=== PATIENT | male | born 1970 | race Caucasian/White ===

== ENCOUNTER → 2016-08-16 | Outpatient (REF) | payer MEDICARE, MEDICAID ==
[~2016-08-16] MED LIST: /ESOM40CA OR; /GLIM4TA OR; /LOR25TA OR; ANDROGEL 1% TOP; ANDROGEL TOP; ASPI81TA83 OR; CARV12.5 OR; CRES20TA OR; FLEXERIL PO; HUMUINJ SC; HUMULIN 70/30 SC; JANUVIA PO; KLOR10TA OR; LASI20TA OR; LISI2.5T OR; LOVAZA PO; METF500T4 OR; NATEGLINIDE PO; NEUR300C OR; NIAS500T2 OR; NITRO STAT SL; OMEP20TA7 OR; PLAV75TA2 OR; PRO AIR INHALER INH; PROZ20CA OR; SENN15TA2 PO; TIZA4TAB OR; TRIC145T19 OR
[2016-08-16 13:50] LABS: ANION GAP 11 MEQ/L (8-16); BLOOD UREA NITROGEN 18 MG/DL (7-18); CALCIUM LEVEL 9.8 MG/DL (8.5-10.1); CARBON DIOXIDE LEVEL 24 MEQ/L (21-32); CHLORIDE LEVEL 103 MEQ/L (98-107); CREATININE FOR GFR 0.99 MG/DL (0.70-1.30); FREE T4 0.85 NG/DL (0.76-1.46); GLOMERULAR FILTRATION RATE > 60.0 (>60); GLUCOSE, FASTING 221 MG/DL (70-105); POTASSIUM SERUM 4.8 MEQ/L (3.5-5.1); SODIUM LEVEL 138 MEQ/L (136-145)
[2016-08-16 13:56] LABS: PROLACTIN 2.9 NG/ML (2.1-17.7)
[2016-08-16 13:57] LABS: FOLLICLE STIMULATING HORMONE 19.5 mIU/mL (1.4-18.1); LUTEINIZING HORMONE 3.4 mIU/mL (1.5-9.3)
== END ==
LOC: M SFHCPLAZ 10:57
PROVIDERS: ATTEND Physician Assistant Medical
DX: R23.2 Flushing (principal); E11.69 Type 2 diabetes mellitus with other specified complication
CPT/HCPCS: 36415; 80048; 83001; 83002; 83036; 84146; 84439; 84443; G0463

== ENCOUNTER 2016-08-29 14:07 | Outpatient (RCR) | payer MEDICARE, MEDICAID | END 2016-09-06 | LOC: M CR 14:07 | PROVIDERS: ATTEND Internal Medicine Cardiovascular Disease | DX: Z98.61 Coronary angioplasty status (principal) ==

== ENCOUNTER 2016-09-07 09:17 | Outpatient (RCR) | payer MEDICARE, MEDICAID ==
[2016-10-05] MEDS ORDERED: MAGN400C2 PO (10:40)
[2016-10-05] MEDS ORDERED: CRES40TA PO (10:40)
[2016-10-05] MEDS ORDERED: VASC1CAP2 PO (10:40)
[2016-10-05] MEDS ORDERED: OXYB10TA PO (10:40)
[2016-10-05] MEDS ORDERED: flomax (10:40)
[2016-10-05] MEDS ORDERED: LANTINJ4 SC (10:42)
== END 2016-10-04 ==
LOC: M CR 09:17
PROVIDERS: ATTEND Internal Medicine Cardiovascular Disease
DX: Z98.61 Coronary angioplasty status (principal)

== ENCOUNTER → 2016-09-26 | Outpatient (REF) | payer MEDICARE, MEDICAID | LOC: M SFHCPLAZ 08:46 | PROVIDERS: ATTEND Physician Assistant Medical | DX: E11.69 Type 2 diabetes mellitus with other specified complication (principal) ==

== ENCOUNTER 2016-10-05 10:06 | Emergency (ER) | payer MEDICARE, MEDICAID ==
[~2016-10-05] VITALS: Ht 175.3 cm; Wt 84.4 kg
[2016-10-05] MEDS ORDERED: VASC1CAP2 PO (10:40)
[2016-10-05] MEDS ORDERED: MAGN400C2 PO (10:40)
[2016-10-05] MEDS ORDERED: OXYB10TA PO (10:40)
[2016-10-05] MEDS ORDERED: flomax (10:40)
[2016-10-05] MEDS ORDERED: CRES40TA PO (10:40)
[2016-10-05] MEDS ORDERED: LANTINJ4 SC (10:42)
[2016-10-05 11:34] VITALS: BP 136/88
== END 2016-10-05 11:51 | disposition home or self-care (01) ==
LOC: M ED 11:44
DX: R51 Headache (principal); E11.9 Type 2 diabetes mellitus without complications; I10 Essential (primary) hypertension; J44.9 Chronic obstructive pulmonary disease, unspecified; I25.2 Old myocardial infarction; Z95.1 Presence of aortocoronary bypass graft; Z79.899 Other long term (current) drug therapy; Z79.82 Long term (current) use of aspirin; Z79.01 Long term (current) use of anticoagulants; Z79.4 Long term (current) use of insulin; Z79.84 Long term (current) use of oral hypoglycemic drugs; Z91.012 Allergy to eggs; F17.210 Nicotine dependence, cigarettes, uncomplicated

== ENCOUNTER → 2016-10-13 | Outpatient (REF) | payer MEDICARE, MEDICAID ==
[~2016-10-13] MED LIST changes: +CRES40TA PO; +LANTINJ4 SC; +MAGN400C2 PO; +OXYB10TA PO; +VASC1CAP2 PO; +flomax
[2016-10-13 15:21] LABS: BASO # 0.1 K/mm3 (0.0-0.2); BASO % 0.8 % (0.0-1.0); EOS # 0.5 K/mm3 (0.0-0.50); EOS % 4.3 % (0.0-3.0); LARGE UNSTAINED CELL # 0.2 K/mm3 (0.0-0.4); LARGE UNSTAINED CELL % 1.6 % (0.0-4.0); LYMPH # 2.5 K/mm3 (1.5-4.5); LYMPH % 22.5 % (24.0-44.0); MEAN CORPUSCULAR HGB CONC 35.1 g/dl (32.0-36.5); MEAN CORPUSCULAR VOLUME 85.4 fl (80.0-96.0); MONO # 0.6 K/mm3 (0.0-0.8); NEUTROPHILS # 7.3 K/mm3 (1.8-7.7); NEUTROPHILS % 65.7 % (36.0-66.0); PLATELET COUNT, AUTOMATED 270 k/mm3 (150-450); RED CELL DISTRIBUTION WIDTH 12.6 % (11.5-14.5); WHITE BLOOD COUNT 11.1 K/mm3 (4.0-10.0)
[2016-10-13 15:48] LABS: ANION GAP 10 MEQ/L (8-16); BLOOD UREA NITROGEN 13 MG/DL (7-18); CALCIUM LEVEL 9.1 MG/DL (8.5-10.1); CARBON DIOXIDE LEVEL 26 MEQ/L (21-32); CHLORIDE LEVEL 103 MEQ/L (98-107); CREATININE FOR GFR 0.94 MG/DL (0.70-1.30); GLOMERULAR FILTRATION RATE > 60.0 (>60); GLUCOSE, FASTING 269 MG/DL (70-105); POTASSIUM SERUM 4.4 MEQ/L (3.5-5.1); SODIUM LEVEL 139 MEQ/L (136-145)
== END ==
LOC: M SFHCPLAZ 13:06
PROVIDERS: ATTEND Physician Assistant Medical
DX: N52.9 Male erectile dysfunction, unspecified (principal)

== ENCOUNTER → 2016-11-23 | Outpatient (REF) | payer MEDICARE, MEDICAID ==
[2016-11-23 16:11] LABS: BASO # 0.2 K/mm3 (0.0-0.2); BASO % 1.4 % (0.0-1.0); EOS # 0.5 K/mm3 (0.0-0.50); EOS % 3.9 % (0.0-3.0); LARGE UNSTAINED CELL # 0.2 K/mm3 (0.0-0.4); LARGE UNSTAINED CELL % 1.2 % (0.0-4.0); LYMPH % 30.3 % (24.0-44.0); MEAN CORPUSCULAR HEMOGLOBIN 29.9 pg (27.0-33.0); MEAN CORPUSCULAR HGB CONC 34.5 g/dl (32.0-36.5); MEAN CORPUSCULAR VOLUME 86.9 fl (80.0-96.0); MONO # 0.9 K/mm3 (0.0-0.8); MONO % 7.1 % (0.0-5.0); NEUTROPHILS # 7.1 K/mm3 (1.8-7.7); PLATELET COUNT, AUTOMATED 297 k/mm3 (150-450); RED CELL DISTRIBUTION WIDTH 12.9 % (11.5-14.5); WHITE BLOOD COUNT 12.6 K/mm3 (4.0-10.0)
[2016-11-23 16:24] LABS: ANION GAP 8 MEQ/L (8-16); BLOOD UREA NITROGEN 18 MG/DL (7-18); CALCIUM LEVEL 9.4 MG/DL (8.5-10.1); CARBON DIOXIDE LEVEL 25 MEQ/L (21-32); CHLORIDE LEVEL 103 MEQ/L (98-107); CREATININE FOR GFR 1.03 MG/DL (0.70-1.30); GLOMERULAR FILTRATION RATE > 60.0 (>60); GLUCOSE, FASTING 90 MG/DL (70-105); POTASSIUM SERUM 4.4 MEQ/L (3.5-5.1); SODIUM LEVEL 136 MEQ/L (136-145)
[2016-11-23 18:09] LABS: ALBUMIN/GLOBULIN RATIO 1.25 (1.00-1.93); ALKALINE PHOSPHATASE 97 U/L (45-117); ALT/SGPT 19 U/L (12-78); AMYLASE 37 U/L (25-115); AST/SGOT 6 U/L (15-37); BILIRUBIN,DIRECT < 0.1 MG/DL (0.0-0.2); BILIRUBIN,TOTAL 0.4 MG/DL (0.2-1.0); TOTAL PROTEIN 7.2 GM/DL (6.4-8.2)
== END ==
LOC: M SFHCPLAZ 14:18
PROVIDERS: ATTEND Physician Assistant Medical
DX: D72.829 Elevated white blood cell count, unspecified (principal); R10.9 Unspecified abdominal pain

== ENCOUNTER → 2016-11-23 | Outpatient (CLI) | payer MEDICARE, MEDICAID ==
[~2016-11-23] MED LIST changes: +AMIT10TA PO; +ASPI1TAB PO; +CARV12.5 PO; +DEXI60CA PO; +FENO145T PO; +FLOM5CAP PO; +GABA-282 PO; +INSUHUMDS SC; +INSULANT SC; +LISI2.5T3 PO; +MAGN400T5 PO; +MELO15TA4 PO; +METF1000 PO; +METF500T PO; -METF500T4 OR; +METF500T4 PO; +NICO21PAT TD; +PLAV75TA38 PO; -PROZ20CA OR; +PROZ20CA PO; +PROZ40CA PO; +TOPA25TA10 PO; -flomax; +flomax PO
--- NOTE | 2016-11-23 15:41 | REP ---
CT study of the abdomen and pelvis without IV or oral contrast: Renal stone protocol. History: Left-sided flank pain. No comparison CT study. CT findings: Preliminary sand screener radiograph shows pacemaker leads in the heart. The bowel gas pattern is normal. The lung bases are clear on axial CT images. There is no evidence of pleural effusion or upper abdominal ascites. The liver and the spleen are normal in size and homogeneous in texture. No adrenal lesion is seen on either side. The pancreas and gallbladder are unremarkable. Normal caliber aorta is seen with moderate vascular calcification. There is no evidence of hydronephrosis or intrarenal calculus in either kidney. No mass or obvious cyst is seen. No retroperitoneal mass or adenopathy is observed. There is evidence of a tiny appendicolith in an otherwise normal air-filled appendix without inflammation or dilation. Seminal vesicles, prostate, and urinary bladder are unremarkable. There is a right inguinal hernia transmitting a moderate amount of right lower quadrant abdominal fat. The tip of the cecum is at the upper margin of the dilated inguinal canal. Small and large intestinal bowel loops are otherwise unremarkable. Bone window settings show no bony destructive lesion. Impression: 1. No urinary tract calculus seen. 2. Right inguinal hernia transmitting abdominal fat into the scrotum. 3. Small appendicolith in an otherwise normal appendix. 4. Otherwise unremarkable CT study abdomen and pelvis. Signed by Everett Kent MD 11/23/2016 05:05 P
== END ==
LOC: M RAD 14:58
PROVIDERS: ATTEND Physician Assistant Medical
DX: K40.90 Unilateral inguinal hernia, without obstruction or gangrene, not specified as recurrent (principal); R10.9 Unspecified abdominal pain; D72.829 Elevated white blood cell count, unspecified
CPT/HCPCS: 36415; 74176; 80048; 80076; 81001; 82150; 83690; 85025; G0463

== ENCOUNTER 2016-11-28 15:08 | Inpatient (IN) | payer MEDICARE, MEDICAID ==
[~2016-11-28] VITALS: Ht 175.3 cm; Wt 83.8 kg
[2016-11-28] MEDS: ROSUVASTATIN 10 MG TAB (CRESTOR) PO SCH
[~2016-11-28 15:08] MED LIST changes: -AMIT10TA PO; -ASPI1TAB PO; -CARV12.5 PO; -DEXI60CA PO; -FENO145T PO; -FLOM5CAP PO; -GABA-282 PO; -INSUHUMDS SC; -INSULANT SC; -LISI2.5T3 PO; -MAGN400T5 PO; -MELO15TA4 PO; -METF1000 PO; -METF500T PO; -NICO21PAT TD; -PLAV75TA38 PO; -PROZ40CA PO; -TOPA25TA10 PO
[2016-11-28] MEDS ORDERED: DEXI60CA PO ×2 (15:32→18:15)
--- NOTE | 2016-11-28 16:44 | REP ---
CT HEAD WITHOUT CONTRAST: HISTORY: Right sided headaches. COMPARISON: 07/13/2016, which showed volume loss. Today's examination shows no change in the appearance of the brain when compared to the noncontrast enhanced portion of the last exam. Once again, there is frontal volume loss, status quo. The ventricles and sulci are unchanged. There is no shift of the midline structures. There is no evidence an acute intracranial hemorrhagic or nonhemorrhagic event. There is no skull fracture. The imaged paranasal sinuses and mastoid air cells are clear. IMPRESSION: Stable examination from 07/13/2016. Signed by Wesley Raymond DO 11/29/2016 09:33 A
[2016-11-28] MEDS ORDERED: NS 1,000 ML IV ONE (17:00)
[2016-11-28 17:08] LABS: BASO # 0.1 K/mm3 (0.0-0.2); EOS # 0.4 K/mm3 (0.0-0.50); EOS % 5.2 % (0.0-3.0); LARGE UNSTAINED CELL # 0.1 K/mm3 (0.0-0.4); LARGE UNSTAINED CELL % 1.6 % (0.0-4.0); LYMPH # 2.6 K/mm3 (1.5-4.5); LYMPH % 31.8 % (24.0-44.0); MEAN CORPUSCULAR HEMOGLOBIN 30.5 pg (27.0-33.0); MEAN CORPUSCULAR HGB CONC 34.3 g/dl (32.0-36.5); MEAN CORPUSCULAR VOLUME 88.7 fl (80.0-96.0); MONO # 0.5 K/mm3 (0.0-0.8); MONO % 6.5 % (0.0-5.0); NEUTROPHILS # 4.4 K/mm3 (1.8-7.7); PLATELET COUNT, AUTOMATED 238 k/mm3 (150-450); RED CELL DISTRIBUTION WIDTH 12.8 % (11.5-14.5); WHITE BLOOD COUNT 8.2 K/mm3 (4.0-10.0)
[2016-11-28] MEDS ORDERED: TOPIRAMATE (TopAMAX) 25 MG TAB PO ONE (17:15)
[2016-11-28] MEDS ORDERED: ONDANSETRON 4MG/2ML VIAL (J2405) IV ONE (17:15)
[2016-11-28] MEDS ORDERED: MORPHINE 4 MG/ML 1ML SYRINGE IV ONE (17:15)
[2016-11-28] MEDS ORDERED: FENO145T PO (18:06)
[2016-11-28] MEDS ORDERED: PLAV75TA38 PO (18:06)
[2016-11-28] MEDS ORDERED: CARV12.5 PO (18:06)
[2016-11-28] MEDS ORDERED: FLOM5CAP PO (18:06)
[2016-11-28] MEDS ORDERED: LISI2.5T3 PO (18:06)
[2016-11-28] MEDS ORDERED: MAGN400T5 PO (18:10)
[2016-11-28] MEDS ORDERED: GABA-282 PO (18:10)
[2016-11-28] MEDS ORDERED: ASPI1TAB PO (18:10)
[2016-11-28] MEDS ORDERED: MELO15TA4 PO (18:10)
[2016-11-28] MEDS ORDERED: METF500T PO (18:10)
[2016-11-28] MEDS ORDERED: METF1000 PO (18:10)
[2016-11-28] MEDS ORDERED: VASC1CAP2 PO (18:15)
[2016-11-28] MEDS ORDERED: PROZ40CA PO (18:17)
[2016-11-28] MEDS ORDERED: INSULANT SC (18:24)
[2016-11-28] MEDS ORDERED: INSUHUMDS SC (18:24)
[2016-11-28] MEDS ORDERED: CRES40TA PO (18:24)
[2016-11-28] MEDS ORDERED: ACETAMINOPHEN TAB 650MG DOSE (2X325MG) PO PRN (19:45)
[2016-11-28] MEDS ORDERED: NICOTINE 14 MG/24 HR TRANSDERMAL TD PRN (19:45)
[2016-11-28] MEDS ORDERED: MORPHINE 2 MG/ML 1ML SYRINGE IV ONE (19:45)
[2016-11-28 20:20] LABS: ANION GAP 7 MEQ/L (8-16); BLOOD UREA NITROGEN 12 MG/DL (7-18); CALCIUM LEVEL 8.5 MG/DL (8.5-10.1); CARBON DIOXIDE LEVEL 26 MEQ/L (21-32); CHLORIDE LEVEL 104 MEQ/L (98-107); CREATININE FOR GFR 1.01 MG/DL (0.70-1.30); GLOMERULAR FILTRATION RATE > 60.0 (>60); GLUCOSE, FASTING 315 MG/DL (70-105); SODIUM LEVEL 137 MEQ/L (136-145)
[2016-11-28 20:30] LABS: VITAMIN B12 LEVEL 224 PG/ML (247-911)
[2016-11-28 23:00] VITALS: BP 149/85
--- NOTE | 2016-11-28 23:45 | HPE ---
DATE OF ADMISSION: 11/28/2016 REASON FOR ADMISSION: Headache and face numbness. HISTORY OF PRESENT ILLNESS: The patient is a 46-year-old male with past medical history significant for chronic obstructive pulmonary disease (COPD), diabetes, hypertension, hyperlipidemia, depression, presented to the emergency room complaining of right-sided headache with right-sided facial numbness and right foot draw up with ataxia. The patient stated symptoms started around yesterday. He was nauseated, had one episode of vomiting. This morning the patient continued to have right-sided headache with facial numbness and ataxia, which is new. The patient denies any slurred speech any other focal deficits. Denies any blurry vision or change in vision. In the emergency room, the patient underwent a CT scan of the head which was negative for any acute abnormality. Exam was stable when compared to CT scan done July 13, 2016. Neurologist, Dr. Smith was consulted and he agreed to see the patient in consultation. He recommended the patient be given Topamax 50 mg by mouth twice a day. Hospitalist was called for admission. REVIEW OF SYSTEMS: 12-point review of systems obtained all of which was negative except for those mentioned above. PAST MEDICAL HISTORY: Significant for: COPD. Type 2 diabetes. Hyperlipidemia. Hypertension. Depression. Coronary artery disease, status post stenting. PAST SURGICAL HISTORY: Significant for: Cardiac catheterization. Coronary artery bypass graft (CABG). Vasectomy. Left wrist surgery. 2:11 knee replacement. SOCIAL HISTORY: The patient smokes two packs per day for the past 25 years and drinks occasionally. ALLERGIES: No known drug allergies. HOME MEDICATIONS: Include: - aspirin 81 mg by mouth daily - carvedilol 12.5 mg by mouth twice a day - Plavix 75 mg by mouth daily - Dexilant 60 mg by mouth daily - fenofibrate 1.5 mg by mouth daily - Prozac 40 mg by mouth daily - gabapentin 300 mg by mouth three times a day - Lantus 00 units subcutaneously at bedtime - Humalog sliding scale with meals and at bedtime - lisinopril 2.5 mg daily - magnesium oxide 5 mg daily - meloxicam 50 mg by mouth daily - metformin 1000 mg by mouth twice a day and 500 mg by mouth in the morning - Crestor 40 mg by mouth at bedtime - Flomax 0.4 mg by mouth daily FAMILY HISTORY: Noncontributory. PHYSICAL EXAMINATION: Vitals on admission: Temperature 97.6, pulse 85, respiratory rate 18, blood pressure 115/69, pulse ox 95% on room air. HEENT: Pupils equal, round and reactive to light and accommodation. Neck is supple. No jugular venous distention (JVD). Lungs: Clear to auscultation bilaterally. Cardiac: Regular rate and rhythm. Abdomen: Soft, nontender, nondistended. Extremities: Mild weakness noted over right extremity when compared to the left side. No other focal deficits appreciated. Neuro: Cranial nerves II-XII grossly intact. LABORATORY FINDINGS: Sodium 137, potassium 4, chloride 104. BUN 12, creatinine 1.01. Fasting glucose 315. Vitamin B12 224, calcium 8.5. WBC 8.2, hemoglobin 14.6, hematocrit 42.6. Platelet count 238. CT of the head as described above. ASSESSMENT/PLAN: 1. Headache with right-sided facial numbness and ataxia. CT scan was unremarkable. We were unable to obtain an MRI due to the patient having a pacemaker. Dr. Smith from neurology has agreed to see the patient in consultation. Recommended Topamax 50 mg by mouth twice a day. We will continue to do neuro checks every 4 hours and will continue to monitor patient on telemetry to rule out any cardiac arrhythmia. 2. History of coronary artery disease. Will continue the patient's beta renita, aspirin, Plavix as well as Crestor. 3. History of insulin-dependent diabetes. We will start patient on insulin sliding scale and consistent carbohydrate diet. We will hold Lantus in the meantime given patient is nauseated and unable to tolerate a diet. We will discuss with primary care team in the morning to decide an appropriate dose. 4. History of hypertension. We will resume the patient's home medication. 5. History of COPD. The patient is not normally on home oxygen. We will continue to monitor. The patient currently having oxygen saturations above 90%. 6. History of depression. Continue the patient's home medications. 7. History of hyperlipidemia. 8. Deep venous thrombosis (DVT), Sequential compression devices (SCDs) while in bed. The patient will be seen by Dr. Tyson in the morning.
[2016-11-28] MEDS: CARVedilol 12.5 MG TAB PO SCH (23:52)
[2016-11-28] MEDS: GABAPENTIN 300 MG CAP PO SCH (23:53)
[2016-11-28] MEDS: NORCO, ANEXSIA 5/325MG TABLET (HYDROcodone/ACETAMINOPHEN) PO PRN (23:53)
[2016-11-29] MEDS: NORCO, ANEXSIA 5/325MG TABLET (HYDROcodone/ACETAMINOPHEN) PO PRN ×4 (03:48→22:05)
[2016-11-29 04:00] VITALS: BP 117/82
[2016-11-29 05:08] LABS: MEAN CORPUSCULAR HEMOGLOBIN 31.1 pg (27.0-33.0); MEAN CORPUSCULAR HGB CONC 35.1 g/dl (32.0-36.5); MEAN CORPUSCULAR VOLUME 88.6 fl (80.0-96.0); WHITE BLOOD COUNT 8.7 K/mm3 (4.0-10.0)
[2016-11-29 05:30] LABS: ALBUMIN/GLOBULIN RATIO 1.03 (1.00-1.93); ALKALINE PHOSPHATASE 77 U/L (45-117); ALT/SGPT 14 U/L (12-78); ANION GAP 8 MEQ/L (8-16); AST/SGOT 10 U/L (15-37); BILIRUBIN,TOTAL 0.3 MG/DL (0.2-1.0); BLOOD UREA NITROGEN 13 MG/DL (7-18); CALCIUM LEVEL 7.8 MG/DL (8.5-10.1); CARBON DIOXIDE LEVEL 23 MEQ/L (21-32); CHLORIDE LEVEL 105 MEQ/L (98-107); CREATININE FOR GFR 0.93 MG/DL (0.70-1.30); GLOMERULAR FILTRATION RATE > 60.0 (>60); GLUCOSE, FASTING 257 MG/DL (70-105); MAGNESIUM LEVEL 1.6 MG/DL (1.8-2.4); POTASSIUM SERUM 4.3 MEQ/L (3.5-5.1); SODIUM LEVEL 136 MEQ/L (136-145); TOTAL PROTEIN 5.9 GM/DL (6.4-8.2)
[2016-11-29 08:00] VITALS: BP 143/97
[2016-11-29] MEDS ORDERED: NORCO, ANEXSIA 5/325MG TABLET (HYDROcodone/ACETAMINOPHEN) PO ONE (08:30)
[2016-11-29] MEDS ORDERED: DEXTROSE 50% 50 ML SYRINGE IV PRN (08:45)
[2016-11-29] MEDS ORDERED: GLUCAGON FOR INJ 1 MG VIAL (J1610) SC PRN (08:45)
[2016-11-29] MEDS ORDERED: GLUCOSE 4 GM CHEW TABLET PO PRN (08:45)
--- NOTE | 2016-11-29 08:46 | IPNPDOC ---
Subjective Date Seen The patient was seen on 11/29/16. Subjective Chief Complaint/HPI The patient is a 46-year-old male admitted with a reason for visit of Headache. Events since last encounter Pt with Right sided headache. Unchanged. Denies any UE or LE paresthesias or weakness. Denies CP, SOB, Abd pain. Constitutional: Denies: Chills, Fever Pulmonary: Denies: Dyspnea Cardiovascular: Denies: Chest Pain Gastrointestinal: Denies: Abdominal Pain, Nausea, Vomiting Neurological: Denies: Change in speech, Confusion, Numbness, Weakness Objective Physical Examination General Exam: Positive: Alert, No Acute Distress Eye Exam: Positive: PERRLA ENT Exam: Positive: Atraumatic, Tongue Midline Neck Exam: Positive: Supple, Negative: JVD Chest Exam: Positive: Clear to auscultation Heart Exam: Positive: Rate Normal, Regular Rhythm Abdomen Exam: Positive: Normal bowel sounds, Soft, Negative: Tenderness Neuro Exam: Positive: Normal Speech, Sensation Intact, Strength at 5/5 X4 ext Assessment /Plan Problems (1) Headache Status: Acute Problem Specific Plan: Consult Specialist, Monitor Clinically Problem Text: Pt still with right sided temporal headache. He states headache has been present for three weeks but worse over past few days. Notes some blurry vision that has been present for past three weeks too. Dr Smith from Neuro was consulted. He initially suggested Starting Topamax 50 mg BID. I spoke to him again today and he advised increasing the Topamax to 100mg BID. He also suggested starting amitriptyline [address] Smith also suggesting getting a new head CT today. Pt has a pacemaker and therefore cannot have MRI. Pt had received morphine in the ER. He has been getting [facility] for pain control. (2) Ataxia Status: Acute Problem Specific Plan: Consult Specialist, Monitor Clinically Problem Text: See above. Dr Smith consulted and will see him. (3) CAD (coronary artery disease) Status: Chronic Problem Specific Plan: Monitor Clinically Problem Text: On Aspirin and Plavix. On statin. On beta renita. (4) DM2 (diabetes mellitus, type 2) Status: Chronic Problem Specific Plan: Monitor Clinically, Repeat Labs Problem Text: Pt is normally on Humalog and Lantus 85 units daily as outpt. He is currently not on any coverage. Will start SSI with FS qac and qhs. Consider starting the basal at lower dose. (5) HTN (hypertension) Status: Chronic Problem Specific Plan: Monitor Clinically Problem Text: On Lisinopril and Coreg. (6) COPD (chronic obstructive pulmonary disease) Status: Chronic Problem Specific Plan: Monitor Clinically Problem Text: Respiratory status stable. (7) Depression Status: Chronic Problem Specific Plan: Monitor Clinically Problem Text: On Prozac. (8) Hyperlipidemia Status: Chronic Problem Specific Plan: Monitor Clinically Problem Text: On Crestor. (9) Tobacco use Status: Chronic Problem Text: Has nicotine patch. Plan/VTE VTE Prophylaxis Ordered?: No (Has SCDs and TEDs ordered) VS, I&O, 24H, Fishbone Vital Signs/I&O Vital Signs Date Time Temp Pulse Resp B/P Pulse Ox O2 Delivery O2 Flow Rate FiO2 11/29/16 04:20 16 11/29/16 04:00 Room Air 11/29/16 04:00 98.1 67 117/82 94 I&O- Last 24 Hours up to 6 AM 11/29/16 06:00 Intake Total 360 ml Balance 360 ml Laboratory Data 24H LABS Laboratory Tests 2 11/28/16 16:57: White Blood Count 8.2, Red Blood Count 4.80, Hemoglobin 14.6, Hematocrit 42.6, Mean Corpuscular Volume 88.7, Mean Corpuscular Hemoglobin 30.5, Mean Corpuscular Hemoglobin Concent 34.3, Red Cell Distribution Width 12.8, Platelet Count 238, Neutrophils (%) (Auto) 54.0, Lymphocytes (%) (Auto) 31.8, Monocytes ( %) (Auto) 6.5H, Eosinophils (%) (Auto) 5.2H, Basophils (%) (Auto) 1.0, Neutrophils # (Auto) 4.4, Lymphocytes # (Auto) 2.6, Monocytes # (Auto) 0.5, Eosinophils # (Auto) 0.4, Basophils # (Auto) 0.1, Large Unclassified Cells # 0.1 , Large Unclassified Cells % 1.6 11/28/16 17:07: Bedside Glucose (Misc Panel) 349H 11/28/16 19:45: Anion Gap 7L, Blood Urea Nitrogen 12, Creatinine 1.01, Sodium Level 137, Potassium Level 4.0, Chloride Level 104, Carbon Dioxide Level 26, Calcium Level 8.5, Glomerular Filtration Rate > 60.0, Vitamin B12 Level 224L 11/29/16 04:40: Anion Gap 8, Blood Urea Nitrogen 13, Creatinine 0.93, Sodium Level 136, Potassium Level 4.3, Chloride Level 105, Carbon Dioxide Level 23, Calcium Level 7.8L, Glomerular Filtration Rate > 60.0, Aspartate Amino Transf (AST/SGOT) 10L, Alanine Aminotransferase (ALT/SGPT) 14, Alkaline Phosphatase 77, Total Bilirubin 0.3, Total Protein 5.9L, Albumin 3.0L, Albumin/Globulin Ratio 1.03, Magnesium Level 1.6L CBC/BMP Laboratory Tests 11/28/16 16:57 Red Blood Count 4.80, Mean Corpuscular Volume 88.7, Mean Corpuscular Hemoglobin 30.5, Mean Corpuscular Hemoglobin Concent 34.3, Red Cell Distribution Width 12.8 , Neutrophils (%) (Auto) 54.0, Lymphocytes (%) (Auto) 31.8, Monocytes (%) (Auto ) 6.5 H, Eosinophils (%) (Auto) 5.2 H, Basophils (%) (Auto) 1.0, Neutrophils # ( Auto) 4.4, Lymphocytes # (Auto) 2.6, Monocytes # (Auto) 0.5, Eosinophils # (Auto ) 0.4, Basophils # (Auto) 0.1 11/28/16 19:45 Calcium Level 8.5 11/29/16 04:40 Red Blood Count 4.73, Mean Corpuscular Volume 88.6, Mean Corpuscular Hemoglobin 31.1, Mean Corpuscular Hemoglobin Concent 35.1, Red Cell Distribution Width 13.0 , Calcium Level 7.8 L, Aspartate Amino Transf (AST/SGOT) 10 L, Alanine Aminotransferase (ALT/SGPT) 14, Alkaline Phosphatase 77, Total Bilirubin 0.3, Total Protein 5.9 L, Albumin 3.[address] [place] RPA-C Nov 29, 2016 08:46
[2016-11-29] MEDS ORDERED: TOPIRAMATE (TopAMAX) 25 MG TAB PO SCH (09:00)
--- NOTE | 2016-11-29 09:14 | ECGEPIP ---
Stationary ECG Study [facility] - ED Test Date: 2016-11-28 Pat Name: SERENITY RIVER Department: Room: - Gender: M Report Specialist: ryan : 1970 Requested By: DRU Srinivasan PA-C Order Number: [id number] Reading MD: Raul De La Cruz Measurements Intervals [place] Rate: 62 P: 16 [place]: 148 QRS: 115 QRSD: 171 T: -85 QT: 510 QTc: 522 Interpretive Statements ELECTRONIC VENTRICULAR PACEMAKER ABNORMAL RHYTHM ECG SIMILAR TO 08/02/16 Electronically Signed On 11-29-2016 9:13:51 EDT by Raul De La Cruz
[2016-11-29] MEDS: TAMSULOSIN 0.4 MG CAP PO SCH (09:58)
[2016-11-29] MEDS: ASPIRIN 81 MG ENTERIC TAB PO SCH (09:58)
[2016-11-29] MEDS: CARVedilol 12.5 MG TAB PO SCH ×2 (09:58→20:12)
[2016-11-29] MEDS: CLOPIDOGREL 75 MG TAB PO SCH (09:59)
[2016-11-29] MEDS: GABAPENTIN 300 MG CAP PO SCH ×3 (09:59→20:13)
[2016-11-29] MEDS: MELOXICAM (MOBIC) 7.5 MG TAB PO SCH (09:59)
[2016-11-29] MEDS: MAGNESIUM OXIDE 400 MG TAB (MAG-OX) PO SCH (09:59)
[2016-11-29] MEDS: TOPIRAMATE (TopAMAX) 100 MG TAB PO SCH ×2 (10:00→20:13)
[2016-11-29] MEDS: LISINOPRIL *2.5 MG* TAB PO SCH (10:00)
[2016-11-29] MEDS: FENOFIBRATE 145 MG TAB (TRICOR) PO SCH (10:00)
[2016-11-29] MEDS: FLUoxetine 20 MG CAP PO SCH (10:00)
--- NOTE | 2016-11-29 10:24 | REP ---
CT Head without contrast HISTORY: Headache COMPARISON: 11/28/2016 A small area of decreased attenuation is present in the posterior right parietal lobe. This represents an acute infarction. There is no intraparenchymal hemorrhage, mass or midline shift. T the ventricular system and cortical sulci are dilated consistent with minimal volume loss. There is no extra cerebral collection. There is no fracture. The visualized sinuses are clear. IMPRESSION: 1. Small acute right parietal lobe infarction. 2. Minimal volume loss. Signed by David Joel MD 11/29/2016 10:16 A
[2016-11-29 10:45] VITALS: BP 119/76
[2016-11-29 12:00] VITALS: BP 109/66
[2016-11-29] MEDS: HumaLOG INSULIN (NovoLOG) PER UNIT SC SCH ×3 (12:37→20:16)
[2016-11-29] MEDS: ENOXAPARIN 40 MG/0.4 ML SYRINGE (J1650) SC SCH (12:37)
[2016-11-29] MEDS ORDERED: SLF 3 ML SYR IV PRN (15:00)
--- NOTE | 2016-11-29 15:18 | IPN ---
DATE: 11/29/2016 This note supplements the note from TIFFANIE Hubbard from earlier today. I saw Dae Shipman in the intensive care unit (ICU). He was admitted with intractable right temporal pain, it is described as "excruciating" and discreetly located to approximately a 5-6 cm circular area over the right restorationist. He says if he rubs that area it makes the pain feel better. It radiates from the right occipital area over the right scalp above the ear to the right restorationist. There is no nausea or vomiting with it. He has visual symptoms but they are difficult to understand. He says he has diplopia and has had this since the onset of his symptoms, however closing one eye does not make the diplopia go away. He says it is not a blurriness or fuzziness, that it is true double vision, but it is still present with monocular vision. He also has had more floaters recently, more in the right eye than the left. He recently had a middle fragment to the right eye that was removed by an inspector finishing. There is no sign of any retained metallic fragments on his CT scan. He cannot have a MRI scan because of his pacemaker status. On examination, he has no facial droop or weakness. The right eye is a little erythematous. It is tender to palpate over the right restorationist, but there is no palpable temporal artery nor any rash. Percussion over the right occipital nerve causes pain to radiate over the right side of the scalp to the right restorationist area and reproduces his pain. There is no facial droop or weakness. The lungs are clear. Heart regular rhythm. He is slightly weak in the right upper extremity on biceps and triceps testing. He can stand. Romberg is positive with falling more to the left, though generally unstable. Coordination is normal in [id number] testing. Strength in the feet is normal. Sedimentation rate was normal. CT scan of the brain, compared to yesterday, showed either a new right parietal infarction which was acute or just not recognized on the first CT scan. IMPRESSION: The patient has had a right parietal stroke. This is clinically consistent with his left upper extremity weakness. It is not, however, consistent with the severe right temporal pain that he has, which frankly seems more like occipital neuritis. I was concerned about temporal arteritis. I ordered a stat sedimentation rate and C-reactive protein (CRP) and both are normal with a sedimentation rate of only 6. MRI scan would be helpful, but he has a pacemaker (recent published study showed that MRI scan of a non-thoracic area is safe for patients with a pacemaker, but this is not yet established practice and I do not feel comfortable ordering it.) The diplopia is confusing as it is still present with monocular vision which does not seem physiologically understandable. Neurology consult is pending. At this point the patient is on aspirin and Plavix for vascular protection, Lovenox for deep venous thrombosis (DVT) prophylaxis. We have held off on his basal insulin as he has had poor oral intake, he is just on sliding scale which on an enforced diabetic diet has required scant coverage.
[2016-11-29 16:00] VITALS: BP 121/63
[2016-11-29 20:00] VITALS: BP 118/62
[2016-11-29] MEDS: ROSUVASTATIN 10 MG TAB (CRESTOR) PO SCH (20:13)
[2016-11-29] MEDS: AMITRIPTYLINE 10 MG TAB PO SCH (20:13)
[2016-11-29] MEDS ORDERED: LEVEMIR (INSULIN DETEMIR) 1 UNITS/0.01ML SC SCH (21:00)
[2016-11-29] MEDS: SLF 3 ML SYR IV SCH (21:34)
[2016-11-29] MEDS: OMEPRAZOLE 20 MG CAP PO SCH (22:00)
[2016-11-29] MEDS ORDERED: CALCIUM CARBONATE 500 MG CHEW U/D PO PRN (22:00)
[2016-11-30] VITALS (7 sets, daily range): BP systolic 112–130; BP diastolic 60–82
[2016-11-30] MEDS: SLF 3 ML SYR IV SCH ×3 (04:52→21:38)
[2016-11-30 05:14] LABS: MEAN CORPUSCULAR HEMOGLOBIN 30.4 pg (27.0-33.0); MEAN CORPUSCULAR HGB CONC 33.6 g/dl (32.0-36.5); MEAN CORPUSCULAR VOLUME 90.4 fl (80.0-96.0); RED CELL DISTRIBUTION WIDTH 12.9 % (11.5-14.5); WHITE BLOOD COUNT 7.4 K/mm3 (4.0-10.0)
[2016-11-30 05:36] LABS: ALBUMIN/GLOBULIN RATIO 1.03 (1.00-1.93); ALKALINE PHOSPHATASE 95 U/L (45-117); ALT/SGPT 14 U/L (12-78); ANION GAP 6 MEQ/L (8-16); AST/SGOT 7 U/L (15-37); BILIRUBIN,TOTAL 0.3 MG/DL (0.2-1.0); BLOOD UREA NITROGEN 16 MG/DL (7-18); CARBON DIOXIDE LEVEL 24 MEQ/L (21-32); CHLORIDE LEVEL 107 MEQ/L (98-107); CREATININE FOR GFR 1.09 MG/DL (0.70-1.30); GLOMERULAR FILTRATION RATE > 60.0 (>60); GLUCOSE, FASTING 302 MG/DL (70-105); MAGNESIUM LEVEL 1.8 MG/DL (1.8-2.4); POTASSIUM SERUM 4.4 MEQ/L (3.5-5.1); SODIUM LEVEL 137 MEQ/L (136-145); TOTAL PROTEIN 5.9 GM/DL (6.4-8.2)
--- NOTE | 2016-11-30 07:39 | IPNPDOC ---
Subjective Date Seen The patient was seen on 11/30/16. Subjective Chief Complaint/HPI The patient is a 46-year-old male admitted with a reason for visit of Headache. Events since last encounter Pt states he is feeling better. States headaches have resolved. States strength has improved. Denies CP, SOB, Abd pain. Constitutional: Denies: Chills, Fever Pulmonary: Denies: Dyspnea Cardiovascular: Denies: Chest Pain Gastrointestinal: Denies: Abdominal Pain Objective Physical Examination General Exam: Positive: Alert, No Acute Distress Eye Exam: Positive: PERRLA ENT Exam: Positive: Atraumatic, Tongue Midline Neck Exam: Positive: Supple, Negative: JVD Chest Exam: Positive: Clear to auscultation Heart Exam: Positive: Rate Normal, Regular Rhythm Abdomen Exam: Positive: Normal bowel sounds, Soft, Negative: Tenderness Neuro Exam: Positive: Normal Speech, Strength at 5/5 X4 ext, Sensation Intact Assessment /Plan Problems (1) Stroke Status: Acute Problem Specific Plan: Consult Specialist, Monitor Clinically Problem Text: 11/30 - Right Parietal stroke. Neurology consulted. Pt is on Aspirin and Plavix. (2) Headache Status: Acute Problem Specific Plan: Consult Specialist, Monitor Clinically Problem Text: 11/30 - Pt states headache has resolved. ESR was 6 and CRP was 0.31. Pt could not have MRI due to pacemaker. Neurology was consulted and saw the pt. On Topamax 100 mg BID and amitriptyline 10 mg QHS. 11/29 - Pt still with right sided temporal headache. He states headache has been present for three weeks but worse over past few days. Notes some blurry vision that has been present for past three weeks too. Dr Smith from Neuro was consulted. He initially suggested Starting Topamax 50 mg BID. I spoke to him again today and he advised increasing the Topamax to 100mg BID. He also suggested starting amitriptyline [address] Smith also suggesting getting a new head CT today. Pt has a pacemaker and therefore cannot have MRI. Pt had received morphine in the ER. He has been getting [facility] for pain control. (3) Ataxia Status: Acute Problem Specific Plan: Consult Specialist, Monitor Clinically Problem Text: 11/30 - Neuro following. 11/29 - See above. Dr Smith consulted and will see him. (4) CAD (coronary artery disease) Status: Chronic Problem Specific Plan: Monitor Clinically Problem Text: On Aspirin and Plavix. On statin. On beta renita. (5) DM2 (diabetes mellitus, type 2) Status: Chronic Problem Specific Plan: Monitor Clinically, Repeat Labs Problem Text: 11/30 - Pt is on SSI. Normally on Lantus 85 units daily as outpt. Will restart basal insulin at 20 units. Monitor and titrate. 11/29 - Pt is normally on Humalog and Lantus 85 units daily as outpt. He is currently not on any coverage. Will start SSI with FS qac and qhs. Consider starting the basal at lower dose. (6) HTN (hypertension) Status: Chronic Problem Specific Plan: Monitor Clinically Problem Text: On Lisinopril and Coreg. (7) COPD (chronic obstructive pulmonary disease) Status: Chronic Problem Specific Plan: Monitor Clinically Problem Text: Respiratory status stable. (8) Depression Status: Chronic Problem Specific Plan: Monitor Clinically Problem Text: On Prozac. (9) Hyperlipidemia Status: Chronic Problem Specific Plan: Monitor Clinically Problem Text: On Crestor. (10) Tobacco use Status: Chronic Problem Text: Has nicotine patch. Plan/VTE VTE Prophylaxis Ordered?: Yes (On Lovenox. Has SCDs and TEDs ordered) VS, I&O, 24H, Fishbone Vital Signs/I&O Vital Signs Date Time Temp Pulse Resp B/P (MAP) Pulse Ox O2 Delivery O2 Flow Rate FiO2 11/30/16 04:00 18 Room Air 11/30/16 04:00 97.4 63 114/66 (82) 99 I&O- Last 24 Hours up to 6 AM 11/30/16 06:00 Intake Total 1080 ml Output Total 1600 ml Balance -520 ml Laboratory Data 24H LABS Laboratory Tests 2 11/29/16 09:46: Bedside Glucose (Misc Panel) 233H 11/29/16 11:54: Erythrocyte Sedimentation Rate 6, C-Reactive Protein, Quantitative 0.31H 11/29/16 12:17: Bedside Glucose (Misc Panel) 271H 11/29/16 20:05: Bedside Glucose (Misc Panel) 245H 11/30/16 04:52: Anion Gap 6L, Glomerular Filtration Rate > 60.0, Blood Urea Nitrogen 16, Creatinine 1.09, Sodium Level 137, Potassium Level 4.4, Chloride Level 107, Carbon Dioxide Level 24, Calcium Level 8.0L, Aspartate Amino Transf (AST/SGOT) 7L, Alanine Aminotransferase (ALT/SGPT) 14, Alkaline Phosphatase 95, Total Bilirubin 0.3, Total Protein 5.9L, Albumin 3.0L, Magnesium Level 1.8, Albumin/ Globulin Ratio 1.03 CBC/BMP Laboratory Tests 11/30/16 04:52 Red Blood Count 4.57, Mean Corpuscular Volume 90.4, Mean Corpuscular Hemoglobin 30.4, Mean Corpuscular Hemoglobin Concent 33.6, Red Cell Distribution Width 12.9 , Calcium Level 8.0 L, Aspartate Amino Transf (AST/SGOT) 7 L, Alanine Aminotransferase (ALT/SGPT) 14, Alkaline Phosphatase 95, Total Bilirubin 0.3, Total Protein 5.9 L, Albumin 3.[address] [place] RPA-C Nov 30, 2016 07:39
[2016-11-30] MEDS: ENOXAPARIN 40 MG/0.4 ML SYRINGE (J1650) SC SCH (08:26)
[2016-11-30] MEDS: FLUoxetine 20 MG CAP PO SCH (08:27)
[2016-11-30] MEDS: FENOFIBRATE 145 MG TAB (TRICOR) PO SCH (08:28)
[2016-11-30] MEDS: LISINOPRIL *2.5 MG* TAB PO SCH (08:28)
[2016-11-30] MEDS: ASPIRIN 81 MG ENTERIC TAB PO SCH (08:29)
[2016-11-30] MEDS: CLOPIDOGREL 75 MG TAB PO SCH (08:29)
[2016-11-30] MEDS: CARVedilol 12.5 MG TAB PO SCH ×2 (08:29→21:39)
[2016-11-30] MEDS: GABAPENTIN 300 MG CAP PO SCH ×3 (08:29→21:38)
[2016-11-30] MEDS: MELOXICAM (MOBIC) 7.5 MG TAB PO SCH (08:29)
[2016-11-30] MEDS: MAGNESIUM OXIDE 400 MG TAB (MAG-OX) PO SCH (08:30)
[2016-11-30] MEDS: HumaLOG INSULIN (NovoLOG) PER UNIT SC SCH ×4 (08:30→21:00)
[2016-11-30] MEDS: TOPIRAMATE (TopAMAX) 100 MG TAB PO SCH (08:48)
[2016-11-30] MEDS: OMEPRAZOLE 20 MG CAP PO SCH (08:50)
[2016-11-30] MEDS: NORCO, ANEXSIA 5/325MG TABLET (HYDROcodone/ACETAMINOPHEN) PO PRN (08:50)
[2016-11-30] MEDS: TAMSULOSIN 0.4 MG CAP PO SCH (08:50)
[2016-11-30] MEDS ORDERED: CYANOCOBALAMIN 1,000 MCG/ML VIAL (J3420) IM SCH (09:00)
--- NOTE | 2016-11-30 09:28 | REP ---
Bilateral carotid artery duplex ultrasound: Peak flow velocity analysis: RIGHT LEFT ICA. Peak flow velocity cm/sec 76 81 ICA Diastolic flow velocity cm/sec 21 36 ICA/CCA Ratio 1.05 1.07 There is shallow atheromatous plaque in the distal common carotid arteries extending into the bulbs bilaterally. Peak flow velocities are normal bilaterally. The findings indicate less than 50% narrowing bilaterally. There is no significant stenosis on the right or the left. There is antegrade flow in the vertebral arteries bilaterally. There is no change from the comparison study dated 07/13/2016. Signed by Jude Castañeda MD 11/30/2016 09:19 A
[2016-11-30] MEDS: NICOTINE 21MG/24HR 1 EA TRANSDERMAL TD SCH (10:37)
--- NOTE | 2016-11-30 12:36 | CR ---
DATE OF CONSULTATION: 11/29/2016 REFERRING PHYSICIAN: Dr. Milagros Omer REASON FOR CONSULTATION: Headache, imbalance and facial numbness. HISTORY OF PRESENT ILLNESS: Dae Shipman is a 46-year-old man with history of chronic obstructive pulmonary disease (COPD), diabetes, dyslipidemia, history of pacemaker and defibrillator placement, coronary artery disease who developed right temporal 10 out of 10 headache 3 weeks ago. Headache is pressure and throbbing in character and it has lasted for 3 weeks. Two days ago, he developed double vision, dizziness, right-sided facial numbness and difficulty walking. He felt that he kept veering to left side. He could not walk a straight line. He denies any neck or back pain. He denies any seizures, dysphagia, dysarthria, diplopia, urinary incontinence. He denies any falls or loss of consciousness. He cannot have MRI scan of brain so had a CT scan of head in the emergency department which was unremarkable. He was admitted due to possibility of a small stroke. His repeat CT scan of head today did showed a small right occipital and parietal acute ischemic stroke. He was started on Topamax and his headache has improved. His balance is better. He still feels mildly dizzy and mild double vision. PAST MEDICAL HISTORY: Type 2 diabetes. Dyslipidemia. Hypertension. Coronary artery disease. Depression. History of pacemaker and defibrillator placement. The patient follows with Dr. Garcia. Vasectomy. Left wrist surgery. Cardiac catheterization. Coronary artery bypass graft. Knee replacement. ALLERGIES: None. HOME MEDICATIONS: - aspirin 81 mg by mouth daily - Plavix 75 mg by mouth daily - carvedilol 12.5 mg by mouth twice daily - dexilant 60 mg by mouth daily - Prozac 40 mg by mouth daily - gabapentin 300 mg by mouth three times daily - insulin Lantus, insulin Humalog sliding scale - lisinopril 2.5 mg by mouth daily - magnesium oxide 5 mg by mouth daily - meloxicam 50 mg by mouth daily - metformin 1000 mg by mouth twice daily and 500 mg by mouth in the morning - Crestor 40 mg by mouth daily - Flomax 0.4 mg by mouth daily FAMILY HISTORY: Unremarkable and noncontributory. SOCIAL HISTORY: He continues to smoke two packs per day for the last 25 years. He states that he has quit smoking since yesterday. REVIEW OF SYSTEMS: All systems were reviewed and were found to be noncontributory except as mentioned in history of present illness. PHYSICAL EXAMINATION: Temperature 99.1, pulse 72, respiratory 16, blood pressure 121/63, 95% saturation on room air. Heart: Regular rate and rhythm. Lungs: Clear to auscultation. Abdomen: Soft, nontender, nondistended. No pedal edema. No gross musculoskeletal abnormalities. Ear, nose, throat examination is within normal limits. His pupils are 6 mm bilaterally reactive to light. The patient is awake, alert, oriented to place, person and time. Normal speech, comprehension and repetition. Extraocular muscles are intact. No facial weakness. Tongue and uvula are midline. 5/5 strength in all four extremities. Deep tendon reflexes are 2+ in arms, 1+ at knees and absent at ankles. He has decreased cold, pinprick, vibration sensation in his feet. There is no dysmetria on right side. He has mild left arm dysmetria. His gait is now normal. Romberg testing is negative. DIAGNOSTIC STUDIES: CT scan of his head was reviewed and showed a small right parietal and occipital acute ischemic stroke. ASSESSMENT: 1. Small right parietal and occipital acute ischemic stroke. 2. Severe headache. 3. Migraine without aura, intractable, with status migrainosus. 4. History of diabetes, dyslipidemia, coronary artery disease. PLAN: 1. Physical and occupational therapy. 2. Continue aspirin 81 mg by mouth daily and Plavix 75 mg by mouth daily. 3. Prozac 40 mg by mouth daily and we will add amitriptyline 10 mg by mouth daily at bedtime. 4. We have started him on Topamax 50 mg by mouth twice daily which was increased to 100 mg by mouth twice daily and it has helped his headache. 5. Carotid ultrasound. 6. Crestor 40 mg by mouth daily. 7. Follow with our office in 1-2 weeks after hospital discharge.
--- NOTE | 2016-11-30 13:56 | REP ---
CT HEAD WITHOUT CONTRAST: HISTORY: Tongue numbness. COMPARISON: 11/29/2016. A small area of decreased attentuation is present in the posterior right parietal lobe. This represents an acute infarction that is slightly increased compared to the previous study. There is no intraparenchymal hemorrhage, mass or midline shift. The ventricular system and cortical sulci are dilated consistent with minimal volume loss. There is no extracerebral collection. Minimal mucosal thickening is present in the left ethmoid sinus. IMPRESSION: 1. Small acute right parietal lobe infarction slightly increased in size compared to the previous study. 2. Minimal volume loss. Signed by David Joel MD 11/30/2016 01:59 P
[2016-11-30] MEDS ORDERED: NS 1,000 ML IV SCH (17:30)
[2016-11-30] MEDS ORDERED: HumaLOG INSULIN (NovoLOG) PER UNIT SC ONE (20:45)
[2016-11-30] MEDS ORDERED: LEVEMIR (INSULIN DETEMIR) 1 UNITS/0.01ML SC SCH (21:00)
[2016-11-30] MEDS: AMITRIPTYLINE 10 MG TAB PO SCH (21:38)
[2016-11-30] MEDS: ROSUVASTATIN 10 MG TAB (CRESTOR) PO SCH (21:39)
[2016-12-01] VITALS: BP_SYST 120; BP_SYST 128; BP_DIAS 77; BP_DIAS 79
[2016-12-01 04:45] VITALS: BP 133/81
[2016-12-01 05:20] LABS: MEAN CORPUSCULAR HEMOGLOBIN 30.2 pg (27.0-33.0); MEAN CORPUSCULAR HGB CONC 34.2 g/dl (32.0-36.5); MEAN CORPUSCULAR VOLUME 88.4 fl (80.0-96.0); RED CELL DISTRIBUTION WIDTH 12.9 % (11.5-14.5); WHITE BLOOD COUNT 7.6 K/mm3 (4.0-10.0)
[2016-12-01] MEDS: SLF 3 ML SYR IV SCH ×2 (05:28→14:00)
[2016-12-01 05:50] LABS: ALBUMIN 3.2 GM/DL (3.2-5.2); ALBUMIN/GLOBULIN RATIO 1.03 (1.00-1.93); ALKALINE PHOSPHATASE 103 U/L (45-117); ALT/SGPT 16 U/L (12-78); ANION GAP 9 MEQ/L (8-16); AST/SGOT 7 U/L (15-37); BILIRUBIN,TOTAL 0.3 MG/DL (0.2-1.0); BLOOD UREA NITROGEN 16 MG/DL (7-18); CALCIUM LEVEL 8.6 MG/DL (8.5-10.1); CARBON DIOXIDE LEVEL 22 MEQ/L (21-32); CHLORIDE LEVEL 108 MEQ/L (98-107); CREATININE FOR GFR 0.99 MG/DL (0.70-1.30); GLOMERULAR FILTRATION RATE > 60.0 (>60); GLUCOSE, FASTING 271 MG/DL (70-105); MAGNESIUM LEVEL 1.7 MG/DL (1.8-2.4); SODIUM LEVEL 139 MEQ/L (136-145); TOTAL PROTEIN 6.3 GM/DL (6.4-8.2)
--- NOTE | 2016-12-01 07:24 | IPNPDOC ---
Subjective Date Seen The patient was seen on 12/01/16. Subjective Chief Complaint/HPI The patient is a 46-year-old male admitted with a reason for visit of Headache. Events since last encounter Pt states he is feeling better. denies any more headaches. Denies weakness. Denies CP, SOB, Abd pain. Constitutional: Denies: Chills, Fever Pulmonary: Denies: Dyspnea Cardiovascular: Denies: Chest Pain Gastrointestinal: Denies: Abdominal Pain Objective Physical Examination General Exam: Positive: Alert, No Acute Distress Eye Exam: Positive: PERRLA ENT Exam: Positive: Atraumatic, Tongue Midline Neck Exam: Positive: Supple, Negative: JVD Chest Exam: Positive: Clear to auscultation Heart Exam: Positive: Rate Normal, Regular Rhythm Abdomen Exam: Positive: Normal bowel sounds, Soft, Negative: Tenderness Neuro Exam: Positive: Normal Speech, Strength at 5/5 X4 ext, Sensation Intact Assessment /Plan Problems (1) Stroke Status: Acute Problem Specific Plan: Consult Specialist, Monitor Clinically Problem Text: 12/01 - Right Parietal stroke. Has been seen by neurology. On Aspirin and Plavix. Has been getting PT/OT. 11/30 - Right Parietal stroke. Neurology consulted. Pt is on Aspirin and Plavix. (2) Headache Status: Acute Problem Specific Plan: Consult Specialist, Monitor Clinically Problem Text: 12/01 - Headaches resolved. ESR was 6 and CRP was 0.31. Pt could not have MRI due to pacemaker. Neurology was consulted and saw the pt. On Topamax 100 mg BID and amitriptyline 10 mg QHS. 11/30 - Pt states headache has resolved. ESR was 6 and CRP was 0.31. Pt could not have MRI due to pacemaker. Neurology was consulted and saw the pt. On Topamax 100 mg BID and amitriptyline 10 mg QHS. 11/29 - Pt still with right sided temporal headache. He states headache has been present for three weeks but worse over past few days. Notes some blurry vision that has been present for past three weeks too. Dr Smith from Neuro was consulted. He initially suggested Starting Topamax 50 mg BID. I spoke to him again today and he advised increasing the Topamax to 100mg BID. He also suggested starting amitriptyline [address] Smith also suggesting getting a new head CT today. Pt has a pacemaker and therefore cannot have MRI. Pt had received morphine in the ER. He has been getting [place] for pain control. (3) Ataxia Status: Acute Problem Specific Plan: Consult Specialist, Monitor Clinically Problem Text: 12/01 - Seen by neurology. 11/30 - Neuro following. 11/29 - See above. Dr Smith consulted and will see him. (4) CAD (coronary artery disease) Status: Chronic Problem Specific Plan: Monitor Clinically Problem Text: On Aspirin and Plavix. On statin. On beta renita. (5) DM2 (diabetes mellitus, type 2) Status: Chronic Problem Specific Plan: Monitor Clinically, Repeat Labs Problem Text: 12/01 - Pt is on SSI. Normally on Lantus 85 units daily as outpt. Basal insulin was restarted at 20 units yesterday. Will increase Basal insulin to 30 units today. 11/30 - Pt is on SSI. Normally on Lantus 85 units daily as outpt. Will restart basal insulin at 20 units. Monitor and titrate. 11/29 - Pt is normally on Humalog and Lantus 85 units daily as outpt. He is currently not on any coverage. Will start SSI with FS qac and qhs. Consider starting the basal at lower dose. (6) HTN (hypertension) Status: Chronic Problem Specific Plan: Monitor Clinically Problem Text: On Lisinopril and Coreg. (7) COPD (chronic obstructive pulmonary disease) Status: Chronic Problem Specific Plan: Monitor Clinically Problem Text: Respiratory status stable. (8) Depression Status: Chronic Problem Specific Plan: Monitor Clinically Problem Text: On Prozac. (9) Hyperlipidemia Status: Chronic Problem Specific Plan: Monitor Clinically Problem Text: On Crestor. (10) Tobacco use Status: Chronic Problem Text: Has nicotine patch. (11) B12 deficiency Status: Chronic Problem Specific Plan: Monitor Clinically Problem Text: Started on qweeky B12 injection. Antiparietal cell Ab 0.1. Plan/VTE VTE Prophylaxis Ordered?: Yes (On Lovenox. Has SCDs and TEDs ordered) VS, I&O, 24H, Fishbone Vital Signs/I&O Vital Signs Date Time Temp Pulse Resp B/P (MAP) Pulse Ox O2 Delivery O2 Flow Rate FiO2 12/01/16 04:45 98.0 77 18 133/81 (98) 99 Room Air I&O- Last 24 Hours up to 6 AM 12/01/16 06:00 Intake Total 960 ml Output Total 1675 ml Balance -715 ml Laboratory Data 24H LABS Laboratory Tests 2 12/01/16 05:01: Anion Gap 9, Glomerular Filtration Rate > 60.0, Blood Urea Nitrogen 16, Creatinine 0.99, Sodium Level 139, Potassium Level 4.0, Chloride Level 108H, Carbon Dioxide Level 22, Calcium Level 8.6, Aspartate Amino Transf (AST/SGOT) 7L , Alanine Aminotransferase (ALT/SGPT) 16, Alkaline Phosphatase 103, Total Bilirubin 0.3, Total Protein 6.3L, Albumin 3.2, Magnesium Level 1.7L, Albumin/ Globulin Ratio 1.03 CBC/BMP Laboratory Tests 12/01/16 05:01 Red Blood Count 4.89, Mean Corpuscular Volume 88.4, Mean Corpuscular Hemoglobin 30.2, Mean Corpuscular Hemoglobin Concent 34.2, Red Cell Distribution Width 12.9 , Calcium Level 8.6, Aspartate Amino Transf (AST/SGOT) 7 L, Alanine Aminotransferase (ALT/SGPT) 16, Alkaline Phosphatase 103, Total Bilirubin 0.3, Total Protein 6.3 L, Albumin 3.2 [address] [place] RPA-C Dec 01, 2016 07:24
[2016-12-01 08:00] VITALS: BP 129/83
[2016-12-01] MEDS: CLOPIDOGREL 75 MG TAB PO SCH (09:00)
[2016-12-01] MEDS ORDERED: TOPIRAMATE (TopAMAX) 25 MG TAB PO SCH (09:00)
[2016-12-01] MEDS: LISINOPRIL *2.5 MG* TAB PO SCH (09:02)
[2016-12-01] MEDS: NICOTINE 21MG/24HR 1 EA TRANSDERMAL TD SCH (09:02)
[2016-12-01] MEDS: HumaLOG INSULIN (NovoLOG) PER UNIT SC SCH ×2 (09:02→12:24)
[2016-12-01] MEDS: ASPIRIN 81 MG ENTERIC TAB PO SCH (09:03)
[2016-12-01] MEDS: FLUoxetine 20 MG CAP PO SCH (09:03)
[2016-12-01] MEDS: TAMSULOSIN 0.4 MG CAP PO SCH (09:03)
[2016-12-01] MEDS: FENOFIBRATE 145 MG TAB (TRICOR) PO SCH (09:03)
[2016-12-01 09:04] VITALS: BP 129/83
[2016-12-01] MEDS: GABAPENTIN 300 MG CAP PO SCH ×3 (09:04→15:51)
[2016-12-01] MEDS: MAGNESIUM OXIDE 400 MG TAB (MAG-OX) PO SCH (09:04)
[2016-12-01] MEDS: CARVedilol 12.5 MG TAB PO SCH (09:04)
[2016-12-01] MEDS: MELOXICAM (MOBIC) 7.5 MG TAB PO SCH (09:05)
[2016-12-01] MEDS: OMEPRAZOLE 20 MG CAP PO SCH (09:05)
[2016-12-01] MEDS: ENOXAPARIN 40 MG/0.4 ML SYRINGE (J1650) SC SCH (09:05)
[2016-12-01 12:00] VITALS: BP 112/58
[2016-12-01 16:00] VITALS: BP 115/56
[2016-12-01] MEDS ORDERED: NICO21PAT TD (16:46)
[2016-12-01] MEDS ORDERED: AMIT10TA PO (16:46)
[2016-12-01] MEDS ORDERED: TOPA25TA10 PO (16:46)
[2016-12-01] MEDS ORDERED: LEVEMIR (INSULIN DETEMIR) 1 UNITS/0.01ML SC SCH (21:00)
--- NOTE | 2016-12-06 22:59 | DS.PDOC ---
Discharge Summary General Date of Admission Nov 28, 2016 at 18:17 Date of Discharge December 01 Primary Care Physician: Ilana Garner Attending Physician: FAUZIA CASTRO DO Specialist/Consultants Involve: ROSALIA VARGAS MD Discharge Summary PROCEDURES PERFORMED DURING STAY: [None]. ADMITTING DIAGNOSES: 1. headache with ataxia and right-sided facial numbness 2. history of CAD 3. history of COPD 4. history of depression 5. history of hyperlipidemia DISCHARGE DIAGNOSES: 1. R parietal ischemic infarct 2. history of CAD 3. history of COPD 4. history of depression 5. history of hyperlipidemia 6. diabetes mellitus 7. headache 8. B12 deficiency 9. tobacco use COMPLICATIONS/CHIEF COMPLAINT: Headache. HISTORY OF PRESENT ILLNESS: The patient is a 46-year-old male with past medical history significant for chronic obstructive pulmonary disease (COPD), diabetes, hypertension, hyperlipidemia, depression, presented to the emergency room complaining of right-sided headache with right-sided facial numbness and right foot draw up with ataxia. The patient stated symptoms started around yesterday. He was nauseated, had one episode of vomiting. The morning of admission, the patient continued to have right-sided headache with facial numbness and ataxia, which is new. The patient denies any slurred speech any other focal deficits. Denies any blurry vision or change in vision. In the emergency room, the patient underwent a CT scan of the head which was negative for any acute abnormality. Exam was stable when compared to CT scan done July 13, 2016. Neurologist, Dr. Vargas was consulted and he agreed to see the patient in consultation. He recommended the patient be given Topamax 50 mg by mouth twice a day. Hospitalist was called for admission. HOSPITAL COURSE: Patient was admitted to the hospital and monitored, with neurology consult. Secondary to pacemaker, patient could not have an MRI. Follow up CT on 11/29 showed an acute infarct. Carotid US showed less than 50% stenosis bilat. Neurology began Topamax and amitriptyline for his headache, with improvement of symptoms. Patient was found to have B12 deficiency, and began treatment in the hospital. Physical therapy was consulted and worked with the patient, who did well. On 11/30, patient complained of tingling of his tongue, and mild L sided pronator drift was noted, so a follow up head CT was performed, showing slightly increased area of infarct. Neurology felt that this was to be expected, considering the amount of time between head CTs, and attributed the patient's tongue tingling to Topamax. They reduced the dose of Topamax, and patient's symptoms improved. By 12/01, patient was cleared by both neurology and physical therapy for DC from the hospital, and patient was discharged. Patient used a nicotine patch while in the hospital and voiced his intention to remain abstinent from tobacco upon discharge. DISCHARGE MEDICATIONS: Please see below. ALLERGIES: Please see below. PHYSICAL EXAMINATION ON DISCHARGE: VITAL SIGNS: Please see below. GENERAL: no acute distress HEENT: MMM, tongue deviates midline, EOMI NECK: no JVD CARDIOVASCULAR EXAMINATION: regular in rate and rhythm RESPIRATORY EXAMINATION: clear to auscultation bilat ABDOMINAL EXAMINATION: soft, nontender, nondistended EXTREMITIES: no edema in bilat LE SKIN: no rash NEUROLOGICAL EXAMINATION: CN II-XII intact, mild weakness of LUE and LLE, rapid alternating movements with ease PSYCHIATRIC EXAMINATION: appropriate mood and affect LABORATORY DATA: Please see below. IMAGING: Serial head CTs, the most recent 11/30/2016 showing 1. Small acute right parietal lobe infarction slightly increased in size compared to the previous study. 2. Minimal volume loss. PROGNOSIS: fair ACTIVITY: [As tolerated]. DIET: consistent carbohydrate DISCHARGE PLAN: home DISPOSITION: 01 Home, Self-Care. DISCHARGE INSTRUCTIONS: 1. Remain abstinent from tobacco 2. take all medications as prescribed 3. seek urgent medical attention for worsening weakess, numbness, or any concerning symptoms 4. Contact the office with any problems or concerns ITEMS TO FOLLOWUP ON ON OUTPATIENT: 1. referral for PT 2. neurology follow up 3. tobacco use 4. call for neurology appointment 1-2 weeks after discharge 5. B12 deficiency DISCHARGE CONDITION: [Stable]. TIME SPENT ON DISCHARGE: Greater than 20 minutes. Vital Signs/I&Os Vital Signs Date Time Temp Pulse Resp B/P (MAP) Pulse Ox O2 Delivery O2 Flow Rate FiO2 12/01/16 16:00 97.9 70 13 115/56 (75) 98 Room Air Discharge Medications Scheduled (Dexilant) 60 Mg Cap, 60 MG PO DAILY, (Reported) Amitriptyline HCl (Amitriptyline HCl) 10 Mg Tab, 10 MG PO QHS Aspirin (Aspirin 81) 81 Mg Tab, 81 MG PO DAILY, (Reported) Carvedilol (Carvedilol) 12.5 Mg Tab, 12.5 MG PO BID, (Reported) Clopidogrel Bisulfate (Plavix) 75 Mg Tab, 75 MG PO DAILY, (Reported) Epa Ethyl April (Vascepa) 1 Gm Cap, 2 GM PO BID, (Reported) Fenofibrate (Fenofibrate) 145 Mg Tab, 145 MG PO DAILY, (Reported) Fluoxetine HCl (Prozac) 40 Mg Cap, 40 MG PO DAILY, (Reported) Gabapentin (Gabapentin) 300 Mg Cap, 300 MG PO TID, (Reported) Insulin Glargine (Lantus) 1 Units/0.01 Ml Susp, 90 UNITS SC QHS, (Reported) Insulin Human Lispro (Humalog) 1 Units/0.01 Ml Inj, 0 SC ACHS, (Reported) Lisinopril (Lisinopril) 2.5 Mg Tab, 2.5 MG PO DAILY, (Reported) Magnesium Oxide (Magnesium Oxide 400) 400 Mg Tab, 400 MG PO DAILY, (Reported) Meloxicam (Meloxicam) 15 Mg Tab, 15 MG PO DAILY, (Reported) Metformin Hydrochloride (Metformin HCl) 1,000 Mg Tab, 1,000 MG PO BID, (Reported ) MORNING AND DINNER Metformin Hydrochloride (Metformin HCl) 500 Mg Tab, 500 MG PO DAILY, (Reported) LUNCH Nicotine (Nicotine Transdermal Syst) 21 Mg/24 Hr Dis, 1 PATCH TD DAILY Rosuvastatin Calcium (Crestor) 40 Mg Tab, 40 MG PO QHS, (Reported) Tamsulosin Hydrochloride (Flomax) 0.4 Mg Cap, 0.4 MG PO DAILY, (Reported) Topiramate (Topamax) 25 Mg Tab, 50 MG PO BID Allergies Coded Allergies: No Known Drug Allergy (Verified Allergy, Unknown, 11/28/16) FAUZIA CASTRO DO December 06, 2016 22:59
== END 2016-12-01 18:00 | disposition home or self-care (01) | DRG 66 ==
LOC: M ED 15:43 → M ED INP 18:17 → M ICU 23:01
PROVIDERS: ADMIT Internal Medicine; ATTEND Family Medicine
DX: I63.9 Cerebral infarction, unspecified (principal); I25.10 Atherosclerotic heart disease of native coronary artery without angina pectoris; J44.9 Chronic obstructive pulmonary disease, unspecified; E78.5 Hyperlipidemia, unspecified; F17.200 Nicotine dependence, unspecified, uncomplicated; E11.9 Type 2 diabetes mellitus without complications; E53.8 Deficiency of other specified B group vitamins; I10 Essential (primary) hypertension; Z95.0 Presence of cardiac pacemaker; Z79.899 Other long term (current) drug therapy; Z79.82 Long term (current) use of aspirin; I69.393 Ataxia following cerebral infarction

== ENCOUNTER 2017-01-16 09:23 | Emergency (ER) | payer MEDICARE, MEDICAID ==
[~2017-01-16] VITALS: Ht 175.3 cm; Wt 83.9 kg
[~2017-01-16 09:23] MED LIST changes: +AMIT10TA PO; +ASPI1TAB PO; +CARV12.5 PO; +DEXI60CA PO; +FENO145T PO; +FLOM5CAP PO; +GABA-282 PO; +INSUHUMDS SC; +INSULANT SC; +LISI2.5T3 PO; +MAGN400T5 PO; +MELO15TA4 PO; +METF1000 PO; +METF500T PO; +NICO21PAT TD; +PLAV75TA38 PO; +PROZ40CA PO; +TOPA25TA10 PO
[2017-01-16] MEDS ORDERED: AMIT25TA (09:37)
[2017-01-16] MEDS ORDERED: MORPHINE 4 MG/ML 1ML SYRINGE IM ONE (11:15)
[2017-01-16] MEDS ORDERED: NORCOTAB PO (11:54)
[2017-01-16] MEDS ORDERED: ROBA500T PO (11:54)
[2017-01-16 12:13] VITALS: BP 128/68
[2017-01-19] MEDS ORDERED: METH-107 PO (16:47)
== END 2017-01-16 12:14 | disposition home or self-care (01) ==
LOC: M ED 10:32
DX: S39.012A Strain of muscle, fascia and tendon of lower back, initial encounter (principal); M51.36 Other intervertebral disc degeneration, lumbar region; X50.0XXA Overexertion from strenuous movement or load, initial encounter; Y92.9 Unspecified place or not applicable; Y93.H9 Activity, other involving exterior property and land maintenance, building and construction; Y99.9 Unspecified external cause status; I25.10 Atherosclerotic heart disease of native coronary artery without angina pectoris; I10 Essential (primary) hypertension; E11.9 Type 2 diabetes mellitus without complications; Z87.891 Personal history of nicotine dependence; Z95.5 Presence of coronary angioplasty implant and graft; Z95.0 Presence of cardiac pacemaker; Z79.82 Long term (current) use of aspirin; Z79.4 Long term (current) use of insulin; Z79.899 Other long term (current) drug therapy

== ENCOUNTER 2017-01-19 12:33 | Observation (INO) | payer MEDICARE, MEDICAID ==
[~2017-01-19] VITALS: Ht 175.3 cm; Wt 83.9 kg
[~2017-01-19 12:33] MED LIST changes: +AMIT25TA; -DEXI60CA PO; +DEXI60CA2 PO; -METF1000 PO; +METF10004 PO; -METF500T PO; +METF500T13 PO; +NORCOTAB PO; +PLAV1TAB2 PO; -PLAV75TA38 PO; +ROBA500T PO; +TOPA1TAB PO; -TOPA25TA10 PO
[2017-01-19] MEDS ORDERED: MORPHINE 4 MG/ML 1ML SYRINGE IV ONE ×2 (13:15→15:30)
--- NOTE | 2017-01-19 14:06 | REP ---
CT LUMBAR SPINE WITHOUT CONTRAST: HISTORY: Back pain. COMPARISON: MR 10/01/2014. There is no disc bulge or herniation at the L1-2 through L3-4 and L5-S1 levels. The nerves exit the neural foramina without compression. A diffuse disc bulge is present at the L4-5 level. There is minimal compression of the thecal sac. The L4 nerves exit the neural foramina without compression. The L4-5 intervertebral disc is decreased in height consistent with disc degeneration. There is no fracture or subluxation. IMPRESSION: Diffuse disc bulge at the L4-5 level with minimal thecal sac compression. Signed by David Joel MD 01/19/2017 02:12 P
[2017-01-19 14:46] LABS: BASO # 0.1 K/mm3 (0.0-0.2); BASO % 1.4 % (0.0-1.0); EOS # 0.4 K/mm3 (0.0-0.50); EOS % 4.8 % (0.0-3.0); LARGE UNSTAINED CELL # 0.1 K/mm3 (0.0-0.4); LARGE UNSTAINED CELL % 1.5 % (0.0-4.0); LYMPH # 2.2 K/mm3 (1.5-4.5); LYMPH % 26.3 % (24.0-44.0); MEAN CORPUSCULAR HGB CONC 36.1 g/dl (32.0-36.5); MEAN CORPUSCULAR VOLUME 85.9 fl (80.0-96.0); MONO # 0.5 K/mm3 (0.0-0.8); MONO % 6.5 % (0.0-5.0); NEUTROPHILS # 4.8 K/mm3 (1.8-7.7); NEUTROPHILS % 59.5 % (36.0-66.0); PLATELET COUNT, AUTOMATED 255 k/mm3 (150-450); RED CELL DISTRIBUTION WIDTH 12.5 % (11.5-14.5)
[2017-01-19 14:58] LABS: ANION GAP 8 MEQ/L (8-16); BLOOD UREA NITROGEN 13 MG/DL (7-18); CALCIUM LEVEL 9.2 MG/DL (8.5-10.1); CARBON DIOXIDE LEVEL 23 MEQ/L (21-32); CHLORIDE LEVEL 102 MEQ/L (98-107); CREATININE FOR GFR 1.02 MG/DL (0.70-1.30); GLOMERULAR FILTRATION RATE > 60.0 (>60); GLUCOSE, FASTING 329 MG/DL (70-105); POTASSIUM SERUM 4.3 MEQ/L (3.5-5.1); SODIUM LEVEL 133 MEQ/L (136-145)
[2017-01-19] MEDS ORDERED: TIZA4CAP3 PO (16:47)
[2017-01-19] MEDS ORDERED: ZONI25CA2 PO (16:47)
[2017-01-19] MEDS ORDERED: METH1TAB40 PO (16:47)
[2017-01-19] MEDS ORDERED: AMIT25TA PO (16:47)
[2017-01-19] MEDS ORDERED: HYDR-3713 PO (16:47)
[2017-01-19 18:00] VITALS: BP 140/80
[2017-01-19] MEDS ORDERED: DEXTROSE 50% 50 ML SYRINGE IV PRN (18:00)
[2017-01-19] MEDS ORDERED: GLUCAGON FOR INJ 1 MG VIAL (J1610) SC PRN (18:00)
[2017-01-19] MEDS ORDERED: GLUCOSE 4 GM CHEW TABLET PO PRN (18:00)
[2017-01-19] MEDS: MORPHINE 2 MG/ML 1ML SYRINGE IV PRN ×2 (18:37→23:28)
--- NOTE | 2017-01-19 19:05 | HPEPDOC ---
General Date of Admission Jan 19, 2017 at 16:53 Primary Care Physician: Ilana Garner Other Providers Gin Operator: Dr. Garcia Neurologist: Dr. Smith Attending Physician: BASHIR OSORIO MD Chief Complaint The patient is a 46-year-old male admitted with a reason for visit of Intractable Low Back Pain. Source: Patient Exam Limitations: No limitations History of Present Illness Patient is a 38-year-old male with past medical history significant for type 2 diabetes, GERD, COPD, degenerative disc disease, hypercholesterolemia, depression, hypertension, coronary artery disease with stents and CABG, presents to the ER with back pain. Patient states this started Monday of this week. Patient was out in the yard pulling up Stakes to move a carport. Patient states he is on this many times before. Did not feel any pain or discomfort when doing this. He then went inside and use the restroom. He had a bowel movements. When he started up after the bowel movements he felt his "back go out ". Patient described that he wasn't able to move and was in excruciating pain. The pain was a 20 out of 10. At that point he had called 911 and presented to the ER. At the ER patient reports there was no x-rays performed. Patient was given morphine and sent home. He states that he went home and he laid down on his couch. At one point tried to sit up and felt a loud pop and this made the pain worsen. Patient then remained in bed for approximately 4 days. Patient states he couldn' t move very much because of the pain. He was very constipated all the time. Until today he called his primary care doctor and was told to go to the ER. The pain is currently sharp and to 8 point in the middle of his back. Patient describes that is at the L4 vertebrae. And it radiates to both of his hips. Denies any radiation down his leg. Denies any perianal numbness. Denies any incontinence. 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 When asked how did patient know that it was at the L4 level he states he found an hour ago from the CT scan. The patient also states he has had problems at that area in the past. He denies any radiation of pain down his legs was states that his feet do feel like they're on fire from time to time. This is been going on since Monday. Patient has been losing sensitivity in his feet. Patient has a documented history of diabetic neuropathy. States it feels different than it had been before. Other people tell him his feet feel cool. Patient reports a recent history of stroke last month. Home Medications Scheduled (Dexilant) 60 Mg Cap, 60 MG PO DAILY, (Reported) Amitriptyline HCl (Amitriptyline HCl) 25 Mg Tab, 25 MG PO QHS, (Reported) Aspirin (Aspirin 81) 81 Mg Tab, 81 MG PO DAILY, (Reported) Carvedilol (Carvedilol) 12.5 Mg Tab, 12.5 MG PO BID, (Reported) Clopidogrel Bisulfate (Plavix) 75 Mg Tab, 75 MG PO DAILY, (Reported) Epa Ethyl April (Vascepa) 1 Gm Cap, 2 GM PO BID, (Reported) Fenofibrate (Fenofibrate) 145 Mg Tab, 145 MG PO DAILY, (Reported) Gabapentin (Gabapentin) 300 Mg Cap, 300 MG PO TID, (Reported) Insulin Glargine (Lantus) 1 Units/0.01 Ml Susp, 90 UNITS SC QHS, (Reported) Insulin Human Lispro (Humalog) 1 Units/0.01 Ml Inj, 0 SC ACHS, (Reported) PER SLIDING SCALE Lisinopril (Lisinopril) 2.5 Mg Tab, 2.5 MG PO DAILY, (Reported) Magnesium Oxide (Magnesium Oxide 400) 400 Mg Tab, 400 MG PO DAILY, (Reported) Metformin Hydrochloride (Metformin HCl) 1,000 Mg Tab, 1,000 MG PO BID, (Reported ) MORNING AND DINNER Metformin Hydrochloride (Metformin HCl) 500 Mg Tab, 500 MG PO DAILY, (Reported) LUNCH Tamsulosin Hydrochloride (Flomax) 0.4 Mg Cap, 0.4 MG PO DAILY, (Reported) Zonisamide (Zonisamide) 25 Mg Cap, 50 MG PO QHS, (Reported) Scheduled PRN Acetaminophen/Hydrocodone (Hydrocodone/Acetaminophen 5-325 mg) 1 Tab Tab, 1 TAB PO Q6H PRN for PAIN, (Reported) Methocarbamol (Methocarbamol) 500 Mg Tab, 1,000 MG PO Q6H PRN for PAIN, ( Reported) Tizanidine Hydrochloride (Tizanidine HCl) 4 Mg Cap, 4 MG PO TID PRN for SPASMS, (Reported) Allergies Coded Allergies: No Known Drug Allergy (Verified Allergy, Unknown, 11/28/16) Past Medical History Medical History 1. Type 2 diabetes mellitus 2. Hyperlipidemia 3. Hypertension 4. Depression 5. Coronary artery disease, status post stent placement. 10 stents. Post CABG. 6. Nicotine addiction, remission. 7. Degenerative disc disease. 8. History of BPH 9. COPD 10. Diabetic neuropathy 11. History of MRSA sternal osteomyelitis Surgical History 1. Vasectomy 2. CABG 3. Cardiac stents 10 4. ICD placement 2015 5. Partial sternum removal 2010 6. Left wrist Family History Father: , self-inflicted gunshot Mother: , hypertension, hyperlipidemia, heart disease Review of Symptoms Constitutional: Denies: Chills, Fever Eyes: Denies: Pain, Vision change ENT: Denies: Head Aches, Ear Pain, Dysphagia Skin: Denies: Rash, Lesions Pulmonary: Denies: Dyspnea, Cough, Pleuritic Chest Pain Cardiovascular: Denies: Chest Pain, Palpitations, Edema, Lt Headedness Gastrointestinal: Denies: Nausea, Vomiting, Abdominal Pain, Diarrhea, Melena, Hematochezia Genitourinary: Reports: Other Symptoms (states he's had CPE in different positions this past week. This is due to pain. Denies any burning or dysuria.), Denies: Dysuria, Frequency Hematologic: Denies: Bruising, Bleeding Excessively Musculoskeletal: Reports: Back Pain Neurological: Reports: Numbness (history of decreased sensation in feet due to diabetic neuropathy), Other Symptoms (referring his feet bilaterally since Monday.) Psych: Reports: Mood Normal, Denies: Anxiety, Depression Physical Examination General Exam: Positive: Alert, Cooperative, No Acute Distress Eye Exam: Positive: PERRLA, Conjunctiva & lids normal, EOMI, Negative: Sclera icteric ENT Exam: Positive: Atraumatic, Mucous membr. moist/pink, Pharynx Normal, Tongue Midline, Nares Patent Neck Exam: Positive: Supple, Negative: JVD, thyromegaly Chest Exam: Positive: Clear to auscultation, Normal air movement, Negative: Rales, Rhonchi, Wheezing Heart Exam: Positive: Rate Normal, Normal S1, Normal S2, Negative: Gallops, Murmurs, Rubs Abdomen Exam: Positive: Normal bowel sounds, Soft, Negative: Tenderness, Hepatospenomegaly, Mass Extremity Exam: Positive: Normal pulses (radial pulses and pedal pulse 2/4 bilaterally), Negative: Edema Skin Exam: Positive: Nl turgor and temperature, Other skin issue (minor healed lacerations and abrasions lower extremities bilaterally.), Negative: Rash, Breakdown Neuro Exam: Positive: Normal Speech, Cranial Nerves 3-12 NL, Other (upper [place] muscle strength 5 out of 5 bilaterally. Lower hip flexors 3 out of 5 bilaterally. Rest of lower extremity muscle strength 5 out of 5 bilaterally.) Psych Exam: Positive: Mental status NL, Mood NL, Memory Intact, Oriented x 3, Negative: Anxiety Vital Signs Vital Signs Date Time Temp Pulse Resp B/P (MAP) Pulse Ox O2 Delivery O2 Flow Rate FiO2 01/19/17 17:05 99.4 79 16 146/85 (105) 95 Room Air Laboratory Data Labs 24H Laboratory Tests 2 01/19/17 14:24: White Blood Count 8.0, Red Blood Count 5.43, Hemoglobin 16.9, Hematocrit 46.7, Mean Corpuscular Volume 85.9, Mean Corpuscular Hemoglobin 31.0, Mean Corpuscular Hemoglobin Concent 36.1, Red Cell Distribution Width 12.5, Platelet Count 255, Neutrophils (%) (Auto) 59.5, Lymphocytes (%) (Auto) 26.3, Monocytes ( %) (Auto) 6.5H, Eosinophils (%) (Auto) 4.8H, Basophils (%) (Auto) 1.4H, Neutrophils # (Auto) 4.8, Lymphocytes # (Auto) 2.2, Monocytes # (Auto) 0.5, Eosinophils # (Auto) 0.4, Basophils # (Auto) 0.1, Large Unclassified Cells % 1.5 , Large Unclassified Cells # 0.1, Anion Gap 8, Glomerular Filtration Rate > 60.0 , Blood Urea Nitrogen 13, Creatinine 1.02, Sodium Level 133L, Potassium Level 4.3, Chloride Level 102, Carbon Dioxide Level 23, Calcium Level 9.2 CBC/BMP Laboratory Tests 01/19/17 14:24 Red Blood Count 5.43, Mean Corpuscular Volume 85.9, Mean Corpuscular Hemoglobin 31.0, Mean Corpuscular Hemoglobin Concent 36.1, Red Cell Distribution Width 12.5 , Neutrophils (%) (Auto) 59.5, Lymphocytes (%) (Auto) 26.3, Monocytes (%) (Auto ) 6.5 H, Eosinophils (%) (Auto) 4.8 H, Basophils (%) (Auto) 1.4 H, Neutrophils # (Auto) 4.8, Lymphocytes # (Auto) 2.2, Monocytes # (Auto) 0.5, Eosinophils # ( Auto) 0.4, Basophils # (Auto) 0.1, Calcium Level 9.2 Assessment/Plan Patient reports not taking most of his medications since Monday of this week. Patient reports COPD history but is currently not taking any medications. No spirometry available at this time. Monitor as needed. Problems (1) Intractable low back pain Status: Acute Problem Text: Patient has intractable low back pain. Patient has received morphine IV 4 mg twice since being in the ER. This has reduced the pain minimally. Patient had visited the ER on Monday and was given tizanidine, amitriptyline, hydrocodone and another muscle relaxer. Patient had been taking those regularly. CT scan of lumbar spine was performed and showed diffuse disc bulge at the L4-5 level with minimal thecal sac compression. Patient denies any red flag symptoms for back pain. CT scan did not show any concerning nerve compression. Pain is most likely from a musculoskeletal cause. Trying to control pain with muscle relaxers and pain medicine. Prescribing patient's Flexeril 4 mg every 8 hours and a lidocaine patch daily for pain. Also prescribed patient a K pad to lay on for muscle relief. For pain when necessary prescribing patient on Percocet for mild to moderate pain and 2 mg of morphine every 4 hours for severe pain. Referring patient for physical therapy. May consider referral to pain management if current treatment plan is unsuccessful. (2) History of stroke Problem Text: Patient has a recent history of stroke. Continue patient on home medication at this time. Monitor clinically as needed. (3) CAD (coronary artery disease) Status: Chronic Problem Text: History significant for stents and CABG. Patient takes Plavix and aspirin. (4) Hyperlipidemia Status: Chronic Problem Text: Patient reports taking Cipro 2 g at home twice a day. This is not available currently at her pharmacy. Holding at this time. (5) HTN (hypertension) Status: Chronic Problem Text: Continue home medications and clinically monitor as needed. Will follow patient's blood pressure. (6) DM2 (diabetes mellitus, type 2) Status: Chronic Problem Text: Holding patient's home metformin Prescribing patient long-acting insulin 60 units a day and sliding scale with meals. Following hypoglycemic protocol. Monitor as needed. Consistent carbohydrate diet (7) Nicotine dependence in remission Problem Text: Patient reports quitting smoking about a month ago after his stroke. Monitor as needed. (8) Depression Status: Chronic Problem Text: Patient was taking Prozac but reports he is not taking at this time. Monitor as needed. (9) GERD (gastroesophageal reflux disease) Problem Text: Patient's home medication is not on pharmacy here. Prescribing patient Protonix 40 mg daily. Monitor as needed. Plan / VTE VTE Prophylaxis Ordered?: Yes (Lovenox 40mg daily SC) GME ATTESTATION GME ATTESTATION My preceptor for this patient encounter was Dr. Osorio and he was physically present in the building during the encounter and was fully available. As needed , all aspects of the patient interview, examination, medical decision making process, and medical care plan development were reviewed and approved by the preceptor. Preceptor is aware and concurs with the plan as stated in the body of this note and will attest to such by his/her co-signature. ANNE-MARIE BRYANT DO Jan 19, 2017 18:19
[2017-01-19] MEDS: PERCOCET 5MG/325MG TAB PO PRN (20:30)
[2017-01-19] MEDS: ZONISAMIDE 25 MG CAP (ZONEGRAN) PO SCH (20:30)
[2017-01-19] MEDS: GABAPENTIN 300 MG CAP PO SCH (20:31)
[2017-01-19] MEDS: CARVedilol 12.5 MG TAB PO SCH (20:32)
[2017-01-19] MEDS: AMITRIPTYLINE 25 MG TAB PO SCH (20:33)
[2017-01-19] MEDS: ENOXAPARIN 40 MG/0.4 ML SYRINGE (J1650) SC SCH (20:34)
[2017-01-19] MEDS: LIDOCAINE 5% (LIDODERM) PATCH TD SCH (20:35)
[2017-01-19] MEDS ORDERED: LEVEMIR (INSULIN DETEMIR) 1 UNITS/0.01ML SC SCH (21:00)
[2017-01-19] MEDS: CYCLOBENZAPRINE 5MG TABLET PO SCH (22:41)
[2017-01-20 06:00] VITALS: BP 120/66
[2017-01-20] MEDS: CYCLOBENZAPRINE 5MG TABLET PO SCH ×3 (07:00→20:09)
[2017-01-20 07:16] LABS: ANION GAP 6 MEQ/L (8-16); BLOOD UREA NITROGEN 19 MG/DL (7-18); CALCIUM LEVEL 9.1 MG/DL (8.5-10.1); CARBON DIOXIDE LEVEL 27 MEQ/L (21-32); CHLORIDE LEVEL 97 MEQ/L (98-107); CREATININE FOR GFR 1.21 MG/DL (0.70-1.30); GLOMERULAR FILTRATION RATE > 60.0 (>60); GLUCOSE, FASTING 338 MG/DL (70-105); POTASSIUM SERUM 4.3 MEQ/L (3.5-5.1); SODIUM LEVEL 130 MEQ/L (136-145)
[2017-01-20 07:25] LABS: BASO # 0.1 K/mm3 (0.0-0.2); BASO % 1.5 % (0.0-1.0); EOS # 0.4 K/mm3 (0.0-0.50); EOS % 4.3 % (0.0-3.0); LARGE UNSTAINED CELL # 0.2 K/mm3 (0.0-0.4); LARGE UNSTAINED CELL % 1.8 % (0.0-4.0); LYMPH # 2.8 K/mm3 (1.5-4.5); LYMPH % 29.3 % (24.0-44.0); MEAN CORPUSCULAR HEMOGLOBIN 31.3 pg (27.0-33.0); MEAN CORPUSCULAR HGB CONC 35.4 g/dl (32.0-36.5); MEAN CORPUSCULAR VOLUME 88.3 fl (80.0-96.0); MONO # 0.7 K/mm3 (0.0-0.8); MONO % 7.5 % (0.0-5.0); NEUTROPHILS # 4.9 K/mm3 (1.8-7.7); NEUTROPHILS % 55.5 % (36.0-66.0); PLATELET COUNT, AUTOMATED 234 k/mm3 (150-450); RED CELL DISTRIBUTION WIDTH 12.6 % (11.5-14.5); WHITE BLOOD COUNT 8.8 K/mm3 (4.0-10.0)
[2017-01-20] MEDS: **NOTE PATIENT COMMENT** MISC XX SCH (09:00)
[2017-01-20] MEDS ORDERED: TAMSULOSIN 0.4 MG CAP PO SCH (09:00)
[2017-01-20] MEDS: CLOPIDOGREL 75 MG TAB PO SCH (09:04)
[2017-01-20] MEDS: FENOFIBRATE 145 MG TAB (TRICOR) PO SCH (09:04)
[2017-01-20] MEDS: PANTOPRAZOLE 40MG TAB (PROTONIX) PO SCH (09:04)
[2017-01-20] MEDS: CARVedilol 12.5 MG TAB PO SCH ×2 (09:04→20:05)
[2017-01-20] MEDS: GABAPENTIN 300 MG CAP PO SCH ×3 (09:04→20:05)
[2017-01-20] MEDS: LISINOPRIL *2.5 MG* TAB PO SCH (09:05)
[2017-01-20] MEDS: ASPIRIN 81 MG ENTERIC TAB PO SCH (09:05)
[2017-01-20] MEDS: HumaLOG INSULIN (NovoLOG) PER UNIT SC SCH ×3 (09:06→17:38)
[2017-01-20] MEDS: MORPHINE 2 MG/ML 1ML SYRINGE IV PRN ×2 (09:07→17:44)
[2017-01-20] MEDS: PERCOCET 5MG/325MG TAB PO PRN ×2 (10:13→16:36)
--- NOTE | 2017-01-20 10:48 | IPNPDOC ---
Subjective Date Seen The patient was seen on 01/20/17. Subjective Chief Complaint/HPI The patient is a 46-year-old male admitted with a reason for visit of Intractable Low Back Pain. Events since last encounter Patient states no improvement in LBP, yet not worse. Participated in PT today and able to ambulate short distance with walker. C/o paresthesias to BLE. Also states 2 episodes of bladder incontinence prior to hospitalization. Constitutional: Denies: Chills, Fever, Night Sweats ENT: Reports: Head Aches (chronic), Denies: Ear Pain, Dysphagia Pulmonary: Denies: Dyspnea, Cough Cardiovascular: Denies: Chest Pain, Palpitations, Orthopnea, Paroxysmal Noc. Dyspnea, Lt Headedness Gastrointestinal: Denies: Nausea, Vomiting, Abdominal Pain, Diarrhea, Constipation Genitourinary: Reports: Incontinence (not current, prior to hospitalization), Denies: Dysuria, Frequency, Retention Musculoskeletal: Reports: Back Pain, Denies: Neck Pain Objective Physical Examination General Exam: Positive: Alert, Cooperative, No Acute Distress Eye Exam: Positive: PERRLA, Conjunctiva & lids normal, EOMI, Negative: Sclera icteric ENT Exam: Positive: Atraumatic, Mucous membr. moist/pink, Pharynx Normal, Tongue Midline, Nares Patent Neck Exam: Positive: Supple, Negative: JVD, thyromegaly Chest Exam: Positive: Clear to auscultation, Normal air movement, Negative: Rales, Rhonchi, Wheezing Heart Exam: Positive: Rate Normal, Normal S1, Normal S2, Negative: Gallops, Murmurs, Rubs Abdomen Exam: Positive: Normal bowel sounds, Soft, Negative: Tenderness, Hepatospenomegaly, Mass Extremity Exam: Positive: Normal pulses (radial pulses and pedal pulse 2/4 bilaterally), Negative: Edema Skin Exam: Positive: Nl turgor and temperature, Other skin issue (minor healed lacerations and abrasions lower extremities bilaterally.), Negative: Rash, Breakdown Neuro Exam: Positive: Normal Speech, Cranial Nerves 3-12 NL, Other (upper [place] muscle strength 5 out of 5 bilaterally. Lower hip flexors 3 out of 5 bilaterally. Rest of lower extremity muscle strength 5 out of 5 bilaterally.) Psych Exam: Positive: Mental status NL, Mood NL, Memory Intact, Oriented x 3, Negative: Anxiety Other physical findings palpation of LS spine: illicits pain to paraspinal muscles. Assessment /Plan Problems (1) Intractable low back pain Status: Acute Problem Text: 01/20/17: continue with PT, pain medication. Consider MRI, pain management if no improvement with conservative measures. Patient has intractable low back pain. Patient has received morphine IV 4 mg twice since being in the ER. This has reduced the pain minimally. Patient had visited the ER on Monday and was given tizanidine, amitriptyline, hydrocodone and another muscle relaxer. Patient had been taking those regularly. CT scan of lumbar spine was performed and showed diffuse disc bulge at the L4-5 level with minimal thecal sac compression. Patient denies any red flag symptoms for back pain. CT scan did not show any concerning nerve compression. Pain is most likely from a musculoskeletal cause. Trying to control pain with muscle relaxers and pain medicine. Prescribing patient's Flexeril 4 mg every 8 hours and a lidocaine patch daily for pain. Also prescribed patient a K pad to lay on for muscle relief. For pain when necessary prescribing patient on Percocet for mild to moderate pain and 2 mg of morphine every 4 hours for severe pain. Referring patient for physical therapy. May consider referral to pain management if current treatment plan is unsuccessful. (2) History of stroke Problem Text: Patient has a recent history of stroke. Continue patient on home medication at this time. Monitor clinically as needed. (3) CAD (coronary artery disease) Status: Chronic Problem Text: History significant for stents and CABG. Patient takes Plavix and aspirin. (4) Hyperlipidemia Status: Chronic (5) HTN (hypertension) Status: Chronic Problem Text: Continue home medications and clinically monitor as needed. Will follow patient's blood pressure. (6) DM2 (diabetes mellitus, type 2) Status: Chronic Problem Text: Holding patient's home metformin Prescribing patient long-acting insulin 60 units a day and sliding scale with meals. Following hypoglycemic protocol. Monitor as needed. Consistent carbohydrate diet (7) Nicotine dependence in remission Problem Text: Patient reports quitting smoking about a month ago after his stroke. Monitor as needed. (8) Depression Status: Chronic Problem Text: Patient was taking Prozac but reports he is not taking at this time. Monitor as needed. (9) GERD (gastroesophageal reflux disease) Problem Text: Patient's home medication is not on pharmacy here. Prescribing patient Protonix 40 mg daily. Monitor as needed. Plan/VTE VTE Prophylaxis Ordered?: Yes (Lovenox 40mg daily SC) VS, I&O, 24H, Fishbone Vital Signs/I&O Vital Signs Date Time Temp Pulse Resp B/P (MAP) Pulse Ox O2 Delivery O2 Flow Rate FiO2 01/20/17 10:13 18 01/20/17 09:05 120/66 01/20/17 09:04 71 01/20/17 06:00 98.3 96 Room Air I&O- Last 24 Hours up to 6 AM 01/20/17 06:00 Intake Total 480 ml Balance 480 ml Laboratory Data 24H LABS Laboratory Tests 2 01/19/17 14:24: White Blood Count 8.0, Red Blood Count 5.43, Hemoglobin 16.9, Hematocrit 46.7, Mean Corpuscular Volume 85.9, Mean Corpuscular Hemoglobin 31.0, Mean Corpuscular Hemoglobin Concent 36.1, Red Cell Distribution Width 12.5, Platelet Count 255, Neutrophils (%) (Auto) 59.5, Lymphocytes (%) (Auto) 26.3, Monocytes ( %) (Auto) 6.5H, Eosinophils (%) (Auto) 4.8H, Basophils (%) (Auto) 1.4H, Neutrophils # (Auto) 4.8, Lymphocytes # (Auto) 2.2, Monocytes # (Auto) 0.5, Eosinophils # (Auto) 0.4, Basophils # (Auto) 0.1, Large Unclassified Cells % 1.5 , Large Unclassified Cells # 0.1, Anion Gap 8, Glomerular Filtration Rate > 60.0 , Blood Urea Nitrogen 13, Creatinine 1.02, Sodium Level 133L, Potassium Level 4.3, Chloride Level 102, Carbon Dioxide Level 23, Calcium Level 9.2 01/19/17 20:16: Bedside Glucose (Misc Panel) 365H 01/20/17 06:16: White Blood Count 8.8, Red Blood Count 5.26, Hemoglobin 16.5, Hematocrit 46.5, Mean Corpuscular Volume 88.3, Mean Corpuscular Hemoglobin 31.3, Mean Corpuscular Hemoglobin Concent 35.4, Red Cell Distribution Width 12.6, Platelet Count 234, Neutrophils (%) (Auto) 55.5, Lymphocytes (%) (Auto) 29.3, Monocytes ( %) (Auto) 7.5H, Eosinophils (%) (Auto) 4.3H, Basophils (%) (Auto) 1.5H, Neutrophils # (Auto) 4.9, Lymphocytes # (Auto) 2.8, Monocytes # (Auto) 0.7, Eosinophils # (Auto) 0.4, Basophils # (Auto) 0.1, Large Unclassified Cells % 1.8 , Large Unclassified Cells # 0.2, Anion Gap 6L, Glomerular Filtration Rate > 60.0, Blood Urea Nitrogen 19H, Creatinine 1.21, Sodium Level 130L, Potassium Level 4.3, Chloride Level 97L, Carbon Dioxide Level 27, Calcium Level 9.1 CBC/BMP Laboratory Tests 01/19/17 14:24 Red Blood Count 5.43, Mean Corpuscular Volume 85.9, Mean Corpuscular Hemoglobin 31.0, Mean Corpuscular Hemoglobin Concent 36.1, Red Cell Distribution Width 12.5 , Neutrophils (%) (Auto) 59.5, Lymphocytes (%) (Auto) 26.3, Monocytes (%) (Auto ) 6.5 H, Eosinophils (%) (Auto) 4.8 H, Basophils (%) (Auto) 1.4 H, Neutrophils # (Auto) 4.8, Lymphocytes # (Auto) 2.2, Monocytes # (Auto) 0.5, Eosinophils # ( Auto) 0.4, Basophils # (Auto) 0.1, Calcium Level 9.2 01/20/17 06:16 Red Blood Count 5.26, Mean Corpuscular Volume 88.3, Mean Corpuscular Hemoglobin 31.3, Mean Corpuscular Hemoglobin Concent 35.4, Red Cell Distribution Width 12.6 , Neutrophils (%) (Auto) 55.5, Lymphocytes (%) (Auto) 29.3, Monocytes (%) (Auto ) 7.5 H, Eosinophils (%) (Auto) 4.3 H, Basophils (%) (Auto) 1.5 H, Neutrophils # (Auto) 4.9, Lymphocytes # (Auto) 2.8, Monocytes # (Auto) 0.7, Eosinophils # ( Auto) 0.4, Basophils # (Auto) 0.1, Calcium Level 9.1 Cynthia Singer REHABILITATION THERAPIST Jan 20, 2017 10:48
[2017-01-20 14:00] VITALS: BP 133/79
[2017-01-20] MEDS ORDERED: DEXTROSE 50% 50 ML SYRINGE IV PRN (17:15)
[2017-01-20] MEDS ORDERED: GLUCOSE 4 GM CHEW TABLET PO PRN (17:15)
[2017-01-20] MEDS ORDERED: GLUCAGON FOR INJ 1 MG VIAL (J1610) SC PRN (17:15)
[2017-01-20] MEDS: AMITRIPTYLINE 25 MG TAB PO SCH (20:05)
[2017-01-20] MEDS: ZONISAMIDE 25 MG CAP (ZONEGRAN) PO SCH (20:06)
[2017-01-20] MEDS: ENOXAPARIN 40 MG/0.4 ML SYRINGE (J1650) SC SCH (20:06)
[2017-01-20] MEDS: DICLOFENAC EPOLAMINE 1.3 % PATCH TOP SCH (20:06)
[2017-01-20] MEDS: LIDOCAINE 5% (LIDODERM) PATCH TD SCH (20:07)
[2017-01-20] MEDS: LEVEMIR (INSULIN DETEMIR) 1 UNITS/0.01ML SC SCH (20:07)
[2017-01-20 22:00] VITALS: BP 96/66
[2017-01-21] MEDS: CYCLOBENZAPRINE 5MG TABLET PO SCH ×3 (05:35→20:37)
[2017-01-21 06:00] VITALS: BP 118/70
[2017-01-21] MEDS: DICLOFENAC EPOLAMINE 1.3 % PATCH TOP SCH ×2 (08:11→20:45)
[2017-01-21] MEDS: CARVedilol 12.5 MG TAB PO SCH ×2 (08:11→20:37)
[2017-01-21] MEDS: HumaLOG INSULIN (NovoLOG) PER UNIT SC SCH ×3 (08:11→16:35)
[2017-01-21] MEDS: CLOPIDOGREL 75 MG TAB PO SCH (08:12)
[2017-01-21] MEDS: PANTOPRAZOLE 40MG TAB (PROTONIX) PO SCH (08:12)
[2017-01-21] MEDS: LISINOPRIL *2.5 MG* TAB PO SCH (08:12)
[2017-01-21] MEDS: FENOFIBRATE 145 MG TAB (TRICOR) PO SCH (08:12)
[2017-01-21] MEDS: ASPIRIN 81 MG ENTERIC TAB PO SCH (08:12)
[2017-01-21] MEDS: GABAPENTIN 300 MG CAP PO SCH ×3 (08:12→20:37)
[2017-01-21] MEDS: **NOTE PATIENT COMMENT** MISC XX SCH (08:13)
[2017-01-21] MEDS: PERCOCET 5MG/325MG TAB PO PRN ×2 (08:52→16:35)
[2017-01-21 14:00] VITALS: BP 119/63
[2017-01-21] MEDS ORDERED: PERCOCET PO (14:40)
[2017-01-21] MEDS: MORPHINE 2 MG/ML 1ML SYRINGE IV PRN (15:26)
[2017-01-21] MEDS: ZONISAMIDE 25 MG CAP (ZONEGRAN) PO SCH (20:36)
[2017-01-21] MEDS: AMITRIPTYLINE 25 MG TAB PO SCH (20:37)
[2017-01-21] MEDS: ENOXAPARIN 40 MG/0.4 ML SYRINGE (J1650) SC SCH (20:38)
[2017-01-21] MEDS: LIDOCAINE 5% (LIDODERM) PATCH TD SCH (20:45)
[2017-01-21] MEDS: LEVEMIR (INSULIN DETEMIR) 1 UNITS/0.01ML SC SCH (20:45)
[2017-01-21 22:00] VITALS: BP 126/63
[2017-01-22] MEDS: PERCOCET 5MG/325MG TAB PO PRN (03:32)
[2017-01-22] MEDS: CYCLOBENZAPRINE 5MG TABLET PO SCH ×2 (05:16→15:17)
[2017-01-22 06:00] VITALS: BP 118/71
[2017-01-22] MEDS: **NOTE PATIENT COMMENT** MISC XX SCH (09:00)
[2017-01-22] MEDS: DICLOFENAC EPOLAMINE 1.3 % PATCH TOP SCH (09:18)
[2017-01-22] MEDS: PANTOPRAZOLE 40MG TAB (PROTONIX) PO SCH (09:19)
[2017-01-22] MEDS: CLOPIDOGREL 75 MG TAB PO SCH (09:19)
[2017-01-22] MEDS: FENOFIBRATE 145 MG TAB (TRICOR) PO SCH (09:19)
[2017-01-22 09:20] VITALS: BP 118/71
[2017-01-22] MEDS: CARVedilol 12.5 MG TAB PO SCH (09:20)
[2017-01-22] MEDS: GABAPENTIN 300 MG CAP PO SCH ×2 (09:20→15:17)
[2017-01-22] MEDS: LISINOPRIL *2.5 MG* TAB PO SCH (09:20)
[2017-01-22] MEDS: ASPIRIN 81 MG ENTERIC TAB PO SCH (09:20)
[2017-01-22] MEDS: HumaLOG INSULIN (NovoLOG) PER UNIT SC SCH ×2 (09:21→12:26)
--- NOTE | 2017-01-22 11:34 | DSES ---
DATE OF ADMISSION: 01/19/2017 DATE OF DISCHARGE: 01/21/17 (cancelled) DIAGNOSES: 1. Intractable lower back pain. 2. Type 2 diabetes mellitus. 3. Gastroesophageal reflux. 4. Chronic obstructive pulmonary disease (COPD). 5. Coronary artery disease. 6. Chronic degenerative disc disease. 7. Hypercholesterolemia. 8. Depression. 9. Hypertension. BRIEF HISTORY AND PHYSICAL: This is a 46-year-old gentleman with multiple medical problems who had been prior to his onset of back pain, had been moving a portable car part that did not bother him while he was doing that. However, he went into his washroom and then after he used the restroom to have a bowel movement he started get up and felt his back went out. It was very painful and stiff. He went to the emergency room (ER) and was treated and released, was not feeling improvement and returned to emergency room. Apparently, he also felt his back go out again after his initial return from the ER. Examination on admission showed middle-aged white male who had normal pulses in his legs, which actually was not documented, does not appear documented how tender his back was. His lungs are clear. His heart had a regular rhythm without any murmur, click or gallop. LABORATORY DATA: Hemoglobin was 16.9 and 16.5. Sedimentation rate 0.31. Albumin 3 and 3.2. Blood sugars ranged from 271-409. Lumbar spine CT showed diffuse disc bulging at L4-5 with minimal thecal sac compression. No foraminal encroachment. COURSE IN THE FACILITY: The patient was admitted to our facility for observation. He was given Flexeril scheduled and morphine as needed and Percocet as needed. He noticed that he was still fairly stiff and uncomfortable. He expressed the desire to go home and tough it out. He was also getting a Flector patch and a Lidoderm patch in the hospital that we do not feel that his insurance would pay for as an outpatient. He was discharged. So on the day of his discharge, his vital signs showed temperature 97.9, blood pressure 118/70, pulse 75. He was alert and cooperative. He seemed stiff and uncomfortable with movement but not horribly so. There was no edema. His recommendations were for as follows: To stay as active as possible but not do any lifting or bending. Resume his previous insulin dosage, which was 90 units of Lantus daily, Humalog sliding scale, Dexilant 60 mg daily, aspirin 81 mg daily, Plavix 75 mg daily, Tricor 145 mg daily, Prinivil 2.5 mg daily, cyclobenzaprine 5 mg daily, amitriptyline 25 mg at bedtime, Coreg 12.5 mg twice a day, Neurontin 300 mg three times a day, Zonegran 50 mg at bedtime. Prescription was sent in for him to obtain 5 days of Percocet 5/325 one every 6 hours as needed for mild to moderate pain. This was sent to [facility]. He also had a prescription at home for tizanidine and he could take that for muscle relaxation. The patient should use an [id number] Lidoderm patch. Followup in the office in 4 days. At the time of this dictation, the patient was set to be discharged on 01/21/17, however he began to have more back pain and the discharge was cancelled. See subsequent discharge note. KENDELL
[2017-01-22 14:00] VITALS: BP 130/68
== END 2017-01-22 16:30 | disposition home or self-care (01) ==
LOC: EDBD 12:33 → M ED 13:31 → M ED INP 16:53 → M MS5PR 17:45
PROVIDERS: ADMIT Internal Medicine; ATTEND Family Medicine
DX: M54.5 Low back pain (principal); K21.9 Gastro-esophageal reflux disease without esophagitis; J44.9 Chronic obstructive pulmonary disease, unspecified; E78.00 Pure hypercholesterolemia, unspecified; I10 Essential (primary) hypertension; I25.10 Atherosclerotic heart disease of native coronary artery without angina pectoris; E11.21 Type 2 diabetes mellitus with diabetic nephropathy; Z86.73 Personal history of transient ischemic attack (TIA), and cerebral infarction without residual deficits; Z79.82 Long term (current) use of aspirin; Z79.899 Other long term (current) drug therapy; Z79.4 Long term (current) use of insulin; Z79.02 Long term (current) use of antithrombotics/antiplatelets; F32.9 Major depressive disorder, single episode, unspecified
CPT/HCPCS: 36415; 72131; 80048; 85025; 96372; 96374; 96376; 97161; 97530; 99284; G0378; G8978; G8979; G8980; J1650

== ENCOUNTER → 2017-01-24 | Outpatient (REF) | payer MEDICARE, MEDICAID ==
[~2017-01-24] MED LIST changes: +AMIT25TA PO; +ASPI81TA85 PO; +HYDR-3713 PO; +METH1TAB40 PO; +PERCOCET PO; +PROZ10CA7 PO; +ROSU20TA; +TIZA4CAP3 PO; +ZONI25CA2 PO
== END ==
LOC: M SFHCPLAZ 12:10
PROVIDERS: ATTEND Physician Assistant Medical
DX: E11.69 Type 2 diabetes mellitus with other specified complication (principal); E87.1 Hypo-osmolality and hyponatremia; E53.8 Deficiency of other specified B group vitamins; M54.5 Low back pain; Z79.4 Long term (current) use of insulin; Z79.82 Long term (current) use of aspirin; Z79.891 Long term (current) use of opiate analgesic; Z79.899 Other long term (current) drug therapy
CPT/HCPCS: 81001; 81002; 87086; 96372; G0463; J3420

== ENCOUNTER → 2017-01-26 | Outpatient (REF) | payer MEDICARE, MEDICAID ==
[~2017-01-26] MED LIST changes: -ASPI81TA85 PO; +DEXI60CA PO; -DEXI60CA2 PO; +METF1000 PO; -METF10004 PO; +METF500T PO; -METF500T13 PO; +METH-107 PO; -METH1TAB40 PO; -PLAV1TAB2 PO; +PLAV75TA38 PO; -PROZ10CA7 PO; -ROSU20TA; -TOPA1TAB PO; +TOPA25TA10 PO
[2017-01-26 13:21] LABS: BASO # 0.1 K/mm3 (0.0-0.2); BASO % 1.5 % (0.0-1.0); EOS # 0.4 K/mm3 (0.0-0.50); EOS % 4.6 % (0.0-3.0); LARGE UNSTAINED CELL # 0.1 K/mm3 (0.0-0.4); LARGE UNSTAINED CELL % 1.8 % (0.0-4.0); LYMPH % 25.5 % (24.0-44.0); MEAN CORPUSCULAR HEMOGLOBIN 31.8 pg (27.0-33.0); MEAN CORPUSCULAR HGB CONC 35.2 g/dl (32.0-36.5); MEAN CORPUSCULAR VOLUME 90.4 fl (80.0-96.0); MONO # 0.5 K/mm3 (0.0-0.8); MONO % 6.5 % (0.0-5.0); NEUTROPHILS # 4.7 K/mm3 (1.8-7.7); PLATELET COUNT, AUTOMATED 275 k/mm3 (150-450); RED CELL DISTRIBUTION WIDTH 12.4 % (11.5-14.5); WHITE BLOOD COUNT 7.8 K/mm3 (4.0-10.0)
[2017-01-26 13:43] LABS: ALBUMIN 3.8 GM/DL (3.2-5.2); ALBUMIN/GLOBULIN RATIO 1.23 (1.00-1.93); ALKALINE PHOSPHATASE 132 U/L (45-117); ALT/SGPT 23 U/L (12-78); ANION GAP 9 MEQ/L (8-16); AST/SGOT 14 U/L (15-37); BILIRUBIN,TOTAL 0.4 MG/DL (0.2-1.0); BLOOD UREA NITROGEN 18 MG/DL (7-18); CALCIUM LEVEL 9.2 MG/DL (8.5-10.1); CARBON DIOXIDE LEVEL 25 MEQ/L (21-32); CHLORIDE LEVEL 97 MEQ/L (98-107); CREATININE FOR GFR 1.03 MG/DL (0.70-1.30); GLOMERULAR FILTRATION RATE > 60.0 (>60); POTASSIUM SERUM 4.6 MEQ/L (3.5-5.1); SODIUM LEVEL 131 MEQ/L (136-145); TOTAL PROTEIN 6.9 GM/DL (6.4-8.2)
[2017-01-26 13:55] LABS: GLUCOSE, FASTING 418 MG/DL (70-105)
[2017-01-26 13:57] LABS: ERYTHROCYTE SEDIMENTATION RATE 10 mm/hr (0-15)
== END ==
LOC: M SFHCPLAZ 09:21
PROVIDERS: ATTEND Physician Assistant Medical
DX: E11.69 Type 2 diabetes mellitus with other specified complication (principal); E87.1 Hypo-osmolality and hyponatremia

== ENCOUNTER → 2017-02-03 | Outpatient (REF) | payer MEDICARE, MEDICAID ==
[~2017-02-03] MED LIST changes: +ASPI81TA85 PO; -DEXI60CA PO; +DEXI60CA2 PO; -METF1000 PO; +METF10004 PO; -METF500T PO; +METF500T13 PO; -METH-107 PO; +METH1TAB40 PO; +PLAV1TAB2 PO; -PLAV75TA38 PO; +PROZ10CA7 PO; +ROSU20TA; +TOPA1TAB PO; -TOPA25TA10 PO
== END ==
LOC: M SFHCPLAZ 15:45
PROVIDERS: ATTEND Physician Assistant Medical
DX: E11.69 Type 2 diabetes mellitus with other specified complication (principal)
CPT/HCPCS: 82043; G0463

== ENCOUNTER → 2017-02-28 | Outpatient (CLI) | payer MEDICARE, MEDICAID ==
--- NOTE | 2017-02-28 13:36 | REP ---
Renal ultrasound: Comparison is a CT of the abdomen pelvis dated 11/23/2016. The kidneys are normal size. Right kidney measures 12.7 x 5.5 x 4.2 cm. Left kidney measures 13.5 x 6.5 x 6.1 cm. There are no renal calculi, hydronephrosis, masses or cysts on the right or left. With color Doppler assessment there are bilateral ureteral jets into the urinary bladder. The bladder is poorly distended and cannot be otherwise assessed by ultrasound at this time. Impression: Essentially negative renal ultrasound.
== END ==
LOC: M WHC 08:36
PROVIDERS: ATTEND Physician Assistant Medical
DX: R10.9 Unspecified abdominal pain (principal)

== ENCOUNTER 2017-03-07 18:27 | Emergency (ER) | payer MEDICARE, MEDICAID ==
[~2017-03-07] VITALS: Ht 175.3 cm; Wt 185.0 kg
[2017-03-07 18:27] VITALS: BP 154/89
[~2017-03-07 18:27] MED LIST changes: -ASPI81TA85 PO; -PROZ10CA7 PO; -ROSU20TA
== END 2017-03-07 21:30 | disposition home or self-care (01) ==
LOC: M ED 18:27
DX: L98.9 Disorder of the skin and subcutaneous tissue, unspecified (principal); T14.8 Other injury of unspecified body region; Y92.9 Unspecified place or not applicable; Y93.9 Activity, unspecified; I51.9 Heart disease, unspecified; E11.9 Type 2 diabetes mellitus without complications; Z79.82 Long term (current) use of aspirin; Z79.899 Other long term (current) drug therapy; Z79.4 Long term (current) use of insulin

== ENCOUNTER → 2017-03-09 | Outpatient (CLI) | payer MEDICARE, MEDICAID ==
[~2017-03-09] MED LIST changes: +ASPI81TA85 PO; +PROZ10CA7 PO; +ROSU20TA
[2017-03-09 14:00] LABS: MEAN CORPUSCULAR HEMOGLOBIN 30.6 pg (27.0-33.0); MEAN CORPUSCULAR HGB CONC 34.9 g/dl (32.0-36.5); MEAN CORPUSCULAR VOLUME 87.8 fl (80.0-96.0); RED CELL DISTRIBUTION WIDTH 12.3 % (11.5-14.5); WHITE BLOOD COUNT 7.6 K/mm3 (4.0-10.0)
[2017-03-09 14:04] LABS: ALBUMIN 3.9 GM/DL (3.2-5.2); ALBUMIN/GLOBULIN RATIO 1.26 (1.00-1.93); ALKALINE PHOSPHATASE 149 U/L (45-117); ALT/SGPT 23 U/L (12-78); ANION GAP 11 MEQ/L (8-16); AST/SGOT 11 U/L (15-37); BILIRUBIN,TOTAL 0.5 MG/DL (0.2-1.0); BLOOD UREA NITROGEN 18 MG/DL (7-18); CALCIUM LEVEL 9.7 MG/DL (8.5-10.1); CARBON DIOXIDE LEVEL 25 MEQ/L (21-32); CHLORIDE LEVEL 97 MEQ/L (98-107); CHOLESTEROL LEVEL 323 MG/DL (<200); CREATININE FOR GFR 1.06 MG/DL (0.70-1.30); GLOMERULAR FILTRATION RATE > 60.0 (>60); GLUCOSE, FASTING 362 MG/DL (70-105); MAGNESIUM LEVEL 2.1 MG/DL (1.8-2.4); POTASSIUM SERUM 5.1 MEQ/L (3.5-5.1); SODIUM LEVEL 133 MEQ/L (136-145); TRIGLYCERIDES LEVEL 1094 MG/DL (<150)
== END ==
LOC: M WUC 08:26
PROVIDERS: ATTEND Internal Medicine Cardiovascular Disease
DX: I50.42 Chronic combined systolic (congestive) and diastolic (congestive) heart failure (principal); E78.00 Pure hypercholesterolemia, unspecified; I25.10 Atherosclerotic heart disease of native coronary artery without angina pectoris

== ENCOUNTER → 2017-04-25 | Outpatient (REF) | payer MEDICARE, MEDICAID ==
[2017-04-25 18:32] LABS: VITAMIN B12 LEVEL 448 PG/ML (247-911)
[2017-04-25 18:42] LABS: CHOLESTEROL LEVEL 305 MG/DL (<200); TRIGLYCERIDES LEVEL 575 MG/DL (<150)
== END ==
LOC: M SFHCPLAZ 14:55
PROVIDERS: ATTEND Physician Assistant Medical
DX: M54.5 Low back pain (principal); E11.69 Type 2 diabetes mellitus with other specified complication; E78.2 Mixed hyperlipidemia; E53.8 Deficiency of other specified B group vitamins
CPT/HCPCS: 36415; 80061; 82550; 82607; 83036; G0463

== ENCOUNTER 2017-05-18 19:02 | Emergency (ER) | payer MEDICARE, MEDICAID ==
[~2017-05-18] VITALS: Ht 175.3 cm; Wt 79.5 kg
[~2017-05-18 19:02] MED LIST changes: -ASPI81TA85 PO; -PROZ10CA7 PO; -ROSU20TA
[2017-05-18 19:03] VITALS: BP 133/70
[2017-05-18] MEDS ORDERED: AMIT10TA PO (19:35)
[2017-05-18] MEDS ORDERED: PROZ10CA7 PO (19:41)
[2017-05-18] MEDS ORDERED: ASPI81TA85 PO (19:41)
[2017-05-18] MEDS ORDERED: ROSU20TA (19:41)
== END 2017-05-18 22:58 | disposition home or self-care (01) ==
LOC: M ED 19:02
DX: R07.81 Pleurodynia (principal); I25.10 Atherosclerotic heart disease of native coronary artery without angina pectoris; I25.2 Old myocardial infarction; E11.9 Type 2 diabetes mellitus without complications; I10 Essential (primary) hypertension; E78.5 Hyperlipidemia, unspecified; Z86.73 Personal history of transient ischemic attack (TIA), and cerebral infarction without residual deficits; J45.909 Unspecified asthma, uncomplicated; Z95.5 Presence of coronary angioplasty implant and graft; Z95.1 Presence of aortocoronary bypass graft; Z95.0 Presence of cardiac pacemaker; F17.200 Nicotine dependence, unspecified, uncomplicated; Z79.82 Long term (current) use of aspirin; Z79.02 Long term (current) use of antithrombotics/antiplatelets; Z79.4 Long term (current) use of insulin; Z79.899 Other long term (current) drug therapy; Z53.21 Procedure and treatment not carried out due to patient leaving prior to being seen by health care provider

== ENCOUNTER → 2017-07-05 | Outpatient (CLI) | payer MEDICARE, MEDICAID ==
[~2017-07-05] MED LIST changes: +ASPI81TA85 PO; +PROZ10CA7 PO; +ROSU20TA
--- NOTE | 2017-07-08 11:26 | SLEEPHOME ---
DATE OF PROCEDURE: 07/05/2017 REFERRING PHYSICIAN: Ilana Garner INTERPRETATION: Diagnostic home sleep testing was performed due to concern for the obstructive sleep apnea syndrome in this patient with a history of ineffective sleep and snoring. For testing, a NOX-T3 respiratory monitoring device was used. Continuous record was made of pulse, oxygen saturation, airflow, chest and abdominal strain, and body position. 10 hours and 59 minutes of data were reviewed. Of these, 7 hours and 44 minutes were marked as time in bed. During the interval marked time in bed, there were 68 respiratory events were identified of 10 seconds in duration or greater for a respiratory event index of 8.8. The events were primarily obstructive. Occasional mixed and central apneas were seen. The events were more frequent, but not exclusive to the supine posture. Baseline saturation was 92%. Oxygen desaturations were seen as low as 86%. Testing was performed in both the supine and nonsupine positions. IMPRESSION: Abnormal home sleep testing with repetitive respiratory events and oxygen desaturations to 86% with a respiratory event index of 8.8, is consistent with the obstructive sleep apnea syndrome. RECOMMENDATION: Sleep position for avoidance of the supine posture may be helpful. If the patient's symptoms persist, referral for formal sleep evaluation and in laboratory pressure titration would be helpful.
== END ==
LOC: M SLEEP HO 08:33
PROVIDERS: ATTEND Physician Assistant Medical
DX: G47.33 Obstructive sleep apnea (adult) (pediatric) (principal)

== ENCOUNTER → 2017-07-12 | Outpatient (REF) | payer MEDICARE, MEDICAID ==
[2017-07-12 18:11] LABS: ALBUMIN 3.8 GM/DL (3.2-5.2); ALBUMIN/GLOBULIN RATIO 1.09 (1.00-1.93); ALKALINE PHOSPHATASE 115 U/L (45-117); ALT/SGPT 17 U/L (12-78); ANION GAP 5 MEQ/L (8-16); AST/SGOT 7 U/L (7-37); BILIRUBIN,TOTAL 0.3 MG/DL (0.2-1.0); BLOOD UREA NITROGEN 11 MG/DL (7-18); CALCIUM LEVEL 9.6 MG/DL (8.5-10.1); CARBON DIOXIDE LEVEL 29 MEQ/L (21-32); CHLORIDE LEVEL 99 MEQ/L (98-107); CREATININE FOR GFR 0.82 MG/DL (0.70-1.30); GLOMERULAR FILTRATION RATE > 60.0 (>60); GLUCOSE, FASTING 252 MG/DL (70-105); MAGNESIUM LEVEL 1.9 MG/DL (1.8-2.4); POTASSIUM SERUM 4.2 MEQ/L (3.5-5.1); SODIUM LEVEL 133 MEQ/L (136-145); TOTAL PROTEIN 7.3 GM/DL (6.4-8.2)
== END ==
LOC: M SFHCPLAZ 15:49
PROVIDERS: ATTEND Physician Assistant Medical
DX: E11.69 Type 2 diabetes mellitus with other specified complication (principal); R25.2 Cramp and spasm
CPT/HCPCS: 36415; 80053; 83036; 83735; G0463

== ENCOUNTER → 2017-08-31 | Outpatient (REF) | payer MEDICARE, MEDICAID ==
[2017-08-31 14:22] LABS: ALBUMIN 3.8 GM/DL (3.2-5.2); ALBUMIN/GLOBULIN RATIO 1.09 (1.00-1.93); ALKALINE PHOSPHATASE 116 U/L (45-117); ALT/SGPT 17 U/L (12-78); ANION GAP 9 MEQ/L (8-16); AST/SGOT 13 U/L (7-37); BILIRUBIN,TOTAL 0.5 MG/DL (0.2-1.0); BLOOD UREA NITROGEN 19 MG/DL (7-18); CALCIUM LEVEL 9.3 MG/DL (8.5-10.1); CARBON DIOXIDE LEVEL 24 MEQ/L (21-32); CHLORIDE LEVEL 99 MEQ/L (98-107); CREATININE FOR GFR 0.96 MG/DL (0.70-1.30); GLOMERULAR FILTRATION RATE > 60.0 (>60); GLUCOSE, FASTING 300 MG/DL (70-100); POTASSIUM SERUM 4.7 MEQ/L (3.5-5.1); SODIUM LEVEL 132 MEQ/L (136-145); TOTAL PROTEIN 7.3 GM/DL (6.4-8.2)
[2017-08-31 14:34] LABS: ESTIMATED AVERAGE GLUCOSE 266 MG/DL (60-110); HEMOGLOBIN A1c 10.9 %
== END ==
LOC: M SFHCPLAZ 10:28
DX: E11.69 Type 2 diabetes mellitus with other specified complication (principal)
CPT/HCPCS: 80053

== ENCOUNTER → 2017-09-29 | Outpatient (REF) | payer MEDICARE, MEDICAID ==
[2017-09-29 15:55] LABS: BASO # 0.1 10^3/uL (0.0-0.2); BASO % 1.1 % (0.0-1.0); EOS # 0.3 10^3/uL (0.0-0.50); EOS % 4.7 % (0.0-3.0); HEMATOCRIT 45.8 % (42.0-52.0); HEMOGLOBIN 15.7 g/dl (14.0-18.0); IMMATURE GRANULOCYTE % 0.3 % (0-3.0); LYMPH # 2.5 10^3/uL (1.5-4.5); LYMPH % 34.3 % (24.0-44.0); MEAN CORPUSCULAR HEMOGLOBIN 29.4 pg (27.0-33.0); MEAN CORPUSCULAR HGB CONC 34.3 g/dl (32.0-36.5); MEAN CORPUSCULAR VOLUME 85.8 fl (80.0-96.0); MONO # 0.6 10^3/uL (0.0-0.8); MONO % 7.9 % (0.0-5.0); NEUTROPHILS # 3.7 10^3/uL (1.8-7.7); NEUTROPHILS % 51.7 % (36.0-66.0); PLATELET COUNT, AUTOMATED 193 10^3/uL (150-450); RED BLOOD COUNT 5.34 10^6/uL (4.30-6.10); RED CELL DISTRIBUTION WIDTH 12.5 % (11.5-14.5); WHITE BLOOD COUNT 7.2 10^3/uL (4.0-10.0)
[2017-09-29 16:08] LABS: ALBUMIN 3.3 GM/DL (3.2-5.2); ALBUMIN/GLOBULIN RATIO 1.03 (1.00-1.93); ALKALINE PHOSPHATASE 115 U/L (45-117); ALT/SGPT 16 U/L (12-78); ANION GAP 10 MEQ/L (8-16); AST/SGOT 11 U/L (7-37); BILIRUBIN,TOTAL 0.4 MG/DL (0.2-1.0); BLOOD UREA NITROGEN 18 MG/DL (7-18); CALCIUM LEVEL 8.9 MG/DL (8.5-10.1); CARBON DIOXIDE LEVEL 25 MEQ/L (21-32); CHLORIDE LEVEL 102 MEQ/L (98-107); CREATININE FOR GFR 0.92 MG/DL (0.70-1.30); GLOMERULAR FILTRATION RATE > 60.0 (>60); GLUCOSE, FASTING 274 MG/DL (70-100); POTASSIUM SERUM 4.3 MEQ/L (3.5-5.1); SODIUM LEVEL 137 MEQ/L (136-145); TOTAL PROTEIN 6.5 GM/DL (6.4-8.2)
== END ==
LOC: M SFHCPLAZ 12:39
DX: J11.1 Influenza due to unidentified influenza virus with other respiratory manifestations (principal)
CPT/HCPCS: 80053

== ENCOUNTER 2017-10-25 13:14 | Observation (INO) | payer MEDICARE, MEDICAID ==
[2017-10-25] MEDS: MECLIZINE 25 MG TABLET PO ×3 (13:59)
[2017-10-25 14:28] LABS: BASO # 0.2 10^3/uL (0.0-0.2); BASO % 1.3 % (0.0-1.0); EOS # 0.7 10^3/uL (0.0-0.50); HEMATOCRIT 46.8 % (42.0-52.0); HEMOGLOBIN 16.4 g/dl (14.0-18.0); IMMATURE GRANULOCYTE % 0.4 % (0-3.0); LYMPH # 3.7 10^3/uL (1.5-4.5); MEAN CORPUSCULAR HEMOGLOBIN 29.7 pg (27.0-33.0); MEAN CORPUSCULAR VOLUME 84.6 fl (80.0-96.0); MONO # 0.9 10^3/uL (0.0-0.8); MONO % 7.9 % (0.0-5.0); NEUTROPHILS % 52.4 % (36.0-66.0); PLATELET COUNT, AUTOMATED 259 10^3/uL (150-450); RED BLOOD COUNT 5.53 10^6/uL (4.30-6.10); RED CELL DISTRIBUTION WIDTH 12.9 % (11.5-14.5); WHITE BLOOD COUNT 11.5 10^3/uL (4.0-10.0)
[2017-10-25 14:48] LABS: AMPHETAMINES LEVEL URINE NEGATIVE (NEGATIVE); BARBITURATES URINE NEGATIVE (NEGATIVE); BENZODIAZEPINES URINE NEGATIVE (NEGATIVE); CANNABINOIDS URINE NEGATIVE (NEGATIVE); COCAINE METABOLITE URINE NEGATIVE (NEGATIVE); METHADONE URINE NEGATIVE (NEGATIVE); OPIATES URINE NEGATIVE (NEGATIVE); PHENCYCLIDINE URINE NEGATIVE (NEGATIVE)
[2017-10-25 14:51] LABS: ALBUMIN/GLOBULIN RATIO 1.08 (1.00-1.93); ALKALINE PHOSPHATASE 100 U/L (45-117); ALT/SGPT 15 U/L (12-78); ANION GAP 6 MEQ/L (8-16); AST/SGOT 9 U/L (7-37); BILIRUBIN,DIRECT 0.1 MG/DL (0.0-0.2); BILIRUBIN,TOTAL 0.5 MG/DL (0.2-1.0); BLOOD UREA NITROGEN 10 MG/DL (7-18); CALCIUM LEVEL 9.3 MG/DL (8.5-10.1); CARBON DIOXIDE LEVEL 25 MEQ/L (21-32); CHLORIDE LEVEL 105 MEQ/L (98-107); CPK CREATINE PHOSPHOKINASE 68 U/L (39-308); CREATININE FOR GFR 0.84 MG/DL (0.70-1.30); ETHYL ALCOHOL (ETHANOL) 0.005 % (0.000-0.010); GLOMERULAR FILTRATION RATE > 60.0 (>60); GLUCOSE, FASTING 151 MG/DL (70-100); SODIUM LEVEL 136 MEQ/L (136-145); TOTAL PROTEIN 7.7 GM/DL (6.4-8.2); TROPONIN I 0.04 NG/ML (< 0.10)
[2017-10-25 14:56] LABS: CK-MB VALUE MASS < 1.0 NG/ML (<3.6)
[2017-10-25 14:57] LABS: MB/CK RELATIVE INDEX 1.47 (< OR =4); THYROID STIMULATING HORMONE 0.668 uIU/ML (0.358-3.740)
[2017-10-25 18:40] LABS: CK-MB VALUE MASS < 1.0 NG/ML (<3.6); CPK CREATINE PHOSPHOKINASE 36 U/L (39-308); MB/CK RELATIVE INDEX 2.77 (< OR =4); TROPONIN I 0.05 NG/ML (< 0.10)
[2017-10-25] MEDS ORDERED: GLUCAGON FOR INJ 1 MG VIAL (J1610) SC ×3 (21:30)
[2017-10-25] MEDS ORDERED: GLUCOSE 4 GM CHEW TABLET PO ×3 (21:30)
[2017-10-25] MEDS ORDERED: DEXTROSE 50% 50 ML SYRINGE IV ×3 (21:30)
[2017-10-25 23:07] LABS: BEDSIDE GLUCOSE 374 MG/DL (70-105)
[2017-10-25] MEDS: HumaLOG INSULIN (NovoLOG) PER UNIT SC ×3 (23:39)
[2017-10-25] MEDS: LEVEMIR (INSULIN DETEMIR) 1 UNITS/0.01ML SC ×3 (23:40)
[2017-10-25] MEDS: GABAPENTIN 300 MG CAP PO ×3 (23:40)
[2017-10-25] MEDS: ACETAMINOPHEN TAB 650MG DOSE (2X325MG) PO ×3 (23:40)
[2017-10-25] MEDS: CARVedilol 12.5 MG TAB PO ×3 (23:41)
[2017-10-25] MEDS: FENOFIBRATE 145 MG TAB (TRICOR) PO ×3 (23:41)
[2017-10-26 07:57] LABS: BEDSIDE GLUCOSE 207 MG/DL (70-105)
[2017-10-26] MEDS: LEVEMIR (INSULIN DETEMIR) 1 UNITS/0.01ML SC ×6 (08:40→21:59)
[2017-10-26] MEDS: VITAMIN D 1,000 INTERNATIONAL UNITS TABLET PO ×3 (08:41)
[2017-10-26] MEDS: HumaLOG INSULIN (NovoLOG) PER UNIT SC ×12 (08:41→21:00)
[2017-10-26] MEDS: GABAPENTIN 300 MG CAP PO ×9 (08:42→22:00)
[2017-10-26] MEDS: CLOPIDOGREL 75 MG TAB PO ×3 (08:42)
[2017-10-26] MEDS: ASPIRIN 81 MG ENTERIC TAB PO ×3 (08:42)
[2017-10-26] MEDS: FLUoxetine 20 MG CAP PO ×3 (08:43)
[2017-10-26] MEDS: ENOXAPARIN 40 MG/0.4 ML SYRINGE (J1650) SC ×3 (08:43)
[2017-10-26] MEDS: CARVedilol 12.5 MG TAB PO ×6 (08:43→22:00)
[2017-10-26 11:36] LABS: BEDSIDE GLUCOSE 246 MG/DL (70-105)
[2017-10-26] MEDS ORDERED: ISOVUE-370 76% 100ML VIAL (Q9967) As Ordered ×3 (17:20)
[2017-10-26 17:27] LABS: BEDSIDE GLUCOSE 191 MG/DL (70-105)
[2017-10-26] MEDS: NICOTINE 21MG/24HR 1 EA TRANSDERMAL TD ×3 (17:51)
[2017-10-26 20:16] LABS: BEDSIDE GLUCOSE 214 MG/DL (70-105)
[2017-10-26] MEDS: tiZANidine 4 MG TAB PO ×3 (21:59)
[2017-10-26] MEDS: FENOFIBRATE 145 MG TAB (TRICOR) PO ×3 (21:59)
[2017-10-26] MEDS: ACETAMINOPHEN TAB 650MG DOSE (2X325MG) PO ×3 (22:01)
[2017-10-27 06:12] LABS: BEDSIDE GLUCOSE 183 MG/DL (70-105)
[2017-10-27] MEDS: HumaLOG INSULIN (NovoLOG) PER UNIT SC ×6 (07:30→12:14)
[2017-10-27] MEDS: ENOXAPARIN 40 MG/0.4 ML SYRINGE (J1650) SC ×3 (09:00)
[2017-10-27] MEDS: LEVEMIR (INSULIN DETEMIR) 1 UNITS/0.01ML SC ×3 (09:33)
[2017-10-27] MEDS: ASPIRIN 81 MG ENTERIC TAB PO ×3 (09:35)
[2017-10-27] MEDS: CLOPIDOGREL 75 MG TAB PO ×3 (09:35)
[2017-10-27] MEDS: VITAMIN D 1,000 INTERNATIONAL UNITS TABLET PO ×3 (09:35)
[2017-10-27] MEDS: GABAPENTIN 300 MG CAP PO ×3 (09:35)
[2017-10-27] MEDS: FLUoxetine 20 MG CAP PO ×3 (09:35)
[2017-10-27] MEDS: CARVedilol 12.5 MG TAB PO ×3 (09:35)
[2017-10-27] MEDS: NICOTINE 21MG/24HR 1 EA TRANSDERMAL TD ×3 (09:36)
[2017-10-27] MEDS: ROSUVASTATIN 10 MG TAB (CRESTOR) PO ×3 (09:52)
[2017-10-27 11:34] LABS: BEDSIDE GLUCOSE 303 MG/DL (70-105)
== END 2017-10-27 13:00 | disposition home or self-care (01) ==
LOC: M ED 13:14 → M ED INP 21:21 → M MS5PR 22:47
DX: R53.1 Weakness (principal); I11.9 Hypertensive heart disease without heart failure; E78.5 Hyperlipidemia, unspecified; I25.10 Atherosclerotic heart disease of native coronary artery without angina pectoris; E11.40 Type 2 diabetes mellitus with diabetic neuropathy, unspecified; J44.9 Chronic obstructive pulmonary disease, unspecified; Z86.73 Personal history of transient ischemic attack (TIA), and cerebral infarction without residual deficits; R42 Dizziness and giddiness; Z95.5 Presence of coronary angioplasty implant and graft; Z95.1 Presence of aortocoronary bypass graft; Z95.810 Presence of automatic (implantable) cardiac defibrillator; Z79.899 Other long term (current) drug therapy; Z79.02 Long term (current) use of antithrombotics/antiplatelets; Z79.4 Long term (current) use of insulin; Z79.82 Long term (current) use of aspirin; F17.200 Nicotine dependence, unspecified, uncomplicated
CPT/HCPCS: Q9967

== ENCOUNTER 2017-12-24 13:31 | Inpatient (IN) | payer MEDICARE, MEDICAID ==
[2017-12-24 14:01] LABS: BASO # 0.2 10^3/uL (0.0-0.2); BASO % 1.6 % (0.0-1.0); EOS # 0.5 10^3/uL (0.0-0.50); EOS % 4.3 % (0.0-3.0); HEMATOCRIT 50.2 % (42.0-52.0); HEMOGLOBIN 17.7 g/dl (13.5-17.5); IMMATURE GRANULOCYTE % 0.5 % (0-3.0); LYMPH # 3.8 10^3/uL (1.5-4.5); LYMPH % 33.8 % (24.0-44.0); MEAN CORPUSCULAR HEMOGLOBIN 29.5 pg (27.0-33.0); MEAN CORPUSCULAR HGB CONC 35.3 g/dl (32.0-36.5); MEAN CORPUSCULAR VOLUME 83.7 fl (80.0-96.0); MONO # 0.8 10^3/uL (0.0-0.8); MONO % 7.2 % (0.0-5.0); NEUTROPHILS # 5.9 10^3/uL (1.8-7.7); NEUTROPHILS % 52.6 % (36.0-66.0); PLATELET COUNT, AUTOMATED 294 10^3/uL (150-450); RED CELL DISTRIBUTION WIDTH 12.5 % (11.5-14.5); WHITE BLOOD COUNT 11.3 10^3/uL (4.0-10.0)
[2017-12-24 14:14] LABS: INR 0.91; PARTIAL THROMBOPLASTIN TIME 26.3 SECONDS (26.8-37.9); PROTHROMBIN TIME 12.3 SECONDS (12.4-14.5)
[2017-12-24 14:20] LABS: ALBUMIN 3.6 GM/DL (3.2-5.2); ALBUMIN/GLOBULIN RATIO 0.97 (1.00-1.93); ALKALINE PHOSPHATASE 117 U/L (45-117); ALT/SGPT 20 U/L (12-78); ANION GAP 7 MEQ/L (8-16); AST/SGOT 14 U/L (7-37); BILIRUBIN,DIRECT < 0.1 MG/DL (0.0-0.2); BILIRUBIN,TOTAL 0.4 MG/DL (0.2-1.0); BLOOD UREA NITROGEN 10 MG/DL (7-18); CALCIUM LEVEL 8.9 MG/DL (8.5-10.1); CARBON DIOXIDE LEVEL 24 MEQ/L (21-32); CHLORIDE LEVEL 101 MEQ/L (98-107); CPK CREATINE PHOSPHOKINASE 80 U/L (39-308); CREATININE FOR GFR 0.96 MG/DL (0.70-1.30); GLOMERULAR FILTRATION RATE > 60.0 (>60); GLUCOSE, FASTING 290 MG/DL (70-100); LIPASE 178 U/L (73-393); POTASSIUM SERUM 4.2 MEQ/L (3.5-5.1); SODIUM LEVEL 132 MEQ/L (136-145); TOTAL PROTEIN 7.3 GM/DL (6.4-8.2); TROPONIN I 0.04 NG/ML (< 0.10)
[2017-12-24 14:25] LABS: MB/CK RELATIVE INDEX 1.25 (< OR =4)
[2017-12-24] MEDS ORDERED: ISOVUE-370 76% 100ML VIAL (Q9967) As Ordered (14:55)
[2017-12-24] MEDS: ONDANSETRON 4MG/2ML VIAL (J2405) IV (15:25)
[2017-12-24] MEDS: MORPHINE 4 MG/ML 1ML VIAL/SYRINGE (J2270) IV (15:25)
[2017-12-24] MEDS: diphenhydrAMINE INJ 50MG/ML VIAL (J1200) IV (15:42)
[2017-12-24] MEDS: METOCLOPRAMIDE INJ 10MG/2ML VIAL (J2765) IV (15:42)
[2017-12-24 17:52] LABS: CPK CREATINE PHOSPHOKINASE 65 U/L (39-308); MB/CK RELATIVE INDEX 1.53 (< OR =4); TROPONIN I 0.05 NG/ML (< 0.10)
[2017-12-24] MEDS ORDERED: GLUCOSE 4 GM CHEW TABLET PO (18:15)
[2017-12-24] MEDS ORDERED: hydrOXYzine 10 MG TAB PO (18:15)
[2017-12-24] MEDS ORDERED: DEXTROSE 50% 50 ML SYRINGE IV (18:15)
[2017-12-24] MEDS ORDERED: tiZANidine 4 MG TAB PO (18:15)
[2017-12-24] MEDS ORDERED: GLUCAGON FOR INJ 1 MG VIAL (J1610) SC (18:15)
[2017-12-24] MEDS ORDERED: ONDANSETRON 4MG/2ML VIAL (J2405) IV (18:15)
[2017-12-24] MEDS: CARVedilol 12.5 MG TAB PO (20:38)
[2017-12-24] MEDS: ZONISAMIDE 100 MG CAP (ZONEGRAN) PO (20:38)
[2017-12-24] MEDS: ROSUVASTATIN 10 MG TAB (CRESTOR) PO (20:38)
[2017-12-24] MEDS: GABAPENTIN 300 MG CAP PO (20:38)
[2017-12-24] MEDS: AMITRIPTYLINE 10 MG TAB PO (20:38)
[2017-12-24] MEDS: OMEPRAZOLE 20 MG CAP PO (20:38)
[2017-12-24] MEDS: HumaLOG INSULIN (NovoLOG) PER UNIT SC (20:39)
[2017-12-25 06:36] LABS: HEMATOCRIT 49.1 % (42.0-52.0); HEMOGLOBIN 17.1 g/dl (13.5-17.5); MEAN CORPUSCULAR HEMOGLOBIN 29.4 pg (27.0-33.0); MEAN CORPUSCULAR HGB CONC 34.8 g/dl (32.0-36.5); MEAN CORPUSCULAR VOLUME 84.4 fl (80.0-96.0); PLATELET COUNT, AUTOMATED 267 10^3/uL (150-450); RED BLOOD COUNT 5.82 10^6/uL (4.30-6.10); RED CELL DISTRIBUTION WIDTH 12.9 % (11.5-14.5); WHITE BLOOD COUNT 20.3 10^3/uL (4.0-10.0)
[2017-12-25 07:05] LABS: ANION GAP 8 MEQ/L (8-16); BLOOD UREA NITROGEN 13 MG/DL (7-18); CALCIUM LEVEL 9.1 MG/DL (8.5-10.1); CARBON DIOXIDE LEVEL 25 MEQ/L (21-32); CHLORIDE LEVEL 103 MEQ/L (98-107); CREATININE FOR GFR 1.07 MG/DL (0.70-1.30); GLOMERULAR FILTRATION RATE > 60.0 (>60); GLUCOSE, FASTING 333 MG/DL (70-100); POTASSIUM SERUM 4.4 MEQ/L (3.5-5.1); SODIUM LEVEL 136 MEQ/L (136-145)
[2017-12-25] MEDS: AMITRIPTYLINE 10 MG TAB PO (09:00)
[2017-12-25] MEDS: TAMSULOSIN 0.4 MG CAP PO (09:04)
[2017-12-25] MEDS: ASPIRIN 81 MG ENTERIC TAB PO (09:04)
[2017-12-25] MEDS: CARVedilol 12.5 MG TAB PO (09:04)
[2017-12-25] MEDS: FLUoxetine 20 MG CAP PO (09:04)
[2017-12-25] MEDS: GABAPENTIN 300 MG CAP PO (09:04)
[2017-12-25] MEDS: CLOPIDOGREL 75 MG TAB PO (09:04)
[2017-12-25] MEDS: VITAMIN D 1,000 INTERNATIONAL UNITS TABLET PO (09:04)
[2017-12-25] MEDS: HumaLOG INSULIN (NovoLOG) PER UNIT SC ×2 (09:05→12:47)
[2017-12-25] MEDS: buPROPion **XL** TABLET 150MG (WELLBUTRIN XL) PO (09:59)
[2017-12-25 20:40] LABS: BEDSIDE GLUCOSE 333 MG/DL (70-105)
[2017-12-25 20:40] LABS: BEDSIDE GLUCOSE 323 MG/DL (70-105)
== END 2017-12-25 15:56 | disposition home or self-care (01) | DRG 103 ==
LOC: M ED 13:31 → M ED INP 18:18
DX: G43.109 Migraine with aura, not intractable, without status migrainosus (principal); I10 Essential (primary) hypertension; I25.10 Atherosclerotic heart disease of native coronary artery without angina pectoris; E11.40 Type 2 diabetes mellitus with diabetic neuropathy, unspecified; K21.9 Gastro-esophageal reflux disease without esophagitis; F17.210 Nicotine dependence, cigarettes, uncomplicated; N40.0 Benign prostatic hyperplasia without lower urinary tract symptoms; F32.9 Major depressive disorder, single episode, unspecified; F41.9 Anxiety disorder, unspecified; Z86.73 Personal history of transient ischemic attack (TIA), and cerebral infarction without residual deficits; Z95.5 Presence of coronary angioplasty implant and graft; Z98.52 Vasectomy status; Z95.810 Presence of automatic (implantable) cardiac defibrillator; Z79.82 Long term (current) use of aspirin; Z79.4 Long term (current) use of insulin; Z79.02 Long term (current) use of antithrombotics/antiplatelets; Z79.899 Other long term (current) drug therapy

== ENCOUNTER → 2017-12-28 | Outpatient (REF) | payer MEDICARE, MEDICAID ==
[2017-12-28 13:39] LABS: BASO # 0.2 10^3/uL (0.0-0.2); BASO % 1.6 % (0.0-1.0); EOS # 0.4 10^3/uL (0.0-0.50); EOS % 3.8 % (0.0-3.0); HEMATOCRIT 48.2 % (42.0-52.0); HEMOGLOBIN 16.9 g/dl (13.5-17.5); IMMATURE GRANULOCYTE % 0.4 % (0-3.0); LYMPH # 2.4 10^3/uL (1.5-4.5); LYMPH % 23.4 % (24.0-44.0); MEAN CORPUSCULAR HEMOGLOBIN 29.8 pg (27.0-33.0); MEAN CORPUSCULAR HGB CONC 35.1 g/dl (32.0-36.5); MEAN CORPUSCULAR VOLUME 84.9 fl (80.0-96.0); MONO # 0.7 10^3/uL (0.0-0.8); MONO % 6.6 % (0.0-5.0); NEUTROPHILS # 6.6 10^3/uL (1.8-7.7); NEUTROPHILS % 64.2 % (36.0-66.0); PLATELET COUNT, AUTOMATED 250 10^3/uL (150-450); RED BLOOD COUNT 5.68 10^6/uL (4.30-6.10); RED CELL DISTRIBUTION WIDTH 12.8 % (11.5-14.5); WHITE BLOOD COUNT 10.3 10^3/uL (4.0-10.0)
[2017-12-28 13:59] LABS: ESTIMATED AVERAGE GLUCOSE 266 MG/DL (60-110); HEMOGLOBIN A1c 10.9 %
[2017-12-28 14:01] LABS: ALBUMIN 3.7 GM/DL (3.2-5.2); ALBUMIN/GLOBULIN RATIO 1.19 (1.00-1.93); ALKALINE PHOSPHATASE 128 U/L (45-117); ALT/SGPT 18 U/L (12-78); ANION GAP 9 MEQ/L (8-16); AST/SGOT 6 U/L (7-37); BILIRUBIN,TOTAL 0.5 MG/DL (0.2-1.0); BLOOD UREA NITROGEN 9 MG/DL (7-18); C REACTIVE PROTEIN QUANTITATIV 0.31 MG/DL (0.00-0.30); CALCIUM LEVEL 9.1 MG/DL (8.5-10.1); CARBON DIOXIDE LEVEL 23 MEQ/L (21-32); CHLORIDE LEVEL 102 MEQ/L (98-107); GLOMERULAR FILTRATION RATE > 60.0 (>60); GLUCOSE, FASTING 319 MG/DL (70-100); POTASSIUM SERUM 4.4 MEQ/L (3.5-5.1); SODIUM LEVEL 134 MEQ/L (136-145); TOTAL PROTEIN 6.8 GM/DL (6.4-8.2)
[2017-12-28 14:04] LABS: CREATININE, URINE 72.2 MG/DL; MAU/CREAT RATIO 990.3 MCG/MG (0.0-30.0)
[2017-12-28 14:16] LABS: ERYTHROCYTE SEDIMENTATION RATE 2 mm/hr (0-15)
== END ==
LOC: M SFHCPLAZ 09:10
DX: J32.1 Chronic frontal sinusitis (principal); E11.69 Type 2 diabetes mellitus with other specified complication
CPT/HCPCS: 80053

== ENCOUNTER → 2018-01-04 | Outpatient (CLI) | payer MEDICARE, MEDICAID | LOC: M RAD 09:07 | DX: J32.1 Chronic frontal sinusitis (principal) | CPT/HCPCS: 70486 ==

== ENCOUNTER → 2018-02-06 | Outpatient (CLI) | payer MEDICARE, MEDICAID ==
[2018-02-06 09:04] LABS: CHOLESTEROL LEVEL 286 MG/DL (<200); CHOLESTEROL RISK RATIO 8.411 (<5); HDL CHOLESTEROL 34 MG/DL (>40); NON-HDL-C 252 MG/DL; TRIGLYCERIDES LEVEL 275 MG/DL (<150)
== END ==
LOC: M LAB 07:47
DX: I25.10 Atherosclerotic heart disease of native coronary artery without angina pectoris (principal)
CPT/HCPCS: 80061

== ENCOUNTER → 2018-05-18 | Outpatient (REF) | payer MEDICARE, MEDICAID ==
[2018-05-18 12:28] LABS: ALBUMIN/GLOBULIN RATIO 1.54 (1.00-1.93); ALKALINE PHOSPHATASE 103 U/L (45-117); ALT/SGPT 23 U/L (12-78); ANION GAP 10 MEQ/L (8-16); AST/SGOT 10 U/L (7-37); BILIRUBIN,TOTAL 0.5 MG/DL (0.2-1.0); BLOOD UREA NITROGEN 12 MG/DL (7-18); CALCIUM LEVEL 9.4 MG/DL (8.5-10.1); CARBON DIOXIDE LEVEL 22 MEQ/L (21-32); CHLORIDE LEVEL 104 MEQ/L (98-107); CHOLESTEROL LEVEL 222 MG/DL (<200); CHOLESTEROL RISK RATIO 7.928 (<5); CPK CREATINE PHOSPHOKINASE 123 U/L (39-308); CREATININE FOR GFR 0.94 MG/DL (0.70-1.30); GLOMERULAR FILTRATION RATE > 60.0 (>60); GLUCOSE, FASTING 286 MG/DL (70-100); HDL CHOLESTEROL 28 MG/DL (>40); NON-HDL-C 194 MG/DL; POTASSIUM SERUM 4.6 MEQ/L (3.5-5.1); SODIUM LEVEL 136 MEQ/L (136-145); TOTAL PROTEIN 6.6 GM/DL (6.4-8.2); TRIGLYCERIDES LEVEL 418 MG/DL (<150)
[2018-05-18 12:36] LABS: ESTIMATED AVERAGE GLUCOSE 206 MG/DL (60-110); HEMOGLOBIN A1c 8.8 %
== END ==
LOC: M SFHCPLAZ 08:17
DX: E78.00 Pure hypercholesterolemia, unspecified (principal)
CPT/HCPCS: 82550

== ENCOUNTER → 2018-05-20 | Outpatient (CLI) | payer MEDICARE ==
[2018-05-20 18:14] LABS: URIC ACID 6.2 MG/DL (3.5-7.2)
[2018-05-20 18:46] LABS: BASO # 0.2 10^3/uL (0.0-0.2); EOS # 0.5 10^3/uL (0.0-0.50); EOS % 3.4 % (0.0-3.0); HEMATOCRIT 50.7 % (42.0-52.0); HEMOGLOBIN 17.2 g/dl (13.5-17.5); IMMATURE GRANULOCYTE % 0.5 % (0-3.0); LYMPH % 18.9 % (24.0-44.0); MEAN CORPUSCULAR HEMOGLOBIN 29.9 pg (27.0-33.0); MEAN CORPUSCULAR HGB CONC 33.9 g/dl (32.0-36.5); MONO # 1.4 10^3/uL (0.0-0.8); MONO % 8.8 % (0.0-5.0); NEUTROPHILS # 10.7 10^3/uL (1.8-7.7); NEUTROPHILS % 67.4 % (36.0-66.0); PLATELET COUNT, AUTOMATED 257 10^3/uL (150-450); RED BLOOD COUNT 5.76 10^6/uL (4.30-6.10); RED CELL DISTRIBUTION WIDTH 13.4 % (11.5-14.5); WHITE BLOOD COUNT 15.8 10^3/uL (4.0-10.0)
== END ==
LOC: M WUC 14:26
DX: M79.675 Pain in left toe(s) (principal)
CPT/HCPCS: 84550

== ENCOUNTER → 2018-05-23 | Outpatient (REF) | payer MEDICARE, MEDICAID ==
[2018-05-23 13:27] LABS: CHOLESTEROL LEVEL 316 MG/DL (<200); CHOLESTEROL RISK RATIO 8.315 (<5); HDL CHOLESTEROL 38 MG/DL (>40); LDL CHOLESTEROL 203 MG/DL (<100); NON-HDL-C 278 MG/DL; TRIGLYCERIDES LEVEL 375 MG/DL (<150)
== END ==
LOC: M SFHCPLAZ 10:24
DX: E78.00 Pure hypercholesterolemia, unspecified (principal)
CPT/HCPCS: 80061

== ENCOUNTER → 2018-05-24 | Outpatient (REF) | payer MEDICARE, MEDICAID ==
[2018-05-24 13:00] LABS: C REACTIVE PROTEIN QUANTITATIV 0.69 MG/DL (0.00-0.30)
[2018-05-24 13:02] LABS: BASO # 0.2 10^3/uL (0.0-0.2); EOS # 0.4 10^3/uL (0.0-0.50); EOS % 2.7 % (0.0-3.0); HEMATOCRIT 52.2 % (42.0-52.0); HEMOGLOBIN 17.5 g/dl (13.5-17.5); IMMATURE GRANULOCYTE % 0.5 % (0-3.0); LYMPH # 2.4 10^3/uL (1.5-4.5); LYMPH % 16.3 % (24.0-44.0); MEAN CORPUSCULAR HEMOGLOBIN 29.9 pg (27.0-33.0); MEAN CORPUSCULAR HGB CONC 33.5 g/dl (32.0-36.5); MEAN CORPUSCULAR VOLUME 89.1 fl (80.0-96.0); NEUTROPHILS # 10.6 10^3/uL (1.8-7.7); NEUTROPHILS % 72.5 % (36.0-66.0); PLATELET COUNT, AUTOMATED 275 10^3/uL (150-450); RED BLOOD COUNT 5.86 10^6/uL (4.30-6.10); RED CELL DISTRIBUTION WIDTH 13.3 % (11.5-14.5); WHITE BLOOD COUNT 14.6 10^3/uL (4.0-10.0)
[2018-05-24 14:10] LABS: ERYTHROCYTE SEDIMENTATION RATE 6 mm/hr (0-15)
== END ==
LOC: M SFHCPLAZ 09:19
DX: L08.9 Local infection of the skin and subcutaneous tissue, unspecified (principal)
CPT/HCPCS: 86140

== ENCOUNTER → 2018-05-31 | Outpatient (REF) | payer MEDICARE, MEDICAID ==
[2018-05-31 12:29] LABS: BASO # 0.1 10^3/uL (0.0-0.2); EOS # 0.4 10^3/uL (0.0-0.50); EOS % 2.6 % (0.0-3.0); HEMATOCRIT 51.1 % (42.0-52.0); HEMOGLOBIN 17.6 g/dl (13.5-17.5); IMMATURE GRANULOCYTE % 0.4 % (0-3.0); LYMPH # 1.3 10^3/uL (1.5-4.5); LYMPH % 8.9 % (24.0-44.0); MEAN CORPUSCULAR HEMOGLOBIN 29.7 pg (27.0-33.0); MEAN CORPUSCULAR HGB CONC 34.4 g/dl (32.0-36.5); MEAN CORPUSCULAR VOLUME 86.3 fl (80.0-96.0); MONO # 1.2 10^3/uL (0.0-0.8); MONO % 8.5 % (0.0-5.0); NEUTROPHILS % 78.6 % (36.0-66.0); PLATELET COUNT, AUTOMATED 250 10^3/uL (150-450); RED BLOOD COUNT 5.92 10^6/uL (4.30-6.10); RED CELL DISTRIBUTION WIDTH 13.2 % (11.5-14.5)
[2018-05-31 13:12] LABS: ALBUMIN 3.7 GM/DL (3.2-5.2); ALBUMIN/GLOBULIN RATIO 1.16 (1.00-1.93); ALKALINE PHOSPHATASE 118 U/L (45-117); ALT/SGPT 17 U/L (12-78); ANION GAP 15 MEQ/L (8-16); AST/SGOT 10 U/L (7-37); BILIRUBIN,TOTAL 0.6 MG/DL (0.2-1.0); BLOOD UREA NITROGEN 11 MG/DL (7-18); C REACTIVE PROTEIN QUANTITATIV 0.59 MG/DL (0.00-0.30); CALCIUM LEVEL 9.3 MG/DL (8.5-10.1); CARBON DIOXIDE LEVEL 19 MEQ/L (21-32); CHLORIDE LEVEL 101 MEQ/L (98-107); CREATININE FOR GFR 1.15 MG/DL (0.70-1.30); GLOMERULAR FILTRATION RATE > 60.0 (>60); GLUCOSE, FASTING 300 MG/DL (70-100); POTASSIUM SERUM 4.5 MEQ/L (3.5-5.1); SODIUM LEVEL 135 MEQ/L (136-145); TOTAL PROTEIN 6.9 GM/DL (6.4-8.2)
[2018-05-31 13:18] LABS: ERYTHROCYTE SEDIMENTATION RATE 3 mm/hr (0-15)
== END ==
LOC: M SFHCPLAZ 08:42
DX: L08.9 Local infection of the skin and subcutaneous tissue, unspecified (principal); E11.69 Type 2 diabetes mellitus with other specified complication
CPT/HCPCS: 80053

== ENCOUNTER → 2018-06-21 | Outpatient (REF) | payer MEDICARE, MEDICAID ==
[2018-06-21 17:02] LABS: ALBUMIN/GLOBULIN RATIO 1.33 (1.00-1.93); ALKALINE PHOSPHATASE 99 U/L (45-117); ALT/SGPT 18 U/L (12-78); ANION GAP 8 MEQ/L (8-16); AST/SGOT 10 U/L (7-37); BILIRUBIN,TOTAL 0.5 MG/DL (0.2-1.0); BLOOD UREA NITROGEN 9 MG/DL (7-18); CALCIUM LEVEL 9.6 MG/DL (8.5-10.1); CARBON DIOXIDE LEVEL 25 MEQ/L (21-32); CHLORIDE LEVEL 102 MEQ/L (98-107); CREATININE FOR GFR 0.88 MG/DL (0.70-1.30); GLOMERULAR FILTRATION RATE > 60.0 (>60); GLUCOSE, FASTING 190 MG/DL (70-100); MAGNESIUM LEVEL 1.9 MG/DL (1.8-2.4); POTASSIUM SERUM 4.3 MEQ/L (3.5-5.1); SODIUM LEVEL 135 MEQ/L (136-145)
== END ==
LOC: M SFHCPLAZ 15:35
DX: E11.69 Type 2 diabetes mellitus with other specified complication (principal)
CPT/HCPCS: 83735

== ENCOUNTER 2018-07-09 12:21 | Emergency (ER) | payer MEDICARE, MEDICAID ==
[2018-07-09 17:23] LABS: BASO # 0.1 10^3/uL (0.0-0.2); BASO % 1.8 % (0.0-1.0); EOS # 0.4 10^3/uL (0.0-0.50); EOS % 4.6 % (0.0-3.0); HEMATOCRIT 45.8 % (42.0-52.0); HEMOGLOBIN 15.9 g/dl (13.5-17.5); IMMATURE GRANULOCYTE % 0.1 % (0-3.0); LYMPH # 2.7 10^3/uL (1.5-4.5); LYMPH % 33.9 % (24.0-44.0); MEAN CORPUSCULAR HEMOGLOBIN 30.3 pg (27.0-33.0); MEAN CORPUSCULAR HGB CONC 34.7 g/dl (32.0-36.5); MEAN CORPUSCULAR VOLUME 87.4 fl (80.0-96.0); MONO # 0.8 10^3/uL (0.0-0.8); NEUTROPHILS # 3.9 10^3/uL (1.8-7.7); NEUTROPHILS % 49.6 % (36.0-66.0); PLATELET COUNT, AUTOMATED 214 10^3/uL (150-450); RED BLOOD COUNT 5.24 10^6/uL (4.30-6.10); RED CELL DISTRIBUTION WIDTH 12.7 % (11.5-14.5); WHITE BLOOD COUNT 7.9 10^3/uL (4.0-10.0)
[2018-07-09] MEDS: MORPHINE 2 MG/ML 1ML SYRINGE (J2270) IV (17:30)
[2018-07-09 17:32] LABS: PROTHROMBIN TIME 13.3 SECONDS (12.1-14.4)
[2018-07-09 17:47] LABS: ANION GAP 8 MEQ/L (8-16); BLOOD UREA NITROGEN 11 MG/DL (7-18); C REACTIVE PROTEIN QUANTITATIV < 0.30 MG/DL (0.00-0.30); CALCIUM LEVEL 8.9 MG/DL (8.5-10.1); CARBON DIOXIDE LEVEL 27 MEQ/L (21-32); CHLORIDE LEVEL 105 MEQ/L (98-107); CPK CREATINE PHOSPHOKINASE 105 U/L (39-308); CREATININE FOR GFR 0.98 MG/DL (0.70-1.30); GLOMERULAR FILTRATION RATE > 60.0 (>60); GLUCOSE, FASTING 177 MG/DL (70-100); MB/CK RELATIVE INDEX 1.33 (< OR =4); NT-PRO BNP 714 PG/ML (<125); POTASSIUM SERUM 4.2 MEQ/L (3.5-5.1); SODIUM LEVEL 140 MEQ/L (136-145); TROPONIN I 0.05 NG/ML (< 0.10)
[2018-07-09 18:04] LABS: D-DIMER QUANT < 270 ng/ml (<500)
[2018-07-09 19:27] LABS: ERYTHROCYTE SEDIMENTATION RATE 2 mm/hr (0-15)
== END 2018-07-09 18:25 | disposition home or self-care (01) ==
LOC: M ED 12:21
DX: I73.9 Peripheral vascular disease, unspecified (principal); E11.51 Type 2 diabetes mellitus with diabetic peripheral angiopathy without gangrene; I11.0 Hypertensive heart disease with heart failure; I50.9 Heart failure, unspecified; E78.5 Hyperlipidemia, unspecified; I25.10 Atherosclerotic heart disease of native coronary artery without angina pectoris; M41.9 Scoliosis, unspecified; M51.9 Unspecified thoracic, thoracolumbar and lumbosacral intervertebral disc disorder; Z95.0 Presence of cardiac pacemaker; Z95.5 Presence of coronary angioplasty implant and graft; Z87.891 Personal history of nicotine dependence

== ENCOUNTER 2018-07-11 13:01 | Inpatient (IN) | payer MEDICARE, MEDICAID ==
[2018-07-11] MEDS ORDERED: HEPARIN SOD (PORCINE) 5000 UNITS/ML VIAL IV (13:45)
[2018-07-11 14:02] LABS: HEMATOCRIT 45.7 % (42.0-52.0); HEMOGLOBIN 16.1 g/dl (13.5-17.5); MEAN CORPUSCULAR HEMOGLOBIN 30.4 pg (27.0-33.0); MEAN CORPUSCULAR HGB CONC 35.2 g/dl (32.0-36.5); MEAN CORPUSCULAR VOLUME 86.2 fl (80.0-96.0); PLATELET COUNT, AUTOMATED 225 10^3/uL (150-450); RED CELL DISTRIBUTION WIDTH 12.6 % (11.5-14.5); WHITE BLOOD COUNT 10.1 10^3/uL (4.0-10.0)
[2018-07-11] MEDS: MORPHINE 4 MG/ML 1ML VIAL/SYRINGE (J2270) IV (14:07)
[2018-07-11 14:12] LABS: PROTHROMBIN TIME 13.3 SECONDS (12.1-14.4)
[2018-07-11] MEDS: HEPARIN DRIP 25,000 UNITS in APPROPRIATE DILUENT 1 EA IV (14:18)
[2018-07-11 14:23] LABS: ANION GAP 8 MEQ/L (8-16); BLOOD UREA NITROGEN 14 MG/DL (7-18); CALCIUM LEVEL 9.2 MG/DL (8.5-10.1); CARBON DIOXIDE LEVEL 26 MEQ/L (21-32); CHLORIDE LEVEL 102 MEQ/L (98-107); CREATININE FOR GFR 1.02 MG/DL (0.70-1.30); GLOMERULAR FILTRATION RATE > 60.0 (>60); GLUCOSE, FASTING 207 MG/DL (70-100); POTASSIUM SERUM 4.2 MEQ/L (3.5-5.1); SODIUM LEVEL 136 MEQ/L (136-145)
[2018-07-11 14:57] LABS: PARTIAL THROMBOPLASTIN TIME 28.5 SECONDS (25.4-37.6)
[2018-07-11] MEDS ORDERED: MIDAZOLAM INJ 2 MG/2 ML VIAL (J2250) As Ordered (15:36)
[2018-07-11] MEDS ORDERED: fentaNYL 100 MCG/2 ML INJECTION (J3010) As Ordered (15:36)
[2018-07-11] MEDS ORDERED: ONDANSETRON 4MG/2ML VIAL (J2405) IV (15:45)
[2018-07-11] MEDS ORDERED: ACETAMINOPHEN TAB 650MG DOSE (2X325MG) PO (15:45)
[2018-07-11] MEDS ORDERED: hydrOXYzine 10 MG TAB PO (15:45)
[2018-07-11] MEDS ORDERED: ALBUTEROL 90 MCG/ACT 8GM HFA INHALER INH (15:45)
[2018-07-11] MEDS: metFORMIN (GLUCOPHAGE) 500 MG TAB PO (18:00)
[2018-07-11] MEDS: D5W/0.45% SODIUM CHLORIDE 1,000 ML IV (18:10)
[2018-07-11 19:59] LABS: BASO # 0.1 10^3/uL (0.0-0.2); BASO % 1.3 % (0.0-1.0); EOS # 0.4 10^3/uL (0.0-0.50); HEMATOCRIT 45.6 % (42.0-52.0); IMMATURE GRANULOCYTE % 0.4 % (0-3.0); LYMPH # 2.9 10^3/uL (1.5-4.5); LYMPH % 25.8 % (24.0-44.0); MEAN CORPUSCULAR HEMOGLOBIN 30.2 pg (27.0-33.0); MEAN CORPUSCULAR HGB CONC 35.1 g/dl (32.0-36.5); MONO # 0.9 10^3/uL (0.0-0.8); MONO % 8.4 % (0.0-5.0); NEUTROPHILS # 6.6 10^3/uL (1.8-7.7); NEUTROPHILS % 60.1 % (36.0-66.0); PLATELET COUNT, AUTOMATED 210 10^3/uL (150-450); RED CELL DISTRIBUTION WIDTH 12.6 % (11.5-14.5)
[2018-07-11 20:19] LABS: ANION GAP 9 MEQ/L (8-16); BLOOD UREA NITROGEN 14 MG/DL (7-18); CARBON DIOXIDE LEVEL 24 MEQ/L (21-32); CHLORIDE LEVEL 104 MEQ/L (98-107); CREATININE FOR GFR 1.01 MG/DL (0.70-1.30); GLOMERULAR FILTRATION RATE > 60.0 (>60); GLUCOSE, FASTING 200 MG/DL (70-100); POTASSIUM SERUM 3.7 MEQ/L (3.5-5.1); SODIUM LEVEL 137 MEQ/L (136-145)
[2018-07-11] MEDS: ASPIRIN 81 MG ENTERIC TAB PO (21:00)
[2018-07-11] MEDS: DOCUSATE SODIUM 100 MG CAP PO (21:00)
[2018-07-11] MEDS: ENTRESTO 97-103MG TABLET (SACUBITRIL/VALSARTAN) PO (21:00)
[2018-07-11] MEDS: CARVedilol 12.5 MG TAB PO (21:01)
[2018-07-11] MEDS: GABAPENTIN 300 MG CAP PO (21:01)
[2018-07-11] MEDS: NORCO, ANEXSIA 5/325MG TABLET (HYDROcodone/ACETAMINOPHEN) PO (21:02)
[2018-07-12] MEDS: NORCO, ANEXSIA 5/325MG TABLET (HYDROcodone/ACETAMINOPHEN) PO ×2 (01:51→08:27)
[2018-07-12 06:22] LABS: BEDSIDE GLUCOSE 245 MG/DL (70-105)
[2018-07-12] MEDS: metFORMIN (GLUCOPHAGE) 500 MG TAB PO (07:44)
[2018-07-12] MEDS: CLOPIDOGREL 75 MG TAB PO (08:25)
[2018-07-12] MEDS: TAMSULOSIN 0.4 MG CAP PO (08:25)
[2018-07-12] MEDS: FLUoxetine 20 MG CAP PO (08:26)
[2018-07-12] MEDS: ENTRESTO 97-103MG TABLET (SACUBITRIL/VALSARTAN) PO (08:26)
[2018-07-12] MEDS: ROSUVASTATIN 10 MG TAB (CRESTOR) PO (08:26)
[2018-07-12] MEDS: buPROPion **XL** TABLET 150MG (WELLBUTRIN XL) PO (08:26)
[2018-07-12] MEDS: DOCUSATE SODIUM 100 MG CAP PO (08:27)
[2018-07-12] MEDS: LEVEMIR (INSULIN DETEMIR) 1 UNITS/0.01ML SC (08:27)
[2018-07-12] MEDS: GABAPENTIN 300 MG CAP PO (08:27)
[2018-07-12] MEDS: CARVedilol 12.5 MG TAB PO (08:27)
[2018-07-12] MEDS: ASPIRIN 81 MG ENTERIC TAB PO (08:27)
== END 2018-07-12 12:09 | disposition home or self-care (01) | DRG 254 ==
LOC: M ED 13:01 → M ED INP 15:31 → M MSPAV 18:26
PROC: 047M3D6 (ICD-10-PCS; principal; 2018-07-11)
PROC: 047K3D6 (ICD-10-PCS; 2018-07-11)
DX: I70.201 Unspecified atherosclerosis of native arteries of extremities, right leg (principal); I10 Essential (primary) hypertension; E78.5 Hyperlipidemia, unspecified; E11.9 Type 2 diabetes mellitus without complications; Z87.891 Personal history of nicotine dependence; I25.10 Atherosclerotic heart disease of native coronary artery without angina pectoris; Z95.1 Presence of aortocoronary bypass graft; N52.9 Male erectile dysfunction, unspecified; J44.9 Chronic obstructive pulmonary disease, unspecified; N40.0 Benign prostatic hyperplasia without lower urinary tract symptoms; I48.91 Unspecified atrial fibrillation; F43.10 Post-traumatic stress disorder, unspecified; G43.909 Migraine, unspecified, not intractable, without status migrainosus; Z86.73 Personal history of transient ischemic attack (TIA), and cerebral infarction without residual deficits; Z79.4 Long term (current) use of insulin; Z95.810 Presence of automatic (implantable) cardiac defibrillator; Z79.82 Long term (current) use of aspirin; Z79.899 Other long term (current) drug therapy

== ENCOUNTER → 2018-07-20 | Outpatient (REF) | payer MEDICARE, MEDICAID ==
[~2018-07-20] MED LIST changes: +BUPR150T3 PO; +ENTR1TAB PO; +ENTR1TAB4 PO; -FENO145T PO; +FENO145T13 PO; +FLOM0.4C39 PO; -FLOM5CAP PO; +FLUO40CA PO; -GABA-282 PO; +GABA-843 PO; +HYDR-643 PO; +INVO100T PO; +JANU100T PO; -LISI2.5T3 PO; +LISI2.5T5 PO; +MAGN400C PO; +MELO15TA28 PO; -MELO15TA4 PO; +METF-839 PO; +NITR0.4S14 SL; +PATIENT COMMENT; -ROSU20TA; +ROSU20TA4 PO; +ROSU40TA3 PO; +TIZA-208 PO; +TIZA4CAP PO; -TIZA4CAP3 PO; +VENTAER INH; +VITA-122 PO
[2018-07-20 15:59] LABS: BASO # 0.2 10^3/uL (0.0-0.2); BASO % 1.9 % (0.0-1.0); EOS # 0.5 10^3/uL (0.0-0.50); EOS % 5.3 % (0.0-3.0); HEMATOCRIT 47.1 % (42.0-52.0); HEMOGLOBIN 16.3 g/dl (13.5-17.5); LYMPH # 2.8 10^3/uL (1.5-4.5); LYMPH % 33.6 % (24.0-44.0); MEAN CORPUSCULAR HEMOGLOBIN 30.1 pg (27.0-33.0); MEAN CORPUSCULAR HGB CONC 34.6 g/dl (32.0-36.5); MEAN CORPUSCULAR VOLUME 87.1 fl (80.0-96.0); MONO # 0.9 10^3/uL (0.0-0.8); MONO % 10.1 % (0.0-5.0); NEUTROPHILS # 4.1 10^3/uL (1.8-7.7); NEUTROPHILS % 48.7 % (36.0-66.0); PLATELET COUNT, AUTOMATED 249 10^3/uL (150-450); RED BLOOD COUNT 5.41 10^6/uL (4.30-6.10); WHITE BLOOD COUNT 8.4 10^3/uL (4.0-10.0)
[2018-07-20 16:28] LABS: ALBUMIN 3.9 GM/DL (3.2-5.2); ALT/SGPT 17 U/L (12-78); BILIRUBIN,TOTAL 0.7 MG/DL (0.2-1.0); BLOOD UREA NITROGEN 14 MG/DL (7-18); CALCIUM LEVEL 9.2 MG/DL (8.5-10.1); CARBON DIOXIDE LEVEL 23 MEQ/L (21-32); CHLORIDE LEVEL 103 MEQ/L (98-107); CREATININE FOR GFR 0.91 MG/DL (0.70-1.30); GLOMERULAR FILTRATION RATE > 60.0 (>60); GLUCOSE, FASTING 150 MG/DL (70-100); POTASSIUM SERUM 4.3 MEQ/L (3.5-5.1); SODIUM LEVEL 137 MEQ/L (136-145); TOTAL PROTEIN 7.1 GM/DL (6.4-8.2)
[2018-07-20 16:35] LABS: HEMOGLOBIN A1c 8.4 %
== END ==
LOC: M SFHCPLAZ 14:47
PROVIDERS: ATTEND Physician Assistant Medical
DX: I73.9 Peripheral vascular disease, unspecified (principal); E11.69 Type 2 diabetes mellitus with other specified complication; I10 Essential (primary) hypertension
CPT/HCPCS: 36415; 80053; 83036; 85025; G0463

== ENCOUNTER 2018-07-31 04:55 | Inpatient (IN) | payer MEDICARE, MEDICAID ==
[~2018-07-31] VITALS: Ht 182.9 cm; Wt 79.5 kg
[2018-07-31] VITALS (13 sets, daily range): BP systolic 98–130; BP diastolic 59–85; O2SAT 96
[~2018-07-31 04:55] MED LIST changes: -ENTR1TAB PO; -MAGN400C PO
[2018-07-31] MEDS ORDERED: NITROGLYCERIN IN D5W 25MG/250ML (100MCG/ML) As Ordered ONE (04:59)
[2018-07-31] MEDS ORDERED: FUROSEMIDE 100 MG/10 ML VIAL (J1940) As Ordered ONE (05:00)
[2018-07-31] MEDS ORDERED: NITROGLYCERIN/D5W 100MCG/ML 25 MG in APPROPRIATE DILUENT 1 EA IV SCH (05:00)
[2018-07-31] MEDS ORDERED: hydrALAZINE INJ 20 MG/ML VIAL As Ordered ONE (05:08)
[2018-07-31] MEDS ORDERED: PROPOFOL 1,000 MG/100 ML VIAL As Ordered ONE (05:09)
[2018-07-31] MEDS ORDERED: hydrALAZINE INJ 20 MG/ML VIAL IV STA (05:15)
[2018-07-31] MEDS ORDERED: ETOMIDATE INJ 20MG/10ML VIAL IV STA (05:30)
[2018-07-31] MEDS ORDERED: VECURONIUM BROMIDE 10 MG VIAL IV STA (05:30)
[2018-07-31] MEDS ORDERED: SUCCINYLCHOLINE INJ 200 MG/10 ML VIAL (J0330) IV STA (05:30)
[2018-07-31 05:31] LABS: ABG BASE EXCESS -17.1 (-2.0-2.0); ABG HCO3 14.4 MEQ/L (22.0-26.0); ABG O2 SATURATION 93.3 % (95.0-99.0); ABG PARTIAL PRESSURE CO2 56.4 mmHg (35.0-45.0); ABG PARTIAL PRESSURE O2 90.7 mmHg (75.0-100.0); ABG STANDARD HCO3 12.1 MEQ/L (22.0-26.0); ABG TOTAL CO2 16.1 MEQ/L (22.0-29.0)
[2018-07-31 05:32] LABS: ABG pH (ARTERIAL) 7.024 UNITS (7.350-7.450)
[2018-07-31] MEDS ORDERED: ENTR1TAB PO ×2 (05:34→07:58)
[2018-07-31] MEDS ORDERED: FUROSEMIDE 100 MG/10 ML VIAL (J1940) IV STA (05:38)
[2018-07-31] MEDS ORDERED: PROPOFOL 1,000 MG in APPROPRIATE DILUENT 1 EA IV SCH (05:45)
[2018-07-31 05:55] LABS: HEMATOCRIT 50.7 % (42.0-52.0); HEMOGLOBIN 16.3 g/dl (13.5-17.5); MEAN CORPUSCULAR HEMOGLOBIN 30.1 pg (27.0-33.0); MEAN CORPUSCULAR HGB CONC 32.1 g/dl (32.0-36.5); MEAN CORPUSCULAR VOLUME 93.7 fl (80.0-96.0); PLATELET COUNT, AUTOMATED 377 10^3/uL (150-450); RED BLOOD COUNT 5.41 10^6/uL (4.30-6.10)
[2018-07-31 05:56] LABS: WHITE BLOOD COUNT 22.9 10^3/uL (4.0-10.0)
[2018-07-31] MEDS ORDERED: HEPARIN SOD (PORCINE) 5000 UNITS/ML VIAL SC SCH (06:00)
[2018-07-31 06:06] LABS: INR 1.01; PROTHROMBIN TIME 13.4 SECONDS (12.1-14.4)
--- NOTE | 2018-07-31 06:08 | ECGEPIP ---
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
[2018-07-31 06:18] LABS: ATYPICAL LYMPH 2 % (0-5); BASOPHILS 4 % (0-4); EOSINOPHILS 7 % (0-5); LYMPHOCYTES 30 % (16-52); MONOCYTES 5 % (0-8); NEUTROPHILS 52 % (35-75); PLATELET ESTIMATE NORMAL (NORMAL)
[2018-07-31 06:20] LABS: CALCIUM LEVEL 8.1 MG/DL (8.5-10.1); CREATININE FOR GFR 1.49 MG/DL (0.70-1.30); GLOMERULAR FILTRATION RATE 53.4 (>60); MB/CK RELATIVE INDEX 4.83 (< OR =4); POTASSIUM SERUM 4.7 MEQ/L (3.5-5.1); TROPONIN I 1.12 NG/ML (< 0.10)
[2018-07-31] MEDS ORDERED: HumuLIN R (REGULAR) INSULIN (NovoLIN R) **100U/ML** PER UNIT As Ordered ONE (06:36)
--- NOTE | 2018-07-31 06:40 | REP ---
Clinical: Shortness of breath. Comparison: 12/24/2017. Findings: Endotracheal tube 2 cm above the nishant. Nasogastric tube courses below left hemidiaphragm. Cardiac silhouette is normal with evidence for prior pacemaker. The lung patterson demonstrate diffuse bilateral interstitial and scattered alveolar infiltrates. No obvious effusion. No pneumothorax. Impression: Diffuse bilateral interstitial and alveolar infiltrates. Differential diagnosis includes interstitial edema, pneumonitis, and idiopathic interstitial disease. Electronically Signed by Shakeel Ramírez MD 07/31/2018 06:32 A
[2018-07-31] MEDS ORDERED: INSULIN HUMAN REGULAR 100 UNITS in NS 99 ML IV SCH ×2 (06:45→07:00)
[2018-07-31] MEDS ORDERED: HumuLIN R (REGULAR) INSULIN (NovoLIN R) **100U/ML** PER UNIT IV ONE (06:45)
[2018-07-31] MEDS ORDERED: INSULIN IV RATE CHANGE DOCUMENTATION ML/HR XX SCH ×2 (06:45→07:00)
[2018-07-31 06:49] LABS: ABG BASE EXCESS -9.2 (-2.0-2.0); ABG O2 SATURATION 95.5 % (95.0-99.0); ABG PARTIAL PRESSURE O2 94.2 mmHg (75.0-100.0); ABG STANDARD HCO3 17.3 MEQ/L (22.0-26.0)
[2018-07-31 06:54] LABS: ABG PARTIAL PRESSURE CO2 63.1 mmHg (35.0-45.0); ABG pH (ARTERIAL) 7.141 UNITS (7.350-7.450)
[2018-07-31 07:09] LABS: ACETONE/KETONE 1.87 MG/DL (<2.81)
[2018-07-31] MEDS ORDERED: ISOVUE-370 76% 100ML VIAL (Q9967) As Ordered ONE (07:14)
[2018-07-31] MEDS ORDERED: HYDR-3713 PO (07:23)
[2018-07-31] MEDS ORDERED: MAGN400C PO (07:23)
[2018-07-31 07:26] LABS: AMPHETAMINES LEVEL URINE NEGATIVE (NEGATIVE); BARBITURATES URINE NEGATIVE (NEGATIVE); BENZODIAZEPINES URINE NEGATIVE (NEGATIVE); CANNABINOIDS URINE NEGATIVE (NEGATIVE); COCAINE METABOLITE URINE NEGATIVE (NEGATIVE); METHADONE URINE NEGATIVE (NEGATIVE); OPIATES URINE NEGATIVE (NEGATIVE); PHENCYCLIDINE URINE NEGATIVE (NEGATIVE)
[2018-07-31] MEDS ORDERED: NOREPINEPHRINE BITARTRATE 8 MG in D5W 492 ML IV SCH (07:51)
[2018-07-31] MEDS: PROPOFOL 1,000 MG in APPROPRIATE DILUENT 1 EA IV SCH ×5 (07:51→19:11)
[2018-07-31] MEDS ORDERED: NOREPINEPHRINE 4 MG/4 ML AMP As Ordered ONE (07:52)
[2018-07-31] MEDS ORDERED: AMIT10TA PO (07:58)
[2018-07-31] MEDS ORDERED: SODIUM BICARBONATE 8.4% INJ 50 ML SYRINGE As Ordered ONE (07:59)
[2018-07-31] MEDS: ALBUTEROL SULFATE 2.5 MG/0.5 ML INH NEB SOLN NEB SCH ×4 (08:00→19:52)
--- NOTE | 2018-07-31 08:08 | REP ---
Clinical: Acute chest pain and dyspnea . Technique: Axial contrast enhanced images from the thoracic inlet to the upper abdomen using 100 ml Isovue 370 intravenous contrast material with coronal and sagittal re-formations. Findings: Satisfactory enhancement of the pulmonary vasculature is achieved but significant respiratory motion artifact limits evaluation. No obvious filling defects are identified in the main and second/third order pulmonary vasculature to suggest pulmonary embolus. Distal and terminal pulmonary arterial branches are incompletely evaluated due to above-mentioned technical factors and associated areas of consolidation. Moderate bilateral lower lobe consolidations with air bronchograms as well as scattered atelectasis and ground-glass opacities are identified throughout the bilateral lung patterson. Small associated pleural effusions (right greater than left) are also noted. Prominent pulmonary vasculature and interstitium also identified and differential diagnosis includes multifocal pneumonia as well as pulmonary edema. No pneumothorax. The endotracheal tube is identified at the level of the nishant and warrants repositioning. No obvious adenopathy. No cardiomegaly or pericardial effusion. Pacemaker identified with leads in the right atrium and right ventricle. Surrounding musculoskeletal structures are grossly intact. Impression: 1. Endotracheal tube at the nishant requires repositioning. 2. No definite evidence for pulmonary embolus. 3. Pleuroparenchymal changes as described above. Differential diagnosis includes pulmonary edema as well as multifocal pneumonia. Electronically Signed by Shakeel Ramírez MD 07/31/2018 08:00 A
[2018-07-31] MEDS ORDERED: ASPIRIN 81 MG ENTERIC TAB PO SCH (09:00)
[2018-07-31] MEDS: CHLORHEXIDINE GLUCONATE 0.12 % 15ML UDC (PERIDEX ORAL RINSE) MT SCH ×2 (09:00→20:08)
[2018-07-31] MEDS ORDERED: SODIUM BICARBONATE 8.4% INJ 50 ML SYRINGE IV STA (09:02)
[2018-07-31] MEDS ORDERED: NS 250 ML IV ONE (09:15)
--- NOTE | 2018-07-31 09:25 | REP ---
Clinical: Status post line placement. Comparison: 07/31/2018 at 05:20 a.m. Findings: Endotracheal tube approximately 3 cm above the nishant. Nasogastric tube courses below left hemidiaphragm in satisfactory position. Right IJ line with tip in the SVC. Mediastinum and cardiac silhouette are stable. Diffuse bilateral interstitial and alveolar opacities (right greater than left) are again identified and essentially unchanged. Impression: 1. Lines and tubes in satisfactory position. 2. Bilateral opacities remain stable. Electronically Signed by Shakeel Ramírez MD 07/31/2018 09:17 A
[2018-07-31 09:43] LABS: ABG BASE EXCESS -1.4 (-2.0-2.0); ABG HCO3 23.4 MEQ/L (22.0-26.0); ABG O2 SATURATION 99.7 % (95.0-99.0); ABG PARTIAL PRESSURE CO2 40.1 mmHg (35.0-45.0); ABG PARTIAL PRESSURE O2 355.4 mmHg (75.0-100.0); ABG STANDARD HCO3 23.3 MEQ/L (22.0-26.0); ABG TOTAL CO2 24.6 MEQ/L (22.0-29.0); ABG pH (ARTERIAL) 7.384 UNITS (7.350-7.450)
[2018-07-31 09:52] LABS: BASO # 0.1 10^3/uL (0.0-0.2); BASO % 0.4 % (0.0-1.0); EOS # 0.1 10^3/uL (0.0-0.50); EOS % 0.3 % (0.0-3.0); HEMATOCRIT 49.5 % (42.0-52.0); LYMPH # 1.6 10^3/uL (1.5-4.5); LYMPH % 6.7 % (24.0-44.0); MEAN CORPUSCULAR HGB CONC 34.3 g/dl (32.0-36.5); MEAN CORPUSCULAR VOLUME 87.5 fl (80.0-96.0); MONO % 10.1 % (0.0-5.0); NEUTROPHILS # 19.3 10^3/uL (1.8-7.7); NEUTROPHILS % 81.7 % (36.0-66.0); PLATELET COUNT, AUTOMATED 346 10^3/uL (150-450); RED BLOOD COUNT 5.66 10^6/uL (4.30-6.10); WHITE BLOOD COUNT 23.6 10^3/uL (4.0-10.0)
[2018-07-31 10:09] LABS: MONO # 2.4 10^3/uL (0.0-0.8)
[2018-07-31] MEDS: PANTOPRAZOLE 40MG INJ (PROTONIX) (C9113) IV SCH (10:17)
[2018-07-31 10:21] LABS: ALBUMIN 3.6 GM/DL (3.2-5.2); ALT/SGPT 26 U/L (12-78); BILIRUBIN,TOTAL 0.7 MG/DL (0.2-1.0); BLOOD UREA NITROGEN 12 MG/DL (7-18); CALCIUM LEVEL 8.5 MG/DL (8.5-10.1); CARBON DIOXIDE LEVEL 26 MEQ/L (21-32); CHLORIDE LEVEL 100 MEQ/L (98-107); GLOMERULAR FILTRATION RATE > 60.0 (>60); GLUCOSE, FASTING 345 MG/DL (70-100); MAGNESIUM LEVEL 1.9 MG/DL (1.8-2.4); PHOSPHORUS LEVEL 3.3 MG/DL (2.5-4.9); POTASSIUM SERUM 4.6 MEQ/L (3.5-5.1); SODIUM LEVEL 135 MEQ/L (136-145); TOTAL PROTEIN 6.9 GM/DL (6.4-8.2)
[2018-07-31] MEDS: VANCOMYCIN HCL 1,000 MG, VIAL MATE ADAPTER 1 EACH in D5W 250 ML IV SCH ×2 (11:48→19:13)
[2018-07-31] MEDS ORDERED: HEPARIN DRIP 25,000 UNITS in APPROPRIATE DILUENT 1 EA IV SCH ×2 (12:18→12:38)
[2018-07-31] MEDS ORDERED: HEPARIN SOD (PORCINE) 5000 UNITS/ML VIAL IV PRN ×2 (12:30→12:45)
[2018-07-31] MEDS: CLOPIDOGREL 75 MG TAB PO SCH (13:50)
[2018-07-31] MEDS: CARVedilol 6.25 MG TAB NG SCH ×2 (13:50→18:13)
[2018-07-31] MEDS: ASPIRIN 81 MG CHEW TABLET NG SCH ×2 (13:50→20:08)
[2018-07-31] MEDS: ROSUVASTATIN 10 MG TAB (CRESTOR) PO SCH (13:51)
[2018-07-31] MEDS: PIPERACILLIN/TAZOBACTAM SOD 4.5 GM in D5W MINI-BAG PLUS 50 ML IV SCH ×3 (13:51→23:22)
[2018-07-31] MEDS: HEPARIN DRIP 25,000 UNITS in APPROPRIATE DILUENT 1 EA IV SCH (14:38)
[2018-07-31] MEDS: INSULIN HUMAN REGULAR 100 UNITS in NS 99 ML IV SCH ×2 (17:24→20:00)
[2018-07-31 18:22] LABS: MB/CK RELATIVE INDEX 6.73 (< OR =4); TROPONIN I 14.4 NG/ML (< 0.10)
[2018-07-31] MEDS: INSULIN IV RATE CHANGE DOCUMENTATION ML/HR XX SCH ×4 (18:29→23:55)
[2018-07-31] MEDS ORDERED: FUROSEMIDE 40 MG/4 ML VIAL (J1940) IV ONE (18:45)
[2018-07-31] MEDS: NOREPINEPHRINE BITARTRATE 8 MG in D5W 492 ML IV SCH (19:13)
[2018-07-31] MEDS: ENTRESTO 24-26MG TABLET (SACUBITRIL/VALSARTAN) PO SCH (20:08)
[2018-07-31 23:29] LABS: MB/CK RELATIVE INDEX 5.23 (< OR =4); TROPONIN I 15.2 NG/ML (< 0.10)
[2018-08-01] VITALS (24 sets, daily range): BP systolic 85–109; BP diastolic 55–72; O2SAT 96
[2018-08-01] MEDS: VANCOMYCIN HCL 1,000 MG, VIAL MATE ADAPTER 1 EACH in D5W 250 ML IV SCH ×2 (02:36→10:11)
[2018-08-01] MEDS: PROPOFOL 1,000 MG in APPROPRIATE DILUENT 1 EA IV SCH ×6 (03:30→18:26)
[2018-08-01] MEDS: PIPERACILLIN/TAZOBACTAM SOD 4.5 GM in D5W MINI-BAG PLUS 50 ML IV SCH ×4 (05:36→23:13)
[2018-08-01] MEDS: CARVedilol 6.25 MG TAB NG SCH ×5 (05:37→23:31)
[2018-08-01] MEDS: INSULIN IV RATE CHANGE DOCUMENTATION ML/HR XX SCH ×5 (06:03→23:52)
[2018-08-01 06:15] LABS: ABG BASE EXCESS -0.1 (-2.0-2.0); ABG HCO3 22.9 MEQ/L (22.0-26.0); ABG O2 SATURATION 98.9 % (95.0-99.0); ABG PARTIAL PRESSURE CO2 33.3 mmHg (35.0-45.0); ABG STANDARD HCO3 24.4 MEQ/L (22.0-26.0); ABG TOTAL CO2 23.9 MEQ/L (22.0-29.0); ABG pH (ARTERIAL) 7.455 UNITS (7.350-7.450)
[2018-08-01 07:09] LABS: MB/CK RELATIVE INDEX 2.87 (< OR =4)
--- NOTE | 2018-08-01 08:04 | REP ---
Clinical: Intubation. Comparison: 07/31/2018. Findings: Endotracheal tube 3 cm above the nishant. Nasogastric tube courses below left hemidiaphragm. Right IJ line with tip in the SVC. Mediastinum and cardiac silhouette are stable. Lung patterson are clear and without focal consolidation, effusion, or pneumothorax. Skeletal structures intact. Impression: Lines and tubes in satisfactory position. No acute cardiopulmonary process appreciated. Electronically Signed by Shakeel Ramírez MD 08/01/2018 07:56 A
[2018-08-01] MEDS: ENTRESTO 24-26MG TABLET (SACUBITRIL/VALSARTAN) PO SCH (08:05)
[2018-08-01] MEDS: ALBUTEROL SULFATE 2.5 MG/0.5 ML INH NEB SOLN NEB SCH ×4 (08:28→20:20)
[2018-08-01 08:34] LABS: CALCIUM LEVEL 8.8 MG/DL (8.5-10.1); CREATININE FOR GFR 1.49 MG/DL (0.70-1.30); GLOMERULAR FILTRATION RATE 53.4 (>60); POTASSIUM SERUM 3.6 MEQ/L (3.5-5.1)
[2018-08-01] MEDS: CLOPIDOGREL 75 MG TAB PO SCH (10:11)
[2018-08-01] MEDS: PANTOPRAZOLE 40MG INJ (PROTONIX) (C9113) IV SCH (10:11)
[2018-08-01] MEDS: ASPIRIN 81 MG CHEW TABLET NG SCH ×2 (10:11→20:48)
[2018-08-01] MEDS: ROSUVASTATIN 10 MG TAB (CRESTOR) PO SCH (10:11)
[2018-08-01] MEDS: CHLORHEXIDINE GLUCONATE 0.12 % 15ML UDC (PERIDEX ORAL RINSE) MT SCH ×2 (10:11→20:48)
[2018-08-01] MEDS ORDERED: fentaNYL 100 MCG/2 ML INJECTION (J3010) As Ordered ONE (10:25)
[2018-08-01] MEDS ORDERED: fentaNYL 100 MCG/2 ML INJECTION (J3010) IV ONE ×2 (10:45→11:30)
--- NOTE | 2018-08-01 11:52 | CR ---
DATE OF CONSULTATION: 07/31/2018 REFERRING PHYSICIAN: Dr. Makenzie Bradford INDICATION: Acute myocardial infarction in patient who presented with respiratory failure and was emergently intubated. HISTORY OF PRESENT ILLNESS: Mr. Shipman is previously unknown to me. 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 He does have known ischemic cardiomyopathy with history of remote bypass surgery in 2000 and subsequent several coronary interventions. He apparently started developing fairly sudden onset of severe dyspnea that was associated later with vomiting. On presentation to the emergency room (ER), he was in respiratory distress and was emergently intubated. On initial presentation he was quite hypertensive and was felt to be in florid congestive heart failure. He was given diuretics, but also IV nitroglycerin and hydralazine. After intubation and other medications administration, he was actually transiently hypotensive and was briefly on pressors, but this situation corrected itself after his pH was rectified. At the time of my evaluation he is in intensive care. He is sedated there and seemed to be doing relatively well from respiratory perspective. PAST MEDICAL HISTORY: 1. Coronary artery disease with history of coronary artery bypass graft (CABG) in 2000. His last cardiac catheterization was in October 2015. It revealed occluded proximal left anterior descending (LAD) with patent left internal mammary artery ([place]) to distal LAD. There were patent stents in left circumflex and right coronary arteries. His last functional evaluation was nuclear stress test in April 2018 that per personal communication with Dr. Giordano revealed left ventricular ejection fraction 26% and no evidence for ischemia. 2. Status post biventricular (BIV) ICD implanted in 2015. 3. Type 2 diabetes. 4. Hypertension. 5. Dyslipidemia. 6. Peripheral vascular disease status post recent intervention. 7. Chronic obstructive pulmonary disease (COPD). 8. History of a diabetic neuropathy. 9. Remote history of cerebrovascular accident. 10. Gastroesophageal reflux disease (GERD). 11. Depression. 12. Benign prostatic hypertrophy (BPH). 13. Migraines. 14. 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 OUTPATIENT MEDICATIONS: The list is somewhat tentative but his girlfriend, who is also his caregiver, will bring the medications to the hospital later today. But according to available information he takes Coreg 12.5 twice a day, Plavix 75 a day, Dexilant 60 mg a day, insulin, aspirin 81 mg twice a day, fluoxetine 40 mg a day, hydroxyzine 10 mg as needed, Crestor 20 mg daily, nitroglycerin as needed, albuterol inhaler, Entresto 97/103 twice a day and amitriptyline 20 mg at bedtime. ALLERGIES: No drug allergies. SOCIAL HISTORY: The patient is an active smoker. Reportedly there is no history of drug use or alcohol use. Surgical history is positive for vasectomy and ICD placement and open heart surgery with bypass in 2000. FAMILY HISTORY: According to available records from the hospital, he has strong family history of coronary artery disease (CAD) and hypertension. On the review of systems: Unfortunately are not available as the patient is sedated and intubated. PHYSICAL EXAMINATION: Mr. Shipman is a middle-aged man. He appears approximately his age. He is sedated and intubated and does not appear to be in any distress. Last set of vital signs: Blood pressure 118/71, heart rate in 90s in sinus rhythm with biventricular pacing. Saturation was 99% on 80% FiO2. Weight was documented 87.5 kg. Jugular venous pulse (JVP) does not look high. There is a triple-lumen catheter in right internal jugular vein. Lungs are reasonably clear. I do not appreciate any wheezing, crackles or rhonchi. Heart: Exam reveals somewhat muffled heart sounds overshadowed by respiratory sounds but no gallop, rub or murmur is appreciated. Abdomen is soft. No guarding. Bowel sounds are present. Extremities have somewhat diminished pulses but palpable bilaterally. I do not appreciate any distinct trophic defects. No edema. Neurologic exam is limited by sedation. LABORATORY: WBC count from 9:34 this morning was 23.6, hemoglobin 17, hematocrit 49, platelet count 346,000. Basic metabolic panel: Sodium 135, potassium 4.6, BUN 12, creatinine 1.3, glucose 345. His admission creatinine was 1.5 and glucose 570. CK on admission was 176. Initial troponin was 1.12. The followup troponin was 2.7 interval ProBNP 4800, albumin 3.6. Tox screen was negative. IMAGING: Chest x-ray reveals initially an already intubated situation with nasogastric (NG) tube in place, somewhat prominent heart size and bilateral interstitial infiltrates. CT angiography reveals no evidence for pulmonary embolus. There are bilateral small pleural effusions and interstitial infiltrates. ECG reveals sinus rhythm and ventricular pacing. ASSESSMENT/PLAN: Mr. Shipman is a 47-year-old man who has established CAD with ischemic cardiomyopathy who presented with a reportedly fairly sudden onset of severe dyspnea that rapidly progressed to the point of severe respiratory distress that prompted intubation. He was initially very hypertensive. He is ruling in for myocardial infarction with the second troponin a little over 7. In this situation I think it is likely that the event is ischemic in nature, even though gradually worsening congestive heart failure with sudden exacerbation can certainly be a player as well. He has been chronically on aspirin and Plavix and at this point heparin was added. Will obtain an echocardiogram and follow the patient clinically. The situation is somewhat complicated by his intubation that does not allow us to ascertain presence or absence of pain. I will contact interventional cardiology in [place] regarding tentative plans for transfer but I do not foresee that it is going to occur today. As far as the management of congestive heart failure is concerned, he already got nitroglycerin and diuretics. I, at this point would attempt to reintroduce his chronic medications. Will give him Coreg at 6.25 every 6 hours with holding parameters for low blood pressure and will give a reduced dose of Entresto again with holding parameters. Intermittently will decide about dosing of diuretics. He certainly remains critically ill but at this point seems to be stabilized. will cover the patient from tomorrow AM. KENDELL
[2018-08-01] MEDS: INSULIN HUMAN REGULAR 100 UNITS in NS 99 ML IV SCH (11:56)
--- NOTE | 2018-08-01 12:25 | RO ---
DATE OF PROCEDURE: 07/31/2018 PREPROCEDURE DIAGNOSIS: Respiratory failure. POSTPROCEDURE DIAGNOSIS: Respiratory failure. INDICATION: Vascular access, shock. PROCEDURE: Central line. PROCEDURALIST: Dr. Makenzie Bradford CONSENT: The procedure was performed emergently and the permission was implied because of the emergent nature. PROCEDURE SUMMARY: Central line insertion practices form was completed by an independent observer. A time-out was performed. Full sterile technique was used throughout the procedure, including surgical cap, mask with protective eyewear, full gown and sterile gloves. The patient was placed in Trendelenburg position. The right chest and neck region were prepped using chlorhexidine, scrubbed and draped in a sterile fashion using a fenestrated drape. The right internal jugular vein was identified using ultrasound. Anesthesia was achieved using 1% Lidocaine. Using real time plane guidance, introducer needle was inserted into the internal jugular vein under direct ultrasound visualization. Venous probe was withdrawn. The syringe was removed and the guidewire was advanced into the introducer needle. The introducer needle was then exchanged over the guidewire. A small incision was made at the skin surface with a scalpel and a dilator was exchanged over the guidewire. After appropriate dilation was obtained, the dilator was removed with exchange of the wire for a triple lumen central venous catheter. The wire was removed and the catheter was sutured in place at 15 cm. A sterile dressing was placed over the catheter at the insertion site. The patient tolerated the procedure well without any hemodynamic compromise. At the time of the procedure completion, all ports were aspirated and flushed properly. Post procedure chest x-ray showed the line in good position with no evidence of any pneumothorax. [facility]
--- NOTE | 2018-08-01 13:26 | ECHO ---
DATE OF PROCEDURE: 07/31/2018 REFERRING PHYSICIAN: Dr. Bradford INDICATION: Non ST-elevation myocardial infarction (STEMI), congestive heart failure. HEIGHT: 72 inches WEIGHT: 192 pounds DIMENSIONS: IVS: 1.0 LV: 5.8 LVPW: 1.1 LA: 4.3 Aorta: 3.3 IVC: 2.0 Mitral E-wave velocity: 103, A-wave 32 E prime septal: 4.0 E prime lateral: 7.2 FINDINGS: The study is of good technical quality. Left ventricle is mildly dilated and is globally hypokinetic. [place] appears completely akinetic, inferior wall severely hypokinetic and septum dyskinetic. Lateral and inferolateral wall have relatively preserved mobility. Anterior wall is severely hypokinetic as well. Overall estimated left ventricular ejection fraction (LVEF) around 15- 20%. Right ventricle does not appear grossly enlarged. Both atria are at least mildly enlarged. There are echo artifacts apparent in right-sided heart chambers consistent with implantable cardioverter defibrillator (ICD) leads. Aortic valve appears mildly sclerotic but mobility of leaflet is preserved. Mitral and tricuspid valves appear normal. Pulmonic valve was not well seen. No pericardial effusion is noted. Inferior vena cava is borderline dilated and there is no appreciable collapse with respiration, but the patient is intubated. Aortic root appears normal. Aortic arch and abdominal aorta were not well seen. Doppler interrogation reveals no aortic stenosis or insufficiency. There is also only trivial mitral insufficiency. Unfortunately quality of TR jet was poor and I cannot estimate pulmonary artery pressure. Pulmonic valve is functionally competent but it was very poorly seen. Mitral inflow pattern and tissue Doppler imaging of mitral annulus reveal grade 2 diastolic dysfunction. CONCLUSIONS: 1. Study is of good technical quality. 2. Dilated left ventricle with segmental and global wall motion abnormalities as outlined above and overall estimated LVEF 15-20%. 3. No hemodynamically significant valvular disease. 4. Probably at least mildly elevated central venous pressure. 5. Unable to estimate pulmonary artery pressure. COMMENTS: Subacute bacterial endocarditis (SBE) prophylaxis is not recommended. The study is consistent with severe ischemic cardiomyopathy. MTDD
--- NOTE | 2018-08-01 14:07 | HPE ---
DATE OF ADMISSION: 07/31/2018 CHIEF COMPLAINT: Respiratory distress. HISTORY OF PRESENT ILLNESS: The patient is a 47-year-old male with a significant cardiac history with coronary artery disease, status post coronary artery bypass in 2000 and status post percutaneous intervention (PCI) with stent. Most recent catheterization was 2 years ago. History of congestive heart failure with reduced ejection fraction (EF) status post biventricular implantable cardioverter defibrillator (ICD) placement, history of insulin dependent diabetes complicated with diabetic neuropathy, history of chronic obstructive pulmonary disease (COPD), gastroesophageal reflux disease (GERD), hypertension, hyperlipidemia, benign prostatic hypertrophy (BPH), history of cerebrovascular accident (CVA), history of Staphylococcus aureus (MRSA) sternal osteomyelitis, hx of degenerative joint disease who presented to the emergency room with a complaint of shortness of breath and chest tightness. History was obtained from the patient's fiance who is also his home health aide and from information from the emergency department as patient was intubated and unable to provide a history on exam. As per patient's fiance, patient had been in his usual state of health up until about a day ago when he had noted some increasing fatigue but denied any symptoms of chest pain or shortness of breath at that time. He had no lower extremity edema. He had no cough. No fevers or chills. No abdominal pain. No nausea or vomiting. The next day, overnight, patient woke up in the middle of the night suddenly with complaint of shortness of breath and difficulty breathing. He had complained of some chest tightness but did not have any coughing. He went downstairs to wait for emergency medical services (EMS) after calling them and then was noted to have copious vomiting. There was no reported loss of consciousness during any of this. Upon arrival in the emergency department, patient was tachypneic. He appeared pale and diaphoretic and was complaining of chest pain. He was tachycardic and hypertensive initially. Patient was given 325 mg of aspirin prior to arrival as well as nitroglycerine sublingual and metoprolol 5 mg IV. In the emergency department, patient was given nitroglycerine IV infusion as well as a dose of Lasix and hydralazine. As per report, the nitroglycerine was given wide open and he had 100 mg of Lasix given. On the nonrebreather, patient continued to be in respiratory distress and was diaphoretic therefore he was intubated and had an orogastric (OG) tube placed. Patient was then started on a propofol infusion for sedation. Patient's blood pressure decreased with the propofol. His nitroglycerine drip was discontinued at that time. Patient was then noted to have a fingerstick glucose in the 500 and he was started on insulin drip at that time. Upon examination in the emergency room patient was noted to be hypotensive. His propofol infusion had been attempting to be titrated down. His systolic pressures were in the 70s. He was given 250 normal saline bolus with no improvement in his blood pressure. After review of his ABG and his acidosis, patient was then given an amp of bicarbonate with improvement of his blood pressure and started on peripheral Levophed. Patient then had a right IJ central line placed in the emergency department. His ET tube was noted on his CT chest to be just above the nishant and so it was pulled back 2.5 cm. PAST MEDICAL HISTORY: As per history of present illness (HPI). Not included is history of complex migraine. PAST SURGICAL HISTORY: History of vasectomy, CABG, left wrist surgery, partial sternal removal in 2010, history of biventricular ICD placement in 2016. FAMILY HISTORY: Father is . Mother with history of hypertension, heart disease, unknown of . Patient has a daughter who he is estranged from. He lives with his fiance and who is also his health care proxy. His fiance is at bedside. His daughter was attempted to be contacted with no answer at the time. SOCIAL HISTORY: Patient is a current active smoker of two packs a day since he was in his teens. His fiance denies any alcohol use or any other drug use. ALLERGIES: No known drug allergies. HOME MEDICATIONS: - aspirin 81 mg twice a day - Plavix - amitriptyline - carvedilol 12.5 mg twice a day - magnesium oxide - Prozac - Entresto - Crestor - Humalog sliding scale - metformin - Lantus - Percocet as needed - nitroglycerine sublingual tablets as needed PHYSICAL EXAMINATION: Temperature 98, pulse 95, respiration 18, blood pressure 113/71 , saturating 99% on the ventilator at 80% FiO2. Patient is intubated and sedated. Is minimally responsive to painful stimuli. HEENT: Normocephalic, atraumatic. Pupils are reactive to light bilaterally and equal. He has moist mucous membranes. Neck is supple. Trachea is midline. No palpable cervical adenopathy. CARDIAC: Regular rate and rhythm. Murmur auscultated. LUNGS: A few crackles at the bases. No wheezing noted. Breath sound equal bilaterally. ABDOMEN: Soft, nontender, nondistended. EXTREMITIES: There is no lower extremity edema noted bilaterally. LABS: WBC 23.6, hemoglobin 17, platelets 346. Sodium 132, potassium 4.7, chloride 100, bicarbonate 17, BUN 12, creatinine 1.49, glucose 574, troponins initially were 1.12, BNP 4787, INR 1.01. U-Tox was negative. Beta hydroxybutyrate was 1.87. ABG: pH was 7.141, pCO2 63,1, pO2 94. IMAGING: Patient had a CT angiogram done which did not show any evidence of pulmonary embolus (PE). Endotracheal tube was right at the level of the nishant. There were some bilateral lower lobe consolidations with air bronchograms and some scattered atelectasis and ground-glass opacities as well as some intralobular septal thickening and small pleural effusions. ASSESSMENT/PLAN: Patient is a 47-year-old male with a significant cardiac history of CABG and multiple stents as well as a history of CVA, insulin dependent diabetes, congestive heart failure, status post biventricular ICD placement. He presented with sudden onset of shortness of breath and chest pain associated with diaphoresis. Patient was in significant respiratory distress in the emergency department. He was intubated at that time. Patient has EKG with left bundle branch block difficult to assess for any evidence of acute ischemia. He did have positive cardiac enzymes on admission. Given his history and the presentation, there is concern for acute coronary syndrome. Patient was also noted to have leukocytosis as well as bilateral opacities with air bronchograms. He did have a history of vomiting prior to admission and likely with some component of aspiration, possible aspiration pneumonia. Neuro: Patient is sedated currently while intubated on propofol. Will continue to titrate propofol drip for a RASS of -1 to -2. Cardiovascular system: Patient has a significant cardiac history with coronary artery disease status post CABG and stents, as well as a systolic heart failure, status post biventricular ICD placement. Patient noted to have positive cardiac enzymes on admission. Given his history and presentation, suspect acute coronary syndrome and possible [id number] myocardial infarction (NSTEMI). Will continue to trend cardiac enzymes. Will repeat an echocardiogram. Appreciate cardiology consult and recommendations. Patient's ICD was interrogated. He did not have any arrhythmias leading up to this event or any shocks noted. Will start a heparin drip for acute coronary syndrome (ACS) and continue with his aspirin and Plavix and statin. Will followup with cardiology about Entresto. S/p Lasix 100 mg IV. Will continue to monitor ins and outs and consider diuresis as tolerated. Patient had a central line placed, was initially on Levophed in the emergency department. However, with improvement of his acidosis, he was able to be weaned off the Levophed. Pulmonary: Patient was intubated in the setting of respiratory distress from likely an acute myocardial infarction (DE). He was also noted to have bilateral opacities with air bronchograms on imaging and a history of vomiting. Likely with aspiration and possible aspiration pneumonia given his leukocytosis. Will start antibiotics with vancomycin and Zosyn. He does have a history of Staphylococcus aureus (MRSA), osteomyelitis. Will followup sputum cultures and blood cultures and de-escalate antibiotics as tolerated. Will continue to wean down his vent settings. He was hypoxic on the vent in the ED, however, with sedation and blood pressure improvement, his oxygenation has improved. Will continue with daily ABGs and chest x-rays. Continue with vent bundle and head-of-bed elevation and chlorhexidine. The patient has a history of heavy smoking. There is no wheezing on exam. Would continue with DuoNebs ATC Gastrointestinal (GI): Patient had an orogastric (OG) tube placed. Will continue nothing by mouth for now. Continue proton pump inhibitor (PPI) for GI prophylaxis. Endocrine: History of insulin dependent diabetes. Patient was hyperglycemic with an anion gap and metabolic acidosis with combined respiratory acidosis secondary to lactic acidosis as well as possible mild diabetic ketoacidosis (DKA). He did have a low positive beta hydroxybutyrate. Patient was started on an insulin drip. His anion gap has improved. Will continue to trend lactic acidosis. Will continue insulin drip for now and continue fingerstick glucose checks and adjustment as per protocol. Will monitor electrolytes and replete as needed. Renal: Patient with acute kidney injury (MARTY) on admission likely in the setting of his acute coronary event. Will continue to monitor renal function and adjust renally dosed medications. Continue to monitor electrolytes and replete as needed. Sahni was placed to monitor ins and outs. Deep venous thrombosis (DVT) prophylaxis: Heparin drip. Patient is FULL CODE. Total critical care time spent not including any procedures, 1 hour and 55 minutes. MTDD
[2018-08-01] MEDS ORDERED: SODIUM CHLORIDE 0.9% 1000ML IV ONE (15:00)
--- NOTE | 2018-08-01 17:39 | CCN ---
DATE: 08/01/2018 Patient was seen and examined this morning. Yesterday patient was given a dose of Lasix with significant urine output. He was noted to become borderline hypotensive after the Lasix administration. This morning, patient appears to be more tachypneic. He does not appear to be agitated. He has continued to be sedated and is minimally responsive to painful stimuli. Patient did follow some commands earlier, but he is now sedated again. He had no fevers or chills. PHYSICAL EXAMINATION: Temperature 97.8, pulse 103, respirations 28, blood pressure 87/55, oxygen saturation 96% on 40% FiO2. In 2.3 liters, out 4 liters, net negative 1.6 liters. GENERAL: The patient is intubated and sedated. Appears diaphoretic. Does not appear to be in any distress at this time. HEENT: Normocephalic, atraumatic. Pupils are reactive to light bilaterally and equal. He has moist mucous membranes. Neck is supple. Trachea is midline. There is no palpable cervical adenopathy. He has a right IJ line in place with a dressing clean, dry and intact. CARDIAC: Tachycardic, regular rate and rhythm. Faint murmur auscultated. LUNGS: Patient has a few crackles at the bases. There is no wheezing noted. No rhonchi. Abdomen is soft, nontender, nondistended. EXTREMITIES: There is no lower extremity edema noted bilaterally. No upper extremity edema or anasarca. LABS: WBC 22.6, hemoglobin 17.0, platelets 346. Sodium 138, potassium 3.6, chloride 102, bicarbonate 25. BUN 21, creatinine increased to 1.49. Glucose 73. Patient's cardiac enzymes were increasing. Troponin peaked around 15.2 and this morning he has trended down to 13. ABG showed a pH of 7.455. PCO2 33.3, pO2 of 134. Chest x-ray showed ET tube in place. Right IJ in place as well. There is mild pulmonary vascular congestion. There is no effusion or consolidations. ASSESSMENT AND PLAN: Patient is a 47-year-old male with a significant cardiac history with CABG and multiple stents as well as history of cerebrovascular accident (CVA), insulin dependent diabetes, congestive heart failure (CHF) status biV automatic implantable cardioverter-defibrillator (AICD) who presented with acute onset of shortness of breath and chest pain associated with diaphoresis. Patient was in respiratory distress in the ED, was intubated at that time. His EKG showed a left bundle branch block which appears chronic. He was noted to have positive cardiac enzymes on admission. Given his history and presentation, there was concern for acute coronary syndrome. Patient was also noted to have some leukocytosis as well as bilateral opacities with air bronchograms on CT. He did have a history of vomiting prior to EMS arrival and possibly with a component of aspiration. NEURO: Patient is sedated while intubated on propofol. He appears to be more tachypneic today, although does not appear to be agitated. He does have a history of chronic low back pain as per his fiance. He does take Percocet and other pain medication as needed. Will give a trial of fentanyl for pain to see if there is any improvement in his tachypnea. Will continue to wean down propofol for a goal RASS of -1 to -2. CARDIOVASCULAR: Patient has significant prior history of coronary artery disease, status post coronary artery bypass graft (CABG) and stents as well as systolic heart failure, status post biventricular AICD placement. Patient had positive cardiac enzymes on admission and given his history there is concern for ACS with [id number] myocardial infarction (NSTEMI). Appreciate cardiology consult and recommendations. Patient was started on heparin drip. Will continue to monitor PTT and adjust accordingly. Continue with aspirin and Plavix. Patient was started on his beta renita, however, he had doses held as his blood pressure was borderline. Patient was given Lasix yesterday with diuresis. He was net negative 1.6 liter. Post Lasix, he was noted to be borderline hypotensive and his creatinine had increased. Will hold off on further diuresis at this time. Patient was also started on Entresto. Will discontinue for now given his slight Cr increase and discuss with cardiology. Will continue with beta blockers as tolerated. continue to monitor his blood pressure. Will followup his echo. Will followup with [facility] as patient will need a diagnostic and potentially interventional cardiac cath at some point PULMONARY: Patient was intubated in the setting of respiratory distress from acute coronary syndrome. He was also noted to have bilateral opacities on CT with air bronchograms with a history of vomiting. He likely has some aspiration and given his leukocytosis, possible aspiration pneumonia. Will continue within vancomycin and Zosyn. Will followup his sputum cultures and de-escalate the antibiotics if possible. Patient was noted on ABG and on exam to be more tachypneic today. Does not appear to be agitated. Patient will be given fentanyl for pain control to see if that improves his tachypnea. He does not have any fevers. Will change patient from pressure regulated volume control (PRVC) to pressure controlled ventilation to see if there is an improvement in his synchrony and respiratory rate. Will continue daily ABGs and chest x-rays while intubated. Will continue with the vent bundle. Patient has a history of smoking and does not currently have any wheezing. Continue with DuoNebs. GI: Patient had OG tube placed. Will start tube feeds today at trophic rate. He does have some scant coffee-ground material in his OG tube, will change PPI to twice a day. ENDOCRINE: History of insulin dependent diabetes. Patient was hyperglycemic on admission with anion gap and metabolic acidosis with combined respiratory acidosis. He did have a low level of beta hydroxybutyrate so patient was started on insulin drip. His anion gap has resolved and his lactic acidosis has also trended down. Will continue with insulin drip and fingerstick lucose checks for now. Will continue to monitor electrolytes and replete as needed. RENAL: Patient with acute kidney injury (MARTY) on admission likely in the setting of his acute coronary event. His creatinine had initially improved, and then his BUN and creatinine increased today after Lasix and after starting Entresto. Will hold those medications for now and continue to monitor his renal function. Continue monitoring his ins and outs. Patient was noted to have decreased urine output today. Will repeat electrolytes as needed. Deep venous thrombosis (DVT) prophylaxis, heparin drip. Patient is FULL CODE. Total critical care time spent not on any procedures: 45 minutes. MTDD
[2018-08-01] MEDS: HEPARIN DRIP 25,000 UNITS in APPROPRIATE DILUENT 1 EA IV SCH (19:21)
[2018-08-01] MEDS: DIGOXIN INJ 0.5 MG/2 ML AMP (J1160) IV SCH (20:49)
[2018-08-01] MEDS ORDERED: VANCOMYCIN HCL 1,000 MG, VIAL MATE ADAPTER 1 EACH in D5W 250 ML IV SCH (21:00)
[2018-08-02] VITALS (30 sets, daily range): BP systolic 74–141; BP diastolic 40–74; O2SAT 96
[2018-08-02] MEDS: INSULIN IV RATE CHANGE DOCUMENTATION ML/HR XX SCH ×2 (01:56→08:27)
[2018-08-02] MEDS ORDERED: DEXTROSE 50% 50 ML SYRINGE IV PRN (02:00)
[2018-08-02] MEDS ORDERED: GLUCAGON FOR INJ 1 MG VIAL (J1610) SC PRN (02:00)
[2018-08-02] MEDS ORDERED: GLUCOSE 4 GM CHEW TABLET PO PRN (02:00)
--- NOTE | 2018-08-02 02:53 | IPN ---
DATE: 08/01/2018 Mr. Dae Shipman was seen during this evening. He is still intubated and sedated. He is not in acute distress. He was initially seen yesterday by Dr. Bundy. He presented to the hospital/emergency room (ER) with respiratory failure and was intubated. He ruled in for acute myocardial infarction (AMI). His primary materials branch chief is Dr. Vikas Garcia. He has a history of ischemic cardiomyopathy with automatic implantable cardioverter-defibrillator (AICD)/biventricular (BI- V) implant, coronary artery bypass graft, peripheral artery disease, and multiple risk factors for coronary artery disease. He was treated yesterday for heart failure and received intravenous (IV) Lasix. His urinary output was low today, and he was given 250 mL bolus of normal saline. Blood pressure has been running low, and he has not been receiving the beta-renita/carvedilol. It seemed that he was on Entresto as outpatient and did receive one dose here in the hospital. He has been tachycardiac. When I saw him, there was no orthopnea or paroxysmal nocturnal dyspnea (PND). ON PHYSICAL EXAMINATION: Patient is intubated and sedated. His most recent vital signs when I saw him reveal a blood pressure 106/72 with a pulse of 120, respirations 24-26, and maximum temperature is 98.3 degrees Fahrenheit with an oxygen saturation of 95% on ventilator with an FiO2 of 1.4. Yesterday, 07/31/2018, he had a negative fluid balance of 1.6 liters. So far today, he has a fluid balance of positive 174 mL. Examination of the head: Atraumatic. Neck is supple. The lungs revealed bilateral rhonchi but no wheezing. The heart examination revealed normal S1 and S2 without gallops. The point of maximal impulse (PMI) is displaced inferiorly and laterally. There is no rub. I could not appreciate any murmurs. Abdomen is unremarkable. Extremities revealed no pedal edema. Neurological examination was not assessed. LABS: CBC done today revealed a WBC of 23.6, hemoglobin 17.0, hematocrit 49.5, and platelet 346,000. BMP revealed a sodium of 138, potassium 3.6, chloride 102, CO2 of 25, BUN 21, creatinine 1.49, GFR 53.4, fasting glucose 73, and calcium 8.8. Serum troponin on admission was 1.12 and peaked up to 15.20 last evening; and this morning, it was 13.00. Liver enzymes on admission revealed a total bilirubin of 0.7, AST 67, ALT 26, alkaline phosphatase 111, total protein 6.9, albumin 3.6. Telemetry revealed sinus tachycardia, and pacemaker activity is noted. Chest x-ray done today revealed no acute cardiopulmonary disease process. On admission, diffuse bilateral interstitial infiltrates were reported. CT angiogram of the chest revealed no definite evidence of pulmonary embolism. There were findings consistent with multifocal pneumonia versus heart failure/pulmonary edema. IMPRESSION: 1. Non-ST elevation myocardial infarction. 2. History of coronary artery disease (CAD) with coronary artery bypass graft (CABG). 3. History of ischemic cardiomyopathy with severe left ventricular systolic dysfunction. 4. History of peripheral artery disease. 5. History of hypertension. 6. Diabetes mellitus. 7. Hyperlipidemia. 8. History of chronic obstructive pulmonary disease (COPD). 9. History of methicillin-resistant Staphylococcus aureus (MRSA) osteomyelitis of the sternum. 10. History of cerebrovascular accident (CVA), remote. Dae Baltazar seems to be stable, but prognostic is guarded in view of his diagnostic and comorbid condition. He has severely depressed global left ventricular systolic function and another non-ST elevation myocardial infarction and probably underlying pneumonia. He has been tachycardic. His blood pressure is low. He has not been receiving the beta-renita. He is not a candidate at this present time for LORI inhibitor or ARB or Entresto. He is currently, for his underlying cardiac condition, on Clopidogrel as well as aspirin, and a statin. He is also on carvedilol but has not been able to receive it. He will be loaded with digoxin for now, and he will be monitored. The initial plan is to proceed with a cardiac catheterization at some point, but that is going to be done in the near future. We should continue with the IV antibiotics. I will monitor him along with you until Dr. Giordano is back to town. Please do not hesitate to call if any questions. KENDELL
[2018-08-02] MEDS: DIGOXIN INJ 0.5 MG/2 ML AMP (J1160) IV SCH ×3 (03:35→15:00)
[2018-08-02] MEDS: INSULIN HUMAN REGULAR 100 UNITS in NS 99 ML IV SCH (04:13)
[2018-08-02] MEDS: PIPERACILLIN/TAZOBACTAM SOD 4.5 GM in D5W MINI-BAG PLUS 50 ML IV SCH (05:26)
[2018-08-02] MEDS: CARVedilol 6.25 MG TAB NG SCH ×2 (06:00→12:00)
[2018-08-02 06:16] LABS: ABG BASE EXCESS -1.6 (-2.0-2.0); ABG O2 SATURATION 96.2 % (95.0-99.0); ABG PARTIAL PRESSURE CO2 30.7 mmHg (35.0-45.0); ABG PARTIAL PRESSURE O2 79.6 mmHg (75.0-100.0); ABG STANDARD HCO3 23.1 MEQ/L (22.0-26.0); ABG TOTAL CO2 21.9 MEQ/L (22.0-29.0); ABG pH (ARTERIAL) 7.453 UNITS (7.350-7.450)
[2018-08-02 07:20] LABS: CALCIUM LEVEL 8.9 MG/DL (8.5-10.1); CREATININE FOR GFR 3.62 MG/DL (0.70-1.30); GLOMERULAR FILTRATION RATE 19.2 (>60); POTASSIUM SERUM 3.8 MEQ/L (3.5-5.1)
--- NOTE | 2018-08-02 08:01 | REP ---
Clinical: Intubation . Comparison: 08/01/2018 at 06:57 a.m. . Findings: Right IJ line with tip in the SVC. Endotracheal tube approximately 4 cm above the nishant. Nasogastric tube courses below left hemidiaphragm. The mediastinum and cardiac silhouette are stable and within normal limits for portable technique. The lung patterson demonstrates subtle residual perihilar opacity/atelectasis. Skeletal structures are intact. Impression: Lines and tubes in satisfactory position. Subtle bilateral infrahilar residual atelectasis suggested. Electronically Signed by Shakeel Ramírez MD 08/02/2018 07:52 A
[2018-08-02] MEDS: ALBUTEROL SULFATE 2.5 MG/0.5 ML INH NEB SOLN NEB SCH ×4 (08:15→19:49)
[2018-08-02] MEDS: HEPARIN DRIP 25,000 UNITS in APPROPRIATE DILUENT 1 EA IV SCH (09:40)
[2018-08-02] MEDS: PROPOFOL 1,000 MG in APPROPRIATE DILUENT 1 EA IV SCH ×2 (09:41→16:59)
[2018-08-02] MEDS: CLOPIDOGREL 75 MG TAB PO SCH (09:49)
[2018-08-02] MEDS: ROSUVASTATIN 10 MG TAB (CRESTOR) PO SCH (09:49)
[2018-08-02] MEDS: ASPIRIN 81 MG CHEW TABLET NG SCH ×2 (09:49→20:27)
[2018-08-02] MEDS: PANTOPRAZOLE 40MG INJ (PROTONIX) (C9113) IV SCH (09:50)
[2018-08-02] MEDS: CHLORHEXIDINE GLUCONATE 0.12 % 15ML UDC (PERIDEX ORAL RINSE) MT SCH ×2 (09:50→20:28)
[2018-08-02] MEDS ORDERED: NS 500 ML IV ONE (10:30)
[2018-08-02 11:28] LABS: BASO # 0.1 10^3/uL (0.0-0.2); BASO % 0.4 % (0.0-1.0); HEMATOCRIT 41.3 % (42.0-52.0); HEMOGLOBIN 13.9 g/dl (13.5-17.5); LYMPH # 1.7 10^3/uL (1.5-4.5); LYMPH % 6.5 % (24.0-44.0); MEAN CORPUSCULAR HEMOGLOBIN 29.9 pg (27.0-33.0); MEAN CORPUSCULAR HGB CONC 33.7 g/dl (32.0-36.5); MEAN CORPUSCULAR VOLUME 88.8 fl (80.0-96.0); MONO % 15.1 % (0.0-5.0); NEUTROPHILS # 20.2 10^3/uL (1.8-7.7); NEUTROPHILS % 76.3 % (36.0-66.0); PLATELET COUNT, AUTOMATED 323 10^3/uL (150-450); RED BLOOD COUNT 4.65 10^6/uL (4.30-6.10); WHITE BLOOD COUNT 26.5 10^3/uL (4.0-10.0)
[2018-08-02] MEDS: HumaLOG INSULIN (NovoLOG) PER UNIT SC SCH ×3 (12:00→23:14)
[2018-08-02 12:45] LABS: ALBUMIN 2.7 GM/DL (3.2-5.2); CALCIUM LEVEL 8.3 MG/DL (8.5-10.1); CREATININE FOR GFR 4.43 MG/DL (0.70-1.30); GLOMERULAR FILTRATION RATE 15.2 (>60); PHOSPHORUS LEVEL 8.6 MG/DL (2.5-4.9); POTASSIUM SERUM 5.2 MEQ/L (3.5-5.1)
[2018-08-02] MEDS ORDERED: MAGNESIUM *L&D* 4 GM/100 ML BAG (40MG/ML) (J3475) As Ordered ONE ×2 (12:49→12:51)
--- NOTE | 2018-08-02 12:54 | PHACANCOPD ---
PHARMACY VANCOMYCIN DOSING Pt Demographics Demographics Patient Age:47 , Weight:82.300 , Gender: male Adjusted Body Weight Date: 08/02/18, Adjusted Body Weight: [87] Kg Events Past 24 Hours Events Past 24 Hours: YES: Change in CrCl; NO: Dialysis, Diuretic Therapy, Fever, Elevation in WBC, Pending Diagnostics, Pending Procedures, Other Vancomycin Vancomycin indication: PNEUMONIA Vancomycin Target Ranges: 15-20 mcg/ml Vancomycin Load Y/N: No Load Dose Date Time Vancomycin Load Dose: Date: Time: Vancomycin Dose Date: 08/02/18. Current Vancomycin Dose: [1G IV Q24H] Intermittent Dosing?: No Labs Labs Item Value Date Time White Blood Count 22.9 10^3/uL H 07/31/18 0545 White Blood Count 23.6 10^3/uL H 07/31/18 0934 White Blood Count 26.5 10^3/uL H 08/02/18 1109 Creatinine 1.49 MG/DL H 08/01/18 0630 Creatinine 3.62 MG/DL H # 08/02/18 0630 Micro Microbiology 07/31/18 Blood Culture - Preliminary, Resulted No Growth after 48 hours. All Specime... 07/31/18 Gram Stain - Final, Resulted 07/31/18 Sputum Culture - Preliminary, Resulted Strep Agalactiae Group B Creatinine Clearance Date:08/02/18. Creatinine Clearance: [27ML/MIN]. Pending Labs VANCOMYCIN LEVEL 08/03 AM Assessment and Plan Maintaining Current Dose?: Yes Reason for dose change: No Dose Change Pharmacist Note Pharmacist Note Date: 08/02/18. Pharmacist note:PT is a 47 year old male being treated for pneumonia goal trough 15-20mcg/ml. The trough came back this am @ 07:48 @ 22.7mcg/ml. Today's dose was held. Vancomycin level will be drawn tomorrow am with morning labs and restarted 08/03 @ 08:00. Dosing will consist of 1g IV every 24 hours. We will continue to monitor and adjust the dose as needed. [facility] Aug 02, 2018 12:54
[2018-08-02] MEDS ORDERED: NOREPINEPHRINE 4 MG/4 ML AMP As Ordered ONE (13:02)
[2018-08-02] MEDS ORDERED: AMIODARONE HCL 360 MG/200 ML PREMIXED BAG (NEXTERONE) As Ordered ONE (13:17)
[2018-08-02 13:45] LABS: ABG BASE EXCESS -14.6 (-2.0-2.0); ABG HCO3 14.6 MEQ/L (22.0-26.0); ABG O2 SATURATION 90.5 % (95.0-99.0); ABG PARTIAL PRESSURE O2 83.4 mmHg (75.0-100.0); ABG STANDARD HCO3 13.2 MEQ/L (22.0-26.0)
[2018-08-02 13:48] LABS: ABG pH (ARTERIAL) 7.109 UNITS (7.350-7.450)
[2018-08-02] MEDS ORDERED: SODIUM BICARBONATE 8.4% INJ 50 ML SYRINGE As Ordered ONE ×2 (13:59→14:17)
[2018-08-02] MEDS ORDERED: AMIODARONE HCL 360 MG in APPROPRIATE DILUENT 1 EA IV SCH ×2 (14:00→20:00)
[2018-08-02] MEDS: NOREPINEPHRINE BITARTRATE 8 MG in D5W 492 ML IV SCH ×2 (14:00→19:09)
--- NOTE | 2018-08-02 14:09 | CCN ---
DATE: 08/02/2018 The patient was seen and examined this morning. The patient continues to be intubated and is sedated. The patient has been noted overnight to have decreasing urine output. He has also continued to be tachypneic, although it has improved slightly since being changed to pressure control ventilation. He was more tachycardic overnight and was started on digoxin load, as per cardiology. The patient was started on tube feeds, which he has been tolerating with no residuals. PHYSICAL EXAMINATION: The patient has been afebrile overnight. Temperature 98.2, pulse 113, respirations 26, blood pressure 96/56, oxygen saturation 97% on 40% FiO2. In 2.1 liters, out 1.4 liters, net positive 676. GENERAL: The patient is intubated and sedated. Was diaphoretic. Is not febrile. HEENT: Normocephalic, atraumatic. Pupils are reactive to light bilaterally. He has moist mucous membranes. Neck is supple. Trachea is midline. There is no palpable cervical adenopathy. He has a right IJ line in place. CARDIAC: Tachycardic, regular rate and rhythm. Faint murmur auscultated. LUNGS: Patient has coarse ventilator breath sounds bilaterally. No wheezing, crackles or rhonchi noted. ABDOMEN: Soft, nontender, nondistended. Positive bowel sounds. EXTREMITIES: There is no lower extremity edema noted bilaterally. No evidence of any anasarca. LABORATORIES: CBC: WBC is 26.5, hemoglobin is 13.9, platelets are 323. PTT overnight was 75.5 and this morning was 107.4. ABG showed pH 7.453, PCO2 of 30.7, PO2 of 79.6. Chemistry showed a sodium of 136, potassium 3.8, chloride 94, bicarbonate 24, BUN 41, creatinine increased to 3.62, glucose was 94, calcium 8.9. AG was 13 Chest x-ray showed ET tube in good position. Right IJ line is in place with the tip in the SVC. There are no pleural effusions and no focal opacities noted. There is a biventricular ICD in the left chest wall. Echocardiogram: Left ventricular dilated globally hypokinetic apex is completely akinetic, inferior wall severely hypokinetic and dyskinetic. Lateral and inferolateral wall have preserved mobility. Internal wall severely hypokinetic as well. Ejection fraction around 15 to 20%. RV does not appear grossly enlarged. Both atria are mildly enlarged. No significant valvular pathology. IVC borderline dilated and no appreciable collapse with respiration. Unable to estimate pulmonary artery pressure. ASSESSMENT AND PLAN: Patient is a 47-year-old male with a significant cardiac history with coronary artery bypass graft (CABG) and multiple stents, as well as history of cerebrovascular accident (CVA), insulin dependent diabetes, congestive heart failure (CHF), status biV automatic implantable cardioverter-defibrillator (AICD) who presented with acute onset of shortness of breath and chest pain associated with diaphoresis. Patient was in respiratory distress in the emergency department and was intubated. His EKG showed a left bundle branch block, which appears chronic. He had positive cardiac enzymes on admission. Given his history and presentation, there was concern for acute coronary syndrome. Patient also had leukocytosis and on his CT of the chest there were bilateral opacities with air bronchograms with concern of possible aspiration, as he had vomited prior to emergency medical services (EMS) arrival. NEURO: Patient is sedated while intubated on propofol. The patient appeared to be more tachypneic. We will start fentanyl as needed for pain and continue with propofol for sedation and wean down and titrate for a RASS of -1 to -2. He does not appear to be agitated. CARDIOVASCULAR: Patient has a significant history of coronary artery disease, status post coronary artery bypass graft (CABG) and stents, as well as systolic heart failure, status post biventricular AICD placement. Patient presented with shortness of breath and chest pain and was noted to have positive cardiac enzymes and likely acute coronary syndrome with ewj-CT-jzmwnwxda myocardial infarction (NSTEMI). Patient was started on heparin drip and continued with his aspirin and Plavix and statin. Appreciate cardiology consultation. He was given beta renita; however, he had been unable to tolerate it due to borderline hypertension. He was also given Entresto, which was discontinued yesterday due to his increased creatinine. Overnight, the patient was more tachycardic and was started on digoxin for rate control by cardiology. We will continue to monitor. His echocardiogram on this admission showed an ejection fraction of 15 to 20%. There is segmental and global wall motion abnormalities. No significant valvular disease and at least mildly elevated central venous pressure. PULMONARY: Patient is intubated in the setting of respiratory distress from acute coronary syndrome. He also was noted to have bilateral opacities on CT of the chest with air bronchograms and given the history of vomiting, there is concern for aspiration, likely aspiration pneumonia with his leukocytosis. The patient was started on vancomycin and Zosyn. Sputum cultures prelim shows Streptococcus agalactiae, sensitivities are pending. The patient also is noted to have worsening renal failure and acidosis, which may also be contributing to his tachypnea. Will also start fentanyl prn for pain. We will continue with pressure control ventilation and follow up his daily ABG and chest x-rays. Continue DuoNeb given his history of smoking. GASTROINTESTINAL: Patient has orogastric tube placed and was started on tube feeds yesterday at a trophic rate, which he has been tolerating. We will continue proton pump inhibitor and continue tube feeds. We will increase tube feeding rates as tolerated. ENDOCRINE: History of insulin dependent diabetes. Patient was initially hyperglycemic on admission with an anion gap and metabolic acidosis with combined respiratory acidosis. He also had a low positive beta hydroxybutyrate and so was started on an insulin drip. His fingerstick glucoses have improved and have trended down. We will discontinue insulin drip and change to sliding scale coverage. RENAL: Patient with acute kidney injury (MARTY) on admission, likely in the setting of his acute coronary event. His creatinine had initially improved, and then had increased after Lasix and Entresto, so the medications were held yesterday. This morning, the patient was noted to have a significant increase in his creatinine, as well as decrease in his urine output to approximately 15 mL an hour. The patient was given a bolus of normal saline with no improvement in his urine output. We will followup his repeat renal function. If the patient is having increasing creatinine and acidosis, may require possible hemodialysis at some point. We will continue to monitor his urine output and replete electrolytes as needed. Deep venous thrombosis (DVT) prophylaxis with heparin drip. Patient is FULL CODE. Total critical care time spent, not including any procedures: 45 minutes. MTDD
--- NOTE | 2018-08-02 14:13 | RO ---
DATE OF PROCEDURE: 08/02/2018 PREPROCEDURE DIAGNOSIS: Cardiac arrest. POSTPROCEDURE DIAGNOSIS: Cardiac arrest. PROCEDURE: Arterial line insertion. SURGEON: Dr. Makenzie Bradford. INDICATION: Shock. CONSENT: Procedure was performed emergently and the permission was implied due to the emergent nature. DESCRIPTION OF PROCEDURE: A time-out was performed. My hands were washed immediately prior to the procedure. A surgical cap, mask, with protective viral sterile gown and sterile gloves were worn throughout the procedure. The right axillary region was prepped using Chlorhexidine scrub and draped in a sterile fashion using fenestrated sheet. The axillary artery was identified using ultrasound. Using real-time out of plane guidance, the introducer needle was advanced under ultrasound guidance into the right axillary artery. The syringe was removed and pulsatile blood was seen coming from the needle. A wire was advanced into the needle into the axillary artery. The needle was exchanged over the wire for an arterial catheter. The wire was removed and the catheter was secured to the skin using a suture. The patient tolerated the procedure well without any hemodynamic compromise. At the time of the procedure completion, the catheter was connected to a cardiac technologist and calibrated. Appropriate waveform and blood pressure tracing was observed. KENDELL
[2018-08-02] MEDS ORDERED: SODIUM BICARBONATE 8.4% INJ 50 ML SYRINGE ONE (14:15)
[2018-08-02] MEDS ORDERED: AMIODARONE HCL 150 MG/100 ML PREMIXED BAG (NEXTERONE) ONE (14:15)
[2018-08-02] MEDS ORDERED: AMIODARONE 150MG/3ML INJ (J0282) ONE (14:15)
[2018-08-02] MEDS ORDERED: CALCIUM CHLORIDE 10% 1 GM/10 ML SYR ONE (14:15)
[2018-08-02] MEDS ORDERED: EPINEPHrine 1MG/10ML SYRINGE 1.5IN ONE (14:15)
--- NOTE | 2018-08-02 14:23 | ECGEPIP ---
Stationary ECG Study [facility] Test Date: 2018-08-02 Pat Name: SEREN[place] RIVER Department: Room: [place] [address] Gender: M Head Nurse: SATINDER : 1970 Requested By: DINORA BARBA Order Number: [id number] Reading MD: Sujatha Ellsworth Measurements Intervals [place] Rate: 83 P: 51 IA: 165 QRS: 89 QRSD: 168 T: -60 QT: 472 QTc: 557 Interpretive Statements ELECTRONIC VENTRICULAR PACEMAKER NSR ABNORMAL RHYTHM ECG RATE SLOWER WITH V PACING C/W 07/31/18 Electronically Signed On 08-02-2018 14:23:21 EST by Sujatha Ellsworth
--- NOTE | 2018-08-02 14:25 | CCN ---
EVENT NOTE DATE: 08/02/2018 This afternoon the patient was noted on telemonitor to have an episode of nonsustained VT, approximately 20 beats. The patient was awaiting repeat renal panel as his initial labs from this morning showed worsening renal functions. The patient was then noted around 1:45 p.m. to be bradying down into the 80s on the monitor. The patient appeared pale and grayish in color, there was no pulse palpable and CPR was initiated. Initial rhythm on the monitor after the defibrillator pads were connected appeared to be asystole. The patient received 1 amp of bicarb at the initiation of CPR. He then received epinephrine with CPR. Repeat rhythm appeared to be ventricular fibrillation. The patient was shocked with 300 joules and CPR was restarted. The patient received more rounds of epinephrine and bicarb as well as calcium chloride and magnesium supplementation. He also received another shock at 360 joules. During the CPR, the patient's AICD also started shocking him, approximately 3-4 times. The patient was also given amiodarone during the code with 300 mg. The patient had return of spontaneous circulation approximately 15 minutes later. He had a blood pressure, was hypotensive, was started on IV fluid normal saline bolus, as well as Levophed initially at 10 mcg per minute. ABG immediately post arrest showed a pH of 7.109, this is after 3 amps of bicarb that was administered during the code. The patient was started on a bicarb drip. A right axillary A-line was also placed for further monitoring and for blood draws. The patient's fiance was at the bedside prior to the start of the cardiac arrest. She was updated on his condition and the patient's daughter was also en route to the hospital. The patient did not regain consciousness or have any purposeful movements post arrest. Therefore hypothermia protocol will be started. The patient has repeat labs pending including a repeat CBC, chemistry with electrolytes, coag and lactic acid. Renal has also been consulted as the patient continues to be oliguric and with worsening renal failure and acidosis. Post arrest the patient was also changed from pressure control ventilation to volume control ventilation. Will follow-up a repeat ABG. [facility]
[2018-08-02] MEDS ORDERED: VASOPRESSIN INJ 20 UNITS/ML VIAL As Ordered ONE (14:28)
[2018-08-02] MEDS: VASOPRESSIN INJ 20 UNITS in NS 499 ML IV SCH ×2 (14:35→22:50)
[2018-08-02 14:52] LABS: MB/CK RELATIVE INDEX 0.27 (< OR =4); TROPONIN I 9.13 NG/ML (< 0.10)
--- NOTE | 2018-08-02 15:02 | CCN ---
DATE: 08/02/2018 ADDENDUM: To the event note provided this afternoon. Patient is requiring increasing Vasopressor support. He is on max Levophed with Vasopressin being added. Patient continues to be hypotensive and acidotic. Was started on a bicarbonate drip with 3 amps of bicarbonate at 150 mL/h. Patient is too hemodynamically unstable for hypothermia protocol, although with the temperature sensing Sahni, he is already at 36.1 degrees on his own. Patient is also too hemodynamically unstable for continuous veno-venous hemodialysis (CVVHD) at this point. Discussed with the patient's family, with his fiance, with his daughter, his son, at bedside about his poor prognosis and increasing vasopressor requirements. After discussion, the decision was made that the patient will be DO NOT RESUSCITATE at this time. KENDELL
[2018-08-02] MEDS ORDERED: NS 1,000 ML IV ONE (15:30)
[2018-08-02] MEDS: PIPERACILLIN/TAZOBACTAM SOD 3.375 GM in D5W MINI-BAG PLUS 50 ML IV SCH ×2 (15:30→18:19)
[2018-08-02 15:52] LABS: HEMATOCRIT 34.6 % (42.0-52.0); HEMOGLOBIN 11.1 g/dl (13.5-17.5); MEAN CORPUSCULAR HEMOGLOBIN 30.5 pg (27.0-33.0); MEAN CORPUSCULAR HGB CONC 32.1 g/dl (32.0-36.5); MEAN CORPUSCULAR VOLUME 95.1 fl (80.0-96.0); PLATELET COUNT, AUTOMATED 272 10^3/uL (150-450); RED BLOOD COUNT 3.64 10^6/uL (4.30-6.10); WHITE BLOOD COUNT 25.2 10^3/uL (4.0-10.0)
[2018-08-02 16:19] LABS: ABG BASE EXCESS -11.6 (-2.0-2.0); ABG HCO3 13.3 MEQ/L (22.0-26.0); ABG O2 SATURATION 93.6 % (95.0-99.0); ABG PARTIAL PRESSURE CO2 27.5 mmHg (35.0-45.0); ABG PARTIAL PRESSURE O2 80.2 mmHg (75.0-100.0); ABG STANDARD HCO3 15.3 MEQ/L (22.0-26.0); ABG TOTAL CO2 14.1 MEQ/L (22.0-29.0); ABG pH (ARTERIAL) 7.301 UNITS (7.350-7.450)
[2018-08-02 16:29] LABS: BILIRUBIN,TOTAL 1.9 MG/DL (0.2-1.0); CALCIUM LEVEL 8.5 MG/DL (8.5-10.1); CREATININE FOR GFR 4.87 MG/DL (0.70-1.30); GLOMERULAR FILTRATION RATE 13.6 (>60); POTASSIUM SERUM 4.4 MEQ/L (3.5-5.1); TOTAL PROTEIN 4.9 GM/DL (6.4-8.2)
[2018-08-02 16:36] LABS: ATYPICAL LYMPH 7 % (0-5); LYMPHOCYTES 2 % (16-52); METAMYELOCYTES 2 % (0-0); MONOCYTES 12 % (0-8); NEUTROPHILS 51 % (35-75)
[2018-08-02 16:37] LABS: PLATELET ESTIMATE NORMAL (NORMAL)
--- NOTE | 2018-08-02 16:51 | IPN ---
CARDIOLOGY PROGRESS NOTE: 08/02/2018 Time: 4:09 p.m. SUBJECTIVE: Patient is currently intubated, ventilated and sedated and unable to provide any history. PHYSICAL EXAMINATION: Presence of an endotracheal tube, nasogastric tube and a triple lumen catheter via the right internal jugular vein. Jugular venous pulsations were 3 cm with the patient supine. Midline sternal scar present, well healed. Implantable cardioverter defibrillator (ICD) incision and ICD in situ left pectoral region. First heart sound was diminished. Second heart sound was normal intensity. No S3 or S4 was appreciated. No murmurs appreciated. Respiratory expansion on the ventilator was good. No crackles appreciated. Abdomen was soft and nontender with normal bowel sounds. Skin appeared normal. No peripheral edema in the legs. Pedal pulses mildly diminished. Most recent vital signs are as follows: Temperature 97.2, pulse 107, however at the bedside it was down to 80 beats per minute. Respiratory rate on vent 48, oxygen saturation 96% on ventilator with FiO2 of 40%. Blood pressure 96/56. Input/output for the 24 hours of 08/01/2018 showed the patient to be net fluid positive 676 mL. LABORATORY WORK: 08/02/2018: WBC 26.5, hemoglobin 13.9, hematocrit 41.3, platelets 323. Sodium 136, potassium 5.2, chloride 100, CO2 19, BUN 17, creatinine 52. Estimated GFR 15.2. Creatinine 4.43. Albumin 2.7. CPK total 555. CPK-MB 2.0. Troponin I 9.13. ASSESSMENT AND PLAN: 1. Wly-IL-zfhvruwjy myocardial infarction (NSTEMI). It is unclear whether or not this patient's NSTEMI was a primary atherosclerotic plaque event versus secondary to decompensated heart failure. If the patient is able to be weaned off of intertropes and to get off the ventilator then the plan will be to refer him (transfer him) to [facility] in [place] for a repeat cardiac catheterization with possible percutaneous coronary intervention. 2. Coronary artery disease (CAD) (without angina). NSTEMI (present hospitalization). Prior history of coronary artery bypass graft (CABG), and multiple percutaneous coronary interventions. Continue aspirin, carvedilol will be switched to bisoprolol because of the hypotension. Continue clopidogrel. Continue heparin. Continue simvastatin 20 mg daily. 3. Acute on chronic heart failure (systolic and diastolic). Patient appears to be compensated on examination at the moment. With his acute kidney injury and low blood pressure he is not a suitable candidate at this time for use of angiotensin-converting enzyme (LORI) inhibitor or angiotensin II receptor blockers (ARB). He does not need a diuretic at the present time as he is presently compensated. I will switch him from carvedilol to bisoprolol because of the hypotension so I can get rid of the peripheral alpha blocking properties of the carvedilol. 4. Status post CABG. As per CAD above. 5. Ischemic cardiomyopathy. As per heart failure category above. 6. Hyperlipidemia. Continue statin therapy. 7. Systemic hypertension. The patient is presently being treated with pressors for hypotension. As mentioned above, he has been switched from carvedilol to bisoprolol to get rid of the peripheral alpha blocking properties of carvedilol. 8. Old myocardial infarcts. As per CAD category above. 9. Multiple pecutaneous coronary interventions. As per CAD category above. 10. Status post biventricular ICD in situ. I performed the quick opt and applied the sync AV algorithm and programmed the sync AV to the on. 11. Left bundle branch block. Status post biV ICD in situ. 12. Ventricular fibrillation. I have switched the patient from IV amiodarone over to amiodarone 4 mg per NG tube three times a day. I have also just spoken with Dr. Makenzie Bradford, the ICU doctor who explained that the patient is currently DO NOT RESUSCITATE (DNR) status and she requested that I turn off the tachyarrhythmia therapy of the ICD and I will do this.
[2018-08-02] MEDS: BISOPROLOL FUM 2.5 MG PER 1/2TAB GT SCH (20:28)
[2018-08-02] MEDS: SODIUM BICARBONATE 150 MEQ in D5W 1,000 ML IV SCH (20:32)
[2018-08-02] MEDS: AMIODARONE 200 MG TAB (PACERONE) GT SCH (21:02)
[2018-08-03] VITALS (25 sets, daily range): BP systolic 84–129; BP diastolic 42–87; O2SAT 98
[2018-08-03] MEDS: PIPERACILLIN/TAZOBACTAM SOD 3.375 GM in D5W MINI-BAG PLUS 50 ML IV SCH ×4 (00:53→18:54)
[2018-08-03] MEDS: NOREPINEPHRINE BITARTRATE 8 MG in D5W 492 ML IV SCH ×4 (03:00→23:09)
[2018-08-03] MEDS: MIDAZOLAM INJ 2 MG/2 ML VIAL (J2250) IV PRN (04:40)
[2018-08-03] MEDS: AMIODARONE 200 MG TAB (PACERONE) GT SCH ×3 (05:08→21:44)
[2018-08-03 05:42] LABS: ABG BASE EXCESS -4.5 (-2.0-2.0); ABG HCO3 19.1 MEQ/L (22.0-26.0); ABG O2 SATURATION 91.7 % (95.0-99.0); ABG PARTIAL PRESSURE CO2 30.3 mmHg (35.0-45.0); ABG PARTIAL PRESSURE O2 70.7 mmHg (75.0-100.0); ABG STANDARD HCO3 20.6 MEQ/L (22.0-26.0); ABG pH (ARTERIAL) 7.417 UNITS (7.350-7.450)
[2018-08-03 05:48] LABS: HEMATOCRIT 31.2 % (42.0-52.0); HEMOGLOBIN 10.4 g/dl (13.5-17.5); MEAN CORPUSCULAR HEMOGLOBIN 29.7 pg (27.0-33.0); MEAN CORPUSCULAR HGB CONC 33.3 g/dl (32.0-36.5); MEAN CORPUSCULAR VOLUME 89.1 fl (80.0-96.0); PLATELET COUNT, AUTOMATED 207 10^3/uL (150-450); WHITE BLOOD COUNT 14.7 10^3/uL (4.0-10.0)
[2018-08-03] MEDS: VASOPRESSIN INJ 20 UNITS in NS 499 ML IV SCH ×3 (06:10→21:22)
[2018-08-03] MEDS: HumaLOG INSULIN (NovoLOG) PER UNIT SC SCH ×3 (06:10→15:43)
[2018-08-03 06:36] LABS: CALCIUM LEVEL 5.6 MG/DL (8.5-10.1); CREATININE FOR GFR 6.18 MG/DL (0.70-1.30); GLOMERULAR FILTRATION RATE 10.3 (>60); POTASSIUM SERUM 4.4 MEQ/L (3.5-5.1)
[2018-08-03] MEDS ORDERED: VANCOMYCIN HCL 1,000 MG, VIAL MATE ADAPTER 1 EACH in D5W 250 ML IV SCH (08:00)
[2018-08-03] MEDS: ALBUTEROL SULFATE 2.5 MG/0.5 ML INH NEB SOLN NEB SCH ×4 (08:20→19:39)
--- NOTE | 2018-08-03 08:21 | REP ---
Clinical: Intubation. Comparison: 08 02 18. Findings: Endotracheal tube 3 cm above the nishant. Nasogastric tube courses below left hemidiaphragm. Right IJ line with tip in the SVC. Cardiac silhouette is stable and within normal limits. New perihilar and left lower lobe opacity suggests elements of atelectasis. No definite effusion. No pneumothorax. Skeletal structures intact. Impression: 1. Lines and tubes in satisfactory position. 2. New perihilar and left lower lobe opacities suggesting elements of atelectasis. Electronically Signed by Shakeel Ramírez MD 08/03/2018 08:13 A
[2018-08-03] MEDS: CLOPIDOGREL 75 MG TAB PO SCH (09:15)
[2018-08-03] MEDS: ASPIRIN 81 MG CHEW TABLET NG SCH ×2 (09:16→21:44)
[2018-08-03] MEDS: ROSUVASTATIN 10 MG TAB (CRESTOR) PO SCH (09:16)
[2018-08-03] MEDS: CHLORHEXIDINE GLUCONATE 0.12 % 15ML UDC (PERIDEX ORAL RINSE) MT SCH ×2 (09:17→21:00)
[2018-08-03] MEDS: PANTOPRAZOLE 40MG INJ (PROTONIX) (C9113) IV SCH (09:17)
[2018-08-03] MEDS: BISOPROLOL FUM 2.5 MG PER 1/2TAB GT SCH ×2 (09:32→21:44)
[2018-08-03] MEDS ORDERED: SLF 3 ML SYR IV PRN (10:30)
[2018-08-03] MEDS: SODIUM BICARBONATE 150 MEQ in D5W 1,000 ML IV SCH (10:51)
[2018-08-03] MEDS ORDERED: CALCIUM CHLORIDE 10% 1 GM in D5W 100 ML IV ONE (11:00)
--- NOTE | 2018-08-03 11:00 | CCN ---
DATE: 08/03/2018 START TIME: 924 STOP TIME: 1013 I attended Dae Shipman here in the intensive care unit. The patient has been examined and the chart reviewed. I have spoken at length with his fiancee at the bedside. He remains intubated and mechanically ventilated. He has not required any sedation after his cardiac arrest yesterday. He remains on Levophed at 60 mL/hr, mildly down from 67 mL/hr. He remains on Vasopressin as well, as well as, a bicarbonate drip. T-max overnight 101.5. Blood pressure 90 to the 120s. Heart rate generally 100 and fully paced. Respiratory rate remains in the 30s and he does over breathe the ventilator. Ins and outs midnight to midnight 3138 mL in with 175 mL out. The most recent laboratories show a white blood cell count of 14.7, hemoglobin 10.4 and platelet count 207,000. Sodium 135, potassium 4.4, chloride 91, CO2 19, BUN 94, creatinine 6.18, calcium 5.6. Lactic acid did come down from 14.4 to 12.7 after his cardiac arrest. Assist control mode, rate of 30, tidal volume 450, PEEP of 8 and FiO2 of 60% has a pH of 7.417, pCO2 30.3, and pO2 of 70.7. Sputum from the grew Strep agalactiae Group B and he is on Zosyn. He remains on ulcer and deep vein thrombosis (DVT) prophylaxis. Chest x-ray shows lines and tubes in good position. Question of left basilar atelectasis versus infiltrate. On exam, he has roving eye movements. Pupils do work. He does over breathe the vent. He does not respond to noxious stimuli. Trachea is in the midline. Lungs do show some fine crackles dependently. Rare rhonchus. No rubs. Cardiac exam shows his AICD/pacer in place. Rhythm is regular. Peripheral pulses are markedly diminished. There is trace edema. Abdomen is not significantly distended, but is quiet. No obvious organomegaly or masses. Extremities show no cyanosis or clubbing. Neurologically as outlined above. The most pressing problems requiring my immediate presence at the bedside are: 1. Metabolic acidosis. 2. Respiratory failure requiring mechanical ventilatory support. 3. Coronary artery disease status post cardiac arrest. 4. Non ST-elevation myocardial infarction. 5. Congestive heart failure. 6. AICD/pacer. 7. Insulin dependent diabetes mellitus. 8. Atherosclerotic peripheral vascular disease with history of stoke, 9. Renal failure, progressive. At this point, he is a DO NOT RESUSCITATE (DNR) at the request of the family and I think this is quite appropriate. He has worsening of his renal function and given the fact that he remains hypotensive requiring very significant doses of two vasopressors, he would not tolerate formal dialysis or chronic renal replacement therapy. His fiancee voices understanding. At this point, we will continue our current level of supportive care. If he shows marked improvement in his mental status, then certainly we can reassess that. For now, we will continue ulcer and DVT prophylaxis as well as his empiric antimicrobials. Would consider enteral feeds in the next 24 to 48 hours depending upon his status. In view of the above however his prognosis remains grim regarding meaningful recovery, but we will proceed as outlined above. I left the bedside at 1014 hours. 49 minutes of critical care time delivered at the bedside, not including procedures.
[2018-08-03] MEDS: ACETAMINOPHEN 325 MG/10.15 ML UDC GT PRN (11:56)
[2018-08-03] MEDS ORDERED: HEPARIN 1,000 UNITS/ML 10ML VIAL (FOR RADIOLOGY& DIALYSIS ONLY) IV PRN (12:30)
[2018-08-03] MEDS ORDERED: SODIUM CHLORIDE 0.9% INJ 10 ML SYR IV PRN (12:30)
--- NOTE | 2018-08-03 13:01 | RO ---
DATE OF PROCEDURE: 08/03/2018 PREOPERATIVE DIAGNOSIS: Renal failure. POSTOPERATIVE DIAGNOSIS: Renal failure. PROCEDURE: Insertion of dialysis catheter, right femoral vein. SURGEON: Triston Castaneda MD CHASSIS INSPECTOR: ANESTHESIA: Verbal consent was obtained from the family prior to the procedure. A time out was performed. After the patient was identified, the patient right femoral area was prepped and draped in the usual sterile manner. Using a large bore needle, the right femoral vein was easily cannulated. In a modified Seldinger technique, an 8 inch dialysis catheter was easily placed. Good venous return was obtained from both ports. Each port was then flushed with saline. The line was then sutured in place with sterile dressing applied. Standard heparin was then placed in each catheter per protocol. No complications noted. The patient tolerated the procedure well.
[2018-08-03] MEDS: SLF 3 ML SYR IV SCH ×2 (14:00→22:00)
[2018-08-03] MEDS: SODIUM CHLORIDE 0.9% INJ 10 ML SYR IV SCH ×2 (14:00→22:00)
[2018-08-03 14:10] LABS: INR 2.43; PROTHROMBIN TIME 26.9 SECONDS (12.1-14.4)
[2018-08-03 14:11] LABS: PARTIAL THROMBOPLASTIN TIME 42.4 SECONDS (25.4-37.6)
[2018-08-03 14:29] LABS: IONIZED CALCIUM 2.7 MG/DL (4.5-5.3)
[2018-08-03 15:32] LABS: MAGNESIUM LEVEL 3.3 MG/DL (1.8-2.4); PHOSPHORUS LEVEL 10.6 MG/DL (2.5-4.9)
[2018-08-03] MEDS ORDERED: CALCIUM GLUCONATE 1,000 MG in D5W MINI-BAG PLUS 100 ML IV SCH (16:00)
[2018-08-03] MEDS ORDERED: CALCIUM GLUCONATE 1,000MG/10ML VIAL (100MG/ML) (J0610) As Ordered ONE (16:06)
[2018-08-03] MEDS: CALCIUM GLUCONATE 1,000 MG in D5W MINI-BAG PLUS 100 ML IV SCH ×2 (16:14→17:18)
[2018-08-03 20:52] LABS: CALCIUM LEVEL 5.8 MG/DL (8.5-10.1); CREATININE FOR GFR 5.81 MG/DL (0.70-1.30); GLOMERULAR FILTRATION RATE 11.1 (>60); MAGNESIUM LEVEL 3.4 MG/DL (1.8-2.4); PHOSPHORUS LEVEL 8.6 MG/DL (2.5-4.9); POTASSIUM SERUM 4.4 MEQ/L (3.5-5.1)
[2018-08-03] MEDS ORDERED: CALCIUM GLUCONATE 1,000 MG in D5W MINI-BAG PLUS 100 ML IV ONE ×2 (22:00→23:00)
[2018-08-04] VITALS (26 sets, daily range): BP systolic 88–138; BP diastolic 44–89; O2SAT 96
[2018-08-04] MEDS: PIPERACILLIN/TAZOBACTAM SOD 3.375 GM in D5W MINI-BAG PLUS 50 ML IV SCH ×4 (00:16→18:31)
[2018-08-04] MEDS: MIDAZOLAM INJ 2 MG/2 ML VIAL (J2250) IV PRN ×4 (00:16→22:25)
--- NOTE | 2018-08-04 00:26 | CR ---
DATE OF CONSULTATION: 08/03/2018 REQUESTING PHYSICIAN: Dr. Makenzie Bradford CONSULTING PHYSICIAN: Dr. Abdalla REASON FOR CONSULTATION: Acute renal failure, metabolic acidosis and status post cardiac arrest. CHIEF COMPLAINT: The patient presented to the hospital on 07/31/2018 with respiratory distress. Note, history was obtained from the medical team and from patient's chart. The patient himself was unable to provide any history because he is intubated. Some of the history was obtained from his fiancee at the bedside. HISTORY OF THE PRESENT ILLNESS: Dae Shipman is a 47-year-old male with a significant past medical history of coronary artery disease, status post coronary artery bypass graft (CABG), and multiple stents in the past, history of congestive heart failure with reduced ejection fraction, status post biventricular automatic implantable cardioverter defibrillator (AICD), insulin-dependent diabetic. He woke up on with severe shortness of breath, and he called emergency medical services (EMS). In the emergency room (ER), the patient was found to be in respiratory distress, pale and diaphoretic and tachypneic. He was given aspirin and nitroglycerin, and metoprolol in the emergency room. He was intubated in the emergency room, started on sedation, and after the intubation, his blood pressure dropped. His nitroglycerin was stopped. In the intensive care unit (ICU), the patient had a cardiac arrest on 08/02/2018. Cardiopulmonary resuscitation was done and during the cardiopulmonary resuscitation, his AICD shocked him 3-4 times. After the cardiac arrest, he did not regain consciousness. No hypothermia protocol was initiated and nephrology service was called for further help in the management of this patient with acute renal failure, oliguria, acidosis after the cardiac arrest. The patient was started on pressors. I saw and evaluated the patient today, morning, at the bedside. His fiancee was present at the bedside as well. He is currently on Levophed at 16 mcg and vasopressin at 0.04 units. He is intubated, not sedated, opening his eyes. He continues to be oliguric. He is currently on bicarbonate drip. The pH on the ABG today is 7.4. PAST MEDICAL HISTORY: Extensive medical history of coronary artery disease, status post stents and coronary artery bypass grafting. History of congestive heart failure, reduced ejection fraction. Diabetes mellitus type 2, insulin-dependent. Diabetic peripheral neuropathy. Chronic obstructive pulmonary disease (COPD). Gastroesophageal reflux disease. Hypertension. BPH. History of CVA. 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 Degenerative joint disease. PAST SURGICAL HISTORY: History of coronary artery bypass grafting. History of left wrist surgery. Partial sternal removal in 2010. History of biventricular AICD placement in 2016. History of vasectomy. ALLERGIES: No known drug allergies. FAMILY HISTORY: The patient does not have any history of renal disease in the family. SOCIAL HISTORY: The patient is living with his jovana but his daughter, Lacy, is the healthcare proxy, and she makes decisions. Her cell phone number is [phone]. He is an active smoker. He drinks alcohol. REVIEW OF SYSTEMS: I was unable to do any review of systems because the patient is intubated. PHYSICAL EXAMINATION: GENERAL: The patient is intubated, not sedated. VITAL SIGNS: Temperature is 101.3 degrees Fahrenheit, blood pressure 85/42, pulse is 107, respiratory rate of 34, saturating 91% on the vent with 80% FiO2. HEAD AND NECK EXAM: Patient opens eyes to painful stimuli. Pupils are equally round and reactive to light. Mucous membranes are moist. The patient has an orogastric tube (OGT) and an endotracheal tube. CARDIOVASCULAR: S1, S2, tachycardia. No edema of the bilateral lower extremities. RESPIRATORY: Transmitted breath sounds bilaterally from the vent, otherwise no active rales or rhonchi. ABDOMEN: Soft. Positive bowel sounds. No organomegaly was noted. GENITOURINARY: The patient has an indwelling Sahni catheter, minimal amount of urine in the Sahni was noted. MUSCULOSKELETAL: No clubbing or cyanosis. No edema of the extremities. CENTRAL NERVOUS SYSTEM: The patient moves extremities and opens eyes on painful stimuli. He is not sedated at this point. SKIN: No rashes or ulcers. LAB REVIEW: CBC showed a WBC of 14.7, hemoglobin 10.4, platelets are 207. His white cell count on admission was 22.9. INR is 2.4. ABG done today, morning, showed a pH of 7.4, pCO2 of 30, pO2 of 70, bicarbonate is 19, O2 saturation is 91%. BMP showed sodium 135, potassium 4.4, chloride 91, bicarbonate 19, BUN 94, creatinine is 6.1, glucose 384, lactic acid 12.7, ionized calcium 2.7, phosphorus 10.6, magnesium is 3.3. Microbiology: Sputum culture is growing Streptococcus agalactiae Group B. IMAGING: CT angio of the chest was done; it showed no evidence of pulmonary embolism and differential diagnosis included multifocal pneumonia and pulmonary edema. CURRENT INPATIENT MEDICATIONS: Patient's medications included Levophed at 16 mcg, vasopressin at 0.04 units. He is on Zosyn 3.375 grams every 6 hours, bicarbonate drip of 100 mL an hour, amiodarone 400 mg via the OG tube every 8 hours, bisoprolol 2.5 mg every 12 hours, Plavix 75 mg daily, Protonix 40 mg IV daily, rosuvastatin 20 mg daily. ASSESSMENT: A 47-year-old male with an extensive history of coronary artery disease, admitted at this time with septic shock secondary to multifocal pneumonia, non-ST elevation myocardial infarction (SC), cardiac arrest, vent dependent respiratory failure, acute renal failure, and metabolic acidosis. PLAN: 1. Acute renal failure. It is secondary to septic shock and cardiac arrest, and hypotension. The patient is oliguric at this point. I discussed patient's current status with his family members, including his fiancee who is living with him and his daughter, who is the healthcare proxy, and they decided to continue with the aggressive care. They want to go ahead with the continuous renal replacement therapy. I have requested the pulmonary critical care team to get the dialysis catheter placement. I have ordered the continuous veno-venous hemodiafiltration (CVVHDF). I would start the CVVHDF today with no fluid removal at this point. 2. Metabolic acidosis. It is secondary to acute renal failure, septic shock, and lactic acidosis. The patient has high anion gap metabolic acidosis. Acidosis will be managed with the CVVHDF now. As soon as CVVHDF starts, IV bicarbonate drip will be stopped. 3. Lactic acidosis. It is secondary to cardiac arrest and septic shock. Lactic acidosis is slowly expected to improve with improvement in the hemodynamic status. Continue current aggressive management with pressors and fluids. 4. Septic shock with multifocal pneumonia. The patient is currently on Levophed and vasopressin. Systolic blood pressures in 90s. He is currently on Zosyn and vancomycin. The rest of the management is as per critical care team. He is currently dependent on the vent. He is not sedated at this point. 5. Non-ST elevation myocardial infarction. The patient was on a heparin drip, which is on hold at this point. He continues to be on low dose of bisoprolol. He is also on amiodarone status post cardiac arrest. stop Rosuvastatin because of shock liver. The rest of the management is as per cardiology recommendations. 6. Hypocalcemia. Calcium is being repleted according to CVVHDF protocol. 7. Shock liver. It is secondary to cardiac arrest and hypotension. The patient has elevated AST and ALT. I would hold the statin at this point and wait for liver function to improve before resuming the statin. Continue to monitor the complete metabolic panel once a day. 8. Ischemic cardiomyopathy. The patient has dilated left ventricle on the recent echocardiogram with an LVEF of hardly 15-20% and now he is status post cardiac arrest, currently requiring pressors. Given patient's extensive cardiac history, NSTEMI, low ejection fraction (EF), recent cardiac arrest, septic shock, and multiorgan failure, overall he has a poor prognosis. However, the patient's family members want to continue the aggressive management. Thank you for involving me in the care of this patient. I shall be happy to follow the patient along with you tomorrow morning. Plan of care was discussed with the pulmonary critical care team. Total critical care time spent in the management of this patient in the ICU today was 1 hours; that does not include any procedure. TYRONED
[2018-08-04] MEDS: HumaLOG INSULIN (NovoLOG) PER UNIT SC SCH ×4 (02:14→18:30)
[2018-08-04 02:23] LABS: HEMATOCRIT 32.5 % (42.0-52.0); HEMOGLOBIN 11.2 g/dl (13.5-17.5); MEAN CORPUSCULAR HEMOGLOBIN 30.2 pg (27.0-33.0); MEAN CORPUSCULAR HGB CONC 34.5 g/dl (32.0-36.5); MEAN CORPUSCULAR VOLUME 87.6 fl (80.0-96.0); PLATELET COUNT, AUTOMATED 198 10^3/uL (150-450); RED BLOOD COUNT 3.71 10^6/uL (4.30-6.10); WHITE BLOOD COUNT 17.4 10^3/uL (4.0-10.0)
[2018-08-04 02:24] LABS: IONIZED CALCIUM 3.2 MG/DL (4.5-5.3)
[2018-08-04 03:14] LABS: CALCIUM LEVEL 5.6 MG/DL (8.5-10.1); CREATININE FOR GFR 5.13 MG/DL (0.70-1.30); GLOMERULAR FILTRATION RATE 12.8 (>60); MAGNESIUM LEVEL 2.9 MG/DL (1.8-2.4); POTASSIUM SERUM 4.6 MEQ/L (3.5-5.1)
[2018-08-04] MEDS ORDERED: CALCIUM GLUCONATE 1,000 MG in D5W MINI-BAG PLUS 100 ML IV ONE ×2 (04:15→05:15)
[2018-08-04] MEDS: VASOPRESSIN INJ 20 UNITS in NS 499 ML IV SCH ×3 (04:48→19:42)
[2018-08-04] MEDS: NOREPINEPHRINE BITARTRATE 8 MG in D5W 492 ML IV SCH ×5 (04:48→19:42)
[2018-08-04] MEDS: SODIUM CHLORIDE 0.9% INJ 10 ML SYR IV SCH ×3 (06:00→22:28)
[2018-08-04 06:14] LABS: ABG BASE EXCESS -7.9 (-2.0-2.0); ABG HCO3 15.2 MEQ/L (22.0-26.0); ABG O2 SATURATION 97.5 % (95.0-99.0); ABG PARTIAL PRESSURE CO2 24.7 mmHg (35.0-45.0); ABG PARTIAL PRESSURE O2 106.5 mmHg (75.0-100.0); ABG STANDARD HCO3 18.1 MEQ/L (22.0-26.0); ABG pH (ARTERIAL) 7.407 UNITS (7.350-7.450)
[2018-08-04 06:27] LABS: MEAN CORPUSCULAR HEMOGLOBIN 30.1 pg (27.0-33.0); MEAN CORPUSCULAR HGB CONC 34.4 g/dl (32.0-36.5); MEAN CORPUSCULAR VOLUME 87.4 fl (80.0-96.0); PLATELET COUNT, AUTOMATED 194 10^3/uL (150-450); RED BLOOD COUNT 3.66 10^6/uL (4.30-6.10)
[2018-08-04] MEDS: SLF 3 ML SYR IV SCH ×3 (06:27→22:00)
[2018-08-04] MEDS: AMIODARONE 200 MG TAB (PACERONE) GT SCH ×3 (06:27→21:59)
[2018-08-04 06:57] LABS: CALCIUM LEVEL 6.1 MG/DL (8.5-10.1); CREATININE FOR GFR 4.63 MG/DL (0.70-1.30); GLOMERULAR FILTRATION RATE 14.4 (>60); POTASSIUM SERUM 4.7 MEQ/L (3.5-5.1)
--- NOTE | 2018-08-04 08:04 | REP ---
Clinical: Intubation. Comparison: 08/03/2018. Findings: Endotracheal tube 3 cm above the nishant. Nasogastric tube courses below left hemidiaphragm. At IJ line with tip in the SVC. Cardiac silhouette is stable. Evaluation is limited due to poor inspiratory effort. Bibasilar opacities suggest elements of atelectasis/infiltrate and possible small left effusion which may be slightly increased on the right side as compared to prior exam. No pneumothorax. Impression: 1. Lines and tubes in stable position. 2. Bibasilar opacities suggesting atelectasis and possible small left effusion. Electronically Signed by Shakeel Ramírez MD 08/04/2018 07:55 A
[2018-08-04 08:09] LABS: IONIZED CALCIUM 3.4 MG/DL (4.5-5.3)
[2018-08-04] MEDS: ALBUTEROL SULFATE 2.5 MG/0.5 ML INH NEB SOLN NEB SCH ×4 (08:34→20:11)
[2018-08-04] MEDS: PROPOFOL 1,000 MG in APPROPRIATE DILUENT 1 EA IV SCH ×2 (08:40→14:23)
[2018-08-04 08:41] LABS: CALCIUM LEVEL 6.1 MG/DL (8.5-10.1); CREATININE FOR GFR 4.49 MG/DL (0.70-1.30); GLOMERULAR FILTRATION RATE 14.9 (>60); MAGNESIUM LEVEL 2.7 MG/DL (1.8-2.4); PHOSPHORUS LEVEL 6.1 MG/DL (2.5-4.9); POTASSIUM SERUM 4.6 MEQ/L (3.5-5.1)
[2018-08-04] MEDS: CHLORHEXIDINE GLUCONATE 0.12 % 15ML UDC (PERIDEX ORAL RINSE) MT SCH ×2 (09:13→21:58)
[2018-08-04] MEDS: BISOPROLOL FUM 2.5 MG PER 1/2TAB GT SCH ×2 (09:14→21:59)
[2018-08-04] MEDS: CLOPIDOGREL 75 MG TAB PO SCH (09:14)
[2018-08-04] MEDS: CALCIUM GLUCONATE 1,000 MG in D5W MINI-BAG PLUS 100 ML IV SCH ×4 (09:14→16:00)
[2018-08-04] MEDS: PANTOPRAZOLE 40MG INJ (PROTONIX) (C9113) IV SCH (09:14)
[2018-08-04] MEDS: ASPIRIN 81 MG CHEW TABLET NG SCH ×2 (09:14→21:58)
--- NOTE | 2018-08-04 10:58 | CCN ---
DATE: 08/04/2018 START TIME: 0831 hours STOP TIME: 0915 hours I again attended Dae Shipman here in the intensive care unit (ICU). The patient has been examined and chart reviewed. He has required intermittent sedatives and pain medications. This morning he does open his eyes and does appear to nod appropriately to questioning. He remains on max dose of two vasopressors, however, both Vasopressin and Levophed, Levophed as high as 30 mcg through the night and now down to 18 mcg. He remains on CRRT. Maximum temperature (t-max) overnight 97, blood pressure 88 to 120, heart rate generally in the 70s and fully paced. He remains with a respiratory rate in the low 30s and does overbreathe the ventilator. He has not made much in the way of urine. LABORATORIES: Sodium 133, potassium 4.6, chloride 98, CO12 of 17, BUN 69, creatinine 4.49, and that is on CRRT. Ionized calcium 3.4, White blood cell count is 17.0, hemoglobin 11.0, platelet count 194,000. Blood gas done on assist control, rate of 30, tidal volume 450, PEEP of 8 and FiO2 of 50% has a pH of 7.407, PCO2 of 24.7, and PO2 of 106.5. Chest x-ray shows no real change in his bibasilar infiltrates/edema. Lines and tubes are in good position. He remains on ulcer and Deep vein thrombosis (DVT) prophylaxis, as well as Zosyn. PHYSICAL EXAMINATION: He does open his eyes to voice and does appear to nod appropriately to questioning. Pupils do react. Sclerae clear. Trachea is in the midline. Chest exam shows a well healed median sternotomy scar. Expansion, although diminished, is symmetric. There is some occasional rhonchi. There are some independent crackles. No rubs or wheezes. Cardiac exam is distant, regular. Peripheral pulses are markedly diminished. His skin has what appears to be maybe early mottling and there is significant duskiness to the tips of several toes, especially the great toes on both feet. He requires Dopplers to obtain pulses. Abdomen shows some faint bowel sounds, nontender. No clubbing. Neurologically, as outlined above. The most pressing problems requiring my presence at the bedside are: 1. Respiratory failure requiring mechanical ventilatory support. 2. Renal failure. 3. Non ST elevation myocardial infarction with underlying coronary artery disease. 4. Atherosclerotic cerebrovascular disease. 5. Diabetes mellitus, insulin requiring. 6. Tobacco abuse, ongoing at the time of admission. 7. Question of toxic metabolic encephalopathy. At this point, he has shown some improvement in his mental status and we will continue with our current level of support. Electrolytes are being managed with CRRT via nephrology. No ventilatory weaning will be made today in view of the above. I will begin enteral feeds, however. We will continue to cover sugars. He gets sedation and pain medication as needed. I await further input from cardiology and decision whether or not to transfer him for interventional cardiology was dependent upon his mental status. I will update the family at the bedside when they are available. At this point, he does remain critically ill. In view of his multisystem dysfunction, his prognosis certainly does remain still guarded, at best, and there is still high likelihood that he may not survive this event. I left the bedside at 0915 hours. 44 minutes of critical care time was delivered at the bedside, not including procedures.
[2018-08-04 14:16] LABS: HEMATOCRIT 30.5 % (42.0-52.0); HEMOGLOBIN 10.5 g/dl (13.5-17.5); MEAN CORPUSCULAR HGB CONC 34.4 g/dl (32.0-36.5); MEAN CORPUSCULAR VOLUME 87.1 fl (80.0-96.0); PLATELET COUNT, AUTOMATED 197 10^3/uL (150-450); WHITE BLOOD COUNT 16.5 10^3/uL (4.0-10.0)
[2018-08-04 14:20] LABS: IONIZED CALCIUM 3.5 MG/DL (4.5-5.3)
[2018-08-04 14:45] LABS: MAGNESIUM LEVEL 2.7 MG/DL (1.8-2.4); PHOSPHORUS LEVEL 5.2 MG/DL (2.5-4.9)
[2018-08-04 15:15] LABS: ALBUMIN 1.9 GM/DL (3.2-5.2); BILIRUBIN,TOTAL 4.3 MG/DL (0.2-1.0); CREATININE FOR GFR 4.04 MG/DL (0.70-1.30); GLOMERULAR FILTRATION RATE 16.9 (>60); POTASSIUM SERUM 4.9 MEQ/L (3.5-5.1); TOTAL PROTEIN 4.2 GM/DL (6.4-8.2)
[2018-08-04 17:49] LABS: ABG HCO3 19.5 MEQ/L (22.0-26.0); ABG O2 SATURATION 94.2 % (95.0-99.0); ABG PARTIAL PRESSURE CO2 30.6 mmHg (35.0-45.0); ABG PARTIAL PRESSURE O2 76.3 mmHg (75.0-100.0); ABG TOTAL CO2 20.4 MEQ/L (22.0-29.0); ABG pH (ARTERIAL) 7.422 UNITS (7.350-7.450)
[2018-08-04] MEDS: fentaNYL 100 MCG/2 ML INJECTION (J3010) IV PRN (18:31)
[2018-08-04 19:56] LABS: IONIZED CALCIUM 3.6 MG/DL (4.5-5.3)
[2018-08-04 20:37] LABS: CALCIUM LEVEL 6.3 MG/DL (8.5-10.1); CREATININE FOR GFR 3.87 MG/DL (0.70-1.30); GLOMERULAR FILTRATION RATE 17.7 (>60); MAGNESIUM LEVEL 2.5 MG/DL (1.8-2.4); PHOSPHORUS LEVEL 4.8 MG/DL (2.5-4.9)
--- NOTE | 2018-08-04 21:29 | IPN ---
DATE: 08/04/2018 CARDIOLOGY PROGRESS NOTE SUBJECTIVE: According to family members, the patient has been able to respond to their presence, making spontaneous head movements and eye contact and squeezing their hands. From their standpoint, he appears to be comfortable, currently intubated now on a mechanical ventilator. OBJECTIVE: Middle-aged male of medium body build, currently lying in the bed in the intensive care unit (ICU), intubated, on mechanical ventilator, and on high-dose combination vasopressor therapy as well as continuous ultrafiltration/dialysis. Level of awareness as mentioned above. Heart rate 84 beats per minute (BPM) and regular, blood pressure 106/64, respiratory rate 30 per minute, oxygen saturation 96% on 50% oxygen and current ventilator settings. Neck veins appear to be 1-2 cm above the sternal angle. Normal chest configuration with a well-healed sternotomy incision and implantable cardioverter defibrillator (ICD) incision, left subclavian region. Adequate air entry bilaterally with no audible abnormal adventitious sounds. Apical impulse not palpable. Heart sounds distant. No dependent edema. Diminished pedal pulses. 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 Rightward axis and LEV QRS configuration in keeping with biventricular stimulation. Chest x-ray today shows heart size upper limits of normal, even allowing for this technique. Greater vessels were normal. Pulmonary vasculature did not appear to be congested. His biventricular ICD leads appeared to be in stable appropriate position. Has ongoing bibasilar opacities, question atelectasis versus infiltrate. No pneumothorax. Endotracheal tube (ET and nasogastric (NG) tubes as well as central venous line in position. Blood work: Blood work today shows a hemoglobin of 11, white blood cell count stable at 17,normal platelet count. Arterial blood gas this morning shows a pH of 7.4, pCO2 of 25, pO2 of 107 on his current ventilator settings and 50% oxygen. His current PTT is 48. Blood work this morning shows ongoing metabolic acidosis and renal insufficiency. BUN 69, creatinine 4.49, unchanged from earlier the same day, serum phosphorus 6.1, magnesium level 2.7, glucose 207. IMPRESSION/PLAN :1. Cardiogenic shock: Remains on high-dose Levophed and vasopressin for blood pressure support. On continuous renal filtration. Some meaningful neurological activity. At this point, his prognosis is dismal, and he is certainly not a candidate for any invasive cardiology intervention. I am not optimistic he will ever be able to be weaned off his pressor therapy. He is presently DO NOT RESUSCITATE, and his implantable cardioverter defibrillator (ICD) tachycardia therapies have been inactivated. 2. Ventricular fibrillation: Event that occurred while in hospital and believed to be a secondary phenomenon related to his dismal left ventricular function and end-stage congestive heart failure. Currently receiving loading dose therapy of amiodarone 400 mg every 8 hours since August 02 at 10:00 p.m. No further potentially malignant ventricular arrhythmias. A complete medical profile is pending at this time. 3. Coronary artery disease (lytton vessel)/post coronary artery bypass graft (CABG)/post multiple coronary interventions percutaneous/acute non-Q-wave myocardial infarction: At the time of his presentation, his family claims he was reporting chest tightness in addition to his acute respiratory distress. Serial cardiac enzymes show a peak value of 15, in keeping with an acute myocardial injury contributing to his acute decompensation. At this point, he is not a candidate for more than his present very low-dose bisoprolol and Plavix, aspirin, and low-dose IV heparin. As discussed with the patient's family, he is not a candidate for any acute coronary intervention at this time and is unlikely to ever be. We will continue to follow him and adjust his amiodarone dosage but feel he will not survive this admission. KENDELL
[2018-08-04] MEDS ORDERED: CALCIUM GLUCONATE 1,000 MG in NS 100 ML IV SCH (21:30)
[2018-08-04] MEDS ORDERED: PILL CRUSHER/CUTTER 1 EACH XX PRN (21:45)
[2018-08-04] MEDS: CALCIUM GLUCONATE 1,000 MG in NS 100 ML IV SCH ×2 (22:28→23:35)
[2018-08-05] VITALS (33 sets, daily range): BP systolic 80–161; BP diastolic 41–61
[2018-08-05] MEDS: HumaLOG INSULIN (NovoLOG) PER UNIT SC SCH ×5 (00:39→23:42)
[2018-08-05] MEDS: CALCIUM GLUCONATE 1,000 MG in NS 100 ML IV SCH ×5 (00:39→10:15)
[2018-08-05] MEDS: fentaNYL 100 MCG/2 ML INJECTION (J3010) IV PRN ×5 (00:41→22:11)
[2018-08-05] MEDS: SODIUM CHLORIDE 0.9% INJ 10 ML SYR IV PRN (00:52)
[2018-08-05] MEDS: MIDAZOLAM INJ 2 MG/2 ML VIAL (J2250) IV PRN ×9 (00:58→20:52)
[2018-08-05] MEDS: PIPERACILLIN/TAZOBACTAM SOD 3.375 GM in D5W MINI-BAG PLUS 50 ML IV SCH ×4 (01:38→18:01)
[2018-08-05 02:28] LABS: HEMATOCRIT 29.8 % (42.0-52.0); HEMOGLOBIN 9.9 g/dl (13.5-17.5); MEAN CORPUSCULAR HEMOGLOBIN 29.3 pg (27.0-33.0); MEAN CORPUSCULAR HGB CONC 33.2 g/dl (32.0-36.5); MEAN CORPUSCULAR VOLUME 88.2 fl (80.0-96.0); PLATELET COUNT, AUTOMATED 170 10^3/uL (150-450); RED BLOOD COUNT 3.38 10^6/uL (4.30-6.10); WHITE BLOOD COUNT 14.1 10^3/uL (4.0-10.0)
[2018-08-05 02:58] LABS: CREATININE FOR GFR 3.66 MG/DL (0.70-1.30); GLOMERULAR FILTRATION RATE 18.9 (>60); MAGNESIUM LEVEL 2.6 MG/DL (1.8-2.4); PHOSPHORUS LEVEL 5.1 MG/DL (2.5-4.9); POTASSIUM SERUM 5.7 MEQ/L (3.5-5.1)
[2018-08-05] MEDS ORDERED: VASOPRESSIN INJ 20 UNITS/ML VIAL As Ordered ONE (03:23)
[2018-08-05] MEDS: VASOPRESSIN INJ 20 UNITS in NS 499 ML IV SCH ×3 (03:30→19:00)
[2018-08-05] MEDS: NOREPINEPHRINE BITARTRATE 16 MG in D5W 484 ML IV SCH ×11 (03:37→19:00)
[2018-08-05] MEDS ORDERED: HEPARIN 1,000 UNITS/ML 10ML VIAL (FOR RADIOLOGY& DIALYSIS ONLY) IV PRN (04:00)
[2018-08-05] MEDS ORDERED: SODIUM CHLORIDE 0.9% INJ 10 ML SYR IV PRN (04:00)
[2018-08-05] MEDS ORDERED: MIDAZOLAM INJ 2 MG/2 ML VIAL (J2250) As Ordered ONE (04:58)
[2018-08-05] MEDS: SLF 3 ML SYR IV SCH ×3 (06:00→21:10)
[2018-08-05 06:04] LABS: ABG BASE EXCESS -3.3 (-2.0-2.0); ABG HCO3 20.3 MEQ/L (22.0-26.0); ABG O2 SATURATION 97.3 % (95.0-99.0); ABG PARTIAL PRESSURE CO2 31.7 mmHg (35.0-45.0); ABG PARTIAL PRESSURE O2 101.1 mmHg (75.0-100.0); ABG STANDARD HCO3 21.7 MEQ/L (22.0-26.0); ABG TOTAL CO2 21.3 MEQ/L (22.0-29.0); ABG pH (ARTERIAL) 7.425 UNITS (7.350-7.450)
[2018-08-05 06:16] LABS: HEMATOCRIT 29.2 % (42.0-52.0); HEMOGLOBIN 9.8 g/dl (13.5-17.5); MEAN CORPUSCULAR HEMOGLOBIN 29.7 pg (27.0-33.0); MEAN CORPUSCULAR HGB CONC 33.6 g/dl (32.0-36.5); MEAN CORPUSCULAR VOLUME 88.5 fl (80.0-96.0); PLATELET COUNT, AUTOMATED 174 10^3/uL (150-450); WHITE BLOOD COUNT 13.4 10^3/uL (4.0-10.0)
[2018-08-05 06:36] LABS: CALCIUM LEVEL 7.8 MG/DL (8.5-10.1); CREATININE FOR GFR 3.46 MG/DL (0.70-1.30); GLOMERULAR FILTRATION RATE 20.2 (>60)
[2018-08-05] MEDS: AMIODARONE 200 MG TAB (PACERONE) GT SCH ×3 (06:42→21:10)
[2018-08-05] MEDS: SODIUM CHLORIDE 0.9% INJ 10 ML SYR IV SCH ×3 (06:43→21:10)
[2018-08-05 08:40] LABS: IONIZED CALCIUM 4.1 MG/DL (4.5-5.3)
[2018-08-05] MEDS: PROPOFOL 1,000 MG in APPROPRIATE DILUENT 1 EA IV SCH (08:44)
--- NOTE | 2018-08-05 08:44 | REP ---
Intubation. Comparison: 08/04/2018. Findings: Endotracheal tube 3 cm above the nishant. Nasogastric tube courses below left hemidiaphragm. Right IJ line with the tip in the SVC. Mediastinum and cardiac silhouette stable and within normal limits. Bibasilar infiltrates suggesting elements of atelectasis and/or pneumonia with small pleural effusions are identified, but appears somewhat improved when compared to prior examination. No pneumothorax. Skeletal structures stable. Impression: 1. Lines and tubes in satisfactory position. 2. Continued bibasilar atelectasis/infiltrates and possible small pleural effusions appear slightly improved. 3. There is suggestion for a right PICC line which cannot be identified past the axillary vein and requires confirmation. Electronically Signed by Shakeel Ramírez MD 08/05/2018 08:36 A
[2018-08-05] MEDS: ALBUTEROL SULFATE 2.5 MG/0.5 ML INH NEB SOLN NEB SCH ×3 (08:51→19:49)
[2018-08-05] MEDS: CLOPIDOGREL 75 MG TAB PO SCH (08:56)
[2018-08-05] MEDS: ASPIRIN 81 MG CHEW TABLET NG SCH ×2 (08:56→20:52)
[2018-08-05] MEDS: levETIRAcetam INJection 500 MG in D5W MINI-BAG PLUS 100 ML IV SCH ×2 (08:57→20:52)
[2018-08-05] MEDS: PANTOPRAZOLE 40MG INJ (PROTONIX) (C9113) IV SCH (08:57)
[2018-08-05] MEDS: BISOPROLOL FUM 2.5 MG PER 1/2TAB GT SCH ×2 (08:57→20:53)
[2018-08-05 10:05] LABS: CALCIUM LEVEL 7.5 MG/DL (8.5-10.1); CREATININE FOR GFR 3.36 MG/DL (0.70-1.30); GLOMERULAR FILTRATION RATE 20.9 (>60); MAGNESIUM LEVEL 2.7 MG/DL (1.8-2.4); PHOSPHORUS LEVEL 4.8 MG/DL (2.5-4.9); POTASSIUM SERUM 4.8 MEQ/L (3.5-5.1)
[2018-08-05] MEDS: CHLORHEXIDINE GLUCONATE 0.12 % 15ML UDC (PERIDEX ORAL RINSE) MT SCH ×2 (10:16→20:53)
--- NOTE | 2018-08-05 11:36 | CCN ---
DATE: 08/05/2018 START TIME: 0810 hours STOP TIME: 0844 hours I again attended Dae Shipman here in the intensive care unit (ICU). The patient has been examined and chart reviewed. He has required some intermittent Versed, mainly on the basis of localized seizure versus myoclonic activity noted by the nursing staff mainly evidenced by twitching of the eyes with rolling the shoulders bilaterally. He is clearly with no significant meaningful response to stimuli. Maximum temperature (t-max) overnight 99, blood pressure 93 to 160. He remains on Levophed at 8 mcg and Vasopressin of 0.04 mcg per minute. Heart rate generally in the 70s with a paced rhythm, occasionally does have his own beats. Respiratory rate generally in the 30s. He remains on CRRT. Input and output midnight to midnight are 4265 in with 3423 mL out. Other laboratories show a white blood cell count 15.4, hemoglobin 9.8, [place] [address]. Sodium 132, potassium 5.0, chloride 101, CO2 20, BUN 55, creatinine 2.46. Blood gas done on assist control, rate of 30, tidal volume 450, PEEP of 8 and FiO2 of 50% has a pH of 7.425, PCO2 of 31.7, PO2 of 101.1. Chest x-ray shows no significant change compared to yesterday. No new culture data available. Sputum grew Streptococcus agalactiae on the , sensitive to Zosyn. PHYSICAL EXAMINATION: Pupils are generally small with ongoing roving eye movements. Membranes are moist. Trachea is in the midline. Chest shows symmetric expansion, some scattered rhonchi that clear generally with suctioning. There are some faint basilar crackles. No rubs. Cardiac exam is distant, generally regular. Peripheral pulses remain significantly diminished. Extremities are cool, less mottling today. Abdomen mildly distended. There are faint bowel sounds in the distance. No obvious organomegaly or masses. Extremities show no cyanosis or clubbing today. Neurologically, he is essentially unresponsive. Ulcer and deep vein thrombosis (DVT) prophylaxis remain in place. Lines and tubes show all sites to be benign in appearance. The most pressing problems requiring my presence at the bedside are: 1. Hypoxemia, requiring mechanical ventilatory support. 2. Coronary artery disease, status post MAX cart. 3. Encephalopathy, multifactorial, primarily suspect anoxic. 4. Insulin-dependent diabetes mellitus. 5. Renal failure on CRRT. 6. Longstanding tobacco abuse. With the mild improvement yesterday morning in his mental status, the family had rescinded his do not resuscitate. I am told by the nursing staff that given the decline overnight they are considering resinstituting that. That will be a decision made by his daughter, who is his healthcare proxy. I have not had the opportunity to speak with her personally yet this morning. For now, we will continue full level of support. He is only intermittently tolerating tube feeds. Sugars are being covered. He has some intermittent watery stools and given his known significant vascular disease with his diabetes and his continued need for high dose vasopressors, I have considerable concern over ongoing microvascular ischemia. We will continue his current antimicrobials. Ulcer and deep vein thrombosis (DVT) prophylaxis are in place. I await the family's decision regarding code status, but for now he will continue on CRRT regarding his acid base status, electrolyte and fluid management. I appreciate input of nephrology and cardiology. However, in view of his multiorgan dysfunction, his prognosis remains grim regarding meaningful recovery at this point. We will proceed as outlined above. I left the bedside at 0844 hours. 34 minutes of critical care time was delivered at the bedside, not including procedures.
--- NOTE | 2018-08-05 13:06 | IPN ---
DATE OF SERVICE: 08/04/2018 SUBJECTIVE: The patient was seen and examined at the bedside today morning in the intensive care unit (ICU). Patient is still intubated. He is a little bit more awake on the vent today. He is still vent dependent. He continues to be on CCVHDF. He is currently requiring two pressors, Levophed and vasopressin. Patient was started on tube feeds today morning. He is still oliguric and there are no signs or renal recovery. Last 24 hours accumulative fluid balance sheet was reviewed by myself and he has been 725 mL positive fluid every since his CCVHDF was started. OBJECTIVE: VITAL SIGNS: Temperature is 96.9 degrees Fahrenheit, blood pressure 109/49, pulse is 83, respiratory rate of 34, saturating 97% on the vent with 50% FiO2. INTAKE/OUTPUT: Patient is anuric at this point. Accumulative fluid balance according to CCVHDF is positive 725 mL. Weight in the bed scale is 91 kg. PHYSICAL EXAMINATION: GENERAL: The patient is intubated, not sedated, opens eyes without commands. Currently on two pressors. HEAD AND NECK EXAM: Pupils are equally round and reactive to light. He has and OGD and endotracheal tube. Neck is supple. He has a right internal jugular (IJ) triple lumen catheter. CARDIOVASCULAR: S1, S2, tachycardia. No edema of the bilateral lower extremities. Automatic implantable cardioverter-defibrillator (AICD) in the anterior chest wall was noted. RESPIRATORY: Transmitted breath sounds bilaterally in the lungs, otherwise no active rales or rhonchi. ABDOMEN: Abdomen is soft. Positive bowel sounds. No organomegaly. GENITOURINARY: He has an indwelling Sahni catheter, minimal urine was noted in the Sahni bag. MUSCULOSKELETAL: Patient has cold extremities bilaterally, otherwise no cyanosis. Pulses are 1+ in the bilateral lower extremities. CENTRAL NERVOUS SYSTEM: Patient opens eyes to loud commands. Does not follow commands at this point. He is not sedated. LAB REVIEW: CBC showed a WBC of 16.5, hemoglobin 10.5, platelets of 197. ABG done today morning showed pH of 7.40, pCO2 of 24, pO2 206. Bicarbonate is 15.2. Oxygen saturation is 97.5. BMP showed a sodium of 134, potassium 4.9, chloride 99, bicarbonate 18, BUN 61, creatinine is 4, calcium is 6, total bilirubin is 4.3, AST 16,893, ALT 5874, alkaline phosphorus is 148, albumin 1.9. MICROBIOLOGY: Sputum culture is growing Streptococcus agalactiae (Group B). IMAGING: A chest x-ray done today morning showed lines and tubes are stable. Bibasilar opacities suggesting atelectasis and possible small effusion. CURRENT INPATIENT MEDICATIONS: The patient's medications were all reviewed by me. He is getting the electrolytes according to CVVHDF protocol. He continues to be on Levophed at 16 mcg and vasopressin at 0.04 units. He continues to be on Zosyn, amiodarone, low dose bisoprolol. No other change in the medications today as compared with yesterday. ASSESSMENT AND PLAN: 1. Acute anuric renal failure. It is secondary to shock and cardiac arrest. Patient is dependent on CVVHDF at this point. Fluid removal has been restricted because of low blood pressures requiring Levophed and vasopressin. I will continue the continuous renal replacement therapy (CRRT) at this point. I will try to remove fluid and keep him even if his MAP is above 65, if his MAP is below 65 no fluid will be removed. 2. Shock. It is a combination of cardiogenic shock and septic shock with multifocal pneumonia. He is currently on vancomycin and Zosyn. White cell count is slowly improving. Sputum cultures grew Streptococcus agalactiae which is sensitive to the current antibiotics the patient receiving. Continue current pressor support with Levophed and vasopressin. Try to maintain a MAP of about 60. 3. Vent dependent respiratory failure. Patient is intubated, not sedated. FiO2 requirement is still at 50%. I will try to maintain his volume status with CVVHDF. Vent management as per pulmonary team. 4. High anion gap metabolic acidosis and respiratory alkalosis. Patient's acidosis is being managed with CVVHDF, it is secondary to renal failure and lactic acidosis and shock liver as well which is unable to metabolize the lactic acid. Vent management per respiratory. Alkalosis is as per pulmonary team. 5. Shock liver. Patient's AST and ALT continues to rise. Avoid hepatotoxic medications. Statins were stopped yesterday. Continue the symptomatic treatment at this point. 6. Ischemic cardiomyopathy. Status post cardiac arrest and non-ST elevation myocardial infarction (CT). Patient is on very low dose of bisoprolol. He is dependent on Levophed and vasopressin at this point. He cannot take atorvastatin because of shock liver. The rest of the management is as per cardiology recommendations. 7. Hyponatremia which is hypervolemic hypernatremia because of oliguria and patient is receiving multiple medications and his blood pressure is low and we cannot remove much fluid with CVVHDF. 8. Hypocalcemia. Patient is getting IV calcium according to CVVHDF protocol. 9. Nutrition. Patient has been started on tube feeds. Advanced the tube feeds as tolerated and check for residue. Total critical care time spent in the management of this patient today morning in the intensive care unit (ICU) was 45 minutes, that does not include any procedures.
[2018-08-05 13:36] LABS: ALBUMIN 1.7 GM/DL (3.2-5.2); BILIRUBIN,DIRECT 3.6 MG/DL (0.0-0.2); BILIRUBIN,TOTAL 4.3 MG/DL (0.2-1.0); TOTAL PROTEIN 4.8 GM/DL (6.4-8.2)
[2018-08-05 14:08] LABS: IONIZED CALCIUM 4.3 MG/DL (4.5-5.3)
[2018-08-05 14:12] LABS: HEMOGLOBIN 9.5 g/dl (13.5-17.5); MEAN CORPUSCULAR HGB CONC 33.9 g/dl (32.0-36.5); MEAN CORPUSCULAR VOLUME 88.3 fl (80.0-96.0); PLATELET COUNT, AUTOMATED 149 10^3/uL (150-450); RED BLOOD COUNT 3.17 10^6/uL (4.30-6.10); WHITE BLOOD COUNT 12.6 10^3/uL (4.0-10.0)
[2018-08-05 14:47] LABS: CALCIUM LEVEL 7.8 MG/DL (8.5-10.1); CREATININE FOR GFR 3.31 MG/DL (0.70-1.30); GLOMERULAR FILTRATION RATE 21.2 (>60); MAGNESIUM LEVEL 2.6 MG/DL (1.8-2.4); PHOSPHORUS LEVEL 4.6 MG/DL (2.5-4.9); POTASSIUM SERUM 4.6 MEQ/L (3.5-5.1)
[2018-08-05] MEDS: CALCIUM GLUCONATE 1,000 MG in D5W MINI-BAG PLUS 100 ML IV SCH ×2 (14:59→16:12)
[2018-08-05 15:04] LABS: ALBUMIN 1.7 GM/DL (3.2-5.2); BILIRUBIN,TOTAL 4.5 MG/DL (0.2-1.0); CALCIUM LEVEL 7.3 MG/DL (8.5-10.1); CREATININE FOR GFR 3.32 MG/DL (0.70-1.30); GLOMERULAR FILTRATION RATE 21.2 (>60); POTASSIUM SERUM 4.7 MEQ/L (3.5-5.1)
[2018-08-05] MEDS ORDERED: METOCLOPRAMIDE INJ 10MG/2ML VIAL (J2765) IV SCH (18:00)
[2018-08-05 20:07] LABS: IONIZED CALCIUM 4.5 MG/DL (4.5-5.3)
[2018-08-05 20:39] LABS: CALCIUM LEVEL 7.9 MG/DL (8.5-10.1); CREATININE FOR GFR 3.2 MG/DL (0.70-1.30); GLOMERULAR FILTRATION RATE 22.1 (>60); MAGNESIUM LEVEL 2.7 MG/DL (1.8-2.4); POTASSIUM SERUM 4.5 MEQ/L (3.5-5.1)
[2018-08-05] MEDS ORDERED: CALCIUM GLUCONATE 1,000 MG in NS 100 ML IV ONE (22:00)
[2018-08-06] VITALS (24 sets, daily range): BP systolic 87–138; BP diastolic 37–65; O2SAT 98
[2018-08-06] MEDS: PIPERACILLIN/TAZOBACTAM SOD 3.375 GM in D5W MINI-BAG PLUS 50 ML IV SCH ×4 (00:12→18:27)
[2018-08-06] MEDS: MIDAZOLAM INJ 2 MG/2 ML VIAL (J2250) IV PRN ×3 (01:03→10:52)
[2018-08-06] MEDS: SODIUM CHLORIDE 0.9% INJ 10 ML SYR IV PRN ×2 (01:04→17:17)
[2018-08-06] MEDS: METOCLOPRAMIDE INJ 10MG/2ML VIAL (J2765) IV SCH ×3 (01:04→17:57)
[2018-08-06 02:23] LABS: HEMOGLOBIN 9.5 g/dl (13.5-17.5); IONIZED CALCIUM 4.4 MG/DL (4.5-5.3); MEAN CORPUSCULAR HGB CONC 33.9 g/dl (32.0-36.5); MEAN CORPUSCULAR VOLUME 88.3 fl (80.0-96.0); PLATELET COUNT, AUTOMATED 154 10^3/uL (150-450); RED BLOOD COUNT 3.17 10^6/uL (4.30-6.10); WHITE BLOOD COUNT 16.1 10^3/uL (4.0-10.0)
[2018-08-06 02:49] LABS: CALCIUM LEVEL 7.9 MG/DL (8.5-10.1); CREATININE FOR GFR 3.13 MG/DL (0.70-1.30); GLOMERULAR FILTRATION RATE 22.7 (>60); MAGNESIUM LEVEL 2.5 MG/DL (1.8-2.4); PHOSPHORUS LEVEL 3.7 MG/DL (2.5-4.9); POTASSIUM SERUM 4.4 MEQ/L (3.5-5.1)
[2018-08-06] MEDS: VASOPRESSIN INJ 20 UNITS in NS 499 ML IV SCH ×3 (03:20→17:54)
[2018-08-06] MEDS ORDERED: CALCIUM GLUCONATE 1,000 MG in NS 100 ML IV ONE (04:00)
[2018-08-06] MEDS: NOREPINEPHRINE BITARTRATE 16 MG in D5W 484 ML IV SCH (04:16)
[2018-08-06] MEDS: fentaNYL 100 MCG/2 ML INJECTION (J3010) IV PRN ×2 (05:03→06:32)
[2018-08-06] MEDS: AMIODARONE 200 MG TAB (PACERONE) GT SCH ×3 (05:03→21:13)
[2018-08-06 05:46] LABS: ABG BASE EXCESS -2.6 (-2.0-2.0); ABG HCO3 20.4 MEQ/L (22.0-26.0); ABG O2 SATURATION 96.8 % (95.0-99.0); ABG PARTIAL PRESSURE CO2 29.3 mmHg (35.0-45.0); ABG PARTIAL PRESSURE O2 87.8 mmHg (75.0-100.0); ABG STANDARD HCO3 22.3 MEQ/L (22.0-26.0); ABG TOTAL CO2 21.3 MEQ/L (22.0-29.0)
[2018-08-06] MEDS: SODIUM CHLORIDE 0.9% INJ 10 ML SYR IV SCH ×3 (06:00→21:13)
[2018-08-06 06:23] LABS: CALCIUM LEVEL 8.2 MG/DL (8.5-10.1); CREATININE FOR GFR 3.12 MG/DL (0.70-1.30); GLOMERULAR FILTRATION RATE 22.7 (>60); POTASSIUM SERUM 4.3 MEQ/L (3.5-5.1)
[2018-08-06] MEDS: HumaLOG INSULIN (NovoLOG) PER UNIT SC SCH ×4 (06:49→23:22)
--- NOTE | 2018-08-06 07:01 | REP ---
Clinical: Intubation. Comparison: 08/05/2018. Findings: Endotracheal tube 3 cm above the nishant. Nasogastric tube courses below left hemidiaphragm. Right IJ line with tip in the SVC. Pacemaker in stable position. Mediastinum and cardiac silhouette are stable. Bibasilar opacities suggesting atelectasis and small pleural effusions remain essentially stable. No pneumothorax. Skeletal structures intact. Impression: 1. Lines and tubes in satisfactory position. 2. Bibasilar opacities essentially unchanged. Electronically Signed by Shakeel Ramírez MD 08/06/2018 06:53 A
[2018-08-06] MEDS: ALBUTEROL SULFATE 2.5 MG/0.5 ML INH NEB SOLN NEB SCH ×4 (07:20→20:12)
[2018-08-06 08:10] LABS: IONIZED CALCIUM 4.4 MG/DL (4.5-5.3)
[2018-08-06 08:46] LABS: CREATININE FOR GFR 3.1 MG/DL (0.70-1.30); GLOMERULAR FILTRATION RATE 22.9 (>60); MAGNESIUM LEVEL 2.6 MG/DL (1.8-2.4); PHOSPHORUS LEVEL 3.8 MG/DL (2.5-4.9); POTASSIUM SERUM 4.3 MEQ/L (3.5-5.1)
[2018-08-06] MEDS: ASPIRIN 81 MG CHEW TABLET NG SCH ×2 (09:26→20:22)
[2018-08-06] MEDS: CLOPIDOGREL 75 MG TAB PO SCH (09:26)
[2018-08-06] MEDS: CHLORHEXIDINE GLUCONATE 0.12 % 15ML UDC (PERIDEX ORAL RINSE) MT SCH ×2 (09:26→20:23)
[2018-08-06] MEDS: PANTOPRAZOLE 40MG INJ (PROTONIX) (C9113) IV SCH (09:27)
[2018-08-06] MEDS: levETIRAcetam INJection 500 MG in D5W MINI-BAG PLUS 100 ML IV SCH ×2 (09:27→20:23)
[2018-08-06] MEDS: BISOPROLOL FUM 2.5 MG PER 1/2TAB GT SCH ×2 (09:28→20:30)
--- NOTE | 2018-08-06 09:59 | CCN ---
DATE: 08/06/2018 START TIME: 0850 hours STOP TIME: 0930 hours I again attended Dae Shipman here in the intensive care unit. The patient has been examined and the chart is reviewed. I spoke at length with his fiance at the bedside. He has required only minimal sedation. The Keppra started yesterday did appear to help with his myoclonic activity. He does flutter his eyes to verbal stimuli but does not follow commands or otherwise meaningfully interact. Maximum temperature (Tmax) overnight 100.8. Blood pressure 90 to 130s on 7 mcg of Levophed as well as 0.04 mcg of vasopressin. Heart rate generally in the 70s to 80s generally with a paced rhythm. Respiratory rate in the low 30s. He remains on continuous renal replacement therapy (CRRT) and had 3651 mL removed yesterday and 4335 mL in. Chest x-ray shows no significant change. Lines and tubes in good position. Laboratories show a white blood cell count 16.1, hemoglobin 9.5, platelet count 154,000. Sodium 134, potassium 4.3, chloride 103, CO2 21, BUN 53, creatinine 3.1, glucose 201. Blood gas done on assist control, tidal volume 500,PEEP 8, FiO2 of 40%, has a pH of 7.463, pCO2 of 29.3, and pO2 of 87.8. On exam, neurologic as outlined above. Pupils do work, he does have positive corneals. He does have a cough and gag although they are weak. Membranes are moist. Trachea is in the midline. Chest does show diminished but symmetric expansion. There are some rhonchi that clear generally with suctioning. No other focal adventitious breath sounds are identified. Median sternotomy, automatic implantable cardioverter defibrillator (AICD)/pacemaker generator are again noted. Cardiac exam is generally regular. Peripheral pulses markedly diminished. Abdomen: I do believe there are faint bowel sounds, generally soft, no convincing organomegaly or masses. Extremities remain cool. The toes of both feet are pale, almost mottled at the tips. Neurologically as outlined above and psychiatric exam is generally sedate. The most pressing problems requiring my presence at the bedside: 1. Respiratory alkalosis, mild. 2. Respiratory failure, hypoxic, requiring mechanical ventilatory support. 3. Coronary artery disease status post non-ST elevation myocardial infarction (NE). 4. Recent max cart. 5. Encephalopathy, multifactorial. 6. Renal failure requiring continuous renal replacement therapy (CRRT). 7. Insulin-dependent diabetes mellitus. 8. Longstanding tobacco abuse. 9. History of stroke. At this point, the family is still requesting that he be a FULL CODE. He requires minimal sedation. He has been off propofol for days. We are using as needed Versed or morphine/fentanyl. We will continue the Keppra for his suspected myoclonic/seizure activity. Continuous renal replacement therapy (CRRT) is continuing per nephrology. I appreciate cardiology's input as well. He remains on ulcer and deep venous thrombosis (DVT) prophylaxis. He is on empiric antimicrobials. He is tolerating tube feeds. However, in view of his continued multiorgan dysfunction and high-dose need for vasopressors, his prognosis remains guarded at best. I had a long discussion at the bedside with his fiance regarding the fact that the longer he remains on vasopressors, the more I am concerned about other ischemic events, especially of his toes. Certainly, intestinal ischemia is always a concern. At this point however, we will proceed as outlined above. He has a high likelihood of not surviving this hospitalization. I left the bedside at 0930 hours. 35 minutes of critical care time were delivered at the bedside, not including procedures. KENDELL
[2018-08-06 13:55] LABS: HEMATOCRIT 27.5 % (42.0-52.0); HEMOGLOBIN 9.2 g/dl (13.5-17.5); MEAN CORPUSCULAR HEMOGLOBIN 30.1 pg (27.0-33.0); MEAN CORPUSCULAR HGB CONC 33.5 g/dl (32.0-36.5); MEAN CORPUSCULAR VOLUME 89.9 fl (80.0-96.0); PLATELET COUNT, AUTOMATED 125 10^3/uL (150-450); RED BLOOD COUNT 3.06 10^6/uL (4.30-6.10); WHITE BLOOD COUNT 16.7 10^3/uL (4.0-10.0)
[2018-08-06 14:03] LABS: IONIZED CALCIUM 4.5 MG/DL (4.5-5.3)
[2018-08-06 14:49] LABS: CALCIUM LEVEL 7.8 MG/DL (8.5-10.1); CREATININE FOR GFR 2.98 MG/DL (0.70-1.30); MAGNESIUM LEVEL 2.4 MG/DL (1.8-2.4); PHOSPHORUS LEVEL 3.3 MG/DL (2.5-4.9); POTASSIUM SERUM 4.2 MEQ/L (3.5-5.1)
[2018-08-06] MEDS ORDERED: CALCIUM GLUCONATE 1,000 MG in D5W MINI-BAG PLUS 100 ML IV ONE ×3 (15:45→20:30)
[2018-08-06 20:07] LABS: IONIZED CALCIUM 4.6 MG/DL (4.5-5.3)
[2018-08-06 20:44] LABS: CALCIUM LEVEL 7.5 MG/DL (8.5-10.1); CREATININE FOR GFR 3.08 MG/DL (0.70-1.30); GLOMERULAR FILTRATION RATE 23.1 (>60); MAGNESIUM LEVEL 2.6 MG/DL (1.8-2.4); PHOSPHORUS LEVEL 3.2 MG/DL (2.5-4.9); POTASSIUM SERUM 4.1 MEQ/L (3.5-5.1)
[2018-08-06] MEDS: ACETAMINOPHEN 325 MG/10.15 ML UDC GT PRN (21:30)
--- NOTE | 2018-08-06 22:12 | IPN ---
DATE OF SERVICE: 08/05/2018 SUBJECTIVE: The patient was seen and examined at the bedside today morning in the intensive care unit (ICU). The last 24 hour events are noted. The patient was prophylactically started on Keppra infusion yesterday. Because of facial twitching and irregular eye movements. He continues to be on continuous veno-venous hemodiafiltration (CVVHDF). Cumulative fluid balance since the time CVVHDF was started was 2065 mL and since yesterday he is almost 1 liter positive. He is tolerating fluid removal when his mean arterial pressure (MAP) is above 65. His pressor requirements are coming down. His Levophed today morning was at 7 mcg. Vasopressin was 0.04 units. His white cell count is improving. There is no improvement of the renal function. The patient continues to be oliguric. The patient was hyperkalemic last night. His dialysate potassium was changed to 2K. Transmembrane pressures on the filters are rising now. The patient is due for filter change today. His shock liver is also improving. AST and ALT are better today as compared with yesterday. OBJECTIVE: Vital signs: Temperature is 99 degrees Fahrenheit. Blood pressure 108/46. Pulse is 89. Respiratory rate of 30. Saturating 98% on the vent with 50% FiO2. Intake and output: There is no urine output recorded. Cumulative fluid balance is 2065 mL since start of CVVHDF. Weight on the bed scale is 89.1 kg which is almost 1 kg below his weight yesterday. PHYSICAL EXAMINATION: GENERAL: The patient is intubated, sedated today. Eyes are closed. HEAD AND NECK EXAM: Pupils are equally round and reactive to light. Mucous membranes are moist. Neck is supple. He has an orogastric tube (OGT) and endotracheal tube. He has a right internal jugular triple-lumen catheter. CARDIOVASCULAR: S1, S2 regular rate. Trace edema of the bilateral lower extremities. RESPIRATORY: Transmitted breath sounds from the ventilator otherwise no active rales or rhonchi. ABDOMEN: Soft, decreased bowel sounds. It is tender to deep palpation and patient opens eyes and moves upper extremities when his abdomen is palpated. GENITOURINARY (): He has an indwelling Sahni catheter. Minimal urine is found in the bag. MUSCULOSKELETAL: His extremities are cold. Pulses are 1+. CENTRAL NERVOUS SYSTEM (MEDICAL ASSISTANT): Patient opens eyes to painful stimuli. He moves bilateral upper extremities on pain. He does not follow any commands. He is sedated with intermittent dose of Versed. LABORATORY REVIEW: Complete blood count (CBC) showed a white blood cell (WBC) of 12.6, hemoglobin is 9.5, platelets of 149. Partial thromboplastin time (PTT) is 38. Arterial blood gas (ABG) done today morning showed pH of 7.42, pCO2 of 31, PO2 101. Bicarbonate is 20. 02 saturation is 97%. Comprehensive metabolic panel (CMP) done today showed sodium 135, potassium 4.7, chloride 103, bicarbonate 23, BUN 50, creatinine is 3.3, calcium is 7.3. Ionized calcium is 4.5. Total bilirubin is 4.5, AST is 5826. ALT is 3392. Alkaline phosphatase is 163. Albumin is 1.7. IMAGING: A chest x-ray was done today morning which showed lines and tubes in satisfactory position. Continuous bibasilar atelectasis and infiltrates. CURRENT INPATIENT MEDICATIONS: The patient's medications were all reviewed by me. He continues to be on: - Levophed at 7 mcg - Keppra - he has been started on Keppra 500 mg every 12 hours - vasopressin - he continues to be on vasopressin - Zebeta - he is also on low dose beta renita Zebeta 2.5 mg by mouth daily - Reglan injection - he has been started on Reglan injection 10 mg intravenous (IV) every 6 hours. I am going to decrease the dose to 5 mg every 8 hours because of renal failure. No other change in the medications today as compared with yesterday. ASSESSMENT AND PLAN: 1. Acute anuric renal failure. The patient continues to be dependent on dialysis. He continues on continuous veno-venous hemodiafiltration (CVVHDF). His pressor requirements are decreasing. I am going to try to remove more fluid for a mean arterial pressure (MAP) of above 65. I will try to remove 50 mL an hour for MAP between 60 to 65. I would keep him even for his hourly input and for MAP less than 60 I would not remove any fluid. Continue the electrolyte replacement as per CVVHDF protocol. 2. Hyperkalemia. The patient developed hyperkalemia overnight. His dialysate potassium was changed to 2K. Potassium level is improving within the normal range now. 3. Shock. It is multifactorial including cardiogenic shock, [id number] myocardial infarction, severe ischemic cardiomyopathy and septic shock with multifocal pneumonia. He continues to be on vancomycin and Zosyn. White cell count is improving. His pressor requirement is decreasing. He is currently on Levophed 7 mcg only. 4. Ventilator dependent respiratory failure. The ventilator is being managed by pulmonary service. FiO2 requirement on the ventilator is 40% at this point. Fluid management is being done with CVVHDF. 5. Metabolic acidosis and respiratory alkalosis. Metabolic acidosis is secondary to shock and renal failure. It is being treated with CVVHDF. Vent management is by pulmonary service. 6. Shock liver. The patient's liver functions are improving. AST and ALT is getting better. Avoid hepatotoxic medications at this point. 7. Nutrition. The patient is intermittently tolerating tube feeds. He has been started on Reglan. I have adjusted the dose according to renal function. 8. Lve-DV-uwaxmtxvg myocardial infarction and ischemic cardiomyopathy. The patient's blood pressures are still low. He is only tolerating very low dose of bisoprolol 2.5 mg every 12 hours. He is on heparin. Partial thromboplastin time (PTT) is therapeutic. He is not a candidate for any cardiac intervention at this point. Statins were stopped because of shock liver. The rest of the management is as per cardiology recommendations. 9. Anemia. Hemoglobin is 9.5 which is optimal at this point. Transfuse as needed for hemoglobin 8 or below. Total critical care time spent in the management of this patient today morning in the ICU is 45 minutes. That does not include any procedures.
[2018-08-07] VITALS (23 sets, daily range): BP systolic 88–141; BP diastolic 48–73
[2018-08-07] MEDS: PIPERACILLIN/TAZOBACTAM SOD 3.375 GM in D5W MINI-BAG PLUS 50 ML IV SCH ×4 (00:36→18:42)
[2018-08-07] MEDS: VASOPRESSIN INJ 20 UNITS in NS 499 ML IV SCH ×3 (01:20→17:15)
[2018-08-07] MEDS: METOCLOPRAMIDE INJ 10MG/2ML VIAL (J2765) IV SCH ×3 (02:13→17:56)
[2018-08-07 02:23] LABS: HEMATOCRIT 27.8 % (42.0-52.0); MEAN CORPUSCULAR HEMOGLOBIN 29.5 pg (27.0-33.0); MEAN CORPUSCULAR HGB CONC 32.4 g/dl (32.0-36.5); MEAN CORPUSCULAR VOLUME 91.1 fl (80.0-96.0); PLATELET COUNT, AUTOMATED 117 10^3/uL (150-450); RED BLOOD COUNT 3.05 10^6/uL (4.30-6.10); WHITE BLOOD COUNT 21.5 10^3/uL (4.0-10.0)
[2018-08-07 02:50] LABS: IONIZED CALCIUM 4.6 MG/DL (4.5-5.3)
[2018-08-07 03:18] LABS: CALCIUM LEVEL 7.6 MG/DL (8.5-10.1); CREATININE FOR GFR 3.13 MG/DL (0.70-1.30); GLOMERULAR FILTRATION RATE 22.7 (>60); MAGNESIUM LEVEL 2.5 MG/DL (1.8-2.4); POTASSIUM SERUM 4.1 MEQ/L (3.5-5.1)
[2018-08-07] MEDS ORDERED: CALCIUM GLUCONATE 1,000 MG in D5W MINI-BAG PLUS 100 ML IV ONE ×3 (04:00→20:30)
[2018-08-07] MEDS: AMIODARONE 200 MG TAB (PACERONE) GT SCH ×3 (05:04→21:02)
[2018-08-07] MEDS: SODIUM CHLORIDE 0.9% INJ 10 ML SYR IV SCH ×3 (05:04→21:02)
[2018-08-07] MEDS: HumaLOG INSULIN (NovoLOG) PER UNIT SC SCH ×4 (05:21→23:24)
[2018-08-07 06:08] LABS: ABG BASE EXCESS -2.8 (-2.0-2.0); ABG HCO3 21.1 MEQ/L (22.0-26.0); ABG O2 SATURATION 96.8 % (95.0-99.0); ABG PARTIAL PRESSURE CO2 33.3 mmHg (35.0-45.0); ABG STANDARD HCO3 22.1 MEQ/L (22.0-26.0); ABG TOTAL CO2 22.1 MEQ/L (22.0-29.0); ABG pH (ARTERIAL) 7.419 UNITS (7.350-7.450)
--- NOTE | 2018-08-07 07:38 | REP ---
Clinical: Ventilatory assistance. Comparison: 08/06/2018. Findings: Endotracheal tube approximately 3 cm above the nishant. Nasogastric tube courses below left hemidiaphragm. Right IJ line with tip in the SVC. Pacemaker in stable position. Cephalization with perihilar and bibasilar opacities are similar to prior examination and most compatible with pulmonary vascular congestion including areas of atelectasis/consolidation and possible layering effusion. No pneumothorax. Skeletal structures stable. Impression: 1. Lines and tubes in satisfactory position. 2. Bilateral opacities as described above likely representing element of pulmonary vascular congestion. Differential diagnosis includes multifocal atelectasis/pneumonia. Electronically Signed by Shakeel Ramírez MD 08/07/2018 07:30 A
[2018-08-07 08:03] LABS: IONIZED CALCIUM 4.6 MG/DL (4.5-5.3)
[2018-08-07] MEDS: BISOPROLOL FUM 2.5 MG PER 1/2TAB GT SCH ×2 (09:03→20:15)
[2018-08-07] MEDS: ALBUTEROL SULFATE 2.5 MG/0.5 ML INH NEB SOLN NEB SCH ×4 (09:10→21:50)
[2018-08-07] MEDS: CLOPIDOGREL 75 MG TAB PO SCH (09:17)
[2018-08-07] MEDS: CHLORHEXIDINE GLUCONATE 0.12 % 15ML UDC (PERIDEX ORAL RINSE) MT SCH ×2 (09:18→20:15)
[2018-08-07] MEDS: ASPIRIN 81 MG CHEW TABLET NG SCH ×2 (09:18→20:15)
[2018-08-07] MEDS: PANTOPRAZOLE 40MG INJ (PROTONIX) (C9113) IV SCH (09:19)
[2018-08-07] MEDS: levETIRAcetam INJection 500 MG in D5W MINI-BAG PLUS 100 ML IV SCH ×2 (09:19→20:15)
--- NOTE | 2018-08-07 09:46 | IPN ---
DATE: 08/06/2018 Mr. Shipman is seen in the intensive care unit on his bedside. Continuous veno-venous hemodialysis (CVVHD) is currently in progress. The patient remains on the ventilator and is also receiving pressors including vasopressin and Levophed. He has a rectal tube due to loose stools and minimal urine output. The patient is currently being treated for septic and cardiogenic shock with multiorgan failure including anuric acute renal failure. He is unresponsive and not able to follow any commands. He is receiving tube feeding via a nasogastric tube. On physical examination, temperature 99.3 degrees Fahrenheit, heart rate 78 per minute and respiratory rate 30 per minute on the ventilator. Blood pressure 102/56 mmHg and oxygen saturation 97% on 40% oxygen. His CVP is about 23. His head is atraumatic. He has some spontaneous eye movements, but not able to follow any command and there is no purposeful eye movement. He has a nasogastric tube and endotracheal tube in place. There is a central line in the right internal jugular vein. Neck veins are difficult to be assessed. Heart sounds are regular at present and lungs have good bilateral air entry. Abdomen is soft and nontender and bowel sounds are normal. Extremities have dusky cyanotic discoloration of his toes. There is mild peripheral edema, but no clubbing. Neurologically, he is unresponsive. LABORATORY DATA: I have reviewed all his labs which included a CBC from earlier this morning at 2:12 a.m. WBC count was 16.1, hemoglobin 9.5 and hematocrit 28.0. Platelets 154. His blood gas from this morning showed a pH of 7.46, pCO2 29.3, pO2 87.8 and bicarb 20. Sodium 134, potassium 4.3, CO2 19, BUN 51 and creatinine 3.12. Glucose 175 and calcium 8.2. PTT is 39.4. His chest x-ray done this morning is reviewed independently. There are bibasilar opacities and there is a right internal jugular vein central line with tip in the superior vena cava (SVC). Nasogastric tube is noticed in place and endotracheal tube is also in appropriate position. PROBLEMS: 1. Oliguric acute renal failure. The patient remains oliguric and is currently dependent on CVVHD due to septic shock and need for fluids. His volume status is still decompensated with CVP of 23. We will continue the CVVHD and try to remove fluid as long as his mean arterial pressure is above 65. His CVVHD orders are renewed. I have also discussed with the nursing staff on the bedside. 2. Septic shock. The patient remains on two pressors including Levophed and vasopressin. The source of his sepsis is unclear. He remains on broad-spectrum antibiotics and is being followed by the critical care team. 3. Hyponatremia. The patient does have mild hyponatremia which is stable and is likely to improve with current CVVHD prescription. We will continue our efforts to remove fluid as tolerated. 4. Respiratory failure. The patient is currently on the ventilator and volume status is decompensated. We will remove about 50 mL of fluid per hour as tolerated as long as his mean or arterial pressure is above 65. 5. Status post cardiac arrest and cardiogenic shock. At this point, his hemodynamics are being supported with pressors. He remains on amiodarone and low-dose bisoprolol. Overall prognosis for this gentleman remains guarded in view of multiorgan failure and his kidney critical condition persists. Will continue to follow him closely. 34-minutes of critical care time spent on the bedside during which no procedures were performed.
[2018-08-07 09:57] LABS: CALCIUM LEVEL 7.8 MG/DL (8.5-10.1); CREATININE FOR GFR 3.09 MG/DL (0.70-1.30); MAGNESIUM LEVEL 2.4 MG/DL (1.8-2.4); PHOSPHORUS LEVEL 2.7 MG/DL (2.5-4.9); POTASSIUM SERUM 4.2 MEQ/L (3.5-5.1)
--- NOTE | 2018-08-07 12:15 | CCN ---
DATE: 08/07/2018 START TIME: 744 STOP TIME: 821 I again attended Mr. Shipman here in the intensive care unit. Requiring minimal sedation. Remains ventilated. He is able to be down somewhat on his Levophed. He remains on vasopressin. T-max overnight 99.9. Blood pressure 94 to the 120s. Heart rate in the 70s. Respiratory rate generally in the low 30s. Ins and outs, he remains on continuous renal replacement therapy (CRRT) and 4 liters was taken off yesterday. White blood cell count 21.5, hemoglobin 9.0, platelet count 117,000. Sodium 136, potassium 4.2, chloride 103, CO 21, BUN 57, creatinine 3.09, glucose 262. Chest x-ray shows no new findings. Arterial blood gas done on assist control, rate of 30, tidal volume 500, PEEP of 8, FiO2 of 40%, has a pH of 7.419, pCO2 of 33.3, and pO2 of 90. On exam, he does open his eyes to voice today. He really does not move his extremities much as he is globally weak. Difficult to know if he responds completely appropriate to questioning. Pupils do react. He has a cough and a gag that are weak. Trachea is in the midline. Chest shows diminished, but symmetric expansion. There are some rhonchi. Dependent crackles are noted. No rubs. Cardiac exam is distant, but regular. Peripheral pulses markedly diminished. Abdomen soft. There are faint bowel sounds. Mildly distended. No convincing organomegaly or masses. Extremities remain cool. Toes remain dusky. Neurologically as outlined above. No other new culture data available. Remains on ulcer and deep vein thrombosis (DVT) prophylaxis. The most pressing problems requiring my presence at the bedside are: 1. Respiratory failure requiring mechanical ventilatory support. 2. Coronary artery disease, admitted with chest pain. 3. Renal failure, on CRRT. 4. Encephalopathy. 5. Long standing and continued tobacco abuse. 6. Insulin dependent diabetes mellitus. At this point, we will continue with our current course. He is on a little less in the way of vasopressors today. He remains on CRRT. The family did reinstitute his DO NOT RESUSCITATE (DNR) yesterday and I believe this is quite appropriate. I greatly appreciate the help of nephrology and cardiology. In view of his continued multi organ dysfunction which is severe, there is no ventilator weaning planned today. His mental status does fluctuate. He has had no further myoclonic activity and remains on Keppra. His prognosis remains guarded at best. I left the bedside at 0822 hours. A total of 37 minutes of critical care time delivered at the bedside, not including procedures.
[2018-08-07 14:04] LABS: IONIZED CALCIUM 4.7 MG/DL (4.5-5.3)
[2018-08-07 14:12] LABS: HEMATOCRIT 27.6 % (42.0-52.0); HEMOGLOBIN 9.1 g/dl (13.5-17.5); MEAN CORPUSCULAR HEMOGLOBIN 29.7 pg (27.0-33.0); MEAN CORPUSCULAR VOLUME 90.2 fl (80.0-96.0); PLATELET COUNT, AUTOMATED 101 10^3/uL (150-450); RED BLOOD COUNT 3.06 10^6/uL (4.30-6.10); WHITE BLOOD COUNT 24.2 10^3/uL (4.0-10.0)
[2018-08-07 15:00] LABS: CALCIUM LEVEL 7.7 MG/DL (8.5-10.1); CREATININE FOR GFR 3.22 MG/DL (0.70-1.30); GLOMERULAR FILTRATION RATE 21.9 (>60); MAGNESIUM LEVEL 2.4 MG/DL (1.8-2.4); PHOSPHORUS LEVEL 2.8 MG/DL (2.5-4.9); POTASSIUM SERUM 4.2 MEQ/L (3.5-5.1)
[2018-08-07] MEDS: MIDAZOLAM INJ 2 MG/2 ML VIAL (J2250) IV PRN (17:57)
[2018-08-07] MEDS: ACETAMINOPHEN 325 MG/10.15 ML UDC GT PRN (17:57)
[2018-08-07 20:06] LABS: IONIZED CALCIUM 4.5 MG/DL (4.5-5.3)
[2018-08-07 20:29] LABS: CALCIUM LEVEL 7.3 MG/DL (8.5-10.1); CREATININE FOR GFR 3.18 MG/DL (0.70-1.30); GLOMERULAR FILTRATION RATE 22.2 (>60); MAGNESIUM LEVEL 2.5 MG/DL (1.8-2.4); PHOSPHORUS LEVEL 2.4 MG/DL (2.5-4.9); POTASSIUM SERUM 4.2 MEQ/L (3.5-5.1)
[2018-08-07] MEDS ORDERED: SODIUM PHOSPHATE INJ 15 MMOL in D5W 250 ML IV ONE (22:30)
[2018-08-08] VITALS (29 sets, daily range): BP systolic 68–137; BP diastolic 38–67; O2SAT 91–99
[2018-08-08] MEDS: VASOPRESSIN INJ 20 UNITS in NS 499 ML IV SCH ×2 (00:08→08:12)
[2018-08-08] MEDS: PIPERACILLIN/TAZOBACTAM SOD 3.375 GM in D5W MINI-BAG PLUS 50 ML IV SCH ×4 (00:41→18:28)
[2018-08-08] MEDS: METOCLOPRAMIDE INJ 10MG/2ML VIAL (J2765) IV SCH ×3 (01:41→18:28)
[2018-08-08 02:12] LABS: IONIZED CALCIUM 4.5 MG/DL (4.5-5.3)
[2018-08-08 02:18] LABS: HEMATOCRIT 28.2 % (42.0-52.0); HEMOGLOBIN 9.1 g/dl (13.5-17.5); MEAN CORPUSCULAR HEMOGLOBIN 29.5 pg (27.0-33.0); MEAN CORPUSCULAR HGB CONC 32.3 g/dl (32.0-36.5); MEAN CORPUSCULAR VOLUME 91.6 fl (80.0-96.0); RED BLOOD COUNT 3.08 10^6/uL (4.30-6.10); WHITE BLOOD COUNT 29.4 10^3/uL (4.0-10.0)
[2018-08-08 02:21] LABS: PLATELET COUNT, AUTOMATED 99 10^3/uL (150-450)
[2018-08-08] MEDS ORDERED: CALCIUM GLUCONATE 1,000 MG in D5W MINI-BAG PLUS 100 ML IV ONE (02:30)
[2018-08-08 02:35] LABS: CALCIUM LEVEL 7.5 MG/DL (8.5-10.1); CREATININE FOR GFR 3.12 MG/DL (0.70-1.30); GLOMERULAR FILTRATION RATE 22.7 (>60); MAGNESIUM LEVEL 2.5 MG/DL (1.8-2.4); PHOSPHORUS LEVEL 3.5 MG/DL (2.5-4.9); POTASSIUM SERUM 4.2 MEQ/L (3.5-5.1)
[2018-08-08] MEDS: SODIUM CHLORIDE 0.9% INJ 10 ML SYR IV SCH ×3 (05:03→21:08)
[2018-08-08] MEDS: AMIODARONE 200 MG TAB (PACERONE) GT SCH ×3 (05:03→21:07)
[2018-08-08 05:33] LABS: ABG BASE EXCESS -2.8 (-2.0-2.0); ABG HCO3 20.4 MEQ/L (22.0-26.0); ABG O2 SATURATION 96.3 % (95.0-99.0); ABG PARTIAL PRESSURE CO2 30.1 mmHg (35.0-45.0); ABG PARTIAL PRESSURE O2 86.9 mmHg (75.0-100.0); ABG STANDARD HCO3 22.1 MEQ/L (22.0-26.0); ABG TOTAL CO2 21.3 MEQ/L (22.0-29.0); ABG pH (ARTERIAL) 7.449 UNITS (7.350-7.450)
[2018-08-08] MEDS: HumaLOG INSULIN (NovoLOG) PER UNIT SC SCH ×4 (05:58→23:51)
[2018-08-08] MEDS: ALBUTEROL SULFATE 2.5 MG/0.5 ML INH NEB SOLN NEB SCH ×4 (07:23→19:41)
--- NOTE | 2018-08-08 08:08 | REP ---
Portable chest x-ray: Single view. History: Intubated patient. Comparison study: August 07, 2018. Findings: Endotracheal tube is seen in good position at the level of proximal clavicles. NG tube enters left upper quadrant. A right internal jugular central venous line terminates in the expected location of the superior vena cava. A multi lead pacemaker is noted via the left side. There is hazy opacity in the bases bilaterally consistent with bilateral pleural effusions, left probably a little larger than the right. No new infiltrate. Cardiomediastinal silhouette is unchanged and unremarkable. There appears to be a central venous line terminating in the region of the subclavian vein or axillary vein on the right. Electronically Signed by Everett Kent MD 08/08/2018 07:59 A
[2018-08-08] MEDS: levETIRAcetam INJection 500 MG in D5W MINI-BAG PLUS 100 ML IV SCH ×2 (08:09→20:18)
[2018-08-08] MEDS: ASPIRIN 81 MG CHEW TABLET NG SCH ×2 (08:09→20:18)
[2018-08-08] MEDS: BISOPROLOL FUM 2.5 MG PER 1/2TAB GT SCH ×2 (08:09→20:18)
[2018-08-08] MEDS: CLOPIDOGREL 75 MG TAB PO SCH (08:09)
[2018-08-08] MEDS: PANTOPRAZOLE 40MG INJ (PROTONIX) (C9113) IV SCH (08:09)
[2018-08-08] MEDS: CHLORHEXIDINE GLUCONATE 0.12 % 15ML UDC (PERIDEX ORAL RINSE) MT SCH ×2 (08:10→20:18)
[2018-08-08 08:12] LABS: IONIZED CALCIUM 4.5 MG/DL (4.5-5.3)
[2018-08-08 08:50] LABS: CREATININE FOR GFR 3.12 MG/DL (0.70-1.30); GLOMERULAR FILTRATION RATE 22.7 (>60); MAGNESIUM LEVEL 2.6 MG/DL (1.8-2.4); PHOSPHORUS LEVEL 3.1 MG/DL (2.5-4.9); POTASSIUM SERUM 4.2 MEQ/L (3.5-5.1)
[2018-08-08] MEDS ORDERED: CALCIUM GLUCONATE 1,000 MG in NS 100 ML IV ONE ×2 (09:00→15:30)
[2018-08-08] MEDS ORDERED: VANCOMYCIN HCL 1,000 MG, VIAL MATE ADAPTER 1 EACH in D5W 250 ML IV ONE (11:00)
--- NOTE | 2018-08-08 11:07 | CCN ---
DATE: 08/08/2018 START TIME: 10:05 STOP TIME: 10:42 I again examined Dae Shipman in the intensive care unit. Patient has been examined and his chart reviewed. I have spoken at length with nephrology at the beside as well. Maximum temperature (T-max) overnight 100.4 currently 99.5. Blood pressure in the 130s. He is off his vasopressor as of just a little bit ago. Heart rate 70-90, generally with a paced rhythm. Respiratory rate remains in the low 30s. Assist control rate of 30, tidal volume 450, PEEP of 8, FiO2 60%. pH of 7.449, pCO2 30.1 and pO2 of 86, saturation 96.3%. Sodium 136, potassium 4.2, CO2 22, BUN 61, creatinine 3.12. White blood cell count up to 29.4, hemoglobin 9.1, platelet count 99,000. No differential today. Chest x-ray shows no new findings. On examination, he does not really meaningfully interact at all today. Roving eye movements. Pupils do react. Membranes are moist. Trachea is in the midline. Chest shows maybe some fine dependent crackles but otherwise, no focal adventitious breath sounds are identified. Cardiac exam is generally regular. Peripheral pulses markedly diminished. Mild edema is unchanged. Abdomen: There are active bowel sounds. No obvious organomegaly or masses. Extremities date of examination show much less mottling. Toes are much less dusky today. Neurologically as outlined above. Most pressing problems requiring my presence at the bedside: 1. Respiratory failure, multifactorial requiring mechanical ventilatory support. 2. Encephalopathy: Suspect anoxic/toxic metabolic. 3. Renal failure on CRRT. 4. DO NOT RESUSCITATE status. 5. Coronary artery disease. 6. Diabetes mellitus. His prognosis remains overall quite poor in view of his multiorgan dysfunction and the fact that he has made no significant improvement regarding his mental status. He metabolic demands are still high and as long as he remains on CRRT, we can make no meaningful progress regarding weaning for mechanical ventilator support, especially in view of his mental status as well. Given his elevated white count, we will add vancomycin to his Zosyn. Cultures have been ordered. He has been able to be weaned from pressors. Ulcer and deep venous thrombosis prophylaxis are in place. He is tolerating enteral feeds at this point. He still has diarrhea. I will send a C difficile toxin, especially in view of his antimicrobials. The family did reinstitute his DO NOT RESUSCITATE and that will be honored. I will keep them updated as any new information becomes available. I left the bedside at 1042 hours. 37 minutes of critical care time was devoted to bedside not including procedures. KENDELL
[2018-08-08 14:28] LABS: HEMATOCRIT 27.6 % (42.0-52.0); HEMOGLOBIN 9.2 g/dl (13.5-17.5); MEAN CORPUSCULAR HEMOGLOBIN 29.9 pg (27.0-33.0); MEAN CORPUSCULAR HGB CONC 33.3 g/dl (32.0-36.5); MEAN CORPUSCULAR VOLUME 89.6 fl (80.0-96.0); PLATELET COUNT, AUTOMATED 102 10^3/uL (150-450); RED BLOOD COUNT 3.08 10^6/uL (4.30-6.10)
[2018-08-08 14:34] LABS: WHITE BLOOD COUNT 33.7 10^3/uL (4.0-10.0)
--- NOTE | 2018-08-08 15:09 | IPN ---
DATE: 08/07/2018 Mr. Shipman is seen on his bedside in the intensive care unit this morning. His overall condition is only slightly different as he is now off Levophed but still on 60 mL of vasopressin. He remains on the ventilator and on continuous venovenous hemodialysis (CVVHD) due to renal failure. He still has minimal urine output. The patient has been unresponsive since cardiac arrest and nursing staff reports no purposeful movement or interaction. He does have constant rolling of his eyeballs. PHYSICAL EXAMINATION: On physical examination, temperature is 99.5 degrees Fahrenheit, heart rate 90 per minute and respiratory rate 30 per minute. Blood pressure 110/60 mmHg and oxygen saturation 98% on the ventilator. His central venous pressure (CVP) is 18. Intake and output records are negative for 373 mL over the last 24 hours. His head is atraumatic. Nasogastric and endotracheal tubes are in position. Neck veins are difficult to be assessed. Heart sounds are regular and without a pericardial friction rub. Lungs have good bilateral air entry. Abdomen is soft and nontender and bowel sounds are present. Extremities have no clubbing and no cyanosis on the upper extremities. However, on the toes, he has some discoloration due to poor circulation. Neurologically, he remains unresponsive. Constant rolling of eyeballs is noted but no purposeful interaction or movement. LABORATORY DATA: Today's laboratories show WBC count 21.5, hemoglobin 9.0, and hematocrit 27.8. Platelets 117. Sodium is 136 and potassium 4.2, CO2 21, BUN 57 and creatinine 3.09. Glucose 262 and calcium 7.8. Blood gas today showed pH of 7.41, pCO2 33.3, pO2 90 and bicarbonate 22. PROBLEMS: 1. Anuric acute renal failure. The patient remains dialysis-dependent and he is currently on continuous venovenous hemodialysis (CVVHD) due to persistent hypotension. He is still on pressors. His electrolytes and acidosis are corrected. We are trying to remove some fluid as tolerated with CVVHD. His central venous pressure (CVP) is still higher than the goal. His CVVHD orders are being renewed and we will continue with the current plan. 2. Septic shock and cardiogenic shock. The patient remains pressor-dependent though he is now only on vasopressin and is off Levophed. At this point, we will continue to maintain his mean arterial pressure above 65 and not remove fluid if we his mean arterial pressure drops below 60. He is being maintained on broad-spectrum antibiotic coverage, though no definite source of sepsis is identified. 3. Anemia. The patient remains stable at present and there is no emergent indication for a transfusion. 4. Respiratory failure. The patient remains on 40% FIO2 on the ventilator. He probably has infiltrates and some volume overload. We will continue our efforts to remove fluid as much as tolerated and allowed by the low blood pressure. 5. Status post cardiac arrest. The patient has not made any progress in his mentation over the last several days. He is not on any sedatives and overall prognosis remains poor. 32 minutes of critical care time spent on his bedside today. No procedures were performed during this time.
[2018-08-08 15:22] LABS: CALCIUM LEVEL 8.2 MG/DL (8.5-10.1); CREATININE FOR GFR 3.03 MG/DL (0.70-1.30); GLOMERULAR FILTRATION RATE 23.5 (>60); MAGNESIUM LEVEL 2.7 MG/DL (1.8-2.4); PHOSPHORUS LEVEL 3.2 MG/DL (2.5-4.9); POTASSIUM SERUM 4.2 MEQ/L (3.5-5.1)
[2018-08-08] MEDS: fentaNYL 100 MCG/2 ML INJECTION (J3010) IV PRN (15:36)
--- NOTE | 2018-08-08 16:43 | IPN ---
DATE: 08/08/2018 Mr. Shipman is seen at bedside in the intensive care unit. He remains on continuous venovenous hemodialysis (CVVHD) and is still anuric. His blood pressure is much better now and he is off vasopressin today. Yesterday, Levophed was stopped. We have been able to remove some fluid as his blood pressure has been stable and nursing staff reports that this morning his central venous pressure (CVP) was only 8. The patient is still on the ventilator with 35% FIO2 and no improvement in his mentation. PHYSICAL EXAMINATION: On physical examination, temperature 99 degrees Fahrenheit, heart rate 98 per minute and respiratory rate 32 per minute. Blood pressure 101/48 mmHg and oxygen saturation 95% on 35% oxygen on the ventilator. Head is atraumatic. Endotracheal and nasogastric tube in place. Neck veins are difficult to be assessed. Central line is present in right internal jugular vein. Heart sounds are regular and tachycardiac. Lungs have good bilateral air entry. Abdomen is soft and nontender and bowel sounds are normal. Extremities have no cyanosis or clubbing. His discoloration on the toes has also improved. Neurologically, he remains unresponsive and spontaneous rolling of eyeballs, but no purposeful movement so far. LABORATORY DATA: Today's laboratories show WBC count 29.4, hemoglobin 9.1 and hematocrit 28.2. Platelets 99. Sodium 136, potassium 4.2, CO2 22, BUN 61 and creatinine 3.12. Glucose 343 and calcium 0.0. Magnesium level is 2.6 today. PROBLEMS: 1. Acute renal failure. The patient remains anuric and dialysis-dependent. He is still on continuous venovenous hemodialysis (CVVHD) due to low blood pressure. He was on pressors until this morning and we will see how he does for the next 24 hours. If he remains very stable hemodynamically then we will consider to stop CVVHD and switch him to regular dialysis. At present, we have renewed his orders for CVVHD for the next 24 hours. 2. Respiratory failure, most likely multifactorial related to his cardiac arrest and cardiogenic shock with multifocal pneumonia. His volume status seems to have improved and his reported central venous pressure (CVP) is 8 today. We will continue to remove fluid if his mean arterial pressure is above 75. We will try to maintain him even if his mean arterial pressure is between 55 and 75. 3. Septic shock and cardiogenic shock. He is hemodynamically more stable and currently off pressors. We will try to remove fluid only if his blood pressure is good, otherwise maintain him even. He remains on amiodarone. 4. Altered mentation. The patient had cardiac arrest and since then he has not responded. It is quite likely that he may have anoxic encephalopathy. At this point, we will continue with supportive care. Critical care is managing. I do not feel that there is any uremic element contributing to his altered mentation. 36 minutes of critical care time spent on the bedside and managing his the CVVHD. No other procedures were done during this time.
[2018-08-08] MEDS: FLUCONAZOLE 100 MG in APPROPRIATE DILUENT 1 EA IV SCH (16:45)
[2018-08-08] MEDS: MIDAZOLAM INJ 2 MG/2 ML VIAL (J2250) IV PRN ×2 (17:23→21:32)
[2018-08-08] MEDS ORDERED: NOREPINEPHRINE 4 MG/4 ML AMP As Ordered ONE (17:47)
[2018-08-08] MEDS: NOREPINEPHRINE BITARTRATE 16 MG in D5W 484 ML IV SCH ×2 (17:55→19:00)
[2018-08-08] MEDS: ACETAMINOPHEN 325 MG/10.15 ML UDC GT PRN (23:56)
[2018-08-09] VITALS (30 sets, daily range): BP systolic 78–143; BP diastolic 39–64; O2SAT 98
[2018-08-09] MEDS: PIPERACILLIN/TAZOBACTAM SOD 3.375 GM in D5W MINI-BAG PLUS 50 ML IV SCH ×4 (00:01→19:10)
[2018-08-09 01:56] LABS: HEMATOCRIT 27.7 % (42.0-52.0); HEMOGLOBIN 8.9 g/dl (13.5-17.5); IONIZED CALCIUM 4.4 MG/DL (4.5-5.3); MEAN CORPUSCULAR HEMOGLOBIN 29.5 pg (27.0-33.0); MEAN CORPUSCULAR HGB CONC 32.1 g/dl (32.0-36.5); MEAN CORPUSCULAR VOLUME 91.7 fl (80.0-96.0); RED BLOOD COUNT 3.02 10^6/uL (4.30-6.10)
[2018-08-09] MEDS: METOCLOPRAMIDE INJ 10MG/2ML VIAL (J2765) IV SCH ×3 (01:59→17:23)
[2018-08-09 02:27] LABS: PLATELET COUNT, AUTOMATED 99 10^3/uL (150-450)
[2018-08-09 02:28] LABS: WHITE BLOOD COUNT 32.4 10^3/uL (4.0-10.0)
[2018-08-09 02:51] LABS: CALCIUM LEVEL 7.7 MG/DL (8.5-10.1); CREATININE FOR GFR 3.05 MG/DL (0.70-1.30); GLOMERULAR FILTRATION RATE 23.3 (>60); MAGNESIUM LEVEL 2.5 MG/DL (1.8-2.4); PHOSPHORUS LEVEL 2.8 MG/DL (2.5-4.9); POTASSIUM SERUM 4.1 MEQ/L (3.5-5.1)
[2018-08-09] MEDS ORDERED: CALCIUM GLUCONATE 1,000 MG in D5W MINI-BAG PLUS 100 ML IV ONE (03:00)
[2018-08-09] MEDS: AMIODARONE 200 MG TAB (PACERONE) GT SCH ×3 (05:06→21:37)
[2018-08-09] MEDS: SODIUM CHLORIDE 0.9% INJ 10 ML SYR IV SCH ×3 (05:07→21:39)
[2018-08-09] MEDS: HumaLOG INSULIN (NovoLOG) PER UNIT SC SCH ×3 (05:07→17:44)
[2018-08-09 05:30] LABS: ALBUMIN 1.5 GM/DL (3.2-5.2); BILIRUBIN,TOTAL 4.5 MG/DL (0.2-1.0); CREATININE FOR GFR 2.98 MG/DL (0.70-1.30); PHOSPHORUS LEVEL 3.1 MG/DL (2.5-4.9); POTASSIUM SERUM 4.3 MEQ/L (3.5-5.1); TOTAL PROTEIN 5.7 GM/DL (6.4-8.2)
[2018-08-09] MEDS: ASPIRIN 81 MG CHEW TABLET NG SCH ×2 (08:29→21:37)
[2018-08-09] MEDS: BISOPROLOL FUM 2.5 MG PER 1/2TAB GT SCH ×2 (08:29→21:37)
--- NOTE | 2018-08-09 08:29 | REP ---
Portable chest x-ray: Single view. 06:51 a.m. of August,. History: Intubated patient. Comparison study to August 26, 2018 at 06:47 a.m.. Findings: Endotracheal tube remains in good position at the level of proximal clavicles. NG tube enters left upper quadrant of the abdomen. A multi lead pacemaker is seen in the right heart via the left side. A right internal jugular central venous line terminates in the expected location of the superior vena cava. A midline catheter is noted in the right axilla. There is discoid atelectasis in the right lung base. Hazy opacity at the left lung base obscures the diaphragm consistent with a small left pleural effusion. Electronically Signed by Everett Kent MD 08/09/2018 08:20 A
[2018-08-09] MEDS: CHLORHEXIDINE GLUCONATE 0.12 % 15ML UDC (PERIDEX ORAL RINSE) MT SCH ×2 (08:31→21:38)
[2018-08-09] MEDS: CLOPIDOGREL 75 MG TAB PO SCH (08:32)
[2018-08-09] MEDS: PANTOPRAZOLE 40MG INJ (PROTONIX) (C9113) IV SCH (08:34)
[2018-08-09] MEDS: levETIRAcetam INJection 500 MG in D5W MINI-BAG PLUS 100 ML IV SCH ×2 (08:37→21:38)
[2018-08-09] MEDS: ALBUTEROL SULFATE 2.5 MG/0.5 ML INH NEB SOLN NEB SCH ×4 (08:46→19:53)
[2018-08-09] MEDS ORDERED: SODIUM CHLORIDE 0.9% INJ 10 ML SYR IV PRN (10:15)
--- NOTE | 2018-08-09 11:11 | CCN ---
DATE: 08/09/2017 START TIME: 951 STOP TIME: 1026 I again attended Dae Shipman here in the intensive care unit. The patient has been examined and the chart reviewed. I have spoken at length with his fiancee at the bedside. He remains on fluconazole, Zosyn and vancomycin which he got as a one time dose pending final cultures. T-max overnight 100 degrees. Blood pressure 90 to 120s. He has been able to be weaned off of vasopressors. Heart rate generally in the 80s. Generally a paced rhythm. Respiratory rate remains 30 to 34. He remains on continuous renal replacement therapy (CRRT). Fluid was removed yesterday, a little over 2 liters. Most recent laboratories show a white blood cell count of 13.4, hemoglobin 8.9, platelet count 99,000. No differential today. Sodium 137, potassium 4.3, chloride 102, CO2 23, BUN64, creatinine 2.98, glucose 289, calcium 8. LFTs reviewed. Albumin 1.5. Arterial blood gas done on assist control, rate of 30, tidal volume 450, PEEP 8, FiO2 of 30% has a pH of 7.449, PCO2 of 30.1 and pO2 of 86.9, saturation 96.3%. On exam, he is ill appearing. Roving eye movements. He does not follow commands. Pupils do react. He over breathes the ventilator. He has a cough and a gag, but they are weak. Membranes are moist. Chest shows symmetric expansion. There are some rhonchi that generally clear with suctioning. There is some dependent crackles, especially in the early opening phase. No other focal adventitious breath sounds are identified. Cardiac exam is generally regular. Peripheral pulses markedly diminished, mild edema is unchanged. Abdomen mildly distended. There are faint bowel sounds. No convincing organomegaly or masses. Extremities show no mottling. No significant clubbing. Neurologically as outlined above and essentially is unresponsive. The most pressing problems requiring my presence at the bedside: 1. Respiratory failure requiring mechanical ventilatory support. 2. Encephalopathy, anoxic versus toxic metabolic. 3. Coronary artery disease. 4. Renal failure, on CRRT. 5. DO NOT RESUSCITATE status. 6. Insulin dependent diabetes mellitus. He remains on ulcer and deep vein thrombosis (DVT) prophylaxis. He is tolerating tube feeds. I have spoken at length as well with nephrology. At this point, we will continue as outlined above. I had a discussion with his geovannie at the bedside this morning regarding the lack of progress regarding his mental status and certainly this portends a much poorer prognosis. She conveys understanding. I await decision regarding when to interrupt his CRRT and will defer to nephrology in that regard. He has an elevated white count with only a low grade fever. If this does not respond to the change in his antimicrobials, we may need to change all of his invasive lines if the family wishes to continue full level support at this point. In view of the above, however, his prognosis remains grim and I do not believe there is significant chance for meaningful neurologic recovery in view of the above. Will proceed as outlined above. I left the bedside at 1026 hours. 34 minutes of critical care time delivered at the bedside, not including procedures.
[2018-08-09 14:23] LABS: IONIZED CALCIUM 4.4 MG/DL (4.5-5.3)
[2018-08-09 14:43] LABS: HEMATOCRIT 25.7 % (42.0-52.0); HEMOGLOBIN 8.4 g/dl (13.5-17.5); MEAN CORPUSCULAR HEMOGLOBIN 29.8 pg (27.0-33.0); MEAN CORPUSCULAR HGB CONC 32.7 g/dl (32.0-36.5); MEAN CORPUSCULAR VOLUME 91.1 fl (80.0-96.0); PLATELET COUNT, AUTOMATED 105 10^3/uL (150-450); RED BLOOD COUNT 2.82 10^6/uL (4.30-6.10)
[2018-08-09 14:54] LABS: WHITE BLOOD COUNT 33.9 10^3/uL (4.0-10.0)
[2018-08-09 14:59] LABS: CALCIUM LEVEL 7.9 MG/DL (8.5-10.1); MAGNESIUM LEVEL 2.8 MG/DL (1.8-2.4)
[2018-08-09] MEDS ORDERED: CALCIUM GLUCONATE 1,000 MG in NS 100 ML IV ONE (15:00)
[2018-08-09 15:55] LABS: CALCIUM LEVEL 7.9 MG/DL (8.5-10.1); CREATININE FOR GFR 3.04 MG/DL (0.70-1.30); GLOMERULAR FILTRATION RATE 23.4 (>60); POTASSIUM SERUM 4.3 MEQ/L (3.5-5.1)
[2018-08-09] MEDS: FLUCONAZOLE 100 MG in APPROPRIATE DILUENT 1 EA IV SCH (16:05)
[2018-08-09] MEDS: fentaNYL 100 MCG/2 ML INJECTION (J3010) IV PRN ×2 (16:51→16:56)
[2018-08-09] MEDS: ACETAMINOPHEN 325 MG/10.15 ML UDC GT PRN (17:02)
[2018-08-09] MEDS: MIDAZOLAM INJ 2 MG/2 ML VIAL (J2250) IV PRN (17:22)
--- NOTE | 2018-08-09 19:15 | IPN ---
DATE: 08/09/2018 Mr. Shipman is seen this morning on his bedside in intensive care unit. He remains on continuous veno-venous hemodialysis (CVVHD) due to oliguric acute renal failure due to sepsis and following cardiac arrest. The patient remains on the ventilator and has not made any progress in his mentation. He is not receiving any sedation, but he is totally unresponsive. His eyes are open, and eyeballs roll spontaneously but no purposeful movement and not able to follow any commands. He is off pressors, but nursing staff reports that through the night he did require pressors on and off, but this morning he is again off. He has a rectal tube, which is draining liquid stool, and he is tolerating his tube feeding. PHYSICAL EXAMINATION: Temperature 99.9 degrees Fahrenheit, heart rate 97 per minute, respiratory rate 30 per minute, blood pressure 114/48 mm of mercury, and oxygen saturation 94% on 30% FiO2. Head is atraumatic. Neck veins are difficult to be assessed. A central line in right internal jugular vein is present. Endotracheal tube and nasogastric tube are in place. Heart sounds are somewhat tachycardiac but without a pericardial friction rub. Lungs have good bilateral air entry. Abdomen is soft, and bowel sounds present. Extremities have no cyanosis or clubbing. Neurologically, he is totally unresponsive. Today's labs show WBC count 32.4, hemoglobin 8.9, hematocrit 27.7, platelets 99,000. Today's chemistry showed sodium 137, potassium 4.3, CO2 of 23, BUN 64, and creatinine 2.98. Glucose 289 and calcium 98.0. Phosphorus is 3.1 and magnesium 2.8. AST 560, ALT 688, alkaline phosphatase 294, albumin is 1.5. PROBLEMS: 1. Acute renal failure. The patient remains oliguric, and at present he is receiving CVVHD on his bedside. He is currently off pressors; however, blood pressure is still low, so we will continue with the same. Once he is hemodynamically more stable, then we will consider to stop CVVHD and switch him to regular hemodialysis. 2. Respiratory failure. His volume status seems to be much improved, and he is on 30% oxygen. His blood pressure has been low, so we are not going to remove any more fluid today. 3. Septic shock and cardiogenic shock. The patient remains on broad-spectrum antibiotics, and blood pressure is much better today. He is off pressors at present, however, has required pressors on and off. We will continue to monitor him closely, particularly as long as the dialysis is in progress. 4. Anemia. At present, his anemia is stable, and we will continue to watch. 5. Leukocytosis and sepsis. No obvious source; however, his white cell count continues to get worse. Fluconazole has already been added while he has been on Zosyn. Critical care service is managing his antibiotics. 6. Unresponsiveness. Most likely the patient has anoxic encephalopathy and remains unresponsive. He is DO NOT RESUSCITATE, and family has not made any decision about withdrawing care at this time. Critical care time of 32 minutes spent, and no procedures performed during this time.
[2018-08-10] VITALS (63 sets, daily range): BP systolic 68–162; BP diastolic 35–86; O2SAT 96–97
[2018-08-10] MEDS: HumaLOG INSULIN (NovoLOG) PER UNIT SC SCH ×3 (00:11→11:37)
[2018-08-10] MEDS: ACETAMINOPHEN 325 MG/10.15 ML UDC GT PRN ×3 (00:11→15:23)
[2018-08-10] MEDS: PIPERACILLIN/TAZOBACTAM SOD 3.375 GM in D5W MINI-BAG PLUS 50 ML IV SCH ×4 (00:56→20:25)
[2018-08-10] MEDS: MIDAZOLAM INJ 2 MG/2 ML VIAL (J2250) IV PRN ×4 (01:18→18:33)
[2018-08-10] MEDS: NOREPINEPHRINE BITARTRATE 16 MG in D5W 484 ML IV SCH ×2 (02:30→11:58)
[2018-08-10 02:32] LABS: IONIZED CALCIUM 4.4 MG/DL (4.5-5.3)
[2018-08-10 02:32] LABS: HEMATOCRIT 24.8 % (42.0-52.0); MEAN CORPUSCULAR HEMOGLOBIN 29.4 pg (27.0-33.0); MEAN CORPUSCULAR HGB CONC 32.3 g/dl (32.0-36.5); MEAN CORPUSCULAR VOLUME 91.2 fl (80.0-96.0); PLATELET COUNT, AUTOMATED 134 10^3/uL (150-450); RED BLOOD COUNT 2.72 10^6/uL (4.30-6.10)
[2018-08-10] MEDS: METOCLOPRAMIDE INJ 10MG/2ML VIAL (J2765) IV SCH ×3 (02:33→18:27)
[2018-08-10 02:42] LABS: WHITE BLOOD COUNT 37.7 10^3/uL (4.0-10.0)
[2018-08-10 03:31] LABS: CALCIUM LEVEL 7.4 MG/DL (8.5-10.1); CREATININE FOR GFR 3.04 MG/DL (0.70-1.30); GLOMERULAR FILTRATION RATE 23.4 (>60); MAGNESIUM LEVEL 2.8 MG/DL (1.8-2.4); PHOSPHORUS LEVEL 3.2 MG/DL (2.5-4.9); POTASSIUM SERUM 4.4 MEQ/L (3.5-5.1)
[2018-08-10] MEDS ORDERED: CALCIUM GLUCONATE 1,000 MG in NS 100 ML IV ONE (04:00)
[2018-08-10 06:15] LABS: ABG O2 SATURATION 97.3 % (95.0-99.0)
[2018-08-10] MEDS: AMIODARONE 200 MG TAB (PACERONE) GT SCH ×3 (06:15→21:26)
[2018-08-10] MEDS: SODIUM CHLORIDE 0.9% INJ 10 ML SYR IV SCH ×3 (06:15→21:27)
[2018-08-10 06:17] LABS: ABG BASE EXCESS -3.8 (-2.0-2.0); ABG HCO3 19.4 MEQ/L (22.0-26.0); ABG PARTIAL PRESSURE CO2 28.4 mmHg (35.0-45.0); ABG PARTIAL PRESSURE O2 94.4 mmHg (75.0-100.0); ABG STANDARD HCO3 21.3 MEQ/L (22.0-26.0); ABG TOTAL CO2 20.3 MEQ/L (22.0-29.0); ABG pH (ARTERIAL) 7.453 UNITS (7.350-7.450)
[2018-08-10 07:07] LABS: ALBUMIN 1.5 GM/DL (3.2-5.2); BILIRUBIN,TOTAL 3.3 MG/DL (0.2-1.0); CALCIUM LEVEL 7.5 MG/DL (8.5-10.1); CREATININE FOR GFR 2.93 MG/DL (0.70-1.30); GLOMERULAR FILTRATION RATE 24.5 (>60); PHOSPHORUS LEVEL 3.7 MG/DL (2.5-4.9); POTASSIUM SERUM 4.6 MEQ/L (3.5-5.1); TOTAL PROTEIN 5.1 GM/DL (6.4-8.2)
--- NOTE | 2018-08-10 08:07 | REP ---
Portable chest x-ray: Single view. History: Intubation. Comparison chest x-ray: August 09, 2018. Findings: EKG monitoring electrodes overlie the chest. Endotracheal tube is seen at the level of proximal clavicles. NG tube enters left upper quadrant of the abdomen. A right internal jugular central venous catheter is seen terminating in the expected location of the superior vena cava. A multi lead pacemaker is again noted in the right heart via the left side. There is evidence of left pleural effusion. Right lung base is improved. No new infiltrate or atelectasis seen. Electronically Signed by Everett Kent MD 08/10/2018 07:59 A
[2018-08-10] MEDS: ALBUTEROL SULFATE 2.5 MG/0.5 ML INH NEB SOLN NEB SCH ×4 (08:49→20:38)
[2018-08-10] MEDS: PANTOPRAZOLE 40MG INJ (PROTONIX) (C9113) IV SCH (09:15)
[2018-08-10] MEDS: CHLORHEXIDINE GLUCONATE 0.12 % 15ML UDC (PERIDEX ORAL RINSE) MT SCH ×2 (09:18→21:27)
[2018-08-10] MEDS: BISOPROLOL FUM 2.5 MG PER 1/2TAB GT SCH (09:18)
[2018-08-10] MEDS: ASPIRIN 81 MG CHEW TABLET NG SCH ×2 (09:18→21:26)
[2018-08-10] MEDS: CLOPIDOGREL 75 MG TAB PO SCH (09:21)
[2018-08-10] MEDS: levETIRAcetam INJection 500 MG in D5W MINI-BAG PLUS 100 ML IV SCH ×2 (09:35→21:26)
--- NOTE | 2018-08-10 12:20 | CCN ---
DATE: 08/10/2018 Mr. Shipman is seen in the intensive care unit (ICU). He is essentially nonresponsive, but he did appear to be able to react to pain when his left lower quadrant was palpated. Also may have had some blinking when commanded but this was unclear. The patient does continue to have intermittent fevers with a maximum temperature (t-max) earlier this morning of 101.3. He did receive Tylenol and currently he is afebrile. His white blood cell count does continue to trend up and this morning was 37.7. His most recent blood culture was from 08/08/2018 and so far shows no growth after 24 hours. He had a Clostridium (C.) difficile study done on 08/08/2018 that was negative. Sputum culture grew yeast, as well as Strep agalactiae group B. He is currently getting Zosyn and did receive doses of vancomycin, it looks like the most recent vancomycin dose was given on 08/08/2018. He is also on fluconazole for the yeast in his sputum. He is being followed by nephrology and is getting CRRT. He is being fed with Nepro at 70. PHYSICAL EXAMINATION: Vitals: Temperature 99.9, T-max earlier at 0930 hours was 101.3, pulse 114, respiratory rate 31, blood pressure was 89/50. Pulse ox 97%. The patient is on ventilator with pressure-like regulated volume control (PRVC) mode with tidal volume of 450, a rate of 30, PEEP of 5, FIO2 of 30. GENERAL: The patient is essentially nonresponsive to voice. It was unclear whether or not he could close his eyes or blink is eyes when commanded. He did respond to palpation of the left lower quadrant by wincing. HEENT: Head is normocephalic, atraumatic. The patient is currently intubated. Moist mucous membranes. Neck is supple with cervical lymphadenopathy. Trachea is midline. No jugular venous distention (JVD). PULMONARY: Coarse breath sounds without any obvious wheezing or rhonchi. CARDIAC: Regular rate and rhythm. ABDOMEN: Hypoactive bowel sounds, soft. The patient does appear to have some tenderness to palpation over the left lower quadrant. Some slight distension. EXTREMITIES: No clubbing, cyanosis or edema. LABORATORY DATA: WBC 37.7, hemoglobin 8.0, hematocrit 24.8, platelets 134. Sodium 135, potassium 4.6, chloride 102, carbon dioxide 21, BUN 66, creatinine 2.93, glucose 395, calcium 7.5, phosphorus 3.7, total bilirubin 3.3, AST 258, ALT 447, alkaline phosphatase 366, lactate dehydrogenase 790, total creatinine kinase 221, total protein 5.1, albumin 1.5, triglycerides 483, cholesterol 99. ABG pH 7.453, pCO2 28.4, pO2 94.4, HCO3 19.4. Chest x-ray shows endotracheal tube in place. Nasogastric tube in place. There is a right central line in the internal jugular. There is a pacemaker noted. There is a slight left pleural effusion. There is a right middle lobe infiltrate, which appears to be improved compared to yesterday's film. ASSESSMENT AND PLAN: 1. Acute respiratory failure. The patient remains on mechanical ventilation. He is currently on pressure-regulated volume control. 2. Cardiogenic shock. The patient is status post non ST elevation myocardial infarction [id number] myocardial infarction (NSTEMI). He is off pressors presently. His blood pressure is soft. Plan is to stop his Zebeta. He is currently being dialyzed with CRRT. Nephrology is following. 3. Acute renal failure. As noted above, the patient is being followed by nephrology and is currently receiving CRRT. He is currently off pressors. His Zebeta will be stopped. 4. Hypoalbuminemia / profound malnourishment. The patient is being fed with Nepro. Continue to monitor. 5. Encephalopathy. The patient continues to remain essentially unresponsive. He is currently DO NOT RESUSCITATE. There is still concern that the patient will not have meaningful neurologic recovery and overall prognosis is poor. 6. Hyperglycemia. The patient's blood sugars continue to be elevated. He will be started on an insulin drip. Monitor closely. 7. Leukocytosis. The patient has been intermittently febrile and has had progressive increase of his white blood cell count. We will collect blood cultures of the arterial line and the dialysis catheter. I will do blood cultures, as well as fungal cultures from the blood. Additionally, the patient does have a right central line that has been in place for a while now. Plan will be to place a left central line. Once that is in and functioning then would remove and discontinue the right central line. 8. Anemia. The patient's hemoglobin has been trending down. Continue to monitor closely and consider transfusion if needed. 9. Gastrointestinal prophylaxis. The patient is on Protonix. 10. Deep vein thrombosis (DVT) prophylaxis. TEDs and SCDs are ordered. Total critical care time was 1 hour.
[2018-08-10] MEDS: GASTROGRAFIN SOLUTION 30ML PO SCH ×2 (13:14→13:51)
--- NOTE | 2018-08-10 13:20 | REP ---
Portable chest x-ray: Single view. 01:00 p.m. film. History: Central line placement. Comparison chest x-ray: 06:50 a.m. on August 26, 2018. Findings: Endotracheal tube remains in good position at the level of the transverse aorta. An NG tube enters left upper quadrant. A multi lead pacemaker is again noted. There are bilateral internal jugular central venous lines. The right terminates in the expected location of the superior vena cava. The left central venous line terminates at the junction of the SVC and brachiocephalic vein. There is no evidence of pneumothorax on either side. Homogeneous opacity overlying the heart at the left base suggests an small left pleural effusion and/or atelectasis in the left lower lobe. Electronically Signed by Everett Kent MD 08/10/2018 01:10 P
--- NOTE | 2018-08-10 13:33 | RO ---
DATE OF PROCEDURE: 08/10/2018 PREPROCEDURE DIAGNOSIS: Hypotension. POSTPROCEDURE DIAGNOSIS: Hypotension. INDICATION: Vascular access. PROCEDURE: Central line placement. PROCEDURALIST: TIFFANIE Hubbard WILD LIFE MANAGER: Yousif Persaud DO CONSENT: The patient's daughter uSmmer Shipman gave verbal consent as the patient was unresponsive and unable to consent himself. PROCEDURE SUMMARY: Time-out was performed. Full sterile technique was utilized throughout the procedure. The left chest and neck region were prepped using chlorhexidine . The patient was draped in sterile fashion using fenestrated drape. The left internal jugular vein was identified using ultrasound. Under the ultrasound, an introducer needle was inserted into the left internal jugular vein under direct ultrasound visualization. Syringe was removed and the guidewire was advanced into the introducer needle. The introducer needle was then exchanged over the guidewire. A small incision was made in the skin surface with a scalpel and dilator was exchanged over the guidewire. After appropriate dilation was obtained, the dilator was removed with the exchange of the wire for triple lumen central venous catheter. The wire was removed and the catheter was sutured in place at 15 cm. A sterile dressing was placed over the catheter at the insertion site. The patient tolerated the procedure well without any hemodynamic compromise. At the time of the procedure completion, all ports were aspirated and flushed properly. Postprocedure chest x-ray showed the line in good position in the superior vena cava with no evidence of pneumothorax. MTDD
[2018-08-10] MEDS ORDERED: VANCOMYCIN HCL 1,000 MG, VIAL MATE ADAPTER 1 EACH in D5W 250 ML IV ONE (15:00)
[2018-08-10] MEDS: INSULIN HUMAN REGULAR 100 UNITS in NS 99 ML IV SCH (15:31)
--- NOTE | 2018-08-10 15:52 | REP ---
CT abdomen and pelvis with IV and oral contrast: History: Abdominal pain. Increased white blood cell count. Comparison CT study is from November 23, 2016. CT contrast dose: Isovue [address] findings: Preliminary digital pcb design engineer radiograph demonstrates mild gaseous distension of the transverse colon and sigmoid colon consistent with a focal ileus. There is a right femoral venous line. There is evidence of a Sahni catheter. On axial CT images there is extensive segmental atelectasis in the lower lobes bilaterally. There appears to be essentially lobar atelectasis in the left lower lobe. There are small amounts of pleural fluid present bilaterally. There is no focal liver or spleen lesion. There is extensive edema within and surrounding the pancreas consistent with acute pancreatitis. There is some periportal edema. Small bowel mesenteric edema is seen. There is minimal pericolic gutter fluid bilaterally. The kidneys enhance symmetrically and are morphologically intact. No adrenal lesion is seen. Extensive vascular calcification is noted in the aorta. A normal appendix is seen. Sahni catheter is seen emptying the bladder. There is a rectal tube in place. A right inguinal hernia is again noted transmitting abdominal fat. There is some fluid in this spermatic canal on the right as well. Impression: Findings consistent with acute pancreatitis with fairly advanced diffuse peripancreatic edema. No abscess or evidence of significant pancreatic necrosis seen. Mild ileus. Right inguinal hernia transmitting abdominal fat. There is some fluid in the right inguinal canal as well. Electronically Signed by Everett Kent MD 08/10/2018 07:23 P
[2018-08-10] MEDS ORDERED: NS 1,000 ML IV ONE (16:00)
[2018-08-10 16:09] LABS: IONIZED CALCIUM 4.5 MG/DL (4.5-5.3)
[2018-08-10 16:16] LABS: HEMATOCRIT 25.3 % (42.0-52.0); HEMOGLOBIN 8.1 g/dl (13.5-17.5); MEAN CORPUSCULAR HEMOGLOBIN 29.5 pg (27.0-33.0); PLATELET COUNT, AUTOMATED 144 10^3/uL (150-450); RED BLOOD COUNT 2.75 10^6/uL (4.30-6.10)
[2018-08-10 16:17] LABS: WHITE BLOOD COUNT 30.8 10^3/uL (4.0-10.0)
--- NOTE | 2018-08-10 16:18 | REP ---
Chest one-view HISTORY: respiratory distress Comparison: 01:00 p.m. 08/10/2018 The left costophrenic angle is not seen. Patchy density is present in the lower lobes consistent with atelectasis or infiltrate unchanged on the left and new on the right. The heart is normal in size. The pulmonary vasculature is normal in appearance. An ET tube, NG tube, central venous line and and cardiac pacemaker are present. Impression: Left lower lobe atelectasis or infiltrate unchanged compared to the previous study. There is new atelectasis or infiltrate in the right lower lobe. Electronically Signed by David Joel MD 08/10/2018 04:10 P
[2018-08-10 16:36] LABS: BILIRUBIN,DIRECT 2.4 MG/DL (0.0-0.2); CREATININE FOR GFR 3.43 MG/DL (0.70-1.30); GLOMERULAR FILTRATION RATE 20.4 (>60); MAGNESIUM LEVEL 2.8 MG/DL (1.8-2.4); PHOSPHORUS LEVEL 4.6 MG/DL (2.5-4.9); POTASSIUM SERUM 4.7 MEQ/L (3.5-5.1)
[2018-08-10] MEDS: FLUCONAZOLE 100 MG in APPROPRIATE DILUENT 1 EA IV SCH (16:50)
[2018-08-10] MEDS: INSULIN IV RATE CHANGE DOCUMENTATION ML/HR XX SCH ×2 (17:00→18:59)
--- NOTE | 2018-08-10 18:03 | CCN ---
DATE: 08/10/2018 I reviewed the abdominal CT scan that was just performed on Dae Shipman. Formal interpretation is pending; however, there is diffuse pancreatic inflammation. I have ordered amylase, lipase, and a total bilirubin. Differential of pancreatitis is wide; however, the patient does have a history of alcohol abuse. The patient does have some increased hypoxia on return from CT imaging. Chest x-ray was performed, which did not show any dislodging of the tube or evidence of pneumothorax. The patient is spiking a fever. There is evidence of pulse pressure variation on the arterial line, suggesting that he would be responsive to fluid administration; therefore, this is being initiated. Will continue to monitor, workup the cause of pancreatitis. MTDD
--- NOTE | 2018-08-10 19:03 | REP ---
LIMITED ABDOMEN ULTRASOUND: HISTORY: Acute pancreatitis. COMPARISON: CT 08/10/2018. There is mild contraction of the gallbladder. Floating cholesterol crystals are present. There is no cholelithiasis. The gallbladder wall measures 2 mm. The common bile duct measures 4.2 mm. There is fatty infiltration of the liver. The pancreas is not seen due to overlying bowel gas. The right kidney appears enlarged. The right kidney measures 6.7 cm in transverse x 5 cm in AP x 15.8 cm in cephalocaudal dimensions. There is no hydronephrosis or mass. A small amount of ascites is present in the right upper quadrant. IMPRESSION: 1. There are cholesterol crystals in the gallbladder. There is no cholelithiasis. 2. Fatty infiltration of the liver. 3. There is a small amount of right upper quadrant ascites. Electronically Signed by David Joel MD 08/10/2018 07:08 P
--- NOTE | 2018-08-10 21:45 | ECGEPIP ---
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 Electronically Signed On 08-10-2018 21:45:06 EST by Vj Giordano
--- NOTE | 2018-08-10 21:55 | IPN ---
CRITICAL CARE NOTE DATE: 08/10/2018 Mr. Shipman is seen this morning on his bedside in intensive care unit. CRRT is still in progress. Nursing staff reports that this morning he has not required pressors. He has had low grade fever and leukocytosis has been worsening. Nursing staff also reported the patient did have some response to verbal stimuli where he was able to close his eyes on command and also nodded his head in response to couple of questions. He has been tolerating his tube feeding and continues to have liquid stools. PHYSICAL EXAMINATION: On physical exam temperature 100 degrees Fahrenheit, heart rate 89 per minute and respiratory rate 30 per minute. Blood pressure 108/49 mmHg and oxygen saturation 98%. There is minimal urine output. Yesterday his volume was maintained with a CRRT and no net fluid was removed. His head is atraumatic. Oral mucosa is dry. Nasogastric and endotracheal tubes are in place. His neck veins are not abnormally distended. He still has a right internal jugular vein triple-lumen catheter and right femoral vein dialysis catheter right axillary arterial line. His heart sounds are regular and lungs have good bilateral air entry. Abdomen is soft and tender to my deep palpation. Bowel sounds are present. Extremities: Have no cyanosis or clubbing. Neurologically, he is minimally responsive where he did close eyes on command and then opened. He is not moving any of his limbs so far. Today's labs show WBC count 37.7, hemoglobin 8.0 and hematocrit 24.8. Platelets 134. Sodium 135, potassium 4.6, CO2 21, BUN 66 and creatinine 2.93. Glucose 395 and calcium 7.5. AST is 258, ALT 447 and alkaline phosphatase 366. PROBLEMS: 1. Oliguric acute renal failure most likely related to sepsis and cardiogenic shock. The patient was on pressors. However, now he is off pressors. His volume status seems to be very well compensated though we did not have a CVP available at this morning. I have been since told that CVP was down to 7. We are again not going to remove any net fluid and will maintain him even or make him more positive depending upon his blood pressure. 2. Leukocytosis and abdominal tenderness. I am concerned about intra-abdominal process and a CT scan of abdomen and pelvis with IV contrast is being ordered. He has been on broad-spectrum antibiotics including Zosyn and Ditropan. 3. Anemia. At present his anemia is stable and does not need any urgent transfusion. He is likely to require transfusion as his anemia is going to get worse with time. 4. Respiratory failure. The patient remains ventilator dependent and his mentation is only slightly improved. It remains to be seen if he will be able to wean off or require tracheostomy. 5. Nutrition. He is tolerating his tube feeding. 6. Electrolytes. At this point his electrolytes are all being maintained within the normal range with CRRT. We renewed his CRRT orders. 38 minutes of critical care time spent on the bedside during which no procedures were performed. Dictation
[2018-08-11] VITALS (38 sets, daily range): BP systolic 70–149; BP diastolic 38–71; O2SAT 98
[2018-08-11] MEDS: PIPERACILLIN/TAZOBACTAM SOD 3.375 GM in D5W MINI-BAG PLUS 50 ML IV SCH ×4 (01:22→18:59)
[2018-08-11] MEDS: METOCLOPRAMIDE INJ 10MG/2ML VIAL (J2765) IV SCH (02:13)
[2018-08-11 02:14] LABS: IONIZED CALCIUM 3.3 MG/DL (4.5-5.3)
[2018-08-11 02:33] LABS: MAGNESIUM LEVEL 1.8 MG/DL (1.8-2.4)
[2018-08-11 02:42] LABS: HEMATOCRIT 20.5 % (42.0-52.0); MEAN CORPUSCULAR HEMOGLOBIN 29.9 pg (27.0-33.0); MEAN CORPUSCULAR HGB CONC 32.2 g/dl (32.0-36.5); MEAN CORPUSCULAR VOLUME 92.8 fl (80.0-96.0); PLATELET COUNT, AUTOMATED 141 10^3/uL (150-450); RED BLOOD COUNT 2.21 10^6/uL (4.30-6.10)
[2018-08-11 02:44] LABS: ALBUMIN 1.2 GM/DL (3.2-5.2); BILIRUBIN,TOTAL 2.1 MG/DL (0.2-1.0); CREATININE FOR GFR 2.33 MG/DL (0.70-1.30); GLOMERULAR FILTRATION RATE 31.9 (>60)
[2018-08-11 02:57] LABS: HEMOGLOBIN 6.6 g/dl (13.5-17.5)
[2018-08-11 03:06] LABS: WHITE BLOOD COUNT 31.7 10^3/uL (4.0-10.0)
[2018-08-11] MEDS ORDERED: MAG SULF IV ONE (04:00)
[2018-08-11] MEDS ORDERED: DILUENT IV ONE (04:00)
[2018-08-11] MEDS ORDERED: CALCIUM GLUCONATE 1,000 MG in NS 100 ML IV ONE ×3 (04:00→18:00)
[2018-08-11 05:45] LABS: ABG BASE EXCESS -3.4 (-2.0-2.0); ABG HCO3 20.2 MEQ/L (22.0-26.0); ABG O2 SATURATION 96.3 % (95.0-99.0); ABG PARTIAL PRESSURE CO2 31.5 mmHg (35.0-45.0); ABG PARTIAL PRESSURE O2 79.7 mmHg (75.0-100.0); ABG STANDARD HCO3 21.6 MEQ/L (22.0-26.0); ABG TOTAL CO2 21.2 MEQ/L (22.0-29.0); ABG pH (ARTERIAL) 7.425 UNITS (7.350-7.450)
[2018-08-11] MEDS: INSULIN IV RATE CHANGE DOCUMENTATION ML/HR XX SCH ×7 (06:02→22:48)
[2018-08-11] MEDS: INSULIN HUMAN REGULAR 100 UNITS in NS 99 ML IV SCH (06:03)
[2018-08-11] MEDS: SODIUM CHLORIDE 0.9% INJ 10 ML SYR IV SCH ×3 (06:04→21:15)
[2018-08-11 06:33] LABS: ALBUMIN 0.9 GM/DL (3.2-5.2); BILIRUBIN,TOTAL 1.8 MG/DL (0.2-1.0); CALCIUM LEVEL 5.4 MG/DL (8.5-10.1); CREATININE FOR GFR 1.89 MG/DL (0.70-1.30); GLOMERULAR FILTRATION RATE 40.6 (>60); PHOSPHORUS LEVEL 3.2 MG/DL (2.5-4.9); POTASSIUM SERUM 3.8 MEQ/L (3.5-5.1); TOTAL PROTEIN 3.5 GM/DL (6.4-8.2); VANCOMYCIN LEVEL TROUGH 10.7 UG/ML (10.0-20.0)
[2018-08-11] MEDS ORDERED: VANCOMYCIN INTERMITTENT/PULSE DOSING BY CLINICAL PHARMACIST PER DOSING PROTOCOL XX SCH (06:45)
[2018-08-11] MEDS: ACETAMINOPHEN 325 MG/10.15 ML UDC GT PRN (07:09)
[2018-08-11] MEDS ORDERED: VANCOMYCIN HCL 1,000 MG, VIAL MATE ADAPTER 1 EACH in D5W 250 ML IV ONE (08:00)
--- NOTE | 2018-08-11 08:28 | REP ---
Chest one-view HISTORY: Intubation Comparison: 08/10/2018 Patchy density is present in the lower lobes consistent with bibasilar atelectasis or infiltrates unchanged compared to the previous study. The heart is normal in size. The pulmonary vasculature is normal in appearance. An ET tube, NG tube ,central line and cardiac pacemaker are present. Impression: Bibasilar atelectasis or infiltrates unchanged compared to the previous study. Electronically Signed by David Joel MD 08/11/2018 08:18 A
[2018-08-11] MEDS: PANTOPRAZOLE 40MG INJ (PROTONIX) (C9113) IV SCH (09:21)
[2018-08-11] MEDS: levETIRAcetam INJection 500 MG in D5W MINI-BAG PLUS 100 ML IV SCH ×2 (09:23→21:18)
[2018-08-11] MEDS: CHLORHEXIDINE GLUCONATE 0.12 % 15ML UDC (PERIDEX ORAL RINSE) MT SCH ×2 (09:25→21:16)
[2018-08-11] MEDS: AMIODARONE 200 MG TAB (PACERONE) GT SCH ×2 (09:25→21:16)
[2018-08-11] MEDS: CLOPIDOGREL 75 MG TAB PO SCH (09:25)
[2018-08-11] MEDS: ASPIRIN 81 MG CHEW TABLET NG SCH ×2 (09:25→21:16)
[2018-08-11] MEDS ORDERED: CALCIUM GLUCONATE 1,000 MG in D5W MINI-BAG PLUS 100 ML IV ONE (10:00)
[2018-08-11] MEDS ORDERED: NS 1,000 ML IV ONE (10:15)
--- NOTE | 2018-08-11 10:38 | CCN ---
DATE: 08/11/2018 CRITICAL CARE NOTE Critical care time was 1 hour and 32 minutes. This excludes all procedures. Mr. Shipman is a 47-year-old male who has had an extensive hospitalization. Initially admitted with respiratory distress on 07/31/2018, suspected acute coronary syndrome. Since that time, he has had a significantly difficult course with persistent leukocytosis and fevers. On my arrival yesterday to the service, I worked up the elevated white count, clearly the patient was having abdominal pain for what appeared to be the first time. I believe he was volume depleted. His internal jugular (IJ) has been switched to a different site in case of this complicating his infectious picture. Cultures were taken off the dialysis catheter. He remains on Zosyn and vancomycin. No evidence of fungemia at this point in time, although fungal cultures are pending. Abdominal ultrasound yesterday was performed after findings of pancreatitis. There is no evidence of cholelithiasis. There is some right upper quadrant ascites which is almost expected. There is no evidence of common bile duct dilatation, no hydronephrosis of the right kidney. The patient remains hypotensive this morning. I was called due to a hemoglobin that dropped to 6.6. Central venous pressure is 7. He is biventricularly paced. He is unable to respond but does make eye contact and does track, which is more than what he was doing yesterday evening. Maximum temperature (T max) was at 1539 hours yesterday at 101.5. PHYSICAL EXAMINATION: Temperature now 99.0, pulse is 102, respiratory rate is 27, blood pressure is 131/66 with a mean arterial pressure of 87, oxygen saturation is 97% on 0.40 FiO2. HEENT: Sclerae are clear and anicteric. Pupils are reactive to light and symmetric approximately 6 mm. Tongue is midline. Endotracheal tube is in place. Neck is supple. There is no tracheal deviation. The left internal jugular (IJ) is without surrounding erythema or exudate. Lymph: No cervical, supraclavicular, or axillary lymphadenopathy. Cardiac: Tachycardiac, S1, S2 without audible murmur, rub or gallop. Point of maximum impulse (PMI) is displaced laterally. Pulmonary: Decreased breath sounds bilaterally without rales, rhonchi or wheezes. There is no accessory muscle use. The patient is tachypneic. Abdomen is less tender today. There does appear to be more tenderness on the left upper quadrant. Bowel sounds are hypoactive but present in all quadrants. There is no significant abdominal distension. There is minimal dullness to percussion of the flanks. The remainder of the abdomen is tympanic. Extremities: No cyanosis or clubbing. There is minimal edema. Skin: No rashes or jaundice. No bruising. There is no evidence of Janeway lesions. Musculoskeletal: Significant muscle wasting. No evidence of joint effusion or recent fracture. Laboratory evaluation shows a sodium 145, potassium 3.8, chloride 117, bicarbonate of 15. The patient has a persistent acidosis. Lactate is normal. BUN is 44, creatinine is down to 1.89, glucose is now 153 on an insulin drip of 6. Total bilirubin is down to 1.8, AST is down to 128, ALT down to 210. CK is normal at 118, hemoglobin low at 6.6 with a hematocrit of 20.5, platelet count of 141. White blood cell count is starting to trend down, although it is significantly elevated at 31.7. The blood cultures from yesterday are still pending. The tip of the catheter culture is still pending. Blood cultures were obtained both from the arterial line and the femoral dialysis catheter. IMAGING: Abdominal ultrasound as mentioned above. Abdomen CT shows diffuse pancreatitis with significant pancreatic edema without evidence of hemorrhage or cyst formation. Chest x-ray this morning shows adequate endotracheal tube placement. Pacer leads are in place. There is some perihilar fullness, blunting of the left costophrenic angle with probable left pleural effusion and increased cephalization without dense infiltrate. 1. Respiratory failure secondary to encephalopathy, severity of illness, pancreatitis and recent acute coronary syndrome. Will continue mechanical ventilation. I suspect the patient will likely need tracheostomy. This will be difficult in the face of anticoagulation for recent suspected acute coronary syndrome. Will discuss with family on Monday if he continues to require mechanical ventilation. 2. Pancreatitis. Amylase, lipase pending from this morning. No evidence of hemorrhage or pseudocyst yesterday. Will continue with aggressive fluid management, which may also prolong his mechanical ventilation. 3. Anemia. Blood transfusion provided today. The patient has been anemic; however not this anemic, has received a little bit more fluid. Will continue to monitor for signs and symptoms of acute blood loss. However, no acute source of bleeding has been found. Likely reflective of acute illness rather than acute hemorrhage. 4. Hyperglycemia. On insulin drip, blood sugar much better controlled. 5. Hypotension. Zebeta stopped yesterday, placed on pressors, IV fluids and now blood. Will continue to monitor volume status. Yesterday had pulse pressure variation, suggesting that he would be responsive to fluid; therefore, will continue to monitor. 6. Renal failure, managed by nephrology. Greatly appreciate their input. On continuous renal replacement therapy (CRRT). 7. Severe protein malnourishment. Will discuss with nephrology the possibility of initiating total parenteral nutrition (TPN). 8. Questionable history of seizure. Patient on seizure prophylaxis. 9. Neurologic prophylaxis. Will initiate MPO boots. 10. Gastrointestinal (GI) prophylaxis. On Protonix. 11. Deep vein thrombosis (DVT) prophylaxis. Thromboembolism deterrents (TEDs) and [place] as the patient recently had thrombocytopenia, thought to be possibly induced by heparin. No heparin-induced thrombocytopenia (HIT) antibodies were obtained. The patient remains severely ill requiring significant critical care with multiorgan system failure. High risk of . MTDD
[2018-08-11] MEDS: ALBUTEROL SULFATE 2.5 MG/0.5 ML INH NEB SOLN NEB SCH ×3 (11:16→20:11)
[2018-08-11] MEDS: FLUCONAZOLE 100 MG in APPROPRIATE DILUENT 1 EA IV SCH (15:54)
[2018-08-11 17:05] LABS: IONIZED CALCIUM 4.5 MG/DL (4.5-5.3)
[2018-08-11 17:06] LABS: HEMATOCRIT 25.8 % (42.0-52.0); HEMOGLOBIN 8.5 g/dl (13.5-17.5); MEAN CORPUSCULAR HEMOGLOBIN 29.6 pg (27.0-33.0); MEAN CORPUSCULAR HGB CONC 32.9 g/dl (32.0-36.5); MEAN CORPUSCULAR VOLUME 89.9 fl (80.0-96.0); PLATELET COUNT, AUTOMATED 186 10^3/uL (150-450); RED BLOOD COUNT 2.87 10^6/uL (4.30-6.10)
[2018-08-11 17:16] LABS: WHITE BLOOD COUNT 31.7 10^3/uL (4.0-10.0)
[2018-08-11 17:32] LABS: CALCIUM LEVEL 8.1 MG/DL (8.5-10.1); CREATININE FOR GFR 2.63 MG/DL (0.70-1.30); GLOMERULAR FILTRATION RATE 27.7 (>60); MAGNESIUM LEVEL 2.5 MG/DL (1.8-2.4); PHOSPHORUS LEVEL 4.5 MG/DL (2.5-4.9); POTASSIUM SERUM 4.6 MEQ/L (3.5-5.1)
[2018-08-12] VITALS (28 sets, daily range): BP systolic 85–155; BP diastolic 47–76; O2SAT 100
[2018-08-12] MEDS: PIPERACILLIN/TAZOBACTAM SOD 3.375 GM in D5W MINI-BAG PLUS 50 ML IV SCH ×4 (00:18→19:13)
[2018-08-12] MEDS: INSULIN IV RATE CHANGE DOCUMENTATION ML/HR XX SCH ×2 (00:37→02:52)
[2018-08-12 04:50] LABS: IONIZED CALCIUM 4.5 MG/DL (4.5-5.3)
[2018-08-12 04:55] LABS: HEMATOCRIT 24.1 % (42.0-52.0); HEMOGLOBIN 8.1 g/dl (13.5-17.5); MEAN CORPUSCULAR HEMOGLOBIN 29.7 pg (27.0-33.0); MEAN CORPUSCULAR HGB CONC 33.6 g/dl (32.0-36.5); MEAN CORPUSCULAR VOLUME 88.3 fl (80.0-96.0); PLATELET COUNT, AUTOMATED 232 10^3/uL (150-450); RED BLOOD COUNT 2.73 10^6/uL (4.30-6.10); WHITE BLOOD COUNT 26.9 10^3/uL (4.0-10.0)
[2018-08-12 05:14] LABS: CALCIUM LEVEL 7.5 MG/DL (8.5-10.1); CREATININE FOR GFR 2.62 MG/DL (0.70-1.30); GLOMERULAR FILTRATION RATE 27.8 (>60); MAGNESIUM LEVEL 2.4 MG/DL (1.8-2.4); PHOSPHORUS LEVEL 4.7 MG/DL (2.5-4.9); POTASSIUM SERUM 4.4 MEQ/L (3.5-5.1)
[2018-08-12 05:47] LABS: ABG BASE EXCESS -1.1 (-2.0-2.0); ABG HCO3 22.1 MEQ/L (22.0-26.0); ABG O2 SATURATION 98.5 % (95.0-99.0); ABG PARTIAL PRESSURE CO2 31.2 mmHg (35.0-45.0); ABG STANDARD HCO3 23.6 MEQ/L (22.0-26.0); ABG TOTAL CO2 23.1 MEQ/L (22.0-29.0); ABG pH (ARTERIAL) 7.469 UNITS (7.350-7.450)
[2018-08-12] MEDS: SODIUM CHLORIDE 0.9% INJ 10 ML SYR IV SCH ×3 (06:00→22:00)
[2018-08-12] MEDS ORDERED: CALCIUM GLUCONATE 1,000 MG in NS 100 ML IV ONE ×2 (06:00→18:00)
[2018-08-12 06:14] LABS: ALBUMIN 1.3 GM/DL (3.2-5.2); BILIRUBIN,TOTAL 1.8 MG/DL (0.2-1.0); VANCOMYCIN RANDOM 16.8 UG/ML
--- NOTE | 2018-08-12 06:27 | PHACANCOPD ---
PHARMACY VANCOMYCIN DOSING Pt Demographics Demographics Patient Age:47 , Weight:89.400 , Gender: male Adjusted Body Weight Date: 08/02/18, Adjusted Body Weight: [87] Kg Vancomycin Vancomycin indication: PNEUMONIA Vancomycin Target Ranges: 15-20 mcg/ml Vancomycin Load Y/N: No Load Dose Date Time Vancomycin Load Dose: Date: Time: Vancomycin Dose Date: 08/12/18. Current Vancomycin Dose: [750MG IV ONCE] Date: 08/02/18. Current Vancomycin Dose: [1G IV Q24H] Intermittent Dosing?: Yes Labs Labs Item Value Date Time Random Vancomycin Level 16.8 UG/ML 08/12/18 0433 White Blood Count 31.7 10^3/uL *H 08/11/18 0230 White Blood Count 31.7 10^3/uL *H 08/11/18 1656 White Blood Count 26.9 10^3/uL H 08/12/18 0433 Creatinine 2.63 MG/DL H 08/11/18 1656 Creatinine 2.62 MG/DL H 08/12/18 0433 Micro Microbiology 08/10/18 Blood Culture - Preliminary, Resulted No growth after 24 hours . All specim... 08/10/18 Blood Culture - Preliminary, Resulted No growth after 24 hours . All specim... 08/08/18 Blood Culture - Preliminary, Resulted No Growth after 72 hours. All specime... 08/10/18 Gastrointestinal Tract Panel (PCR) - Final, Complete 08/08/18 Clostridium difficile (PCR) - Final, Complete 08/08/18 Gram Stain - Final, Complete 08/08/18 Sputum Culture - Final, Complete Yeast Like Organism 08/10/18 Catheter Tip Culture, Received Pending Creatinine Clearance Date:08/12/18. Creatinine Clearance: [37ML/MIN]. Date:08/02/18. Creatinine Clearance: [27ML/MIN]. Pending Labs VANCOMYCIN LEVEL 1/7 AM Assessment and Plan Maintaining Current Dose?: No Reason for dose change: No Dose Change Pharmacist Note Pharmacist Note Date: 08/12/18. Pharmacist note:PT is being intermittently dosed. The vancomycin level came back this morning @ 16.8mcg/ml. A 750mg dose is schedule today for 08:00. We will continue to monitor and adjust the dose as needed. Date: 08/02/18. Pharmacist note:PT is a 47 year old male being treated for pneumonia goal trough 15-20mcg/ml. The trough came back this am @ 07:48 @ 22.7mcg/ml. Today's dose was held. Vancomycin level will be drawn tomorrow am with morning labs and restarted 08/03 @ 08:00. Dosing will consist of 1g IV every 24 hours. We will continue to monitor and adjust the dose as needed. TERESA ARIAS PHARMACY Aug 12, 2018 06:27
[2018-08-12] MEDS: INSULIN HUMAN REGULAR 100 UNITS in NS 99 ML IV SCH ×2 (06:48→11:49)
[2018-08-12] MEDS ORDERED: VANCOMYCIN HCL 750 MG, VIAL MATE ADAPTER 1 EACH in D5W 250 ML IV ONE (08:00)
--- NOTE | 2018-08-12 08:33 | REP ---
Chest one-view HISTORY: Intubation Comparison: 08/11/2018 Patchy density is present in the left lower lobe consistent with atelectasis or infiltrate decreased compared to the previous study. The right lung is clear. The heart is normal in size. The pulmonary vasculature is normal in appearance. An ET tube, NG tube, central line and pacemaker are present. Impression: Left lower lobe atelectasis or infiltrate decreased compared to the previous study. Electronically Signed by David Jeol MD 08/12/2018 08:24 A
[2018-08-12] MEDS: ALBUTEROL SULFATE 2.5 MG/0.5 ML INH NEB SOLN NEB SCH ×4 (08:37→20:00)
[2018-08-12] MEDS: AMIODARONE 200 MG TAB (PACERONE) GT SCH ×2 (08:48→20:07)
[2018-08-12] MEDS: PANTOPRAZOLE 40MG INJ (PROTONIX) (C9113) IV SCH (08:49)
[2018-08-12] MEDS: ASPIRIN 81 MG CHEW TABLET NG SCH ×2 (08:49→20:07)
[2018-08-12] MEDS: CLOPIDOGREL 75 MG TAB PO SCH (08:49)
[2018-08-12] MEDS: CHLORHEXIDINE GLUCONATE 0.12 % 15ML UDC (PERIDEX ORAL RINSE) MT SCH (08:49)
[2018-08-12] MEDS: levETIRAcetam INJection 500 MG in D5W MINI-BAG PLUS 100 ML IV SCH (08:49)
--- NOTE | 2018-08-12 09:07 | CCN ---
DATE OF VISIT: 08/11/2018 Mr. Shipman is seen this morning on his bedside in intensive care unit. He remains on the ventilator and is also receiving continuous renal replacement therapy (CRRT) on his bedside. Yesterday he was diagnosed with acute pancreatitis and we have not been removing any fluids since then. He was given IV fluid due to low CVP and total intake yesterday was just over 3 liters. He is also receiving blood transfusion this morning due to drop in his hematocrit down to 20.5. The patient remains anuric without any change. His mentation has slightly improved and now he can follow some commands. PHYSICAL EXAMINATION: Temperature 97.5 degrees Fahrenheit, heart rate 70 per minute and respiratory rate 20 per minute. Blood pressure 119/56 mmHg and oxygen saturation 99% on 40% FIO2. His head is atraumatic. Endotracheal tube and nasogastric tubes are in place. His neck veins are not visible. He has a now new left internal jugular vein central line and the right internal jugular vein central line has been removed. His heart sounds are regular and lungs have good bilateral air entry. Abdomen is soft with mild tenderness and bowel sounds are present. Extremities have no cyanosis or clubbing. Neurologically, he seems to be more awake and responsive and able to follow simple commands. Today's labs show sodium level 145, potassium 3.8, CO2 15, BUN 44 and creatinine 1.89. Glucose 153 and calcium 5.4. Phosphorus is 3.2. AST 128, ALT 210, total protein 3.5 and albumin 0.9. PROBLEMS: 1. Anuric acute renal failure. The patient remains anuric and currently on CRRT due to recurrent hypotension and need for pressors. At present, he is not on pressors and has been requiring IV fluids and blood transfusion due to acute pancreatitis and worsening hypotension. We will continue and not remove any fluid today. Prescription has been adjusted due to worsening metabolic acidosis. 2. Septic shock. The patient is currently not on pressors. His white cell count is still elevated at 31.7. He remains on broad-spectrum antibiotics and is also receiving fluid resuscitation due to acute pancreatitis. 3. Hypocalcemia. This morning's labs are quite different and we will have to recheck. I have made adjustments in the prescription for CRRT. 4. Anemia. He has worsening anemia with hemoglobin down to 6.6 and hematocrit 20.5. He is being transfused 2 units of packed RBCs. 5. Respiratory failure. The patient remains ventilator dependent and is likely to require ventilator for at least a couple more weeks due to altered mentation and now acute pancreatitis with shock. It is quite possible that he will require a tracheostomy. 6. Acute pancreatitis. Currently his tube feeding is on hold due to acute pancreatitis and we will hold off on TPN also due to abnormal liver enzymes and see how he does in the next 24 hours. It will probably be reasonable to resume his tube feedings rather than TPN if he can tolerate it. 37 minutes of critical care time spent at the bedside today. No procedures were performed during this time.
--- NOTE | 2018-08-12 10:18 | CCN ---
DATE: 08/12/2018 Mr. Shipman is awake, alert, following commands at bedside this morning. He has been on pressure support for the past 24 hours. His white count is trending down, although remains significantly elevated. Minimal blood in his bowel movement today, which may be the source of his anemia. No quynh hematochezia. Patient is on aspirin and Plavix at this point in time. Amylase and lipase levels are trending down. The patient passed spontaneous breathing trial and was extubated this morning for trial of extubation. He does want the endotracheal tube placed back in if he is unable to breathe, but no CPR is desired. PHYSICAL EXAMINATION: Temperature is 98.6, pulse is 82, respiratory rate of 16, blood pressure is 110/53 with a mean arterial pressure of 72, oxygen saturation 35% on 100% FiO2 and once extubated oxygen saturation 97% on aerosol mask, 40% FiO2. Intake and output over the past 24 hours 1784 in 22 out, net positive 1762. He has had no fevers over the past 24 hours. GENERAL: Awake and alert, mouthing words over the endotracheal tube, shaking his head yes and no appropriately to questions. HEENT: Sclerae clear and anicteric. Pupils equal and reactive to light. Mucous membranes are moist without lesions. NECK: Neck is supple. No tracheal deviation. Left IJ in place without surrounding erythema or exudate. PULMONARY: Decreased breath sounds. Few scattered rhonchi, no rales. No dullness to percussion. No accessory muscle use. ABDOMEN: Slightly distended. No discernible hepatosplenomegaly. Some tenderness to palpation but no rebound or guarding. Hypoactive bowel sounds are present. EXTREMITIES: MPO boots are in place. There is minimal peripheral edema. SKIN: Pale without rash, jaundice or bruising. MUSCULOSKELETAL: Significant muscle wasting, muscle weakness. 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 Is able to move all extremities but not against resistance. LABORATORY EVALUATION: White blood cell count is down to 26.9, hemoglobin at 8.1, platelet count of 232, sodium is 138, potassium 4.4, chloride 105, bicarb 23, BUN of 53 with a creatinine of 2.62, anion gap of 10, total bili of 1.8, albumin of 1.3, amylase and lipase down to 48 and 535 yesterday morning. Albumin is at 1.3, total protein is up to 5, AST is 135, ALT is 225, total bili is at 1.8. Arterial blood gas this morning shows a pH of 7.47, pCO2 of 31, pAO2 of 119 on pressure support 10/10. Chest x-ray shows no evidence of pulmonary edema or infiltrate. Endotracheal tube, central lines in adequate position. IMPRESSION: 1. Respiratory failure. Thought to initially be secondary to acute coronary syndrome. Will attempt extubation this morning. Will remain on oxygen. The patient wishes to be reintubated if he fails trial of extubation. 2. Acute coronary syndrome on Plavix and aspirin. No evidence of ventricular arrhythmias. Does have some blood in his stool. I believe the benefit of continuing Plavix and aspirin at this point in time outweighs his risk of hemorrhage however, we will carefully monitor this. 3. Encephalopathy, improved mental status this morning. 4. Severe muscle weakness and severe protein malnourishment. The patient just extubated this morning. If he does well will start clears this evening. Consider advancing diet as tolerated with close monitoring of pancreatic enzymes. Will also facilitate at least getting the patient into bedside sitting position to help with muscle weakness. 5. Pancreatitis. Amylase, lipase trending down. No evidence of acute inflammation this morning. 6. Anemia as mentioned above, possibly second to GI blood loss. Will continue to monitor as the patient is currently not clinically stable to undergo evaluation of the GI tract. 7. Hyperglycemia on insulin drip. 8. Hypotension. Zebeta was stopped. Will continue to monitor blood pressure and heart rate. Renal failure managed by nephrology currently on CRRT. Will defer to their management as to when to convert him to as needed dialysis. 9. Questionable history of seizure. I have seen no seizure activity. In order to prevent polypharmacy I am removing Keppra. Neuro prophylaxis on MPO boots. Will start physical therapy. 10. GI prophylaxis on Protonix. I believe this is especially important especially with his anemia that he continue this until he is clinically better. 11. Deep vein thrombosis (DVT) prophylaxis on thromboembolic deterrent stockings (TEDS) and Unruly's. The patient is severely ill, severely malnourished with high risk of requiring reintubation. He will be monitored in the intensive care unit. Due to his multiorgan impairment, he still requires critical care. Critical care time was 1 hour, this excludes all procedures.
[2018-08-12] MEDS: FLUCONAZOLE 100 MG in APPROPRIATE DILUENT 1 EA IV SCH (16:42)
[2018-08-12 17:14] LABS: HEMOGLOBIN 8.1 g/dl (13.5-17.5); MEAN CORPUSCULAR HEMOGLOBIN 29.8 pg (27.0-33.0); MEAN CORPUSCULAR HGB CONC 33.8 g/dl (32.0-36.5); MEAN CORPUSCULAR VOLUME 88.2 fl (80.0-96.0); PLATELET COUNT, AUTOMATED 250 10^3/uL (150-450); RED BLOOD COUNT 2.72 10^6/uL (4.30-6.10); WHITE BLOOD COUNT 24.8 10^3/uL (4.0-10.0)
[2018-08-12 17:16] LABS: IONIZED CALCIUM 4.6 MG/DL (4.5-5.3)
[2018-08-12 17:34] LABS: CALCIUM LEVEL 7.9 MG/DL (8.5-10.1); CREATININE FOR GFR 2.4 MG/DL (0.70-1.30); GLOMERULAR FILTRATION RATE 30.8 (>60); MAGNESIUM LEVEL 2.3 MG/DL (1.8-2.4); POTASSIUM SERUM 4.1 MEQ/L (3.5-5.1)
[2018-08-12] MEDS ORDERED: CALCIUM GLUCONATE 1,000MG/10ML VIAL (100MG/ML) (J0610) As Ordered ONE (17:54)
[2018-08-12] MEDS: HumaLOG INSULIN (NovoLOG) PER UNIT SC SCH (17:59)
[2018-08-12] MEDS ORDERED: FAT EMULSION IV 20% 500 ML IV SCH (18:00)
[2018-08-12] MEDS ORDERED: SODIUM CHLORIDE 23.4% INJ 200 MEQ, SODIUM ACETATE INJ 40 MEQ, POTASSIUM CHLORIDE INJ 20... IV SCH ×6 (18:00)
[2018-08-12] MEDS: NS 1,000 ML IV SCH ×2 (23:00)
[2018-08-13] VITALS (27 sets, daily range): BP systolic 96–154; BP diastolic 50–70
[2018-08-13] MEDS: PIPERACILLIN/TAZOBACTAM SOD 3.375 GM in D5W MINI-BAG PLUS 50 ML IV SCH ×4 (00:47→18:21)
[2018-08-13] MEDS: HumaLOG INSULIN (NovoLOG) PER UNIT SC SCH ×4 (00:48→17:49)
[2018-08-13] MEDS: SODIUM CHLORIDE 0.9% INJ 10 ML SYR IV SCH ×3 (05:18→22:00)
[2018-08-13 05:19] LABS: IONIZED CALCIUM 4.5 MG/DL (4.5-5.3)
[2018-08-13 05:31] LABS: HEMATOCRIT 23.7 % (42.0-52.0); HEMOGLOBIN 7.9 g/dl (13.5-17.5); MEAN CORPUSCULAR HGB CONC 33.3 g/dl (32.0-36.5); MEAN CORPUSCULAR VOLUME 90.1 fl (80.0-96.0); PLATELET COUNT, AUTOMATED 272 10^3/uL (150-450); RED BLOOD COUNT 2.63 10^6/uL (4.30-6.10); WHITE BLOOD COUNT 18.9 10^3/uL (4.0-10.0)
[2018-08-13 05:45] LABS: ABG BASE EXCESS -2.4 (-2.0-2.0); ABG HCO3 21.2 MEQ/L (22.0-26.0); ABG O2 SATURATION 97.9 % (95.0-99.0); ABG PARTIAL PRESSURE CO2 31.7 mmHg (35.0-45.0); ABG PARTIAL PRESSURE O2 98.7 mmHg (75.0-100.0); ABG STANDARD HCO3 22.5 MEQ/L (22.0-26.0); ABG TOTAL CO2 22.2 MEQ/L (22.0-29.0); ABG pH (ARTERIAL) 7.444 UNITS (7.350-7.450)
[2018-08-13 05:47] LABS: CALCIUM LEVEL 7.8 MG/DL (8.5-10.1); CREATININE FOR GFR 2.44 MG/DL (0.70-1.30); GLOMERULAR FILTRATION RATE 30.2 (>60); MAGNESIUM LEVEL 2.1 MG/DL (1.8-2.4); PHOSPHORUS LEVEL 3.4 MG/DL (2.5-4.9); POTASSIUM SERUM 3.7 MEQ/L (3.5-5.1)
[2018-08-13 05:48] LABS: ALBUMIN 1.2 GM/DL (3.2-5.2); BILIRUBIN,TOTAL 1.5 MG/DL (0.2-1.0); CALCIUM LEVEL 7.6 MG/DL (8.5-10.1); CREATININE FOR GFR 2.35 MG/DL (0.70-1.30); GLOMERULAR FILTRATION RATE 31.5 (>60); PHOSPHORUS LEVEL 3.3 MG/DL (2.5-4.9); POTASSIUM SERUM 3.8 MEQ/L (3.5-5.1); TOTAL PROTEIN 4.5 GM/DL (6.4-8.2); VANCOMYCIN RANDOM 15.4 UG/ML
[2018-08-13] MEDS ORDERED: CALCIUM GLUCONATE 1,000 MG in NS 100 ML IV ONE ×2 (06:00→19:30)
--- NOTE | 2018-08-13 06:29 | PHACANCOPD ---
PHARMACY VANCOMYCIN DOSING Pt Demographics Demographics Patient Age:47 , Weight:89.000 , Gender: male Adjusted Body Weight Date: 08/02/18, Adjusted Body Weight: [87] Kg Events Past 24 Hours Events Past 24 Hours: NO: Dialysis, Diuretic Therapy, Change in CrCl, Fever, Elevation in WBC, Pending Diagnostics, Pending Procedures, Other Vancomycin Vancomycin indication: PNEUMONIA Vancomycin Target Ranges: 15-20 mcg/ml Vancomycin Load Y/N: No Load Dose Date Time Vancomycin Load Dose: Date: Time: Vancomycin Dose Date: 08/13/18. Current Vancomycin Dose: [1G ONCE] Date: 08/12/18. Current Vancomycin Dose: [750MG IV ONCE] Date: 08/02/18. Current Vancomycin Dose: [1G IV Q24H] Intermittent Dosing?: Yes Labs Labs Item Value Date Time White Blood Count 24.8 10^3/uL H 08/12/18 1651 White Blood Count 18.9 10^3/uL H 08/13/18 0501 Creatinine 2.35 MG/DL H 08/13/18 0501 Creatinine 2.44 MG/DL H 08/13/18 0501 Creatinine 2.40 MG/DL H 08/12/18 1651 Creatinine 2.62 MG/DL H 08/12/18 0433 Random Vancomycin Level 16.8 UG/ML 08/12/18 0433 Random Vancomycin Level 15.4 UG/ML 08/13/18 0501 Micro Microbiology 08/10/18 Blood Culture - Preliminary, Resulted No Growth after 48 hours. All Specime... 08/10/18 Blood Culture - Preliminary, Resulted No Growth after 48 hours. All Specime... 08/08/18 Blood Culture - Preliminary, Resulted No Growth after 72 hours. All specime... 08/10/18 Gastrointestinal Tract Panel (PCR) - Final, Complete 08/08/18 Clostridium difficile (PCR) - Final, Complete 08/08/18 Gram Stain - Final, Complete 08/08/18 Sputum Culture - Final, Complete Yeast Like Organism 08/10/18 Catheter Tip Culture - Final, Complete Creatinine Clearance Date:08/12/18. Creatinine Clearance: [37ML/MIN]. Date:08/02/18. Creatinine Clearance: [27ML/MIN]. Pending Labs VANCOMYCIN LEVEL 1/8 AM Assessment and Plan Maintaining Current Dose?: No Reason for dose change: Trough too low, No Dose Change Pharmacist Note Pharmacist Note Date: 08/13/18. Pharmacist note:Vancomycin level came back this Am @15.4mcg/ml. A 1g dose is scheduled today for 08:00. We will continue to monitor and adjust the dose as needed. Date: 08/12/18. Pharmacist note:PT is being intermittently dosed. The vancomycin level came back this morning @ 16.8mcg/ml. A 750mg dose is schedule today for 08:00. We will continue to monitor and adjust the dose as needed. Date: 08/02/18. Pharmacist note:PT is a 47 year old male being treated for pneumonia goal trough 15-20mcg/ml. The trough came back this am @ 07:48 @ 22.7mcg/ml. Today's dose was held. Vancomycin level will be drawn tomorrow am with morning labs and restarted 08/03 @ 08:00. Dosing will consist of 1g IV every 24 hours. We will continue to monitor and adjust the dose as needed. TERESA ARIAS PHARMACY Aug 13, 2018 06:29
[2018-08-13] MEDS ORDERED: KCL 20MEQ IN 100ML SWI (KRUN) 20 MEQ in APPROPRIATE DILUENT 1 EA IV ONE ×4 (07:00→20:30)
[2018-08-13] MEDS ORDERED: VANCOMYCIN HCL 1,000 MG, VIAL MATE ADAPTER 1 EACH in D5W 250 ML IV ONE (08:00)
--- NOTE | 2018-08-13 08:01 | IPN ---
DATE OF SERVICE: 08/12/2018 Mr. Shipman is seen this morning on his bedside in intensive care unit. Apparently his mentation improved and he has been extubated successfully this morning. He is currently on aerosol mask. The patient is now able to talk and answers simple questions. He remains anuric and still on continuous renal replacement therapy (CRRT). His blood pressure is still somewhat low but has not required pressors for about 48 hours. He has been given a lot of IV fluid and blood transfusion and his CVP reported at 12 this morning. He still has a nasogastric tube in place but feeding has been on hold due to acute pancreatitis. PHYSICAL EXAMINATION: Temperature 98.4 degrees Fahrenheit, heart rate 75 per minute and respiratory rate 24 per minute. Blood pressure 119/54 mmHg and oxygen saturation 98% on 4 liters oxygen. His head is atraumatic. Oral mucosa is somewhat dry. He is using mask for oxygen at present and a nasogastric tube is in place. Endotracheal tube has been removed. Heart sounds are regular and lungs have slightly diminished breath sounds at bases. I do not hear any wheezing or rales. Abdomen is soft and tender and somewhat distended. Bowel sounds are present. Extremities have no cyanosis or clubbing. Neurologically he has improved significantly and is able to talk and answer simple questions. He is also moving his limbs. Today's labs show WBC count down to 26.9, hemoglobin 8.1 and hematocrit 24.1. Platelets 232. Sodium 138, potassium 4.4, CO2 23, BUN 53 and creatinine 2.62. Glucose 112 and calcium 7.5. Phosphorus is 4.7 and magnesium 2.4. AST down to 135, ALT 225 and albumin is 1.3. PROBLEMS: 1. Acute renal failure. The patient remains anuric and dependent on dialysis. He is currently on a CRRT due to low blood pressure. For last 24 hours, we did not remove any fluid due to low CVP and low systemic blood pressure. His electrolytes are stable and he will continue with CRRT for next 24 hours. CRRT orders are being renewed. 2. Respiratory insufficiency. The patient has been successfully extubated this morning and he is using oxygen via facemask at present. We will want to prevent any hypervolemia and now we will switch to keeping his volume status even. We will remove only as much fluid as he is getting with his medications. He is also going to be started on TPN so we will have to remove fluid in order to prevent hypervolemia. 3. Nutrition. The patient was given tube feeding which has been on hold due to acute pancreatitis. Will start TPN and special formula TPN orders are being written. 4. Hyperglycemia. His hyperglycemia has improved which was most likely related to acute pancreatitis and now he is not receiving insulin drip at present. 5. Anemia. The patient was transfused 2 units of packed RBCs and anemia improved somewhat. It is likely that he might require further transfusion as he is still acutely ill with multiorgan problems and acute renal failure. 6. Leukocytosis and septic shock. He is maintaining his blood pressure without any pressors and leukocytosis has started to improve. His central line was changed yesterday and he remains on antibiotics. All cultures have been negative so far. 42 minutes of critical care time spent today on the bedside and managing his nutrition and CRRT. No procedures were performed during this time.
[2018-08-13] MEDS: ALBUTEROL SULFATE 2.5 MG/0.5 ML INH NEB SOLN NEB SCH ×4 (08:32→20:32)
[2018-08-13] MEDS ORDERED: HEPARIN SOD (PORCINE) 5000 UNITS/ML VIAL SQ SCH (09:00)
--- NOTE | 2018-08-13 09:35 | CCN ---
DATE OF SERVICE: 08/13/2018 Mr. Shipman is seen in the intensive care unit (ICU). He was extubated over the weekend and is awake and alert and conversant. He reports that he is doing well with no discomfort. Nursing has noted minimal blood in bowel movements which could be the source of his anemia. His hemoglobin and hematocrit have stayed relatively stable since yesterday. He was transfused 2 units of packed red blood cells on 08/11/2018. He is on aspirin and Plavix for his history of acute coronary syndrome and recent non-ST elevation myocardial infarction. He is also being followed for acute pancreatitis which is improving and he reports no abdominal pain. The patient is currently afebrile. He did have slightly elevated temperature of 100.5 during the night. His white blood cell count continues to trend down and is 18.9 today. He is on Zosyn, vancomycin and fluconazole. He is being followed by nephrology for renal failure and is on continuous renal replacement therapy (CRRT). Vitals: Temperature is 98.3. The T-max was 100.5 at midnight. Pulse is 83, respiratory rate is 20, blood pressure is 154/70 arterial line and 134/63 cuff, pulse oximetry is 96% on room air. OBJECTIVE: General: The patient is alert and oriented. He knows he is in the hospital and knows the year. His answers are appropriate. HEENT: Moist mucous membranes. Neck is supple. No cervical lymphadenopathy. No jugular venous distention (JVD). No tracheal deviation. Left IJ in place. Pulmonary: Clear breath sounds. No wheezes, rales or rhonchi. No accessory muscle use. Heart: Regular rate and rhythm. S1, S2. Abdomen: Hypoactive bowel sounds. Slight distension. No tenderness to palpation. No rebound or guarding. No obvious hepatosplenomegaly. Extremities: n.p.o. boots in place. No lower extremity edema. Skin: Warm and dry. LABORATORY DATA: WBC 18.9, hemoglobin 7.9, hematocrit 23.7, platelets 272. ABG: pH is 7.444, pCO2 is 31.7, pO2 is 98.7, HCO3 is 21.2. Sodium is 138, potassium 3.7, chloride is 104, carbon dioxide is 23, BUN 51, creatinine 2.44, glucose 365, calcium 7.8, phosphorus 3.4, magnesium 2.1, total bilirubin 1.5, AST 93, ALT 157, alk phos 211, LD 536, CK 72, total protein is 4.5, albumin is 1.2, triglycerides 349, cholesterol 101. ASSESSMENT/PLAN: 1. Anemia. Possibly secondary to GI blood loss. Continue to monitor closely. The patient is not felt to be clinically stable enough to undergo GI tract evaluation at present time. 2. Leukocytosis. He is on Zosyn, vancomycin and fluconazole. WBC is trending down. 3. Respiratory failure likely secondary to acute coronary syndrome. The patient was successfully intubated yesterday and he is now on room air. At this point in time, the patient is not requiring any mechanical ventilation and is sating good on room air. Therefore we will transfer him to the hospitalist service for continued medical management. 4. Acute coronary syndrome on Plavix and aspirin. No evidence of ventricular arrhythmias. The patient does have some blood in his stool and it is felt that continuing Plavix and aspirin at this point for his history of acute coronary syndrome and recent non-ST elevation myocardial infarction at this point in time outweighs the risk of hemorrhage. This, however, will need continued close monitoring. 5. Encephalopathy. This is improved and the patient is answering questions appropriately. 6. Severe muscle weakness and severe protein malnourishment. The patient has been on TPN. Plan is to start clears and advance diet as tolerated. Continue close monitoring of pancreatic enzymes. 7. Pancreatitis. No evidence of acute inflammation. The patient has been improving. Continue to monitor. 8. Hyperglycemia. The patient is on sliding-scale insulin. Continue to monitor. 9. Hypotension. Zebeta was stopped. Continue to monitor blood pressures closely. Renal failure is being managed by nephrology and the patient is currently on CRRT. Nephrology is considering changing him to regular hemodialysis when he is stable. 10. Renal failure as noted above. Nephrology is following and the patient is currently on CRRT. 11. Questionable history of seizure. The patient has had no current seizure activity. His Keppra was stopped. 12. GI prophylaxis. The patient is on Protonix. 13. DVT prophylaxis. SCDs and thromboembolic deterrent stockings (TEDS). The patient will be transferred to the hospitalist service as he is no longer requiring mechanical ventilation. MTDD
--- NOTE | 2018-08-13 09:46 | REP ---
PORTABLE CHEST X-RAY: Single view. HISTORY: Intubated patient. COMPARISON STUDY: August 12, 2018. FINDINGS: EKG monitoring electrodes are seen. A multi-lead pacemaker is again noted in the right heart via the left side. A left internal jugular central venous line is seen terminating at the level of the junction of the brachiocephalic vein with the superior vena cava. No new infiltrate is seen. Pleural angles are sharp. Cardiomediastinal silhouette is unremarkable. Electronically Signed by Everett Kent MD 08/13/2018 10:58 A
[2018-08-13] MEDS: CLOPIDOGREL 75 MG TAB PO SCH (10:14)
[2018-08-13] MEDS: PANTOPRAZOLE 40MG INJ (PROTONIX) (C9113) IV SCH (10:14)
[2018-08-13] MEDS: ASPIRIN 81 MG CHEW TABLET NG SCH (10:14)
[2018-08-13] MEDS: AMIODARONE 200 MG TAB (PACERONE) GT SCH (10:15)
[2018-08-13 12:19] LABS: HEPATITIS A ANTIBODY IGM NEGATIVE (NEGATIVE); HEPATITIS B CORE ANTIBODY IGM NEGATIVE (NEGATIVE); HEPATITIS B SURFACE ANTIGEN NEGATIVE (NEGATIVE); HEPATITIS C VIRUS ABY INDEX 0.1 INDEX (<0.8)
--- NOTE | 2018-08-13 12:24 | IPN ---
DATE OF VISIT: 08/13/2018 CRITICAL CARE NOTE: Mr. Shipman is seen this morning on his bedside in intensive care unit. He remains on continuous veno-venous hemodialysis (CVVHD). He is currently resting, however is arousable and I woke him up. Nursing staff reports that he asked for a drink and has been given sips. Otherwise, he has been nothing by mouth. Total parenteral nutrition (TPN) was started yesterday, which is in progress. He still anuric and has abdominal discomfort on palpation. On physical exam, temperature 97.6 degrees Fahrenheit, heart rate 78 per minute and respiratory rate 20 per minute. Blood pressure 151/67 mmHg and oxygen saturation 95%. His head is atraumatic. Neck is supple and jugular venous distention (JVD) is minimally elevated. There is no oral thrush or ulcers. Heart sounds are regular and lungs with slightly diminished breath sounds at bases. Abdomen is soft but tender to palpation and bowel sounds are present. Extremities have no cyanosis or clubbing. Neurologically, he is arousable but sleepy at present. Nursing staff reports that he was up earlier and had been talking. Today's labs show WBC count 18.9, hemoglobin 7.9 and hematocrit 23.7. Sodium 138, potassium 3.7, CO2 23, BUN 51 and creatinine 2.44. Glucose 365 and calcium 7.8. AST is down to 93, ALT 157 and alkaline phosphatase 211. PROBLEMS: 1. Oliguric acute renal failure related to septic shock and patient remains anuric. He is currently on CVVHD and we will continue with the same. Now we are trying to maintain his fluid volume status even and not removing any net fluid. His CVVHD orders are being renewed. 2. Nutrition. Patient has been started on TPN and he is tolerating it well. TPN orders are also being written today. 3. Anemia. His anemia is slightly worse but no emergent need for transfusion. Will consider to transfuse him tomorrow if he has further drop in his hematocrit. 4. Hyperglycemia related to acute pancreatitis and the TPN. I am increasing the dose of insulin in the TPN to 30 units daily and will continue with fingerstick and coverage. 5. Acute pancreatitis. Patient remains nothing by mouth and on TPN. His blood pressure is stable and volume status is reasonable. No changes are being made as far as his pancreatitis goes. 6. Hypotension. His volume status has improved and blood pressure has also improved after adequate fluid volume resuscitation. He has not required pressors for last 3 days now. 7. Altered mentation. His mentation has also improved significantly and most likely it was related to toxic and metabolic problems in addition to anoxia due to cardiac arrest. He seems to be making good progress. All in all patient is making good progress and we will continue to follow him. He is still not making much urine and is likely to remain dialysis dependent for awhile. I have discussed with Dr. Garces an order to get a Perma-Cath placed for dialysis. 32 minutes of critical care time spent on the bedside during which no procedures were performed.
[2018-08-13] MEDS: FLUCONAZOLE 100 MG in APPROPRIATE DILUENT 1 EA IV SCH (15:22)
[2018-08-13] MEDS: ISOSORBIDE DIN (ISORDIL) 10 MG TAB PO SCH (17:48)
[2018-08-13] MEDS: **hydrALAZINE** 10 MG TAB PO SCH ×2 (17:51→21:02)
--- NOTE | 2018-08-13 17:52 | IPN ---
DATE: 08/13/2018 Received sign-off from pulmonary critical care team. The patient is seen and examined at bedside. Status post extubation on 08/12/2018. Currently undergoing continues veno-venous hemofiltration (CVVH) with total parenteral nutrition. Diet has been escalated to clear liquid diet. The patient denies any abdominal pain. Denies any chest pain, pressure or discomfort. Denies any shortness of breath. VITAL SIGNS: Temperature 97.5, pulse 88, respirations 20, blood pressure 142/62, pulse oximetry 95%. LABORATORY: WBC 18.9, hemoglobin and hematocrit 7.9/23.7, platelets 272. Chemistry: Sodium 138, potassium 3.7, chloride 104, bicarbonate 23, BUN 51, creatinine 2.44. PHYSICAL EXAMINATION: GENERAL: The patient is alert, oriented, comfortable. HEENT: Moist mucous membranes. PULMONARY: Bilaterally clear. CARDIAC: Regular. S1, S2. ABDOMEN: Hypoactive bowel sounds. Slight distention. Nontender. EXTREMITIES: No edema. 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 On presentation, the patient was tachycardic and hypertensive. Was given aspirin, full dose, Lopressor in the emergency room and nitroglycerin drip, as well as Lasix and hydralazine. Eventually, the patient's respirations worsened and was on nonrebreather and was diaphoretic. Subsequently, the patient was intubated. Was also started on insulin drip. Also complicated with hypotension, shocked liver. Hospital course was complicated with non ST elevation myocardial infarction, hyperglycemia, shocked liver, leukocytosis of unknown origin, candiduria, pancreatitis, and acute on chronic renal failure requiring CVVH. PROBLEMS: 1. Anemia, possibly secondary to GI loss. The patient was transfused during the hospital course. Monitor hemoglobin and hematocrit. Transfuse as needed. Currently, the patient was just on pressors and extubated. Will need GI evaluation once the patient is more stable. Follow occult. Continue proton pump inhibitor. 2. Leukocytosis of unknown origin, has improved. The patient is on Zosyn, vancomycin and Diflucan. Urine shows candiduria. The patient's leukocytosis has improved. Infectious disease has been consulted. Possible inflammatory in nature versus infectious given the patient had pancreatitis, as well as congestive heart failure with shocked liver. Further recommendations per infectious disease. 3. Acute hypoxic respiratory failure secondary to acute coronary syndrome. The patient was successfully extubated on 08/12/2018. Currently on room air. Diet has been advanced to clear. 4. Acute coronary syndrome. Cardiology has been consulted. The patient is currently on amiodarone, aspirin, Coreg, Plavix, hydralazine, Isordil. Further recommendations as per cardiology. Strict input and output. Avoid fluid overload. Echo is appreciated with severely depressed ejection fraction of 10 to 15. The patient has a defibrillator with biventricular pacing. Given the patient reversed do not resuscitate, the defibrillator function has been discontinued by cardiology. Further recommendations as per Dr. Giordano, cardiology. 5. Encephalopathy, resolved. 6. Severe muscle weakness and severe protein calorie malnutrition. The patient is currently on total parenteral nutrition. Diet is advanced to clear. Continue total parenteral nutrition for one more day. 7. Pancreatitis. No evidence of acute inflammation. The patient is currently tolerating clear liquid diet. Continue TPN until the patient tolerates a regular diet. 8. Hyperglycemia. Insulin according to protocol. Followup fingersticks and adjust as needed. 9. Hypotension. The patient has an arterial line, likely we will discontinue in the next day or so. Continue blood pressure medication as mentioned above. The patient is currently off pressor. 10. Transaminitis secondary to shocked liver. Has resolved. 11. Acute renal failure. Nephrology consulted. Currently, the patient is on CRRT. The patient's CRRT femoral catheter was placed on 08/11/2018. Case discussed with Dr. Hansen. Dr. Hansen stated that he will stop CRRT tomorrow and discontinue catheter. Further recommendations as per nephrology. Monitor kidney function. 12. Questionable history of seizures. The patient currently does not have any seizure activity. The patient's Keppra was discontinued. 13. Gastrointestinal prophylaxis. Protonix. 14. Deep vein thrombosis (DVT) prophylaxis. Heparin subcutaneously has been started. We will monitor hemoglobin and hematocrit. If drops, we will discontinue heparin subcutaneously. Thromboembolic compression stockings (TEDS) and sequentials. DISPOSITION: The patient will need physical therapy (PT), infectious disease and cardiology recommendations. Nephrology for evaluation of continuing need for dialysis or not.
[2018-08-13] MEDS ORDERED: SODIUM ACETATE IV SCH ×10 (18:00)
[2018-08-13] MEDS ORDERED: FAT EMULSION IV 20% 500 ML IV SCH (18:00)
[2018-08-13] MEDS ORDERED: SODIUM CHLORIDE IV SCH ×10 (18:00)
[2018-08-13] MEDS ORDERED: [UNRECOGNIZED DRUG - OTHER] IV SCH ×10 (18:00)
[2018-08-13 18:13] LABS: IONIZED CALCIUM 4.5 MG/DL (4.5-5.3)
--- NOTE | 2018-08-13 18:20 | IPNPDOC ---
Text Note Date of Service The patient was seen on 08/13/18. NOTE RN noticed trace blood on the bed sheets, given anemia and possibility of GI b leed. hold heparin SQ , teds and SCD for DVT ppx. patient on asa and plavix as well. potentially need additional workup when patient condition improves. VS,Fishbone, I+O VS, Fishbone, I+O Laboratory Tests 08/13/18 05:01 Red Blood Count 2.63 L, Mean Corpuscular Volume 90.1, Mean Corpuscular Hemoglobin 30.0, Mean Corpuscular Hemoglobin Concent 33.3, Red Cell Distribution Width 16.4 H, Calcium Level 7.8 L, Phosphorus Level 3.3, Aspartate Amino Transf (AST/SGOT) 93 H, Alanine Aminotransferase (ALT/SGPT) 157 H, Lactate Dehydrogenase 536 H, Total Creatine Kinase 72, Alkaline Phosphatase 211 H, Total Bilirubin 1.5 H, Triglycerides Level 349 H, Cholesterol Level 101, Total Protein 4.5 L, Albumin 1.2 L Vital Signs Date Time Temp Pulse Resp B/P (MAP) Pulse Ox O2 Delivery O2 Flow Rate FiO2 08/13/18 17:51 145/68 08/13/18 17:00 96 20 96 Room Air 08/13/18 16:00 97.9 08/12/18 20:00 08/12/18 17:00 1.0 I&O- Last 24 Hours up to 6 AM 08/13/18 06:00 Intake Total 2269 ml Output Total 972 ml Balance 1297 ml MASSIMO MAC MD Aug 13, 2018 18:20
[2018-08-13] MEDS: LEVEMIR (INSULIN DETEMIR) 1 UNITS/0.01ML SC SCH ×2 (18:21→18:55)
[2018-08-13 18:22] LABS: HEMATOCRIT 23.7 % (42.0-52.0); HEMOGLOBIN 7.7 g/dl (13.5-17.5); MEAN CORPUSCULAR HEMOGLOBIN 30.1 pg (27.0-33.0); MEAN CORPUSCULAR HGB CONC 32.5 g/dl (32.0-36.5); MEAN CORPUSCULAR VOLUME 92.6 fl (80.0-96.0); PLATELET COUNT, AUTOMATED 294 10^3/uL (150-450); RED BLOOD COUNT 2.56 10^6/uL (4.30-6.10); WHITE BLOOD COUNT 16.1 10^3/uL (4.0-10.0)
[2018-08-13 18:38] LABS: CALCIUM LEVEL 7.5 MG/DL (8.5-10.1); CREATININE FOR GFR 2.36 MG/DL (0.70-1.30); GLOMERULAR FILTRATION RATE 31.4 (>60); MAGNESIUM LEVEL 2.1 MG/DL (1.8-2.4); PHOSPHORUS LEVEL 2.9 MG/DL (2.5-4.9); POTASSIUM SERUM 3.9 MEQ/L (3.5-5.1)
[2018-08-13] MEDS: CARVedilol 6.25 MG TAB PO SCH (20:03)
[2018-08-14] VITALS (24 sets, daily range): BP systolic 93–145; BP diastolic 48–69
[2018-08-14] MEDS: NS 1,000 ML IV SCH ×4 (00:20→23:00)
[2018-08-14] MEDS: PIPERACILLIN/TAZOBACTAM SOD 3.375 GM in D5W MINI-BAG PLUS 50 ML IV SCH ×4 (00:20→18:09)
[2018-08-14] MEDS: HumaLOG INSULIN (NovoLOG) PER UNIT SC SCH ×4 (00:21→20:59)
[2018-08-14 05:48] LABS: IONIZED CALCIUM 4.5 MG/DL (4.5-5.3)
[2018-08-14 05:53] LABS: HEMATOCRIT 25.1 % (42.0-52.0); HEMOGLOBIN 8.3 g/dl (13.5-17.5); MEAN CORPUSCULAR HEMOGLOBIN 29.7 pg (27.0-33.0); MEAN CORPUSCULAR HGB CONC 33.1 g/dl (32.0-36.5); PLATELET COUNT, AUTOMATED 311 10^3/uL (150-450); RED BLOOD COUNT 2.79 10^6/uL (4.30-6.10); WHITE BLOOD COUNT 17.9 10^3/uL (4.0-10.0)
[2018-08-14] MEDS: SODIUM CHLORIDE 0.9% INJ 10 ML SYR IV SCH ×3 (06:00→21:00)
[2018-08-14] MEDS: ISOSORBIDE DIN (ISORDIL) 10 MG TAB PO SCH ×3 (06:13→18:09)
[2018-08-14 06:14] LABS: ALBUMIN 1.2 GM/DL (3.2-5.2); BILIRUBIN,TOTAL 1.4 MG/DL (0.2-1.0); CALCIUM LEVEL 7.5 MG/DL (8.5-10.1); CREATININE FOR GFR 2.31 MG/DL (0.70-1.30); GLOMERULAR FILTRATION RATE 32.2 (>60); MAGNESIUM LEVEL 2.1 MG/DL (1.8-2.4); PHOSPHORUS LEVEL 2.5 MG/DL (2.5-4.9); POTASSIUM SERUM 4.2 MEQ/L (3.5-5.1); TOTAL PROTEIN 4.6 GM/DL (6.4-8.2)
[2018-08-14 06:18] LABS: ABG BASE EXCESS -0.3 (-2.0-2.0); ABG HCO3 22.8 MEQ/L (22.0-26.0); ABG O2 SATURATION 94.5 % (95.0-99.0); ABG PARTIAL PRESSURE CO2 31.3 mmHg (35.0-45.0); ABG PARTIAL PRESSURE O2 74.5 mmHg (75.0-100.0); ABG STANDARD HCO3 24.2 MEQ/L (22.0-26.0); ABG TOTAL CO2 23.7 MEQ/L (22.0-29.0)
[2018-08-14] MEDS ORDERED: CALCIUM GLUCONATE 1,000 MG in NS 100 ML IV ONE (06:30)
[2018-08-14] MEDS ORDERED: LEVEMIR (INSULIN DETEMIR) 1 UNITS/0.01ML SC ONE (08:15)
[2018-08-14] MEDS: ALBUTEROL SULFATE 2.5 MG/0.5 ML INH NEB SOLN NEB SCH ×4 (08:25→20:00)
--- NOTE | 2018-08-14 09:17 | REP ---
Portable chest x-ray: Two views. History: Intubation. Comparison study: August 13, 2018. Findings: Pacemaker leads are again seen. Left internal jugular central venous line is noted unchanged in position. A midline catheter is visible in the right upper extremity. There is hazy opacity behind the heart obscuring left hemidiaphragm medially which may reflect left lower lobe atelectasis and/or small amount of effusion. There is discoid atelectasis in the right base which is a little more prominent today. Otherwise unchanged. Electronically Signed by Everett Kent MD 08/14/2018 09:09 A
[2018-08-14] MEDS: PANTOPRAZOLE 40MG INJ (PROTONIX) (C9113) IV SCH (09:18)
[2018-08-14] MEDS: CARVedilol 6.25 MG TAB PO SCH ×2 (09:18→20:58)
[2018-08-14] MEDS: ASPIRIN 81 MG ENTERIC TAB PO SCH (09:18)
[2018-08-14] MEDS: **hydrALAZINE** 10 MG TAB PO SCH ×4 (09:19→20:58)
[2018-08-14] MEDS: CLOPIDOGREL 75 MG TAB PO SCH (09:19)
[2018-08-14] MEDS: AMIODARONE 200 MG TAB (PACERONE) PO SCH (09:19)
--- NOTE | 2018-08-14 13:24 | IPNPDOC ---
Text Note Date of Service The patient was seen on 08/14/18. NOTE Subjective: Patient states he is feeling much better. Denies chest pain or bob rtness of breath. Tolerating diet. Objective: Vitals: (see below) General: No acute distress, laying comfortably in bed. HEENT: Moist mucous membranes. Neck: No JVD or lymphadenopathy Cardiac: RRR, No murmurs Pulm: Diminished breath sounds at the bases b/l. No wheezing, rhonchi Abd: NT/ND + BS Ext: Trace edema edema or cyanosis Labs (see below) Assessment/Plan 1. Acute on chronic anemia- ? Secondary to underlying illness, renal failure, as well as possible GI bleed. Status post 3 units PRBC. Stable at this time. Will need an endoscopy once medically stable. 2. Acute renal failure-received crrt. Appreciate Dr. Hansen's input. 3. Persistent leukocytosis, improving. On Zosyn/vancomycin/Diflucan. Patient's disease consulted by Dr. Garces. Blood cultures negative. Sputum culture with strep agalactiae 4. ACS- on aspirin/Plavix/Coreg/hydralazine/isosorbide. ICD turned back on this patient is full code now. Appreciate Dr. Giordano's input. 5. Acute pancreatitis improved. No abdominal pain at this time. Discontinue TPN. Advance diet as tolerated. 6. Liver shock- secondary to the above improved. 7. Generalized weakness and deconditioning/particularly malnutrition- secondary to the above. Diet being advanced as tolerated. Status post TPN. We will obtain physical therapy consult. 8. History of GERD on PPI 9. Diabetes mellitus- on Levemir and sliding scale insulin DVT prophy: Heparin subcutaneous Overall prognosis guarded. VS,Fishbone, I+O VS, Fishbone, I+O Laboratory Tests 08/13/18 17:53 Red Blood Count 2.56 L, Mean Corpuscular Volume 92.6, Mean Corpuscular Hemoglobin 30.1, Mean Corpuscular Hemoglobin Concent 32.5, Red Cell Distribution Width 16.4 H, Calcium Level 7.5 L 08/14/18 05:35 Red Blood Count 2.79 L, Mean Corpuscular Volume 90.0, Mean Corpuscular Hemoglobin 29.7, Mean Corpuscular Hemoglobin Concent 33.1, Red Cell Distribution Width 15.3 H, Calcium Level 7.5 L, Phosphorus Level 2.5, Aspartate Amino Transf (AST/SGOT) 60 H, Alanine Aminotransferase (ALT/SGPT) 116 H, Lactate Dehydrogenase 486 H, Total Creatine Kinase 42, Alkaline Phosphatase 188 H, Total Bilirubin 1.4 H, Triglycerides Level 282 H, Cholesterol Level 106, Total Protein 4.6 L, Albumin 1.2 L Vital Signs Date Time Temp Pulse Resp B/P (MAP) Pulse Ox O2 Delivery O2 Flow Rate FiO2 08/14/18 13:03 124/62 08/14/18 09:18 78 08/14/18 08:00 97.8 20 96 Room Air 08/12/18 20:00 08/12/18 17:00 1.0 I&O- Last 24 Hours up to 6 AM 08/14/18 06:00 Intake Total 5349 ml Output Total 4334 ml Balance 1015 ml FARHAD DIALLO MD Aug 14, 2018 13:24
--- NOTE | 2018-08-14 20:34 | CR ---
DATE OF CONSULTATION: 08/13/2018 REASON FOR CONSULTATION: Evaluation of pancreatitis and antibiotic de-escalation by Dr. Garces. HISTORY OF PRESENT ILLNESS: Mr. Shipman is a 47-year-old gentleman who was admitted on July 31 with complaint of chest pain, shortness of breath and respiratory distress that started about a day prior to admission. The patient was intubated on arrival to the emergency room and was extubated yesterday. He is doing much better but has developed acute kidney injury and is on dialysis. He denies any chest pain or cough at this time. He denies any abdominal pain. He was afebrile on the day of admission but started developing fever on August 03. The patient's initial presentation was felt to be cardiac in origin. His troponin was up to 15.2. Blood cultures on admission were negative and group sputum culture had a few group B strep which was penicillin sensitive. CT angiogram done on 07/31 was consistent with pulmonary edema versus multifocal pneumonia but no definite pulmonary embolism. There was some bilateral lower lobe consolidation and ground-glass opacities and small pleural effusions. The patient was initially treated with IV vancomycin and Zosyn which he has continued on since admission, so he is currently day number 14. The patient had worsening white count and his white count was 33.9 on August 09. He was then diagnosed with pancreatitis on a CT abdomen and pelvis with fairly advanced diffuse peripancreatic edema. No abscess or evidence of significant pancreatic necrosis was noted. He had mild ileus and right inguinal hernia. He was continued on the same antibiotic but fluconazole was added because of worsening leukocytosis. His lipase was only 120. Today the patient is alert, oriented, making jokes. He has no significant complaint. He is undergoing hemodialysis. PAST MEDICAL HISTORY: 1. Significant for coronary artery disease status post coronary artery bypass grafting (CABG) in [place] 10 years ago in 2000. 2. Cardiac catheterization two years ago. 3. History of congestive heart failure with decreased ejection fraction. 4. Status post biventricular implantable cardioverter. 5. History of insulin-dependent diabetes with diabetic neuropathy. 6. History of chronic pulmonary obstructive disease (COPD). 7. Gastroesophageal reflux disease. 8. Hypertension. 9. Hyperlipidemia. 10. Benign prostatic hypertrophy. 11. History of cerebrovascular accident (CVA). 12. History of methicillin resistant Staphylococcus aureus (MRSA) sternal osteomyelitis post CABG. 13. Degenerative joint disease. 14. Complex migraine. PAST SURGICAL HISTORY: 1. Vasectomy. 2. CABG. 3. Left wrist surgery. 4. Partial removal of sternum for chronic osteomyelitis and biventricular ICD placement 2015. FAMILY HISTORY: Father is . Mother with hypertension and heart disease. Cousin has heart disease. He lives with his fiance who is his healthcare proxy. SOCIAL HISTORY: He is an active smoker of two packs a day since he was in his teens. He denies any alcohol use or drug abuse. ALLERGIES: No known drug allergies. MEDICATIONS: - aspirin 81 mg by mouth daily - amiodarone 400 mg by mouth daily - Coreg 26.5 mg by mouth twice a day - Levemir 25 units sub cu nightly - insulin sliding scale - hydralazine 10 mg by mouth four times a day - Isordil 10 mg by mouth three times a day - vancomycin 08/13 a dose was given 1 gram intravenously - Zosyn 3.375 grams IV every 6 hours, he is currently day number 14 - Protonix 40 mg IV daily - Plavix 75 mg by mouth daily. LABORATORY DATA: White count is 16.1, hemoglobin 7.7, hematocrit 23.7, platelets 294. Sodium 136, potassium 3.9, chloride 103, bicarb 24, BUN 45, creatinine 2.36, glucose 557, calcium 7.5, phosphorus 2.9, magnesium 2.1. PTT 35.5. Arterial blood gas (ABG) on August 13: pH 7.44, pCO2 31, pO2 98, O2 sat 98%. Gastrointestinal (GI) panel was done on 08/10 and was negative by multiplex PCR. Blood cultures on 08/10 two sets were no growth. Catheter tip culture on 08/10 was negative for final and stool for Clostridium difficile on 08/08 was negative. PHYSICAL EXAMINATION: VITAL SIGNS: Temperature is 98.3, pulse 91, respirations 20, blood pressure 113/65, O2 sat 95% on room air. HEART: Normal S1-S2 regular. LUNGS: Clear. No wheezes or rhonchi. ABDOMEN Soft, mildly distended, nontender. Bowel sounds present. EXTREMITIES: No clubbing or cyanosis. No edema. NECK: Neck is supple. No jugular venous distention (JVD) appreciated. NEUROLOGIC: : Exam alert and oriented times three. SKIN: The patient has small ulcerations on both pinna. The tip of his nose has a small hemorrhagic blister. HEENT: Oropharynx is clear with no lesion. No thrush. IMPRESSION: This is a 47-year-old gentleman with a history of coronary artery disease, congestive heart failure who was admitted for acute coronary syndrome with a troponin of 15. He had a sputum culture originally that had Group B strep but very few, chest x-ray was more consistent with congestive heart failure. The patient then developed acute pancreatitis, probably related to myocardial infarction, hypotension on pressors and had a worsening leukocytosis. He has received so far two weeks of IV vancomycin and Zosyn. He was then started on fluconazole and is currently day number six. He is clinically finally improving and has been extubated, doing well with no major complaints at this time. PLAN: 1. Discontinue IV Zosyn and vancomycin. He has finished a 14-day course. Pancreatitis does not need antibiotics and on CT there is no evidence of abscess to suggest any infection abscess or pancreatitic pseudocyst. His leukocytosis could be explained based on severe pancreatitis. 2. Discontinue IV fluconazole. There was no indication for that. Sputum and yeast in the sputum does not need treatment and blood cultures and catheter cultures were negative, there is no evidence of candidemia. The case has been discussed with Dr. Persaud who attended the patient last week and agrees with the plan. KENDELL
[2018-08-14] MEDS: LEVEMIR (INSULIN DETEMIR) 1 UNITS/0.01ML SC SCH (20:59)
--- NOTE | 2018-08-14 21:54 | IPN ---
DATE: 08/14/2018 Mr. Shipman is seen this morning during continuous renal replacement therapy (CRRT) in intensive care unit on his bedside. He is feeling much better and wants to go home. I have explained to him about his condition and anuric acute renal failure requiring dialysis. He just recovered from cardiogenic and septic shock and acute pancreatitis. He is tolerating oral liquids, but no other diet has been advanced yet. PHYSICAL EXAMINATION: Temperature 99 degrees Fahrenheit, heart rate 76 per minute, respiratory rate 20 per minute, blood pressure 142/64 mm of mercury, and oxygen saturation 98% on room air. His head is atraumatic. Neck is supple, and jugular venous distention (JVD) seems to be mildly elevated. His central venous pressure (CVP) is reported at 8. He has a left-sided internal jugular vein triple-lumen catheter. His heart sounds are regular and lungs with slightly diminished breath sounds at bases. Abdomen is mildly distended and tender. Bowel sounds are present. Extremities have no cyanosis or clubbing. Neurologically, he is awake, alert, and oriented times three. Today's labs show WBC count 17.9, hemoglobin 8.3, hematocrit 25.1, platelets 311. Sodium 136, potassium 4.2, CO2 of 22, BUN 44, and creatinine 2.31. Glucose 344 and calcium 7.5. PROBLEMS: 1. Oliguric acute renal failure. The patient remains oliguric and dialysis dependent. He is still on CRRT, which will be continued until 6 p.m. today, and then we will stop it. We will remove his femoral catheter today and then watch him for next 24 hours. If his kidney function does not improve, then we will get a new catheter placed, probably a Perma-Cath, on . 2. Nutrition. The patient is still on total parenteral nutrition (TPN), which will be stopped at 6 p.m. today, and we will consider to advance his diet if tolerated. 3. Anemia. His anemia is stable at present and no urgent intervention indicated. 4. Acute pancreatitis. The patient has been on only liquid diet. He is not complaining of any abdominal pain at present, and hemodynamically he is stable. Remains to be seen how he tolerates his diet when advanced. 5. Hyperglycemia. Most likely this is related to TPN and acute pancreatitis. We are going to stop his TPN, which is likely to help with his hyperglycemia. 6. Generalized weakness and deconditioning. The patient is likely to require physical therapy, and once he is off CRRT and his femoral catheter is removed, then we can order physical therapy evaluation. All in all, Mr. Shipman is doing much better, and other than no recovery of kidney function so far, he has made significant improvement over the last 3-4 days. We will switch him to intermittent hemodialysis now, as he is hemodynamically stable.
[2018-08-15] VITALS (24 sets, daily range): BP systolic 94–145; BP diastolic 55–86
[2018-08-15] MEDS: SODIUM CHLORIDE 0.9% INJ 10 ML SYR IV SCH ×3 (05:11→21:10)
[2018-08-15 05:22] LABS: HEMATOCRIT 22.5 % (42.0-52.0); HEMOGLOBIN 7.3 g/dl (13.5-17.5); MEAN CORPUSCULAR HEMOGLOBIN 29.3 pg (27.0-33.0); MEAN CORPUSCULAR HGB CONC 32.4 g/dl (32.0-36.5); MEAN CORPUSCULAR VOLUME 90.4 fl (80.0-96.0); PLATELET COUNT, AUTOMATED 366 10^3/uL (150-450); RED BLOOD COUNT 2.49 10^6/uL (4.30-6.10); WHITE BLOOD COUNT 17.7 10^3/uL (4.0-10.0)
[2018-08-15 05:47] LABS: ALBUMIN 1.2 GM/DL (3.2-5.2); BILIRUBIN,TOTAL 1.2 MG/DL (0.2-1.0); CALCIUM LEVEL 7.4 MG/DL (8.5-10.1); CREATININE FOR GFR 3.16 MG/DL (0.70-1.30); GLOMERULAR FILTRATION RATE 22.4 (>60); POTASSIUM SERUM 4.6 MEQ/L (3.5-5.1); TOTAL PROTEIN 4.7 GM/DL (6.4-8.2)
[2018-08-15] MEDS: ISOSORBIDE DIN (ISORDIL) 10 MG TAB PO SCH ×3 (06:24→17:45)
[2018-08-15] MEDS: ALBUTEROL SULFATE 2.5 MG/0.5 ML INH NEB SOLN NEB SCH ×4 (07:12→20:51)
[2018-08-15] MEDS ORDERED: HumaLOG INSULIN (NovoLOG) PER UNIT SC SCH (07:30)
[2018-08-15] MEDS: HumaLOG INSULIN (NovoLOG) PER UNIT SC SCH ×4 (08:53→20:43)
[2018-08-15] MEDS: PANTOPRAZOLE 40MG INJ (PROTONIX) (C9113) IV SCH ×2 (08:57→20:02)
[2018-08-15] MEDS: CLOPIDOGREL 75 MG TAB PO SCH (08:57)
[2018-08-15] MEDS: LEVEMIR (INSULIN DETEMIR) 1 UNITS/0.01ML SC SCH ×2 (08:57→20:43)
[2018-08-15] MEDS: ASPIRIN 81 MG ENTERIC TAB PO SCH (08:58)
[2018-08-15] MEDS: AMIODARONE 200 MG TAB (PACERONE) PO SCH (08:58)
[2018-08-15] MEDS: CARVedilol 6.25 MG TAB PO SCH ×2 (08:58→20:03)
[2018-08-15] MEDS: **hydrALAZINE** 10 MG TAB PO SCH ×4 (08:59→20:02)
--- NOTE | 2018-08-15 11:57 | IPNPDOC ---
Text Note Date of Service The patient was seen on 08/15/18. NOTE Subjective: Pt had LUQ pain when diet was advanced. +nausea. no vomiting. No c hest/palpitations. Has bright red blood per rectum this morning. Objective: Vitals: (see below) General: No acute distress, laying comfortably in bed. HEENT: Moist mucous membranes. Neck: No JVD or lymphadenopathy Cardiac: RRR, No murmurs Pulm: Diminished breath sounds at the bases b/l. No wheezing, rhonchi Abd: TTP LUQ. No rebound/guarding/rigidity. Mildly distended. + BS Ext: +edema No cyanosis Labs (see below) Assessment/Plan 1. Acute on chronic anemia- ? Secondary to underlying illness, renal failure, as well as possible GI bleed. Status post 3 units PRBC. Stable at this time. Will n eed an endoscopy once medically stable. Additional 1U PRBC on 08/15. Dr. Crandall consulted as pt is having BRBPR. 2. Acute renal failure-received crrt. Appreciate Dr. Hansen's input. 3. Persistent leukocytosis, improving. On Zosyn/vancomycin/Diflucan. Patient's disease consulted by Dr. Garces. Blood cultures negative. Sputum culture with strep agalactiae 4. ACS- on aspirin/Plavix/Coreg/hydralazine/isosorbide. ICD turned back on this patient is full code now. Appreciate Dr. Giordano's input. 5. Acute pancreatitis improved. No abdominal pain at this time. Discontinue TPN. Advance diet as tolerated. 6. Liver shock- secondary to the above improved. 7. Generalized weakness and deconditioning/particularly malnutrition- secondary to the above. Diet being advanced as tolerated. Status post TPN. We will obtain physical therapy consult. 8. History of GERD on PPI 9. Diabetes mellitus- on Levemir and sliding scale insulin DVT prophy: Heparin subcutaneous Overall prognosis guarded. VS,Fishbone, I+O VS, Fishbone, I+O Laboratory Tests 08/15/18 05:08 Red Blood Count 2.49 L, Mean Corpuscular Volume 90.4, Mean Corpuscular Hemoglobin 29.3, Mean Corpuscular Hemoglobin Concent 32.4, Red Cell Distribution Width 15.0 H, Calcium Level 7.4 L, Aspartate Amino Transf (AST/SGOT) 58 H, Alanine Aminotransferase (ALT/SGPT) 98 H, Alkaline Phosphatase 198 H, Total Bi lirubin 1.2 H, Total Protein 4.7 L, Albumin 1.2 L Vital Signs Date Time Temp Pulse Resp B/P (MAP) Pulse Ox O2 Delivery O2 Flow Rate FiO2 08/15/18 11:00 97.9 76 20 106/57 (73) 95 Room Air 08/12/18 20:00 08/12/18 17:00 1.0 I&O- Last 24 Hours up to 6 AM 08/15/18 06:00 Intake Total 1991 ml Output Total 285 ml Balance 1706 ml FARHAD DIALLO MD Aug 15, 2018 11:57
--- NOTE | 2018-08-15 14:32 | REP ---
CT abdomen and pelvis without IV or oral contrast: History: Increased left upper quadrant pain. Known pancreatitis. Comparison CT study is from August 10, 2018. CT findings: Small bilateral pleural effusions are again seen but these have increased in the interval since the 10 August 2018 study. Bilateral lower lobe atelectatic changes with air bronchograms are again seen. There is increased upper abdominal ascites bilaterally. There is marked pancreatic swelling and peripancreatic edema again noted probably increased somewhat as well. No abscess is visualized. No evidence of free intraperitoneal air seen. Sahni catheter is again noted. Right inguinal hernia containing ascitic fluid is seen. Impression: Interval increase in peripancreatic edema, upper abdominal and pelvic ascites, and bilateral pleural fluid when compared with the 10 August 2018 study. Electronically Signed by vEerett Kent MD 08/15/2018 05:46 P
[2018-08-15] MEDS ORDERED: LIDOCAINE 2% MDV 20 ML VIAL As Ordered ONE (16:26)
[2018-08-15] MEDS ORDERED: HEPARIN 1,000 UNITS/ML 10ML VIAL (FOR RADIOLOGY& DIALYSIS ONLY) As Ordered ONE (16:27)
[2018-08-15 17:57] LABS: BASO # 0.1 10^3/uL (0.0-0.2); BASO % 0.4 % (0.0-1.0); EOS # 0.3 10^3/uL (0.0-0.50); EOS % 1.6 % (0.0-3.0); HEMATOCRIT 25.2 % (42.0-52.0); HEMOGLOBIN 8.5 g/dl (13.5-17.5); LYMPH # 1.3 10^3/uL (1.5-4.5); LYMPH % 7.8 % (24.0-44.0); MEAN CORPUSCULAR HEMOGLOBIN 30.2 pg (27.0-33.0); MEAN CORPUSCULAR HGB CONC 33.7 g/dl (32.0-36.5); MEAN CORPUSCULAR VOLUME 89.7 fl (80.0-96.0); MONO # 1.2 10^3/uL (0.0-0.8); MONO % 6.9 % (0.0-5.0); NEUTROPHILS # 14.1 10^3/uL (1.8-7.7); NEUTROPHILS % 81.9 % (36.0-66.0); PLATELET COUNT, AUTOMATED 400 10^3/uL (150-450); RED BLOOD COUNT 2.81 10^6/uL (4.30-6.10); WHITE BLOOD COUNT 17.1 10^3/uL (4.0-10.0)
[2018-08-15] MEDS: NS 1,000 ML IV SCH ×2 (18:10→21:11)
[2018-08-15 18:38] LABS: ALBUMIN 1.3 GM/DL (3.2-5.2); BILIRUBIN,TOTAL 1.1 MG/DL (0.2-1.0); CALCIUM LEVEL 7.9 MG/DL (8.5-10.1); CREATININE FOR GFR 4.01 MG/DL (0.70-1.30); MAGNESIUM LEVEL 2.1 MG/DL (1.8-2.4); POTASSIUM SERUM 4.6 MEQ/L (3.5-5.1); TOTAL PROTEIN 5.7 GM/DL (6.4-8.2)
--- NOTE | 2018-08-15 21:17 | IPN ---
DATE: 08/15/2018 Mr. Shipman is seen this morning on his bedside. He complains of abdominal discomfort and bloating. He is still on full liquid diet. He denies any dyspnea or chest pain and his oxygen saturation is in the high 90s on room air. Urine output is still minimal and CRRT was stopped yesterday evening. PHYSICAL EXAMINATION Temperature 98.2 degrees Fahrenheit, heart rate 88 per minute and respiratory rate 18 per minute. Blood pressure 137/63 mmHg and oxygen saturation 97% on room air. Head: Is atraumatic. Neck is supple and jugular venous distention (JVD) is minimally elevated. There is a central line in left internal jugular vein. He has no oral thrush or ulcers. Heart: Sounds are regular and lungs with slightly diminished breath sounds at bases. Abdomen is bloated, soft and mildly tender. Fluid shifting and thrill is present due to mild ascites. Bowel sounds are present. Extremities: Have no cyanosis or clubbing. Neurologically he is awake and alert. LABS: Today's labs show WBC count 17.7, hemoglobin 7.3 and hematocrit 22.5. Sodium 136, potassium 4.6, CO2 23, BUN 59 and creatinine 3.16. Glucose 216 and calcium 7.4. PROBLEMS: 1. Acute renal failure. The patient remains anuric and is likely to require dialysis at least for awhile. He was on CRRT for the last couple of weeks which was stopped last evening as he is now hemodynamically stable and not receiving much IV fluids. We will plan to perform regular hemodialysis tomorrow. I have asked Dr. Sanon to place a new Perma-Cath for dialysis. 2. Anemia. His anemia is worsened and he is going to have 1 unit of packed RBCs today. We will consider to transfuse further during dialysis if needed. 3. Acute pancreatitis. The patient remains with abdominal bloating and still on full liquid diet. His lipase level will need to be repeated. 4 Hyperglycemia. Mostly it was related to acute pancreatitis and TPN. His TPN has been stopped and hyperglycemia is also improving now. 5. Generalized weakness and deconditioning. I have discussed with the patient and explained to him about need for further stay in the hospital as he is insisting to go home. He is very weak and still has significant problems.
[2018-08-16] VITALS (9 sets, daily range): BP systolic 112–149; BP diastolic 55–78
[2018-08-16 04:33] LABS: HEMOGLOBIN 8.5 g/dl (13.5-17.5); MEAN CORPUSCULAR HEMOGLOBIN 29.9 pg (27.0-33.0); MEAN CORPUSCULAR HGB CONC 32.7 g/dl (32.0-36.5); MEAN CORPUSCULAR VOLUME 91.5 fl (80.0-96.0); PLATELET COUNT, AUTOMATED 437 10^3/uL (150-450); RED BLOOD COUNT 2.84 10^6/uL (4.30-6.10); WHITE BLOOD COUNT 17.3 10^3/uL (4.0-10.0)
[2018-08-16 04:52] LABS: ALBUMIN 1.3 GM/DL (3.2-5.2); BILIRUBIN,TOTAL 1.2 MG/DL (0.2-1.0); CALCIUM LEVEL 7.9 MG/DL (8.5-10.1); CREATININE FOR GFR 4.74 MG/DL (0.70-1.30); POTASSIUM SERUM 4.8 MEQ/L (3.5-5.1); TOTAL PROTEIN 5.7 GM/DL (6.4-8.2)
[2018-08-16] MEDS: SODIUM CHLORIDE 0.9% INJ 10 ML SYR IV SCH ×3 (06:00→21:39)
[2018-08-16] MEDS: ISOSORBIDE DIN (ISORDIL) 10 MG TAB PO SCH ×3 (06:11→17:45)
[2018-08-16] MEDS: ALBUTEROL SULFATE 2.5 MG/0.5 ML INH NEB SOLN NEB SCH ×4 (07:33→20:08)
[2018-08-16] MEDS: ASPIRIN 81 MG ENTERIC TAB PO SCH (08:00)
[2018-08-16] MEDS: PANTOPRAZOLE 40MG INJ (PROTONIX) (C9113) IV SCH ×2 (08:00→21:40)
[2018-08-16] MEDS: CLOPIDOGREL 75 MG TAB PO SCH (08:00)
[2018-08-16] MEDS: AMIODARONE 200 MG TAB (PACERONE) PO SCH (08:00)
[2018-08-16] MEDS: LEVEMIR (INSULIN DETEMIR) 1 UNITS/0.01ML SC SCH ×2 (08:01→21:39)
[2018-08-16] MEDS: HumaLOG INSULIN (NovoLOG) PER UNIT SC SCH ×4 (08:01→21:00)
[2018-08-16] MEDS: **hydrALAZINE** 10 MG TAB PO SCH ×4 (08:01→21:42)
[2018-08-16] MEDS: CARVedilol 6.25 MG TAB PO SCH ×2 (08:02→21:42)
[2018-08-16] MEDS ORDERED: HEPARIN 1,000 UNITS/ML 10ML VIAL (FOR RADIOLOGY& DIALYSIS ONLY) XX ONE (12:30)
[2018-08-16] MEDS ORDERED: HEPARIN 1,000 UNITS/ML 10ML VIAL (FOR RADIOLOGY& DIALYSIS ONLY) IV ONE (12:30)
[2018-08-16] MEDS: ONDANSETRON 4MG/2ML VIAL (J2405) IV PRN (13:50)
--- NOTE | 2018-08-16 14:17 | IPNPDOC ---
Text Note Date of Service The patient was seen on 08/16/18. NOTE Subjective: Pt had LUQ pain improving. +nausea. no vomiting. No chest/palpita tions. No bright red blood per rectum this morning. Objective: Vitals: (see below) General: No acute distress, laying comfortably in bed. HEENT: Moist mucous membranes. Neck: No JVD or lymphadenopathy. Cardiac: RRR, No murmurs Pulm: Diminished breath sounds at the bases b/l. No wheezing, rhonchi Abd: TTP LUQ. No rebound/guarding/rigidity. Mildly distended. + BS Ext: +edema No cyanosis Labs (see below) Assessment/Plan 1. Acute on chronic anemia- ? Secondary to underlying illness, renal failure, as well as possible GI bleed. Status post 3 units PRBC. Stable at this time. Will need an endoscopy once medically stable. Additional 1U PRBC on 08/15. Dr. Crandall consulted as pt had BRBPR. 2. Acute renal failure-received crrt. Appreciate Dr. Hansen's input. 3. Persistent leukocytosis, improving. On Zosyn/vancomycin/Diflucan. Patient's disease consulted by Dr. Garces. Blood cultures negative. Sputum culture with strep agalactiae 4. ACS- on aspirin/Plavix/Coreg/hydralazine/isosorbide. ICD turned back on this patient is full code now. Appreciate Dr. Giordano's input. 5. Acute pancreatitis improved. No abdominal pain at this time. Discontinue TPN. Advance diet as tolerated. 6. Liver shock- secondary to the above improved. 7. Generalized weakness and deconditioning/particularly malnutrition- secondary to the above. Diet being advanced as tolerated. Status post TPN. We will obtain physical therapy consult. 8. History of GERD on PPI 9. Diabetes mellitus- on Levemir and sliding scale insulin DVT prophy: Heparin subcutaneous Overall prognosis guarded. VS,Fishbone, I+O VS, Fishbone, I+O Laboratory Tests 08/15/18 17:44 Red Blood Count 2.81 L, Mean Corpuscular Volume 89.7, Mean Corpuscular Hemoglobin 30.2, Mean Corpuscular Hemoglobin Concent 33.7, Red Cell Distribution Width 14.9 H, Neutrophils (%) (Auto) 81.9 H, Lymphocytes (%) (Auto) 7.8 L, Monocytes (%) (Auto) 6.9 H, Eosinophils (%) (Auto) 1.6, Basophils (%) (Auto) 0.4, Neutrophils # (Auto) 14.1 H, Lymphocytes # (Auto) 1.3 L, Monocytes # (Auto) 1.2 H, Eosinophils # (Auto) 0.3, Basophils # (Auto) 0.1, Calcium Level 7.9 L, Aspartate Amino Transf (AST/SGOT) 55 H, Alanine Aminotransferase (ALT/SGPT) 89 H, Alkaline Phosphatase 207 H, Total Bilirubin 1.1 H, Total Protein 5.7 #L, Albumin 1.3 L 08/16/18 04:00 Red Blood Count 2.84 L, Mean Corpuscular Volume 91.5, Mean Corpuscular Hemoglobin 29.9, Mean Corpuscular Hemoglobin Concent 32.7, Red Cell Distribution Width 15.0 H, Calcium Level 7.9 L, Aspartate Amino Transf (AST/SGOT) 52 H, Alanine Aminotransferase (ALT/SGPT) 86 H, Alkaline Phosphatase 197 H, Total Bilirubin 1.2 H, Total Protein 5.7 L, Albumin 1.3 L Vital Signs Date Time Temp Pulse Resp B/P (MAP) Pulse Ox O2 Delivery O2 Flow Rate FiO2 08/16/18 10:00 87 18 123/59 (80) 97 Room Air 08/16/18 08:00 98.9 08/12/18 20:00 08/12/18 17:00 1.0 I&O- Last 24 Hours up to 6 AM 08/16/18 06:00 Intake Total 590 ml Output Total 0 ml Balance 590 ml FARHAD DIALLO MD Aug 16, 2018 14:17
[2018-08-17] VITALS: BP 138/65
[2018-08-17] MEDS ORDERED: MORPHINE 4 MG/ML 1ML VIAL/SYRINGE (J2270) IV ONE (03:15)
[2018-08-17 04:00] VITALS: BP 143/68
[2018-08-17 05:11] LABS: HEMATOCRIT 23.7 % (42.0-52.0); HEMOGLOBIN 7.6 g/dl (13.5-17.5); MEAN CORPUSCULAR HEMOGLOBIN 29.8 pg (27.0-33.0); MEAN CORPUSCULAR HGB CONC 32.1 g/dl (32.0-36.5); MEAN CORPUSCULAR VOLUME 92.9 fl (80.0-96.0); PLATELET COUNT, AUTOMATED 426 10^3/uL (150-450); RED BLOOD COUNT 2.55 10^6/uL (4.30-6.10); WHITE BLOOD COUNT 14.4 10^3/uL (4.0-10.0)
[2018-08-17 05:31] LABS: ALBUMIN 1.3 GM/DL (3.2-5.2); BILIRUBIN,TOTAL 0.8 MG/DL (0.2-1.0); CALCIUM LEVEL 7.4 MG/DL (8.5-10.1); CREATININE FOR GFR 4.03 MG/DL (0.70-1.30); GLOMERULAR FILTRATION RATE 16.9 (>60); POTASSIUM SERUM 4.5 MEQ/L (3.5-5.1); TOTAL PROTEIN 4.7 GM/DL (6.4-8.2)
[2018-08-17] MEDS: SODIUM CHLORIDE 0.9% INJ 10 ML SYR IV SCH ×3 (06:10→21:51)
[2018-08-17] MEDS: ISOSORBIDE DIN (ISORDIL) 10 MG TAB PO SCH ×3 (06:10→16:39)
[2018-08-17] MEDS: ALBUTEROL SULFATE 2.5 MG/0.5 ML INH NEB SOLN NEB SCH ×4 (07:46→20:48)
[2018-08-17] MEDS: **hydrALAZINE** 10 MG TAB PO SCH ×4 (08:41→21:50)
[2018-08-17] MEDS: CARVedilol 6.25 MG TAB PO SCH ×2 (08:42→21:49)
[2018-08-17] MEDS: ASPIRIN 81 MG ENTERIC TAB PO SCH (08:42)
[2018-08-17] MEDS: CLOPIDOGREL 75 MG TAB PO SCH (08:42)
[2018-08-17] MEDS: AMIODARONE 200 MG TAB (PACERONE) PO SCH (08:42)
[2018-08-17] MEDS: LEVEMIR (INSULIN DETEMIR) 1 UNITS/0.01ML SC SCH (08:43)
[2018-08-17] MEDS: PANTOPRAZOLE 40MG INJ (PROTONIX) (C9113) IV SCH ×2 (08:43→21:46)
[2018-08-17] MEDS: HumaLOG INSULIN (NovoLOG) PER UNIT SC SCH ×3 (08:43→18:39)
[2018-08-17] MEDS ORDERED: MORPHINE 4 MG/ML 1ML VIAL/SYRINGE (J2270) IV PRN (08:45)
[2018-08-17] MEDS: SODIUM CHLORIDE 0.9% INJ 10 ML SYR IV PRN ×2 (08:54→16:41)
[2018-08-17 12:00] VITALS: BP 140/66
--- NOTE | 2018-08-17 12:39 | REP ---
CT ABDOMEN PELVIS WITHOUT CONTRAST: 08/17/2018. COMPARISON: 08/15/2018, 08/10/2018. CLINICAL HISTORY: Left upper and lower quadrant pain. Acute pancreatitis. TECHNIQUE: Noncontrast images were performed. Coronal sagittal reconstructions provided. FINDINGS CT ABDOMEN: There are bilateral pleural effusions that are the same or slightly larger than the previous study. Consolidative atelectasis or infiltrates in both lower lung zones likely compressive atelectatic change. Heart size unchanged. Pacer wires are again seen. No definite hiatal hernia. There is a small amount of ascites in the right upper quadrant, trace on the left. Liver and spleen are unchanged. I see no calcified gallstone. Gallbladder is filled but not abnormally distended. There are peripancreatic inflammatory changes, similar to the previous study. I do not see evidence of free air or peripancreatic abscess. Edema of the small bowel wall loops near the pancreatic bed. No abnormal dilated loops, air-fluid levels or pneumatosis. There are calcifications near the pancreatic body and tail which are felt to be mostly splenic arterial in origin. There is atherosclerotic calcifications throughout the aorta and branches without aneurysm. There is no periaortic adenopathy. Adrenal glands show slight thickening of limbs unchanged and suggesting adrenal hyperplasia. Kidneys symmetric without hydronephrosis, mass or cyst. No stone. Colon shows some slightly hyperdense of fluid within likely related to oral contrast from [address] scan. Bones are unchanged without compression deformity in the spine. No destructive lesions. CT PELVIS: The bone windows show no interval change, fracture, destructive lesion or other acute finding. There is no hydronephrosis, hydroureter or ureteral stone. Bladder empty without stone or mass. There is some mild inflammatory changes in the fat in the deep pelvis with small amounts of ascites in the peroneal gutters. Small amount of fluid in the deep pelvis. No perforation or abscess. No definite sign of colitis, diverticulitis, stricture or mass. Fluid about the cecum in the peroneal gutters again noted unchanged. There is a right inguinal hernia with fluid and some omental fat. Rectum appears partially collapsed with slight wall thickening of the rectum and distal sigmoid. No pelvic or inguinal adenopathy. No ventral hernia. IMPRESSION: 1. Findings of acute pancreatitis again noted with peripancreatic edema and ascites in the right upper quadrant, abdominal and pelvic peritoneal gutters into the pelvis. Overall, similar to slightly less ascites compared to the study 2 days ago. 2. No obvious abscess, perforation or free air in the pancreatic bed or elsewhere within the abdomen pelvis. 3. Some minor bowel wall thickening in small bowel loops adjacent to the pancreas and in the distal sigmoid and rectum. 4. Right inguinal hernia with omental fat and fluid into the inguinal canal as before. 5. No abdominal or pelvic pathologic adenopathy, aortic aneurysm, renal, ureteral or bladder stone nor other acute intra-abdominal finding. 6. Bibasilar consolidative atelectasis and bilateral effusions the same or slightly worse than 2 days ago. Electronically Signed by Gavin Valentin MD 08/17/2018 04:54 P
[2018-08-17] MEDS: MORPHINE 4 MG/ML 1ML VIAL/SYRINGE (J2270) IV PRN ×4 (12:43→22:47)
--- NOTE | 2018-08-17 15:01 | IPNPDOC ---
Text Note Date of Service The patient was seen on 08/17/18. NOTE Subjective: Pt with lower quad discomfort and diarrhea. +nausea. no vomiting. No chest/palpitations. No bright red blood per rectum this morning. Objective: Vitals: (see below) General: No acute distress, laying comfortably in bed. HEENT: Moist mucous membranes. Neck: No JVD or lymphadenopathy. Cardiac: RRR, No murmurs Pulm: Diminished breath sounds at the bases b/l. No wheezing, rhonchi Abd: TTP lower quadrants. No rebound/guarding/rigidity. Mildly distended. + BS Ext: +edema No cyanosis Labs (see below) Assessment/Plan 1. Acute on chronic anemia- ? Secondary to underlying illness, renal failure, as well as possible GI bleed. Status post 4 units PRBC. Stable at this time. Will need an endoscopy once medically stable. Dr. Crandall consulted as pt had BRBPR. 2. Acute renal failure-received HD. Appreciate nephro input. 3. Persistent leukocytosis, improving. On Zosyn/vancomycin/Diflucan. Patient's disease consulted by Dr. Garces. Blood cultures negative. Sputum culture with strep agalactiae 4. ACS- on aspirin/Plavix/Coreg/hydralazine/isosorbide. ICD turned back on this patient is full code now. Appreciate Dr. Giordano's input. 5. Acute pancreatitis. Pt with nausea and abdominal pain. Repeat CT abd courtney- pancreatic fluid. TPN restarted as pt unable to tolerate diet. 6. s/p Liver shock- secondary to the above, improved. 7. Generalized weakness and deconditioning/particularly malnutrition- secondary to the above. Diet being advanced as tolerated. Status post TPN. Physical therapy consult. 8. History of GERD on PPI 9. Diabetes mellitus- on Levemir and sliding scale insulin DVT prophy: Heparin subcutaneous Overall prognosis guarded. VS,Fishbone, I+O VS, Fishbone, I+O Laboratory Tests 08/17/18 00:00 Calcium Level 7.4 L, Aspartate Amino Transf (AST/SGOT) 50 H, Alanine Aminotransferase (ALT/SGPT) 67, Alkaline Phosphatase 188 H, Total Bilirubin 0.8, Total Protein 4.7 L, Albumin 1.3 L 08/17/18 04:38 Red Blood Count 2.55 L, Mean Corpuscular Volume 92.9, Mean Corpuscular Hemoglobin 29.8, Mean Corpuscular Hemoglobin Concent 32.1, Red Cell Distribution Width 15.3 H Vital Signs Date Time Temp Pulse Resp B/P (MAP) Pulse Ox O2 Delivery O2 Flow Rate FiO2 08/17/18 12:43 18 08/17/18 12:00 98.9 86 140/66 (90) 92 Room Air 08/12/18 20:00 08/12/18 17:00 1.0 I&O- Last 24 Hours up to 6 AM 08/17/18 06:00 Intake Total 190 ml Output Total 1000 ml Balance -810 ml FARHAD DIALLO MD Aug 17, 2018 15:01
[2018-08-17] MEDS ORDERED: FAT EMULSION IV 20% 500 ML IV SCH (18:00)
[2018-08-17] MEDS ORDERED: SODIUM ACETATE IV SCH ×10 (18:00)
[2018-08-17] MEDS ORDERED: [UNRECOGNIZED DRUG - OTHER] IV SCH ×10 (18:00)
[2018-08-17] MEDS ORDERED: SODIUM CHLORIDE IV SCH ×10 (18:00)
[2018-08-17 20:00] VITALS: BP 144/64
[2018-08-17 23:59] VITALS: BP 128/58
[2018-08-18] MEDS: HumaLOG INSULIN (NovoLOG) PER UNIT SC SCH ×5 (00:05→23:43)
[2018-08-18 04:00] VITALS: BP 145/66
[2018-08-18] MEDS: MORPHINE 4 MG/ML 1ML VIAL/SYRINGE (J2270) IV PRN ×6 (05:04→23:44)
[2018-08-18] MEDS: SODIUM CHLORIDE 0.9% INJ 10 ML SYR IV SCH ×3 (05:20→21:47)
[2018-08-18 05:28] LABS: HEMATOCRIT 27.1 % (42.0-52.0); HEMOGLOBIN 8.8 g/dl (13.5-17.5); MEAN CORPUSCULAR HEMOGLOBIN 29.5 pg (27.0-33.0); MEAN CORPUSCULAR HGB CONC 32.5 g/dl (32.0-36.5); MEAN CORPUSCULAR VOLUME 90.9 fl (80.0-96.0); PLATELET COUNT, AUTOMATED 475 10^3/uL (150-450); RED BLOOD COUNT 2.98 10^6/uL (4.30-6.10); WHITE BLOOD COUNT 14.5 10^3/uL (4.0-10.0)
[2018-08-18 05:56] LABS: ALBUMIN 1.3 GM/DL (3.2-5.2); BILIRUBIN,TOTAL 0.7 MG/DL (0.2-1.0); CALCIUM LEVEL 7.6 MG/DL (8.5-10.1); CREATININE FOR GFR 5.64 MG/DL (0.70-1.30); GLOMERULAR FILTRATION RATE 11.5 (>60); POTASSIUM SERUM 4.8 MEQ/L (3.5-5.1)
[2018-08-18] MEDS: ISOSORBIDE DIN (ISORDIL) 10 MG TAB PO SCH ×3 (06:12→17:22)
[2018-08-18] MEDS: ALBUTEROL SULFATE 2.5 MG/0.5 ML INH NEB SOLN NEB SCH ×4 (07:14→20:52)
[2018-08-18 08:00] VITALS: BP 111/56
--- NOTE | 2018-08-18 08:34 | IPN ---
DATE OF SERVICE: 08/17/2018 SUBJECTIVE: Patient was seen and examined at the bedside. He was laying in the bed. He is hemodynamically stable. His girlfriend was also present at the bedside. He reports that he is still having a lot of loose stools and abdominal pain. However, he started taking the liquid diet and he is slowly advancing it to solids as tolerated. He still continues to be anuric. He was dialyzed yesterday. He tolerated the hemodialysis procedure well, and 1 liter of fluid was removed. OBJECTIVE: VITAL SIGNS: Temperature is 98.9 degrees Fahrenheit. Blood pressure 140/66. Pulse is 86. Respiratory rate of 19. Saturating 92% on room air. INTAKE AND OUTPUT: Urine output is not recorded. Ultrafiltration with hemodialysis was 1 liter. Weight on the bed scale is 85.8 kg. PHYSICAL EXAMINATION: GENERAL: Patient is awake, alert, oriented times three, laying in bed, mild painful distress. HEAD AND NECK EXAM: Extraocular muscles intact. Pupils equally round and reactive to light. Mucous membranes are moist. Neck is supple. He has a right internal jugular (IJ) tunneled hemodialysis catheter, left IJ triple lumen catheter. CARDIOVASCULAR: S1, S2. Trace edema of the bilateral lower extremities. Left-sided automatic implantable cardioverter defibrillator (AICD) was noted. Midline sternotomy scar is also noted. ABDOMEN: Is soft with some guarding. Generalized tenderness all over the abdominal with some rebound tenderness as well. Mild amount of ascites was noted. GENITOURINARY: Bladder is not palpable. MUSCULOSKELETAL: No clubbing or cyanosis. Pulses are 2+. CENTRAL NERVOUS SYSTEM (PEDIATRIC DENTAL ASSISTANT): No focal deficit. Power is 5/5 in all bilateral upper extremities. PSYCHIATRIC: Patient has a depressed mood, but otherwise, he was able to communicate with me. LABORATORY REVIEW: Complete blood count (CBC) showed a WBC of 14.4, hemoglobin 7.6. Platelets are 426. Basic metabolic panel (BMP) showed sodium 139, potassium 4.5, chloride 104, bicarbonate 27, BUN 52, creatinine is 4, calcium 7.4, AST 50, ALT 67, alkaline phosphatase is 188, albumin 1.3. IMAGING: A CAT scan of the abdomen and pelvis was done again today. It showed findings of acute pancreatitis with peripancreatic edema and ascites of the right upper quadrant, abdominal, pelvic and peritoneal gutters. No obvious abscess, perforation or free air was seen in the abdomen. No abdominal or pelvic pathology was noted. CURRENT INPATIENT MEDICATIONS: Patient's medications are all reviewed by me. Patient has been started on total parenteral nutrition (TPN) at this point. Insulin sliding scale is on hold. No other change in the medications today as compared with yesterday. ASSESSMENT AND PLAN: 1. Acute oliguric renal failure. There are no signs of renal recovery at this point. Patient is still anuric. He was dialyzed yesterday. Next hemodialysis will be tomorrow. 2. Anemia in end-stage renal disease. Patient will get 1 unit of packed red blood cells (PRBC) transfusion today. Continue to monitor hemoglobin. Transfuse as needed for hemoglobin below 8. 3. Acute pancreatitis. Patient is still having abdominal pain. He is not able to tolerate oral diet. He has been started on TPN. 4. Hypertension. Blood pressure is controlled. Continue current dose of Coreg 6.25 mg by mouth twice a day, hydralazine 10 mg by mouth four times a day, isosorbide 10 mg by mouth three times a day. 5. Coronary artery disease status post non-ST elevation myocardial infarction (NSTEMI). Patient is currently on aspirin and Plavix. Continue beta-renita. He is not a candidate for angiotensin-converting enzyme (LORI) inhibitors because of acute renal failure. Statins were held because of shock liver. Liver function is improving at this point. 6. Diabetes mellitus, type 2, insulin dependent. Glucose levels are controlled with Levemir and insulin sliding scale. MTDD
[2018-08-18] MEDS: ASPIRIN 81 MG ENTERIC TAB PO SCH (09:00)
[2018-08-18] MEDS: **hydrALAZINE** 10 MG TAB PO SCH ×4 (09:00→21:46)
[2018-08-18] MEDS: AMIODARONE 200 MG TAB (PACERONE) PO SCH (09:00)
[2018-08-18] MEDS: CLOPIDOGREL 75 MG TAB PO SCH (09:00)
[2018-08-18] MEDS: CARVedilol 6.25 MG TAB PO SCH ×2 (09:00→21:47)
[2018-08-18] MEDS: PANTOPRAZOLE 40MG INJ (PROTONIX) (C9113) IV SCH ×2 (09:00→21:47)
[2018-08-18 09:39] LABS: MAGNESIUM LEVEL 2.2 MG/DL (1.8-2.4)
[2018-08-18] MEDS ORDERED: PERCOCET 5MG/325MG TAB PO PRN (09:45)
[2018-08-18] MEDS: PERCOCET 5MG/325MG TAB PO PRN ×2 (09:57→16:10)
[2018-08-18] MEDS ORDERED: HEPARIN 1,000 UNITS/ML 10ML VIAL (FOR RADIOLOGY& DIALYSIS ONLY) IV ONE (10:30)
[2018-08-18] MEDS: LEVEMIR (INSULIN DETEMIR) 1 UNITS/0.01ML SC SCH (10:57)
[2018-08-18] MEDS ORDERED: DARBEPOETIN 100 MCG/0.5 ML *DIALYSIS* SYRINGE (J0882) IV SCH (11:15)
--- NOTE | 2018-08-18 11:34 | CR ---
DATE OF CONSULTATION: 08/17/2018 This is a 47-year-old white male who is admitted to [facility] ([facility]) on 07/31/2018. The patient has multiple medical problems, including a history of coronary artery syndrome, history of coronary artery bypass in 201, cardiac catheterization 2 years ago, history of congestive heart failure (CHF) with decreased ejection fraction status post biventricular implantable cardioverter, history of insulin dependent diabetes with diabetic neuropathy, history of chronic obstructive pulmonary disease (COPD), reflux, hypertension, hyperlipidemia, BPH, history of CVA. 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 Past surgical history is also consistent with mastectomy, coronary artery bypass graft, left wrist surgery and a history of osteomyelitis in 2016. The patient is being seen by GI for apparent one episode of bright red blood per rectum. The patient has chronic anemia. He is on dialysis now after sustaining acute kidney injury after being due to shortness of breath and acute respiratory distress from probable pneumonia. The patient had no complaints of abdominal pain. No nausea, vomiting, fevers, night sweats or shaking chills. Family history is noncontributory. Social history is positive for smoking two packs of cigarettes a day. Denies alcohol abuse. No known declared allergies. Current medications include: - baby aspirin - amiodarone - Coreg - Levemir insulin - hydralazine - Isordil PHYSICAL EXAMINATION: General: He is a well-developed, well-nourished white male Abdomen: Soft, nontender. No masses, guarding, rebound or hepatosplenomegaly. ANALYSIS: Single episode of bright blood per rectum. At present time, the patient is status post [id number] acute myocardial infarction (ID) with a troponin of 15. We are not able to intervene at this juncture due to his severe coronary artery syndrome. The patient has not had any further bouts of rectal bleeding per nurses. When he was in intensive care unit (ICU) NICU, he was severe diarrhea and had a rectal tube. The rectal bleeding could be secondary to trauma from the rectal tube. Analysis: Bright blood per rectum, possibly hemorrhoids or slight trauma from the rectal tube. No further episodes of rectal bleeding has been observed. Nurses state that his stool now is brown and not bright red blood. Plan will be to transfuse the patient as needed. Unfortunately will not be able to intervene with any kind of an endoscopy due to his history of heart disease with recent ID.
--- NOTE | 2018-08-18 13:16 | IPNPDOC ---
Text Note Date of Service The patient was seen on 08/18/18. NOTE I briefly saw Mr. Shipman while he was in dialysis and conversed and examined him. I reviewed his medical records. Full consult to follow. Briefly he is about day 8 on his course from acute pancreatitis presumably secondary to some ischemic effects following myocardial infarction. He has had some gallbladder studies done remotely that shows no presence of stones in the gallbladder. He still has significant abdominal discomfort though he denies any nausea. He at times is able to tolerate some clear foods. He remains on TPN for malnutrition. He had a repeat CT scan today showing some ascites and may be some localized ileus. Impression and plan Subacute course of pancreatitis Malnutrition At this point he does not have any severe inflammatory response related to the pancreatitis. He still has some mild leukocytosis. He has no any evidence of necrosis in his pancreas nor infectious collections. Main concern is his level of nutrition. Patients with severe pancreatitis do much better in their course if they are able to tolerate some oral intake. I spoke to him and told him I will allow him some oral diet but I do not expect him to be able to tolerate heavy meals. He will have some pain associated with the discomfort likewise associated with distention of the stomach. A usually M aggressive and oral feeding and despite the pain will not hold oral intake. He may need TPN. Not able to maintain adequate calorie intake. I'm adding some Ensure to increase his protein intake. I will follow up on him intermittently. VS,Edmundobone, I+O VS, Fishbone, I+O Laboratory Tests 08/18/18 04:52 Calcium Level 7.6 L, Aspartate Amino Transf (AST/SGOT) 43 H, Alanine Aminotransferase (ALT/SGPT) 58, Alkaline Phosphatase 161 H, Total Bilirubin 0.7, Total Protein 5.0 L, Albumin 1.3 L 08/18/18 05:09 Red Blood Count 2.98 L, Mean Corpuscular Volume 90.9, Mean Corpuscular Hemoglobin 29.5, Mean Corpuscular Hemoglobin Concent 32.5, Red Cell Distribution Width 15.6 H Vital Signs Date Time Temp Pulse Resp B/P (MAP) Pulse Ox O2 Delivery O2 Flow Rate FiO2 08/18/18 11:07 20 08/18/18 08:00 100.4 79 111/56 (74) 90 Room Air 08/12/18 20:00 08/12/18 17:00 1.0 I&O- Last 24 Hours up to 6 AM 08/18/18 06:00 Intake Total 1850 ml Output Total 0 ml Balance 1850 ml JUAN DAVID VANCE MD Aug 18, 2018 13:16
--- NOTE | 2018-08-18 15:39 | IPNPDOC ---
Text Note Date of Service The patient was seen on 08/18/18. NOTE Subjective: Pt with LUQ with RLQ pain, sharp, non radiating. Worse with eating. + diarrhea. +nausea. no vomiting. No chest/palpitations. No bright red blood per rectum this morning. Objective: Vitals: (see below) General: No acute distress, laying comfortably in bed. HEENT: Moist mucous membranes. Neck: No JVD or lymphadenopathy. Cardiac: RRR, No murmurs Pulm: Diminished breath sounds at the bases b/l. No wheezing, rhonchi Abd: TTP LUQ and RLQ quadrants. No rebound/guarding/rigidity. Mildly distended. + BS Ext: +edema No cyanosis moving all extremities. following commands. Labs (see below) Assessment/Plan 1. Persistent abdominal pain - likely 2/2 pancreatitis. ? Colonic thickening on CT abd/pelvis. Dr. Holt consulted for assistance. Pain control with percoc et/morphine. 2. Acute renal failure-received HD. Appreciate nephro input. 3. Persistent leukocytosis, improving. s/p Zosyn/vancomycin/Diflucan. Patient's disease consulted by Dr. Garces. Blood cultures negative. Sputum culture with strep agalactiae 4. ACS- on aspirin/Plavix/Coreg/hydralazine/isosorbide. ICD turned back on this patient is full code now. Appreciate Dr. Giordano's input. 5. Acute pancreatitis. Pt with nausea and abdominal pain. Repeat CT abd courtney- pancreatic fluid. TPN restarted as pt unable to tolerate diet. 6. s/p Liver shock- secondary to the above, improved. 7. Generalized weakness and deconditioning/particularly malnutrition- secondary to the above. Diet being advanced as tolerated. Status post TPN. Physical therapy consult. 8. History of GERD on PPI 9. Diabetes mellitus- on Levemir and sliding scale insulin 10. Acute on chronic anemia- ? Secondary to underlying illness, renal failure, as well as possible GI bleed. Status post 4 units PRBC. Stable at this time. Will need an endoscopy once medically stable. Dr. Crandall consulted as pt had BRBPR. 11. Protein-calorie malnutrition - on TPN, will attempt to advance diet. DVT prophy: Heparin subcutaneous Overall prognosis guarded. VS,Fishbone, I+O VS, Fishbone, I+O Laboratory Tests 08/18/18 04:52 Calcium Level 7.6 L, Aspartate Amino Transf (AST/SGOT) 43 H, Alanine Am inotransferase (ALT/SGPT) 58, Alkaline Phosphatase 161 H, Total Bilirubin 0.7, Total Protein 5.0 L, Albumin 1.3 L 08/18/18 05:09 Red Blood Count 2.98 L, Mean Corpuscular Volume 90.9, Mean Corpuscular Hemoglobin 29.5, Mean Corpuscular Hemoglobin Concent 32.5, Red Cell Distribution Width 15.6 H Vital Signs Date Time Temp Pulse Resp B/P (MAP) Pulse Ox O2 Delivery O2 Flow Rate FiO2 08/18/18 14:00 20 08/18/18 08:00 100.4 79 111/56 (74) 90 Room Air 08/12/18 20:00 08/12/18 17:00 1.0 I&O- Last 24 Hours up to 6 AM 08/18/18 06:00 Intake Total 1850 ml Output Total 0 ml Balance 1850 ml FARHAD DIALLO MD Aug 18, 2018 15:39
[2018-08-18 16:00] VITALS: BP 132/66
--- NOTE | 2018-08-18 17:16 | IPN ---
DATE: 08/18/2018 SUBJECTIVE: Patient was seen and examined at the bedside today morning. He is currently on total parenteral nutrition (TPN). He still reports about 8/10 pain in the abdomen. He is still having loose stools. He is having low-grade temperature spikes. Today is patient's day of dialysis. He also reports that he is able to take some liquid diet as well. Hemoglobin is better today. Is has improved from 7.6 to 8.8 today. OBJECTIVE: VITAL SIGNS: Temperature 100.4 degrees Fahrenheit, blood pressure 111/56, pulse 79, respiratory rate 18, saturating 90% on room air. INTAKE AND OUTPUT: There is no urine output recorded. Weight in the bed scale is 87.1 kg. PHYSICAL EXAMINATION: GENERAL: Patient is awake, alert, oriented times three, laying in bed, in mild, painful distress. HEAD AND NECK EXAMINATION: Extraocular muscles intact. Pupils equally round and reactive to light. Mucous membranes are moist. Neck is supple. He has a right internal jugular (IJ) tunneled hemodialysis catheter and left IJ triple lumen catheter. CARDIOVASCULAR: S1, S2. 1+ edema of the bilateral lower extremities. Left-sided automatic implantable cardioverter defibrillator (AICD) was noted. ABDOMEN: Moderately tender to deep palpation all over. Mild to moderate ascites was also noted with dullness to percussion in the flanks. He has a right inguinal hernia as well. GENITOURINARY: Bladder is nonpalpable and a right inguinal hernia, which is reducible. MUSCULOSKELETAL: No clubbing or cysnosis. Pulses are 2+. 1+ edema was noted. CENTRAL NERVOUS SYSTEM: No focal deficit. Power is 5/5 in bilateral upper extremities. LABORATORY REVIEW: Complete blood count (CBC) showed a WBC 14.5, hemoglobin 8.8, platelets of 475. Basic metabolic panel (BMP) showed sodium 138, potassium 4.8, chloride 103, bicarbonate 21, BUN 70, creatinine 5.6, calcium 7.6. AST 43, ALT 58, alkaline phosphatase 161, albumin 1.3. MICROBIOLOGY: Clostridium (C) difficile polymerase chain reaction (PCR) is negative. IMAGING: A CAT scan of the abdomen and pelvis was done yesterday. No new abdominal pathology was found apart from acute pancreatitis. CURRENT INPATIENT MEDICATIONS: Patient's medications were all reviewed by me. He continues to be on intravenous (IV) TPN. No other change in the medications today as compared with yesterday. ASSESSMENT AND PLAN: 1. Acute oliguric renal failure. There are no signs of renal recovery at this point. He is still dialysis dependent. He will be dialyzed today. I will try to remove at least 2 to 2.5 liters of fluid, as tolerated by his blood pressure. If needed, I will give him albumin during hemodialysis. 2. Anemia in end-stage renal disease. Patient got 1 unit of packed red blood cells transfusion. Hemoglobin has improved to 8.8. He will also be given a dose of Aranesp with dialysis today. 3. Acute pancreatitis. Patient still has abdominal pain, which is being optimized with opioids. He is currently on a liquid diet and he is on IV TPN as well. 4. Coronary artery disease status post [id number] myocardial infarction (NSTEMI). Patient is currently on a low-dose of Coreg 6.25 mg twice a day, hydralazine 10 mg four times a day and isosorbide 10 mg three times a day with holding parameters. Avoid use of angiotensin-converting enzyme (LORI) inhibitor inhibitors. 5. Diabetes mellitus type 2. Glucose levels are controlled. Continue Levemir and insulin sliding scale.
[2018-08-18] MEDS ORDERED: SODIUM CHLORIDE IV SCH ×8 (18:00)
[2018-08-18] MEDS ORDERED: SODIUM ACETATE IV SCH ×8 (18:00)
[2018-08-18] MEDS ORDERED: [UNRECOGNIZED DRUG - OTHER] IV SCH ×8 (18:00)
[2018-08-18] MEDS ORDERED: FAT EMULSION IV 20% 500 ML IV SCH (18:00)
[2018-08-18] MEDS: diphenhydrAMINE 25 MG CAP PO PRN (18:05)
[2018-08-18] MEDS ORDERED: predniSONE 20 MG TAB PO ONE (18:30)
[2018-08-18] MEDS: SODIUM CHLORIDE 0.9% INJ 10 ML SYR IV PRN (19:49)
[2018-08-18 20:00] VITALS: BP 142/68
[2018-08-18 23:52] VITALS: BP 153/56
[2018-08-19] MEDS: PERCOCET 5MG/325MG TAB PO PRN ×4 (02:20→21:01)
[2018-08-19 04:00] VITALS: BP 126/62
[2018-08-19] MEDS: MORPHINE 4 MG/ML 1ML VIAL/SYRINGE (J2270) IV PRN ×3 (04:26→22:27)
[2018-08-19] MEDS: SODIUM CHLORIDE 0.9% INJ 10 ML SYR IV SCH ×3 (04:32→21:00)
[2018-08-19] MEDS: ISOSORBIDE DIN (ISORDIL) 10 MG TAB PO SCH ×3 (06:04→17:22)
[2018-08-19] MEDS: HumaLOG INSULIN (NovoLOG) PER UNIT SC SCH ×3 (06:04→21:00)
[2018-08-19 06:10] LABS: HEMATOCRIT 25.4 % (42.0-52.0); HEMOGLOBIN 8.1 g/dl (13.5-17.5); MEAN CORPUSCULAR HEMOGLOBIN 29.9 pg (27.0-33.0); MEAN CORPUSCULAR HGB CONC 31.9 g/dl (32.0-36.5); MEAN CORPUSCULAR VOLUME 93.7 fl (80.0-96.0); PLATELET COUNT, AUTOMATED 426 10^3/uL (150-450); RED BLOOD COUNT 2.71 10^6/uL (4.30-6.10); WHITE BLOOD COUNT 11.8 10^3/uL (4.0-10.0)
[2018-08-19 06:24] LABS: ALBUMIN 1.6 GM/DL (3.2-5.2); CREATININE FOR GFR 4.29 MG/DL (0.70-1.30); GLOMERULAR FILTRATION RATE 15.7 (>60); POTASSIUM SERUM 4.5 MEQ/L (3.5-5.1)
[2018-08-19] MEDS: ALBUTEROL SULFATE 2.5 MG/0.5 ML INH NEB SOLN NEB SCH ×4 (07:26→20:00)
[2018-08-19 08:00] VITALS: BP 146/70
[2018-08-19] MEDS: CLOPIDOGREL 75 MG TAB PO SCH (08:51)
[2018-08-19] MEDS: PANTOPRAZOLE 40MG INJ (PROTONIX) (C9113) IV SCH ×2 (08:51→21:00)
[2018-08-19] MEDS: CARVedilol 6.25 MG TAB PO SCH ×2 (08:52→21:02)
[2018-08-19] MEDS: **hydrALAZINE** 10 MG TAB PO SCH ×4 (08:52→21:02)
[2018-08-19] MEDS: ASPIRIN 81 MG ENTERIC TAB PO SCH (08:53)
[2018-08-19] MEDS: AMIODARONE 200 MG TAB (PACERONE) PO SCH (08:53)
[2018-08-19] MEDS ORDERED: LEVEMIR (INSULIN DETEMIR) 1 UNITS/0.01ML SC SCH (09:00)
--- NOTE | 2018-08-19 11:11 | IPNPDOC ---
Text Note Date of Service The patient was seen on 08/19/18. NOTE Subjective: Abdominal pain improving. Tolerating toast, and juice this morning. Has urticaria on his back that started on 08/17 during which morphine and TPN was started. I have discussed discontinuing TPN morphine today, however Patient states he would like the TPN discontinued for now and keep the morphine until tomorrow. Objective: Vitals: (see below) General: No acute distress, laying comfortably in bed. HEENT: Moist mucous membranes. Neck: No JVD or lymphadenopathy. Cardiac: RRR, No murmurs Pulm: Diminished breath sounds at the bases b/l. No wheezing, rhonchi Abd: No tenderness to palpation today.. No rebound/guarding/rigidity. Mildly distended. + BS Ext: +edema No cyanosis moving all extremities. following commands. Urticaria on the back. Pruritic. Labs (see below) Assessment/Plan 1. Persistent abdominal pain - likely 2/2 pancreatitis. Improving.? Colonic thickening on CT abd/pelvis. Dr. Holt consulted for assistance. Pain control with percocet/morphine. Advance diet as tolerated. 2. Acute renal failure-received HD. Appreciate nephro input. 3. Persistent leukocytosis, improving. s/p Zosyn/vancomycin/Diflucan. Patient's disease consulted by Dr. Garces. Blood cultures negative. Sputum culture with strep agalactiae 4. ACS- on aspirin/Plavix/Coreg/hydralazine/isosorbide. ICD turned back on this patient is full code now. Appreciate Dr. Giordano's input. 5. Acute pancreatitis. Pt with nausea and abdominal pain. Repeat CT abd courtney- pancreatic fluid. TPN restarted as pt unable to tolerate diet. 6. s/p Liver shock- secondary to the above, improved. 7. Generalized weakness and deconditioning/particularly malnutrition- secondary to the above. Diet being advanced as tolerated. Status post TPN. Physical therapy consult. 8. History of GERD on PPI 9. Diabetes mellitus- on Levemir and sliding scale insulin 10. Acute on chronic anemia- ? Secondary to underlying illness, renal failure, as well as possible GI bleed. Status post 4 units PRBC. Stable at this time. Will need an endoscopy once medically stable. Dr. Crandall consulted as pt had BRBPR. 11. Protein-calorie malnutrition -status post TPN. Starting to tolerate diet. Advance as tolerated. 12. Urticaria- Benadryl as needed. Prednisone. Discontinue TPN. If no improvement, will discontinue morphine tomorrow. DVT prophy: Heparin subcutaneous Overall prognosis guarded. VS,Fishbone, I+O VS, Fishbone, I+O Laboratory Tests 08/19/18 05:46 Red Blood Count 2.71 L, Mean Corpuscular Volume 93.7, Mean Corpuscular Hemoglobin 29.9, Mean Corpuscular Hemoglobin Concent 31.9 L, Red Cell Distribution Width 15.2 H, Anion Gap 10 Vital Signs Date Time Temp Pulse Resp B/P (MAP) Pulse Ox O2 Delivery O2 Flow Rate FiO2 08/19/18 10:13 20 08/19/18 08:52 92 146/70 08/19/18 08:00 99.3 92 Room Air I&O- Last 24 Hours up to 6 AM 08/19/18 05:59 Intake Total 2170 ml Output Total 2500 ml Balance -330 ml FARHAD DIALLO MD Aug 19, 2018 11:11
[2018-08-19 12:00] VITALS: BP 152/66
[2018-08-19] MEDS: diphenhydrAMINE 25 MG CAP PO PRN (14:44)
[2018-08-19 16:00] VITALS: BP 132/68
[2018-08-19 20:00] VITALS: BP 141/78
[2018-08-20] VITALS: BP 140/80
[2018-08-20 04:00] VITALS: BP 126/70
[2018-08-20] MEDS: SODIUM CHLORIDE 0.9% INJ 10 ML SYR IV SCH (05:24)
[2018-08-20] MEDS: MORPHINE 4 MG/ML 1ML VIAL/SYRINGE (J2270) IV PRN (06:17)
[2018-08-20 06:20] LABS: HEMATOCRIT 29.4 % (42.0-52.0); HEMOGLOBIN 9.2 g/dl (13.5-17.5); MEAN CORPUSCULAR HEMOGLOBIN 29.7 pg (27.0-33.0); MEAN CORPUSCULAR HGB CONC 31.3 g/dl (32.0-36.5); MEAN CORPUSCULAR VOLUME 94.8 fl (80.0-96.0); PLATELET COUNT, AUTOMATED 521 10^3/uL (150-450); WHITE BLOOD COUNT 15.9 10^3/uL (4.0-10.0)
[2018-08-20] MEDS: ISOSORBIDE DIN (ISORDIL) 10 MG TAB PO SCH ×3 (06:35→20:48)
[2018-08-20 07:06] LABS: CALCIUM LEVEL 8.2 MG/DL (8.5-10.1); CREATININE FOR GFR 5.76 MG/DL (0.70-1.30); GLOMERULAR FILTRATION RATE 11.2 (>60); POTASSIUM SERUM 4.8 MEQ/L (3.5-5.1)
[2018-08-20] MEDS: ALBUTEROL SULFATE 2.5 MG/0.5 ML INH NEB SOLN NEB SCH ×4 (07:10→20:37)
[2018-08-20] MEDS: HumaLOG INSULIN (NovoLOG) PER UNIT SC SCH ×4 (07:30→20:50)
[2018-08-20 08:00] VITALS: BP 120/72
[2018-08-20] MEDS: ASPIRIN 81 MG ENTERIC TAB PO SCH (09:58)
[2018-08-20] MEDS: AMIODARONE 200 MG TAB (PACERONE) PO SCH (09:58)
[2018-08-20] MEDS: **hydrALAZINE** 10 MG TAB PO SCH ×4 (09:59→20:50)
[2018-08-20] MEDS: CARVedilol 6.25 MG TAB PO SCH ×2 (09:59→20:59)
[2018-08-20] MEDS: CLOPIDOGREL 75 MG TAB PO SCH (09:59)
[2018-08-20] MEDS: LEVEMIR (INSULIN DETEMIR) 1 UNITS/0.01ML SC SCH (10:04)
--- NOTE | 2018-08-20 10:34 | IPN ---
DATE OF SERVICE: 08/19/2018 SUBJECTIVE: Patient was seen and examined at the bedside today morning. The patient reports that he is feeling much better today. He was dialyzed yesterday, 2.5 liters of fluid was removed. There is no sign of renal recovery. He is still oliguric at this point. White cell count is significantly better. His appetite is getting better. He is able to tolerate the liquid diet now. He still continues to be on total parenteral nutrition (TPN), but the primary team is planning to stop his TPN. The patient is requesting physical therapy so he can get out of bed into a chair. OBJECTIVE: VITAL SIGNS: Temperature 97.6 degrees Fahrenheit, blood pressure 152/66, pulse 76, respiratory rate 18, saturating 93% on room air. INTAKE AND OUTPUT: There is no urine output recorded. Ultrafiltration with hemodialysis was 2.5. Weight in the bed scale is 85.2 kg. PHYSICAL EXAMINATION: GENERAL: Patient is awake, alert, oriented times three, laying in bed, in no apparent distress. HEAD AND NECK EXAMINATION: Extraocular muscles intact. Pupils equally round and reactive to light. Mucous membranes are moist. Neck is supple. He has a right internal jugular (IJ) tunneled hemodialysis catheter and left IJ triple lumen catheter. CARDIOVASCULAR: S1, S2. Trace edema of the bilateral lower extremities. Left-sided automatic implantable cardioverter defibrillator (AICD) was noted. ABDOMEN: Soft. Mildly tender to deep palpation. Mild amount of ascites with dullness to percussion in the flanks. GENITOURINARY: Bladder is nonpalpable. Right sided inguinal hernia, which is reducible. MUSCULOSKELETAL: No clubbing or cyanosis. Pulses are 2+. CENTRAL NERVOUS SYSTEM: No focal deficit. Power is 5/5 in bilateral upper extremities. LABORATORY REVIEW: Complete blood count (CBC) showed a WBC 11.8, hemoglobin 8.1, platelets of 426. Basic metabolic panel (BMP) showed sodium 136, potassium 4.5, chloride 101, bicarbonate 25, BUN 47, creatinine 4.2, calcium 8, phosphorus 6, magnesium 2, albumin 1.6. CURRENT INPATIENT MEDICATIONS: Patient's medications were all reviewed by me. His TPN has been stopped now. Insulin Levemir has been changed to 35 units in the morning. No other change in the medications today as compared with yesterday. ASSESSMENT AND PLAN: 1. Acute oliguric renal failure. The patient continues to be oliguric at this point. He is hemodialysis dependent. Last hemodialysis was done yesterday. The patient will be evaluated tomorrow morning. If needed for fluid removal, I will do a session of ultrafiltration tomorrow morning. 2. Anemia and end-stage renal disease. Patient's hemoglobin is still low at 8.1. The patient will be given another unit of packed red blood cells transfusion with next hemodialysis. He was also given a dose of Aranesp 200 mcg IV with hemodialysis yesterday. 3. Acute pancreatitis. Patient's abdominal pain is improving now. His TPN is stopped. He is tolerating the liquid diet at this point. 4. Diabetes mellitus type 2. Glucose levels are better controlled. He is currently on Levemir and insulin sliding scale. The rest of the management as per primary team. 5. Coronary artery disease and recent [id number] myocardial infarction (NSTEMI) during intensive care unit stay. Patient continues to be on Coreg 6.25 mg by mouth twice a day, hydralazine and isosorbide. Avoid use of angiotensin-converting enzyme (LORI) inhibitor inhibitors in this patient who is recovering from acute renal failure. 6. Protein calorie malnutrition. Albumin is only 1.6. Patient's diet is being advanced now. Albumin level is expected to improve with improvement in patient's nutritional status. 7. Weakness, deconditioning. Patient was getting physical therapy in the intensive care unit. However, he has not gotten any physical therapy over the weekend. I have ordered physical therapy and occupational therapy evaluation. TYRONED
[2018-08-20] MEDS ORDERED: predniSONE 20 MG TAB PO ONE (11:00)
--- NOTE | 2018-08-20 11:29 | REP ---
Left upper extremity duplex venous ultrasound: History: Left upper extremity swelling, rule out DVT. Findings: A bandage in the supraclavicular region preclude scanning in the internal jugular region. The left subclavian, axillary, brachial, basilic, and cephalic veins are anechoic and compressible in the left upper extremity. Color flow imaging is homogeneous. Spectral Doppler interrogation is unremarkable. There is no evidence of left upper extremity venous thrombosis. Impression: Negative left upper extremity duplex venous ultrasound. No evidence of venous thrombosis. Electronically Signed by Everett Kent MD 08/20/2018 11:20 A
[2018-08-20 12:00] VITALS: BP 96/52
--- NOTE | 2018-08-20 12:38 | IPNPDOC ---
Text Note Date of Service The patient was seen on 08/20/18. NOTE Subjective: The patient continues to have rash on his trunk. Mildly pruritic. Agrees with discontinuing morphine and Percocet. I have also asked Dr. Hector to evaluate the rash as well. The patient was initially not agreeable to drinking ensure, however has been encouraged to try to ensure clear, and he is now agreeable. Tolerating full liquid, and will advance as tolerated. Patient states his abdominal pain has improved. I have asked dietary to evaluate the patient as wel l. Objective: Vitals: (see below) General: No acute distress, laying comfortably in bed. HEENT: Moist mucous membranes. Neck: No JVD or lymphadenopathy. Cardiac: RRR, No murmurs Pulm: Diminished breath sounds at the bases b/l. No wheezing, rhonchi Abd: No tenderness to palpation today.. No rebound/guarding/rigidity. Mildly distended. + BS Ext: +edema No cyanosis moving all extremities. following commands. Rash on the back/trunk. Non papular. Pruritic. Labs (see below) Assessment/Plan 1. Abdominal pain improved- likely 2/[address] Holt consulted for assistance. D/c percocet/morphine as trunk rash has started on it, benadryl/prednisone. Advance diet as tolerated. 2. Acute renal failure-received HD. Appreciate nephro input. 3. Persistent leukocytosis, improving. s/p Zosyn/vancomycin/Diflucan. Patient's disease consulted by Dr. Garces. Blood cultures negative. Sputum culture with strep agalactiae 4. ACS- on aspirin/Plavix/Coreg/hydralazine/isosorbide. ICD turned back on this patient is full code now. Appreciate Dr. Giordano's input. Will need Cardiac Cath once he is stable. 5. Acute pancreatitis. Pt with nausea and abdominal pain. Repeat CT abd courtney-pancreatic fluid. TPN restarted as pt unable to tolerate diet. 6. s/p Liver shock- secondary to the above, improved. 7. Generalized weakness and deconditioning/particularly malnutrition- secondary to the above. Diet being advanced as tolerated. Status post TPN. Physical therapy consult. 8. History of GERD on PPI 9. Diabetes mellitus- on Levemir and sliding scale insulin 10. Acute on chronic anemia- ? Secondary to underlying illness, renal failure, as well as possible GI bleed. Status post 4 units PRBC. Stable at this time. Will need an endoscopy once medically stable. Dr. Crandall consulted as pt had BRBPR. 11. Protein-calorie malnutrition -status post TPN. Starting to tolerate PO diet. Advance as tolerated. Dietary consulted. Ensure clear. Calorie count. 12. Trunk rash- Benadryl as needed. Prednisone. Discontinue TPN. D/c morphine/percocet. ID to eval rash. DVT prophy: Heparin subcutaneous Overall prognosis guarded. Will consider restarting TPN if pt fails to advance his diet. VS,Fishbone, I+O VS, Fishbone, I+O Laboratory Tests 08/20/18 05:40 Red Blood Count 3.10 L, Mean Corpuscular Volume 94.8, Mean Corpuscular Hemoglobin 29.7, Mean Corpuscular Hemoglobin Concent 31.3 L, Red Cell Distribution Width 15.4 H, Calcium Level 8.2 L Vital Signs Date Time Temp Pulse Resp B/P (MAP) Pulse Ox O2 Delivery O2 Flow Rate FiO2 08/20/18 10:01 16 Room Air 08/20/18 09:59 120/72 08/20/18 09:59 112 08/20/18 08:00 96.8 98 08/19/18 16:00 I&O- Last 24 Hours up to 6 AM 08/20/18 06:00 Intake Total 960 ml Output Total 0 ml Balance 960 ml FARHAD DIALLO MD Aug 20, 2018 12:38
[2018-08-20] MEDS ORDERED: SLF 3 ML SYR IV PRN (14:15)
[2018-08-20] MEDS: ACETAMINOPHEN TAB 650MG DOSE (2X325MG) PO PRN (17:30)
[2018-08-20 20:00] VITALS: BP 138/72
[2018-08-20] MEDS: SLF 3 ML SYR IV SCH (21:00)
[2018-08-20 23:59] VITALS: BP 141/68
--- NOTE | 2018-08-21 00:23 | IPN ---
DATE: 08/20/2018 SUBJECTIVE: The patient was seen and examined at the bedside today, morning. His total parenteral nutrition (TPN) was stopped yesterday. He reports that he is trying to eat a liquid diet, but he still reports pain in the abdomen. He also feels bloated. He is passing some gas, and he had a small bowel movement today. White cell count is high today as compared with yesterday. There are no signs of renal recovery. He is still oliguric, and he actually is fluid overloaded today because of all the TPN that he was receiving. OBJECTIVE: VITAL SIGNS: Temperature is 97.6 degrees Fahrenheit, blood pressure 96/52, pulse is 98, respiratory rate of 18, saturating 98% on room air. INTAKE/OUTPUT: Urine output recorded after a straight catheterization is only 80 mL. Weight on the bed scale is 85 kg. PHYSICAL EXAMINATION: GENERAL: The patient is awake, alert, oriented times three, laying in bed, mild painful distress. HEAD AND NECK EXAM: Extraocular muscles intact. Pupils equally round and reactive to light. Mucous membranes are moist. Neck is supple. There is significantly elevated jugular venous distention (JVD). He has a right internal jugular (IJ) tunneled hemodialysis catheter and left IJ triple lumen catheter. CARDIOVASCULAR: S1, S2. 1+ edema of the bilateral lower extremities and bilateral upper extremities. Left-sided automatic implantable cardioverter defibrillator (AICD) was noted. ABDOMEN: Soft, mildly tender to deep palpation. Moderate amount of ascites was noted. GENITOURINARY: Bladder is not palpable. Right-sided inguinal hernia is noted, which is reducible. MUSCULOSKELETAL: No clubbing or cyanosis. Pulses are 2+. CENTRAL NERVOUS SYSTEM ([employer]): No focal deficit. Power is 5/5 in bilateral upper extremities. LAB REVIEW: CBC showed a WBC of 15.9, hemoglobin 9.2, platelets are 521. BMP showed sodium 137, potassium 4.8, chloride 102, bicarbonate 24, BUN 60, creatinine is 5.7, calcium 8.2. IMAGING: Duplex ultrasound of the left upper extremity was done, which is negative for deep vein thrombosis (DVT). CURRENT INPATIENT MEDICATIONS: Patient's medications were all reviewed by me. His TPN has been stopped. No other change in the medications today as compared with yesterday. ASSESSMENT AND PLAN: 1. Acute oliguric renal failure. The patient continues to be oliguric. Straight catheterization was done; only 80 mL of urine came out. The patient is fluid overloaded. He will get a session of ultrafiltration for 3 hours, and I will try to remove about 2-1/2 to 3 liters of fluid as tolerated by his blood pressure. His regular hemodialysis will be done tomorrow morning. 2. Anasarca. It is secondary to IV TPN and patient is anuric. He would not respond to the diuretics, fluid removal with ultrafiltration as mentioned above. 3. Anemia secondary to end-stage renal disease. Hemoglobin is 9.2, which is better today. Continue current dose of Aranesp 200 mcg IV once a week with dialysis. 4. Acute pancreatitis. The patient is making very slow recovery. His TPN has been stopped. He is currently tolerating the liquid diet. Pain is being optimized with opioids. 5. Coronary artery disease and recent non-ST elevation myocardial infarction ([place]). Continue current dose of Coreg, hydralazine and isosorbide. The patient is volume overloaded. Volume status will be optimized with dialysis and ultrafiltration. 6. Weakness and deconditioning. The patient is getting regular physical therapy.
[2018-08-21 04:00] VITALS: BP 138/70
[2018-08-21] MEDS: SLF 3 ML SYR IV SCH ×3 (06:38→21:47)
[2018-08-21] MEDS: ISOSORBIDE DIN (ISORDIL) 10 MG TAB PO SCH ×3 (06:39→17:22)
[2018-08-21] MEDS: CLOPIDOGREL 75 MG TAB PO SCH ×2 (06:39→09:03)
[2018-08-21] MEDS: ACETAMINOPHEN TAB 650MG DOSE (2X325MG) PO PRN (06:39)
[2018-08-21] MEDS: ASPIRIN 81 MG ENTERIC TAB PO SCH ×2 (06:40→09:03)
[2018-08-21] MEDS: HumaLOG INSULIN (NovoLOG) PER UNIT SC SCH ×4 (07:30→21:50)
[2018-08-21 08:00] VITALS: BP 120/56
[2018-08-21] MEDS: ALBUTEROL SULFATE 2.5 MG/0.5 ML INH NEB SOLN NEB SCH ×4 (08:09→21:00)
[2018-08-21] MEDS: LEVEMIR (INSULIN DETEMIR) 1 UNITS/0.01ML SC SCH (09:01)
[2018-08-21] MEDS: CARVedilol 6.25 MG TAB PO SCH ×2 (09:03→21:46)
[2018-08-21] MEDS: AMIODARONE 200 MG TAB (PACERONE) PO SCH (09:03)
[2018-08-21] MEDS: **hydrALAZINE** 10 MG TAB PO SCH (09:04)
--- NOTE | 2018-08-21 09:27 | IPN ---
DATE: 08/20/2018 Dae was seen in dialysis. He was complaining of abdominal bloating. He was concerned that his Percocet and morphine were held when he has so much abdominal pain. He has a rash which is mildly pruritic mostly involving his abdomen and upper thighs. He is not bothered by the rash. He still oliguric with fluid overload. On physical exam temperature is 97.6, blood pressure 96/52, O2 sat 98% on room air. Respiratory rate 18. Heart: Normal S1-S2. No murmurs appreciated. Lungs: Diminished breath sounds at the bases. Abdomen: Soft, mildly tender, moderate ascites. Bowel sounds present. Extremities: +1 pitting edema bilaterally. Skin: Faint maculopapular rash on abdomen and right upper thigh. Minimal rash on back and upper extremities. Duplex of left upper extremity was negative for deep venous thrombosis (DVT). LABORATORY DATA: White count 15.9, hemoglobin 9.2, hematocrit 29.4, platelets 521. Sodium 137, potassium 4.8, chloride 102, bicarb 24, BUN 60, creatinine 5.76, glucose 49, calcium 8.2. REVIEW OF MEDICATION: Benadryl 25 mg by mouth every 6 as needed, Coreg 6.25 mg by mouth twice a day, hydralazine 10 mg by mouth four times a day which was started on August 13, Zofran as needed, Percocet and morphine as needed, amiodarone 400 mg daily, Isordil 10 mg by mouth three times a day, Plavix 75 mg daily. Fluconazole was discontinued on August 13. Zosyn and vancomycin were discontinued on August 14. IMPRESSION: Rash mild , mildly pruritic, most likely drug related, the most common culprits are antibiotics but these have been discontinued on August 14, although a rash could happen up until 7-14 days after antibiotics are discontinued. My suspicion is hydralazine may be the culprit as it was started on August 13 and is continued. I doubt the rash is related to narcotics. Pancreatitis with abdominal bloating. White count improving. The patient remains off antibiotic. Acute kidney injury. The patient remains dialysis dependent and oliguric. The patient is fluid overload. PLAN: Consider discontinuing hydralazine, use moisturizer on his abdomen and possibly topical steroids. Continue Benadryl. Consider switch hydralazine to a different hypertensive. MTDD
[2018-08-21 09:38] LABS: HEMATOCRIT 25.5 % (42.0-52.0); HEMOGLOBIN 8.1 g/dl (13.5-17.5); MEAN CORPUSCULAR HEMOGLOBIN 29.1 pg (27.0-33.0); MEAN CORPUSCULAR HGB CONC 31.8 g/dl (32.0-36.5); MEAN CORPUSCULAR VOLUME 91.7 fl (80.0-96.0); PLATELET COUNT, AUTOMATED 477 10^3/uL (150-450); RED BLOOD COUNT 2.78 10^6/uL (4.30-6.10); WHITE BLOOD COUNT 14.5 10^3/uL (4.0-10.0)
[2018-08-21 10:05] LABS: C REACTIVE PROTEIN QUANTITATIV 16.7 MG/DL (0.00-0.30); CALCIUM LEVEL 7.9 MG/DL (8.5-10.1); CREATININE FOR GFR 7.3 MG/DL (0.70-1.30); GLOMERULAR FILTRATION RATE 8.5 (>60); MAGNESIUM LEVEL 2.2 MG/DL (1.8-2.4); POTASSIUM SERUM 5.8 MEQ/L (3.5-5.1)
[2018-08-21] MEDS ORDERED: LIDOCAINE 1% SDV 5 ML VIAL SQ ONE (12:00)
[2018-08-21] MEDS ORDERED: HEPARIN 1,000 UNITS/ML 10ML VIAL (FOR RADIOLOGY& DIALYSIS ONLY) IV ONE (12:00)
[2018-08-21] MEDS: LACTOBACILLUS ACIDOPHILUS CAP (BACID) PO SCH ×2 (12:30→17:23)
[2018-08-21] MEDS ORDERED: HYDROMORPHONE HCL 0.5 MG/ 0.5 ML SYRINGE (J1170 PER 1) IV PRN (12:45)
[2018-08-21] MEDS: HYDROMORPHONE HCL 0.5 MG/ 0.5 ML SYRINGE (J1170 PER 1) IV PRN ×2 (14:28→22:07)
[2018-08-21 16:00] VITALS: BP 130/62
[2018-08-21] MEDS ORDERED: **hydrALAZINE** 10 MG TAB PO SCH (16:00)
[2018-08-21] MEDS ORDERED: CREON-24 CAPSULE PO SCH (18:00)
[2018-08-21 21:02] VITALS: BP 124/58
--- NOTE | 2018-08-21 22:17 | IPN ---
DATE: 08/21/2018 The patient was seen and examined. Continued to have bloody diarrhea. Denies any chest pain, pressure or discomfort. Denies any fever or chills. Reported not sleeping well. Reported abdominal pain, that is more suprapubic. Denies any nausea or vomiting. VITAL SIGNS: Temperature 99.6, pulse 80, respirations 18, blood pressure 130/60, pulse oximetry 94% on room air. LABORATORY: White blood count (WBC) 14.5, hemoglobin and hematocrit 8.1/25.5, platelets 477. Chemistry: Sodium 132, potassium 5.8, chloride 99, bicarbonate 22, BUN 89, creatinine 7.3, C-reactive protein 16.7. PHYSICAL EXAMINATION: GENERAL: The patient in no acute distress, comfortable. HEENT: Normocephalic, atraumatic. NECK: Supple. CARDIAC: Regular. S1, S2. 2/6 systolic murmur. ABDOMEN: Soft, minimal suprapubic tenderness. Mild distension. Positive bowel sounds. PULMONARY: Bilateral clear. EXTREMITIES: 1+ edema. ASSESSMENT AND PLAN: This is a 47-year-old male patient with underlying medical history of coronary artery disease with coronary artery bypass graft (CABG) in 2000, PCI with multiple stents. Most recent cardiac catheterization two years ago, history of congestive heart failure (CHF) with reduced ejection fraction, has a biventricular pacemaker, pacemaker defibrillator, insulin-dependent diabetes, complicated with diabetic neuropathy, chronic obstructive pulmonary disease (COPD), gastroesophageal reflux disease (GERD), hypertension, dyslipidemia, benign prostatic hypertrophy (BPH), history of cerebrovascular accident (CVA), history of methicillin-resistant Staphylococcus aureus (MRSA), sternal osteomyelitis, degenerative joint disease was initially presented to the hospital with shortness of breath and chest tightness. On presentation, the patient was diagnosed with non-ST segment elevation myocardial infarction (NSTEMI). Hospital course complicated with intubation, nitroglycerine drip with also hyperglycemia require insulin drip, complicated with hypotension, shock liver, as well as pancreatitis and also persistent leukocytosis of unknown origin, bonita urea and acute on chronic renal failure. PROBLEMS: 1. Abdominal pain secondary to pancreatitis has improved. The patient tolerated the diet. CT scan review has been appreciated. Surgery has been consulted. The patient has been on Dilaudid for pain medication. Pancreatic enzyme has been added given persistent diarrhea. Clostridium difficile work up has been negative. 2. Abdominal truncal rash as per infection disease, Dr. Hector, likely secondary to hydralazine. The patient's hydralazine has been on hold. Benadryl and prednisone as ordered. 3. Acute on chronic renal failure, currently end-stage renal requiring dialysis. Further management as per nephrology. 4. Persistent leukocytosis improved, was treated with broad-spectrum antibiotics and antifungal including Diflucan, Zosyn and vancomycin. Infectious disease has been consulted. Sputum culture showed Streptococcus agalactiae. Infectious disease has been consulted. Presently, the patient is off of antibiotics. 5. Acute coronary syndrome with non-ST segment elevation myocardial infarction (NSTEMI). Continue aspirin and Plavix, Coreg, hydralazine and isosorbide dinitrate. Hydralazine has been on hold given possible reaction. Isosorbide dinitrate has been increased. Automatic implantable cardioverted defibrillator (AICD) has been turned back on. Appreciate Dr. Giordano's input. The patient will need cardiac catheterization, once the patient is stable. 6. Acute pancreatitis, nausea and vomiting. The patient currently is off of total parenteral nutrition (TPN). Appreciate Dr. Nolasco's surgery consult. Diet as tolerated. Pancreatic enzyme has been added, titrate up as needed. 7. Status post shock liver secondary to non-ST segment elevation myocardial infarction (NSTEMI) and congestive heart failure (CHF), currently improved. 8. Generalized weakness and deconditioning. Protein calorie malnutrition. Diet as tolerated. The patient is status post total parenteral nutrition (TPN). 9. History of gastroesophageal reflux disease (GERD). Continue proton pump inhibitor (PPI). 10. Diabetes mellitus. Basal bolus insulin. Adjust as needed. 11. Acute on chronic anemia secondary to anemia of chronic disease. Also possible gastrointestinal (GI) bleed, status post 4 units packed red blood cells. Monitor complete blood count (CBC). Consulted general surgery given recent acute coronary syndrome. The patient is not a candidate for intervention at this time. Continue to monitor. 12. Protein calorie malnutrition. Status post total parenteral nutrition (TPN). Diet as tolerated. Dietary consult. Ensure clear. 13. Truncal rash, possible reaction to hydralazine as per Dr. Hector. Benadryl as needed, currently much improved. 14. Deep vein thrombosis (DVT) prophylaxis. Heparin subcutaneous. DISPOSITION: Likely will need short-term rehabilitation. Pain med as prescribed.
[2018-08-21 23:59] VITALS: BP 132/62
[2018-08-22] VITALS (9 sets, daily range): BP systolic 125–142; BP diastolic 56–66
[2018-08-22] MEDS: SLF 3 ML SYR IV SCH ×3 (06:00→21:07)
[2018-08-22] MEDS: HYDROMORPHONE HCL 0.5 MG/ 0.5 ML SYRINGE (J1170 PER 1) IV PRN ×5 (06:44→20:30)
[2018-08-22] MEDS: ISOSORBIDE DIN (ISORDIL) 10 MG TAB PO SCH ×3 (06:49→16:10)
[2018-08-22 08:23] LABS: HEMATOCRIT 25.2 % (42.0-52.0); MEAN CORPUSCULAR HEMOGLOBIN 29.5 pg (27.0-33.0); MEAN CORPUSCULAR HGB CONC 31.7 g/dl (32.0-36.5); PLATELET COUNT, AUTOMATED 471 10^3/uL (150-450); RED BLOOD COUNT 2.71 10^6/uL (4.30-6.10); WHITE BLOOD COUNT 15.1 10^3/uL (4.0-10.0)
[2018-08-22] MEDS: ALBUTEROL SULFATE 2.5 MG/0.5 ML INH NEB SOLN NEB SCH ×4 (08:38→20:00)
[2018-08-22 08:50] LABS: CREATININE FOR GFR 5.3 MG/DL (0.70-1.30); GLOMERULAR FILTRATION RATE 12.3 (>60); POTASSIUM SERUM 4.6 MEQ/L (3.5-5.1)
[2018-08-22] MEDS: LEVEMIR (INSULIN DETEMIR) 1 UNITS/0.01ML SC SCH (09:18)
[2018-08-22] MEDS: HumaLOG INSULIN (NovoLOG) PER UNIT SC SCH ×4 (09:19→21:00)
[2018-08-22] MEDS: CREON-24 CAPSULE PO SCH ×3 (09:20→17:40)
[2018-08-22] MEDS: LACTOBACILLUS ACIDOPHILUS CAP (BACID) PO SCH ×3 (09:20→17:40)
[2018-08-22] MEDS: ASPIRIN 81 MG ENTERIC TAB PO SCH (09:20)
[2018-08-22] MEDS: CARVedilol 6.25 MG TAB PO SCH ×2 (09:20→21:06)
[2018-08-22] MEDS: CLOPIDOGREL 75 MG TAB PO SCH (09:21)
[2018-08-22] MEDS: AMIODARONE 200 MG TAB (PACERONE) PO SCH (09:21)
[2018-08-22] MEDS ORDERED: HYDROMORPHONE HCL 0.5 MG/ 0.5 ML SYRINGE (J1170 PER 1) IV PRN (10:45)
--- NOTE | 2018-08-22 11:25 | IPN ---
DATE OF SERVICE: 08/21/2018 SUBJECTIVE: The patient was seen and examined at the bedside today morning. The patient reports that he is still having pain in the abdomen. Tylenol was not helping him. His morphine was stopped because of the rash. He got the ultra filtration done yesterday, 2.5 liters of fluid was removed. There is a slight drop in his hemoglobin as well. OBJECTIVE: VITAL SIGNS: Temperature is 99.6 degrees Fahrenheit, blood pressure 124/58, pulse is 89, respiratory rate of 18, saturating 95% on room air. INTAKE/OUTPUT: Urine output recorded as 150 mL since overnight. Ultrafiltration with hemodialysis was 2.5 liters yesterday. Weight on the bed scale is 83.2 kg. PHYSICAL EXAMINATION: GENERAL: The patient is awake, alert, oriented times three, laying in bed, in mild painful distress. HEAD AND NECK EXAM: Extraocular muscles intact. Pupils equally round and reactive to light. Mucous membranes are moist. Neck is supple. There is no jugular venous distention (JVD). He has a right internal jugular (IJ) tunneled hemodialysis catheter and left IJ triple lumen catheter. CARDIOVASCULAR: S1, S2. 1+ edema on the bilateral lower extremities. Left sided automatic implantable cardioverter defibrillator (AICD) was noted. ABDOMEN: Soft. Mildly tender to deep palpation, especially in the epigastrium. Mild amount of ascites is noted. MUSCULOSKELETAL: No clubbing or cyanosis. Pulses are 2+. 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 Power is 5/5 in bilateral upper extremities. PSYCH: Patient is agitated at this point. LAB REVIEW: CBC showed a WBC of 14.5, hemoglobin 8.1, platelets 477. BMP showed sodium 133, potassium 5.8, chloride 99, bicarbonate 22, BUN 89, creatinine 7.3, calcium 7.9, magnesium 2.2. CURRENT INPATIENT MEDICATIONS: Patient's medications were all reviewed by me. Oral hydralazine has been stopped. The patient has been started on IV Dilaudid. Isosorbide dose has been increased to 20 mg by mouth three times a day. ASSESSMENT AND PLAN: 1. Acute oliguric renal failure. The patient is still oliguric at this point. He is still dialysis dependent. He got extra session of ultrafiltration done yesterday. He is due for regular hemodialysis today. I will try to do another 2.5 liters of fluid removal. 2. Anemia secondary to end stage renal disease. Hemoglobin is 8.1, which is suboptimal. If his hemoglobin drops more, I would give him a dose of PRBC transfusion. I have also started him on Aranesp 200 mcg with hemodialysis. 3. Acute pancreatitis. The patient still has some pain. Antibiotics have been stopped. Total parenteral nutrition (TPN) is on hold. He is on a liquid diet. Pain is being optimized with Dilaudid now. Morphine was stopped for possible association with rash. 4. Coronary artery disease and non-ST elevation myocardial infarction (VT) during intensive care unit (ICU) stay. Continue current dose of Coreg and isosorbide. Hydralazine has been stopped. Volume status is being optimized with dialysis. 5. Hyperkalemia. Potassium is 5.8. Dialysis with 2K dialysate today will help improve potassium levels.
[2018-08-22] MEDS ORDERED: LOPERAMIDE 2 MG CAP PO PRN (15:45)
--- NOTE | 2018-08-22 18:26 | IPNPDOC ---
Text Note Date of Service The patient was seen on 08/22/18. NOTE The patient was seen and examined. Continued to have watery diarrhea. Denies any chest pain, pressure or discomfort. Denies any fever or chills. Reported abdominal pain, that is more suprapubic. Denies any nausea or vomiting. PHYSICAL EXAMINATION: GENERAL: The patient in no acute distress, comfortable. HEENT: Normocephalic, atraumatic. NECK: Supple. CARDIAC: Regular. S1, S2. 2/6 systolic murmur. ABDOMEN: Soft, suprapubic tenderness. Mild distension. Positive bowel sounds. PULMONARY: Bilateral clear. EXTREMITIES: 1+ edema. ASSESSMENT AND PLAN: This is a 47-year-old male patient with underlying medical history of coronary artery disease with coronary artery bypass graft (CABG) in 2000, PCI with multiple stents. Most recent cardiac catheterization two years ago, history of congestive heart failure (CHF) with reduced ejection fraction, has a biventricular pacemaker, pacemaker defibrillator, insulin-dependent diabetes, complicated with diabetic neuropathy, chronic obstructive pulmonary disease (COPD), gastroesophageal reflux disease (GERD), hypertension, dyslipidemia, benign prostatic hypertrophy (BPH), history of cerebrovascular accident (CVA), history of methicillin-resistant Staphylococcus aureus (MRSA), sternal osteomyelitis, degenerative joint disease was initially presented to the hospital with shortness of breath and chest tightness. On presentation, the patient was diagnosed with non-ST segment elevation myocardial infarction (NSTEMI). Hospital course complicated with intubation, nitroglycerine drip with also hyperglycemia require insulin drip, complicated with hypotension, shock liver, as well as pancreatitis and also persistent leukocytosis, bonita urea and acute on chronic renal failure. PROBLEMS: 1. Abdominal pain secondary to pancreatitis has improved. Diet as tolerated. CT scan review has been appreciated. Surgery has been consulted. The patient has been on Dilaudid for pain medication. Pancreatic enzyme has been added given persistent diarrhea. Clostridium difficile work up has been negative. d/w Surgery, Imodium added. repeat ct abd. stool studies for diarrhea 2. Abdominal truncal rash as per infection disease, Dr. Hector, likely secondary to hydralazine. The patient's hydralazine has been on hold. Benadryl and prednisone as ordered. 3. Acute on chronic renal failure, currently end-stage renal requiring dialysis. Further management as per nephrology. 4. Persistent leukocytosis improved, was treated with broad-spectrum antibiotics and antifungal including Diflucan, Zosyn and vancomycin. Infectious disease has been consulted. Sputum culture showed Streptococcus agalactiae. Infectious disease has been consulted. Presently, the patient is off of antibiotics. 5. Acute coronary syndrome with non-ST segment elevation myocardial infarction (NSTEMI). Continue aspirin and Plavix, Coreg, isosorbide dinitrate. Hydralazine has been on hold given possible reaction. Isosorbide dinitrate has been increased. Automatic implantable cardioverted defibrillator (AICD) has been turned back on. Appreciate Dr. Giordano's input. The patient will need cardiac catheterization, once the patient is stable. 6. Acute pancreatitis, nausea and vomiting. The patient currently is off of total parenteral nutrition (TPN). Appreciate Dr. Nolasco's surgery consult. Diet as tolerated. Pancreatic enzyme has been added, titrate up as needed. 7. Status post shock liver secondary to non-ST segment elevation myocardial infarction (NSTEMI) and congestive heart failure (CHF), currently improved. 8. Generalized weakness and deconditioning. Protein calorie malnutrition. Diet as tolerated. The patient is status post total parenteral nutrition (TPN). 9. History of gastroesophageal reflux disease (GERD). Continue proton pump inhibitor (PPI). 10. Diabetes mellitus. Basal bolus insulin. Adjust as needed. 11. Acute on chronic anemia secondary to anemia of chronic disease. Also possible gastrointestinal (GI) bleed, status post 5 units packed red blood cells. Monitor complete blood count (CBC). Consulted GI given recent acute coronary syndrome. The patient is not a candidate for intervention at this time. Continue to monitor. 12. Protein calorie malnutrition. Status post total parenteral nutrition (TPN). Diet as tolerated. Dietary consult. Ensure clear. 13. Deep vein thrombosis (DVT) prophylaxis. teds and scd given concerns of GI bleed DISPOSITION: Likely will need short-term rehabilitation. Pain med as prescribed. clinical improvement. 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
[2018-08-23] VITALS (11 sets, daily range): BP systolic 110–136; BP diastolic 58–72; O2SAT 91–97
[2018-08-23] MEDS: HYDROMORPHONE HCL 0.5 MG/ 0.5 ML SYRINGE (J1170 PER 1) IV PRN ×4 (04:03→21:13)
[2018-08-23] MEDS: SLF 3 ML SYR IV SCH ×3 (06:00→21:13)
[2018-08-23 06:06] LABS: HEMATOCRIT 30.8 % (42.0-52.0); HEMOGLOBIN 9.7 g/dl (13.5-17.5); MEAN CORPUSCULAR HEMOGLOBIN 29.5 pg (27.0-33.0); MEAN CORPUSCULAR HGB CONC 31.5 g/dl (32.0-36.5); MEAN CORPUSCULAR VOLUME 93.6 fl (80.0-96.0); PLATELET COUNT, AUTOMATED 452 10^3/uL (150-450); RED BLOOD COUNT 3.29 10^6/uL (4.30-6.10); WHITE BLOOD COUNT 13.6 10^3/uL (4.0-10.0)
[2018-08-23] MEDS: ISOSORBIDE DIN (ISORDIL) 10 MG TAB PO SCH ×3 (06:14→17:02)
[2018-08-23 06:35] LABS: CREATININE FOR GFR 6.52 MG/DL (0.70-1.30); GLOMERULAR FILTRATION RATE 9.7 (>60); POTASSIUM SERUM 4.3 MEQ/L (3.5-5.1)
[2018-08-23] MEDS: ALBUTEROL SULFATE 2.5 MG/0.5 ML INH NEB SOLN NEB SCH ×4 (07:11→20:00)
[2018-08-23] MEDS: LEVEMIR (INSULIN DETEMIR) 1 UNITS/0.01ML SC SCH (07:19)
[2018-08-23] MEDS: HumaLOG INSULIN (NovoLOG) PER UNIT SC SCH ×4 (07:19→21:00)
[2018-08-23] MEDS: LACTOBACILLUS ACIDOPHILUS CAP (BACID) PO SCH ×3 (07:32→17:02)
[2018-08-23] MEDS: CLOPIDOGREL 75 MG TAB PO SCH (07:32)
[2018-08-23] MEDS: GASTROGRAFIN SOLUTION 30ML PO SCH ×2 (07:32→08:21)
[2018-08-23] MEDS: CARVedilol 6.25 MG TAB PO SCH ×2 (07:33→21:11)
[2018-08-23] MEDS: CREON-24 CAPSULE PO SCH ×3 (07:33→17:02)
[2018-08-23] MEDS: AMIODARONE 200 MG TAB (PACERONE) PO SCH (07:34)
[2018-08-23] MEDS: ASPIRIN 81 MG ENTERIC TAB PO SCH (07:34)
[2018-08-23] MEDS: ONDANSETRON 4MG/2ML VIAL (J2405) IV PRN (07:45)
[2018-08-23] MEDS ORDERED: ISOVUE-370 76% 100ML VIAL (Q9967) As Ordered ONE (09:13)
--- NOTE | 2018-08-23 10:22 | REP ---
RIGHT SHOULDER, THREE VIEWS: HISTORY: Pain. There is no acute fracture or dislocation. The joints spaces are normal in appearance. IMPRESSION: There is no acute fracture or dislocation. Electronically Signed by David Joel MD 08/23/2018 10:26 A
--- NOTE | 2018-08-23 10:23 | REP ---
CT ABDOMEN PELVIS WITH IV AND ORAL CONTRAST: HISTORY: Abdomen pain. Renal failure on dialysis. Comparison CT study August 17, 2018. CT CONTRAST DOSE: 100 mL of intravenous Isovue [address] FINDINGS: There are small bilateral pleural effusions, left a little larger than right. There is extensive bilateral lower lobe atelectasis again left more so than right. Mild cardiac enlargement is seen. Pacemaker leads are noted in place. There is minimal diffuse ascites. There is marked peripancreatic edema and fluid. There are irregular fluid collection is seen extending into the region of the lesser sac. Some of this has a thin enhancing margin. There is an inferior component of this complex collection measuring 5 cm in greatest diameter. There is edema in the small bowel mesentery. There is mixed attenuation or inflammatory edema in the pericolic gutters. There is a small quantity of fluid in the pelvic reflections. There is a fluid collection extending through a right inguinal hernia into the scrotal sac on the right. This is visible on the previous study. The upper abdominal fluid collections are essentially unchanged in overall volume from the recent prior study of August 17, 2018. The sigmoid colon shows gaseous distension consistent with ileus. This is similar to the prior study as well. No obstructive lesion is seen. IMPRESSION: Severe morphologic changes of pancreatitis are again seen with mild ascites and multiple disbursed abdominal fluid collections. Gaseous distension of the sigmoid colon consistent with ileus. Bilateral pleural effusions and bilateral lower lobe atelectatic changes in the lungs. Electronically Signed by Everett Kent MD 08/23/2018 06:01 P
--- NOTE | 2018-08-23 10:36 | IPN ---
DATE: 08/22/2018 SUBJECTIVE: The patient was seen and examined at the bedside today morning. He is hemodynamically stable. He was dialyzed yesterday, 2.5 liters of fluid was removed. He still reports pain in the abdomen. He reports that he is slightly better today as compared with yesterday, but he is not very well optimized with current dose of Dilaudid. His hemoglobin has dropped to 8 today. OBJECTIVE: VITAL SIGNS: Temperature is 96.8 degrees Fahrenheit, blood pressure 125/66, pulse is 78, respiratory rate of 20, saturating 94% on room air. INTAKE/OUTPUT: There is no urine output recorded. Ultrafiltration with hemodialysis was 2.5 liters yesterday. Weight on the bed scale is 99.7 kg, which is not reliable because it is 16 kg different from weight yesterday. PHYSICAL EXAMINATION: GENERAL: The patient is awake, alert, oriented times three, laying in bed, in no apparent disterss. HEAD AND NECK EXAM: Extraocular muscles intact. Pupils equally round and reactive to light. Mucous membranes are moist. Neck is supple. There is no jugular venous distention (JVD). He has a right internal jugular (IJ) tunneled hemodialysis catheter and left IJ triple lumen catheter. CARDIOVASCULAR: S1, S2. No edema on the bilateral lower extremities. Left sided automatic implantable cardioverter defibrillator (AICD) was noted. RESPIRATORY: Chest is clear to auscultation bilaterally. Bilateral equal air entry. No rales or rhonchi. ABDOMEN: Soft. Mildly tender to deep palpation. No rebound tenderness. MUSCULOSKELETAL: No clubbing or cyanosis. Pulses are 2+. 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 Power is 5/5 in all extremities. LAB REVIEW: CBC showed a WBC of 15.1, hemoglobin 8, platelets 471. BMP showed sodium 136, potassium 4.6, chloride 102, bicarbonate 26, BUN 50, creatinine 5.3, calcium 8.0, magnesium 2. CURRENT INPATIENT MEDICATIONS: Patient's medications were all reviewed by me. His Dilaudid dose has been slightly increased now. His pancreatic enzyme dose has been increased, two with each meal. ASSESSMENT AND PLAN: 1. Acute oliguric renal failure. The patient is still oliguric. He is dialysis dependent. His dialysis was done yesterday. Next hemodialysis session will be tomorrow. Volume status is optimized. 2. Anemia secondary to end stage renal disease. Hemoglobin is 8 today. He will be given 1 unit of PRBC transfusion. The patient has been started on Aranesp 200 mcg with hemodialysis as well. 3. Acute pancreatitis. The patient is tolerating a liquid diet now. Pain is being optimized with Dilaudid. Because of the persistent pain, patient is going to get a CAT scan of the abdomen with oral and IV contrast tomorrow morning before hemodialysis. 4. Coronary artery disease and non-ST elevation myocardial infarction (AL) during the hospital stay. The patient continues to be on Coreg, hydralazine, isosorbide. Volume status is being controlled with dialysis.
[2018-08-23] MEDS ORDERED: HEPARIN 1,000 UNITS/ML 10ML VIAL (FOR RADIOLOGY& DIALYSIS ONLY) IV ONE (10:45)
[2018-08-23] MEDS ORDERED: HEPARIN 1,000 UNITS/ML 10ML VIAL (FOR RADIOLOGY& DIALYSIS ONLY) XX ONE (10:45)
--- NOTE | 2018-08-23 18:27 | IPNPDOC ---
Text Note Date of Service The patient was seen on 08/23/18. NOTE The patient was seen and examined. Continued to have watery diarrhea. Denies any chest pain, pressure or discomfort. Denies any fever or chills. Reported abdominal pain poor po. Denies any nausea or vomiting. PHYSICAL EXAMINATION: GENERAL: The patient in no acute distress, comfortable. HEENT: Normocephalic, atraumatic. NECK: Supple. CARDIAC: Regular. S1, S2. 2/6 systolic murmur. ABDOMEN: Soft, difuse tenderness. Mild distension. Positive bowel sounds. PULMONARY: Bilateral clear. EXTREMITIES: 1+ edema. ASSESSMENT AND PLAN: This is a 47-year-old male patient with underlying medical history of coronary artery disease with coronary artery bypass graft (CABG) in 2000, PCI with multiple stents. Most recent cardiac catheterization two years ago, history of congestive heart failure (CHF) with reduced ejection fraction, has a biventricular pacemaker, pacemaker defibrillator, insulin-dependent diabetes, complicated with diabetic neuropathy, chronic obstructive pulmonary disease (COPD), gastroesophageal reflux disease (GERD), hypertension, dyslipidemia, benign prostatic hypertrophy (BPH), history of cerebrovascular accident (CVA), history of methicillin-resistant Staphylococcus aureus (MRSA), sternal osteomyelitis, degenerative joint disease was initially presented to the hospital with shortness of breath and chest tightness. On presentation, the patient was diagnosed with non-ST segment elevation myocardial infarction (NSTEMI). Hospital course complicated with intubation, nitroglycerine drip with also hyperglycemia require insulin drip, complicated with hypotension, shock liver, as well as pancreatitis and also persistent leukocytosis, bonita urea and acute on chronic renal failure. PROBLEMS: 1. Abdominal pain secondary to pancreatitis . Diet as tolerated. CT sca repeated. Surgery has been consulted. The patient has been on Dilaudid for pain medication. pain management consult. Pancreatic enzyme has been added given persistent diarrhea. Clostridium difficile work up has been negative. d/w Surgery, Imodium added. stool studies for diarrhea. likely restart TPN given poor po 2. Abdominal truncal rash as per infection disease, Dr. Hector, likely secondary to hydralazine. The patient's hydralazine has been on hold. Benadryl and prednisone as ordered. 3. Acute on chronic renal failure, currently end-stage renal requiring dialysis. Further management as per nephrology. 4. Persistent leukocytosis improved, was treated with broad-spectrum antibiotics and antifungal including Diflucan, Zosyn and vancomycin. Sputum culture showed Streptococcus agalactiae. Infectious disease has been consulted. Presently, the patient is off of antibiotics. 5. Acute coronary syndrome with non-ST segment elevation myocardial infarction (NSTEMI). Continue aspirin and Plavix, Coreg, isosorbide dinitrate. Hydralazine has been on hold given possible reaction. Isosorbide dinitrate has been increased. Automatic implantable cardioverted defibrillator (AICD) has been turned back on. Appreciate Dr. Giordano's input. The patient will need cardiac catheterization, once the patient is stable. 6. Acute pancreatitis, nausea and vomiting, resolved. abd pain and diarrhea. Appreciate Dr. Nolasco's surgery consult. Diet as tolerated. likely restart TPN. repeat ct abd appreciated. further rec as per surgery. Pancreatic enzyme has been added, titrate up as needed. 7. Status post shock liver secondary to non-ST segment elevation myocardial infarction (NSTEMI) and congestive heart failure (CHF), currently improved. 8. Generalized weakness and deconditioning. Protein calorie malnutrition. Diet as tolerated. restarting TPN, diet as tolerated 9. History of gastroesophageal reflux disease (GERD). Continue proton pump inhibitor (PPI). 10. Diabetes mellitus. Basal bolus insulin. Adjust as needed. 11. Acute on chronic anemia secondary to anemia of chronic disease. Also possible gastrointestinal (GI) bleed, status post 5 units packed red blood cells. Monitor complete blood count (CBC). Consulted GI given recent acute coronary syndrome. The patient is not a candidate for intervention at this time. Continue to monitor. 12. Protein calorie malnutrition. start total parenteral nutrition (TPN) tomorrow Diet as tolerated. Dietary consult. Ensure clear. 13. Deep vein thrombosis (DVT) prophylaxis. teds and scd given concerns of GI bleed DISPOSITION: Likely will need short-term rehabilitation. Pain med as prescribed. clinical improvement. Poor group home prognosis Kami JOHNSON, I+O VSKami, I+O Laboratory Tests 08/23/18 05:51 Red Blood Count 3.29 L, Mean Corpuscular Volume 93.6, Mean Corpuscular Hemoglobin 29.5, Mean Corpuscular Hemoglobin Concent 31.5 L, Red Cell Distribution Width 14.8 H, Calcium Level 8.0 L Vital Signs Date Time Temp Pulse Resp B/P (MAP) Pulse Ox O2 Delivery O2 Flow Rate FiO2 08/23/18 18:00 87 95 Nasal Cannula 2.0 08/23/18 17:02 135/60 08/23/18 17:01 20 08/23/18 17:00 97.2 I&O- Last 24 Hours up to 6 AM 08/23/18 06:00 Intake Total 760 ml Output Total 0 ml Balance 760 ml MASSIMO MAC MD Aug 23, 2018 18:27
[2018-08-24] VITALS (23 sets, daily range): BP systolic 106–150; BP diastolic 53–73; O2SAT 93–100
[2018-08-24] MEDS: HYDROMORPHONE HCL 0.5 MG/ 0.5 ML SYRINGE (J1170 PER 1) IV PRN ×6 (03:59→23:41)
[2018-08-24] MEDS: SLF 3 ML SYR IV SCH ×3 (05:23→20:40)
[2018-08-24] MEDS: ISOSORBIDE DIN (ISORDIL) 10 MG TAB PO SCH ×3 (06:00→20:40)
[2018-08-24 06:03] LABS: HEMATOCRIT 29.1 % (42.0-52.0); HEMOGLOBIN 9.3 g/dl (13.5-17.5); MEAN CORPUSCULAR HEMOGLOBIN 29.4 pg (27.0-33.0); MEAN CORPUSCULAR VOLUME 92.1 fl (80.0-96.0); PLATELET COUNT, AUTOMATED 473 10^3/uL (150-450); RED BLOOD COUNT 3.16 10^6/uL (4.30-6.10); WHITE BLOOD COUNT 14.5 10^3/uL (4.0-10.0)
[2018-08-24 06:28] LABS: CALCIUM LEVEL 8.1 MG/DL (8.5-10.1); CREATININE FOR GFR 4.46 MG/DL (0.70-1.30); GLOMERULAR FILTRATION RATE 15.1 (>60); MAGNESIUM LEVEL 2.1 MG/DL (1.8-2.4); POTASSIUM SERUM 3.7 MEQ/L (3.5-5.1); PREALBUMIN 11.7 MG/DL (20.0-40.0)
--- NOTE | 2018-08-24 06:42 | IPN ---
DATE OF SERVICE: 08/23/2018 SUBJECTIVE: The patient was seen and examined at the bedside today morning. Patient is afebrile. He does report that he is still having abdominal pain, which is not controlled with current dose of Dilaudid. The primary team is planning to call pain control for him. There are no signs of renal recovery, he is oliguric. Patient is going to have hemodialysis done today. He is also going to have a repeat CT scan of the abdomen done to rule out any complication of acute pancreatitis. OBJECTIVE: VITAL SIGNS: Temperature is 98.7 degrees Fahrenheit, blood pressure 128/72, pulse is 80, respiratory rate of 18, saturating 96% on room air. INTAKE/OUTPUT: Urine output recorded as only 50 mL. Weight on the bed scale is 94.6 kg. PHYSICAL EXAMINATION: GENERAL: The patient is awake, alert, oriented times three, laying in bed, in no apparent distress. HEAD AND NECK EXAM: Extraocular muscles intact. Pupils equally round and reactive to light. Mucous membranes are moist. Neck is supple. There is no jugular venous distention (JVD). He has a right internal jugular (IJ) tunneled hemodialysis catheter. CARDIOVASCULAR: S1, S2. No edema on the bilateral lower extremities. He has a left sided automatic implantable cardioverter defibrillator (AICD). RESPIRATORY: Chest is clear to auscultation bilaterally. Bilateral equal air entry. No rales or rhonchi. ABDOMEN: Soft. Mildly tender to deep palpation in the epigastrium. MUSCULOSKELETAL: No clubbing or cyanosis. Pulses are 2+. CENTRAL NERVOUS SYSTEM (COLLEGE OR UNIVERSITY DEPARTMENT HEAD): No focal deficit. Power is 5/5 in all extremities. LAB REVIEW: CBC showed a WBC of 13.6, hemoglobin 9.7, platelets 452. BMP showed sodium 137, potassium 4.3, chloride 101, bicarbonate 23, BUN 56, creatinine 6.5, calcium 8, magnesium is 2. IMAGING: CT scan of the abdomen and pelvis with contrast was done today which showed severe morphological changes of pancreatitis with mild ascites and multiple disbursed abdominal fluid collections. Gaseous distention of the sigmoid colon consistent with ileus. Bilateral pleural effusions and bilateral lower lobe atelectasis changes. CURRENT INPATIENT MEDICATIONS: Patient's medications were all reviewed by me. There is no change in the medications today as compared with yesterday. ASSESSMENT AND PLAN: 1. Acute oliguric renal failure. The patient continues to be oliguric. He is dialysis dependent. He is going to be dialyzed today in the afternoon. Ultrafiltration goal will be 2.5 liters as tolerated by his blood pressure. 2. Anemia secondary to end stage renal disease. The patient's hemoglobin is 9.7, which is optimal. He received 1 unit of PRBC transfusion. Continue current dose of Aranesp with hemodialysis. 3. Acute pancreatitis. The patient got a repeat CT scan of the abdomen and pelvis done with contrast which showed severe acute pancreatitis changes, multiple fluid collections. Continue pain optimization with Dilaudid. The rest of the management is as per primary team. If the patient needs TPN he can get a tunneled PICC line. 4. Coronary artery disease and non-ST elevation myocardial infarction (NV). Patient recently had an NSTEMI during ICU stay. Continue Coreg, hydralazine, and isosorbide. Volume status is being optimized with hemodialysis.
--- NOTE | 2018-08-24 07:10 | IPNPDOC ---
Subjective General Date/Time Seen The patient was seen on 08/23/18 at 4 pm Subject Chief Complaint/History Patient was seen during dialysis. He had a CT scan of the abdomen and pelvis today and he asked me to reevaluate him. He continues to complain of still significant upper abdominal discomfort sometimes mild nausea. He reports he has not been able to tolerate much oral intake, probably takes about 1 bottle of Ensure the whole day. He continues to have multiple loose stools. Slightly less bloated. Current Medications Current Medications Current Medications Acetaminophen (Tylenol Suspension) 650 mg Q4HP PRN GT PAIN OR FEVER Last administered on 08/11/18at 07:09; Start 08/03/18 at 10:45; Stop 08/11/18 at 09:27; Status DC Acetaminophen (Tylenol Tab) 650 mg Q6HP PRN PO PAIN / FEVER Last administered on 08/21/18at 06:39; Start 08/20/18 at 17:30 Albuterol Sulfate (Proventil Neb) 2.5 mg RQID NEB Last administered on 08/23/18at 11:05; Start 07/31/18 at 08:00 Amiodarone HCl (Pacerone, Cordarone) 400 mg DAILY PO Last administered on 08/23/18at 07:34; Start 08/14/18 at 09:00 Amiodarone HCl (Pacerone, Cordarone) 400 mg Q12H GT Last administered on at 10:15; Start 08/11/18 at 09:00; Stop 08/13/18 at 15:15; Status DC Amiodarone HCl (Pacerone, Cordarone) 400 mg Q8H GT Last administered on 08/10/18at 21:26; Start 08/02/18 at 22:00; Stop 08/10/18 at 21:52; Status DC Amiodarone HCl 360 mg/IV Miscellaneous Supplies 200 ml @ 16.66 mls/ hr Q12H1M IV ; Start 08/02/18 at 20:00; Stop 08/02/18 at 20:00; Status DC Amiodarone HCl 360 mg/IV Miscellaneous Supplies 200 ml @ 33.33 mls/ hr Q6H1M IV Last administered on 08/02/18at 13:30; Start 08/02/18 at 14:00; Stop 08/02/18 at 20:00; Status DC Aspirin (Aspirin Chewable) 81 mg BID NG Last administered on 08/13/18at 10:14; Start 07/31/18 at 09:00; Stop 08/13/18 at 15:15; Status DC Aspirin (Ecotrin) 81 mg BID PO ; Start 07/31/18 at 09:00; Stop 07/31/18 at 12:11; Status DC Aspirin (Ecotrin) 81 mg DAILY PO Last administered on 08/23/18at 07:34; Start 08/14/18 at 09:00 Bisoprolol Fumarate (Zebeta) 2.5 mg Q12H GT Last administered on 08/10/18at 09:18; Start 08/02/18 at 21:00; Stop 08/10/18 at 11:23; Status DC Calcium Gluconate 1000 mg/Dextrose 110 ml @ 110 mls/hr ASDIRECTED IV ; Start 08/03/18 at 16:00; Status UNV Calcium Gluconate 1000 mg/Dextrose 110 ml @ 110 mls/hr Q1H IV Last adm inistered on 08/03/18at 17:18; Start 08/03/18 at 16:30; Stop 08/03/18 at 18:29; Status DC Calcium Gluconate 1000 mg/Dextrose 110 ml @ 110 mls/hr Q1H IV Last administered on 08/04/18at 10:15; Start 08/04/18 at 09:00; Stop 08/04/18 at 10:59; Status DC Calcium Gluconate 1000 mg/Dextrose 110 ml @ 110 mls/hr Q1H IV Last administered on 08/04/18at 16:00; Start 08/04/18 at 15:00; Stop 08/04/18 at 16:59; Status DC Calcium Gluconate 1000 mg/Dextrose 110 ml @ 110 mls/hr Q1H IV Last administ ered on 08/05/18at 16:12; Start 08/05/18 at 15:00; Stop 08/05/18 at 16:59; Status DC Calcium Gluconate 1000 mg/Sodium Chloride 110 ml @ 110 mls/hr ASDIRECTED IV ; Start 08/04/18 at 21:30; Stop 08/04/18 at 22:23; Status DC Calcium Gluconate 1000 mg/Sodium Chloride 110 ml @ 110 mls/hr Q1H IV Last administered on 08/05/18at 00:39; Start 08/04/18 at 22:30; Stop 08/05/18 at 01:29; Status DC Calcium Gluconate 1000 mg/Sodium Chloride 110 ml @ 110 mls/hr Q1H IV Last administered on 08/05/18at 04:43; Start 08/05/18 at 03:00; Stop 08/05/18 at 04:59; Status DC Calcium Gluconate 1000 mg/Sodium Chloride 110 ml @ 110 mls/hr Q1H IV Last administered on 08/05/18at 10:15; Start 08/05/18 at 09:00; Stop 08/05/18 at 10:59; Status DC Carvedilol (COReg) 6.25 mg BID PO Last administered on 08/23/18at 21:11; Start 08/16/18 at 21:00 Carvedilol (COReg) 6.25 mg BID PO Last administered on 08/16/18at 08:02; Start 08/13/18 at 21:00; Stop 08/16/18 at 21:07; Status DC Carvedilol (COReg) 6.25 mg Q6H NG Last administered on 07/31/18at 18:13; Start 07/31/18 at 12:00; Stop 08/02/18 at 16:05; Status DC Chlorhexidine Gluconate (Peridex Oral Rinse) SWAB/BRUSH ORAL CAVITY BID MT Last administered on 08/12/18at 08:49; Start 07/31/18 at 09:00; Stop 08/12/18 at 19:14; Status DC Clopidogrel Bisulfate (PLAVix) 75 mg DAILY PO Last administered on 08/23/18at 07:32; Start 07/31/18 at 09:00 Darbepoetin Jay (Aranesp (Dialysis Use)) 200 mcg HD IV ; Start 08/18/18 at 11:15 Dextrose (Dextrose 50%) 25 ml ASDIRECTED PRN IV SEE LABEL COMMENTS Last administered on 08/11/18at 01:22; Start 08/02/18 at 02:00 Diatrizoate Meglum/ Diatrizoate Sod (Gastrografin) 10 ml Q30M PO Last administered on 08/23/18at 08:21; Start 08/23/18 at 07:30; Stop 08/23/18 at 08:01; Status DC Diatrizoate Meglum/ Diatrizoate Sod (Gastrografin) 10 ml Q30M PO Last administered on 08/10/18at 13:51; Start 08/10/18 at 12:00; Stop 08/10/18 at 13:05; Status DC Digoxin (Lanoxin) 0.25 mg Q6H IV Last administered on 08/02/18at 09:50; Start 08/01/18 at 21:00; Stop 08/02/18 at 15:01; Status DC Diphenhydramine HCl (Benadryl) 25 mg Q6HP PRN PO ITCHING Last administered on 08/19/18at 14:44; Start 08/18/18 at 18:00 Etomidate (Amidate) 20 mg STAT STAT IV Last administered on 07/31/18at 05:13; Start 07/31/18 at 05:30; Stop 07/31/18 at 05:47; Status DC Fat Emulsion Intravenous 500 ml @ 20 mls/hr ONCE@1800 IV Last administered on 08/17/18at 18:39; Start 08/17/18 at 18:00; Stop 08/18/18 at 17:59; Status DC Fat Emulsion Intravenous 500 ml @ 20 mls/hr ONCE@1800 IV Last administered on 08/18/18at 17:23; Start 08/18/18 at 18:00; Stop 08/19/18 at 12:16; Status DC Fat Emulsion Intravenous 500 ml @ 20 mls/hr ONCE@1800 IV Last administered on 08/12/18at 18:01; Start 08/12/18 at 18:00; Stop 08/13/18 at 17:59; Status DC Fat Emulsion Intravenous 500 ml @ 20 mls/hr ONCE@1800 IV Last administered on 08/13/18at 17:50; Start 08/13/18 at 18:00; Stop 08/14/18 at 17:59; Status DC Fentanyl Citrate (Sublimaze) 25 mcg Q1HP PRN IV Pain Last administered on 08/09/18 16:51; Start 08/02/18 at 12:15; Stop 08/12/18 at 09:12; Status DC Fluconazole 100 mg/IV Miscellaneous Supplies 50 ml @ 50 mls/hr Q24H IV Last administered on 1/7/19at 15:22; Start 08/08/18 at 16:00; Stop 08/13/18 at 22:06; Status DC Furosemide (LASIX injection) 100 mg STAT STAT IV Last administered on 07/31/18at 05:05; Start 07/31/18 at 05:38; Stop 07/31/18 at 05:41; Status DC Glucagon (Glucagon) 1 mg ASDIRECTED PRN SC SEE LABEL COMMENTS; Start 08/02/18 at 02:00 Glucose (Glucose) 16 GM ASDIRECTED PRN PO SEE LABEL COMMENTS; Start 08/02/18 at 02:00 Heparin Sodium (Heparin Lock Flush 10units/ml) 10 units ASDIRECTED PRN IV SEE LABEL COMMENTS Last administered on 08/18/18at 19:49; Start 08/03/18 at 10:30; Stop 08/20/18 at 14:11; Status DC Heparin Sodium (Heparin Lock Flush 10units/ml) 10 units HLF IV Last administered on 08/20/18at 05:24; Start 08/03/18 at 14:00; Stop 08/20/18 at 14:11; Status DC Heparin Sodium (Heparin) ASDIRECTED PRN IV SEE LABEL COMMENTS; Start 08/03/18 at 12:30; Stop 08/07/18 at 10:09; Status DC Heparin Sodium (Heparin) ASDIRECTED PRN IV SEE LABEL COMMENTS Last administered on 08/14/18at 02:20; Start 08/05/18 at 04:00 Heparin Sodium (Porcine) (Heparin) ASDIRECTED PRN IV SEE LABEL COMMENTS; Start 07/31/18 at 12:30; Stop 07/31/18 at 12:37; Status DC Heparin Sodium (Porcine) (Heparin) ASDIRECTED PRN IV SEE LABEL COMMENTS Last administered on 07/31/18at 21:31; Start 07/31/18 at 12:45; Stop 08/03/18 at 21:46; Status DC Heparin Sodium (Porcine) (Heparin) 5,000 units Q12H SQ Last administered on 08/13/18at 15:22; Start 08/13/18 at 09:00; Stop 08/13/18 at 17:55; Status DC Heparin Sodium (Porcine) (Heparin) 5,000 units Q8H SC ; Start 07/31/18 at 06:00; Stop 07/31/18 at 12:11; Status DC Heparin Sodium (Porcine) 07557 units/IV Miscellaneous Supplies 250 ml @ 0 mls/hr Q0M IV ; Start 07/31/18 at 12:18; Status UNV Heparin Sodium (Porcine) 37631 units/IV Miscellaneous Supplies 250 ml @ 0 mls/hr Q0M IV ; Start 07/31/18 at 12:38; Stop 07/31/18 at 12:43; Status DC Heparin Sodium (Porcine) 80632 units/IV Miscellaneous Supplies 250 ml @ 0 mls/hr Q0M IV Last administered on 08/02/18at 09:40; Start 07/31/18 at 12:41; Stop 08/03/18 at 21:34; Status DC Home Med (Med Rec Complete!) ASDIRECTED XX ; Start 07/31/18 at 07:30; Stop 07/31/18 at 07:30; Status DC Hydralazine HCl (Apresoline) 10 mg QID PO Last administered on 08/21/18at 09:04; Start 08/16/18 at 21:00; Stop 08/21/18 at 10:17; Status DC Hydralazine HCl (Apresoline) 10 mg QID PO Last administered on 08/16/18at 17:47; Start 08/13/18 at 17:00; Stop 08/16/18 at 21:07; Status DC Hydralazine HCl (Apresoline) 10 mg TID PO Last administered on 08/21/18at 17:20; Start 08/21/18 at 16:00; Stop 08/21/18 at 18:01; Status DC Hydralazine HCl (Apresoline) 20 mg STAT STAT IV Last administered on 07/31/18at 05:09; Start 07/31/18 at 05:15; Stop 07/31/18 at 05:41; Status DC Hydromorphone HCl (Dilaudid) 0.2 mg Q3HP PRN IV MILD PAIN (PS 1-4); Start 08/21/18 at 12:45; Stop 08/22/18 at 10:37; Status DC Hydromorphone HCl (Dilaudid) 0.2 mg Q3HP PRN IV MILD PAIN (PS 1-4); Start 08/22/18 at 10:45; Stop 08/23/18 at 08:57; Status DC Hydromorphone HCl (Dilaudid) 0.3 mg Q3HP PRN IV MILD PAIN (PS 1-4) Last administered on 08/24/18at 03:59; Start 08/23/18 at 09:00 Hydromorphone HCl (Dilaudid) 0.4 mg Q3HP PRN IV MODERATE PAIN (PS 5-7) Last administered on 08/22/18at 09:20; Start 08/21/18 at 12:45; Stop 08/22/18 at 10:37; Status DC Hydromorphone HCl (Dilaudid) 0.4 mg Q3HP PRN IV MODERATE PAIN (PS 5-7) Last administered on 08/23/18at 08:30; Start 08/22/18 at 10:45; Stop 08/23/18 at 08:57; Status DC Hydromorphone HCl (Dilaudid) 0.6 mg Q3HP PRN IV MODERATE PAIN (PS 5-7); Start 08/23/18 at 09:00 Insulin Detemir (Levemir Insulin) 10 units QHS SC Last administered on 08/16/18at 21:39; Start 08/14/18 at 21:00; Stop 08/17/18 at 08:27; Status DC Insulin Detemir (Levemir Insulin) 25 units QAM SC Last administered on 08/22/18at 09:18; Start 08/20/18 at 09:00 Insulin Detemir (Levemir Insulin) 25 units QAM SC Last administered on 08/18/18 at 10:57; Start 08/15/18 at 09:00; Stop 08/19/18 at 07:53; Status DC Insulin Detemir (Levemir Insulin) 25 units QHS SC Last administered on 08/13/18at 18:21; Start 08/13/18 at 18:15; Stop 08/14/18 at 08:08; Status DC Insulin Detemir (Levemir Insulin) 35 units QAM SC Last administered on 08/19/18at 08:51; Start 08/19/18 at 09:00; Stop 08/20/18 at 07:35; Status DC Insulin Human Lispro (HumaLOG INSULIN) SEE PROTOCOL TABLE AC SC ; Start 08/15/18 at 07:30; Stop 08/15/18 at 07:30; Status DC Insulin Human Lispro (HumaLOG INSULIN) SEE PROTOCOL TABLE AC SC Last administered on 08/23/18at 17:00; Start 08/15/18 at 07:30; Status Future hold Insulin Human Lispro (HumaLOG INSULIN) SEE PROTOCOL TABLE Q6H SC Last administered on 08/10/18at 11:37; Start 08/08/18 at 12:00; Stop 08/10/18 at 16:59; Status DC Insulin Human Lispro (HumaLOG INSULIN) SEE PROTOCOL TABLE Q6H SC Last administered on 08/08/18at 05:58; Start 08/02/18 at 12:00; Stop 08/08/18 at 07:35; Status DC Insulin Human Lispro (HumaLOG INSULIN) SEE PROTOCOL TABLE QHS SC Last administered on 08/14/18at 20:59; Start 08/14/18 at 21:00; Status Future hold Insulin Human Lispro (HumaLOG INSULIN) See Protocol Table Q6H SC Last administered on 08/18/18at 06:12; Start 08/17/18 at 18:00; Stop 08/18/18 at 12:01; Status DC Insulin Human Lispro (HumaLOG INSULIN) See Protocol Table Q6H SC Last administered on 08/19/18at 12:48; Start 08/18/18 at 18:00; Stop 08/19/18 at 12:01; Status DC Insulin Human Lispro (HumaLOG INSULIN) See Protocol Table Q6H SC Last administered on 08/13/18at 12:09; Start 08/12/18 at 18:00; Stop 08/13/18 at 12:01; Status DC Insulin Human Lispro (HumaLOG INSULIN) See Protocol Table Q6H SC Last administered on 08/14/18at 13:03; Start 08/13/18 at 18:00; Stop 08/14/18 at 12:01; Status DC Insulin Human Regular 100 units/ Sodium Chloride 100 ml @ 4.5 mls/hr [id number] IV Last administered on 08/12/18at 11:49; Start 08/10/18 at 12:00; Stop 08/12/18 at 14:57; Status DC Insulin Human Regular 100 units/ Sodium Chloride 100 ml @ 3 mls/hr Q24H IV ; Start 07/31/18 at 07:00; Stop 07/31/18 at 11:42; Status DC Insulin Human Regular 100 units/ Sodium Chloride 100 ml @ 5 mls/hr Q20H IV Last administered on 07/31/18at 06:44; Start 07/31/18 at 06:45; Stop 07/31/18 at 09:36; Status DC Insulin Human Regular 100 units/ Sodium Chloride 100 ml @ 8 mls/hr [id number] IV Last administered on 08/02/18at 04:13; Start 07/31/18 at 07:00; Stop 08/02/18 at 10:05; Status DC Isosorbide Dinitrate (Isordil) 10 mg TID@07,12,17 PO Last administered on 08/21/18at 06:39; Start 08/13/18 at 17:00; Stop 08/21/18 at 10:17; Status DC Isosorbide Dinitrate (Isordil) 20 mg TID@07,12,17 PO Last administered on 08/24/18at 06:00; Start 08/21/18 at 12:00 Lactobacillus Acidophilus (Bacid) 1 ea WM PO Last administered on 08/23/18at 17:02; Start 08/21/18 at 12:30 Levetiracetam 500 mg/Dextrose 105 ml @ 420 mls/hr Q12H IV Last administered on 08/12/18at 08:49; Start 08/05/18 at 09:00; Stop 08/12/18 at 09:12; Status DC Loperamide HCl (Imodium) 2 mg ASDIRECTED PRN PO DIARRHEA Last administered on 08/23/18at 12:00; Start 08/22/18 at 15:45 Metoclopramide HCl (REGLAN INJection) 5 mg Q8H IV Last administered on 08/11/18at 02:13; Start 08/06/18 at 02:00; Stop 08/11/18 at 09:27; Status DC Metoclopramide HCl (REGLAN INJection) 10 mg Q6H IV Last administered on 08/05/18at 17:52; Start 08/05/18 at 18:00; Stop 08/05/18 at 20:41; Status DC Midazolam HCl (Versed) 2 mg Q15MP PRN IV AGITATION Last administered on 08/10/18at 18:33; Start 08/05/18 at 04:45; Stop 08/12/18 at 09:12; Status DC Midazolam HCl (Versed) 2 mg Q1HP PRN IV AGITATION Last administered on 08/05/18at 04:07; Start 08/02/18 at 21:00; Stop 08/05/18 at 04:43; Status DC Miscellaneous (Unresolved Clarification Entry) SEE LABEL COMMENTS DAILY XX ; Start 08/08/18 at 09:00; Stop 08/08/18 at 15:02; Status DC Miscellaneous (Unresolved Clarification Entry) SEE LABEL COMMENTS DAILY XX ; Start 08/14/18 at 09:00; Stop 08/14/18 at 18:25; Status DC Morphine Sulfate (Morphine Sulfate Inj) 2 mg Q4HP PRN IV PAIN Last administered on 08/17/18at 08:53; Start 08/17/18 at 08:45; Stop 08/17/18 at 11:21; Status DC Morphine Sulfate (Morphine Sulfate Inj) 4 mg Q3HP PRN IV PAIN Last administered on 08/20/18at 06:17; Start 08/17/18 at 11:30; Stop 08/20/18 at 10:05; Status DC Nitroglycerin 25 mg/IV Miscellaneous Supplies 250 ml @ 3 mls/hr Q24H IV Last administered on 07/31/18at 05:01; Start 07/31/18 at 05:00; Stop 07/31/18 at 09:41; Status DC Non-Formulary Medication ( See Comment Field Below ) [facility]. DOSING ASDIRECTED XX ; Start 08/11/18 at 06:45; Stop 08/14/18 at 03:08; Status DC Non-Formulary Medication (Heparin Iv Rate Change Documentation ml/ Hr) ASDIRECTED XX ; Start 07/31/18 at 12:30; Stop 07/31/18 at 12:37; Status DC Non-Formulary Medication (Heparin Iv Rate Change Documentation ml/ Hr) ASDIRECTED XX Last administered on 08/02/18at 08:04; Start 07/31/18 at 12:45; Stop 08/03/18 at 21:34; Status DC Non-Formulary Medication (Insulin Iv Rate Change Documentation ml/ Hr) ASDIRECTED XX Last administered on 08/12/18at 02:52; Start 08/10/18 at 11:30; Stop 08/12/18 at 19:45; Status DC Non-Formulary Medication (Insulin Iv Rate Change Documentation ml/ Hr) ASDIR ECTED XX ; Start 07/31/18 at 06:45; Stop 07/31/18 at 09:36; Status DC Non-Formulary Medication (Insulin Iv Rate Change Documentation ml/ Hr) ASDIRECTED XX ; Start 07/31/18 at 07:00; Stop 07/31/18 at 11:42; Status DC Non-Formulary Medication (Insulin Iv Rate Change Documentation ml/ Hr) ASDIR ECTED XX Last administered on 08/02/18at 08:27; Start 07/31/18 at 11:45; Stop 08/02/18 at 10:05; Status DC Norepinephrine Bitartrate 16 mg/ Dextrose 500 ml @ 18.8 mls/hr Q24H IV Last administered on 08/10/18at 11:58; Start 08/05/18 at 00:00; Stop 08/12/18 at 14:59; Status DC Norepinephrine Bitartrate 8 mg/ Dextrose 500 ml @ 37.5 mls/hr [id number] IV Last administered on 07/31/18at 08:00; Start 07/31/18 at 07:51; Stop 07/31/18 at 19:59; Status DC Norepinephrine Bitartrate 8 mg/ Dextrose 500 ml @ 67.5 mls/hr Q7H25M IV Last administered on 08/04/18at 19:42; Start 07/31/18 at 20:00; Stop 08/04/18 at 21:04; Status DC Ondansetron HCl (ZOFRAN INJection) 4 mg Q6HP PRN IV NAUSEA OR VOMITING Last administered on 08/23/18at 07:45; Start 08/16/18 at 13:30 Oxycodone/ Acetaminophen (Percocet 5mg/ 325mg Tablet) 1 tab Q4HP PRN PO MILD/MODERATE PAIN (PS 1-7) Last administered on 08/20/18at 10:01; Start 08/18/18 at 09:45; Stop 08/20/18 at 10:05; Status DC Oxycodone/ Acetaminophen (Percocet 5mg/ 325mg Tablet) 2 tab Q6HP PRN PO SEVERE PAIN (PS 8-10) Last administered on 08/19/18at 21:01; Start 08/18/18 at 09:45; Stop 08/20/18 at 10:05; Status DC Pancrelipase (Creon-24) 1 ea WM PO Last administered on 08/21/18at 17:23; Start 08/21/18 at 18:00; Stop 08/22/18 at 07:31; Status DC Pancrelipase (Creon-24) 2 ea WM PO Last administered on 08/23/18at 17:02; Start 08/22/18 at 08:00 Pantoprazole Sodium (Protonix) 40 mg BID IV Last administered on 08/19/18at 21:00; Start 08/15/18 at 09:00; Stop 08/20/18 at 08:59; Status DC Pantoprazole Sodium (Protonix) 40 mg DAILY IV Last administered on 08/14/18at 09:18; Start 07/31/18 at 09:00; Stop 08/15/18 at 08:52; Status DC Piperacillin Sod/ Tazobactam Sod 3.375 gm/Dextrose 50 ml @ 50 mls/hr Q6H IV Last administered on 08/14/18at 18:09; Start 08/02/18 at 13:00; Stop 08/14/18 at 18:25; Status DC Piperacillin Sod/ Tazobactam Sod 4.5 gm/Dextrose 50 ml @ 50 mls/hr Q6H IV Last administered on 08/02/18at 05:26; Start 07/31/18 at 12:00; Stop 08/02/18 at 13:59; Status DC Propofol 1000 mg/ IV Miscellaneous Supplies 100 ml @ 5.25 mls/hr Q19H3M IV Last administered on 07/31/18at 16:56; Start 07/31/18 at 07:51; Stop 07/31/18 at 17:25; Status DC Propofol 1000 mg/ IV Miscellaneous Supplies 100 ml @ 5.25 mls/hr Q19H3M IV Last administered on 08/02/18at 16:59; Start 07/31/18 at 17:24; Stop 08/06/18 at 09:32; Status DC Propofol 1000 mg/ IV Miscellaneous Supplies 100 ml @ 17.33 mls/ hr Q5H47M IV Last administered on 07/31/18at 05:17; Start 07/31/18 at 05:45; Stop 07/31/18 at 08:07; Status DC Rosuvastatin Calcium (Crestor) 20 mg DAILY PO Last administered on 08/03/18at 09:16; Start 07/31/18 at 09:00; Stop 08/03/18 at 21:47; Status DC Sacubitril/ Valsartan (Entresto 24-26 Mg) 2 tab BID PO Last administered on 07/31/18at 20:08; Start 07/31/18 at 21:00; Stop 08/01/18 at 16:02; Status DC Sodium Bicarbonate 150 meq/Dextrose/Water 1,150 ml @ 100 mls/hr [id number] IV Last administered on 08/03/18at 10:51; Start 08/02/18 at 21:00; Stop 08/03/18 at 18:53; Status DC Sodium Bicarbonate (Sodium Bicarbonate) 50 meq STAT STAT IV Last administered on 07/31/18at 08:00; Start 07/31/18 at 09:02; Stop 07/31/18 at 09:04; Status DC Sodium Chloride 1,000 ml @ 3 mls/hr Q24H IV Last administered on 08/15/18at 21:11; Start 08/12/18 at 23:00; Stop 08/16/18 at 17:07; Status DC Sodium Chloride 1,000 ml @ 3 mls/hr Q24H IV Last administered on 08/14/18at 00:20; Start 08/12/18 at 23:00; Stop 08/15/18 at 22:31; Status DC Sodium Chloride (Saline Lock Flush) 2 ml ASDIRECTED PRN IV SEE LABEL COMMENTS; Start 08/20/18 at 14:15 Sodium Chloride (Saline Lock Flush) 2 ml ASDIRECTED PRN IV SEE LABEL COMMENTS; Start 08/03/18 at 10:30; Stop 08/05/18 at 21:38; Status DC Sodium Chloride (Saline Lock Flush) 2 ml SLF IV Last administered on 08/24/18at 05:23; Start 08/20/18 at 22:00 Sodium Chloride (Saline Lock Flush) 2 ml SLF IV Last administered on 08/04/18at 06:27; Start 08/03/18 at 14:00; Stop 08/05/18 at 21:38; Status DC Sodium Chloride (Saline Lock Flush) 10 ml ASDIRECTED PRN IV SEE LABEL COMMENTS Last administered on 08/18/18at 19:49; Start 08/03/18 at 10:30; Stop 08/20/18 at 14:11; Status DC Sodium Chloride (Saline Lock Flush) 10 ml SLF IV Last administered on 08/20/18at 05:24; Start 08/03/18 at 14:00; Stop 08/20/18 at 14:11; Status DC Sodium Chloride (Saline Lock Flush) 10ML IN EACH SAILAJA... ASDIRECTED PRN IV SEE LABEL COMMENTS; Start 08/09/18 at 10:15; Status Cancel Sodium Chloride (Saline Lock Flush) 10ML IN EACH SAILAJA... ASDIRECTED PRN IV SEE LABEL COMMENTS; Start 08/03/18 at 12:30; Status Cancel Sodium Chloride (Saline Lock Flush) 10ML IN EACH SAILAJA... ASDIRECTED PRN IV SEE LABEL COMMENTS; Start 08/05/18 at 04:00; Status Cancel Sodium Chloride 200 meq/Sodium Acetate 40 meq/ Potassium Chloride 20 meq/ Calcium Gluconate 2381 mg/Insulin Human Regular 12 units/Amino Acids/ Dextrose 2,103.93 ml @ 70 mls/hr ONCE@1800 IV Last administered on 08/12/18at 18:00; Start 08/12/18 at 18:00; Stop 08/13/18 at 17:59; Status DC Sodium Chloride 200 meq/Sodium Acetate 40 meq/ Potassium Chloride 40 meq/ P otassium Phosphate 20 mmol/ Magnesium Sulfate 4.7 meq/Calcium Gluconate 2381 mg/ Multivitamins 10 ml/Chromium/ Copper/Manganese/ Seleni/Zn 1 ml/ Insulin Human Regular 35.7 units/Amino Acids/ Dextrose 2,133.0087 ml @ 70 mls/hr ONCE@1800 IV Last administered on 08/17/18at 18:38; Start 08/17/18 at 18:00; Stop 08/18/18 at 17:59; Status DC Sodium Chloride 200 meq/Sodium Acetate 40 meq/ Potassium Chloride 40 meq/ Potassium Phosphate 20 mmol/ Magnesium Sulfate 4.7 meq/Calcium Gluconate 2381 mg/ Multivitamins 10 ml/Chromium/ Copper/Manganese/ Seleni/Zn 1 ml/ Insulin Human Regular 35.7 units/Amino Acids/ Dextrose 2,133.0087 ml @ 70 mls/hr ONCE@1800 IV Last administered on 08/13/18at 17:50; Start 08/13/18 at 18:00; Stop 08/14/18 at 17:59; Status DC Sodium Chloride 200 meq/Sodium Acetate 40 meq/ Potassium Chloride 40 meq/ Potassium Phosphate 20 mmol/ Magnesium Sulfate 4.8 meq/Calcium Gluconate 2380 mg/ Insulin Human Regular 36 units/ Amino Acids/ Dextrose 2,122.0267 ml @ 70 mls/hr ONCE@1800 IV Last administered on 08/18/18at 17:24; Start 08/18/18 at 18:00; Stop 08/19/18 at 12:16; Status DC Succinylcholine Chloride (Quelicin) 100 mg STAT STAT IV Last administered on 07/31/18at 05:13; Start 07/31/18 at 05:30; Stop 07/31/18 at 05:47; Status DC Vancomycin HCl 1000 mg/IV Miscellaneous Supplies 1 each/ Dextrose 270 ml @ 270 mls/hr Q12H IV Last administered on 08/01/18at 20:49; Start 08/01/18 at 21:00; Stop 08/02/18 at 12:40; Status DC Vancomycin HCl 1000 mg/IV Miscellaneous Supplies 1 each/ Dextrose 270 ml @ 270 mls/hr Q24H IV ; Start 08/03/18 at 08:00; Stop 08/03/18 at 08:00; Status DC Vancomycin HCl 1000 mg/IV Miscellaneous Supplies 1 each/ Dextrose 270 ml @ 270 mls/hr Q8H IV Last administered on 08/01/18at 10:11; Start 07/31/18 at 11:00; Stop 08/01/18 at 18:15; Status DC Vasopressin 20 units/Sodium Chloride 500 ml @ 60 mls/hr Q8H20M IV Last administered on 08/08/18at 08:12; Start 08/02/18 at 15:00; Stop 08/12/18 at 14:59; Status DC Vecuronium [place] (Norcuron) 10 mg STAT STAT IV Last administered on 12/25/18at 05:27; Start 07/31/18 at 05:30; Stop 07/31/18 at 05:47; Status DC Allergies Coded Allergies: No Known Drug Allergy (Verified Allergy, Unknown, 11/28/16) Objective Physical Examination Examination GENERAL APPEARANCE: Patient is undergoing dialysis appears relatively comfortable. SKIN: Warm and dry. HEENT: Mild pale palpebral conjunctiva. Lips are dry. NECK: Short, supple neck. No obvious jugular venous distention. LUNGS: [Clear to auscultation bilaterally. No wheezing appreciated]. HEART: [No chest wall abnormalities. Regular rate and rhythm with no murmurs appreciated]. ABDOMEN: Abdomen is and mildly rounded, appears less distended to me than the last time I saw him, soft, tender to palpation over the upper abdomen with some guarding less tender over the right lower quadrant and left lower quadrant area. Vital Signs Vital Signs Date Time Temp Pulse Resp B/P (MAP) Pulse Ox O2 Delivery O2 Flow Rate FiO2 08/24/18 06:00 141/67 08/24/18 06:00 97 Nasal Cannula 2.0 08/24/18 04:30 98.2 08/24/18 04:09 18 08/24/18 04:00 77 I&Os I&O- Last 24 Hours up to 6 AM 08/24/18 06:00 Intake Total 620 ml Output Total 50 ml Balance 570 ml Laboratory Data Labs 24H Laboratory Tests 2 08/23/18 11:33: Bedside Glucose (Misc Panel) 213H 08/23/18 16:50: Bedside Glucose (Misc Panel) 128H 08/23/18 19:59: Bedside Glucose (Misc Panel) 118H 08/24/18 05:37: Nucleated Red Blood Cells % (auto) 0.3H, Anion Gap 10, Glomerular Filtration Rate 15.1L, Blood Urea Nitrogen 31H, Creatinine 4.46H, Sodium Level 136, Potassium Level 3.7, Chloride Level 99, Carbon Dioxide Level 27, Calcium Level 8.1L, Magnesium Level 2.1, Prealbumin 11.7L CBC/BMP Laboratory Tests 08/24/18 05:37 Red Blood Count 3.16 L, Mean Corpuscular Volume 92.1, Mean Corpuscular Hemoglobin 29.4, Mean Corpuscular Hemoglobin Concent 32.0, Red Cell Distribution Width 15.0 H, Calcium Level 8.1 L Microbiology Microbiology 08/21/18 Stool Lactoferrin - Final, Complete 08/17/18 Clostridium difficile (PCR) - Final, Complete 08/14/18 Stool Occult Blood (MACRELO) - Final, Complete Imaging Studies CT abdomen and pelvis There is minimal diffuse ascites. There is marked peripancreatic edema and fluid. There are irregular fluid collection is seen extending into the region of the lesser sac. Some of this has a thin enhancing margin. There is an inferior component of this complex collection measuring 5 cm in greatest diameter. There is edema in the small bowel mesentery. There is mixed attenuation or inflammatory edema in the pericolic gutters. There is a small quantity of fluid in the pelvic reflections. There is a fluid collection extending through a right inguinal hernia into the scrotal sac on the right. This is visible on the previous study. The upper abdominal fluid collections are essentially unchanged in overall volume from the recent prior study of August 17, 2018. The sigmoid colon shows gaseous distension consistent with ileus. This is similar to the prior study as well. No obstructive lesion is seen. IMPRESSION: Severe morphologic changes of pancreatitis are again seen with mild ascites and multiple disbursed abdominal fluid collections. Gaseous distension of the sigmoid colon consistent with ileus. Bilateral pleural effusions and bilateral lower lobe atelectatic changes in the lungs. Impression Severe acute pancreatitis with moderate pancreatic edema, multiple fluid chuck ections. No pseudocyst. No evidence for necrosis Resident of explained to the patient on expect him to get better fast and still maintained at if he is able to tolerate some oral intake, he should continue to have some. I encouraged him to take more of the ensure. Try to do frequent feedings instead of 3 big meals. At this point he doesn't seem like he is able to nor should himself orally so I think we should go back to TPN. I spoke to Dr. borjas and he is going to get a midline catheter tomorrow for TPN administration. The other options will be tried to place a nasojejunal tube to try some post prandial feeding which is generally better tolerated. With regards to the fluid collections I don't think we should tap or drained of fluid as this may get those sterile collections infected which the patient will be worse off. The diarrhea is probably secondary to the irritation from the pancreatic inflammation as all the workup is negative save for some inflammatory cells and positive Hemoccult. Patient has had a previous antibiotic course and I advised to restart him on antibiotic for the pancreatitis unless there is evidence for a septic picture Plan / VTE VTE Prophylaxis Ordered?: Yes JUAN DAVID VANCE MD Aug 24, 2018 07:10
[2018-08-24] MEDS: ALBUTEROL SULFATE 2.5 MG/0.5 ML INH NEB SOLN NEB SCH ×4 (07:38→19:50)
[2018-08-24] MEDS: CLOPIDOGREL 75 MG TAB PO SCH (08:26)
[2018-08-24] MEDS: LEVEMIR (INSULIN DETEMIR) 1 UNITS/0.01ML SC SCH (08:26)
[2018-08-24] MEDS: LACTOBACILLUS ACIDOPHILUS CAP (BACID) PO SCH ×3 (08:26→18:00)
[2018-08-24] MEDS: HumaLOG INSULIN (NovoLOG) PER UNIT SC SCH ×4 (08:26→23:55)
[2018-08-24] MEDS: AMIODARONE 200 MG TAB (PACERONE) PO SCH (08:26)
[2018-08-24] MEDS: ASPIRIN 81 MG ENTERIC TAB PO SCH (08:27)
[2018-08-24] MEDS: CREON-24 CAPSULE PO SCH ×3 (08:27→18:00)
[2018-08-24] MEDS: CARVedilol 6.25 MG TAB PO SCH ×2 (08:27→20:40)
[2018-08-24] MEDS ORDERED: LIDOCAINE 2% MDV 20 ML VIAL As Ordered ONE (08:31)
--- NOTE | 2018-08-24 08:55 | CR ---
DATE OF CONSULTATION: 08/24/2018 REFERRING PROVIDER: Dr. Garces CHIEF COMPLAINT: Abdominal pain. HISTORY OF PRESENT ILLNESS: Dae is a 47-year-old gentleman, who was admitted around [facility] for acute Cardiac and respiratory distress. History of multiple comorbidities to include coronary artery disease, status post coronary artery bypass in 2000 with stenting. History of congestive heart failure status post biventricular implantable cardioverter, history of insulin dependent diabetes complicated with diabetic neuropathy, etc. We were called to evaluate him for an oral medicine regimen for persistent abdominal pain with diagnosis of acute pancreatitis. He appears comfortable upon entry. Received 0.3 mg of Dilaudid IV approximately 4 hours prior to my arrival. He states that this medicine does not change his pain level. He is rating lower abdominal pain and neuropathy of his feet as 9+. Complains of increased pain but no evidence or display of pain with light palpation of his lower abdomen and lightly touching his feet bilaterally. He was evaluated by Dr. Nolasco again yesterday during dialysis. He is recommending return to parenteral nutrition and he is scheduled to have a line placed today. Due to the acute nature of his pain, I would not feel comfortable making any oral pain medicine recommendations for chronic pancreatitis at this point. Should his condition stabilize, we would be glad to come see him again to make recommendations for chronic pain if necessary. I would continue with IV pain medications and consider using 0.6 mg strength of Dilaudid on an every 3-4 hour basis during this acute phase of his recovery. KENDELL
[2018-08-24] MEDS: ONDANSETRON 4MG/2ML VIAL (J2405) IV PRN ×2 (12:12→18:28)
[2018-08-24] MEDS ORDERED: FAT EMULSION IV 20% 500 ML IV SCH (18:00)
[2018-08-24] MEDS ORDERED: SODIUM CHLORIDE IV SCH ×10 (18:00)
[2018-08-24] MEDS ORDERED: SODIUM ACETATE IV SCH ×10 (18:00)
[2018-08-24] MEDS ORDERED: [UNRECOGNIZED DRUG - OTHER] IV SCH ×10 (18:00)
--- NOTE | 2018-08-24 20:09 | IPNPDOC ---
Text Note Date of Service The patient was seen on 08/24/18. NOTE The patient was seen and examined. Diarrhea improved. Denies any chest pain, pressure or discomfort. Denies any fever or chills. Reported abdominal pain poor po. Denies any nausea or vomiting. PHYSICAL EXAMINATION: GENERAL: The patient in no acute distress, comfortable. HEENT: Normocephalic, atraumatic. NECK: Supple. CARDIAC: Regular. S1, S2. 2/6 systolic murmur. ABDOMEN: Soft, difuse tenderness. Mild distension. Positive bowel sounds. PULMONARY: Bilateral clear. EXTREMITIES: 1+ edema. ASSESSMENT AND PLAN: This is a 47-year-old male patient with underlying medical history of coronary artery disease with coronary artery bypass graft (CABG) in 2000, PCI with multiple stents. Most recent cardiac catheterization two years ago, history of congestive heart failure (CHF) with reduced ejection fraction, has a biventricular pacemaker, pacemaker defibrillator, insulin-dependent diabetes, complicated with diabetic neuropathy, chronic obstructive pulmonary disease (COPD), gastroesophageal reflux disease (GERD), hypertension, dyslipidemia, benign prostatic hypertrophy (BPH), history of cerebrovascular accident (CVA), history of methicillin-resistant Staphylococcus aureus (MRSA), sternal osteomyelitis, degenerative joint disease was initially presented to the hospital with shortness of breath and chest tightness. On presentation, the patient was diagnosed with non-ST segment elevation myocardial infarction (NSTEMI). Hospital course complicated with intubation, nitroglycerine drip with also hyperglycemia require insulin drip, complicated with hypotension, shock liver, as well as pancreatitis and also persistent leukocytosis, bonita urea a nd acute on chronic renal failure. PROBLEMS: 1. Abdominal pain secondary to pancreatitis . Diet as tolerated. CT scan repeated. Surgery has been consulted. The patient has been on Dilaudid for pain medication. pain management consult. Pancreatic enzyme has been added given persistent diarrhea. Clostridium difficile work up has been negative. d/w Surgery, Imodium prn added. stool studies for diarrhea. TPN given poor po, Po feeding as needed 2. Abdominal truncal rash as per infection disease, Dr. Hector, likely secondary to hydralazine. The patient's hydralazine has been on hold. resolving 3. Acute on chronic renal failure, currently end-stage renal requiring dialysis. Further management as per nephrology. 4. Persistent leukocytosis improved, was treated with broad-spectrum anti biotics and antifungal including Diflucan, Zosyn and vancomycin. Sputum culture showed Streptococcus agalactiae. Infectious disease has been consulted. Presently, the patient is off of antibiotics. 5. Acute coronary syndrome with non-ST segment elevation myocardial infarction (NSTEMI). Continue aspirin and Plavix, Coreg, isosorbide dinitrate. Hydralazine has been on hold given possible reaction. Isosorbide dinitrate has been increased. Automatic implantable cardioverted defibrillator (AICD) has been turned back on. Appreciate Dr. Giordano's input. The patient will need cardiac catheterization, once the patient is stable. 6. Acute severe pancreatitis, nausea and vomiting, resolved. abd pain and diarrhea. Appreciate Dr. Nolasco's surgery consult. Diet as tolerated. TPN. repeat ct abd appreciated. further rec as per surgery. Pancreatic enzyme has been added, titrate up as needed. 7. Status post shock liver secondary to non-ST segment elevation myocardial infarction (NSTEMI) and congestive heart failure (CHF), currently improved. 8. Generalized weakness and deconditioning. Protein calorie malnutrition. Diet as tolerated. TPN, diet as tolerated 9. History of gastroesophageal reflux disease (GERD). Continue proton pump inhibitor (PPI). 10. Diabetes mellitus. Basal bolus insulin. Adjust as needed. 11. Acute on chronic anemia secondary to anemia of chronic disease. Also possible gastrointestinal (GI) bleed, status post 5 units packed red blood cells. Monitor complete blood count (CBC). Consulted GI given recent acute coronary syndrome. The patient is not a candidate for intervention at this time. Continue to monitor. 12. Protein calorie malnutrition. start total parenteral nutrition (TPN) Diet as tolerated. Dietary consult. Ensure clear. 13. Deep vein thrombosis (DVT) prophylaxis. teds and scd given concerns of GI bleed DISPOSITION: Likely will need short-term rehabilitation. Pain med as prescribed. clinical improvement. Poor alf prognosis VS,Kami, I+O VS, Kami, I+O Laboratory Tests 08/24/18 05:37 Red Blood Count 3.16 L, Mean Corpuscular Volume 92.1, Mean Corpuscular Hemogl obin 29.4, Mean Corpuscular Hemoglobin Concent 32.0, Red Cell Distribution Width 15.0 H, Calcium Level 8.1 L Vital Signs Date Time Temp Pulse Resp B/P (MAP) Pulse Ox O2 Delivery O2 Flow Rate FiO2 08/24/18 17:38 18 08/24/18 16:00 97.8 78 118/61 (80) 100 Nasal Cannula 2.0 I&O- Last 24 Hours up to 6 AM 08/24/18 06:00 Intake Total 620 ml Output Total 2050 ml Balance -1430 ml MASSIMO MAC MD Aug 24, 2018 20:09
[2018-08-25] VITALS (21 sets, daily range): BP systolic 135–153; BP diastolic 62–73; O2SAT 95–99
[2018-08-25] MEDS: HYDROMORPHONE HCL 0.5 MG/ 0.5 ML SYRINGE (J1170 PER 1) IV PRN ×6 (03:09→23:57)
[2018-08-25 05:52] LABS: HEMATOCRIT 30.6 % (42.0-52.0); HEMOGLOBIN 9.6 g/dl (13.5-17.5); MEAN CORPUSCULAR HGB CONC 31.4 g/dl (32.0-36.5); MEAN CORPUSCULAR VOLUME 95.6 fl (80.0-96.0); PLATELET COUNT, AUTOMATED 492 10^3/uL (150-450); WHITE BLOOD COUNT 16.9 10^3/uL (4.0-10.0)
[2018-08-25] MEDS: CLOPIDOGREL 75 MG TAB PO SCH (06:13)
[2018-08-25] MEDS: ASPIRIN 81 MG ENTERIC TAB PO SCH (06:14)
[2018-08-25] MEDS: ISOSORBIDE DIN (ISORDIL) 10 MG TAB PO SCH (06:14)
[2018-08-25] MEDS: SLF 3 ML SYR IV SCH ×3 (06:15→20:48)
[2018-08-25 06:21] LABS: CALCIUM LEVEL 8.2 MG/DL (8.5-10.1); CREATININE FOR GFR 5.86 MG/DL (0.70-1.30); MAGNESIUM LEVEL 2.2 MG/DL (1.8-2.4); POTASSIUM SERUM 4.4 MEQ/L (3.5-5.1)
[2018-08-25] MEDS: HumaLOG INSULIN (NovoLOG) PER UNIT SC SCH ×4 (06:26→23:56)
[2018-08-25] MEDS: LACTOBACILLUS ACIDOPHILUS CAP (BACID) PO SCH ×3 (08:00→17:28)
[2018-08-25] MEDS: ALBUTEROL SULFATE 2.5 MG/0.5 ML INH NEB SOLN NEB SCH ×4 (08:00→20:00)
[2018-08-25] MEDS: CREON-24 CAPSULE PO SCH ×3 (08:00→17:28)
[2018-08-25] MEDS: LEVEMIR (INSULIN DETEMIR) 1 UNITS/0.01ML SC SCH (09:04)
[2018-08-25] MEDS: CARVedilol 6.25 MG TAB PO SCH ×2 (09:04→20:48)
[2018-08-25] MEDS: AMIODARONE 200 MG TAB (PACERONE) PO SCH (09:05)
--- NOTE | 2018-08-25 11:21 | IPN ---
DATE OF SERVICE: 08/24/2018 SUBJECTIVE: The patient was seen and examined at the bedside today morning. He just came back after getting a tunneled PICC line placed. He got hemodialysis done yesterday, 2 liters of fluid was removed. OBJECTIVE: VITAL SIGNS: Temperature is 97 degrees Fahrenheit, blood pressure 106/53, pulse is 79, respiratory rate of 18, saturating 95% on nasal cannula at 2 liters. INTAKE/OUTPUT: Patient is anuric at this point. Urine output recorded as 0 mL. Ultrafiltration with hemodialysis was 2 liters yesterday. Weight on the bed scale is 92.7 kg. PHYSICAL EXAMINATION: GENERAL: The patient is awake, alert, oriented times three, laying in bed, in mildly painful distress. HEAD AND NECK EXAM: Extraocular muscles intact. Pupils equally round and reactive to light. Mucous membranes are moist. Neck is supple. He has a right internal jugular (IJ) tunneled hemodialysis catheter and left IJ tunneled PICC line. CARDIOVASCULAR: S1, S2. Regular rate. No edema of the bilateral lower extremities. Left sided automatic implantable cardioverter defibrillator (AICD) was noted. RESPIRATORY: Chest is clear to auscultation bilaterally. Bilateral equal air entry. No rales or rhonchi. ABDOMEN: Soft. Mildly tender to deep palpation all over the abdomen. MUSCULOSKELETAL: No clubbing or cyanosis. Pulses are 2+. 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 Power is 5/5 in all extremities. LAB REVIEW: CBC showed a WBC of 14.5, hemoglobin 9.3, platelets 473. BMP showed sodium 136, potassium 3.7, chloride 99, bicarbonate 27, BUN 31, creatinine 4.4, calcium 8.1, magnesium is 2.1. CURRENT INPATIENT MEDICATIONS: Patient's medications were all reviewed by me. The patient is going to start total parenteral nutrition now. No other change in the medications today as compared with yesterday. ASSESSMENT AND PLAN: 1. Acute oliguric renal failure. There are no signs of renal recovery at this point. He is still hemodialysis dependent. He was dialyzed yesterday. Next hemodialysis session will be tomorrow. 2. Anemia secondary to end stage renal disease. Hemoglobin is 9.3, which is slightly below today as compared with yesterday. Continue current dose of Aranesp with hemodialysis. Transfuse as needed for hemoglobin below 8. 3. Acute pancreatitis. The patient still has severe acute pancreatitis changes on the CAT scan. He had multiple fluid collections on the CAT scan yesterday. He is not able to tolerate the diet well. He is going to start total parenteral nutrition (TPN) through the left IJ tunneled PICC line. The rest of the management is as per primary team and surgical team. 4. Coronary artery disease and non-ST elevation myocardial infarction ([place]). NSTEMI has resolved now. Continue Coreg, hydralazine, and isosorbide.
[2018-08-25] MEDS ORDERED: HEPARIN 1,000 UNITS/ML 10ML VIAL (FOR RADIOLOGY& DIALYSIS ONLY) XX ONE (11:30)
[2018-08-25] MEDS ORDERED: HEPARIN 1,000 UNITS/ML 10ML VIAL (FOR RADIOLOGY& DIALYSIS ONLY) IV ONE (11:30)
[2018-08-25] MEDS: ISOSORBIDE DIN. (ISORDIL) 30 MG TAB PO SCH ×2 (12:00→17:00)
[2018-08-25] MEDS ORDERED: SODIUM ACETATE IV SCH ×8 (18:00)
[2018-08-25] MEDS ORDERED: FAT EMULSION IV 20% 500 ML IV SCH (18:00)
[2018-08-25] MEDS ORDERED: [UNRECOGNIZED DRUG - OTHER] IV SCH ×8 (18:00)
[2018-08-25] MEDS ORDERED: HumaLOG INSULIN (NovoLOG) PER UNIT SC SCH (18:00)
[2018-08-25] MEDS ORDERED: SODIUM CHLORIDE IV SCH ×8 (18:00)
--- NOTE | 2018-08-25 20:06 | IPNPDOC ---
Text Note Date of Service The patient was seen on 08/25/18. NOTE The patient was seen and examined. no BM for 24 hr. Denies any chest pain, pressure or discomfort. Denies any fever or chills. Reported abdominal pain poor po continued. Denies any nausea or vomiting. PHYSICAL EXAMINATION: GENERAL: The patient in no acute distress, comfortable. HEENT: Normocephalic, atraumatic. NECK: Supple. CARDIAC: Regular. S1, S2. 2/6 systolic murmur. ABDOMEN: Soft, difuse tenderness. Mild distension. Positive bowel sounds. PULMONARY: Bilateral clear. EXTREMITIES: 1+ edema. ASSESSMENT AND PLAN: This is a 47-year-old male patient with underlying medical history of coronary artery disease with coronary artery bypass graft (CABG) in 2000, PCI with multiple stents. Most recent cardiac catheterization two years ago, history of congestive heart failure (CHF) with reduced ejection fraction, has a biventricular pacemaker, pacemaker defibrillator, insulin-dependent diabetes, complicated with diabetic neuropathy, chronic obstructive pulmonary disease (COPD), gastroesophageal reflux disease (GERD), hypertension, dyslipidemia, benign prostatic hypertrophy (BPH), history of cerebrovascular accident (CVA), history of methicillin-resistant Staphylococcus aureus (MRSA), sternal osteomyelitis, degenerative joint disease was initially presented to the hospital with shortness of breath and chest tightness. On presentation, the patient was diagnosed with non-ST segment elevation myocardial infarction (NSTEMI). Hospital course complicated with intubation, nitroglycerine drip with also hyperglycemia require insulin drip, complicated with hypotension, shock liver, as well as pancreatitis and also persistent leukocytosis, bonita urea and acute on chronic renal failure. PROBLEMS: 1. Abdominal pain secondary to pancreatitis . Diet as tolerated. CT scan repeated. Surgery has been consulted. The patient has been on Dilaudid for pain medication. pain management consult. Pancreatic enzyme has been added given persistent diarrhea. Clostridium difficile work up has been negative. d/w Surgery, Imodium prn added. stool studies for diarrhea. TPN given poor po, Po feeding as needed 2. Abdominal truncal rash as per infection disease, Dr. Hector, likely secondary to hydralazine. The patient's hydralazine has been on hold. resolving 3. Acute on chronic renal failure, currently end-stage renal requiring dialysis. Further management as per nephrology. 4. Persistent leukocytosis improved, was treated with broad-spectrum antibiotics and antifungal including Diflucan, Zosyn and vancomycin. Sputum culture showed Streptococcus agalactiae. Infectious disease has been consulted. Presently, the patient is off of antibiotics. 5. Acute coronary syndrome with non-ST segment elevation myocardial infarction (NSTEMI). Continue aspirin and Plavix, Coreg, isosorbide dinitrate. Hydralazine has been on hold given possible reaction. Isosorbide dinitrate has been increased. Automatic implantable cardioverted defibrillator (AICD) has been turned back on. Appreciate Dr. Giordano's input. The patient will need cardiac catheterization, once the patient is stable. 6. Acute severe pancreatitis, nausea and vomiting, resolved. abd pain and diarrhea. Appreciate Dr. Nolasco's surgery consult. Diet as tolerated. TPN. repeat ct abd appreciated. further rec as per surgery. Pancreatic enzyme has been added, titrate up as needed. 7. Status post shock liver secondary to non-ST segment elevation myocardial infarction (NSTEMI) and congestive heart failure (CHF), currently improved. 8. Generalized weakness and deconditioning. Protein calorie malnutrition. Diet as tolerated. TPN, diet as tolerated 9. History of gastroesophageal reflux disease (GERD). Continue proton pump inhibitor (PPI). 10. Diabetes mellitus. Basal bolus insulin. Adjust as needed. 11. Acute on chronic anemia secondary to anemia of chronic disease. Also possible gastrointestinal (GI) bleed, status post 5 units packed red blood cells. Monitor complete blood count (CBC). Consulted GI given recent acute coronary syndrome. The patient is not a candidate for intervention at this time. Continue to monitor. 12. Protein calorie malnutrition. start total parenteral nutrition (TPN) Diet as tolerated. Dietary consult. Ensure clear. 13. Deep vein thrombosis (DVT) prophylaxis. teds and scd given concerns of GI bleed DISPOSITION: Likely will need short-term rehabilitation. Pain med as prescribed. clinical improvement. Poor half-way prognosis. refusing PT on multiple occasions. will reorder PT VS,Fishbone, I+O VS, Fishbone, I+O Laboratory Tests 08/25/18 05:18 Red Blood Count 3.20 L, Mean Corpuscular Volume 95.6, Mean Corpuscular Hemoglobin 30.0, Mean Corpuscular Hemoglobin Concent 31.4 L, Red Cell Distribution Width 15.1 H, Calcium Level 8.2 L Vital Signs Date Time Temp Pulse Resp B/P (MAP) Pulse Ox O2 Delivery O2 Flow Rate FiO2 08/25/18 19:40 2.0 08/25/18 19:00 98 Nasal Cannula 08/25/18 18:47 18 08/25/18 16:00 98.0 71 144/71 (95) I&O- Last 24 Hours up to 6 AM 08/25/18 06:00 Intake Total 1650 ml Output Total 0 ml Balance 1650 ml MASSIMO MAC MD Aug 25, 2018 20:06
[2018-08-26] VITALS (9 sets, daily range): BP systolic 137–154; BP diastolic 64–79; O2SAT 94–99
[2018-08-26] MEDS: HYDROMORPHONE HCL 0.5 MG/ 0.5 ML SYRINGE (J1170 PER 1) IV PRN ×5 (04:10→21:50)
[2018-08-26] MEDS: SLF 3 ML SYR IV SCH ×3 (05:56→22:00)
[2018-08-26] MEDS: HumaLOG INSULIN (NovoLOG) PER UNIT SC SCH ×3 (05:56→18:07)
[2018-08-26 06:07] LABS: HEMATOCRIT 29.1 % (42.0-52.0); HEMOGLOBIN 9.1 g/dl (13.5-17.5); MEAN CORPUSCULAR HEMOGLOBIN 29.4 pg (27.0-33.0); MEAN CORPUSCULAR HGB CONC 31.3 g/dl (32.0-36.5); MEAN CORPUSCULAR VOLUME 93.9 fl (80.0-96.0); PLATELET COUNT, AUTOMATED 467 10^3/uL (150-450); WHITE BLOOD COUNT 18.2 10^3/uL (4.0-10.0)
[2018-08-26] MEDS: ISOSORBIDE DIN. (ISORDIL) 30 MG TAB PO SCH ×3 (06:32→18:06)
[2018-08-26 06:33] LABS: CREATININE FOR GFR 4.03 MG/DL (0.70-1.30); GLOMERULAR FILTRATION RATE 16.9 (>60); MAGNESIUM LEVEL 1.9 MG/DL (1.8-2.4); POTASSIUM SERUM 3.8 MEQ/L (3.5-5.1)
[2018-08-26] MEDS: ALBUTEROL SULFATE 2.5 MG/0.5 ML INH NEB SOLN NEB SCH ×4 (08:00→20:00)
[2018-08-26 08:34] LABS: C REACTIVE PROTEIN QUANTITATIV 9.18 MG/DL (0.00-0.30)
[2018-08-26] MEDS: CREON-24 CAPSULE PO SCH ×3 (08:50→18:06)
[2018-08-26] MEDS: CLOPIDOGREL 75 MG TAB PO SCH (08:51)
[2018-08-26] MEDS: CARVedilol 6.25 MG TAB PO SCH ×2 (08:51→21:45)
[2018-08-26] MEDS: ASPIRIN 81 MG ENTERIC TAB PO SCH (08:51)
[2018-08-26] MEDS: AMIODARONE 200 MG TAB (PACERONE) PO SCH (08:51)
[2018-08-26] MEDS: LACTOBACILLUS ACIDOPHILUS CAP (BACID) PO SCH ×3 (08:51→18:06)
--- NOTE | 2018-08-26 13:17 | IPN ---
DATE OF SERVICE: 08/25/2018 SUBJECTIVE: The patient was seen and examined at the bedside today morning. He is afebrile and hemodynamically stable. He was started on total parenteral nutrition (TPN) yesterday because of persistent pain in abdomen. He is still able to take some liquids. He reports that he made some urine yesterday. He is going to go for hemodialysis today in the afternoon. OBJECTIVE: VITAL SIGNS: Temperature is 97.3 degrees Fahrenheit, blood pressure 138/70, pulse is 75, respiratory rate of 18, saturating 96% on nasal cannula at 2 liters. INTAKE/OUTPUT: Urine output recorded as 225 mL. Weight on the bed scale is 92.2 kg. PHYSICAL EXAMINATION: GENERAL: The patient is awake, alert, oriented times three, laying in bed, in no apparent distress. HEAD AND NECK EXAM: Extraocular muscles intact. Pupils equally round and reactive to light. Mucous membranes are moist. Neck is supple. Right internal jugular (IJ) tunneled hemodialysis catheter and left IJ tunneled PICC line. CARDIOVASCULAR: S1, S2. Regular rate. No edema of the bilateral lower extremities. Left sided automatic implantable cardioverter defibrillator (AICD) was noted. RESPIRATORY: Chest is clear to auscultation bilaterally. Bilateral equal air entry. No rales or rhonchi. ABDOMEN: Soft. Mildly tender to deep palpation all over the abdomen. MUSCULOSKELETAL: No clubbing or cyanosis. Pulses are 2+. CENTRAL NERVOUS SYSTEM (WAGE HAND): No focal deficit. Power is 5/5 in all extremities. LAB REVIEW: CBC showed a WBC of 16.9, hemoglobin 9.6, platelets 492. BMP showed sodium 137, potassium 4.4, chloride 101, bicarbonate 26, BUN 41, creatinine 5.8, calcium 8.2, magnesium is 2.2. CURRENT INPATIENT MEDICATIONS: Patient's medications were all reviewed by me. He continues to be on TPN. There is no other change in the medications today as compared with yesterday. ASSESSMENT AND PLAN: 1. Acute oliguric renal failure. The patient made about 225 mL of urine. It might be an accumulated urine for the last 2-3 days. I still do not see any signs of improvement of renal function. The patient is still dialysis dependent. He will be dialyzed today and ultrafiltration goal will be around 2.5 to 3 liters because patient is currently getting TPN. 2. Anemia secondary to end stage renal disease. Hemoglobin is 9.6, which is improving. Continue Aranesp with hemodialysis. 3. Acute pancreatitis. The patient is on TPN at this point. He still has a moderate amount of pain being optimized with Dilaudid. The patient is able to tolerate some liquids. 4. Coronary artery disease and non-ST elevation myocardial infarction ([place]) and ischemic cardiomyopathy. NSTEMI has resolved now. Continue Coreg, hydralazine, and isosorbide.
--- NOTE | 2018-08-26 14:24 | IPNPDOC ---
Text Note Date of Service The patient was seen on 08/26/18. NOTE The patient was seen and examined. diarrhea resolved. Denies any chest pain, pressure or discomfort. Denies any fever or chills. Reported abdominal pain poor po continued. Denies any nausea or vomiting. PHYSICAL EXAMINATION: GENERAL: The patient in no acute distress, comfortable. HEENT: Normocephalic, atraumatic. NECK: Supple. CARDIAC: Regular. S1, S2. 2/6 systolic murmur. ABDOMEN: Soft, difuse tenderness. Mild distension. Positive bowel sounds. PULMONARY: Bilateral clear. EXTREMITIES: 1+ edema. ASSESSMENT AND PLAN: This is a 47-year-old male patient with underlying medical history of coronary artery disease with coronary artery bypass graft (CABG) in 2000, PCI with multiple stents. Most recent cardiac catheterization two years ago, history of congestive heart failure (CHF) with reduced ejection fraction, has a biventricular pacemaker defibrillator, insulin-dependent diabetes, complicated with diabetic neuropathy, chronic obstructive pulmonary disease (COPD), gastroesophageal reflux disease (GERD), hypertension, dyslipidemia, benign prostatic hypertrophy (BPH), history of cerebrovascular accident (CVA), history of methicillin-resistant Staphylococcus aureus (MRSA), sternal osteomyelitis, degenerative joint disease was initially presented to the hospital with shortness of breath and chest tightness. On presentation, the patient was diagnosed with non-ST segment elevation myocardial infarction (NSTEMI). Hospital course complicated with intubation, nitroglycerine drip with also hyperglycemia require insulin drip, complicated with hypotension, shock liver, as well as pancreatitis and also persistent leukocytosis, bonita urea and acute on chronic renal failure. PROBLEMS: 1. Abdominal pain secondary to pancreatitis . Diet as tolerated. CT scan repeated. Surgery has been consulted. The patient has been on Dilaudid for pain medication. pain management consult. Pancreatic enzyme has been added given persistent diarrhea. Clostridium difficile work up has been negative. d/w Surgery, Imodium prn added. stool studies for diarrhea. TPN given poor po, Po feeding as needed 2. Abdominal truncal rash as per infection disease, Dr. Hector, likely secondary to hydralazine. The patient's hydralazine has been on hold. resolving 3. Acute on chronic renal failure, currently end-stage renal requiring dialysis. Further management as per nephrology. 4. Persistent leukocytosis, was treated with broad-spectrum antibiotics and antifungal including Diflucan, Zosyn and vancomycin. Sputum culture showed Streptococcus agalactiae. Infectious disease has been consulted. Presently, the patient is off of antibiotics. CRP improved. 5. Acute coronary syndrome with non-ST segment elevation myocardial infarction (NSTEMI). Continue aspirin and Plavix, Coreg, isosorbide dinitrate. Hydralazine has been on hold given possible reaction. Isosorbide dinitrate has been increased. Automatic implantable cardioverted defibrillator (AICD) has been turned back on. Appreciate Dr. Giordano's input. The patient will need cardiac catheterization, once the patient is stable. 6. Acute severe pancreatitis, nausea and vomiting, resolved. abd pain and diarrhea. Appreciate Dr. Nolasco's surgery consult. Diet as tolerated. TPN. repeat ct abd appreciated. further rec as per surgery. Pancreatic enzyme has been added, titrate up as needed. 7. Status post shock liver secondary to non-ST segment elevation myocardial infarction (NSTEMI) and congestive heart failure (CHF), currently improved. 8. Generalized weakness and deconditioning. Protein calorie malnutrition. Diet as tolerated. TPN, diet as tolerated 9. History of gastroesophageal reflux disease (GERD). Continue proton pump inhibitor (PPI). 10. Diabetes mellitus. Basal bolus insulin. Adjust as needed. 11. Acute on chronic anemia secondary to anemia of chronic disease. Also possible gastrointestinal (GI) bleed, status post 5 units packed red blood cells. Monitor complete blood count (CBC). Consulted GI given recent acute coronary syndrome. The patient is not a candidate for intervention at this time. Continue to monitor. 12. Protein calorie malnutrition. start total parenteral nutrition (TPN) Diet as tolerated. Dietary consult. Ensure clear. 13. Deep vein thrombosis (DVT) prophylaxis. teds and scd given concerns of GI bleed DISPOSITION: Likely will need short-term rehabilitation. Pain med as prescribed. clinical improvement. Poor usp prognosis. refusing PT on multiple occasions. will reorder PT VS,Fishbone, I+O VS, Fishbone, I+O Laboratory Tests 08/26/18 04:36 Red Blood Count 3.10 L, Mean Corpuscular Volume 93.9, Mean Corpuscular Hemoglobin 29.4, Mean Corpuscular Hemoglobin Concent 31.3 L, Red Cell Distribution Width 14.9 H, Calcium Level 8.0 L Vital Signs Date Time Temp Pulse Resp B/P (MAP) Pulse Ox O2 Delivery O2 Flow Rate FiO2 08/26/18 13:36 16 08/26/18 12:07 137/64 08/26/18 12:00 94 Nasal Cannula 2.0 08/26/18 12:00 98.5 66 I&O- Last 24 Hours up to 6 AM 08/26/18 06:00 Intake Total 2130 ml Output Total 3425 ml Balance -1295 ml MASSIMO MAC MD Aug 26, 2018 14:24
[2018-08-26] MEDS ORDERED: FAT EMULSION IV 20% 500 ML IV SCH (18:00)
[2018-08-26] MEDS ORDERED: SODIUM ACETATE IV SCH ×8 (18:00)
[2018-08-26] MEDS ORDERED: SODIUM CHLORIDE IV SCH ×8 (18:00)
[2018-08-26] MEDS ORDERED: [UNRECOGNIZED DRUG - OTHER] IV SCH ×8 (18:00)
[2018-08-27] VITALS (21 sets, daily range): BP systolic 134–159; BP diastolic 64–90; O2SAT 92–100
[2018-08-27] MEDS: HumaLOG INSULIN (NovoLOG) PER UNIT SC SCH ×4 (00:59→17:56)
[2018-08-27] MEDS: HYDROMORPHONE HCL 0.5 MG/ 0.5 ML SYRINGE (J1170 PER 1) IV PRN ×5 (01:03→20:07)
[2018-08-27] MEDS: ALBUTEROL SULFATE 2.5 MG/0.5 ML INH NEB SOLN NEB SCH ×4 (05:23→20:46)
[2018-08-27] MEDS: NITROGLYCERIN 0.4 MG SUBL TABLET SL PRN ×3 (05:50→06:25)
[2018-08-27 05:54] LABS: ABG BASE EXCESS -5.6 (-2.0-2.0); ABG O2 SATURATION 94.2 % (95.0-99.0); ABG PARTIAL PRESSURE CO2 45.2 mmHg (35.0-45.0); ABG STANDARD HCO3 19.8 MEQ/L (22.0-26.0); ABG TOTAL CO2 22.3 MEQ/L (22.0-29.0); ABG pH (ARTERIAL) 7.284 UNITS (7.350-7.450)
[2018-08-27] MEDS ORDERED: methylPREDNISolone INJ 125 MG/2 ML VIAL (J2930) IV SCH (06:00)
[2018-08-27] MEDS ORDERED: methylPREDNISolone INJ 40 MG/1 ML VIAL (J2920) IV SCH (06:00)
[2018-08-27] MEDS: ALBUTEROL SULFATE 2.5 MG/0.5 ML INH NEB SOLN NEB PRN (06:16)
[2018-08-27 06:18] LABS: HEMATOCRIT 20.6 % (42.0-52.0); MEAN CORPUSCULAR HEMOGLOBIN 29.6 pg (27.0-33.0); MEAN CORPUSCULAR HGB CONC 30.6 g/dl (32.0-36.5); MEAN CORPUSCULAR VOLUME 96.7 fl (80.0-96.0); PLATELET COUNT, AUTOMATED 336 10^3/uL (150-450); RED BLOOD COUNT 2.13 10^6/uL (4.30-6.10); WHITE BLOOD COUNT 18.5 10^3/uL (4.0-10.0)
[2018-08-27 06:26] LABS: HEMOGLOBIN 6.3 g/dl (13.5-17.5)
--- NOTE | 2018-08-27 06:44 | IPNPDOC ---
Text Note Date of Service The patient was seen on 08/27/18. NOTE called by nurse att 5:30 am for pt with worsening respiratory status VS HR 118 BP 151/103 RR 30's pt was noted to be saturating in lows 80s. placed on NR mask pt complains of chest pain and difficulty breathing EKG: tachycardia with underlying BBB and paced beats Trop sent, Hb 6.3 ( down from 9) , pt states last stool 2 days ago was bloody. will transfuse 2 units PRBC stat, stool for occult blood, review of chart shows pt was transfused 5 units PRBC during this admission ABG on 2 L: 7.28/45/80/22/94. 1. possibly decompensation of COPD: pt is usually alkalotic with PH: prior ABG's shows mild respiratory alkalosis with hypocarbia , Hco3 wnl. though Pco2 is normalized , this does not appear to be the patients normal, there may be a mild underlying respiratory acidosis. there are minimal metabolic derrangements of the metabolic profile. Placed on solumedrol 40 q12h, standing nebs and BIPAP with repeat ABG 2. Anemia Hb 6.3. pt states last BM was bloody. will send stool occult blood, transfuse 2 units PRBC 3. will r/o ACS by recycling trops and EKG 4. PE unlikely with gas : VQ scan ordered. pt is unlikely to be a candidate for AC with what appears to be active bleed and requiring transfusions X 5 during this admission . VS,Fishbone, I+O VS, Fishbone, I+O Laboratory Tests 08/27/18 05:50 Red Blood Count 2.13 L, Mean Corpuscular Volume 96.7 H, Mean Corpuscular Hemoglobin 29.6, Mean Corpuscular Hemoglobin Concent 30.6 L, Red Cell Distribution Width 14.9 H Vital Signs Date Time Temp Pulse Resp B/P (MAP) Pulse Ox O2 Delivery O2 Flow Rate FiO2 08/27/18 06:17 60 08/27/18 06:17 93 BIPAP/CPAP 08/27/18 04:17 84 22 2.0 08/27/18 04:00 96.7 159/86 (110) I&O- Last 24 Hours up to 6 AM 08/27/18 06:00 Intake Total 300 ml Output Total 0 ml Balance 300 ml MONDAY,ELLIOT BLACKWELL Aug 27, 2018 06:44
[2018-08-27 06:57] LABS: CALCIUM LEVEL 8.5 MG/DL (8.5-10.1); CREATININE FOR GFR 4.95 MG/DL (0.70-1.30); GLOMERULAR FILTRATION RATE 13.4 (>60); MAGNESIUM LEVEL 1.9 MG/DL (1.8-2.4); POTASSIUM SERUM 4.9 MEQ/L (3.5-5.1); PREALBUMIN 16.2 MG/DL (20.0-40.0)
[2018-08-27] MEDS: TIOTROPIUM INHALER/CAPSULE (SPIRIVA) INH SCH (08:00)
[2018-08-27] MEDS: CREON-24 CAPSULE PO SCH ×3 (08:00→18:00)
[2018-08-27] MEDS: AMIODARONE 200 MG TAB (PACERONE) PO SCH (08:34)
[2018-08-27] MEDS: ISOSORBIDE DIN. (ISORDIL) 30 MG TAB PO SCH ×3 (08:35→17:55)
[2018-08-27] MEDS: CLOPIDOGREL 75 MG TAB PO SCH (08:36)
[2018-08-27] MEDS: CARVedilol 6.25 MG TAB PO SCH ×2 (08:36→20:06)
[2018-08-27] MEDS: LACTOBACILLUS ACIDOPHILUS CAP (BACID) PO SCH ×3 (08:36→17:54)
[2018-08-27] MEDS: SLF 3 ML SYR IV SCH ×2 (08:37→14:00)
[2018-08-27] MEDS: SYMBICORT 160/4.5MCG INHALER 6GM INH SCH ×2 (09:00→20:46)
[2018-08-27 09:22] LABS: C REACTIVE PROTEIN QUANTITATIV 9.49 MG/DL (0.00-0.30)
[2018-08-27 11:08] LABS: ABG BASE EXCESS -2.9 (-2.0-2.0); ABG HCO3 21.9 MEQ/L (22.0-26.0); ABG O2 SATURATION 93.2 % (95.0-99.0); ABG PARTIAL PRESSURE O2 67.8 mmHg (75.0-100.0); ABG STANDARD HCO3 21.9 MEQ/L (22.0-26.0); ABG pH (ARTERIAL) 7.378 UNITS (7.350-7.450)
[2018-08-27 12:44] LABS: MB/CK RELATIVE INDEX 15.5 (< OR =4); TROPONIN I 0.1 NG/ML (< 0.10)
--- NOTE | 2018-08-27 14:14 | CCN ---
DATE: 08/27/2018 We were asked by Abdirashid to emergently evaluate this patient for emergent NIMV usage. Upon examination, he was receiving noninvasive mechanical ventilation and appeared to be comfortable. The patient has had quite a lengthy and complicated hospital stay, initially admitted on 07/31/2018 to the intensive care unit (ICU) for [id number] myocardial infarction (NSTEMI) and respiratory distress and hypotension. The patient initially was intubated and on pressor therapy in the ICU. During the stay, he was found also to have pancreatitis with development o renal failure and shock liver. He was also found to have an ejection fraction of 10 to 15%. He supposedly has been having diarrhea and has been hemoccult positive with bright red blood per rectum. Unfortunately, the patient carries a very heavy cardiac history, he has coronary artery disease. He is status post coronary artery bypass graft (CABG) in 2000 and PCI with stent. He apparently had a catheterization in 2015. He also carries a history of congestive heart failure (CHF). He is also status post biventricular ICD placement. He also has a history of diabetes, gastroesophageal reflux disease (GERD), history of CVA, history of methicillin resistant Staphylococcus aureus (MRSA) with sternal osteomyelitis, history of diabetic neuropathy and degenerative joint disease. The patient is also a heavy smoker. He apparently quit smoking on the day of his admission, prior to this he was smoking two packs a day since he was 14. He denies any current or past alcohol or drug use. Apparently overnight, early this morning, the patient was noting difficulty breathing, having some chest pain. Per the notes, there was an EKG change that showed tachycardia with paced beats and bundle branch block. He was given 2 units of packed red blood cells for a low hemoglobin. There was an ABG that was performed that showed a pH of 7.28, PCO2 of 45.2, and a PO2 of 80. His bicarbonate this morning was 21, this does point to more of a metabolic acidemia rather than hypercapnia. The patient was apparently placed on noninvasive mechanical ventilation. This morning, he reports that his breathing is a bit improved. We did take off his noninvasive and put him on 2 liters nasal cannula, which he seemed to be tolerating well with oxygen saturations above 90%. He had no febrile events reported overnight. He did complain of ongoing generalized abdominal discomfort, but otherwise was not in any acute distress. PHYSICAL EXAMINATION: VITAL SIGNS: Temperature 96.8, pulse 110, respiratory rate of 22, blood pressure 141/82. He was 92% on noninvasive at 60% FiO2, on 2 liters nasal cannula he is maintaining saturations above 90%. HEENT: Moist mucous membranes. Nares are patent bilaterally. Extraocular muscles intact. Normocephalic, atraumatic. GENERAL: This is a 47-year-old male who appears older than his stated age. He did look comfortable. He was not using accessory muscles of respiration. He was in no acute distress. CARDIAC: Normal S1, S2. No murmurs, rubs or gallops. RESPIRATORY: The patient does have diffuse inspiratory wheezing throughout. Could not appreciate any rales, rhonchi. There are good breath sounds throughout. Good air expansion and effort bilaterally. Normal I:E. ABDOMEN: Abdominal sounds are minimally hypoactive throughout. There is diffuse tenderness to light palpation throughout the abdomen. There is no rebound. There is no guarding. There is no hepatosplenomegaly. There appears to be no distention. Abdomen is soft. EXTREMITIES: There is no edema, cyanosis, or mottling appreciated. LABORATORIES: Sodium of 135, potassium 4.9, chloride 101, bicarbonate 21, BUN and creatinine of 47 and 4.95, respectively. Fasting glucose 242. Prealbumin noted to be 16.2, magnesium of 1.9, troponin of 0.05. White blood cell count of 18.5, hemoglobin and hematocrit is 9.6 and 20.6, respectively. Platelet count of 336. Blood gas noted from this morning shows a pH of 7.28, PCO2 of 45.2, and a PO2 of 80. IMAGING: We reviewed his CXR as well as the report. Chest x-ray from this morning shows evidence of cephalization, pulmonary edema and cardiomegaly. The patient does have evidence of dual lead pacemaker and double lumen catheter spilling into SVC and a tunneled catheter extending to SVC. He also demonstrates scattered atelectasis. Left hemidiaphragm is obscured by opacification. ASSESSMENT: Mr. Shipman is a 47-year-old male with a significant past medical history that includes significant cardiac history, status post coronary artery bypass graft (CABG) with multiple stents and history of CVA, congestive heart failure (CHF) with ejection fraction of 10 to 15%, status post biventricular ICD placement, diabetes mellitus. During his lengthy stay in the hospital, he has unfortunately been diagnosed with pancreatitis and renal failure and shock liver. Overnight, the patient apparently had difficulty breathing associated with chest pain. Critical care was asked to evaluate. The patient was moved to intensive care unit (ICU). His ABG performed at that time demonstrated more of a metabolic acidemia, which likely lead to his tachypnea and respiratory distress. PLAN: 1. Metabolic acidemia leading to tachypnea. As stated above, the patient's blood gas from this morning when he was having respiratory distress showed a pH of 7.28 with a PCO2 of 45.2 and a PO2 of 80 with a bicarbonate from this morning of 21. This likely represents more of a metabolic component to his respiratory issues versus hypercapnic response. Noninvasive ventilation was started this morning. Upon extensive review of the patient's records, it seems that he likely has some component of chronic obstructive pulmonary disease (COPD), especially given his lengthy and heavy smoking history, however, upon review of his chest x-ray, we can see no hyperinflation of his lungs, we have reviewed past chest CT, which did not show any evidence of emphysema. The patient is either not able to or will not compensate for his acidemia. Of note, the patient is on significant amounts of narcotics for his abdominal pain due to pancreatis. This points to more of a won't breathe cause for his respiratory distress. We have stopped the patient's steroids, unsure if the patient truly has chronic obstructive pulmonary disease (COPD), as he has not had formal spirometry or pulmonary function tests in the past. We will begin the patient on Symbicort and Spiriva and repeat ABG at 11:00 a.m. He is to continue with his bronchodilator. 2. Wheezing. This could be secondary to bronchospasms versus cardiac wheezing, as the patient has an extensive cardiac past. As mentioned above, we will continue the patient on his bronchodilator. We will also add on Symbicort and Spiriva, he is currently on nasal cannula and seems to be tolerating this well. 3. History of significant coronary artery disease. The patient is currently on Plavix, hydroxyzine and isosorbide. [id number] myocardial infarction (NSTEMI) has resolved. 4. EKG from this morning did not demonstrate recurrence of cardiac ischemia. Would advise to continue to monitor. 5. End stage renal disease. Nephrology is following. The patient is oliguric. He is dialysis dependent. It appears that nephrology is taking off 2.5 to 3 liters ultrafiltration. The patient continues on TPN due to continued abdominal discomfort. He is taking small amounts of liquid, about one Ensure a day. He does have anemia of chronic disease secondary to his end stage renal disease. He is receiving Aranesp. 6. Pancreatitis, acute. The patient denies history of or present alcohol use. H e denies any history of gallstones. Unfortunately, due to the patient's current condition, would not be able to do imaging to assess gallbladder for evidence of stones. General surgery is apparently seeing the patient. He does have a moderate amount of pancreatic edema, which they have recommended not to tap, per their note. The patient is receiving TPN and Dilaudid therapy. He is also receiving pancrelipase, Zofran and Bacid. He is apparently able to take in some liquids to the amount of about one Ensure can per day. Frequent feedings have been recommended by general surgery. 7. Diarrhea. This is likely secondary from irrigation from the inflammation of his pancreas. He has been continued on Imodium. General surgery is apparently following. 8. Anemia of chronic disease. Hemoglobin and hematocrit today did seem stable. During his admission, the patient has had so far 6 units of packed red blood cells and 2 units of albumin. Continue to monitor. 9. History of significant tobacco abuse. The patient has not had spirometry or pulmonary function tests in the past. We did evaluate his chest x-ray on CT, which did not show evidence of hyperinflation, emphysema respectively. He could have a component of chronic obstructive pulmonary disease (COPD) and it is reasonable to treat for this and sort out the official diagnosis later after the patient is discharged. DISPOSITION: We will discontinue noninvasive at this point. We will continue the patient on nasal cannula. We will add Symbicort and Spiriva to the patient's regimen and continue bronchodilator. We have discontinued steroids. Not fully convinced that the patient has chronic obstructive pulmonary disease (COPD); however, it is reasonable to treat for this at this time and to sort out official diagnosis after the patient is stable enough for discharge. There is possible plans for cardiac catheterization and esophagogastroduodenoscopy (EGD) in the patient's future once he is stable enough to undergo these invasive procedures. Critical care consult time was 35 minutes, not including procedure time. My faculty preceptor for this patient encounter was physically present during the encounter. All aspects of the patient interview, examination, medical decision making process, and medical care plan development were reviewed and approved by the faculty preceptor. The faculty preceptor is aware and concurs with the plan as stated in the body of this note and will attest to such by his/her co-signature. ADDENDUM: I, Dr. Mark Whitney, was present and participated in history and physical examination and agree with the documentation. I discussed the assessment and plan with the resident and agree with the above documentation. KENDELL
[2018-08-27] MEDS ORDERED: [UNRECOGNIZED DRUG - OTHER] IV SCH ×10 (18:00)
[2018-08-27] MEDS ORDERED: FAT EMULSION IV 20% 500 ML IV SCH (18:00)
[2018-08-27] MEDS ORDERED: SODIUM CHLORIDE IV SCH ×10 (18:00)
[2018-08-27] MEDS ORDERED: SODIUM ACETATE IV SCH ×10 (18:00)
[2018-08-27 18:37] LABS: MB/CK RELATIVE INDEX 18.75 (< OR =4); TROPONIN I 0.12 NG/ML (< 0.10)
--- NOTE | 2018-08-27 18:47 | IPNPDOC ---
Text Note Date of Service The patient was seen on 08/27/18. NOTE The patient was seen and examined. Denies any chest pain, pressure or discomfort. Denies any fever or chills. Reported abdominal pain poor po continued. Denies any nausea or vomiting. episode of hypoxia and tachycardiac overnight with metabolic acidosis. currently resolved off bipap. PHYSICAL EXAMINATION: GENERAL: The patient in no acute distress, comfortable. HEENT: Normocephalic, atraumatic. NECK: Supple. CARDIAC: Regular. S1, S2. 2/6 systolic murmur. ABDOMEN: Soft, difuse tenderness. Mild distension. Positive bowel sounds. PULMONARY: Bilateral clear. EXTREMITIES: 1+ edema. ASSESSMENT AND PLAN: This is a 47-year-old male patient with underlying medical history of coronary artery disease with coronary artery bypass graft (CABG) in 2000, PCI with multiple stents. Most recent cardiac catheterization two years ago, history of congestive heart failure (CHF) with reduced ejection fraction, has a biventricular pacemaker defibrillator, insulin-dependent diabetes, complicated with diabetic neuropathy, chronic obstructive pulmonary disease (COPD), gastroesophageal reflux disease (GERD), hypertension, dyslipidemia, benign prostatic hypertrophy (BPH), history of cerebrovascular accident (CVA), history of methicillin-resistant Staphylococcus aureus (MRSA), sternal osteomyelitis, degenerative joint disease was initially presented to the hospital with shortness of breath and chest tightness. On presentation, the patient was diagnosed with non-ST segment elevation myocardial infarction (NSTEMI). Hospital course complicated with intubation, nitroglycerine drip with also hyperglycemia require insulin drip, complicated with hypotension, shock liver, as well as pancreatitis and also persistent leukocytosis, bonita urea and acute on chronic renal failure. PROBLEMS: 1. Abdominal pain secondary to pancreatitis . Diet as tolerated. CT scan repeated. Surgery has been consulted. The patient has been on Dilaudid for pain medication. pain management consult. Pancreatic enzyme has been added given persistent diarrhea. Clostridium difficile work up has been negative. d/w Surgery, Imodium prn added. TPN given poor po, Po feeding as to lerated 2. SOB and hypoxia, fluid overload vs reactive airway/ COPD vs Anxiety, off bipap. cxr, abg improved. pulmonary consult, Symbicort, neb, spiriva 3. Abdominal truncal rash as per infection disease, Dr. Hector, likely secondary to hydralazine. The patient's hydralazine has been on stopped . resolving 4. Acute on chronic renal failure, currently end-stage renal requiring dialysis. Further management as per nephrology. 5. Persistent leukocytosis, was treated with broad-spectrum antibiotics and antifungal including Diflucan, Zosyn and vancomycin. Sputum culture showed Streptococcus agalactiae. Infectious disease has been consulted. Presently, the patient is off of antibiotics. CRP improved. 6. Acute coronary syndrome with non-ST segment elevation myocardial infarction (NSTEMI). Continue aspirin and Plavix, Coreg, isosorbide dinitrate. Hydralazine has been on hold given possible reaction. Isosorbide dinitrate has been increased. Automatic implantable cardioverted defibrillator (AICD) has been turned back on. Appreciate Dr. Giordano's input. As per cardiology, patient not a candidate for cardiac intervention in current condition 7. Acute severe pancreatitis, nausea and vomiting, resolved. abd pain and diarrhea. Appreciate Dr. Nolasco's surgery consult. Diet as tolerated. TPN. repeat ct abd appreciated. further rec as per surgery. Pancreatic enzyme has been added, titrate up as needed. 8. Status post shock liver secondary to non-ST segment elevation myocardial infarction (NSTEMI) and congestive heart failure (CHF), currently improved. 9. Generalized weakness and deconditioning. Protein calorie malnutrition. Diet as tolerated. TPN, diet as tolerated 10. History of gastroesophageal reflux disease (GERD). Continue proton pump inhibitor (PPI). 11. Diabetes mellitus. insulin in TPN. and Q6hr protocol. Adjust as needed. 12. Acute on chronic anemia secondary to anemia of chronic disease. Also possible gastrointestinal (GI) bleed, status post 5 units packed red blood cells. Monitor complete blood count (CBC). Consulted GI given recent acute coronary syndrome. The patient is not a candidate for intervention at this time. Continue to monitor. 13. Protein calorie malnutrition. start total parenteral nutrition (TPN) Diet as tolerated. Dietary consult. Ensure clear. 13. Deep vein thrombosis (DVT) prophylaxis. teds and scd given concerns of GI bleed DISPOSITION: Likely will need short-term rehabilitation. Pain med as prescribed. clinical improvement. Poor senior living prognosis. refusing PT on multiple occasions. reorder PT VS,Fishbone, I+O VS, Fishbone, I+O Laboratory Tests 08/27/18 05:50 Red Blood Count 2.13 L, Mean Corpuscular Volume 96.7 H, Mean Corpuscular Hemoglo bin 29.6, Mean Corpuscular Hemoglobin Concent 30.6 L, Red Cell Distribution Width 14.9 H, Calcium Level 8.5 08/27/18 06:38 08/27/18 18:00 Vital Signs Date Time Temp Pulse Resp B/P (MAP) Pulse Ox O2 Delivery O2 Flow Rate FiO2 08/27/18 17:55 158/81 08/27/18 16:00 2.0 08/27/18 16:00 97.3 77 20 97 Nasal Cannula 08/27/18 09:00 60 I&O- Last 24 Hours up to 6 AM 08/27/18 06:00 Intake Total 300 ml Output Total 100 ml Balance 200 ml MASSIMO MAC MD Aug 27, 2018 18:47
--- NOTE | 2018-08-27 20:21 | IPN ---
DATE: 08/27/2018 SUBJECTIVE: Patient is seen and examined this morning in the intensive care unit, earlier at around 5 am he had a sudden onset of shortness of breath that woke him from sleep. Patient states that it felt like he was having an asthma attack. He was placed on Bi-Pap and brought to the intensive care unit. He had subsequent resolution of symptoms. He was taken off of Bi-PAP and repeat blood gas did not show any significant CO2 retention and the patient stated he felt like he was back to his usual baseline. He is still having abdominal pain and poor by mouth intake. VITAL SIGNS: Temperature 97.3, pulse 77, respiratory rate 20, blood pressure 157/79, saturating 97% on 2 liters nasal cannula. Intake and output yesterday is not fully recorded because the TPN was not recorded yesterday. Weight in the bed scale today is 97.8 kg which is significantly different from prior and likely inaccurate. GENERAL: Patient is seen lying in bed on nasal cannula, comfortable and depressed appearing in no acute distress. Extraocular muscles are intact. Nasal cannula is in place. Tongue is moist. Cardiac, S1, S2 regular rate and rhythm. Lungs, showed symmetric air entry bilaterally and diminished at the base, otherwise no wheezing or crackles. The abdomen is soft and tender to palpation in the lower quadrant. The extremities show trace edema. There is a right IJ Permacath. Neurologic, he is oriented and interactive. Psychiatric: He appears depressed. LABS: White count 18.5, hemoglobin check this morning was 6.3 and a repeat hemoglobin 45 minutes later was 9.6 and repeat again 9.2, sodium 135, potassium 4.9, bicarbonate 21, BUN 47, lactic acid 1.4. INPATIENT MEDICATIONS: Patient continues on TPN. I note he is started on Symbicort and Spiriva. The remainder of the medications are unchanged from prior. PROBLEMS: 1. Oliguric renal failure in the setting of NSTEMI and cardiac arrest and shock. There are no signs of renal recovery. He has a brisk risk in intradialytic creatinine and he remains around 200 mL of urine output in 24 hours. He is having significant intake from TPN. His next dialysis will be on Monday morning with goal fluid removal of around 3 liters as tolerated by hemodynamics. 2. Pancreatitis with abdominal pain and poor oral intake. Patient has been seen by surgery and pain management. He is on pancreatic replacement enzymes. He is continued on TPN. His CRP has improved over the past week. I am going to add on a lipase level for labs tomorrow. 3. Sudden onset of shortness of breath and hypoxia, early this morning which prompted patient's transfer and was placed on Bi-PAP with subsequent resolution of symptoms. Post Bi-ABG does not show any significant CO2 retention and patient has been started on Symbicort and Spiriva. There is some fluid overload. Significant intake from TPN. He will be dialyzed Monday morning with 3 liters goal fluid removal. 4. Anemia with a possible GI bleed and status-post 5 units of packed red blood cells. His hemoglobin has been stable in the 9's and he continues on Aranesp with dialysis. 5. Hypertension. Blood pressures are acceptable at present and he continues on Carvedilol and Isordil and I am making no changes. MTDD
--- NOTE | 2018-08-27 21:07 | ECGEPIP ---
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
--- NOTE | 2018-08-27 21:13 | ECGEPIP ---
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
--- NOTE | 2018-08-27 23:24 | IPN ---
DATE: 08/26/2018 SUBJECTIVE: The patient seen and examined this morning at the bedside. Reports ongoing poor oral intake and abdominal pain in the bilateral lower quadrant. He denies any nausea or vomiting. He continues on total parenteral nutrition (TPN) and his urine output remains minimal. Tolerated dialysis yesterday without issues. VITAL SIGNS: Temperature 97.7, pulse 80, respiratory rate 18, blood pressure 139/69, saturating 97% on 2 liters nasal canula. Intake yesterday was at 2730 of which only 480 was oral. Most of the remainder was total parenteral nutrition (TPN). His urine output yesterday was 225. Dialysis yesterday removed 3000, net negative 495. Weight in the bed scale today is 90.8 kg which is decreased from prior. GENERAL: The patient is seen lying in bed in no acute distress, appears weak, but comfortable. Extraocular muscles are intact. Tongue is moist. Nasal cannula in place. Neck is supple. There is a tunneled hemodialysis catheter present in the right internal jugular. CARDIAC: S1, S2 regular rate. There is no edema in the lower extremities. There is an automatic implantable cardioverted defibrillator (AICD) present in the left chest wall. LUNGS: Show fair air movement bilaterally. No rales or rhonchi. ABDOMEN: Soft. He grimaces to palpation of the lower quadrant. EXTREMITIES: Negative for edema. LABORATORY: White count 18.2, hemoglobin 9.1, platelets 467, sodium 136, potassium 3.8, bicarbonate 25, C-reactive protein (CRP) 9. INPATIENT MEDICATIONS ARE REVIEWED: He continues on total parenteral nutrition (TPN). His insulin was adjusted per the primary team and the remainder of medications are unchanged from prior. PROBLEMS: 1. Acute oliguric renal failure in the setting of cardiac arrest. The patient has been dialysis dependent. There are no signs of renal recovery at present. His urine output is minimal and only about 200 mL per day. As he is receiving significant intake from this total parenteral nutrition (TPN), his next dialysis will likely be on Monday and we will continue to monitor him closely for any signs of renal recovery. At present, his electrolytes and volume status are acceptable. 2. Acute pancreatitis. The patient is on total parenteral nutrition (TPN) managed per the primary team. He is having minimal oral intake. Surgery and pain management have seen him. He is receiving pancreatic replacement enzymes. 3. Coronary artery disease, status post non-ST segment elevation myocardial infarction (NSTEMI), status post cardiac arrest. Echocardiogram in July showed left ventricular ejection fraction of 15% to 20%. His volume status is regulated by hemodialysis. Next treatment will be on Monday and he continues on beta renita, Isordil and Plavix. 4. Anemia with possible gastrointestinal (GI) bleed and also renal failure, status post 6 units of packed red blood cells. Hemoglobin now stable in the 9s and he continues on Aranesp.
[2018-08-28] VITALS (10 sets, daily range): BP systolic 136–156; BP diastolic 64–80; O2SAT 97–98
[2018-08-28] MEDS: HumaLOG INSULIN (NovoLOG) PER UNIT SC SCH ×4 (00:24→17:18)
[2018-08-28] MEDS: SLF 3 ML SYR IV SCH ×4 (00:24→20:08)
[2018-08-28] MEDS: HYDROMORPHONE HCL 0.5 MG/ 0.5 ML SYRINGE (J1170 PER 1) IV PRN ×7 (00:25→23:35)
[2018-08-28 00:36] LABS: MB/CK RELATIVE INDEX 17.33 (< OR =4); TROPONIN I 0.13 NG/ML (< 0.10)
[2018-08-28 04:50] LABS: HEMOGLOBIN 9.2 g/dl (13.5-17.5); MEAN CORPUSCULAR HGB CONC 31.7 g/dl (32.0-36.5); MEAN CORPUSCULAR VOLUME 94.5 fl (80.0-96.0); PLATELET COUNT, AUTOMATED 418 10^3/uL (150-450); RED BLOOD COUNT 3.07 10^6/uL (4.30-6.10); WHITE BLOOD COUNT 20.6 10^3/uL (4.0-10.0)
[2018-08-28 05:14] LABS: ALBUMIN 1.8 GM/DL (3.2-5.2); BILIRUBIN,TOTAL 0.4 MG/DL (0.2-1.0); C REACTIVE PROTEIN QUANTITATIV 9.31 MG/DL (0.00-0.30); CALCIUM LEVEL 8.6 MG/DL (8.5-10.1); CREATININE FOR GFR 5.39 MG/DL (0.70-1.30); GLOMERULAR FILTRATION RATE 12.1 (>60); TOTAL PROTEIN 6.6 GM/DL (6.4-8.2)
[2018-08-28] MEDS: ISOSORBIDE DIN. (ISORDIL) 30 MG TAB PO SCH ×3 (06:10→17:18)
[2018-08-28] MEDS: TIOTROPIUM INHALER/CAPSULE (SPIRIVA) INH SCH (07:35)
[2018-08-28] MEDS: ALBUTEROL SULFATE 2.5 MG/0.5 ML INH NEB SOLN NEB SCH (07:35)
[2018-08-28] MEDS: SYMBICORT 160/4.5MCG INHALER 6GM INH SCH (07:35)
--- NOTE | 2018-08-28 07:44 | IPNPDOC ---
Date Seen The patient was seen on 08/28/18. Progress Note SUBJECTIVE: The patient was seen and examined. Denies any chest pain, pressure or discomfort. Denies any fever or chills. Reported abdominal pain in the bilateral low quadrants. still with poor po intake. TPN continued. Denies any nausea or vomiting. respiratory status improved to baseline. PHYSICAL EXAMINATION: GENERAL: The patient in no acute distress, comfortable. HEENT: Normocephalic, atraumatic. NECK: Supple. CARDIAC: Regular. S1, S2. 2/6 systolic murmur. ABDOMEN: Soft, diffuse tenderness b/l LQ. Mild distension. Positive bowel sounds. PULMONARY: Bilateral clear. EXTREMITIES: 1+ edema. ASSESSMENT AND PLAN: This is a 47-year-old male patient with underlying medical history of coronary artery disease with coronary artery bypass graft (CABG) in 2000, PCI with multiple stents. Most recent cardiac catheterization two years ago, history of congestive heart failure (CHF) with reduced ejection fraction, has a biventricular pacemaker defibrillator, insulin-dependent diabetes, complicated with diabetic neuropathy, chronic obstructive pulmonary disease (COPD), gastroesophageal reflux disease (GERD), hypertension, dyslipidemia, benign prostatic hypertrophy (BPH), history of cerebrovascular accident (CVA), history of methicillin-resistant Staphylococcus aureus (MRSA), sternal osteomyelitis, degenerative joint disease was initially presented to the hospital with shortness of breath and chest tightness. On presentation, the patient was diagnosed with non-ST segment elevation myocardial infarction (NSTEMI). Hospital course complicated with intubation, nitroglycerine drip with also hyperglycemia require insulin drip, complicated with hypotension, shock liver, as well as pancreatitis and also persistent leukocytosis, bonita urea and acute on chronic renal failure. PROBLEMS: 1. Abdominal pain secondary to pancreatitis . Diet as tolerated. CT scan repeated. Surgery has been consulted. The patient has been on Dilaudid for pain medication. pain management consult. Pancreatic enzyme has been added given persistent diarrhea. Clostridium difficile work up has been negative. d/w Surgery, Imodium prn added. TPN given poor po, Po feeding as t olerated 2. SOB and hypoxia, fluid overload vs reactive airway/ COPD vs Anxiety, off bipap. cxr, abg improved. pulmonary consult, Symbicort, neb, spiriva 3. Abdominal truncal rash as per infection disease, Dr. Hector, likely secondary to hydralazine. The patient's hydralazine has been on stopped . resolving 4. Acute on chronic renal failure, currently end-stage renal requiring dialysis. Further management as per nephrology. 5. Persistent leukocytosis, was treated with broad-spectrum antibiotics and antifungal including Diflucan, Zosyn and vancomycin. Sputum culture showed Streptococcus agalactiae. Infectious disease has been consulted. Presently, the patient is off of antibiotics. CRP improved. 6. Acute coronary syndrome with non-ST segment elevation myocardial infarction (NSTEMI). Continue aspirin and Plavix, Coreg, isosorbide dinitrate. Hydralazine has been on hold given possible reaction. Isosorbide dinitrate has been increased. Automatic implantable cardioverted defibrillator (AICD) has been turned back on. Appreciate Dr. Giordano's input. As per cardiology, patient not a candidate for cardiac intervention in current condition 7. Acute severe pancreatitis, nausea and vomiting, resolved. abd pain and diarrhea. Appreciate Dr. Nolasco's surgery consult. Diet as tolerated. TPN. repeat ct abd appreciated. further rec as per surgery. Pancreatic enzyme has been added, titrate up as needed. 8. Status post shock liver secondary to non-ST segment elevation myocardial infarction (NSTEMI) and congestive heart failure (CHF), currently improved. 9. Generalized weakness and deconditioning. Protein calorie malnutrition. Diet as tolerated. TPN, diet as tolerated 10. History of gastroesophageal reflux disease (GERD). Continue proton pump inhibitor (PPI). 11. Diabetes mellitus. insulin in TPN. and Q6hr protocol. Adjust as needed. 12. Acute on chronic anemia secondary to anemia of chronic disease. Also possible gastrointestinal (GI) bleed, status post 5 units packed red blood cells. Monitor complete blood count (CBC). Consulted GI given recent acute coronary syndrome. The patient is not a candidate for intervention at this time. Continue to monitor. 13. Protein calorie malnutrition. start total parenteral nutrition (TPN) Diet as tolerated. Dietary consult. Ensure clear. 13. Deep vein thrombosis (DVT) prophylaxis. teds and scd given concerns of GI bleed DISPOSITION: Likely will need short-term rehabilitation. Pain med as prescribed. clinical improvement. Poor fdc prognosis. refusing PT on multiple occasions. reordered PT. stable to transfer to PCU. VS, I&O, 24H, Fishbone Vital Signs/I&O Vital Signs Date Time Temp Pulse Resp B/P (MAP) Pulse Ox O2 Delivery O2 Flow Rate FiO2 08/28/18 06:10 146/73 08/28/18 06:00 73 Nasal Cannula 2.0 08/28/18 04:25 20 08/28/18 04:00 98.0 97 08/27/18 09:00 60 I&O- Last 24 Hours up to 6 AM 08/28/18 06:00 Intake Total 2045 ml Output Total 550 ml Balance 1495 ml Laboratory Data 24H LABS Laboratory Tests 2 08/27/18 09:02: Lactic Acid Level 1.4 08/27/18 10:59: Blood Gas Bicarbonate Standard 21.9L, Arterial Blood pH 7.378, Arterial Blood Partial Pressure CO2 38.0, Arterial Blood Partial Pressure O2 67.8L, Arterial Blood Total CO2 23.0, Arterial Blood HCO3 21.9L, Arterial Blood Base Excess - 2.9L, Arterial Blood Oxygen Saturation 93.2L 08/27/18 11:49: Bedside Glucose (Misc Panel) 242H 08/27/18 11:51: Total Creatine Kinase 20L, Creatine Kinase MB 3.0, Creatine Kinase MB Relative Index 15.50H, Troponin I 0.10# 08/27/18 17:41: Bedside Glucose (Misc Panel) 323H 08/27/18 18:00: Total Creatine Kinase 16L, Creatine Kinase MB 3.0, Creatine Kinase MB Relative Index 18.75H, Troponin I 0.12H 08/28/18 00:00: Total Creatine Kinase 15L, Creatine Kinase MB 3.0, Creatine Kinase MB Relative Index 17.33H, Troponin I 0.13H 08/28/18 00:18: Bedside Glucose (Misc Panel) 326H 08/28/18 04:41: Nucleated Red Blood Cells % (auto) 0.1H, Anion Gap 11, Glomerular Filtration Rate 12.1L, Blood Urea Nitrogen 65H, Creatinine 5.39H, Sodium Level 133L, Potassium Level 5.0, Chloride Level 102, Carbon Dioxide Level 20L, Calcium Level 8.6, Aspartate Amino Transf (AST/SGOT) 18, Alanine Aminotransferase (ALT/SGPT) 26, Alkaline Phosphatase 130H, Total Bilirubin 0.4, Total Protein 6.6, Albumin 1.8L, Magnesium Level 2.0, C-Reactive Protein, Quantitative 9.31H, Albumin/Globulin Ratio 0.38L, Lipase 163 CBC/BMP Laboratory Tests 08/27/18 18:00 08/28/18 04:41 Red Blood Count 3.07 L, Mean Corpuscular Volume 94.5, Mean Corpuscular Hemoglobin 30.0, Mean Corpuscular Hemoglobin Concent 31.7 L, Red Cell Distribution Width 14.8 H, Calcium Level 8.6, Aspartate Amino Transf (AST/SGOT) 18, Alanine Aminotransferase (ALT/SGPT) 26, Alkaline Phosphatase 130 H, Total Bilirubin 0.4, Total Protein 6.6, Albumin 1.8 L Microbiology Microbiology 08/21/18 Stool Lactoferrin - Final, Complete KEM FARNSWORTH MD Aug 28, 2018 06:53
[2018-08-28] MEDS: AMIODARONE 200 MG TAB (PACERONE) PO SCH (07:49)
[2018-08-28] MEDS: CREON-24 CAPSULE PO SCH ×3 (07:50→17:17)
[2018-08-28] MEDS: CARVedilol 6.25 MG TAB PO SCH ×2 (07:50→20:08)
[2018-08-28] MEDS: CLOPIDOGREL 75 MG TAB PO SCH (07:50)
[2018-08-28] MEDS: LACTOBACILLUS ACIDOPHILUS CAP (BACID) PO SCH ×3 (07:50→17:18)
[2018-08-28] MEDS ORDERED: HEPARIN 1,000 UNITS/ML 10ML VIAL (FOR RADIOLOGY& DIALYSIS ONLY) IV ONE (11:00)
[2018-08-28] MEDS ORDERED: HEPARIN 1,000 UNITS/ML 10ML VIAL (FOR RADIOLOGY& DIALYSIS ONLY) XX ONE (11:00)
[2018-08-28] MEDS ORDERED: SODIUM CHLORIDE IV SCH ×8 (18:00)
[2018-08-28] MEDS ORDERED: FAT EMULSION IV 20% 500 ML IV SCH (18:00)
[2018-08-28] MEDS ORDERED: [UNRECOGNIZED DRUG - OTHER] IV SCH ×8 (18:00)
[2018-08-28] MEDS ORDERED: SODIUM ACETATE IV SCH ×8 (18:00)
--- NOTE | 2018-08-28 21:59 | IPN ---
DATE: 08/28/2018 SUBJECTIVE: Patient seen and examined this morning in the hemodialysis unit receiving his treatment. His main complaint continues to be the same which is terrible abdominal pain which is making it difficult to have oral intake. He denies any nausea or vomiting. Reports some mild constipation, but states he had a bowel movement yesterday without straining. There was no further repeated episodes of sudden onset shortness of breath. He appears quite depressed on dialysis when I saw him this morning. VITAL SIGNS: Temperature 98.0, pulse 93, respiratory rate 21, blood pressure 143/70, saturating 97% on 2 liters nasal cannula. Intake yesterday was 1.6 liters. Urine output yesterday was 350. Hemodialysis today removed 3,000. Weight on the bed scale was 97.4 kg. GENERAL: Patient is seen on hemodialysis receiving his treatment via tunneled right IJ PermaCath. Extraocular muscles are intact. Tongue is moist. Nasal cannula is in place. He is awake, alert and oriented and not in any distress. CARDIAC: S1, S2, regular rate and rhythm. No edema in the extremities. LUNGS: Symmetric air entry. Diminished at the base secondary to poor effort, but no wheezing, crackles or rales. ABDOMEN: Soft. There are bowel sounds. Patient's pain does not allow for deep palpation. There is tenderness in the bilateral lower quadrants. NEUROLOGICAL: He is oriented, interactive and no focal deficits. PSYCHIATRIC: He appears depressed. LABS: White count 20.6, hemoglobin 9.2, platelets 418. Sodium 133, potassium 5.0, bicarbonate 20. Lipase 163. INPATIENT MEDICATIONS: Reviewed by myself. He continues on total parenteral nutrition (TPN). Remainder of medications are unchanged from prior. PROBLEMS: 1. Oliguric renal failure in the setting of [id number] myocardial infarction (NSTEMI) cardiac arrest and shock. Patient remains dialysis dependent at present. Although today, it does look like he has had more urine output than on prior days, we will continue to monitor him for signs of renal recovery. At present, there are none. He was dialyzed today with 3 liters of fluid removed. The patient tolerated it without issue. He does have significant intake from his TPN. 2. Abdominal pain and pancreatitis. Patient's main complaint to me today was his terrible abdominal discomfort which has not improved over the past week. He is having minimal oral intake. I see his last CT scan on the did show multiple abdominal fluid collections and an ileus and marked peripancreatic edema, and complex fluid collection as well. Given that the patient is having no improvement in abdominal pain and he is having a rising white count, I suggest his abdomen be re-evaluated by the surgical team and I also suggest that he have repeat CT scan and I will defer this workup to the hospitalist service. I see no significant improvement in his CRP over the past 3 days although his lipase level has down trended. 3. Anemia with possible GI bleed, status post 5 units packed red blood cells. Hemoglobin remains stable in the 9s. He continues on daily CBC monitoring and continues on Aranesp with dialysis. 4. Hypertension. Blood pressures are acceptable and he continues on carvedilol and Isordil and I am making no changes.
[2018-08-29] VITALS (7 sets, daily range): BP systolic 143–159; BP diastolic 72–82
[2018-08-29] MEDS: HumaLOG INSULIN (NovoLOG) PER UNIT SC SCH ×4 (01:23→18:03)
[2018-08-29] MEDS: HYDROMORPHONE HCL 0.5 MG/ 0.5 ML SYRINGE (J1170 PER 1) IV PRN ×6 (03:37→21:49)
[2018-08-29 05:08] LABS: HEMATOCRIT 32.4 % (42.0-52.0); MEAN CORPUSCULAR HEMOGLOBIN 29.2 pg (27.0-33.0); MEAN CORPUSCULAR HGB CONC 30.9 g/dl (32.0-36.5); MEAN CORPUSCULAR VOLUME 94.5 fl (80.0-96.0); PLATELET COUNT, AUTOMATED 451 10^3/uL (150-450); RED BLOOD COUNT 3.43 10^6/uL (4.30-6.10); WHITE BLOOD COUNT 20.5 10^3/uL (4.0-10.0)
[2018-08-29 05:27] LABS: ALBUMIN 1.8 GM/DL (3.2-5.2); BILIRUBIN,TOTAL 0.4 MG/DL (0.2-1.0); C REACTIVE PROTEIN QUANTITATIV 4.91 MG/DL (0.00-0.30); CALCIUM LEVEL 8.5 MG/DL (8.5-10.1); CREATININE FOR GFR 3.67 MG/DL (0.70-1.30); GLOMERULAR FILTRATION RATE 18.9 (>60); MAGNESIUM LEVEL 1.8 MG/DL (1.8-2.4); POTASSIUM SERUM 4.3 MEQ/L (3.5-5.1); TOTAL PROTEIN 6.5 GM/DL (6.4-8.2)
[2018-08-29] MEDS: SLF 3 ML SYR IV SCH ×3 (06:00→20:52)
[2018-08-29] MEDS: ISOSORBIDE DIN. (ISORDIL) 30 MG TAB PO SCH ×3 (06:29→17:45)
[2018-08-29] MEDS: TIOTROPIUM INHALER/CAPSULE (SPIRIVA) INH SCH (08:00)
[2018-08-29] MEDS: SYMBICORT 160/4.5MCG INHALER 6GM INH SCH ×3 (08:30→21:43)
[2018-08-29] MEDS: LACTOBACILLUS ACIDOPHILUS CAP (BACID) PO SCH ×2 (08:38→12:11)
[2018-08-29] MEDS: CLOPIDOGREL 75 MG TAB PO SCH (08:38)
[2018-08-29] MEDS: CREON-24 CAPSULE PO SCH ×2 (08:39→12:11)
[2018-08-29] MEDS: AMIODARONE 200 MG TAB (PACERONE) PO SCH (08:39)
[2018-08-29] MEDS: CARVedilol 6.25 MG TAB PO SCH ×2 (08:39→20:49)
--- NOTE | 2018-08-29 09:22 | IPNPDOC ---
Date Seen The patient was seen on 08/29/18. Progress Note SUBJECTIVE: The patient was seen and examined. Chart has been reviewed. Denies any fever or chills. Reported abdominal pain in the bilateral low quadrants with increasing abdominal distension, refusing to work with physical therapy due to pain. CRP is decreasing, but white count is increased today. He has worsening pain when he attempts to eat, and still with poor po intake. TPN continued. Denies any nausea or vomiting. respiratory status improved to baseline. surgery will re-evaluate today. ct abd / pelvis ordered. PHYSICAL EXAMINATION: GENERAL: The patient in no respiratory distress HEENT: Normocephalic, atraumatic. NECK: Supple. CARDIAC: Regular. S1, S2. 2/6 systolic murmur. ABDOMEN: Soft, diffuse tenderness b/l LQ. increased distension. Positive bowel sounds. PULMONARY: diminished at bases EXTREMITIES: 1+ edema. ASSESSMENT AND PLAN: This is a 47-year-old male patient with underlying medical history of coronary artery disease with coronary artery bypass graft (CABG) in 2000, PCI with multiple stents. Most recent cardiac catheterization two years ago, history of congestive heart failure (CHF) with reduced ejection fraction, has a biventricular pacemaker defibrillator, insulin-dependent diabetes, complicated with diabetic neuropathy, chronic obstructive pulmonary disease (COPD), gastroesophageal reflux disease (GERD), hypertension, dyslipidemia, benign prostatic hypertrophy (BPH), history of cerebrovascular accident (CVA), history of methicillin-resistant Staphylococcus aureus (MRSA), sternal osteomyelitis, degenerative joint disease was initially presented to the hospital with shortness of breath and chest tightness. On presentation, the patient was diagnosed with non-ST segment elevation myocardial infarction (NSTEMI). Hospital course complicated with intubation, nitroglycerine drip with also hyperglycemia require insulin drip, complicated with hypotension, shock liver, as well as pancreatitis and also persistent leukocytosis, bonita urea and acute on chronic renal failure. PROBLEMS: 1. Abdominal pain secondary to pancreatitis . Diet as tolerated. CT scan re- ordered. Surgery has been consulted. The patient has been on Dilaudid for pain medication. pain management consult. Pancreatic enzyme has been added given persistent diarrhea. Clostridium difficile work up has been negative. d/w Surgery, Imodium prn added. TPN given poor po, Po feeding as tolerated. increasing white count but no fever. check lactic acid, serial crp, esr. 2. SOB and hypoxia, fluid overload vs reactive airway/ COPD vs Anxiety, off bipap. cxr, abg improved. pulmonary consult, Symbicort, neb, spiriva 3. Abdominal truncal rash as per infection disease, Dr. Hector, likely secondary to hydralazine. The patient's hydralazine has been on stopped . resolving 4. Acute on chronic oliguric renal failure in the setting of ACS/NSTEMI, curre ntly end-stage renal requiring dialysis. Further management as per nephrology. 5. Persistent leukocytosis, was treated with broad-spectrum antibiotics and antifungal including Diflucan, Zosyn and vancomycin. Sputum culture showed Streptococcus agalactiae. Infectious disease has been consulted. Presently, the patient is off of antibiotics. CRP improved. 6. Acute coronary syndrome with non-ST segment elevation myocardial infarction (NSTEMI). Continue aspirin and Plavix, Coreg, isosorbide dinitrate. Hydralazine has been on hold given possible reaction. Isosorbide dinitrate has been increased. Automatic implantable cardioverted defibrillator (AICD) has been turned back on. Appreciate Dr. Giordano's input. As per cardiology, patient not a candidate for cardiac intervention in current condition 7. Acute severe pancreatitis, nausea and vomiting, resolved. abd pain and diarrhea. Appreciate Dr. Nolasco's surgery consult. Diet as tolerated. TPN. repeat ct abd appreciated. further rec as per surgery. Pancreatic enzyme has been added, titrate up as needed. 8. Status post shock liver secondary to non-ST segment elevation myocardial infarction (NSTEMI) and congestive heart failure (CHF), currently improved. 9. Generalized weakness and deconditioning. Protein calorie malnutrition. Diet as tolerated. TPN, diet as tolerated 10. History of gastroesophageal reflux disease (GERD). Continue proton pump inhibitor (PPI). 11. Diabetes mellitus. insulin in TPN. and Q6hr protocol. Adjust as needed. 12. Acute on chronic anemia secondary to anemia of chronic disease. Also possible gastrointestinal (GI) bleed, status post 5 units packed red blood cells. Monitor complete blood count (CBC). Consulted GI given recent acute coronary syndrome. The patient is not a candidate for intervention at this time. Continue to monitor. 13. Protein calorie malnutrition. start total parenteral nutrition (TPN) Diet as tolerated. Dietary consult. Ensure clear. 13. Deep vein thrombosis (DVT) prophylaxis. teds and scd given concerns of GI bleed DISPOSITION: Likely will need short-term rehabilitation. Pain med as prescribed. clinical improvement. Poor residential prognosis. refusing PT on multiple occasions. reordered PT. stable to transfer to med surg. no tele issues. VS, I&O, 24H, Fishbone Vital Signs/I&O Vital Signs Date Time Temp Pulse Resp B/P (MAP) Pulse Ox O2 Delivery O2 Flow Rate FiO2 08/29/18 08:41 80 24 142/75 97 Nasal Cannula 2.0 08/29/18 08:00 97.5 08/27/18 09:00 60 I&O- Last 24 Hours up to 6 AM 08/29/18 06:00 Intake Total 2560 ml Output Total 3400 ml Balance -840 ml Laboratory Data 24H LABS Laboratory Tests 2 08/28/18 12:51: Bedside Glucose (Misc Panel) 216H 08/28/18 17:10: Bedside Glucose (Misc Panel) 234H 08/29/18 01:20: Bedside Glucose (Misc Panel) 235H 08/29/18 04:49: Nucleated Red Blood Cells % (auto) 0.2H, Anion Gap 9, Glomerular Filtration Rate 18.9L, Blood Urea Nitrogen 49H, Creatinine 3.67H, Sodium Level 137, Potassium Level 4.3, Chloride Level 104, Carbon Dioxide Level 24, Calcium Level 8.5, Aspartate Amino Transf (AST/SGOT) 18, Alanine Aminotransferase (ALT/SGPT) 34, Alkaline Phosphatase 128H, Total Bilirubin 0.4, Total Protein 6.5, Albumin 1.8L, Magnesium Level 1.8, C-Reactive Protein, Quantitative 4.91H, Albumin/Globulin Ratio 0.38L CBC/BMP Laboratory Tests 08/29/18 04:49 Red Blood Count 3.43 L, Mean Corpuscular Volume 94.5, Mean Corpuscular Hemoglobin 29.2, Mean Corpuscular Hemoglobin Concent 30.9 L, Red Cell Distribution Width 14.8 H, Calcium Level 8.5, Aspartate Amino Transf (AST/SGOT) 18, Alanine Aminotransferase (ALT/SGPT) 34, Alkaline Phosphatase 128 H, Total Bilirubin 0.4, Total Protein 6.5, Albumin 1.8 L Microbiology Microbiology 08/21/18 Stool Lactoferrin - Final, Complete JAVDA,KEM C. MD Aug 29, 2018 09:22
[2018-08-29 10:14] LABS: TROPONIN I 0.1 NG/ML (< 0.10)
--- NOTE | 2018-08-29 10:24 | REP ---
CT ABDOMEN AND PELVIS WITHOUT IV OR ORAL CONTRAST: HISTORY: Severe pancreatitis. Increasing white blood cell count, pain and distension. Comparison study August 23 and August 10, 2018. CT FINDINGS: [employer] Operator view and CT images demonstrate gaseous distension of the sigmoid colon consistent with ileus. Bilateral pleural effusions are again seen with extensive atelectatic changes in the lower lobes of the lungs. This finding is essentially unchanged. Significant peripancreatic small bowel mesenteric infiltration and fluid density changes persist consistent with acute pancreatitis. There is no evidence to suggest a new hemorrhagic collection or quynh abscess formation. The left peripancreatic fluid collection measured 5 cm on August 23. This is somewhat improved measuring 3.8 cm today. There is minimal ascites again noted essentially unchanged. In the pelvis, there is some ascitic fluid in the posterior pelvic reflections and fluid extends to the right inguinal hernia into the right scrotum. This is unchanged as well. IMPRESSION: There is some improvement in one of the fluid collections adjacent to the pancreatic tail. No new collection is seen. Minimal ascites persists unchanged. Bilateral pleural effusions again noted unchanged. Electronically Signed by Everett Kent MD 08/29/2018 11:16 A
--- NOTE | 2018-08-29 11:25 | IPNPDOC ---
Subjective General Date/Time Seen The patient was seen on 08/29/18 at 11:24. Subject Chief Complaint/History I followed up on the patient today. He has CT scan of the abdomen and pelvis done. He continues reports of significant pain and discomfort in the seems to be located infraumbilically at the midline. He is barely taking anything orally terms of food. He remains on TPN. He was brought to the ICU early James morning for transient hypoxia which seems to have resolved by now. He continues to be on dialysis. His nurse reports that he is participating with physical therapy. Current Medications Current Medications Current Medications Acetaminophen (Tylenol Suspension) 650 mg Q4HP PRN GT PAIN OR FEVER Last administered on 08/11/18 07:09; Start 08/03/18 at 10:45; Stop 08/11/18 at 09:27; Status DC Acetaminophen (Tylenol Tab) 650 mg Q6HP PRN PO PAIN / FEVER Last administered on 08/21/18at 06:39; Start 08/20/18 at 17:30 Albuterol Sulfate (Proventil Neb) 2.5 mg Q2HP PRN NEB SOB/WHEEZING Last administered on 08/27/18at 06:16; Start 08/27/18 at 06:15 Albuterol Sulfate (Proventil Neb) 2.5 mg RQID NEB Last administered on 08/27/18at 20:46; Start 07/31/18 at 08:00; Stop 08/28/18 at 10:00; Status DC Amiodarone HCl (Pacerone, Cordarone) 400 mg DAILY PO Last administered on 08/29/18at 08:39; Start 08/14/18 at 09:00 Amiodarone HCl (Pacerone, Cordarone) 400 mg Q12H GT Last administered on 08/13/18at 10:15; Start 08/11/18 at 09:00; Stop 08/13/18 at 15:15; Status DC Amiodarone HCl (Pacerone, Cordarone) 400 mg Q8H GT Last administered on 08/10/18at 21:26; Start 08/02/18 at 22:00; Stop 08/10/18 at 21:52; Status DC Amiodarone HCl 360 mg/IV Miscellaneous Supplies 200 ml @ 16.66 mls/ hr Q12H1M IV ; Start 08/02/18 at 20:00; Stop 08/02/18 at 20:00; Status DC Amiodarone HCl 360 mg/IV Miscellaneous Supplies 200 ml @ 33.33 mls/ hr Q6H1M IV Last administered on 08/02/18at 13:30; Start 08/02/18 at 14:00; Stop 08/02/18 at 20:00; Status DC Aspirin (Aspirin Chewable) 81 mg BID NG Last administered on 08/13/18at 10:14; Start 07/31/18 at 09:00; Stop 08/13/18 at 15:15; Status DC Aspirin (Ecotrin) 81 mg BID PO ; Start 07/31/18 at 09:00; Stop 07/31/18 at 12:11; Status DC Aspirin (Ecotrin) 81 mg DAILY PO Last administered on 08/26/18at 08:51; Start at 09:00; Stop 08/27/18 at 06:28; Status DC Bisoprolol Fumarate (Zebeta) 2.5 mg Q12H GT Last administered on 08/10/18at 09:18; Start 08/02/18 at 21:00; Stop 08/10/18 at 11:23; Status DC Budesonide/ Formoterol Fumarate (Symbicort 160/ 4.5mcg) 2 puff BID INH Last administered on 08/29/18at 08:30; Start 08/27/18 at 09:00 Calcium Gluconate 1000 mg/Dextrose 110 ml @ 110 mls/hr ASDIRECTED IV ; Start 08/03/18 at 16:00; Status UNV Calcium Gluconate 1000 mg/Dextrose 110 ml @ 110 mls/hr Q1H IV Last administered on 08/03/18at 17:18; Start 08/03/18 at 16:30; Stop 08/03/18 at 18:29; Status DC Calcium Gluconate 1000 mg/Dextrose 110 ml @ 110 mls/hr Q1H IV Last administered on 08/04/18at 10:15; Start 08/04/18 at 09:00; Stop 08/04/18 at 10:59; Status DC Calcium Gluconate 1000 mg/Dextrose 110 ml @ 110 mls/hr Q1H IV Last administered on 08/04/18at 16:00; Start 08/04/18 at 15:00; Stop 08/04/18 at 16:59; Status DC Calcium Gluconate 1000 mg/Dextrose 110 ml @ 110 mls/hr Q1H IV Last administered on 08/05/18at 16:12; Start 08/05/18 at 15:00; Stop 08/05/18 at 16:59; Status DC Calcium Gluconate 1000 mg/Sodium Chloride 110 ml @ 110 mls/hr ASDIRECTED IV ; Start 08/04/18 at 21:30; Stop 08/04/18 at 22:23; Status DC Calcium Gluconate 1000 mg/Sodium Chloride 110 ml @ 110 mls/hr Q1H IV Last administered on 08/05/18at 00:39; Start 08/04/18 at 22:30; Stop 08/05/18 at 01:29; Status DC Calcium Gluconate 1000 mg/Sodium Chloride 110 ml @ 110 mls/hr Q1H IV Last administered on 08/05/18at 04:43; Start 08/05/18 at 03:00; Stop 08/05/18 at 04:59; Status DC Calcium Gluconate 1000 mg/Sodium Chloride 110 ml @ 110 mls/hr Q1H IV Last administered on 08/05/18at 10:15; Start 08/05/18 at 09:00; Stop 08/05/18 at 10:59; Status DC Carvedilol (COReg) 6.25 mg BID PO Last administered on 08/29/18at 08:39; Start 08/16/18 at 21:00 Carvedilol (COReg) 6.25 mg BID PO Last administered on 08/16/18at 08:02; Start 08/13/18 at 21:00; Stop 08/16/18 at 21:07; Status DC Carvedilol (COReg) 6.25 mg Q6H NG Last administered on 07/31/18at 18:13; Start 07/31/18 at 12:00; Stop 08/02/18 at 16:05; Status DC Chlorhexidine Gluconate (Peridex Oral Rinse) SWAB/BRUSH ORAL CAVITY BID MT Last administered on 08/12/18at 08:49; Start 07/31/18 at 09:00; Stop 08/12/18 at 19:14; Status DC Ciprofloxacin 200 mg/IV Miscellaneous Supplies 100 ml @ 100 mls/hr Q12H IV ; Start 08/29/18 at 12:00 Clopidogrel Bisulfate (PLAVix) 75 mg DAILY PO Last administered on 08/29/18at 08:38; Start 07/31/18 at 09:00 Darbepoetin Jay (Aranesp (Dialysis Use)) 200 mcg HD IV ; Start 08/18/18 at 11:15 Dextrose (Dextrose 50%) 25 ml ASDIRECTED PRN IV SEE LABEL COMMENTS Last administered on 08/11/18at 01:22; Start 08/02/18 at 02:00 Diatrizoate Meglum/ Diatrizoate Sod (Gastrografin) 10 ml Q30M PO Last administered on 08/23/18at 08:21; Start 08/23/18 at 07:30; Stop 08/23/18 at 08:01; Status DC Diatrizoate Meglum/ Diatrizoate Sod (Gastrografin) 10 ml Q30M PO Last administered on 08/10/18at 13:51; Start 08/10/18 at 12:00; Stop 08/10/18 at 13:05; Status DC Digoxin (Lanoxin) 0.25 mg Q6H IV Last administered on 08/02/18at 09:50; Start 08/01/18 at 21:00; Stop 08/02/18 at 15:01; Status DC Diphenhydramine HCl (Benadryl) 25 mg Q6HP PRN PO ITCHING Last administered on 08/19/18at 14:44; Start 08/18/18 at 18:00 Etomidate (Amidate) 20 mg STAT STAT IV Last administered on 07/31/18at 05:13; Start 07/31/18 at 05:30; Stop 07/31/18 at 05:47; Status DC Fat Emulsion Intravenous 500 ml @ 20 mls/hr ONCE@1800 IV Last administered on 08/17/18at 18:39; Start 08/17/18 at 18:00; Stop 08/18/18 at 17:59; Status DC Fat Emulsion Intravenous 500 ml @ 20 mls/hr ONCE@1800 IV Last administered on 08/18/18at 17:23; Start 08/18/18 at 18:00; Stop 08/19/18 at 12:16; Status DC Fat Emulsion Intravenous 500 ml @ 20 mls/hr ONCE@1800 IV Last administered on 08/24/18at 18:29; Start 08/24/18 at 18:00; Stop 08/25/18 at 17:59; Status DC Fat Emulsion Intravenous 500 ml @ 20 mls/hr ONCE@1800 IV Last administered on 08/25/18at 18:37; Start 08/25/18 at 18:00; Stop 08/26/18 at 17:59; Status DC Fat Emulsion Intravenous 500 ml @ 20 mls/hr ONCE@1800 IV Last administered on 08/26/18at 18:05; Start 08/26/18 at 18:00; Stop 08/27/18 at 17:59; Status DC Fat Emulsion Intravenous 500 ml @ 20 mls/hr ONCE@1800 IV Last administered on 08/27/18at 17:54; Start 08/27/18 at 18:00; Stop 08/28/18 at 17:59; Status DC Fat Emulsion Intravenous 500 ml @ 20 mls/hr ONCE@1800 IV Last administered on 08/28/18at 17:18; Start 08/28/18 at 18:00; Stop 08/29/18 at 17:59 Fat Emulsion Intravenous 500 ml @ 20 mls/hr ONCE@1800 IV Last administered on 08/12/18at 18:01; Start 08/12/18 at 18:00; Stop 08/13/18 at 17:59; Status DC Fat Emulsion Intravenous 500 ml @ 20 mls/hr ONCE@1800 IV Last administered on 08/13/18at 17:50; Start 08/13/18 at 18:00; Stop 08/14/18 at 17:59; Status DC Fentanyl Citrate (Sublimaze) 25 mcg Q1HP PRN IV Pain Last administered on 08/09/18at 16:51; Start 08/02/18 at 12:15; Stop 08/12/18 at 09:12; Status DC Fluconazole 100 mg/IV Miscellaneous Supplies 50 ml @ 50 mls/hr Q24H IV Last administered on 08/13/18at 15:22; Start 08/08/18 at 16:00; Stop 08/13/18 at 22:06; Status DC Furosemide (LASIX injection) 100 mg STAT STAT IV Last administered on 07/31/18at 05:05; Start 07/31/18 at 05:38; Stop 07/31/18 at 05:41; Status DC Glucagon (Glucagon) 1 mg ASDIRECTED PRN SC SEE LABEL COMMENTS; Start 08/02/18 at 02:00 Glucose (Glucose) 16 GM ASDIRECTED PRN PO SEE LABEL COMMENTS; Start 08/02/18 at 02:00 Heparin Sodium (Heparin Lock Flush 10units/ml) 10 units ASDIRECTED PRN IV SEE LABEL COMMENTS Last administered on 08/18/18at 19:49; Start 08/03/18 at 10:30; Stop 08/20/18 at 14:11; Status DC Heparin Sodium (Heparin Lock Flush 10units/ml) 10 units HLF IV Last administered on 08/20/18at 05:24; Start 08/03/18 at 14:00; Stop 08/20/18 at 14:11; Status DC Heparin Sodium (Heparin) ASDIRECTED PRN IV SEE LABEL COMMENTS; Start 08/03/18 at 12:30; Stop 08/07/18 at 10:09; Status DC Heparin Sodium (Heparin) ASDIRECTED PRN IV SEE LABEL COMMENTS Last administered on 08/14/18at 02:20; Start 08/05/18 at 04:00 Heparin Sodium (Porcine) (Heparin) ASDIRECTED PRN IV SEE LABEL COMMENTS; Start 07/31/18 at 12:30; Stop 07/31/18 at 12:37; Status DC Heparin Sodium (Porcine) (Heparin) ASDIRECTED PRN IV SEE LABEL COMMENTS Last administered on 07/31/18at 21:31; Start 07/31/18 at 12:45; Stop 08/03/18 at 21:46; Status DC Heparin Sodium (Porcine) (Heparin) 5,000 units Q12H SQ Last administered on 08/13/18at 15:22; Start 08/13/18 at 09:00; Stop 08/13/18 at 17:55; Status DC Heparin Sodium (Porcine) (Heparin) 5,000 units Q8H SC ; Start 07/31/18 at 06:00; Stop 07/31/18 at 12:11; Status DC Heparin Sodium (Porcine) 38775 units/IV Miscellaneous Supplies 250 ml @ 0 mls/hr Q0M IV ; Start 07/31/18 at 12:18; Status UNV Heparin Sodium (Porcine) 22249 units/IV Miscellaneous Supplies 250 ml @ 0 mls/hr Q0M IV ; Start 07/31/18 at 12:38; Stop 07/31/18 at 12:43; Status DC Heparin Sodium (Porcine) 10032 units/IV Miscellaneous Supplies 250 ml @ 0 mls/hr Q0M IV Last administered on 08/02/18at 09:40; Start 07/31/18 at 12:41; Stop 08/03/18 at 21:34; Status DC Home Med (Med Rec Complete!) ASDIRECTED XX ; Start 07/31/18 at 07:30; Stop 07/31/18 at 07:30; Status DC Hydralazine HCl (Apresoline) 10 mg QID PO Last administered on 08/21/18at 09:04; Start 08/16/18 at 21:00; Stop 08/21/18 at 10:17; Status DC Hydralazine HCl (Apresoline) 10 mg QID PO Last administered on 08/16/18at 17:47; Start 08/13/18 at 17:00; Stop 08/16/18 at 21:07; Status DC Hydralazine HCl (Apresoline) 10 mg TID PO Last administered on 08/21/18at 17:20; Start 08/21/18 at 16:00; Stop 08/21/18 at 18:01; Status DC Hydralazine HCl (Apresoline) 20 mg STAT STAT IV Last administered on 07/31/18at 05:09; Start 07/31/18 at 05:15; Stop 07/31/18 at 05:41; Status DC Hydromorphone HCl (Dilaudid) 0.2 mg Q3HP PRN IV MILD PAIN (PS 1-4); Start 08/21/18 at 12:45; Stop 08/22/18 at 10:37; Status DC Hydromorphone HCl (Dilaudid) 0.2 mg Q3HP PRN IV MILD PAIN (PS 1-4); Start 08/22/18 at 10:45; Stop 08/23/18 at 08:57; Status DC Hydromorphone HCl (Dilaudid) 0.3 mg Q3HP PRN IV MILD PAIN (PS 1-4) Last administered on 08/24/18at 17:28; Start 08/23/18 at 09:00 Hydromorphone HCl (Dilaudid) 0.4 mg Q3HP PRN IV MODERATE PAIN (PS 5-7) Last administered on 08/22/18at 09:20; Start 08/21/18 at 12:45; Stop 08/22/18 at 10:37; Status DC Hydromorphone HCl (Dilaudid) 0.4 mg Q3HP PRN IV MODERATE PAIN (PS 5-7) Last administered on 08/23/18at 08:30; Start 08/22/18 at 10:45; Stop 08/23/18 at 08:57; Status DC Hydromorphone HCl (Dilaudid) 0.6 mg Q3HP PRN IV MODERATE PAIN (PS 5-7) Last administered on 08/29/18at 08:41; Start 08/23/18 at 09:00 Insulin Detemir (Levemir Insulin) 10 units QHS SC Last administered on 08/16/18at 21:39; Start 08/14/18 at 21:00; Stop 08/17/18 at 08:27; Status DC Insulin Detemir (Levemir Insulin) 25 units QAM SC Last administered on 08/25/18at 09:04; Start 08/20/18 at 09:00; Stop 08/25/18 at 09:24; Status DC Insulin Detemir (Levemir Insulin) 25 units QAM SC Last administered on 08/18/18at 10:57; Start 08/15/18 at 09:00; Stop 08/19/18 at 07:53; Status DC Insulin Detemir (Levemir Insulin) 25 units QHS SC Last administered on 08/13/18at 18:21; Start 08/13/18 at 18:15; Stop 08/14/18 at 08:08; Status DC Insulin Detemir (Levemir Insulin) 35 units QAM SC Last administered on 08/19/18at 08:51; Start 08/19/18 at 09:00; Stop 08/20/18 at 07:35; Status DC Insulin Human Lispro (HumaLOG INSULIN) SEE PROTOCOL TABLE AC SC Last administe red on 08/24/18at 12:51; Start 08/15/18 at 07:30; Stop 08/24/18 at 20:12; Status DC Insulin Human Lispro (HumaLOG INSULIN) SEE PROTOCOL TABLE AC SC ; Start 08/15/18 at 07:30; Stop 08/15/18 at 07:30; Status DC Insulin Human Lispro (HumaLOG INSULIN) SEE PROTOCOL TABLE Q6H SC Last administered on 08/29/18at 06:29; Start 08/25/18 at 00:00 Insulin Human Lispro (HumaLOG INSULIN) SEE PROTOCOL TABLE Q6H SC Last administered on 08/10/18at 11:37; Start 08/08/18 at 12:00; Stop 08/10/18 at 16:59; Status DC Insulin Human Lispro (HumaLOG INSULIN) SEE PROTOCOL TABLE Q6H SC Last administered on 08/08/18at 05:58; Start 08/02/18 at 12:00; Stop 08/08/18 at 07:35; Status DC Insulin Human Lispro (HumaLOG INSULIN) SEE PROTOCOL TABLE QHS SC Last administered on 08/14/18at 20:59; Start 08/14/18 at 21:00; Stop 08/24/18 at 20:12; Status DC Insulin Human Lispro (HumaLOG INSULIN) See Protocol Table Q6H SC Last administ ered on 08/18/18at 06:12; Start 08/17/18 at 18:00; Stop 08/18/18 at 12:01; Status DC Insulin Human Lispro (HumaLOG INSULIN) See Protocol Table Q6H SC Last administered on 08/19/18at 12:48; Start 08/18/18 at 18:00; Stop 08/19/18 at 12:01; Status DC Insulin Human Lispro (HumaLOG INSULIN) See Protocol Table Q6H SC ; Start 08/25/18 at 18:00; Stop 08/25/18 at 23:46; Status DC Insulin Human Lispro (HumaLOG INSULIN) See Protocol Table Q6H SC Last administered on 08/13/18at 12:09; Start 08/12/18 at 18:00; Stop 08/13/18 at 12:01; Status DC Insulin Human Lispro (HumaLOG INSULIN) See Protocol Table Q6H SC Last administered on 08/14/18at 13:03; Start 08/13/18 at 18:00; Stop 08/14/18 at 12:01; Status DC Insulin Human Regular 100 units/ Sodium Chloride 100 ml @ 4.5 mls/hr [id number] IV Last administered on 08/12/18at 11:49; Start 08/10/18 at 12:00; Stop 08/12/18 at 14:57; Status DC Insulin Human Regular 100 units/ Sodium Chloride 100 ml @ 3 mls/hr Q24H IV ; Start 07/31/18 at 07:00; Stop 07/31/18 at 11:42; Status DC Insulin Human Regular 100 units/ Sodium Chloride 100 ml @ 5 mls/hr Q20H IV Last administered on 07/31/18at 06:44; Start 07/31/18 at 06:45; Stop 07/31/18 at 09:36; Status DC Insulin Human Regular 100 units/ Sodium Chloride 100 ml @ 8 mls/hr [id number] IV Last administered on 08/02/18at 04:13; Start 07/31/18 at 07:00; Stop 08/02/18 at 10:05; Status DC Isosorbide Dinitrate (Isordil) 10 mg TID@07,12,17 PO Last administered on 08/21/18at 06:39; Start 08/13/18 at 17:00; Stop 08/21/18 at 10:17; Status DC Isosorbide Dinitrate (Isordil) 20 mg TID@07,12,17 PO Last administered on 08/07 04/25at 06:14; Start 08/21/18 at 12:00; Stop 08/25/18 at 07:41; Status DC Isosorbide Dinitrate (Isordil) 30 mg TID@07,12,17 PO Last administered on 08/29/18at 06:29; Start 08/25/18 at 12:00 Lactobacillus Acidophilus (Bacid) 1 ea WM PO Last administered on 08/29/18at 08:38; Start 08/21/18 at 12:30 Levetiracetam 500 mg/Dextrose 105 ml @ 420 mls/hr Q12H IV Last administered on 08/12/18at 08:49; Start 08/05/18 at 09:00; Stop 08/12/18 at 09:12; Status DC Loperamide HCl (Imodium) 2 mg ASDIRECTED PRN PO DIARRHEA Last administered on 08/23/18at 12:00; Start 08/22/18 at 15:45; Stop 08/29/18 at 09:29; Status DC Methylprednisolone (SOLU medrol) 40 mg Q8H IV ; Start 08/27/18 at 06:00; Stop 08/27/18 at 06:45; Status DC Methylprednisolone (SOLUmedrol) 40 mg Q12H IV Last administered on 08/27/18at 08:36; Start 08/27/18 at 06:00; Stop 08/27/18 at 09:30; Status DC Metoclopramide HCl (REGLAN INJection) 5 mg Q8H IV Last administered on 08/11/18at 02:13; Start 08/06/18 at 02:00; Stop 08/11/18 at 09:27; Status DC Metoclopramide HCl (REGLAN INJection) 10 mg Q6H IV Last administered on 08/05/18at 17:52; Start 08/05/18 at 18:00; Stop 08/05/18 at 20:41; Status DC Metronidazole 500 mg/IV Miscellaneous Supplies 100 ml @ 100 mls/hr Q8H IV ; Start 08/29/18 at 11:00 Midazolam HCl (Versed) 2 mg Q15MP PRN IV AGITATION Last administered on 08/10/18at 18:33; Start 08/05/18 at 04:45; Stop 08/12/18 at 09:12; Status DC Midazolam HCl (Versed) 2 mg Q1HP PRN IV AGITATION Last administered on 08/05/18at 04:07; Start 08/02/18 at 21:00; Stop 08/05/18 at 04:43; Status DC Miscellaneous (Unresolved Clarification Entry) SEE LABEL COMMENTS DAILY XX ; Start 08/08/18 at 09:00; Stop 08/08/18 at 15:02; Status DC Miscellaneous (Unresolved Clarification Entry) SEE LABEL COMMENTS DAILY XX ; Start 08/29/18 at 09:00 Miscellaneous (Unresolved Clarification Entry) SEE LABEL COMMENTS DAILY XX ; Start 08/14/18 at 09:00; Stop 08/14/18 at 18:25; Status DC Morphine Sulfate (Morphine Sulfate Inj) 2 mg Q4HP PRN IV PAIN Last administered on 08/17/18at 08:53; Start 08/17/18 at 08:45; Stop 08/17/18 at 11:21; Status DC Morphine Sulfate (Morphine Sulfate Inj) 4 mg Q3HP PRN IV PAIN Last administered on 08/20/18at 06:17; Start 08/17/18 at 11:30; Stop 08/20/18 at 10:05; Status DC Nitroglycerin (Nitrostat (1/ 150)) 0.4 mg Q5MP PRN SL CHEST PAIN Last administered on 08/27/18at 06:25; Start 08/27/18 at 05:45 Nitroglycerin 25 mg/IV Miscellaneous Supplies 250 ml @ 3 mls/hr Q24H IV Last administered on 07/31/18at 05:01; Start 07/31/18 at 05:00; Stop 07/31/18 at 09:41; Status DC Non-Formulary Medication ( See Comment Field Below ) [facility]. DOSING ASDIRECTED XX ; Start 08/11/18 at 06:45; Stop 08/14/18 at 03:08; Status DC Non-Formulary Medication (Heparin Iv Rate Change Documentation ml/ Hr) ASDIRECTED XX ; Start 07/31/18 at 12:30; Stop 07/31/18 at 12:37; Status DC Non-Formulary Medication (Heparin Iv Rate Change Documentation ml/ Hr) ASDIRECTED XX Last administered on 08/02/18at 08:04; Start 07/31/18 at 12:45; Stop 08/03/18 at 21:34; Status DC Non-Formulary Medication (Insulin Iv Rate Change Documentation ml/ Hr) ASDIRECTED XX Last administered on 08/12/18at 02:52; Start 08/10/18 at 11:30; Stop 08/12/18 at 19:45; Status DC Non-Formulary Medication (Insulin Iv Rate Change Documentation ml/ Hr) ASDIRECTED XX ; Start 07/31/18 at 06:45; Stop 07/31/18 at 09:36; Status DC Non-Formulary Medication (Insulin Iv Rate Change Documentation ml/ Hr) ASDIRECTED XX ; Start 07/31/18 at 07:00; Stop 07/31/18 at 11:42; Status DC Non-Formulary Medication (Insulin Iv Rate Change Documentation ml/ Hr) ASDIRECTED XX Last administered on 08/02/18at 08:27; Start 07/31/18 at 11:45; Stop 08/02/18 at 10:05; Status DC Norepinephrine Bitartrate 16 mg/ Dextrose 500 ml @ 18.8 mls/hr Q24H IV Last administered on 08/10/18at 11:58; Start 08/05/18 at 00:00; Stop 08/12/18 at 14:59; Status DC Norepinephrine Bitartrate 8 mg/ Dextrose 500 ml @ 37.5 mls/hr [id number] IV Last administered on 07/31/18at 08:00; Start 07/31/18 at 07:51; Stop 07/31/18 at 19:59; Status DC Norepinephrine Bitartrate 8 mg/ Dextrose 500 ml @ 67.5 mls/hr Q7H25M IV Last administered on 08/04/18at 19:42; Start 07/31/18 at 20:00; Stop 08/04/18 at 21:04; Status DC Ondansetron HCl (ZOFRAN INJection) 4 mg Q6HP PRN IV NAUSEA OR VOMITING Last administered on 08/24/18at 18:28; Start 08/16/18 at 13:30 Oxycodone/ Acetaminophen (Percocet 5mg/ 325mg Tablet) 1 tab Q4HP PRN PO MILD/MODERATE PAIN (PS 1-7) Last administered on 08/20/18at 10:01; Start 08/18/18 at 09:45; Stop 08/20/18 at 10:05; Status DC Oxycodone/ Acetaminophen (Percocet 5mg/ 325mg Tablet) 2 tab Q6HP PRN PO SEVERE PAIN (PS 8-10) Last administered on 08/19/18at 21:01; Start 08/18/18 at 09:45; Stop 08/20/18 at 10:05; Status DC Pancrelipase (Creon-24) 1 ea WM PO Last administered on 08/21/18at 17:23; Start 08/21/18 at 18:00; Stop 08/22/18 at 07:31; Status DC Pancrelipase (Creon-24) 2 ea WM PO Last administered on 08/29/18at 08:39; Start 08/22/18 at 08:00 Pantoprazole Sodium (Protonix) 40 mg BID IV Last administered on 08/19/18at 21:00; Start 08/15/18 at 09:00; Stop 08/20/18 at 08:59; Status DC Pantoprazole Sodium (Protonix) 40 mg DAILY IV Last administered on 08/14/18at 09:18; Start 07/31/18 at 09:00; Stop 08/15/18 at 08:52; Status DC Piperacillin Sod/ Tazobactam Sod 3.375 gm/Dextrose 50 ml @ 50 mls/hr Q6H IV Last administered on 08/14/18at 18:09; Start 08/02/18 at 13:00; Stop 08/14/18 at 18:25; Status DC Piperacillin Sod/ Tazobactam Sod 4.5 gm/Dextrose 50 ml @ 50 mls/hr Q6H IV Last administered on 08/02/18at 05:26; Start 07/31/18 at 12:00; Stop 08/02/18 at 13:59; Status DC Propofol 1000 mg/ IV Miscellaneous Supplies 100 ml @ 5.25 mls/hr Q19H3M IV Last administered on 07/31/18at 16:56; Start 07/31/18 at 07:51; Stop 07/31/18 at 17:25; Status DC Propofol 1000 mg/ IV Miscellaneous Supplies 100 ml @ 5.25 mls/hr Q19H3M IV Last administered on 08/02/18at 16:59; Start 07/31/18 at 17:24; Stop 08/06/18 at 09:32; Status DC Propofol 1000 mg/ IV Miscellaneous Supplies 100 ml @ 17.33 mls/ hr Q5H47M IV Last administered on 07/31/18at 05:17; Start 07/31/18 at 05:45; Stop 07/31/18 at 08:07; Status DC Rosuvastatin Calcium (Crestor) 20 mg DAILY PO Last administered on 08/03/18at 09:16; Start 07/31/18 at 09:00; Stop 08/03/18 at 21:47; Status DC Sacubitril/ Valsartan (Entresto 24-26 Mg) 2 tab BID PO Last administered on 07/31/18at 20:08; Start 07/31/18 at 21:00; Stop 08/01/18 at 16:02; Status DC Sodium Bicarbonate 150 meq/Dextrose/Water 1,150 ml @ 100 mls/hr [id number] IV Last administered on 08/03/18at 10:51; Start 08/02/18 at 21:00; Stop 08/03/18 at 18:53; Status DC Sodium Bicarbonate (Sodium Bicarbonate) 50 meq STAT STAT IV Last administered on 07/31/18at 08:00; Start 07/31/18 at 09:02; Stop 07/31/18 at 09:04; Status DC Sodium Chloride 1,000 ml @ 3 mls/hr Q24H IV Last administered on 08/15/18at 21: 11; Start 08/12/18 at 23:00; Stop 08/16/18 at 17:07; Status DC Sodium Chloride 1,000 ml @ 3 mls/hr Q24H IV Last administered on 08/14/18at 00:20; Start 08/12/18 at 23:00; Stop 08/15/18 at 22:31; Status DC Sodium Chloride (Saline Lock Flush) 2 ml ASDIRECTED PRN IV SEE LABEL COMMENTS; Start 08/20/18 at 14:15 Sodium Chloride (Saline Lock Flush) 2 ml ASDIRECTED PRN IV SEE LABEL COMMENTS; Start 08/03/18 at 10:30; Stop 08/05/18 at 21:38; Status DC Sodium Chloride (Saline Lock Flush) 2 ml SLF IV Last administered on 08/29/18at 06:00; Start 08/20/18 at 22:00 Sodium Chloride (Saline Lock Flush) 2 ml SLF IV Last administered on 08/04/18at 06:27; Start 08/03/18 at 14:00; Stop 08/05/18 at 21:38; Status DC Sodium Chloride (Saline Lock Flush) 10 ml ASDIRECTED PRN IV SEE LABEL COMMENTS Last administered on 08/18/18at 19:49; Start 08/03/18 at 10:30; Stop 08/20/18 at 14:11; Status DC Sodium Chloride (Saline Lock Flush) 10 ml SLF IV Last administered on 08/20/18at 05:24; Start 08/03/18 at 14:00; Stop 08/20/18 at 14:11; Status DC Sodium Chloride (Saline Lock Flush) 10ML IN EACH SAILAJA... ASDIRECTED PRN IV SEE LABEL COMMENTS; Start 08/09/18 at 10:15; Status Cancel Sodium Chloride (Saline Lock Flush) 10ML IN EACH SAILAJA... ASDIRECTED PRN IV SEE LABEL COMMENTS; Start 08/03/18 at 12:30; Status Cancel Sodium Chloride (Saline Lock Flush) 10ML IN EACH SAILAJA... ASDIRECTED PRN IV SEE LABEL COMMENTS; Start 08/05/18 at 04:00; Status Cancel Sodium Chloride 200 meq/Sodium Acetate 40 meq/ Potassium Chloride 20 meq/ Calcium Gluconate 2381 mg/Insulin Human Regular 12 units/Amino Acids/ Dextrose 2,103.93 ml @ 70 mls/hr ONCE@1800 IV Last administered on 08/12/18at 18:00; Start 08/12/18 at 18:00; Stop 08/13/18 at 17:59; Status DC Sodium Chloride 200 meq/Sodium Acetate 40 meq/ Potassium Chloride 40 meq/ Potassium Phosphate 20 mmol/ Magnesium Sulfate 4.7 meq/Calcium Gluconate 2381 mg/ Multivitamins 10 ml/Chromium/ Copper/Manganese/ Seleni/Zn 1 ml/ Insulin Human Regular 35.7 units/Amino Acids/ Dextrose 2,133.0087 ml @ 70 mls/hr ONCE@1800 IV Last administered on 08/17/18at 18:38; Start 08/17/18 at 18:00; Stop 08/18/18 at 17:59; Status DC Sodium Chloride 200 meq/Sodium Acetate 40 meq/ Potassium Chloride 40 meq/ Potassium Phosphate 20 mmol/ Magnesium Sulfate 4.7 meq/Calcium Gluconate 2381 mg/ Multivitamins 10 ml/Chromium/ Copper/Manganese/ Seleni/Zn 1 ml/ Insulin Human Regular 35.7 units/Amino Acids/ Dextrose 2,133.0087 ml @ 70 mls/hr ONCE@1800 IV Last administered on 08/13/18at 17:50; Start 08/13/18 at 18:00; Stop 08/14/18 at 17:59; Status DC Sodium Chloride 200 meq/Sodium Acetate 40 meq/ Potassium Chloride 40 meq/ Potassium Phosphate 20 mmol/ Magnesium Sulfate 4.76 meq/Calcium Gluconate 2381 mg/ Insulin Human Regular 35.7 units/Amino Acids/ Dextrose 2,122.0237 ml @ 70 mls/hr ONCE@1800 IV Last administered on 08/25/18at 18:37; Start 08/25/18 at 18:00; Stop 08/26/18 at 17:59; Status DC Sodium Chloride 200 meq/Sodium Acetate 40 meq/ Potassium Chloride 40 meq/ Potassium Phosphate 20 mmol/ Magnesium Sulfate 4.76 meq/Calcium Gluconate 2381 mg/ Multivitamins 10 ml/Chromium/ Copper/Manganese/ Seleni/Zn 1 ml/ Insulin Human Regular 35.7 units/Amino Acids/ Dextrose 2,133.0237 ml @ 70 mls/hr ONCE@1800 IV Last administered on 08/27/18at 17:54; Start 08/27/18 at 18:00; Stop 08/28/18 at 17:59; Status DC Sodium Chloride 200 meq/Sodium Acetate 40 meq/ Potassium Chloride 40 meq/ P otassium Phosphate 20 mmol/ Magnesium Sulfate 4.8 meq/Calcium Gluconate 2380 mg/ Insulin Human Regular 36 units/ Amino Acids/ Dextrose 2,122.0267 ml @ 70 mls/hr ONCE@1800 IV Last administered on 08/18/18at 17:24; Start 08/18/18 at 18:00; Stop 08/19/18 at 12:16; Status DC Sodium Chloride 200 meq/Sodium Acetate 40 meq/ Potassium Chloride 40 meq/ Potassium Phosphate 20 mmol/ Magnesium Sulfate 4.8 meq/Calcium Gluconate 2380 mg/ Insulin Human Regular 36 units/ Amino Acids/ Dextrose 2,122.0267 ml @ 70 mls/hr ONCE@1800 IV Last administered on 08/26/18at 18:05; Start 08/26/18 at 18:00; Stop 08/27/18 at 17:59; Status DC Sodium Chloride 200 meq/Sodium Acetate 40 meq/ Potassium Chloride 40 meq/ Potas sium Phosphate 20 mmol/ Magnesium Sulfate 4.8 meq/Calcium Gluconate 2380 mg/ Multivitamins 10 ml/Chromium/ Copper/Manganese/ Seleni/Zn 1 ml/ Insulin Human Regular 36 units/ Amino Acids/ Dextrose 2,133.0267 ml @ 70 mls/hr ONCE@1800 IV Last administered on 08/24/18at 18:29; Start 08/24/18 at 18:00; Stop 08/25/18 at 17:59; Status DC Sodium Chloride 200 meq/Sodium Acetate 40 meq/ Potassium Chloride 40 meq/ Potassium Phosphate 20 mmol/ Magnesium Sulfate 4.8 meq/Calcium Gluconate 2381 mg/ Insulin Human Regular 36 units/ Amino Acids/ Dextrose 2,122.0367 ml @ 70 mls/hr ONCE@1800 IV Last administered on 08/28/18at 17:19; Start 08/28/18 at 18:00; Stop 08/29/18 at 17:59 Succinylcholine Chloride (Quelicin) 100 mg STAT STAT IV Last administered on 07/31/18at 05:13; Start 07/31/18 at 05:30; Stop 07/31/18 at 05:47; Status DC Tiotropium [place] (Spiriva Handihaler) 1 inhalation DAILY@08 INH Last administered on 08/28/18at 07:35; Start 08/27/18 at 08:00 Vancomycin HCl 1000 mg/IV Miscellaneous Supplies 1 each/ Dextrose 270 ml @ 270 mls/hr Q12H IV Last administered on 08/01/18at 20:49; Start 08/01/18 at 21:00; Stop 08/02/18 at 12:40; Status DC Vancomycin HCl 1000 mg/IV Miscellaneous Supplies 1 each/ Dextrose 270 ml @ 270 mls/hr Q24H IV ; Start 08/03/18 at 08:00; Stop 08/03/18 at 08:00; Status DC Vancomycin HCl 1000 mg/IV Miscellaneous Supplies 1 each/ Dextrose 270 ml @ 270 mls/hr Q8H IV Last administered on 08/01/18at 10:11; Start 07/31/18 at 11:00; Stop 08/01/18 at 18:15; Status DC Vasopressin 20 units/Sodium Chloride 500 ml @ 60 mls/hr Q8H20M IV Last administered on 08/08/18at 08:12; Start 08/02/18 at 15:00; Stop 08/12/18 at 14:59; Status DC Vecuronium [place] (Norcuron) 10 mg STAT STAT IV Last administered on 07/31/18at 05:27; Start 07/31/18 at 05:30; Stop 07/31/18 at 05:47; Status DC Allergies Coded Allergies: No Known Drug Allergy (Verified Allergy, Unknown, 11/28/16) Objective Physical Examination Examination GENERAL APPEARANCE: Was sleeping at the time that I get there. Continues to report of discomfort. SKIN: Warm and dry. LUNGS: [Clear to auscultation bilaterally. No wheezing appreciated]. HEART: [No chest wall abnormalities. Regular rate and rhythm with no murmurs appreciated]. ABDOMEN: Abdomen is somewhat distended though appears less so than it was last week. He is get tenderness over the lower abdominal midline less so at the epigastric area. Mild guarding over the lower midline. Relatively quiet bowel sounds. Vital Signs Vital Signs Date Time Temp Pulse Resp B/P (MAP) Pulse Ox O2 Delivery O2 Flow Rate FiO2 08/29/18 09:00 2.0 08/29/18 08:41 80 24 142/75 97 Nasal Cannula 08/29/18 08:00 97.5 08/27/18 09:00 60 I&Os I&O- Last 24 Hours up to 6 AM 08/29/18 06:00 Intake Total 2560 ml Output Total 3400 ml Balance -840 ml Laboratory Data Labs 24H Laboratory Tests 2 08/28/18 12:51: Bedside Glucose (Misc Panel) 216H 08/28/18 17:10: Bedside Glucose (Misc Panel) 234H 08/29/18 01:20: Bedside Glucose (Misc Panel) 235H 08/29/18 04:49: Nucleated Red Blood Cells % (auto) 0.2H, Anion Gap 9, Glomerular Filtration Rate 18.9L, Blood Urea Nitrogen 49H, Creatinine 3.67H, Sodium Level 137, Potassium Level 4.3, Chloride Level 104, Carbon Dioxide Level 24, Calcium Level 8.5, Aspartate Amino Transf (AST/SGOT) 18, Alanine Aminotransferase (ALT/SGPT) 34, Alkaline Phosphatase 128H, Total Bilirubin 0.4, Total Protein 6.5, Albumin 1.8L, Magnesium Level 1.8, C-Reactive Protein, Quantitative 4.91H, Albumin/Globulin Ratio 0.38L 08/29/18 09:25: Erythrocyte Sedimentation Rate 68H, Lactic Acid Level 1.2, Total Creatine Kinase 15L, Creatine Kinase MB 3.0, Creatine Kinase MB Relative Index 20.00H, Troponin I 0.10#, Amylase Level 21L, Lipase 162 CBC/BMP Laboratory Tests 08/29/18 04:49 Red Blood Count 3.43 L, Mean Corpuscular Volume 94.5, Mean Corpuscular Hemoglobin 29.2, Mean Corpuscular Hemoglobin Concent 30.9 L, Red Cell Distribution Width 14.8 H, Calcium Level 8.5, Aspartate Amino Transf (AST/SGOT) 18, Alanine Aminotransferase (ALT/SGPT) 34, Alkaline Phosphatase 128 H, Total Bilirubin 0.4, Total Protein 6.5, Albumin 1.8 L Microbiology Microbiology 08/21/18 Stool Lactoferrin - Final, Complete Imaging Studies CT abdomen and pelvis CT FINDINGS: 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 Bilateral pleural effusions are again seen with extensive atelectatic changes in the lower lobes of the lungs. This finding is essentially unchanged. Significant peripancreatic small bowel mesenteric infiltration and fluid density changes persist consistent with acute pancreatitis. There is no evidence to suggest a new hemorrhagic collection or quynh abscess formation. The left peripancreatic fluid collection measured 5 cm on August 23. This is somewhat improved measuring 3.8 cm today. There is minimal ascites again noted essentially unchanged. In the pelvis, there is some ascitic fluid in the posterior pelvic reflections and fluid extends to the right inguinal hernia into the right scrotum. This is unchanged as well. Impression Subacute pancreatitis, severe - stable ?enteritis ?sigmoid colitis ileus Patient continues to complain of discomfort and has poor oral intake and remains on TPN. He repeat CT scan of the abdomen and pelvis today. Oral contrast a tract went through to the colon is present in the colon. In terms of the pancreatitis is fluid collection seems to be better likewise are stable inflammatory findings surrounding the pancreas. His CRP continues to go down 4.9 today. He is pe rsistent leukocytosis to 20,000. He has a prominent sigmoid colon which is distended. I noticed this on the x-ray done last Monday to and coming back into the CT last week. There is no gross area of inflammation though there is some swelling along the mesentery of the small bowel. He is tender right at 40 expect the distended sigmoid colon this which could be just from the distention. This could also be some localized ileus versus infectious versus ischemic colitis. He was positive for leukocyte esterase in his stools likewise occult blood. Though I do not advocate putting him on antibiotics with regards to pancreatitis it may be prudent to put him on antibiotics for coverage for possible colitis thus I will place him on ciprofloxacin and metronidazole. I'll also hold off on oral feeding for now. I discussed with him the results of the CAT scan and plan therapy. Plan / VTE VTE Prophylaxis Ordered?: Yes JUAN DAVID VANCE MD Aug 29, 2018 11:25
[2018-08-29] MEDS: metroNIDAZOLE 500 MG in APPROPRIATE DILUENT 1 EA IV SCH ×2 (12:07→18:02)
[2018-08-29] MEDS: CIPROFLOXACIN 200 MG in APPROPRIATE DILUENT 1 EA IV SCH ×2 (14:30→23:49)
[2018-08-29] MEDS ORDERED: FAT EMULSION IV 20% 500 ML IV SCH (18:00)
[2018-08-29] MEDS ORDERED: SODIUM ACETATE IV SCH ×10 (18:00)
[2018-08-29] MEDS ORDERED: [UNRECOGNIZED DRUG - OTHER] IV SCH ×10 (18:00)
[2018-08-29] MEDS ORDERED: SODIUM CHLORIDE IV SCH ×10 (18:00)
--- NOTE | 2018-08-29 22:11 | IPN ---
DATE: 08/29/2018 SUBJECTIVE: Patient was seen and examined this morning at the bedside in the intensive care unit (ICU). He continues to complain of significant abdominal pain and discomfort in the lower quadrants bilaterally and is having minimal oral intake. He remains TPN dependent. He tolerated dialysis well yesterday with 3 liters of fluid removed. His urine output seems to be slowly picking up. VITAL SIGNS: Temperature 97.8, pulse 75, respiratory rate 20, blood pressure 153/82, saturating 97% on 2 liters nasal cannula. Intake yesterday was 2710 and urine output yesterday was 500, dialysis removed 3000, net negative 790. Weight on the bed scale was 96.9 kg. GENERAL: Patient is seen lying in bed in the intensive care unit (ICU). Drowsy but easily arousable. Oriented. Comfortable and in no acute distress. Extraocular muscles are intact. Tongue is moist. Nasal cannula is in place. There is a right IJ tunneled PermaCath. CARDIAC: S1, S2, regular rate and rhythm. Trace edema in the extremities. LUNGS: Diminished breath sounds at the bases. No tachypnea. ABDOMEN: Soft. There are bowel sounds. He grimaces to even mild palpation of the lower quadrants. NEUROLOGICAL: He is oriented and conversational. PSYCHIATRIC: He appears depressed. LABORATORIES: White count 20.5, hemoglobin 10.0, platelets 451. Sodium 137, potassium 4.3, bicarbonate 24. C-reactive protein 4.9. IMAGING: CT of the abdomen and pelvis on 08/29/2018 without contrast showed some improvement in the fluid collection near the pancreatic tail. There are bilateral pleural effusions. There are atelectatic changes in the lower lobes of the lungs. INPATIENT MEDICATIONS: He continues on total parenteral nutrition (TPN). He was started today on IV Cipro and IV Flagyl. I note his pancreatic replacement enzymes are stopped. The remainder of medications are unchanged from prior. PROBLEMS: 1. Oliguric renal failure in the setting of [id number] myocardial infarction (NSTEMI) cardiac arrest and shock. Patient remains dialysis dependent at present. There is hypervolemia on examination. There are pleural effusions present. He was dialyzed yesterday with 3 liters of fluid removed, which he tolerated without issue. He continues to have significant intake from the TPN. I will plan to dialyze him back to back on and Monday. We will continue to monitor for signs of renal recovery. It does look like his urine output is slowly starting to increase. 2. Abdominal pain, pancreatitis, sigmoid colitis. Repeat CT scan noted. The patient is still not tolerating much oral intake at all. He remains TPN dependent. General surgery evaluated him again. He was started on IV Cipro and IV Flagyl for his colitis. His C-reactive protein level came down. His leukocytosis persists. Defer to primary and surgical team. 3. Anemia, status post upwards of 6 units of packed red blood cells. His hemoglobin is stable at 10. He continues on Aranesp and complete blood count (CBC) monitoring. MTDD
[2018-08-30] MEDS: HYDROMORPHONE HCL 0.5 MG/ 0.5 ML SYRINGE (J1170 PER 1) IV PRN ×8 (01:05→23:49)
[2018-08-30] MEDS: metroNIDAZOLE 500 MG in APPROPRIATE DILUENT 1 EA IV SCH ×3 (02:59→18:01)
[2018-08-30 06:00] VITALS: BP 158/83
[2018-08-30] MEDS: SLF 3 ML SYR IV SCH ×3 (06:03→22:00)
[2018-08-30] MEDS: ISOSORBIDE DIN. (ISORDIL) 30 MG TAB PO SCH ×3 (06:04→17:28)
[2018-08-30 06:05] LABS: HEMATOCRIT 30.4 % (42.0-52.0); HEMOGLOBIN 9.6 g/dl (13.5-17.5); MEAN CORPUSCULAR HEMOGLOBIN 29.2 pg (27.0-33.0); MEAN CORPUSCULAR HGB CONC 31.6 g/dl (32.0-36.5); MEAN CORPUSCULAR VOLUME 92.4 fl (80.0-96.0); PLATELET COUNT, AUTOMATED 425 10^3/uL (150-450); RED BLOOD COUNT 3.29 10^6/uL (4.30-6.10); WHITE BLOOD COUNT 20.4 10^3/uL (4.0-10.0)
[2018-08-30] MEDS: CARVedilol 6.25 MG TAB PO SCH ×2 (06:05→20:32)
[2018-08-30] MEDS: CLOPIDOGREL 75 MG TAB PO SCH (06:05)
[2018-08-30] MEDS: AMIODARONE 200 MG TAB (PACERONE) PO SCH (06:05)
[2018-08-30] MEDS: SODIUM CHLORIDE 0.9% INJ 10 ML SYR IV SCH (06:06)
[2018-08-30 06:27] LABS: ALBUMIN 1.8 GM/DL (3.2-5.2); BILIRUBIN,TOTAL 0.4 MG/DL (0.2-1.0); C REACTIVE PROTEIN QUANTITATIV 5.73 MG/DL (0.00-0.30); CALCIUM LEVEL 8.9 MG/DL (8.5-10.1); CREATININE FOR GFR 3.97 MG/DL (0.70-1.30); GLOMERULAR FILTRATION RATE 17.2 (>60); MAGNESIUM LEVEL 1.7 MG/DL (1.8-2.4); POTASSIUM SERUM 4.2 MEQ/L (3.5-5.1); PREALBUMIN 22.2 MG/DL (20.0-40.0); TOTAL PROTEIN 6.4 GM/DL (6.4-8.2)
[2018-08-30] MEDS: HumaLOG INSULIN (NovoLOG) PER UNIT SC SCH ×5 (06:38→23:55)
[2018-08-30] MEDS: TIOTROPIUM INHALER/CAPSULE (SPIRIVA) INH SCH (07:21)
[2018-08-30] MEDS: SYMBICORT 160/4.5MCG INHALER 6GM INH SCH ×2 (07:21→21:40)
[2018-08-30] MEDS ORDERED: HEPARIN 1,000 UNITS/ML 10ML VIAL (FOR RADIOLOGY& DIALYSIS ONLY) XX ONE (11:00)
[2018-08-30] MEDS ORDERED: HEPARIN 1,000 UNITS/ML 10ML VIAL (FOR RADIOLOGY& DIALYSIS ONLY) IV ONE (11:00)
--- NOTE | 2018-08-30 12:42 | IPNPDOC ---
Date Seen The patient was seen on 08/30/18. Progress Note SUBJECTIVE: Patient continues to have severe abdominal pain in the bilateral lower quadrants, decreased appetite without fever or chills. despite resumptionof cipro and flagyl 08/29/18, no change in white count. lactic acid is wnl. Surgery has no further recommendations. due to inability to tolerate oral diet with increasing abdominal pain, TPN is continued. PHYSICAL EXAMINATION: GENERAL: The patient in no respiratory distress HEENT: Normocephalic, atraumatic. NECK: Supple. CARDIAC: Regular. S1, S2. 2/6 systolic murmur. ABDOMEN: Soft, diffuse tenderness b/l LQ. increased distension. Positive bowel sounds. PULMONARY: diminished at bases EXTREMITIES: 1+ edema. ASSESSMENT AND PLAN: This is a 47-year-old male patient with underlying medical history of coronary artery disease with coronary artery bypass graft (CABG) in 2000, PCI with multiple stents. Most recent cardiac catheterization two years ago, history of congestive heart failure (CHF) with reduced ejection fraction, has a biventricular pacemaker defibrillator, insulin-dependent diabetes, complicated with diabetic neuropathy, chronic obstructive pulmonary disease (COPD), gastroesophageal reflux disease (GERD), hypertension, dyslipidemia, benign prostatic hypertrophy (BPH), history of cerebrovascular accident (CVA), history of methicillin-resistant Staphylococcus aureus (MRSA), sternal osteomyelitis, degenerative joint disease was initially presented to the hospital with shortness of breath and chest tightness. On presentation, the patient was diagnosed with non-ST segment elevation myocardial infarction (NSTEMI). Hospital course complicated with intubation, nitroglycerine drip with also hyperglycemia require insulin drip, complicated with hypotension, shock liver, as well as pancreatitis and also persistent leukocytosis, bonita urea and acute on chronic renal failure. PROBLEMS: Acute severe pancreatitis . Diet not tolerated with increasing abdominal pain. reviewed repeat 08/29/18 CT scan abd/pelvis.Surgery has been consulted. The patient has been on Dilaudid for pain medication. pain management consult. held Pancreatic enzymes while npo Clostridium difficile work up has been negative. d/w Surgery, TPN given poor po. no fever but white count is still unchanged. SOB, resolved. off bipap. abg improved. pulmonary consulted, Symbicort, neb, spiriva Abdominal truncal rash as per infection disease, Dr. Hector, likely secondary to hydralazine. The patient's hydralazine has been on stopped . resolving Acute on chronic oliguric renal failure in the setting of ACS/NSTEMI, currently end-stage renal requiring dialysis. Further management as per nephrology. Persistent leukocytosis, was treated with broad-spectrum antibiotics and antifungal including Diflucan, Zosyn and vancomycin. Sputum culture showed Streptococcus agalactiae. Infectious disease has been consulted. Presently, the patient were discontinued.CRP improved. cipro flagyl restarted by surgery 08/29/18 due to sigmoid thickening and increasing abd pain and distension Colitis/Ileus cipro flagyl 08/29/18 resumed by surgery due to sigmoid thickening onrepeat CT 08/29/18 and increasing abd pain and distention. npo on TPN> Acute coronary syndrome with non-ST segment elevation myocardial infarction (NSTEMI). Continue aspirin and Plavix, Coreg, isosorbide dinitrate. Hydralazine has been on hold given possible reaction. Isosorbide dinitrate has been increased. Automatic implantable cardioverted defibrillator (AICD) has been turned back on. Appreciate Dr. Giordano's input. As per cardiology, patient not a candidate for cardiac intervention in current condition Acute severe pancreatitis, nausea and vomiting, resolved. abd pain and diarrhea. Appreciate Dr. Nolasco's surgery consult. Diet not tolerated. TPN. repeat ct abd reviewed 08/29/18 Status post shock liver secondary to non-ST segment elevation myocardial infarction (NSTEMI) and congestive heart failure (CHF), currently improved. Generalized weakness and deconditioning. Protein calorie malnutrition. Diet as tolerated. TPN, diet as tolerated History of gastroesophageal reflux disease (GERD). Continue proton pump inhibitor (PPI). Diabetes mellitus. insulin in TPN. and Q6hr protocol. Adjust as needed. Acute on chronic anemia secondary to anemia of chronic disease. Also possible gastrointestinal (GI) bleed, status post 5 units packed red blood cells. Monitor complete blood count (CBC). Consulted GI given recent acute coronary syndrome. The patient is not a candidate for intervention at this time. Continue to monitor. Protein calorie malnutrition. start total parenteral nutrition (TPN) Diet as tolerated. Dietary consult. Ensure clear. Deep vein thrombosis (DVT) prophylaxis. teds and scd given concerns of GI bleed VS, I&O, 24H, Fishbone Vital Signs/I&O Vital Signs Date Time Temp Pulse Resp B/P (MAP) Pulse Ox O2 Delivery O2 Flow Rate FiO2 08/30/18 07:46 17 Nasal Cannula 08/30/18 06:05 76 08/30/18 06:04 158/83 08/30/18 06:00 98.6 95 2.0 08/27/18 09:00 60 I&O- Last 24 Hours up to 6 AM 08/30/18 06:00 Intake Total 2020 ml Output Total 750 ml Balance 1270 ml Laboratory Data 24H LABS Laboratory Tests 2 08/29/18 09:25: Erythrocyte Sedimentation Rate 68H, Lactic Acid Level 1.2, Total Creatine Kinase 15L, Creatine Kinase MB 3.0, Creatine Kinase MB Relative Index 20.00H, Troponin I 0.10#, Amylase Level 21L, Lipase 162 08/29/18 11:58: Bedside Glucose (Misc Panel) 242H 08/29/18 17:50: Bedside Glucose (Misc Panel) 248H 08/29/18 23:54: Bedside Glucose (Misc Panel) 206H 08/30/18 05:26: Nucleated Red Blood Cells % (auto) 0.2H, Anion Gap 13, Glomerular Filtration Rate 17.2L, Blood Urea Nitrogen 67H, Creatinine 3.97H, Sodium Level 142, Potassium Level 4.2, Chloride Level 109H, Carbon Dioxide Level 20L, Calcium Level 8.9, Aspartate Amino Transf (AST/SGOT) 13, Alanine Aminotransferase (ALT/SGPT) 21, Alkaline Phosphatase 121H, Total Bilirubin 0.4, Total Protein 6.4, Albumin 1.8L, Magnesium Level 1.7L, C-Reactive Protein, Quantitative 5.73H, Albumin/Globulin Ratio 0.39L, Prealbumin 22.2 CBC/BMP Laboratory Tests 08/30/18 05:26 Red Blood Count 3.29 L, Mean Corpuscular Volume 92.4, Mean Corpuscular Hemoglobin 29.2, Mean Corpuscular Hemoglobin Concent 31.6 L, Red Cell Distribution Width 14.8 H, Calcium Level 8.9, Aspartate Amino Transf (AST/SGOT) 13, Alanine Aminotransferase (ALT/SGPT) 21, Alkaline Phosphatase 121 H, Total Bilirubin 0.4, Total Protein 6.4, Albumin 1.8 L Microbiology Microbiology 08/21/18 Stool Lactoferrin - Final, Complete JAVAD,KEM C. MD Aug 30, 2018 08:17
--- NOTE | 2018-08-30 13:45 | IPN ---
DATE: 08/30/2018 SUBJECTIVE: Patient seen and examined this morning on dialysis receiving his scheduled treatment. He denies any acute events overnight. Denies shortness of breath at rest. Still having significant abdominal pain and discomfort and minimal oral intake. He continues on total parenteral nutrition (TPN). His urine output is noted to be improving as compared to prior. He made almost a liter of urine yesterday, and the interdialytic rise in creatinine also seem to be improving. VITAL SIGNS: Temperature 98.6, pulse 76, respiratory rate 19, blood pressure 158/83, saturating 95% on 2 liters nasal cannula. Intake yesterday was 1820. Urine output yesterday was 950. Goal fluid removal on dialysis today is 3 liters. Weight on the bed scale is 80.8 kg, which is very different from prior and may be inaccurate. GENERAL: Patient is seen on dialysis, receiving his treatment, in no acute distress, oriented. Extraocular muscles are intact. Tongue is moist. Nasal cannula is in place. The right internal jugular (IJ) tunneled PermaCath is in use. He also has a left-sided line. CARDIAC: S1, S2, regular rate. LUNGS: Diminished breath sounds at the bases. Otherwise, clear. ABDOMEN: Soft and tender to palpation in the bilateral lower quadrants. EXTREMITIES: Show trace edema. NEUROLOGIC: He is oriented, conversational. PSYCHIATRIC: He appears depressed. LABS: Sodium 142, potassium 4.2, bicarbonate 20. C-reactive protein 5.7. Hemoglobin 9.6, white count 20. INPATIENT MEDICATIONS: Patient continues on IV ciprofloxacin and Flagyl which was started yesterday. He continues on total parenteral nutrition (TPN). Remainder of medications are unchanged from prior. PROBLEMS: 1. Oliguric renal failure now converted to nonoliguric renal failure in the setting of prior non-ST elevation myocardial infarction (OK), cardiac arrest and shock. He made almost a liter of urine yesterday. He is still having a rise in the interdialytic creatinine, but it is to a lesser degree than previously. He is hypervolemic on exam. There are pleural effusions. Goal fluid removal with dialysis today is 3 liters. Depending on his volume status I may dialyze him again tomorrow. We will continue to monitor for signs of renal recovery. 2. Abdominal pain, pancreatitis, sigmoid colitis, as per surgery he is still not tolerating oral intake. He still has significant abdominal pain. His C-reactive protein (CRP) slightly bumped upwards. He was started on IV Cipro and Flagyl yesterday by surgery for his colitis. His white count has been at around 20,000 for the past 3 days. 3. Anemia with questionable prior gastrointestinal (GI) bleed, status post 6 units of packed red blood cells, hemoglobin is stable at 10, and he continues on Aranesp with dialysis. 4. Hypertension. Blood pressures are acceptable and I am not making any changes to his current regimen.
[2018-08-30 14:00] VITALS: BP 136/75
[2018-08-30] MEDS: CIPROFLOXACIN 200 MG in APPROPRIATE DILUENT 1 EA IV SCH ×2 (14:45→23:55)
[2018-08-30 16:51] VITALS: BP 142/82
--- NOTE | 2018-08-30 17:01 | CR ---
DATE OF CONSULTATION: 08/30/2018 CHIEF COMPLAINT: 1. Abdominal pain. 2. Neuropathy. REFERRING PROVIDER: Dr. Jackson. We were asked to come see Dae again to evaluate for uncontrolled pain. History of multiple comorbidities. In review of his medications, I would recommend a trial of Nucynta 75 mg by mouth with a small sip of water every 6 hours either four times a day or every 6 hours as needed for pain. I would use this for pain levels of 5-8 over 10 visual analog scale (VAS). Would continue with use of intravenous (IV) Dilaudid but consider increasing the dose to 0.9 mg intravenous (IV) every 3 hours for severe pain episodes of 8-[address] Jackson and I spoke about his situation earlier, and she will consult with gastroenterology and nephrology before initiating any of these changes. Nucynta should have less propensity for gastrointestinal (GI) motility problems. Please let me know if I can be of further assistance.
[2018-08-30] MEDS ORDERED: SODIUM CHLORIDE IV SCH ×8 (18:00)
[2018-08-30] MEDS ORDERED: FAT EMULSION IV 20% 500 ML IV SCH (18:00)
[2018-08-30] MEDS ORDERED: [UNRECOGNIZED DRUG - OTHER] IV SCH ×8 (18:00)
[2018-08-30] MEDS ORDERED: SODIUM ACETATE IV SCH ×8 (18:00)
[2018-08-30 22:00] VITALS: BP 136/72
[2018-08-31] VITALS (11 sets, daily range): BP systolic 134–155; BP diastolic 79–103
[2018-08-31] MEDS: metroNIDAZOLE 500 MG in APPROPRIATE DILUENT 1 EA IV SCH ×3 (03:20→20:16)
[2018-08-31] MEDS: CLOPIDOGREL 75 MG TAB PO SCH (05:29)
[2018-08-31] MEDS: AMIODARONE 200 MG TAB (PACERONE) PO SCH (05:30)
[2018-08-31] MEDS: ISOSORBIDE DIN. (ISORDIL) 30 MG TAB PO SCH ×3 (05:30→16:06)
[2018-08-31] MEDS: CARVedilol 6.25 MG TAB PO SCH ×2 (05:31→22:02)
[2018-08-31] MEDS: HYDROMORPHONE HCL 0.5 MG/ 0.5 ML SYRINGE (J1170 PER 1) IV PRN ×3 (05:32→16:05)
[2018-08-31] MEDS: SODIUM CHLORIDE 0.9% INJ 10 ML SYR IV SCH (05:32)
[2018-08-31] MEDS: SLF 3 ML SYR IV SCH ×3 (05:34→22:03)
[2018-08-31 06:07] LABS: HEMATOCRIT 30.1 % (42.0-52.0); HEMOGLOBIN 9.3 g/dl (13.5-17.5); MEAN CORPUSCULAR HEMOGLOBIN 29.5 pg (27.0-33.0); MEAN CORPUSCULAR HGB CONC 30.9 g/dl (32.0-36.5); MEAN CORPUSCULAR VOLUME 95.6 fl (80.0-96.0); PLATELET COUNT, AUTOMATED 394 10^3/uL (150-450); RED BLOOD COUNT 3.15 10^6/uL (4.30-6.10); WHITE BLOOD COUNT 19.3 10^3/uL (4.0-10.0)
[2018-08-31 06:30] LABS: ALBUMIN 1.7 GM/DL (3.2-5.2); BILIRUBIN,TOTAL 0.3 MG/DL (0.2-1.0); C REACTIVE PROTEIN QUANTITATIV 7.33 MG/DL (0.00-0.30); CALCIUM LEVEL 8.9 MG/DL (8.5-10.1); CREATININE FOR GFR 2.69 MG/DL (0.70-1.30); MAGNESIUM LEVEL 1.8 MG/DL (1.8-2.4); POTASSIUM SERUM 4.4 MEQ/L (3.5-5.1); TOTAL PROTEIN 6.1 GM/DL (6.4-8.2)
[2018-08-31] MEDS: HumaLOG INSULIN (NovoLOG) PER UNIT SC SCH ×3 (06:55→19:17)
[2018-08-31] MEDS: SYMBICORT 160/4.5MCG INHALER 6GM INH SCH ×2 (07:10→19:57)
[2018-08-31] MEDS: TIOTROPIUM INHALER/CAPSULE (SPIRIVA) INH SCH (07:10)
[2018-08-31] MEDS ORDERED: SIMETHICONE 80 MG CHEW TAB PO ONE (07:15)
[2018-08-31] MEDS ORDERED: METOCLOPRAMIDE INJ 10MG/2ML VIAL (J2765) IV ONE (07:30)
--- NOTE | 2018-08-31 08:26 | IPNPDOC ---
Date Seen The patient was seen on 08/31/18. Progress Note SUBJECTIVE: Pt requested pain management re-consultation due to increasing abdominal pain rated at 8-10/10 at times. Per Surgery, may benefit from IV toradol, but refrained from NSAIDs due to recent SC, heme positive stool, and renal failure. Pain mgt recommended increasing dilaudid to 0.9 mg iv q3hprn for severe pain, and pt was agreeable. He c/o yesterday of "a shock in my chest,"but telemetry overnight was unremarkable, and he currently denies any chest pain, pressure,tightness, lightheadedness, dizziness, palpitations. He continues to have diffuse abd pain worse inthe b/l LQ, without nausea, or vomiting. Still on TPN. npo except for meds. afebrile overnight, and unchanged white count to 19 today still oncipro and flagyl. PHYSICAL EXAMINATION: GENERAL: The patient in no respiratory distress HEENT: Normocephalic, atraumatic. NECK: Supple. CARDIAC: Regular. S1, S2. 2/6 systolic murmur. ABDOMEN: Soft, diffuse tenderness b/l LQ. increased distension. Positive bowel sounds. PULMONARY: diminished at bases EXTREMITIES: 1+ edema. ASSESSMENT AND PLAN: This is a 47-year-old male patient with underlying medical history of coronary artery disease with coronary artery bypass graft (CABG) in 2000, PCI with multiple stents. Most recent cardiac catheterization two years ago, history of congestive heart failure (CHF) with reduced ejection fraction, has a biventricular pacemaker defibrillator, insulin-dependent diabetes, complicated with diabetic neuropathy, chronic obstructive pulmonary disease (COPD), gastroesophageal reflux disease (GERD), hypertension, dyslipidemia, benign prostatic hypertrophy (BPH), history of cerebrovascular accident (CVA), history of methicillin-resistant Staphylococcus aureus (MRSA), sternal osteomyelitis, degenerative joint disease was initially presented to the hospital with shortness of breath and chest tightness. On presentation, the patient was diagnosed with non-ST segment elevation myocardial infarction (NSTEMI). Hospital course complicated with intubation, nitroglycerine drip with also hyperglycemia require insulin drip, complicated with hypotension, shock liver, as well as pancreatitis and also persistent leukocytosis, bonita urea and acute on chronic renal failure. PROBLEMS: Acute severe pancreatitis . Diet not tolerated with increasing abdominal pain. reviewed repeat 08/29/18 CT scan abd/pelvis.Surgery has been consulted. The patient has been on Dilaudid for pain medication. pain management consult. held Pancreatic enzymes while npo Clostridium difficile work up has been negative. d/w Surgery, TPN given poor po. no fever but white count is still unchanged. SOB, resolved. off bipap. abg improved. pulmonary consulted, Symbicort, neb, spiriva Abdominal truncal rash as per infection disease, Dr. Hector, likely secondary to hydralazine. The patient's hydralazine has been on stopped . resolving Acute on chronic oliguric renal failure in the setting of ACS/NSTEMI, currently end-stage renal requiring dialysis. Further management as per nephrology. Persistent leukocytosis, was treated with broad-spectrum antibiotics and antifungal including Diflucan, Zosyn and vancomycin. Sputum culture showed Streptococcus agalactiae. Infectious disease has been consulted. Presently, the patient were discontinued.CRP improved. cipro flagyl restarted by surgery 08/29/18 due to sigmoid thickening and increasing abd pain and distension Colitis/Ileus cipro flagyl 08/29/18 resumed by surgery due to sigmoid thickening onrepeat CT 08/29/18 and increasing abd pain and distention. npo on TPN> Acute coronary syndrome with non-ST segment elevation myocardial infarction (NSTEMI). Continue aspirin and Plavix, Coreg, isosorbide dinitrate. Hydralazine has been on hold given possible reaction. Isosorbide dinitrate has been increased. Automatic implantable cardioverted defibrillator (AICD) has been turned back on. Appreciate Dr. Giordano's input. As per cardiology, patient not a candidate for cardiac intervention in current condition Acute severe pancreatitis, nausea and vomiting, resolved. abd pain and diarrhea. Appreciate Dr. Nolasco's surgery consult. Diet not tolerated. TPN. repeat ct abd reviewed 08/29/18 Status post shock liver secondary to non-ST segment elevation myocardial infarction (NSTEMI) and congestive heart failure (CHF), currently improved. Generalized weakness and deconditioning. Protein calorie malnutrition. Diet as tolerated. TPN, diet as tolerated History of gastroesophageal reflux disease (GERD). Continue proton pump inhibitor (PPI). Diabetes mellitus. insulin in TPN. and Q6hr protocol. Adjust as needed. Acute on chronic anemia secondary to anemia of chronic disease. Also possible gastrointestinal (GI) bleed, status post 5 units packed red blood cells. Monitor complete blood count (CBC). Consulted GI given recent acute coronary syndrome. The patient is not a candidate for intervention at this time. Continue to monitor. Protein calorie malnutrition. start total parenteral nutrition (TPN) Diet as tolerated. Dietary consult. Ensure clear. Deep vein thrombosis (DVT) prophylaxis. teds and scd given concerns of GI bleed VS, I&O, 24H, Fishbone Vital Signs/I&O Vital Signs Date Time Temp Pulse Resp B/P (MAP) Pulse Ox O2 Delivery O2 Flow Rate FiO2 08/31/18 06:00 97.3 80 19 144/82 (102) 98 Nasal Cannula 2.0 08/31/18 05:32 60 I&O- Last 24 Hours up to 6 AM 08/31/18 05:59 Intake Total 1480 ml Output Total 3300 ml Balance -1820 ml Laboratory Data 24H LABS Laboratory Tests 2 08/30/18 13:21: Bedside Glucose (Misc Panel) 205H 08/30/18 17:11: Bedside Glucose (Misc Panel) 228H 08/30/18 23:46: Bedside Glucose (Misc Panel) 241H 08/31/18 05:20: Nucleated Red Blood Cells % (auto) 0.2H, Anion Gap 9, Glomerular Filtration Rate 27.0L, Blood Urea Nitrogen 40H, Creatinine 2.69H, Sodium Level 139, Potassium Level 4.4, Chloride Level 111H, Carbon Dioxide Level 19L, Calcium Level 8.9, Aspartate Amino Transf (AST/SGOT) 12, Alanine Aminotransferase (ALT/SGPT) 18, Alkaline Phosphatase 114, Total Bilirubin 0.3, Total Protein 6.1L, Albumin 1.7L, Magnesium Level 1.8, C-Reactive Protein, Quantitative 7.33H, Albumin/Globulin Ratio 0.39L CBC/BMP Laboratory Tests 08/31/18 05:20 Red Blood Count 3.15 L, Mean Corpuscular Volume 95.6, Mean Corpuscular Hemoglobin 29.5, Mean Corpuscular Hemoglobin Concent 30.9 L, Red Cell Distribution Width 15.0 H, Calcium Level 8.9, Aspartate Amino Transf (AST/SGOT) 12, Alanine Aminotransferase (ALT/SGPT) 18, Alkaline Phosphatase 114, Total Bilirubin 0.3, Total Protein 6.1 L, Albumin 1.7 L Microbiology Microbiology 08/21/18 Stool Lactoferrin - Final, Complete KEM FARNSWORTH MD Aug 31, 2018 08:26
--- NOTE | 2018-08-31 08:40 | REPIR ---
DATE OF PROCEDURE: 08/24/2018 ATTENDING SURGEON: Dr. Gaston Sanon CONSTRUCTION STONEMASON: [place] and Sylvia Gallardo PREOPERATIVE DIAGNOSIS: Poor IV access, end-stage renal disease, requirement for total parenteral nutrition (TPN). POSTOPERATIVE DIAGNOSIS: Poor IV access, end-stage renal disease, requirement for total parenteral nutrition (TPN). PROCEDURE: Ultrasound-guided left internal jugular vein cannulation, fluoroscopic guided left internal jugular vein 27 cm dual-lumen Beasley catheter placement. INDICATION: The patient is a 47-year-old male with end-stage renal disease and who requires access for oysterman TPN installation at home and will undergo placement of a left internal jugular vein dual-lumen Beasley tunneled central venous catheter. The procedure was described and explained to the patient in detail including drawing of pictures demonstrating the procedure and the pertinent anatomy. Risks, benefits and alternative treatment options were discussed with the patient. Alternative treatment options included, but were not limited to, no intervention. Benefits included but were not limited to, placement of a tunneled central venous catheter for access for installation of TPN and drawing of blood for laboratory evaluation. Risks included but were not limited to, infection, bleeding, pneumothorax, hemothorax, possible need for open surgical intervention, adverse reaction to the prepping and draping materials, adverse reaction to the local anesthetic and sedation medications, possibility for transfusion of blood products, cerebrovascular accident, myocardial infarction, pulmonary embolus, deep vein thrombosis (DVT), loss of limb, loss to life, poor outcome, poor results and port satisfaction. Risks of not performing the procedure included, but were not limited to, no access for continued TPN installation. The patient's questions were answered. The patient voices acceptance and understanding of these risks, benefits and alternative treatment options and consents to proceed with placement of a left internal jugular vein tunneled central venous catheter with placement of a dual lumen Beasley catheter. No promises or guarantees were made regarding the procedure results and/or outcome to the patient. ANESTHESIA: Local with 20 mL of 2% lidocaine. FLUORO TIME: 0.5 minutes. CONTRAST: None. COMPLICATIONS: None. DRAINS: None. SPECIMENS: None. IMPLANTS: Left internal jugular vein tunneled central venous catheter with placement of a 27 cm dual-lumen Beasley catheter. DESCRIPTION OF PROCEDURE: The patient was taken to the angiography suite, placed supine on the angiography room table and prepped and draped in a standard surgical fashion. A timeout was conducted by myself and the team members in the room confirming the correct patient and procedure. The left internal jugular vein was evaluated with ultrasound and noted to be widely patent, easily compressible and free of thrombus. The left internal jugular vein was then cannulated with a micropuncture needle using ultrasound guidance after anesthetizing the overlying skin and subcutaneous tissue with 2% lidocaine. Ultrasound guidance was used to cannulate the left internal jugular vein with real time concurrent visualization of the entry of the needle into the left internal jugular vein with a hard copy image preserved. The micropuncture wire was advanced through the micropuncture needle which was upsized to a micropuncture sheath. A wire was advanced through the micropuncture sheath which was upsized to an introducer sheath under fluoroscopic guidance. The catheter was measured and cut to 27 cm and after being tunneled through a puncture wound in the left chest and brought out at the puncture wound in the left internal jugular vein entry site the catheter was advanced through the introducer sheath and positioned under fluoroscopic guidance with the tip in the superior vena cava/right atrial junction. The introducer sheath was peeled away and removed. Both ports of the catheter were aspirated and noted to aspirate easily and then flushed with heparinized saline. The catheter was secured to the anterior chest wall using #2-0 Prolene suture after anesthetizing the overlying skin and subcutaneous tissue with 2% lidocaine. The puncture wound in the left neck was closed using a #3-0 Monocryl in inverted interrupted fashion. Steri-Strips and dressings were applied. The patient tolerated the procedure well. All instrument, sponge and needle counts were correct at the end of the case. There were no complications. Dr. Sanon was present for and directed the entire case. The patient was transferred to holding area in stable condition. The results and findings of the procedure were discussed with the patient in the postprocedure holding area and all of his questions were answered. The patient was transferred to the floor in stable condition. RADIOLOGIC SUPERVISION AND INTERPRETATION: The ultrasound showed the left internal jugular vein to be widely patent, easily compressible and free of thrombus. Ultrasound was used to guide cannulation with real-time concurrent visualization of the entry of the needle into the left internal jugular vein with a hard copy image preserved. Fluoroscopic guidance was used to dilate the left internal jugular vein, placed an introducer sheath and pass the catheter through the introducer sheath and position this within the superior vena cava/right atrial junction. Final fluoroscopic image showed no pneumothorax or hemothorax with the catheter tip in the superior vena cava/right atrial junction with no abnormalities noted. There was a right internal jugular vein tunneled central venous catheter in place with the tip in the superior vena cava/right atrial junction noted.
--- NOTE | 2018-08-31 09:20 | REPIR ---
DATE OF PROCEDURE: 08/15/2018 ATTENDING SURGEON: Dr. Gaston Sanon DIRECTOR OF CLINICAL EDUCATION: Saige Jimenez and Sylvia Gallardo PREOPERATIVE DIAGNOSIS: Acute renal failure requiring renal replacement therapy. POSTOPERATIVE DIAGNOSIS: Acute renal failure requiring renal replacement therapy. PROCEDURE: Ultrasound-guided right internal jugular vein cannulation, fluoroscopic-guided right internal jugular vein 19 cm tip-to-cuff tunneled central venous catheter insertion with an even more anterior dynamics catheter. INDICATION: The patient is a 47-year-old male with acute renal failure, who requires access for renal replacement therapy and hemodialysis. The patient will undergo placement of a right internal jugular vein tunneled central venous catheter. The procedure was described and explained to the patient in detail, including drawing of pictures showing the procedure and pertinent anatomy. Risks, benefits and alternative treatment options were discussed with the patient. Alternative options included but were not limited to no intervention. Benefits included but were not limited to placement of a catheter for access for renal replaced therapy. Risks included but were not limited to infection, bleeding, pneumothorax, hemothorax, adverse reaction to the prepping and draping materials, adverse reaction to the local anesthetic and sedation medications, possible need for open surgical intervention, cerebrovascular accident, myocardial infarction, pulmonary embolus, deep venous thrombosis (DVT), loss of limb, loss of life, poor outcome, poor results and poor satisfaction. Risks of not performing the procedure included but were not limited to not having access for renal replacement therapy resolving in . The patient's questions were answered. The patient voices acceptance and understanding of these risks, benefits and alternative treatment options. No promises or guarantees were made to the patient regarding the procedure outcome and/or results. ANESTHESIA: Local with 20 mL of 2% lidocaine. FLUOROSCOPY TIME: 0.1 minutes. CONTRAST: None. COMPLICATIONS: None. DRAINS: None. SPECIMENS: None. IMPLANTS: Tunneled central venous catheter in the right internal jugular vein. DESCRIPTION OF PROCEDURE: The patient was taken to the angiography suite, placed supine on the angiography room table and then prepped and draped in a standard surgical fashion. The right internal jugular vein was evaluated with ultrasound and noted to be widely patent, easily compressible and free of thrombus. Ultrasound was used to guide cannulation of the right internal jugular vein after anesthetizing the overlying skin and subcutaneous tissue with 2% lidocaine. Ultrasound was used to guide cannulation with a micropuncture needle with real-time concurrent visualization of the entry of the micropuncture needle into the right internal jugular vein with a hard copy image preserved. The micropuncture wire was advanced through the micropuncture needle, which was upsized to a micropuncture sheath. An Amplatz wire was advanced to the micropuncture needle, which was used to sequentially dilate the right internal jugular vein under fluoroscopic guidance and an introducer sheath positioned. The catheter was tunneled through a puncture wound in the right chest and brought out through a puncture wound at the right internal jugular vein entry site. The catheter was advanced through the introducer sheath under fluoroscopic guidance and positioned with the tip in the superior vena cava right atrial junction. The introducer sheath was peeled away and removed. The catheter was aspirated. Both ports were noted to aspirate easily and then flushed with heparinized saline. The catheter was secured to the anterior chest wall using #2-0 Prolene suture. The puncture wound in the right neck was closed using #3-0 Monocryl in inverted interrupted fashion. Steri-Strips and dressings were applied. The patient tolerated the procedure well. All instrument and needle counts were correct at the end the case. There were no complications. Dr. Sanon was present for and directed the entire case. The patient was transferred to the holding area and subsequently to the intensive care unit (ICU) in stable condition. The procedure results and findings were discussed with the patient in the holding area with all his questions answered. RADIOLOGIC SUPERVISION INTERPRETATION: The ultrasound showed the right internal jugular vein to be widely patent and free of thrombus and easily compressible. Ultrasound was used to guide cannulation of the right internal jugular vein with real-time concurrent visualization of the entry of the needle into the right internal jugular vein with a hard copy image preserved. Fluoroscopic guidance was used to sequentially dilate the right internal jugular vein and the introducer sheath and catheter were placed with the tip in the superior vena cava right atrial junction. Final fluoroscopic image showed the catheter to be in good position and good alignment with no pneumo or hemothorax with the tip in the superior vena cava right atrial junction. The right internal jugular vein tunneled central venous catheter is stable for use for access.
[2018-08-31] MEDS: CIPROFLOXACIN 200 MG in APPROPRIATE DILUENT 1 EA IV SCH (14:27)
[2018-08-31] MEDS: ALBUTEROL SULFATE 2.5 MG/0.5 ML INH NEB SOLN NEB PRN ×2 (17:06→22:33)
[2018-08-31] MEDS ORDERED: SODIUM ACETATE IV SCH ×10 (18:00)
[2018-08-31] MEDS ORDERED: [UNRECOGNIZED DRUG - OTHER] IV SCH ×10 (18:00)
[2018-08-31] MEDS ORDERED: FAT EMULSION IV 20% 500 ML IV SCH (18:00)
[2018-08-31] MEDS ORDERED: SODIUM CHLORIDE IV SCH ×10 (18:00)
[2018-08-31] MEDS: NITROGLYCERIN 0.4 MG SUBL TABLET SL PRN ×3 (22:27→22:41)
[2018-08-31] MEDS ORDERED: MORPHINE 4 MG/ML 1ML VIAL/SYRINGE (J2270) IV ONE (23:15)
[2018-08-31 23:36] LABS: TROPONIN I 0.07 NG/ML (< 0.10)
[2018-09-01] VITALS (7 sets, daily range): BP systolic 98–151; BP diastolic 54–95
[2018-09-01] MEDS: CIPROFLOXACIN 200 MG in APPROPRIATE DILUENT 1 EA IV SCH ×2 (00:26→14:50)
[2018-09-01] MEDS: HumaLOG INSULIN (NovoLOG) PER UNIT SC SCH ×4 (00:26→18:53)
[2018-09-01] MEDS ORDERED: MORPHINE 4 MG/ML 1ML VIAL/SYRINGE (J2270) IV ONE (02:45)
[2018-09-01] MEDS ORDERED: PANTOPRAZOLE 40MG INJ (PROTONIX) (C9113) IV ONE (02:45)
[2018-09-01] MEDS: ALBUTEROL SULFATE 2.5 MG/0.5 ML INH NEB SOLN NEB PRN (03:00)
[2018-09-01] MEDS: metroNIDAZOLE 500 MG in APPROPRIATE DILUENT 1 EA IV SCH ×3 (03:14→18:53)
[2018-09-01 03:30] LABS: HEMATOCRIT 30.3 % (42.0-52.0); HEMOGLOBIN 9.4 g/dl (13.5-17.5); MEAN CORPUSCULAR HEMOGLOBIN 29.1 pg (27.0-33.0); MEAN CORPUSCULAR VOLUME 93.8 fl (80.0-96.0); PLATELET COUNT, AUTOMATED 398 10^3/uL (150-450); RED BLOOD COUNT 3.23 10^6/uL (4.30-6.10); WHITE BLOOD COUNT 22.3 10^3/uL (4.0-10.0)
[2018-09-01 04:04] LABS: BILIRUBIN,TOTAL 0.4 MG/DL (0.2-1.0); C REACTIVE PROTEIN QUANTITATIV 7.9 MG/DL (0.00-0.30); CALCIUM LEVEL 8.7 MG/DL (8.5-10.1); CREATININE FOR GFR 2.95 MG/DL (0.70-1.30); GLOMERULAR FILTRATION RATE 24.3 (>60); MAGNESIUM LEVEL 1.5 MG/DL (1.8-2.4); POTASSIUM SERUM 4.5 MEQ/L (3.5-5.1); TOTAL PROTEIN 6.2 GM/DL (6.4-8.2)
--- NOTE | 2018-09-01 05:09 | IPNPDOC ---
Date Seen The patient was seen on 08/31/18, at 11pm Progress Note SUBJECTIVE: I was informed of patient complaining of chest tightness/pain and with shortness of breath at 11pm. Patient had prior nitroglycerin 3 but with little or no improvement in his pain. He describes his pain as retrosternal, nonradiating, about 4-7/10 in intensity. No relieving or aggravating factor. When I went to see him, I had earlier asked that he received 1 mg of morphine, which did give some relief to his pain. OBJECTIVE PHYSICAL EXAMINATION: GENERAL APPEARANCE: Middle aged man, lying calmly in bed, in moderate dyspnea but getting respiratory treatment. He does not appear pale, anicteric and afebrile. VITAL SIGNS: Temp 98.9, HR 95, RR 20, BP 142/84, Sat 98 on 2L O2 HEENT: Atraumatic. Neck: Supple. LUNGS: Clear to auscultation bilaterally, chest pain reproducible, central line insitu. CARDIOVASCULAR: S1 and 2 heard, no murmurs, rubs or gallops. ABDOMEN: Obese, soft, not tender, not distended. Bowel sounds normoactive. MUSCULOSKELETAL: Apparently within normal limits. EXTREMITIES: No pedal edema, 2+ bilateral pedal pulses noted. NEUROLOGICAL: Awake, alert, oriented 3. PSYCHIATRIC: Normal affect LABORATORY DATA, IMAGING STUDIES, MICROBIOLOGY: Please see below. Trop 0.07 at 11pm (08/31/2018) and 0.08 at 3am (09/01/2018) Echocardiogram: cardiac paced rythm. ASSESSMENT AND PLAN: his is a 47-year-old middle aged man with extensive cardiac history inclusive of coronary artery disease with coronary artery bypass graft (CABG) in 2000, PCI with multiple stents, cardiac catheterization two years ago, congestive heart failure systolic dysfunction with EF 15- 20% with biventricular pacemaker defibrillator. His history is also significant for insulin-dependent diabetes, complicated with diabetic neuropathy, chronic obstructive pulmonary disease, gastroesophageal reflux disease (GERD), hypertension, dyslipidemia, benign prostatic hypertrophy, remote history of cerebrovascular accident (CVA), history of methicillin-resistant Staphylococcus aureus (MRSA), sternal osteomyelitis, degenerative joint disease. Admitted for respiratory failure with NSTEMI on medical management. Hospital course complicated with intubation, and hypotension, shock liver, as well as pancreatitis and also persistent leukocytosis, bonita urea and acute on chronic renal failure. PROBLEMS: 1. Chest pain likely atypical, may be secondary to sternal ostomy melitis. 2. Mildly elevated troponin to rule out ACS, however, it is not uncommon to have his degree of troponin elevation in the patient's with chronic kidney disease most recent creatinine done today is 2.95 PLAN 1. Cycle one more troponin in 4-5 hours time, please follow. 2. I did curbside Dr. Garcia who is a it teacher research instrumentation technician today. He does not think patient's pain is of cardiac origin at this time, but we'll gladly follow patient in the clinic when he is discharged. 3. IV pantoprazole added to his medication regimen. 4. Continue DuoNeb nebulizations when necessary shortness of breath. 5. Patient does agreed to resume use of scheduled hydromorphone. 6. DVT prophylaxis with TEDs and sequentials. 7. Further management will be per patient's clinical course. VS, I&O, [facility] Signs/I&O Vital Signs Date Time Temp Pulse Resp B/P (MAP) Pulse Ox O2 Delivery O2 Flow Rate FiO2 09/01/18 03:03 22 Nasal Cannula 2.0 09/01/18 02:53 96 08/31/18 23:34 98.9 95 142/84 (103) 08/31/18 05:32 60 I&O- Last 24 Hours up to 6 AM 09/01/18 06:00 Intake Total 540 ml Output Total 0 ml Balance 540 ml Laboratory Data 24H LABS Laboratory Tests 2 08/31/18 05:20: Nucleated Red Blood Cells % (auto) 0.2H, Anion Gap 9, Glomerular Filtration Rate 27.0L, Blood Urea Nitrogen 40H, Creatinine 2.69H, Sodium Level 139, Potassium Level 4.4, Chloride Level 111H, Carbon Dioxide Level 19L, Calcium Level 8.9, Asp artate Amino Transf (AST/SGOT) 12, Alanine Aminotransferase (ALT/SGPT) 18, Alkaline Phosphatase 114, Total Bilirubin 0.3, Total Protein 6.1L, Albumin 1.7L, Magnesium Level 1.8, C-Reactive Protein, Quantitative 7.33H, Albumin/Globulin Ratio 0.39L 08/31/18 12:03: Bedside Glucose (Misc Panel) 239H 08/31/18 16:55: Bedside Glucose (Misc Panel) 237H 08/31/18 20:29: Bedside Glucose (Misc Panel) 237H 08/31/18 22:58: Total Creatine Kinase 20L, Creatine Kinase MB 3.0, Creatine Kinase MB Relative Index 15.00H, Troponin I 0.07 08/31/18 23:33: Bedside Glucose (Misc Panel) 237H 09/01/18 00:47: Bedside Glucose (Misc Panel) 251H 09/01/18 03:23: Troponin I 0.08, Nucleated Red Blood Cells % (auto) 0.1H, Anion Gap 13, Glomerular Filtration Rate 24.3L, Blood Urea Nitrogen 58H, Creatinine 2.95H, Sodium Level 139, Potassium Level 4.5, Chloride Level 113H, Carbon Dioxide Level 13L, Calcium Level 8.7, Aspartate Amino Transf (AST/SGOT) 20, Alanine Aminotransferase (ALT/SGPT) 19, Alkaline Phosphatase 114, Total Bilirubin 0.4, Total Protein 6.2L, Albumin 2.0L, Magnesium Level 1.5L, C-Reactive Protein, Quantitative 7.90H, Albumin/Globulin Ratio 0.48L CBC/BMP Laboratory Tests 08/31/18 05:20 Red Blood Count 3.15 L, Mean Corpuscular Volume 95.6, Mean Corpuscular Hemoglobin 29.5, Mean Corpuscular Hemoglobin Concent 30.9 L, Red Cell Distribution Width 15.0 H, Calcium Level 8.9, Aspartate Amino Transf (AST/SGOT) 12, Alanine Aminotransferase (ALT/SGPT) 18, Alkaline Phosphatase 114, Total Bilirubin 0.3, Total Protein 6.1 L, Albumin 1.7 L 09/01/18 03:23 Red Blood Count 3.23 L, Mean Corpuscular Volume 93.8, Mean Corpuscular Hemoglobin 29.1, Mean Corpuscular Hemoglobin Concent 31.0 L, Red Cell Distribution Width 15.4 H, Calcium Level 8.7, Aspartate Amino Transf (AST/SGOT) 20, Alanine Aminotransferase (ALT/SGPT) 19, Alkaline Phosphatase 114, Total Bilirubin 0.4, Total Protein 6.2 L, Albumin 2.0 L VANESA HICKS MD Sep 01, 2018 05:09
[2018-09-01] MEDS: HYDROMORPHONE HCL 0.5 MG/ 0.5 ML SYRINGE (J1170 PER 1) IV PRN ×3 (05:14→19:34)
[2018-09-01] MEDS: ISOSORBIDE DIN. (ISORDIL) 30 MG TAB PO SCH ×3 (07:01→17:27)
[2018-09-01] MEDS: AMIODARONE 200 MG TAB (PACERONE) PO SCH (07:01)
[2018-09-01] MEDS: SODIUM CHLORIDE 0.9% INJ 10 ML SYR IV SCH (07:01)
[2018-09-01] MEDS: CLOPIDOGREL 75 MG TAB PO SCH (07:02)
[2018-09-01] MEDS: SLF 3 ML SYR IV SCH ×3 (07:02→21:56)
[2018-09-01] MEDS: CARVedilol 6.25 MG TAB PO SCH ×2 (07:02→21:00)
[2018-09-01] MEDS: PANTOPRAZOLE 40MG INJ (PROTONIX) (C9113) IV SCH (07:06)
[2018-09-01] MEDS: TIOTROPIUM INHALER/CAPSULE (SPIRIVA) INH SCH (08:00)
[2018-09-01] MEDS ORDERED: SODIUM BICARBONATE 325 MG TAB PO ONE (08:30)
[2018-09-01] MEDS: SYMBICORT 160/4.5MCG INHALER 6GM INH SCH ×2 (08:42→19:58)
--- NOTE | 2018-09-01 10:08 | IPNPDOC ---
Date Seen The patient was seen on 09/01/18. Progress Note SUBJECTIVE: Pt c/o recurrent chest pain yesterday substernal without diaphoresis, sob, feeling of impending doom, palpitations, lightheadedness, described as achy no radiation unalleviated by current meds, and subsided without intervention after half an hour. pt denies any hematemesis, reflux symptoms or brpbr. EKG and card valenzuela reviewed. Dr. Deny rizzo hospitalist discussed with Dr. 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 His bicarb was 13 this morning, and he is currently in hemodialysis with repeat bmp q6hrs to monitor this. PHYSICAL EXAMINATION: GENERAL: The patient in no respiratory distress HEENT: Normocephalic, atraumatic. NECK: Supple. CARDIAC: Regular. S1, S2. 2/6 systolic murmur. ABDOMEN: Soft, diffuse tenderness b/l LQ. increased distension. Positive bowel sounds. PULMONARY: diminished at bases EXTREMITIES: 1+ edema. ASSESSMENT AND PLAN: This is a 47-year-old male patient with underlying medical history of coronary artery disease with coronary artery bypass graft (CABG) in 2000, PCI with multiple stents. Most recent cardiac catheterization two years ago, history of congestive heart failure (CHF) with reduced ejection fraction, has a biventricular pacemaker defibrillator, insulin-dependent diabetes, complicated with diabetic neuropathy, chronic obstructive pulmonary disease (COPD), gastroesophageal reflux disease (GERD), hypertension, dyslipidemia, benign prostatic hypertrophy (BPH), history of cerebrovascular accident (CVA), history of methicillin-resistant Staphylococcus aureus (MRSA), sternal osteomyelitis, degenerative joint disease was initially presented to the hospital with shortness of breath and chest tightness. On presentation, the patient was diagnosed with non-ST segment elevation myocardial infarction (NSTEMI). Hospital course complicated with intubation, nitroglycerine drip with also hyperglycemia require insulin drip, complicated with hypotension, shock liver, as well as pancreatitis and also persistent leukocytosis, bonita urea and acute on chronic renal failure. PROBLEMS: Acute severe pancreatitis . Diet not tolerated with increasing abdominal pain. reviewed repeat 08/29/18 CT scan abd/pelvis.Surgery has been consulted. The patient has been on Dilaudid for pain medication. pain management consult. held Pancreatic enzymes while npo Clostridium difficile work up has been negative. d/w Surgery, TPN given poor po. no fever but white count is still unchanged. SOB, resolved. off bipap. abg improved. pulmonary consulted, bhavesh Lujan, [place] Abdominal truncal rash as per infection disease, Dr. Hector, likely secondary to hydralazine. The patient's hydralazine has been on stopped . resolving Acute on chronic oliguric renal failure in the setting of ACS/NSTEMI, currently end-stage renal requiring dialysis. Further management as per nephrology. acute metabolic acidosis corrected inhemodialysis, most likely secondary to esrd requiring HD. Persistent leukocytosis, was treated with broad-spectrum antibiotics and antifungal including Diflucan, Zosyn and vancomycin. Sputum culture showed Streptococcus agalactiae. Infectious disease has been consulted. Presently, the patient were discontinued.CRP improved. cipro flagyl restarted by surgery 08/29/18 due to sigmoid thickening and increasing abd pain and distension Colitis/Ileus cipro flagyl 08/29/18 resumed by surgery due to sigmoid thickening onrepeat CT 08/29/18 and increasing abd pain and distention. npo on TPN> Acute coronary syndrome with non-ST segment elevation myocardial infarction (NSTEMI). Continue aspirin and Plavix, Coreg, isosorbide dinitrate. Hydralazine has been on hold given possible reaction. Isosorbide dinitrate has been increased. Automatic implantable cardioverted defibrillator (AICD) has been turned back on. Appreciate Dr. Giordano's input. As per cardiology, patient not a candidate for cardiac intervention in current condition. chest pain 08/31/18 evaluated by night hospitalist, and discussed with Dr. Garcia. juventino valenzuela and ekg reviewd, and not felt to be cardiac in nature. Acute severe pancreatitis, nausea and vomiting, resolved. abd pain and diarrhea. Appreciate Dr. Nolasco's surgery consult. Diet not tolerated. TPN. repeat ct abd reviewed 08/29/18 Status post shock liver secondary to non-ST segment elevation myocardial infarction (NSTEMI) and congestive heart failure (CHF), currently improved. Generalized weakness and deconditioning. Protein calorie malnutrition. Diet as tolerated. TPN, diet as tolerated History of gastroesophageal reflux disease (GERD). Continue proton pump inhibitor (PPI). Diabetes mellitus. insulin in TPN. and Q6hr protocol. Adjust as needed. Acute on chronic anemia secondary to anemia of chronic disease. Also possible gastrointestinal (GI) bleed, status post 5 units packed red blood cells. Monitor complete blood count (CBC). Consulted GI given recent acute coronary syndrome. The patient is not a candidate for intervention at this time. Continue to monitor. Protein calorie malnutrition. start total parenteral nutrition (TPN) Diet as tolerated. Dietary consult. Ensure clear. Deep vein thrombosis (DVT) prophylaxis. teds and scd given concerns of GI bleed disposition: due to recurrent chest pain, serial card valenzuela,a nd transfer to pcu. VS, I&O, 24H, Fishbone Vital Signs/I&O Vital Signs Date Time Temp Pulse Resp B/P (MAP) Pulse Ox O2 Delivery O2 Flow Rate FiO2 09/01/18 07:02 92 139/94 09/01/18 05:39 97.5 16 97 Room Air 09/01/18 05:24 2.0 08/31/18 05:32 60 I&O- Last 24 Hours up to 6 AM 09/01/18 06:00 Intake Total 540 ml Output Total 0 ml Balance 540 ml Laboratory Data 24H LABS Laboratory Tests 2 08/31/18 12:03: Bedside Glucose (Misc Panel) 239H 08/31/18 16:55: Bedside Glucose (Misc Panel) 237H 08/31/18 20:29: Bedside Glucose (Misc Panel) 237H 08/31/18 22:58: Total Creatine Kinase 20L, Creatine Kinase MB 3.0, Creatine Kinase MB Relative Index 15.00H, Troponin I 0.07 08/31/18 23:33: Bedside Glucose (Misc Panel) 237H 09/01/18 00:47: Bedside Glucose (Misc Panel) 251H 09/01/18 03:23: Nucleated Red Blood Cells % (auto) 0.1H, Anion Gap 13, Glomerular Filtration Rate 24.3L, Blood Urea Nitrogen 58H, Creatinine 2.95H, Sodium Level 139, P otassium Level 4.5, Chloride Level 113H, Carbon Dioxide Level 13L, Calcium Level 8.7, Aspartate Amino Transf (AST/SGOT) 20, Alanine Aminotransferase (ALT/SGPT) 19, Alkaline Phosphatase 114, Total Bilirubin 0.4, Total Protein 6.2L, Albumin 2.0L, Magnesium Level 1.5L, Troponin I 0.08, C-Reactive Protein, Quantitative 7.90H, Albumin/Globulin Ratio 0.48L 09/01/18 05:15: Bedside Glucose (Misc Panel) 240H 09/01/18 07:05: Troponin I 0.10# 09/01/18 08:43: Lactic Acid Level 1.2 CBC/BMP Laboratory Tests 09/01/18 03:23 Red Blood Count 3.23 L, Mean Corpuscular Volume 93.8, Mean Corpuscular Hemoglobin 29.1, Mean Corpuscular Hemoglobin Concent 31.0 L, Red Cell Distribution Width 15.4 H, Calcium Level 8.7, Aspartate Amino Transf (AST/SGOT) 20, Alanine Aminotransferase (ALT/SGPT) 19, Alkaline Phosphatase 114, Total Bilirubin 0.4, Total Protein 6.2 L, Albumin 2.0 L KEM FARNSWORTH MD Sep 01, 2018 10:08
[2018-09-01] MEDS: SODIUM BICARBONATE 325 MG TAB PO SCH ×3 (11:12→17:26)
--- NOTE | 2018-09-01 11:22 | IPN ---
DATE: 08/31/2018 SUBJECTIVE: Patient seen and examined this morning at the bedside. was present. He reports uneventful overnight course, is nothing by mouth, continues on total parenteral nutrition (TPN). No issue with dialysis yesterday. Three liters of fluid were removed without issue. VITAL SIGNS: Temperature 98.2, pulse 108, respiratory rate 22, blood pressure 150/94, saturating 97% on 2 liters nasal cannula. Review of intake and output yesterday shows net negative 1 liter. Weight on the bed scale today is 79 kg. General: Patient seen lying in bed, in no acute distress, oriented. Extraocular muscles are intact. Tongue is moist. Nasal cannula is in place. He has central lines present, both in the left and right chest wall. Cardiac: S1, S2, regular rate. Lungs: Diminished breath sounds at both bases, otherwise clear. Abdomen is soft. There is ongoing tenderness to palpation, especially in the lower quadrants. Extremities show trace edema. Neurologic: He is oriented, conversational, and appropriate. Psychiatric: He appears quite depressed. LABORATORY: White count 19.3, hemoglobin 9.3. Sodium 139, potassium 4.4, bicarbonate 19. INPATIENT MEDICATIONS: Reviewed by myself and no changes from prior. He is continued on Cipro and Flagyl and is also continued on TPN. Remainder of medications are unchanged. His pain medication was adjusted by the primary team. PROBLEMS: 1. Oliguric renal failure in the setting of prior non-ST elevation myocardial infarction (AL), cardiac arrest and shock. It looks like he is converting to nonoliguric renal failure now. His urine output is slowly improving, but he does remain dependent on hemodialysis. He is volume overloaded. There are pleural effusions. Three liters were removed with dialysis yesterday, which he tolerated without issue. Next dialysis treatment will be tomorrow with goal fluid removal of 3 liters as tolerated. We will continue to monitor for signs of renal recovery. 2. Abdominal pain, pancreatitis, sigmoid colitis. Manage as per surgery. He is nothing by mouth. He is still having significant abdominal pain. There is leukocytosis. His CRP is up trending. He continues on IV ciprofloxacin and Flagyl for his colitis, and he remains TPN dependent. 3. Anemia with questionable prior GI (gastrointestinal) bleed. Status post six units of packed red blood cells (PRBC). Hemoglobin has been fairly stable the past few days between 9s and 10s. He continues on Aranesp with dialysis. 4. Hypertension. Blood pressures are acceptable, and I am not making any changes to his current regimen.
[2018-09-01] MEDS ORDERED: HEPARIN 1,000 UNITS/ML 10ML VIAL (FOR RADIOLOGY& DIALYSIS ONLY) IV ONE (13:00)
[2018-09-01 14:13] LABS: CALCIUM LEVEL 7.9 MG/DL (8.5-10.1); CREATININE FOR GFR 1.56 MG/DL (0.70-1.30); GLOMERULAR FILTRATION RATE 50.6 (>60); MB/CK RELATIVE INDEX 18.57 (< OR =4); POTASSIUM SERUM 3.1 MEQ/L (3.5-5.1); TROPONIN I 0.46 NG/ML (< 0.10)
--- NOTE | 2018-09-01 15:35 | ECGEPIP ---
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
--- NOTE | 2018-09-01 16:17 | IPN ---
DATE: 09/01/2018 Mr. Shipman is seen this morning during hemodialysis on his bedside. He has complaint of abdominal pain and is currently using a bed hester. He denies any nausea or vomiting. He remains nothing by mouth and is on total parenteral nutrition (TPN). He denies any dyspnea, chest pain, fever or chills. PHYSICAL EXAMINATION: Temperature 98.4 degrees Fahrenheit, heart rate 78 per minute and respiratory rate 20 per minute. Blood pressure 140/78 mmHg and oxygen saturation 96%. His head is atraumatic. Neck is supple and without jugular venous distention (JVD) or thyroid enlargement. There is no oral thrush or ulcers. A hemodialysis catheter is intact on right upper chest in right internal jugular vein. There is no sign of infection or drainage. His heart sounds are regular and lungs with slightly diminished breath sounds at bases. Abdomen is mildly distended and has generalized tenderness. Bowel sounds are hypoactive. Extremities have no cyanosis or clubbing. Skin has no rash or ulcers. Neurologically he is awake, alert and oriented times three. Today's labs show WBC count 22.2, hemoglobin 9.4 and hematocrit 30.3. Platelets 398. Sodium 139, potassium 4.5, CO2 13, BUN 58 and creatinine 2.95. Glucose 247 and calcium 8.7. A lactic acid level is 1.2. PROBLEMS: 1. Acute renal failure superimposed on chronic kidney disease. The patient remains dialysis dependent and is currently being dialyzed. He does have some urine output, however his kidney function has not improved enough to stop dialysis. He is being dialyzed today. 2. Hypervolemia. The patient is currently receiving total parenteral nutrition (TPN) with large IV fluid volume. We are trying to remove about 3 liters fluid today which he is tolerating well so far. 3. Anemia. At present his anemia is stable and does not need any urgent intervention. There is no change in hemoglobin over last couple of days. 4. Abdominal pain and leukocytosis. The patient has known history of pancreatitis and also now has acute colitis for which he is being treated with intravenous Cipro and Flagyl. His symptoms have not improved much. He just had a CT scan of abdomen and pelvis done on 08/29/2018. I will consider repeating imaging in a couple of days if no improvement. 5. Metabolic acidosis. The patient has significant metabolic acidosis related to acute renal failure and colitis. We will dialyze him with high bicarbonate today and try to correct his metabolic acidosis. Chemistry will be repeated again tomorrow morning. All other issues are being addressed by hospitalist service and surgery.
[2018-09-01] MEDS ORDERED: [UNRECOGNIZED DRUG - OTHER] IV SCH ×8 (18:00)
[2018-09-01] MEDS ORDERED: SODIUM CHLORIDE IV SCH ×8 (18:00)
[2018-09-01] MEDS ORDERED: SODIUM ACETATE IV SCH ×8 (18:00)
[2018-09-01] MEDS ORDERED: FAT EMULSION IV 20% 500 ML IV SCH (18:00)
[2018-09-01] MEDS ORDERED: POTASSIUM CHLORIDE 10% LIQ 20 MEQ/15 ML UDC PO ONE (19:00)
[2018-09-01 19:54] LABS: CALCIUM LEVEL 8.1 MG/DL (8.5-10.1); CREATININE FOR GFR 1.95 MG/DL (0.70-1.30); GLOMERULAR FILTRATION RATE 39.1 (>60); POTASSIUM SERUM 3.5 MEQ/L (3.5-5.1); TROPONIN I 0.45 NG/ML (< 0.10)
[2018-09-02] MEDS: HYDROMORPHONE HCL 0.5 MG/ 0.5 ML SYRINGE (J1170 PER 1) IV PRN ×8 (00:16→22:05)
[2018-09-02] MEDS: CIPROFLOXACIN 200 MG in APPROPRIATE DILUENT 1 EA IV SCH ×3 (00:30→23:59)
[2018-09-02] MEDS: HumaLOG INSULIN (NovoLOG) PER UNIT SC SCH ×4 (00:31→18:21)
[2018-09-02 00:57] LABS: CALCIUM LEVEL 7.8 MG/DL (8.5-10.1); CREATININE FOR GFR 2.14 MG/DL (0.70-1.30); POTASSIUM SERUM 4.2 MEQ/L (3.5-5.1)
[2018-09-02 01:07] LABS: MB/CK RELATIVE INDEX 16.32 (< OR =4); TROPONIN I 0.34 NG/ML (< 0.10)
[2018-09-02 04:00] VITALS: BP 124/66
[2018-09-02] MEDS: metroNIDAZOLE 500 MG in APPROPRIATE DILUENT 1 EA IV SCH ×3 (04:00→18:23)
[2018-09-02] MEDS: SLF 3 ML SYR IV SCH ×3 (06:00→21:59)
[2018-09-02] MEDS: ISOSORBIDE DIN. (ISORDIL) 30 MG TAB PO SCH ×3 (06:36→18:19)
[2018-09-02 06:39] LABS: HEMATOCRIT 27.4 % (42.0-52.0); HEMOGLOBIN 8.8 g/dl (13.5-17.5); MEAN CORPUSCULAR HEMOGLOBIN 31.4 pg (27.0-33.0); MEAN CORPUSCULAR HGB CONC 32.1 g/dl (32.0-36.5); MEAN CORPUSCULAR VOLUME 97.9 fl (80.0-96.0); PLATELET COUNT, AUTOMATED 337 10^3/uL (150-450)
[2018-09-02] MEDS: SYMBICORT 160/4.5MCG INHALER 6GM INH SCH ×2 (07:25→19:30)
[2018-09-02] MEDS: TIOTROPIUM INHALER/CAPSULE (SPIRIVA) INH SCH (07:25)
[2018-09-02 07:35] LABS: ALBUMIN 1.7 GM/DL (3.2-5.2); BILIRUBIN,TOTAL 0.5 MG/DL (0.2-1.0); C REACTIVE PROTEIN QUANTITATIV 6.88 MG/DL (0.00-0.30); CALCIUM LEVEL 7.9 MG/DL (8.5-10.1); CREATININE FOR GFR 2.25 MG/DL (0.70-1.30); MAGNESIUM LEVEL 1.5 MG/DL (1.8-2.4); MB/CK RELATIVE INDEX 8.53 (< OR =4); POTASSIUM SERUM 4.4 MEQ/L (3.5-5.1); TOTAL PROTEIN 5.4 GM/DL (6.4-8.2); TROPONIN I 0.27 NG/ML (< 0.10)
[2018-09-02] MEDS ORDERED: LEVEMIR (INSULIN DETEMIR) 1 UNITS/0.01ML SC ONE (07:45)
[2018-09-02 08:00] VITALS: BP 134/68
[2018-09-02 08:16] LABS: PREALBUMIN 14.9 MG/DL (20.0-40.0)
[2018-09-02] MEDS: CARVedilol 6.25 MG TAB PO SCH ×2 (08:31→21:58)
[2018-09-02] MEDS: CLOPIDOGREL 75 MG TAB PO SCH (08:31)
[2018-09-02] MEDS: PANTOPRAZOLE 40MG INJ (PROTONIX) (C9113) IV SCH (08:32)
[2018-09-02] MEDS: AMIODARONE 200 MG TAB (PACERONE) PO SCH (08:32)
[2018-09-02] MEDS: SODIUM CHLORIDE 0.9% INJ 10 ML SYR IV SCH (08:33)
[2018-09-02 08:50] LABS: CALCIUM LEVEL 8.4 MG/DL (8.5-10.1); CREATININE FOR GFR 2.37 MG/DL (0.70-1.30); GLOMERULAR FILTRATION RATE 31.1 (>56); POTASSIUM SERUM 3.6 MEQ/L (3.5-5.1)
[2018-09-02 10:04] LABS: HEMOGLOBIN A1c 7.2 %
[2018-09-02 16:45] VITALS: BP 141/75
[2018-09-02] MEDS ORDERED: SODIUM ACETATE IV SCH ×18 (18:00)
[2018-09-02] MEDS ORDERED: FAT EMULSION IV 20% 500 ML IV SCH (18:00)
[2018-09-02] MEDS ORDERED: SODIUM CHLORIDE IV SCH ×18 (18:00)
[2018-09-02] MEDS ORDERED: [UNRECOGNIZED DRUG - OTHER] IV SCH ×18 (18:00)
[2018-09-02] MEDS ORDERED: HumaLOG INSULIN (NovoLOG) PER UNIT SC SCH (18:00)
--- NOTE | 2018-09-02 18:46 | IPNPDOC ---
Date Seen The patient was seen on 09/02/18. Progress Note SUBJECTIVE: no recurrent chest pains, no issues on telemetry and no nausea/vomiting. full liquid diet resumed. white count is improved on cipro and flagyl. bicarb back to normal after dialysis on 09/01/18. Pt still on TPN,and requesting an electric wheelchair at discharge. PHYSICAL EXAMINATION: GENERAL: The patient in no respiratory distress HEENT: Normocephalic, atraumatic. NECK: Supple. CARDIAC: Regular. S1, S2. 2/6 systolic murmur. ABDOMEN: Soft, nontender. nondistended. Positive bowel sounds. PULMONARY: diminished at bases EXTREMITIES: 1+ edema. ASSESSMENT AND PLAN: This is a 47-year-old male patient with underlying medical history of coronary artery disease with coronary artery bypass graft (CABG) in 2000, PCI with multiple stents. Most recent cardiac catheterization two years ago, history of congestive heart failure (CHF) with reduced ejection fraction, has a biventricular pacemaker defibrillator, insulin-dependent diabetes, complicated with diabetic neuropathy, chronic obstructive pulmonary disease (COPD), gastroesophageal reflux disease (GERD), hypertension, dyslipidemia, benign prostatic hypertrophy (BPH), history of cerebrovascular accident (CVA), history of methicillin-resistant Staphylococcus aureus (MRSA), sternal osteomyelitis, degenerative joint disease was initially presented to the hospital with shortness of breath and chest tightness. On presentation, the patient was diagnosed with non-ST segment elevation myocardial infarction (NSTEMI). Hospital course complicated with intubation, nitroglycerine drip with also hyperglycemia require insulin drip, complicated with hypotension, shock liver, as well as pancreatitis and also persistent leukocytosis, bonita urea and acute on chronic renal failure. PROBLEMS: Acute severe pancreatitis . Diet not tolerated with increasing abdominal pain. reviewed repeat 08/29/18 CT scan abd/pelvis.Surgery has been consulted. The patient has been on Dilaudid for pain medication. pain management consult. held Pancreatic enzymes while npo Clostridium difficile work up has been negative. d/w Surgery, TPN given poor po. no fever but white count is still unchanged. SOB, resolved. off bipap. abg improved. pulmonary consulted, Symbicort, neb, spiriva Abdominal truncal rash as per infection disease, Dr. Hector, likely secondary to hydralazine. The patient's hydralazine has been on stopped . resolving Acute on chronic oliguric renal failure in the setting of ACS/NSTEMI, currently end-stage renal requiring dialysis. Further management as per nephrology. acute metabolic acidosis corrected inhemodialysis, most likely secondary to esrd requiring HD. Persistent leukocytosis, was treated with broad-spectrum antibiotics and antifungal including Diflucan, Zosyn and vancomycin. Sputum culture showed Streptococcus agalactiae. Infectious disease has been consulted. Presently, the patient were discontinued.CRP improved. cipro flagyl restarted by surgery 08/29/18 due to sigmoid thickening and increasing abd pain and distension Colitis/Ileus cipro flagyl 08/29/18 resumed by surgery due to sigmoid thickening onrepeat CT 08/29/18 and increasing abd pain and distention. npo on TPN> Acute coronary syndrome with non-ST segment elevation myocardial infarction (NSTEMI). Continue aspirin and Plavix, Coreg, isosorbide dinitrate. Hydralazine has been on hold given possible reaction. Isosorbide dinitrate has been increased. Automatic implantable cardioverted defibrillator (AICD) has been turned back on. Appreciate Dr. Giordano's input. As per cardiology, patient not a candidate for cardiac intervention in current condition. chest pain 08/31/18 evaluated by night hospitalist, and discussed with Dr. Garcia. juventino valenzuela and ekg reviewd, and not felt to be cardiac in nature. Acute severe pancreatitis, nausea and vomiting, resolved. abd pain and diarrhea. Appreciate Dr. Nolasco's surgery consult. Diet not tolerated. TPN. repeat ct abd reviewed 08/29/18 Status post shock liver secondary to non-ST segment elevation myocardial infarction (NSTEMI) and congestive heart failure (CHF), currently improved. Generalized weakness and deconditioning. Protein calorie malnutrition. Diet as tolerated. TPN, diet as tolerated History of gastroesophageal reflux disease (GERD). Continue proton pump inhibitor (PPI). Diabetes mellitus. insulin in TPN. and Q6hr protocol. Adjust as needed. Acute on chronic anemia secondary to anemia of chronic disease. Also possible gastrointestinal (GI) bleed, status post 5 units packed red blood cells. Monitor complete blood count (CBC). Consulted GI given recent acute coronary syndrome. The patient is not a candidate for intervention at this time. Continue to monitor. Protein calorie malnutrition. start total parenteral nutrition (TPN) Diet as tolerated. Dietary consult. Ensure clear. Deep vein thrombosis (DVT) prophylaxis. teds and scd given concerns of GI bleed disposition: stable and may transfer to [facility]. VS, I&O, 24H, Kami Vital Signs/I&O Vital Signs Date Time Temp Pulse Resp B/P (MAP) Pulse Ox O2 Delivery O2 Flow Rate FiO2 09/02/18 18:19 148/78 09/02/18 18:05 20 09/02/18 16:45 98.2 83 93 Room Air 09/02/18 16:00 2.0 08/31/18 05:32 60 I&O- Last 24 Hours up to 6 AM 09/02/18 06:00 Intake Total 2060 ml Output Total 3625 ml Balance -1565 ml Laboratory Data 24H LABS Laboratory Tests 2 09/01/18 19:05: Anion Gap 11, Glomerular Filtration Rate 39.1L, Blood Urea Nitrogen 35H, Creatinine 1.95H, Sodium Level 141, Potassium Level 3.5, Chloride Level 106, Carbon Dioxide Level 24, Calcium Level 8.1L, Total Creatine Kinase 15L, Creatine Kinase MB 4.0H, Creatine Kinase MB Relative Index 24.00H, Troponin I 0.45H 09/02/18 00:12: Anion Gap 10, Glomerular Filtration Rate 35.0L, Blood Urea Nitrogen 38H, Creatinine 2.14H, Sodium Level 139, Potassium Level 4.2, Chloride Level 106, Carbon Dioxide Level 23, Calcium Level 7.8L, Total Creatine Kinase 19L, Creatine Kinase MB 3.0, Creatine Kinase MB Relative Index 16.32H, Troponin I 0.34#H 09/02/18 00:13: Bedside Glucose (Misc Panel) 200H 09/02/18 06:12: Bedside Glucose (Misc Panel) 201H 09/02/18 06:14: Nucleated Red Blood Cells % (auto) 0.0, Anion Gap 11, Glomerular Filtration Rate 33.0L, Blood Urea Nitrogen 40H, Creatinine 2.25H, Sodium Level 139, Potassium Level 4.4, Chloride Level 107, Carbon Dioxide Level 21, Calcium Level 7.9L, Aspartate Amino Transf (AST/SGOT) 22, Alanine Aminotransferase (ALT/SGPT) 16, Total Creatine Kinase 34#L, Alkaline Phosphatase 87, Total Bilirubin 0.5, Total Protein 5.4L, Albumin 1.7L, Magnesium Level 1.5L, Creatine Kinase MB 3.0, Creatine Kinase MB Relative Index 8.53H, Troponin I 0.27#H, C-Reactive Protein, Quantitative 6.88H, Albumin/Globulin Ratio 0.46L, Prealbumin 14.9L 09/02/18 07:55: Bedside Glucose (Misc Panel) 174H 09/02/18 08:20: Anion Gap 9, Glomerular Filtration Rate 31.1L, Blood Urea Nitrogen 41H, Creatinine 2.37H, Sodium Level 141, Potassium Level 3.6, Chloride Level 108H, Carbon Dioxide Level 24, Calcium Level 8.4L, Estimated Mean Plasma Glucose 160H, Hemoglobin A1c 7.2 09/02/18 11:39: Bedside Glucose (Misc Panel) 217H 09/02/18 17:09: Bedside Glucose (Misc Panel) 211H CBC/BMP Laboratory Tests 09/01/18 19:05 Calcium Level 8.1 L, Total Creatine Kinase 15 L 09/02/18 00:12 Calcium Level 7.8 L 09/02/18 06:14 Calcium Level 7.9 L, Total Creatine Kinase 34 #L, Red Blood Count 2.80 L, Mean Corpuscular Volume 97.9 H, Mean Corpuscular Hemoglobin 31.4, Mean Corpuscular He moglobin Concent 32.1, Red Cell Distribution Width 15.4 H, Aspartate Amino Transf (AST/SGOT) 22, Alanine Aminotransferase (ALT/SGPT) 16, Alkaline Phosphatase 87, Total Bilirubin 0.5, Total Protein 5.4 L, Albumin 1.7 L 09/02/18 08:20 Calcium Level 8.4 L KEM FARNSWORTH MD Sep 02, 2018 18:46
[2018-09-02 20:00] VITALS: BP 134/69
[2018-09-02] MEDS: SODIUM CHLORIDE 0.9% INJ 10 ML SYR IV PRN (20:20)
[2018-09-03] MEDS: HumaLOG INSULIN (NovoLOG) PER UNIT SC SCH ×4 (00:04→19:19)
[2018-09-03] MEDS: HYDROMORPHONE HCL 0.5 MG/ 0.5 ML SYRINGE (J1170 PER 1) IV PRN ×7 (02:36→21:48)
[2018-09-03] MEDS: metroNIDAZOLE 500 MG in APPROPRIATE DILUENT 1 EA IV SCH ×3 (02:36→18:50)
--- NOTE | 2018-09-03 04:58 | IPN ---
DATE: HISTORY: The patient has had a long hospitalization with a combination of cardiac issues, renal failure and abdominal sepsis. He has stabilized quite a bit and remains on routine hemodialysis at this point. He continues to have significant abdominal pain and some distension. He has just been moved today to a medical-surgical floor from the progressive care unit. Vital signs: Show that he has been afebrile over the last 24 hours. His pulse is in the mid to upper 80s. Blood pressure is good and his room air oxygen saturation is in the mid 90s. Intake and output shows that yesterday he had 1320 in with 3000 of fluid removed at hemodialysis. He is having small bowel movements that are loose and liquid. PHYSICAL EXAMINATION: The patient is alert and seems oriented. He greeted me appropriately as we have not met before. SKIN: Is warm and dry. Sclerae are anicteric. Heart exam shows a regular rhythm. Lungs show generally clear breath sounds. The abdomen is somewhat protuberant. He has a few bowel sounds present. He has some fairly marked tenderness to palpation in the lateral aspect of the abdomen on the right. This is in the mid abdomen. He has tenderness across the entire midabdomen. There is tympany to percussion in the lower central abdomen. There is tenderness in this area as well. Laboratory studies today reveal white count of 16,000 with a hemoglobin of 9, hematocrit of 27 and a platelet count of 337,000. There was no differential done and has not been one done since August 15. Chemistry profile showed a sodium of 141, potassium 3.6, chloride 108, CO2 of 24, BUN of 41, creatinine 2.4 and glucose of 189. He had a labs earlier in the day that showed a C-reactive protein of 6.88 with a total protein of 5.4 and albumin of 1.7. IMAGING STUDIES: I reviewed the CT scan of the patient's abdomen and pelvis from August 29. I also noted the x-ray image of the abdomen from August [address] a CT scan of the abdomen from August 23. These all show a dilated loop of the sigmoid colon filling the central abdomen. The distension has become perhaps a little more on the most recent study. There is significant loss of markings. The surrounding bowel appears healthy as does the rest of the colon. There is no free air or significant free fluid noted at this time. IMPRESSION: The appearance of the bowel as well as his persistent tenderness and distension I think is consistent with persistent ischemia of his sigmoid colon. The patient appears to have improved in many other ways and his renal function is being managed by dialysis. RECOMMENDATIONS: I think at this point it may be reasonable to reconsider the idea of resection. As a prelude to this the patient should have at least a limited flexible sigmoidoscopic exam to assess the sigmoid which I expect will show ischemic changes or sloughing of the mucosa. Certainly, surgery in this patient has a significant risk particularly from a cardiac standpoint but the alternative is to wait with what I think will be a false hope that his colon will heal and he will be able to resume a normal diet. I think he is likely to do much better if we eliminate this source of persistent low grade sepsis. It seems also likely that at some point this loop of bowel may rupture and then he will have quynh peritonitis that requires treatment with a likely less successful outcome than if this is done in a controlled manner. KENDELL
[2018-09-03 06:00] VITALS: BP 140/73
--- NOTE | 2018-09-03 06:03 | IPN ---
DATE OF VISIT: 09/02/2018 HISTORY OF PRESENT ILLNESS: Mr. Shipman is seen this morning on his bedside. He underwent hemodialysis yesterday which he tolerated reasonably well. He remains on total parenteral nutrition (TPN) due to ongoing issues with colitis and pancreatitis. He denies any dyspnea, chest pain, fever or chills. He denies any abdominal pain today. PHYSICAL EXAMINATION: VITAL SIGNS: Temperature 97.1 degrees Fahrenheit, heart rate 84 per minute and respiratory rate 20 per minute. Blood pressure 134/68 mmHg and oxygen saturation 93%. HEAD: His head is atraumatic. NECK: Neck is supple and without jugular venous distention (JVD) or thyroid enlargement. Dialysis catheter is intact without any signs of infection on upper chest. HEART: His heart sounds are regular. LUNGS: Clear to auscultation. ABDOMEN: Abdomen is soft, mildly distended and tender in the lower abdomen. Bowel sounds are present. EXTREMITIES: No cyanosis or clubbing. NEUROLOGICALLY: He is awake, alert and at his baseline mentation. LABORATORY DATA: Today's labs show WBC count 16.0, hemoglobin 8.8, hematocrit 27.4 and platelets 337. Sodium 141, potassium 3.6, CO2 of 24, BUN 41 and creatinine 2.37. PROBLEMS: 1. Acute renal failure. The patient had a complicated hospitalization with acute pancreatitis and cardiac arrest. He has been dialysis dependent for about 4 weeks. However, urine output seems to be improving. He was dialyzed yesterday and we will continue to monitor his renal function on daily basis. 2. Anemia. Anemia is stable at this point and no need for urgent transfusion. We will continue to monitor. 3. Sigmoid colitis. The patient is currently on Cipro and Flagyl. He probably has ischemic bowel and has persistent leukocytosis. He is being followed with surgery and might require surgical exploration. 4. Acute pancreatitis. The patient remains nothing by mouth and on total parenteral nutrition (TPN). Last CAT scan of abdomen and pelvis was done on of this month which did show some peripancreatic fluid collections but no abscesses. 5. Generalized weakness and deconditioning. The patient remains very weak and is going to require rehabilitation. At this point he is not able to get up or move much. 6. Nutrition. The patient remains on TPN which is being ordered by the hospitalist service.
[2018-09-03] MEDS: SODIUM CHLORIDE 0.9% INJ 10 ML SYR IV SCH ×2 (06:07→10:39)
[2018-09-03] MEDS: ISOSORBIDE DIN. (ISORDIL) 30 MG TAB PO SCH ×3 (06:08→18:00)
[2018-09-03 06:15] LABS: BASO # 0.1 10^3/uL (0.0-0.2); BASO % 0.6 % (0.0-1.0); EOS # 0.5 10^3/uL (0.0-0.50); EOS % 3.9 % (0.0-3.0); HEMATOCRIT 28.1 % (42.0-52.0); LYMPH # 1.3 10^3/uL (1.5-4.5); LYMPH % 9.3 % (24.0-44.0); MEAN CORPUSCULAR HEMOGLOBIN 29.1 pg (27.0-33.0); MEAN CORPUSCULAR VOLUME 90.9 fl (80.0-96.0); MONO # 1.6 10^3/uL (0.0-0.8); MONO % 11.4 % (0.0-5.0); NEUTROPHILS # 10.1 10^3/uL (1.8-7.7); NEUTROPHILS % 73.4 % (36.0-66.0); PLATELET COUNT, AUTOMATED 323 10^3/uL (150-450); RED BLOOD COUNT 3.09 10^6/uL (4.30-6.10); WHITE BLOOD COUNT 13.7 10^3/uL (4.0-10.0)
[2018-09-03 06:38] LABS: ALBUMIN 1.8 GM/DL (3.2-5.2); BILIRUBIN,TOTAL 0.4 MG/DL (0.2-1.0); CALCIUM LEVEL 8.2 MG/DL (8.5-10.1); CREATININE FOR GFR 2.32 MG/DL (0.70-1.30); GLOMERULAR FILTRATION RATE 31.9 (>56); MAGNESIUM LEVEL 1.6 MG/DL (1.8-2.4); POTASSIUM SERUM 3.5 MEQ/L (3.5-5.1); TOTAL PROTEIN 6.1 GM/DL (6.4-8.2)
[2018-09-03] MEDS: TIOTROPIUM INHALER/CAPSULE (SPIRIVA) INH SCH (08:00)
[2018-09-03] MEDS: SYMBICORT 160/4.5MCG INHALER 6GM INH SCH ×2 (08:33→19:50)
--- NOTE | 2018-09-03 09:56 | REP ---
Clinical: Colonic ischemia and abdominal distension. Technique: Portable supine view of the abdomen and pelvis. Comparison: 08/27/2018. Findings: Prominent distension of the sigmoid colon is again noted and while the pattern is similar to prior N no volvulus was noted on CT dated 08/29/2018, a sigmoid volvulus cannot definitively be excluded. Remainder of the bowel gas pattern is relatively nonspecific. Underlying ascites cannot be excluded. No significant abnormal calcifications. Skeletal structures are intact and normal. Impression: Prominent distension to the sigmoid colon again noted and while there was no evidence for volvulus on recent CT dated 08/29/2018, calculus cannot definitively be excluded based on current examination. The remainder of the bowel gas pattern is nonspecific. Electronically Signed by Shakeel Ramírez MD 09/03/2018 09:48 A
[2018-09-03] MEDS: PANTOPRAZOLE 40MG INJ (PROTONIX) (C9113) IV SCH (10:38)
[2018-09-03] MEDS: CLOPIDOGREL 75 MG TAB PO SCH (10:40)
[2018-09-03] MEDS: AMIODARONE 200 MG TAB (PACERONE) PO SCH (10:40)
[2018-09-03] MEDS ORDERED: POTASSIUM CHLORIDE 10 MEQ SR TABLET PO ONE (10:45)
[2018-09-03] MEDS: CARVedilol 6.25 MG TAB PO SCH ×2 (10:48→21:47)
[2018-09-03] MEDS ORDERED: MAG SULF 1GM/100ML (MAG RUN) 1 GM in APPROPRIATE DILUENT 1 EA IV ONE (11:00)
--- NOTE | 2018-09-03 11:03 | IPN ---
DATE: 09/03/2018 Mr. Shipman is seen this morning on his bedside. He has a complaint of nausea and abdominal pain. He has no fever or chills. He is being followed by surgery and had another abdominal x-ray done this morning which showed prominent distention of sigmoid colon. He has known history of colitis with possible ischemia and has been treated with Cipro and Flagyl; however, his symptoms have not improved though his leukocytosis has improved over last few days. The patient tells me that Dr. Hidalgo discussed with him about possible colon resection and colostomy. On physical examination, temperature is 98 degrees Fahrenheit, heart rate 85 per minute and respiratory rate 16 per minute. Blood pressure 140/73 mmHg and oxygen saturation 95% on room air. Head is atraumatic. Neck is supple and without jugular venous distention (JVD) or thyroid enlargement. Right internal jugular vein Perma-Cath is in place. Heart sounds are regular and lungs with slightly diminished breath sounds at dependent parts. Abdomen is distended and markedly tender. Bowel sounds are hypoactive. Extremities have no cyanosis or clubbing. Neurologically he is awake, alert and oriented times three. Today's labs show WBC count 13.7, hemoglobin 9.0, hematocrit 28.1. Platelets 323. Sodium 139, potassium 3.5, CO2 of 21, BUN 46 and creatinine 2.32. Glucose is 238 and calcium 8.2. His magnesium is 1.6 and albumin 1.8. Intake and output records from yesterday showed total intake 3160 and output 1125 mL. PROBLEMS: 1. Acute renal failure superimposed on chronic kidney disease. His kidney function seems to be gradually improving with increasing urine output. At this point, I am going to hold off on dialysis and keep checking his renal profile on a daily basis. We will dialyze him only as needed. 2. Hypomagnesemia. The patient is receiving total parenteral nutrition (TPN) and magnesium can be added to the TPN or we can give him a bag run to get his magnesium level corrected. 3. Hypokalemia. This is borderline and related to dialysis. We will continue to monitor as we are not going to dialyze him and replace his potassium with TPN. 5. Anemia. His anemia has been stable and does not need any urgent intervention. 6. Abdominal pain and colitis. The patient remains on Cipro and Flagyl. Surgery is considering to take him to the OR for possible bowel resection for ischemic colon. The patient remains on TPN for his nutrition.
--- NOTE | 2018-09-03 11:08 | IPNPDOC ---
Date Seen The patient was seen on 09/03/18. Progress Note SUBJECTIVE: Dr. Hidalgo 09/03/18 , general surgery, recommends sigmoid resection for chronic ischemia despite high risk with recent <1month NSTEMI. Per Dr. Becker, NSTEMI needs eval w coronary angiogram at some point if due to chf or new plaque rupture. no recurrent chest pains,no nausea/vomiting. full liquid diet resumed. white count is improved on cipro and flagyl. bicarb back to normal after dialysis on 09/01/18. Pt still on TPN. PHYSICAL EXAMINATION: GENERAL: The patient in no respiratory distress HEENT: Normocephalic, atraumatic. NECK: Supple. CARDIAC: Regular. S1, S2. 2/6 systolic murmur. ABDOMEN: Soft, nontender. nondistended. Positive bowel sounds. PULMONARY: diminished at bases EXTREMITIES: 1+ edema. ASSESSMENT AND PLAN: This is a 47-year-old male patient with underlying medical history of coronary artery disease with coronary artery bypass graft (CABG) in 2000, PCI with multiple stents. Most recent cardiac catheterization two years ago, history of congestive heart failure (CHF) with reduced ejection fraction, has a biventricular pacemaker defibrillator, insulin-dependent diabetes, complicated with diabetic neuropathy, chronic obstructive pulmonary disease (COPD), gastroesophageal reflux disease (GERD), hypertension, dyslipidemia, benign prostatic hypertrophy (BPH), history of cerebrovascular accident (CVA), history of methicillin-resistant Staphylococcus aureus (MRSA), sternal osteomyelitis, degenerative joint disease was initially presented to the hospital with shortness of breath and chest tightness. On presentation, the patient was diagnosed with non-ST segment elevation myocardial infarction (NSTEMI). Hospital course complicated with intubation, nitroglycerine drip with also hyperglycemia require insulin drip, complicated with hypotension, shock liver, as well as pancreatitis and also persistent leukocytosis, bonita urea and acute on chronic renal failure. PROBLEMS: Acute severe pancreatitis . Diet not tolerated with increasing abdominal pain. reviewed repeat 08/29/18 CT scan abd/pelvis.Surgery has been consulted. The patient has been on Dilaudid for pain medication. pain management consult. held Pancreatic enzymes while npo Clostridium difficile work up has been negative. d/w Surgery, TPN given poor po. no fever but white count is still unchanged. SOB, resolved. off bipap. abg improved. pulmonary consulted, Symbicort, neb, dayana Abdominal truncal rash as per infection disease, Dr. Hector, likely secondary to hydralazine. The patient's hydralazine has been on stopped . resolving Acute on chronic oliguric renal failure in the setting of ACS/NSTEMI, currently end-stage renal requiring dialysis. Further management as per nephrology. acute metabolic acidosis corrected inhemodialysis, most likely secondary to esrd requiring HD. Persistent leukocytosis, was treated with broad-spectrum antibiotics and antifungal including Diflucan, Zosyn and vancomycin. Sputum culture showed Streptococcus agalactiae. Infectious disease has been consulted. Presently, the patient were discontinued.CRP impro margaret. cipro flagyl restarted by surgery 08/29/18 due to sigmoid thickening and increasing abd pain and distension Chronic ischemic Colitis/Ileus cipro flagyl 08/29/[address] Nolasco surgery due to sigmoid thickening onrepeat CT 08/29/18 and increasing abd pain and distention. still on TPN and full liquids. Covering Surgeon, Dr. Hidalgo 09/03 recommends sigmoid resection due to risk of peritonitis despite high risk due to recent ACS /NSTEMI. Per Dr. Becker, pt needs coronary angiogram . If surgery is recommended, will need reaming machine operator to do cardiac clearance and optimization which may require [facility]'s transfer for angiogram revascularization. Acute coronary syndrome with non-ST segment elevation myocardial infarction (NSTEMI). Continue aspirin and Plavix, Coreg, isosorbide dinitrate. Hydralazine has been on hold given possible reaction. Isosorbide dinitrate has been increased. Automatic implantable cardioverted defibrillator (AICD) has been turned back on. Appreciate Dr. Giordano's input. As per cardiology, patient not a candidate for cardiac intervention in current condition. chest pain 08/31/18 evaluated by night hospitalist, and discussed with Dr. Garcia. card valenzuela and ekg reviewd, and not felt to be cardiac in nature. Acute severe pancreatitis, nausea and vomiting, resolved. abd pain and diarrhea. Appreciate Dr. Nolasco's surgery consult. Diet not tolerated. TPN. repeat ct abd reviewed 08/29/18 Status post shock liver secondary to non-ST segment elevation myocardial infarction (NSTEMI) and congestive heart failure (CHF), currently improved. Generalized weakness and deconditioning. Protein calorie malnutrition. Diet as tolerated. TPN, diet as tolerated History of gastroesophageal reflux disease (GERD). Continue proton pump inhibitor (PPI). Diabetes mellitus. insulin in TPN. and Q6hr protocol. Adjust as needed. Acute on chronic anemia secondary to anemia of chronic disease. Also possible gastrointestinal (GI) bleed, status post 5 units packed red blood cells. Monitor complete blood count (CBC). Consulted GI given recent acute coronary syndrome. The patient is not a candidate for intervention at this time. Continue to monitor. Protein calorie malnutrition. start total parenteral nutrition (TPN) Diet as tolerated. Dietary consult. Ensure clear. Deep vein thrombosis (DVT) prophylaxis. teds and scd given concerns of GI bleed disposition: defer to general surgery if requires emergent sigmoid resection in light of high risk condition with recent <1month NSTEMI/ACS. will need cardiac optimization with coronary angiogram and revasculariation if surgery is planned. this will require [facility]'s transfer . VS, I&O, 24H, [facility] Vital Signs/I&O Vital Signs Date Time Temp Pulse Resp B/P (MAP) Pulse Ox O2 Delivery O2 Flow Rate FiO2 09/03/18 10:48 85 140/73 09/03/18 09:30 16 09/03/18 06:00 98.0 95 Room Air 09/02/18 16:00 2.0 08/31/18 05:32 60 I&O- Last 24 Hours up to 6 AM 09/03/18 06:00 Intake Total 4180 ml Output Total 700 ml Balance 3480 ml Laboratory Data 24H LABS Laboratory Tests 2 09/02/18 11:39: Bedside Glucose (Misc Panel) 217H 09/02/18 17:09: Bedside Glucose (Misc Panel) 211H 09/02/18 23:57: Bedside Glucose (Misc Panel) 190H 09/03/18 05:54: Immature Granulocyte % (Auto) 1.4, White Blood Count 13.7H, Red Blood Count 3.09L, Hemoglobin 9.0L, Hematocrit 28.1L, Mean Corpuscular Volume 90.9, Mean Corpuscular Hemoglobin 29.1, Mean Corpuscular Hemoglobin Concent 32.0, Red Cell Distribution Width 15.1H, Platelet Count 323, Neutrophils (%) (Auto) 73.4H, Lymphocytes (%) (Auto) 9.3L, Monocytes (%) (Auto) 11.4H, Eosinophils (%) (Auto) 3.9H, Basophils (%) (Auto) 0.6, Neutrophils # (Auto) 10.1H, Lymphocytes # (Auto) 1.3L, Monocytes # (Auto) 1.6H, Eosinophils # (Auto) 0.5, Basophils # (Auto) 0.1, Nucleated Red Blood Cells % (auto) 0.0, Anion Gap 8, Glomerular Filtration Rate 31.9L, Blood Urea Nitrogen 46H, Creatinine 2.32H, Sodium Level 139, Potassium Level 3.5, Chloride Level 110H, Carbon Dioxide Level 21, Calcium Level 8.2L, Aspartate Amino Transf (AST/SGOT) 10, Alanine Aminotransferase (ALT/SGPT) 10L, Alkaline Phosphatase 97, Total Bilirubin 0.4, Total Protein 6.1L, Albumin 1.8L, Magnesium Level 1.6L, Albumin/Globulin Ratio 0.42L 09/03/18 05:59: Bedside Glucose (Misc Panel) 195H CBC/BMP Laboratory Tests 09/03/18 05:54 Red Blood Count 3.09 L, Mean Corpuscular Volume 90.9, Mean Corpuscular Hemoglobin 29.1, Mean Corpuscular Hemoglobin Concent 32.0, Red Cell Distribution Width 15.1 H, Neutrophils (%) (Auto) 73.4 H, Lymphocytes (%) (Auto) 9.3 L, Monocytes (%) (Auto) 11.4 H, Eosinophils (%) (Auto) 3.9 H, Basophils (%) (Auto) 0.6, Neutrophils # (Auto) 10.1 H, Lymphocytes # (Auto) 1.3 L, Monocytes # (Auto) 1.6 H, Eosinophils # (Auto) 0.5, Basophils # (Auto) 0.1, Calcium Level 8.2 L, As partate Amino Transf (AST/SGOT) 10, Alanine Aminotransferase (ALT/SGPT) 10 L, Alkaline Phosphatase 97, Total Bilirubin 0.4, Total Protein 6.1 L, Albumin 1.8 L KEM FARNSWORTH MD Sep 03, 2018 11:08
--- NOTE | 2018-09-03 12:18 | REP ---
Clinical: Abdominal distension and ischemic bowel. Technique: Axial noncontrast images from the lung bases to the pubic symphysis with coronal and sagittal re-formations. Comparison: 08/29/2018, 08/23/2018. Findings: Moderate bilateral pleural effusions with bibasilar consolidations and atelectasis appreciated along with cardiomegaly and mild prominent pulmonary vasculature. These findings are essentially unchanged compared to 08/29/2018. Small amount of ascites along with diffuse infiltration to the mesentery and significant fluid/inflammatory changes surrounding the pancreas are essentially unchanged. Fluid is identified in the courtney hepatic and bilateral paracolic gutter distribution as well as trapped fluid extending through the right inguinal canal into the right zahra scrotum. Liver, spleen, gallbladder, bilateral adrenal glands and kidneys are within normal limits and stable. Small amount of layering gravel in the gallbladder cannot be excluded. The enteric system is without obstruction or obvious acute focal inflammatory process. No free air is identified to suggest bowel perforation and overall appearance of the small large bowel is essentially unchanged. Pelvis demonstrates normal bladder and age appropriate prostate/seminal vesicles. Fluid is again identified extending via the right inguinal canal into the right zahra scrotum and there is evidence for diffuse scrotal wall thickening. The subcutaneous tissues demonstrate moderate edematous infiltration essentially unchanged. Abdominal aorta without aneurysm. Musculoskeletal structures demonstrate stable degenerative changes. Impression: 1. Stable findings throughout the lower chest and abdomen/pelvis. 2. No evidence for bowel obstruction or pneumoperitoneum to suggest bowel perforation. Electronically Signed by Shakeel Ramírez MD 09/03/2018 12:10 P
--- NOTE | 2018-09-03 13:45 | IPNPDOC ---
Subjective General Date/Time Seen The patient was seen on 09/03/18 at 13:38. Subject Chief Complaint/History Patient is being followed for initially acute pancreatitis now for sigmoid colitis possibly ischemic colitis Patient continues room reports of significant abdominal pain now more centered over the right lower abdomen. He tells needs 10 out of 10. He's been getting significant amounts of narcotics. He has tried some oral fluid intake over the weekend but reports he is having diarrhea after taking oral intake. He denies any nausea but has poor appetite. He has been afebrile, he is hemodynamically stable. He remains on dialysis but reports he is making more urine. Current Medications Current Medications Current Medications Acetaminophen (Tylenol Suspension) 650 mg Q4HP PRN GT PAIN OR FEVER Last administered on 08/11/18at 07:09; Start 08/03/18 at 10:45; Stop 08/11/18 at 09:27; Status DC Acetaminophen (Tylenol Tab) 650 mg Q6HP PRN PO PAIN / FEVER Last administered on 08/21/18at 06:39; Start 08/20/18 at 17:30 Albuterol Sulfate (Proventil Neb) 2.5 mg Q2HP PRN NEB SOB/WHEEZING Last administered on 09/01/18at 03:00; Start 08/27/18 at 06:15 Albuterol Sulfate (Proventil Neb) 2.5 mg RQID NEB Last administered on 08/27/18at 20:46; Start 07/31/18 at 08:00; Stop 08/28/18 at 10:00; Status DC Amiodarone HCl (Pacerone, Cordarone) 400 mg DAILY PO Last administered on 09/03/18at 10:40; Start 08/14/18 at 09:00 Amiodarone HCl (Pacerone, Cordarone) 400 mg Q12H GT Last administered on 08/13/18at 10:15; Start 08/11/18 at 09:00; Stop 08/13/18 at 15:15; Status DC Amiodarone HCl (Pacerone, Cordarone) 400 mg Q8H GT Last administered on 08/10/18at 21:26; Start 08/02/18 at 22:00; Stop 08/10/18 at 21:52; Status DC Amiodarone HCl 360 mg/IV Miscellaneous Supplies 200 ml @ 16.66 mls/ hr Q12H1M IV ; Start 08/02/18 at 20:00; Stop 08/02/18 at 20:00; Status DC Amiodarone HCl 360 mg/IV Miscellaneous Supplies 200 ml @ 33.33 mls/ hr Q6H1M IV Last administered on 08/02/18at 13:30; Start 08/02/18 at 14:00; Stop 08/02/18 at 20:00; Status DC Aspirin (Aspirin Chewable) 81 mg BID NG Last administered on 08/13/18at 10:14; Start 07/31/18 at 09:00; Stop 08/13/18 at 15:15; Status DC Aspirin (Ecotrin) 81 mg BID PO ; Start 07/31/18 at 09:00; Stop 07/31/18 at 12 :11; Status DC Aspirin (Ecotrin) 81 mg DAILY PO Last administered on 08/26/18at 08:51; Start 08/14/18 at 09:00; Stop 08/27/18 at 06:28; Status DC Bisoprolol Fumarate (Zebeta) 2.5 mg Q12H GT Last administered on 08/10/18at 09:18; Start 08/02/18 at 21:00; Stop 08/10/18 at 11:23; Status DC Budesonide/ Formoterol Fumarate (Symbicort 160/ 4.5mcg) 2 puff BID INH Last administered on 09/03/18at 08:33; Start 08/27/18 at 09:00 Calcium Gluconate 1000 mg/Dextrose 110 ml @ 110 mls/hr ASDIRECTED IV ; Start 08/03/18 at 16:00; Status UNV Calcium Gluconate 1000 mg/Dextrose 110 ml @ 110 mls/hr Q1H IV Last administered on 08/03/18at 17:18; Start 08/03/18 at 16:30; Stop 08/03/18 at 18:29; Status DC Calcium Gluconate 1000 mg/Dextrose 110 ml @ 110 mls/hr Q1H IV Last administered on 08/04/18at 10:15; Start 08/04/18 at 09:00; Stop 08/04/18 at 10:59; Status DC Calcium Gluconate 1000 mg/Dextrose 110 ml @ 110 mls/hr Q1H IV Last administered on 08/04/18at 16:00; Start 08/04/18 at 15:00; Stop 08/04/18 at 16:59; Status DC Calcium Gluconate 1000 mg/Dextrose 110 ml @ 110 mls/hr Q1H IV Last adm inistered on 08/05/18at 16:12; Start 08/05/18 at 15:00; Stop 08/05/18 at 16:59; Status DC Calcium Gluconate 1000 mg/Sodium Chloride 110 ml @ 110 mls/hr ASDIRECTED IV ; Start 08/04/18 at 21:30; Stop 08/04/18 at 22:23; Status DC Calcium Gluconate 1000 mg/Sodium Chloride 110 ml @ 110 mls/hr Q1H IV Last administered on 08/05/18at 00:39; Start 08/04/18 at 22:30; Stop 08/05/18 at 01:29; Status DC Calcium Gluconate 1000 mg/Sodium Chloride 110 ml @ 110 mls/hr Q1H IV Last administered on 08/05/18at 04:43; Start 08/05/18 at 03:00; Stop 08/05/18 at 04:59; Status DC Calcium Gluconate 1000 mg/Sodium Chloride 110 ml @ 110 mls/hr Q1H IV Last administered on 08/05/18at 10:15; Start 08/05/18 at 09:00; Stop 08/05/18 at 10:59; Status DC Carvedilol (COReg) 6.25 mg BID PO Last administered on 09/03/18at 10:48; Start 08/16/18 at 21:00 Carvedilol (COReg) 6.25 mg BID PO Last administered on 08/16/18at 08:02; Start 08/13/18 at 21:00; Stop 08/16/18 at 21:07; Status DC Carvedilol (COReg) 6.25 mg Q6H NG Last administered on 07/31/18at 18:13; Start 07/31/18 at 12:00; Stop 08/02/18 at 16:05; Status DC Chlorhexidine Gluconate (Peridex Oral Rinse) SWAB/BRUSH ORAL CAVITY BID MT Last administered on 08/12/18at 08:49; Start 07/31/18 at 09:00; Stop 08/12/18 at 19:14; Status DC Ciprofloxacin 200 mg/IV Miscellaneous Supplies 100 ml @ 100 mls/hr Q12H IV Last administered on 09/02/18at 23:59; Start 08/29/18 at 12:00 Clopidogrel Bisulfate (PLAVix) 75 mg DAILY PO Last administered on 09/03/18at 10:40; Start 07/31/18 at 09:00 Darbepoetin Jay (Aranesp (Dialysis Use)) 200 mcg HD IV ; Start 08/18/18 at 11:15 Dextrose (Dextrose 50%) 25 ml ASDIRECTED PRN IV SEE LABEL COMMENTS Last administered on 08/11/18at 01:22; Start 08/02/18 at 02:00 Diatrizoate Meglum/ Diatrizoate Sod (Gastrografin) 10 ml Q30M PO Last administered on 08/23/18at 08:21; Start 08/23/18 at 07:30; Stop 08/23/18 at 08:01 ; Status DC Diatrizoate Meglum/ Diatrizoate Sod (Gastrografin) 10 ml Q30M PO Last administered on 08/10/18at 13:51; Start 08/10/18 at 12:00; Stop 08/10/18 at 13:05; Status DC Digoxin (Lanoxin) 0.25 mg Q6H IV Last administered on 08/02/18at 09:50; Start 08/01/18 at 21:00; Stop 08/02/18 at 15:01; Status DC Diphenhydramine HCl (Benadryl) 25 mg Q6HP PRN PO ITCHING Last administered on 08/19/18at 14:44; Start 08/18/18 at 18:00 Etomidate (Amidate) 20 mg STAT STAT IV Last administered on 07/31/18at 05:13; Start 07/31/18 at 05:30; Stop 07/31/18 at 05:47; Status DC Fat Emulsion Intravenous 500 ml @ 20 mls/hr ONCE@1800 IV Last administered on 08/17/18at 18:39; Start 08/17/18 at 18:00; Stop 08/18/18 at 17:59; Status DC Fat Emulsion Intravenous 500 ml @ 20 mls/hr ONCE@1800 IV Last administered on 08/18/18at 17:23; Start 08/18/18 at 18:00; Stop 08/19/18 at 12:16; Status DC Fat Emulsion Intravenous 500 ml @ 20 mls/hr ONCE@1800 IV Last administered on 08/24/18at 18:29; Start 08/24/18 at 18:00; Stop 08/25/18 at 17:59; Status DC Fat Emulsion Intravenous 500 ml @ 20 mls/hr ONCE@1800 IV Last administered on 08/25/18at 18:37; Start 08/25/18 at 18:00; Stop 08/26/18 at 17:59; Status DC Fat Emulsion Intravenous 500 ml @ 20 mls/hr ONCE@1800 IV Last administered on 08/26/18at 18:05; Start 08/26/18 at 18:00; Stop 08/27/18 at 17:59; Status DC Fat Emulsion Intravenous 500 ml @ 20 mls/hr ONCE@1800 IV Last administered on 08/27/18at 17:54; Start 08/27/18 at 18:00; Stop 08/28/18 at 17:59; Status DC Fat Emulsion Intravenous 500 ml @ 20 mls/hr ONCE@1800 IV Last administered on 08/28/18at 17:18; Start 08/28/18 at 18:00; Stop 08/29/18 at 17:59; Status DC Fat Emulsion Intravenous 500 ml @ 20 mls/hr ONCE@1800 IV Last administered on 08/29/18at 17:46; Start 08/29/18 at 18:00; Stop 08/30/18 at 17:59; Status DC Fat Emulsion Intravenous 500 ml @ 20 mls/hr ONCE@1800 IV Last administered on 08/30/18at 18:01; Start 08/30/18 at 18:00; Stop 08/31/18 at 17:59; Status DC Fat Emulsion Intravenous 500 ml @ 20 mls/hr ONCE@1800 IV Last administered on 08/31/18at 19:16; Start 08/31/18 at 18:00; Stop 09/01/18 at 17:59; Status DC Fat Emulsion Intravenous 500 ml @ 20 mls/hr ONCE@1800 IV Last administered on 09/01/18at 18:51; Start 09/01/18 at 18:00; Stop 09/02/18 at 17:59; Status DC Fat Emulsion Intravenous 500 ml @ 20 mls/hr ONCE@1800 IV Last administered on 09/02/18at 18:21; Start 09/02/18 at 18:00; Stop 09/03/18 at 17:59 Fat Emulsion Intravenous 500 ml @ 20 mls/hr ONCE@1800 IV Last administered on 08/12/18at 18:01; Start 08/12/18 at 18:00; Stop 08/13/18 at 17:59; Status DC Fat Emulsion Intravenous 500 ml @ 20 mls/hr ONCE@1800 IV Last administered on 08/13/18at 17:50; Start 08/13/18 at 18:00; Stop 08/14/18 at 17:59; Status DC Fentanyl Citrate (Sublimaze) 25 mcg Q1HP PRN IV Pain Last administered on 08/09/18 16:51; Start 08/02/18 at 12:15; Stop 08/12/18 at 09:12; Status DC Fluconazole 100 mg/IV Miscellaneous Supplies 50 ml @ 50 mls/hr Q24H IV Last administered on 08/13/18at 15:22; Start 08/08/18 at 16:00; Stop 08/13/18 at 22:06; Status DC Furosemide (LASIX injection) 100 mg STAT STAT IV Last administered on 07/31/18at 05:05; Start 07/31/18 at 05:38; Stop 07/31/18 at 05:41; Status DC Glucagon (Glucagon) 1 mg ASDIRECTED PRN SC SEE LABEL COMMENTS; Start 08/02/18 at 02:00 Glucose (Glucose) 16 GM ASDIRECTED PRN PO SEE LABEL COMMENTS; Start 08/02/18 at 02:00 Heparin Sodium (Heparin Lock Flush 10units/ml) 10 units ASDIRECTED PRN IV SEE LABEL COMMENTS Last administered on 08/18/18at 19:49; Start 08/03/18 at 10:30; Stop 08/20/18 at 14:11; Status DC Heparin Sodium (Heparin Lock Flush 10units/ml) 10 units HLF IV Last administered on 08/20/18at 05:24; Start 08/03/18 at 14:00; Stop 08/20/18 at 14:11; Status DC Heparin Sodium (Heparin Lock Flush 10units/ml) 30 units ASDIRECTED PRN IV SEE LABEL COMMENTS Last administered on 09/02/18at 20:20; Start 08/30/18 at 02:15 Heparin Sodium (Heparin Lock Flush 10units/ml) 30 units DAILY IV Last administered on 09/03/18at 10:39; Start 08/30/18 at 09:00 Heparin Sodium (Heparin) ASDIRECTED PRN IV SEE LABEL COMMENTS; Start 08/03/18 at 12:30; Stop 08/07/18 at 10:09; Status DC Heparin Sodium (Heparin) ASDIRECTED PRN IV SEE LABEL COMMENTS Last administered on 08/14/18at 02:20; Start 08/05/18 at 04:00 Heparin Sodium (Porcine) (Heparin) ASDIRECTED PRN IV SEE LABEL COMMENTS; Start 07/31/18 at 12:30; Stop 07/31/18 at 12:37; Status DC Heparin Sodium (Porcine) (Heparin) ASDIRECTED PRN IV SEE LABEL COMMENTS Last administered on 07/31/18at 21:31; Start 07/31/18 at 12:45; Stop 08/03/18 at 21:46; Status DC Heparin Sodium (Porcine) (Heparin) 5,000 units Q12H SQ Last administered on 08/13/18at 15:22; Start 08/13/18 at 09:00; Stop 08/13/18 at 17:55; Status DC Heparin Sodium (Porcine) (Heparin) 5,000 units Q8H SC ; Start 07/31/18 at 06:00; Stop 07/31/18 at 12:11; Status DC Heparin Sodium (Porcine) 65302 units/IV Miscellaneous Supplies 250 ml @ 0 mls/hr Q0M IV ; Start 07/31/18 at 12:18; Status UNV Heparin Sodium (Porcine) 74073 units/IV Miscellaneous Supplies 250 ml @ 0 mls/hr Q0M IV ; Start 07/31/18 at 12:38; Stop 07/31/18 at 12:43; Status DC Heparin Sodium (Porcine) 86764 units/IV Miscellaneous Supplies 250 ml @ 0 mls/hr Q0M IV Last administered on 08/02/18at 09:40; Start 07/31/18 at 12:41; Stop 08/03/18 at 21:34; Status DC Home Med (Med Rec Complete!) ASDIRECTED XX ; Start 07/31/18 at 07:30; Stop 07/31/18 at 07:30; Status DC Hydralazine HCl (Apresoline) 10 mg QID PO Last administered on 08/21/18at 09:04; Start 08/16/18 at 21:00; Stop 08/21/18 at 10:17; Status DC Hydralazine HCl (Apresoline) 10 mg QID PO Last administered on 08/16/18at 17:47; Start 08/13/18 at 17:00; Stop 08/16/18 at 21:07; Status DC Hydralazine HCl (Apresoline) 10 mg TID PO Last administered on 08/21/18at 17:20; Start 08/21/18 at 16:00; Stop 08/21/18 at 18:01; Status DC Hydralazine HCl (Apresoline) 20 mg STAT STAT IV Last administered on 07/31/18at 05:09; Start 07/31/18 at 05:15; Stop 07/31/18 at 05:41; Status DC Hydromorphone HCl (Dilaudid) 0.2 mg Q3HP PRN IV MILD PAIN (PS 1-4); Start 08/07 12/23 at 12:45; Stop 08/22/18 at 10:37; Status DC Hydromorphone HCl (Dilaudid) 0.2 mg Q3HP PRN IV MILD PAIN (PS 1-4); Start 08/22/18 at 10:45; Stop 08/23/18 at 08:57; Status DC Hydromorphone HCl (Dilaudid) 0.3 mg Q3HP PRN IV MILD PAIN (PS 1-4) Last administered on 09/02/18at 20:20; Start 08/23/18 at 09:00 Hydromorphone HCl (Dilaudid) 0.4 mg Q3HP PRN IV MODERATE PAIN (PS 5-7) Last administered on 08/22/18at 09:20; Start 08/21/18 at 12:45; Stop 08/22/18 at 10:37; Status DC Hydromorphone HCl (Dilaudid) 0.4 mg Q3HP PRN IV MODERATE PAIN (PS 5-7) Last administered on 08/23/18at 08:30; Start 08/22/18 at 10:45; Stop 08/23/18 at 08:57; Status DC Hydromorphone HCl (Dilaudid) 0.6 mg Q3HP PRN IV MODERATE PAIN (PS 5-7) Last administered on 08/31/18at 05:32; Start 08/23/18 at 09:00; Stop 08/31/18 at 07:12; Status DC Hydromorphone HCl (Dilaudid) 0.9 mg Q3HP PRN IV SEVERE PAIN (PS 8-10) Last administered on 09/03/18at 12:29; Start 08/31/18 at 07:15 Insulin Detemir (Levemir Insulin) 10 units QHS SC Last administered on 08/16/18at 21:39; Start 08/14/18 at 21:00; Stop 08/17/18 at 08:27; Status DC Insulin Detemir (Levemir Insulin) 25 units QAM SC Last administered on 08/25/18at 09:04; Start 08/20/18 at 09:00; Stop 08/25/18 at 09:24; Status DC Insulin Detemir (Levemir Insulin) 25 units QAM SC Last administered on 08/18/18at 10:57; Start 08/15/18 at 09:00; Stop 08/19/18 at 07:53; Status DC Insulin Detemir (Levemir Insulin) 25 units QHS SC Last administered on 08/13/18at 18:21; Start 08/13/18 at 18:15; Stop 08/14/18 at 08:08; Status DC Insulin Detemir (Levemir Insulin) 35 units QAM SC Last administered on 08/19/18at 08:51; Start 08/19/18 at 09:00; Stop 08/20/18 at 07:35; Status DC Insulin Human Lispro (HumaLOG INSULIN) SEE PROTOCOL TABLE AC SC Last administered on 08/24/18at 12:51; Start 08/15/18 at 07:30; Stop 08/24/18 at 20:12; Status DC Insulin Human Lispro (HumaLOG INSULIN) SEE PROTOCOL TABLE AC SC ; Start 08/15/18 at 07:30; Stop 08/15/18 at 07:30; Status DC Insulin Human Lispro (HumaLOG INSULIN) SEE PROTOCOL TABLE Q6H SC Last administered on 09/03/18at 06:07; Start 08/25/18 at 00:00 Insulin Human Lispro (HumaLOG INSULIN) SEE PROTOCOL TABLE Q6H SC Last administered on 08/10/18at 11:37; Start 08/08/18 at 12:00; Stop 08/10/18 at 16:59; Status DC Insulin Human Lispro (HumaLOG INSULIN) SEE PROTOCOL TABLE Q6H SC Last administered on 08/08/18at 05:58; Start 08/02/18 at 12:00; Stop 08/08/18 at 07:35; Status DC Insulin Human Lispro (HumaLOG INSULIN) SEE PROTOCOL TABLE QHS SC Last administered on 08/14/18at 20:59; Start 08/14/18 at 21:00; Stop 08/24/18 at 20:12; Status DC Insulin Human Lispro (HumaLOG INSULIN) See Protocol Table Q6H SC Last administered on 08/18/18at 06:12; Start 08/17/18 at 18:00; Stop 08/18/18 at 12:01; Status DC Insulin Human Lispro (HumaLOG INSULIN) See Protocol Table Q6H SC Last administered on 08/19/18at 12:48; Start 08/18/18 at 18:00; Stop 08/19/18 at 12:01; Status DC Insulin Human Lispro (HumaLOG INSULIN) See Protocol Table Q6H SC ; Start 9 at 18:00; Stop 08/25/18 at 23:46; Status DC Insulin Human Lispro (HumaLOG INSULIN) See Protocol Table Q6H SC ; Start 09/02/18 at 18:00; Stop 09/03/18 at 12:01; Status Cancel Insulin Human Lispro (HumaLOG INSULIN) See Protocol Table Q6H SC Last administered on 08/13/18at 12:09; Start 08/12/18 at 18:00; Stop 08/13/18 at 12:01; Status DC Insulin Human Lispro (HumaLOG INSULIN) See Protocol Table Q6H SC Last administered on 08/14/18at 13:03; Start 08/13/18 at 18:00; Stop 08/14/18 at 12:01; Status DC Insulin Human Regular 100 units/ Sodium Chloride 100 ml @ 4.5 mls/hr [id number] IV Last administered on 08/12/18at 11:49; Start 08/10/18 at 12:00; Stop 08/12/18 at 14:57; Status DC Insulin Human Regular 100 units/ Sodium Chloride 100 ml @ 3 mls/hr Q24H IV ; Start 07/31/18 at 07:00; Stop 07/31/18 at 11:42; Status DC Insulin Human Regular 100 units/ Sodium Chloride 100 ml @ 5 mls/hr Q20H IV Last administered on 07/31/18at 06:44; Start 07/31/18 at 06:45; Stop 07/31/18 at 09:36; Status DC Insulin Human Regular 100 units/ Sodium Chloride 100 ml @ 8 mls/hr [id number] IV Last administered on 08/02/18at 04:13; Start 07/31/18 at 07:00; Stop 08/02/18 at 10:05; Status DC Isosorbide Dinitrate (Isordil) 10 mg TID@07,12,17 PO Last administered on 08/21/18at 06:39; Start 08/13/18 at 17:00; Stop 08/21/18 at 10:17; Status DC Isosorbide Dinitrate (Isordil) 20 mg TID@07,12,17 PO Last administered on at 06:14; Start 08/21/18 at 12:00; Stop 08/25/18 at 07:41; Status DC Isosorbide Dinitrate (Isordil) 30 mg TID@07,12,17 PO Last administered on 09/03/18at 06:08; Start 08/25/18 at 12:00 Lactobacillus Acidophilus (Bacid) 1 ea WM PO Last administered on 08/29/18at 08:38; Start 08/21/18 at 12:30; Stop 08/29/18 at 14:27; Status DC Levetiracetam 500 mg/Dextrose 105 ml @ 420 mls/hr Q12H IV Last administered on 08/12/18at 08:49; Start 08/05/18 at 09:00; Stop 08/12/18 at 09:12; Status DC Loperamide HCl (Imodium) 2 mg ASDIRECTED PRN PO DIARRHEA Last administered on 08/23/18at 12:00; Start 08/22/18 at 15:45; Stop 08/29/18 at 09:29; Status DC Methylprednisolone (SOLU medrol) 40 mg Q8H IV ; Start 08/27/18 at 06:00; Stop 08/27/18 at 06:45; Status DC Methylprednisolone (SOLUmedrol) 40 mg Q12H IV Last administered on 08/27/18at 08:36; Start 08/27/18 at 06:00; Stop 08/27/18 at 09:30; Status DC Metoclopramide HCl (REGLAN INJection) 5 mg Q8H IV Last administered on 08/11/18at 02:13; Start 08/06/18 at 02:00; Stop 08/11/18 at 09:27; Status DC Metoclopramide HCl (REGLAN INJection) 10 mg Q6H IV Last administered on 08/05/18at 17:52; Start 08/05/18 at 18:00; Stop 08/05/18 at 20:41; Status DC Metronidazole 500 mg/IV Miscellaneous Supplies 100 ml @ 100 mls/hr Q8H IV Last administered on 09/03/18at 10:39; Start 08/29/18 at 11:00 Midazolam HCl (Versed) 2 mg Q15MP PRN IV AGITATION Last administered on 08/10/18at 18:33; Start 08/05/18 at 04:45; Stop 08/12/18 at 09:12; Status DC Midazolam HCl (Versed) 2 mg Q1HP PRN IV AGITATION Last administered on 08/05/18at 04:07; Start 08/02/18 at 21:00; Stop 08/05/18 at 04:43; Status DC Miscellaneous (Unresolved Clarification Entry) SEE LABEL COMMENTS DAILY XX ; Start 08/08/18 at 09:00; Stop 08/08/18 at 15:02; Status DC Miscellaneous (Unresolved Clarification Entry) SEE LABEL COMMENTS DAILY XX ; Start 08/29/18 at 09:00; Stop 08/29/18 at 14:28; Status DC Miscellaneous (Unresolved Clarification Entry) SEE LABEL COMMENTS DAILY XX ; Start 08/14/18 at 09:00; Stop 08/14/18 at 18:25; Status DC Morphine Sulfate (Morphine Sulfate Inj) 2 mg Q4HP PRN IV PAIN Last administered on 08/17/18at 08:53; Start 08/17/18 at 08:45; Stop 08/17/18 at 11:21; Status DC Morphine Sulfate (Morphine Sulfate Inj) 4 mg Q3HP PRN IV PAIN Last administered on 08/20/18at 06:17; Start 08/17/18 at 11:30; Stop 08/20/18 at 10:05; Status DC Nitroglycerin (Nitrostat (1/ 150)) 0.4 mg Q5MP PRN SL CHEST PAIN Last administered on 08/31/18at 22:41; Start 08/27/18 at 05:45 Nitroglycerin 25 mg/IV Miscellaneous Supplies 250 ml @ 3 mls/hr Q24H IV Last administered on 07/31/18at 05:01; Start 07/31/18 at 05:00; Stop 07/31/18 at 09:41; Status DC Non-Formulary Medication ( See Comment Field Below ) [facility]. DOSING ASDIRECTED XX ; Start 08/11/18 at 06:45; Stop 08/14/18 at 03:08; Status DC Non-Formulary Medication (Heparin Iv Rate Change Documentation ml/ Hr) A SDIRECTED XX ; Start 07/31/18 at 12:30; Stop 07/31/18 at 12:37; Status DC Non-Formulary Medication (Heparin Iv Rate Change Documentation ml/ Hr) ASDIRECTED XX Last administered on 08/02/18at 08:04; Start 07/31/18 at 12:45; Stop 08/03/18 at 21:34; Status DC Non-Formulary Medication (Insulin Iv Rate Change Documentation ml/ Hr) ASDIRECTED XX Last administered on 08/12/18at 02:52; Start 08/10/18 at 11:30; Stop 08/12/18 at 19:45; Status DC Non-Formulary Medication (Insulin Iv Rate Change Documentation ml/ Hr) ASDIRECTED XX ; Start 07/31/18 at 06:45; Stop 07/31/18 at 09:36; Status DC Non-Formulary Medication (Insulin Iv Rate Change Documentation ml/ Hr) ASDIRECTED XX ; Start 07/31/18 at 07:00; Stop 07/31/18 at 11:42; Status DC Non-Formulary Medication (Insulin Iv Rate Change Documentation ml/ Hr) ASDIRECTED XX Last administered on 08/02/18at 08:27; Start 07/31/18 at 11:45; Stop 08/02/18 at 10:05; Status DC Norepinephrine Bitartrate 16 mg/ Dextrose 500 ml @ 18.8 mls/hr Q24H IV Last administered on 08/10/18at 11:58; Start 08/05/18 at 00:00; Stop 08/12/18 at 14:59; Status DC Norepinephrine Bitartrate 8 mg/ Dextrose 500 ml @ 37.5 mls/hr [id number] IV Last administered on 07/31/18at 08:00; Start 07/31/18 at 07:51; Stop 07/31/18 at 19:59; Status DC Norepinephrine Bitartrate 8 mg/ Dextrose 500 ml @ 67.5 mls/hr Q7H25M IV Last administered on 08/04/18at 19:42; Start 07/31/18 at 20:00; Stop 08/04/18 at 21:04; Status DC Ondansetron HCl (ZOFRAN INJection) 4 mg Q6HP PRN IV NAUSEA OR VOMITING Last administered on 08/24/18at 18:28; Start 08/16/18 at 13:30 Oxycodone/ Acetaminophen (Percocet 5mg/ 325mg Tablet) 1 tab Q4HP PRN PO MILD/MODERATE PAIN (PS 1-7) Last administered on 08/20/18at 10:01; Start 08/18/18 at 09:45; Stop 08/20/18 at 10:05; Status DC Oxycodone/ Acetaminophen (Percocet 5mg/ 325mg Tablet) 2 tab Q6HP PRN PO SEVERE PAIN (PS 8-10) Last administered on 08/19/18at 21:01; Start 08/18/18 at 09:45; Stop 08/20/18 at 10:05; Status DC Pancrelipase (Creon-24) 1 ea WM PO Last administered on 08/21/18at 17:23; Start 08/21/18 at 18:00; Stop 08/22/18 at 07:31; Status DC Pancrelipase (Creon-24) 2 ea WM PO Last administered on 08/29/18at 08:39; Start 08/22/18 at 08:00; Stop 08/29/18 at 14:27; Status DC Pantoprazole Sodium (Protonix) 40 mg BID IV Last administered on 08/19/18at 21:00; Start 08/15/18 at 09:00; Stop 08/20/18 at 08:59; Status DC Pantoprazole Sodium (Protonix) 40 mg DAILY IV Last administered on 09/03/18at 10:38; Start 09/01/18 at 09:00 Pantoprazole Sodium (Protonix) 40 mg DAILY IV Last administered on 08/14/18at 09:18; Start 07/31/18 at 09:00; Stop 08/15/18 at 08:52; Status DC Piperacillin Sod/ Tazobactam Sod 3.375 gm/Dextrose 50 ml @ 50 mls/hr Q6H IV Last administered on 08/14/18at 18:09; Start 08/02/18 at 13:00; Stop 08/14/18 at 18:25; Status DC Piperacillin Sod/ Tazobactam Sod 4.5 gm/Dextrose 50 ml @ 50 mls/hr Q6H IV Last administered on 08/02/18at 05:26; Start 07/31/18 at 12:00; Stop 08/02/18 at 13:59; Status DC Propofol 1000 mg/ IV Miscellaneous Supplies 100 ml @ 5.25 mls/hr Q19H3M IV Last administered on 07/31/18at 16:56; Start 07/31/18 at 07:51; Stop 07/31/18 at 17:25; Status DC Propofol 1000 mg/ IV Miscellaneous Supplies 100 ml @ 5.25 mls/hr Q19H3M IV Last administered on 08/02/18at 16:59; Start 07/31/18 at 17:24; Stop 08/06/18 at 09:32; Status DC Propofol 1000 mg/ IV Miscellaneous Supplies 100 ml @ 17.33 mls/ hr Q5H47M IV Last administered on 07/31/18at 05:17; Start 07/31/18 at 05:45; Stop 07/31/18 at 08:07; Status DC Rosuvastatin Calcium (Crestor) 20 mg DAILY PO Last administered on 08/03/18at 09:16; Start 07/31/18 at 09:00; Stop 08/03/18 at 21:47; Status DC Sacubitril/ Valsartan (Entresto 24-26 Mg) 2 tab BID PO Last administered on 07/31/18at 20:08; Start 07/31/18 at 21:00; Stop 08/01/18 at 16:02; Status DC Sodium Bicarbonate 150 meq/Dextrose/Water 1,150 ml @ 100 mls/hr [id number] IV Last administered on 08/03/18at 10:51; Start 08/02/18 at 21:00; Stop 08/03/18 at 18:53; Status DC Sodium Bicarbonate (Sodium Bicarbonate) 50 meq STAT STAT IV Last administered on 07/31/18at 08:00; Start 07/31/18 at 09:02; Stop 07/31/18 at 09:04; Status DC Sodium Bicarbonate (Sodium Bicarbonate) 325 mg QID PO Last administered on 09/01/18at 17:26; Start 09/01/18 at 09:00; Stop 09/01/18 at 18:20; Status DC Sodium Chloride 1,000 ml @ 3 mls/hr Q24H IV Last administered on 08/15/18at 21:11; Start 08/12/18 at 23:00; Stop 08/16/18 at 17:07; Status DC Sodium Chloride 1,000 ml @ 3 mls/hr Q24H IV Last administered on 08/14/18at 00:20; Start 08/12/18 at 23:00; Stop 08/15/18 at 22:31; Status DC Sodium Chloride (Saline Lock Flush) 2 ml ASDIRECTED PRN IV SEE LABEL COMMENTS; Start 08/20/18 at 14:15; Status Cancel Sodium Chloride (Saline Lock Flush) 2 ml ASDIRECTED PRN IV SEE LABEL COMMENTS; Start 08/03/18 at 10:30; Stop 08/05/18 at 21:38; Status DC Sodium Chloride (Saline Lock Flush) 2 ml SLF IV Last administered on 09/02/18at 14:00; Start 08/20/18 at 22:00; Stop 09/03/18 at 03:57; Status DC Sodium Chloride (Saline Lock Flush) 2 ml SLF IV Last administered on 08/04/18at 06:27; Start 08/03/18 at 14:00; Stop 08/05/18 at 21:38; Status DC Sodium Chloride (Saline Lock Flush) 10 ml ASDIRECTED PRN IV SEE LABEL COMMENTS Last administered on 09/02/18at 20:20; Start 08/30/18 at 02:15 Sodium Chloride (Saline Lock Flush) 10 ml ASDIRECTED PRN IV SEE LABEL COMMENTS Last administered on 08/18/18at 19:49; Start 08/03/18 at 10:30; Stop 08/20/18 at 14:11; Status DC Sodium Chloride (Saline Lock Flush) 10 ml DAILY IV Last administered on 09/03/18at 10:39; Start 08/30/18 at 09:00 Sodium Chloride (Saline Lock Flush) 10 ml SLF IV Last administered on 08/20/18at 05:24; Start 08/03/18 at 14:00; Stop 08/20/18 at 14:11; Status DC Sodium Chloride (Saline Lock Flush) 10ML IN EACH SAILAJA... ASDIRECTED PRN IV SEE LABEL COMMENTS; Start 08/09/18 at 10:15; Status Cancel Sodium Chloride (Saline Lock Flush) 10ML IN EACH SAILAJA... ASDIRECTED PRN IV SEE LABEL COMMENTS; Start 08/03/18 at 12:30; Status Cancel Sodium Chloride (Saline Lock Flush) 10ML IN EACH SAILAJA... ASDIRECTED PRN IV SEE LABEL COMMENTS; Start 08/05/18 at 04:00; Status Cancel Sodium Chloride 200 meq/Sodium Acetate 40 meq/ Potassium Chloride 20 meq/ Calcium Gluconate 2381 mg/Insulin Human Regular 12 units/Amino Acids/ Dextrose 2,103.93 ml @ 70 mls/hr ONCE@1800 IV Last administered on 08/12/18at 18:00; St art 08/12/18 at 18:00; Stop 08/13/18 at 17:59; Status DC Sodium Chloride 200 meq/Sodium Acetate 40 meq/ Potassium Chloride 40 meq/ Potassium Phosphate 20 mmol/ Magnesium Sulfate 4.7 meq/Calcium Gluconate 2381 mg/ Multivitamins 10 ml/Chromium/ Copper/Manganese/ Seleni/Zn 1 ml/ Insulin Human Regular 35.7 units/Amino Acids/ Dextrose 2,133.0087 ml @ 70 mls/hr ONCE@1800 IV Last administered on 08/17/18at 18:38; Start 08/17/18 at 18:00; Stop 08/18/18 at 17:59; Status DC Sodium Chloride 200 meq/Sodium Acetate 40 meq/ Potassium Chloride 40 meq/ Potassium Phosphate 20 mmol/ Magnesium Sulfate 4.7 meq/Calcium Gluconate 2381 mg/ Multivitamins 10 ml/Chromium/ Copper/Manganese/ Seleni/Zn 1 ml/ Insulin Caitie n Regular 35.7 units/Amino Acids/ Dextrose 2,133.0087 ml @ 70 mls/hr ONCE@1800 IV Last administered on 08/13/18at 17:50; Start 08/13/18 at 18:00; Stop 08/14/18 at 17:59; Status DC Sodium Chloride 200 meq/Sodium Acetate 40 meq/ Potassium Chloride 40 meq/ Potassium Phosphate 20 mmol/ Magnesium Sulfate 4.76 meq/Calcium Gluconate 2381 mg/ Insulin Human Regular 35.7 units/Amino Acids/ Dextrose 2,122.0237 ml @ 70 mls/hr ONCE@1800 IV Last administered on 08/25/18at 18:37; Start 08/25/18 at 18:00; Stop 08/26/18 at 17:59; Status DC Sodium Chloride 200 meq/Sodium Acetate 40 meq/ Potassium Chloride 40 meq/ Potassium Phosphate 20 mmol/ Magnesium Sulfate 4.76 meq/Calcium Gluconate 2381 mg/ Multivitamins 10 ml/Chromium/ Copper/Manganese/ Seleni/Zn 1 ml/ Insulin Human Regular 35.7 units/Amino Acids/ Dextrose 2,133.0237 ml @ 70 mls/hr ONCE@1800 IV Last administered on 08/27/18at 17:54; Start 08/27/18 at 18:00; Stop 08/28/18 at 17:59; Status DC Sodium Chloride 200 meq/Sodium Acetate 40 meq/ Potassium Chloride 40 meq/ Potassium Phosphate 20 mmol/ Magnesium Sulfate 4.76 meq/Calcium Gluconate 2381 mg/ Multivitamins 10 ml/Chromium/ Copper/Manganese/ Seleni/Zn 1 ml/ Insulin Human Regular 35.7 units/Amino Acids/ Dextrose 2,133.0237 ml @ 70 mls/hr ONCE@1800 IV Last administered on 08/29/18at 17:50; Start 08/29/18 at 18:00; Stop 08/30/18 at 17:59; Status DC Sodium Chloride 200 meq/Sodium Acetate 40 meq/ Potassium Chloride 40 meq/ Potassium Phosphate 20 mmol/ Magnesium Sulfate 4.8 meq/Calcium Gluconate 2380 mg/ Insulin Human Regular 35.7 units/Amino Acids/ Dextrose 2,122.0237 ml @ 70 mls/hr ONCE@1800 IV Last administered on 08/30/18at 18:01; Start 08/30/18 at 18:00; Stop 08/31/18 at 17:59; Status DC Sodium Chloride 200 meq/Sodium Acetate 40 meq/ Potassium Chloride 40 meq/ Potassium Phosphate 20 mmol/ Magnesium Sulfate 4.8 meq/Calcium Gluconate 2380 mg/ Insulin Human Regular 36 units/ Amino Acids/ Dextrose 2,122.0267 ml @ 70 mls/hr ONCE@1800 IV Last administered on 08/18/18at 17:24; Start 08/18/18 at 18:00; Stop 08/19/18 at 12:16; Status DC Sodium Chloride 200 meq/Sodium Acetate 40 meq/ Potassium Chloride 40 meq/ Potassium Phosphate 20 mmol/ Magnesium Sulfate 4.8 meq/Calcium Gluconate 2380 mg/ Insulin Human Regular 36 units/ Amino Acids/ Dextrose 2,122.0267 ml @ 70 mls/hr ONCE@1800 IV Last administered on 08/26/18at 18:05; Start 08/26/18 at 18:00; Stop 08/27/18 at 17:59; Status DC Sodium Chloride 200 meq/Sodium Acetate 40 meq/ Potassium Chloride 40 meq/ Potassium Phosphate 20 mmol/ Magnesium Sulfate 4.8 meq/Calcium Gluconate 2380 mg/ Insulin Human Regular 36 units/ Amino Acids/ Dextrose 2,122.0267 ml @ 70 mls/hr ONCE@1800 IV Last administered on 09/01/18at 18:51; Start 09/01/18 at 18:00; Stop 09/02/18 at 17:59; Status DC Sodium Chloride 200 meq/Sodium Acetate 40 meq/ Potassium Chloride 40 meq/ Potassium Phosphate 20 mmol/ Magnesium Sulfate 4.8 meq/Calcium Gluconate 2380 mg/ Insulin Human Regular 36 units/ Amino Acids/ Dextrose 2,122.0267 ml @ 70 mls/hr ONCE@1800 IV Last administered on 09/02/18at 18:21; Start 09/02/18 at 18:00; Stop 09/03/18 at 17:59 Sodium Chloride 200 meq/Sodium Acetate 40 meq/ Potassium Chloride 40 meq/ Potassium Phosphate 20 mmol/ Magnesium Sulfate 4.8 meq/Calcium Gluconate 2380 mg/ Multivitamins 10 ml/Chromium/ Copper/Manganese/ Seleni/Zn 1 ml/ Insulin Human Regular 36 units/ Amino Acids/ Dextrose 2,133.0267 ml @ 70 mls/hr ONCE@1800 IV Last administered on 08/24/18at 18:29; Start 08/24/18 at 18:00; Stop 08/25/18 at 17:59; Status DC Sodium Chloride 200 meq/Sodium Acetate 40 meq/ Potassium Chloride 40 meq/ Potassium Phosphate 20 mmol/ Magnesium Sulfate 4.8 meq/Calcium Gluconate 2380 mg/ Multivitamins 10 ml/Chromium/ Copper/Manganese/ Seleni/Zn 1 ml/ Insulin Human Regular 36 units/ Amino Acids/ Dextrose 2,133.0267 ml @ 70 mls/hr ONC E@1800 IV ; Start 09/02/18 at 18:00; Stop 09/03/18 at 17:59; Status Cancel Sodium Chloride 200 meq/Sodium Acetate 40 meq/ Potassium Chloride 40 meq/ Potassium Phosphate 20 mmol/ Magnesium Sulfate 4.8 meq/Calcium Gluconate 2381 mg/ Insulin Human Regular 36 units/ Amino Acids/ Dextrose 2,122.0367 ml @ 70 mls/hr ONCE@1800 IV Last administered on 08/28/18at 17:19; Start 08/28/18 at 18:00; Stop 08/29/18 at 17:59; Status DC Sodium Chloride 200 meq/Sodium Acetate 40 meq/ Potassium Chloride 40 meq/ Po tassium Phosphate 20 mmol/ Magnesium Sulfate 4.8 meq/Calcium Gluconate 2381 mg/ Multivitamins 10 ml/Chromium/ Copper/Manganese/ Seleni/Zn 1 ml/ Insulin Human Regular 36 units/ Amino Acids/ Dextrose 2,133.0367 ml @ 70 mls/hr ONCE@1800 IV Last administered on 08/31/18at 19:17; Start 08/31/18 at 18:00; Stop 09/01/18 at 17:59; Status DC Succinylcholine Chloride (Quelicin) 100 mg STAT STAT IV Last administered on 07/31/18at 05:13; Start 07/31/18 at 05:30; Stop 07/31/18 at 05:47; Status DC Tiotropium [place] (Spiriva Handihaler) 1 inhalation DAILY@08 INH Last administered on 09/02/18at 07:25; Start 08/27/18 at 08:00 Vancomycin HCl 1000 mg/IV Miscellaneous Supplies 1 each/ Dextrose 270 ml @ 270 mls/hr Q12H IV Last administered on 08/01/18at 20:49; Start 08/01/18 at 21:00; Stop 08/02/18 at 12:40; Status DC Vancomycin HCl 1000 mg/IV Miscellaneous Supplies 1 each/ Dextrose 270 ml @ 270 mls/hr Q24H IV ; Start 08/03/18 at 08:00; Stop 08/03/18 at 08:00; Status DC Vancomycin HCl 1000 mg/IV Miscellaneous Supplies 1 each/ Dextrose 270 ml @ 270 mls/hr Q8H IV Last administered on 08/01/18at 10:11; Start 07/31/18 at 11:00; Stop 08/01/18 at 18:15; Status DC Vasopressin 20 units/Sodium Chloride 500 ml @ 60 mls/hr Q8H20M IV Last administered on 08/08/18at 08:12; Start 08/02/18 at 15:00; Stop 08/12/18 at 14:59; Status DC Vecuronium [place] (Norcuron) 10 mg STAT STAT IV Last administered on 07/31/18at 05:27; Start 07/31/18 at 05:30; Stop 07/31/18 at 05:47; Status DC Allergies Coded Allergies: No Known Drug Allergy (Verified Allergy, Unknown, 11/28/16) Objective Physical Examination Examination GENERAL APPEARANCE:Patient seen, laying in bed, awake, alert, and oriented. Mildly uncomfortable in no acute distress. SKIN: Warm and dry. HEENT: Normocephalic, atraumatic. Mild pale palpebral conjunctiva, anicteric sclerae. Lips and mucosa appear dry. NECK: Supple, no thyromegaly. No obvious jugular venous distention. LUNGS: Clear to auscultation bilaterally. No wheezing appreciated. HEART: No chest wall abnormalities. Regular rate and rhythm with no murmurs appreciated. ABDOMEN: Abdomen distended, more prominent over the central abdomen below the umbilicus. He has tenderness to palpation over the right lower quadrant area with moderate guarding, infraumbilical area (seems less than last week). He is minimally tender over the left lower quadrant area Vital Signs Vital Signs Date Time Temp Pulse Resp B/P (MAP) Pulse Ox O2 Delivery O2 Flow Rate FiO2 09/03/18 12:29 16 09/03/18 10:48 85 140/73 09/03/18 06:00 98.0 95 Room Air 09/02/18 16:00 2.0 08/31/18 05:32 60 I&Os I&O- Last 24 Hours up to 6 AM 09/03/18 06:00 Intake Total 4180 ml Output Total 700 ml Balance 3480 ml Laboratory Data Labs 24H Laboratory Tests 2 09/02/18 17:09: Bedside Glucose (Misc Panel) 211H 09/02/18 23:57: Bedside Glucose (Misc Panel) 190H 09/03/18 05:54: Immature Granulocyte % (Auto) 1.4, White Blood Count 13.7H, Red Blood Count 3.09L, Hemoglobin 9.0L, Hematocrit 28.1L, Mean Corpuscular Volume 90.9, Mean Corpuscular Hemoglobin 29.1, Mean Corpuscular Hemoglobin Concent 32.0, Red Cell Distribution Width 15.1H, Platelet Count 323, Neutrophils (%) (Auto) 73.4H, Lymphocytes (%) (Auto) 9.3L, Monocytes (%) (Auto) 11.4H, Eosinophils (%) (Auto) 3.9H, Basophils (%) (Auto) 0.6, Neutrophils # (Auto) 10.1H, Lymphocytes # (Auto) 1.3L, Monocytes # (Auto) 1.6H, Eosinophils # (Auto) 0.5, Basophils # (Auto) 0.1, Nucleated Red Blood Cells % (auto) 0.0, Anion Gap 8, Glomerular Filtration Rate 31.9L, Blood Urea Nitrogen 46H, Creatinine 2.32H, Sodium Level 139, Potassium Level 3.5, Chloride Level 110H, Carbon Dioxide Level 21, Calcium Level 8.2L, Aspartate Amino Transf (AST/SGOT) 10, Alanine Aminotransferase (ALT/SGPT) 10L, Alkaline Phosphatase 97, Total Bilirubin 0.4, Total Protein 6.1L, Albumin 1.8L, Magnesium Level 1.6L, Albumin/Globulin Ratio 0.42L 09/03/18 05:59: Bedside Glucose (Misc Panel) 195H 09/03/18 12:13: Lactic Acid Level 1.2, C-Reactive Protein, Quantitative 8.34H 09/03/18 13:10: Bedside Glucose (Misc Panel) 204H CBC/BMP Laboratory Tests 09/03/18 05:54 Red Blood Count 3.09 L, Mean Corpuscular Volume 90.9, Mean Corpuscular Hemoglobin 29.1, Mean Corpuscular Hemoglobin Concent 32.0, Red Cell Distribution Width 15.1 H, Neutrophils (%) (Auto) 73.4 H, Lymphocytes (%) (Auto) 9.3 L, Monocytes (%) (Auto) 11.4 H, Eosinophils (%) (Auto) 3.9 H, Basophils (%) (Auto) 0.6, Neutrophils # (Auto) 10.1 H, Lymphocytes # (Auto) 1.3 L, Monocytes # (Auto) 1.6 H, Eosinophils # (Auto) 0.5, Basophils # (Auto) 0.1, Calcium Level 8.2 L, Aspartate Amino Transf (AST/SGOT) 10, Alanine Aminotransferase (ALT/SGPT) 10 L, Alkaline Phosphatase 97, Total Bilirubin 0.4, Total Protein 6.1 L, Albumin 1.[address] abdomen and pelvis Pelvis demonstrates normal bladder and age appropriate prostate/seminal vesicles. Fluid is again identified extending via the right inguinal canal into the right zahra scrotum and there is evidence for diffuse scrotal wall thickening. The subcutaneous tissues demonstrate moderate edematous infiltration essentially unchanged. Abdominal aorta without aneurysm. Musculoskeletal structures demonstrate stable degenerative changes. Impression: 1. Stable findings throughout the lower chest and abdomen/pelvis. 2. No evidence for bowel obstruction or pneumoperitoneum to suggest bowel perforation. Impression Acute pancreatitis - seems to be resolving Sigmoid colitis probably ischemic He is given as a conduit decreased picture. On one hand his white cell count is improving. He has been hemodynamically stable and overall we are seeing some improvement with his renal function. On the other hand, he continues to have significant lower quadrant abdominal pain in the right side seems to be more prominent now. He is having some small amount of loose stools with oral intake but is not having any bloody bowel movements. He is not having any systemic signs of underlying inflammatory response with regards to the colitis. He still requires a good amount of narcotic pain medications to get him comfortable. I reviewed Dr. Hidalgo's notes and discussed this with the patient and his at the bedside, likewise reviewed the current CT imaging comparing it to the one on 08/29/2018. Overall I think the issue with regards to the pancreatitis and the fluid collections continue to improve. He is now only symptomatic from the distended loop of sigmoid colon which may be a sign that he is having some ischemic colitis. His white cell count has responded well with the Cipro and Flagyl. Agree that probably should take a look at the degree of inflammation no schedule him for a flexible sigmoidoscopy on once a. He most likely will not tolerate any prep. For the meantime may be prudent to take a look at his heart function in case we need to go to the OR for sigmoid colectomy. I did discuss with him the possibility that if he Marshall to the OR that he will end up with a colostomy/diverting ileostomy. Plan / VTE VTE Prophylaxis Ordered?: Yes JUAN DAVID VANCE MD Sep 03, 2018 13:45
[2018-09-03 14:00] VITALS: BP 138/80
[2018-09-03] MEDS: CIPROFLOXACIN 200 MG in APPROPRIATE DILUENT 1 EA IV SCH (14:02)
--- NOTE | 2018-09-03 15:18 | REP ---
Clinical: Pancreatitis with distention. Technique: Portable supine view of the abdomen. Correlation: CT dated 08/23/2018 Findings: The bowel gas pattern is similar to CT and again suggests ileus with prominent gaseous distention of the sigmoid colon. No evidence for bowel obstruction or perforation appreciated. No organomegaly. No obvious foreign body. Impression: Gaseous distension of the small large bowel with prominent appearance to the sigmoid colon similar to findings on recent CT. No evidence for obstruction. Electronically Signed by Shakeel Ramírez MD 09/03/2018 03:11 P
--- NOTE | 2018-09-03 15:20 | REP ---
Clinical: Shortness of breath Comparison: 08/14/2018 Findings: Double lumen catheter extends into the SVC. Tunneled catheter via the left brachiocephalic extends into the SVC. Dual lead pacemaker unchanged. Cephalization along with increased bilateral opacities most suggestive of pulmonary venous congestion and pulmonary edema. Scattered atelectasis and left lower lobe consolidation/effusion are appreciated and increased. No pneumothorax. Impression: Diffuse bilateral opacities suggesting pulmonary venous congestion and edema and scattered atelectasis as well as possible left effusion. Electronically Signed by Shakeel Ramírez MD 09/03/2018 03:12 P
[2018-09-03] MEDS: SODIUM CHLORIDE 0.9% INJ 10 ML SYR IV PRN (15:27)
[2018-09-03 17:00] VITALS: BP 136/80
--- NOTE | 2018-09-03 20:03 | ECHO ---
DATE OF PROCEDURE: 09/03/2018 AGE: 48 GENDER: Male HEIGHT: 72 inches WEIGHT: 178 pounds BODY SURFACE AREA: 2.02 sq m INPATIENT: Progressive care unit (PCU) room 3218. REFERRING PHYSICIAN: Dr. Bianca Jackson INDICATION: CHF. MEASUREMENTS: 2D MEASUREMENTS: RV: 3.9 cm LV: 5.9 cm Septum: 1.2 cm Posterior wall: 1.2 cm Aortic root: 3.1 cm LA: 4.5 cm LVEF: 30% DOPPLER MEASUREMENTS: AV: 1.23 m/s LVOT: 0.87 m/s LVOT diameter: 2.0 cm MV-E: 116 A: 64 E/A ratio: 1.8 Early mitral deceleration time: 225 ms E prime: 4.7 A prime: 5 E/E prime ratio: 24 PCWP: 20.3 mmHg PV: 0.8 m/s Pulmonary artery acceleration time: 95 ms RVSP: 43 mmHg IVC: 2.4 cm COMMENTS: Normal sinus rhythm with dual-chamber pacemaker. Appropriate atrial sensing and tracking with consistent ventricular paced. Paced QRS complexes with left bundle branch block QRS configuration. M-mode and two-dimensional echocardiography was performed with pulsed, continuous wave, color flow and tissue Doppler studies. Moderately dilated left ventricle with borderline hypertrophy. Paradoxical septal wall motion and apical akinesis related to right ventricular paced rhythm. Moderate to moderately severe impairment of global resting systolic function. Mildly dilated left atrium with impairment of LV diastolic function and elevated mean left atrial pressure. Right heart chamber sizes upper limits of normal with right ventricular hypokinesis and Doppler evidence of moderate pulmonary hypertension. Mildly dilated IVC with slightly reduced respiratory collapse suggestive of central venous pressure of approximately 10 - 15 mmHg. Slight aortic valvular sclerosis with adequate cusp separation but premature cusp closure in keeping with reduced forward stroke volume. Normal aortic root size. Normal-appearing mitral valvular apparatus with "low flow" appearance to leaflet excursion and at least mild to moderate mitral insufficiency. Normal appearing tricuspid valve with very mild insufficiency. No intracardiac mass or pericardial effusion. Pacing leads could be visualized traversing right heart structures. MTDD
[2018-09-03] MEDS ORDERED: D5W/0.45% SODIUM CHLORIDE 1,000 ML IV SCH (20:15)
[2018-09-03 22:00] VITALS: BP 125/69
[2018-09-04] MEDS: CIPROFLOXACIN 200 MG in APPROPRIATE DILUENT 1 EA IV SCH ×3 (00:29→23:57)
[2018-09-04] MEDS: HumaLOG INSULIN (NovoLOG) PER UNIT SC SCH ×5 (00:30→23:57)
[2018-09-04] MEDS: HYDROMORPHONE HCL 0.5 MG/ 0.5 ML SYRINGE (J1170 PER 1) IV PRN ×6 (01:12→20:06)
[2018-09-04] MEDS: metroNIDAZOLE 500 MG in APPROPRIATE DILUENT 1 EA IV SCH ×3 (02:20→18:42)
[2018-09-04] MEDS: ONDANSETRON 4MG/2ML VIAL (J2405) IV PRN ×3 (04:18→18:44)
[2018-09-04 06:00] VITALS: BP 137/84
[2018-09-04] MEDS: SODIUM CHLORIDE 0.9% INJ 10 ML SYR IV SCH (06:26)
[2018-09-04] MEDS: PANTOPRAZOLE 40MG INJ (PROTONIX) (C9113) IV SCH (06:26)
[2018-09-04] MEDS: CLOPIDOGREL 75 MG TAB PO SCH (06:27)
[2018-09-04] MEDS: CARVedilol 6.25 MG TAB PO SCH ×2 (06:27→21:10)
[2018-09-04] MEDS: ISOSORBIDE DIN. (ISORDIL) 30 MG TAB PO SCH ×3 (06:27→17:02)
[2018-09-04] MEDS: AMIODARONE 200 MG TAB (PACERONE) PO SCH (06:27)
[2018-09-04] MEDS: SODIUM CHLORIDE 0.9% INJ 10 ML SYR IV PRN (06:36)
[2018-09-04 06:54] LABS: MAGNESIUM LEVEL 1.7 MG/DL (1.8-2.4)
[2018-09-04 08:04] LABS: ALBUMIN 1.8 GM/DL (3.2-5.2); CALCIUM LEVEL 8.4 MG/DL (8.5-10.1); CREATININE FOR GFR 2.29 MG/DL (0.70-1.30); GLOMERULAR FILTRATION RATE 32.4 (>56); PHOSPHORUS LEVEL 4.1 MG/DL (2.5-4.9)
[2018-09-04] MEDS: SYMBICORT 160/4.5MCG INHALER 6GM INH SCH ×2 (09:13→21:00)
[2018-09-04] MEDS: TIOTROPIUM INHALER/CAPSULE (SPIRIVA) INH SCH (09:14)
[2018-09-04] MEDS ORDERED: MAG SULF 1GM/100ML (MAG RUN) 1 GM in APPROPRIATE DILUENT 1 EA IV ONE (09:45)
--- NOTE | 2018-09-04 09:50 | IPN ---
DATE OF SERVICE: 09/04/2018 Dae is being rounded on for the hospitalist service. He has been here over a month. Current problem is concern over ischemic colitis. He does have right lower abdominal pain. He is currently on TPN. Yesterday he had an echocardiogram done. The ejection fraction is 30% (15% when done a month ago), dilated cardiomyopathy with global hypokinesis. PHYSICAL EXAMINATION: Afebrile, 137/84. General appearance: Chronically ill-appearing, looks much older than stated age. Lungs: Clear. Heart: Regular rhythm. Abdomen: Soft, distended, tender right lower quadrant. Trace peripheral edema. LABS: No CBC ordered for today. Sodium 139, potassium 4, BUN 47, creatinine 2.3. Glucose 152. IMPRESSION: 1. Concern over ischemic colitis. surgery. Dr. Nolasco's note indicates might be going for sigmoidoscopy. If the patient does have surgery planned, he should be seen by Dr. Garcia, his department store door greeter, before any surgery. He was seen by cardiology a month ago but not by his primary department store door greeter who is Dr. Garcia. 2. Acute severe pancreatitis on TPN. Pain seems under adequate control. 3. Acute on chronic renal failure per nephrology, no dialysis yesterday. 4. Non-ST segment elevation myocardial infarction, no recurrent ischemic symptoms as noted above. I feel he should be seen by his department store door greeter if any surgery is planned. 5. Diabetes. He has insulin in his TPN and on sliding scale. 6. Anemia of chronic disease. He has already been transfused 5 units. Continue monitoring this. CBC is ordered starting tomorrow.
[2018-09-04] MEDS ORDERED: HEPARIN 1,000 UNITS/ML 10ML VIAL (FOR RADIOLOGY& DIALYSIS ONLY) XX ONE (11:00)
[2018-09-04] MEDS ORDERED: HEPARIN 1,000 UNITS/ML 10ML VIAL (FOR RADIOLOGY& DIALYSIS ONLY) IV ONE (11:00)
[2018-09-04] MEDS ORDERED: [UNRECOGNIZED DRUG - OTHER] IV SCH ×8 (18:00)
[2018-09-04] MEDS ORDERED: SODIUM ACETATE IV SCH ×8 (18:00)
[2018-09-04] MEDS ORDERED: FAT EMULSION IV 20% 500 ML IV SCH (18:00)
[2018-09-04] MEDS ORDERED: SODIUM CHLORIDE IV SCH ×8 (18:00)
[2018-09-04 20:00] VITALS: BP 127/60
[2018-09-04] MEDS: diphenhydrAMINE 25 MG CAP PO PRN (21:09)
[2018-09-05] MEDS: HYDROMORPHONE HCL 0.5 MG/ 0.5 ML SYRINGE (J1170 PER 1) IV PRN ×6 (00:14→23:48)
[2018-09-05] MEDS: metroNIDAZOLE 500 MG in APPROPRIATE DILUENT 1 EA IV SCH ×3 (02:11→18:27)
[2018-09-05 06:00] VITALS: BP 137/77
[2018-09-05] MEDS: HumaLOG INSULIN (NovoLOG) PER UNIT SC SCH ×4 (06:00→23:49)
[2018-09-05] MEDS: ONDANSETRON 4MG/2ML VIAL (J2405) IV PRN ×3 (06:01→23:55)
[2018-09-05] MEDS: SODIUM CHLORIDE 0.9% INJ 10 ML SYR IV SCH (06:01)
[2018-09-05] MEDS: ISOSORBIDE DIN. (ISORDIL) 30 MG TAB PO SCH ×3 (06:05→17:00)
--- NOTE | 2018-09-05 06:23 | IPN ---
DATE: 09/04/2018 Mr. Shipman is seen this morning on his bedside. He continues to have abdominal pain and tenderness and reports that he is scheduled for a colonoscopy followed by possible colon resection and colostomy tomorrow. He has severe abdominal tenderness for last several days though his white cell count is improving with antibiotic therapy. He has been on Cipro and Flagyl. The patient reports shortness of breath and increasing peripheral edema as he has not been dialyzed for couple of days. His total parenteral nutrition (TPN) is currently on hold but is likely to be resumed again this evening. PHYSICAL EXAMINATION: The patient is without any acute distress. His temperature is 98 degrees Fahrenheit, heart rate 70 per minute and respiratory rate 16 per minute. Blood pressure 137/84 mmHg and oxygen saturation is 96% on room air. His head is atraumatic. Neck is supple and jugular venous distention (JVD) mildly elevated. There is no oral thrush or ulcers. Heart sounds are regular Lungs with diminished breath sounds at bases. Abdomen is markedly tender all over and bowel sounds are hypoactive. Extremities: Have no cyanosis or clubbing. Lower extremity edema is only 1+. Neurologically he is awake, alert and oriented times three. Today's labs show WBC count 13.7, hemoglobin 9.0, hematocrit 28.1, platelets 323. Sodium 139, potassium 4.0, CO2 18, BUN 47 and creatinine 2.29. Glucose 152 and calcium 8.4. Magnesium level is 1.7. PROBLEMS: 1. Acute renal failure superimposed on chronic kidney disease. No significant change in kidney function over last 24 hours. The patient has urine output just over 1 liter per 24 hours. He is also receiving TPN and volume status has been positive. He is scheduled for the operating room (OR) tomorrow and we would like to optimize his condition for surgery. We are going to dialyze him today and remove about 4 liters of fluid. 2. Metabolic acidosis: He has mild metabolic acidosis related to colitis and renal failure. This will be corrected with dialysis. 3. Hypomagnesemia: Magnesium level is mildly low and it will improve as he is already receiving intravenous magnesium sulfate 1 gram today. 4. Colitis: The patient probably has ischemic colitis and has been on Cipro and Flagyl. His leukocytosis is improving and he is scheduled for colonoscopy tomorrow in OR with possible colon resection if needed. 5. Anemia: At present his anemia is stable and does not need any urgent intervention.
[2018-09-05 06:51] LABS: HEMATOCRIT 27.5 % (42.0-52.0); HEMOGLOBIN 8.5 g/dl (13.5-17.5); MEAN CORPUSCULAR HEMOGLOBIN 28.6 pg (27.0-33.0); MEAN CORPUSCULAR HGB CONC 30.9 g/dl (32.0-36.5); MEAN CORPUSCULAR VOLUME 92.6 fl (80.0-96.0); PLATELET COUNT, AUTOMATED 310 10^3/uL (150-450); RED BLOOD COUNT 2.97 10^6/uL (4.30-6.10); WHITE BLOOD COUNT 11.6 10^3/uL (4.0-10.0)
[2018-09-05] MEDS ORDERED: FLEET ENEMA PR ONE (07:00)
[2018-09-05 07:18] LABS: ALBUMIN 1.8 GM/DL (3.2-5.2); CALCIUM LEVEL 8.1 MG/DL (8.5-10.1); CREATININE FOR GFR 1.73 MG/DL (0.70-1.30); GLOMERULAR FILTRATION RATE 44.7 (>56); PHOSPHORUS LEVEL 3.1 MG/DL (2.5-4.9); POTASSIUM SERUM 3.8 MEQ/L (3.5-5.1); PREALBUMIN 14.2 MG/DL (20.0-40.0)
[2018-09-05] MEDS: SYMBICORT 160/4.5MCG INHALER 6GM INH SCH ×2 (08:15→21:16)
[2018-09-05] MEDS: TIOTROPIUM INHALER/CAPSULE (SPIRIVA) INH SCH (08:15)
[2018-09-05 08:23] VITALS: BP 141/77
--- NOTE | 2018-09-05 08:58 | IPNPDOC ---
Subjective General Date/Time Seen The patient was seen on 09/05/18 at 08:13. Subject Chief Complaint/History The patient is a 48-year-old male admitted with a reason for visit of Ischemic Colitis. Patient still complains of significant right lower quadrant discomfort. He is having small amounts of mucoid, loose stools that are nonbloody. He felt improved today with the bms yesterday Current Medications Current Medications Current Medications Acetaminophen (Tylenol Suspension) 650 mg Q4HP PRN GT PAIN OR FEVER Last administered on 08/11/18at 07:09; Start 08/03/18 at 10:45; Stop 08/11/18 at 09:27; Status DC Acetaminophen (Tylenol Tab) 650 mg Q6HP PRN PO PAIN / FEVER Last administered on 08/21/18at 06:39; Start 08/20/18 at 17:30 Albuterol Sulfate (Proventil Neb) 2.5 mg Q2HP PRN NEB SOB/WHEEZING Last administered on 09/01/18at 03:00; Start 08/27/18 at 06:15 Albuterol Sulfate (Proventil Neb) 2.5 mg RQID NEB Last administered on 08/27/18at 20:46; Start 07/31/18 at 08:00; Stop 08/28/18 at 10:00; Status DC Amiodarone HCl (Pacerone, Cordarone) 400 mg DAILY PO Last administered on 09/04/18at 06:27; Start 08/14/18 at 09:00 Amiodarone HCl (Pacerone, Cordarone) 400 mg Q12H GT Last administered on 08/13/18at 10:15; Start 08/11/18 at 09:00; Stop 08/13/18 at 15:15; Status DC Amiodarone HCl (Pacerone, Cordarone) 400 mg Q8H GT Last administered on 08/10/18at 21:26; Start 08/02/18 at 22:00; Stop 08/10/18 at 21:52; Status DC Amiodarone HCl 360 mg/IV Miscellaneous Supplies 200 ml @ 16.66 mls/ hr Q12H1M IV ; Start 08/02/18 at 20:00; Stop 08/02/18 at 20:00; Status DC Amiodarone HCl 360 mg/IV Miscellaneous Supplies 200 ml @ 33.33 mls/ hr Q6H1M IV Last administered on 08/02/18at 13:30; Start 08/02/18 at 14:00; Stop 08/02/18 at 20:00; Status DC Aspirin (Aspirin Chewable) 81 mg BID NG Last administered on 08/13/18at 10:14; Start 07/31/18 at 09:00; Stop 08/13/18 at 15:15; Status DC Aspirin (Ecotrin) 81 mg BID PO ; Start 07/31/18 at 09:00; Stop 07/31/18 at 12:11; Status DC Aspirin (Ecotrin) 81 mg DAILY PO Last administered on 08/26/18at 08:51; Start 08/14/18 at 09:00; Stop 08/27/18 at 06:28; Status DC Bisoprolol Fumarate (Zebeta) 2.5 mg Q12H GT Last administered on 08/10/18at 09:18; Start 08/02/18 at 21:00; Stop 08/10/18 at 11:23; Status DC Budesonide/ Formoterol Fumarate (Symbicort 160/ 4.5mcg) 2 puff BID INH Last administered on 09/04/18at 09:13; Start 08/27/18 at 09:00 Calcium Gluconate 1000 mg/Dextrose 110 ml @ 110 mls/hr ASDIRECTED IV ; Start 08/03/18 at 16:00; Status UNV Calcium Gluconate 1000 mg/Dextrose 110 ml @ 110 mls/hr Q1H IV Last administered on 08/03/18at 17:18; Start 08/03/18 at 16:30; Stop 08/03/18 at 18:29; Status DC Calcium Gluconate 1000 mg/Dextrose 110 ml @ 110 mls/hr Q1H IV Last administered on 08/04/18at 10:15; Start 08/04/18 at 09:00; Stop 08/04/18 at 10:59; Status DC Calcium Gluconate 1000 mg/Dextrose 110 ml @ 110 mls/hr Q1H IV Last administered on 08/04/18at 16:00; Start 08/04/18 at 15:00; Stop 08/04/18 at 16:59; Status DC Calcium Gluconate 1000 mg/Dextrose 110 ml @ 110 mls/hr Q1H IV Last administered on 08/05/18at 16:12; Start 08/05/18 at 15:00; Stop 08/05/18 at 16:59; Status DC Calcium Gluconate 1000 mg/Sodium Chloride 110 ml @ 110 mls/hr ASDIRECTED IV ; Start 08/04/18 at 21:30; Stop 08/04/18 at 22:23; Status DC Calcium Gluconate 1000 mg/Sodium Chloride 110 ml @ 110 mls/hr Q1H IV Last administered on 08/05/18at 00:39; Start 08/04/18 at 22:30; Stop 08/05/18 at 01:29; Status DC Calcium Gluconate 1000 mg/Sodium Chloride 110 ml @ 110 mls/hr Q1H IV Last administered on 08/05/18at 04:43; Start 08/05/18 at 03:00; Stop 08/05/18 at 04:59; Status DC Calcium Gluconate 1000 mg/Sodium Chloride 110 ml @ 110 mls/hr Q1H IV Last administered on 08/05/18at 10:15; Start 08/05/18 at 09:00; Stop 08/05/18 at 10:59; Status DC Carvedilol (COReg) 6.25 mg BID PO Last administered on 09/04/18at 21:10; Start 08/16/18 at 21:00 Carvedilol (COReg) 6.25 mg BID PO Last administered on 08/16/18at 08:02; Start 08/13/18 at 21:00; Stop 08/16/18 at 21:07; Status DC Carvedilol (COReg) 6.25 mg Q6H NG Last administered on 07/31/18at 18:13; Start 07/31/18 at 12:00; Stop 08/02/18 at 16:05; Status DC Chlorhexidine Gluconate (Peridex Oral Rinse) SWAB/BRUSH ORAL CAVITY BID MT Last administered on 08/12/18at 08:49; Start 07/31/18 at 09:00; Stop 08/12/18 at 19:14; Status DC Ciprofloxacin 200 mg/IV Miscellaneous Supplies 100 ml @ 100 mls/hr Q12H IV Last administered on 09/04/18at 23:57; Start 08/29/18 at 12:00 Clopidogrel Bisulfate (PLAVix) 75 mg DAILY PO Last administered on 09/04/18at 06:27; Start 07/31/18 at 09:00 Darbepoetin Jay (Aranesp (Dialysis Use)) 200 mcg HD IV ; Start 08/18/18 at 11:15 Dextrose (Dextrose 50%) 25 ml ASDIRECTED PRN IV SEE LABEL COMMENTS Last administered on 08/11/18at 01:22; Start 08/02/18 at 02:00 Dextrose/Sodium Chloride 1,000 ml @ 40 mls/hr Q24H IV Last administered on 09/03/18at 20:26; Start 09/03/18 at 20:15; Stop 09/04/18 at 05:00; Status DC Diatrizoate Meglum/ Diatrizoate Sod (Gastrografin) 10 ml Q30M PO Last administered on 08/23/18at 08:21; Start 08/23/18 at 07:30; Stop 08/23/18 at 08:01; Status DC Diatrizoate Meglum/ Diatrizoate Sod (Gastrografin) 10 ml Q30M PO Last administered on 08/10/18at 13:51; Start 08/10/18 at 12:00; Stop 08/10/18 at 13:05; Status DC Digoxin (Lanoxin) 0.25 mg Q6H IV Last administered on 08/02/18at 09:50; Start 08/01/18 at 21:00; Stop 08/02/18 at 15:01; Status DC Diphenhydramine HCl (Benadryl) 25 mg Q6HP PRN PO ITCHING Last administered on 09/04/18at 21:09; Start 08/18/18 at 18:00 Etomidate (Amidate) 20 mg STAT STAT IV Last administered on 07/31/18at 05:13; Start 07/31/18 at 05:30; Stop 07/31/18 at 05:47; Status DC Fat Emulsion Intravenous 500 ml @ 20 mls/hr ONCE@1800 IV Last administered on 08/17/18at 18:39; Start 08/17/18 at 18:00; Stop 08/18/18 at 17:59; Status DC Fat Emulsion Intravenous 500 ml @ 20 mls/hr ONCE@1800 IV Last administered on 08/18/18at 17:23; Start 08/18/18 at 18:00; Stop 08/19/18 at 12:16; Status DC Fat Emulsion Intravenous 500 ml @ 20 mls/hr ONCE@1800 IV Last administered on 08/24/18at 18:29; Start 08/24/18 at 18:00; Stop 08/25/18 at 17:59; Status DC Fat Emulsion Intravenous 500 ml @ 20 mls/hr ONCE@1800 IV Last administered on 08/25/18at 18:37; Start 08/25/18 at 18:00; Stop 08/26/18 at 17:59; Status DC Fat Emulsion Intravenous 500 ml @ 20 mls/hr ONCE@1800 IV Last administered on 08/26/18at 18:05; Start 08/26/18 at 18:00; Stop 08/27/18 at 17:59; Status DC Fat Emulsion Intravenous 500 ml @ 20 mls/hr ONCE@1800 IV Last administered on 08/27/18at 17:54; Start 08/27/18 at 18:00; Stop 08/28/18 at 17:59; Status DC Fat Emulsion Intravenous 500 ml @ 20 mls/hr ONCE@1800 IV Last administered on 08/28/18at 17:18; Start 08/28/18 at 18:00; Stop 08/29/18 at 17:59; Status DC Fat Emulsion Intravenous 500 ml @ 20 mls/hr ONCE@1800 IV Last administered on 08/29/18at 17:46; Start 08/29/18 at 18:00; Stop 08/30/18 at 17:59; Status DC Fat Emulsion Intravenous 500 ml @ 20 mls/hr ONCE@1800 IV Last administered on 08/30/18at 18:01; Start 08/30/18 at 18:00; Stop 08/31/18 at 17:59; Status DC Fat Emulsion Intravenous 500 ml @ 20 mls/hr ONCE@1800 IV Last administered on 08/31/18at 19:16; Start 08/31/18 at 18:00; Stop 09/01/18 at 17:59; Status DC Fat Emulsion Intravenous 500 ml @ 20 mls/hr ONCE@1800 IV Last administered on 09/01/18at 18:51; Start 09/01/18 at 18:00; Stop 09/02/18 at 17:59; Status DC Fat Emulsion Intravenous 500 ml @ 20 mls/hr ONCE@1800 IV Last administered on 09/02/18at 18:21; Start 09/02/18 at 18:00; Stop 09/03/18 at 17:59; Status DC Fat Emulsion Intravenous 500 ml @ 20 mls/hr ONCE@1800 IV Last administered on 09/04/18at 18:45; Start 09/04/18 at 18:00; Stop 09/05/18 at 17:59 Fat Emulsion Intravenous 500 ml @ 20 mls/hr ONCE@1800 IV Last administered on 08/12/18at 18:01; Start 08/12/18 at 18:00; Stop 08/13/18 at 17:59; Status DC Fat Emulsion Intravenous 500 ml @ 20 mls/hr ONCE@1800 IV Last administered on 08/13/18at 17:50; Start 08/13/18 at 18:00; Stop 08/14/18 at 17:59; Status DC Fentanyl Citrate (Sublimaze) 25 mcg Q1HP PRN IV Pain Last administered on 08/09/18at 16:51; Start 08/02/18 at 12:15; Stop 08/12/18 at 09:12; Status DC Fluconazole 100 mg/IV Miscellaneous Supplies 50 ml @ 50 mls/hr Q24H IV Last a dministered on 08/13/18at 15:22; Start 08/08/18 at 16:00; Stop 08/13/18 at 22:06; Status DC Furosemide (LASIX injection) 100 mg STAT STAT IV Last administered on 07/31/18at 05:05; Start 07/31/18 at 05:38; Stop 07/31/18 at 05:41; Status DC Glucagon (Glucagon) 1 mg ASDIRECTED PRN SC SEE LABEL COMMENTS; Start 08/02/18 at 02:00 Glucose (Glucose) 16 GM ASDIRECTED PRN PO SEE LABEL COMMENTS; Start 08/02/18 at 02:00 Heparin Sodium (Heparin Lock Flush 10units/ml) 10 units ASDIRECTED PRN IV SEE LABEL COMMENTS Last administered on 08/18/18at 19:49; Start 08/03/18 at 10:30; Stop 08/20/18 at 14:11; Status DC Heparin Sodium (Heparin Lock Flush 10units/ml) 10 units HLF IV Last administered on 08/20/18at 05:24; Start 08/03/18 at 14:00; Stop 08/20/18 at 14:11; Status DC Heparin Sodium (Heparin Lock Flush 10units/ml) 30 units ASDIRECTED PRN IV SEE LABEL COMMENTS Last administered on 09/04/18at 06:36; Start 08/30/18 at 02:15 Heparin Sodium (Heparin Lock Flush 10units/ml) 30 units DAILY IV Last administered on 09/05/18at 06:01; Start 08/30/18 at 09:00 Heparin Sodium (Heparin) ASDIRECTED PRN IV SEE LABEL COMMENTS; Start 08/03/18 at 12:30; Stop 08/07/18 at 10:09; Status DC Heparin Sodium (Heparin) ASDIRECTED PRN IV SEE LABEL COMMENTS Last administered on 08/14/18at 02:20; Start 08/05/18 at 04:00 Heparin Sodium (Porcine) (Heparin) ASDIRECTED PRN IV SEE LABEL COMMENTS; Start 07/31/18 at 12:30; Stop 07/31/18 at 12:37; Status DC Heparin Sodium (Porcine) (Heparin) ASDIRECTED PRN IV SEE LABEL COMMENTS Last administered on 07/31/18at 21:31; Start 07/31/18 at 12:45; Stop 08/03/18 at 21:46; Status DC Heparin Sodium (Porcine) (Heparin) 5,000 units Q12H SQ Last administered on 08/13/18at 15:22; Start 08/13/18 at 09:00; Stop 08/13/18 at 17:55; Status DC Heparin Sodium (Porcine) (Heparin) 5,000 units Q8H SC ; Start 07/31/18 at 06:00; Stop 07/31/18 at 12:11; Status DC Heparin Sodium (Porcine) 00972 units/IV Miscellaneous Supplies 250 ml @ 0 mls/hr Q0M IV ; Start 07/31/18 at 12:18; Status UNV Heparin Sodium (Porcine) 30560 units/IV Miscellaneous Supplies 250 ml @ 0 mls/hr Q0M IV ; Start 07/31/18 at 12:38; Stop 07/31/18 at 12:43; Status DC Heparin Sodium (Porcine) 49765 units/IV Miscellaneous Supplies 250 ml @ 0 mls/hr Q0M IV Last administered on 08/02/18at 09:40; Start 07/31/18 at 12:41; Stop 08/03/18 at 21:34; Status DC Home Med (Med Rec Complete!) ASDIRECTED XX ; Start 07/31/18 at 07:30; Stop 07/31/18 at 07:30; Status DC Hydralazine HCl (Apresoline) 10 mg QID PO Last administered on 08/21/18at 09:04; Start 08/16/18 at 21:00; Stop 08/21/18 at 10:17; Status DC Hydralazine HCl (Apresoline) 10 mg QID PO Last administered on 08/16/18at 17:47; Start 08/13/18 at 17:00; Stop 08/16/18 at 21:07; Status DC Hydralazine HCl (Apresoline) 10 mg TID PO Last administered on 08/21/18at 17:20; Start 08/21/18 at 16:00; Stop 08/21/18 at 18:01; Status DC Hydralazine HCl (Apresoline) 20 mg STAT STAT IV Last administered on 07/31/18at 05:09; Start 07/31/18 at 05:15; Stop 07/31/18 at 05:41; Status DC Hydromorphone HCl (Dilaudid) 0.2 mg Q3HP PRN IV MILD PAIN (PS 1-4); Start 08/21/18 at 12:45; Stop 08/22/18 at 10:37; Status DC Hydromorphone HCl (Dilaudid) 0.2 mg Q3HP PRN IV MILD PAIN (PS 1-4); Start 08/22/18 at 10:45; Stop 08/23/18 at 08:57; Status DC Hydromorphone HCl (Dilaudid) 0.3 mg Q3HP PRN IV MILD PAIN (PS 1-4) Last administered on 09/02/18at 20:20; Start 08/23/18 at 09:00 Hydromorphone HCl (Dilaudid) 0.4 mg Q3HP PRN IV MODERATE PAIN (PS 5-7) Last administered on 08/22/18at 09:20; Start 08/21/18 at 12:45; Stop 08/22/18 at 10:37; Status DC Hydromorphone HCl (Dilaudid) 0.4 mg Q3HP PRN IV MODERATE PAIN (PS 5-7) Last administered on 08/23/18at 08:30; Start 08/22/18 at 10:45; Stop 08/23/18 at 08:57; Status DC Hydromorphone HCl (Dilaudid) 0.6 mg Q3HP PRN IV MODERATE PAIN (PS 5-7) Last administered on 08/31/18at 05:32; Start 08/23/18 at 09:00; Stop 08/31/18 at 07:12; Status DC Hydromorphone HCl (Dilaudid) 0.9 mg Q3HP PRN IV SEVERE PAIN (PS 8-10) Last administered on 09/05/18at 06:02; Start 08/31/18 at 07:15 Insulin Detemir (Levemir Insulin) 10 units QHS SC Last administered on 08/16/18at 21:39; Start 08/14/18 at 21:00; Stop 08/17/18 at 08:27; Status DC Insulin Detemir (Levemir Insulin) 25 units QAM SC Last administered on 08/25/18a t 09:04; Start 08/20/18 at 09:00; Stop 08/25/18 at 09:24; Status DC Insulin Detemir (Levemir Insulin) 25 units QAM SC Last administered on 08/18/18at 10:57; Start 08/15/18 at 09:00; Stop 08/19/18 at 07:53; Status DC Insulin Detemir (Levemir Insulin) 25 units QHS SC Last administered on 08/13/18at 18:21; Start 08/13/18 at 18:15; Stop 08/14/18 at 08:08; Status DC Insulin Detemir (Levemir Insulin) 35 units QAM SC Last administered on 08/19/18at 08:51; Start 08/19/18 at 09:00; Stop 08/20/18 at 07:35; Status DC Insulin Human Lispro (HumaLOG INSULIN) SEE PROTOCOL TABLE AC SC Last administered on 08/24/18at 12:51; Start 08/15/18 at 07:30; Stop 08/24/18 at 20:12; Status DC Insulin Human Lispro (HumaLOG INSULIN) SEE PROTOCOL TABLE AC SC ; Start 08/15/18 at 07:30; Stop 08/15/18 at 07:30; Status DC Insulin Human Lispro (HumaLOG INSULIN) SEE PROTOCOL TABLE Q6H SC Last administered on 09/05/18at 06:00; Start 08/25/18 at 00:00 Insulin Human Lispro (HumaLOG INSULIN) SEE PROTOCOL TABLE Q6H SC Last adm inistered on 08/10/18at 11:37; Start 08/08/18 at 12:00; Stop 08/10/18 at 16:59; Status DC Insulin Human Lispro (HumaLOG INSULIN) SEE PROTOCOL TABLE Q6H SC Last administered on 08/08/18at 05:58; Start 08/02/18 at 12:00; Stop 08/08/18 at 07:35; Status DC Insulin Human Lispro (HumaLOG INSULIN) SEE PROTOCOL TABLE QHS SC Last administered on 08/14/18at 20:59; Start 08/14/18 at 21:00; Stop 08/24/18 at 20:12; Status DC Insulin Human Lispro (HumaLOG INSULIN) See Protocol Table Q6H SC Last administered on 08/18/18at 06:12; Start 08/17/18 at 18:00; Stop 08/18/18 at 12:01; Status DC Insulin Human Lispro (HumaLOG INSULIN) See Protocol Table Q6H SC Last administered on 08/19/18at 12:48; Start 08/18/18 at 18:00; Stop 08/19/18 at 12:01; Status DC Insulin Human Lispro (HumaLOG INSULIN) See Protocol Table Q6H SC ; Start 08/25/18 at 18:00; Stop 08/25/18 at 23:46; Status DC Insulin Human Lispro (HumaLOG INSULIN) See Protocol Table Q6H SC ; Start 09/02/18 at 18:00; Stop 09/03/18 at 12:01; Status Cancel Insulin Human Lispro (HumaLOG INSULIN) See Protocol Table Q6H SC Last administered on 08/13/18at 12:09; Start 08/12/18 at 18:00; Stop 08/13/18 at 12:01; Status DC Insulin Human Lispro (HumaLOG INSULIN) See Protocol Table Q6H SC Last administered on 08/14/18at 13:03; Start 08/13/18 at 18:00; Stop 08/14/18 at 12:01; Status DC Insulin Human Regular 100 units/ Sodium Chloride 100 ml @ 4.5 mls/hr [id number] IV Last administered on 08/12/18at 11:49; Start 08/10/18 at 12:00; Stop 08/12/18 at 14:57; Status DC Insulin Human Regular 100 units/ Sodium Chloride 100 ml @ 3 mls/hr Q24H IV ; Start 07/31/18 at 07:00; Stop 07/31/18 at 11:42; Status DC Insulin Human Regular 100 units/ Sodium Chloride 100 ml @ 5 mls/hr Q20H IV Last administered on 07/31/18at 06:44; Start 07/31/18 at 06:45; Stop 07/31/18 at 09:36; Status DC Insulin Human Regular 100 units/ Sodium Chloride 100 ml @ 8 mls/hr [id number] IV Last administered on 08/02/18at 04:13; Start 07/31/18 at 07:00; Stop 08/02/18 at 10:05; Status DC Isosorbide Dinitrate (Isordil) 10 mg TID@07,12,17 PO Last administered on 08/21/18at 06:39; Start 08/13/18 at 17:00; Stop 08/21/18 at 10:17; Status DC Isosorbide Dinitrate (Isordil) 20 mg TID@07,12,17 PO Last administered on 08/25/18at 06:14; Start 08/21/18 at 12:00; Stop 08/25/18 at 07:41; Status DC Isosorbide Dinitrate (Isordil) 30 mg TID@07,12,17 PO Last administered on 09/05/18at 06:05; Start 08/25/18 at 12:00 Lactobacillus Acidophilus (Bacid) 1 ea WM PO Last administered on 08/29/18at 08:38; Start 08/21/18 at 12:30; Stop 08/29/18 at 14:27; Status DC Levetiracetam 500 mg/Dextrose 105 ml @ 420 mls/hr Q12H IV Last administered on 08/12/18at 08:49; Start 08/05/18 at 09:00; Stop 08/12/18 at 09:12; Status DC Loperamide HCl (Imodium) 2 mg ASDIRECTED PRN PO DIARRHEA Last administered on 08/23/18at 12:00; Start 08/22/18 at 15:45; Stop 08/29/18 at 09:29; Status DC Methylprednisolone (SOLU medrol) 40 mg Q8H IV ; Start 08/27/18 at 06:00; Stop 08/27/18 at 06:45; Status DC Methylprednisolone (SOLUmedrol) 40 mg Q12H IV Last administered on 08/27/18at 08:36; Start 08/27/18 at 06:00; Stop 08/27/18 at 09:30; Status DC Metoclopramide HCl (REGLAN INJection) 5 mg Q8H IV Last administered on 08/11/18at 02:13; Start 08/06/18 at 02:00; Stop 08/11/18 at 09:27; Status DC Metoclopramide HCl (REGLAN INJection) 10 mg Q6H IV Last administered on 08/05/18at 17:52; Start 08/05/18 at 18:00; Stop 08/05/18 at 20:41; Status DC Metronidazole 500 mg/IV Miscellaneous Supplies 100 ml @ 100 mls/hr Q8H IV Last administered on 09/05/18at 02:11; Start 08/29/18 at 11:00 Midazolam HCl (Versed) 2 mg Q15MP PRN IV AGITATION Last administered on 08/10/18at 18:33; Start 08/05/18 at 04:45; Stop 08/12/18 at 09:12; Status DC Midazolam HCl (Versed) 2 mg Q1HP PRN IV AGITATION Last administered on 08/05/18at 04:07; Start 08/02/18 at 21:00; Stop 08/05/18 at 04:43; Status DC Miscellaneous (Unresolved Clarification Entry) SEE LABEL COMMENTS DAILY XX ; Start 08/08/18 at 09:00; Stop 08/08/18 at 15:02; Status DC Miscellaneous (Unresolved Clarification Entry) SEE LABEL COMMENTS DAILY XX ; Start 08/29/18 at 09:00; Stop 08/29/18 at 14:28; Status DC Miscellaneous (Unresolved Clarification Entry) SEE LABEL COMMENTS DAILY XX ; Start 08/14/18 at 09:00; Stop 08/14/18 at 18:25; Status DC Morphine Sulfate (Morphine Sulfate Inj) 2 mg Q4HP PRN IV PAIN Last administered on 08/17/18at 08:53; Start 08/17/18 at 08:45; Stop 08/17/18 at 11:21; Status DC Morphine Sulfate (Morphine Sulfate Inj) 4 mg Q3HP PRN IV PAIN Last administered on 08/20/18at 06:17; Start 08/17/18 at 11:30; Stop 08/20/18 at 10:05; Status DC Nitroglycerin (Nitrostat (1/ 150)) 0.4 mg Q5MP PRN SL CHEST PAIN Last administered on 08/31/18at 22:41; Start 08/27/18 at 05:45 Nitroglycerin 25 mg/IV Miscellaneous Supplies 250 ml @ 3 mls/hr Q24H IV Last administered on 07/31/18at 05:01; Start 07/31/18 at 05:00; Stop 07/31/18 at 09:41; Status DC Non-Formulary Medication ( See Comment Field Below ) [facility]. DOSING ASDIRECTED XX ; Start 08/11/18 at 06:45; Stop 08/14/18 at 03:08; Status DC Non-Formulary Medication (Heparin Iv Rate Change Documentation ml/ Hr) ASDIRECTED XX ; Start 07/31/18 at 12:30; Stop 07/31/18 at 12:37; Status DC Non-Formulary Medication (Heparin Iv Rate Change Documentation ml/ Hr) ASDIRECTED XX Last administered on 08/02/18at 08:04; Start 07/31/18 at 12:45; Stop 08/03/18 at 21:34; Status DC Non-Formulary Medication (Insulin Iv Rate Change Documentation ml/ Hr) ASDIRECTED XX Last administered on 08/12/18at 02:52; Start 08/10/18 at 11:30; Stop 08/12/18 at 19:45; Status DC Non-Formulary Medication (Insulin Iv Rate Change Documentation ml/ Hr) ASDIRECTED XX ; Start 07/31/18 at 06:45; Stop 07/31/18 at 09:36; Status DC Non-Formulary Medication (Insulin Iv Rate Change Documentation ml/ Hr) ASDIRECTED XX ; Start 07/31/18 at 07:00; Stop 07/31/18 at 11:42; Status DC Non-Formulary Medication (Insulin Iv Rate Change Documentation ml/ Hr) ASDIRECTED XX Last administered on 08/02/18at 08:27; Start 07/31/18 at 11:45; Stop 08/02/18 at 10:05; Status DC Norepinephrine Bitartrate 16 mg/ Dextrose 500 ml @ 18.8 mls/hr Q24H IV Last administered on 08/10/18at 11:58; Start 08/05/18 at 00:00; Stop 08/12/18 at 14:59; Status DC Norepinephrine Bitartrate 8 mg/ Dextrose 500 ml @ 37.5 mls/hr [id number] IV Last administered on 07/31/18at 08:00; Start 07/31/18 at 07:51; Stop 07/31/18 at 19:59; Status DC Norepinephrine Bitartrate 8 mg/ Dextrose 500 ml @ 67.5 mls/hr Q7H25M IV Last administered on 08/04/18at 19:42; Start 07/31/18 at 20:00; Stop 08/04/18 at 21:04; Status DC Ondansetron HCl (ZOFRAN INJection) 4 mg Q6HP PRN IV NAUSEA OR VOMITING Last administered on 09/05/18at 06:01; Start 08/16/18 at 13:30 Oxycodone/ Acetaminophen (Percocet 5mg/ 325mg Tablet) 1 tab Q4HP PRN PO MILD/MODERATE PAIN (PS 1-7) Last administered on 08/20/18at 10:01; Start 08/18/18 at 09:45; Stop 08/20/18 at 10:05; Status DC Oxycodone/ Acetaminophen (Percocet 5mg/ 325mg Tablet) 2 tab Q6HP PRN PO SEVERE PAIN (PS 8-10) Last administered on 08/19/18at 21:01; Start 08/18/18 at 09:45; Stop 08/20/18 at 10:05; Status DC Pancrelipase (Creon-24) 1 ea WM PO Last administered on 08/21/18at 17:23; Start 08/21/18 at 18:00; Stop 08/22/18 at 07:31; Status DC Pancrelipase (Creon-24) 2 ea WM PO Last administered on 08/29/18at 08:39; Start 08/22/18 at 08:00; Stop 08/29/18 at 14:27; Status DC Pantoprazole Sodium (Protonix) 40 mg BID IV Last administered on 08/19/18at 21:00; Start 08/15/18 at 09:00; Stop 08/20/18 at 08:59; Status DC Pantoprazole Sodium (Protonix) 40 mg DAILY IV Last administered on 09/04/18at 06:26; Start 09/01/18 at 09:00 Pantoprazole Sodium (Protonix) 40 mg DAILY IV Last administered on 08/14/18at 09 :18; Start 07/31/18 at 09:00; Stop 08/15/18 at 08:52; Status DC Piperacillin Sod/ Tazobactam Sod 3.375 gm/Dextrose 50 ml @ 50 mls/hr Q6H IV Last administered on 08/14/18at 18:09; Start 08/02/18 at 13:00; Stop 08/14/18 at 18:25; Status DC Piperacillin Sod/ Tazobactam Sod 4.5 gm/Dextrose 50 ml @ 50 mls/hr Q6H IV Last administered on 08/02/18at 05:26; Start 07/31/18 at 12:00; Stop 08/02/18 at 13:59; Status DC Propofol 1000 mg/ IV Miscellaneous Supplies 100 ml @ 5.25 mls/hr Q19H3M IV Last administered on 07/31/18at 16:56; Start 07/31/18 at 07:51; Stop 07/31/18 at 17:25; Status DC Propofol 1000 mg/ IV Miscellaneous Supplies 100 ml @ 5.25 mls/hr Q19H3M IV Last administered on 08/02/18at 16:59; Start 07/31/18 at 17:24; Stop 08/06/18 at 09:32; Status DC Propofol 1000 mg/ IV Miscellaneous Supplies 100 ml @ 17.33 mls/ hr [id number] IV Last administered on 07/31/18at 05:17; Start 07/31/18 at 05:45; Stop 07/31/18 at 08:07; Status DC Rosuvastatin Calcium (Crestor) 20 mg DAILY PO Last administered on 08/03/18at 09:16; Start 07/31/18 at 09:00; Stop 08/03/18 at 21:47; Status DC Sacubitril/ Valsartan (Entresto 24-26 Mg) 2 tab BID PO Last administered on 07/31/18at 20:08; Start 07/31/18 at 21:00; Stop 08/01/18 at 16:02; Status DC Sodium Bicarbonate 150 meq/Dextrose/Water 1,150 ml @ 100 mls/hr [id number] IV Last administered on 08/03/18at 10:51; Start 08/02/18 at 21:00; Stop 08/03/18 at 18:53; Status DC Sodium Bicarbonate (Sodium Bicarbonate) 50 meq STAT STAT IV Last administered on 07/31/18at 08:00; Start 07/31/18 at 09:02; Stop 07/31/18 at 09:04; Status DC Sodium Bicarbonate (Sodium Bicarbonate) 325 mg QID PO Last administered on 09/01/18at 17:26; Start 09/01/18 at 09:00; Stop 09/01/18 at 18:20; Status DC Sodium Chloride 1,000 ml @ 3 mls/hr Q24H IV Last administered on 08/15/18at 21:11; Start 08/12/18 at 23:00; Stop 08/16/18 at 17:07; Status DC Sodium Chloride 1,000 ml @ 3 mls/hr Q24H IV Last administered on 08/14/18at 00:20; Start 08/12/18 at 23:00; Stop 08/15/18 at 22:31; Status DC Sodium Chloride (Saline Lock Flush) 2 ml ASDIRECTED PRN IV SEE LABEL COMMENTS; Start 08/20/18 at 14:15; Status Cancel Sodium Chloride (Saline Lock Flush) 2 ml ASDIRECTED PRN IV SEE LABEL COMMENTS; Start 08/03/18 at 10:30; Stop 08/05/18 at 21:38; Status DC Sodium Chloride (Saline Lock Flush) 2 ml SLF IV Last administered on 09/02/18at 14:00; Start 08/20/18 at 22:00; Stop 09/03/18 at 03:57; Status DC Sodium Chloride (Saline Lock Flush) 2 ml SLF IV Last administered on 08/04/18at 06:27; Start 08/03/18 at 14:00; Stop 08/05/18 at 21:38; Status DC Sodium Chloride (Saline Lock Flush) 10 ml ASDIRECTED PRN IV SEE LABEL COMMENTS Last administered on 09/04/18at 06:36; Start 08/30/18 at 02:15 Sodium Chloride (Saline Lock Flush) 10 ml ASDIRECTED PRN IV SEE LABEL COMMENTS Last administered on 08/18/18at 19:49; Start 08/03/18 at 10:30; Stop 08/20/18 at 14:11; Status DC Sodium Chloride (Saline Lock Flush) 10 ml DAILY IV Last administered on 09/05/18at 06:01; Start 08/30/18 at 09:00 Sodium Chloride (Saline Lock Flush) 10 ml SLF IV Last administered on 08/20/18at 05:24; Start 08/03/18 at 14:00; Stop 08/20/18 at 14:11; Status DC Sodium Chloride (Saline Lock Flush) 10ML IN EACH SAILAJA... ASDIRECTED PRN IV SEE LABEL COMMENTS; Start 08/09/18 at 10:15; Status Cancel Sodium Chloride (Saline Lock Flush) 10ML IN EACH SAILAJA... ASDIRECTED PRN IV SEE LABEL COMMENTS; Start 08/03/18 at 12:30; Status Cancel Sodium Chloride (Saline Lock Flush) 10ML IN EACH SAILAJA... ASDIRECTED PRN IV SEE LABEL COMMENTS; Start 08/05/18 at 04:00; Status Cancel Sodium Chloride 200 meq/Sodium Acetate 40 meq/ Potassium Chloride 20 meq/ Calcium Gluconate 2381 mg/Insulin Human Regular 12 units/Amino Acids/ Dextrose 2,103.93 ml @ 70 mls/hr ONCE@1800 IV Last administered on 08/12/18at 18:00; Start 08/12/18 at 18:00; Stop 08/13/18 at 17:59; Status DC Sodium Chloride 200 meq/Sodium Acetate 40 meq/ Potassium Chloride 40 meq/ Potassium Phosphate 20 mmol/ Magnesium Sulfate 4.7 meq/Calcium Gluconate 2381 mg/ Multivitamins 10 ml/Chromium/ Copper/Manganese/ Seleni/Zn 1 ml/ Insulin Human Regular 35.7 units/Amino Acids/ Dextrose 2,133.0087 ml @ 70 mls/hr ONCE@1800 IV Last administered on 08/17/18at 18:38; Start 08/17/18 at 18:00; Stop 08/18/18 at 17:59; Status DC Sodium Chloride 200 meq/Sodium Acetate 40 meq/ Potassium Chloride 40 meq/ Potassium Phosphate 20 mmol/ Magnesium Sulfate 4.7 meq/Calcium Gluconate 2381 mg/ Multivitamins 10 ml/Chromium/ Copper/Manganese/ Seleni/Zn 1 ml/ Insulin Human Regular 35.7 units/Amino Acids/ Dextrose 2,133.0087 ml @ 70 mls/hr ONCE@1800 IV Last administered on 08/13/18at 17:50; Start 08/13/18 at 18:00; Stop 08/14/18 at 17:59; Status DC Sodium Chloride 200 meq/Sodium Acetate 40 meq/ Potassium Chloride 40 meq/ Potassium Phosphate 20 mmol/ Magnesium Sulfate 4.76 meq/Calcium Gluconate 2381 mg/ Insulin Human Regular 35.7 units/Amino Acids/ Dextrose 2,122.0237 ml @ 70 mls/hr ONCE@1800 IV Last administered on 08/25/18at 18:37; Start 08/25/18 at 18:00; Stop 08/26/18 at 17:59; Status DC Sodium Chloride 200 meq/Sodium Acetate 40 meq/ Potassium Chloride 40 meq/ Potassium Phosphate 20 mmol/ Magnesium Sulfate 4.76 meq/Calcium Gluconate 2381 mg/ Multivitamins 10 ml/Chromium/ Copper/Manganese/ Seleni/Zn 1 ml/ Insulin Human Regular 35.7 units/Amino Acids/ Dextrose 2,133.0237 ml @ 70 mls/hr ONCE@1800 IV Last administered on 08/27/18at 17:54; Start 08/27/18 at 18:00; Stop 08/28/18 at 17:59; Status DC Sodium Chloride 200 meq/Sodium Acetate 40 meq/ Potassium Chloride 40 meq/ Potassium Phosphate 20 mmol/ Magnesium Sulfate 4.76 meq/Calcium Gluconate 2381 mg/ Multivitamins 10 ml/Chromium/ Copper/Manganese/ Seleni/Zn 1 ml/ Insulin Human Regular 35.7 units/Amino Acids/ Dextrose 2,133.0237 ml @ 70 mls/hr ONCE@1800 IV Last administered on 08/29/18at 17:50; Start 08/29/18 at 18:00; Stop 08/30/18 at 17:59; Status DC Sodium Chloride 200 meq/Sodium Acetate 40 meq/ Potassium Chloride 40 meq/ Potassium Phosphate 20 mmol/ Magnesium Sulfate 4.8 meq/Calcium Gluconate 2380 mg/ Insulin Human Regular 35.7 units/Amino Acids/ Dextrose 2,122.0237 ml @ 70 mls/hr ONCE@1800 IV Last administered on 08/30/18at 18:01; Start 08/30/18 at 18:00; Stop 08/31/18 at 17:59; Status DC Sodium Chloride 200 meq/Sodium Acetate 40 meq/ Potassium Chloride 40 meq/ P otassium Phosphate 20 mmol/ Magnesium Sulfate 4.8 meq/Calcium Gluconate 2380 mg/ Insulin Human Regular 36 units/ Amino Acids/ Dextrose 2,122.0267 ml @ 70 mls/hr ONCE@1800 IV Last administered on 08/18/18at 17:24; Start 08/18/18 at 18:00; Stop 08/19/18 at 12:16; Status DC Sodium Chloride 200 meq/Sodium Acetate 40 meq/ Potassium Chloride 40 meq/ Potassium Phosphate 20 mmol/ Magnesium Sulfate 4.8 meq/Calcium Gluconate 2380 mg/ Insulin Human Regular 36 units/ Amino Acids/ Dextrose 2,122.0267 ml @ 70 mls/hr ONCE@1800 IV Last administered on 08/26/18at 18:05; Start 08/26/18 at 18:00; Stop 08/27/18 at 17:59; Status DC Sodium Chloride 200 meq/Sodium Acetate 40 meq/ Potassium Chloride 40 meq/ Potas sium Phosphate 20 mmol/ Magnesium Sulfate 4.8 meq/Calcium Gluconate 2380 mg/ Insulin Human Regular 36 units/ Amino Acids/ Dextrose 2,122.0267 ml @ 70 mls/hr ONCE@1800 IV Last administered on 09/01/18at 18:51; Start 09/01/18 at 18:00; Stop 09/02/18 at 17:59; Status DC Sodium Chloride 200 meq/Sodium Acetate 40 meq/ Potassium Chloride 40 meq/ Potassium Phosphate 20 mmol/ Magnesium Sulfate 4.8 meq/Calcium Gluconate 2380 mg/ Insulin Human Regular 36 units/ Amino Acids/ Dextrose 2,122.0267 ml @ 70 ml s/hr ONCE@1800 IV Last administered on 09/02/18at 18:21; Start 09/02/18 at 18:00; Stop 09/03/18 at 17:59; Status DC Sodium Chloride 200 meq/Sodium Acetate 40 meq/ Potassium Chloride 40 meq/ Potassium Phosphate 20 mmol/ Magnesium Sulfate 4.8 meq/Calcium Gluconate 2380 mg/ Multivitamins 10 ml/Chromium/ Copper/Manganese/ Seleni/Zn 1 ml/ Insulin Human Regular 36 units/ Amino Acids/ Dextrose 2,133.0267 ml @ 70 mls/hr ONCE@1800 IV Last administered on 08/24/18at 18:29; Start 08/24/18 at 18:00; Stop 08/25/18 at 17:59; Status DC Sodium Chloride 200 meq/Sodium Acetate 40 meq/ Potassium Chloride 40 meq/ Potassium Phosphate 20 mmol/ Magnesium Sulfate 4.8 meq/Calcium Gluconate 2380 mg/ Multivitamins 10 ml/Chromium/ Copper/Manganese/ Seleni/Zn 1 ml/ Insulin Human Regular 36 units/ Amino Acids/ Dextrose 2,133.0267 ml @ 70 mls/hr ONCE@1800 IV ; Start 09/02/18 at 18:00; Stop 09/03/18 at 17:59; Status Cancel Sodium Chloride 200 meq/Sodium Acetate 40 meq/ Potassium Chloride 40 meq/ Potassium Phosphate 20 mmol/ Magnesium Sulfate 4.8 meq/Calcium Gluconate 2381 mg/ Insulin Human Regular 36 units/ Amino Acids/ Dextrose 2,122.0367 ml @ 70 mls/hr ONCE@1800 IV Last administered on 08/28/18at 17:19; Start 08/28/18 at 18:00; Stop 08/29/18 at 17:59; Status DC Sodium Chloride 200 meq/Sodium Acetate 40 meq/ Potassium Chloride 40 meq/ Potassium Phosphate 20 mmol/ Magnesium Sulfate 4.8 meq/Calcium Gluconate 2381 mg/ Insulin Human Regular 36 units/ Amino Acids/ Dextrose 2,122.0367 ml @ 70 mls/hr ONCE@1800 IV Last administered on 09/04/18at 18:45; Start 09/04/18 at 18:00; Stop 09/05/18 at 17:59 Sodium Chloride 200 meq/Sodium Acetate 40 meq/ Potassium Chloride 40 meq/ Potassium Phosphate 20 mmol/ Magnesium Sulfate 4.8 meq/Calcium Gluconate 2381 mg/ Multivitamins 10 ml/Chromium/ Copper/Manganese/ Seleni/Zn 1 ml/ Insulin Human Regular 36 units/ Amino Acids/ Dextrose 2,133.0367 ml @ 70 mls/hr ONCE@180 0 IV Last administered on 08/31/18at 19:17; Start 08/31/18 at 18:00; Stop 09/01/18 at 17:59; Status DC Succinylcholine Chloride (Quelicin) 100 mg STAT STAT IV Last administered on 07/31/18at 05:13; Start 07/31/18 at 05:30; Stop 07/31/18 at 05:47; Status DC Tiotropium [place] (Spiriva Handihaler) 1 inhalation DAILY@08 INH Last administered on 09/04/18at 09:14; Start 08/27/18 at 08:00 Vancomycin HCl 1000 mg/IV Miscellaneous Supplies 1 each/ Dextrose 270 ml @ 270 mls/hr Q12H IV Last administered on 08/01/18at 20:49; Start 08/01/18 at 21:00; Stop 08/02/18 at 12:40; Status DC Vancomycin HCl 1000 mg/IV Miscellaneous Supplies 1 each/ Dextrose 270 ml @ 270 mls/hr Q24H IV ; Start 08/03/18 at 08:00; Stop 08/03/18 at 08:00; Status DC Vancomycin HCl 1000 mg/IV Miscellaneous Supplies 1 each/ Dextrose 270 ml @ 270 mls/hr Q8H IV Last administered on 08/01/18at 10:11; Start 07/31/18 at 11:00; Stop 08/01/18 at 18:15; Status DC Vasopressin 20 units/Sodium Chloride 500 ml @ 60 mls/hr Q8H20M IV Last administered on 08/08/18at 08:12; Start 08/02/18 at 15:00; Stop 08/12/18 at 14:59; Status DC Vecuronium [place] (Norcuron) 10 mg STAT STAT IV Last administered on 07/31/18at 05:27; Start 07/31/18 at 05:30; Stop 07/31/18 at 05:47; Status DC Allergies Coded Allergies: No Known Drug Allergy (Verified Allergy, Unknown, 11/28/16) Objective Physical Examination Examination GENERAL APPEARANCE:comfortable. SKIN: warm and dry. HEENT: mild pale palpebral conjunctivae. NECK: Supple, no thyromegaly. No obvious jugular venous distention. LUNGS: Clear to auscultation bilaterally. No wheezing appreciated. HEART: No chest wall abnormalities. Regular rate and rhythm with no murmurs appreciated. ABDOMEN: Abdomen is still distended with tenderness over right lower quadrant area and infraumbilical area with moderate guarding. Nontender over left of abdomen. Relatively quiet. EXTREMITIES: Extremities have no deformities. No edema identified. Vital Signs Vital Signs Date Time Temp Pulse Resp B/P (MAP) Pulse Ox O2 Delivery O2 Flow Rate FiO2 09/05/18 06:12 18 09/05/18 06:05 137/77 09/05/18 06:00 98.9 79 97 Room Air 09/02/18 16:00 2.0 08/31/18 05:32 60 I&Os I&O- Last 24 Hours up to 6 AM 09/05/18 06:00 Intake Total 2930 ml Output Total 4500 ml Balance -1570 ml Laboratory Data Labs 24H Laboratory Tests 2 09/04/18 11:22: Bedside Glucose (Misc Panel) 158H 09/04/18 17:08: Bedside Glucose (Misc Panel) 112H 09/04/18 23:52: Bedside Glucose (Misc Panel) 181H 09/05/18 05:50: Bedside Glucose (Misc Panel) 176H 09/05/18 06:19: Nucleated Red Blood Cells % (auto) 0.0, Blood Urea Nitrogen 27H, Creatinine 1.73H, Sodium Level 139, Potassium Level 3.8, Chloride Level 108H, Carbon Dioxide Level 23, Anion Gap 8, Glomerular Filtration Rate 44.7L, Calcium Level 8.1L, Phosphorus Level 3.1#, Albumin 1.8L, Prealbumin 14.2L CBC/BMP Laboratory Tests 09/05/18 06:19 Red Blood Count 2.97 L, Mean Corpuscular Volume 92.6, Mean Corpuscular Hemoglobin 28.6, Mean Corpuscular Hemoglobin Concent 30.9 L, Red Cell Distribution Width 14.9 H, Anion Gap 8 Impression Acute Pancreatitis - resolved Ischemic colitis of sigmoid colon Patient for flexible sigmoidoscopy today to visualize extent of the colitis. Also he may benefit from decompressing that portion of the colon. consent obtained from the patient. I did not hold the plavix given that he had a significant HI within a month ago. That puts him at risk for bleeding. Depending on findings on colonoscopy may need further intervention. Plan / VTE VTE Prophylaxis Ordered?: Yes JUAN DAVID VANCE MD Sep 05, 2018 08:58
[2018-09-05] MEDS: AMIODARONE 200 MG TAB (PACERONE) PO SCH (09:48)
[2018-09-05] MEDS: CLOPIDOGREL 75 MG TAB PO SCH (09:48)
[2018-09-05] MEDS: PANTOPRAZOLE 40MG INJ (PROTONIX) (C9113) IV SCH (09:48)
[2018-09-05] MEDS: CARVedilol 6.25 MG TAB PO SCH ×2 (09:49→20:35)
[2018-09-05] MEDS ORDERED: LIDOCAINE 2% INJ 100 MG/5 ML SDV (FOR ANES.) As Ordered ONE (11:51)
[2018-09-05] MEDS ORDERED: PROPOFOL 200 MG/20 ML VIAL As Ordered ONE ×2 (11:51→13:23)
--- NOTE | 2018-09-05 13:20 | IPN ---
DATE: 09/05/2018 He still has abdominal pain, it might be a little better than yesterday. His white count is trending down. He is out for a colonoscopy today. PHYSICAL EXAM: Afebrile. Vital signs are stable. 177. General appearance, he is resting comfortably. Lungs clear rhythm. Abdomen is soft and slightly distended. LABS: White count down to 11.6, otherwise no change in labs from yesterday. IMPRESSION: Colitis. PLAN: Colonoscopy today. Treatment essentially per surgery.
--- NOTE | 2018-09-05 13:23 | ROOR ---
Patient Name: Dae Shipman Procedure Date: 09/05/2018 12:38 PM Date of : 1970 Age: 48 Room: [facility] Gender: Male Note Status: Finalized Procedure: Flexible Sigmoidoscopy Indications: Abdominal pain in the right lower quadrant, Suspected acute ischemic colitis Providers: Jarrod Nolasco MD Referring MD: Ilana BROOKE, 2. Inpatient 2. Inpatient Requesting Provider: Medicines: Monitored Anesthesia Care Complications: No immediate complications. Procedure: Pre-Anesthesia Assessment: - Prior to the procedure, a History and Physical was performed, and patient medications and allergies were reviewed. The patient is competent. The risks and benefits of the procedure and the sedation options and risks were discussed with the patient. All questions were answered and informed consent was obtained. Patient identification and proposed procedure were verified by the physician, the nurse and the anesthesiologist in the endoscopy suite. Mental Status Examination: alert and oriented. Airway Examination: normal oropharyngeal airway and neck mobility. Respiratory Examination: clear to auscultation. CV Examination: status post pacemaker / automatic defibrillator placement. Prophylactic Antibiotics: The patient does not require prophylactic antibiotics. Prior Anticoagulants: The patient has taken Plavix (clopidogrel), last dose was day of procedure. ASA Grade Assessment: IV - A patient with severe systemic disease that is a constant threat to life. After reviewing the risks and benefits, the patient was deemed in satisfactory condition to undergo the procedure. The anesthesia plan was to use monitored anesthesia care (MAC). Immediately prior to administration of medications, the patient was re-assessed for adequacy to receive sedatives. The heart rate, respiratory rate, oxygen saturations, blood pressure, adequacy of pulmonary ventilation, and response to care were monitored throughout the procedure. The physical status of the patient was re-assessed after the procedure. The Colonoscope was introduced through the anus and advanced to 60 cm from the anal verge. The Colonoscope was introduced through the anus and advanced to 60 cm from the anal verge. The flexible sigmoidoscopy was technically difficult and complex due to poor endoscopic visualization. The patient tolerated the procedure well. The quality of the bowel preparation was. Colon is unprepped. Findings: The perianal and digital rectal examinations were normal. A segmental (50 to 70 cm ) area of moderately congested, granular, hemorrhagic, inflamed, nodular and pseudomembrane-covered mucosa was found in the sigmoid colon. Significant mucosal changes, damage most likely related to ischemic colitis with mucosal inflammatory nodularities, pseudomembrane, mucosal sloughing, erosion and contact bleeding. I was not able to get past the sigmoid colon (70 cms) due to inability to clear the stool from the colon. Impression: - Congested, granular, hemorrhagic, inflamed, nodular and pseudomembrane-covered mucosa in the sigmoid colon. - No specimens collected. Recommendation: - Admit the patient to [facility] for ongoing care. - Continue present medications. Jarrod Nolasco MD Jarrod Nolasco MD 09/05/2018 1:22:19 PM This report has been signed electronically. Number of Addenda: 0 Note Initiated On: 09/05/2018 12:38 PM Estimated Blood Loss: Estimated blood loss: none.
[2018-09-05 14:00] VITALS: BP 135/69
[2018-09-05] MEDS: CIPROFLOXACIN 200 MG in APPROPRIATE DILUENT 1 EA IV SCH ×2 (14:57→23:49)
[2018-09-05] MEDS ORDERED: FAT EMULSION IV 20% 500 ML IV SCH (18:00)
[2018-09-05] MEDS ORDERED: AMINO ACID/ DEXTROSE 2,000 ML IV SCH (18:00)
[2018-09-05 18:13] VITALS: BP 123/60
[2018-09-05] MEDS: SANTYL OINT 30GM TOP SCH (18:35)
--- NOTE | 2018-09-05 19:53 | IPN ---
DATE: 09/05/2018 Mr. Shipman is seen this morning on his bedside. He is feeling better and reports that his dyspnea and lower extremity edema has improved since yesterday. He was dialyzed and 4 liters fluid was removed. He remains on TPN and is scheduled for colonoscopy at noon today followed by possible colon resection. He has no fever or chills. He remains on intravenous Flagyl and metronidazole for colitis. There is a consideration for possible ischemic colitis and he might require colon resection. His kidney function has not improved and he gets volume overloaded due to TPN and has required dialysis. Intake and output records from yesterday show total intake 2380 and output 4300 out of which 4000 was removed with dialysis. PHYSICAL EXAMINATION Temperature is 98.6 degrees Fahrenheit, heart rate 80 per minute and respiratory rate 16 per minute. Blood pressure 123/60 mmHg and oxygen saturation 97% on room air. Head: Is atraumatic. Neck is supple and without JVD or thyroid enlargement. He has no oral thrush or ulcers. Heart: Sounds are regular and lungs clear to auscultation. Abdomen: Soft but distended and tender and bowel sounds are present. Extremities: Have no cyanosis or clubbing. Neurologically he is awake, alert and oriented times three. LABS: Today's labs show WBC count 11.6, hemoglobin 8.5 and hematocrit 27.5. Platelets 310. Sodium 139, potassium 3.8, CO2 23, BUN 27 and creatinine 1.73. Glucose 192 and calcium 8.1. PROBLEMS: 1. Acute renal failure superimposed on chronic kidney disease. The patient has partial recovery of kidney function and he is making some urine. However, his kidney function is not adequate to prevent hypervolemia and he has been requiring dialysis. He was dialyzed yesterday and we will reevaluate him for tomorrow. We will most likely continue to dialyze him in order to maintain his volume status and prevent hypervolemia. 2. Anemia. This is related to ongoing colitis and acute renal failure. He has mild worsening of his anemia but there is no emergent indication for a transfusion. CBC will be checked again tomorrow morning. 3. Nutrition. The patient remains on TPN which is being managed by hospitalist service. 4. Ischemic colitis. The patient is scheduled for colonoscopy and there is consideration for possible colectomy. In any event, he remains on Flagyl and Cipro intravenously and his leukocytosis is improving but his abdominal tenderness still persists.
[2018-09-05 22:00] VITALS: BP 130/67
[2018-09-06] MEDS: metroNIDAZOLE 500 MG in APPROPRIATE DILUENT 1 EA IV SCH ×3 (03:24→19:13)
[2018-09-06] MEDS: HYDROMORPHONE HCL 0.5 MG/ 0.5 ML SYRINGE (J1170 PER 1) IV PRN ×4 (03:26→21:02)
[2018-09-06 06:00] VITALS: BP 133/72
[2018-09-06] MEDS: HumaLOG INSULIN (NovoLOG) PER UNIT SC SCH ×3 (06:26→18:10)
[2018-09-06] MEDS: PANTOPRAZOLE 40MG INJ (PROTONIX) (C9113) IV SCH (06:26)
[2018-09-06] MEDS: AMIODARONE 200 MG TAB (PACERONE) PO SCH (06:28)
[2018-09-06] MEDS: ISOSORBIDE DIN. (ISORDIL) 30 MG TAB PO SCH ×3 (06:28→17:22)
[2018-09-06] MEDS: CLOPIDOGREL 75 MG TAB PO SCH (06:28)
[2018-09-06] MEDS: SANTYL OINT 30GM TOP SCH (06:29)
[2018-09-06] MEDS: ONDANSETRON 4MG/2ML VIAL (J2405) IV PRN ×2 (06:53→17:09)
[2018-09-06 06:59] LABS: BASO # 0.1 10^3/uL (0.0-0.2); EOS # 0.6 10^3/uL (0.0-0.50); EOS % 5.3 % (0.0-3.0); HEMATOCRIT 27.2 % (42.0-52.0); HEMOGLOBIN 8.3 g/dl (13.5-17.5); LYMPH # 1.4 10^3/uL (1.5-4.5); MEAN CORPUSCULAR HEMOGLOBIN 28.4 pg (27.0-33.0); MEAN CORPUSCULAR HGB CONC 30.5 g/dl (32.0-36.5); MEAN CORPUSCULAR VOLUME 93.2 fl (80.0-96.0); MONO # 1.5 10^3/uL (0.0-0.8); MONO % 13.4 % (0.0-5.0); NEUTROPHILS # 7.6 10^3/uL (1.8-7.7); NEUTROPHILS % 67.3 % (36.0-66.0); PLATELET COUNT, AUTOMATED 272 10^3/uL (150-450); RED BLOOD COUNT 2.92 10^6/uL (4.30-6.10); WHITE BLOOD COUNT 11.2 10^3/uL (4.0-10.0)
[2018-09-06 07:19] LABS: ALBUMIN 1.7 GM/DL (3.2-5.2); CREATININE FOR GFR 1.95 MG/DL (0.70-1.30); POTASSIUM SERUM 3.4 MEQ/L (3.5-5.1)
[2018-09-06] MEDS: TIOTROPIUM INHALER/CAPSULE (SPIRIVA) INH SCH (08:00)
[2018-09-06] MEDS: SYMBICORT 160/4.5MCG INHALER 6GM INH SCH (08:28)
[2018-09-06] MEDS: SODIUM CHLORIDE 0.9% INJ 10 ML SYR IV SCH (08:32)
[2018-09-06] MEDS ORDERED: POTASSIUM CHLORIDE 10 MEQ SR TABLET PO ONE (10:15)
[2018-09-06] MEDS ORDERED: FUROSEMIDE 40 MG/4 ML VIAL (J1940) IV ONE (10:15)
[2018-09-06] MEDS ORDERED: KCL 10MEQ/100ML SWI (KRUN) 10 MEQ in APPROPRIATE DILUENT 1 EA IV ONE (11:00)
[2018-09-06] MEDS: CARVedilol 6.25 MG TAB PO SCH ×2 (11:48→21:02)
[2018-09-06] MEDS: CIPROFLOXACIN 200 MG in APPROPRIATE DILUENT 1 EA IV SCH (12:00)
--- NOTE | 2018-09-06 12:54 | IPNPDOC ---
Subjective General Date/Time Seen The patient was seen on 09/06/18 at 12:48. Subject Chief Complaint/History The patient is a 48-year-old male admitted with a reason for visit of Ischemic Colitis. Patient was visited again today. He had colonoscopy yesterday. This shows significant mucosal inflammation but does not seem to be transmural. He is having multiple loose stools now. He denies nausea. He reports poor appetite. He still complains of pain though he is noticeably more comfortable than he was last week. Current Medications Current Medications Current Medications Acetaminophen (Tylenol Suspension) 650 mg Q4HP PRN GT PAIN OR FEVER Last administered on 08/11/18 07:09; Start 08/03/18 at 10:45; Stop 08/11/18 at 09:27; Status DC Acetaminophen (Tylenol Tab) 650 mg Q6HP PRN PO PAIN / FEVER Last administered on 08/21/18at 06:39; Start 08/20/18 at 17:30 Albuterol Sulfate (Proventil Neb) 2.5 mg Q2HP PRN NEB SOB/WHEEZING Last administered on 09/01/18at 03:00; Start 08/27/18 at 06:15 Albuterol Sulfate (Proventil Neb) 2.5 mg RQID NEB Last administered on 08/27/18at 20:46; Start 07/31/18 at 08:00; Stop 08/28/18 at 10:00; Status DC Amino Acids/ Dextrose 2,000 ml @ 70 mls/hr ONCE@1800 IV Last administered on 09/05/18at 18:35; Start 09/05/18 at 18:00; Stop 09/06/18 at 17:59 Amiodarone HCl (Pacerone, Cordarone) 400 mg DAILY PO Last administered on at 06:28; Start 08/14/18 at 09:00 Amiodarone HCl (Pacerone, Cordarone) 400 mg Q12H GT Last administered on 08/13/18at 10:15; Start 08/11/18 at 09:00; Stop 08/13/18 at 15:15; Status DC Amiodarone HCl (Pacerone, Cordarone) 400 mg Q8H GT Last administered on 08/10/18at 21:26; Start 08/02/18 at 22:00; Stop 08/10/18 at 21:52; Status DC Amiodarone HCl 360 mg/IV Miscellaneous Supplies 200 ml @ 16.66 mls/ hr Q12H1M IV ; Start 08/02/18 at 20:00; Stop 08/02/18 at 20:00; Status DC Amiodarone HCl 360 mg/IV Miscellaneous Supplies 200 ml @ 33.33 mls/ hr Q6H1M IV Last administered on 08/02/18at 13:30; Start 08/02/18 at 14:00; Stop 08/02/18 at 20:00; Status DC Aspirin (Aspirin Chewable) 81 mg BID NG Last administered on 08/13/18at 10:14; Start 07/31/18 at 09:00; Stop 08/13/18 at 15:15; Status DC Aspirin (Ecotrin) 81 mg BID PO ; Start 07/31/18 at 09:00; Stop 07/31/18 at 12:11; Status DC Aspirin (Ecotrin) 81 mg DAILY PO Last administered on 08/26/18at 08:51; Start 08/14/18 at 09:00; Stop 08/27/18 at 06:28; Status DC Bisoprolol Fumarate (Zebeta) 2.5 mg Q12H GT Last administered on 08/10/18at 09:18; Start 08/02/18 at 21:00; Stop 08/10/18 at 11:23; Status DC Budesonide/ Formoterol Fumarate (Symbicort 160/ 4.5mcg) 2 puff BID INH Last administered on 09/05/18at 21:16; Start 08/27/18 at 09:00 Calcium Gluconate 1000 mg/Dextrose 110 ml @ 110 mls/hr ASDIRECTED IV ; Start 08/03/18 at 16:00; Status UNV Calcium Gluconate 1000 mg/Dextrose 110 ml @ 110 mls/hr Q1H IV Last administered on 08/03/18at 17:18; Start 08/03/18 at 16:30; Stop 08/03/18 at 18:29; Status DC Calcium Gluconate 1000 mg/Dextrose 110 ml @ 110 mls/hr Q1H IV Last administered on 08/04/18at 10:15; Start 08/04/18 at 09:00; Stop 08/04/18 at 10:59; Status DC Calcium Gluconate 1000 mg/Dextrose 110 ml @ 110 mls/hr Q1H IV Last administered on 08/04/18at 16:00; Start 08/04/18 at 15:00; Stop 08/04/18 at 16:59; Status DC Calcium Gluconate 1000 mg/Dextrose 110 ml @ 110 mls/hr Q1H IV Last administered on 08/05/18at 16:12; Start 08/05/18 at 15:00; Stop 08/05/18 at 16:59; Status DC Calcium Gluconate 1000 mg/Sodium Chloride 110 ml @ 110 mls/hr ASDIRECTED IV ; Start 08/04/18 at 21:30; Stop 08/04/18 at 22:23; Status DC Calcium Gluconate 1000 mg/Sodium Chloride 110 ml @ 110 mls/hr Q1H IV Last administered on 08/05/18at 00:39; Start 08/04/18 at 22:30; Stop 08/05/18 at 01:29; Status DC Calcium Gluconate 1000 mg/Sodium Chloride 110 ml @ 110 mls/hr Q1H IV Last administered on 08/05/18at 04:43; Start 08/05/18 at 03:00; Stop 08/05/18 at 04:59; Status DC Calcium Gluconate 1000 mg/Sodium Chloride 110 ml @ 110 mls/hr Q1H IV Last administered on 08/05/18at 10:15; Start 08/05/18 at 09:00; Stop 08/05/18 at 10:59; Status DC Carvedilol (COReg) 6.25 mg BID PO Last administered on 09/06/18at 11:48; Start 08/16/18 at 21:00 Carvedilol (COReg) 6.25 mg BID PO Last administered on 08/16/18at 08:02; Start 08/13/18 at 21:00; Stop 08/16/18 at 21:07; Status DC Carvedilol (COReg) 6.25 mg Q6H NG Last administered on 07/31/18at 18:13; Start 07/31/18 at 12:00; Stop 08/02/18 at 16:05; Status DC Chlorhexidine Gluconate (Peridex Oral Rinse) SWAB/BRUSH ORAL CAVITY BID MT Last administered on 08/12/18at 08:49; Start 07/31/18 at 09:00; Stop 08/12/18 at 19:14; Status DC Ciprofloxacin 200 mg/IV Miscellaneous Supplies 100 ml @ 100 mls/hr Q12H IV Last administered on 09/05/18at 23:49; Start 08/29/18 at 12:00 Clopidogrel Bisulfate (PLAVix) 75 mg DAILY PO Last administered on 09/06/18 06:28; Start 07/31/18 at 09:00 Collagenase (Santyl) to buttocks and drake... DAILY TOP Last administered on 09/06/18at 06:29; Start 09/05/18 at 09:00 Darbepoetin Jay (Aranesp (Dialysis Use)) 200 mcg HD IV ; Start 08/18/18 at 11:15 Dextrose (Dextrose 50%) 25 ml ASDIRECTED PRN IV SEE LABEL COMMENTS Last administered on 08/11/18at 01:22; Start 08/02/18 at 02:00 Dextrose/Sodium Chloride 1,000 ml @ 40 mls/hr Q24H IV Last administered on 09/03/18at 20:26; Start 09/03/18 at 20:15; Stop 09/04/18 at 05:00; Status DC Diatrizoate Meglum/ Diatrizoate Sod (Gastrografin) 10 ml Q30M PO Last administered on 08/23/18at 08:21; Start 08/23/18 at 07:30; Stop 08/23/18 at 08:01; Status DC Diatrizoate Meglum/ Diatrizoate Sod (Gastrografin) 10 ml Q30M PO Last administered on 08/10/18at 13:51; Start 08/10/18 at 12:00; Stop 08/10/18 at 13:05; Status DC Digoxin (Lanoxin) 0.25 mg Q6H IV Last administered on 08/02/18at 09:50; Start 08/01/18 at 21:00; Stop 08/02/18 at 15:01; Status DC Diphenhydramine HCl (Benadryl) 25 mg Q6HP PRN PO ITCHING Last administered on 09/04/18at 21:09; Start 08/18/18 at 18:00 Etomidate (Amidate) 20 mg STAT STAT IV Last administered on 07/31/18at 05:13; Start 07/31/18 at 05:30; Stop 07/31/18 at 05:47; Status DC Fat Emulsion Intravenous 500 ml @ 20 mls/hr ONCE@1800 IV Last administered on 08/17/18at 18:39; Start 08/17/18 at 18:00; Stop 08/18/18 at 17:59; Status DC Fat Emulsion Intravenous 500 ml @ 20 mls/hr ONCE@1800 IV Last administered on 08/18/18at 17:23; Start 08/18/18 at 18:00; Stop 08/19/18 at 12:16; Status DC Fat Emulsion Intravenous 500 ml @ 20 mls/hr ONCE@1800 IV Last administered on 08/24/18at 18:29; Start 08/24/18 at 18:00; Stop 08/25/18 at 17:59; Status DC Fat Emulsion Intravenous 500 ml @ 20 mls/hr ONCE@1800 IV Last administered on 08/25/18at 18:37; Start 08/25/18 at 18:00; Stop 08/26/18 at 17:59; Status DC Fat Emulsion Intravenous 500 ml @ 20 mls/hr ONCE@1800 IV Last administered on 08/26/18at 18:05; Start 08/26/18 at 18:00; Stop 08/27/18 at 17:59; Status DC Fat Emulsion Intravenous 500 ml @ 20 mls/hr ONCE@1800 IV Last administered on 08/27/18at 17:54; Start 08/27/18 at 18:00; Stop 08/28/18 at 17:59; Status DC Fat Emulsion Intravenous 500 ml @ 20 mls/hr ONCE@1800 IV Last administered on 08/28/18at 17:18; Start 08/28/18 at 18:00; Stop 08/29/18 at 17:59; Status DC Fat Emulsion Intravenous 500 ml @ 20 mls/hr ONCE@1800 IV Last administered on 08/29/18at 17:46; Start 08/29/18 at 18:00; Stop 08/30/18 at 17:59; Status DC Fat Emulsion Intravenous 500 ml @ 20 mls/hr ONCE@1800 IV Last administered on 08/30/18at 18:01; Start 08/30/18 at 18:00; Stop 08/31/18 at 17:59; Status DC Fat Emulsion Intravenous 500 ml @ 20 mls/hr ONCE@1800 IV Last administered on 08/31/18at 19:16; Start 08/31/18 at 18:00; Stop 09/01/18 at 17:59; Status DC Fat Emulsion Intravenous 500 ml @ 20 mls/hr ONCE@1800 IV Last administered on 09/01/18at 18:51; Start 09/01/18 at 18:00; Stop 09/02/18 at 17:59; Status DC Fat Emulsion Intravenous 500 ml @ 20 mls/hr ONCE@1800 IV Last administered on 09/02/18at 18:21; Start 09/02/18 at 18:00; Stop 09/03/18 at 17:59; Status DC Fat Emulsion Intravenous 500 ml @ 20 mls/hr ONCE@1800 IV Last administered on 09/04/18at 18:45; Start 09/04/18 at 18:00; Stop 09/05/18 at 17:59; Status DC Fat Emulsion Intravenous 500 ml @ 20 mls/hr ONCE@1800 IV Last administered on 09/05/18at 18:34; Start 09/05/18 at 18:00; Stop 09/06/18 at 17:59 Fat Emulsion Intravenous 500 ml @ 20 mls/hr ONCE@1800 IV ; Start 09/06/18 at 18:00; Stop 09/07/18 at 17:59 Fat Emulsion Intravenous 500 ml @ 20 mls/hr ONCE@1800 IV Last administered on 08/12/18at 18:01; Start 08/12/18 at 18:00; Stop 08/13/18 at 17:59; Status DC Fat Emulsion Intravenous 500 ml @ 20 mls/hr ONCE@1800 IV Last administered on 08/13/18at 17:50; Start 08/13/18 at 18:00; Stop 08/14/18 at 17:59; Status DC Fentanyl Citrate (Sublimaze) 25 mcg Q1HP PRN IV Pain Last administered on 08/09/18at 16:51; Start 08/02/18 at 12:15; Stop 08/12/18 at 09:12; Status DC Fluconazole 100 mg/IV Miscellaneous Supplies 50 ml @ 50 mls/hr Q24H IV Last administered on 08/13/18at 15:22; Start 08/08/18 at 16:00; Stop 08/13/18 at 22:06; Status DC Furosemide (LASIX injection) 100 mg STAT STAT IV Last administered on 07/31/18at 05:05; Start 07/31/18 at 05:38; Stop 07/31/18 at 05:41; Status DC Glucagon (Glucagon) 1 mg ASDIRECTED PRN SC SEE LABEL COMMENTS; Start 08/02/18 at 02:00 Glucose (Glucose) 16 GM ASDIRECTED PRN PO SEE LABEL COMMENTS; Start 08/02/18 at 02:00 Heparin Sodium (Heparin Lock Flush 10units/ml) 10 units ASDIRECTED PRN IV SEE LABEL COMMENTS Last administered on 08/18/18at 19:49; Start 08/03/18 at 10:30; Stop 08/20/18 at 14:11; Status DC Heparin Sodium (Heparin Lock Flush 10units/ml) 10 units HLF IV Last administered on 08/20/18at 05:24; Start 08/03/18 at 14:00; Stop 08/20/18 at 14:11; Status DC Heparin Sodium (Heparin Lock Flush 10units/ml) 30 units ASDIRECTED PRN IV SEE LABEL COMMENTS Last administered on 09/04/18at 06:36; Start 08/30/18 at 02:15 Heparin Sodium (Heparin Lock Flush 10units/ml) 30 units DAILY IV Last administered on 09/05/18at 06:01; Start 08/30/18 at 09:00 Heparin Sodium (Heparin) ASDIRECTED PRN IV SEE LABEL COMMENTS; Start 08/03/18 at 12:30; Stop 08/07/18 at 10:09; Status DC Heparin Sodium (Heparin) ASDIRECTED PRN IV SEE LABEL COMMENTS Last administered on 08/14/18at 02:20; Start 08/05/18 at 04:00; Stop 09/06/18 at 10:44; Status DC Heparin Sodium (Porcine) (Heparin) ASDIRECTED PRN IV SEE LABEL COMMENTS; Start 07/31/18 at 12:30; Stop 07/31/18 at 12:37; Status DC Heparin Sodium (Porcine) (Heparin) ASDIRECTED PRN IV SEE LABEL COMMENTS Last administered on 07/31/18at 21:31; Start 07/31/18 at 12:45; Stop 08/03/18 at 21:46; Status DC Heparin Sodium (Porcine) (Heparin) 5,000 units Q12H SQ Last administered on 08/13/18at 15:22; Start 08/13/18 at 09:00; Stop 08/13/18 at 17:55; Status DC Heparin Sodium (Porcine) (Heparin) 5,000 units Q8H SC ; Start 07/31/18 at 06:00; Stop 07/31/18 at 12:11; Status DC Heparin Sodium (Porcine) 21025 units/IV Miscellaneous Supplies 250 ml @ 0 mls/hr Q0M IV ; Start 07/31/18 at 12:18; Status UNV Heparin Sodium (Porcine) 06089 units/IV Miscellaneous Supplies 250 ml @ 0 mls/hr Q0M IV ; Start 07/31/18 at 12:38; Stop 07/31/18 at 12:43; Status DC Heparin Sodium (Porcine) 91744 units/IV Miscellaneous Supplies 250 ml @ 0 mls/hr Q0M IV Last administered on 08/02/18at 09:40; Start 07/31/18 at 12:41; Stop 08/03/18 at 21:34; Status DC Home Med (Med Rec Complete!) ASDIRECTED XX ; Start 07/31/18 at 07:30; Stop 07/31/18 at 07:30; Status DC Hydralazine HCl (Apresoline) 10 mg QID PO Last administered on 08/21/18at 09:04; Start 08/16/18 at 21:00; Stop 08/21/18 at 10:17; Status DC Hydralazine HCl (Apresoline) 10 mg QID PO Last administered on 08/16/18at 17:47; Start 08/13/18 at 17:00; Stop 08/16/18 at 21:07; Status DC Hydralazine HCl (Apresoline) 10 mg TID PO Last administered on 08/21/18at 17:20; Start 08/21/18 at 16:00; Stop 08/21/18 at 18:01; Status DC Hydralazine HCl (Apresoline) 20 mg STAT STAT IV Last administered on 07/31/18at 05:09; Start 07/31/18 at 05:15; Stop 07/31/18 at 05:41; Status DC Hydromorphone HCl (Dilaudid) 0.2 mg Q3HP PRN IV MILD PAIN (PS 1-4); Start 08/21/18 at 12:45; Stop 08/22/18 at 10:37; Status DC Hydromorphone HCl (Dilaudid) 0.2 mg Q3HP PRN IV MILD PAIN (PS 1-4); Start 08/22/18 at 10:45; Stop 08/23/18 at 08:57; Status DC Hydromorphone HCl (Dilaudid) 0.3 mg Q3HP PRN IV MILD PAIN (PS 1-4) Last administered on 09/06/18at 11:31; Start 08/23/18 at 09:00 Hydromorphone HCl (Dilaudid) 0.4 mg Q3HP PRN IV MODERATE PAIN (PS 5-7) Last administered on 08/22/18at 09:20; Start 08/21/18 at 12:45; Stop 08/22/18 at 10:37; Status DC Hydromorphone HCl (Dilaudid) 0.4 mg Q3HP PRN IV MODERATE PAIN (PS 5-7) Last administered on 08/23/18at 08:30; Start 08/22/18 at 10:45; Stop 08/23/18 at 08:57; Status DC Hydromorphone HCl (Dilaudid) 0.6 mg Q3HP PRN IV MODERATE PAIN (PS 5-7) Last administered on 08/31/18at 05:32; Start 08/23/18 at 09:00; Stop 08/31/18 at 07:12; Status DC Hydromorphone HCl (Dilaudid) 0.9 mg Q3HP PRN IV SEVERE PAIN (PS 8-10) Last administered on 09/06/18at 03:26; Start 08/31/18 at 07:15 Insulin Detemir (Levemir Insulin) 10 units QHS SC Last administered on 08/16/18at 21:39; Start 08/14/18 at 21:00; Stop 08/17/18 at 08:27; Status DC Insulin Detemir (Levemir Insulin) 25 units QAM SC Last administered on 08/25/18at 09:04; Start 08/20/18 at 09:00; Stop 08/25/18 at 09:24; Status DC Insulin Detemir (Levemir Insulin) 25 units QAM SC Last administered on 08/18/18at 10:57; Start 08/15/18 at 09:00; Stop 08/19/18 at 07:53; Status DC Insulin Detemir (Levemir Insulin) 25 units QHS SC Last administered on 08/13/18at 18:21; Start 08/13/18 at 18:15; Stop 08/14/18 at 08:08; Status DC Insulin Detemir (Levemir Insulin) 35 units QAM SC Last administered on 08/19/18at 08:51; Start 08/19/18 at 09:00; Stop 08/20/18 at 07:35; Status DC Insulin Human Lispro (HumaLOG INSULIN) SEE PROTOCOL TABLE AC SC Last administered on 08/24/18at 12:51; Start 08/15/18 at 07:30; Stop 08/24/18 at 20:12; Status DC Insulin Human Lispro (HumaLOG INSULIN) SEE PROTOCOL TABLE AC SC ; Start 08/15/18 at 07:30; Stop 08/15/18 at 07:30; Status DC Insulin Human Lispro (HumaLOG INSULIN) SEE PROTOCOL TABLE Q6H SC Last administered on 09/06/18at 06:26; Start 08/25/18 at 00:00 Insulin Human Lispro (HumaLOG INSULIN) SEE PROTOCOL TABLE Q6H SC Last administered on 08/10/18at 11:37; Start 08/08/18 at 12:00; Stop 08/10/18 at 16:59; Status DC Insulin Human Lispro (HumaLOG INSULIN) SEE PROTOCOL TABLE Q6H SC Last administered on 08/08/18at 05:58; Start 08/02/18 at 12:00; Stop 08/08/18 at 07:35; Status DC Insulin Human Lispro (HumaLOG INSULIN) SEE PROTOCOL TABLE QHS SC Last administered on 08/14/18at 20:59; Start 08/14/18 at 21:00; Stop 08/24/18 at 20:12; Status DC Insulin Human Lispro (HumaLOG INSULIN) See Protocol Table Q6H SC Last administered on 08/18/18at 06:12; Start 08/17/18 at 18:00; Stop 08/18/18 at 12:01; Status DC Insulin Human Lispro (HumaLOG INSULIN) See Protocol Table Q6H SC Last administered on 08/19/18at 12:48; Start 08/18/18 at 18:00; Stop 08/19/18 at 12:01; Status DC Insulin Human Lispro (HumaLOG INSULIN) See Protocol Table Q6H SC ; Start 08/25/18 at 18:00; Stop 08/25/18 at 23:46; Status DC Insulin Human Lispro (HumaLOG INSULIN) See Protocol Table Q6H SC ; Start 09/02/18 at 18:00; Stop 09/03/18 at 12:01; Status Cancel Insulin Human Lispro (HumaLOG INSULIN) See Protocol Table Q6H SC Last administered on 08/13/18at 12:09; Start 08/12/18 at 18:00; Stop 08/13/18 at 12:01; Status DC Insulin Human Lispro (HumaLOG INSULIN) See Protocol Table Q6H SC Last administered on 08/14/18at 13:03; Start 08/13/18 at 18:00; Stop 08/14/18 at 12:01; Status DC Insulin Human Regular 100 units/ Sodium Chloride 100 ml @ 4.5 mls/hr [id number] IV Last administered on 08/12/18at 11:49; Start 08/10/18 at 12:00; Stop 08/12/18 at 14:57; Status DC Insulin Human Regular 100 units/ Sodium Chloride 100 ml @ 3 mls/hr Q24H IV ; Start 07/31/18 at 07:00; Stop 07/31/18 at 11:42; Status DC Insulin Human Regular 100 units/ Sodium Chloride 100 ml @ 5 mls/hr Q20H IV Last administered on 07/31/18at 06:44; Start 07/31/18 at 06:45; Stop 07/31/18 at 09:36; Status DC Insulin Human Regular 100 units/ Sodium Chloride 100 ml @ 8 mls/hr [id number] IV Last administered on 08/02/18at 04:13; Start 07/31/18 at 07:00; Stop 08/02/18 at 10:05; Status DC Isosorbide Dinitrate (Isordil) 10 mg TID@07,12,17 PO Last administered on 08/21/18at 06:39; Start 08/13/18 at 17:00; Stop 08/21/18 at 10:17; Status DC Isosorbide Dinitrate (Isordil) 20 mg TID@07,12,17 PO Last administered on 08/25/18at 06:14; Start 08/21/18 at 12:00; Stop 08/25/18 at 07:41; Status DC Isosorbide Dinitrate (Isordil) 30 mg TID@07,12,17 PO Last administered on 09/06/18at 06:28; Start 08/25/18 at 12:00 Lactobacillus Acidophilus (Bacid) 1 ea WM PO Last administered on 08/29/18at 08:38; Start 08/21/18 at 12:30; Stop 08/29/18 at 14:27; Status DC Levetiracetam 500 mg/Dextrose 105 ml @ 420 mls/hr Q12H IV Last administered on 08/12/18at 08:49; Start 08/05/18 at 09:00; Stop 08/12/18 at 09:12; Status DC Loperamide HCl (Imodium) 2 mg ASDIRECTED PRN PO DIARRHEA Last administered on 08/23/18at 12:00; Start 08/22/18 at 15:45; Stop 08/29/18 at 09:29; Status DC Methylprednisolone (SOLU medrol) 40 mg Q8H IV ; Start 08/27/18 at 06:00; Stop 08/27/18 at 06:45; Status DC Methylprednisolone (SOLUmedrol) 40 mg Q12H IV Last administered on 08/27/18at 08:36; Start 08/27/18 at 06:00; Stop 08/27/18 at 09:30; Status DC Metoclopramide HCl (REGLAN INJection) 5 mg Q8H IV Last administered on 08/11/18at 02:13; Start 08/06/18 at 02:00; Stop 08/11/18 at 09:27; Status DC Metoclopramide HCl (REGLAN INJection) 10 mg Q6H IV Last administered on 08/05/18at 17:52; Start 08/05/18 at 18:00; Stop 08/05/18 at 20:41; Status DC Metronidazole 500 mg/IV Miscellaneous Supplies 100 ml @ 100 mls/hr Q8H IV Last administered on 09/06/18at 03:24; Start 08/29/18 at 11:00 Midazolam HCl (Versed) 2 mg Q15MP PRN IV AGITATION Last administered on 08/10/18at 18:33; Start 08/05/18 at 04:45; Stop 08/12/18 at 09:12; Status DC Midazolam HCl (Versed) 2 mg Q1HP PRN IV AGITATION Last administered on 08/05/18at 04:07; Start 08/02/18 at 21:00; Stop 08/05/18 at 04:43; Status DC Miscellaneous (Unresolved Clarification Entry) SEE LABEL COMMENTS DAILY XX ; Start 08/08/18 at 09:00; Stop 08/08/18 at 15:02; Status DC Miscellaneous (Unresolved Clarification Entry) SEE LABEL COMMENTS DAILY XX ; Start 08/29/18 at 09:00; Stop 08/29/18 at 14:28; Status DC Miscellaneous (Unresolved Clarification Entry) SEE LABEL COMMENTS DAILY XX ; Start 08/14/18 at 09:00; Stop 08/14/18 at 18:25; Status DC Morphine Sulfate (Morphine Sulfate Inj) 2 mg Q4HP PRN IV PAIN Last administered on 08/17/18at 08:53; Start 08/17/18 at 08:45; Stop 08/17/18 at 11:21; Status DC Morphine Sulfate (Morphine Sulfate Inj) 4 mg Q3HP PRN IV PAIN Last administered on 08/20/18at 06:17; Start 08/17/18 at 11:30; Stop 08/20/18 at 10:05; Status DC Nitroglycerin (Nitrostat (1/ 150)) 0.4 mg Q5MP PRN SL CHEST PAIN Last administered on 08/31/18at 22:41; Start 08/27/18 at 05:45 Nitroglycerin 25 mg/IV Miscellaneous Supplies 250 ml @ 3 mls/hr Q24H IV Last administered on 07/31/18at 05:01; Start 07/31/18 at 05:00; Stop 07/31/18 at 09:41; Status DC Non-Formulary Medication ( See Comment Field Below ) VANCO INTERMIT. DOSING ASDIRECTED XX ; Start 08/11/18 at 06:45; Stop 08/14/18 at 03:08; Status DC Non-Formulary Medication (Heparin Iv Rate Change Documentation ml/ Hr) ASDIRECTED XX ; Start 07/31/18 at 12:30; Stop 07/31/18 at 12:37; Status DC Non-Formulary Medication (Heparin Iv Rate Change Documentation ml/ Hr) ASDIRECTED XX Last administered on 08/02/18at 08:04; Start 07/31/18 at 12:45; Stop 08/03/18 at 21:34; Status DC Non-Formulary Medication (Insulin Iv Rate Change Documentation ml/ Hr) ASDIRECTED XX Last administered on 08/12/18at 02:52; Start 08/10/18 at 11:30; Stop 08/12/18 at 19:45; Status DC Non-Formulary Medication (Insulin Iv Rate Change Documentation ml/ Hr) ASDIRECTED XX ; Start 07/31/18 at 06:45; Stop 07/31/18 at 09:36; Status DC Non-Formulary Medication (Insulin Iv Rate Change Documentation ml/ Hr) ASDIRECTED XX ; Start 07/31/18 at 07:00; Stop 07/31/18 at 11:42; Status DC Non-Formulary Medication (Insulin Iv Rate Change Documentation ml/ Hr) ASDIRECTED XX Last administered on 08/02/18at 08:27; Start 07/31/18 at 11:45; Stop 08/02/18 at 10:05; Status DC Norepinephrine Bitartrate 16 mg/ Dextrose 500 ml @ 18.8 mls/hr Q24H IV Last administered on 08/10/18at 11:58; Start 08/05/18 at 00:00; Stop 08/12/18 at 14:59; Status DC Norepinephrine Bitartrate 8 mg/ Dextrose 500 ml @ 37.5 mls/hr [id number] IV Last administered on 07/31/18at 08:00; Start 07/31/18 at 07:51; Stop 07/31/18 at 19:59; Status DC Norepinephrine Bitartrate 8 mg/ Dextrose 500 ml @ 67.5 mls/hr Q7H25M IV Last administered on 08/04/18at 19:42; Start 07/31/18 at 20:00; Stop 08/04/18 at 21:04; Status DC Ondansetron HCl (ZOFRAN INJection) 4 mg Q6HP PRN IV NAUSEA OR VOMITING Last administered on 09/06/18 06:53; Start 08/16/18 at 13:30 Oxycodone/ Acetaminophen (Percocet 5mg/ 325mg Tablet) 1 tab Q4HP PRN PO MILD/MODERATE PAIN (PS 1-7) Last administered on 08/20/18at 10:01; Start 08/18/18 at 09:45; Stop 08/20/18 at 10:05; Status DC Oxycodone/ Acetaminophen (Percocet 5mg/ 325mg Tablet) 2 tab Q6HP PRN PO SEVERE PAIN (PS 8-10) Last administered on 08/19/18 21:01; Start 08/18/18 at 09:45; Stop 08/20/18 at 10:05; Status DC Pancrelipase (Creon-24) 1 ea WM PO Last administered on 08/21/18at 17:23; Start 08/21/18 at 18:00; Stop 08/22/18 at 07:31; Status DC Pancrelipase (Creon-24) 2 ea WM PO Last administered on 08/29/18at 08:39; Start 08/22/18 at 08:00; Stop 08/29/18 at 14:27; Status DC Pantoprazole Sodium (Protonix) 40 mg BID IV Last administered on 08/19/18 21:00; Start 08/15/18 at 09:00; Stop 08/20/18 at 08:59; Status DC Pantoprazole Sodium (Protonix) 40 mg DAILY IV Last administered on 09/06/18 06:26; Start 09/01/18 at 09:00 Pantoprazole Sodium (Protonix) 40 mg DAILY IV Last administered on 08/14/18 09:18; Start 07/31/18 at 09:00; Stop 08/15/18 at 08:52; Status DC Piperacillin Sod/ Tazobactam Sod 3.375 gm/Dextrose 50 ml @ 50 mls/hr Q6H IV Last administered on 08/14/18 18:09; Start 08/02/18 at 13:00; Stop 08/14/18 at 18:25; Status DC Piperacillin Sod/ Tazobactam Sod 4.5 gm/Dextrose 50 ml @ 50 mls/hr Q6H IV Last administered on 08/02/18at 05:26; Start 07/31/18 at 12:00; Stop 08/02/18 at 13:59; Status DC Propofol 1000 mg/ IV Miscellaneous Supplies 100 ml @ 5.25 mls/hr Q19H3M IV Last administered on 07/31/18at 16:56; Start 07/31/18 at 07:51; Stop 07/31/18 at 17:25; Status DC Propofol 1000 mg/ IV Miscellaneous Supplies 100 ml @ 5.25 mls/hr Q19H3M IV Last administered on 08/02/18at 16:59; Start 07/31/18 at 17:24; Stop 08/06/18 at 09:32; Status DC Propofol 1000 mg/ IV Miscellaneous Supplies 100 ml @ 17.33 mls/ hr [id number] IV Last administered on 07/31/18at 05:17; Start 07/31/18 at 05:45; Stop 07/31/18 at 08:07; Status DC Rosuvastatin Calcium (Crestor) 20 mg DAILY PO Last administered on 08/03/18at 09:16; Start 07/31/18 at 09:00; Stop 08/03/18 at 21:47; Status DC Sacubitril/ Valsartan (Entresto 24-26 Mg) 2 tab BID PO Last administered on 07/31/18at 20:08; Start 07/31/18 at 21:00; Stop 08/01/18 at 16:02; Status DC Sodium Bicarbonate 150 meq/Dextrose/Water 1,150 ml @ 100 mls/hr [id number] IV Last administered on 08/03/18at 10:51; Start 08/02/18 at 21:00; Stop 08/03/18 at 18:53; Status DC Sodium Bicarbonate (Sodium Bicarbonate) 50 meq STAT STAT IV Last administered on 07/31/18at 08:00; Start 07/31/18 at 09:02; Stop 07/31/18 at 09:04; Status DC Sodium Bicarbonate (Sodium Bicarbonate) 325 mg QID PO Last administered on 09/01/18at 17:26; Start 09/01/18 at 09:00; Stop 09/01/18 at 18:20; Status DC Sodium Chloride 1,000 ml @ 3 mls/hr Q24H IV Last administered on 08/15/18at 21:11; Start 08/12/18 at 23:00; Stop 08/16/18 at 17:07; Status DC Sodium Chloride 1,000 ml @ 3 mls/hr Q24H IV Last administered on 08/14/18at 00:20; Start 08/12/18 at 23:00; Stop 08/15/18 at 22:31; Status DC Sodium Chloride (Saline Lock Flush) 2 ml ASDIRECTED PRN IV SEE LABEL COMMENTS; Start 08/20/18 at 14:15; Status Cancel Sodium Chloride (Saline Lock Flush) 2 ml ASDIRECTED PRN IV SEE LABEL COMMENTS; Start 08/03/18 at 10:30; Stop 08/05/18 at 21:38; Status DC Sodium Chloride (Saline Lock Flush) 2 ml SLF IV Last administered on 09/02/18at 14:00; Start 08/20/18 at 22:00; Stop 09/03/18 at 03:57; Status DC Sodium Chloride (Saline Lock Flush) 2 ml SLF IV Last administered on 08/04/18at 06:27; Start 08/03/18 at 14:00; Stop 08/05/18 at 21:38; Status DC Sodium Chloride (Saline [place] Flush) 10 ml ASDIRECTED PRN IV SEE LABEL COMMENTS Last administered on 09/04/18at 06:36; Start 08/30/18 at 02:15 Sodium Chloride (Saline Lock Flush) 10 ml ASDIRECTED PRN IV SEE LABEL COMMENTS Last administered on 08/18/18at 19:49; Start 08/03/18 at 10:30; Stop 08/20/18 at 14:11; Status DC Sodium Chloride (Saline Lock Flush) 10 ml DAILY IV Last administered on 09/05/18at 06:01; Start 08/30/18 at 09:00 Sodium Chloride (Saline Lock Flush) 10 ml SLF IV Last administered on 08/20/18at 05:24; Start 08/03/18 at 14:00; Stop 08/20/18 at 14:11; Status DC Sodium Chloride (Saline Lock Flush) 10ML IN EACH SAILAJA... ASDIRECTED PRN IV SEE LABEL COMMENTS; Start 08/09/18 at 10:15; Status Cancel Sodium Chloride (Saline Lock Flush) 10ML IN EACH SAILAJA... ASDIRECTED PRN IV SEE LABEL COMMENTS; Start 08/03/18 at 12:30; Status Cancel Sodium Chloride (Saline Lock Flush) 10ML IN EACH SAILAJA... ASDIRECTED PRN IV SEE LABEL COMMENTS; Start 08/05/18 at 04:00; Status Cancel Sodium Chloride 200 meq/Sodium Acetate 40 meq/ Potassium Chloride 20 meq/ Calcium Gluconate 2381 mg/Insulin Human Regular 12 units/Amino Acids/ Dextrose 2,103.93 ml @ 70 mls/hr ONCE@1800 IV Last administered on 08/12/18at 18:00; Start 08/12/18 at 18:00; Stop 08/13/18 at 17:59; Status DC Sodium Chloride 200 meq/Sodium Acetate 40 meq/ Potassium Chloride 40 meq/ Potassium Phosphate 20 mmol/ Magnesium Sulfate 4.7 meq/Calcium Gluconate 2381 mg/ Multivitamins 10 ml/Chromium/ Copper/Manganese/ Seleni/Zn 1 ml/ Insulin Human Regular 35.7 units/Amino Acids/ Dextrose 2,133.0087 ml @ 70 mls/hr ONCE@1800 IV Last administered on 08/17/18at 18:38; Start 08/17/18 at 18:00; Stop 08/18/18 at 17:59; Status DC Sodium Chloride 200 meq/Sodium Acetate 40 meq/ Potassium Chloride 40 meq/ Potassium Phosphate 20 mmol/ Magnesium Sulfate 4.7 meq/Calcium Gluconate 2381 mg/ Multivitamins 10 ml/Chromium/ Copper/Manganese/ Seleni/Zn 1 ml/ Insulin Human Regular 35.7 units/Amino Acids/ Dextrose 2,133.0087 ml @ 70 mls/hr ONCE@1800 IV Last administered on 08/13/18at 17:50; Start 08/13/18 at 18:00; Stop 08/14/18 at 17:59; Status DC Sodium Chloride 200 meq/Sodium Acetate 40 meq/ Potassium Chloride 40 meq/ Potassium Phosphate 20 mmol/ Magnesium Sulfate 4.76 meq/Calcium Gluconate 2381 mg/ Insulin Human Regular 35.7 units/Amino Acids/ Dextrose 2,122.0237 ml @ 70 mls/hr ONCE@1800 IV Last administered on 08/25/18at 18:37; Start 08/25/18 at 18:00; Stop 08/26/18 at 17:59; Status DC Sodium Chloride 200 meq/Sodium Acetate 40 meq/ Potassium Chloride 40 meq/ Potassium Phosphate 20 mmol/ Magnesium Sulfate 4.76 meq/Calcium Gluconate 2381 mg/ Multivitamins 10 ml/Chromium/ Copper/Manganese/ Seleni/Zn 1 ml/ Insulin Human Regular 35.7 units/Amino Acids/ Dextrose 2,133.0237 ml @ 70 mls/hr ONCE@1800 IV Last administered on 08/27/18at 17:54; Start 08/27/18 at 18:00; Stop 08/28/18 at 17:59; Status DC Sodium Chloride 200 meq/Sodium Acetate 40 meq/ Potassium Chloride 40 meq/ Potassium Phosphate 20 mmol/ Magnesium Sulfate 4.76 meq/Calcium Gluconate 2381 mg/ Multivitamins 10 ml/Chromium/ Copper/Manganese/ Seleni/Zn 1 ml/ Insulin Human Regular 35.7 units/Amino Acids/ Dextrose 2,133.0237 ml @ 70 mls/hr ONCE@1800 IV Last administered on 08/29/18at 17:50; Start 08/29/18 at 18:00; Stop 08/30/18 at 17:59; Status DC Sodium Chloride 200 meq/Sodium Acetate 40 meq/ Potassium Chloride 40 meq/ Potassium Phosphate 20 mmol/ Magnesium Sulfate 4.8 meq/Calcium Gluconate 2380 mg/ Insulin Human Regular 35.7 units/Amino Acids/ Dextrose 2,122.0237 ml @ 70 mls/hr ONCE@1800 IV Last administered on 08/30/18at 18:01; Start 08/30/18 at 18:00; Stop 08/31/18 at 17:59; Status DC Sodium Chloride 200 meq/Sodium Acetate 40 meq/ Potassium Chloride 40 meq/ Potassium Phosphate 20 mmol/ Magnesium Sulfate 4.8 meq/Calcium Gluconate 2380 mg/ Insulin Human Regular 36 units/ Amino Acids/ Dextrose 2,122.0267 ml @ 70 mls/hr ONCE@1800 IV Last administered on 08/18/18at 17:24; Start 08/18/18 at 18:00; Stop 08/19/18 at 12:16; Status DC Sodium Chloride 200 meq/Sodium Acetate 40 meq/ Potassium Chloride 40 meq/ Potassium Phosphate 20 mmol/ Magnesium Sulfate 4.8 meq/Calcium Gluconate 2380 mg/ Insulin Human Regular 36 units/ Amino Acids/ Dextrose 2,122.0267 ml @ 70 mls/hr ONCE@1800 IV Last administered on 08/26/18at 18:05; Start 08/26/18 at 18:00; Stop 08/27/18 at 17:59; Status DC Sodium Chloride 200 meq/Sodium Acetate 40 meq/ Potassium Chloride 40 meq/ Potassium Phosphate 20 mmol/ Magnesium Sulfate 4.8 meq/Calcium Gluconate 2380 mg/ Insulin Human Regular 36 units/ Amino Acids/ Dextrose 2,122.0267 ml @ 70 mls/hr ONCE@1800 IV Last administered on 09/01/18at 18:51; Start 09/01/18 at 18:00; Stop 09/02/18 at 17:59; Status DC Sodium Chloride 200 meq/Sodium Acetate 40 meq/ Potassium Chloride 40 meq/ Potassium Phosphate 20 mmol/ Magnesium Sulfate 4.8 meq/Calcium Gluconate 2380 mg/ Insulin Human Regular 36 units/ Amino Acids/ Dextrose 2,122.0267 ml @ 70 mls/hr ONCE@1800 IV Last administered on 09/02/18at 18:21; Start 09/02/18 at 18:00; Stop 09/03/18 at 17:59; Status DC Sodium Chloride 200 meq/Sodium Acetate 40 meq/ Potassium Chloride 40 meq/ Potassium Phosphate 20 mmol/ Magnesium Sulfate 4.8 meq/Calcium Gluconate 2380 mg/ Multivitamins 10 ml/Chromium/ Copper/Manganese/ Seleni/Zn 1 ml/ Insulin Human Regular 36 units/ Amino Acids/ Dextrose 2,133.0267 ml @ 70 mls/hr ONCE@1800 IV Last administered on 08/24/18at 18:29; Start 08/24/18 at 18:00; Stop 08/25/18 at 17:59; Status DC Sodium Chloride 200 meq/Sodium Acetate 40 meq/ Potassium Chloride 40 meq/ Potassium Phosphate 20 mmol/ Magnesium Sulfate 4.8 meq/Calcium Gluconate 2380 mg/ Multivitamins 10 ml/Chromium/ Copper/Manganese/ Seleni/Zn 1 ml/ Insulin Human Regular 36 units/ Amino Acids/ Dextrose 2,133.0267 ml @ 70 mls/hr ONCE@1800 IV ; Start 09/02/18 at 18:00; Stop 09/03/18 at 17:59; Status Cancel Sodium Chloride 200 meq/Sodium Acetate 40 meq/ Potassium Chloride 40 meq/ Potassium Phosphate 20 mmol/ Magnesium Sulfate 4.8 meq/Calcium Gluconate 2381 mg/ Insulin Human Regular 36 units/ Amino Acids/ Dextrose 2,122.0367 ml @ 70 mls/hr ONCE@1800 IV Last administered on 08/28/18at 17:19; Start 08/28/18 at 18:00; Stop 08/29/18 at 17:59; Status DC Sodium Chloride 200 meq/Sodium Acetate 40 meq/ Potassium Chloride 40 meq/ Potassium Phosphate 20 mmol/ Magnesium Sulfate 4.8 meq/Calcium Gluconate 2381 mg / Insulin Human Regular 36 units/ Amino Acids/ Dextrose 2,122.0367 ml @ 70 mls/hr ONCE@1800 IV Last administered on 09/04/18at 18:45; Start 09/04/18 at 18:00; Stop 09/05/18 at 17:59; Status DC Sodium Chloride 200 meq/Sodium Acetate 40 meq/ Potassium Chloride 40 meq/ Potassium Phosphate 20 mmol/ Magnesium Sulfate 4.8 meq/Calcium Gluconate 2381 mg/ Multivitamins 10 ml/Chromium/ Copper/Manganese/ Seleni/Zn 1 ml/ Insulin Human Regular 36 units/ Amino Acids/ Dextrose 2,133.0367 ml @ 70 mls/hr ONCE@1 800 IV Last administered on 08/31/18at 19:17; Start 08/31/18 at 18:00; Stop 09/01/18 at 17:59; Status DC Sodium Chloride 200 meq/Sodium Acetate 40 meq/ Sodium Phosphate 8 mmol/Potassium Chloride 40 meq/ Potassium Phosphate 20 mmol/ Magnesium Sulfate 4.8 meq/Calcium Gluconate 2380 mg/ Insulin Human Regular 36 units/ Amino Acids/ Dextrose 2,124.6934 ml @ 70 mls/hr ONCE@1800 IV ; Start 09/06/18 at 18:00; Stop 09/07/18 at 17:59 Succinylcholine Chloride (Quelicin) 100 mg STAT STAT IV Last administered on 07/31/18at 05:13; Start 07/31/18 at 05:30; Stop 07/31/18 at 05:47; Status DC Tiotropium [place] (Spiriva Handihaler) 1 inhalation DAILY@08 INH Last administered on 09/05/18at 08:15; Start 08/27/18 at 08:00 Vancomycin HCl 1000 mg/IV Miscellaneous Supplies 1 each/ Dextrose 270 ml @ 270 mls/hr Q12H IV Last administered on 08/01/18at 20:49; Start 08/01/18 at 21:00; Stop 08/02/18 at 12:40; Status DC Vancomycin HCl 1000 mg/IV Miscellaneous Supplies 1 each/ Dextrose 270 ml @ 270 mls/hr Q24H IV ; Start 08/03/18 at 08:00; Stop 08/03/18 at 08:00; Status DC Vancomycin HCl 1000 mg/IV Miscellaneous Supplies 1 each/ Dextrose 270 ml @ 270 mls/hr Q8H IV Last administered on 08/01/18at 10:11; Start 07/31/18 at 11:00; Stop 08/01/18 at 18:15; Status DC Vasopressin 20 units/Sodium Chloride 500 ml @ 60 mls/hr Q8H20M IV Last administered on 08/08/18at 08:12; Start 08/02/18 at 15:00; Stop 08/12/18 at 14:59; Status DC Vecuronium [place] (Norcuron) 10 mg STAT STAT IV Last administered on 07/31/18at 05:27; Start 07/31/18 at 05:30; Stop 07/31/18 at 05:47; Status DC Allergies Coded Allergies: No Known Drug Allergy (Verified Allergy, Unknown, 11/28/16) Objective Physical Examination Examination GENERAL APPEARANCE: Looks comfortable, chronically ill. SKIN: Warm and dry. HEENT: Normocephalic, atraumatic. [place] palpebral conjunctiva, anicteric sclerae. Lips and mucosa appear moist. NECK: Supple, no thyromegaly. No obvious jugular venous distention. LUNGS: Clear to auscultation bilaterally. No wheezing appreciated. HEART: No chest wall abnormalities. Regular rate and rhythm with no murmurs appreciated. ABDOMEN: Abdomen is slightly around, soft, minimally distended. Mildly tender on deep palpation without any guarding at the right lower quadrant area. EXTREMITIES: Extremities have no deformities. No edema identified. Vital Signs Vital Signs Date Time Temp Pulse Resp B/P (MAP) Pulse Ox O2 Delivery O2 Flow Rate FiO2 09/06/18 11:48 66 135/74 09/06/18 11:31 18 09/06/18 06:00 97.9 95 09/05/18 13:18 Room Air 09/02/18 16:00 2.0 08/31/18 05:32 60 I&Os I&O- Last 24 Hours up to 6 AM 09/06/18 06:00 Intake Total 2680 ml Output Total 1100 ml Balance 1580 ml Laboratory Data Labs 24H Laboratory Tests 2 09/05/18 14:17: Bedside Glucose (Misc Panel) 189H 09/05/18 18:05: Bedside Glucose (Misc Panel) 231H 09/05/18 23:38: Bedside Glucose (Misc Panel) 215H 09/06/18 05:32: Bedside Glucose (Misc Panel) 226H 09/06/18 06:28: Immature Granulocyte % (Auto) 1.0, White Blood Count 11.2H, Red Blood Count 2.92L, Hemoglobin 8.3L, Hematocrit 27.2L, Mean Corpuscular Volume 93.2, Mean Corpuscular Hemoglobin 28.4, Mean Corpuscular Hemoglobin Concent 30.5L, Red Cell Distribution Width 14.8H, Platelet Count 272, Neutrophils (%) (Auto) 67.3H, Lymphocytes (%) (Auto) 12.0L, Monocytes (%) (Auto) 13.4H, Eosinophils (%) (Auto) 5.3H, Basophils (%) (Auto) 1.0, Neutrophils # (Auto) 7.6, Lymphocytes # (Auto) 1.4L, Monocytes # (Auto) 1.5H, Eosinophils # (Auto) 0.6H, Basophils # (Auto) 0.1, Nucleated Red Blood Cells % (auto) 0.0, Blood Urea Nitrogen 31H, Creatinine 1.95H, Sodium Level 137, Potassium Level 3.4L, Chloride Level 107, Carbon Dioxide Level 21, Anion Gap 9, Glomerular Filtration Rate 39.0L, Calcium Level 8.0L, Phosphorus Level 3.0, Albumin 1.7L 09/06/18 12:07: Bedside Glucose (Misc Panel) 267H CBC/BMP Laboratory Tests 09/06/18 06:28 Red Blood Count 2.92 L, Mean Corpuscular Volume 93.2, Mean Corpuscular Hemoglobin 28.4, Mean Corpuscular Hemoglobin Concent 30.5 L, Red Cell Distribution Width 14.8 H, Neutrophils (%) (Auto) 67.3 H, Lymphocytes (%) (Auto) 12.0 L, Monocytes (%) (Auto) 13.4 H, Eosinophils (%) (Auto) 5.3 H, Basophils (%) (Auto) 1.0, Neutrophils # (Auto) 7.6, Lymphocytes # (Auto) 1.4 L, Monocytes # (Auto) 1.5 H, Eosinophils # (Auto) 0.6 H, Basophils # (Auto) 0.1, Anion Gap 9 Impression Acute pancreatitis seems to be resolved Ischemic colitis of the sigmoid colon I again had a long discussion with him regarding his overall status likewise the colonoscopy findings yesterday. This shows that he most likely have had a significant mucosal inflammation and colitis which to me probably started 2 weeks ago he started having profuse diarrhea. That time he was recovering from the pancreatitis and his white count has started to come down. His white count came back up again to about 20,000 on and Monday and this condyle to 11,000 and again. He was most distended towards the end of last week through the weekend and seems to now be less distended. His sigmoid colon is noticeably distended than. He does not seem to be so distended now that he is having multiple loose stools. This is probably more from the release of the segmental ileus. I think he may take time that he would probably eventually recover the sloughed mucosa and I do not think he is at risk of perforation at this time. He is not showing any signs of toxic colitis at this time. Given his medical condition, I recommend continuing with current therapy. If his diarrhea continues with also consider discontinuing antibiotics. I'll start him on some probiotics. Have also encouraged to try to eat despite not having much appetite so he can be off TPN. I'll put him on a low residue diet and see how he does note few days. Plan / VTE VTE Prophylaxis Ordered?: Yes JUAN DAVID VANCE MD Sep 06, 2018 12:54
[2018-09-06 14:00] VITALS: BP 127/85
--- NOTE | 2018-09-06 14:10 | IPN ---
DATE: 09/06/2018 No change in [place]. He had a colonoscopy yesterday. I spoke to Dr. Nolasco afterwards and did not find it particularly revealing. He thinks this has showed changes from ischemic colitis without transmural infarction. He advised that we increase his diet today. He continues to be on total parenteral nutrition (TPN). He is being followed by nephrology who has been doing intermittent dialysis. PHYSICAL EXAMINATION: Afebrile. 135/74. Lungs clear. Heart regular rhythm. Abdomen soft, distended, mildly tender. LABS: White count 11.2, hemoglobin 8.3, potassium 3.4, creatinine 1.95. Blood sugar in the 200 range. PLAN: 1. Continue TPN. The rest of his care is being directed by surgery. 2. Acute severe pancreatitis. Pain is under better control and he is given TPN. 3. Acute on chronic renal failure. Per nephrology, [place] does intermittent hemodialysis. 4. Diabetes. Continue sliding scale of insulin while on TPN. 5. Anemic of chronic disease. Status post transfusion of 5 units. CBC is stable.
[2018-09-06] MEDS ORDERED: SODIUM PHOSPHATE IV SCH ×8 (18:00)
[2018-09-06] MEDS ORDERED: POTASSIUM CHLORIDE IV SCH ×8 (18:00)
[2018-09-06] MEDS ORDERED: [UNRECOGNIZED DRUG - OTHER] IV SCH ×9 (18:00)
[2018-09-06] MEDS ORDERED: SODIUM ACETATE IV SCH ×17 (18:00)
[2018-09-06] MEDS ORDERED: FAT EMULSION IV 20% 500 ML IV SCH (18:00)
[2018-09-06] MEDS ORDERED: SODIUM CHLORIDE IV SCH ×9 (18:00)
[2018-09-06] MEDS ORDERED: [UNRECOGNIZED DRUG - OTHER] IV SCH ×8 (18:00)
[2018-09-06] MEDS: LACTOBACILLUS ACIDOPHILUS CAP (BACID) PO SCH (18:10)
--- NOTE | 2018-09-06 18:37 | IPN ---
DATE: 09/06/2018 Mr. Shipman is seen this morning on his bedside. His significant other is present in the room today. He underwent colonoscopy yesterday and was noticed to have ischemic colitis in the sigmoid area and he has been on intravenous Cipro and Flagyl for that. He also remains on TPN. Initially there was a discussion about possible colon resection and colostomy. However, yesterday Dr. Nolasco felt that he is improving and should continue with antibiotic for a few more days before making a final decision. PHYSICAL EXAMINATION Temperature 98 degrees Fahrenheit, heart rate 68 per minute and respiratory rate 18 per minute. Blood pressure 135/74 mmHg and oxygen saturation 98%. Head is atraumatic. Neck is supple and JVD is mildly elevated. Heart: Sounds regular and lungs with slightly diminished breath sounds at bases. Abdomen is distended and tender and bowel sounds are present. Extremities: Without any cyanosis or clubbing. LABS: Today's labs show WBC count down to 11.2, hemoglobin 8.3 and hematocrit 27.2. Platelets 272. Sodium 137, potassium 3.4, CO2 21, BUN 31 and creatinine 1.95. Glucose 266 and calcium 8.0. PROBLEMS: 1. Acute renal failure, possibly superimposed on chronic kidney disease. The patient has been dialysis dependent. However, his urine output has improved and I am quite optimistic that his kidney function is improved further. At this point we are going to try a trial of diuretic today with Lasix intravenously 40 mg and see how he responds. We do not plan to dialyze him today. 2. Hypokalemia. The patient will be given potassium supplement 10 mEq intravenously and 40 mEq by mouth. Electrolytes will be checked again tomorrow. 3. Congestive heart failure. He does get volume overloaded and short of breath due to positive fluid balance. Will give him Lasix today and see how he responds. If his volume status decompensates then dialysis will be considered tomorrow. 3. Anemia. No significant change and we will continue to treat him with Aranesp once a week. 4. Colitis. The patient remains on Cipro and Flagyl intravenously for ischemic colitis. He is on TPN which is being managed by surgery and hospitalist service. I suggest to increase the potassium in his TPN.
[2018-09-06] MEDS: diphenhydrAMINE 25 MG CAP PO PRN (21:25)
[2018-09-06 22:00] VITALS: BP 135/74
[2018-09-07] MEDS: CIPROFLOXACIN 200 MG in APPROPRIATE DILUENT 1 EA IV SCH ×2 (00:13→12:55)
[2018-09-07] MEDS: HumaLOG INSULIN (NovoLOG) PER UNIT SC SCH ×4 (00:13→20:06)
[2018-09-07] MEDS: ONDANSETRON 4MG/2ML VIAL (J2405) IV PRN ×2 (00:13→08:37)
[2018-09-07] MEDS: HYDROMORPHONE HCL 0.5 MG/ 0.5 ML SYRINGE (J1170 PER 1) IV PRN ×5 (01:28→19:17)
[2018-09-07] MEDS: metroNIDAZOLE 500 MG in APPROPRIATE DILUENT 1 EA IV SCH ×3 (03:27→20:07)
[2018-09-07] MEDS: SODIUM CHLORIDE 0.9% INJ 10 ML SYR IV PRN (05:09)
[2018-09-07 06:00] VITALS: BP 138/67
[2018-09-07 06:04] LABS: BASO # 0.1 10^3/uL (0.0-0.2); EOS # 0.6 10^3/uL (0.0-0.50); EOS % 5.3 % (0.0-3.0); HEMOGLOBIN 9.1 g/dl (13.5-17.5); LYMPH # 1.4 10^3/uL (1.5-4.5); LYMPH % 11.1 % (24.0-44.0); MEAN CORPUSCULAR HEMOGLOBIN 28.5 pg (27.0-33.0); MEAN CORPUSCULAR HGB CONC 30.3 g/dl (32.0-36.5); MONO # 1.5 10^3/uL (0.0-0.8); MONO % 12.4 % (0.0-5.0); NEUTROPHILS # 8.4 10^3/uL (1.8-7.7); NEUTROPHILS % 69.1 % (36.0-66.0); PLATELET COUNT, AUTOMATED 303 10^3/uL (150-450); RED BLOOD COUNT 3.19 10^6/uL (4.30-6.10); WHITE BLOOD COUNT 12.2 10^3/uL (4.0-10.0)
[2018-09-07 06:23] LABS: ALBUMIN 1.9 GM/DL (3.2-5.2); CALCIUM LEVEL 8.2 MG/DL (8.5-10.1); CREATININE FOR GFR 1.9 MG/DL (0.70-1.30); GLOMERULAR FILTRATION RATE 40.1 (>56); POTASSIUM SERUM 3.4 MEQ/L (3.5-5.1)
[2018-09-07] MEDS: ISOSORBIDE DIN. (ISORDIL) 30 MG TAB PO SCH ×3 (07:01→17:00)
[2018-09-07] MEDS: SYMBICORT 160/4.5MCG INHALER 6GM INH SCH ×2 (07:24→20:01)
[2018-09-07] MEDS: TIOTROPIUM INHALER/CAPSULE (SPIRIVA) INH SCH ×2 (07:24→07:26)
[2018-09-07] MEDS: AMIODARONE 200 MG TAB (PACERONE) PO SCH (08:37)
[2018-09-07] MEDS: SODIUM CHLORIDE 0.9% INJ 10 ML SYR IV SCH (08:37)
[2018-09-07] MEDS: PANTOPRAZOLE 40MG INJ (PROTONIX) (C9113) IV SCH (08:37)
[2018-09-07] MEDS: CARVedilol 6.25 MG TAB PO SCH ×2 (08:38→20:08)
[2018-09-07] MEDS: LACTOBACILLUS ACIDOPHILUS CAP (BACID) PO SCH ×2 (08:38→19:16)
[2018-09-07] MEDS: CLOPIDOGREL 75 MG TAB PO SCH (08:38)
[2018-09-07] MEDS: SANTYL OINT 30GM TOP SCH (08:40)
--- NOTE | 2018-09-07 10:48 | IPNPDOC ---
Subjective General Date/Time Seen The patient was seen on 09/07/18 at 10:34. Subject Chief Complaint/History The patient is a 48-year-old male admitted with a reason for visit of Ischemic Colitis. Patient continues to have diarrhea and nonbloody. He reports the abdominal pain and discomfort is minimal at this point. He tells me he's been eating his meals. He denies any nausea or vomiting or increased abdominal pain. Current Medications Current Medications Current Medications Acetaminophen (Tylenol Suspension) 650 mg Q4HP PRN GT PAIN OR FEVER Last administered on 08/11/18at 07:09; Start 08/03/18 at 10:45; Stop 08/11/18 at 09:27; Status DC Acetaminophen (Tylenol Tab) 650 mg Q6HP PRN PO PAIN / FEVER Last administered on 08/21/18at 06:39; Start 08/20/18 at 17:30 Albuterol Sulfate (Proventil Neb) 2.5 mg Q2HP PRN NEB SOB/WHEEZING Last administered on 09/01/18at 03:00; Start 08/27/18 at 06:15 Albuterol Sulfate (Proventil Neb) 2.5 mg RQID NEB Last administered on 08/27/18at 20:46; Start 07/31/18 at 08:00; Stop 08/28/18 at 10:00; Status DC Amino Acids/ Dextrose 2,000 ml @ 70 mls/hr ONCE@1800 IV Last administered on 09/05/18 18:35; Start 09/05/18 at 18:00; Stop 09/06/18 at 17:59; Status DC Amiodarone HCl (Pacerone, Cordarone) 400 mg DAILY PO Last administered on 09/07/18at 08:37; Start 08/14/18 at 09:00 Amiodarone HCl (Pacerone, Cordarone) 400 mg Q12H GT Last administered on 08/13/18at 10:15; Start 08/11/18 at 09:00; Stop 08/13/18 at 15:15; Status DC Amiodarone HCl (Pacerone, Cordarone) 400 mg Q8H GT Last administered on 08/10/18 21:26; Start 08/02/18 at 22:00; Stop 08/10/18 at 21:52; Status DC Amiodarone HCl 360 mg/IV Miscellaneous Supplies 200 ml @ 16.66 mls/ hr Q12H1M IV ; Start 08/02/18 at 20:00; Stop 08/02/18 at 20:00; Status DC Amiodarone HCl 360 mg/IV Miscellaneous Supplies 200 ml @ 33.33 mls/ hr Q6H1M IV Last administered on 08/02/18at 13:30; Start 08/02/18 at 14:00; Stop 08/02/18 at 20:00; Status DC Aspirin (Aspirin Chewable) 81 mg BID NG Last administered on 08/13/18at 10:14; Start 07/31/18 at 09:00; Stop 08/13/18 at 15:15; Status DC Aspirin (Ecotrin) 81 mg BID PO ; Start 07/31/18 at 09:00; Stop 07/31/18 at 12:11; Status DC Aspirin (Ecotrin) 81 mg DAILY PO Last administered on 08/26/18at 08:51; Start 08/14/18 at 09:00; Stop 08/27/18 at 06:28; Status DC Bisoprolol Fumarate (Zebeta) 2.5 mg Q12H GT Last administered on 08/10/18at 09:18; Start 08/02/18 at 21:00; Stop 08/10/18 at 11:23; Status DC Budesonide/ Formoterol Fumarate (Symbicort 160/ 4.5mcg) 2 puff BID INH Last administered on 09/07/18at 07:24; Start 08/27/18 at 09:00 Calcium Gluconate 1000 mg/Dextrose 110 ml @ 110 mls/hr ASDIRECTED IV ; Start 08/03/18 at 16:00; Status UNV Calcium Gluconate 1000 mg/Dextrose 110 ml @ 110 mls/hr Q1H IV Last ad ministered on 08/03/18at 17:18; Start 08/03/18 at 16:30; Stop 08/03/18 at 18:29; Status DC Calcium Gluconate 1000 mg/Dextrose 110 ml @ 110 mls/hr Q1H IV Last administered on 08/04/18at 10:15; Start 08/04/18 at 09:00; Stop 08/04/18 at 10:59; Status DC Calcium Gluconate 1000 mg/Dextrose 110 ml @ 110 mls/hr Q1H IV Last administered on 08/04/18at 16:00; Start 08/04/18 at 15:00; Stop 08/04/18 at 16:59; Status DC Calcium Gluconate 1000 mg/Dextrose 110 ml @ 110 mls/hr Q1H IV Last adminis tered on 08/05/18at 16:12; Start 08/05/18 at 15:00; Stop 08/05/18 at 16:59; Status DC Calcium Gluconate 1000 mg/Sodium Chloride 110 ml @ 110 mls/hr ASDIRECTED IV ; Start 08/04/18 at 21:30; Stop 08/04/18 at 22:23; Status DC Calcium Gluconate 1000 mg/Sodium Chloride 110 ml @ 110 mls/hr Q1H IV Last administered on 08/05/18at 00:39; Start 08/04/18 at 22:30; Stop 08/05/18 at 01:29; Status DC Calcium Gluconate 1000 mg/Sodium Chloride 110 ml @ 110 mls/hr Q1H IV Last administered on 08/05/18at 04:43; Start 08/05/18 at 03:00; Stop 08/05/18 at 04:59; Status DC Calcium Gluconate 1000 mg/Sodium Chloride 110 ml @ 110 mls/hr Q1H IV Last administered on 08/05/18at 10:15; Start 08/05/18 at 09:00; Stop 08/05/18 at 10:59; Status DC Carvedilol (COReg) 6.25 mg BID PO Last administered on 09/07/18at 08:38; Start 08/16/18 at 21:00 Carvedilol (COReg) 6.25 mg BID PO Last administered on 08/16/18at 08:02; Start 08/13/18 at 21:00; Stop 08/16/18 at 21:07; Status DC Carvedilol (COReg) 6.25 mg Q6H NG Last administered on 07/31/18at 18:13; Start 07/31/18 at 12:00; Stop 08/02/18 at 16:05; Status DC Chlorhexidine Gluconate (Peridex Oral Rinse) SWAB/BRUSH ORAL CAVITY BID MT Last administered on 08/12/18at 08:49; Start 07/31/18 at 09:00; Stop 08/12/18 at 19:14; Status DC Ciprofloxacin 200 mg/IV Miscellaneous Supplies 100 ml @ 100 mls/hr Q12H IV Last administered on 09/07/18at 00:13; Start 08/29/18 at 12:00 Clopidogrel Bisulfate (PLAVix) 75 mg DAILY PO Last administered on 09/07/18at 08 :38; Start 07/31/18 at 09:00 Collagenase (Santyl) to buttocks and drake... DAILY TOP Last administered on 09/07/18at 08:40; Start 09/05/18 at 09:00 Darbepoetin Jay (Aranesp (Dialysis Use)) 200 mcg HD IV ; Start 08/18/18 at 11:15 Dextrose (Dextrose 50%) 25 ml ASDIRECTED PRN IV SEE LABEL COMMENTS Last administered on 08/11/18at 01:22; Start 08/02/18 at 02:00 Dextrose/Sodium Chloride 1,000 ml @ 40 mls/hr Q24H IV Last administered on 09/03/18at 20:26; Start 09/03/18 at 20:15; Stop 09/04/18 at 05:00; Status DC Diatrizoate Meglum/ Diatrizoate Sod (Gastrografin) 10 ml Q30M PO Last administered on 08/23/18at 08:21; Start 08/23/18 at 07:30; Stop 08/23/18 at 08:01; Status DC Diatrizoate Meglum/ Diatrizoate Sod (Gastrografin) 10 ml Q30M PO Last administered on 08/10/18at 13:51; Start 08/10/18 at 12:00; Stop 08/10/18 at 13:05; Status DC Digoxin (Lanoxin) 0.25 mg Q6H IV Last administered on 08/02/18at 09:50; Start 08/01/18 at 21:00; Stop 08/02/18 at 15:01; Status DC Diphenhydramine HCl (Benadryl) 25 mg Q6HP PRN PO ITCHING Last administered on 09/06/18at 21:25; Start 08/18/18 at 18:00 Etomidate (Amidate) 20 mg STAT STAT IV Last administered on 07/31/18at 05:13; Start 12/25/18 at 05:30; Stop 07/31/18 at 05:47; Status DC Fat Emulsion Intravenous 500 ml @ 20 mls/hr ONCE@1800 IV Last administered on 08/17/18at 18:39; Start 08/17/18 at 18:00; Stop 08/18/18 at 17:59; Status DC Fat Emulsion Intravenous 500 ml @ 20 mls/hr ONCE@1800 IV Last administered on 08/18/18at 17:23; Start 08/18/18 at 18:00; Stop 08/19/18 at 12:16; Status DC Fat Emulsion Intravenous 500 ml @ 20 mls/hr ONCE@1800 IV Last administered on 08/24/18at 18:29; Start 08/24/18 at 18:00; Stop 08/25/18 at 17:59; Status DC Fat Emulsion Intravenous 500 ml @ 20 mls/hr ONCE@1800 IV Last administered on 08/25/18at 18:37; Start 08/25/18 at 18:00; Stop 08/26/18 at 17:59; Status DC Fat Emulsion Intravenous 500 ml @ 20 mls/hr ONCE@1800 IV Last administered on 08/26/18at 18:05; Start 08/26/18 at 18:00; Stop 08/27/18 at 17:59; Status DC Fat Emulsion Intravenous 500 ml @ 20 mls/hr ONCE@1800 IV Last administered on 08/27/18at 17:54; Start 08/27/18 at 18:00; Stop 08/28/18 at 17:59; Status DC Fat Emulsion Intravenous 500 ml @ 20 mls/hr ONCE@1800 IV Last administered on 08/28/18at 17:18; Start 08/28/18 at 18:00; Stop 08/29/18 at 17:59; Status DC Fat Emulsion Intravenous 500 ml @ 20 mls/hr ONCE@1800 IV Last administered on 08/29/18at 17:46; Start 08/29/18 at 18:00; Stop 08/30/18 at 17:59; Status DC Fat Emulsion Intravenous 500 ml @ 20 mls/hr ONCE@1800 IV Last administered on 08/30/18at 18:01; Start 08/30/18 at 18:00; Stop 08/31/18 at 17:59; Status DC Fat Emulsion Intravenous 500 ml @ 20 mls/hr ONCE@1800 IV Last administered on 08/31/18at 19:16; Start 08/31/18 at 18:00; Stop 09/01/18 at 17:59; Status DC Fat Emulsion Intravenous 500 ml @ 20 mls/hr ONCE@1800 IV Last administered on 09/01/18at 18:51; Start 09/01/18 at 18:00; Stop 09/02/18 at 17:59; Status DC Fat Emulsion Intravenous 500 ml @ 20 mls/hr ONCE@1800 IV Last administered on 09/02/18at 18:21; Start 09/02/18 at 18:00; Stop 09/03/18 at 17:59; Status DC Fat Emulsion Intravenous 500 ml @ 20 mls/hr ONCE@1800 IV Last administered on 09/04/18at 18:45; Start 09/04/18 at 18:00; Stop 09/05/18 at 17:59; Status DC Fat Emulsion Intravenous 500 ml @ 20 mls/hr ONCE@1800 IV Last administered on 09/05/18at 18:34; Start 09/05/18 at 18:00; Stop 09/06/18 at 17:59; Status DC Fat Emulsion Intravenous 500 ml @ 20 mls/hr ONCE@1800 IV Last administered on 09/06/18at 18:11; Start 09/06/18 at 18:00; Stop 09/07/18 at 17:59 Fat Emulsion Intravenous 500 ml @ 20 mls/hr ONCE@1800 IV Last administered on 08/12/18at 18:01; Start 08/12/18 at 18:00; Stop 08/13/18 at 17:59; Status DC Fat Emulsion Intravenous 500 ml @ 20 mls/hr ONCE@1800 IV Last administered on 08/13/18at 17:50; Start 08/13/18 at 18:00; Stop 08/14/18 at 17:59; Status DC Fentanyl Citrate (Sublimaze) 25 mcg Q1HP PRN IV Pain Last administered on 08/09/18 16:51; Start 08/02/18 at 12:15; Stop 08/12/18 at 09:12; Status DC Fluconazole 100 mg/IV Miscellaneous Supplies 50 ml @ 50 mls/hr Q24H IV Last administered on 08/13/18at 15:22; Start 08/08/18 at 16:00; Stop 08/13/18 at 22:06; Status DC Furosemide (LASIX injection) 100 mg STAT STAT IV Last administered on 07/31/18at 05:05; Start 07/31/18 at 05:38; Stop 07/31/18 at 05:41; Status DC Glucagon (Glucagon) 1 mg ASDIRECTED PRN SC SEE LABEL COMMENTS; Start 08/02/18 at 02:00 Glucose (Glucose) 16 GM ASDIRECTED PRN PO SEE LABEL COMMENTS; Start 08/02/18 at 02:00 Heparin Sodium (Heparin Lock Flush 10units/ml) 10 units ASDIRECTED PRN IV SEE LABEL COMMENTS Last administered on 08/18/18at 19:49; Start 08/03/18 at 10:30; Stop 08/20/18 at 14:11; Status DC Heparin Sodium (Heparin Lock Flush 10units/ml) 10 units HLF IV Last adminis tered on 08/20/18at 05:24; Start 08/03/18 at 14:00; Stop 08/20/18 at 14:11; Status DC Heparin Sodium (Heparin Lock Flush 10units/ml) 30 units ASDIRECTED PRN IV SEE LABEL COMMENTS Last administered on 09/07/18at 05:09; Start 08/30/18 at 02:15 Heparin Sodium (Heparin Lock Flush 10units/ml) 30 units DAILY IV Last administered on 09/07/18at 08:37; Start 08/30/18 at 09:00 Heparin Sodium (Heparin) ASDIRECTED PRN IV SEE LABEL COMMENTS; Start 08/03/18 at 12:30; Stop 08/07/18 at 10:09; Status DC Heparin Sodium (Heparin) ASDIRECTED PRN IV SEE LABEL COMMENTS Last administered on 08/14/18at 02:20; Start 08/05/18 at 04:00; Stop 09/06/18 at 10:44; Status DC Heparin Sodium (Porcine) (Heparin) ASDIRECTED PRN IV SEE LABEL COMMENTS; Start 07/31/18 at 12:30; Stop 07/31/18 at 12:37; Status DC Heparin Sodium (Porcine) (Heparin) ASDIRECTED PRN IV SEE LABEL COMMENTS Last administered on 07/31/18at 21:31; Start 07/31/18 at 12:45; Stop 08/03/18 at 21:46; Status DC Heparin Sodium (Porcine) (Heparin) 5,000 units Q12H SQ Last administered on 08/13/18at 15:22; Start 08/13/18 at 09:00; Stop 08/13/18 at 17:55; Status DC Heparin Sodium (Porcine) (Heparin) 5,000 units Q8H SC ; Start 07/31/18 at 06:00; Stop 07/31/18 at 12:11; Status DC Heparin Sodium (Porcine) 45990 units/IV Miscellaneous Supplies 250 ml @ 0 mls/hr Q0M IV ; Start 07/31/18 at 12:18; Status UNV Heparin Sodium (Porcine) 33681 units/IV Miscellaneous Supplies 250 ml @ 0 mls/hr Q0M IV ; Start 07/31/18 at 12:38; Stop 07/31/18 at 12:43; Status DC Heparin Sodium (Porcine) 61422 units/IV Miscellaneous Supplies 250 ml @ 0 mls/hr Q0M IV Last administered on 08/02/18at 09:40; Start 07/31/18 at 12:41; Stop 08/03/18 at 21:34; Status DC Home Med (Med Rec Complete!) ASDIRECTED XX ; Start 07/31/18 at 07:30; Stop 07/31/18 at 07:30; Status DC Hydralazine HCl (Apresoline) 10 mg QID PO Last administered on 08/21/18at 09:04; Start 08/16/18 at 21:00; Stop 08/21/18 at 10:17; Status DC Hydralazine HCl (Apresoline) 10 mg QID PO Last administered on 08/16/18at 17:47; Start 08/13/18 at 17:00; Stop 08/16/18 at 21:07; Status DC Hydralazine HCl (Apresoline) 10 mg TID PO Last administered on 08/21/18at 17:20; Start 08/21/18 at 16:00; Stop 08/21/18 at 18:01; Status DC Hydralazine HCl (Apresoline) 20 mg STAT STAT IV Last administered on 07/31/18at 05:09; Start 07/31/18 at 05:15; Stop 07/31/18 at 05:41; Status DC Hydromorphone HCl (Dilaudid) 0.2 mg Q3HP PRN IV MILD PAIN (PS 1-4); Start 08/21/18 at 12:45; Stop 08/22/18 at 10:37; Status DC Hydromorphone HCl (Dilaudid) 0.2 mg Q3HP PRN IV MILD PAIN (PS 1-4); Start 08/22/18 at 10:45; Stop 08/23/18 at 08:57; Status DC Hydromorphone HCl (Dilaudid) 0.3 mg Q3HP PRN IV MILD PAIN (PS 1-4) Last administered on 09/07/18at 08:39; Start 08/23/18 at 09:00 Hydromorphone HCl (Dilaudid) 0.4 mg Q3HP PRN IV MODERATE PAIN (PS 5-7) Last administered on 08/22/18at 09:20; Start 08/21/18 at 12:45; Stop 08/22/18 at 10:37; Status DC Hydromorphone HCl (Dilaudid) 0.4 mg Q3HP PRN IV MODERATE PAIN (PS 5-7) Last administered on 08/23/18at 08:30; Start 08/22/18 at 10:45; Stop 08/23/18 at 08: 57; Status DC Hydromorphone HCl (Dilaudid) 0.6 mg Q3HP PRN IV MODERATE PAIN (PS 5-7) Last administered on 08/31/18at 05:32; Start 08/23/18 at 09:00; Stop 08/31/18 at 07:12; Status DC Hydromorphone HCl (Dilaudid) 0.9 mg Q3HP PRN IV SEVERE PAIN (PS 8-10) Last administered on 09/07/18at 05:09; Start 08/31/18 at 07:15 Insulin Detemir (Levemir Insulin) 10 units QHS SC Last administered on 08/16/18at 21:39; Start 08/14/18 at 21:00; Stop 08/17/18 at 08:27; Status DC Insulin Detemir (Levemir Insulin) 25 units QAM SC Last administered on 08/25/18at 09:04; Start 08/20/18 at 09:00; Stop 08/25/18 at 09:24; Status DC Insulin Detemir (Levemir Insulin) 25 units QAM SC Last administered on 08/18/18at 10:57; Start 08/15/18 at 09:00; Stop 08/19/18 at 07:53; Status DC Insulin Detemir (Levemir Insulin) 25 units QHS SC Last administered on 08/13/18at 18:21; Start 08/13/18 at 18:15; Stop 08/14/18 at 08:08; Status DC Insulin Detemir (Levemir Insulin) 35 units QAM SC Last administered on 08/19/18at 08:51; Start 08/19/18 at 09:00; Stop 08/20/18 at 07:35; Status DC Insulin Human Lispro (HumaLOG INSULIN) SEE PROTOCOL TABLE AC SC Last administered on 08/24/18at 12:51; Start 08/15/18 at 07:30; Stop 08/24/18 at 20:12; Status DC Insulin Human Lispro (HumaLOG INSULIN) SEE PROTOCOL TABLE AC SC ; Start 08/15/18 at 07:30; Stop 08/15/18 at 07:30; Status DC Insulin Human Lispro (HumaLOG INSULIN) SEE PROTOCOL TABLE Q6H SC Last administered on 09/07/18at 07:02; Start 08/25/18 at 00:00 Insulin Human Lispro (HumaLOG INSULIN) SEE PROTOCOL TABLE Q6H SC Last administered on 08/10/18at 11:37; Start 08/08/18 at 12:00; Stop 08/10/18 at 16:59; Status DC Insulin Human Lispro (HumaLOG INSULIN) SEE PROTOCOL TABLE Q6H SC Last administered on 08/08/18at 05:58; Start 08/02/18 at 12:00; Stop 08/08/18 at 07:35; Status DC Insulin Human Lispro (HumaLOG INSULIN) SEE PROTOCOL TABLE QHS SC Last administered on 08/14/18at 20:59; Start 08/14/18 at 21:00; Stop 08/24/18 at 20:12; Status DC Insulin Human Lispro (HumaLOG INSULIN) See Protocol Table Q6H SC Last administered on 08/18/18at 06:12; Start 08/17/18 at 18:00; Stop 08/18/18 at 12:01; Status DC Insulin Human Lispro (HumaLOG INSULIN) See Protocol Table Q6H SC Last administe red on 08/19/18at 12:48; Start 08/18/18 at 18:00; Stop 08/19/18 at 12:01; Status DC Insulin Human Lispro (HumaLOG INSULIN) See Protocol Table Q6H SC ; Start 08/25/18 at 18:00; Stop 08/25/18 at 23:46; Status DC Insulin Human Lispro (HumaLOG INSULIN) See Protocol Table Q6H SC ; Start 09/02/18 at 18:00; Stop 09/03/18 at 12:01; Status Cancel Insulin Human Lispro (HumaLOG INSULIN) See Protocol Table Q6H SC Last administered on 08/13/18at 12:09; Start 08/12/18 at 18:00; Stop 08/13/18 at 12:01; Status DC Insulin Human Lispro (HumaLOG INSULIN) See Protocol Table Q6H SC Last administered on 08/14/18at 13:03; Start 08/13/18 at 18:00; Stop 08/14/18 at 12:01; Status DC Insulin Human Regular 100 units/ Sodium Chloride 100 ml @ 4.5 mls/hr [id number] IV Last administered on 08/12/18at 11:49; Start 08/10/18 at 12:00; Stop 08/12/18 at 14:57; Status DC Insulin Human Regular 100 units/ Sodium Chloride 100 ml @ 3 mls/hr Q24H IV ; Start 07/31/18 at 07:00; Stop 07/31/18 at 11:42; Status DC Insulin Human Regular 100 units/ Sodium Chloride 100 ml @ 5 mls/hr Q20H IV Last administered on 07/31/18at 06:44; Start 07/31/18 at 06:45; Stop 07/31/18 at 09:36; Status DC Insulin Human Regular 100 units/ Sodium Chloride 100 ml @ 8 mls/hr [id number] IV Last administered on 08/02/18at 04:13; Start 07/31/18 at 07:00; Stop 08/02/18 at 10:05; Status DC Isosorbide Dinitrate (Isordil) 10 mg TID@07,12,17 PO Last administered on 08/21/18at 06:39; Start 08/13/18 at 17:00; Stop 08/21/18 at 10:17; Status DC Isosorbide Dinitrate (Isordil) 20 mg TID@07,12,17 PO Last administered on 08/25/18at 06:14; Start 08/21/18 at 12:00; Stop 08/25/18 at 07:41; Status DC Isosorbide Dinitrate (Isordil) 30 mg TID@07,12,17 PO Last administered on 09/07/18at 07:01; Start 08/25/18 at 12:00 Lactobacillus Acidophilus (Bacid) 1 ea WM PO Last administered on 08/29/18at 08:38; Start 08/21/18 at 12:30; Stop 08/29/18 at 14:27; Status DC Lactobacillus Acidophilus (Bacid) 2 ea DAILY@0800,1800 PO Last administered on 09/07/18at 08:38; Start 09/06/18 at 18:00 Levetiracetam 500 mg/Dextrose 105 ml @ 420 mls/hr Q12H IV Last administered on 08/12/18at 08:49; Start 08/05/18 at 09:00; Stop 08/12/18 at 09:12; Status DC Loperamide HCl (Imodium) 2 mg ASDIRECTED PRN PO DIARRHEA Last administered on 08/23/18at 12:00; Start 08/22/18 at 15:45; Stop 08/29/18 at 09:29; Status DC Methylprednisolone (SOLU medrol) 40 mg Q8H IV ; Start 08/27/18 at 06:00; Stop 08/27/18 at 06:45; Status DC Methylprednisolone (SOLUmedrol) 40 mg Q12H IV Last administered on 08/27/18at 08:36; Start 08/27/18 at 06:00; Stop 08/27/18 at 09:30; Status DC Metoclopramide HCl (REGLAN INJection) 5 mg Q8H IV Last administered on 08/11/18at 02:13; Start 08/06/18 at 02:00; Stop 08/11/18 at 09:27; Status DC Metoclopramide HCl (REGLAN INJection) 10 mg Q6H IV Last administered on 08/05/18at 17:52; Start 08/05/18 at 18:00; Stop 08/05/18 at 20:41; Status DC Metronidazole 500 mg/IV Miscellaneous Supplies 100 ml @ 100 mls/hr Q8H IV Last administered on 09/07/18at 03:27; Start 08/29/18 at 11:00 Midazolam HCl (Versed) 2 mg Q15MP PRN IV AGITATION Last administered on at 18:33; Start 08/05/18 at 04:45; Stop 08/12/18 at 09:12; Status DC Midazolam HCl (Versed) 2 mg Q1HP PRN IV AGITATION Last administered on 08/05/18at 04:07; Start 08/02/18 at 21:00; Stop 08/05/18 at 04:43; Status DC Miscellaneous (Unresolved Clarification Entry) SEE LABEL COMMENTS DAILY XX ; Start 08/08/18 at 09:00; Stop 08/08/18 at 15:02; Status DC Miscellaneous (Unresolved Clarification Entry) SEE LABEL COMMENTS DAILY XX ; Start 08/29/18 at 09:00; Stop 08/29/18 at 14:28; Status DC Miscellaneous (Unresolved Clarification Entry) SEE LABEL COMMENTS DAILY XX ; Start 08/14/18 at 09:00; Stop 08/14/18 at 18:25; Status DC Morphine Sulfate (Morphine Sulfate Inj) 2 mg Q4HP PRN IV PAIN Last administered on 08/17/18at 08:53; Start 08/17/18 at 08:45; Stop 08/17/18 at 11:21; Status DC Morphine Sulfate (Morphine Sulfate Inj) 4 mg Q3HP PRN IV PAIN Last administered on 08/20/18at 06:17; Start 08/17/18 at 11:30; Stop 08/20/18 at 10:05; Status DC Nitroglycerin (Nitrostat (1/ 150)) 0.4 mg Q5MP PRN SL CHEST PAIN Last administered on 08/31/18at 22:41; Start 08/27/18 at 05:45 Nitroglycerin 25 mg/IV Miscellaneous Supplies 250 ml @ 3 mls/hr Q24H IV Last administered on 07/31/18at 05:01; Start 07/31/18 at 05:00; Stop 07/31/18 at 09:41; Status DC Non-Formulary Medication ( See Comment Field Below ) [facility]. DOSING ASDIRECTED XX ; Start 08/11/18 at 06:45; Stop 08/14/18 at 03:08; Status DC Non-Formulary Medication (Heparin Iv Rate Change Documentation ml/ Hr) ASDIRECTED XX ; Start 07/31/18 at 12:30; Stop 07/31/18 at 12:37; Status DC Non-Formulary Medication (Heparin Iv Rate Change Documentation ml/ Hr) ASDIRECTED XX Last administered on 08/02/18at 08:04; Start 07/31/18 at 12:45; Stop 08/03/18 at 21:34; Status DC Non-Formulary Medication (Insulin Iv Rate Change Documentation ml/ Hr) ASDIRECTED XX Last administered on 08/12/18at 02:52; Start 08/10/18 at 11:30; Stop 08/12/18 at 19:45; Status DC Non-Formulary Medication (Insulin Iv Rate Change Documentation ml/ Hr) ASDIRECTED XX ; Start 07/31/18 at 06:45; Stop 07/31/18 at 09:36; Status DC Non-Formulary Medication (Insulin Iv Rate Change Documentation ml/ Hr) ASDIRECTED XX ; Start 07/31/18 at 07:00; Stop 07/31/18 at 11:42; Status DC Non-Formulary Medication (Insulin Iv Rate Change Documentation ml/ Hr) ASDIRECTED XX Last administered on 08/02/18at 08:27; Start 07/31/18 at 11:45; Stop 08/02/18 at 10:05; Status DC Norepinephrine Bitartrate 16 mg/ Dextrose 500 ml @ 18.8 mls/hr Q24H IV Last administered on 08/10/18at 11:58; Start 08/05/18 at 00:00; Stop 08/12/18 at 14:59; Status DC Norepinephrine Bitartrate 8 mg/ Dextrose 500 ml @ 37.5 mls/hr [id number] IV Last administered on 07/31/18at 08:00; Start 07/31/18 at 07:51; Stop 07/31/18 at 19:59; Status DC Norepinephrine Bitartrate 8 mg/ Dextrose 500 ml @ 67.5 mls/hr Q7H25M IV Last administered on 08/04/18at 19:42; Start 07/31/18 at 20:00; Stop 08/04/18 at 21:04; Status DC Ondansetron HCl (ZOFRAN INJection) 4 mg Q6HP PRN IV NAUSEA OR VOMITING Last administered on 09/07/18 08:37; Start 08/16/18 at 13:30 Oxycodone/ Acetaminophen (Percocet 5mg/ 325mg Tablet) 1 tab Q4HP PRN PO MILD/MODERATE PAIN (PS 1-7) Last administered on 08/20/18 10:01; Start 08/18/18 at 09:45; Stop 08/20/18 at 10:05; Status DC Oxycodone/ Acetaminophen (Percocet 5mg/ 325mg Tablet) 2 tab Q6HP PRN PO SEVERE PAIN (PS 8-10) Last administered on 08/19/18 21:01; Start 08/18/18 at 09:45; Stop 08/20/18 at 10:05; Status DC Pancrelipase (Creon-24) 1 ea WM PO Last administered on 08/21/18 17:23; Start 08/21/18 at 18:00; Stop 08/22/18 at 07:31; Status DC Pancrelipase (Creon-24) 2 ea WM PO Last administered on 08/29/18 08:39; Start 08/22/18 at 08:00; Stop 08/29/18 at 14:27; Status DC Pantoprazole Sodium (Protonix) 40 mg BID IV Last administered on 08/19/18 21:00; Start 08/15/18 at 09:00; Stop 08/20/18 at 08:59; Status DC Pantoprazole Sodium (Protonix) 40 mg DAILY IV Last administered on 09/07/18 08:37; Start 09/01/18 at 09:00 Pantoprazole Sodium (Protonix) 40 mg DAILY IV Last administered on 08/14/18 09:18; Start 07/31/18 at 09:00; Stop 08/15/18 at 08:52; Status DC Piperacillin Sod/ Tazobactam Sod 3.375 gm/Dextrose 50 ml @ 50 mls/hr Q6H IV Last administered on 08/14/18 18:09; Start 08/02/18 at 13:00; Stop 08/14/18 at 18:25; Status DC Piperacillin Sod/ Tazobactam Sod 4.5 gm/Dextrose 50 ml @ 50 mls/hr Q6H IV Last administered on 08/02/18at 05:26; Start 07/31/18 at 12:00; Stop 08/02/18 at 13:59; Status DC Propofol 1000 mg/ IV Miscellaneous Supplies 100 ml @ 5.25 mls/hr Q19H3M IV Last administered on 07/31/18at 16:56; Start 07/31/18 at 07:51; Stop 07/31/18 at 17:25; Status DC Propofol 1000 mg/ IV Miscellaneous Supplies 100 ml @ 5.25 mls/hr Q19H3M IV Last administered on 08/02/18at 16:59; Start 07/31/18 at 17:24; Stop 08/06/18 at 09:32; Status DC Propofol 1000 mg/ IV Miscellaneous Supplies 100 ml @ 17.33 mls/ hr [id number] IV Last administered on 07/31/18at 05:17; Start 07/31/18 at 05:45; Stop 07/31/18 at 08:07; Status DC Rosuvastatin Calcium (Crestor) 20 mg DAILY PO Last administered on 08/03/18at 09:16; Start 07/31/18 at 09:00; Stop 08/03/18 at 21:47; Status DC Sacubitril/ Valsartan (Entresto 24-26 Mg) 2 tab BID PO Last administered on 07/31/18at 20:08; Start 07/31/18 at 21:00; Stop 08/01/18 at 16:02; Status DC Sodium Bicarbonate 150 meq/Dextrose/Water 1,150 ml @ 100 mls/hr [id number] IV Last administered on 08/03/18at 10:51; Start 08/02/18 at 21:00; Stop 08/03/18 at 18:53; Status DC Sodium Acetate 40 meq/Sodium Phosphate 8 mmol/ Potassium Chloride 40 meq/ Potassium Phosphate 20 mmol/ Magnesium Sulfate 4.8 meq/Calcium Gluconate 2380 mg/ Insulin Human Regular 36 units/ Amino Acids/ Dextrose 2,074.6934 ml @ 70 mls/hr ONCE@1800 IV Last administered on 09/06/18at 18:11; Start 09/06/18 at 18:00; Stop 09/07/18 at 17:59 Sodium Bicarbonate (Sodium Bicarbonate) 50 meq STAT STAT IV Last administered on 07/31/18at 08:00; Start 07/31/18 at 09:02; Stop 07/31/18 at 09:04; Status DC Sodium Bicarbonate (Sodium Bicarbonate) 325 mg QID PO Last administered on 09/01/18at 17:26; Start 09/01/18 at 09:00; Stop 09/01/18 at 18:20; Status DC Sodium Chloride 1,000 ml @ 3 mls/hr Q24H IV Last administered on 08/15/18at 21:11; Start 08/12/18 at 23:00; Stop 08/16/18 at 17:07; Status DC Sodium Chloride 1,000 ml @ 3 mls/hr Q24H IV Last administered on 08/14/18at 00:20; Start 08/12/18 at 23:00; Stop 08/15/18 at 22:31; Status DC Sodium Chloride (Saline Lock Flush) 2 ml ASDIRECTED PRN IV SEE LABEL COMMENTS; Start 08/20/18 at 14:15; Status Cancel Sodium Chloride (Saline Lock Flush) 2 ml ASDIRECTED PRN IV SEE LABEL COMMENTS; Start 08/03/18 at 10:30; Stop 08/05/18 at 21:38; Status DC Sodium Chloride (Saline Lock Flush) 2 ml SLF IV Last administered on 09/02/18at 14:00; Start 08/20/18 at 22:00; Stop 09/03/18 at 03:57; Status DC Sodium Chloride (Saline Lock Flush) 2 ml SLF IV Last administered on 08/04/18at 06:27; Start 08/03/18 at 14:00; Stop 08/05/18 at 21:38; Status DC Sodium Chloride (Saline [place] Flush) 10 ml ASDIRECTED PRN IV SEE LABEL COMMENTS Last administered on 09/07/18at 05:09; Start 08/30/18 at 02:15 Sodium Chloride (Saline [place] Flush) 10 ml ASDIRECTED PRN IV SEE LABEL COMMENTS Last administered on 08/18/18at 19:49; Start 08/03/18 at 10:30; Stop 08/20/18 at 14:11; Status DC Sodium Chloride (Saline [place] Flush) 10 ml DAILY IV Last administered on 09/07/18at 08:37; Start 08/30/18 at 09:00 Sodium Chloride (Saline [place] Flush) 10 ml SLF IV Last administered on 08/20/18at 05:24; Start 08/03/18 at 14:00; Stop 08/20/18 at 14:11; Status DC Sodium Chloride (Saline [place] Flush) 10ML IN EACH SAILAJA... ASDIRECTED PRN IV SEE LABEL COMMENTS; Start 08/09/18 at 10:15; Status Cancel Sodium Chloride (Saline [place] Flush) 10ML IN EACH SAILAJA... ASDIRECTED PRN IV SEE LABEL COMMENTS; Start 08/03/18 at 12:30; Status Cancel Sodium Chloride (Saline [place] Flush) 10ML IN EACH SAILAJA... ASDIRECTED PRN IV SEE LABEL COMMENTS; Start 08/05/18 at 04:00; Status Cancel Sodium Chloride 200 meq/Sodium Acetate 40 meq/ Potassium Chloride 20 meq/ Calcium Gluconate 2381 mg/Insulin Human Regular 12 units/Amino Acids/ Dextrose 2,103.93 ml @ 70 mls/hr ONCE@1800 IV Last administered on 08/12/18at 18:00; Start 08/12/18 at 18:00; Stop 08/13/18 at 17:59; Status DC Sodium Chloride 200 meq/Sodium Acetate 40 meq/ Potassium Chloride 40 meq/ Potassium Phosphate 20 mmol/ Magnesium Sulfate 4.7 meq/Calcium Gluconate 2381 mg/ Multivitamins 10 ml/Chromium/ Copper/Manganese/ Seleni/Zn 1 ml/ Insulin Caitie n Regular 35.7 units/Amino Acids/ Dextrose 2,133.0087 ml @ 70 mls/hr ONCE@1800 IV Last administered on 08/17/18at 18:38; Start 08/17/18 at 18:00; Stop 08/18/18 at 17:59; Status DC Sodium Chloride 200 meq/Sodium Acetate 40 meq/ Potassium Chloride 40 meq/ Potassium Phosphate 20 mmol/ Magnesium Sulfate 4.7 meq/Calcium Gluconate 2381 mg/ Multivitamins 10 ml/Chromium/ Copper/Manganese/ Seleni/Zn 1 ml/ Insulin Human Regular 35.7 units/Amino Acids/ Dextrose 2,133.0087 ml @ 70 mls/hr ONCE@1800 IV Last administered on 08/13/18at 17:50; Start 08/13/18 at 18:00; Stop 08/14/18 at 17:59; Status DC Sodium Chloride 200 meq/Sodium Acetate 40 meq/ Potassium Chloride 40 meq/ Potassium Phosphate 20 mmol/ Magnesium Sulfate 4.76 meq/Calcium Gluconate 2381 mg/ Insulin Human Regular 35.7 units/Amino Acids/ Dextrose 2,122.0237 ml @ 70 mls/hr ONCE@1800 IV Last administered on 08/25/18at 18:37; Start 08/25/18 at 1 8:00; Stop 08/26/18 at 17:59; Status DC Sodium Chloride 200 meq/Sodium Acetate 40 meq/ Potassium Chloride 40 meq/ Potassium Phosphate 20 mmol/ Magnesium Sulfate 4.76 meq/Calcium Gluconate 2381 mg/ Multivitamins 10 ml/Chromium/ Copper/Manganese/ Seleni/Zn 1 ml/ Insulin Human Regular 35.7 units/Amino Acids/ Dextrose 2,133.0237 ml @ 70 mls/hr ONCE@1800 IV Last administered on 08/27/18at 17:54; Start 08/27/18 at 18:00; Stop 08/28/18 at 17:59; Status DC Sodium Chloride 200 meq/Sodium Acetate 40 meq/ Potassium Chloride 40 meq/ Potassium Phosphate 20 mmol/ Magnesium Sulfate 4.76 meq/Calcium Gluconate 2381 mg/ Multivitamins 10 ml/Chromium/ Copper/Manganese/ Seleni/Zn 1 ml/ Insulin Human Regular 35.7 units/Amino Acids/ Dextrose 2,133.0237 ml @ 70 mls/hr ONCE@1800 IV Last administered on 08/29/18at 17:50; Start 08/29/18 at 18:00; Stop 08/30/18 at 17:59; Status DC Sodium Chloride 200 meq/Sodium Acetate 40 meq/ Potassium Chloride 40 meq/ Potassium Phosphate 20 mmol/ Magnesium Sulfate 4.8 meq/Calcium Gluconate 2380 mg/ Insulin Human Regular 35.7 units/Amino Acids/ Dextrose 2,122.0237 ml @ 70 m ls/hr ONCE@1800 IV Last administered on 08/30/18at 18:01; Start 08/30/18 at 18:00; Stop 08/31/18 at 17:59; Status DC Sodium Chloride 200 meq/Sodium Acetate 40 meq/ Potassium Chloride 40 meq/ Potassium Phosphate 20 mmol/ Magnesium Sulfate 4.8 meq/Calcium Gluconate 2380 mg/ Insulin Human Regular 36 units/ Amino Acids/ Dextrose 2,122.0267 ml @ 70 mls/hr ONCE@1800 IV Last administered on 08/18/18at 17:24; Start 08/18/18 at 18:00; Stop 08/19/18 at 12:16; Status DC Sodium Chloride 200 meq/Sodium Acetate 40 meq/ Potassium Chloride 40 meq/ Potassium Phosphate 20 mmol/ Magnesium Sulfate 4.8 meq/Calcium Gluconate 2380 mg/ Insulin Human Regular 36 units/ Amino Acids/ Dextrose 2,122.0267 ml @ 70 mls/hr ONCE@1800 IV Last administered on 08/26/18at 18:05; Start 08/26/18 at 18:00; Stop 08/27/18 at 17:59; Status DC Sodium Chloride 200 meq/Sodium Acetate 40 meq/ Potassium Chloride 40 meq/ Potassium Phosphate 20 mmol/ Magnesium Sulfate 4.8 meq/Calcium Gluconate 2380 mg/ Insulin Human Regular 36 units/ Amino Acids/ Dextrose 2,122.0267 ml @ 70 mls/hr ONCE@1800 IV Last administered on 09/01/18at 18:51; Start 09/01/18 at 18:00; Stop 09/02/18 at 17:59; Status DC Sodium Chloride 200 meq/Sodium Acetate 40 meq/ Potassium Chloride 40 meq/ Potassium Phosphate 20 mmol/ Magnesium Sulfate 4.8 meq/Calcium Gluconate 2380 mg/ Insulin Human Regular 36 units/ Amino Acids/ Dextrose 2,122.0267 ml @ 70 mls/hr ONCE@1800 IV Last administered on 09/02/18at 18:21; Start 09/02/18 at 18:00; Stop 09/03/18 at 17:59; Status DC Sodium Chloride 200 meq/Sodium Acetate 40 meq/ Potassium Chloride 40 meq/ Potassium Phosphate 20 mmol/ Magnesium Sulfate 4.8 meq/Calcium Gluconate 2380 mg/ Multivitamins 10 ml/Chromium/ Copper/Manganese/ Seleni/Zn 1 ml/ Insulin Human Regular 36 units/ Amino Acids/ Dextrose 2,133.0267 ml @ 70 mls/hr ONCE@1800 IV Last administered on 08/24/18at 18:29; Start 08/24/18 at 18:00; Stop 08/25/18 at 17:59; Status DC Sodium Chloride 200 meq/Sodium Acetate 40 meq/ Potassium Chloride 40 meq/ Pota ssium Phosphate 20 mmol/ Magnesium Sulfate 4.8 meq/Calcium Gluconate 2380 mg/ Multivitamins 10 ml/Chromium/ Copper/Manganese/ Seleni/Zn 1 ml/ Insulin Human Regular 36 units/ Amino Acids/ Dextrose 2,133.0267 ml @ 70 mls/hr ONCE@1800 IV ; Start 09/02/18 at 18:00; Stop 09/03/18 at 17:59; Status Cancel Sodium Chloride 200 meq/Sodium Acetate 40 meq/ Potassium Chloride 40 meq/ Potassium Phosphate 20 mmol/ Magnesium Sulfate 4.8 meq/Calcium Gluconate 2381 mg/ Insulin Human Regular 36 units/ Amino Acids/ Dextrose 2,122.0367 ml @ 70 mls/hr ONCE@1800 IV Last administered on 08/28/18at 17:19; Start 08/28/18 at 18:00; Stop 08/29/18 at 17:59; Status DC Sodium Chloride 200 meq/Sodium Acetate 40 meq/ Potassium Chloride 40 meq/ Potassium Phosphate 20 mmol/ Magnesium Sulfate 4.8 meq/Calcium Gluconate 2381 mg/ Insulin Human Regular 36 units/ Amino Acids/ Dextrose 2,122.0367 ml @ 70 mls/hr ONCE@1800 IV Last administered on 09/04/18at 18:45; Start 09/04/18 at 18:00; Stop 09/05/18 at 17:59; Status DC Sodium Chloride 200 meq/Sodium Acetate 40 meq/ Potassium Chloride 40 meq/ Potassium Phosphate 20 mmol/ Magnesium Sulfate 4.8 meq/Calcium Gluconate 2381 mg/ Multivitamins 10 ml/Chromium/ Copper/Manganese/ Seleni/Zn 1 ml/ Insulin Human Regular 36 units/ Amino Acids/ Dextrose 2,133.0367 ml @ 70 mls/hr ONC E@1800 IV Last administered on 08/31/18at 19:17; Start 08/31/18 at 18:00; Stop 09/01/18 at 17:59; Status DC Sodium Chloride 200 meq/Sodium Acetate 40 meq/ Sodium Phosphate 8 mmol/Potassium Chloride 40 meq/ Potassium Phosphate 20 mmol/ Magnesium Sulfate 4.8 meq/Calcium Gluconate 2380 mg/ Insulin Human Regular 36 units/ Amino Acids/ Dextrose 2,124.6934 ml @ 70 mls/hr ONCE@1800 IV ; Start 09/06/18 at 18:00; Stop 09/06/18 at 18:00; Status DC Succinylcholine Chloride (Quelicin) 100 mg STAT STAT IV Last administered on 07/31/18at 05:13; Start 07/31/18 at 05:30; Stop 07/31/18 at 05:47; Status DC Tiotropium [place] (Spiriva Handihaler) 1 inhalation DAILY@08 INH Last administered on 09/05/18at 08:15; Start 08/27/18 at 08:00 Vancomycin HCl 1000 mg/IV Miscellaneous Supplies 1 each/ Dextrose 270 ml @ 270 mls/hr Q12H IV Last administered on 08/01/18at 20:49; Start 08/01/18 at 21:00; Stop 08/02/18 at 12:40; Status DC Vancomycin HCl 1000 mg/IV Miscellaneous Supplies 1 each/ Dextrose 270 ml @ 270 mls/hr Q24H IV ; Start 08/03/18 at 08:00; Stop 08/03/18 at 08:00; Status DC Vancomycin HCl 1000 mg/IV Miscellaneous Supplies 1 each/ Dextrose 270 ml @ 270 mls/hr Q8H IV Last administered on 08/01/18at 10:11; Start 07/31/18 at 11:00; Stop 08/01/18 at 18:15; Status DC Vasopressin 20 units/Sodium Chloride 500 ml @ 60 mls/hr Q8H20M IV Last administered on 08/08/18at 08:12; Start 08/02/18 at 15:00; Stop 08/12/18 at 14:59; Status DC Vecuronium [place] (Norcuron) 10 mg STAT STAT IV Last administered on 07/31/18at 05:27; Start 07/31/18 at 05:30; Stop 07/31/18 at 05:47; Status DC Allergies Coded Allergies: No Known Drug Allergy (Verified Allergy, Unknown, 11/28/16) Objective Physical Examination Examination GENERAL APPEARANCE: Looks comfortable. SKIN: Warm and dry. LUNGS: Clear to auscultation bilaterally. No wheezing appreciated. HEART: No chest wall abnormalities. Regular rate and rhythm with no murmurs appreciated. ABDOMEN: Abdomen is round, soft, and minimally distended. Nontender on palpation. EXTREMITIES: Extremities have no deformities. No edema identified Vital Signs Vital Signs Date Time Temp Pulse Resp B/P (MAP) Pulse Ox O2 Delivery O2 Flow Rate FiO2 09/07/18 08:39 18 09/07/18 08:38 72 130/70 09/07/18 06:00 98.8 97 09/05/18 13:18 Room Air 09/02/18 16:00 2.0 I&Os I&O- Last 24 Hours up to 6 AM 09/07/18 06:00 Intake Total 2380 ml Output Total 700 ml Balance 1680 ml Laboratory Data Labs 24H Laboratory Tests 2 09/06/18 12:07: Bedside Glucose (Misc Panel) 267H 09/06/18 16:55: Bedside Glucose (Misc Panel) 260H 09/06/18 23:59: Bedside Glucose (Misc Panel) 218H 09/07/18 05:08: Bedside Glucose (Misc Panel) 211H 09/07/18 05:35: Immature Granulocyte % (Auto) 1.1, White Blood Count 12.2H, Red Blood Count 3.19L, Hemoglobin 9.1L, Hematocrit 30.0L, Mean Corpuscular Volume 94.0, Mean Corpuscular Hemoglobin 28.5, Mean Corpuscular Hemoglobin Concent 30.3L, Red Cell Distribution Width 14.9H, Platelet Count 303, Neutrophils (%) (Auto) 69.1H, Lymphocytes (%) (Auto) 11.1L, Monocytes (%) (Auto) 12.4H, Eosinophils (%) (Auto) 5.3H, Basophils (%) (Auto) 1.0, Neutrophils # (Auto) 8.4H, Lymphocytes # (Auto) 1.4L, Monocytes # (Auto) 1.5H, Eosinophils # (Auto) 0.6H, Basophils # (Auto) 0.1, Nucleated Red Blood Cells % (auto) 0.0, Blood Urea Nitrogen 33H, Creatinine 1.90H, Sodium Level 139, Potassium Level 3.4L, Chloride Level 108H, Carbon Dioxide Level 21, Anion Gap 10, Glomerular Filtration Rate 40.1L, Calcium Level 8.2L, Phosphorus Level 3.0, Albumin 1.9L CBC/BMP Laboratory Tests 09/07/18 05:35 Red Blood Count 3.19 L, Mean Corpuscular Volume 94.0, Mean Corpuscular Hemoglob in 28.5, Mean Corpuscular Hemoglobin Concent 30.3 L, Red Cell Distribution Width 14.9 H, Neutrophils (%) (Auto) 69.1 H, Lymphocytes (%) (Auto) 11.1 L, Monocytes (%) (Auto) 12.4 H, Eosinophils (%) (Auto) 5.3 H, Basophils (%) (Auto) 1.0, Neutrophils # (Auto) 8.4 H, Lymphocytes # (Auto) 1.4 L, Monocytes # (Auto) 1.5 H, Eosinophils # (Auto) 0.6 H, Basophils # (Auto) 0.1, Anion Gap 10 Impression Ischemic colitis His pain and likewise the ileus seems to have resolved. His new problem now is diarrhea. He is tolerating regular food and hopefully next couple of days we can discontinue the TPN. If the diarrhea persists I would consider removing the antibiotics as he is already about 10 days into the Cipro and Flagyl. Also we'll consider repeating a C. difficile analysis if his WBC count spikes up. I have placed him on probiotics yesterday. Plan / VTE VTE Prophylaxis Ordered?: Yes JUAN DAVID VANCE MD Sep 07, 2018 10:48
[2018-09-07] MEDS ORDERED: HEPARIN 1,000 UNITS/ML 10ML VIAL (FOR RADIOLOGY& DIALYSIS ONLY) IV ONE (13:00)
--- NOTE | 2018-09-07 13:13 | IPN ---
DATE OF VISIT: 09/07/2018 Mr. Shipman is seen this morning on his bedside. He reports that his abdominal pain is slightly better but still has tenderness. He has no fever or chills. He remains on total parenteral nutrition (TPN) and IV antibiotics including Cipro and Flagyl. He denies any dyspnea or chest pain. Yesterday, we tried to diurese him, however, his urine output was only 1300 mL for the last 24 hours and he was positive by more than 1 liter. He has been dialysis dependent due to renal failure with only partial recovery so far. On physical examination, temperature 98.8 degrees Fahrenheit, heart rate 72 per minute and respiratory rate 16 per minute. Blood pressure 132/70 mmHg and oxygen saturation 97% on room air. Head is atraumatic. Neck is supple and jugular venous distention (JVD) is mildly elevated. He has a central line and hemodialysis catheter on anterior chest without any signs of infection. Heart sounds are regular and lungs with slightly diminished breath sounds at bases. Abdomen: Soft, slightly distended and tender. Bowel sounds are present. Extremities: Have no cyanosis or clubbing. Neurologically he is awake, alert and oriented times three. Today's labs show WBC count 12.2, hemoglobin 9.1 and hematocrit 30. Platelets 303. Sodium 139, potassium 3.4, CO2 21, BUN 33 and creatinine 1.90. Calcium level is 8.2. PROBLEMS: 1. Acute renal failure superimposed on chronic kidney disease. The patient does have partial recovery of kidney function and at this point kidney function seems to be stable. His creatinine did not change, however, he has been positive in fluid balance. He gets short of breath due to volume overload and we will try to dialyze him this afternoon and remove about 3 liters of fluid. At this point, he is still on TPN and is likely to continue requiring dialysis as needed. We tried diuretics yesterday but did not have much output. 2. Hypokalemia related to poor oral intake and low potassium in TPN. I suggest to increase the TPN potassium content. We will dialyze him with 4.0 mEq potassium bath today which will help to correct his hypokalemia. 3. Anemia. His anemia is stable and will continue with Aranesp 100 mcg once a week. 4. Nutrition. The patient remains on TPN due to colitis and he does get volume overload. At this point, we will continue to manage his volume with dialysis. 5. Colitis. The patient seems to be gradually improving and we will continue with IV antibiotics. Plan remains with Dr. Nolasco for possible surgical intervention or continued antibiotics.
--- NOTE | 2018-09-07 13:54 | IPN ---
DATE: 09/07/2018 Dae continues to have abdominal distension and pain. No fevers or chills. He is starting to take by mouth. PHYSICAL EXAMINATION: Blood pressure 109/66, afebrile. Lungs are clear. Abdomen is soft and distended. IMPRESSION: 1. He is medically stable. He takes Duloxetine 40 mg daily as an outpatient. This was held on admission and he would like to restart this, restart at 20 mg daily. 2. Receiving TPN. 3. Acute renal failure, superimposed on chronic kidney disease. 4. Colitis per surgery.
[2018-09-07 14:00] VITALS: BP 155/83
[2018-09-07] MEDS: FLUoxetine 20 MG CAP PO SCH (14:09)
[2018-09-07] MEDS ORDERED: POTASSIUM CHLORIDE IV SCH ×9 (18:00)
[2018-09-07] MEDS ORDERED: FAT EMULSION IV 20% 500 ML IV SCH (18:00)
[2018-09-07] MEDS ORDERED: SODIUM ACETATE IV SCH ×9 (18:00)
[2018-09-07] MEDS ORDERED: [UNRECOGNIZED DRUG - OTHER] IV SCH ×9 (18:00)
[2018-09-07] MEDS: diphenhydrAMINE 25 MG CAP PO PRN (21:34)
[2018-09-07 22:00] VITALS: BP 140/80
[2018-09-08] MEDS: HumaLOG INSULIN (NovoLOG) PER UNIT SC SCH ×4 (00:30→18:27)
[2018-09-08] MEDS: CIPROFLOXACIN 200 MG in APPROPRIATE DILUENT 1 EA IV SCH ×2 (00:30→12:36)
[2018-09-08] MEDS: HYDROMORPHONE HCL 0.5 MG/ 0.5 ML SYRINGE (J1170 PER 1) IV PRN ×6 (00:47→21:28)
[2018-09-08] MEDS: metroNIDAZOLE 500 MG in APPROPRIATE DILUENT 1 EA IV SCH ×3 (03:01→18:27)
[2018-09-08] MEDS: diphenhydrAMINE 25 MG CAP PO PRN (05:15)
[2018-09-08 06:00] VITALS: BP 132/77
[2018-09-08] MEDS: ISOSORBIDE DIN. (ISORDIL) 30 MG TAB PO SCH ×3 (06:35→18:12)
[2018-09-08 06:46] LABS: BASO # 0.1 10^3/uL (0.0-0.2); BASO % 0.9 % (0.0-1.0); EOS # 0.6 10^3/uL (0.0-0.50); EOS % 5.3 % (0.0-3.0); HEMATOCRIT 31.8 % (42.0-52.0); HEMOGLOBIN 9.8 g/dl (13.5-17.5); LYMPH # 1.1 10^3/uL (1.5-4.5); LYMPH % 9.5 % (24.0-44.0); MEAN CORPUSCULAR HEMOGLOBIN 28.7 pg (27.0-33.0); MEAN CORPUSCULAR HGB CONC 30.8 g/dl (32.0-36.5); MEAN CORPUSCULAR VOLUME 93.3 fl (80.0-96.0); MONO # 1.4 10^3/uL (0.0-0.8); NEUTROPHILS # 8.3 10^3/uL (1.8-7.7); NEUTROPHILS % 70.8 % (36.0-66.0); PLATELET COUNT, AUTOMATED 284 10^3/uL (150-450); RED BLOOD COUNT 3.41 10^6/uL (4.30-6.10); WHITE BLOOD COUNT 11.7 10^3/uL (4.0-10.0)
[2018-09-08 07:16] LABS: ALBUMIN 2.1 GM/DL (3.2-5.2); CALCIUM LEVEL 8.3 MG/DL (8.5-10.1); CREATININE FOR GFR 1.36 MG/DL (0.70-1.30); GLOMERULAR FILTRATION RATE 59.1 (>56); PHOSPHORUS LEVEL 2.9 MG/DL (2.5-4.9); POTASSIUM SERUM 3.8 MEQ/L (3.5-5.1); PREALBUMIN 19.3 MG/DL (20.0-40.0)
[2018-09-08] MEDS: TIOTROPIUM INHALER/CAPSULE (SPIRIVA) INH SCH (08:00)
[2018-09-08] MEDS: SYMBICORT 160/4.5MCG INHALER 6GM INH SCH ×2 (08:04→21:08)
--- NOTE | 2018-09-08 08:22 | IPNPDOC ---
Text Note Date of Service The patient was seen on 09/08/18. NOTE No acute events overnight. He is tolerating regular diet. Denies problems with abd pains, nausea, emesis, fevers, or chills. His stools have sowed down, and he is still too weak to walk. VSSAF BM - 3 NAD abd - soft, nt, nd Wbc - 12.2>11.7 A) 48y/o male with ischemic colitis that is resolving. ARF on CRF P) reg diet d/c TPN PT will monitor as needed. Cody Bedoya DO VS,Fishbone, I+O VS, Fishbone, I+O Laboratory Tests 09/08/18 06:17 Red Blood Count 3.41 L, Mean Corpuscular Volume 93.3, Mean Corpuscular Hemoglobin 28.7, Mean Corpuscular Hemoglobin Concent 30.8 L, Red Cell Distribution Width 15.2 H, Neutrophils (%) (Auto) 70.8 H, Lymphocytes (%) (Auto) 9.5 L, Monocytes (%) (Auto) 12.0 H, Eosinophils (%) (Auto) 5.3 H, Basophils (%) (Auto) 0.9, Neutrophils # (Auto) 8.3 H, Lymphocytes # (Auto) 1.1 L, Monocytes # (Auto) 1.4 H, Eosinophils # (Auto) 0.6 H, Basophils # (Auto) 0.1, Anion Gap 7 L Vital Signs Date Time Temp Pulse Resp B/P (MAP) Pulse Ox O2 Delivery O2 Flow Rate FiO2 09/08/18 06:35 132/77 09/08/18 06:00 98.8 84 19 96 09/05/18 13:18 Room Air 09/02/18 16:00 2.0 I&O- Last 24 Hours up to 6 AM 09/08/18 06:00 Intake Total 1560 ml Output Total 3450 ml Balance -1890 ml LAVINIA BEDOYA DO Sep 08, 2018 08:22
[2018-09-08] MEDS: FLUoxetine 20 MG CAP PO SCH (09:19)
[2018-09-08] MEDS: PANTOPRAZOLE 40MG INJ (PROTONIX) (C9113) IV SCH (09:20)
[2018-09-08] MEDS: CARVedilol 6.25 MG TAB PO SCH ×2 (09:20→21:27)
[2018-09-08] MEDS: AMIODARONE 200 MG TAB (PACERONE) PO SCH (09:20)
[2018-09-08] MEDS: LACTOBACILLUS ACIDOPHILUS CAP (BACID) PO SCH ×2 (09:20→18:09)
[2018-09-08] MEDS: CLOPIDOGREL 75 MG TAB PO SCH (09:20)
[2018-09-08] MEDS: SODIUM CHLORIDE 0.9% INJ 10 ML SYR IV SCH ×2 (09:35→18:26)
[2018-09-08] MEDS: SANTYL OINT 30GM TOP SCH (10:30)
[2018-09-08] MEDS: ONDANSETRON 4MG/2ML VIAL (J2405) IV PRN ×2 (11:32→18:25)
[2018-09-08] MEDS: ACETAMINOPHEN TAB 650MG DOSE (2X325MG) PO PRN (11:35)
--- NOTE | 2018-09-08 12:37 | IPN ---
DATE: 09/08/2018 Dae is seen on 5 sesay. He would like to have his total parenteral nutrition (TPN) discontinued. He is starting to take oral and he says he gets stomach upset every time we hang his TPN. PHYSICAL EXAM: Afebrile. Vital signs stable. Lungs: Clear. Heart: Regular rate and rhythm. Abdomen: Soft, less tender, less protuberant and definitely improved over the last few days. LABS: Electrolytes look unremarkable and creatinine is down to 1.3. CBC is unremarkable. Plan is to discontinue TPN after his current bag is infused. Continue oral feedings. Maybe next week we can get a calorie count and taxicab coordinator to see him.
[2018-09-08 14:00] VITALS: BP 129/72
[2018-09-08 22:00] VITALS: BP 123/69
[2018-09-09] MEDS: HYDROMORPHONE HCL 0.5 MG/ 0.5 ML SYRINGE (J1170 PER 1) IV PRN ×9 (00:27→23:39)
[2018-09-09] MEDS: HumaLOG INSULIN (NovoLOG) PER UNIT SC SCH ×4 (00:28→18:00)
[2018-09-09] MEDS: ONDANSETRON 4MG/2ML VIAL (J2405) IV PRN ×3 (00:29→21:04)
[2018-09-09] MEDS: CIPROFLOXACIN 200 MG in APPROPRIATE DILUENT 1 EA IV SCH ×3 (00:29→23:59)
[2018-09-09] MEDS: metroNIDAZOLE 500 MG in APPROPRIATE DILUENT 1 EA IV SCH ×3 (03:20→21:05)
[2018-09-09 06:00] VITALS: BP 136/78
[2018-09-09] MEDS: ISOSORBIDE DIN. (ISORDIL) 30 MG TAB PO SCH ×3 (06:29→18:27)
[2018-09-09 06:41] LABS: BASO # 0.1 10^3/uL (0.0-0.2); BASO % 0.9 % (0.0-1.0); EOS # 0.7 10^3/uL (0.0-0.50); EOS % 6.9 % (0.0-3.0); HEMATOCRIT 30.9 % (42.0-52.0); HEMOGLOBIN 9.2 g/dl (13.5-17.5); LYMPH % 10.3 % (24.0-44.0); MEAN CORPUSCULAR HEMOGLOBIN 27.7 pg (27.0-33.0); MEAN CORPUSCULAR HGB CONC 29.8 g/dl (32.0-36.5); MEAN CORPUSCULAR VOLUME 93.1 fl (80.0-96.0); MONO # 1.4 10^3/uL (0.0-0.8); MONO % 14.6 % (0.0-5.0); NEUTROPHILS # 6.3 10^3/uL (1.8-7.7); NEUTROPHILS % 66.4 % (36.0-66.0); PLATELET COUNT, AUTOMATED 284 10^3/uL (150-450); RED BLOOD COUNT 3.32 10^6/uL (4.30-6.10); WHITE BLOOD COUNT 9.5 10^3/uL (4.0-10.0)
[2018-09-09 06:53] LABS: CALCIUM LEVEL 8.5 MG/DL (8.5-10.1); CREATININE FOR GFR 1.52 MG/DL (0.70-1.30); GLOMERULAR FILTRATION RATE 51.9 (>56); PHOSPHORUS LEVEL 3.3 MG/DL (2.5-4.9); POTASSIUM SERUM 3.1 MEQ/L (3.5-5.1)
[2018-09-09] MEDS: TIOTROPIUM INHALER/CAPSULE (SPIRIVA) INH SCH (08:00)
[2018-09-09] MEDS: SYMBICORT 160/4.5MCG INHALER 6GM INH SCH (08:50)
[2018-09-09] MEDS: SANTYL OINT 30GM TOP SCH (09:00)
[2018-09-09] MEDS: FLUoxetine 20 MG CAP PO SCH (09:27)
[2018-09-09] MEDS: CARVedilol 6.25 MG TAB PO SCH ×2 (09:27→21:07)
[2018-09-09] MEDS: CLOPIDOGREL 75 MG TAB PO SCH (09:27)
[2018-09-09] MEDS: LACTOBACILLUS ACIDOPHILUS CAP (BACID) PO SCH ×2 (09:27→18:27)
[2018-09-09] MEDS: PANTOPRAZOLE 40MG INJ (PROTONIX) (C9113) IV SCH (09:28)
[2018-09-09] MEDS: AMIODARONE 200 MG TAB (PACERONE) PO SCH (09:28)
--- NOTE | 2018-09-09 10:31 | IPN ---
DATE OF SERVICE: 09/08/2018 SUBJECTIVE: The patient was seen and examined at the bedside today morning. The patient is afebrile. He still reports mild amount of pain in the abdomen. However, his total parenteral nutrition (TPN) was stopped today morning, and he reports that he has been started on oral diet now. He was dialyzed yesterday. 3 liters of fluid was removed. He tolerated the hemodialysis procedure well. OBJECTIVE: Vital signs: Temperature is 98.8 degrees Fahrenheit, blood pressure 132/77, pulse is 84, respiratory rate of 19, saturating 96% on room air. Intake and output: Urine output recorded yesterday is 450 mL. 3 liters of fluid was removed during dialysis. Weight in the bed scale is 80 kg. PHYSICAL EXAMINATION: General: The patient is awake, alert, oriented times three, lying in bed, weak and cachectic. Head and neck examination: Extraocular muscles intact. Pupils equally round and reactive to light Mucous membranes are moist. Neck is supple. There is no jugular venous distention (JVD). He has a right internal jugular (vein) (IJ) tunneled hemodialysis catheter and left IJ tunneled peripherally inserted central catheter (PICC) line. Cardiovascular: S1, S2, regular rate. No edema of the bilateral lower extremities. Respiratory: Chest is clear to auscultation bilaterally. Bilateral equal air entry. No rales or rhonchi. Abdomen: Is soft, mildly distended. Positive bowel sounds. Positive diffuse tenderness all over the abdomen on deep palpation. There is no rebound tenderness. Musculoskeletal: No clubbing. Pulses are 2+. Central nervous system (EQUIPMENT OPERATOR/LABORER/SUPERVISOR): Power is 5/5 in all extremities. There is no focal deficit. LABORATORY REVIEW: Complete blood count (CBC) showed a WBC of 11.7, hemoglobin 9.8, platelets are 284. Basic metabolic profile (BMP) showed sodium 137, potassium 3.8, chloride 104, bicarbonate 26, BUN 19, creatinine is 1.3, calcium 8.3, phosphorus is 2.9. CURRENT INPATIENT MEDICATIONS: The patient's medications were all reviewed by me. His TPN has been stopped now. He continues to be on intravenous (IV) Flagyl and IV ciprofloxacin. No other change in the medications today as compared with yesterday. ASSESSMENT AND PLAN: 1. Acute Renal Failure. The patient developed acute renal failure during this hospitalization. He is still dialysis-dependent. There is no significant renal improvement. However, he is nonoliguric at this point. The patient was dialyzed yesterday for volume management because he was fluid overloaded secondary to TPN. I will continue to monitor his renal function on a daily basis and decide about renal replacement therapy or discontinuation of dialysis if his renal function improves. 2. Ischemic colitis. The patient is currently on IV ciprofloxacin and IV Flagyl. Dose is adequate for his renal function. 3. Anemia secondary to renal failure. Hemoglobin is 9.8. He is getting Aranesp with hemodialysis. Hemoglobin level is improving. 4. Nutrition. The patient was on TPN due to colitis and acute pancreatitis. TPN has been stopped today morning, and his oral diet is being advanced. 5. Acute pancreatitis. The patient still has a moderate amount of pain, which is being optimized with Dilaudid. As mentioned above, he was on TPN. Oral diet is being advanced now. The rest of the management is as per surgical team. 6. Coronary artery disease. The patient had myocardial infarction (MA) and cardiac arrest during this hospitalization. Continue current dose of amiodarone, carvedilol, and isosorbide at this point. MTDD
[2018-09-09] MEDS ORDERED: POTASSIUM CHLORIDE 10% LIQ 20 MEQ/15 ML UDC PO ONE (11:00)
[2018-09-09 14:00] VITALS: BP 134/75
[2018-09-09] MEDS ORDERED: POTASSIUM CHLORIDE 10 MEQ SR TABLET PO ONE (15:00)
--- NOTE | 2018-09-09 15:23 | IPN ---
DATE: 09/09/2018 aDe is a little better yet today. He is taking by mouth well. Being off total parenteral nutrition, has lead to less abdominal pain and discomfort. PHYSICAL EXAMINATION: Vital Signs: Stable. Lungs: Clear. Heart: Regular rhythm. Abdomen: Soft. Less distended. Less tender. LABS: CBC, BMP are unremarkable. Potassium is a little low at 3.1. PLAN: He has had potassium ordered already today by nephrology. He is off of his TPN and he is taking by mouth better. Surgery is following him for his other issues.
[2018-09-09] MEDS: SODIUM CHLORIDE 0.9% INJ 10 ML SYR IV PRN (18:34)
[2018-09-09 22:00] VITALS: BP 129/73
[2018-09-10] MEDS: metroNIDAZOLE 500 MG in APPROPRIATE DILUENT 1 EA IV SCH ×2 (03:43→11:08)
[2018-09-10] MEDS: HYDROMORPHONE HCL 0.5 MG/ 0.5 ML SYRINGE (J1170 PER 1) IV PRN ×6 (03:44→19:37)
[2018-09-10] MEDS: SODIUM CHLORIDE 0.9% INJ 10 ML SYR IV PRN (05:02)
[2018-09-10 06:00] VITALS: BP 138/87
[2018-09-10 07:00] LABS: BASO # 0.1 10^3/uL (0.0-0.2); BASO % 1.1 % (0.0-1.0); EOS # 0.4 10^3/uL (0.0-0.50); EOS % 4.8 % (0.0-3.0); HEMATOCRIT 30.6 % (42.0-52.0); HEMOGLOBIN 9.5 g/dl (13.5-17.5); LYMPH # 1.1 10^3/uL (1.5-4.5); LYMPH % 12.6 % (24.0-44.0); MEAN CORPUSCULAR HEMOGLOBIN 28.8 pg (27.0-33.0); MEAN CORPUSCULAR VOLUME 92.7 fl (80.0-96.0); MONO # 1.3 10^3/uL (0.0-0.8); NEUTROPHILS # 5.8 10^3/uL (1.8-7.7); NEUTROPHILS % 65.3 % (36.0-66.0); PLATELET COUNT, AUTOMATED 295 10^3/uL (150-450); WHITE BLOOD COUNT 8.9 10^3/uL (4.0-10.0)
[2018-09-10] MEDS: ISOSORBIDE DIN. (ISORDIL) 30 MG TAB PO SCH ×3 (07:03→17:55)
[2018-09-10] MEDS: ONDANSETRON 4MG/2ML VIAL (J2405) IV PRN (07:03)
[2018-09-10] MEDS: HumaLOG INSULIN (NovoLOG) PER UNIT SC SCH ×4 (07:04→17:55)
[2018-09-10 07:42] LABS: ALBUMIN 2.1 GM/DL (3.2-5.2); CALCIUM LEVEL 8.5 MG/DL (8.5-10.1); CREATININE FOR GFR 1.49 MG/DL (0.70-1.30); GLOMERULAR FILTRATION RATE 53.1 (>56); PHOSPHORUS LEVEL 3.1 MG/DL (2.5-4.9); POTASSIUM SERUM 3.8 MEQ/L (3.5-5.1)
[2018-09-10] MEDS: TIOTROPIUM INHALER/CAPSULE (SPIRIVA) INH SCH (08:00)
[2018-09-10] MEDS: AMIODARONE 200 MG TAB (PACERONE) PO SCH (08:31)
[2018-09-10] MEDS: CLOPIDOGREL 75 MG TAB PO SCH (08:32)
[2018-09-10] MEDS: FLUoxetine 20 MG CAP PO SCH (08:33)
[2018-09-10] MEDS: LACTOBACILLUS ACIDOPHILUS CAP (BACID) PO SCH ×2 (08:33→17:54)
[2018-09-10] MEDS: PANTOPRAZOLE 40MG INJ (PROTONIX) (C9113) IV SCH (08:34)
[2018-09-10] MEDS: CARVedilol 6.25 MG TAB PO SCH ×2 (08:37→21:18)
[2018-09-10] MEDS: SANTYL OINT 30GM TOP SCH (08:39)
[2018-09-10] MEDS: SODIUM CHLORIDE 0.9% INJ 10 ML SYR IV SCH (09:00)
[2018-09-10] MEDS: SYMBICORT 160/4.5MCG INHALER 6GM INH SCH ×3 (09:10→19:41)
[2018-09-10] MEDS ORDERED: FUROSEMIDE 40 MG/4 ML VIAL (J1940) IV ONE (11:45)
[2018-09-10] MEDS: CIPROFLOXACIN 200 MG in APPROPRIATE DILUENT 1 EA IV SCH (12:57)
--- NOTE | 2018-09-10 13:54 | IPN ---
DATE: 09/09/2018 Patient was seen and examined at the bedside today morning. He reports that he is able to tolerate oral diet now. His urine output is improving. He made more than a liter of urine since overnight. His interdialytic creatinine is still rising however it looks like patient's renal function is slowly improving now. He reports that the pain is also optimized. OBJECTIVE: VITAL SIGNS: Temperature 98.4 degrees Fahrenheit. Blood pressure 134/75, pulse 85, respiratory rate 18 saturating 97% on room air. INTAKE AND OUTPUT: Urine output recorded yesterday is 400 mL. Urine output overnight is 1.3 liters. Weight in the bed scale is not available. PHYSICAL EXAM: GENERAL: Patient is awake, alert and oriented times three, laying in bed, no apparent distress. HEAD AND NECK EXAM: Extraocular muscles intact. Pupils equally round and reactive to light. Mucous membranes are moist and neck is supple. There is no JVD. He has a right IJ tunnel hemodialysis catheter and left IJ tunnel PICC line. CARDIOVASCULAR: S1, S2 regular rate. Left sided AICD is noted. EXTREMITIES: No edema at the bilateral lower extremities. RESPIRATORY: Chest is clear to auscultation bilaterally. Bilateral equal air entry. No rales or rhonchi. ABDOMEN: Soft, positive bowel sounds. Moderate amount of tenderness to deep palpation. MUSCULOSKELETAL: No clubbing or cyanosis. Pulses are 2+. PRICE LISTER: No focal deficit. Power is 5/5 in all extremities. LAB REVIEW: CBC showed a WBC of 9.5, hemoglobin 9.2, platelets 284, BMP showed a sodium of 139, potassium 3.1, chloride 107, bicarbonate 23, BUN 19, creatinine 1.5, calcium 8.5, phosphorus 3.3. CURRENT INPATIENT MEDICATIONS: Patients medications were all reviewed by me. There is no change in the medications today apart from a low dose of Dilaudid which was decreased today morning. ASSESSMENT AND PLAN: 1. Renal failure. Patient has developed acute renal failure during his hospitalization. He is non-oliguric at this point however his creatinine is still rising. I will continue to monitor the patient for any need of renal replacement therapy. Last hemodialysis was done on 09/07/2018. Volume status is optimized. 2. Ischemic colitis. Patient is symptomatically getting better. He is on IV ciprofloxacin and Flagyl. He is tolerating that oral diet now. 3. Anemia secondary to renal failure. Hemoglobin is 9.2 which is optimal. Continue current dose of Aranesp with dialysis sessions. No need of blood transfusion at this point. 4. Acute pancreatitis. His pain is better optimized. His Dilaudid dose is being tapered down by the primary team. TPN was topped yesterday. 5. Coronary artery disease and history of congestive heart failure. Continue current dose of amiodarone, Coreg, and isosorbide. Volume status is being optimized with dialysis however he is making urine at this point. If needed I will give him a dose of diuretic. 6. Hypokalemia. Patient was given potassium chloride only in the morning.
[2018-09-10 15:18] VITALS: BP 137/78
--- NOTE | 2018-09-10 15:26 | IPN ---
DATE: 09/10/2018 Dae is seen on [facility]. He had some diarrhea. We checked stool for Clostridium (C) difficile and it was negative. He is having trouble sleeping. He would like a sleeping medicine. PHYSICAL EXAMINATION: Blood pressure 139/90, afebrile. GENERAL APPEARANCE: He looks better than he did earlier in the week. LUNGS: Clear. HEART: Regular rate and rhythm. ABDOMEN: Soft, slightly tender, not distended. LABORATORY DATA: CBC unremarkable. BMP unremarkable. Creatinine is 1.5. IMPRESSION: 1. Diarrhea probably from refeeding. Stool is negative for Clostridium (C) difficile. 2. Acute renal failure, superimposed on chronic kidney disease. Kidney function is probably at his baseline. 3. Sleep disturbance. I have ordered some Ambien for bedtime. He says he has been having trouble sleeping. I did start him on some fluoxetine back on 09/07/2018. It could be affecting his sleep. We need to keep that possibility in mind. I will give him some Ambien low-dose for a few nights. If sleep disturbance persists, he might benefit from a different antidepressant.
[2018-09-10] MEDS: CIPROFLOXACIN 250 MG TAB PO SCH (17:55)
[2018-09-10] MEDS: zolPIDEM TARTRATE 5 MG TAB PO PRN (21:18)
[2018-09-10] MEDS: metroNIDAZOLE (FLAGYL) 500 MG TAB PO SCH (21:18)
[2018-09-10 22:00] VITALS: BP 140/86
[2018-09-11] MEDS: HYDROMORPHONE HCL 0.5 MG/ 0.5 ML SYRINGE (J1170 PER 1) IV PRN ×6 (00:30→20:45)
[2018-09-11 05:56] LABS: BASO # 0.1 10^3/uL (0.0-0.2); BASO % 1.2 % (0.0-1.0); EOS # 0.5 10^3/uL (0.0-0.50); EOS % 5.4 % (0.0-3.0); HEMATOCRIT 30.5 % (42.0-52.0); HEMOGLOBIN 9.4 g/dl (13.5-17.5); LYMPH # 1.3 10^3/uL (1.5-4.5); MEAN CORPUSCULAR HEMOGLOBIN 28.2 pg (27.0-33.0); MEAN CORPUSCULAR HGB CONC 30.8 g/dl (32.0-36.5); MEAN CORPUSCULAR VOLUME 91.6 fl (80.0-96.0); MONO # 1.3 10^3/uL (0.0-0.8); MONO % 14.6 % (0.0-5.0); NEUTROPHILS # 5.9 10^3/uL (1.8-7.7); NEUTROPHILS % 63.6 % (36.0-66.0); PLATELET COUNT, AUTOMATED 305 10^3/uL (150-450); RED BLOOD COUNT 3.33 10^6/uL (4.30-6.10); WHITE BLOOD COUNT 9.2 10^3/uL (4.0-10.0)
[2018-09-11 06:00] VITALS: BP 139/85
[2018-09-11 06:24] LABS: ALBUMIN 2.1 GM/DL (3.2-5.2); CALCIUM LEVEL 8.4 MG/DL (8.5-10.1); CREATININE FOR GFR 1.53 MG/DL (0.70-1.30); GLOMERULAR FILTRATION RATE 51.5 (>56); PHOSPHORUS LEVEL 3.2 MG/DL (2.5-4.9); POTASSIUM SERUM 3.2 MEQ/L (3.5-5.1)
[2018-09-11] MEDS: ONDANSETRON 4MG/2ML VIAL (J2405) IV PRN ×3 (06:37→19:50)
[2018-09-11] MEDS: ISOSORBIDE DIN. (ISORDIL) 30 MG TAB PO SCH ×3 (06:37→17:56)
[2018-09-11] MEDS: metroNIDAZOLE (FLAGYL) 500 MG TAB PO SCH ×3 (06:37→22:42)
[2018-09-11] MEDS: CIPROFLOXACIN 250 MG TAB PO SCH ×2 (06:37→17:39)
[2018-09-11] MEDS: SODIUM CHLORIDE 0.9% INJ 10 ML SYR IV PRN ×4 (06:39→19:50)
[2018-09-11] MEDS: HumaLOG INSULIN (NovoLOG) PER UNIT SC SCH ×4 (06:45→18:24)
--- NOTE | 2018-09-11 07:21 | IPN ---
DATE: 09/10/2018 SUBJECTIVE: Patient was seen and examined at the bedside today morning. He is tolerating the liquids now. He is not tolerating the solid foods very well, however he is not on any total parenteral nutrition (TPN) at this time. He has a very good urine output. His renal function is actually staying stable. His creatinine is fluctuating around 1.4 to 1.5 for the last three days. The patient still reports a moderate amount of abdominal pain. OBJECTIVE: VITAL SIGNS: Temperature 98.8 degrees Fahrenheit. Blood pressure 137/78, pulse is 89, respiratory rate of 18 saturating 96% on room air. INTAKE AND OUTPUT: Urine output recorded as 1.3 liters yesterday, 400 mL so far today since overnight. Weight on the bed scale is not available. PHYSICAL EXAM: GENERAL: Patient is awake, alert and oriented times three, laying in bed, no apparent distress. HEAD AND NECK EXAM: Extraocular muscles intact. Pupils equally round and reactive to light. Mucous membranes are moist. Neck is supple. There is no jugular venous distention (JVD). He has a right IJ tunneled hemodialysis catheter and left IJ tunneled PICC line. CARDIOVASCULAR: S1, S2 regular rate. 1+ edema of the bilateral lower extremities. RESPIRATORY: Chest is clear to auscultation bilaterally. Bilateral equal air entry. No rales or rhonchi. ABDOMEN: Soft, mildly tender to deep palpation all over the abdomen. Mild guarding was noted. There is no rebound tenderness. MUSCULOSKELETAL: No clubbing or cyanosis. Pulses are 2+. FEATHER RENOVATOR: No focal deficit. Power is 5/5 in all extremities. LAB REVIEW: CBC showed a WBC of 8.9, hemoglobin 9.5, platelets are 295. BMP showed sodium 139, potassium 3.8, chloride 109, bicarb 21, BUN 16, creatinine 1.4, it was 1.5 yesterday, calcium 8.5, phosphorus 3.1. CURRENT INPATIENT MEDICATIONS: The patient's medications were all reviewed by me. His IV Cipro and Flagyl have been stopped. He has been started on ciprofloxacin orally 250 mg by mouth twice a day. He was given a dose of Lasix 40 mg IV by myself today in the morning. ASSESSMENT AND PLAN: 1. Acute renal failure. Patient is nonoliguric at this point. His creatinine has been staying stable. I would not do his hemodialysis, however, for volume management I have given him a dose of diuretic. I am very hopeful that the patient would not require dialysis any further. 2. 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 As mentioned above, I gave the patient a dose of Lasix 40 mg IV times one dose for volume optimization. No need for dialysis at this point. 3. Anemia. Hemoglobin is 9.5, which is optimal. No need for a blood transfusion at this point. 4. Acute pancreatitis. Patient still has abdominal pain, which is being optimized with Dilaudid. He si tolerating the liquid diet now. 5. Ischemic colitis. Patient is tolerating liquids. He continues to be on oral ciprofloxacin. IV Flagyl has been stopped. 6. Coronary artery disease and ischemic cardiomyopathy. Continue current dose of carvedilol 6.25 mg by mouth twice a day, Plavix 75 mg daily, isosorbide 30 mg by mouth three times a day.
[2018-09-11] MEDS: TIOTROPIUM INHALER/CAPSULE (SPIRIVA) INH SCH (07:38)
[2018-09-11] MEDS: SYMBICORT 160/4.5MCG INHALER 6GM INH SCH ×2 (07:38→21:00)
[2018-09-11] MEDS: CLOPIDOGREL 75 MG TAB PO SCH (08:42)
[2018-09-11] MEDS: LACTOBACILLUS ACIDOPHILUS CAP (BACID) PO SCH ×2 (08:42→17:39)
[2018-09-11] MEDS: AMIODARONE 200 MG TAB (PACERONE) PO SCH (08:42)
[2018-09-11] MEDS: PANTOPRAZOLE 40MG INJ (PROTONIX) (C9113) IV SCH (08:42)
[2018-09-11] MEDS: CARVedilol 6.25 MG TAB PO SCH ×2 (08:42→20:46)
[2018-09-11] MEDS: FLUoxetine 20 MG CAP PO SCH (08:42)
[2018-09-11] MEDS: SODIUM CHLORIDE 0.9% INJ 10 ML SYR IV SCH (08:43)
[2018-09-11] MEDS: SANTYL OINT 30GM TOP SCH (08:44)
[2018-09-11] MEDS ORDERED: POTASSIUM CHLORIDE 10% LIQ 20 MEQ/15 ML UDC PO ONE (08:45)
[2018-09-11] MEDS ORDERED: POTASSIUM CHLORIDE 10 MEQ SR TABLET PO ONE (09:15)
[2018-09-11 14:00] VITALS: BP 113/63
--- NOTE | 2018-09-11 14:58 | IPN ---
DATE: 09/11/2018 SUBJECTIVE: The patient tells me that he is feeling okay. He tells me that he has continued pain in his belly, which is worsened by food. He denies any fevers, chills, chest pain, or shortness of breath. OBJECTIVE: VITAL SIGNS: Temperature 98.3, pulse 72, respiratory rate 14, blood pressure 139/85, oxygen saturation 94% on room air. GENERAL: He is a slim middle aged man, appears older than stated age. He is somewhat frail. He does not appear to be in any acute distress. HEENT: Cranial nerves II through XII grossly intact. He has moist mucous membranes. No elevation of central venous pressure (CVP). CARDIOVASCULAR EXAM: S1 and S2 regular. RESPIRATORY EXAM: Clear. ABDOMINAL EXAM: Bowel sounds present. The abdomen is soft, nontender, other than the right upper quadrant. EXTREMITIES: No clubbing, cyanosis, or edema. LABORATORY STUDIES: WBC 9.2, hemoglobin 9.4, platelet count 305. Chemistry panel - sodium 140, potassium 3.2, chloride 108, bicarb 23, BUN 17, creatinine 1.5. Microbiology is all thus far negative in the recent past. No recent imaging. ASSESSMENT/PLAN: This is a 48-year-old man with acute renal failure. 1. Acute renal failure. Renal function is stable at this time. He has been started on a diuretic. Nephrology's help is greatly appreciated. 2. Combined systolic and diastolic congestive heart failure. He is receiving intermittent diuresis. His volume status appears to be fairly euvolemic today. 3. Anemia. Stable. 4. Pancreatitis. The patient is tolerating a pureed diet. He has pain, however given that he is able to tolerate all by mouth medications, I would to discontinue his IV narcotics and transition him to a by mouth pain medication regimen. He was resistant to my attempts to do this this morning and as such I have placed a pain management consult to help with the transition as he was concerned about experiencing worse pain with his change in regimen. 5. Ischemic colitis. He appears to be doing well. He is continued on oral Cipro. It looks as though tomorrow would be two weeks of Cipro. Dr. Nolasco's help is greatly appreciated. No plan for surgery prior to him being seen by his assembly line robot operator, Dr. Garcia. 6. Diarrhea. No complaints of this today. Will continue to monitor closely. GI and PCR panels are negative. 7. Insomnia. He has been started on Ambien. 8. Non-ST elevation myocardial infarction. At this time treat as if it was an acute plaque rupture versus related to his congestive heart failure (CHF) decompensation. It looks as though his troponin did peak at 15 back in July and he has had further troponinemia at the end of August. I think he would certainly benefit from close outpatient cardiology follow-up or should he have any acute cardiac event or further abnormalities in troponin that would advocate for inpatient cardiology consultation. He most certainly has some underlying coronary artery disease. For the time being he is on Nitrostat, Isordil, carvedilol, and Plavix. He is not on a statin, but possibly related to his recent fairly severe pancreatitis. 9. The patient has an automatic implantable cardioverter-defibrillator (AICD). 10. Shock liver, resolved. 11. General deconditioning. Continue with physical therapy. Will likely require some rehab. 12. Diabetes. Fingersticks are well controlled. 13. Anemia of chronic disease. Stable. 14. Metabolic acidosis. Resolved. 15. Drug reaction. The patient reportedly had a reaction to hydralazine which was rash. I will document as allergy. DISPOSITION: Pending likely placement.
--- NOTE | 2018-09-11 17:12 | CR ---
DATE OF CONSULTATION: 09/11/2018 REFERRING PHYSICIAN: Dr. Quiñonez CHIEF COMPLAINT: Abdominal pain/pancreatitis. HISTORY OF PRESENT ILLNESS: Dae is a 48-year-old gentleman who has been hospitalized over the past several weeks for multisystem failure. We were asked to see him again to make recommendations to transition off of IV Dilaudid. The patient is seen today at the bedside. No acute distress. He does state that he is having lower abdominal pain that is chronic. States pain level right now is 7/10 visual analog scale (VAS). States pain is aggravated with meals. Discussed need to transition off of IV pain medication. He seems very receptive. I did assure him that in the worst case scenario a dose of IV pain medicine could be used if the by mouth pain medications were not helpful but that would be our last resort. ASSESSMENT: Chronic pancreatitis/chronic abdominal pain. PLAN: I would recommend trial of Dilaudid by mouth 4 mg one every four hours as needed for severe pain episodes. Keep one dose of IV Dilaudid 0.6 mg available for a one-time dose daily if needed for pain not controlled by oral Dilaudid. May consider use of long-acting pain medication if we see the need. Keep or establish a bowel regimen for opioid induced constipation.
[2018-09-11] MEDS: zolPIDEM TARTRATE 5 MG TAB PO PRN (20:01)
[2018-09-11 22:00] VITALS: BP 134/80
--- NOTE | 2018-09-12 00:12 | IPN ---
DATE: 09/11/2018 SUBJECTIVE: The patient was seen and examined at the bedside today morning. He is afebrile, hemodynamically stable. He reports that slowly his abdominal pain is improving now. He was given a dose of Lasix yesterday. He made more than 3 liters of urine. His renal function is stable. Creatinine has been fluctuating between 1.4 to 1.5. The patient is otherwise afebrile and hemodynamically stable. OBJECTIVE: VITAL SIGNS: Temperature is 98.7 degrees Fahrenheit, blood pressure 113/63, pulse is 81, respiratory rate of 16, saturating 96% on room air. INTAKE/OUTPUT: Urine output recorded as 3.3 liters yesterday, 950 mL so far today since overnight. Weight on the bed scale is not available. PHYSICAL EXAMINATION: GENERAL: The patient is awake, alert, oriented times three, laying in bed, in no apparent distress. HEAD AND NECK EXAM: Extraocular muscles intact. Pupils equally round and reactive to light. Mucous membranes are moist. Neck is supple. No jugular venous distention (JVD). Right internal jugular (IJ) tunneled hemodialysis catheter, left IJ tunneled peripherally inserted central catheter (PICC) line. CARDIOVASCULAR: S1, S2, regular rate. No edema of the bilateral lower extremities. RESPIRATORY: Chest is clear to auscultation bilaterally. Bilateral equal air entry. No rales or rhonchi. ABDOMEN: Abdomen is soft, mildly tender to deep palpation all over the abdomen. Mild guarding was also noted. MUSCULOSKELETAL: No clubbing or cyanosis. Pulses are 2+. CENTRAL NERVOUS SYSTEM (COTTON FACTOR): No focal deficit. Power is 5/5 in all extremities. LAB REVIEW: CBC showed a WBC of 9.2, hemoglobin 9.5, platelets are 305. BMP showed sodium 140, potassium 3.2, chloride 108, bicarbonate 23, BUN 17, creatinine is 1.5, calcium 8.4. CURRENT INPATIENT MEDICATIONS: The patient's medications were all reviewed by me. He was given a dose of Lasix yesterday. The patient was given a dose of potassium chloride 40 mEq by mouth times one dose. No other change in the medications today as compared with yesterday. ASSESSMENT AND PLAN: 1. Acute renal failure. The patient is nonoliguric. He is responding to IV diuretics. His last hemodialysis was on 09/07/2018. He has not required dialysis during this week. I am very hopeful that the patient will not require any further hemodialysis. If the patient does not require dialysis by the end of this week, I would have his tunneled dialysis catheter removed. 2. Chronic combined systolic and diastolic congestive heart failure. The patient was given a dose of Lasix. He made 3 liters of urine yesterday. Volume status is optimal. I would give him Lasix as needed. 3. Hypokalemia. It is secondary to diuresis. The patient was given potassium chloride 40 mEq by mouth times one dose. 4. Ischemic colitis. He is symptomatically getting better. He is tolerating the liquid diet. Continue oral ciprofloxacin and Flagyl. The rest of the management is as per surgical team.
[2018-09-12] MEDS: HYDROMORPHONE HCL 0.5 MG/ 0.5 ML SYRINGE (J1170 PER 1) IV PRN ×3 (00:14→06:24)
[2018-09-12 06:00] VITALS: BP 139/99
[2018-09-12 06:03] LABS: BASO # 0.1 10^3/uL (0.0-0.2); BASO % 0.9 % (0.0-1.0); EOS # 0.4 10^3/uL (0.0-0.50); EOS % 4.8 % (0.0-3.0); HEMATOCRIT 29.8 % (42.0-52.0); HEMOGLOBIN 9.1 g/dl (13.5-17.5); LYMPH # 1.3 10^3/uL (1.5-4.5); LYMPH % 15.5 % (24.0-44.0); MEAN CORPUSCULAR HEMOGLOBIN 28.3 pg (27.0-33.0); MEAN CORPUSCULAR HGB CONC 30.5 g/dl (32.0-36.5); MEAN CORPUSCULAR VOLUME 92.5 fl (80.0-96.0); MONO # 1.3 10^3/uL (0.0-0.8); MONO % 14.5 % (0.0-5.0); NEUTROPHILS # 5.5 10^3/uL (1.8-7.7); NEUTROPHILS % 63.3 % (36.0-66.0); PLATELET COUNT, AUTOMATED 304 10^3/uL (150-450); RED BLOOD COUNT 3.22 10^6/uL (4.30-6.10); WHITE BLOOD COUNT 8.7 10^3/uL (4.0-10.0)
[2018-09-12] MEDS: CIPROFLOXACIN 250 MG TAB PO SCH ×2 (06:23→18:43)
[2018-09-12] MEDS: ISOSORBIDE DIN. (ISORDIL) 30 MG TAB PO SCH ×3 (06:23→16:37)
[2018-09-12] MEDS: metroNIDAZOLE (FLAGYL) 500 MG TAB PO SCH ×3 (06:23→20:04)
[2018-09-12 06:28] LABS: ALBUMIN 2.1 GM/DL (3.2-5.2); CALCIUM LEVEL 8.3 MG/DL (8.5-10.1); CREATININE FOR GFR 1.41 MG/DL (0.70-1.30); GLOMERULAR FILTRATION RATE 56.6 (>56); PHOSPHORUS LEVEL 2.9 MG/DL (2.5-4.9); POTASSIUM SERUM 3.4 MEQ/L (3.5-5.1)
[2018-09-12] MEDS: HumaLOG INSULIN (NovoLOG) PER UNIT SC SCH ×3 (06:31→18:48)
[2018-09-12] MEDS ORDERED: HYDROMORPHONE HCL 0.5 MG/ 0.5 ML SYRINGE (J1170 PER 1) IV PRN (06:45)
[2018-09-12] MEDS: TIOTROPIUM INHALER/CAPSULE (SPIRIVA) INH SCH (07:58)
[2018-09-12] MEDS: SYMBICORT 160/4.5MCG INHALER 6GM INH SCH ×2 (07:58→21:00)
[2018-09-12] MEDS ORDERED: POTASSIUM CHLORIDE 10% LIQ 20 MEQ/15 ML UDC PO ONE (09:15)
[2018-09-12] MEDS: CARVedilol 6.25 MG TAB PO SCH ×2 (10:13→20:04)
[2018-09-12] MEDS: LACTOBACILLUS ACIDOPHILUS CAP (BACID) PO SCH ×2 (10:13→18:43)
[2018-09-12] MEDS: CLOPIDOGREL 75 MG TAB PO SCH (10:13)
[2018-09-12] MEDS: AMIODARONE 200 MG TAB (PACERONE) PO SCH (10:14)
[2018-09-12] MEDS: FLUoxetine 20 MG CAP PO SCH (10:14)
[2018-09-12] MEDS: PANTOPRAZOLE 40MG INJ (PROTONIX) (C9113) IV SCH (10:15)
[2018-09-12] MEDS: HYDROmorphone (DILAUDID) 4 MG TAB PO PRN ×3 (10:15→23:48)
[2018-09-12] MEDS: SODIUM CHLORIDE 0.9% INJ 10 ML SYR IV SCH (10:17)
[2018-09-12] MEDS: SANTYL OINT 30GM TOP SCH (10:18)
[2018-09-12] MEDS ORDERED: FUROSEMIDE 20 MG/2 ML VIAL (J1940) IV ONE (12:00)
[2018-09-12] MEDS ORDERED: HumaLOG INSULIN (NovoLOG) PER UNIT SC SCH ×2 (12:00→21:00)
[2018-09-12] MEDS: ONDANSETRON 4MG/2ML VIAL (J2405) IV PRN ×2 (12:20→23:11)
[2018-09-12 14:00] VITALS: BP 121/74
[2018-09-12] MEDS ORDERED: POTASSIUM CHLORIDE 10 MEQ SR TABLET PO ONE (15:00)
--- NOTE | 2018-09-12 16:19 | CR ---
PHONE NOTE: 09/12/2018 Chief complaint is abdominal pain. HISTORY OF PRESENT ILLNESS: Dae is a 48-year-old gentleman, who we are trying to transition to oral pain medication for chronic abdominal pain. Phone call today received from the unit telling me that despite Dilaudid by mouth he has been unable to eat. I called with the patient and he is informing me that Dilaudid is helping but he is having a hard time transitioning off of the intravenous (IV) medicine. States that he has not been able to eat today as the pain has been unbearable. Discussed using the one IV dose of Dilaudid that he has per day and my recommendation would be to start Nucynta 50 mg every 6 hours four times a day. Continue with Dilaudid 4 mg as needed for severe pain episodes. Hopefully, he can have the pain medicine Nucynta prior to receiving a meal. Spoke with his primary nurse with these recommendations.
[2018-09-12 16:33] VITALS: BP 114/68
[2018-09-12] MEDS: TAPENTADOL 50 MG TABLET (NUCYNTA) PO PRN (20:05)
--- NOTE | 2018-09-12 21:50 | IPN ---
DATE: 09/12/2018 Denies chest pain or shortness of breath. OBJECTIVE: VITAL SIGNS: Temperature 98.1, pulse 81, respiratory rate 16, oxygen saturation 98% on room air. GENERAL: He is a cachectic, man laying in bed. He does not appear to be in any acute distress, awake, alert, oriented times three, and conversant. HEENT: Moist mucous membranes. No elevation central venous pressure (CVP). CARDIOVASCULAR: S1, S2, regular. RESPIRATORY: Clear. ABDOMEN: Grossly obese but no significant distension. There is mild tenderness in the right upper quadrant. EXTREMITIES: Appear wasted. LABORATORY STUDIES: WBC 8.7, hemoglobin 9.1, platelet count is 304. Chemistry panel: Sodium 140, potassium 3.4, chloride 109, bicarbonate 21, BUN 15, creatinine 1.4. No new microbiology or imaging. ASSESSMENT AND PLAN: This is a 48-year-old man with acute renal failure. 1. Acute renal failure. Renal function is stable at this time. He has been started on diuretic. Nephrology's help is greatly appreciated. The plan is to potentially remove his dialysis catheter by the end of this week should his renal function remain stable and no require any further hemodialysis. 2. Combined systolic and diastolic congestive heart failure. He is receiving intermittent diuresis. He appears to fairly euvolemic today. We will defer further diuresis to nephrology. He is continued on carvedilol, Isordil. The patient has an automatic implantable cardioverter defibrillator (AICD). 3. Anemia, stable. 4. Pancreatitis. He is tolerating a low residue diet and appears to be doing quite well. He is tolerating all oral medications. Pain management's help greatly appreciated. We have changed him to oral pain medication with only IV for intermittent use. He appears to be doing well with this. We will likely be able to discontinue this in the coming days. 5. Ischemic colitis. He is doing well. He has been on Cipro and Flagyl. Today is day 14 of antibiotics. I suspect we can discontinue this at this time. He has remained quite stable. He is no longer requiring total parenteral nutrition (TPN). 6. Diarrhea. No complaints of this today. Continue to monitor. Gastrointestinal (GI) and PCR panel has been negative. 7. Insomnia. He has been started on Ambien. 8. [id number] myocardial infarction. His troponin did peak at 15 back in July 2018 and he did have further troponinemia at the and of August 2018. I think he would certainly benefit from close outpatient cardiology followup and stress testing, possibly even cardiac catheterization as he has suspected coronary artery disease. He is on a beta renita, Plavix. He is not on a statin but likely related to his recently abnormal liver function tests (LFTs). 9. Shock liver, resolved. 10. General deconditioning. Continue with physical therapy. He will likely require rehabilitation. 11. Diabetes. His fingersticks are well-controlled. 12. Metabolic acidosis, resolved. 13. Drug reaction related to hydralazine with rash. I documented this in his allergies and it has resolved. DISPOSITION: Pending placement. I suspect he can be discharged as soon as a bed is available. KENDELL
[2018-09-12 22:00] VITALS: BP 114/65
[2018-09-12] MEDS: zolPIDEM TARTRATE 5 MG TAB PO PRN (23:38)
[2018-09-13] MEDS: HYDROmorphone (DILAUDID) 4 MG TAB PO PRN ×2 (05:10→10:02)
[2018-09-13] MEDS: ISOSORBIDE DIN. (ISORDIL) 30 MG TAB PO SCH ×2 (05:11→12:39)
[2018-09-13] MEDS: CIPROFLOXACIN 250 MG TAB PO SCH (05:11)
[2018-09-13] MEDS: metroNIDAZOLE (FLAGYL) 500 MG TAB PO SCH (05:11)
[2018-09-13 06:00] VITALS: BP 129/82
[2018-09-13] MEDS: TIOTROPIUM INHALER/CAPSULE (SPIRIVA) INH SCH (08:00)
[2018-09-13] MEDS ORDERED: POTASSIUM CHLORIDE 10 MEQ SR TABLET PO ONE (08:45)
[2018-09-13] MEDS ORDERED: DARBEPOETIN 100 MCG/0.5 ML *NON-DIALYSIS* SYRINGE (J0881) SC SCH ×2 (09:00)
--- NOTE | 2018-09-13 09:00 | IPN ---
DATE OF SERVICE: 09/12/2018 SUBJECTIVE: The patient was seen and examined at the bedside today morning. He is afebrile, hemodynamically stable. Pain in abdomen is slowly getting better. He is nonoliguric at this point. Renal function is stable. He is not requiring hemodialysis since 09/07/2018. OBJECTIVE: VITAL SIGNS: Temperature is 98.1 degrees Fahrenheit, blood pressure 114/68, pulse is 81, respiratory rate of 16, saturating 98% on room air. INTAKE/OUTPUT: Urine output recorded as 950 mL yesterday and 300 mL so far today since overnight. Weight on the bed scale is not available. PHYSICAL EXAMINATION: GENERAL: The patient is awake, alert, oriented times three, laying in bed, in no apparent distress. HEAD AND NECK EXAM: Extraocular muscles intact. Pupils equally round and reactive to light. Mucous membranes are moist. Neck is supple. He has a right internal jugular (IJ) tunneled hemodialysis catheter, a left IJ peripherally inserted central catheter (PICC) line. CARDIOVASCULAR: S1, S2, regular rate. No edema of the bilateral lower extremities. RESPIRATORY: Chest is clear to auscultation bilaterally. Bilateral equal air entry. No rales or rhonchi. ABDOMEN: Abdomen is soft, mildly tender to deep palpation all over the abdomen. MUSCULOSKELETAL: No clubbing or cyanosis. Pulses are 2+. CENTRAL NERVOUS SYSTEM (MANAGEMENT PROFESSOR): No focal deficit. Power is 5/5 in all extremities. LAB REVIEW: CBC showed a WBC of 8.7, hemoglobin 9.1, platelets are 304. BMP showed sodium 140, potassium 3.4, chloride 109, bicarbonate 21, BUN 15, creatinine is 1.4, calcium 8.3, phosphorus 2.9. CURRENT INPATIENT MEDICATIONS: The patient's medications were all reviewed by me. I have changed his Aranesp to 100 mcg subcutaneous on - for hemoglobin more than 11. His ciprofloxacin is oral now. He was given a dose of potassium chloride 40 mEq times one dose in the morning. No other change in the medications today as compared with yesterday. ASSESSMENT AND PLAN: 1. Acute renal failure. The patient has not required hemodialysis since 09/07/2018. He is responding well to diuretics. Hopefully, by the end of this week I would have tunneled dialysis catheter removed. 2. Chronic combined systolic and diastolic congestive heart failure. The patient was given a dose of Lasix the day before yesterday. He made more than 3 liters of urine. I am going to give him a smaller dose of Lasix 20 mg IV times one dose today for volume management. No need of hemodialysis for volume management at this point. 3. Hypokalemia. It is secondary to diuresis. The patient was given a dose of potassium chloride 40 mEq by mouth times one dose and another dose in the afternoon as well. 4. Ischemic colitis. The patient continues to be on Cipro and Flagyl. He is starting to tolerate a liquid diet now. He still has a moderate amount of pain which is being controlled with opioids. 5. Acute pancreatitis. The patient still has diffuse abdominal pain. Total parenteral nutrition (TPN) has been stopped and as mentioned above he is tolerating the liquid diet now.
[2018-09-13 09:30] LABS: BASO # 0.1 10^3/uL (0.0-0.2); BASO % 0.8 % (0.0-1.0); EOS # 0.5 10^3/uL (0.0-0.50); EOS % 5.1 % (0.0-3.0); HEMATOCRIT 33.4 % (42.0-52.0); LYMPH # 1.7 10^3/uL (1.5-4.5); LYMPH % 17.7 % (24.0-44.0); MEAN CORPUSCULAR HEMOGLOBIN 27.9 pg (27.0-33.0); MEAN CORPUSCULAR HGB CONC 29.9 g/dl (32.0-36.5); MONO % 10.7 % (0.0-5.0); NEUTROPHILS # 6.2 10^3/uL (1.8-7.7); NEUTROPHILS % 65.1 % (36.0-66.0); PLATELET COUNT, AUTOMATED 368 10^3/uL (150-450); RED BLOOD COUNT 3.59 10^6/uL (4.30-6.10); WHITE BLOOD COUNT 9.5 10^3/uL (4.0-10.0)
[2018-09-13 09:47] LABS: ALBUMIN 2.4 GM/DL (3.2-5.2); CALCIUM LEVEL 8.5 MG/DL (8.5-10.1); CREATININE FOR GFR 1.55 MG/DL (0.70-1.30); GLOMERULAR FILTRATION RATE 50.8 (>56); PHOSPHORUS LEVEL 2.7 MG/DL (2.5-4.9); POTASSIUM SERUM 3.6 MEQ/L (3.5-5.1)
[2018-09-13] MEDS: HumaLOG INSULIN (NovoLOG) PER UNIT SC SCH ×2 (09:48→12:36)
[2018-09-13] MEDS: LACTOBACILLUS ACIDOPHILUS CAP (BACID) PO SCH (10:04)
[2018-09-13] MEDS: CARVedilol 6.25 MG TAB PO SCH (10:09)
[2018-09-13] MEDS: PANTOPRAZOLE 40MG INJ (PROTONIX) (C9113) IV SCH (10:10)
[2018-09-13] MEDS: CLOPIDOGREL 75 MG TAB PO SCH (10:10)
[2018-09-13] MEDS: FLUoxetine 20 MG CAP PO SCH (10:11)
[2018-09-13] MEDS: AMIODARONE 200 MG TAB (PACERONE) PO SCH (10:11)
[2018-09-13] MEDS: SODIUM CHLORIDE 0.9% INJ 10 ML SYR IV SCH (10:27)
[2018-09-13] MEDS: SANTYL OINT 30GM TOP SCH (10:28)
--- NOTE | 2018-09-13 11:50 | REP ---
CT ABDOMEN AND PELVIS WITHOUT IV OR ORAL CONTRAST: HISTORY: Persistent abdomen pain. Following pancreatitis. COMPARISON STUDY: September 03, 2018 is the most recent prior study. CT FINDINGS: There are small bilateral pleural effusions. There is compressive atelectasis in the left lower lobe with air bronchograms. These findings are unchanged from the September 03, 2018 study. Pacemaker leads are seen in the right heart as before. No hepatic or splenic abnormality is seen. There is no evidence of hydronephrosis. There is no evidence of free air. There is still considerable inflammatory edema in the peripancreatic and small bowel mesenteric soft tissues in this patient with pancreatitis. No new fluid collection is seen. In general, the originally noted peripancreatic fluid collections are significantly smaller. There is only a minimal amount of fluid in the right pericolic gutter. No other evidence of ascites. There is some fluid in the right inguinal hernia similar to previous studies. Normal appendix seen partially filled with previously administered oral contrast. IMPRESSION: Gradually decreasing peripancreatic fluid collections. Decreased amount of ascites. No new abnormal fluid collection seen. Some fluid persists in the right inguinal hernia. Electronically Signed by Everett Kent MD 09/13/2018 10:20 P
[2018-09-13] MEDS ORDERED: TORSEMIDE 10 MG TABLET PO SCH (12:00)
[2018-09-13 12:20] VITALS: BP 135/79
[2018-09-13 12:39] VITALS: BP 135/79
[2018-09-13] MEDS: TAPENTADOL 50 MG TABLET (NUCYNTA) PO PRN (12:40)
[2018-09-13] MEDS ORDERED: AMIO200T PO (12:41)
[2018-09-13] MEDS ORDERED: POTA10CA32 PO (12:41)
[2018-09-13] MEDS ORDERED: MORP1TAB19 PO (12:41)
[2018-09-13] MEDS ORDERED: TIOT18INH INH (12:41)
[2018-09-13] MEDS ORDERED: NUCY50TA19 PO (12:41)
[2018-09-13] MEDS ORDERED: CARV6.25 PO (12:41)
[2018-09-13] MEDS ORDERED: DARB10SYRN SC (12:41)
[2018-09-13] MEDS ORDERED: TORS10TA3 PO (12:41)
--- NOTE | 2018-09-13 20:34 | DS.PDOC ---
Discharge Summary General Date of Admission Jul 31, 2018 at 07:51 Date of Discharge 09/13/2018 Primary Care Physician: Ilana Garner Attending Physician: CONSTANZA CARDOZA MD Specialist/Consultants Involve Racheal Nobles, Jarrod Nolasco, Cyrus Crandall, Zahraa Hector, Kun Bundy, Raina Bradford, Discharge Summary PROCEDURES PERFORMED DURING STAY: Echocardiogram, insertion of right femoral catheter, Flexible Sigmoidoscopy, central line placement, arterial line placement, dialysis, total parenteral nutrition, endotracheal intubation ADMITTING DIAGNOSES: 1. SOB 2. Chest Pain 3. Leukocytosis 4. Pneumonia 5. Abdominal pain DISCHARGE DIAGNOSES: Metabolic acidosis Diabetes Acute kidney injury Decompensation Pancreatitis Pulmonary edema Multifocal pneumonia CHF COMPLICATIONS/CHIEF COMPLAINT: Ischemic Colitis. HISTORY OF PRESENT ILLNESS: Patient is a 47-year-old male with a past medical history significant for CABG and multiple stents as well as a history of CVA, insulin dependent diabetes, congestive heart failure, status post biventricular ICD placement. Who presented with presented with sudden onset of shortness of breath and chest pain. Due to his severe respiratory distress. He was intubated and extubated the following day. He had positive cardiac enzyme, without EKG evidence of NSTEMI or STEMI. Patient's ICD was interrogated. He did not have any arrhythmias leading up to this event or any shocks noted. He was admittted to the ICU. Hospital Course: He was admitted to the ICU, and started on empiric antibiotics, for what was presumed to be aspiration pneumonia. He was also started on insulin drip due to hyperglycemia with anion gap and metabolic acidosis, combined with respiratory acidosis secondary to lactic acidosis. During his hospital stay. Surgery was consulted for poor by mouth intake, abdominal pain, and pancreatis. GI was also consulted for similar abdominal pain, as well as one episode of blood red per rectum. Infectious disease was consulted for pancreatitis and de-escalation of patient's antibiotics. Nephrology was consulted for management of acute renal injury. Pain management was consulted for patient's abdominal pain. And cardiology was consulted for management of patient's cardiac function Sputum was positive for strep Agalactiae, his blood cultures showed no growth, GI panel was negative, C. difficile PCR analysis was negative. He receive several 6 units blood transfusion, and 2, albumin transfusions. He underwent several procedures including a flexible's sigmoidoscope, central line placement, arterial line placement and dialysis, endotracheal intubation. At one point he was receiving his nutrition through total parenteral nutrition d ue to abdominal pain. Throughout his hospital stay. He was managed and monitored very closely by neyda hugo, infectious disease, gastroenteritis, cardiology, nephrology pain management, household manager and hospitalist team. He was discharged in stable condition, with his presenting symptoms resolved. [facility] and pain management. He has follow-up with nephrology, cardiology, PCP and pain management. He was discharged in good spirits. He had no questions about his discharge plan. DISCHARGE MEDICATIONS: Please see below. ALLERGIES: Please see below. PHYSICAL EXAMINATION ON DISCHARGE: VITAL SIGNS: Please see below. GENERAL: The patient is awake, alert, oriented times three, laying in bed, Accompanied by his , he complained of a abdominal HEAD AND NECK EXAM: Extraocular muscles intact. Mucous membranes are moist. Neck is supple. He has a right internal jugular (IJ) tunneled hemodialysis catheter, a left IJ peripherally inserted central catheter (PICC) line. CARDIOVASCULAR: S1, S2, normal, no rubs or gallops RESPIRATORY: Chest is clear to auscultation bilaterally. ABDOMEN: Abdomen is soft, mildly tender to deep palpation all over the abdomen. LABORATORY DATA: Please see below. IMAGING: Abdominal CT 09/13/2018 Gradually decreasing peripancreatic fluid collections. Decreased amount of ascites. No new abnormal fluid collection seen. Some fluid persists in the right inguinal hernia Abdominal x-ray 09/03/18 Prominent distension to the sigmoid colon again noted and while there was no evidence for volvulus on recent CT dated 08/29/2018, calculus cannot definitively be excluded based on current examination. The remainder of the bowel gas pattern is nonspecific. Chest x-ray 08/27/18 Diffuse bilateral opacities suggesting pulmonary venous congestion and edema and scattered atelectasis as well as possible left effusion All other images are available on [employer] Echocardiogram: 09/03/18 Normal sinus rhythm with dual-chamber pacemaker. Appropriate atrial sensing and tracking with consistent ventricular paced. Paced QRS complexes with left bundle branch block QRS configuration. M-mode and two-dimensional echocardiography was performed with pulsed, continuous wave, color flow and tissue Doppler studies. Moderately dilated left ventricle with borderline hypertrophy. Paradoxical septal wall motion and apical akinesis related to right ventricular paced rhythm. Moderate to moderately severe impairment of global resting systolic function. Mildly dilated left atrium with impairment of LV diastolic function and elevated mean left atrial pressure. Right heart chamber sizes upper limits of normal with right ventricular hypokinesis and Doppler evidence of moderate pulmonary hypertension. Mildly dilated IVC with slightly reduced respiratory collapse suggestive of central venous pressure of approximately 10 - 15 mmHg. Slight aortic valvular sclerosis with adequate cusp separation but premature cusp closure in keeping with reduced forward stroke volume. Normal aortic root size. Normal-appearing mitral valvular apparatus with "low flow" appearance to leaflet excursion and at least mild to moderate mitral insufficiency. Normal appearing tricuspid valve with very mild insufficiency. No intracardiac mass or pericardial effusion. Echocardiogram: 07/31/19: 1. Study is of good technical quality. 2. Dilated left ventricle with segmental and global wall motion abnormalities as outlined above and overall estimated LVEF 15-20%. 3. No hemodynamically significant valvular disease. 4. Probably at least mildly elevated central venous pressure. 5. Unable to estimate pulmonary artery pressure. PROGNOSIS: Fair ACTIVITY: As tolerated with rehab DIET: As tolerated DISCHARGE PLAN: To [facility] with follow up plans with Cardiology, Nephrology, Pain Management and PCP DISPOSITION: To [facility]. DISCHARGE INSTRUCTIONS: 1. Continue rehab 2. Continue current pain medication with plan to de-escalate as pain improves ITEMS TO FOLLOWUP ON ON OUTPATIENT: 1. Pain Control 2. Rehab 3. Follow up with Specialist and PCP DISCHARGE CONDITION: Stable TIME SPENT ON DISCHARGE: Greater than 35 minutes. Vital Signs/I&Os Vital Signs Date Time Temp Pulse Resp B/P (MAP) Pulse Ox O2 Delivery O2 Flow Rate FiO2 09/13/18 13:10 18 09/13/18 12:39 135/79 09/13/18 12:20 77 09/13/18 06:00 98.5 95 09/09/18 09:29 95.0 I&O- Last 24 Hours up to 6 AM 09/13/18 06:00 Intake Total 1040 ml Output Total 3600 ml Balance -2560 ml Laboratory Data Labs 24H Laboratory Tests 2 09/12/18 20:06: Bedside Glucose (Misc Panel) 149H 09/13/18 06:13: Bedside Glucose (Misc Panel) 131H 09/13/18 09:11: Immature Granulocyte % (Auto) 0.6, White Blood Count 9.5, Red Blood Count 3.59L, Hemoglobin 10.0L, Hematocrit 33.4L, Mean Corpuscular Volume 93.0, Mean Corpuscular Hemoglobin 27.9, Mean Corpuscular Hemoglobin Concent 29.9L, Red Cell Distribution Width 15.5H, Platelet Count 368, Neutrophils (%) (Auto) 65.1, Lymphocytes (%) (Auto) 17.7L, Monocytes (%) (Auto) 10.7H, Eosinophils (%) (Auto) 5.1H, Basophils (%) (Auto) 0.8, Neutrophils # (Auto) 6.2, Lymphocytes # (Auto) 1.7, Monocytes # (Auto) 1.0H, Eosinophils # (Auto) 0.5, Basophils # (Auto) 0.1, Nucleated Red Blood Cells % (auto) 0.0, Blood Urea Nitrogen 16, Creatinine 1.55H, Sodium Level 140, Potassium Level 3.6, Chloride Level 108H, Carbon Dioxide Level 24, Anion Gap 8, Glomerular Filtration Rate 50.8L, Calcium Level 8.5, Phosphorus Level 2.7, Albumin 2.4L 09/13/18 11:41: Bedside Glucose (Misc Panel) 134H CBC/BMP Laboratory Tests 09/13/18 09:11 Red Blood Count 3.59 L, Mean Corpuscular Volume 93.0, Mean Corpuscular Hemoglobin 27.9, Mean Corpuscular Hemoglobin Concent 29.9 L, Red Cell Distribution Width 15.5 H, Neutrophils (%) (Auto) 65.1, Lymphocytes (%) (Auto) 17.7 L, Monocytes (%) (Auto) 10.7 H, Eosinophils (%) (Auto) 5.1 H, Basophils (%) (Auto) 0.8, Neutrophils # (Auto) 6.2, Lymphocytes # (Auto) 1.7, Monocytes # (Auto) 1.0 H, Eosinophils # (Auto) 0.5, Basophils # (Auto) 0.1, Anion Gap 8 FSBS Laboratory Tests Test 09/12/18 20:06 09/13/18 06:13 09/13/18 11:41 Range/Units Bedside Glucose (Misc Panel) 149 131 134 70-105 MG/DL Microbiology Microbiology 09/09/18 Clostridium difficile (PCR) - Final, Complete Discharge Medications Scheduled (Dexilant) 60 Mg Cap, 60 MG PO QHS, (Reported) Amiodarone HCl (Amiodarone HCl) 200 Mg Tab, 400 MG PO DAILY Amitriptyline HCl (Amitriptyline HCl) 10 Mg Tab, 20 MG PO QPM, (Reported) Aspirin (Aspir-81) 81 Mg Tab, 81 MG PO BID, (Reported) Carvedilol (Carvedilol) 6.25 Mg Tab, 6.25 MG PO BID Clopidogrel Bisulfate (Plavix) 75 Mg Tab, 75 MG PO DAILY, (Reported) Darbepoetin (Aranesp Albumin Free) 100 Mcg/0.5 Ml Inj, 100 MCG SC Th@09 Fluoxetine Hcl (Fluoxetine HCl) 40 Mg Cap, 40 MG PO DAILY, (Reported) Insulin Glargine (Lantus) 1 Units/0.01 Ml Susp, 40 UNITS SC DAILY, (Reported) Insulin Glargine (Lantus Solostar) 100 Unit/Ml Inj, 45 UNITS SC QPM, (Reported) IN EVENING Insulin Human Lispro (Humalog) 1 Units/0.01 Ml Inj, 0 SC ACHS, (Reported) PER SLIDING SCALE Lisinopril (Lisinopril) 2.5 Mg Tab, 2.5 MG PO DAILY, (Reported) Magnesium Oxide (Magnesium Oxide) 400 Mg Cap, 400 MG PO DAILY, (Reported) Metformin Hydrochloride (Metformin HCl) 500 Mg Tab, 1,000 MG PO BID, (Reported) Potassium Chloride (Potassium Chloride ER) 10 Meq Cap, 10 MEQ PO DAILY Rosuvastatin Calcium (Rosuvastatin Calcium) 20 Mg Tab, 20 MG PO DAILY, (Reported) Sacubitril/Valsartan (Entresto 24-26 mg) 1 Tab Tab, 1 TAB PO BID, (Reported) Tiotropium Cartwright Monohydrate (Spiriva Handihaler) 5 Inhalation/Inhaler Powd, 1 INHALATION INH DAILY@08 Torsemide (Torsemide) 10 Mg Tab, 10 MG PO DAILY Scheduled PRN Albuterol Sulfate (Ventolin Hfa) 108 Mcg/Act Aer, 2 PUFF INH Q4H PRN for SHORTNESS OF BREATH, (Reported) Hydroxyzine HCl (Hydroxyzine HCl) 10 Mg Tab, 10 MG PO TID PRN for ANXIETY, (Reported) Morphine Sulfate (Morphine Sulfate Cr) 15 Mg Tab, 15 MG PO Q8HP PRN for pain Nitroglycerin (Nitroglycerin) 0.4 Mg Sub, 0.4 MG SL NITRO PRN for CHEST PAIN, (Reported) Tapentadol Hydrochloride (Nucynta) 50 Mg Tab, 50 MG PO Q6HP PRN for PAIN Allergies Coded Allergies: Hydralazine (Verified Allergy, Mild, Rash, 09/11/18) GME ATTESTATION GME ATTESTATION My faculty preceptor for this patient encounter was physically present during the encounter and was fully available. All aspects of the patient interview, examination, medical decision making process, and medical care plan development were reviewed and approved by the faculty preceptor. The faculty preceptor is aware and concurs with the plan as stated in the body of this note and will attest to such by his/her cosignature. EAN KENNEDY DO Sep 13, 2018 19:01
[2018-09-14] MEDS ORDERED: POTASSIUM CHLORIDE 10% LIQ 20 MEQ/15 ML UDC PO SCH (12:00)
== END 2018-09-13 14:05 | DRG 280 ==
LOC: M ED 04:55 → EDBD 04:55 → M ED INP 07:51 → M ICU 08:59 → M PCU 08-16 14:57 → M ICU 08-27 06:11 → M MSPAV 08-29 12:53 → M PCU 09-01 12:32 → M MS5PR 09-02 16:27
PROVIDERS: ADMIT Internal Medicine Pulmonary Disease; ATTEND Internal Medicine
PROC: 02HV33Z Insertion of Infusion Device into Superior Vena Cava, Percutaneous Approach (ICD-10-PCS; principal; 2018-07-31)
PROC: 5A1955Z Respiratory Ventilation, Greater than 96 Consecutive Hours (ICD-10-PCS; 2018-07-31)
PROC: 03HY32Z Insertion of Monitoring Device into Upper Artery, Percutaneous Approach (ICD-10-PCS; 2018-08-02)
PROC: 06HM33Z Insertion of Infusion Device into Right Femoral Vein, Percutaneous Approach (ICD-10-PCS; 2018-08-03)
PROC: 0DJD8ZZ Inspection of Lower Intestinal Tract, Via Natural or Artificial Opening Endoscopic (ICD-10-PCS; 2018-08-10)
PROC: 30233N1 Transfusion of Nonautologous Red Blood Cells into Peripheral Vein, Percutaneous Approach (ICD-10-PCS; 2018-08-11)
PROC: 02HV33Z Insertion of Infusion Device into Superior Vena Cava, Percutaneous Approach (ICD-10-PCS; 2018-08-15)
PROC: 0JH63XZ Insertion of Tunneled Vascular Access Device into Chest Subcutaneous Tissue and Fascia, Percutaneous Approach (ICD-10-PCS; 2018-08-15)
PROC: 02HV33Z Insertion of Infusion Device into Superior Vena Cava, Percutaneous Approach (ICD-10-PCS; 2018-08-24)
PROC: 0JH63XZ Insertion of Tunneled Vascular Access Device into Chest Subcutaneous Tissue and Fascia, Percutaneous Approach (ICD-10-PCS; 2018-08-24)
PROC: 0DJD8ZZ Inspection of Lower Intestinal Tract, Via Natural or Artificial Opening Endoscopic (ICD-10-PCS; 2018-09-05)
DX: I21.4 Non-ST elevation (NSTEMI) myocardial infarction (principal); J69.0 Pneumonitis due to inhalation of food and vomit; I50.23 Acute on chronic systolic (congestive) heart failure; E11.10 Type 2 diabetes mellitus with ketoacidosis without coma; J96.90 Respiratory failure, unspecified, unspecified whether with hypoxia or hypercapnia; K72.00 Acute and subacute hepatic failure without coma; R57.0 Cardiogenic shock; R65.21 Severe sepsis with septic shock; G92 Toxic encephalopathy; E43 Unspecified severe protein-calorie malnutrition; K85.90 Acute pancreatitis without necrosis or infection, unspecified; I49.01 Ventricular fibrillation; A41.9 Sepsis, unspecified organism; K55.039 Acute (reversible) ischemia of large intestine, extent unspecified; E87.4 Mixed disorder of acid-base balance; N17.9 Acute kidney failure, unspecified; I47.2 Ventricular tachycardia; G93.1 Anoxic brain damage, not elsewhere classified; K92.2 Gastrointestinal hemorrhage, unspecified; J44.1 Chronic obstructive pulmonary disease with (acute) exacerbation; K56.7 Ileus, unspecified; K55.1 Chronic vascular disorders of intestine; E87.2 Acidosis; E87.1 Hypo-osmolality and hyponatremia; R06.03 Acute respiratory distress; Z95.1 Presence of aortocoronary bypass graft; Z79.899 Other long term (current) drug therapy; Z79.82 Long term (current) use of aspirin; Z79.4 Long term (current) use of insulin; Z88.8 Allergy status to other drugs, medicaments and biological substances; I11.0 Hypertensive heart disease with heart failure; E11.51 Type 2 diabetes mellitus with diabetic peripheral angiopathy without gangrene; E11.40 Type 2 diabetes mellitus with diabetic neuropathy, unspecified; G43.909 Migraine, unspecified, not intractable, without status migrainosus; I25.10 Atherosclerotic heart disease of native coronary artery without angina pectoris; N40.0 Benign prostatic hyperplasia without lower urinary tract symptoms; E78.5 Hyperlipidemia, unspecified; Z86.73 Personal history of transient ischemic attack (TIA), and cerebral infarction without residual deficits; F17.210 Nicotine dependence, cigarettes, uncomplicated; I25.2 Old myocardial infarction; Z66 Do not resuscitate; I44.7 Left bundle-branch block, unspecified; M19.90 Unspecified osteoarthritis, unspecified site; E83.51 Hypocalcemia; D64.9 Anemia, unspecified; Z95.2 Presence of prosthetic heart valve; L50.9 Urticaria, unspecified; E83.42 Hypomagnesemia; G47.00 Insomnia, unspecified

== ENCOUNTER → 2018-08-08 | Outpatient (CLI) | payer MEDICARE, MEDICAID ==
[~2018-08-08] MED LIST changes: +ENTR1TAB PO; +ISOVUE-370 76% 100ML VIAL (Q9967) As Ordered ONE; +MAGN400C PO
--- NOTE | 2018-08-13 16:16 | IPN ---
DATE OF SERVICE: 08/13/2018 TIME: 3:30 p.m. SUBJECTIVE: Patient could not answer questions as he was lethargic. PHYSICAL EXAMINATION: Central line in situ in the neck. Midline sternal scar present. IV in situ left pectoral region. Respiratory expansion effort was fair. Mild wheezes. No crackles. Jugular venous pulsations at 5 cm. Hemodialysis in progress at the bedside. First heart diminished. Second heart sound normal. No S3, S4 or murmurs appreciated. Abdomen was soft and nontender with normal bowel sounds. No lower extremity edema. Most recent vital signs showed temperature 97.5, pulse 78, respiratory 18, blood pressure 127/64 by noninvasive blood pressure cuff and 142/62 by arterial line, oxygen saturation 96% on room air. Laboratory work 08/13/2018 was reviewed: Platelets 272, hemoglobin 7.9, hematocrit 23.7, sodium 138, potassium 3.7, chloride 104, CO2 23, BUN 51, creatinine 2.44, glucose 365, magnesium 2.1, albumin 1.2. ASSESSMENT AND RECOMMENDATIONS: 1. NSTEMI. Unclear whether the NSTEMI is a primary coronary plaque vent or if this is a secondary phenomenon due to the patient's cardiogenic shock and cardiac arrest prior to admission. Aspirin will be decreased down to 81 mg once daily. Continue Plavix 75 mg daily. He will be placed on Carvedilol. I will not place him on LORI inhibitor or ARB at this time because he has acute renal failure and is presently on hemodialysis and I do not want to impair the ability of his kidneys to recover following acute kidney injury. 2. Coronary artery disease, status-post multiple interventions, status-post CABG. As per NSTEMI category above. No statins at the present time as the patient is receiving IV fat emulsion. 3. Chronic systolic and diastolic heart failure. He is not on diuretics because he is on hemodialysis. He appears to be euvolemic at the present time. No LORI inhibitor or ARB because of acute kidney injury. Instead I will place him on a combination of isosorbide dinitrate and hydralazine. I will also place him on Carvedilol. 4. Systemic hypertension, uncontrolled systolic blood pressure. I will place him on Isosorbide dinitrate, hydralazine, and Carvedilol. 5. Biventricular ICD in situ. I turned the ICD tachy therapy back on as the patient's DO NOT RESUSCITATE has been rescinded. 6. Left bundle branch block. Status-post biventricular ICD in situ. At present he is sinus rhythm, P- synchronous paced rhythm. 7. Ventricular sedation. Patient has ICD in situ. He is on amiodarone. I have decreased amiodarone down to 400 mg once daily which will be his chronic maintenance dose.
--- NOTE | 2018-08-14 18:08 | IPN ---
DATE: 08/14/2018 SUBJECTIVE: The patient is seen at bedside, he is getting his arterial line removed from his axilla today. Per the nursing staff the patient has started making some urine, and the plan is to stop CVVHD tonight. He is awake and currently denies any fevers, chills, nausea, or vomiting. Per nursing he has been afebrile overnight. OBJECTIVE: Vitals: Temperature 97.2, pulse 75 and regular, respiratory rate 28, blood pressure 113/50, 97% on room air. GENERAL: Awake and alert, in no acute distress. HEENT: Mucous membranes are moist. Head is atraumatic, normocephalic. Eyes are clear. Lungs: Clear to auscultation bilaterally, no wheezes, rhonchi or rales. Heart: Regular rate and rhythm, there is no wheezes, rhonchi or rales. Abdomen: Normoactive bowel sounds, soft and nontender to palpation. Extremities: No clubbing, cyanosis or edema. Patient is missing the toenail of his left second toe. Pulses: Posterior tibialis pulses are 2+ bilaterally. Dorsalis pedis pulse on the left is 2+, dorsalis pedis pulse on the right is 1 and thready. Skin: No rashes or lesions are noted. IV sites are without erythema or drainage. LABORATORY DATA: CBC: WBC 17.90, hemoglobin 8.3, hematocrit 25.1, platelets 311. Chemistry: Sodium 136, potassium 4.2, chloride 104, carbon dioxide 22, BUN 44, creatinine 2.31, fasting glucose 344, calcium 7.5, calcium 4.5, phosphorus 2.5, magnesium 2.1, total bili 1.4, AST is 60, ALT 116, alkaline phosphatase 188, lactate dehydrogenase 486, total CK 42, total protein 4.6, albumin 1.2, triglycerides 282, cholesterol 106. Stool occult positive for blood. GI panel negative. Blood cultures times two negative after 72 hours. ASSESSMENT/PLAN: This is a 47-year-old male who was initially admitted on 08/01/2018 with NSTEMI and significant respiratory distress requiring intubation. He then developed acute pancreatitis with worsening leukocytosis. He has currently completed 14 days of empiric antibiotic therapy, so we have discontinued his Zosyn. We will continue to follow. My faculty preceptor for this patient encounter was physically present during the encounter and was fully available. All aspects of the patient interview, examination, medical decision making process, and medical care plan development were reviewed and approved by the faculty preceptor. The faculty preceptor is aware and concurs with the plan as stated in the body of this note and will attest to such by his/her cosignature. KENDELL
--- NOTE | 2018-08-16 13:31 | IPN ---
DATE OF VISIT: 08/16/2018 Mr. Shipman is seen this morning on his bedside. He is sitting in the stretcher chair and wants to go back to the bed as his tail bone hurts. He denies any nausea or vomiting and still on full liquid diet. He has abdominal bloating. There is no fever or chills. PHYSICAL EXAMINATION: Temperature 98.9 degrees Fahrenheit, heart rate 90 per minute and respiratory rate 16 per minute. Blood pressure 136/78 mmHg and oxygen saturation 97% on room air. His head is atraumatic. There is small ischemic area on right earlobe. Neck veins are not abnormally distended while he is at 75 degrees in the stretcher chair. Lungs have slightly diminished breath sounds with poor inspiratory effort. His heart sounds are regular. Abdomen is soft, somewhat distended and bowel sounds are present. Extremities have no cyanosis or clubbing. Lower extremity edema is now 2+. Neurologically he is awake, alert and oriented times three. Today's labs show a WBC count of 17.3, hemoglobin 8.5 and hematocrit 26.0. Platelets 437. Sodium 137, potassium 4.8, CO2 21, BUN 79 and creatinine 4.74. Glucose 146 and calcium 7.9. AST is down to 52, ALT 86 and alkaline phosphatase 197. Serum albumin is only 1.3. PROBLEMS: 1. Oliguric acute renal failure. The patient remains oliguric and has been dialysis dependent. He was dialyzed with continuous veno-venous hemodialysis (CVVHD) for more than a week, however, he is now hemodynamically stable. CVVHD was stopped about 36 hours ago. Yesterday he had a Perma-Cath placed in anticipation for dialysis. We plan to dialyze him this afternoon. 2. Protein calorie malnutrition. The patient has not been fed for more than 2 weeks. He is on full liquid diet. I would suggest to add Nepro to his nutrition if possible. He has acute pancreatitis due to which he is not tolerating feeding very well. I would also recommend an abdominal ultrasound to look for ascites. A repeat CAT scan of abdomen and pelvis would also be a good idea to look for his pancreatic situation. 3. Anemia. The patient was transfused 1 unit of packed RBCs yesterday and anemia improved. There is no emergent indication for further transfusion today. 4. Acute pancreatitis. The patient is being managed by the hospitalist service now. 5. Hypertension. Blood pressure is reasonably well-controlled on current medications.
== END ==
LOC: M RAD 13:30
PROVIDERS: ATTEND Surgery Vascular Surgery
DX: I70.90 Unspecified atherosclerosis (principal); I73.9 Peripheral vascular disease, unspecified

== ENCOUNTER → 2018-09-15 | Outpatient (REF) ==
[~2018-09-15] MED LIST changes: +AMIO200T PO; +CARV6.25 PO; +DARB10SYRN SC; -ISOVUE-370 76% 100ML VIAL (Q9967) As Ordered ONE; +MORP1TAB19 PO; +NUCY50TA19 PO; +POTA10CA32 PO; +TIOT18INH INH; +TORS10TA3 PO
[2018-09-15 07:09] LABS: BASO # 0.1 10^3/uL (0.0-0.2); EOS # 0.7 10^3/uL (0.0-0.50); EOS % 5.6 % (0.0-3.0); HEMATOCRIT 33.9 % (42.0-52.0); HEMOGLOBIN 10.5 g/dl (13.5-17.5); LYMPH # 1.6 10^3/uL (1.5-4.5); LYMPH % 13.5 % (24.0-44.0); MEAN CORPUSCULAR HEMOGLOBIN 28.2 pg (27.0-33.0); MEAN CORPUSCULAR VOLUME 91.1 fl (80.0-96.0); MONO # 1.3 10^3/uL (0.0-0.8); MONO % 10.9 % (0.0-5.0); NEUTROPHILS # 8.2 10^3/uL (1.8-7.7); NEUTROPHILS % 68.5 % (36.0-66.0); PLATELET COUNT, AUTOMATED 308 10^3/uL (150-450); RED BLOOD COUNT 3.72 10^6/uL (4.30-6.10)
[2018-09-15 07:31] LABS: ALBUMIN 2.2 GM/DL (3.2-5.2); BLOOD UREA NITROGEN 12 MG/DL (7-18); CALCIUM LEVEL 7.6 MG/DL (8.5-10.1); CARBON DIOXIDE LEVEL 23 MEQ/L (21-32); CHLORIDE LEVEL 111 MEQ/L (98-107); CREATININE FOR GFR 1.29 MG/DL (0.70-1.30); GLOMERULAR FILTRATION RATE > 60.0 (>56); GLUCOSE, FASTING 69 MG/DL (70-100); MAGNESIUM LEVEL 1.2 MG/DL (1.8-2.4); PHOSPHORUS LEVEL 3.2 MG/DL (2.5-4.9); SODIUM LEVEL 142 MEQ/L (136-145); URIC ACID 4.8 MG/DL (3.5-7.2)
[2018-09-17 10:09] LABS: PTH INTACT 29.3 PG/ML (18.5-88.0); TOTAL 25(OH) VITAMIN D 13.2 NG/ML (30.0-100.0)
== END ==
LOC: SKLAB5 09:19
PROVIDERS: ATTEND Family Medicine
DX: N18.3 Chronic kidney disease, stage 3 (moderate) (principal); K85.90 Acute pancreatitis without necrosis or infection, unspecified

== ENCOUNTER → 2018-09-19 | Outpatient (REF) ==
[~2018-09-19] MED LIST changes: +ACET1TAB55 PO; +ACET650S3 PR; +AMIO400T PO; +APAP325T4 PO; +ASPI81CH PO; +CLOP75TA2 PO; +CORE6.25 PO; +DULC10SU2 PR; +ENEMENE4 PR; +ENSU-12 PO; +MAGN400T2 PO; +METF-729 PO; +MILK120011 PO; +MORP-38 PO; +MS C15TA8 PO; +NITR4TASL SL; +PROC25SU24 PR; +SPIR1CAP INH; +SUCR1TA PO; +VITMTA PO; +ZOFR4TAB16 PO
[2018-09-19 14:05] LABS: ALBUMIN 2.3 GM/DL (3.2-5.2); BLOOD UREA NITROGEN 10 MG/DL (7-18); CALCIUM LEVEL 8.7 MG/DL (8.5-10.1); CARBON DIOXIDE LEVEL 23 MEQ/L (21-32); CHLORIDE LEVEL 109 MEQ/L (98-107); CREATININE FOR GFR 0.83 MG/DL (0.70-1.30); GLOMERULAR FILTRATION RATE > 60.0 (>56); GLUCOSE, FASTING 77 MG/DL (70-100); PHOSPHORUS LEVEL 2.9 MG/DL (2.5-4.9); POTASSIUM SERUM 4.3 MEQ/L (3.5-5.1); SODIUM LEVEL 139 MEQ/L (136-145)
== END ==
LOC: SKLAB5 12:33
PROVIDERS: ATTEND Family Medicine
DX: N17.9 Acute kidney failure, unspecified (principal)

== ENCOUNTER → 2018-09-24 | Outpatient (REF) ==
[~2018-09-24] MED LIST changes: -ACET1TAB55 PO; -ACET650S3 PR; -AMIO400T PO; -APAP325T4 PO; -ASPI81CH PO; -CLOP75TA2 PO; -CORE6.25 PO; -DULC10SU2 PR; -ENEMENE4 PR; -ENSU-12 PO; -MAGN400T2 PO; -METF-729 PO; -MILK120011 PO; -MORP-38 PO; -MS C15TA8 PO; -NITR4TASL SL; -PROC25SU24 PR; -SPIR1CAP INH; -SUCR1TA PO; -VITMTA PO; -ZOFR4TAB16 PO
--- NOTE | 2018-09-24 10:15 | ECGEPIP ---
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 Electronically Signed On 09-24-2018 10:14:37 EST by Vj Giordano
[2018-09-24 10:28] LABS: HEMATOCRIT 36.2 % (42.0-52.0); HEMOGLOBIN 11.2 g/dl (13.5-17.5); MEAN CORPUSCULAR HEMOGLOBIN 27.9 pg (27.0-33.0); MEAN CORPUSCULAR HGB CONC 30.9 g/dl (32.0-36.5); PLATELET COUNT, AUTOMATED 326 10^3/uL (150-450); RED BLOOD COUNT 4.02 10^6/uL (4.30-6.10)
[2018-09-24 10:53] LABS: BLOOD UREA NITROGEN 10 MG/DL (7-18); CALCIUM LEVEL 9.1 MG/DL (8.5-10.1); CARBON DIOXIDE LEVEL 24 MEQ/L (21-32); CHLORIDE LEVEL 107 MEQ/L (98-107); CREATININE FOR GFR 1.07 MG/DL (0.70-1.30); GLOMERULAR FILTRATION RATE > 60.0 (>56); GLUCOSE, FASTING 88 MG/DL (70-100); POTASSIUM SERUM 4.5 MEQ/L (3.5-5.1); SODIUM LEVEL 139 MEQ/L (136-145); TROPONIN I < 0.02 NG/ML (< 0.10)
--- NOTE | 2018-09-24 16:29 | ECGEPIP ---
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 Electronically Signed On 09-24-2018 16:29:36 EST by Vj Giordano
== END ==
LOC: SKLAB5 08:20
PROVIDERS: ATTEND Family Medicine
DX: R07.89 Other chest pain (principal)

== ENCOUNTER 2018-09-27 11:51 | Emergency (ER) | payer MEDICARE, MEDICAID ==
[~2018-09-27] VITALS: Ht 175.3 cm; Wt 68.2 kg
[~2018-09-27 11:51] MED LIST changes: -ACET650S3 PR; -AMIO400T PO; -APAP325T4 PO; -ASPI81CH PO; -CLOP75TA2 PO; -DULC10SU2 PR; -ENEMENE4 PR; -ENSU-12 PO; -MAGN400T2 PO; -METF-729 PO; -MILK120011 PO; -MORP-38 PO; -PROC25SU24 PR; -VITMTA PO; -ZOFR4TAB16 PO
[2018-09-27] MEDS ORDERED: ACETAMINOPHEN TAB 650MG DOSE (2X325MG) PO ONE (12:30)
[2018-09-27 12:39] LABS: HEMATOCRIT 32.6 % (42.0-52.0); MEAN CORPUSCULAR HEMOGLOBIN 27.3 pg (27.0-33.0); MEAN CORPUSCULAR HGB CONC 30.7 g/dl (32.0-36.5); MEAN CORPUSCULAR VOLUME 89.1 fl (80.0-96.0); PLATELET COUNT, AUTOMATED 270 10^3/uL (150-450); RED BLOOD COUNT 3.66 10^6/uL (4.30-6.10); WHITE BLOOD COUNT 6.1 10^3/uL (4.0-10.0)
[2018-09-27 12:58] LABS: BLOOD UREA NITROGEN 12 MG/DL (7-18); CALCIUM LEVEL 8.5 MG/DL (8.5-10.1); CARBON DIOXIDE LEVEL 23 MEQ/L (21-32); CHLORIDE LEVEL 107 MEQ/L (98-107); CREATININE FOR GFR 1.17 MG/DL (0.70-1.30); GLOMERULAR FILTRATION RATE > 60.0 (>56); GLUCOSE, FASTING 140 MG/DL (70-100); POTASSIUM SERUM 4.3 MEQ/L (3.5-5.1); SODIUM LEVEL 138 MEQ/L (136-145)
[2018-09-27] MEDS ORDERED: MORPHINE 15 MG SA TAB PO ONE (13:15)
[2018-09-27] MEDS ORDERED: FLUO40CA PO (13:50)
[2018-09-27] MEDS ORDERED: DULC10SU2 PR (13:50)
[2018-09-27] MEDS ORDERED: VITMTA PO (13:50)
[2018-09-27] MEDS ORDERED: HYDR-643 PO (13:50)
[2018-09-27] MEDS ORDERED: DEXI60CA2 PO (13:50)
[2018-09-27] MEDS ORDERED: CLOP75TA2 PO (13:50)
[2018-09-27] MEDS ORDERED: MAGN400T2 PO (13:50)
[2018-09-27] MEDS ORDERED: NITR0.4S14 SL (13:50)
[2018-09-27] MEDS ORDERED: METF-729 PO (13:50)
[2018-09-27] MEDS ORDERED: ENEMENE4 PR (13:50)
[2018-09-27] MEDS ORDERED: ZOFR4TAB16 PO (13:50)
[2018-09-27] MEDS ORDERED: MILK120011 PO (13:50)
[2018-09-27] MEDS ORDERED: ACET650S3 PR (13:50)
[2018-09-27] MEDS ORDERED: APAP325T4 PO (13:50)
[2018-09-27] MEDS ORDERED: ENSU-12 PO (13:50)
[2018-09-27] MEDS ORDERED: CARV6.25 PO (13:50)
[2018-09-27] MEDS ORDERED: ASPI81CH PO (13:50)
[2018-09-27] MEDS ORDERED: TIOT18INH INH (13:50)
[2018-09-27] MEDS ORDERED: VENTAER INH (13:50)
[2018-09-27] MEDS ORDERED: AMIO400T PO (13:50)
[2018-09-27] MEDS ORDERED: MORP-38 PO (13:50)
[2018-09-27] MEDS ORDERED: PROC25SU24 PR (13:50)
[2018-09-27] MEDS ORDERED: NUCY50TA19 PO (13:50)
[2018-09-27] MEDS ORDERED: ROSU20TA4 PO (13:50)
--- NOTE | 2018-09-27 15:13 | REP ---
BILATERAL LOWER EXTREMITY ARTERIAL DOPPLER ULTRASOUND: 09/27/2018 CLINICAL HISTORY: Peripheral vascular disease. Poor pulses, cool temperature and pain in feet, right greater than left. FINDINGS: There are no prior pertinent studies. Standard duplex techniques were used to evaluate both lower extremities. Ankle-brachial index on the right is 1 with brachial pulse 110, dorsalis pedis 100, FINISH PATCHER 118. The SURY on the left is 1 with brachial pulse 104, dorsalis pedis 120, and FINISH PATCHER 100. RIGHT: PEAK SYSTOLIC VELOCITY: PHASICITY:CIVIL CAD DESIGNER 78.4 cm/s triphasicProfunda 101.6 cm/s biphasicSFA proximal 115 cm/s triphasicSFA mid 79.8 cm/s triphasicSFA distal 78.1 cm/s triphasicPopliteal 41.2 cm/s triphasicATA proximal 40.8 cm/s triphasicTibioperoneal trunk 53.3 cm/s triphasicPTA proximal 60.8 cm/s triphasicPTA distal 62.9 cm/s triphasicATA distal 17.5 cm/s biphasic LEFT LOWER EXTREMITY: PEAK SYSTOLIC VELOCITY: PHASICITY:CIVIL CAD DESIGNER 103.4 cm/s triphasicProfunda 54.7 cm/s triphasicSFA proximal 71.5 cm/s triphasicSFA mid 86.3 cm/s triphasicSFA distal 52.4 cm/s triphasicPopliteal 54.9 cm/s triphasicATA proximal 35.4 cm/s biphasicTibioperoneal trunk 49.2 cm/s biphasicPTA proximal 63.6 cm/s biphasicPTA distal 55.5 cm/s triphasicATA distal 34.1 cm/s biphasic IMPRESSION: 1. There is mild atherosclerotic plaque seen bilaterally. There is no significant stenosis by Doppler velocity and waveform analysis in either lower extremity. Electronically Signed by Gavin Valentin MD 09/27/2018 07:34 P
[2018-09-27 16:32] VITALS: BP 106/58
== END 2018-09-27 16:34 | disposition home or self-care (01) ==
LOC: EDBD 11:51 → M ED 11:51
DX: M79.604 Pain in right leg (principal); M79.605 Pain in left leg; I70.293 Other atherosclerosis of native arteries of extremities, bilateral legs; E11.9 Type 2 diabetes mellitus without complications; F90.9 Attention-deficit hyperactivity disorder, unspecified type; I50.9 Heart failure, unspecified; I10 Essential (primary) hypertension; E78.5 Hyperlipidemia, unspecified; J44.9 Chronic obstructive pulmonary disease, unspecified; K21.9 Gastro-esophageal reflux disease without esophagitis; N40.0 Benign prostatic hyperplasia without lower urinary tract symptoms; Z87.891 Personal history of nicotine dependence; Z79.82 Long term (current) use of aspirin; Z79.84 Long term (current) use of oral hypoglycemic drugs; Z79.899 Other long term (current) drug therapy; Z88.8 Allergy status to other drugs, medicaments and biological substances

== ENCOUNTER → 2018-09-27 | Outpatient (REF) ==
[~2018-09-27] MED LIST changes: +ACET650S3 PR; +AMIO400T PO; +APAP325T4 PO; +ASPI81CH PO; +CLOP75TA2 PO; +DULC10SU2 PR; +ENEMENE4 PR; +ENSU-12 PO; +MAGN400T2 PO; +METF-729 PO; +MILK120011 PO; +MORP-38 PO; +PROC25SU24 PR; +VITMTA PO; +ZOFR4TAB16 PO
[2018-09-27 09:33] LABS: BASO # 0.1 10^3/uL (0.0-0.2); BASO % 1.2 % (0.0-1.0); EOS # 0.3 10^3/uL (0.0-0.50); EOS % 4.6 % (0.0-3.0); HEMATOCRIT 34.1 % (42.0-52.0); HEMOGLOBIN 10.4 g/dl (13.5-17.5); LYMPH # 1.4 10^3/uL (1.5-4.5); MEAN CORPUSCULAR HEMOGLOBIN 27.3 pg (27.0-33.0); MEAN CORPUSCULAR HGB CONC 30.5 g/dl (32.0-36.5); MEAN CORPUSCULAR VOLUME 89.5 fl (80.0-96.0); NEUTROPHILS # 3.9 10^3/uL (1.8-7.7); NEUTROPHILS % 57.6 % (36.0-66.0); PLATELET COUNT, AUTOMATED 279 10^3/uL (150-450); RED BLOOD COUNT 3.81 10^6/uL (4.30-6.10); WHITE BLOOD COUNT 6.7 10^3/uL (4.0-10.0)
[2018-09-27 09:40] LABS: ALBUMIN 2.3 GM/DL (3.2-5.2); BLOOD UREA NITROGEN 13 MG/DL (7-18); CALCIUM LEVEL 8.7 MG/DL (8.5-10.1); CARBON DIOXIDE LEVEL 28 MEQ/L (21-32); CHLORIDE LEVEL 105 MEQ/L (98-107); CREATININE FOR GFR 1.13 MG/DL (0.70-1.30); GLOMERULAR FILTRATION RATE > 60.0 (>56); GLUCOSE, FASTING 79 MG/DL (70-100); MAGNESIUM LEVEL 1.7 MG/DL (1.8-2.4); PHOSPHORUS LEVEL 3.2 MG/DL (2.5-4.9); POTASSIUM SERUM 4.7 MEQ/L (3.5-5.1); SODIUM LEVEL 139 MEQ/L (136-145)
[2018-09-27 13:42] LABS: APPEARANCE, URINE CLEAR (CLEAR); BACTERIA, URINE AUTO NEGATIVE (NEGATIVE); BILIRUBIN, URINE AUTO NEGATIVE (NEGATIVE); BLOOD, URINE BLOOD NEGATIVE (NEGATIVE); COLOR, URINE YELLOW (YELLOW); GLUCOSE, URINE (UA) AUTO NEGATIVE (NEGATIVE); KETONE, URINE AUTO NEGATIVE (NEGATIVE); LEUKOCYTE ESTERASE, URINE AUTO NEGATIVE (NEGATIVE); MUCUS, URINE SMALL (NEGATIVE); NITRITE, URINE AUTO NEGATIVE (NEGATIVE); PROTEIN, URINE AUTO NEGATIVE (NEGATIVE); RBC, URINE AUTO 2 /HPF (0-3); SPECIFIC GRAVITY URINE AUTO 1.011 (1.002-1.035); SQUAMOUS EPITHELIAL CELL UR AU 0 /HPF (0-6); UROBILINOGEN, URINE AUTO 0.2 mg/dL (0.0-2.0); WBC, URINE AUTO 2 /HPF (0-3)
== END ==
LOC: SKLAB5 08:21
PROVIDERS: ATTEND Family Medicine
DX: I50.9 Heart failure, unspecified (principal); N17.9 Acute kidney failure, unspecified

== ENCOUNTER → 2018-10-01 | Outpatient (REF) ==
[~2018-10-01] MED LIST changes: +ACET650S3 PR; +AMIO400T PO; +APAP325T4 PO; +ASPI81CH PO; +CLOP75TA2 PO; +DULC10SU2 PR; +ENEMENE4 PR; +ENSU-12 PO; +MAGN400T2 PO; +METF-729 PO; +MILK120011 PO; +MORP-38 PO; +PROC25SU24 PR; +VITMTA PO; +ZOFR4TAB16 PO
[2018-10-01 12:46] LABS: HEMATOCRIT 38.4 % (42.0-52.0); HEMOGLOBIN 11.9 g/dl (13.5-17.5); MEAN CORPUSCULAR HEMOGLOBIN 26.8 pg (27.0-33.0); MEAN CORPUSCULAR VOLUME 86.5 fl (80.0-96.0); PLATELET COUNT, AUTOMATED 289 10^3/uL (150-450); RED BLOOD COUNT 4.44 10^6/uL (4.30-6.10); WHITE BLOOD COUNT 9.3 10^3/uL (4.0-10.0)
[2018-10-01 13:16] LABS: ALBUMIN 2.6 GM/DL (3.2-5.2); ALT/SGPT 12 U/L (12-78); AMYLASE 37 U/L (25-115); BILIRUBIN,TOTAL 0.5 MG/DL (0.2-1.0); BLOOD UREA NITROGEN 14 MG/DL (7-18); CARBON DIOXIDE LEVEL 22 MEQ/L (21-32); CHLORIDE LEVEL 104 MEQ/L (98-107); CREATININE FOR GFR 0.97 MG/DL (0.70-1.30); GLOMERULAR FILTRATION RATE > 60.0 (>56); GLUCOSE, FASTING 121 MG/DL (70-100); MAGNESIUM LEVEL 1.7 MG/DL (1.8-2.4); POTASSIUM SERUM 4.5 MEQ/L (3.5-5.1); SODIUM LEVEL 137 MEQ/L (136-145); TOTAL PROTEIN 6.3 GM/DL (6.4-8.2)
== END ==
LOC: SKLAB5 12:18
PROVIDERS: ATTEND Family Medicine
DX: R10.13 Epigastric pain (principal); R11.0 Nausea

== ENCOUNTER → 2018-10-02 | Outpatient (REF) ==
[~2018-10-02] MED LIST changes: +ACET1TAB55 PO; +CORE6.25 PO; +MS C15TA8 PO; +NITR4TASL SL; +SPIR1CAP INH; +SUCR1TA PO
== END ==
LOC: SKLAB5 07:31
PROVIDERS: ATTEND Family Medicine
DX: Z22.322 Carrier or suspected carrier of Methicillin resistant Staphylococcus aureus (principal)

== ENCOUNTER → 2018-10-03 | Outpatient (CLI) | payer MEDICARE, MEDICAID ==
--- NOTE | 2018-10-03 10:59 | REP ---
Clinical: Epigastric and right upper quadrant abdominal pain. Technique: Hamilton scale ultrasound using curved array transducer. Findings: The gallbladder is moderately distended and measures 12 cm in length and approximately 4.3 cm diameter. A small echogenic focus along the anterior wall measuring 3 mm likely represent small polyp. Small amount of layering sludge is suggested. No obvious gallstones, wall thickening or pericholecystic fluid is appreciated. The common bile duct measures 5 mm diameter. The liver and pancreas are normal in contour, size, and echogenicity without focal hepatic or pancreatic lesions identified. The right kidney is normal in reniform shape without hydronephrosis and measures 13.3 x 5.8 x 3.6 cm. No ascites. Visualized portions of the abdominal aorta normal. Impression: 1. Moderately distended gallbladder with small benign appearing polyp and layering sludge. No biliary ductal dilatation is appreciated. 2. Remainder examination is grossly unremarkable. Electronically Signed by Shakeel Ramírez MD 10/03/2018 10:50 A
== END ==
LOC: M RAD 10:21
PROVIDERS: ATTEND Nurse Practitioner Family
DX: K82.8 Other specified diseases of gallbladder (principal); R10.11 Right upper quadrant pain

== ENCOUNTER → 2018-10-03 | Outpatient (REF) ==
[2018-10-03 07:17] LABS: HEMATOCRIT 38.6 % (42.0-52.0); HEMOGLOBIN 11.9 g/dl (13.5-17.5); MEAN CORPUSCULAR HEMOGLOBIN 27.4 pg (27.0-33.0); MEAN CORPUSCULAR HGB CONC 30.8 g/dl (32.0-36.5); MEAN CORPUSCULAR VOLUME 88.7 fl (80.0-96.0); PLATELET COUNT, AUTOMATED 311 10^3/uL (150-450); RED BLOOD COUNT 4.35 10^6/uL (4.30-6.10); WHITE BLOOD COUNT 12.9 10^3/uL (4.0-10.0)
[2018-10-03 07:47] LABS: ALBUMIN 2.6 GM/DL (3.2-5.2); ALT/SGPT 14 U/L (12-78); BILIRUBIN,TOTAL 0.4 MG/DL (0.2-1.0); BLOOD UREA NITROGEN 15 MG/DL (7-18); CALCIUM LEVEL 9.3 MG/DL (8.5-10.1); CARBON DIOXIDE LEVEL 23 MEQ/L (21-32); CHLORIDE LEVEL 103 MEQ/L (98-107); CREATININE FOR GFR 1.06 MG/DL (0.70-1.30); GLOMERULAR FILTRATION RATE > 60.0 (>56); GLUCOSE, FASTING 80 MG/DL (70-100); SODIUM LEVEL 137 MEQ/L (136-145)
[2018-10-03 14:10] LABS: HEMATOCRIT 38.4 % (42.0-52.0); HEMOGLOBIN 11.6 g/dl (13.5-17.5); MEAN CORPUSCULAR HEMOGLOBIN 27.2 pg (27.0-33.0); MEAN CORPUSCULAR HGB CONC 30.2 g/dl (32.0-36.5); MEAN CORPUSCULAR VOLUME 90.1 fl (80.0-96.0); PLATELET COUNT, AUTOMATED 298 10^3/uL (150-450); RED BLOOD COUNT 4.26 10^6/uL (4.30-6.10)
== END ==
LOC: SKLAB5 07:51
PROVIDERS: ATTEND Family Medicine
DX: R10.9 Unspecified abdominal pain (principal); R11.0 Nausea

== ENCOUNTER 2018-10-04 11:06 | Inpatient (IN) | payer MEDICARE, MEDICAID ==
[~2018-10-04] VITALS: Ht 175.3 cm; Wt 67.4 kg
[~2018-10-04 11:06] MED LIST changes: -ACET1TAB55 PO; -CORE6.25 PO; -MS C15TA8 PO; -NITR4TASL SL; -SPIR1CAP INH; -SUCR1TA PO
[2018-10-04] MEDS ORDERED: TRIMETHOBENZAMIDE HCL INJ 200 MG/2 ML VIAL (J3250) IM ONE (11:30)
[2018-10-04] MEDS ORDERED: ISOVUE-370 76% 100ML VIAL (Q9967) As Ordered ONE (11:41)
[2018-10-04] MEDS: NS 1,000 ML IV ONE ×2 (11:49→12:53)
[2018-10-04 12:28] LABS: BASO # 0.1 10^3/uL (0.0-0.2); BASO % 1.2 % (0.0-1.0); EOS # 0.3 10^3/uL (0.0-0.50); EOS % 3.4 % (0.0-3.0); HEMATOCRIT 39.5 % (42.0-52.0); HEMOGLOBIN 12.2 g/dl (13.5-17.5); LYMPH # 2.2 10^3/uL (1.5-4.5); LYMPH % 27.1 % (24.0-44.0); MEAN CORPUSCULAR HEMOGLOBIN 27.4 pg (27.0-33.0); MEAN CORPUSCULAR HGB CONC 30.9 g/dl (32.0-36.5); MEAN CORPUSCULAR VOLUME 88.6 fl (80.0-96.0); MONO # 0.6 10^3/uL (0.0-0.8); MONO % 7.5 % (0.0-5.0); NEUTROPHILS # 4.9 10^3/uL (1.8-7.7); NEUTROPHILS % 60.2 % (36.0-66.0); PLATELET COUNT, AUTOMATED 285 10^3/uL (150-450); RED BLOOD COUNT 4.46 10^6/uL (4.30-6.10); WHITE BLOOD COUNT 8.2 10^3/uL (4.0-10.0)
[2018-10-04] MEDS ORDERED: MORPHINE 4 MG/ML 1ML VIAL/SYRINGE (J2270) IV ONE (12:45)
[2018-10-04 12:57] LABS: ALBUMIN 2.8 GM/DL (3.2-5.2); ALT/SGPT 15 U/L (12-78); BILIRUBIN,TOTAL 0.4 MG/DL (0.2-1.0); BLOOD UREA NITROGEN 10 MG/DL (7-18); C REACTIVE PROTEIN QUANTITATIV 1.51 MG/DL (0.00-0.30); CARBON DIOXIDE LEVEL 26 MEQ/L (21-32); CHLORIDE LEVEL 107 MEQ/L (98-107); CREATININE FOR GFR 0.92 MG/DL (0.70-1.30); GLOMERULAR FILTRATION RATE > 60.0 (>56); GLUCOSE, FASTING 92 MG/DL (70-100); LIPASE 198 U/L (73-393); POTASSIUM SERUM 4.1 MEQ/L (3.5-5.1); SODIUM LEVEL 140 MEQ/L (136-145); TOTAL PROTEIN 6.8 GM/DL (6.4-8.2)
--- NOTE | 2018-10-04 13:03 | REP ---
Clinical: History of necrotizing pancreatitis. Technique: Axial contrast enhanced images from the lung bases to the pubic symphysis using oral (per protocol) and 100 ml Isovue 370 intravenous contrast material with coronal and sagittal re-formations. Comparison: 09/13/2018. Findings: Residual normal enhancing pancreatic tissue extending from the head/uncinate process to the splenic hilum is appreciated with diffuse surrounding partially loculated fluid collections likely representing both abscesses/pseudocysts as well as possible necrotic portions of the pancreas. No single specific area of fluid appears to be amenable to drainage. Small amount of free fluid is also appreciated extending along the bilateral pericolic gutters. Liver, spleen, bilateral adrenal glands and kidneys are normal. The gallbladder is distended to moderate extrahepatic biliary dilatation is suggested but without obvious gallstones or intrahepatic dilatation. The small and large bowel is without obstruction. Mild mural thickening involving a portion of sigmoid colon may reflect an associated colitis. Pelvis demonstrates normal bladder and age appropriate prostate/seminal vesicles. No free air. Abdominal aorta without aneurysm or dissection. Lung bases demonstrate mild bibasilar atelectasis and small residual pleural collections which have considerably improved from prior examination. Impression: 1. Findings consistent with pancreatitis as described above including moderate surrounding peripancreatic fluid collections suggesting pseudocyst as well as possible portions of necrotic pancreatic tissue. Small amount of free fluid. No discrete single drainable collection identified. 2. Mild colitis involving the sigmoid colon cannot be excluded. 3. Resolving bibasilar atelectasis and small residual pleural effusions. Electronically Signed by Shakeel Ramírez MD 10/04/2018 12:54 P
[2018-10-04] MEDS ORDERED: NUCY50TA19 PO (13:27)
[2018-10-04] MEDS ORDERED: ASPI1TAB PO (13:27)
[2018-10-04] MEDS ORDERED: VENTAER INH (13:27)
[2018-10-04] MEDS ORDERED: SPIR1CAP INH (13:27)
[2018-10-04] MEDS ORDERED: CORE6.25 PO (13:27)
[2018-10-04] MEDS ORDERED: DEXI60CA2 PO (13:27)
[2018-10-04] MEDS ORDERED: MS C15TA8 PO (13:27)
[2018-10-04] MEDS ORDERED: AMIO400T PO (13:27)
[2018-10-04] MEDS ORDERED: MILK120011 PO (13:39)
[2018-10-04] MEDS ORDERED: NITR4TASL SL (13:39)
[2018-10-04] MEDS ORDERED: MORP-38 PO (13:39)
[2018-10-04] MEDS ORDERED: PROC25SU24 PR (13:39)
[2018-10-04] MEDS ORDERED: ACET1TAB55 PO (13:39)
[2018-10-04] MEDS ORDERED: ENTR1TAB PO (13:39)
[2018-10-04] MEDS ORDERED: ACET650S3 PR (13:39)
[2018-10-04] MEDS ORDERED: MAGN400T2 PO (13:39)
[2018-10-04] MEDS ORDERED: ZOFR4TAB16 PO (13:39)
[2018-10-04] MEDS ORDERED: HYDR-643 PO (13:39)
[2018-10-04] MEDS ORDERED: METF500T13 PO (13:39)
[2018-10-04] MEDS ORDERED: DULC10SU2 PR (13:39)
[2018-10-04] MEDS ORDERED: FLUO40CA PO (13:39)
[2018-10-04] MEDS ORDERED: VITMTA PO (13:39)
[2018-10-04] MEDS ORDERED: ENEMENE4 PR (13:39)
[2018-10-04] MEDS ORDERED: CLOP75TA2 PO (13:39)
[2018-10-04] MEDS ORDERED: ROSU20TA4 PO (13:39)
[2018-10-04] MEDS ORDERED: SUCR1TA PO (13:39)
[2018-10-04] MEDS ORDERED: ENSU-12 PO (13:39)
[2018-10-04] MEDS: MORPHINE 15 MG SA TAB PO SCH ×2 (14:00→21:35)
[2018-10-04] MEDS ORDERED: ALBUTEROL 90 MCG/ACT 8GM HFA INHALER INH PRN (15:30)
[2018-10-04] MEDS ORDERED: BISACODYL 10 MG SUPP PR PRN (15:30)
[2018-10-04] MEDS ORDERED: hydrOXYzine 10 MG TAB PO PRN (15:30)
[2018-10-04] MEDS ORDERED: PROCHLORPERAZINE 25 MG SUPP PR PRN (15:30)
[2018-10-04] MEDS ORDERED: MOM 30ML SUSPENSION UDC PO PRN (15:30)
[2018-10-04] MEDS ORDERED: ACETAMINOPHEN TAB 650MG DOSE (2X325MG) PO PRN (15:30)
[2018-10-04] MEDS ORDERED: ACETAMINOPHEN 650 MG SUPP PR PRN (15:30)
--- NOTE | 2018-10-04 16:02 | HPE ---
DATE OF ADMISSION: 10/04/2018 A 48-year-old male who was recently discharged from [facility] for multiple medical issues of which included necrotizing pancreatitis, [id number] myocardial infarction (NE), acute kidney injury (MARTY) requiring dialysis who presents to the emergency room from his subacute rehabilitation center for nausea and vomiting for the past eight days. The patient has not been able to eat for eight days and had an appointment with Dr. Hayes today where he saw him and recommended that he come to the emergency room (ER) for evaluation. In the ER, the patient was given Tigan and IV fluids. CT of the abdomen and pelvis revealed a pseudocyst plus what appears to be an active acute pancreatitis, though the lipase is negative. All other laboratory values were within normal limits. The patient is feeling much better at this time. He still has mild nausea and left upper quadrant abdominal pain. He will be admitted for further management. PAST MEDICAL HISTORY: 1. Congestive heart failure (CHF). 2. Diabetes. 3. History of coronary artery disease, status post coronary artery bypass graft (CABG) and multiple stent placement. 4. History of cerebrovascular accident (CVA). 5. History of implantable cardioverter defibrillator (ICD) placement. 6. Hyperlipidemia. 7. Chronic obstructive pulmonary disease (COPD). 8. Benign prostatic hypertrophy (BPH). He has no known drug allergies. FAMILY HISTORY: Noncontributory. SOCIAL HISTORY: The patient smokes two packs of cigarettes a day for many years. Denies alcohol or illicit drugs. MEDICATIONS: He takes at home are as follows: - Tylenol as needed - albuterol as needed - amiodarone 400 mg orally daily - aspirin 81 mg orally twice daily - bisacodyl 10 mg daily as needed - Coreg 6.25 mg orally twice daily - Plavix 75 mg orally daily - Dexilant 60 mg orally at bedtime - Ensure 240 mL by mouth twice a day - fluoxetine 40 mg orally daily - hydroxyzine 10 mg orally three times a day as needed - magnesium oxide 400 mg orally daily - metformin 500 mg orally twice daily - morphine sulfate 15 mg orally every eight hours - multivitamin one tablet orally daily - nitroglycerin sublingual as needed - Zofran 4 mg orally every six hours as needed - prochlorpemazine 25 mg every 12 hours as needed - rosuvastatin 20 mg orally daily - valsartan one tablet orally daily - sucralfate 1 gram orally before meals and at bedtime - tiotropium one inhalation daily REVIEW OF SYSTEMS: Negative for all 10 major systems except what is mentioned in the history of present illness (HPI). VITAL SIGNS: Blood pressure is 145/79, heart rate 68 and regular, respiratory rate 18, temperature 97.3, oxygen saturation is 95% on room air. Head is normocephalic, atraumatic. NECK: Supple with no jugular venous distention (JVD). LUNGS: Clear to auscultation. S1, S2 audible. No murmurs appreciated. ABDOMEN: Soft. Positive bowel sounds. No pedal edema. SKIN: Intact. NEUROLOGIC: The patient is awake, alert, and oriented times three. LABORATORY DATA: Sodium 140, potassium 4.1, chloride 107, CO2 26, BUN 10, creatinine 0.92, glucose is 92, lactic acid 1.2, lipase 198. WBC 8.2, hemoglobin is 12.2, hematocrit 39.5, platelets are 285,000. IMPRESSION: Acute pancreatitis. PLAN: The patient will be admitted to the medical/surgical floor. We will keep him nothing by mouth for now and start him on IV fluids normal saline (NS) at 150 mL an hour. We will give him IV Zofran and morphine for symptomatic relief and we will continue all of his preadmission medications.
[2018-10-04] MEDS: FLUoxetine 20 MG CAP PO SCH (17:14)
[2018-10-04] MEDS: ROSUVASTATIN 10 MG TAB (CRESTOR) PO SCH (17:14)
[2018-10-04] MEDS: AMIODARONE 200 MG TAB (PACERONE) PO SCH (17:14)
[2018-10-04] MEDS: CLOPIDOGREL 75 MG TAB PO SCH (17:14)
[2018-10-04] MEDS: metFORMIN (GLUCOPHAGE) 500 MG TAB PO SCH (17:30)
[2018-10-04] MEDS ORDERED: MORPHINE 2 MG/ML 1ML SYRINGE (J2270) As Ordered ONE (17:44)
[2018-10-04] MEDS: MORPHINE 4 MG/ML 1ML VIAL/SYRINGE (J2270) IV PRN (18:01)
[2018-10-04] MEDS: NS 1,000 ML IV SCH ×2 (18:29→21:36)
[2018-10-04 19:40] VITALS: BP 152/70
[2018-10-04] MEDS: SUCRALFATE 1 GM TAB PO SCH ×2 (21:34→21:37)
[2018-10-04] MEDS: ASPIRIN 81 MG ENTERIC TAB PO SCH (21:35)
[2018-10-04] MEDS: CARVedilol 6.25 MG TAB PO SCH (21:36)
[2018-10-04 22:00] VITALS: BP 135/80
[2018-10-05] MEDS: MORPHINE 4 MG/ML 1ML VIAL/SYRINGE (J2270) IV PRN ×7 (00:40→17:41)
[2018-10-05] MEDS: TAPENTADOL 50 MG TABLET (NUCYNTA) PO PRN ×2 (01:05→15:22)
[2018-10-05] MEDS: NS 1,000 ML IV SCH (01:06)
[2018-10-05] MEDS: MORPHINE 15 MG SA TAB PO SCH ×3 (05:30→21:05)
[2018-10-05 06:00] VITALS: BP 131/62
[2018-10-05] MEDS: HumaLOG INSULIN (NovoLOG) PER UNIT SC SCH ×4 (06:00→23:48)
[2018-10-05 06:27] LABS: ALBUMIN 2.4 GM/DL (3.2-5.2); ALT/SGPT 13 U/L (12-78); BILIRUBIN,TOTAL 0.3 MG/DL (0.2-1.0); BLOOD UREA NITROGEN 8 MG/DL (7-18); CALCIUM LEVEL 8.3 MG/DL (8.5-10.1); CARBON DIOXIDE LEVEL 21 MEQ/L (21-32); CHLORIDE LEVEL 108 MEQ/L (98-107); CREATININE FOR GFR 0.76 MG/DL (0.70-1.30); GLOMERULAR FILTRATION RATE > 60.0 (>56); GLUCOSE, FASTING 68 MG/DL (70-100); LIPASE 198 U/L (73-393); POTASSIUM SERUM 3.6 MEQ/L (3.5-5.1); SODIUM LEVEL 141 MEQ/L (136-145); TOTAL PROTEIN 5.6 GM/DL (6.4-8.2)
[2018-10-05] MEDS: metFORMIN (GLUCOPHAGE) 500 MG TAB PO SCH (07:30)
[2018-10-05] MEDS: TIOTROPIUM INHALER/CAPSULE (SPIRIVA) INH SCH (07:56)
[2018-10-05] MEDS ORDERED: DEXTROSE 50% 50 ML SYRINGE IV PRN (08:15)
[2018-10-05] MEDS ORDERED: GLUCAGON FOR INJ 1 MG VIAL (J1610) SC PRN (08:15)
[2018-10-05] MEDS ORDERED: GLUCOSE 4 GM CHEW TABLET PO PRN (08:15)
[2018-10-05] MEDS: SUCRALFATE 1 GM TAB PO SCH ×4 (08:17→21:03)
[2018-10-05] MEDS: MULTIVITAMINS/MINERALS THERAP 1 TAB PO SCH (08:17)
[2018-10-05] MEDS: ASPIRIN 81 MG ENTERIC TAB PO SCH ×2 (08:17→21:03)
[2018-10-05] MEDS: FLUoxetine 20 MG CAP PO SCH (08:17)
[2018-10-05] MEDS: ROSUVASTATIN 10 MG TAB (CRESTOR) PO SCH (08:17)
[2018-10-05] MEDS: CLOPIDOGREL 75 MG TAB PO SCH (08:17)
[2018-10-05] MEDS: CARVedilol 6.25 MG TAB PO SCH ×2 (08:17→21:03)
[2018-10-05] MEDS: AMIODARONE 200 MG TAB (PACERONE) PO SCH (08:18)
[2018-10-05] MEDS: MAGNESIUM OXIDE 400 MG TAB (MAG-OX) PO SCH (08:18)
[2018-10-05] MEDS: KCL 20MEQ IN D5/NS 1000ML 1,000 ML IV SCH ×3 (08:26→21:06)
[2018-10-05 08:41] LABS: BASO # 0.1 10^3/uL (0.0-0.2); BASO % 1.5 % (0.0-1.0); EOS # 0.3 10^3/uL (0.0-0.50); EOS % 3.8 % (0.0-3.0); HEMATOCRIT 34.5 % (42.0-52.0); HEMOGLOBIN 10.7 g/dl (13.5-17.5); LYMPH # 2.5 10^3/uL (1.5-4.5); LYMPH % 30.9 % (24.0-44.0); MEAN CORPUSCULAR HEMOGLOBIN 27.3 pg (27.0-33.0); MONO # 0.6 10^3/uL (0.0-0.8); MONO % 7.8 % (0.0-5.0); NEUTROPHILS # 4.5 10^3/uL (1.8-7.7); NEUTROPHILS % 55.3 % (36.0-66.0); PLATELET COUNT, AUTOMATED 270 10^3/uL (150-450); RED BLOOD COUNT 3.92 10^6/uL (4.30-6.10); WHITE BLOOD COUNT 8.2 10^3/uL (4.0-10.0)
--- NOTE | 2018-10-05 08:59 | IPN ---
DATE: 10/05/2018 Primary care provider is unknown, pending is Dr. Connor Hayes (rehab at [facility]). HISTORY: Dae Shipman was admitted with pancreatitis. He has had upper abdominal pain. His lipase was normal, but his CT scan showed significant inflammation around the pancreas. He had a long hospitalization from 07/31/2018 to 09/13/2018 on the hospitalist service. He had acute kidney injury requiring dialysis, pulmonary edema, multifocal pneumonia, C. difficile colitis, was on TPN. He has a dilated cardiomyopathy, ejection fraction 15-20%. He has a history of coronary artery disease status post coronary artery bypass grafting (CABG) in 2000, left circumflex, right coronary artery stenting. He had a nuclear stress test 06/2018, ejection fraction was 26% at that time. He is status post biventricular implantable cardioverter defibrillator (ICD) implantation 2015. 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 During his last hospitalization he had evidence of non-ST segment elevation myocardial infarction, troponin over 7, in the context of respiratory failure requiring intubation. He is denying any chest pain or shortness of breath. His upper abdominal pain is about the same as yesterday. Denies any vomiting. PHYSICAL EXAMINATION: Afebrile, 131/62. Lungs clear. Heart regular rhythm. Abdomen is soft, diffusely mildly tender epigastric area, nondistended. Bowel sounds are present. No peripheral edema. LABS: No CBC was ordered for today. Sodium 141, potassium 3.6, BUN 18, creatinine 0.7, glucose 68 (reviewed his [facility], he has been having recurrent hypoglycemia in the [facility] as well). Liver functions normal. Lipase is normal. CT of the abdomen and pelvis was done. Interestingly he had evidence of peripancreatic fluid collection near the time of his discharge on 09/13/2018. He had a gallbladder ultrasound done 10/03/2018 that showed a distended gallbladder with sludge. Most recent CT showed pancreatitis, moderate surrounding peripancreatic fluid collections, possible pseudocysts as well as portions of necrotic pancreatic tissue. No drainable fluid collection seen. Moderate colitis also noted. IMPRESSION: 1. Pancreatitis, probably related to gallbladder disease (amiodarone is also associated with pancreatitis on rare circumstances, but I think it is more likely related to his biliary disease). The patient is currently nothing by mouth receiving IV fluids and pain relief. Have consulted general surgery, Dr. Bedoya. This is a very ill patient at baseline who now has necrotic pancreatic tissue and developing pseudocyst. He may need to be managed at a tertiary care center if he does not respond to initial efforts. 2. Dilated cardiomyopathy with ICD. As noted above, the amiodarone is associated with pancreatitis, but I certainly would not discontinue this in the face of his history of ejection fraction, 10-15% without stronger proof that it was positive with his pancreatitis. 3. Diabetes with repeated hypoglycemia. At this point he is just on metformin with no fingersticks and no coverage. I have discontinued the metformin. I have put him on fingersticks every 6 hours with coverage. He is hypoglycemic this morning. I am changing his IV fluids to include some dextrose as well as some supplemental potassium. 4. Coronary artery disease. Continue his carvedilol, Plavix and aspirin. 5. History of depression. Continue his fluoxetine 40 mg daily. 6. Hyperlipidemia. Continue Crestor 20 mg daily. 7. Recent C. difficile colitis. No evidence of infection involving the pancreas. Prudent use of antibiotic obviously indicated.
[2018-10-05] MEDS ORDERED: CIPROFLOXACIN 400 MG in APPROPRIATE DILUENT 1 EA IV SCH (11:00)
[2018-10-05] MEDS ORDERED: metroNIDAZOLE 500 MG in APPROPRIATE DILUENT 1 EA IV SCH (12:00)
[2018-10-05 12:37] LABS: AMYLASE 29 U/L (25-115)
[2018-10-05] MEDS: ENOXAPARIN 40 MG/0.4 ML SYRINGE (J1650) SC SCH (13:18)
[2018-10-05 14:00] VITALS: BP 135/70
--- NOTE | 2018-10-05 15:24 | CR ---
DATE OF CONSULTATION: 10/05/2018 REASON FOR CONSULTATION Pancreatitis. HISTORY OF PRESENT ILLNESS The patient is a 48-year-old male recently in the hospital from 07/31/2018 to 09/13/2018 for Clostridium (C.) difficile colitis, pulmonary edema, pneumonia, cardiomyopathy, acute renal failure, pancreatitis and an myocardial infarction (ID). He was discharged on the , [facility]. He has been there for the last 2 weeks. Over the past few days he has had increased nausea, vomiting, upper abdominal pains. He denies any fevers or chills. No problems with bowel movements or urination. He says he has been urinating well on his own. The only difference is the last day it has started to get a little dark. He thinks it is likely because he has not been able to drink much because of the nausea and vomiting. He was evaluated in the prison and sent over here to emergency room. In the ER his labs were normal. Vitals were stable. However, repeat CT scan of the abdomen shows increasing inflammation and fluid collections around the pancreas compared to his previous CT scan that was done a couple of weeks ago. Because of that he has was admitted to the hospitalist service again under the diagnosis of pancreatitis. There is concern that his gallbladder is dilated on the CT as well. Ultrasound done 2 days ago does show dilated gallbladder but other than that there is no signs of acute inflammation on the ultrasound. PAST MEDICAL HISTORY Congestive heart failure. Diabetes. Coronary artery disease. Status post coronary artery bypass graft (CABG) and 10 stents. History of CVA. Hyperlipidemia. Chronic obstructive pulmonary disease (COPD). Benign prostatic hypertrophy (BPH). Recent ID. ALLERGIES None. PAST SURGERIES CABG. Defibrillator placement. SOCIAL HISTORY Smokes two packs of cigarettes a day. Denies drug or alcohol abuse. FAMILY HISTORY Noncontributory. HOME MEDICATIONS Please see medical record REVIEW OF SYSTEMS Pertinent positives and negatives as stated in the HPI. PHYSICAL EXAMINATION General: Alert and oriented times three. No acute distress. Vitals: Temperature 98.3, pulse 77, respirations 18, blood pressure 131/62, pulse ox 98% room air. HEENT: Pupils equally round, react to light and accommodation. Heart: S1, S2 regular rate and rhythm. Lungs: Clear to auscultation bilaterally. Abdomen: Soft, slight tenderness epigastric and left upper quadrant. No rebound, guarding or rigidity. Extremities: No clubbing, cyanosis or edema. LABORATORY DATA White count 8.2, hemoglobin 10.7, platelets 270. LFTs are all within normal limits. Lipase 198, potassium 3.6, creatinine 0.76. IMAGING STUDIES CT abdomen and pelvis from 10/04 shows pancreatitis with moderate surrounding peripancreatic fluid collections suggesting pseudocyst as well as possible portions of necrotic pancreatic tissue, small amount of free fluid. No distinct drainable collections identified. There is also mild sigmoid colitis that cannot be excluded. Ultrasound of the abdomen from 10/03/2018 shows a distended gallbladder at 12 cm, possibly a small polyp, small amount of layering sludge. No signs of obvious gallstones. No wall thickening or pericholecystic fluid and the bile ducts are all within normal size. ASSESSMENT/PLAN The patient again is a 48-year-old male with a complex medical history including previous ID, stroke, dilated cardiomyopathy with most recent ejection fraction around 15% and acute recurrent pancreatitis. Recommendation at this time is to continue with antiemetics, IV fluids, n.p.o. Would recommend starting antibiotics due to the potential necrotizing pancreatitis. At this time he does have a dilated gallbladder that is likely reactive to the pancreatitis, I am not too suspicious that that is the ultimate cause since there is no surrounding inflammation of the gallbladder itself. Will continue to treat him conservatively over the next couple of days. If he shows any signs of decline including fevers, leukocytosis, hypotension then we will consider urgent repeat imaging with further action as needed and possible transfer to tertiary care center. If he remains stable over the next few days and does not show any signs of improvement can consider a cholecystostomy drain placement to drain the gallbladder and see if that improves the symptoms. If it does we can leave the drain in for a couple of weeks and then remove it as an outpatient. He would likely not require a surgical cholecystectomy with that route. At this time, he is very high risk for any type of intervention whether it be a procedure or surgery. Therefore, we will do our best to treat him conservatively. However, if needed that would likely be the next most appropriate step.
--- NOTE | 2018-10-05 17:50 | CR ---
DATE OF CONSULTATION: 10/05/2018 REFERRING PHYSICIAN: Dr. Sanders CHIEF COMPLAINT: Acute abdominal pain with history of chronic pancreatitis. HISTORY OF PRESENT ILLNESS: Dae is a 48-year-old gentleman who has been admitted for acute pancreatitis. He was a patient at the hospital a few months ago for an extended period of time. History of multiple comorbidities. Currently, he has been receiving MS Contin 15 mg three times a day and Nucynta 50 mg as needed at [facility] at the rehabilitation unit. He states that this was helping up until the past 5 days. His pancreas and gallbladder imaging is abnormal and he is in severe pain. They are trying to treat him conservatively over the next few days due to his poor medical history. The patient states the Nucynta is not helping. States morphine is not working. Rating pain level 10 over 10. Pain is in his left upper quadrant/abdomen. PHYSICAL EXAMINATION: Awake, alert, oriented, no acute distress. Vital signs: 97.4, 64, 19, BP 135/70, O2 sat is 96% on room air. Cardiac: S1, S2 normal rate and rhythm. Abdomen: Mildly tender with palpation over the epigastric region, left greater than right. ASSESSMENT: Acute on chronic pancreatitis. PLAN: Due to his acute nature and multiple comorbidities, I would not be the expert on treatment of acute pain but could suggest for your consideration possibly stopping the Nucynta. Consider using Dilaudid at the renal impaired dose of 0.8 mg IV every 3 hours. Discontinue morphine IV. If you feel he is renally stable, you could consider using a higher dose for an opioid tolerant patient. MTDD
--- NOTE | 2018-10-05 17:53 | IPNPDOC ---
Text Note Date of Service The patient was seen on 10/05/18. NOTE Pain management was consulted. Will be dictating a note. Discussed with nurse. Recommend stop Morphine IV and PO Nucynta. Start 0.8 Dilaudid Q3hp. Patient was on dilaudid previous admission. VS,Fishbone, I+O VS, Fishbone, I+O Laboratory Tests 10/05/18 05:48 Red Blood Count 3.92 L, Mean Corpuscular Volume 88.0, Mean Corpuscular Hemo globin 27.3, Mean Corpuscular Hemoglobin Concent 31.0 L, Red Cell Distribution Width 15.0 H, Neutrophils (%) (Auto) 55.3, Lymphocytes (%) (Auto) 30.9, Monocytes (%) (Auto) 7.8 H, Eosinophils (%) (Auto) 3.8 H, Basophils (%) (Auto) 1.5 H, Neutrophils # (Auto) 4.5, Lymphocytes # (Auto) 2.5, Monocytes # (Auto) 0.6, Eosinophils # (Auto) 0.3, Basophils # (Auto) 0.1 10/05/18 05:51 Calcium Level 8.3 L, Aspartate Amino Transf (AST/SGOT) 16, Alanine Aminotransferase (ALT/SGPT) 13, Alkaline Phosphatase 75, Total Bilirubin 0.3, Total Protein 5.6 L, Albumin 2.4 L Vital Signs Date Time Temp Pulse Resp B/P (MAP) Pulse Ox O2 Delivery O2 Flow Rate FiO2 10/05/18 17:41 18 10/05/18 15:40 97.4 64 135/70 96 10/04/18 11:22 Room Air I&O- Last 24 Hours up to 6 AM 10/05/18 06:00 Intake Total 0 ml Output Total 700 ml Balance -700 ml ANNE-MARIE BRYANT DO Oct 05, 2018 17:53
[2018-10-05] MEDS: HYDROMORPHONE HCL 0.5 MG/ 0.5 ML SYRINGE (J1170 PER 1) IV PRN ×2 (19:02→23:49)
[2018-10-05 22:00] VITALS: BP 130/80
[2018-10-06] MEDS: KCL 20MEQ IN D5/NS 1000ML 1,000 ML IV SCH ×4 (04:33→23:54)
[2018-10-06] MEDS: HYDROMORPHONE HCL 0.5 MG/ 0.5 ML SYRINGE (J1170 PER 1) IV PRN ×4 (04:41→20:27)
[2018-10-06 06:00] VITALS: BP 123/70
[2018-10-06] MEDS: MORPHINE 15 MG SA TAB PO SCH ×3 (06:15→21:33)
[2018-10-06] MEDS: HumaLOG INSULIN (NovoLOG) PER UNIT SC SCH ×4 (06:15→23:53)
[2018-10-06 06:21] LABS: BASO # 0.1 10^3/uL (0.0-0.2); BASO % 1.2 % (0.0-1.0); EOS # 0.4 10^3/uL (0.0-0.50); EOS % 4.4 % (0.0-3.0); HEMATOCRIT 35.1 % (42.0-52.0); HEMOGLOBIN 10.8 g/dl (13.5-17.5); LYMPH # 1.9 10^3/uL (1.5-4.5); MEAN CORPUSCULAR HEMOGLOBIN 27.2 pg (27.0-33.0); MEAN CORPUSCULAR HGB CONC 30.8 g/dl (32.0-36.5); MEAN CORPUSCULAR VOLUME 88.4 fl (80.0-96.0); MONO # 0.7 10^3/uL (0.0-0.8); MONO % 8.8 % (0.0-5.0); NEUTROPHILS # 5.1 10^3/uL (1.8-7.7); PLATELET COUNT, AUTOMATED 239 10^3/uL (150-450); RED BLOOD COUNT 3.97 10^6/uL (4.30-6.10); WHITE BLOOD COUNT 8.3 10^3/uL (4.0-10.0)
[2018-10-06 06:47] LABS: ALBUMIN 2.2 GM/DL (3.2-5.2); ALT/SGPT 14 U/L (12-78); AMYLASE 25 U/L (25-115); BILIRUBIN,TOTAL 0.2 MG/DL (0.2-1.0); BLOOD UREA NITROGEN 6 MG/DL (7-18); CALCIUM LEVEL 7.9 MG/DL (8.5-10.1); CARBON DIOXIDE LEVEL 21 MEQ/L (21-32); CHLORIDE LEVEL 115 MEQ/L (98-107); CREATININE FOR GFR 0.71 MG/DL (0.70-1.30); GLOMERULAR FILTRATION RATE > 60.0 (>56); GLUCOSE, FASTING 152 MG/DL (70-100); LIPASE 227 U/L (73-393); POTASSIUM SERUM 3.7 MEQ/L (3.5-5.1); SODIUM LEVEL 144 MEQ/L (136-145); TOTAL PROTEIN 5.9 GM/DL (6.4-8.2)
[2018-10-06] MEDS: SUCRALFATE 1 GM TAB PO SCH ×4 (07:30→20:26)
[2018-10-06] MEDS: TIOTROPIUM INHALER/CAPSULE (SPIRIVA) INH SCH (08:35)
[2018-10-06] MEDS: FLUoxetine 20 MG CAP PO SCH (09:25)
[2018-10-06] MEDS: ENOXAPARIN 40 MG/0.4 ML SYRINGE (J1650) SC SCH (09:25)
[2018-10-06] MEDS: ROSUVASTATIN 10 MG TAB (CRESTOR) PO SCH (09:25)
[2018-10-06] MEDS: ASPIRIN 81 MG ENTERIC TAB PO SCH ×2 (09:26→20:26)
[2018-10-06] MEDS: MULTIVITAMINS/MINERALS THERAP 1 TAB PO SCH (09:26)
[2018-10-06] MEDS: CARVedilol 6.25 MG TAB PO SCH ×2 (09:26→20:26)
[2018-10-06] MEDS: MAGNESIUM OXIDE 400 MG TAB (MAG-OX) PO SCH (09:26)
[2018-10-06] MEDS: CLOPIDOGREL 75 MG TAB PO SCH (09:26)
[2018-10-06] MEDS: AMIODARONE 200 MG TAB (PACERONE) PO SCH (09:26)
[2018-10-06] MEDS: ONDANSETRON 4MG/2ML VIAL (J2405) IV PRN (09:36)
--- NOTE | 2018-10-06 10:23 | IPNPDOC ---
Text Note Date of Service The patient was seen on 10/06/18. NOTE No acute events overnight. He was vomiting when I saw him this am. He claims t hat the abd pain is improving, but is still sore. I told him that I would avoid pressing on him, because he was actively vomiting while I was there. Denies any problems with urination or bowel movements. VSSAF NAD labs - see below A) 48y/o male with chronic pancreatitis and pseudocysts dilated cardiomyopathy recent SC P) npo IVF abx for one more day will hold off on PO diet until the pain has resolved will follow Cody Bedoya DO VS,Fishbone, I+O VS, Fishbone, I+O Laboratory Tests 10/06/18 05:53 Red Blood Count 3.97 L, Mean Corpuscular Volume 88.4, Mean Corpuscular Hemoglobin 27.2, Mean Corpuscular Hemoglobin Concent 30.8 L, Red Cell Distribu tion Width 15.0 H, Neutrophils (%) (Auto) 62.0, Lymphocytes (%) (Auto) 23.0 L, Monocytes (%) (Auto) 8.8 H, Eosinophils (%) (Auto) 4.4 H, Basophils (%) (Auto) 1.2 H, Neutrophils # (Auto) 5.1, Lymphocytes # (Auto) 1.9, Monocytes # (Auto) 0.7, Eosinophils # (Auto) 0.4, Basophils # (Auto) 0.1, Calcium Level 7.9 L, Aspartate Amino Transf (AST/SGOT) 16, Alanine Aminotransferase (ALT/SGPT) 14, Alkaline Phosphatase 75, Total Bilirubin 0.2, Total Protein 5.9 L, Albumin 2.2 L Vital Signs Date Time Temp Pulse Resp B/P (MAP) Pulse Ox O2 Delivery O2 Flow Rate FiO2 10/06/18 10:00 17 10/06/18 09:26 71 123/70 10/06/18 06:00 98.1 95 10/04/18 11:22 Room Air I&O- Last 24 Hours up to 6 AM 10/06/18 06:00 Intake Total 2800 ml Output Total 1800 ml Balance 1000 ml LAVINIA BEDOYA DO Oct 06, 2018 10:23
--- NOTE | 2018-10-06 10:45 | IPNPDOC ---
Subjective Date Seen The patient was seen on 10/06/18. Subjective Chief Complaint/HPI Patient reports pain is manageable. He had emesis with his oral medications. Still NPO. No fevers, chills. Constitutional: Denies: Chills, Fever Objective Physical Examination General Exam: Positive: Alert, Cooperative Eye Exam: Positive: PERRLA ENT Exam: Positive: Atraumatic Chest Exam: Positive: Clear to auscultation Heart Exam: Positive: Rate Normal, Normal S1, Normal S2 Abdomen Exam: Positive: Normal bowel sounds, Tenderness Extremity Exam: Positive: Normal pulses; Negative: Edema Assessment /Plan Problems (1) Pancreatitis Status: Acute Problem Text: Dr. Bedoya was consulted. WBC normal. No fevers. Unsure if causes was determirmined previously. Ordering TG count for tomorrow. May be secondary to medications, Amiodarone. CT scan showed evidence of possible peseudocyst. Monitoring for now. If WBC worsens with fever, consider transfer. (2) Abdominal pain Status: Acute Problem Text: Pain management consulted. Switched pain medication to PO morphine and IV dilaudid. Tolerating pain a little better. (3) History of Clostridium difficile infection Problem Text: Not starting antibiotics due to recent C. diff. (4) DM2 (diabetes mellitus, type 2) Status: Chronic Problem Text: On fingersticks q6h. Add dextrose in fluids. Monitor glucose level. (5) CAD (coronary artery disease) Status: Chronic Problem Text: Continue plavix, carvedilol, and aspirin. (6) Depression Status: Chronic Problem Text: Fluoxentine 40 mg daily. (7) Hyperlipidemia Status: Chronic Problem Text: Crestor daily. Plan/VTE VTE Prophylaxis Ordered?: Yes VS, I&O, 24H, Fishbone Vital Signs/I&O Vital Signs Date Time Temp Pulse Resp B/P (MAP) Pulse Ox O2 Delivery O2 Flow Rate FiO2 10/06/18 10:00 17 10/06/18 09:26 71 123/70 10/06/18 06:00 98.1 95 10/04/18 11:22 Room Air I&O- Last 24 Hours up to 6 AM 10/06/18 06:00 Intake Total 2800 ml Output Total 1800 ml Balance 1000 ml Laboratory Data 24H LABS Laboratory Tests 2 10/05/18 11:43: Bedside Glucose (Misc Panel) 109H 3/1/19 18:36: Bedside Glucose (Misc Panel) 130H 10/05/18 21:07: Bedside Glucose (Misc Panel) 109H 10/06/18 05:19: Bedside Glucose (Misc Panel) 140H 10/06/18 05:53: Immature Granulocyte % (Auto) 0.6, White Blood Count 8.3, Red Blood Count 3.97L, Hemoglobin 10.8L, Hematocrit 35.1L, Mean Corpuscular Volume 88.4, Mean Corpuscular Hemoglobin 27.2, Mean Corpuscular Hemoglobin Concent 30.8L, Red Cell Distribution Width 15.0H, Platelet Count 239, Neutrophils (%) (Auto) 62.0, Lymphocytes (%) (Auto) 23.0L, Monocytes (%) (Auto) 8.8H, Eosinophils (%) (Auto) 4.4H, Basophils (%) (Auto) 1.2H, Neutrophils # (Auto) 5.1, Lymphocytes # (Auto) 1.9, Monocytes # (Auto) 0.7, Eosinophils # (Auto) 0.4, Basophils # (Auto) 0.1, Nucleated Red Blood Cells % (auto) 0.0, Anion Gap 8, Glomerular Filtration Rate > 60.0, Blood Urea Nitrogen 6L, Creatinine 0.71, Sodium Level 144, Potassium Level 3.7, Chloride Level 115H, Carbon Dioxide Level 21, Calcium Level 7.9L, Aspartate Amino Transf (AST/SGOT) 16, Alanine Aminotransferase (ALT/SGPT) 14, Alkaline Phosphatase 75, Total Bilirubin 0.2, Total Protein 5.9L, Albumin 2.2L, Albumin/Globulin Ratio 0.59L, Amylase Level 25, Lipase 227 CBC/BMP Laboratory Tests 10/06/18 05:53 Red Blood Count 3.97 L, Mean Corpuscular Volume 88.4, Mean Corpuscular Hemoglobin 27.2, Mean Corpuscular Hemoglobin Concent 30.8 L, Red Cell Distribution Width 15.0 H, Neutrophils (%) (Auto) 62.0, Lymphocytes (%) (Auto) 23.0 L, Monocytes (%) (Auto) 8.8 H, Eosinophils (%) (Auto) 4.4 H, Basophils (%) (Auto) 1.2 H, Neutrophils # (Auto) 5.1, Lymphocytes # (Auto) 1.9, Monocytes # (Auto) 0.7, Eosinophils # (Auto) 0.4, Basophils # (Auto) 0.1, Calcium Level 7.9 L, Aspartate Amino Transf (AST/SGOT) 16, Alanine Aminotransferase (ALT/SGPT) 14, Alkaline Phosphatase 75, Total Bilirubin 0.2, Total Protein 5.9 L, Albumin 2.2 L GME ATTESTATION GME ATTESTATION My faculty preceptor for this patient encounter was physically present during the encounter and was fully available. All aspects of the patient interview, examination, medical decision making process, and medical care plan development were reviewed and approved by the faculty preceptor. The faculty preceptor is aware and concurs with the plan as stated in the body of this note and will atte st to such by his/her cosignature. ANNE-MARIE BRYANT DO Oct 06, 2018 10:45
[2018-10-06 14:00] VITALS: BP 122/74
[2018-10-06 22:00] VITALS: BP 130/81
[2018-10-07] MEDS: HYDROMORPHONE HCL 0.5 MG/ 0.5 ML SYRINGE (J1170 PER 1) IV PRN ×2 (04:23→14:11)
[2018-10-07 06:00] VITALS: BP 127/80
[2018-10-07] MEDS: HumaLOG INSULIN (NovoLOG) PER UNIT SC SCH ×4 (06:00→23:57)
[2018-10-07] MEDS: MORPHINE 15 MG SA TAB PO SCH ×3 (06:00→22:00)
[2018-10-07 06:20] LABS: BASO # 0.1 10^3/uL (0.0-0.2); BASO % 1.3 % (0.0-1.0); EOS # 0.4 10^3/uL (0.0-0.50); EOS % 4.5 % (0.0-3.0); HEMATOCRIT 34.6 % (42.0-52.0); HEMOGLOBIN 10.5 g/dl (13.5-17.5); LYMPH # 2.5 10^3/uL (1.5-4.5); LYMPH % 25.1 % (24.0-44.0); MEAN CORPUSCULAR HGB CONC 30.3 g/dl (32.0-36.5); MEAN CORPUSCULAR VOLUME 88.9 fl (80.0-96.0); MONO # 0.9 10^3/uL (0.0-0.8); MONO % 8.7 % (0.0-5.0); NEUTROPHILS # 5.9 10^3/uL (1.8-7.7); NEUTROPHILS % 59.9 % (36.0-66.0); PLATELET COUNT, AUTOMATED 262 10^3/uL (150-450); RED BLOOD COUNT 3.89 10^6/uL (4.30-6.10); WHITE BLOOD COUNT 9.8 10^3/uL (4.0-10.0)
[2018-10-07] MEDS: KCL 20MEQ IN D5/NS 1000ML 1,000 ML IV SCH ×2 (06:32→13:00)
[2018-10-07 06:59] LABS: ALBUMIN 2.1 GM/DL (3.2-5.2); ALT/SGPT 12 U/L (12-78); BILIRUBIN,TOTAL 0.2 MG/DL (0.2-1.0); BLOOD UREA NITROGEN 3 MG/DL (7-18); CALCIUM LEVEL 7.8 MG/DL (8.5-10.1); CARBON DIOXIDE LEVEL 21 MEQ/L (21-32); CHLORIDE LEVEL 119 MEQ/L (98-107); CHOLESTEROL LEVEL 91 MG/DL (< 200); CHOLESTEROL LEVEL 91 MG/DL (<200); CHOLESTEROL RISK RATIO 3.137 (<5); CREATININE FOR GFR 0.76 MG/DL (0.70-1.30); FREE T4 1.26 NG/DL (0.76-1.46); GLOMERULAR FILTRATION RATE > 60.0 (>56); GLUCOSE, FASTING 136 MG/DL (70-100); HDL CHOLESTEROL 29 MG/DL (>40); LDL CHOLESTEROL 29 MG/DL (<100); NON-HDL-C 62 MG/DL; NT-PRO BNP 31224 PG/ML (<125); POTASSIUM SERUM 3.9 MEQ/L (3.5-5.1); SODIUM LEVEL 147 MEQ/L (136-145); TOTAL PROTEIN 5.6 GM/DL (6.4-8.2); TRIGLYCERIDES LEVEL 167 MG/DL (<150)
[2018-10-07] MEDS: SUCRALFATE 1 GM TAB PO SCH ×4 (07:30→21:00)
[2018-10-07] MEDS: TIOTROPIUM INHALER/CAPSULE (SPIRIVA) INH SCH (07:44)
[2018-10-07] MEDS: ONDANSETRON 4MG/2ML VIAL (J2405) IV PRN ×3 (08:45→22:01)
[2018-10-07] MEDS: MULTIVITAMINS/MINERALS THERAP 1 TAB PO SCH (09:00)
[2018-10-07] MEDS: ASPIRIN 81 MG ENTERIC TAB PO SCH ×2 (09:00→21:00)
[2018-10-07] MEDS: ROSUVASTATIN 10 MG TAB (CRESTOR) PO SCH (09:00)
[2018-10-07] MEDS: CLOPIDOGREL 75 MG TAB PO SCH (09:00)
[2018-10-07] MEDS: FLUoxetine 20 MG CAP PO SCH (09:00)
[2018-10-07] MEDS: MAGNESIUM OXIDE 400 MG TAB (MAG-OX) PO SCH (09:00)
[2018-10-07] MEDS: CARVedilol 6.25 MG TAB PO SCH ×2 (09:00→21:00)
[2018-10-07] MEDS: AMIODARONE 200 MG TAB (PACERONE) PO SCH (09:00)
--- NOTE | 2018-10-07 09:08 | IPNPDOC ---
Text Note Date of Service The patient was seen on 10/07/18. NOTE No acute events overnight. Nausea and emesis have stopped. He claims that the abd pain is improving, but is still sore. He denies any cough, shortness of breath, or chest pain. VSSAF NAD labs - see below A) 48y/o male with chronic pancreatitis and pseudocysts dilated cardiomyopathy recent PR P) npo IVF d/c abx will hold off on PO diet until the pain has resolved will consider repeat RUQ US, and possible cholecystostomy drain tomorrow if still no improvement will follow Cody Bedoya DO VS,Kami, I+O VS, Kami, I+O Laboratory Tests 10/07/18 05:56 Red Blood Count 3.89 L, Mean Corpuscular Volume 88.9, Mean Corpuscular Hemoglobin 27.0, Mean Corpuscular Hemoglobin Concent 30.3 L, Red Cell Distribution Width 15.5 H, Neutrophils (%) (Auto) 59.9, Lymphocytes (%) (Auto) 25.1, Monocytes (%) (Auto) 8.7 H, Eosinophils (%) (Auto) 4.5 H, Basophils (%) (Auto) 1.3 H, Neutrophils # (Auto) 5.9, Lymphocytes # (Auto) 2.5, Monocytes # (Auto) 0.9 H, Eosinophils # (Auto) 0.4, Basophils # (Auto) 0.1, Calcium Level 7.8 L, Aspartate Amino Transf (AST/SGOT) 11, Alanine Aminotransferase (ALT/SGPT) 12, Alkaline Phosphatase 71, Total Bilirubin 0.2, Triglycerides Level 167 H, Cholesterol Level 91, LDL Cholesterol 29, Total Protein 5.6 L, Albumin 2.1 L Vital Signs Date Time Temp Pulse Resp B/P (MAP) Pulse Ox O2 Delivery O2 Flow Rate FiO2 10/07/18 06:00 18 10/07/18 06:00 98.1 87 127/80 (96) 94 10/04/18 11:22 Room Air I&O- Last 24 Hours up to 6 AM 10/07/18 06:00 Intake Total 3600 ml Output Total 1325 ml Balance 2275 ml LAVINIA BEDOYA DO Oct 07, 2018 09:07
[2018-10-07] MEDS: ENOXAPARIN 40 MG/0.4 ML SYRINGE (J1650) SC SCH (13:11)
--- NOTE | 2018-10-07 13:54 | IPNPDOC ---
Subjective Date Seen The patient was seen on 10/07/18. Subjective Chief Complaint/HPI persistent pain/nausea/anorexia Constitutional: Denies: Chills, Fever Eyes: Reports: Pain ENT: Denies: Head Aches Skin: Denies: Rash Pulmonary: Denies: Dyspnea Cardiovascular: Denies: Chest Pain Gastrointestinal: Reports: Nausea; Denies: Vomiting Objective Physical Examination General Exam: Positive: Alert, Cooperative Eye Exam: Positive: PERRLA ENT Exam: Positive: Atraumatic Chest Exam: Positive: Clear to auscultation Heart Exam: Positive: Rate Normal, Normal S1, Normal S2 Abdomen Exam: Positive: Normal bowel sounds, Tenderness Extremity Exam: Positive: Normal pulses; Negative: Edema Assessment /Plan Problems (1) Systolic and diastolic CHF, acute on chronic Status: Chronic Problem Text: +3L since admission 10/07/18 BNP 31,224!!! (07/09/18 714), Na 147 (144); therefore, changed IVF D5NS 20KCL 150H to D10 1/2NS 20 KCL 50 off HD Entresto 09/03/18 TTE Garcia Moderately dilated left ventricle with borderline hypertrophy. Paradoxical septal wall motion and apical akinesis related to right ventricular paced rhythm. Moderate to moderately severe impairment of global resting systolic function (LVEF 30%) Mildly dilated left atrium with impairment of LV diastolic function and elevated mean left atrial pressure. Right heart chamber sizes upper limits of normal with right ventricular hypokinesis and Doppler evidence of moderate pulmonary hypertension. Mildly dilated IVC with slightly reduced respiratory collapse suggestive of central venous pressure of approximately 10 - 15 mmHg. Slight aortic valvular sclerosis with adequate cusp separation but premature cusp closure in keeping with reduced forward stroke volume. Normal aortic root size. Normal-appearing mitral valvular apparatus with "low flow" appearance to leaflet excursion and at least mild to moderate mitral insufficiency. Normal appearing tricuspid valve with very mild insufficiency. No intracardiac mass or pericardial effusion. Pacing leads could be visualized traversing right heart structures. (2) Pancreatitis Status: Acute Problem Text: favor chronic recurrent pancreatitis 2 long-standing poorly- controlled DM/hyper TG c pseudocysts/necrosis (although this is his first "documented" episode) poor surgical candidate given 07/31/18 ACS/NSTEMI 10/07/18 stable pain/nausea s vomiting today; AF c stable WBC; check abdominal US tc percutaneous cholecystostomy drain appreciate Dr. Bedoya input-favors observation 10/04/18 CT AP: Impression: 1. Findings consistent with pancreatitis as described above including moderate surrounding peripancreatic fluid collections suggesting pseudocyst as well as possible portions of necrotic pancreatic tissue. Small amount of free fluid. No discrete single drainable collection identified. 2. Mild colitis involving the sigmoid colon cannot be excluded. 3. Resolving bibasilar atelectasis and small residual pleural effusions. (3) Abdominal pain Status: Acute Problem Text: 2 pancreatitis stable on IV HM per PM (4) History of Clostridium difficile infection Problem Text: no indication of recurrence (5) DM2 (diabetes mellitus, type 2) Status: Chronic Problem Text: BG 120-150 stable on SSLI (6) CAD (coronary artery disease) Status: Chronic Problem Text: No active symptoms on HD plavix, carvedilol, and aspirin. (7) Hypernatremia Status: Acute Problem Text: see CHF Plan/VTE VTE Prophylaxis Ordered?: Yes VS, I&O, 24H, Fishbone Vital Signs/I&O Vital Signs Date Time Temp Pulse Resp B/P (MAP) Pulse Ox O2 Delivery O2 Flow Rate FiO2 10/07/18 11:03 97.8 10/07/18 06:00 18 10/07/18 06:00 87 127/80 (96) 94 10/04/18 11:22 Room Air I&O- Last 24 Hours up to 6 AM 10/07/18 06:00 Intake Total 3600 ml Output Total 1325 ml Balance 2275 ml Laboratory Data 24H LABS Laboratory Tests 2 10/06/18 18:02: Bedside Glucose (Misc Panel) 122H 10/06/18 23:49: Bedside Glucose (Misc Panel) 120H 10/07/18 05:56: Immature Granulocyte % (Auto) 0.5, White Blood Count 9.8, Red Blood Count 3.89L, Hemoglobin 10.5L, Hematocrit 34.6L, Mean Corpuscular Volume 88.9, Mean Corpuscular Hemoglobin 27.0, Mean Corpuscular Hemoglobin Concent 30.3L, Red Cell Distribution Width 15.5H, Platelet Count 262, Neutrophils (%) (Auto) 59.9, Lymphocytes (%) (Auto) 25.1, Monocytes (%) (Auto) 8.7H, Eosinophils (%) (Auto) 4.5H, Basophils (%) (Auto) 1.3H, Neutrophils # (Auto) 5.9, Lymphocytes # (Auto) 2.5, Monocytes # (Auto) 0.9H, Eosinophils # (Auto) 0.4, Basophils # (Auto) 0.1, Nucleated Red Blood Cells % (auto) 0.0, Anion Gap 7L, Glomerular Filtration Rate > 60.0, Blood Urea Nitrogen 3L, Creatinine 0.76, Sodium Level 147H, Potassium L evel 3.9, Chloride Level 119H, Carbon Dioxide Level 21, Calcium Level 7.8L, Aspartate Amino Transf (AST/SGOT) 11, Alanine Aminotransferase (ALT/SGPT) 12, Alkaline Phosphatase 71, Total Bilirubin 0.2, Triglycerides Level 167H, Cholesterol Level 91, LDL Cholesterol 29, Total Protein 5.6L, Albumin 2.1L, QU-Oef-Q-Type Natriuretic Peptide 86970A, Albumin/Globulin Ratio 0.60L, Total Cholesterol 91, Non-HDL Cholesterol (LDL + VLDL) 62, Total HDL Cholesterol 29L, Cholesterol/HDL Ratio 3.137, Thyroid Stimulating Hormone (TSH) 3.020, Free Thyroxine 1.26 10/07/18 06:19: Bedside Glucose (Misc Panel) 123H 10/07/18 12:33: Bedside Glucose (Misc Panel) 153H CBC/BMP Laboratory Tests 10/07/18 05:56 Red Blood Count 3.89 L, Mean Corpuscular Volume 88.9, Mean Corpuscular Hemoglobin 27.0, Mean Corpuscular Hemoglobin Concent 30.3 L, Red Cell Distributi on Width 15.5 H, Neutrophils (%) (Auto) 59.9, Lymphocytes (%) (Auto) 25.1, Monocytes (%) (Auto) 8.7 H, Eosinophils (%) (Auto) 4.5 H, Basophils (%) (Auto) 1.3 H, Neutrophils # (Auto) 5.9, Lymphocytes # (Auto) 2.5, Monocytes # (Auto) 0.9 H, Eosinophils # (Auto) 0.4, Basophils # (Auto) 0.1, Calcium Level 7.8 L, Aspartate Amino Transf (AST/SGOT) 11, Alanine Aminotransferase (ALT/SGPT) 12, Alkaline Phosphatase 71, Total Bilirubin 0.2, Triglycerides Level 167 H, Cholesterol Level 91, LDL Cholesterol 29, Total Protein 5.6 L, Albumin 2.1 L Hari Hoang M.D. Oct 07, 2018 13:54
[2018-10-07 14:00] VITALS: BP 137/97
[2018-10-07] MEDS: METOCLOPRAMIDE INJ 10MG/2ML VIAL (J2765) IV PRN ×2 (14:06→21:35)
[2018-10-07] MEDS ORDERED: POTASSIUM CHLORIDE INJ 20 MEQ in D10W/0.45% SODIUM CHLORIDE 1,000 ML IV SCH (16:00)
[2018-10-07 22:00] VITALS: BP 139/94
--- NOTE | 2018-10-08 01:52 | REP ---
Clinical: Acute pancreatitis. Technique: Real time plascencia scale and color evaluation using curved array transducer. Findings: The gallbladder is distended and measures 12.1 cm in length and 4.4 cm diameter with layering sludge and small amount of pericholecystic fluid. The common bile duct is upper limits of normal at 6.9 mm without evidence for intrahepatic biliary ductal dilatation. The liver is mildly enlarged measuring 19.3 cm in craniocaudal length but without focal hepatic lesion identified. The pancreas is somewhat edematous in appearance consistent with the given history of pancreatitis. Right kidney is normal in reniform shape without hydronephrosis and measures 14.0 x 5.8 x 4.8 cm. Impression: 1. Dilated gallbladder with sludge and pericholecystic fluid similar to findings on prior CT. 2. Findings to suggest continued pancreatitis. 3. Gallstone pancreatitis cannot be excluded. Electronically Signed by Shakeel Ramírez MD 10/08/2018 01:43 A
[2018-10-08 02:30] VITALS: BP 137/107
[2018-10-08] MEDS ORDERED: FUROSEMIDE 40 MG/4 ML VIAL (J1940) IV ONE (03:00)
[2018-10-08] MEDS ORDERED: IPRATROPIUM 0.5MG/ALBUTEROL 2.5MG INH SOL UD 3ML (DUONEB)(J7620) NEB PRN (03:00)
[2018-10-08 03:25] VITALS: BP 148/106
[2018-10-08] MEDS: NITROGLYCERIN 0.4 MG SUBL TABLET SL PRN ×2 (03:27→03:46)
[2018-10-08] MEDS: HYDROMORPHONE HCL 0.5 MG/ 0.5 ML SYRINGE (J1170 PER 1) IV PRN ×6 (03:33→23:44)
[2018-10-08 03:51] VITALS: BP 118/86
[2018-10-08] MEDS ORDERED: NITROGLYCERIN 2% OINT 1 GM *U/D* PKT TOP ONE (04:00)
[2018-10-08 06:00] VITALS: BP 131/86
[2018-10-08] MEDS: HumaLOG INSULIN (NovoLOG) PER UNIT SC SCH ×4 (06:00→23:49)
[2018-10-08] MEDS: MORPHINE 15 MG SA TAB PO SCH ×3 (06:00→22:09)
[2018-10-08 06:47] LABS: BASO # 0.1 10^3/uL (0.0-0.2); BASO % 0.5 % (0.0-1.0); EOS % 0.3 % (0.0-3.0); HEMATOCRIT 40.5 % (42.0-52.0); LYMPH # 1.3 10^3/uL (1.5-4.5); LYMPH % 9.3 % (24.0-44.0); MEAN CORPUSCULAR HEMOGLOBIN 27.1 pg (27.0-33.0); MEAN CORPUSCULAR HGB CONC 29.6 g/dl (32.0-36.5); MEAN CORPUSCULAR VOLUME 91.4 fl (80.0-96.0); MONO # 0.8 10^3/uL (0.0-0.8); MONO % 5.9 % (0.0-5.0); NEUTROPHILS # 11.5 10^3/uL (1.8-7.7); NEUTROPHILS % 83.1 % (36.0-66.0); PLATELET COUNT, AUTOMATED 286 10^3/uL (150-450); RED BLOOD COUNT 4.43 10^6/uL (4.30-6.10); WHITE BLOOD COUNT 13.8 10^3/uL (4.0-10.0)
[2018-10-08 07:18] LABS: ALBUMIN 2.4 GM/DL (3.2-5.2); ALT/SGPT 12 U/L (12-78); BILIRUBIN,TOTAL 0.3 MG/DL (0.2-1.0); BLOOD UREA NITROGEN 5 MG/DL (7-18); CALCIUM LEVEL 8.4 MG/DL (8.5-10.1); CARBON DIOXIDE LEVEL 20 MEQ/L (21-32); CHLORIDE LEVEL 116 MEQ/L (98-107); CREATININE FOR GFR 1.01 MG/DL (0.70-1.30); GLOMERULAR FILTRATION RATE > 60.0 (>56); GLUCOSE, FASTING 151 MG/DL (70-100); LIPASE 138 U/L (73-393); NT-PRO BNP 70802 PG/ML (<125); POTASSIUM SERUM 4.1 MEQ/L (3.5-5.1); SODIUM LEVEL 144 MEQ/L (136-145); TOTAL PROTEIN 6.5 GM/DL (6.4-8.2)
[2018-10-08] MEDS: TIOTROPIUM INHALER/CAPSULE (SPIRIVA) INH SCH (07:30)
[2018-10-08] MEDS: CLOPIDOGREL 75 MG TAB PO SCH (08:36)
[2018-10-08] MEDS: MULTIVITAMINS/MINERALS THERAP 1 TAB PO SCH (08:37)
[2018-10-08] MEDS: MAGNESIUM OXIDE 400 MG TAB (MAG-OX) PO SCH (08:37)
[2018-10-08] MEDS: SUCRALFATE 1 GM TAB PO SCH ×4 (08:37→20:05)
[2018-10-08] MEDS: ROSUVASTATIN 10 MG TAB (CRESTOR) PO SCH (08:37)
[2018-10-08] MEDS: AMIODARONE 200 MG TAB (PACERONE) PO SCH (08:37)
[2018-10-08] MEDS: ENOXAPARIN 40 MG/0.4 ML SYRINGE (J1650) SC SCH (08:37)
[2018-10-08] MEDS: ASPIRIN 81 MG ENTERIC TAB PO SCH ×2 (08:37→20:06)
[2018-10-08] MEDS: FLUoxetine 20 MG CAP PO SCH (08:37)
[2018-10-08] MEDS: CARVedilol 6.25 MG TAB PO SCH ×2 (08:38→20:08)
[2018-10-08 09:47] LABS: INR 1.26
--- NOTE | 2018-10-08 09:48 | IPNPDOC ---
Text Note Date of Service The patient was seen on 10/08/18. NOTE No acute events overnight. Nausea and emesis have stopped. He claims that the abd pain is getting worse. He denies any cough, shortness of breath, or chest pain. VSSAF NAD labs - see below A) 48y/o male with chronic pancreatitis and pseudocysts dilated cardiomyopathy recent [place] likely reactive cholecystitis US - still shows dilated GB with pericholecystic fluid P) npo IVF abx IR consult for cholecystostomy drain placement today Cody Bedoya DO VS,Fishbongrisel, I+O VS, Fishbone, I+O Laboratory Tests 10/08/18 06:24 Red Blood Count 4.43, Mean Corpuscular Volume 91.4, Mean Corpuscular Hemoglobin 27.1, Mean Corpuscular Hemoglobin Concent 29.6 L, Red Cell Distribution Width 15.9 H, Neutrophils (%) (Auto) 83.1 H, Lymphocytes (%) (Auto) 9.3 L, Monocytes (%) (Auto) 5.9 H, Eosinophils (%) (Auto) 0.3, Basophils (%) (Auto) 0.5, Neut rophils # (Auto) 11.5 H, Lymphocytes # (Auto) 1.3 L, Monocytes # (Auto) 0.8, Eosinophils # (Auto) 0.0, Basophils # (Auto) 0.1, Calcium Level 8.4 L, Aspartate Amino Transf (AST/SGOT) 13, Alanine Aminotransferase (ALT/SGPT) 12, Alkaline Phosphatase 96, Total Bilirubin 0.3, Total Protein 6.5, Albumin 2.4 L Vital Signs Date Time Temp Pulse Resp B/P (MAP) Pulse Ox O2 Delivery O2 Flow Rate FiO2 10/08/18 09:43 13 10/08/18 08:38 96 131/86 10/08/18 06:00 94 5.0 10/08/18 06:00 96.9 10/04/18 11:22 Room Air I&O- Last 24 Hours up to 6 AM 10/08/18 06:00 Intake Total 1800 ml Output Total 1895 ml Balance -95 ml LAVINIA BEDOYA DO Oct 08, 2018 09:48
--- NOTE | 2018-10-08 09:48 | IPNPDOC ---
Subjective Date Seen The patient was seen on 10/08/18. Subjective Chief Complaint/HPI Pt this morning reports that he is feeling worse. More abd pain, primarily RUQ. Some nausea. Reports an episode overnight when he became suddenly SOB, this last about an hour and has since resolved. This morning he denies any SOB, denies cough. He only has pain in his abdomen. Events since last encounter Pt this morning reports that he is feeling worse. More abd pain, primarily RUQ. Some nausea. Reports an episode overnight when he became suddenly SOB, this last about an hour and has since resolved. This morning he denies any SOB, denies cough. He only has pain in his abdomen. General: Reports: Fatigue Constitutional: Reports: Malaise; Denies: Chills, Fever Skin: Denies: Rash, Lesions Pulmonary: Denies: Dyspnea, Cough Cardiovascular: Denies: Chest Pain, Palpitations Gastrointestinal: Reports: Nausea, Abdominal Pain; Denies: Vomiting, Diarrhea Neurological: Reports: Weakness Psych: Reports: Depression Objective Physical Examination General Exam: Positive: Alert, Cooperative, No Acute Distress Eye Exam: Positive: PERRLA ENT Exam: Positive: Mucous membr. moist/pink Chest Exam: Positive: Clear to auscultation, Diminished Heart Exam: Positive: Rate Normal, Normal S1, Normal S2 Abdomen Exam: Positive: BS Hyperactive, Soft, Tenderness (RUQ with gentle palpation) Extremity Exam: Positive: Normal pulses; Negative: Edema Neuro Exam: Positive: Normal Speech Psych Exam: Positive: Mood NL Assessment /Plan Problems (1) Pancreatitis Status: Acute Problem Text: 10/08 Pain progressed overnight in RUQ, afebrile, WBC increaesd from 9.8 to 13.8 overnight. Given persistent key distention on US, plans of Key drain today per Dr Bedoya. Monitor for temp, persistent elevation in WBC 10/07/18 stable pain/nausea s vomiting today; AF c stable WBC; check abdominal US tc percutaneous cholecystostomy drain favor chronic recurrent pancreatitis 2 long-standing poorly-controlled DM/hyper TG c pseudocysts/necrosis (although this is his first "documented" episode) poor surgical candidate given 07/31/18 ACS/NSTEMI appreciate Dr. Bedoya input-favors observation 10/04/18 CT AP: Impression: 1. Findings consistent with pancreatitis as described above including moderate surrounding peripancreatic fluid collections suggesting pseudocyst as well as possible portions of necrotic pancreatic tissue. Small amount of free fluid. No discrete single drainable collection identified. 2. Mild colitis involving the sigmoid colon cannot be excluded. 3. Resolving bibasilar atelectasis and small residual pleural effusions. (2) Systolic and diastolic CHF, acute on chronic Status: Chronic Problem Text: 3/ BNP up to 70K today (this could be sepsis related given elevation in WBC and persistently distended GB), resp status stable currently, but acutely SOB overnight, will check CXR, given cardiac function and fluid status. 10/07/18 BNP 31,224!!! (07/09/18 714), Na 147 (144); therefore, changed IVF D5NS 20KCL 150H to D10 1/2NS 20 KCL 50 +3L since admission off HD Entresto 09/03/18 TTE Garcia Moderately dilated left ventricle with borderline hypertrophy. Paradoxical septal wall motion and apical akinesis related to right ventricular paced rhythm. Moderate to moderately severe impairment of global resting systolic function (LVEF 30%) Mildly dilated left atrium with impairment of LV diastolic function and elevated mean left atrial pressure. Right heart chamber sizes upper limits of normal with right ventricular hypokinesis and Doppler evidence of moderate pulmonary hypertension. Mildly dilated IVC with slightly reduced respiratory collapse suggestive of central venous pressure of approximately 10 - 15 mmHg. Slight aortic valvular sclerosis with adequate cusp separation but premature cusp closure in keeping with reduced forward stroke volume. Normal aortic root size. Normal-appearing mitral valvular apparatus with "low flow" appearance to leaflet excursion and at least mild to moderate mitral insufficiency. Normal appearing tricuspid valve with very mild insufficiency. No intracardiac mass or pericardial effusion. Pacing leads could be visualized traversing right heart structures. (3) Abdominal pain Status: Acute Problem Text: 2 pancreatitis/cholecystitis stable on IV Dilaudid per PM (4) History of Clostridium difficile infection Problem Text: no indication of recurrence (5) DM2 (diabetes mellitus, type 2) Status: Chronic Problem Text: BG 120-150 stable on SSI (6) CAD (coronary artery disease) Status: Chronic Problem Text: No active symptoms on HD plavix, carvedilol, and aspirin. (7) Hypernatremia Status: Acute Response to Treatment: Improving Problem Text: see CHF Plan/VTE VTE Prophylaxis Ordered?: Yes VS, I&O, 24H, Fishbone Vital Signs/I&O Vital Signs Date Time Temp Pulse Resp B/P (MAP) Pulse Ox O2 Delivery O2 Flow Rate FiO2 10/08/18 08:55 18 10/08/18 08:38 96 131/86 10/08/18 06:00 94 5.0 10/08/18 06:00 96.9 10/04/18 11:22 Room Air I&O- Last 24 Hours up to 6 AM 10/08/18 06:00 Intake Total 1800 ml Output Total 1895 ml Balance -95 ml Laboratory Data 24H LABS Laboratory Tests 2 10/07/18 12:33: Bedside Glucose (Misc Panel) 153H 10/07/18 17:56: Bedside Glucose (Misc Panel) 133H 10/07/18 23:49: Bedside Glucose (Misc Panel) 143H 10/08/18 06:24: Immature Granulocyte % (Auto) 0.9, White Blood Count 13.8H, Red Blood Count 4.43, Hemoglobin 12.0L, Hematocrit 40.5L, Mean Corpuscular Volume 91.4, Mean Corpuscular Hemoglobin 27.1, Mean Corpuscular Hemoglobin Concent 29.6L, Red Cell Distribution Width 15.9H, Platelet Count 286, Neutrophils (%) (Auto) 83.1H, Lymphocytes (%) (Auto) 9.3L, Monocytes (%) (Auto) 5.9H, Eosinophils (%) (Auto) 0.3, Basophils (%) (Auto) 0.5, Neutrophils # (Auto) 11.5H, Lymphocytes # (Auto) 1.3L, Monocytes # (Auto) 0.8, Eosinophils # (Auto) 0.0, Basophils # (Auto) 0.1, Nucleated Red Blood Cells % (auto) 0.0, Anion Gap 8, Glomerular Filtration Rate > 60.0, Blood Urea Nitrogen 5#L, Creatinine 1.01, Sodium Level 144, Potassium Level 4.1, Chloride Level 116H, Carbon Dioxide Level 20L, Calcium Level 8.4L, Aspartate Amino Transf (AST/SGOT) 13, Alanine Aminotransferase (ALT/SGPT) 12, Alkaline Phosphatase 96, Total Bilirubin 0.3, Total Protein 6.5, Albumin 2.4L, OL-Zbr-H-Type Natriuretic Peptide 31125U, Albumin/Globulin Ratio 0.59L, Lipase 138 3/4/19 08:43: CBC/BMP Laboratory Tests 10/08/18 06:24 Red Blood Count 4.43, Mean Corpuscular Volume 91.4, Mean Corpuscular Hemoglobin 27.1, Mean Corpuscular Hemoglobin Concent 29.6 L, Red Cell Distribution Width 15.9 H, Neutrophils (%) (Auto) 83.1 H, Lymphocytes (%) (Auto) 9.3 L, Monocytes (%) (Auto) 5.9 H, Eosinophils (%) (Auto) 0.3, Basophils (%) (Auto) 0.5, Neutrophils # (Auto) 11.5 H, Lymphocytes # (Auto) 1.3 L, Monocytes # (Auto) 0.8, Eosinophils # (Auto) 0.0, Basophils # (Auto) 0.1, Calcium Level 8.4 L, Aspartate Amino Transf (AST/SGOT) 13, Alanine Aminotransferase (ALT/SGPT) 12, Alkaline Phosphatase 96, Total Bilirubin 0.3, Total Protein 6.5, Albumin 2.4 L Attending Note Attending Note Agree with plan and findings documented by DESEAN Leos PA-C Oct 08, 2018 09:48 Zane Alexander MD Oct 09, 2018 11:00
[2018-10-08] MEDS: ONDANSETRON 4MG/2ML VIAL (J2405) IV PRN ×3 (10:44→23:44)
[2018-10-08] MEDS: CIPROFLOXACIN 200 MG in APPROPRIATE DILUENT 1 EA IV SCH ×2 (11:32→22:10)
[2018-10-08] MEDS: METOCLOPRAMIDE INJ 10MG/2ML VIAL (J2765) IV PRN ×2 (11:37→20:07)
[2018-10-08] MEDS: metroNIDAZOLE 500 MG in APPROPRIATE DILUENT 1 EA IV SCH ×2 (12:25→20:05)
[2018-10-08 14:00] VITALS: BP 138/83
--- NOTE | 2018-10-08 14:51 | REP ---
CHEST X-RAY: TWO VIEWS. HISTORY: Dyspnea. COMPARISON STUDY: August 27, 2018 FINDINGS: The patient is rotated somewhat to the left, and today's view is exposed at a relatively low level of inspiration. There is discoid atelectasis in the perihilar regions. Aeration is significantly improved from the August 27, 2018 prior studies. Lateral view suggests blunting of the posterior pleural angles, mild in degree. A multilead pacemaker is seen in the right heart via the left side. IMPRESSION: Prominent heart with pacemaker. Possible small effusions. Bilateral perihilar discoid atelectasis. Improved aeration bilaterally when compared with August 27, 2018. Electronically Signed by Everett Kent MD 10/08/2018 03:24 P
[2018-10-08 22:00] VITALS: BP 122/82
[2018-10-09] MEDS: metroNIDAZOLE 500 MG in APPROPRIATE DILUENT 1 EA IV SCH ×3 (03:47→19:55)
[2018-10-09] MEDS: HYDROMORPHONE HCL 0.5 MG/ 0.5 ML SYRINGE (J1170 PER 1) IV PRN ×6 (03:47→21:01)
[2018-10-09] MEDS: MORPHINE 15 MG SA TAB PO SCH ×3 (05:52→22:00)
[2018-10-09 06:00] VITALS: BP 114/74
[2018-10-09] MEDS: HumaLOG INSULIN (NovoLOG) PER UNIT SC SCH ×3 (06:00→17:50)
[2018-10-09 06:09] LABS: BASO # 0.1 10^3/uL (0.0-0.2); BASO % 0.8 % (0.0-1.0); EOS # 0.2 10^3/uL (0.0-0.50); EOS % 2.1 % (0.0-3.0); HEMATOCRIT 32.4 % (42.0-52.0); HEMOGLOBIN 10.1 g/dl (13.5-17.5); LYMPH # 2.7 10^3/uL (1.5-4.5); LYMPH % 27.1 % (24.0-44.0); MEAN CORPUSCULAR HEMOGLOBIN 27.2 pg (27.0-33.0); MEAN CORPUSCULAR HGB CONC 31.2 g/dl (32.0-36.5); MEAN CORPUSCULAR VOLUME 87.1 fl (80.0-96.0); MONO % 10.4 % (0.0-5.0); NEUTROPHILS # 5.8 10^3/uL (1.8-7.7); NEUTROPHILS % 59.1 % (36.0-66.0); PLATELET COUNT, AUTOMATED 235 10^3/uL (150-450); RED BLOOD COUNT 3.72 10^6/uL (4.30-6.10); WHITE BLOOD COUNT 9.8 10^3/uL (4.0-10.0)
[2018-10-09 06:49] LABS: ALT/SGPT 10 U/L (12-78); BILIRUBIN,TOTAL 0.4 MG/DL (0.2-1.0); BLOOD UREA NITROGEN 9 MG/DL (7-18); CALCIUM LEVEL 7.8 MG/DL (8.5-10.1); CARBON DIOXIDE LEVEL 21 MEQ/L (21-32); CHLORIDE LEVEL 113 MEQ/L (98-107); CREATININE FOR GFR 0.92 MG/DL (0.70-1.30); GLOMERULAR FILTRATION RATE > 60.0 (>56); GLUCOSE, FASTING 95 MG/DL (70-100); POTASSIUM SERUM 3.6 MEQ/L (3.5-5.1); SODIUM LEVEL 143 MEQ/L (136-145); TOTAL PROTEIN 5.8 GM/DL (6.4-8.2); TROPONIN I 0.32 NG/ML (< 0.10)
[2018-10-09] MEDS: SUCRALFATE 1 GM TAB PO SCH ×4 (07:30→20:00)
[2018-10-09] MEDS: TIOTROPIUM INHALER/CAPSULE (SPIRIVA) INH SCH (07:33)
[2018-10-09] MEDS: CLOPIDOGREL 75 MG TAB PO SCH (08:07)
[2018-10-09] MEDS: ASPIRIN 81 MG ENTERIC TAB PO SCH ×2 (08:07→19:59)
[2018-10-09] MEDS: ENOXAPARIN 40 MG/0.4 ML SYRINGE (J1650) SC SCH (08:08)
--- NOTE | 2018-10-09 08:23 | IPNPDOC ---
Text Note Date of Service The patient was seen on 10/09/18. NOTE No acute events overnight. Nausea and emesis have stopped. He denies any cough, shortness of breath, or chest pain. VSSAF NAD abd - soft, TTP epigastric, and RUQ with localized guarding labs - see below A) 48y/o male with chronic pancreatitis and pseudocysts dilated cardiomyopathy recent [place] likely reactive cholecystitis US - still shows dilated GB with pericholecystic fluid P) npo IVF abx IR is going to place a cholecystostomy drain this am Cody Bedoya DO VS,Fishbone, I+O VS, Fishbone, I+O Laboratory Tests 10/09/18 05:28 Red Blood Count 3.72 L, Mean Corpuscular Volume 87.1, Mean Corpuscular Hemoglobin 27.2, Mean Corpuscular Hemoglobin Concent 31.2 L, Red Cell Distribution Width 16.0 H, Neutrophils (%) (Auto) 59.1, Lymphocytes (%) (Auto) 27.1, Monocytes (%) (Auto) 10.4 H, Eosinophils (%) (Auto) 2.1, Basophils (%) (A uto) 0.8, Neutrophils # (Auto) 5.8, Lymphocytes # (Auto) 2.7, Monocytes # (Auto) 1.0 H, Eosinophils # (Auto) 0.2, Basophils # (Auto) 0.1, Calcium Level 7.8 L, Aspartate Amino Transf (AST/SGOT) 11, Alanine Aminotransferase (ALT/SGPT) 10 L, Alkaline Phosphatase 87, Total Bilirubin 0.4, Total Protein 5.8 L, Albumin 2.0 L Vital Signs Date Time Temp Pulse Resp B/P (MAP) Pulse Ox O2 Delivery O2 Flow Rate FiO2 10/09/18 06:00 97.7 84 13 114/74 (87) 97 1.0 10/04/18 11:22 Room Air I&O- Last 24 Hours up to 6 AM 10/09/18 06:00 Intake Total 500 ml Output Total 1075 ml Balance -575 ml LAVINIA BEDOYA DO Oct 09, 2018 08:23
[2018-10-09 08:30] VITALS: BP 120/77
[2018-10-09] MEDS: MULTIVITAMINS/MINERALS THERAP 1 TAB PO SCH (09:52)
[2018-10-09] MEDS: FLUoxetine 20 MG CAP PO SCH (09:52)
[2018-10-09] MEDS: MAGNESIUM OXIDE 400 MG TAB (MAG-OX) PO SCH (09:53)
[2018-10-09] MEDS: ROSUVASTATIN 10 MG TAB (CRESTOR) PO SCH (09:54)
[2018-10-09] MEDS: CARVedilol 6.25 MG TAB PO SCH ×2 (09:54→20:00)
[2018-10-09] MEDS: AMIODARONE 200 MG TAB (PACERONE) PO SCH (09:55)
--- NOTE | 2018-10-09 11:14 | IPNPDOC ---
Subjective Date Seen The patient was seen on 10/09/18. Subjective Chief Complaint/HPI patient reports RUQ pain unchanged. Constitutional: Denies: Chills ENT: Denies: Head Aches Pulmonary: Denies: Dyspnea, Cough Cardiovascular: Denies: Chest Pain, Palpitations Gastrointestinal: Denies: Nausea, Abdominal Pain Genitourinary: Denies: Dysuria Hematologic: Denies: Bruising Endocrine: Denies: Polydipsia Musculoskeletal: Denies: Neck Pain, Back Pain Neurological: Denies: Weakness Psych: Reports: Mood Normal Objective Physical Examination General Exam: Positive: Alert, Cooperative, No Acute Distress Eye Exam: Positive: PERRLA ENT Exam: Positive: Mucous membr. moist/pink Neck Exam: Negative: JVD, thyromegaly Chest Exam: Positive: Clear to auscultation, Diminished Heart Exam: Positive: Rate Normal, Normal S1, Normal S2 Abdomen Exam: Positive: BS Hyperactive, Soft, Tenderness (RUQ with gentle palpation) Extremity Exam: Positive: Normal pulses; Negative: Edema Neuro Exam: Positive: Normal Speech Psych Exam: Positive: Mood NL Assessment /Plan Problems (1) Pancreatitis Status: Acute Problem Text: 3/ Pain progressed overnight in RUQ, afebrile, WBC increaesd from 9.8 to 13.8 overnight. Given persistent key distention on US, plans of Key drain today per Dr Bedoya. Monitor for temp, persistent elevation in WBC 10/07/18 stable pain/nausea s vomiting today; AF c stable WBC; check abdominal US tc percutaneous cholecystostomy drain favor chronic recurrent pancreatitis 2 long-standing poorly-controlled DM/hyper TG c pseudocysts/necrosis (although this is his first "documented" episode) poor surgical candidate given 07/31/18 ACS/NSTEMI appreciate Dr. Bedoya input-favors observation 10/04/18 CT AP: Impression: 1. Findings consistent with pancreatitis as described above including moderate surrounding peripancreatic fluid collections suggesting pseudocyst as well as possible portions of necrotic pancreatic tissue. Small amount of free fluid. No discrete single drainable collection identified. 2. Mild colitis involving the sigmoid colon cannot be excluded. 3. Resolving bibasilar atelectasis and small residual pleural effusions. (2) Systolic and diastolic CHF, acute on chronic Status: Chronic Problem Text: 3/4 BNP up to 70K today (this could be sepsis related given elevation in WBC and persistently distended GB), resp status stable currently, but acutely SOB overnight, will check CXR, given cardiac function and fluid status. 10/07/18 BNP 31,224!!! (07/09/18 714), Na 147 (144); therefore, changed IVF D5NS 20KCL 150H to D10 1/2NS 20 KCL 50 +3L since admission off HD Entresto 09/03/18 TTE Garcia Moderately dilated left ventricle with borderline hypertrophy. Paradoxical septal wall motion and apical akinesis related to right ventricular paced rhythm. Moderate to moderately severe impairment of global resting systolic function (LVEF 30%) Mildly dilated left atrium with impairment of LV diastolic function and elevated mean left atrial pressure. Right heart chamber sizes upper limits of normal with right ventricular hypokinesis and Doppler evidence of moderate pulmonary hypertension. Mildly dilated IVC with slightly reduced respiratory collapse suggestive of central venous pressure of approximately 10 - 15 mmHg. Slight aortic valvular sclerosis with adequate cusp separation but premature cusp closure in keeping with reduced forward stroke volume. Normal aortic root size. Normal-appearing mitral valvular apparatus with "low flow" appearance to leaflet excursion and at least mild to moderate mitral insufficiency. Normal appearing tricuspid valve with very mild insufficiency. No intracardiac mass or pericardial effusion. Pacing leads could be visualized traversing right heart structures. (3) Abdominal pain Status: Acute Response to Treatment: Stable Problem Text: 2 pancreatitis/cholecystitis stable on IV Dilaudid per PM (4) Cholecystitis Status: Chronic Problem Text: To have cholecystostomy placed to resolve acute inflammation and hopefully improve pain. He has been on clopidogrel which was held today. Dr. Bedoya has ordered FFP. (5) History of Clostridium difficile infection Problem Text: no indication of recurrence (6) DM2 (diabetes mellitus, type 2) Status: Chronic Problem Text: BG 120-150 stable on SSI (7) CAD (coronary artery disease) Status: Chronic Problem Text: No active symptoms on HD plavix, carvedilol, and aspirin. (8) Hypernatremia Status: Resolved Response to Treatment: Improving Problem Text: see CHF Plan/VTE VTE Prophylaxis Ordered?: Yes VS, I&O, 24H, Fishbone Vital Signs/I&O Vital Signs Date Time Temp Pulse Resp B/P (MAP) Pulse Ox O2 Delivery O2 Flow Rate FiO2 10/09/18 10:18 18 10/09/18 08:30 97.6 83 120/77 (91) 96 1.0 10/04/18 11:22 Room Air I&O- Last 24 Hours up to 6 AM 10/09/18 06:00 Intake Total 500 ml Output Total 1075 ml Balance -575 ml Laboratory Data 24H LABS Laboratory Tests 2 10/08/18 12:08: Bedside Glucose (Misc Panel) 123H 10/08/18 17:56: Bedside Glucose (Misc Panel) 120H 10/08/18 23:32: Bedside Glucose (Misc Panel) 117H 10/09/18 05:28: Immature Granulocyte % (Auto) 0.5, White Blood Count 9.8, Red Blood Count 3.72L, Hemoglobin 10.1L, Hematocrit 32.4L, Mean Corpuscular Volume 87.1, Mean Corpuscular Hemoglobin 27.2, Mean Corpuscular Hemoglobin Concent 31.2L, Red Cell Distribution Width 16.0H, Platelet Count 235, Neutrophils (%) (Auto) 59.1, Lymphocytes (%) (Auto) 27.1, Monocytes (%) (Auto) 10.4H, Eosinophils (%) (Auto) 2.1, Basophils (%) (Auto) 0.8, Neutrophils # (Auto) 5.8, Lymphocytes # (Auto) 2.7, Monocytes # (Auto) 1.0H, Eosinophils # (Auto) 0.2, Basophils # (Auto) 0.1, Nucleated Red Blood Cells % (auto) 0.0, Anion Gap 9, Glomerular Filtration Rate > 60.0, Blood Urea Nitrogen 9#, Creatinine 0.92, Sodium Level 143, Potassium Level 3.6, Chloride Level 113H, Carbon Dioxide Level 21, Calcium Level 7.8L, Aspartate Amino Transf (AST/SGOT) 11, Alanine Aminotransferase (ALT/SGPT) 10L, Alkaline Phosphatase 87, Total Bilirubin 0.4, Total Protein 5.8L, Albumin 2.0L, Troponin I 0.32H, Albumin/Globulin Ratio 0.53L CBC/BMP Laboratory Tests 10/09/18 05:28 Red Blood Count 3.72 L, Mean Corpuscular Volume 87.1, Mean Corpuscular Hemoglobin 27.2, Mean Corpuscular Hemoglobin Concent 31.2 L, Red Cell Distributi on Width 16.0 H, Neutrophils (%) (Auto) 59.1, Lymphocytes (%) (Auto) 27.1, Monocytes (%) (Auto) 10.4 H, Eosinophils (%) (Auto) 2.1, Basophils (%) (Auto) 0.8, Neutrophils # (Auto) 5.8, Lymphocytes # (Auto) 2.7, Monocytes # (Auto) 1.0 H, Eosinophils # (Auto) 0.2, Basophils # (Auto) 0.1, Calcium Level 7.8 L, Aspartate Amino Transf (AST/SGOT) 11, Alanine Aminotransferase (ALT/SGPT) 10 L, Alkaline Phosphatase 87, Total Bilirubin 0.4, Total Protein 5.8 L, Albumin 2.0 L Zane Alexander MD Oct 09, 2018 11:12
[2018-10-09] MEDS: CIPROFLOXACIN 200 MG in APPROPRIATE DILUENT 1 EA IV SCH ×2 (11:17→22:36)
[2018-10-09] MEDS ORDERED: LIDOCAINE 1% MDV 20ML VIAL As Ordered ONE (14:52)
[2018-10-09 16:38] VITALS: BP 125/78
[2018-10-09] MEDS: ONDANSETRON 4MG/2ML VIAL (J2405) IV PRN (18:02)
[2018-10-09 22:00] VITALS: BP 118/70
[2018-10-10] MEDS: HYDROMORPHONE HCL 0.5 MG/ 0.5 ML SYRINGE (J1170 PER 1) IV PRN ×7 (00:03→23:08)
[2018-10-10] MEDS: metroNIDAZOLE 500 MG in APPROPRIATE DILUENT 1 EA IV SCH ×2 (03:08→17:47)
[2018-10-10 06:00] VITALS: BP 124/73
[2018-10-10] MEDS: MORPHINE 15 MG SA TAB PO SCH ×3 (06:00→21:51)
[2018-10-10] MEDS: HumaLOG INSULIN (NovoLOG) PER UNIT SC SCH ×4 (06:00→18:00)
[2018-10-10 06:29] LABS: BASO # 0.1 10^3/uL (0.0-0.2); BASO % 0.9 % (0.0-1.0); EOS # 0.3 10^3/uL (0.0-0.50); EOS % 3.1 % (0.0-3.0); HEMATOCRIT 33.7 % (42.0-52.0); HEMOGLOBIN 10.2 g/dl (13.5-17.5); LYMPH # 2.1 10^3/uL (1.5-4.5); LYMPH % 21.4 % (24.0-44.0); MEAN CORPUSCULAR HGB CONC 30.3 g/dl (32.0-36.5); MEAN CORPUSCULAR VOLUME 89.2 fl (80.0-96.0); MONO % 10.1 % (0.0-5.0); NEUTROPHILS # 6.4 10^3/uL (1.8-7.7); NEUTROPHILS % 64.1 % (36.0-66.0); PLATELET COUNT, AUTOMATED 221 10^3/uL (150-450); RED BLOOD COUNT 3.78 10^6/uL (4.30-6.10)
[2018-10-10 07:02] LABS: ALBUMIN 2.3 GM/DL (3.2-5.2); ALT/SGPT 11 U/L (12-78); BILIRUBIN,TOTAL 0.4 MG/DL (0.2-1.0); BLOOD UREA NITROGEN 9 MG/DL (7-18); CALCIUM LEVEL 8.1 MG/DL (8.5-10.1); CARBON DIOXIDE LEVEL 23 MEQ/L (21-32); CHLORIDE LEVEL 113 MEQ/L (98-107); GLOMERULAR FILTRATION RATE > 60.0 (>56); GLUCOSE, FASTING 96 MG/DL (70-100); POTASSIUM SERUM 3.4 MEQ/L (3.5-5.1); SODIUM LEVEL 143 MEQ/L (136-145); TOTAL PROTEIN 5.9 GM/DL (6.4-8.2)
[2018-10-10] MEDS: SUCRALFATE 1 GM TAB PO SCH ×4 (07:30→21:17)
[2018-10-10 08:24] VITALS: BP 121/76
[2018-10-10] MEDS ORDERED: POTASSIUM CHLORIDE 10 MEQ SR TABLET PO ONE (08:30)
[2018-10-10] MEDS: MAGNESIUM OXIDE 400 MG TAB (MAG-OX) PO SCH (08:33)
[2018-10-10] MEDS: FLUoxetine 20 MG CAP PO SCH (08:34)
[2018-10-10] MEDS: ROSUVASTATIN 10 MG TAB (CRESTOR) PO SCH (08:34)
[2018-10-10] MEDS: CLOPIDOGREL 75 MG TAB PO SCH (08:34)
[2018-10-10] MEDS: AMIODARONE 200 MG TAB (PACERONE) PO SCH (08:34)
[2018-10-10] MEDS: ASPIRIN 81 MG ENTERIC TAB PO SCH ×2 (08:34→21:18)
[2018-10-10] MEDS: MULTIVITAMINS/MINERALS THERAP 1 TAB PO SCH (08:35)
[2018-10-10] MEDS: CARVedilol 6.25 MG TAB PO SCH ×2 (08:36→21:18)
[2018-10-10] MEDS: ENOXAPARIN 40 MG/0.4 ML SYRINGE (J1650) SC SCH (08:38)
--- NOTE | 2018-10-10 09:07 | REP ---
ULTRASOUND-GUIDED CHOLECYSTOSTOMY DRAINAGE CATHETER PLACEMENT The procedure was performed under the direct supervision of Dr. hamilton. The risks and benefits of the procedure were explained to the patient and informed consent was obtained. The gallbladder was localized using ultrasound guidance. The skin was prepped and draped in a sterile fashion. 1% lidocaine was used as a local anesthetic. Using ultrasound guidance an 8-[place] Skater APDL catheter was inserted using trocar technique. 110 ml of purple colored fluid was withdrawn and sent to lab for analysis. Catheter was affixed to the skin and a sterile dressing was applied. The catheter was connected to a gravity drainage bag. The patient tolerated the procedure well and there were no immediate complications. After the appropriate amount of monitored convalescence the patient was discharged from the department. Reviewed by STUART Velázquez 10/09/2018 04:16 P Electronically Signed by Jude Hamilton MD 10/10/2018 08:58 A
[2018-10-10] MEDS: TIOTROPIUM INHALER/CAPSULE (SPIRIVA) INH SCH (09:35)
[2018-10-10] MEDS: CIPROFLOXACIN 200 MG in APPROPRIATE DILUENT 1 EA IV SCH (11:13)
--- NOTE | 2018-10-10 11:40 | IPNPDOC ---
Subjective Date Seen The patient was seen on 10/10/18. Subjective Chief Complaint/HPI reports pain at site of leigh drain. some nausea no vomiting Per nursing saline lock is overdue to be changed- poor IV access. Patient refuses PICC Constitutional: Denies: Chills, Fever Pulmonary: Denies: Dyspnea, Cough Cardiovascular: Denies: Chest Pain, Palpitations Gastrointestinal: Reports: Nausea, Abdominal Pain, Diarrhea (had loose BM this am x 1); Denies: Vomiting, Constipation Objective Physical Examination General Exam: Positive: Alert, Cooperative, No Acute Distress Eye Exam: Positive: PERRLA ENT Exam: Positive: Mucous membr. moist/pink Neck Exam: Negative: JVD, thyromegaly Chest Exam: Positive: Clear to auscultation, Diminished Heart Exam: Positive: Rate Normal, Normal S1, Normal S2 Abdomen Exam: Positive: BS Hyperactive, Soft, Tenderness (RUQ with gentle palpation and some tenderness LLQ) Extremity Exam: Positive: Normal pulses; Negative: Edema Neuro Exam: Positive: Normal Speech Psych Exam: Positive: Mood NL Assessment /Plan Problems (1) Pancreatitis Status: Acute Problem Text: 10/10 - s/p ruba drain 10/09. Cultures pending. Remains on IV Cipro/Flagyl currently (IV access is poor however - may need PICC if need to continue IV abx much longer, but pt does not want PICC) WBC down, afebrile. diet advanced as tolerated - stillhas only had clears but thought he would like to try to eat something today. / Pain progressed overnight in RUQ, afebrile, WBC increaesd from 9.8 to 13.8 overnight. Given persistent ruba distention on US, plans of Ruba drain today per Dr Bedoya. Monitor for temp, persistent elevation in WBC 10/07/18 stable pain/nausea s vomiting today; AF c stable WBC; check abdominal US tc percutaneous cholecystostomy drain favor chronic recurrent pancreatitis 2 long-standing poorly-controlled DM/hyper TG c pseudocysts/necrosis (although this is his first "documented" episode) poor surgical candidate given 07/31/18 ACS/NSTEMI appreciate Dr. Bedoya input-favors observation 10/04/18 CT AP: Impression: 1. Findings consistent with pancreatitis as described above including moderate surrounding peripancreatic fluid collections suggesting pseudocyst as well as possible portions of necrotic pancreatic tissue. Small amount of free fluid. No discrete single drainable collection identified. 2. Mild colitis involving the sigmoid colon cannot be excluded. 3. Resolving bibasilar atelectasis and small residual pleural effusions. (2) Systolic and diastolic CHF, acute on chronic Status: Chronic Problem Text: 3 BNP up to 70K today (this could be sepsis related given elevation in WBC and persistently distended GB), resp status stable currently, but acutely SOB overnight, will check CXR, given cardiac function and fluid status. 10/07/18 BNP 31,224!!! (07/09/18 714), Na 147 (144); therefore, changed IVF D5NS 20KCL 150H to D10 1/2NS 20 KCL 50 +3L since admission off HD Entresto 09/03/18 TTE Garcia Moderately dilated left ventricle with borderline hypertrophy. Paradoxical septal wall motion and apical akinesis related to right ventricular paced rhythm. Moderate to moderately severe impairment of global resting systolic function (LVEF 30%) Mildly dilated left atrium with impairment of LV diastolic function and elevated mean left atrial pressure. Right heart chamber sizes upper limits of normal with right ventricular hypokinesis and Doppler evidence of moderate pulmonary hypertension. Mildly dilated IVC with slightly reduced respiratory collapse suggestive of central venous pressure of approximately 10 - 15 mmHg. Slight aortic valvular sclerosis with adequate cusp separation but premature cusp closure in keeping with reduced forward stroke volume. Normal aortic root size. Normal-appearing mitral valvular apparatus with "low flow" appearance to leaflet excursion and at least mild to moderate mitral insufficiency. Normal appearing tricuspid valve with very mild insufficiency. No intracardiac mass or pericardial effusion. Pacing leads could be visualized traversing right heart structures. (3) Abdominal pain Status: Acute Response to Treatment: Stable Problem Text: 2 pancreatitis/cholecystitis stable on IV Dilaudid per PM - Patient is refusing MS contin (4) Cholecystitis Status: Chronic Problem Text: 10/10 - s/p cholecystostomy placed to resolve acute inflammation a nd hopefully improve pain. (5) History of Clostridium difficile infection Problem Text: no indication of recurrence (6) DM2 (diabetes mellitus, type 2) Status: Chronic Problem Text: BG 120-150 stable on SSI (7) CAD (coronary artery disease) Status: Chronic Problem Text: No active symptoms on HD plavix, carvedilol, and aspirin. (8) Hypernatremia Status: Resolved Response to Treatment: Improving Problem Text: see CHF Plan/VTE VTE Prophylaxis Ordered?: Yes VS, I&O, 24H, Fishbone Vital Signs/I&O Vital Signs Date Time Temp Pulse Resp B/P (MAP) Pulse Ox O2 Delivery O2 Flow Rate FiO2 10/10/18 10:49 16 10/10/18 08:36 77 121/76 10/10/18 08:24 98.1 95 10/09/18 08:30 1.0 10/04/18 11:22 Room Air I&O- Last 24 Hours up to 6 AM 10/10/18 06:00 Intake Total 1515 ml Output Total 600 ml Balance 915 ml Laboratory Data 24H LABS Laboratory Tests 2 10/09/18 12:30: Bedside Glucose (Misc Panel) 132H 10/09/18 17:48: Bedside Glucose (Misc Panel) 104 10/09/18 23:58: Bedside Glucose (Misc Panel) 99 10/10/18 05:57: Immature Granulocyte % (Auto) 0.4, White Blood Count 10.0, Red Blood Count 3.78L, Hemoglobin 10.2L, Hematocrit 33.7L, Mean Corpuscular Volume 89.2, Mean Corpuscular Hemoglobin 27.0, Mean Corpuscular Hemoglobin Concent 30.3L, Red Cell Distribution Width 16.1H, Platelet Count 221, Neutrophils (%) (Auto) 64.1, Lymphocytes (%) (Auto) 21.4L, Monocytes (%) (Auto) 10.1H, Eosinophils (%) (Auto) 3.1H, Basophils (%) (Auto) 0.9, Neutrophils # (Auto) 6.4, Lymphocytes # (Auto) 2.1, Monocytes # (Auto) 1.0H, Eosinophils # (Auto) 0.3, Basophils # (Auto) 0.1, Nucleated Red Blood Cells % (auto) 0.0, Anion Gap 7L, Glomerular Filtration Rate > 60.0, Blood Urea Nitrogen 9, Creatinine 0.90, Sodium Level 143, Potassium Level 3.4L, Chloride Level 113H, Carbon Dioxide Level 23, Calcium Level 8.1L, Aspartate Amino Transf (AST/SGOT) 9, Alanine Aminotransferase (ALT/SGPT) 11L, Alkaline Phosphatase 86, Total Bilirubin 0.4, Total Protein 5.9L, Albumin 2.3L, Albumin/Globulin Ratio 0.64L CBC/BMP Laboratory Tests 10/10/18 05:57 Red Blood Count 3.78 L, Mean Corpuscular Volume 89.2, Mean Corpuscular Hemoglobin 27.0, Mean Corpuscular Hemoglobin Concent 30.3 L, Red Cell Distribution Width 16.1 H, Neutrophils (%) (Auto) 64.1, Lymphocytes (%) (Auto) 21.4 L, Monocytes (%) (Auto) 10.1 H, Eosinophils (%) (Auto) 3.1 H, Basophils (%) (Auto) 0.9, Neutrophils # (Auto) 6.4, Lymphocytes # (Auto) 2.1, Monocytes # (Auto) 1.0 H, Eosinophils # (Auto) 0.3, Basophils # (Auto) 0.1, Calcium Level 8.1 L, Aspartate Amino Transf (AST/SGOT) 9, Alanine Aminotransferase (ALT/SGPT) 11 L, Alkaline Phosphatase 86, Total Bilirubin 0.4, Total Protein 5.9 L, Albumin 2.3 L Microbiology Microbiology 10/09/18 Body Fluid Culture, Received Pending Attending Note Attending Note IV access lost. will change med to po since the current antibiotics are equally effective given po. will ask pain consult for f/u re his pain meds as we transition to oral dosing. DANIEL TOUSSAINT PA-C Oct 10, 2018 11:40 Zane Alexander MD Oct 10, 2018 12:29
[2018-10-10] MEDS ORDERED: oxyCODONE 5MG TAB PO PRN (12:30)
[2018-10-10] MEDS ORDERED: HYDROmorphone HCL 2 MG/ML 1ML VIAL (J1170) IV PRN (12:45)
[2018-10-10] MEDS ORDERED: metroNIDAZOLE 500 MG in APPROPRIATE DILUENT 1 EA IV SCH (13:00)
[2018-10-10] MEDS: ONDANSETRON 4MG/2ML VIAL (J2405) IV SCH ×2 (13:37→18:36)
[2018-10-10 14:00] VITALS: BP 143/84
[2018-10-10] MEDS ORDERED: metroNIDAZOLE (FLAGYL) 500 MG TAB PO SCH (14:00)
[2018-10-10] MEDS: METOCLOPRAMIDE INJ 10MG/2ML VIAL (J2765) IV PRN (16:48)
[2018-10-10] MEDS ORDERED: CIPROFLOXACIN 500 MG TAB PO SCH (18:00)
[2018-10-10 22:00] VITALS: BP 126/83
[2018-10-10] MEDS: CIPROFLOXACIN 400 MG in APPROPRIATE DILUENT 1 EA IV SCH (23:08)
[2018-10-11] MEDS: metroNIDAZOLE 500 MG in APPROPRIATE DILUENT 1 EA IV SCH ×3 (01:18→18:19)
[2018-10-11] MEDS: ONDANSETRON 4MG/2ML VIAL (J2405) IV SCH ×4 (01:18→18:19)
[2018-10-11] MEDS: HYDROMORPHONE HCL 0.5 MG/ 0.5 ML SYRINGE (J1170 PER 1) IV PRN ×6 (03:03→22:31)
[2018-10-11 06:00] VITALS: BP 141/82
[2018-10-11] MEDS: MORPHINE 15 MG SA TAB PO SCH ×3 (06:00→21:39)
[2018-10-11] MEDS: HumaLOG INSULIN (NovoLOG) PER UNIT SC SCH ×5 (06:00→21:00)
[2018-10-11 06:13] LABS: BASO # 0.1 10^3/uL (0.0-0.2); BASO % 1.1 % (0.0-1.0); EOS # 0.3 10^3/uL (0.0-0.50); HEMATOCRIT 32.7 % (42.0-52.0); LYMPH # 2.3 10^3/uL (1.5-4.5); LYMPH % 22.8 % (24.0-44.0); MEAN CORPUSCULAR HEMOGLOBIN 26.8 pg (27.0-33.0); MEAN CORPUSCULAR HGB CONC 30.6 g/dl (32.0-36.5); MEAN CORPUSCULAR VOLUME 87.7 fl (80.0-96.0); MONO # 1.1 10^3/uL (0.0-0.8); NEUTROPHILS # 6.2 10^3/uL (1.8-7.7); NEUTROPHILS % 61.7 % (36.0-66.0); PLATELET COUNT, AUTOMATED 251 10^3/uL (150-450); RED BLOOD COUNT 3.73 10^6/uL (4.30-6.10)
[2018-10-11 06:47] LABS: ALBUMIN 2.3 GM/DL (3.2-5.2); ALT/SGPT 10 U/L (12-78); BILIRUBIN,TOTAL 0.3 MG/DL (0.2-1.0); BLOOD UREA NITROGEN 9 MG/DL (7-18); CALCIUM LEVEL 7.9 MG/DL (8.5-10.1); CARBON DIOXIDE LEVEL 23 MEQ/L (21-32); CHLORIDE LEVEL 112 MEQ/L (98-107); CREATININE FOR GFR 0.98 MG/DL (0.70-1.30); GLOMERULAR FILTRATION RATE > 60.0 (>56); GLUCOSE, FASTING 99 MG/DL (70-100); POTASSIUM SERUM 3.5 MEQ/L (3.5-5.1); SODIUM LEVEL 142 MEQ/L (136-145); TOTAL PROTEIN 5.9 GM/DL (6.4-8.2)
[2018-10-11] MEDS: SUCRALFATE 1 GM TAB PO SCH ×4 (07:30→21:39)
[2018-10-11] MEDS: TIOTROPIUM INHALER/CAPSULE (SPIRIVA) INH SCH (08:00)
[2018-10-11] MEDS: ENOXAPARIN 40 MG/0.4 ML SYRINGE (J1650) SC SCH ×2 (09:00→12:01)
--- NOTE | 2018-10-11 09:25 | IPNPDOC ---
Text Note Date of Service The patient was seen on 10/10/18. NOTE No acute events overnight. Nausea and emesis have stopped. He denies any cough, shortness of breath, or chest pain. He had the cholecystostomy drain placed yesterday, and he feels much better today. VSSAF NAD abd - soft, TTP epigastric, and RUQ with localized guarding labs - see below A) 48y/o male with chronic pancreatitis and pseudocysts dilated cardiomyopathy recent ME likely reactive cholecystitis P) slowly advance diet IVF abx keep cholecystostomy drain in place for 2 weeks, then we will obtain a cholangiogram through the drain to make sure the ducts are open, and then remove the drain. will follow as needed. Cody Bedoya DO VS,Kami, I+O VS, Kami, I+O Laboratory Tests 10/11/18 06:00 Red Blood Count 3.73 L, Mean Corpuscular Volume 87.7, Mean Corpuscular Hemoglobin 26.8 L, Mean Corpuscular Hemoglobin Concent 30.6 L, Red Cell Distribution Width 16.3 H, Neutrophils (%) (Auto) 61.7, Lymphocytes (%) (Auto) 22.8 L, Monocytes (%) (Auto) 11.0 H, Eosinophils (%) (Auto) 3.0, Basophils (%) (Auto) 1.1 H, Neutrophils # (Auto) 6.2, Lymphocytes # (Auto) 2.3, Monocytes # (Auto) 1.1 H, Eosinophils # (Auto) 0.3, Basophils # (Auto) 0.1, Calcium Level 7.9 L, Aspartate Amino Transf (AST/SGOT) 9, Alanine Aminotransferase (ALT/SGPT) 10 L, Alkaline Phosphatase 78, Total Bilirubin 0.3, Total Protein 5.9 L, Albumin 2.3 L Vital Signs Date Time Temp Pulse Resp B/P (MAP) Pulse Ox O2 Delivery O2 Flow Rate FiO2 10/11/18 06:33 18 10/11/18 06:00 97.2 82 141/82 (101) 93 10/09/18 08:30 1.0 I&O- Last 24 Hours up to 6 AM 10/11/18 06:00 Intake Total 2130 ml Output Total 1000 ml Balance 1130 ml LAVINIA BEDOYA DO Oct 11, 2018 09:25
[2018-10-11] MEDS: METOCLOPRAMIDE INJ 10MG/2ML VIAL (J2765) IV PRN (09:33)
--- NOTE | 2018-10-11 10:13 | IPNPDOC ---
Subjective Date Seen The patient was seen on 10/11/18. Subjective Chief Complaint/HPI Patient having some nausea this am. No vomiting. Diet was advanced to clears yesterday, but did not tolerate much of this due to nausea. RUQ pain at drain site better today. He had been refusing PT earlier in admission, but would like to restart this now. He does not want to go back to [facility] for rehab, but he does not have 24 hour help in the home. Constitutional: Denies: Chills, Fever Pulmonary: Denies: Dyspnea, Cough Cardiovascular: Denies: Chest Pain, Palpitations Gastrointestinal: Reports: Nausea, Abdominal Pain, Diarrhea (+ BM this am was loose, but not frequent BMs); Denies: Vomiting, Constipation Objective Physical Examination General Exam: Positive: Alert, Cooperative, No Acute Distress Eye Exam: Positive: PERRLA ENT Exam: Positive: Mucous membr. moist/pink Neck Exam: Negative: JVD, thyromegaly Chest Exam: Positive: Clear to auscultation, Diminished Heart Exam: Positive: Rate Normal, Normal S1, Normal S2 Abdomen Exam: Positive: BS Hyperactive, Soft, Tenderness (RUQ with gentle palpation and some tenderness LLQ) Extremity Exam: Positive: Normal pulses; Negative: Edema Neuro Exam: Positive: Normal Speech Psych Exam: Positive: Mood NL Assessment /Plan Problems (1) Cholecystitis Status: Chronic Problem Text: 10/11- s/p cholecystostomy placed to resolve acute inflammation and hopefully improve pain. Per Dr. Bedoya - drain will remain in place x 2 weeks Cultures pending Remains on IV Cipro/Flagyl - will need PICC placed if need to continue IV abx (saline lock site is tenuous) (2) Pancreatitis Status: Acute Problem Text: 10/10 - s/p key drain 10/09. Cultures pending. Remains on IV Cipro/Flagyl currently (IV access is poor however - may need PICC if need to continue IV abx much longer, but pt does not want PICC) WBC down, afebrile. diet advanced as tolerated - stillhas only had clears but thought he would like to try to eat something today. 3/4 Pain progressed overnight in RUQ, afebrile, WBC increaesd from 9.8 to 13.8 overnight. Given persistent key distention on US, plans of Key drain today per Dr Bedoya. Monitor for temp, persistent elevation in WBC 10/07/18 stable pain/nausea s vomiting today; AF c stable WBC; check abdominal US tc percutaneous cholecystostomy drain favor chronic recurrent pancreatitis 2 long-standing poorly-controlled DM/hyper TG c pseudocysts/necrosis (although this is his first "documented" episode) poor surgical candidate given 07/31/18 ACS/NSTEMI appreciate Dr. Bedoya input-favors observation 10/04/18 CT AP: Impression: 1. Findings consistent with pancreatitis as described above including moderate surrounding peripancreatic fluid collections suggesting pseudocyst as well as possible portions of necrotic pancreatic tissue. Small amount of free fluid. No discrete single drainable collection identified. 2. Mild colitis involving the sigmoid colon cannot be excluded. 3. Resolving bibasilar atelectasis and small residual pleural effusions. (3) Abdominal pain Status: Acute Response to Treatment: Stable Problem Text: 2 pancreatitis/cholecystitis stable on IV Dilaudid per PM - Patient is refusing MS contin (4) Systolic and diastolic CHF, acute on chronic Status: Chronic Problem Text: 3/4 BNP up to 70K today (this could be sepsis related given elevation in WBC and persistently distended GB), resp status stable currently, but acutely SOB overnight, will check CXR, given cardiac function and fluid status. 10/07/18 BNP 31,224!!! (07/09/18 714), Na 147 (144); therefore, changed IVF D5NS 20KCL 150H to D10 1/2NS 20 KCL 50 +3L since admission off HD Entresto 09/03/18 TTE Garcia Moderately dilated left ventricle with borderline hypertrophy. Paradoxical septal wall motion and apical akinesis related to right ventricular paced rhythm. Moderate to moderately severe impairment of global resting systolic function (LVEF 30%) Mildly dilated left atrium with impairment of LV diastolic function and elevated mean left atrial pressure. Right heart chamber sizes upper limits of normal with right ventricular hypokinesis and Doppler evidence of moderate pulmonary hypertension. Mildly dilated IVC with slightly reduced respiratory collapse suggestive of central venous pressure of approximately 10 - 15 mmHg. Slight aortic valvular sclerosis with adequate cusp separation but premature cusp closure in keeping with reduced forward stroke volume. Normal aortic root size. Normal-appearing mitral valvular apparatus with "low flow" appearance to leaflet excursion and at least mild to moderate mitral insufficiency. Normal appearing tricuspid valve with very mild insufficiency. No intracardiac mass or pericardial effusion. Pacing leads could be visualized traversing right heart structures. (5) History of Clostridium difficile infection Problem Text: no indication of recurrence (6) DM2 (diabetes mellitus, type 2) Status: Chronic Problem Text: BG 120-150 stable on SSI (7) CAD (coronary artery disease) Status: Chronic Problem Text: No active symptoms on HD plavix, carvedilol, and aspirin. (8) Hypernatremia Status: Resolved Response to Treatment: Improving Problem Text: see CHF (9) Physical deconditioning Status: Chronic Problem Text: 10/11 - He had been refusing Pt earlier in admission, but would like to restart this now. He ruff snot want to go back to [facility] for rehab, but he ruff snot have 24 hour help in the home. Restart Pt - PFS made aware of above issues Plan/VTE VTE Prophylaxis Ordered?: Yes (Lovenox) Disposition restart Pt - patietn refuses to go back to [facility] - see above VS, I&O, 24H, Fishbone Vital Signs/I&O Vital Signs Date Time Temp Pulse Resp B/P (MAP) Pulse Ox O2 Delivery O2 Flow Rate FiO2 10/11/18 09:34 16 10/11/18 06:00 97.2 82 141/82 (101) 93 10/09/18 08:30 1.0 I&O- Last 24 Hours up to 6 AM 10/11/18 06:00 Intake Total 2130 ml Output Total 1000 ml Balance 1130 ml Laboratory Data 24H LABS Laboratory Tests 2 10/10/18 11:41: Bedside Glucose (Misc Panel) 105 10/10/18 18:03: Bedside Glucose (Misc Panel) 102 10/11/18 00:15: Bedside Glucose (Misc Panel) 102 10/11/18 06:00: Immature Granulocyte % (Auto) 0.4, White Blood Count 10.0, Red Blood Count 3.73L, Hemoglobin 10.0L, Hematocrit 32.7L, Mean Corpuscular Volume 87.7, Mean Corpuscular Hemoglobin 26.8L, Mean Corpuscular Hemoglobin Concent 30.6L, Red Cell Distribution Width 16.3H, Platelet Count 251, Neutrophils (%) (Auto) 61.7, Lymphocytes (%) (Auto) 22.8L, Monocytes (%) (Auto) 11.0H, Eosinophils (%) (Auto) 3.0, Basophils (%) (Auto) 1.1H, Neutrophils # (Auto) 6.2, Lymphocytes # (Auto) 2.3, Monocytes # (Auto) 1.1H, Eosinophils # (Auto) 0.3, Basophils # (Auto) 0.1, Nucleated Red Blood Cells % (auto) 0.0, Anion Gap 7L, Glomerular Filtration Rate > 60.0, Blood Urea Nitrogen 9, Creatinine 0.98, Sodium Level 142, Potassium Level 3.5, Chloride Level 112H, Carbon Dioxide Level 23, Calcium Level 7.9L, Aspartate Amino Transf (AST/SGOT) 9, Alanine Aminotransferase (ALT/SGPT) 10L, Alkaline Phosphatase 78, Total Bilirubin 0.3, Total Protein 5.9L, Albumin 2.3L, Albumin/Globulin Ratio 0.64L CBC/BMP Laboratory Tests 10/11/18 06:00 Red Blood Count 3.73 L, Mean Corpuscular Volume 87.7, Mean Corpuscular Hemoglobin 26.8 L, Mean Corpuscular Hemoglobin Concent 30.6 L, Red Cell Distribution Width 16.3 H, Neutrophils (%) (Auto) 61.7, Lymphocytes (%) (Auto) 22.8 L, Monocytes (%) (Auto) 11.0 H, Eosinophils (%) (Auto) 3.0, Basophils (%) (Auto) 1.1 H, Neutrophils # (Auto) 6.2, Lymphocytes # (Auto) 2.3, Monocytes # (Auto) 1.1 H, Eosinophils # (Auto) 0.3, Basophils # (Auto) 0.1, Calcium Level 7.9 L, Aspartate Amino Transf (AST/SGOT) 9, Alanine Aminotransferase (ALT/SGPT) 10 L, Alkaline Phosphatase 78, Total Bilirubin 0.3, Total Protein 5.9 L, Albumin 2.3 L Microbiology Microbiology 10/09/18 Body Fluid Culture, Received Pending Attending Note Attending Note Slow to improve nausea. Even as drain of infected/inflamed GB is in place the i nflamed organ remains. May be slow to improve. DANIEL TOUSSAINT PA-C Oct 11, 2018 10:13 Zane Alexander MD Oct 11, 2018 10:49
[2018-10-11] MEDS: ASPIRIN 81 MG ENTERIC TAB PO SCH ×2 (12:01→21:40)
[2018-10-11] MEDS: MULTIVITAMINS/MINERALS THERAP 1 TAB PO SCH (12:01)
[2018-10-11] MEDS: CARVedilol 6.25 MG TAB PO SCH ×2 (12:02→21:40)
[2018-10-11] MEDS: AMIODARONE 200 MG TAB (PACERONE) PO SCH (12:02)
[2018-10-11] MEDS: FLUoxetine 20 MG CAP PO SCH (12:02)
[2018-10-11] MEDS: CLOPIDOGREL 75 MG TAB PO SCH (12:02)
[2018-10-11] MEDS: ROSUVASTATIN 10 MG TAB (CRESTOR) PO SCH (12:03)
[2018-10-11] MEDS: MAGNESIUM OXIDE 400 MG TAB (MAG-OX) PO SCH (12:03)
[2018-10-11] MEDS: CIPROFLOXACIN 400 MG in APPROPRIATE DILUENT 1 EA IV SCH ×2 (12:04→22:18)
[2018-10-11 14:00] VITALS: BP 135/88
[2018-10-11 22:00] VITALS: BP 132/82
[2018-10-12] MEDS: metroNIDAZOLE 500 MG in APPROPRIATE DILUENT 1 EA IV SCH (01:32)
[2018-10-12] MEDS: ONDANSETRON 4MG/2ML VIAL (J2405) IV SCH ×4 (01:32→19:15)
[2018-10-12] MEDS: HYDROMORPHONE HCL 0.5 MG/ 0.5 ML SYRINGE (J1170 PER 1) IV PRN ×3 (01:59→13:16)
[2018-10-12 06:00] VITALS: BP 126/76
[2018-10-12] MEDS: MORPHINE 15 MG SA TAB PO SCH ×3 (06:02→22:13)
[2018-10-12 06:24] LABS: BASO # 0.1 10^3/uL (0.0-0.2); BASO % 0.8 % (0.0-1.0); EOS # 0.3 10^3/uL (0.0-0.50); EOS % 2.3 % (0.0-3.0); HEMATOCRIT 34.3 % (42.0-52.0); HEMOGLOBIN 10.4 g/dl (13.5-17.5); LYMPH # 2.5 10^3/uL (1.5-4.5); MEAN CORPUSCULAR HEMOGLOBIN 27.2 pg (27.0-33.0); MEAN CORPUSCULAR HGB CONC 30.3 g/dl (32.0-36.5); MEAN CORPUSCULAR VOLUME 89.6 fl (80.0-96.0); MONO # 1.3 10^3/uL (0.0-0.8); MONO % 11.7 % (0.0-5.0); NEUTROPHILS # 6.8 10^3/uL (1.8-7.7); NEUTROPHILS % 61.7 % (36.0-66.0); PLATELET COUNT, AUTOMATED 263 10^3/uL (150-450); RED BLOOD COUNT 3.83 10^6/uL (4.30-6.10)
[2018-10-12 06:49] LABS: ALBUMIN 2.1 GM/DL (3.2-5.2); ALT/SGPT 9 U/L (12-78); BILIRUBIN,TOTAL 0.3 MG/DL (0.2-1.0); BLOOD UREA NITROGEN 8 MG/DL (7-18); CALCIUM LEVEL 8.2 MG/DL (8.5-10.1); CARBON DIOXIDE LEVEL 22 MEQ/L (21-32); CHLORIDE LEVEL 112 MEQ/L (98-107); CREATININE FOR GFR 0.94 MG/DL (0.70-1.30); GLOMERULAR FILTRATION RATE > 60.0 (>56); GLUCOSE, FASTING 87 MG/DL (70-100); POTASSIUM SERUM 4.1 MEQ/L (3.5-5.1); SODIUM LEVEL 141 MEQ/L (136-145); TOTAL PROTEIN 5.9 GM/DL (6.4-8.2)
[2018-10-12] MEDS: TIOTROPIUM INHALER/CAPSULE (SPIRIVA) INH SCH (07:23)
[2018-10-12] MEDS: HumaLOG INSULIN (NovoLOG) PER UNIT SC SCH ×4 (07:30→21:00)
[2018-10-12 08:13] VITALS: BP 136/92
[2018-10-12] MEDS: SUCRALFATE 1 GM TAB PO SCH ×4 (08:20→21:05)
[2018-10-12] MEDS: CLOPIDOGREL 75 MG TAB PO SCH (09:00)
[2018-10-12] MEDS: ROSUVASTATIN 10 MG TAB (CRESTOR) PO SCH (09:00)
[2018-10-12] MEDS: CARVedilol 6.25 MG TAB PO SCH ×2 (09:00→21:06)
[2018-10-12] MEDS: MULTIVITAMINS/MINERALS THERAP 1 TAB PO SCH (09:00)
[2018-10-12] MEDS: AMIODARONE 200 MG TAB (PACERONE) PO SCH (09:00)
[2018-10-12] MEDS: ASPIRIN 81 MG ENTERIC TAB PO SCH ×2 (09:00→21:06)
[2018-10-12] MEDS: FLUoxetine 20 MG CAP PO SCH (09:00)
[2018-10-12] MEDS: MAGNESIUM OXIDE 400 MG TAB (MAG-OX) PO SCH (09:00)
[2018-10-12] MEDS: METOCLOPRAMIDE INJ 10MG/2ML VIAL (J2765) IV PRN (09:18)
--- NOTE | 2018-10-12 09:44 | IPNPDOC ---
Subjective Date Seen The patient was seen on 10/12/18. Subjective Chief Complaint/HPI c/o abd pain and n/v last evening after eating onion rings for lunch (brought in by family) and then peanut butter sandwich last night (someone elses tray) Still with abd pain and nausea. + Loose BMs about twice a day - stable over last few days Constitutional: Denies: Chills, Fever Pulmonary: Denies: Dyspnea, Cough Cardiovascular: Denies: Chest Pain Gastrointestinal: Reports: Nausea, Vomiting, Abdominal Pain, Diarrhea; Denies: Constipation Genitourinary: Denies: Dysuria Objective Physical Examination General Exam: Positive: Alert, Cooperative, No Acute Distress Eye Exam: Positive: PERRLA ENT Exam: Positive: Mucous membr. moist/pink Neck Exam: Negative: JVD, thyromegaly Chest Exam: Positive: Clear to auscultation, Diminished Heart Exam: Positive: Rate Normal, Normal S1, Normal S2 Abdomen Exam: Positive: BS Hyperactive, Soft, Tenderness (Tender RUQ, RLQ, LLQ. ) Extremity Exam: Positive: Normal pulses; Negative: Edema Neuro Exam: Positive: Normal Speech Psych Exam: Positive: Mood NL Assessment /Plan Problems (1) Cholecystitis Status: Chronic Problem Text: 10/11- s/p cholecystostomy placed to resolve acute inflammation and hopefully improve pain. Per Dr. Bedoya - drain will remain in place x 2 weeks Cultures pending grew few Klebsiella sensitive to Levaquin Remains on IV Cipro/Flagyl - will need PICC placed if need to continue IV abx (saline lock site is tenuous) (2) Pancreatitis Status: Acute Problem Text: 10/12 - s/p key drain 10/09. Patient and Significant other advised that he needs to follow a LOW FAT diet forever. He is aware now that onion rings are not a good choice now or ever considering his chronic condition 3/ Pain progressed overnight in RUQ, afebrile, WBC increaesd from 9.8 to 13.8 overnight. Given persistent key distention on US, plans of Key drain today per Dr Bedoya. Monitor for temp, persistent elevation in WBC 10/07/18 stable pain/nausea s vomiting today; AF c stable WBC; check abdominal US tc percutaneous cholecystostomy drain favor chronic recurrent pancreatitis 2 long-standing poorly-controlled DM/hyper TG c pseudocysts/necrosis (although this is his first "documented" episode) poor surgical candidate given 07/31/18 ACS/NSTEMI appreciate Dr. Bedoya input-favors observation 10/04/18 CT AP: Impression: 1. Findings consistent with pancreatitis as described above including moderate surrounding peripancreatic fluid collections suggesting pseudocyst as well as possible portions of necrotic pancreatic tissue. Small amount of free fluid. No discrete single drainable collection identified. 2. Mild colitis involving the sigmoid colon cannot be excluded. 3. Resolving bibasilar atelectasis and small residual pleural effusions. (3) Abdominal pain Status: Acute Response to Treatment: Stable Problem Text: 2 pancreatitis/cholecystitis stable on IV Dilaudid per PM - Patient is refusing MS diane Cuellar to switch to po Dilaudid (4) Systolic and diastolic CHF, acute on chronic Status: Chronic Problem Text: 3/4 BNP up to 70K today (this could be sepsis related given elevation in WBC and persistently distended GB), resp status stable currently, but acutely SOB overnight, will check CXR, given cardiac function and fluid status. 10/07/18 BNP 31,224!!! (07/09/18 714), Na 147 (144); therefore, changed IVF D5NS 20KCL 150H to D10 1/2NS 20 KCL 50 +3L since admission off HD Entresto 09/03/18 TTE Garcia Moderately dilated left ventricle with borderline hypertrophy. Paradoxical septal wall motion and apical akinesis related to right ventricular paced rhythm. Moderate to moderately severe impairment of global resting systolic function (LVEF 30%) Mildly dilated left atrium with impairment of LV diastolic function and elevated mean left atrial pressure. Right heart chamber sizes upper limits of normal with right ventricular hypokinesis and Doppler evidence of moderate pulmonary hypertension. Mildly dilated IVC with slightly reduced respiratory collapse suggestive of central venous pressure of approximately 10 - 15 mmHg. Slight aortic valvular sclerosis with adequate cusp separation but premature cusp closure in keeping with reduced forward stroke volume. Normal aortic root size. Normal-appearing mitral valvular apparatus with "low flow" appearance to le aflet excursion and at least mild to moderate mitral insufficiency. Normal appearing tricuspid valve with very mild insufficiency. No intracardiac mass or pericardial effusion. Pacing leads could be visualized traversing right heart structures. (5) History of Clostridium difficile infection Problem Text: C, Diff was negative 2/3. Having loose Bms but only about 2/day. Has some lower abd tenderness. May consider repeating C. Diff if WBC rises or diarrhea increases or pain increases. (6) DM2 (diabetes mellitus, type 2) Status: Chronic Problem Text: BG 120-150 stable on SSI (7) CAD (coronary artery disease) Status: Chronic Problem Text: No active symptoms on HD plavix, carvedilol, and aspirin. (8) Hypernatremia Status: Resolved Response to Treatment: Improving Problem Text: see CHF (9) Physical deconditioning Status: Chronic Problem Text: 10/12 - restarted PT yesterday. He does not want to go back to [facility] for rehab, but does not have 24 hour help at home 10/11 - He had been refusing Pt earlier in admission, but would like to restart this now. He ruff snot want to go back to [facility] for rehab, but he ruff snot have 24 hour help in the home. Restart Pt - PFS made aware of above issues Plan/VTE VTE Prophylaxis Ordered?: Yes (Lovenox) Plan Therapy: PT VS, I&O, 24H, Fishbone Vital Signs/I&O Vital Signs Date Time Temp Pulse Resp B/P (MAP) Pulse Ox O2 Delivery O2 Flow Rate FiO2 10/12/18 09:05 18 94 10/12/18 08:13 98.2 80 136/92 (107) 10/09/18 08:30 1.0 I&O- Last 24 Hours up to 6 AM 10/12/18 06:00 Intake Total 1170 ml Output Total 1775 ml Balance -605 ml Laboratory Data 24H LABS Laboratory Tests 2 10/11/18 11:29: Bedside Glucose (Misc Panel) 125H 10/11/18 17:33: Bedside Glucose (Misc Panel) 121H 10/12/18 05:41: Immature Granulocyte % (Auto) 0.5, White Blood Count 11.0H, Red Blood Count 3.83L, Hemoglobin 10.4L, Hematocrit 34.3L, Mean Corpuscular Volume 89.6, Mean Corpuscular Hemoglobin 27.2, Mean Corpuscular Hemoglobin Concent 30.3L, Red Cell Distribution Width 16.6H, Platelet Count 263, Neutrophils (%) (Auto) 61.7, Lymphocytes (%) (Auto) 23.0L, Monocytes (%) (Auto) 11.7H, Eosinophils (%) (Auto) 2.3, Basophils (%) (Auto) 0.8, Neutrophils # (Auto) 6.8, Lymphocytes # (Auto) 2.5, Monocytes # (Auto) 1.3H, Eosinophils # (Auto) 0.3, Basophils # (Auto) 0.1, Nucleated Red Blood Cells % (auto) 0.0, Anion Gap 7L, Glomerular Filtration Rate > 60.0, Blood Urea Nitrogen 8, Creatinine 0.94, Sodium Level 141, Potassium Level 4.1, Chloride Level 112H, Carbon Dioxide Level 22, Calcium Level 8.2L, Aspartate Amino Transf (AST/SGOT) 24, Alanine Aminotransferase (ALT/SGPT) 9L, Alkaline Phosphatase 74, Total Bilirubin 0.3, Total Protein 5.9L, Albumin 2.1L, Albumin/Globulin Ratio 0.55L CBC/BMP Laboratory Tests 10/12/18 05:41 Red Blood Count 3.83 L, Mean Corpuscular Volume 89.6, Mean Corpuscular Hemoglobin 27.2, Mean Corpuscular Hemoglobin Concent 30.3 L, Red Cell Distribution Width 16.6 H, Neutrophils (%) (Auto) 61.7, Lymphocytes (%) (Auto) 23.0 L, Monocytes (%) (Auto) 11.7 H, Eosinophils (%) (Auto) 2.3, Basophils (%) (Auto) 0.8, Neutrophils # (Auto) 6.8, Lymphocytes # (Auto) 2.5, Monocytes # (Auto) 1.3 H, Eosinophils # (Auto) 0.3, Basophils # (Auto) 0.1, Calcium Level 8.2 L, Aspartate Amino Transf (AST/SGOT) 24, Alanine Aminotransferase (ALT/SGPT) 9 L, Alkaline Phosphatase 74, Total Bilirubin 0.3, Total Protein 5.9 L, Albumin 2.1 L Microbiology Microbiology 10/09/18 Body Fluid Culture - Final, Complete Klebsiella Pneumoniae DANIEL TOUSSAINT PA-C Oct 12, 2018 09:44
[2018-10-12] MEDS: ENOXAPARIN 40 MG/0.4 ML SYRINGE (J1650) SC SCH (10:19)
[2018-10-12] MEDS: CIPROFLOXACIN 400 MG in APPROPRIATE DILUENT 1 EA IV SCH (11:40)
[2018-10-12 14:10] VITALS: BP 129/89
--- NOTE | 2018-10-12 14:15 | IPN ---
DATE OF SERVICE: 10/09/2018 REFERRING PHYSICIAN: Dr. Zane Alexander. CHIEF COMPLAINT: Abdominal pain. I was asked to see Dae again to recommend oral pain medicine to transition off of Dilaudid. He did have a Sahni drain placement yesterday. He is still unable to tolerate food by mouth. Experienced a lot of nausea and pain. Dr. Alexander has decided to keep him on IV pain medicines for another 24 hours. I went in to see Dae. We have seen him several times during his multiple hospital stays. He is anxious to go home. He states that he does not want to go to an extended care facility and is adamant about going home. I did inform him that we would need to find a pain medication that he can take by mouth. I reviewed pain medicine that he was on a few weeks ago when he was in the rehab unit over at [facility] that included MS Contin 15 mg three times a day and Nucynta 50 mg every 6 hours p.r.n. The patient states that he felt that medicine was ineffective. States "I could get better relief off of aspirin". I would recommend Dilaudid 4 mg every 4-6 hours by mouth. Continue antiemetic, i.e, Zofran three times a day
[2018-10-12] MEDS ORDERED: LIDOCAINE 1% MDV 20ML VIAL As Ordered ONE (15:30)
[2018-10-12] MEDS: HYDROmorphone (DILAUDID) 4 MG TAB PO PRN ×2 (17:04→21:06)
[2018-10-12] MEDS: cefTRIAXone SOD 1 GM in D5W MINI-BAG PLUS 50 ML IV SCH (17:04)
[2018-10-12] MEDS ORDERED: SODIUM CHLORIDE 0.9% INJ 10 ML SYR IV PRN ×2 (17:45→18:00)
[2018-10-12] MEDS: SODIUM CHLORIDE 0.9% INJ 10 ML SYR IV SCH (18:00)
[2018-10-12] MEDS ORDERED: SODIUM CHLORIDE 0.9% INJ 10 ML SYR IV SCH ×2 (18:00)
[2018-10-12] MEDS: SODIUM CHLORIDE 0.9% INJ 10 ML SYR IV PRN (19:15)
[2018-10-12 22:00] VITALS: BP 125/76
[2018-10-13] MEDS: ONDANSETRON 4MG/2ML VIAL (J2405) IV SCH ×4 (01:25→18:36)
[2018-10-13] MEDS: HYDROmorphone (DILAUDID) 4 MG TAB PO PRN ×2 (01:26→09:24)
[2018-10-13 06:00] VITALS: BP 135/85
[2018-10-13] MEDS: MORPHINE 15 MG SA TAB PO SCH ×3 (06:00→21:33)
[2018-10-13] MEDS: SODIUM CHLORIDE 0.9% INJ 10 ML SYR IV SCH ×2 (06:01→17:06)
[2018-10-13] MEDS: HumaLOG INSULIN (NovoLOG) PER UNIT SC SCH ×4 (07:30→21:00)
[2018-10-13 07:50] LABS: HEMATOCRIT 34.1 % (42.0-52.0); HEMOGLOBIN 10.4 g/dl (13.5-17.5); MEAN CORPUSCULAR HEMOGLOBIN 27.2 pg (27.0-33.0); MEAN CORPUSCULAR HGB CONC 30.5 g/dl (32.0-36.5); MEAN CORPUSCULAR VOLUME 89.3 fl (80.0-96.0); PLATELET COUNT, AUTOMATED 276 10^3/uL (150-450); RED BLOOD COUNT 3.82 10^6/uL (4.30-6.10); WHITE BLOOD COUNT 12.6 10^3/uL (4.0-10.0)
[2018-10-13] MEDS: TIOTROPIUM INHALER/CAPSULE (SPIRIVA) INH SCH (07:55)
[2018-10-13 08:04] LABS: BLOOD UREA NITROGEN 8 MG/DL (7-18); CALCIUM LEVEL 8.3 MG/DL (8.5-10.1); CARBON DIOXIDE LEVEL 20 MEQ/L (21-32); CHLORIDE LEVEL 111 MEQ/L (98-107); CREATININE FOR GFR 0.94 MG/DL (0.70-1.30); GLOMERULAR FILTRATION RATE > 60.0 (>56); GLUCOSE, FASTING 81 MG/DL (70-100); POTASSIUM SERUM 3.3 MEQ/L (3.5-5.1); SODIUM LEVEL 142 MEQ/L (136-145)
[2018-10-13] MEDS: MULTIVITAMINS/MINERALS THERAP 1 TAB PO SCH ×2 (09:00→09:22)
[2018-10-13] MEDS: ENOXAPARIN 40 MG/0.4 ML SYRINGE (J1650) SC SCH ×2 (09:00→09:25)
[2018-10-13] MEDS: ROSUVASTATIN 10 MG TAB (CRESTOR) PO SCH (09:21)
[2018-10-13] MEDS: FLUoxetine 20 MG CAP PO SCH (09:21)
[2018-10-13] MEDS: CLOPIDOGREL 75 MG TAB PO SCH (09:22)
[2018-10-13] MEDS: AMIODARONE 200 MG TAB (PACERONE) PO SCH (09:22)
[2018-10-13] MEDS: ASPIRIN 81 MG ENTERIC TAB PO SCH ×2 (09:22→21:00)
[2018-10-13] MEDS: MAGNESIUM OXIDE 400 MG TAB (MAG-OX) PO SCH (09:22)
[2018-10-13] MEDS: SUCRALFATE 1 GM TAB PO SCH ×4 (09:23→21:31)
[2018-10-13] MEDS: CARVedilol 6.25 MG TAB PO SCH ×2 (09:25→21:34)
--- NOTE | 2018-10-13 10:30 | IPN ---
DATE OF SERVICE: 10/13/2017 The patient is here for pancreatitis. Had a distended gallbladder with some elevated white count and was not sure if this was secondary to cholecystitis but given the severe pancreatic pseudocysts at this point, the patient had a percutaneous drainage of his gallbladder. He has had continued drainage from this which has been quite a but and eventually his white count had dropped down associated with this. However, it is bumping back up. He states he is having ongoing pain that has been a problem with him for awhile now. He continues on antibiotics. Otherwise he has been tolerating some minimal diet but not a significant amount. He has not been significantly nauseated today other than his normal nausea. He states his pain is much better with the IV pain medication over of oral pain meds. On his physical exam, his drain is draining bilious fluids quite readily. His abdomen is mildly tender throughout without significant guarding or rebound. IMPRESSION AND PLAN: The patient's issues at this time include the followin. Cholecystitis stable. I anticipate given that this is normal appearing that continue with the cholecystostomy tube with there are so many other confounding issues, it is reasonable to avoid/rule out cholecystitis as an issue. However, he may have some ongoing inflammatory changes around his pancreas which is contributing to his current issue with normal LFTs most recently and lipase. It may just be these pancreatic pseudocysts or chronic low grade laboratory changes associated with his pancreatitis. I would continue with a low-fat diet and see how he does. He may just need better pain control overall but otherwise no operative intervention is necessary. 2. From a vital signs standpoint, he has been afebrile and thus I do not feel that he has developed pancreatic necrosis/infected pancreas at this time. He actually looks relatively well from a clinical standpoint and not septic appearing. Thus at this point, I would recommend continued routine workup for an elevated white count and followup and I will see the patient tomorrow unless there is some other questions you have, please contact me.
[2018-10-13] MEDS ORDERED: POTASSIUM CHLORIDE 10 MEQ SR TABLET PO ONE (13:00)
[2018-10-13 14:00] VITALS: BP 127/72
[2018-10-13] MEDS: cefTRIAXone SOD 1 GM in D5W MINI-BAG PLUS 50 ML IV SCH (16:10)
[2018-10-13 22:00] VITALS: BP 124/76
[2018-10-14] MEDS: SODIUM CHLORIDE 0.9% INJ 10 ML SYR IV PRN (00:45)
[2018-10-14] MEDS: ONDANSETRON 4MG/2ML VIAL (J2405) IV SCH ×4 (00:45→18:05)
[2018-10-14] MEDS: SODIUM CHLORIDE 0.9% INJ 10 ML SYR IV SCH ×2 (05:54→18:05)
[2018-10-14] MEDS: MORPHINE 15 MG SA TAB PO SCH ×3 (05:54→21:03)
[2018-10-14 06:00] VITALS: BP 132/81
[2018-10-14 06:07] LABS: HEMATOCRIT 30.7 % (42.0-52.0); HEMOGLOBIN 9.5 g/dl (13.5-17.5); MEAN CORPUSCULAR HEMOGLOBIN 27.1 pg (27.0-33.0); MEAN CORPUSCULAR HGB CONC 30.9 g/dl (32.0-36.5); MEAN CORPUSCULAR VOLUME 87.7 fl (80.0-96.0); PLATELET COUNT, AUTOMATED 279 10^3/uL (150-450); WHITE BLOOD COUNT 7.5 10^3/uL (4.0-10.0)
[2018-10-14 06:53] LABS: BLOOD UREA NITROGEN 9 MG/DL (7-18); CALCIUM LEVEL 7.9 MG/DL (8.5-10.1); CARBON DIOXIDE LEVEL 25 MEQ/L (21-32); CHLORIDE LEVEL 111 MEQ/L (98-107); CREATININE FOR GFR 0.99 MG/DL (0.70-1.30); GLOMERULAR FILTRATION RATE > 60.0 (>56); GLUCOSE, FASTING 83 MG/DL (70-100); POTASSIUM SERUM 3.6 MEQ/L (3.5-5.1); SODIUM LEVEL 144 MEQ/L (136-145)
[2018-10-14] MEDS: HumaLOG INSULIN (NovoLOG) PER UNIT SC SCH ×4 (07:22→20:36)
[2018-10-14] MEDS: TIOTROPIUM INHALER/CAPSULE (SPIRIVA) INH SCH (07:34)
[2018-10-14] MEDS: MULTIVITAMINS/MINERALS THERAP 1 TAB PO SCH ×2 (08:59→09:00)
[2018-10-14] MEDS: FLUoxetine 20 MG CAP PO SCH ×2 (08:59→09:00)
[2018-10-14] MEDS: ASPIRIN 81 MG ENTERIC TAB PO SCH ×2 (08:59→21:03)
[2018-10-14] MEDS: CLOPIDOGREL 75 MG TAB PO SCH ×2 (08:59→09:05)
[2018-10-14] MEDS: ENOXAPARIN 40 MG/0.4 ML SYRINGE (J1650) SC SCH (09:00)
[2018-10-14] MEDS: AMIODARONE 200 MG TAB (PACERONE) PO SCH (09:01)
[2018-10-14] MEDS: ROSUVASTATIN 10 MG TAB (CRESTOR) PO SCH (09:01)
[2018-10-14] MEDS: SUCRALFATE 1 GM TAB PO SCH ×4 (09:03→21:02)
[2018-10-14] MEDS: CARVedilol 6.25 MG TAB PO SCH ×2 (09:03→21:04)
[2018-10-14] MEDS: MAGNESIUM OXIDE 400 MG TAB (MAG-OX) PO SCH (09:04)
--- NOTE | 2018-10-14 13:32 | IPN ---
DATE: 10/13/2018 The patient is seen today [facility]. He is here for pancreatitis. He has a cholecystostomy tube in. It seems to be draining well, rather dark bile. He also has end-stage heart failure. He is a type 1 diabetic, and he has been a smoker for most of his adult life. Today he denies any fever or chills. Denies any coughing or shortness of breath. Not having chest pains or palpitations. Has some abdominal pain but seems controlled. Has some nausea at times. He reports that his pain relief from his oral Dilaudid is not as good as IV push, which would be expected. Currently he is getting ceftriaxone IV, the oral morphine, sliding scale insulin, Zofran, albuterol ipratropium nebulizers, Reglan injection, magnesium oxide, multivitamin with minerals, Lovenox, Spiriva, aspirin, Coreg, sucralfate, as needed Tylenol, as needed albuterol, as needed Atarax, nitroglycerin, Compazine. He is on amiodarone, Plavix, Crestor and Prozac. On examination, his temperature is 97.8, blood pressure 133/78, pulse 76 and regular. He is awake and alert, appears chronically ill but not in any distress. His complexion is somewhat sallow. There is no neck masses, tenderness or adenopathy. No carotid bruits. Lungs: Show some scattered rhonchi, clear with coughing. Heart: Has a regular rhythm. Not hearing any murmur, click or gallop. Abdomen is soft, mildly tender in the epigastrium. He has a cholecystostomy tube in the right upper quadrant. Lower abdomen is nontender. There is no edema. Labs today show a white count of 12,600, hemoglobin 10,400, potassium is 3.3, sodium 142, CO2 of 20, BUN 8, creatinine 0.94. Blood sugars during the last 24 hours have all been below 100. ASSESSMENT: 1. Cholecystitis. Symptomatically, I think he is better and the drain is functioning. 2. Pancreatitis. Seems stable. 3. Diabetes mellitus, type 1. 4. Chronic abdominal pain. 5. Systolic and diastolic congestive heart failure. 6. Ischemic cardiomyopathy. 7. Physical deconditioning. 8. Hyponatremia. 9. Abnormal lung sounds. I think here is an element of smoking-related lung disease. There is some rhonchi in his chest, but he is not complaining of any shortness of breath or coughing. There may be an element of congestive heart failure (CHF) as well. PLAN: The patient will continue on his current medication. Will give him some extra potassium, and he does have nebulizers available to take if he does get symptomatic with cough or chest congestion. He should be headed back to [facility] soon. I do not see him as being able to go back to his home. I am told that his cholecystostomy tube is supposed to stay in a total of 2 weeks. This gentleman is very chronically ill and does not have a good long- term prognosis and when we clear up his surgical problems, he has still got severe cardiac disease. KENDELL
[2018-10-14 14:00] VITALS: BP 120/82
[2018-10-14] MEDS: cefTRIAXone SOD 1 GM in D5W MINI-BAG PLUS 50 ML IV SCH (15:45)
[2018-10-14 22:00] VITALS: BP 110/69
[2018-10-15] MEDS: ONDANSETRON 4MG/2ML VIAL (J2405) IV SCH ×4 (00:59→18:12)
[2018-10-15 06:00] VITALS: BP 121/74
[2018-10-15] MEDS: MORPHINE 15 MG SA TAB PO SCH (06:02)
[2018-10-15] MEDS: SODIUM CHLORIDE 0.9% INJ 10 ML SYR IV SCH ×2 (06:03→18:00)
[2018-10-15 06:32] LABS: HEMATOCRIT 31.5 % (42.0-52.0); HEMOGLOBIN 9.5 g/dl (13.5-17.5); MEAN CORPUSCULAR HEMOGLOBIN 26.9 pg (27.0-33.0); MEAN CORPUSCULAR HGB CONC 30.2 g/dl (32.0-36.5); MEAN CORPUSCULAR VOLUME 89.2 fl (80.0-96.0); PLATELET COUNT, AUTOMATED 259 10^3/uL (150-450); RED BLOOD COUNT 3.53 10^6/uL (4.30-6.10); WHITE BLOOD COUNT 8.8 10^3/uL (4.0-10.0)
[2018-10-15 07:03] LABS: BLOOD UREA NITROGEN 9 MG/DL (7-18); CALCIUM LEVEL 7.8 MG/DL (8.5-10.1); CARBON DIOXIDE LEVEL 25 MEQ/L (21-32); CHLORIDE LEVEL 111 MEQ/L (98-107); CREATININE FOR GFR 1.18 MG/DL (0.70-1.30); GLOMERULAR FILTRATION RATE > 60.0 (>56); GLUCOSE, FASTING 132 MG/DL (70-100); POTASSIUM SERUM 3.6 MEQ/L (3.5-5.1); SODIUM LEVEL 144 MEQ/L (136-145)
[2018-10-15] MEDS: TIOTROPIUM INHALER/CAPSULE (SPIRIVA) INH SCH (08:00)
[2018-10-15] MEDS: SUCRALFATE 1 GM TAB PO SCH ×4 (08:36→20:20)
[2018-10-15] MEDS: FLUoxetine 20 MG CAP PO SCH (08:37)
[2018-10-15] MEDS: MULTIVITAMINS/MINERALS THERAP 1 TAB PO SCH (08:37)
[2018-10-15] MEDS: HumaLOG INSULIN (NovoLOG) PER UNIT SC SCH ×4 (08:37→21:00)
[2018-10-15] MEDS: AMIODARONE 200 MG TAB (PACERONE) PO SCH (08:38)
[2018-10-15] MEDS: CARVedilol 6.25 MG TAB PO SCH ×2 (08:38→20:20)
[2018-10-15] MEDS: ROSUVASTATIN 10 MG TAB (CRESTOR) PO SCH (08:38)
[2018-10-15] MEDS: MAGNESIUM OXIDE 400 MG TAB (MAG-OX) PO SCH (08:38)
[2018-10-15] MEDS: ENOXAPARIN 40 MG/0.4 ML SYRINGE (J1650) SC SCH (08:39)
[2018-10-15] MEDS: ASPIRIN 81 MG ENTERIC TAB PO SCH ×2 (08:39→20:20)
[2018-10-15] MEDS: CLOPIDOGREL 75 MG TAB PO SCH (08:39)
[2018-10-15] MEDS: CEFDINIR 300 MG CAP (OMNICEF) PO SCH ×2 (10:55→20:20)
--- NOTE | 2018-10-15 11:52 | IPN ---
DATE OF VISIT: 10/14/2018 The patient is seen today on [facility]. He has not had any fevers. He denies cough or shortness of breath. Denies any chest pain. He does have epigastric pain intermittently. He is on oral Dilaudid as needed. No longer getting any IV. He still has the cholecystostomy draining dark bile. He has been up out of bed a little bit. He remains on ceftriaxone, Dilaudid, insulin coverage, Zofran. He has as needed DuoNebs, although he has not used them in the last few days. Also has not used metoclopramide since Monday. He is on magnesium, multivitamins, Lovenox, Spiriva, aspirin, carvedilol, sucralfate, as needed Tylenol, as needed Ventolin inhaler, as needed for bowel care, as-needed medications for anxiety, chest pains, nausea or pain over and above what the Dilaudid are relieving. He is on amiodarone, Plavix, Prozac, and Crestor. On examination, temperature is 96.6. Blood pressure is 138/89. Pulse is 81 and regular. Respirations are 15. Oxygen saturation is 99% on room air. He appears chronically ill. He is awake and alert. His lungs show some rhonchi at the bases. There is no jugular venous distension. Heart sounds somewhat distant. Abdomen is soft with some mild epigastric tenderness. No masses. He has a cholecystostomy tube in the right side. There is no edema. Labs today show that his white count has gone down to 7500. Hemoglobin is 9.5. Platelet count is 279,000. BUN is 9, creatinine 0.99. Glucose 83. Potassium 3.6. Albumin was 2.1 a few days ago. Other blood sugars done in the last 24 hours ranging between 68-94. ASSESSMENT: 1. Cholecystitis. 2. Pancreatitis. 3. Chronic abdominal pain. Not an unusual sequelae of recurrent pancreatitis. 4. Systolic and diastolic congestive heart failure. Seems controlled. 5. Ischemic cardiomyopathy. 6. history of Clostridium (C) difficile. 7. Diabetes, type 1. 8. Coronary artery disease. 9. Physical deconditioning. PLAN: Patient will continue on his current regimen. No changes are made today. At some point when we know what surgeons feel how he is doing, should be a candidate to return to [facility] for rehab unless he feels that he can go home. He really has quite poor heart function and a lot of issues with abdominal pain and pancreatitis and cholecystitis. I am going to discontinue his as needed morphine given that the he has Dilaudid every 4 hours available. ADDENDUM: I had indicated in my note that we were going to discontinue his oral morphine. I was under the impression that he was getting that as needed as well, but that is a scheduled medication and therefore, will keep him on that unless the pain clinic recommends that we discontinue it.
[2018-10-15] MEDS: SODIUM CHLORIDE 0.9% INJ 10 ML SYR IV PRN ×2 (13:26→21:27)
[2018-10-15 14:00] VITALS: BP 124/77
[2018-10-15] MEDS: HYDROmorphone (DILAUDID) 4 MG TAB PO PRN (20:19)
[2018-10-15] MEDS: METOCLOPRAMIDE INJ 10MG/2ML VIAL (J2765) IV PRN (21:26)
[2018-10-15 22:00] VITALS: BP 133/81
[2018-10-16] MEDS: ONDANSETRON 4MG/2ML VIAL (J2405) IV SCH ×4 (01:50→20:21)
[2018-10-16] MEDS: HYDROmorphone (DILAUDID) 4 MG TAB PO PRN ×3 (01:50→11:41)
[2018-10-16] MEDS: SODIUM CHLORIDE 0.9% INJ 10 ML SYR IV PRN ×2 (01:51→20:23)
[2018-10-16 06:00] VITALS: BP 138/84
[2018-10-16] MEDS: SODIUM CHLORIDE 0.9% INJ 10 ML SYR IV SCH ×2 (06:21→17:13)
[2018-10-16 06:53] LABS: HEMOGLOBIN 9.8 g/dl (13.5-17.5); MEAN CORPUSCULAR HEMOGLOBIN 26.6 pg (27.0-33.0); MEAN CORPUSCULAR HGB CONC 30.6 g/dl (32.0-36.5); PLATELET COUNT, AUTOMATED 274 10^3/uL (150-450); RED BLOOD COUNT 3.68 10^6/uL (4.30-6.10); WHITE BLOOD COUNT 7.6 10^3/uL (4.0-10.0)
[2018-10-16 07:23] LABS: BLOOD UREA NITROGEN 8 MG/DL (7-18); CALCIUM LEVEL 7.9 MG/DL (8.5-10.1); CARBON DIOXIDE LEVEL 25 MEQ/L (21-32); CHLORIDE LEVEL 111 MEQ/L (98-107); CREATININE FOR GFR 0.92 MG/DL (0.70-1.30); GLOMERULAR FILTRATION RATE > 60.0 (>56); GLUCOSE, FASTING 70 MG/DL (70-100); POTASSIUM SERUM 3.6 MEQ/L (3.5-5.1); SODIUM LEVEL 142 MEQ/L (136-145)
[2018-10-16] MEDS: HumaLOG INSULIN (NovoLOG) PER UNIT SC SCH ×4 (07:30→21:00)
[2018-10-16] MEDS: SUCRALFATE 1 GM TAB PO SCH ×4 (07:30→20:21)
[2018-10-16 07:51] VITALS: BP 136/86
[2018-10-16] MEDS: TIOTROPIUM INHALER/CAPSULE (SPIRIVA) INH SCH (08:00)
[2018-10-16] MEDS: ENOXAPARIN 40 MG/0.4 ML SYRINGE (J1650) SC SCH (09:00)
--- NOTE | 2018-10-16 09:53 | DSES ---
DATE OF ADMISSION: 10/05/2018 DATE OF DISCHARGE: PRIMARY CARE PROVIDER: Dr. Connor Hayes. ATTENDING TODAY: Dr. Tiffanie Casanova. HISTORY: This is a 48-year-old male patient who has recently been a resident in subacute rehabilitation at [facility] who has had recent hospitalizations for necrotizing pancreatitis, non-ST elevation myocardial infarction as well as acute kidney injury. His most recent admission was a transfer from subacute rehabilitation for nausea, vomiting recurrently 4-8 days. He had also been not eating well. It was advised to come to the emergency room for evaluation at which time, CT of the abdomen and pelvis revealed acute pancreatis, although the lipase was negative. Patient was feeling much better at the time of admission, although given that he did have recurrent pain and the longevity of his nausea and vomiting, it was recommended that he be admitted to the hospital. He was admitted to medical/surgical on IV fluids, n.p.o. for acute pancreatitis with normal saline, IV Zofran and morphine for antiemetic and pain control. During his hospitalization, general surgery was consulted who recommended placement of cholecystostomy tube followed by cholangiogram. This was completed on 10/09/2018 and will need to remain in place for a total of 2 weeks. Patient was started on IV antibiotics. He did have a slight bump in his white blood cell count peaking at 13.8 and then has steadily trended down. He was initially on Cipro and Flagyl. This was then changed to IV Rocephin and will be transitioned to Cefdinir. He is afebrile. He reports persistent abdominal pain. Given his poor pain control during his hospitalization, he was seen by Racheal Nobles from the pain clinic who recommended that the patient be on oral Dilaudid. At that point, he was on MS-Contin as well as Nucynta. These medications have both been discontinued and he will be continued on Dilaudid at this point. Dr. Iniguez last saw the patient on 10/13/2018. He stated that he felt his cholecystitis was stable, that he may have ongoing inflammatory changes secondary to recurrent pancreatitis. He recommended low fat diet which the patient seems to be tolerating quite well. DISCHARGE DIAGNOSES: 1. Acute cholecystitis. 2. Acute pancreatitis. 3. Diabetes mellitus type I. 4. Chronic abdominal pain. 5. Chronic systolic and diastolic congestive heart failure. 6. Ischemic cardiomyopathy. 7. Physical deconditioning. At this point, the patient is medically stable for discharge. He is refusing transfer back to [facility] acute rehabilitation, although does not have care in place at home to be able to transition home at this time either. I have spoken with nursing as well as [facility] who at this point will work to coordinate further care for the patient. His discharge medications and plan will be summarized at time of discharge from the hospital.
[2018-10-16] MEDS: CEFDINIR 300 MG CAP (OMNICEF) PO SCH ×2 (11:01→20:21)
[2018-10-16] MEDS: MAGNESIUM OXIDE 400 MG TAB (MAG-OX) PO SCH (11:02)
[2018-10-16] MEDS: ROSUVASTATIN 10 MG TAB (CRESTOR) PO SCH (11:02)
[2018-10-16] MEDS: CLOPIDOGREL 75 MG TAB PO SCH (11:02)
[2018-10-16] MEDS: MULTIVITAMINS/MINERALS THERAP 1 TAB PO SCH (11:02)
[2018-10-16] MEDS: FLUoxetine 20 MG CAP PO SCH (11:03)
[2018-10-16] MEDS: ASPIRIN 81 MG ENTERIC TAB PO SCH ×2 (11:03→20:21)
[2018-10-16] MEDS: AMIODARONE 200 MG TAB (PACERONE) PO SCH (11:03)
[2018-10-16] MEDS: CARVedilol 6.25 MG TAB PO SCH ×2 (11:04→20:22)
--- NOTE | 2018-10-16 16:01 | CR ---
DATE OF CONSULTATION: 10/16/2018 REFERRING PHYSICIAN: Provider is Dr. Tiffanie Michael CHIEF COMPLAINT: Uncontrolled abdominal pain with history of pancreatitis. HISTORY OF PRESENT ILLNESS: Dae is a 48-year-old gentleman, known to our service for treatment of uncontrolled abdominal pain secondary to pancreatitis. History of multiple comorbidities. Dr. Michael called today, as the patient was having continued events of severe pain not controlled with current regimen of Dilaudid 4 mg by mouth. She also states that his appetite has been poor today. He is on longterm facility (SNF) status. Reviewed patient's medical records and medication usage in electronic medical record (EMR). Spoke with Dr. Michael. It would be my recommendation to try to hydromorphone HCL (Dilaudid 4 mg tablets) one and one-half tablets every 6 hours four times a day. I spoke with Dr. Michael regarding these recommendations. Encouraged her to call us if he continues to have uncontrolled pain.
[2018-10-16 16:33] LABS: AMYLASE 16 U/L (25-115); LIPASE 74 U/L (73-393)
[2018-10-16] MEDS: HYDROmorphone 2 MG TAB PO SCH (17:13)
--- NOTE | 2018-10-17 00:45 | IPNPDOC ---
Text Note Date of Service The patient was seen on 10/16/18. NOTE Though the patient is SNF status, I saw him today per family request. They voi antoni concern re: his nutrition, as he hasn't had much to eat since last night, and patient complained of worsening/persistent abdominal pain associated. Patient had appeared to be resting comfortably in bed when I entered; he noted abdominal tenderness to palpation, worst in RLQ; abdominal exam otherwise normal. I discussed the situation with Pain Management, and increased Dilaudid per their recommendation. Lipase and amylase were normal. Nutrition assessment recommended considering artificial nutrition. Currently, we have documented that the patient has gained 7 kg during this admission. I recommend that we check daily weights, and recheck an albumin in 7-10 days to check for nutritional progress vs loss, to help determine the best course. VS,Fishbone, I+O VS, Fishbone, I+O Laboratory Tests 10/16/18 06:32 Red Blood Count 3.68 L, Mean Corpuscular Volume 87.0, Mean Corpuscular Hemoglobin 26.6 L, Mean Corpuscular Hemoglobin Concent 30.6 L, Red Cell Distribution Width 16.3 H, Calcium Level 7.9 L Vital Signs Date Time Temp Pulse Resp B/P (MAP) Pulse Ox O2 Delivery O2 Flow Rate FiO2 10/16/18 20:22 79 131/83 10/16/18 17:43 18 10/16/18 07:51 98.1 94 I&O- Last 24 Hours up to 6 AM 10/17/18 06:00 Intake Total 920 ml Output Total 540 ml Balance 380 ml FAUZIA CASTRO DO Oct 17, 2018 00:45
[2018-10-17] MEDS: HYDROmorphone 2 MG TAB PO SCH ×6 (00:48→23:54)
[2018-10-17] MEDS: ONDANSETRON 4MG/2ML VIAL (J2405) IV SCH ×4 (00:48→18:09)
[2018-10-17 06:00] VITALS: BP 139/83
[2018-10-17] MEDS: SODIUM CHLORIDE 0.9% INJ 10 ML SYR IV SCH ×2 (06:00→18:09)
[2018-10-17 07:28] LABS: HEMOGLOBIN 9.8 g/dl (13.5-17.5); MEAN CORPUSCULAR HEMOGLOBIN 26.9 pg (27.0-33.0); MEAN CORPUSCULAR HGB CONC 30.6 g/dl (32.0-36.5); MEAN CORPUSCULAR VOLUME 87.9 fl (80.0-96.0); PLATELET COUNT, AUTOMATED 272 10^3/uL (150-450); RED BLOOD COUNT 3.64 10^6/uL (4.30-6.10); WHITE BLOOD COUNT 8.1 10^3/uL (4.0-10.0)
[2018-10-17] MEDS: SUCRALFATE 1 GM TAB PO SCH ×4 (07:30→20:28)
[2018-10-17] MEDS: HumaLOG INSULIN (NovoLOG) PER UNIT SC SCH ×4 (07:30→21:00)
[2018-10-17 07:45] LABS: BLOOD UREA NITROGEN 9 MG/DL (7-18); CALCIUM LEVEL 7.9 MG/DL (8.5-10.1); CARBON DIOXIDE LEVEL 25 MEQ/L (21-32); CHLORIDE LEVEL 110 MEQ/L (98-107); CREATININE FOR GFR 0.82 MG/DL (0.70-1.30); GLOMERULAR FILTRATION RATE > 60.0 (>56); GLUCOSE, FASTING 70 MG/DL (70-100); POTASSIUM SERUM 3.6 MEQ/L (3.5-5.1); SODIUM LEVEL 142 MEQ/L (136-145)
[2018-10-17] MEDS: TIOTROPIUM INHALER/CAPSULE (SPIRIVA) INH SCH (08:00)
[2018-10-17] MEDS: MULTIVITAMINS/MINERALS THERAP 1 TAB PO SCH (09:00)
[2018-10-17] MEDS: METOCLOPRAMIDE INJ 10MG/2ML VIAL (J2765) IV PRN (09:48)
[2018-10-17] MEDS: SODIUM CHLORIDE 0.9% INJ 10 ML SYR IV PRN ×2 (09:49→12:45)
[2018-10-17] MEDS: CARVedilol 6.25 MG TAB PO SCH ×2 (10:42→20:28)
[2018-10-17] MEDS: ROSUVASTATIN 10 MG TAB (CRESTOR) PO SCH (10:42)
[2018-10-17] MEDS: ASPIRIN 81 MG ENTERIC TAB PO SCH ×2 (10:43→20:28)
[2018-10-17] MEDS: MAGNESIUM OXIDE 400 MG TAB (MAG-OX) PO SCH (10:43)
[2018-10-17] MEDS: CEFDINIR 300 MG CAP (OMNICEF) PO SCH ×2 (10:43→20:28)
[2018-10-17] MEDS: AMIODARONE 200 MG TAB (PACERONE) PO SCH (10:43)
[2018-10-17] MEDS: CLOPIDOGREL 75 MG TAB PO SCH (10:44)
[2018-10-17] MEDS: FLUoxetine 20 MG CAP PO SCH (10:44)
[2018-10-17] MEDS: ENOXAPARIN 40 MG/0.4 ML SYRINGE (J1650) SC SCH (10:45)
[2018-10-18] MEDS: ONDANSETRON 4MG/2ML VIAL (J2405) IV SCH ×4 (01:19→18:28)
[2018-10-18] MEDS: SODIUM CHLORIDE 0.9% INJ 10 ML SYR IV PRN (01:20)
[2018-10-18 06:00] VITALS: BP 141/80
[2018-10-18] MEDS: SODIUM CHLORIDE 0.9% INJ 10 ML SYR IV SCH ×2 (06:00→18:27)
[2018-10-18] MEDS: HYDROmorphone 2 MG TAB PO SCH ×3 (06:05→18:28)
[2018-10-18 06:43] LABS: MEAN CORPUSCULAR HEMOGLOBIN 26.5 pg (27.0-33.0); MEAN CORPUSCULAR HGB CONC 30.3 g/dl (32.0-36.5); MEAN CORPUSCULAR VOLUME 87.5 fl (80.0-96.0); PLATELET COUNT, AUTOMATED 266 10^3/uL (150-450); RED BLOOD COUNT 3.77 10^6/uL (4.30-6.10)
[2018-10-18 07:10] LABS: BLOOD UREA NITROGEN 9 MG/DL (7-18); CARBON DIOXIDE LEVEL 25 MEQ/L (21-32); CHLORIDE LEVEL 108 MEQ/L (98-107); CREATININE FOR GFR 0.92 MG/DL (0.70-1.30); GLOMERULAR FILTRATION RATE > 60.0 (>56); GLUCOSE, FASTING 70 MG/DL (70-100); POTASSIUM SERUM 3.9 MEQ/L (3.5-5.1); SODIUM LEVEL 141 MEQ/L (136-145)
[2018-10-18] MEDS: SUCRALFATE 1 GM TAB PO SCH ×4 (07:30→22:16)
[2018-10-18] MEDS: HumaLOG INSULIN (NovoLOG) PER UNIT SC SCH ×4 (07:30→21:00)
[2018-10-18] MEDS: TIOTROPIUM INHALER/CAPSULE (SPIRIVA) INH SCH (08:00)
[2018-10-18] MEDS: MAGNESIUM OXIDE 400 MG TAB (MAG-OX) PO SCH (09:00)
[2018-10-18] MEDS: AMIODARONE 200 MG TAB (PACERONE) PO SCH (09:00)
[2018-10-18] MEDS: ASPIRIN 81 MG ENTERIC TAB PO SCH ×2 (09:00→22:16)
[2018-10-18] MEDS: FLUoxetine 20 MG CAP PO SCH (09:00)
[2018-10-18] MEDS: CARVedilol 6.25 MG TAB PO SCH ×2 (09:00→22:16)
[2018-10-18] MEDS: ROSUVASTATIN 10 MG TAB (CRESTOR) PO SCH (09:00)
[2018-10-18] MEDS: MULTIVITAMINS/MINERALS THERAP 1 TAB PO SCH (09:00)
[2018-10-18] MEDS: CEFDINIR 300 MG CAP (OMNICEF) PO SCH ×2 (09:00→22:15)
[2018-10-18] MEDS: CLOPIDOGREL 75 MG TAB PO SCH (09:00)
[2018-10-18] MEDS: ENOXAPARIN 40 MG/0.4 ML SYRINGE (J1650) SC SCH (09:00)
[2018-10-18 09:05] VITALS: BP 138/98
[2018-10-19] MEDS: HYDROmorphone 2 MG TAB PO SCH ×3 (01:10→12:24)
[2018-10-19] MEDS: ONDANSETRON 4MG/2ML VIAL (J2405) IV SCH ×3 (01:10→12:25)
[2018-10-19 06:00] VITALS: BP 139/87
[2018-10-19] MEDS: SODIUM CHLORIDE 0.9% INJ 10 ML SYR IV SCH (06:00)
[2018-10-19 06:50] LABS: HEMATOCRIT 32.6 % (42.0-52.0); HEMOGLOBIN 10.1 g/dl (13.5-17.5); MEAN CORPUSCULAR HEMOGLOBIN 26.7 pg (27.0-33.0); MEAN CORPUSCULAR VOLUME 86.2 fl (80.0-96.0); PLATELET COUNT, AUTOMATED 279 10^3/uL (150-450); RED BLOOD COUNT 3.78 10^6/uL (4.30-6.10); WHITE BLOOD COUNT 8.6 10^3/uL (4.0-10.0)
[2018-10-19 07:16] LABS: BLOOD UREA NITROGEN 8 MG/DL (7-18); CALCIUM LEVEL 8.1 MG/DL (8.5-10.1); CARBON DIOXIDE LEVEL 26 MEQ/L (21-32); CHLORIDE LEVEL 108 MEQ/L (98-107); CREATININE FOR GFR 0.86 MG/DL (0.70-1.30); GLOMERULAR FILTRATION RATE > 60.0 (>56); GLUCOSE, FASTING 74 MG/DL (70-100); POTASSIUM SERUM 3.6 MEQ/L (3.5-5.1); SODIUM LEVEL 142 MEQ/L (136-145)
[2018-10-19] MEDS: HumaLOG INSULIN (NovoLOG) PER UNIT SC SCH ×2 (07:22→12:00)
[2018-10-19] MEDS: TIOTROPIUM INHALER/CAPSULE (SPIRIVA) INH SCH (08:00)
[2018-10-19] MEDS: SUCRALFATE 1 GM TAB PO SCH ×2 (08:04→12:24)
[2018-10-19] MEDS: CLOPIDOGREL 75 MG TAB PO SCH (08:04)
[2018-10-19] MEDS: ASPIRIN 81 MG ENTERIC TAB PO SCH (08:04)
[2018-10-19] MEDS: ROSUVASTATIN 10 MG TAB (CRESTOR) PO SCH (08:04)
[2018-10-19] MEDS: CEFDINIR 300 MG CAP (OMNICEF) PO SCH (08:04)
[2018-10-19] MEDS: AMIODARONE 200 MG TAB (PACERONE) PO SCH (08:04)
[2018-10-19] MEDS: MULTIVITAMINS/MINERALS THERAP 1 TAB PO SCH (08:04)
[2018-10-19] MEDS: MAGNESIUM OXIDE 400 MG TAB (MAG-OX) PO SCH (08:04)
[2018-10-19 08:05] VITALS: BP 137/78
[2018-10-19] MEDS: FLUoxetine 20 MG CAP PO SCH (08:05)
[2018-10-19] MEDS: ENOXAPARIN 40 MG/0.4 ML SYRINGE (J1650) SC SCH (08:05)
[2018-10-19] MEDS: CARVedilol 6.25 MG TAB PO SCH (08:05)
[2018-10-19] MEDS ORDERED: DILA2TAB6 PO (10:35)
--- NOTE | 2018-10-19 15:55 | DSES ---
DATE OF ADMISSION: 10/05/2018 DATE OF DISCHARGE: 10/19/2018 ADDENDUM: Changes and updates to his history include: Patient's girlfriend expressed concerns about his diet. He has a notation of gaining weight during his admission and therefore the recommendation was for daily weight and rechecking albumin in 7 to 10 days. Since that time, the patient has been adamant that he will not be transferred back to [facility] where he has been for rehabilitation. Meeting was held with physical therapy (PT) and the patient's girlfriend, who, at this point, agrees to bring the patient home and assist with care. She has worked with physical therapy and the patient to be prepared for the level of care that he will need at home. DISCHARGE DIAGNOSES: Remain the same. DISCHARGE MEDICATIONS: - Dilaudid 6 mg by mouth every 6 hours with a maximum daily dose of 24 mg, he was sent in a 5-day supply - acetaminophen 650 mg by mouth per rectum every 4 hours as needed for pain or fever - Ventolin HFA two puffs inhaled every 4 hours as needed for shortness of breath - amiodarone 400 mg by mouth daily - aspirin 81 mg by mouth twice a day - bisacodyl 10 mg per rectum daily as needed for constipation - Coreg 6.25 mg by mouth twice a day - Plavix 75 mg daily - Dexilant 60 mg by mouth at night - Ensure 240 mL by mouth twice a day - fluoxetine 40 mg by mouth daily - hydroxyzine 10 mg by mouth three times a day as needed for anxiety - magnesium oxide 400 mg by mouth daily - milk of magnesia 30 mL by mouth daily as needed for constipation - multivitamin one tablet daily - nitroglycerin 0.4 mg sublingually every 5 minutes as needed for chest pain - Zofran 4 mg by mouth every six hours as needed for nausea - prochlorpemazine 25 mg per rectum every 12 hours as needed for nausea - rosuvastatin 20 mg daily - enema daily as needed for constipation - Carafate 1 gram by mouth before food and nightly - Spiriva one inhalation by mouth daily DISCHARGE PLAN: Followup with pain clinic. Followup with Dr. Hoang in 5 days. He should have a CMP and albumin at that time.
--- NOTE | 2018-10-22 09:14 | REP ---
MIDLINE INSERTION WITH ULTRASOUND GUIDANCE: REASON FOR EXAM: Poor IV access, please place midline. PROCEDURE: Midline catheter insertion under ultrasound guidance. This procedure was performed under the personal supervision of Dr. Hamilton. The risks and benefits of the procedure were explained to the patient and informed consent was obtained directly prior to the procedure. The right basilic vein was localized using ultrasound guidance. The skin was prepped and draped in a sterile fashion. 1% lidocaine was used as a local anesthetic. Using ultrasound guidance the brachial vein was cannulated and a 0.018 guidewire was inserted. The needle was removed and a 10 5.5 [place] dilator and a Peel-Away sheath was inserted over the guidewire. A 5.5 [place] dual lumen catheter was cut to the length of 15 cm. The dilator was removed and the catheter was inserted over the guidewire. The Peel-Away sheath was removed and the catheter was flushed with heparinized saline as per hospital protocol. The catheter was affixed to the skin and a sterile dressing was applied. The patient tolerated the procedure well and there were no immediate complications. Reviewed by STUART Dwyer 10/22/2018 09:31 A Edited and Electronically Signed by Jude Hamilton MD 10/23/2018 09:02 P
== END 2018-10-19 15:05 | disposition home health service (06) | DRG 438 ==
LOC: M ED 11:06 → M ED INP 15:23 → M MSPAV 19:38 → OBSVTOIN 10-05 10:21
PROVIDERS: ADMIT Internal Medicine; ATTEND Family Medicine
PROC: 0F9430Z Drainage of Gallbladder with Drainage Device, Percutaneous Approach (ICD-10-PCS; principal; 2018-10-12)
DX: K85.91 Acute pancreatitis with uninfected necrosis, unspecified (principal); I50.43 Acute on chronic combined systolic (congestive) and diastolic (congestive) heart failure; K86.3 Pseudocyst of pancreas; I42.0 Dilated cardiomyopathy; E87.0 Hyperosmolality and hypernatremia; K81.0 Acute cholecystitis; J44.9 Chronic obstructive pulmonary disease, unspecified; E10.649 Type 1 diabetes mellitus with hypoglycemia without coma; I25.2 Old myocardial infarction; I25.10 Atherosclerotic heart disease of native coronary artery without angina pectoris; Z95.1 Presence of aortocoronary bypass graft; E78.5 Hyperlipidemia, unspecified; N40.0 Benign prostatic hyperplasia without lower urinary tract symptoms; F17.210 Nicotine dependence, cigarettes, uncomplicated; Z79.899 Other long term (current) drug therapy; F32.9 Major depressive disorder, single episode, unspecified; Z86.73 Personal history of transient ischemic attack (TIA), and cerebral infarction without residual deficits

== ENCOUNTER → 2018-10-04 | Outpatient (REF) ==
[2018-10-04 08:19] LABS: HEMATOCRIT 35.4 % (42.0-52.0); HEMOGLOBIN 10.9 g/dl (13.5-17.5); MEAN CORPUSCULAR HGB CONC 30.8 g/dl (32.0-36.5); MEAN CORPUSCULAR VOLUME 87.8 fl (80.0-96.0); PLATELET COUNT, AUTOMATED 270 10^3/uL (150-450); RED BLOOD COUNT 4.03 10^6/uL (4.30-6.10); WHITE BLOOD COUNT 9.6 10^3/uL (4.0-10.0)
[2018-10-04 08:48] LABS: ALBUMIN 2.5 GM/DL (3.2-5.2); BLOOD UREA NITROGEN 12 MG/DL (7-18); CALCIUM LEVEL 8.7 MG/DL (8.5-10.1); CARBON DIOXIDE LEVEL 21 MEQ/L (21-32); CHLORIDE LEVEL 106 MEQ/L (98-107); CREATININE FOR GFR 0.79 MG/DL (0.70-1.30); GLOMERULAR FILTRATION RATE > 60.0 (>56); GLUCOSE, FASTING 98 MG/DL (70-100); PHOSPHORUS LEVEL 2.7 MG/DL (2.5-4.9); POTASSIUM SERUM 3.7 MEQ/L (3.5-5.1); SODIUM LEVEL 139 MEQ/L (136-145)
== END ==
LOC: SKLAB5 08:27
PROVIDERS: ATTEND Family Medicine
DX: I50.9 Heart failure, unspecified (principal); N17.9 Acute kidney failure, unspecified

== ENCOUNTER 2018-10-21 09:48 | Inpatient (IN) | payer MEDICARE, MEDICAID ==
[~2018-10-21] VITALS: Ht 175.3 cm; Wt 64.2 kg
[2018-10-21] MEDS: MULTIVITAMINS/MINERALS THERAP 1 TAB PO SCH (09:00)
[~2018-10-21 09:48] MED LIST changes: -/ESOM40CA OR; -/GLIM4TA OR; +ACET1TAB55 PO; +AMAR1TAB6 OR; -AMIO400T PO; +AMIO400T7 PO; -ASPI1TAB PO; -ASPI81CH PO; +ASPI81CH49 PO; +ASPI81TA26 PO; +CORE6.25 PO; +DILA2TAB6 PO; +HYDR-3715 PO; +LISI-1046 PO; -LISI2.5T5 PO; +MS C15TA8 PO; +NEXI1CAP3 OR; +NITR4TASL SL; -NORCOTAB PO; +SPIR1CAP INH; +SUCR1TA PO; -TIZA-208 PO; +TIZA4TAB4 PO
[2018-10-21] MEDS ORDERED: NS 1,000 ML IV ONE (10:30)
[2018-10-21] MEDS ORDERED: NS 500 ML IV ONE (11:00)
[2018-10-21 11:03] LABS: BASO # 0.1 10^3/uL (0.0-0.2); BASO % 0.8 % (0.0-1.0); EOS # 0.1 10^3/uL (0.0-0.50); EOS % 1.7 % (0.0-3.0); HEMATOCRIT 34.3 % (42.0-52.0); HEMOGLOBIN 10.7 g/dl (13.5-17.5); LYMPH # 1.7 10^3/uL (1.5-4.5); LYMPH % 22.4 % (24.0-44.0); MEAN CORPUSCULAR HEMOGLOBIN 27.2 pg (27.0-33.0); MEAN CORPUSCULAR HGB CONC 31.2 g/dl (32.0-36.5); MEAN CORPUSCULAR VOLUME 87.1 fl (80.0-96.0); MONO # 0.6 10^3/uL (0.0-0.8); MONO % 8.5 % (0.0-5.0); NEUTROPHILS % 66.3 % (36.0-66.0); PLATELET COUNT, AUTOMATED 259 10^3/uL (150-450); RED BLOOD COUNT 3.94 10^6/uL (4.30-6.10); WHITE BLOOD COUNT 7.5 10^3/uL (4.0-10.0)
[2018-10-21] MEDS ORDERED: METOCLOPRAMIDE INJ 10MG/2ML VIAL (J2765) IV ONE (11:15)
[2018-10-21 11:28] LABS: ALBUMIN 2.4 GM/DL (3.2-5.2); ALT/SGPT 8 U/L (12-78); BILIRUBIN,DIRECT 0.1 MG/DL (0.0-0.2); BILIRUBIN,TOTAL 0.5 MG/DL (0.2-1.0); BLOOD UREA NITROGEN 7 MG/DL (7-18); CALCIUM LEVEL 8.4 MG/DL (8.5-10.1); CARBON DIOXIDE LEVEL 27 MEQ/L (21-32); CHLORIDE LEVEL 107 MEQ/L (98-107); CREATININE FOR GFR 0.87 MG/DL (0.70-1.30); GLOMERULAR FILTRATION RATE > 60.0 (>56); GLUCOSE, FASTING 74 MG/DL (70-100); POTASSIUM SERUM 3.9 MEQ/L (3.5-5.1); SODIUM LEVEL 141 MEQ/L (136-145); TOTAL PROTEIN 6.1 GM/DL (6.4-8.2)
[2018-10-21] MEDS: SUCRALFATE 1 GM TAB PO SCH ×3 (12:00→21:37)
[2018-10-21] MEDS ORDERED: DEXTROSE 50% 50 ML SYRINGE IV PRN (12:30)
[2018-10-21] MEDS ORDERED: BISACODYL 10 MG SUPP PR PRN (12:30)
[2018-10-21] MEDS ORDERED: GLUCAGON FOR INJ 1 MG VIAL (J1610) SC PRN (12:30)
[2018-10-21] MEDS ORDERED: GLUCOSE 4 GM CHEW TABLET PO PRN (12:30)
[2018-10-21] MEDS ORDERED: MOM 30ML SUSPENSION UDC PO PRN (12:30)
[2018-10-21] MEDS ORDERED: hydrOXYzine 10 MG TAB PO PRN (12:30)
[2018-10-21] MEDS: HYDROmorphone 2 MG TAB PO SCH ×2 (12:56→17:44)
[2018-10-21] MEDS: CLOPIDOGREL 75 MG TAB PO SCH (12:56)
[2018-10-21] MEDS: ROSUVASTATIN 10 MG TAB (CRESTOR) PO SCH (12:56)
[2018-10-21] MEDS: ASPIRIN 81 MG ENTERIC TAB PO SCH ×2 (12:56→21:37)
[2018-10-21] MEDS: AMIODARONE 200 MG TAB (PACERONE) PO SCH (12:57)
[2018-10-21] MEDS: CARVedilol 6.25 MG TAB PO SCH ×2 (12:57→21:37)
[2018-10-21] MEDS: MAGNESIUM OXIDE 400 MG TAB (MAG-OX) PO SCH (12:57)
[2018-10-21] MEDS: KCL 20MEQ in NS 1000ML 1,000 ML IV SCH ×2 (12:58→19:55)
[2018-10-21] MEDS: FLUoxetine 20 MG CAP PO SCH (12:58)
--- NOTE | 2018-10-21 13:51 | REP ---
CT ABDOMEN AND PELVIS WITHOUT CONTRAST: HISTORY: Pancreatitis. COMPARISON: 09/13/2018 and 10/04/2018. A catheter is present in the gallbladder. The liver, spleen, adrenal glands and kidneys are normal in appearance. Increased density is present in the pancreatic region consistent with edema and likely small residual fluid collections. There is no definite new collection. A small amount of free fluid is present. There is no mass or adenopathy. Increased density is present in the lower lobes consistent with bibasilar atelectasis or infiltrates. Mild size pleural effusions are present, larger on the left than on the right. The prostate gland and urinary bladder are normal in appearance. There is thickening of the wall of a segment of sigmoid colon with surrounding edema. Degenerative change is present in the spine. IMPRESSION: 1. A catheter is present in the gallbladder. 2. There is increased density in the pancreatic region likely representing edema and residual fluid collections. There is no definite new fluid collection. 3. There is thickening of a wall of a small segment of sigmoid colon with surrounding edema that may represent inflammatory bowel disease. 4. There is a small amount of free fluid in the abdomen. Electronically Signed by David Joel MD 10/21/2018 02:49 P
[2018-10-21 14:15] VITALS: BP 136/80
--- NOTE | 2018-10-21 14:30 | HPE ---
DATE OF ADMISSION: 10/21/2018 CHIEF COMPLAINT: Abdominal pain. Inability to tolerate oral liquids. HISTORY: Dae Shipman is a 48-year-old. He has been in the hospital almost every day for the last 3 months. He was just discharged from the hospital last week. Stable after being admitted from 10/05/2018 to 10/19/2018 with complications from a recent severe acute pancreatitis. Was discharged home in stable condition. His medications were sent per review of his discharge orders. He claims his medicines were not sent to the pharmacy. He took no steps to call the on-call provider to have medications attended to. (I was application software developer yesterday and received no calls from this patient.) Instead, he waited until today. He came to the emergency room, and now he is dehydrated by examination, having intractable abdominal pain, inability to retain oral fluids. He was advised last admission that he go to rehabilitation. His girlfriend wanted to bring him home. At this point, he has realized "That was a mistake, and I should go to rehab." His past history, social history, family history is unchanged from previous document. REVIEW OF SYSTEMS: No hematemesis, rectal bleeding, fever, chills. He says he cannot even drink liquids. MEDICATIONS: He was discharged on: - Dilaudid 6 mg every 6 hours, 5-day supply sent - Tylenol as needed - albuterol two puffs every 4 hours as needed - amiodarone 400 mg daily - aspirin 81 mg daily - bisacodyl 10 mg per rectum for constipation - Coreg 6.25 mg twice a day - Plavix 75 mg daily - Dexilant 60 mg at bedtime - Ensure 240 mL twice a day - fluoxetine 40 mg daily - hydroxyzine 10 mg three times a day as needed - magnesium oxide 400 mg daily - milk of magnesia 30 mL as needed - multivitamin as needed - Zofran 4 mg every 6 hours as needed for nausea - prochlorpemazine 25 mg per rectum every 12 hours as needed - rosuvastatin 20 mg daily - Carafate 1 gram before meals and at bedtime - Spiriva one inhalation daily ALLERGIES: Are HYDRALAZINE. PHYSICAL EXAMINATION: Vital signs per flow sheet. General appearance: He looks chronically ill, lying in bed, holding his abdomen. He was not able to take liquids for me in the room. HEENT: Shows he is gaunt. Pupils equal, round, and reactive to light. Tympanic membranes normal. Pharynx benign. Neck: No masses. Lungs: Clear. Heart: Regular rate and rhythm without murmur. Abdomen: Soft, diffusely mildly tender. Mild guarding. No rebound. Bowel sounds present. Extremities: No clubbing, cyanosis, or edema. LABORATORY WORK: Complete blood count (CBC) is unchanged from discharge. Potassium 3.9, BUN 7, creatinine 0.87, glucose 74, amylase and lipase were not ordered. IMAGING STUDIES: Have not been ordered. IMPRESSION: 1. Suspected acute pancreatitis. He has had recurrence of abdominal pain and unable to take oral liquids. I am repeating his CT scan of abdomen and pelvis. Get amylase and lipase. (They were both normal last time suggesting severe chronic pancreatitis with little remaining pancreatic tissue present.) Intravenous (IV) normal saline has been ordered, as the patient is dehydrated by examination. I refilled his Zofran and analgesics. 2. Dilated cardiomyopathy. He has an implantable cardioverter-defibrillator (ICD). Last ejection fraction was 10% to 15%. He is on amiodarone. 3. Diabetes. Continue fingerstick with coverage. Discontinue the metformin. 4. Coronary artery disease. Continue his current antianginals. 5. Depression. Continue his fluoxetine. 6. Hyperlipidemia. Continue his Crestor. 7. Recent Clostridium (C) difficile colitis. No antibiotics unless strong indication. If he does receive antibiotics, he should have probiotics prescribed with this. Dr. Hoang will be assuming his care tomorrow.
[2018-10-21] MEDS: HumaLOG INSULIN (NovoLOG) PER UNIT SC SCH ×2 (17:30→21:00)
[2018-10-21 19:55] LABS: AMYLASE 25 U/L (25-115); LIPASE 156 U/L (73-393)
[2018-10-21 22:00] VITALS: BP 128/74
[2018-10-22] MEDS: HYDROmorphone 2 MG TAB PO SCH ×4 (00:57→18:07)
[2018-10-22 02:00] VITALS: BP 122/70
[2018-10-22 06:00] VITALS: BP 139/83
[2018-10-22] MEDS: KCL 20MEQ in NS 1000ML 1,000 ML IV SCH ×4 (06:03→21:29)
[2018-10-22 06:49] LABS: HEMATOCRIT 32.8 % (42.0-52.0); HEMOGLOBIN 9.9 g/dl (13.5-17.5); MEAN CORPUSCULAR HEMOGLOBIN 26.5 pg (27.0-33.0); MEAN CORPUSCULAR HGB CONC 30.2 g/dl (32.0-36.5); MEAN CORPUSCULAR VOLUME 87.9 fl (80.0-96.0); PLATELET COUNT, AUTOMATED 250 10^3/uL (150-450); RED BLOOD COUNT 3.73 10^6/uL (4.30-6.10); WHITE BLOOD COUNT 9.2 10^3/uL (4.0-10.0)
[2018-10-22 07:07] LABS: BLOOD UREA NITROGEN 7 MG/DL (7-18); CALCIUM LEVEL 7.8 MG/DL (8.5-10.1); CARBON DIOXIDE LEVEL 23 MEQ/L (21-32); CHLORIDE LEVEL 112 MEQ/L (98-107); CREATININE FOR GFR 0.69 MG/DL (0.70-1.30); GLOMERULAR FILTRATION RATE > 60.0 (>56); GLUCOSE, FASTING 82 MG/DL (70-100); MAGNESIUM LEVEL 1.6 MG/DL (1.8-2.4); SODIUM LEVEL 141 MEQ/L (136-145)
[2018-10-22 07:19] LABS: ERYTHROCYTE SEDIMENTATION RATE 33 mm/hr (0-20)
[2018-10-22] MEDS: HumaLOG INSULIN (NovoLOG) PER UNIT SC SCH ×4 (07:30→21:00)
[2018-10-22] MEDS: ROSUVASTATIN 10 MG TAB (CRESTOR) PO SCH (09:25)
[2018-10-22] MEDS: AMIODARONE 200 MG TAB (PACERONE) PO SCH (09:25)
[2018-10-22] MEDS: FLUoxetine 20 MG CAP PO SCH (09:25)
[2018-10-22] MEDS: MULTIVITAMINS/MINERALS THERAP 1 TAB PO SCH (09:25)
[2018-10-22] MEDS: MAGNESIUM OXIDE 400 MG TAB (MAG-OX) PO SCH (09:26)
[2018-10-22] MEDS: SUCRALFATE 1 GM TAB PO SCH ×4 (09:26→21:28)
[2018-10-22] MEDS: CARVedilol 6.25 MG TAB PO SCH ×2 (09:26→21:29)
[2018-10-22] MEDS: ASPIRIN 81 MG ENTERIC TAB PO SCH ×2 (09:26→21:29)
[2018-10-22] MEDS: CLOPIDOGREL 75 MG TAB PO SCH (09:26)
[2018-10-22 10:00] VITALS: BP 142/93
[2018-10-22] MEDS: ONDANSETRON 4MG/2ML VIAL (J2405) IV PRN (10:44)
--- NOTE | 2018-10-22 10:51 | IPNPDOC ---
Subjective Date Seen The patient was seen on 10/22/18. Subjective Chief Complaint/HPI abdominal pain. Events since last encounter Patient states he has had abdominal pain for months and is sick of it. States Dilaudid is ineffective for pain. c/o nausea and inability to eat. c/o weakness, lethargy, fatigue. Constitutional: Denies: Chills, Fever, Night Sweats Pulmonary: Denies: Dyspnea, Cough Cardiovascular: Denies: Chest Pain, Palpitations, Orthopnea, Paroxysmal Noc. Dyspnea, Edema, Lt Headedness, Other Symptoms Gastrointestinal: Reports: Nausea, Abdominal Pain; Denies: Vomiting, Diarrhea, Constipation Genitourinary: Denies: Dysuria, Frequency, Incontinence, Retention Psych: Reports: Other Psych (flat affect restricted. ) Objective Physical Examination General Exam: Positive: Alert, No Acute Distress, Other (cachectic, pale) Chest Exam: Positive: Clear to auscultation Heart Exam: Positive: Rate Normal, Regular Rhythm, Normal S1, Normal S2 Abdomen Exam: Positive: Normal bowel sounds, Soft, Tenderness (thoughout) Extremity Exam: Negative: Clubbing, Edema Skin Exam: Positive: Nl turgor and temperature Psych Exam: Positive: Other (flat affect, restricted) Assessment /Plan Problems (1) Chronic abdominal pain Status: Acute Problem Text: mainly right-midline lower quadrant-constant c nausea/anorexia, favor 2 colitis inflammatory vs ischemic cannot do MRA 2 AICD using HM 6 mg po q6H 10/22/[address] Vasquez for opinion +/- colonoscopy/biopsy 10/21/18: CT AP: 1. A catheter is present in the gallbladder. 2. There is increased density in the pancreatic region likely representing edema and residual fluid collections. There is no definite new fluid collection. 3. There is thickening of a wall of a small segment of sigmoid colon with surrounding edema that may represent inflammatory bowel disease. 4. There is a small amount of free fluid in the abdomen. Electronically Signed by David Joel MD 10/21/2018 02:49 P DD: David Joel MD 10/21/18 1313 DT: KAYKAY 10/21/18 1350 DS: BEA 10/21/18 1449 10/21/18 1449 [~ rep ct labl] (2) Pancreatitis Status: Acute Problem Text: chronic pancreatitis. CT negative for acute pancreatitis, amylase/lipase negative. (3) Systolic and diastolic CHF, acute on chronic Status: Chronic Problem Text: Echo 09/03/18: EF 30% Normal sinus rhythm with dual-chamber pacemaker. Appropriate atrial sensing and tracking with consistent ventricular paced. Paced QRS complexes with left bundle branch block QRS configuration. M-mode and two-dimensional echocardiography was performed with pulsed, continuous wave, color flow and tissue Doppler studies. Moderately dilated left ventricle with borderline hypertrophy. Paradoxical septal wall motion and apical akinesis related to right ventricular paced rhythm. Moderate to moderately severe impairment of global resting systolic function. Mildly dilated left atrium with impairment of LV diastolic function and elevated mean left atrial pressure. Right heart chamber sizes upper limits of normal with right ventricular hypokinesis and Doppler evidence of moderate pulmonary hypertension. Mildly dilated IVC with slightly reduced respiratory collapse suggestive of central venous pressure of approximately 10 - 15 mmHg. Slight aortic valvular sclerosis with adequate cusp separation but premature cusp closure in keeping with reduced forward stroke volume. WILL NEED MONITORING ON i/O DUE TO HX OF CHF (4) CAD (coronary artery disease) Status: Chronic (5) Depression Status: Chronic (6) Hyperlipidemia Status: Chronic (7) DM2 (diabetes mellitus, type 2) Status: Chronic Problem Text: Metformin on hold. hypoglycemic this am. poor po intake. monitor glucose levels. add in D5 to IVF if hypoglycemia returns/persists. Plan/VTE VTE Prophylaxis Ordered?: Yes (Plavix) VS, I&O, 24H, Fishbone Vital Signs/I&O Vital Signs Date Time Temp Pulse Resp B/P (MAP) Pulse Ox O2 Delivery O2 Flow Rate FiO2 10/22/18 10:00 97.3 81 18 142/93 (109) 95 10/21/18 09:57 Room Air I&O- Last 24 Hours up to 6 AM 10/22/18 05:59 Intake Total 2130 ml Output Total 115 ml Balance 2015 ml Laboratory Data 24H LABS Laboratory Tests 2 10/21/18 16:52: Bedside Glucose (Misc Panel) 56L 10/21/18 17:45: Bedside Glucose (Misc Panel) 85 10/21/18 18:58: Bedside Glucose (Misc Panel) 91 10/21/18 21:39: Bedside Glucose (Misc Panel) 76 10/22/18 06:10: Nucleated Red Blood Cells % (auto) 0.0, Erythrocyte Sedimentation Rate 33H, Anion Gap 6L, Glomerular Filtration Rate > 60.0, Blood Urea Nitrogen 7, Creatinine 0.69L, Sodium Level 141, Potassium Level 4.0, Chloride Level 112H, Carbon Dioxide Level 23, Calcium Level 7.8L, Magnesium Level 1.6L CBC/BMP Laboratory Tests 10/22/18 06:10 Red Blood Count 3.73 L, Mean Corpuscular Volume 87.9, Mean Corpuscular Hemoglobin 26.5 L, Mean Corpuscular Hemoglobin Concent 30.2 L, Red Cell Distribution Width 15.9 H, Calcium Level 7.8 L Cynthia Singer Oct 22, 2018 10:51 Hari Hoang M.D. Oct 22, 2018 16:13
[2018-10-22 14:00] VITALS: BP 139/93
[2018-10-22 18:00] VITALS: BP 140/99
--- NOTE | 2018-10-22 19:20 | CR ---
DATE OF CONSULTATION: 10/22/2018 REQUESTING PHYSICIAN: Dr. Hoang. REASON FOR CONSULTATION: Pancreatitis. Abdominal pain. HISTORY OF PRESENT ILLNESS: Mr. Shipman is a 48-year-old gentleman with an extensive past medical history including coronary artery disease status post stenting and bypass surgery, IA in August 2018, CHF, ventricular arrhythmia, CVA, TIA who presented in August 2018 with severe necrotizing pancreatitis. He had a complicated hospital course including renal failure, respiratory failure. Since discharge on that occasion he has been in the hospital multiple times for recurrent episodes of acute pancreatitis. The patient presents with intractable abdominal pain and nausea, vomiting, unable to keep fluids down on 10/20/2018 and was admitted for IV fluids and hydration. PAST MEDICAL HISTORY: As outlined in history of present illness. PAST SURGICAL HISTORY: Bypass surgery, left wrist surgery, ICD placement in 2016. MEDICATIONS AT HOME: Dilaudid, Tylenol, albuterol, Coreg, Plavix, Dexilant, Ensure, fluoxetine, and Zofran. SOCIAL HISTORY: Is negative for significant alcohol intake present or remote. It is positive for tobacco. ALLERGIES: HYDRALAZINE. FAMILY HISTORY: Negative for colorectal carcinoma, inflammatory bowel disease, pancreatic carcinoma or pancreatitis. PHYSICAL EXAMINATION: Temperature 97.9, pulse 90, respiratory rate 19, blood pressure 140/99, pulse ox 94% on room air. GENERAL: He is awake, alert and oriented times three, resting in bed without any significant distress. He is chronically ill appearing. HEENT: Head, eyes, ears, nose and throat are grossly without abnormality. There is no oral thrush. NECK: Supple. No lymphadenopathy, thyromegaly. CHEST: Coarse distant breath sounds. No rhonchi or crackles. Occasional scattered wheezing on expiration. ABDOMEN: Is positive bowel sounds. Soft, tender over his entire upper abdomen and focally tender in the suprapubic area. There is no rebound tenderness. Do not appreciate any fluid. HEART: Is regular rate and rhythm, S1-S2. There is a cholecystostomy tube in right costal margin draining dark bile. EXTREMITIES: Negative for edema. RECTAL: Examination deferred as per patient. LABORATORY FINDINGS: Hemoglobin 9.9, WBC 9.2, RDW 15.9, platelet count is 250. Sed rate is 33, sodium 141, potassium 4.0, chloride 112, BUN 7, creatinine 0.69, albumin 2.4, amylase and lipase are normal 25 and 156 respectively. IMAGING STUDIES: Numerous CT's and ultrasounds over the past 3 months have been reviewed, the most recent CT of 10/21/2018 CT abdomen and pelvis without contrast. Impression: 1. A catheter is present in the gallbladder. 2. There is increased density in the courtney pancreatic region likely representing edema and residual fluid collections. There is no definite new fluid collection. 3. There is thickening of the wall of small segment of sigmoid colon with surrounding edema which may represent inflammatory bowel disease. 4. There is small amount of free fluid in the abdomen. CT abdomen and pelvis with IV contrast dated 10/04/2018 Impression: 1. Findings consistent with pancreatitis as described above including moderate surrounding pain peripancreatic fluid collection suggesting pseudocyst as well as a possible portion of necrotic pancreatic tissue. Small amount of free fluid. No discrete single drainable collection identified. 2. Mild colitis involving the sigmoid colon cannot be excluded. 3. Resolving by basilar atelectasis and small residual pleural effusions. Ultrasound right upper quadrant dated 10/03/2018. Impression: 1. Moderately distended gallbladder with small benign-appearing polyp and larynx sludge. No biliary ductal dilatation is appreciated. Remainder examination is grossly unremarkable. Flexible sigmoidoscopy dated 09/05/[address] Nolasco. Impression: 1. Congestive granular hemorrhagic inflamed nodular and pseudomembrane covered mucosa in the sigmoid colon. 2. Severe pancreatitis which is likely persistent residual acute pancreatitis versus chronic pancreatitis with pseudocyst with necrotic tissue. 3. Possible colitis thought to have been ischemic colitis per Dr. Nolasco reports. No biopsies obtained. 4. Malnutrition. 5. Recent myocardial infarction. RECOMMENDATIONS: 1. Nutrition support depending on progress. If the patient is unable to tolerate by mouth Ensure then would suggest we start him on TPN while here. 2. Pain control. 3. Monitor closely for sepsis and despite his previous bout of a C. difficile colitis the patient may benefit from empiric coverage of broad-spectrum antibiotics. However, I do agree that currently his white count is normal and he is afebrile. Does not appear completely uncomfortable. Therefore it is reasonable to hold off on antibiotics unless anything changes. 4. I suspect the colitis that is seen on CT scans and per Dr. Nolasco's evaluation back in August, it is most likely related to the severity of his pancreatitis. At this time in view of his recent myocardial infarction, I would not repeat endoscopic evaluations unless absolutely necessary. Again coverage with antibiotics may be reasonable, although again I believe this is most likely related to his severity of his pancreatitis. ADD: I have reviewed his scans with Dr Kent. His colitis segment is about 30-40 cm and appears to have worsened from previous study. In addition, there is not a clear correlation with this colitis segment and his severe pancreatitis. I note that he may have initially improved on empiric antibiotic regimen when this was evaluated by Dr Nolasco via flex sig. Unfortunately we do not have a definite diagnosis here, and I think best to repeat his flexible sigmoid exam with biopsies to hopefully delineate. I also note that he had IA in early august. --will ask cardiology to OK procedure. KENDELL
[2018-10-22] MEDS: PANTOPRAZOLE 40MG TAB (PROTONIX) PO SCH (21:28)
[2018-10-23] MEDS: HYDROmorphone 2 MG TAB PO SCH ×4 (00:29→18:00)
[2018-10-23] MEDS: ONDANSETRON 4MG/2ML VIAL (J2405) IV PRN ×5 (00:36→21:45)
[2018-10-23 06:00] VITALS: BP 158/90
[2018-10-23] MEDS: KCL 20MEQ in NS 1000ML 1,000 ML IV SCH (06:26)
[2018-10-23 06:33] LABS: HEMATOCRIT 34.1 % (42.0-52.0); HEMOGLOBIN 10.3 g/dl (13.5-17.5); MEAN CORPUSCULAR HEMOGLOBIN 26.8 pg (27.0-33.0); MEAN CORPUSCULAR HGB CONC 30.2 g/dl (32.0-36.5); MEAN CORPUSCULAR VOLUME 88.6 fl (80.0-96.0); PLATELET COUNT, AUTOMATED 262 10^3/uL (150-450); RED BLOOD COUNT 3.85 10^6/uL (4.30-6.10); WHITE BLOOD COUNT 9.1 10^3/uL (4.0-10.0)
[2018-10-23] MEDS: SUCRALFATE 1 GM TAB PO SCH ×4 (07:30→21:00)
[2018-10-23] MEDS: HumaLOG INSULIN (NovoLOG) PER UNIT SC SCH ×4 (07:30→21:00)
[2018-10-23 07:48] LABS: BLOOD UREA NITROGEN 9 MG/DL (7-18); CALCIUM LEVEL 8.1 MG/DL (8.5-10.1); CARBON DIOXIDE LEVEL 19 MEQ/L (21-32); CHLORIDE LEVEL 115 MEQ/L (98-107); CREATININE FOR GFR 0.76 MG/DL (0.70-1.30); GLOMERULAR FILTRATION RATE > 60.0 (>56); GLUCOSE, FASTING 97 MG/DL (70-100); MAGNESIUM LEVEL 1.8 MG/DL (1.8-2.4); POTASSIUM SERUM 5.2 MEQ/L (3.5-5.1); SODIUM LEVEL 142 MEQ/L (136-145)
[2018-10-23] MEDS: HYDROMORPHONE HCL 0.5 MG/ 0.5 ML SYRINGE (J1170 PER 1) IV PRN ×5 (08:58→21:46)
[2018-10-23] MEDS: FLUoxetine 20 MG CAP PO SCH (09:00)
[2018-10-23] MEDS: MAGNESIUM OXIDE 400 MG TAB (MAG-OX) PO SCH (09:00)
[2018-10-23] MEDS: CLOPIDOGREL 75 MG TAB PO SCH (09:00)
[2018-10-23] MEDS: AMIODARONE 200 MG TAB (PACERONE) PO SCH (09:00)
[2018-10-23] MEDS: PANTOPRAZOLE 40MG TAB (PROTONIX) PO SCH ×2 (09:00→21:00)
[2018-10-23] MEDS: CARVedilol 6.25 MG TAB PO SCH ×2 (09:00→21:00)
[2018-10-23] MEDS: ASPIRIN 81 MG ENTERIC TAB PO SCH ×2 (09:00→21:00)
[2018-10-23] MEDS: MULTIVITAMINS/MINERALS THERAP 1 TAB PO SCH (09:00)
[2018-10-23] MEDS: ROSUVASTATIN 10 MG TAB (CRESTOR) PO SCH (09:00)
[2018-10-23] MEDS: D5W/0.45% SODIUM CHLORIDE 1,000 ML IV SCH (09:09)
[2018-10-23 10:53] LABS: CA19-9 TUMOR MARKER,CARBOHYDRA 23.9 U/ML (<35.0)
[2018-10-23] MEDS ORDERED: LIDOCAINE 1% MDV 20ML VIAL As Ordered ONE (13:11)
[2018-10-23 14:00] VITALS: BP 147/105
--- NOTE | 2018-10-23 17:50 | IPNPDOC ---
Subjective Date Seen The patient was seen on 10/23/18. Subjective Chief Complaint/HPI Patient reports vomiting this morning, unable to keep liquids down. Abdominal pain persists Constitutional: Denies: Chills, Fever Pulmonary: Denies: Dyspnea, Cough Cardiovascular: Denies: Chest Pain, Palpitations, Orthopnea, Edema Gastrointestinal: Reports: Nausea, Vomiting, Abdominal Pain (RLQ) Psych: Reports: Mood Normal Objective Physical Examination General Exam: Positive: Alert, No Acute Distress, Other (cachectic, pale) Chest Exam: Positive: Clear to auscultation Heart Exam: Positive: Rate Normal, Regular Rhythm, Normal S1, Normal S2 Abdomen Exam: Positive: Normal bowel sounds, Soft, Tenderness (throughout ) Extremity Exam: Negative: Clubbing, Edema Skin Exam: Positive: Nl turgor and temperature Psych Exam: Positive: Other (flat affect, restricted) Assessment /Plan Problems (1) Chronic abdominal pain Status: Acute Problem Text: mainly right-midline lower quadrant-constant c nausea/anorexia, favor 2 colitis inflammatory vs ischemic 10/23/18: appreciate GI input-planning sigmoid given worse by CT and main source of pain and PICC placed to provide nutrition and pancreatic rest Patient with nausea and vomiting this morning. He was unable to take pain med po. K+ 5.2. Patient was changed to NPO. IV fluids changed to D5 1/2 NS at 60/hr. Hydromorphone 0.6mg IV q 3 hours prn pain only if unable to take PO med. cannot do MRA 2 AICD using HM 6 mg po q6H 10/22/[address] Vasquez for opinion +/- colonoscopy/biopsy 10/21/18: CT AP: 1. A catheter is present in the gallbladder. 2. There is increased density in the pancreatic region likely representing edema and residual fluid collections. There is no definite new fluid collection. 3. There is thickening of a wall of a small segment of sigmoid colon with surrounding edema that may represent inflammatory bowel disease. 4. There is a small amount of free fluid in the abdomen. Electronically Signed by David Joel MD 10/21/2018 02:49 P DD: David Joel MD 10/21/18 1313 DT: KAYKAY 10/21/18 1577 DS: BEA 10/21/18 3764 10/21/18 1449 [~ rep ct labl] (2) Pancreatitis Permanent Comment: ? etiology-favor hyperTG (08/09/18 TG 506), +/- gliptin use (was on stevo) 10/23/18 CA-19-9 24 10/23/18 24 08/10/18 lipase 820 Last Edited By: Hari Hoang MD on Oct 23, 2018 17:54 Status: Acute Problem Text: as per abdominal pain ? etiology-favor hyperTG (08/09/18 TG 506), +/- gliptin use (was on stevo) 10/23/18 CA-19-9 24 10/23/18 24 08/10/18 lipase 820 (3) Systolic and diastolic CHF, acute on chronic Status: Chronic Problem Text: 10/23/18: IVF changed and rate decreased. Patient appears euvolemic on exam Echo 09/03/18: EF 30% Normal sinus rhythm with dual-chamber pacemaker. Appropriate atrial sensing and tracking with consistent ventricular paced. Paced QRS complexes with left bundle branch block QRS configuration. M-mode and two-dimensional echocardiography was performed with pulsed, cont inuous wave, color flow and tissue Doppler studies. Moderately dilated left ventricle with borderline hypertrophy. Paradoxical septal wall motion and apical akinesis related to right ventricular paced rhythm. Moderate to moderately severe impairment of global resting systolic function. Mildly dilated left atrium with impairment of LV diastolic function and elevated mean left atrial pressure. Right heart chamber sizes upper limits of normal with right ventricular hypokinesis and Doppler evidence of moderate pulmonary hypertension. Mildly dilated IVC with slightly reduced respiratory collapse suggestive of central venous pressure of approximately 10 - 15 mmHg. Slight aortic valvular sclerosis with adequate cusp separation but premature cusp closure in keeping with reduced forward stroke volume. WILL NEED MONITORING ON i/O DUE TO HX OF CHF (4) CAD (coronary artery disease) Status: Chronic Problem Text: No active symptoms (5) Depression Status: Chronic (6) DM2 (diabetes mellitus, type 2) Status: Chronic Problem Text: Metformin on hold. hypoglycemic this am. poor po intake. monitor glucose levels. add in D5 to IVF if hypoglycemia returns/persists. Plan/VTE VTE Prophylaxis Ordered?: Yes (Plavix) VS, I&O, 24H, Fishbone Vital Signs/I&O Vital Signs Date Time Temp Pulse Resp B/P (MAP) Pulse Ox O2 Delivery O2 Flow Rate FiO2 10/23/18 06:00 96.0 90 20 158/90 (112) 95 10/21/18 09:57 Room Air I&O- Last 24 Hours up to 6 AM 10/23/18 06:00 Intake Total 2010 ml Output Total 1120 ml Balance 890 ml Laboratory Data 24H LABS Laboratory Tests 2 10/22/18 11:03: Bedside Glucose (Misc Panel) 87 10/22/18 16:51: Bedside Glucose (Misc Panel) 74 10/22/18 21:30: Bedside Glucose (Misc Panel) 85 10/23/18 06:00: Nucleated Red Blood Cells % (auto) 0.0, Anion Gap 8, Glomerular Filtration Rate > 60.0, Blood Urea Nitrogen 9, Creatinine 0.76, Sodium Level 142, Potassium Level 5.2H, Chloride Level 115H, Carbon Dioxide Level 19L, Calcium Level 8.1L, Magnesium Level 1.8 CBC/BMP Laboratory Tests 10/23/18 06:00 Red Blood Count 3.85 L, Mean Corpuscular Volume 88.6, Mean Corpuscular Hemoglobin 26.8 L, Mean Corpuscular Hemoglobin Concent 30.2 L, Red Cell Distribution Width 16.1 H, Calcium Level 8.1 L SHELLEY VELOZ Oct 23, 2018 08:47 Hari Hoang M.D. Oct 23, 2018 17:50
[2018-10-23] MEDS: SODIUM CHLORIDE 0.9% INJ 10 ML SYR IV SCH (18:00)
[2018-10-23 22:00] VITALS: BP 138/98
[2018-10-24 02:00] VITALS: BP 141/89
[2018-10-24] MEDS: D5W/0.45% SODIUM CHLORIDE 1,000 ML IV SCH ×2 (03:26→18:57)
[2018-10-24] MEDS: HYDROMORPHONE HCL 0.5 MG/ 0.5 ML SYRINGE (J1170 PER 1) IV PRN ×5 (03:26→23:36)
[2018-10-24] MEDS: ONDANSETRON 4MG/2ML VIAL (J2405) IV PRN ×5 (03:26→23:47)
[2018-10-24] MEDS: HYDROmorphone 2 MG TAB PO SCH ×5 (05:26→23:57)
[2018-10-24] MEDS: SODIUM CHLORIDE 0.9% INJ 10 ML SYR IV SCH ×2 (05:27→18:00)
[2018-10-24 05:50] LABS: HEMATOCRIT 33.9 % (42.0-52.0); HEMOGLOBIN 10.3 g/dl (13.5-17.5); MEAN CORPUSCULAR HGB CONC 30.4 g/dl (32.0-36.5); PLATELET COUNT, AUTOMATED 269 10^3/uL (150-450); RED BLOOD COUNT 3.81 10^6/uL (4.30-6.10); WHITE BLOOD COUNT 10.4 10^3/uL (4.0-10.0)
[2018-10-24 06:00] VITALS: BP 143/94
[2018-10-24 06:16] LABS: BLOOD UREA NITROGEN 11 MG/DL (7-18); CALCIUM LEVEL 8.2 MG/DL (8.5-10.1); CARBON DIOXIDE LEVEL 21 MEQ/L (21-32); CHLORIDE LEVEL 111 MEQ/L (98-107); CREATININE FOR GFR 0.86 MG/DL (0.70-1.30); GLOMERULAR FILTRATION RATE > 60.0 (>56); GLUCOSE, FASTING 127 MG/DL (70-100); MAGNESIUM LEVEL 1.6 MG/DL (1.8-2.4); POTASSIUM SERUM 4.6 MEQ/L (3.5-5.1); SODIUM LEVEL 140 MEQ/L (136-145)
[2018-10-24] MEDS: HumaLOG INSULIN (NovoLOG) PER UNIT SC SCH ×4 (07:30→21:00)
[2018-10-24] MEDS: SUCRALFATE 1 GM TAB PO SCH ×4 (07:30→21:00)
[2018-10-24] MEDS: CLOPIDOGREL 75 MG TAB PO SCH (09:00)
[2018-10-24] MEDS: MAGNESIUM OXIDE 400 MG TAB (MAG-OX) PO SCH (09:00)
[2018-10-24] MEDS: ROSUVASTATIN 10 MG TAB (CRESTOR) PO SCH (09:00)
[2018-10-24] MEDS: AMIODARONE 200 MG TAB (PACERONE) PO SCH (09:00)
[2018-10-24] MEDS: ASPIRIN 81 MG ENTERIC TAB PO SCH ×2 (09:00→21:00)
[2018-10-24] MEDS: MULTIVITAMINS/MINERALS THERAP 1 TAB PO SCH (09:00)
[2018-10-24] MEDS: CARVedilol 6.25 MG TAB PO SCH ×2 (09:00→21:00)
[2018-10-24] MEDS: PANTOPRAZOLE 40MG TAB (PROTONIX) PO SCH ×2 (09:00→21:00)
[2018-10-24] MEDS: FLUoxetine 20 MG CAP PO SCH (09:00)
--- NOTE | 2018-10-24 09:58 | REP ---
PICC line insertion under ultrasound guidance. The procedure was performed under the personal supervision of Dr. Kent. The risks and benefits of the procedure were explained to the patient and informed consent was obtained. The right brachial vein was localized using ultrasound guidance. The skin was prepped and draped in the sterile fashion. 1 ml 1% lidocaine was used as a local anesthetic. Using ultrasound guidance the right brachial vein was cannulated and a 0.018 guidewire was inserted and advanced to the SVC using fluoroscopic guidance. The needle was removed and a 5.5 Gib[place]tarian dilator and peel-away sheath was inserted over the guidewire. A 5.5 [place] double lumen catheter was cut to the length of 35 cm. The dilator was removed and the catheter was inserted over the guide wire with the tip ending in the SVC. The peel-away sheath was removed and the catheter was flushed with heparinized saline as per hospital protocol. The catheter was affixed to the skin and a sterile dressing was applied. The patient tolerated the procedure well and there were no immediate complications. 0.1 minutes of fluoro time was utilized for this procedure. Reviewed by STUART Dwyer 10/24/2018 09:06 A Electronically Signed by Everett Kent MD 10/24/2018 09:50 A
[2018-10-24] MEDS ORDERED: PROPOFOL 200 MG/20 ML VIAL As Ordered ONE (14:05)
[2018-10-24] MEDS ORDERED: LIDOCAINE 2% INJ 100 MG/5 ML SDV (FOR ANES.) As Ordered ONE (14:06)
[2018-10-24] MEDS ORDERED: MIDAZOLAM INJ 2 MG/2 ML VIAL (J2250) As Ordered ONE (15:18)
[2018-10-24 17:35] VITALS: BP 137/102
[2018-10-24 19:00] VITALS: BP 132/88
[2018-10-24 22:00] VITALS: BP 140/92
[2018-10-25] VITALS (8 sets, daily range): BP systolic 129–146; BP diastolic 95–105
--- NOTE | 2018-10-25 00:32 | IPNPDOC ---
Subjective Date Seen The patient was seen on 10/24/18. Subjective Chief Complaint/HPI Patient seen today after flexible sigmoid colonoscopy; Op notes not yet available. He was still fairly sleepy and difficult to wake when I saw him, but significant other was present and reported that he was still having a fair amount of abdominal discomfort and nausea. General: Reports: ROS Unobtainable Objective Physical Examination General Exam: Positive: Alert, No Acute Distress, Other (cachectic, pale) Chest Exam: Positive: Clear to auscultation Heart Exam: Positive: Rate Normal, Regular Rhythm, Normal S1, Normal S2 Abdomen Exam: Positive: Normal bowel sounds, Soft, Tenderness (throughout ) Extremity Exam: Negative: Clubbing, Edema Skin Exam: Positive: Nl turgor and temperature Psych Exam: Positive: Other (flat affect, restricted) Assessment /Plan Problems (1) Chronic abdominal pain Status: Acute Problem Text: 10/24 -- now s/p flexible sigmoid colonoscopy, with biopsies; operative note pending; if followup procedure is necessary, may require transfer to another facility mainly right-midline lower quadrant-constant c nausea/anorexia, favor 2 colitis inflammatory vs ischemic 10/23/18: appreciate GI input-planning sigmoid given worse by CT and main source of pain and PICC placed to provide nutrition and pancreatic rest Patient with nausea and vomiting this morning. He was unable to take pain med po. K+ 5.2. Patient was changed to NPO. IV fluids changed to D5 1/2 NS at 60/hr. Hydromorphone 0.6mg IV q 3 hours prn pain only if unable to take PO med. cannot do MRA 2 AICD using HM 6 mg po q6H 10/22/[address] Vasquez for opinion +/- colonoscopy/biopsy 10/21/18: CT AP: 1. A catheter is present in the gallbladder. 2. There is increased density in the pancreatic region likely representing edema and residual fluid collections. There is no definite new fluid collection. 3. There is thickening of a wall of a small segment of sigmoid colon with surrounding edema that may represent inflammatory bowel disease. 4. There is a small amount of free fluid in the abdomen. Electronically Signed by David Joel MD 10/21/2018 02:49 P DD: David Joel MD 10/21/18 1313 DT: KAYKAY 10/21/18 1350 DS: WASJO 10/21/18 1449 10/21/18 1449 [~ rep ct labl] (2) Pancreatitis Permanent Comment: ? etiology-favor hyperTG (08/09/18 TG 506), +/- gliptin use (was on stevo) 10/23/18 CA-19-9 24 10/23/18 24 08/10/18 lipase 820 Last Edited By: Hari Hoang MD on Oct 23, 2018 17:54 Status: Acute Problem Text: as per abdominal pain ? etiology-favor hyperTG (08/09/18 TG 506), +/- gliptin use (was on stevo) 10/23/18 CA-19-9 24 10/23/18 24 08/10/18 lipase 820 (3) Systolic and diastolic CHF, acute on chronic Status: Chronic Problem Text: 10/23/18: IVF changed and rate decreased. Patient appears euvolemic on exam Echo 09/03/18: EF 30% Normal sinus rhythm with dual-chamber pacemaker. Appropriate atrial sensing and tracking with consistent ventricular paced. Paced QRS complexes with left bundle branch block QRS configuration. M-mode and two-dimensional echocardiography was performed with pulsed, continuous wave, color flow and tissue Doppler studies. Moderately dilated left ventricle with borderline hypertrophy. Paradoxical septal wall motion and apical akinesis related to right ventricular paced rhythm. Moderate to moderately severe impairment of global resting systolic function. Mildly dilated left atrium with impairment of LV diastolic function and elevated mean left atrial pressure. Right heart chamber sizes upper limits of normal with right ventricular hypokinesis and Doppler evidence of moderate pulmonary hypertension. Mildly dilated IVC with slightly reduced respiratory collapse suggestive of central venous pressure of approximately 10 - 15 mmHg. Slight aortic valvular sclerosis with adequate cusp separation but premature cusp closure in keeping with reduced forward stroke volume. WILL NEED MONITORING ON i/O DUE TO HX OF CHF (4) CAD (coronary artery disease) Status: Chronic Problem Text: No active symptoms (5) Depression Status: Chronic (6) DM2 (diabetes mellitus, type 2) Status: Chronic Problem Text: Metformin on hold. hypoglycemic this am. poor po intake. monitor glucose levels. add in D5 to IVF if hypoglycemia returns/persists. (7) Malnutrition Status: Chronic Problem Text: 10/24 -- PICC line in place, should initiate TPN tomorrow. Nutritional assessment has been in the chart, but does not make recommendations re: TPN, and a formal consult for TPN recommendations was ordered. Plan/VTE VTE Prophylaxis Ordered?: Yes (Plavix) VS, I&O, 24H, Fishbone Vital Signs/I&O Vital Signs Date Time Temp Pulse Resp B/P (MAP) Pulse Ox O2 Delivery O2 Flow Rate FiO2 10/24/18 23:47 18 10/24/18 22:00 96.9 84 140/92 (108) 94 10/24/18 17:15 2 10/21/18 09:57 Room Air I&O- Last 24 Hours up to 6 AM 10/25/18 06:00 Intake Total 1020 ml Output Total 750 ml Balance 270 ml Laboratory Data 24H LABS Laboratory Tests 2 10/24/18 05:20: Nucleated Red Blood Cells % (auto) 0.0, Anion Gap 8, Glomerular Filtration Rate > 60.0, Blood Urea Nitrogen 11, Creatinine 0.86, Sodium Level 140, Potassium Level 4.6, Chloride Level 111H, Carbon Dioxide Level 21, Calcium Level 8.2L, Magnesium Level 1.6L 10/24/18 12:18: Bedside Glucose (Misc Panel) 137H 10/24/18 17:35: Bedside Glucose (Misc Panel) 91 10/24/18 20:41: Bedside Glucose (Misc Panel) 107H CBC/BMP Laboratory Tests 10/24/18 05:20 Red Blood Count 3.81 L, Mean Corpuscular Volume 89.0, Mean Corpuscular Hemoglobin 27.0, Mean Corpuscular Hemoglobin Concent 30.4 L, Red Cell Distribution Width 16.1 H, Calcium Level 8.2 L FAUZIA CASTRO DO Oct 25, 2018 00:32
[2018-10-25] MEDS: ONDANSETRON 4MG/2ML VIAL (J2405) IV PRN ×5 (04:42→23:23)
[2018-10-25] MEDS: HYDROMORPHONE HCL 0.5 MG/ 0.5 ML SYRINGE (J1170 PER 1) IV PRN ×7 (04:43→21:54)
[2018-10-25] MEDS: HYDROmorphone 2 MG TAB PO SCH ×4 (05:23→23:22)
[2018-10-25] MEDS: SODIUM CHLORIDE 0.9% INJ 10 ML SYR IV SCH ×3 (05:24→18:00)
[2018-10-25 06:27] LABS: HEMATOCRIT 32.8 % (42.0-52.0); HEMOGLOBIN 10.1 g/dl (13.5-17.5); MEAN CORPUSCULAR HEMOGLOBIN 26.7 pg (27.0-33.0); MEAN CORPUSCULAR HGB CONC 30.8 g/dl (32.0-36.5); MEAN CORPUSCULAR VOLUME 86.8 fl (80.0-96.0); PLATELET COUNT, AUTOMATED 271 10^3/uL (150-450); RED BLOOD COUNT 3.78 10^6/uL (4.30-6.10); WHITE BLOOD COUNT 9.5 10^3/uL (4.0-10.0)
[2018-10-25 06:47] LABS: BLOOD UREA NITROGEN 10 MG/DL (7-18); CALCIUM LEVEL 8.2 MG/DL (8.5-10.1); CARBON DIOXIDE LEVEL 22 MEQ/L (21-32); CHLORIDE LEVEL 111 MEQ/L (98-107); GLOMERULAR FILTRATION RATE > 60.0 (>56); GLUCOSE, FASTING 125 MG/DL (70-100); MAGNESIUM LEVEL 1.5 MG/DL (1.8-2.4); POTASSIUM SERUM 4.2 MEQ/L (3.5-5.1); SODIUM LEVEL 140 MEQ/L (136-145)
[2018-10-25] MEDS: SUCRALFATE 1 GM TAB PO SCH ×4 (07:30→21:00)
[2018-10-25] MEDS: HumaLOG INSULIN (NovoLOG) PER UNIT SC SCH ×4 (07:30→23:26)
[2018-10-25 08:06] LABS: IgG SERUM (part of Subclasses) 991 mg/dL (700-1600); IgG Subclass 1 187 mg/dL (248-810); IgG Subclass 2 171 mg/dL (130-555); IgG Subclass 3 16 mg/dL (15-102); IgG Subclass 4 46 mg/dL (2-96)
[2018-10-25] MEDS: ROSUVASTATIN 10 MG TAB (CRESTOR) PO SCH (08:09)
[2018-10-25] MEDS: CARVedilol 6.25 MG TAB PO SCH ×2 (08:09→21:00)
[2018-10-25] MEDS: ASPIRIN 81 MG ENTERIC TAB PO SCH ×2 (08:10→21:00)
[2018-10-25] MEDS: MAGNESIUM OXIDE 400 MG TAB (MAG-OX) PO SCH (08:10)
[2018-10-25] MEDS: PANTOPRAZOLE 40MG TAB (PROTONIX) PO SCH ×2 (08:10→21:00)
[2018-10-25] MEDS: AMIODARONE 200 MG TAB (PACERONE) PO SCH (08:10)
[2018-10-25] MEDS: MULTIVITAMINS/MINERALS THERAP 1 TAB PO SCH (08:10)
[2018-10-25] MEDS: CLOPIDOGREL 75 MG TAB PO SCH (08:10)
[2018-10-25] MEDS: FLUoxetine 20 MG CAP PO SCH (08:10)
[2018-10-25] MEDS: D5W/0.45% SODIUM CHLORIDE 1,000 ML IV SCH ×2 (09:01→19:07)
--- NOTE | 2018-10-25 10:56 | ROOR ---
Patient Name: Dae Shipman Procedure Date: 10/24/2018 2:11 PM Date of : 1970 Age: 48 Gender: Male Note Status: Obstetrical Nurse Override Procedure: Flexible Sigmoidoscopy Indications: Periumbilical abdominal pain, Abnormal CT of the GI tract Providers: Vj VASQUEZ MD Referring MD: 2. Inpatient 2. Inpatient Requesting Provider: Medicines: Monitored Anesthesia Care Complications: No immediate complications. Procedure: Pre-Anesthesia Assessment: - The heart rate, respiratory rate, oxygen saturations, blood pressure, adequacy of pulmonary ventilation, and response to care were monitored throughout the procedure. The Colonoscope was introduced through the anus and advanced to 30 cm from the anal verge. The flexible sigmoidoscopy was accomplished without difficulty. The patient tolerated the procedure well. The quality of the bowel preparation was good. Findings: A severe stenosis measuring of unknown length x 4 mm (inner diameter) was found at 30 cm proximal to the anus and was non-traversed. Biopsies were taken with a cold forceps for histology. 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 Biopsied. - Distal end of this stricture is benign appearing/bland. 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 Recommendation: - Await pathology results. - The stricture is not amenable to dilation, as I cannot get across to the other side. Stenting is not indicated for same reason. Will likely need surgical diversion. Vj Vasquez MD Vj VASQUEZ MD 10/24/2018 4:25:06 PM This report has been signed electronically. Number of Addenda: 0 Note Initiated On: 10/24/2018 2:11 PM Estimated Blood Loss: Estimated blood loss: none.
[2018-10-25] MEDS ORDERED: MAG SULF 1GM/100ML (MAG RUN) 1 GM in APPROPRIATE DILUENT 1 EA IV ONE (11:45)
--- NOTE | 2018-10-25 14:32 | CR ---
DATE OF CONSULTATION: 10/25/2018 REASON FOR CONSULTATION: Sigmoid stricture. HISTORY OF PRESENT ILLNESS: The patient is a 48-year-old male well-known to me from previous hospitalization. He has had multiple hospital visits since around 07/31/2018. He was initially in the hospital with Clostridium (C) difficile, pulmonary edema and pneumonia, cardiomyopathy, myocardial infarction (VT) and pancreatitis. He was evaluated back in the hospital again by myself on 10/05/2018 with recurrent pancreatitis. He also had some distended gallbladder at that time and was treated with a cholecystostomy tube. He was just discharged last week. However, he has developed some increased nausea, vomiting and abdominal pains this time on the left side as opposed to epigastric and right upper quadrant that he had in the past, so he came back into emergency room (ER) a couple of days ago for evaluation on 10/21/2018. This hospital visit he had a repeat CT scan showing some narrowing in the sigmoid. Dr. Vasquez took him yesterday for a colonoscopy and found a small stricture about 30 cm in that he was unable to pass with a scope. It was benign-appearing. However, the biopsies were taken for evaluation. Due to the small caliber of the lumen, inability to pass it, he was not amendable to any type of balloon dilation or stenting. Therefore, recommendation from a gastrointestinal (GI) standpoint is to consider surgical resection versus diversion. This morning, the patient is still complaining of significant pain in the left lower quadrant. He has had difficulty tolerating any type of oral intake. This may or may not be related to the sigmoid stricture. It could also be secondary to his chronic pancreatitis. He also has a recent VT with poor cardiac function and he would be a very poor surgical candidate. I have discussed the possibilities of resection versus diversion with him and with colostomy. He understands and agrees to whatever needs to be done. However, at this point with his cardiac history, he may need a significant cardiac workup prior to considering any type of surgery. He also was denying any problems with bowel movements at this time or abdominal distension. His CT scans are not showing any signs of obstruction at this point, so surgery is not an emergency by any means, however, highly suggestive that we consider it in a week or two at the most. I discussed his case with Dr. Hoang already, and he is going to talk to cardiology, see with their recommendations are as far as stress testing versus catheterization, and I will await his recommendations prior to planning for any type of surgical intervention. PAST MEDICAL HISTORY: 1. Congestive heart failure (CHF). 2. Diabetes. 3. Coronary artery disease. 4. Coronary artery bypass graft (CABG) with 10 stents. 5. History of CVA. 6. Hyperlipidemia. 7. Chronic obstructive pulmonary disease (COPD). 8. BPH. 9. Recent VT. PAST SURGICAL HISTORY: 1. CABG. 2. Defibrillator placement. ALLERGIES: NONE. HOME MEDICATIONS: Please medical record. SOCIAL HISTORY: Smokes two packs a day. Denies drug or alcohol abuse. FAMILY HISTORY: Noncontributory. REVIEW OF SYSTEMS: Pertinent positives and negatives as stated in the history of present illness (HPI). PHYSICAL EXAMINATION: GENERAL: Alert and oriented times three. No acute distress. VITAL SIGNS: Temperature 97.7, pulse 101, respirations 17, blood pressure 140/96, positive 94% on room air. HEENT: Pupils equally round and react to light and accommodation HEART: S1, S2, regular rate and rhythm. LUNGS: Clear to auscultation bilaterally. ABDOMEN: Soft. Tender to palpation in the left lower quadrant. Localized guarding. No rebound or rigidity. No signs of peritonitis. EXTREMITIES: No clubbing, cyanosis or edema. LABORATORY DATA: White count 9.5, hemoglobin 10.1, platelets 271. Last lipase on admission was 156. CA19-9 23.9. Potassium 4.2. Creatinine 0.9. Magnesium 1.5. IMAGING: CT abdomen and pelvis from 10/21/2018 shows increased density in the pancreatic region likely representing edema and residual fluid collections. No definite new fluid collections. There is thickening of wall of a small segment of sigmoid colon with surrounding edema that may represent inflammatory bowel disease. A small amount of free fluid in the abdomen. ASSESSMENT AND PLAN: The patient is a 48-year-old male with a very complicated medical history including recent myocardial infarction, previous coronary artery bypass graft with sternal infections and complicated chronic pancreatitis currently presenting with left-sided lower abdominal pain and has a positive likely ischemic stricture on the sigmoidoscopy. Recommendation is resection versus colostomy depending on how long of a surgical procedure he can tolerate. There is no emergency to this. We will plan for procedure next week, but will await medical and cardiac clearance prior to considering anything emergent. Again, I have discussed this with Dr. Hoang and will await his recommendations prior to planning any further surgical intervention. Thank you for the consult and I will follow the patient closely with you.
--- NOTE | 2018-10-25 15:43 | IPNPDOC ---
Subjective Date Seen The patient was seen on 10/25/18. Subjective Chief Complaint/HPI Patient sleeping comfortably went I entered the room. Per nursing patient has refused all PO meds d/t nausea. Significant other at bedside Constitutional: Denies: Fever Pulmonary: Denies: Dyspnea, Cough Cardiovascular: Denies: Chest Pain, Orthopnea, Edema Gastrointestinal: Reports: Nausea, Abdominal Pain; Denies: Diarrhea, Constipation Objective Physical Examination General Exam: Positive: No Acute Distress, Other (cachectic, pale) Chest Exam: Positive: Clear to auscultation Heart Exam: Positive: Rate Normal, Regular Rhythm, Normal S1, Normal S2 Abdomen Exam: Positive: Normal bowel sounds, Soft, Tenderness (throughout ) Extremity Exam: Negative: Clubbing, Edema Skin Exam: Positive: Nl turgor and temperature Psych Exam: Positive: Other (flat affect, restricted) Assessment /Plan Problems (1) Chronic abdominal pain Status: Acute Problem Text: mainly right-midline lower quadrant-constant c nausea/anorexia, favor 2 stricture 2 colitis (inflammatory vs ischemic) vs malignant 10/25/18: Patient continues to use PRN Dilaudid. He has refused all oral medications. I will defer changing his cardiac meds to from po to IV to Cardiology. Case tom Garcia-patient cleared for sigmoid colectomy-plan for Mon vs 10/29 vs 10/31 P OR schedule (defer cholecystectomy for future date given high surgical risk at this time) Sigmoidoscopy Findings: A severe stenosis measuring of unknown length x 4 mm (inner diameter) was found at 30 cm proximal to the anus and was non-traversed. 10/23/18: appreciate GI input-planning sigmoid given worse by CT and main source of pain and PICC placed to provide nutrition and pancreatic rest Patient with nausea and vomiting this morning. He was unable to take pain med po. K+ 5.2. Patient was changed to NPO. IV fluids changed to D5 1/2 NS at 60/hr. Hydromorphone 0.6mg IV q 3 hours prn pain only if unable to take PO med. 10/22/18 case tom Vasquez for opinion +/- colonoscopy/biopsy 10/21/18: CT AP: 1. A catheter is present in the gallbladder. 2. There is increased density in the pancreatic region likely representing edema and residual fluid collections. There is no definite new fluid collection. 3. There is thickening of a wall of a small segment of sigmoid colon with surrounding edema that may represent inflammatory bowel disease. 4. There is a small amount of free fluid in the abdomen. Electronically Signed by David Joel MD 10/21/2018 02:49 P DD: David Joel MD 10/21/18 1313 DT: LSJ 10/21/18 1350 DS: WASJO 10/21/18 1449 10/21/18 1449 [~ rep ct labl] (2) Pancreatitis Permanent Comment: ? etiology-favor hyperTG (08/09/18 TG 506), +/- gliptin use (was on stevo) 10/23/18 CA-19-9 24 10/23/18 24 08/10/18 lipase 820 Last Edited By: Hari Hoang MD on Oct 23, 2018 17:54 Status: Acute Problem Text: as per abdominal pain ? etiology-favor hyperTG (08/09/18 TG 506), +/- gliptin use (was on stevo) 10/23/18 CA-19-9 24 10/23/18 24 08/10/18 lipase 820 (3) Systolic and diastolic CHF, acute on chronic Status: Chronic Problem Text: 10/25/18: Patient appears well compensated on exam 10/23/18: IVF changed and rate decreased. Patient appears euvolemic on exam Echo 09/03/18: EF 30% Normal sinus rhythm with dual-chamber pacemaker. Appropriate atrial sensing and tracking with consistent ventricular paced. Paced QRS complexes with left bundle branch block QRS configuration. M-mode and two-dimensional echocardiography was performed with pulsed, continuous wave, color flow and tissue Doppler studies. Moderately dilated left ventricle with borderline hypertrophy. Paradoxical septal wall motion and apical akinesis related to right ventricular paced rhythm. Moderate to moderately severe impairment of global resting systolic function. Mildly dilated left atrium with impairment of LV diastolic function and elevated mean left atrial pressure. Right heart chamber sizes upper limits of normal with right ventricular hypokinesis and Doppler evidence of moderate pulmonary hypertension. Mildly dilated IVC with slightly reduced respiratory collapse suggestive of central venous pressure of approximately 10 - 15 mmHg. Slight aortic valvular sclerosis with adequate cusp separation but premature cu sp closure in keeping with reduced forward stroke volume. WILL NEED MONITORING ON i/O DUE TO HX OF CHF (4) CAD (coronary artery disease) Status: Chronic Problem Text: No active symptoms (5) Depression Status: Chronic (6) DM2 (diabetes mellitus, type 2) Status: Chronic Problem Text: 10/25/18: We are starting TPN with finger sticks q 6 hrs and sliding scale coverage per protocol Metformin on hold. hypoglycemic this am. poor po intake. monitor glucose levels. add in D5 to IVF if hypoglycemia returns/persists. (7) Malnutrition Status: Chronic Problem Text: 10/25/18: TPN ordered today. We will monitor BGs per protocol 10/24 -- PICC line in place, should initiate TPN tomorrow. Nutritional assessment has been in the chart, but does not make recommendations re: TPN, and a formal consult for TPN recommendations was ordered. Plan/VTE VTE Prophylaxis Ordered?: Yes (Plavix) VS, I&O, 24H, Fishbone Vital Signs/I&O Vital Signs Date Time Temp Pulse Resp B/P (MAP) Pulse Ox O2 Delivery O2 Flow Rate FiO2 10/25/18 08:18 101 140/96 (111) 10/25/18 08:15 17 10/25/18 06:00 97.7 94 10/24/18 17:15 2 10/21/18 09:57 Room Air I&O- Last 24 Hours up to 6 AM 10/25/18 06:00 Intake Total 1020 ml Output Total 750 ml Balance 270 ml Laboratory Data 24H LABS Laboratory Tests 2 10/24/18 12:18: Bedside Glucose (Misc Panel) 137H 10/24/18 17:35: Bedside Glucose (Misc Panel) 91 10/24/18 20:41: Bedside Glucose (Misc Panel) 107H 10/25/18 06:05: Nucleated Red Blood Cells % (auto) 0.0, Anion Gap 7L, Glomerular Filtration Rate > 60.0, Blood Urea Nitrogen 10, Creatinine 0.90, Sodium Level 140, Potassium Level 4.2, Chloride Level 111H, Carbon Dioxide Level 22, Calcium Level 8.2L, Mag nesium Level 1.5L CBC/BMP Laboratory Tests 10/25/18 06:05 Red Blood Count 3.78 L, Mean Corpuscular Volume 86.8, Mean Corpuscular Hemoglobin 26.7 L, Mean Corpuscular Hemoglobin Concent 30.8 L, Red Cell Distribution Width 16.3 H, Calcium Level 8.2 L SHELLEY VELOZ Oct 25, 2018 11:39 Hari Hoang M.D. Oct 25, 2018 15:43
--- NOTE | 2018-10-25 17:00 | CR ---
DATE OF CONSULTATION: 10/25/2018 CONSULTING PHYSICIAN: Dr. Hari Hoang REASON FOR CONSULTATION: Preoperative cardiovascular clearance. HISTORY OF PRESENT ILLNESS: Mr. Shipman is a 48-year-old male previously known to the cardiology service. He presented to the emergency department (ED) on 10/21/2018 with severe abdominal pain, nausea and inability to take oral medications. He was found after procedure today to have colonic strictures and there is a plan for a laparoscopic colectomy tomorrow done by Dr. Bedoya tomorrow. PAST MEDICAL HISTORY: 1. Coronary artery disease with a history of coronary artery bypass graft in 2000. His last cardiac catheterization was in October 2015. It revealed occluded proximal left anterior descending with patent left internal mammary artery to distal left anterior descending (LAD). There were patent stents in the left circumflex and the right coronary arteries. His last functional evaluation was a nuclear stress test in April [address] Giordano that revealed left ventricular ejection fraction 26% and no evidence of ischemia. His last formal echocardiogram was on 09/03/[address] Garcia and he was found to have ejection fraction of 30% with dilated cardiomyopathy. 2. Status post biventricular implantable cardioverter defibrillator (ICD) implanted in 2015. 3. Type 2 diabetes. 4. Hypertension. 5. Dyslipidemia. 6. Peripheral vascular disease, status post recent intervention. 7. Chronic obstructive pulmonary disease. 8. History of diabetic neuropathy. 9. Remote history of cerebrovascular accident. 10. Gastroesophageal reflux disease (GERD). 11. Depression. 12. Benign prostatic hypertrophy (BPH). 13. Migraines. 14. 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 OUTPATIENT MEDICATIONS: - Dilaudid 6 mg every six hours - Tylenol as needed - albuterol every four hours as needed - amiodarone 400 mg daily - aspirin 81 mg daily - bisacodyl 10 mg per rectum for constipation - Coreg 6.25 mg twice a day - Plavix 75 mg daily - Dexilant 60 mg at bedtime - Ensure 240 mL twice a day - fluoxetine 40 mg daily - hydroxyzine 10 mg three times a day as needed - magnesium oxide 400 mg daily - milk of magnesia 30 mL as needed - multivitamin as needed - Zofran 4 mg every six hours as needed for nausea - prochlorperazine 25 mg per rectum every 12 hours as needed - rosuvastatin 20 mg daily - Carafate 1 gram before meals and at bedtime - Spiriva one inhalation daily ALLERGIES: He is allergic to HYDRALAZINE. SOCIAL HISTORY: The patient is an active smoker. Reportedly, there is no history of drug or alcohol use. FAMILY HISTORY: According to available records from the hospital, he has a strong family history of coronary artery disease and hypertension. REVIEW OF SYSTEMS: A 10-point review of systems was performed and was negative without any pertinent positives. PHYSICAL EXAMINATION: VITAL SIGNS: Temperature 98.6, pulse 96, respiratory rate 18, blood pressure 142/100, pulse oximetry 92% on room air. GENERAL: The patient is an ill-appearing, middle aged man. He is laying down in bed with his eyes closed. He is very difficult to arouse for the examination. He does not look in any acute distress. HEENT: He is normocephalic, atraumatic. Pupils are equally round and reactive to light and accommodation. He has no thyromegaly. Mucous membranes are moist. He has poor dentition. HEART: Regular rate and rhythm with no murmurs, rubs or gallops. He has a normal S1 and a normal S2 without an S3 or S4. His point of maximal impulse (PMI) is not displaced. His pulses are brisk in all four extremities. LUNGS: Clear to auscultation bilaterally with no adventitious breath sounds appreciated. ABDOMEN: Soft and nontender to palpation diffusely. He has no rebound or rigidity. Positive bowel sounds. No organomegaly. EXTREMITIES: He does not have clubbing or cyanosis but he does have somewhat pitting edema in his lower extremities bilaterally. NEUROLOGIC: Cranial nerves II-XII are intact. MUSCULOSKELETAL: Strength is 4/5 in upper and lower extremities bilaterally. PSYCHIATRIC: He has a normal mood and normal affect and he is awake, alert, and oriented times three. LABORATORY DATA: His white blood cell count is 9.5. His hemoglobin is 10.1, hematocrit is 32.8, and his platelet count is 271. CHEMISTRIES: His sodium is 140, potassium is 4.2, chloride is 111, carbon dioxide is 22, anion gap is 7, BUN is 10, creatinine is 0.9, fasting glucose is 125, GFR is greater than 60, and his magnesium is 1.5 and his calcium is 8.2. IMAGING STUDIES: He underwent a CT abdomen and pelvis on 10/21/2018 and was found an increased density in the pancreatic region likely representing edema and residual fluid collection. There is a thickening of a well of a small segment of the sigmoid colon with surrounding edema that may represent inflammatory bowel disease and there is a small amount of free fluid in the abdomen. ASSESSMENT AND PLAN: This is a 48-year-old male who has known history of coronary artery disease with ischemic cardiomyopathy and dilated cardiomyopathy who presented with abdominal pain, found to have a questionable pancreatitis or stricture with plan for laparoscopic colectomy tomorrow. The cardiology service was called for preoperative clearance. Of note, the patient has been unable to take any of his oral medications for the past couple of days secondary to his nausea and vomiting. The patient is being evaluated for the risks of surgery. At this time, this patient is cleared for surgery. 1. Coronary artery disease without angina and history of [id number] infarctions (NSTEMIs). The patient has a history of a coronary artery bypass graft and multiple percutaneous coronary interventions (PCIs). At this time, we recommend transferring the patient to the progressive care unit (PCU) for continuous cardiac monitoring as it will be necessary both preoperatively and postoperatively. We recommend holding the patient's amiodarone, aspirin and Plavix at this time. 2. Acute on chronic heart failure (systolic and diastolic). The patient appears to be euvolemic at this time but we will caution in fluid resuscitation surrounding the surgery. 3. Hyperlipidemia. Continue statin therapy. 4. Systemic hypertension. In lieu of oral medications as this patient is unable to tolerate oral medications at this time, please plan to give the patient IV metoprolol 5 mg every six hours while he is nothing by mouth with the holding parameter of holding for a systolic blood pressure of less than 120. 5. Status post biventricular implantable cardioverter defibrillator (ICD). ICD check will be done if necessary in the PCU once the patient has been transferred. 6. History of ventricular fibrillation. The patient has a defibrillator in place and will not be needing antiarrhythmic drugs at this time preoperatively but will reassess after the patient undergoes his operation. My faculty preceptor for this patient encounter was physically present during the encounter and was fully available. All aspects of the patient interview, examination, medical decision making process, and medical care plan development were reviewed and approved by the faculty preceptor. The faculty preceptor is aware and concurs with the plan as stated in the body of this note and will attest to such by his/her co-signature. KENDELL
[2018-10-25] MEDS ORDERED: AMINO AC/ELECTROLYTE/DEX/CALC 2,000 ML IV SCH (18:00)
[2018-10-25] MEDS ORDERED: FAT EMULSION IV 20% 500 ML IV SCH (18:00)
[2018-10-26] VITALS (9 sets, daily range): BP systolic 126–155; BP diastolic 80–112
[2018-10-26] MEDS: HYDROMORPHONE HCL 0.5 MG/ 0.5 ML SYRINGE (J1170 PER 1) IV PRN ×8 (01:26→23:45)
[2018-10-26] MEDS: HYDROmorphone 2 MG TAB PO SCH ×4 (04:42→23:46)
[2018-10-26] MEDS: SODIUM CHLORIDE 0.9% INJ 10 ML SYR IV SCH ×2 (04:43→17:54)
[2018-10-26 04:49] LABS: HEMATOCRIT 37.9 % (42.0-52.0); HEMOGLOBIN 11.6 g/dl (13.5-17.5); MEAN CORPUSCULAR HEMOGLOBIN 27.5 pg (27.0-33.0); MEAN CORPUSCULAR HGB CONC 30.6 g/dl (32.0-36.5); MEAN CORPUSCULAR VOLUME 89.8 fl (80.0-96.0); PLATELET COUNT, AUTOMATED 286 10^3/uL (150-450); RED BLOOD COUNT 4.22 10^6/uL (4.30-6.10); WHITE BLOOD COUNT 14.4 10^3/uL (4.0-10.0)
--- NOTE | 2018-10-26 05:13 | IPNPDOC ---
Text Note Date of Service The patient was seen on 10/26/18. NOTE S: I was called to the bedside by PCU nursing staff after they contacted the on- call family medicine attending Dr. Alexander. I was called to the bedside because the patient was complaining of chest pain and was having increased tachycardia on telemetry monitoring with an abnormal rhythm. Patient describes chest pain as lower chest pain and upper abdominal pain spanning the epigastric area. Patient said he having this pain for about 15 minutes. Patient has been receiving 0.6 mg of IV Dilaudid every 3 hours. His last dose was about 3 hours ago. Patient became tachypneic and required oxygen therapy. The time I had arrived at the bedside, Dr. Alexander had already place orders for a 12-lead EKG, cardiac marker panel, and chest x-ray. Dr. Alexander had instructed the nursing staff to call myself to evaluate the patient as I was in the building and gave me the ability to write orders for the patient until he arrived. O: Vital: See below General: Alert and oriented male who was sitting up in bed in mild-moderate distress. CV: Tachycardic rate, regular rhythm, no murmurs RESP: Wheezing and rhonchorous breath sounds in the right lower lung patterson. Other lung patterson clear to auscultation. CHEST X-RAY: Interpreted by myself to have an increasing infiltrate in the right lower lobe compared to chest x-ray performed on 10/08/18. There is also increased cephalization of pulmonary vasculature in bilateral lung patterson. There was blunting of the costophrenic angles bilaterally EKG: interpreted by myself to be normal axis, tachycardic rate, regular rhythm that is paced. There are ST segment elevation in V2-V4 that are unchanged from prior EKG on 10/25/18. There are deep S-waves in V2-V4 A/P Patient is a 48-year-old male who was admitted with acute pancreatitis. Patient's chest x-ray appears to show a right lower lobe pneumonia with increased cephalization of pulmonary vasculature secondary to volume overload and pulmonary edema. Patient will receive IV Zosyn and IV vancomycin. Patient has recently received a full course of third generation cephalosporins for a positive Klebsiella pneumoniae drainage from percutaneous cholecystostomy tube. Patient also has a history of positive nasal swab for MRSA. A one time dose of 40 mg of Lasix IV was also given to the patient for increased pulmonary edema. Patient received his scheduled 0.6 mg of IV Dilaudid. Patient began to feel better. At this time I discussed the case with Dr. Alexander who saw the patient and agreed with the plan. Cardiac marker panel was unremarkable. Repeat cardiac marker panel for 4 hours later was ordered. VS,Fishbone, I+O VS, Fishbone, I+O Laboratory Tests 10/25/18 06:05 Red Blood Count 3.78 L, Mean Corpuscular Volume 86.8, Mean Corpuscular Hemoglobin 26.7 L, Mean Corpuscular Hemoglobin Concent 30.8 L, Red Cell Distribution Width 16.3 H, Calcium Level 8.2 L 10/26/18 04:36 Red Blood Count 4.22 L, Mean Corpuscular Volume 89.8, Mean Corpuscular Hemoglobin 27.5, Mean Corpuscular Hemoglobin Concent 30.6 L, Red Cell Distribution Width 16.3 H Vital Signs Date Time Temp Pulse Resp B/P (MAP) Pulse Ox O2 Delivery O2 Flow Rate FiO2 10/26/18 04:43 20 97 2.0 10/26/18 04:21 114 131/100 (110) 10/26/18 04:15 96.8 10/21/18 09:57 Room Air I&O- Last 24 Hours up to 6 AM 10/26/18 06:00 Intake Total 580 ml Output Total 525 ml Balance 55 ml GME ATTESTATION GME ATTESTATION My faculty preceptor for this patient encounter was physically present during the encounter and was fully available. All aspects of the patient interview, examination, medical decision making process, and medical care plan development were reviewed and approved by the faculty preceptor. The faculty preceptor is aware and concurs with the plan as stated in the body of this note and will attest to such by his/her cosignature. ATTENDING NOTE Patient seen and examined. Agree with Dr. Evans's note. Patient has extensive right lower lung field infiltrate and evidence of effusion. Heart size seems to be increased but is an AP projection. I/O have been strongly positive and weight is up. Abnormal breath sounds are found predominantly in the Right base. Treatment to cover Hospital acquired pneumonia as well as likely fluid overload. CAMPBELL EVANS DO Oct 26, 2018 05:13 Zane Alexander MD Oct 26, 2018 07:18
[2018-10-26 05:16] LABS: BLOOD UREA NITROGEN 12 MG/DL (7-18); CALCIUM LEVEL 8.2 MG/DL (8.5-10.1); CARBON DIOXIDE LEVEL 18 MEQ/L (21-32); CHLORIDE LEVEL 109 MEQ/L (98-107); CPK CREATINE PHOSPHOKINASE 28 U/L (39-308); CREATININE FOR GFR 1.05 MG/DL (0.70-1.30); GLOMERULAR FILTRATION RATE > 60.0 (>56); GLUCOSE, FASTING 174 MG/DL (70-100); MAGNESIUM LEVEL 1.6 MG/DL (1.8-2.4); MB/CK RELATIVE INDEX 7.14 (< OR =4); POTASSIUM SERUM 4.1 MEQ/L (3.5-5.1); SODIUM LEVEL 140 MEQ/L (136-145); TROPONIN I 0.03 NG/ML (< 0.10)
[2018-10-26] MEDS: PIPERACILLIN/TAZOBACTAM SOD 3.375 GM in D5W MINI-BAG PLUS 50 ML IV SCH ×4 (05:21→23:45)
[2018-10-26] MEDS ORDERED: FUROSEMIDE 40 MG/4 ML VIAL (J1940) IV ONE (05:30)
[2018-10-26] MEDS ORDERED: MAG SULF 1GM/100ML (MAG RUN) 1 GM in APPROPRIATE DILUENT 1 EA IV ONE (05:30)
[2018-10-26] MEDS ORDERED: VANCOMYCIN 1000 MG/20 ML VIAL (J3370) IP ONE (05:30)
[2018-10-26] MEDS ORDERED: VANCOMYCIN HCL 1,000 MG, VIAL MATE ADAPTER 1 EACH in D5W 250 ML IV ONE (05:45)
--- NOTE | 2018-10-26 06:25 | PHACANCOPD ---
PHARMACY VANCOMYCIN DOSING Pt Demographics Demographics Patient Age:48 , Weight:73.000 , Gender: male Adjusted Body Weight Date: 10/26/18, Adjusted Body Weight: [73] Kg ACTUAL WT Vancomycin Vancomycin indication: PNEUMONIA,MRSA Vancomycin Target Ranges: 15-20 mcg/ml Vancomycin Load Y/N: No Load Dose Date Time Vancomycin Load Dose: Date: Time: Vancomycin Dose Date: 10/26/18. Current Vancomycin Dose: [1 GM IV Q8H] Intermittent Dosing?: No Labs Labs Laboratory Tests 10/26/18 04:36 Red Blood Count 4.22 L, Mean Corpuscular Volume 89.8, Mean Corpuscular Hemoglobin 27.5, Mean Corpuscular Hemoglobin Concent 30.6 L, Red Cell Distribution Width 16.3 H, Calcium Level 8.2 L, Total Creatine Kinase 28 L Creatinine Clearance Date:10/26/18. Creatinine Clearance: [86.9].CALCULATED Pending Labs Vancomycin trough due 10/27@0500 Assessment and Plan Maintaining Current Dose?: Yes Reason for dose change: No Dose Change Pharmacist Note Pharmacist Note Date: 10/26/18. Pharmacist note:48 YOM w/pneumonia/MRSA receiving Pip/Tazo 3.375 gm iv [id number] and Vancomycin per Pharmacy consult. Vancomycin 1 gram IV Ordered for 10/26@0600, then will continue with a Q8hour regimen. First Vancomycin trough is scheduled for 10/27@0500( prior to the 4th dose)-Will continue to follow patient [facility] Oct 26, 2018 06:25
[2018-10-26] MEDS: HumaLOG INSULIN (NovoLOG) PER UNIT SC SCH ×4 (06:33→23:46)
[2018-10-26] MEDS: SUCRALFATE 1 GM TAB PO SCH ×5 (07:30→21:00)
[2018-10-26] MEDS: SODIUM CHLORIDE 0.9% INJ 10 ML SYR IV PRN (07:49)
--- NOTE | 2018-10-26 08:10 | IPNPDOC ---
Subjective Date Seen The patient was seen on 10/26/18. Subjective Chief Complaint/HPI Patient lying in bed as I entered the room. He reports abdominal pain. He continues to have nausea Constitutional: Denies: Chills, Fever Pulmonary: Denies: Dyspnea, Cough, Pleuritic Chest Pain Gastrointestinal: Reports: Nausea, Abdominal Pain; Denies: Vomiting Psych: Reports: Mood Normal Objective Physical Examination General Exam: Positive: Alert, No Acute Distress, Other (cachectic, pale) Chest Exam: Positive: Clear to auscultation; Negative: Rales, Rhonchi Heart Exam: Positive: Rate Normal, Regular Rhythm, Normal S1, Normal S2 Abdomen Exam: Positive: Normal bowel sounds, Soft, Tenderness (throughout ) Extremity Exam: Negative: Clubbing, Edema Skin Exam: Positive: Nl turgor and temperature Psych Exam: Positive: Other (flat affect, restricted) Assessment /Plan Problems (1) Chronic abdominal pain Status: Acute Problem Text: 10/26/18: Pain persists, nausea persists. Patient is receiving Zofran IV. He has declined compazine prn for his nausea. Plan for sigmoid colectomy unchanged- Mon vs 10/29 vs 10/31 P OR schedule. Cardiology provided surgical clearance. Recommendation is to hold Amiodarone, ASA and Plavix for now. I will stop those medications today and we will need to reassess post- operatively. Also, given patient is unable to tolerate PO meds, the recommendation was to start Metoprolol 5 mg q 6 hs IV with holding parameter for systolic BP <120. Medication was changed this morning. PPI changed to Pantoprazole 40mg IV BID mainly right-midline lower quadrant-constant c nausea/anorexia, favor 2 stricture 2 colitis (inflammatory vs ischemic) vs malignant 10/25/18: Patient continues to use PRN Dilaudid. He has refused all oral medicat ions. I will defer changing his cardiac meds to from po to IV to Cardiology. Case dw Dr. Garcia-patient cleared for sigmoid colectomy-plan for Mon vs 10/29 vs 10/31 P OR schedule (defer cholecystectomy for future date given high surgical risk at this time) Sigmoidoscopy Findings: A severe stenosis measuring of unknown length x 4 mm (inner diameter) was found at 30 cm proximal to the anus and was non-traversed. 10/23/18: appreciate GI input-planning sigmoid given worse by CT and main source of pain and PICC placed to provide nutrition and pancreatic rest Patient with nausea and vomiting this morning. He was unable to take pain med po. K+ 5.2. Patient was changed to NPO. IV fluids changed to D5 1/2 NS at 60/hr. Hydromorphone 0.6mg IV q 3 hours prn pain only if unable to take PO med. 10/22/[address] Vasquez for opinion +/- colonoscopy/biopsy 10/21/18: CT AP: 1. A catheter is present in the gallbladder. 2. There is increased density in the pancreatic region likely representing edema and residual fluid collections. There is no definite new fluid collection. 3. There is thickening of a wall of a small segment of sigmoid colon with surrounding edema that may represent inflammatory bowel disease. 4. There is a small amount of free fluid in the abdomen. Electronically Signed by David Joel MD 10/21/2018 02:49 P DD: David Joel MD 10/21/18 1313 DT: KAYKAY 10/21/18 1350 DS: BEA 10/21/18 1449 10/21/18 1449 [~ rep ct labl] (2) Pneumonia Status: Acute Response to Treatment: Stable Problem Text: 10/26/18: Day 1 of Vancomycin and Zosyn. WBC 14.4. A-febrile Chest X-ray: Pulmonary edema pattern bilaterally. Cardiomegaly with pacemaker. Small amounts of bilateral pleural fluid. CHF pattern (3) Systolic and diastolic CHF, acute on chronic Status: Chronic Problem Text: 10/26/18: Patient well compensated this morning. This morning patient had a chest x-ray d/t some chest discomfort. Patient's preliminary chest x-ray appeared to show a right lower lobe pneumonia with increased cephalization of pulmonary vasculature secondary to volume overload and pulmonary edema. Chest xray report deomonstrated Pulmonary edema pattern bilaterally. Cardiomegaly wit h pacemaker. Small amounts of bilateral pleural fluid. CHF pattern: He was given a one time dose of 40 mg of Lasix IV. IVF were discontinued. Patient was placed on abx to cover for pneumonia. We will continue to monitor 10/25/18: Patient appears well compensated on exam 10/23/18: IVF changed and rate decreased. Patient appears euvolemic on exam Echo 09/03/18: EF 30% Normal sinus rhythm with dual-chamber pacemaker. Appropriate atrial sensing and tracking with consistent ventricular paced. Paced QRS complexes with left bundle branch block QRS configuration. M-mode and two-dimensional echocardiography was performed with pulsed, continuous wave, color flow and tissue Doppler studies. Moderately dilated left ventricle with borderline hypertrophy. Paradoxical septal wall motion and apical akinesis related to right ventricular paced rhythm. Moderate to moderately severe impairment of global resting systolic function. Mildly dilated left atrium with impairment of LV diastolic function and elevated mean left atrial pressure. Right heart chamber sizes upper limits of normal with right ventricular hypokinesis and Doppler evidence of moderate pulmonary hypertension. Mildly dilated IVC with slightly reduced respiratory collapse suggestive of central venous pressure of approximately 10 - 15 mmHg. Slight aortic valvular sclerosis with adequate cusp separation but premature cusp closure in keeping with reduced forward stroke volume. WILL NEED MONITORING ON i/O DUE TO HX OF CHF (4) Pancreatitis Permanent Comment: ? etiology-favor hyperTG (08/09/18 TG 506), +/- gliptin use (was on stevo) 10/23/18 CA-19-9 24 10/23/18 24 08/10/18 lipase 820 Last Edited By: Hari Hoang MD on Oct 23, 2018 17:54 Status: Acute Problem Text: as per abdominal pain ? etiology-favor hyperTG (08/09/18 TG 506), +/- gliptin use (was on stevo) 10/23/18 CA-19-9 24 10/23/18 24 08/10/18 lipase 820 (5) CAD (coronary artery disease) Status: Chronic Problem Text: No active symptoms (6) Depression Status: Chronic (7) DM2 (diabetes mellitus, type 2) Status: Chronic Problem Text: 10/25/18: We are starting TPN with finger sticks q 6 hrs and sliding scale coverage per protocol Metformin on hold. hypoglycemic this am. poor po intake. monitor glucose levels. add in D5 to IVF if hypoglycemia returns/persists. (8) Malnutrition Status: Chronic Problem Text: 10/26/18: TPN 10/25/18: TPN ordered today. We will monitor BGs per protocol 10/24 -- PICC line in place, should initiate TPN tomorrow. Nutritional assessment has been in the chart, but does not make recommendations re: TPN, and a formal consult for TPN recommendations was ordered. Plan/VTE VTE Prophylaxis Ordered?: Yes (Plavix) Plan Family Medicine Attending Note: I saw and examined Mr. Shipman, discussed with Shelley Dominguez DNP. Agree with her note as documented. It sounds like the surgical team is cueing him up for a bowel prep on Monday and surgery on Monday. His primary complaint continues to be nausea and epigastric pain. Unfortunately he refuses Phenergan suppositories, which I think may help with his nausea. Additionally I think some of his epigastric pain may come from his pancreatitis, but some probably comes from gastritis likely bile gastritis. He has been allowed a clear liquid diet by the surgical team, but is nervous to do so because of his pancreatitis. He is refusing anything orally including Carafate. I discussed with him specifically that I think the Carafate would help protect his stomach from either the acid or bile which is irritating and causing him significant discomfort. I reinforced with the nurse. I'm still not certain he is going to accept the medication. We will restart his PPI twice daily via IV. (skiver box toe) Addendum: His significant other contacted me this evening and again requested transfer to [place]. She expressed significant concern about him, and felt that the delay in his surgery date was a problem. I explained that I'm not able to transfer him because there is nothing that they can provide for him that we cannot. I encouraged her to put her efforts and to asking him to take the medi cations (which are listed above) that I believe would help him be more comfortable while we prepare him for surgery by boosting his nutritional status, etc. She agreed to work on this plan. VS, I&O, 24H, Fishbone Vital Signs/I&O Vital Signs Date Time Temp Pulse Resp B/P (MAP) Pulse Ox O2 Delivery O2 Flow Rate FiO2 10/26/18 05:08 20 10/26/18 04:55 2.0 10/26/18 04:43 97 10/26/18 04:21 114 131/100 (110) 10/26/18 04:15 96.8 10/21/18 09:57 Room Air I&O- Last 24 Hours up to 6 AM 10/26/18 06:00 Intake Total 1240 ml Output Total 650 ml Balance 590 ml Laboratory Data 24H LABS Laboratory Tests 2 10/25/18 11:59: Bedside Glucose (Misc Panel) 124H 10/25/18 18:15: Bedside Glucose (Misc Panel) 121H 10/25/18 23:25: Bedside Glucose (Misc Panel) 188H 10/26/18 04:13: Bedside Glucose (Misc Panel) 182H 10/26/18 04:36: Nucleated Red Blood Cells % (auto) 0.0, Anion Gap 13, Glomerular Filtration Rate > 60.0, Blood Urea Nitrogen 12, Creatinine 1.05, Sodium Level 140, Potassium Level 4.1, Chloride Level 109H, Carbon Dioxide Level 18L, Calcium Level 8.2L, Total Creatine Kinase 28L, Magnesium Level 1.6L, Creatine Kinase MB 2.0, Creatine Kinase MB Relative Index 7.14H, Troponin I 0.03 CBC/BMP Laboratory Tests 10/26/18 04:36 Red Blood Count 4.22 L, Mean Corpuscular Volume 89.8, Mean Corpuscular Hemoglob in 27.5, Mean Corpuscular Hemoglobin Concent 30.6 L, Red Cell Distribution Width 16.3 H, Calcium Level 8.2 L, Total Creatine Kinase 28 L SHELLEY DOMINGUEZ Oct 26, 2018 08:07 Benton Stratton MD Oct 26, 2018 21:08
[2018-10-26 08:36] LABS: TROPONIN I 0.05 NG/ML (< 0.10)
--- NOTE | 2018-10-26 08:41 | IPNPDOC ---
Text Note Date of Service The patient was seen on 10/26/18. NOTE No acute events overnight. He was moved to the PCU for close cardiac monitoring. His biggest complaint is upper abd pain this am, and nausea. These symptoms are very unlikely to be related to the stricture in the sigmoid colon. He has not had problems with his BMS, and his ab domen is soft. There are no signs of bowel obstruction on his CT either. VSSAF NAD abd - soft, non distended, no rebound or guarding, tender to palpation epigastric today labs - see below A) 48y/o male with complicated medical history, and a benign appearing sigmoid stricture. recent [place] CAD chronic pancreatitis acalculous cholecystitis likely secondary to the pancreatitis with cholecystost cady drain in place. P) clq diet will start laxatives on Monday, and slowly attempt a bowel prep with the plan for diverting colostomy on Mon at 7:30. His upper abd pains, nausea, and emesis, are unrelated to this sigmoid lesion If his leukocytosis continues to increase then we will consider repeat CT prior to surgery, and possibly consider an open surgery if needed. We will monitor closely for changes. Cody Bedoya DO VS,Fishbone, I+O VS, Fishbone, I+O Laboratory Tests 10/26/18 04:36 Red Blood Count 4.22 L, Mean Corpuscular Volume 89.8, Mean Corpuscular Hemoglobin 27.5, Mean Corpuscular Hemoglobin Concent 30.6 L, Red Cell Distribution Width 16.3 H, Calcium Level 8.2 L, Total Creatine Kinase 28 L Vital Signs Date Time Temp Pulse Resp B/P (MAP) Pulse Ox O2 Delivery O2 Flow Rate FiO2 10/26/18 08:00 96.4 93 19 142/98 (113) 99 2.0 10/21/18 09:57 Room Air I&O- Last 24 Hours up to 6 AM 10/26/18 06:00 Intake Total 1240 ml Output Total 650 ml Balance 590 ml LAVINIA BEDOYA DO Oct 26, 2018 08:41
[2018-10-26] MEDS: PANTOPRAZOLE 40MG TAB (PROTONIX) PO SCH (09:00)
[2018-10-26] MEDS: MAGNESIUM OXIDE 400 MG TAB (MAG-OX) PO SCH (09:00)
[2018-10-26] MEDS: MULTIVITAMINS/MINERALS THERAP 1 TAB PO SCH (09:00)
[2018-10-26] MEDS: ROSUVASTATIN 10 MG TAB (CRESTOR) PO SCH (09:00)
[2018-10-26] MEDS: FLUoxetine 20 MG CAP PO SCH (09:00)
--- NOTE | 2018-10-26 09:07 | REP ---
Portable chest x-ray: Single view. History: Change in condition. Comparison chest x-ray: October 08, 2018. Findings: There is a right-sided PICC line with its tip in the expected location of the superior vena cava. A multilead pacemaker is noted in the right heart via the left side as before. EKG electrodes are seen. There is hazy opacity bilaterally consistent with small amounts of pleural fluid with some fissural thickening. The left hemidiaphragm is somewhat obscured. In addition, there is a perihilar pulmonary edema and diffuse interstitial pulmonary edema pattern. Heart is enlarged as before. Impression: Pulmonary edema pattern bilaterally. Cardiomegaly with pacemaker. Small amounts of bilateral pleural fluid. CHF pattern. Electronically Signed by Everett Kent MD 10/26/2018 01:55 P
[2018-10-26] MEDS: MAG SULF 1GM/100ML (MAG RUN) 1 GM in APPROPRIATE DILUENT 1 EA IV SCH ×2 (10:23→13:21)
[2018-10-26] MEDS: METOPROLOL 5 MG/5 ML VIAL IV SCH ×3 (10:23→20:43)
[2018-10-26] MEDS: PANTOPRAZOLE 40MG INJ (PROTONIX) (C9113) IV SCH ×2 (13:22→20:42)
[2018-10-26] MEDS: VANCOMYCIN HCL 1,000 MG, VIAL MATE ADAPTER 1 EACH in D5W 250 ML IV SCH ×2 (15:49→22:17)
[2018-10-26] MEDS: ONDANSETRON 4MG/2ML VIAL (J2405) IV PRN ×2 (16:32→20:42)
[2018-10-26] MEDS ORDERED: MULTIVITAMIN -ADULT INJECTION 10 ML, CR/CU/SE/MN/ZN INJ 1 ML in AMINO AC/ELECTROLYTE/DE... IV SCH (18:00)
[2018-10-26] MEDS ORDERED: FAT EMULSION IV 20% 500 ML IV SCH (18:00)
[2018-10-27] VITALS: BP 127/81
--- NOTE | 2018-10-27 | ECGEPIP ---
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
--- NOTE | 2018-10-27 00:15 | ECGEPIP ---
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
[2018-10-27] MEDS: METOPROLOL 5 MG/5 ML VIAL IV SCH ×4 (02:37→20:00)
[2018-10-27] MEDS: ONDANSETRON 4MG/2ML VIAL (J2405) IV PRN ×5 (02:37→21:41)
[2018-10-27 04:00] VITALS: BP 113/81
[2018-10-27] MEDS: HYDROMORPHONE HCL 0.5 MG/ 0.5 ML SYRINGE (J1170 PER 1) IV PRN ×6 (04:41→21:42)
[2018-10-27] MEDS: PIPERACILLIN/TAZOBACTAM SOD 3.375 GM in D5W MINI-BAG PLUS 50 ML IV SCH ×4 (04:41→23:52)
[2018-10-27] MEDS: HYDROmorphone 2 MG TAB PO SCH ×4 (05:08→23:52)
[2018-10-27 05:44] LABS: HEMATOCRIT 36.5 % (42.0-52.0); HEMOGLOBIN 11.4 g/dl (13.5-17.5); MEAN CORPUSCULAR HEMOGLOBIN 27.1 pg (27.0-33.0); MEAN CORPUSCULAR HGB CONC 31.2 g/dl (32.0-36.5); MEAN CORPUSCULAR VOLUME 86.9 fl (80.0-96.0); PLATELET COUNT, AUTOMATED 174 10^3/uL (150-450); WHITE BLOOD COUNT 9.9 10^3/uL (4.0-10.0)
[2018-10-27] MEDS: SODIUM CHLORIDE 0.9% INJ 10 ML SYR IV SCH ×2 (05:48→17:46)
[2018-10-27] MEDS: VANCOMYCIN HCL 1,000 MG, VIAL MATE ADAPTER 1 EACH in D5W 250 ML IV SCH ×3 (05:48→21:42)
[2018-10-27 05:56] LABS: BLOOD UREA NITROGEN 14 MG/DL (7-18); CARBON DIOXIDE LEVEL 25 MEQ/L (21-32); CHLORIDE LEVEL 105 MEQ/L (98-107); CREATININE FOR GFR 0.82 MG/DL (0.70-1.30); GLOMERULAR FILTRATION RATE > 60.0 (>56); GLUCOSE, FASTING 121 MG/DL (70-100); MAGNESIUM LEVEL 1.7 MG/DL (1.8-2.4); POTASSIUM SERUM 3.6 MEQ/L (3.5-5.1); SODIUM LEVEL 140 MEQ/L (136-145); VANCOMYCIN LEVEL TROUGH 18.6 UG/ML (10.0-20.0)
--- NOTE | 2018-10-27 06:07 | PHACANCOPD ---
PHARMACY VANCOMYCIN DOSING Pt Demographics Demographics Patient Age:48 , Weight:73.000 , Gender: male Adjusted Body Weight Date: 10/26/18, Adjusted Body Weight: [73] Kg ACTUAL WT Vancomycin Vancomycin indication: PNEUMONIA,MRSA Vancomycin Target Ranges: 15-20 mcg/ml Vancomycin Load Y/N: No Load Dose Date Time Vancomycin Load Dose: Date: Time: Vancomycin Dose Date: 10/26/18. Current Vancomycin Dose: [1 GM IV Q8H] Intermittent Dosing?: No Labs Labs Laboratory Tests 10/27/18 05:23 Red Blood Count 4.20 L, Mean Corpuscular Volume 86.9, Mean Corpuscular Hemoglobin 27.1, Mean Corpuscular Hemoglobin Concent 31.2 L, Red Cell Distribution Width 16.1 H, Calcium Level 8.0 L Creatinine Clearance Date:10/27/18. Creatinine Clearance: [110].CALCULATED Date:10/26/18. Creatinine Clearance: [86.9].CALCULATED Assessment and Plan Maintaining Current Dose?: Yes Reason for dose change: No Dose Change Pharmacist Note Pharmacist Note Date: 10/27/18. Pharmacist note:Vancomycin trough drawn this morning@5:23 reported as 18.6(goal=15-20).SCR=0.82, GLBC=561.Will continue current Vanco regimen( 1 gram IV [id number])-Will continue to monitor labs Date: 10/26/18. Pharmacist note:48 YOM w/pneumonia/MRSA receiving Pip/Tazo 3.375 gm iv [id number] and Vancomycin per Pharmacy consult. Vancomycin 1 gram IV Ordered for 10/26@0600, then will continue with a Q8hour regimen. First Vancomycin trough is scheduled for 10/27@0500( prior to the 4th dose)-Will continue to follow patient [facility] Oct 27, 2018 06:07
[2018-10-27] MEDS: HumaLOG INSULIN (NovoLOG) PER UNIT SC SCH ×4 (06:17→23:52)
[2018-10-27] MEDS: SUCRALFATE 1 GM TAB PO SCH ×4 (07:30→21:00)
[2018-10-27 08:00] VITALS: BP 131/85
[2018-10-27 08:10] LABS: ALBUMIN 1.8 GM/DL (3.2-5.2)
[2018-10-27] MEDS: PANTOPRAZOLE 40MG INJ (PROTONIX) (C9113) IV SCH ×2 (08:16→21:41)
[2018-10-27] MEDS: SODIUM CHLORIDE 0.9% INJ 10 ML SYR IV PRN (08:17)
[2018-10-27] MEDS: MAGNESIUM OXIDE 400 MG TAB (MAG-OX) PO SCH (09:00)
[2018-10-27] MEDS: FLUoxetine 20 MG CAP PO SCH (09:00)
[2018-10-27] MEDS: ROSUVASTATIN 10 MG TAB (CRESTOR) PO SCH (09:00)
[2018-10-27] MEDS: MULTIVITAMINS/MINERALS THERAP 1 TAB PO SCH (09:00)
[2018-10-27 12:00] VITALS: BP 124/71
[2018-10-27 16:00] VITALS: BP 121/70
--- NOTE | 2018-10-27 17:08 | IPNPDOC ---
Subjective Date Seen The patient was seen on 10/27/18. Subjective Chief Complaint/HPI No acute events overnight. Patient and family stating they want a transfer and feel as though nothing is being done here for them. Continues to feel nauseated when he attempts po meds. Objective Physical Examination General Exam: Positive: Alert, No Acute Distress, Other (cachectic, pale) Chest Exam: Positive: Clear to auscultation; Negative: Rales, Rhonchi Heart Exam: Positive: Rate Normal, Regular Rhythm, Normal S1, Normal S2 Abdomen Exam: Positive: Normal bowel sounds, Soft, Tenderness (throughout ) Extremity Exam: Negative: Clubbing, Edema Skin Exam: Positive: Nl turgor and temperature Psych Exam: Positive: Other (flat affect, restricted) Assessment /Plan Problems (1) Chronic abdominal pain Status: Acute Problem Text: 10/27- Family wanting transfer for possible evaluation by colorectal surgeon. Will call [facility] as they are familiar with patient and have colorectal surgery on site to see if they will accept. Will also try [facility] and [facility] if the initial attempt fails. 1627 put out call to [facility] transfer center who attempted to connect me with hospitalist to discuss transfer. Slate Roofer stated hospitalist busy with patient and would call back within 30 minutes. 1722- Spoke with Dr. Paulino about the patient and the potential transfer. Dr. Paulino will call colorectal surgeon to discuss case and call me back. 1799- call out to hospitalist secretary to board of commissioners, last she heard Dr. Paulino was reaching out to colorectal surgeon and was unsure when he would be able to reach me. Plan was still to call me back, but unsure when. 1936- Dr. Cardoso called back to inform me he had tried the surgeon a couple times and that the surgeon was still in the OR. He will reach out once he hears back. Was unsure if bed was available and thought best bet may be to try for tomorrow morning, but that he would let the surgeon know either way. If answer is no from [facility], will reach out to other facilities tomorrow morning. Plan pending transfer is discussed in 10/26 note. 10/26/18: Pain persists, nausea persists. Patient is receiving Zofran IV. He has declined compazine prn for his nausea. Plan for sigmoid colectomy unchanged- Mon vs 10/29 vs 10/31 P OR schedule. Cardiology provided surgical clearance. Rec ommendation is to hold Amiodarone, ASA and Plavix for now. I will stop those medications today and we will need to reassess post-operatively. Also, given patient is unable to tolerate PO meds, the recommendation was to start Metoprolol 5 mg q 6 hs IV with holding parameter for systolic BP <120. Medication was changed this morning. PPI changed to Pantoprazole 40mg IV BID mainly right-midline lower quadrant-constant c nausea/anorexia, favor 2 stricture 2 colitis (inflammatory vs ischemic) vs malignant 10/25/18: Patient continues to use PRN Dilaudid. He has refused all oral medications. I will defer changing his cardiac meds to from po to IV to Cardiology. Case dw Dr. Garcia-patient cleared for sigmoid colectomy-plan for Mon vs 10/29 vs 10/31 P OR schedule (defer cholecystectomy for future date given high surgical risk at this time) Sigmoidoscopy Findings: A severe stenosis measuring of unknown length x 4 mm (inner diameter) was found at 30 cm proximal to the anus and was non-traversed. 10/23/18: appreciate GI input-planning sigmoid given worse by CT and main source of pain and PICC placed to provide nutrition and pancreatic rest Patient with nausea and vomiting this morning. He was unable to take pain med po. K+ 5.2. Patient was changed to NPO. IV fluids changed to D5 1/2 NS at 60/hr. Hydromorphone 0.6mg IV q 3 hours prn pain only if unable to take PO med. 10/22/[address] Vasquez for opinion +/- colonoscopy/biopsy 10/21/18: CT AP: 1. A catheter is present in the gallbladder. 2. There is increased density in the pancreatic region likely representing edema and residual fluid collections. There is no definite new fluid collection. 3. There is thickening of a wall of a small segment of sigmoid colon with surrounding edema that may represent inflammatory bowel disease. 4. There is a small amount of free fluid in the abdomen. Electronically Signed by David Joel MD 10/21/2018 02:49 P DD: David Joel MD 10/21/18 4849 DT: KAYKAY 10/21/18 1350 DS: BEA 10/21/18 1449 10/21/18 1449 [~ rep ct labl] (2) Pneumonia Status: Acute Response to Treatment: Stable Problem Text: 10/26/18: Day 1 of Vancomycin and Zosyn. WBC 14.4. A-febrile Chest X-ray: Pulmonary edema pattern bilaterally. Cardiomegaly with pacemaker. Small amounts of bilateral pleural fluid. CHF pattern (3) Systolic and diastolic CHF, acute on chronic Status: Chronic Problem Text: 10/26/18: Patient well compensated this morning. This morning patient had a chest x-ray d/t some chest discomfort. Patient's preliminary chest x-ray appeared to show a right lower lobe pneumonia with increased cephalization of pulmonary vasculature secondary to volume overload and pulmonary edema. Chest xray report deomonstrated Pulmonary edema pattern bilaterally. Cardiomegaly with pacemaker. Small amounts of bilateral pleural fluid. CHF pattern: He was given a one time dose of 40 mg of Lasix IV. IVF were discontinued. Patient was placed on abx to cover for pneumonia. We will continue to monitor 10/25/18: Patient appears well compensated on exam 10/23/18: IVF changed and rate decreased. Patient appears euvolemic on exam Echo 09/03/18: EF 30% Normal sinus rhythm with dual-chamber pacemaker. Appropriate atrial sensing and tracking with consistent ventricular paced. Paced QRS complexes with left bundle branch block QRS configuration. M-mode and two-dimensional echocardiography was performed with pulsed, continuous wave, color flow and tissue Doppler studies. Moderately dilated left ventricle with borderline hypertrophy. Paradoxical septal wall motion and apical akinesis related to right ventricular paced rhythm. Moderate to moderately severe impairment of global resting systolic function. Mildly dilated left atrium with impairment of LV diastolic function and elevated mean left atrial pressure. Right heart chamber sizes upper limits of normal with right ventricular hypokinesis and Doppler evidence of moderate pulmonary hypertension. Mildly dilated IVC with slightly reduced respiratory collapse suggestive of central venous pressure of approximately 10 - 15 mmHg. Slight aortic valvular sclerosis with adequate cusp separation but premature cu sp closure in keeping with reduced forward stroke volume. WILL NEED MONITORING ON i/O DUE TO HX OF CHF (4) Pancreatitis Permanent Comment: ? etiology-favor hyperTG (08/09/18 TG 506), +/- gliptin use (was on stevo) 10/23/18 CA-19-9 24 10/23/18 24 08/10/18 lipase 820 Last Edited By: Hari Hoang MD on Oct 23, 2018 17:54 Status: Acute Problem Text: as per abdominal pain ? etiology-favor hyperTG (08/09/18 TG 506), +/- gliptin use (was on stevo) 10/23/18 CA-19-9 24 10/23/18 24 08/10/18 lipase 820 (5) CAD (coronary artery disease) Status: Chronic Problem Text: No active symptoms (6) Depression Status: Chronic (7) DM2 (diabetes mellitus, type 2) Status: Chronic Problem Text: 10/25/18: We are starting TPN with finger sticks q 6 hrs and s liding scale coverage per protocol Metformin on hold. hypoglycemic this am. poor po intake. monitor glucose levels. add in D5 to IVF if hypoglycemia returns/persists. (8) Malnutrition Status: Chronic Problem Text: 10/26/18: TPN 10/25/18: TPN ordered today. We will monitor BGs per protocol 10/24 -- PICC line in place, should initiate TPN tomorrow. Nutritional assessment has been in the chart, but does not make recommendations re: TPN, and a formal consult for TPN recommendations was ordered. Plan/VTE VTE Prophylaxis Ordered?: Yes (Plavix) VS, I&O, 24H, Fishbone Vital Signs/I&O Vital Signs Date Time Temp Pulse Resp B/P (MAP) Pulse Ox O2 Delivery O2 Flow Rate FiO2 10/27/18 15:01 20 10/27/18 13:50 93 119/72 10/27/18 12:00 98.2 97 10/26/18 16:00 2.0 10/21/18 09:57 Room Air I&O- Last 24 Hours up to 6 AM 10/27/18 06:00 Intake Total 3560 ml Output Total 6215 ml Balance -2655 ml Laboratory Data 24H LABS Laboratory Tests 2 10/26/18 17:39: Bedside Glucose (Misc Panel) 194H 10/26/18 23:41: Bedside Glucose (Misc Panel) 157H 10/27/18 05:23: Nucleated Red Blood Cells % (auto) 0.0, Anion Gap 10, Glomerular Filtration Rate > 60.0, Blood Urea Nitrogen 14, Creatinine 0.82, Sodium Level 140, Potassium Level 3.6, Chloride Level 105, Carbon Dioxide Level 25, Calcium Level 8.0L, Magnesium Level 1.7L, Albumin 1.8L, Vancomycin Level Trough 18.6 10/27/18 12:04: Bedside Glucose (Misc Panel) 153H CBC/BMP Laboratory Tests 10/27/18 05:23 Red Blood Count 4.20 L, Mean Corpuscular Volume 86.9, Mean Corpuscular Hemo globin 27.1, Mean Corpuscular Hemoglobin Concent 31.2 L, Red Cell Distribution Width 16.1 H, Calcium Level 8.0 L GME ATTESTATION GME ATTESTATION My faculty preceptor for this patient encounter was physically present during the encounter and was fully available. All aspects of the patient interview, examination, medical decision making process, and medical care plan development were reviewed and approved by the faculty preceptor. The faculty preceptor is aware and concurs with the plan as stated in the body of this note and will attest to such by his/her cosignature. ATTENDING NOTE Patient seen and examined. Discussed plan of care with patient and a niece who is identified as health care proxy. He seems to have lost confidence in care and expresses frustration about not proceeding with Surgery yesterday or today and says now he is uncertain about when the surgery will be done. They are not too happy with plan to create diverting colostomy which may necessitate additional future surgery. He and niece express that they have been requesting transfer for 4 days. He had his cardiology care at [facility] and that facility has colorectal surgery subspecialists. Transfer center contacted as noted by Dr. Salinas. USHA SALINAS DO Oct 27, 2018 17:08 Usha Alexander MD Oct 28, 2018 08:29
[2018-10-27] MEDS: PROCHLORPERAZINE 25 MG SUPP PR PRN (17:45)
[2018-10-27] MEDS ORDERED: AMINO AC/ELECTROLYTE/DEX/CALC 2,000 ML IV SCH (18:00)
[2018-10-27] MEDS ORDERED: FAT EMULSION IV 20% 500 ML IV SCH (18:00)
[2018-10-27 20:00] VITALS: BP 122/74
[2018-10-28] VITALS: BP 119/73
[2018-10-28] MEDS: METOPROLOL 5 MG/5 ML VIAL IV SCH ×5 (01:53→23:59)
[2018-10-28] MEDS: ONDANSETRON 4MG/2ML VIAL (J2405) IV PRN ×5 (01:54→21:13)
[2018-10-28] MEDS: HYDROMORPHONE HCL 0.5 MG/ 0.5 ML SYRINGE (J1170 PER 1) IV PRN ×6 (01:54→23:46)
[2018-10-28 04:00] VITALS: BP 121/79
[2018-10-28] MEDS: HYDROmorphone 2 MG TAB PO SCH ×4 (05:47→23:47)
[2018-10-28] MEDS: PIPERACILLIN/TAZOBACTAM SOD 3.375 GM in D5W MINI-BAG PLUS 50 ML IV SCH ×4 (05:47→22:37)
[2018-10-28] MEDS: SODIUM CHLORIDE 0.9% INJ 10 ML SYR IV SCH ×2 (06:00→18:00)
[2018-10-28 06:16] LABS: HEMATOCRIT 32.6 % (42.0-52.0); HEMOGLOBIN 10.1 g/dl (13.5-17.5); MEAN CORPUSCULAR HEMOGLOBIN 26.2 pg (27.0-33.0); MEAN CORPUSCULAR VOLUME 84.5 fl (80.0-96.0); PLATELET COUNT, AUTOMATED 168 10^3/uL (150-450); RED BLOOD COUNT 3.86 10^6/uL (4.30-6.10); WHITE BLOOD COUNT 7.8 10^3/uL (4.0-10.0)
[2018-10-28 06:30] LABS: BLOOD UREA NITROGEN 12 MG/DL (7-18); CALCIUM LEVEL 8.2 MG/DL (8.5-10.1); CARBON DIOXIDE LEVEL 26 MEQ/L (21-32); CHLORIDE LEVEL 103 MEQ/L (98-107); CREATININE FOR GFR 0.82 MG/DL (0.70-1.30); GLOMERULAR FILTRATION RATE > 60.0 (>56); GLUCOSE, FASTING 147 MG/DL (70-100); MAGNESIUM LEVEL 1.7 MG/DL (1.8-2.4); POTASSIUM SERUM 3.1 MEQ/L (3.5-5.1); SODIUM LEVEL 138 MEQ/L (136-145)
[2018-10-28] MEDS: HumaLOG INSULIN (NovoLOG) PER UNIT SC SCH ×4 (06:54→23:45)
[2018-10-28] MEDS: VANCOMYCIN HCL 1,000 MG, VIAL MATE ADAPTER 1 EACH in D5W 250 ML IV SCH ×3 (06:54→21:13)
[2018-10-28] MEDS: SUCRALFATE 1 GM TAB PO SCH ×4 (07:39→20:36)
[2018-10-28 08:00] VITALS: BP 126/79
[2018-10-28] MEDS: PANTOPRAZOLE 40MG INJ (PROTONIX) (C9113) IV SCH ×2 (08:53→20:34)
[2018-10-28] MEDS ORDERED: MAG SULF 1GM/100ML (MAG RUN) 1 GM in APPROPRIATE DILUENT 1 EA IV ONE (09:00)
[2018-10-28] MEDS: FLUoxetine 20 MG CAP PO SCH (09:00)
[2018-10-28] MEDS: MULTIVITAMINS/MINERALS THERAP 1 TAB PO SCH (09:00)
[2018-10-28] MEDS: ROSUVASTATIN 10 MG TAB (CRESTOR) PO SCH (09:00)
[2018-10-28] MEDS: MAGNESIUM OXIDE 400 MG TAB (MAG-OX) PO SCH (09:00)
[2018-10-28] MEDS ORDERED: KCL 10MEQ/100ML SWI (KRUN) 10 MEQ in APPROPRIATE DILUENT 1 EA IV ONE ×2 (10:00→12:30)
[2018-10-28 12:00] VITALS: BP 119/85
--- NOTE | 2018-10-28 13:02 | IPNPDOC ---
Subjective Date Seen The patient was seen on 10/28/18. Subjective Chief Complaint/HPI continues with abdominal pain and inanition Constitutional: Denies: Chills ENT: Denies: Head Aches Pulmonary: Denies: Dyspnea, Pleuritic Chest Pain Cardiovascular: Denies: Chest Pain, Orthopnea Gastrointestinal: Reports: Nausea, Abdominal Pain (Nausea and abdominal pain when he attempts to eat is reported.) Neurological: Denies: Change in speech, Confusion Objective Physical Examination General Exam: Positive: Alert, No Acute Distress, Other Chest Exam: Positive: Clear to auscultation Heart Exam: Positive: Rate Normal, Regular Rhythm, Normal S1, Normal S2 Abdomen Exam: Positive: Normal bowel sounds, Soft, Tenderness (diffusely tender. positive pelvic shake tenderness.) Extremity Exam: Negative: Clubbing, Edema Skin Exam: Positive: Nl turgor and temperature Neuro Exam: Positive: Normal Speech Psych Exam: Positive: Mental status NL, Other Assessment /Plan Problems (1) Chronic abdominal pain Status: Acute Problem Text: 10/28: contacted [facility] to try to facilitate transfer. Waiting call for bed availability. None now, maybe later. Lipase was normal throughout this admission. CT shows no new drainable collection in pancreatic head although changes compatible with chronic pancreatitis are seen. gallbladder drainage system is in place. Ct w/o IV contrast showed colonic edema and scope done by Dr. Vasquez showed non-traversable stricture 30cm from anal verge. Current surgical plan is for diverting colostomy. Not convinced this will resolve the diffuse abdominal pain problem but pathology could be informative. Bx of colon was pretty non-specific. Still needs IV metoprolol for rate control, but he has an AICD in place so no real concern about excessive heart rate slowing from the IV med since his pacemaker functions normally. 10/27- Pain persists, see 10/26 note below for plan if transfer attempt is unsu ccessful. No new changes made. 10/26/18: Pain persists, nausea persists. Patient is receiving Zofran IV. He has declined compazine prn for his nausea. Plan for sigmoid colectomy unchanged- Mon vs Wed 10/29 vs 10/31 P OR schedule. Cardiology provided surgical clearance. Recommendation is to hold Amiodarone, ASA and Plavix for now. I will stop those medications today and we will need to reassess post-operatively. Also, given patient is unable to tolerate PO meds, the recommendation was to start Metoprolol 5 mg q 6 hs IV with holding parameter for systolic BP <120. Medication was changed this morning. PPI changed to Pantoprazole 40mg IV BID mainly right-midline lower quadrant-constant c nausea/anorexia, favor 2 stricture 2 colitis (inflammatory vs ischemic) vs malignant 10/25/18: Patient continues to use PRN Dilaudid. He has refused all oral medications. I will defer changing his cardiac meds to from po to IV to Cardiology. Case dw Dr. Garcia-patient cleared for sigmoid colectomy-plan for Mon vs 10/29 vs 10/31 P OR schedule (defer cholecystectomy for future date given high surgical risk at this time) Sigmoidoscopy Findings: A severe stenosis measuring of unknown length x 4 mm (inner diameter) was found at 30 cm proximal to the anus and was non-traversed. 10/23/18: appreciate GI input-planning sigmoid given worse by CT and main source of pain and PICC placed to provide nutrition and pancreatic rest Patient with nausea and vomiting this morning. He was unable to take pain med po. K+ 5.2. Patient was changed to NPO. IV fluids changed to D5 1/2 NS at 60/hr. Hydromorphone 0.6mg IV q 3 hours prn pain only if unable to take PO med. 10/22/[address] Vasquez for opinion +/- colonoscopy/biopsy 10/21/18: CT AP: 1. A catheter is present in the gallbladder. 2. There is increased density in the pancreatic region likely representing edema and residual fluid collections. There is no definite new fluid collection. 3. There is thickening of a wall of a small segment of sigmoid colon with surrounding edema that may represent inflammatory bowel disease. 4. There is a small amount of free fluid in the abdomen. Electronically Signed by David Joel MD 10/21/2018 02:49 P DD: David Joel MD 10/21/18 1313 DT: KAYKAY 10/21/18 1350 DS: BEA 10/21/18 1449 10/21/18 1449 [~ rep ct labl] (2) Pneumonia Status: Acute Response to Treatment: Stable Problem Text: 10/26/18: Day 1 of Vancomycin and Zosyn. WBC 14.4. A-febrile Chest X-ray: Pulmonary edema pattern bilaterally. Cardiomegaly with pacemaker. Small amounts of bilateral pleural fluid. CHF pattern (3) Systolic and diastolic CHF, acute on chronic Status: Chronic Problem Text: 10/26/18: Patient well compensated this morning. This morning patient had a chest x-ray d/t some chest discomfort. Patient's preliminary chest x-ray appeared to show a right lower lobe pneumonia with increased cephalization of pulmonary vasculature secondary to volume overload and pulmonary edema. Chest xray report deomonstrated Pulmonary edema pattern bilaterally. Cardiomegaly with pacemaker. Small amounts of bilateral pleural fluid. CHF pattern: He was given a one time dose of 40 mg of Lasix IV. IVF were discontinued. Patient was placed on abx to cover for pneumonia. We will continue to monitor 10/25/18: Patient appears well compensated on exam 10/23/18: IVF changed and rate decreased. Patient appears euvolemic on exam Echo 09/03/18: EF 30% Normal sinus rhythm with dual-chamber pacemaker. Appropriate atrial sensing and tracking with consistent ventricular paced. Paced QRS complexes with left bundle branch block QRS configuration. M-mode and two-dimensional echocardiography was performed with pulsed, continuous wave, color flow and tissue Doppler studies. Moderately dilated left ventricle with borderline hypertrophy. Paradoxical septal wall motion and apical akinesis related to right ventricular paced rhythm. Moderate to moderately severe impairment of global resting systolic function. Mildly dilated left atrium with impairment of LV diastolic function and elevated mean left atrial pressure. Right heart chamber sizes upper limits of normal with right ventricular hypokinesis and Doppler evidence of moderate pulmonary hypertension. Mildly dilated IVC with slightly reduced respiratory collapse suggestive of central venous pressure of approximately 10 - 15 mmHg. Slight aortic valvular sclerosis with adequate cusp separation but premature cusp closure in keeping with reduced forward stroke volume. WILL NEED MONITORING ON i/O DUE TO HX OF CHF (4) Pancreatitis Permanent Comment: ? etiology-favor hyperTG (08/09/18 TG 506), +/- gliptin use (was on stevo) 10/23/18 CA-19-9 24 10/23/18 24 08/10/18 lipase 820 Last Edited By: Hari Hoang MD on Oct 23, 2018 17:54 Status: Acute Problem Text: as per abdominal pain ? etiology-favor hyperTG (08/09/18 TG 506), +/- gliptin use (was on stevo) 10/23/18 CA-19-9 24 10/23/18 24 08/10/18 lipase 820 (5) CAD (coronary artery disease) Status: Chronic Problem Text: No active symptoms (6) Depression Status: Chronic (7) DM2 (diabetes mellitus, type 2) Status: Chronic Problem Text: 10/25/18: We are starting TPN with finger sticks q 6 hrs and sliding scale coverage per protocol Metformin on hold. hypoglycemic this am. poor po intake. monitor glucose levels. add in D5 to IVF if hypoglycemia returns/persists. (8) Malnutrition Status: Chronic Problem Text: 10/26/18: TPN 10/25/18: TPN ordered today. We will monitor BGs per protocol 10/24 -- PICC line in place, should initiate TPN tomorrow. Nutritional assessment has been in the chart, but does not make recommendations re: TPN, and a formal consult for TPN recommendations was ordered. Plan/VTE VTE Prophylaxis Ordered?: Yes (Plavix) VS, I&O, 24H, [facility] Vital Signs/I&O Vital Signs Date Time Temp Pulse Resp B/P (MAP) Pulse Ox O2 Delivery O2 Flow Rate FiO2 10/28/18 12:00 98.1 74 18 119/85 (96) 98 10/26/18 16:00 2.0 I&O- Last 24 Hours up to 6 AM 10/28/18 06:00 Intake Total 1580 ml Output Total 1580 ml Balance 0 ml Laboratory Data 24H LABS Laboratory Tests 2 10/27/18 18:03: Bedside Glucose (Misc Panel) 164H 10/27/18 23:41: Bedside Glucose (Misc Panel) 149H 10/28/18 06:01: Nucleated Red Blood Cells % (auto) 0.0, Anion Gap 9, Glomerular Filtration Rate > 60.0, Blood Urea Nitrogen 12, Creatinine 0.82, Sodium Level 138, Potassium Level 3.1L, Chloride Level 103, Carbon Dioxide Level 26, Calcium Level 8.2L, Magnesium Level 1.7L 10/28/18 06:28: Bedside Glucose (Misc Panel) 141H 10/28/18 11:48: Bedside Glucose (Misc Panel) 184H CBC/BMP Laboratory Tests 10/28/18 06:01 Red Blood Count 3.86 L, Mean Corpuscular Volume 84.5, Mean Corpuscular Hemoglobin 26.2 L, Mean Corpuscular Hemoglobin Concent 31.0 L, Red Cell D istribution Width 16.4 H, Calcium Level 8.2 L Zane Alexander MD Oct 28, 2018 13:01
[2018-10-28 16:00] VITALS: BP 126/86
[2018-10-28] MEDS ORDERED: AMINO AC/ELECTROLYTE/DEX/CALC 2,000 ML IV SCH (18:00)
[2018-10-28] MEDS ORDERED: FAT EMULSION IV 20% 500 ML IV SCH (18:00)
[2018-10-28 20:00] VITALS: BP 117/75
[2018-10-28] MEDS: SODIUM CHLORIDE 0.9% INJ 10 ML SYR IV PRN (23:47)
[2018-10-29] VITALS (11 sets, daily range): BP systolic 114–133; BP diastolic 64–83
[2018-10-29] MEDS: ONDANSETRON 4MG/2ML VIAL (J2405) IV PRN ×5 (02:43→20:42)
[2018-10-29] MEDS: METOPROLOL 5 MG/5 ML VIAL IV SCH ×6 (04:00→23:33)
[2018-10-29] MEDS: HYDROMORPHONE HCL 0.5 MG/ 0.5 ML SYRINGE (J1170 PER 1) IV PRN ×6 (04:13→23:35)
[2018-10-29] MEDS: HYDROmorphone 2 MG TAB PO SCH ×4 (05:03→23:32)
[2018-10-29] MEDS: PIPERACILLIN/TAZOBACTAM SOD 3.375 GM in D5W MINI-BAG PLUS 50 ML IV SCH ×4 (05:03→23:32)
[2018-10-29 05:07] LABS: HEMATOCRIT 29.5 % (42.0-52.0); HEMOGLOBIN 9.3 g/dl (13.5-17.5); MEAN CORPUSCULAR HEMOGLOBIN 26.6 pg (27.0-33.0); MEAN CORPUSCULAR HGB CONC 31.5 g/dl (32.0-36.5); MEAN CORPUSCULAR VOLUME 84.5 fl (80.0-96.0); PLATELET COUNT, AUTOMATED 167 10^3/uL (150-450); RED BLOOD COUNT 3.49 10^6/uL (4.30-6.10); WHITE BLOOD COUNT 7.4 10^3/uL (4.0-10.0)
[2018-10-29] MEDS: SODIUM CHLORIDE 0.9% INJ 10 ML SYR IV SCH ×2 (05:12→18:08)
[2018-10-29 05:25] LABS: BLOOD UREA NITROGEN 12 MG/DL (7-18); CALCIUM LEVEL 8.2 MG/DL (8.5-10.1); CARBON DIOXIDE LEVEL 26 MEQ/L (21-32); CHLORIDE LEVEL 106 MEQ/L (98-107); CREATININE FOR GFR 0.75 MG/DL (0.70-1.30); GLOMERULAR FILTRATION RATE > 60.0 (>56); GLUCOSE, FASTING 144 MG/DL (70-100); POTASSIUM SERUM 3.2 MEQ/L (3.5-5.1); SODIUM LEVEL 138 MEQ/L (136-145)
[2018-10-29] MEDS ORDERED: KCL 10MEQ/100ML SWI (KRUN) 10 MEQ in APPROPRIATE DILUENT 1 EA IV ONE ×3 (05:45→11:00)
[2018-10-29] MEDS: HumaLOG INSULIN (NovoLOG) PER UNIT SC SCH ×4 (06:05→23:33)
[2018-10-29 06:18] LABS: MAGNESIUM LEVEL 1.8 MG/DL (1.8-2.4)
[2018-10-29] MEDS: VANCOMYCIN HCL 1,000 MG, VIAL MATE ADAPTER 1 EACH in D5W 250 ML IV SCH (06:26)
[2018-10-29] MEDS: KCL 10MEQ/100ML SWI (KRUN) 10 MEQ in APPROPRIATE DILUENT 1 EA IV SCH ×3 (07:57→10:35)
--- NOTE | 2018-10-29 08:06 | IPNPDOC ---
Subjective Date Seen The patient was seen on 10/29/18. Subjective Chief Complaint/HPI ABDOMINAL PAIN Events since last encounter Patient has requested transfer for colorectal consultation in [place], No beds available currently. Patient would like to continue with contingent plan of diverting colostomy as planned with Dr. Bedoya in 2 days if no beds available in [place]. Continues to c/o abdominal pain, relieved with prn dilaudid. Receiving TPN via PICC line for nutrition needs. Pulmonary: Denies: Dyspnea, Cough Cardiovascular: Denies: Chest Pain, Palpitations, Orthopnea, Paroxysmal Noc. Dyspnea, Lt Headedness Gastrointestinal: Reports: Nausea, Abdominal Pain, Other Symptoms (key drain); Denies: Vomiting, Diarrhea Psych: Reports: Anxiety Objective Physical Examination General Exam: Positive: Alert, No Acute Distress, Other (cachectic, pale) Chest Exam: Positive: Clear to auscultation; Negative: Rales, Rhonchi Heart Exam: Positive: Rate Normal, Regular Rhythm, Normal S1, Normal S2 Abdomen Exam: Positive: Normal bowel sounds, Soft, Tenderness (throughout ) Extremity Exam: Negative: Clubbing, Edema Skin Exam: Positive: Nl turgor and temperature Neuro Exam: Positive: Normal Speech Psych Exam: Positive: Other (flat affect, restricted) Assessment /Plan Problems (1) Chronic abdominal pain Status: Acute Problem Text: 10/29/18: No bed available at [facility]; therefore, proceed with Diverting colostomy with Dr. Bedoya as scheduled for 10/31/18. 10/27- Family wanting transfer for possible evaluation by colorectal surgeon. Will call [facility] as they are familiar with patient and have colorectal surgery on site to see if they will accept. Will also try [facility] and [facility] facilities if the initial attempt fails. [address] [facility] transfer center who attempted to connect me with hospitalist to discuss transfer. [employer] stated hospitalist busy with patient and would call back within 30 minutes. 1722- Spoke with Dr. Paulino about the patient and the potential transfer. Dr. Paulino will call colorectal surgeon to discuss case and call me back. 1799- call out to hospitalist alumni secretary, last she heard Dr. Paulino was reaching out to colorectal surgeon and was unsure when he would be able to reach me. Plan was still to call me back, but unsure when. 1936- Dr. Cardoso called back to inform me he had tried the surgeon a couple times and that the surgeon was still in the OR. He will reach out once he hears back. Was unsure if bed was available and thought best bet may be to try for tomorrow morning, but that he would let the surgeon know either way. If answer is no from [facility], will reach out to other facilities tomorrow morning. Plan pending transfer is discussed in 10/26 note. 10/26/18: Pain persists, nausea persists. Patient is receiving Zofran IV. He has declined compazine prn for his nausea. Plan for sigmoid colectomy unchanged- Mon vs 10/29 vs 10/31 P OR schedule. Cardiology provided surgical clearance. Recommendation is to hold Amiodarone, ASA and Plavix for now. I will stop those medications today and we will need to reassess post-operatively. Also, given patient is unable to tolerate PO meds, the recommendation was to start Metoprolol 5 mg q 6 hs IV with holding parameter for systolic BP <120. Medication was changed this morning. PPI changed to Pantoprazole 40mg IV BID mainly right-midline lower quadrant-constant c nausea/anorexia, favor 2 stricture 2 colitis (inflammatory vs ischemic) vs malignant 10/25/18: Patient continues to use PRN Dilaudid. He has refused all oral medications. I will defer changing his cardiac meds to from po to IV to Cardiology. Case tom Garcia-patient cleared for sigmoid colectomy-plan for Mon vs 10/29 vs 10/31 P OR schedule (defer cholecystectomy for future date given high surgical risk at this time) Sigmoidoscopy Findings: A severe stenosis measuring of unknown length x 4 mm (inner diameter) was found at 30 cm proximal to the anus and was non-traversed. 10/23/18: appreciate GI input-planning sigmoid given worse by CT and main source of pain and PICC placed to provide nutrition and pancreatic rest Patient with nausea and vomiting this morning. He was unable to take pain med po. K+ 5.2. Patient was changed to NPO. IV fluids changed to D5 1/2 NS at 60/hr. Hydromorphone 0.6mg IV q 3 hours prn pain only if unable to take PO med. 10/22/18 case tom Weinerdl for opinion +/- colonoscopy/biopsy 10/21/18: CT AP: 1. A catheter is present in the gallbladder. 2. There is increased density in the pancreatic region likely representing edema and residual fluid collections. There is no definite new fluid collection. 3. There is thickening of a wall of a small segment of sigmoid colon with surrounding edema that may represent inflammatory bowel disease. 4. There is a small amount of free fluid in the abdomen. Electronically Signed by David Joel MD 10/21/2018 02:49 P DD: David Joel MD 10/21/18 1313 DT: KAYKAY 10/21/18 1350 DS: BEA 10/21/18 1449 10/21/18 1449 [~ rep ct labl] (2) Pneumonia Status: Acute Response to Treatment: Stable Problem Text: D3 Vancomycin and Zosyn (vanco held) 10/29/18: more cw improved CHF Chest X-ray: Pulmonary edema pattern bilaterally. Cardiomegaly with pacemaker. Small amounts of bilateral pleural fluid. CHF pattern 10/26/18 + Zosyn/vanco for ? PN, WBC 14.4; although no cough/F/C/hypoxia-? WBC related to colitis vs pancreatitis (3) Systolic and diastolic CHF, acute on chronic Status: Chronic Problem Text: 10/26/18: Patient well compensated this morning. This morning patient had a chest x-ray d/t some chest discomfort. Patient's preliminary chest x-ray appeared to show a right lower lobe pneumonia with increased cephalization of pulmonary vasculature secondary to volume overload and pulmonary edema. Chest xray report deomonstrated Pulmonary edema pattern bilaterally. Cardiomegaly with pacemaker. Small amounts of bilateral pleural fluid. CHF pattern: He was given a one time dose of 40 mg of Lasix IV. IVF were discontinued. Patient was placed on abx to cover for pneumonia. We will continue to monitor 10/25/18: Patient appears well compensated on exam 10/23/18: IVF changed and rate decreased. Patient appears euvolemic on exam Echo 09/03/18: EF 30% Normal sinus rhythm with dual-chamber pacemaker. Appropriate atrial sensing and tracking with consistent ventricular paced. Paced QRS complexes with left bundle branch block QRS configuration. M-mode and two-dimensional echocardiography was performed with pulsed, continuous wave, color flow and tissue Doppler studies. Moderately dilated left ventricle with borderline hypertrophy. Paradoxical septal wall motion and apical akinesis related to right ventricular paced rhythm. Moderate to moderately severe impairment of global resting systolic function. Mildly dilated left atrium with impairment of LV diastolic function and elevated mean left atrial pressure. Right heart chamber sizes upper limits of normal with right ventricular hypokinesis and Doppler evidence of moderate pulmonary hypertension. Mildly dilated IVC with slightly reduced respiratory collapse suggestive of central venous pressure of approximately 10 - 15 mmHg. Slight aortic valvular sclerosis with adequate cusp separation but premature cusp closure in keeping with reduced forward stroke volume. WILL NEED MONITORING ON i/O DUE TO HX OF CHF (4) Pancreatitis Permanent Comment: ? etiology-favor hyperTG (08/09/18 TG 506), +/- gliptin use (was on stevo) 10/23/18 CA-19-9 24 10/23/18 24 08/10/18 lipase 820 Last Edited By: Hari Hoang MD on Oct 23, 2018 17:54 Status: Acute Problem Text: as per abdominal pain ? etiology-favor hyperTG (08/09/18 TG 506), +/- gliptin use (was on stevo) 10/23/18 CA-19-9 24 10/23/18 24 08/10/18 lipase 820 (5) CAD (coronary artery disease) Status: Chronic Problem Text: No active symptoms (6) Depression Status: Chronic (7) DM2 (diabetes mellitus, type 2) Status: Chronic Problem Text: 10/25/18: We are starting TPN with finger sticks q 6 hrs and sliding scale coverage per protocol Metformin on hold. hypoglycemic this am. poor po intake. monitor glucose levels. add in D5 to IVF if hypoglycemia returns/persists. (8) Malnutrition Status: Chronic Problem Text: 10/26/18: TPN 10/25/18: TPN ordered today. We will monitor BGs per protocol 10/24 -- PICC line in place, should initiate TPN tomorrow. Nutritional assessment has been in the chart, but does not make recommendations re: TPN, and a formal consult for TPN recommendations was ordered. Plan/VTE VTE Prophylaxis Ordered?: Yes (Plavix) VS, I&O, 24H, Fishbone Vital Signs/I&O Vital Signs Date Time Temp Pulse Resp B/P (MAP) Pulse Ox O2 Delivery O2 Flow Rate FiO2 10/29/18 07:58 18 10/29/18 04:00 99.1 87 118/64 (82) 98 10/26/18 16:00 2.0 I&O- Last 24 Hours up to 6 AM 10/29/18 06:00 Intake Total 1490 ml Output Total 2650 ml Balance -1160 ml Laboratory Data 24H LABS Laboratory Tests 2 10/28/18 11:48: Bedside Glucose (Misc Panel) 184H 10/28/18 17:57: Bedside Glucose (Misc Panel) 168H 10/28/18 23:30: Bedside Glucose (Misc Panel) 155H 10/29/18 04:48: Nucleated Red Blood Cells % (auto) 0.0, Anion Gap 6L, Glomerular Filtration Rate > 60.0, Blood Urea Nitrogen 12, Creatinine 0.75, Sodium Level 138, Potassium Level 3.2L, Chloride Level 106, Carbon Dioxide Level 26, Calcium Level 8.2L, Magnesium Level 1.8 CBC/BMP Laboratory Tests 10/29/18 04:48 Red Blood Count 3.49 L, Mean Corpuscular Volume 84.5, Mean Corpuscular Hemogl obin 26.6 L, Mean Corpuscular Hemoglobin Concent 31.5 L, Red Cell Distribution Width 16.6 H, Calcium Level 8.2 L Cynthia Singer Oct 29, 2018 08:06 Hari Hoang M.D. Oct 29, 2018 16:49
[2018-10-29] MEDS: SUCRALFATE 1 GM TAB PO SCH ×4 (08:26→20:41)
[2018-10-29] MEDS: ROSUVASTATIN 10 MG TAB (CRESTOR) PO SCH (08:27)
--- NOTE | 2018-10-29 09:00 | REP ---
Chest x-ray: Two views. History: Follow-up right-sided infiltrate. Comparison study October 26, 2018. Findings: A multi lead pacemaker is seen in the right heart via the left side. A right-sided PICC line remains in place with its tip in the expected location of the superior vena cava. EKG electrodes are seen. Mildly prominent heart is again noted. Lung markings are improved bilaterally consistent with improved CHF pattern. There are persistent bilateral pleural effusions visible blunting the posterior pleural angles on lateral film. Impression: Improved pulmonary edema pattern. Persistent small bilateral effusions. Electronically Signed by Everett Kent MD 10/29/2018 08:52 A
--- NOTE | 2018-10-29 09:38 | IPNPDOC ---
Text Note Date of Service The patient was seen on 10/29/18. NOTE No acute events over the weekend. He is still having epigastric abd pains, ot herwise he is feeling good. VSSAF NAD abd - soft, non distended, no rebound or guarding, tender to palpation epigastric today labs - see below A) 48y/o male with complicated medical history, and a benign appearing sigmoid stricture. recent [place] CAD chronic pancreatitis acalculous cholecystitis likely secondary to the pancreatitis with cholecystostomy drain in place. P) clq diet will start laxatives and slowly attempt a bowel prep with the plan for diverting colostomy on Mon at 7:30. Cody Bedoya DO VS,Fishbone, I+O VS, Fishellise, I+O Laboratory Tests 10/29/18 04:48 Red Blood Count 3.49 L, Mean Corpuscular Volume 84.5, Mean Corpuscular Hemoglobin 26.6 L, Mean Corpuscular Hemoglobin Concent 31.5 L, Red Cell Distribution Width 16.6 H, Calcium Level 8.2 L Vital Signs Date Time Temp Pulse Resp B/P (MAP) Pulse Ox O2 Delivery O2 Flow Rate FiO2 10/29/18 09:24 72 114/78 (90) 10/29/18 08:00 99.1 17 98 10/26/18 16:00 2.0 I&O- Last 24 Hours up to 6 AM 10/29/18 05:59 Intake Total 1490 ml Output Total 2950 ml Balance -1460 ml LAVINIA BEDOYA DO Oct 29, 2018 09:29
[2018-10-29] MEDS: MULTIVITAMINS/MINERALS THERAP 1 TAB PO SCH (09:47)
[2018-10-29] MEDS: MAGNESIUM OXIDE 400 MG TAB (MAG-OX) PO SCH (09:47)
[2018-10-29] MEDS: FLUoxetine 20 MG CAP PO SCH (09:47)
[2018-10-29] MEDS ORDERED: MAGNESIUM CITRATE 300 ML BTL PO ONE (10:00)
[2018-10-29] MEDS: PANTOPRAZOLE 40MG INJ (PROTONIX) (C9113) IV SCH ×2 (10:35→20:41)
--- NOTE | 2018-10-29 15:13 | PHACANCOPD ---
PHARMACY VANCOMYCIN DOSING Pt Demographics Demographics Patient Age:48 , Weight:68.500 , Gender: male Adjusted Body Weight Date: 10/26/18, Adjusted Body Weight: [73] Kg ACTUAL WT Vancomycin Vancomycin indication: PNEUMONIA,MRSA Vancomycin Target Ranges: 15-20 mcg/ml Vancomycin Load Y/N: No Load Dose Date Time Vancomycin Load Dose: Date: Time: Vancomycin Dose Date: 10/26/18. Current Vancomycin Dose: [1 GM IV Q8H] Intermittent Dosing?: No Labs Micro Microbiology 10/29/18 MRSA Screen, Received Pending Creatinine Clearance Date:10/27/18. Creatinine Clearance: [110].CALCULATED Date:10/26/18. Creatinine Clearance: [86.9].CALCULATED Assessment and Plan Maintaining Current Dose?: No Reason for dose change: Trough too high Pharmacist Note Pharmacist Note 10/29/18: Vancomycin trough today resulted at 35.2mcg/ml. We will hold any further dosing today and schedule a random level to be drawn tomorrow with AM labs. Est t1/2=~10hrs, hermelindo=0.064. The patient has a hx of accumulating quickly, as his true clearance is not adequately reflected via estimated calculated crcl. It is projected that we will need to hold any further dosing for at least ~21 hours based on his calculated vancomycin clearance (est 10/30/18 @~1100), but we will reconfirm this using tomorrow's random level. Scr remains unchanged at 0.75 today from 0.82 yesterday. We will continue to monitor renal function and leve ls and re-dose vancomycin when deemed appropriate. Date: 10/27/18. Pharmacist note:Vancomycin trough drawn this morning@5:23 rep orted as 18.6(goal=15-20).SCR=0.82, EUYC=823.Will continue current Vanco regimen( 1 gram IV [id number])-Will continue to monitor labs Date: 10/26/18. Pharmacist note:48 YOM w/pneumonia/MRSA receiving Pip/Tazo 3.375 gm iv [id number] and Vancomycin per Pharmacy consult. Vancomycin 1 gram IV Ordered for 10/26@0600, then will continue with a Q8hour regimen. First Vancomycin trough is scheduled for 10/27@0500( prior to the 4th dose)-Will continue to follow patient DAVID OLIVAREZ PHARMACY Oct 29, 2018 15:13
[2018-10-29] MEDS ORDERED: MULTIVITAMIN -ADULT INJECTION 10 ML, CR/CU/SE/MN/ZN INJ 1 ML in AMINO AC/ELECTROLYTE/DE... IV SCH (18:00)
[2018-10-29] MEDS ORDERED: FAT EMULSION IV 20% 500 ML IV SCH (18:00)
[2018-10-30] VITALS (8 sets, daily range): BP systolic 104–131; BP diastolic 70–88
[2018-10-30] MEDS: ONDANSETRON 4MG/2ML VIAL (J2405) IV PRN ×4 (00:49→17:55)
[2018-10-30] MEDS: HYDROMORPHONE HCL 0.5 MG/ 0.5 ML SYRINGE (J1170 PER 1) IV PRN ×7 (02:59→22:17)
[2018-10-30] MEDS: METOPROLOL 5 MG/5 ML VIAL IV SCH ×6 (04:00→23:33)
[2018-10-30] MEDS: PIPERACILLIN/TAZOBACTAM SOD 3.375 GM in D5W MINI-BAG PLUS 50 ML IV SCH ×4 (05:00→22:16)
[2018-10-30] MEDS: HYDROmorphone 2 MG TAB PO SCH ×4 (05:51→23:33)
[2018-10-30] MEDS: HumaLOG INSULIN (NovoLOG) PER UNIT SC SCH ×4 (05:52→23:35)
[2018-10-30] MEDS: SODIUM CHLORIDE 0.9% INJ 10 ML SYR IV SCH ×2 (05:53→18:36)
[2018-10-30 05:59] LABS: HEMATOCRIT 32.4 % (42.0-52.0); HEMOGLOBIN 10.1 g/dl (13.5-17.5); MEAN CORPUSCULAR HEMOGLOBIN 27.4 pg (27.0-33.0); MEAN CORPUSCULAR HGB CONC 31.2 g/dl (32.0-36.5); MEAN CORPUSCULAR VOLUME 87.8 fl (80.0-96.0); PLATELET COUNT, AUTOMATED 170 10^3/uL (150-450); RED BLOOD COUNT 3.69 10^6/uL (4.30-6.10)
[2018-10-30] MEDS ORDERED: VANCOMYCIN INTERMITTENT/PULSE DOSING BY CLINICAL PHARMACIST PER DOSING PROTOCOL XX SCH (06:00)
[2018-10-30 06:20] LABS: BLOOD UREA NITROGEN 16 MG/DL (7-18); CALCIUM LEVEL 8.4 MG/DL (8.5-10.1); CARBON DIOXIDE LEVEL 24 MEQ/L (21-32); CHLORIDE LEVEL 106 MEQ/L (98-107); CREATININE FOR GFR 0.89 MG/DL (0.70-1.30); GLOMERULAR FILTRATION RATE > 60.0 (>56); GLUCOSE, FASTING 155 MG/DL (70-100); POTASSIUM SERUM 3.8 MEQ/L (3.5-5.1); SODIUM LEVEL 139 MEQ/L (136-145)
[2018-10-30] MEDS: SUCRALFATE 1 GM TAB PO SCH ×4 (07:39→19:34)
--- NOTE | 2018-10-30 08:34 | IPNPDOC ---
Text Note Date of Service The patient was seen on 10/30/18. NOTE No acute events over night. He did tolerate the mag citrate, but it took all day to get it down. VSSAF NAD abd - soft, non distended, no rebound or guarding, tender to palpation epigastric labs - see below A) 48y/o male with complicated medical history, and a benign appearing sigmoid stricture. recent [place] CAD chronic pancreatitis acalculous cholecystitis likely secondary to the pancreatitis with cholecystostomy drain in place. P) NPO after breakfast another bottle of mag citrate this am plan for robotic sigmoid colostomy tomorrow at 7:30am. Cody Bedoya DO VS,Fishbone, I+O VS, Fishbone, I+O Laboratory Tests 10/30/18 05:09 Red Blood Count 3.69 L, Mean Corpuscular Volume 87.8, Mean Corpuscular Hemoglobin 27.4, Mean Corpuscular Hemoglobin Concent 31.2 L, Red Cell Distribution Width 16.6 H, Calcium Level 8.4 L Vital Signs Date Time Temp Pulse Resp B/P (MAP) Pulse Ox O2 Delivery O2 Flow Rate FiO2 10/30/18 06:10 16 10/30/18 04:00 97.4 80 104/70 (81) 100 10/26/18 16:00 2.0 I&O- Last 24 Hours up to 6 AM 10/30/18 06:00 Intake Total 2430 ml Output Total 2315 ml Balance 115 ml LAVINIA BEDOYA DO Oct 30, 2018 08:34
[2018-10-30] MEDS ORDERED: MAGNESIUM CITRATE 300 ML BTL PO ONE (09:00)
[2018-10-30] MEDS: MAGNESIUM OXIDE 400 MG TAB (MAG-OX) PO SCH (09:00)
[2018-10-30] MEDS: FLUoxetine 20 MG CAP PO SCH (09:00)
[2018-10-30] MEDS: ROSUVASTATIN 10 MG TAB (CRESTOR) PO SCH (09:00)
[2018-10-30] MEDS: MULTIVITAMINS/MINERALS THERAP 1 TAB PO SCH (09:00)
[2018-10-30] MEDS: PANTOPRAZOLE 40MG INJ (PROTONIX) (C9113) IV SCH ×2 (09:06→19:34)
--- NOTE | 2018-10-30 09:34 | IPNPDOC ---
Subjective Date Seen The patient was seen on 10/30/18. Subjective Chief Complaint/HPI hypoxia Events since last encounter Planned diverting colostomy for tomorrow am. Constitutional: Denies: Chills, Fever, Night Sweats Pulmonary: Denies: Dyspnea, Cough Cardiovascular: Denies: Chest Pain, Palpitations, Orthopnea, Paroxysmal Noc. Dyspnea, Lt Headedness Gastrointestinal: Reports: Nausea, Abdominal Pain; Denies: Vomiting, Diarrhea, Constipation Psych: Reports: Mood Normal; Denies: Depression, Memory Issues Objective Physical Examination General Exam: Positive: Alert, No Acute Distress, Other Chest Exam: Positive: Clear to auscultation Heart Exam: Positive: Rate Normal, Regular Rhythm, Normal S1, Normal S2 Abdomen Exam: Positive: Normal bowel sounds, Soft, Tenderness Extremity Exam: Negative: Clubbing, Edema Skin Exam: Positive: Nl turgor and temperature Neuro Exam: Positive: Normal Speech Psych Exam: Positive: Other Assessment /Plan Problems (1) Chronic abdominal pain Status: Acute Problem Text: 10/30/18: planend for diverting colostomy tomorrow. 10/29/18: No bed available at [facility]; therefore, proceed with Diverting colostomy with Dr. Bedoya as scheduled for 10/31/18. 10/27- Family wanting transfer for possible evaluation by colorectal surgeon. Will call [facility] as they are familiar with patient and have colorectal surgery on site to see if they will accept. Will also try [facility] and [facility] facilities if the initial attempt fails. 1627 put out call to [facility] transfer center who attempted to connect me with hospitalist to discuss transfer. Tipping [employer] stated hospitalist busy with patient and would call back within 30 minutes. 1722- Spoke with Dr. Paulino about the patient and the potential transfer. Dr. Paulino will call colorectal surgeon to discuss case and call me back. 1799- call out to hospitalist medical secretary receptionist, last she heard Dr. Paulino was reaching out to colorectal surgeon and was unsure when he would be able to reach me. Plan was still to call me back, but unsure when. 1936- Dr. Cardoso called back to inform me he had tried the surgeon a couple times and that the surgeon was still in the OR. He will reach out once he hears back. Was unsure if bed was available and thought best bet may be to try for tomorrow morning, but that he would let the surgeon know either way. If answer is no from [facility], will reach out to other facilities tomorrow morn ing. Plan pending transfer is discussed in 10/26 note. 10/26/18: Pain persists, nausea persists. Patient is receiving Zofran IV. He has declined compazine prn for his nausea. Plan for sigmoid colectomy unchanged- Mon vs 10/29 vs 10/31 P OR schedule. Cardiology provided surgical clearance. Recommendation is to hold Amiodarone, ASA and Plavix for now. I will stop those medications today and we will need to reassess post-operatively. Also, given patient is unable to tolerate PO meds, the recommendation was to start Metoprolol 5 mg q 6 hs IV with holding parameter for systolic BP <120. Medication was changed this morning. PPI changed to Pantoprazole 40mg IV BID mainly right-midline lower quadrant-constant c nausea/anorexia, favor 2 stricture 2 colitis (inflammatory vs ischemic) vs malignant 10/25/18: Patient continues to use PRN Dilaudid. He has refused all oral medications. I will defer changing his cardiac meds to from po to IV to Cardiology. Case dw Dr. Garcia-patient cleared for sigmoid colectomy-plan for Mon vs 10/29 vs 10/31 P OR schedule (defer cholecystectomy for future date given high surgical risk at this time) Sigmoidoscopy Findings: A severe stenosis measuring of unknown length x 4 mm (inner diameter) was found at 30 cm proximal to the anus and was non-traversed. 10/23/18: appreciate GI input-planning sigmoid given worse by CT and main source of pain and PICC placed to provide nutrition and pancreatic rest Patient with nausea and vomiting this morning. He was unable to take pain med po. K+ 5.2. Patient was changed to NPO. IV fluids changed to D5 1/2 NS at 60/hr. Hydromorphone 0.6mg IV q 3 hours prn pain only if unable to take PO med. 10/22/18 case tom Vasquez for opinion +/- colonoscopy/biopsy 10/21/18: CT AP: 1. A catheter is present in the gallbladder. 2. There is increased density in the pancreatic region likely representing edema and residual fluid collections. There is no definite new fluid collection. 3. There is thickening of a wall of a small segment of sigmoid colon with surrounding edema that may represent inflammatory bowel disease. 4. There is a small amount of free fluid in the abdomen. Electronically Signed by David Joel MD 10/21/2018 02:49 P DD: David Joel MD 10/21/18 1313 DT: KAYKAY 10/21/18 1350 DS: BEA 10/21/18 1449 10/21/18 1449 [~ rep ct labl] (2) Pneumonia Status: Acute Response to Treatment: Stable Problem Text: D3 Vancomycin and Zosyn (vanco held) 10/29/18: more cw improved CHF Chest X-ray: Pulmonary edema pattern bilaterally. Cardiomegaly with pacemaker. Small amounts of bilateral pleural fluid. CHF pattern 10/26/18 + Zosyn/vanco for ? PN, WBC 14.4; although no cough/F/C/hypoxia-? WBC related to colitis vs pancreatitis (3) Systolic and diastolic CHF, acute on chronic Status: Chronic Problem Text: 10/26/18: Patient well compensated this morning. This morning patient had a chest x-ray d/t some chest discomfort. Patient's preliminary chest x-ray appeared to show a right lower lobe pneumonia with increased cephalization of pulmonary vasculature secondary to volume overload and pulmonary edema. Chest xray report deomonstrated Pulmonary edema pattern bilaterally. Cardiomegaly with pacemaker. Small amounts of bilateral pleural fluid. CHF pattern: He was given a one time dose of 40 mg of Lasix IV. IVF were discontinued. Patient was placed on abx to cover for pneumonia. We will continue to monitor 10/25/18: Patient appears well compensated on exam 10/23/18: IVF changed and rate decreased. Patient appears euvolemic on exam Echo 09/03/18: EF 30% Normal sinus rhythm with dual-chamber pacemaker. Appropriate atrial sensing and tracking with consistent ventricular paced. Paced QRS complexes with left bundle branch block QRS configuration. M-mode and two-dimensional echocardiography was performed with pulsed, continuous wave, color flow and tissue Doppler studies. Moderately dilated left ventricle with borderline hypertrophy. Paradoxical septal wall motion and apical akinesis related to right ventricular paced rhythm. Moderate to moderately severe impairment of global resting systolic function. Mildly dilated left atrium with impairment of LV diastolic function and elevated mean left atrial pressure. Right heart chamber sizes upper limits of normal with right ventricular hypokinesis and Doppler evidence of moderate pulmonary hypertension. Mildly dilated IVC with slightly reduced respiratory collapse suggestive of central venous pressure of approximately 10 - 15 mmHg. Slight aortic valvular sclerosis with adequate cusp separation but premature cusp closure in keeping with reduced forward stroke volume. WILL NEED MONITORING ON i/O DUE TO HX OF CHF (4) Pancreatitis Permanent Comment: ? etiology-favor hyperTG (08/09/18 TG 506), +/- gliptin use (was on stevo) 10/23/18 CA-19-9 24 10/23/1808/10/18 lipase 820 Last Edited By: Hari Hoang MD on Oct 23, 2018 17:54 Status: Acute Problem Text: as per abdominal pain ? etiology-favor hyperTG (08/09/18 TG 506), +/- gliptin use (was on stevo) 10/23/18 CA-19-9 24 10/23/18 24 08/10/18 lipase 820 (5) CAD (coronary artery disease) Status: Chronic Problem Text: No active symptoms (6) Depression Status: Chronic (7) DM2 (diabetes mellitus, type 2) Status: Chronic Problem Text: 10/25/18: We are starting TPN with finger sticks q 6 hrs and sliding scale coverage per protocol Metformin on hold. hypoglycemic this am. poor po intake. monitor glucose levels. add in D5 to IVF if hypoglycemia returns/persists. (8) Malnutrition Status: Chronic Problem Text: 10/26/18: TPN 10/25/18: TPN ordered today. We will monitor BGs per protocol 10/24 -- PICC line in place, should initiate TPN tomorrow. Nutritional assessment has been in the chart, but does not make recommendations re: TPN, and a formal consult for TPN recommendations was ordered. Plan/VTE VTE Prophylaxis Ordered?: Yes (Plavix) VS, I&O, 24H, Fishbone Vital Signs/I&O Vital Signs Date Time Temp Pulse Resp B/P (MAP) Pulse Ox O2 Delivery O2 Flow Rate FiO2 10/30/18 09:07 20 10/30/18 08:00 97.6 80 116/78 (91) 99 10/26/18 16:00 2.0 I&O- Last 24 Hours up to 6 AM 10/30/18 06:00 Intake Total 2430 ml Output Total 2315 ml Balance 115 ml Laboratory Data 24H LABS Laboratory Tests 2 10/29/18 11:32: Bedside Glucose (Misc Panel) 156H 10/29/18 13:00: Vancomycin Level Trough 35.2*H 10/29/18 17:41: Bedside Glucose (Misc Panel) 172H 10/30/18 05:09: Nucleated Red Blood Cells % (auto) 0.0, Anion Gap 9, Glomerular Filtration Rate > 60.0, Blood Urea Nitrogen 16, Creatinine 0.89, Sodium Level 139, Potassium Level 3.8, Chloride Level 106, Carbon Dioxide Level 24, Calcium Level 8.4L 10/30/18 05:51: Bedside Glucose (Misc Panel) 158H CBC/BMP Laboratory Tests 10/30/18 05:09 Red Blood Count 3.69 L, Mean Corpuscular Volume 87.8, Mean Corpuscular Hemoglobin 27.4, Mean Corpuscular Hemoglobin Concent 31.2 L, Red Cell Distribution Width 16.6 H, Calcium Level 8.4 L Microbiology Microbiology 10/29/18 MRSA Screen, Received Pending Cynthia Singer [facility] Oct 30, 2018 09:34
[2018-10-30] MEDS: SODIUM CHLORIDE 0.9% INJ 10 ML SYR IV PRN (15:49)
[2018-10-30] MEDS ORDERED: FAT EMULSION IV 20% 500 ML IV SCH (18:00)
[2018-10-30] MEDS ORDERED: AMINO AC/ELECTROLYTE/DEX/CALC 2,000 ML IV SCH (18:00)
[2018-10-31] VITALS (11 sets, daily range): BP systolic 109–144; BP diastolic 67–96
[2018-10-31] MEDS: HYDROMORPHONE HCL 0.5 MG/ 0.5 ML SYRINGE (J1170 PER 1) IV PRN ×5 (01:33→19:59)
[2018-10-31] MEDS: PIPERACILLIN/TAZOBACTAM SOD 3.375 GM in D5W MINI-BAG PLUS 50 ML IV SCH ×4 (04:35→22:57)
[2018-10-31] MEDS: HYDROmorphone 2 MG TAB PO SCH ×4 (04:36→23:58)
[2018-10-31] MEDS: METOPROLOL 5 MG/5 ML VIAL IV SCH ×6 (04:36→23:58)
[2018-10-31 05:37] LABS: HEMOGLOBIN 9.6 g/dl (13.5-17.5); MEAN CORPUSCULAR VOLUME 87.1 fl (80.0-96.0); PLATELET COUNT, AUTOMATED 143 10^3/uL (150-450); RED BLOOD COUNT 3.56 10^6/uL (4.30-6.10); WHITE BLOOD COUNT 7.2 10^3/uL (4.0-10.0)
[2018-10-31] MEDS: SODIUM CHLORIDE 0.9% INJ 10 ML SYR IV SCH ×2 (05:49→18:30)
[2018-10-31] MEDS: HumaLOG INSULIN (NovoLOG) PER UNIT SC SCH ×4 (06:00→23:57)
[2018-10-31 06:02] LABS: BLOOD UREA NITROGEN 17 MG/DL (7-18); CALCIUM LEVEL 8.4 MG/DL (8.5-10.1); CARBON DIOXIDE LEVEL 24 MEQ/L (21-32); CHLORIDE LEVEL 108 MEQ/L (98-107); CREATININE FOR GFR 0.88 MG/DL (0.70-1.30); GLOMERULAR FILTRATION RATE > 60.0 (>56); GLUCOSE, FASTING 192 MG/DL (70-100); POTASSIUM SERUM 3.9 MEQ/L (3.5-5.1); SODIUM LEVEL 138 MEQ/L (136-145)
[2018-10-31] MEDS ORDERED: BUPIVACAINE/EPIN 0.25% 30 ML VIAL As Ordered ONE (06:37)
--- NOTE | 2018-10-31 07:06 | IPNPDOC ---
Text Note Date of Service The patient was seen on 10/31/18. NOTE No acute events overnight. Plan is for OR this am. No changes to H+P. VSSAF NAD abd - soft, non distended, no rebound or guarding, tender to palpation epigastric labs - see below A) 48y/o male with complicated medical history, and a benign appearing sigmoid stricture. recent PA CAD chronic pancreatitis acalculous cholecystitis likely secondary to the pancreatitis with cholecystostomy drain in place. P) NPO OR this am for diverting colostomy due to sigmoid stricture. Cody Bedoya DO VS,Kami, I+O VS, Kami, I+O Laboratory Tests 10/31/18 05:26 Red Blood Count 3.56 L, Mean Corpuscular Volume 87.1, Mean Corpuscular Hemoglobin 27.0, Mean Corpuscular Hemoglobin Concent 31.0 L, Red Cell Distribution Width 16.6 H, Calcium Level 8.4 L Vital Signs Date Time Temp Pulse Resp B/P (MAP) Pulse Ox O2 Delivery O2 Flow Rate FiO2 10/31/18 05:26 18 10/31/18 04:36 88 129/80 10/31/18 04:00 99.4 96 2.0 I&O- Last 24 Hours up to 6 AM 10/31/18 05:59 Intake Total 1170 ml Output Total 2525 ml Balance -1355 ml LAVINIA BEDOYA DO Oct 31, 2018 07:06
[2018-10-31] MEDS: SUCRALFATE 1 GM TAB PO SCH ×4 (07:30→19:58)
[2018-10-31] MEDS ORDERED: PHENYLEPHRINE INJ 10MG/ML VIAL (J2370) As Ordered ONE (08:02)
[2018-10-31] MEDS ORDERED: ROCURONIUM BROMIDE 50 MG/5 ML VIAL As Ordered ONE (09:00)
[2018-10-31] MEDS: FLUoxetine 20 MG CAP PO SCH (09:00)
[2018-10-31] MEDS ORDERED: PROPOFOL 200 MG/20 ML VIAL As Ordered ONE (09:00)
[2018-10-31] MEDS ORDERED: LIDOCAINE 2% INJ 100 MG/5 ML SDV (FOR ANES.) As Ordered ONE (09:00)
[2018-10-31] MEDS: PANTOPRAZOLE 40MG INJ (PROTONIX) (C9113) IV SCH ×2 (09:00→19:59)
[2018-10-31] MEDS: MULTIVITAMINS/MINERALS THERAP 1 TAB PO SCH (09:00)
[2018-10-31] MEDS: ROSUVASTATIN 10 MG TAB (CRESTOR) PO SCH (09:00)
[2018-10-31] MEDS: MAGNESIUM OXIDE 400 MG TAB (MAG-OX) PO SCH (09:00)
[2018-10-31] MEDS ORDERED: dexameTHASONE 4 MG/ML 1ML VIAL (J1100) As Ordered ONE (09:01)
[2018-10-31] MEDS ORDERED: GLYCOPYRROLATE INJ 0.2 MG/ML 2 ML VIAL As Ordered ONE (09:01)
[2018-10-31] MEDS ORDERED: ONDANSETRON 4MG/2ML VIAL (J2405) As Ordered ONE (09:01)
[2018-10-31] MEDS ORDERED: SUGAMMADEX SODIUM 500 MG/5 ML VIAL (BRIDION) As Ordered ONE (09:01)
[2018-10-31] MEDS ORDERED: fentaNYL 250 MCG/5 ML INJECTION (J3010) As Ordered ONE (09:02)
[2018-10-31] MEDS ORDERED: MIDAZOLAM INJ 5 MG/ML VIAL (J2250) As Ordered ONE (09:02)
[2018-10-31] MEDS ORDERED: KETAMINE HCL 200 MG/20 ML VIAL As Ordered ONE (09:02)
[2018-10-31] MEDS ORDERED: PHENYLephrine HCL 500 MCG/5 ML (100MCG/ML) SYRINGE (J2370) As Ordered ONE (09:03)
[2018-10-31] MEDS ORDERED: METOPROLOL 5 MG/5 ML VIAL As Ordered ONE (09:22)
[2018-10-31] MEDS ORDERED: fentaNYL 100 MCG/2 ML INJECTION (J3010) As Ordered ONE (10:46)
[2018-10-31] MEDS ORDERED: LR 1,000 ML IV SCH (12:00)
[2018-10-31] MEDS ORDERED: fentaNYL 100 MCG/2 ML INJECTION (J3010) IV PRN (12:00)
[2018-10-31] MEDS ORDERED: HYDROMORPHONE HCL 0.5 MG/ 0.5 ML SYRINGE (J1170 PER 1) IV PRN (12:00)
[2018-10-31] MEDS ORDERED: NORCO, ANEXSIA 5/325MG TABLET (HYDROcodone/ACETAMINOPHEN) PO PRN (12:00)
[2018-10-31] MEDS ORDERED: FAT EMULSION IV 20% 500 ML IV SCH (18:00)
[2018-10-31] MEDS ORDERED: AMINO AC/ELECTROLYTE/DEX/CALC 2,000 ML IV SCH (18:00)
[2018-10-31] MEDS: ONDANSETRON 4MG/2ML VIAL (J2405) IV PRN ×2 (18:34→22:00)
[2018-11-01] VITALS: BP 123/82
[2018-11-01] MEDS: HYDROMORPHONE HCL 0.5 MG/ 0.5 ML SYRINGE (J1170 PER 1) IV PRN ×8 (02:01→23:57)
[2018-11-01 04:00] VITALS: BP 115/68
[2018-11-01] MEDS: METOPROLOL 5 MG/5 ML VIAL IV SCH ×4 (04:00→16:00)
[2018-11-01] MEDS: SODIUM CHLORIDE 0.9% INJ 10 ML SYR IV SCH ×2 (05:04→18:35)
[2018-11-01] MEDS: PIPERACILLIN/TAZOBACTAM SOD 3.375 GM in D5W MINI-BAG PLUS 50 ML IV SCH (05:05)
[2018-11-01] MEDS: HYDROmorphone 2 MG TAB PO SCH ×4 (05:05→23:57)
[2018-11-01] MEDS: HumaLOG INSULIN (NovoLOG) PER UNIT SC SCH ×3 (05:08→18:34)
[2018-11-01 06:08] LABS: HEMATOCRIT 28.3 % (42.0-52.0); HEMOGLOBIN 8.8 g/dl (13.5-17.5); MEAN CORPUSCULAR HEMOGLOBIN 26.8 pg (27.0-33.0); MEAN CORPUSCULAR HGB CONC 31.1 g/dl (32.0-36.5); MEAN CORPUSCULAR VOLUME 86.3 fl (80.0-96.0); PLATELET COUNT, AUTOMATED 158 10^3/uL (150-450); RED BLOOD COUNT 3.28 10^6/uL (4.30-6.10); WHITE BLOOD COUNT 9.4 10^3/uL (4.0-10.0)
[2018-11-01 06:25] LABS: BLOOD UREA NITROGEN 21 MG/DL (7-18); CALCIUM LEVEL 8.4 MG/DL (8.5-10.1); CARBON DIOXIDE LEVEL 22 MEQ/L (21-32); CHLORIDE LEVEL 106 MEQ/L (98-107); CREATININE FOR GFR 0.82 MG/DL (0.70-1.30); GLOMERULAR FILTRATION RATE > 60.0 (>56); GLUCOSE, FASTING 234 MG/DL (70-100); SODIUM LEVEL 138 MEQ/L (136-145)
[2018-11-01] MEDS: SUCRALFATE 1 GM TAB PO SCH ×4 (07:30→21:00)
[2018-11-01 08:00] VITALS: BP 123/80
--- NOTE | 2018-11-01 08:09 | IPNPDOC ---
Text Note Date of Service The patient was seen on 11/01/18. NOTE No acute events overnight. His only complaint this am is epigastric pains and nausea with any attempt at PO intake. These symptoms are the same as they were pre-op. Incisional pain is minimal, and no problems with abd distention. VSSAF NAD abd - soft, non distended, no rebound or guarding, tender to palpation epigastric only, ostomy is pink with sweat in the bag and some clots around the ostomy. labs - see below A) 48y/o male with complicated medical history, and a benign appearing sigmoid stricture s/p RA sigmoidectomy with end colostomy recent [place] CAD chronic pancreatitis acalculous cholecystitis likely secondary to the pancreatitis with cholecystostomy drain in place. P) clq diet as tolerated monitor ostomy output and labs clotting around the ostomy is just from some minor oozing, and will stop, will transfuse if needed. Cody Bedoya DO VS,Fishbone, I+O VS, Fishbone, I+O Laboratory Tests 11/01/18 05:23 Red Blood Count 3.28 L, Mean Corpuscular Volume 86.3, Mean Corpuscular Hemoglobin 26.8 L, Mean Corpuscular Hemoglobin Concent 31.1 L, Red Cell Distribution Width 16.7 H, Calcium Level 8.4 L Vital Signs Date Time Temp Pulse Resp B/P (MAP) Pulse Ox O2 Delivery O2 Flow Rate FiO2 11/01/18 05:28 18 11/01/18 04:00 97.0 86 115/68 (84) 96 10/31/18 13:30 2.0 I&O- Last 24 Hours up to 6 AM 11/01/18 06:00 Intake Total 3400 ml Output Total 1780 ml Balance 1620 ml LAVINIA BEDOYA DO Nov 01, 2018 08:09
[2018-11-01] MEDS: PANTOPRAZOLE 40MG INJ (PROTONIX) (C9113) IV SCH ×2 (09:00→21:00)
[2018-11-01] MEDS: MAGNESIUM OXIDE 400 MG TAB (MAG-OX) PO SCH (09:00)
[2018-11-01] MEDS: FLUoxetine 20 MG CAP PO SCH (09:00)
[2018-11-01] MEDS: ROSUVASTATIN 10 MG TAB (CRESTOR) PO SCH (09:00)
[2018-11-01] MEDS: MULTIVITAMINS/MINERALS THERAP 1 TAB PO SCH (09:00)
--- NOTE | 2018-11-01 09:12 | RO ---
DATE OF PROCEDURE: 10/31/2018 PREOPERATIVE DIAGNOSIS: Sigmoid stricture. POSTOPERATIVE DIAGNOSIS: Sigmoid stricture. PROCEDURE: Robotic-assisted sigmoid colectomy with end sigmoid colostomy. SURGEON: Jude Bedoya DO SEARCH ENGINE MARKETING STRATEGIST: ROB Krause ANESTHESIA: General ESTIMATED BLOOD LOSS (EBL): 20. COMPLICATIONS: None. INDICATION FOR PROCEDURE: The patient is a 48-year-old male, status post myocardial infarction (PA) back in July, likely developed an ischemic stricture in the sigmoid colon secondary to that event. He had a colonoscopy last week that showed a pinpoint stricture. Dr. Vasquez was unable to pass it. Recommendation was for sigmoid colectomy due to his fragile cardiac disease. Recommendation was to proceed with the most limited procedure as possible for now. Therefore, we decided to go with a removal of the stricture with just an end colostomy. Risks and benefits of the procedure not limited but including bleeding, infection, hernia formation, damage to surrounding structures, need for further surgery were discussed in detail with the patient. Informed consent was obtained, and the procedure was planned. DESCRIPTION OF PROCEDURE: The patient brought back to operating room #7 after sufficient sedation, and the abdomen was sterilely prepped and draped. A Sahni catheter was placed. Next, time-out was done. A stab incision made in the left upper quadrant, Veress needle was inserted, and the abdomen was insufflated to 15 mmHg. Next, an 8-mm incision was made superior and to the right of the umbilicus. An 8-mm robotic port was then placed with an Optiview camera. Once the abdomen was entered, Veress needle site was examined, and there were no signs of any injury. Veress needle was removed. Another 8-mm port was placed subxiphoid, an 8-mm port in the right lower quadrant, and a 12-mm port in the right lower quadrant just above the hip. Next, the robot was connected to all the ports. Next, from the console, I was able to mobilize a portion the omentum out of the pelvis. It was densely adhered to a portion of the sigmoid, likely corresponding to the area of the stricture. This was carefully taken down using sharp dissection. Once this was all completed and the omentum was completely reduced, there was a sharp eschar in the sigmoid at the pelvic brim. This was carefully straightened out. Lateral peritoneal adhesions to the colon were taken down using sharp dissection. Then, the colon was elevated in the air. The mesocolon was carefully dissected through using cautery. Once I was able to dissect completely through at the rectosigmoid junction, I used the 45-mm stapler with a green load and fired two anil across to transect the rectosigmoid junction. Next, holding the colon in the air, I carefully dissected through the mesocolon proximally to the proximal sigmoid using vessel sealer and Metzenbaum scissors. Once that was completed, I corresponded to a location on the skin that I had marked previously. Then, we desufflated the abdomen, using cautery to cut a jamul in the skin from the outside to go out the skin, the subcutaneous tissue and fat to the level the fascia, incised the fascia, the muscles, incised the peritoneum, and then grabbed onto the specimen with a Filipe, and brought it through the abdominal wall. Once that was done, a 19-Sudanese Eduar drain was placed down inside the pelvis, brought out through the right-sided port site. The rest of the ports were all removed. The sigmoid was transected at the level of the skin. The ostomy was then matured using 3-0 Vicryl interrupted sutures. Ostomy appliance was placed. The 2-0 silks were used to hold the drain in place. The other the skin incisions were closed with anil. The abdomen was then cleaned and dried and dressing was applied, thus ending the procedure.
[2018-11-01] MEDS: ONDANSETRON 4MG/2ML VIAL (J2405) IV PRN ×3 (09:42→22:15)
--- NOTE | 2018-11-01 09:48 | IPNPDOC ---
Subjective Date Seen The patient was seen on 11/01/18. Subjective Chief Complaint/HPI abdominal pain Events since last encounter POD #1 from diverting colostomy. Patient c/o increase nausea. refusing to try clears. Continues with c/o pain and refusing to get OOB. Constitutional: Denies: Chills, Fever, Night Sweats Pulmonary: Denies: Dyspnea, Cough Cardiovascular: Denies: Chest Pain, Palpitations, Orthopnea, Paroxysmal Noc. Dyspnea, Lt Headedness Gastrointestinal: Reports: Nausea, Abdominal Pain, Other Symptoms (ostomy); Denies: Vomiting, Diarrhea, Constipation Objective Physical Examination General Exam: Positive: Alert, No Acute Distress, Other Chest Exam: Positive: Clear to auscultation Heart Exam: Positive: Rate Normal, Regular Rhythm, Normal S1, Normal S2 Abdomen Exam: Positive: Normal bowel sounds, Soft, Tenderness (throughout), Other (ostomy with air. some clotting surrounding stoma. ) Extremity Exam: Negative: Clubbing, Edema Skin Exam: Positive: Nl turgor and temperature Neuro Exam: Positive: Normal Speech Psych Exam: Positive: Other Assessment /Plan Problems (1) Chronic abdominal pain Status: Acute Problem Text: 11/01/18: s/p diverting colostomy. Patient with nausea. Encouraged to get OOB and try some sips of clears. Prn medication available. 10/30/18: planned for diverting colostomy tomorrow. 10/29/18: No bed available at [facility]; therefore, proceed with Diverting colostomy with Dr. Bedoya as scheduled for 10/31/18. 10/27- Family wanting transfer for possible evaluation by colorectal surgeon. Will call [facility] as they are familiar with patient and have colorectal surgery on site to see if they will accept. Will also try [facility] and [facility] facilities if the initial attempt fails. 162 put out call to [facility] transfer center who attempted to connect me with hospitalist to discuss transfer. Information Services Manager stated hospitalist busy with patient and would call back within 30 minutes. 172- Spoke with Dr. Paulino about the patient and the potential transfer. Dr. Paulino will call colorectal surgeon to discuss case and call me back. 1800- call out to hospitalist admin secretary, last she heard Dr. Paulino was reaching out to colorectal surgeon and was unsure when he would be able to reach me. Plan was still to call me back, but unsure when. 1936- Dr. Cardoso called back to inform me he had tried the surgeon a couple times and that the surgeon was still in the OR. He will reach out once he hears back. Was unsure if bed was available and thought best bet may be to try for tomorrow morning, but that he would let the surgeon know either way. If answer is no from [facility], will reach out to other facilities tomorrow morning. Plan pending transfer is discussed in 10/26 note. 10/26/18: Pain persists, nausea persists. Patient is receiving Zofran IV. He has declined compazine prn for his nausea. Plan for sigmoid colectomy unchanged- Mon vs 10/29 vs 10/31 P OR schedule. Cardiology provided surgical clearance. Recommendation is to hold Amiodarone, ASA and Plavix for now. I will stop those medications today and we will need to reassess post-operatively. Also, given patient is unable to tolerate PO meds, the recommendation was to start Metop rolol 5 mg q 6 hs IV with holding parameter for systolic BP <120. Medication was changed this morning. PPI changed to Pantoprazole 40mg IV BID mainly right-midline lower quadrant-constant c nausea/anorexia, favor 2 stricture 2 colitis (inflammatory vs ischemic) vs malignant 10/25/18: Patient continues to use PRN Dilaudid. He has refused all oral medications. I will defer changing his cardiac meds to from po to IV to Cardiology. Case dw Dr. Garcia-patient cleared for sigmoid colec britt-plan for Mon vs 10/29 vs 10/31 P OR schedule (defer cholecystectomy for future date given high surgical risk at this time) Sigmoidoscopy Findings: A severe stenosis measuring of unknown length x 4 mm (inner diameter) was found at 30 cm proximal to the anus and was non-traversed. 10/23/18: appreciate GI input-planning sigmoid given worse by CT and main source of pain and PICC placed to provide nutrition and pancreatic rest Patient with nausea and vomiting this morning. He was unable to take pain med po. K+ 5.2. Patient was changed to NPO. IV fluids changed to D5 1/2 NS at 60/hr. Hydromorphone 0.6mg IV q 3 hours prn pain only if unable to take PO med. 10/22/[address] Vasquez for opinion +/- colonoscopy/biopsy 10/21/18: CT AP: 1. A catheter is present in the gallbladder. 2. There is increased density in the pancreatic region likely representing edema and residual fluid collections. There is no definite new fluid collection. 3. There is thickening of a wall of a small segment of sigmoid colon with surrounding edema that may represent inflammatory bowel disease. 4. There is a small amount of free fluid in the abdomen. Electronically Signed by David Joel MD 10/21/2018 02:49 P DD: David Joel MD 10/21/18 1313 DT: KAYKAY 10/21/18 1350 DS: BEA 10/21/18 1449 10/21/18 1449 [~ rep ct labl] (2) Pneumonia Status: Acute Response to Treatment: Stable Problem Text: D3 Vancomycin and Zosyn (vanco held) 10/29/18: more cw improved CHF Chest X-ray: Pulmonary edema pattern bilaterally. Cardiomegaly with pacemaker. Small amounts of bilateral pleural fluid. CHF pattern 10/26/18 + Zosyn/vanco for ? PN, WBC 14.4; although no cough/F/C/hypoxia-? WBC related to colitis vs pancreatitis (3) Systolic and diastolic CHF, acute on chronic Status: Chronic Problem Text: 11/01/18: appears well compensated. 10/26/18: Patient well compensated this morning. This morning patient had a chest x-ray d/t some chest discomfort. Patient's preliminary chest x-ray appeared to show a right lower lobe pneumonia with increased cephalization of pulmonary vasculature secondary to volume overload and pulmonary edema. Chest xray report deomonstrated Pulmonary edema pattern bilaterally. Cardiomegaly with pacemaker. Small amounts of bilateral pleural fluid. CHF pattern: He was given a one time dose of 40 mg of Lasix IV. IVF were discontinued. Patient was placed on abx to cover for pneumonia. We will continue to monitor 10/25/18: Patient appears well compensated on exam 10/23/18: IVF changed and rate decreased. Patient appears euvolemic on exam Echo 09/03/18: EF 30% Normal sinus rhythm with dual-chamber pacemaker. Appropriate atrial sensing and tracking with consistent ventricular paced. Paced QRS complexes with left bundle branch block QRS configuration. M-mode and two-dimensional echocardiography was performed with pulsed, continuous wave, color flow and tissue Doppler studies. Moderately dilated left ventricle with borderline hypertrophy. Paradoxical septal wall motion and apical akinesis related to right ventricular paced rhythm. Moderate to moderately severe impairment of global resting systolic function. Mildly dilated left atrium with impairment of LV diastolic function and elevated mean left atrial pressure. Right heart chamber sizes upper limits of normal with right ventricular hypokinesis and Doppler evidence of moderate pulmonary hypertension. Mildly dilated IVC with slightly reduced respiratory collapse suggestive of central venous pressure of approximately 10 - 15 mmHg. Slight aortic valvular sclerosis with adequate cusp separation but premature cusp closure in keeping with reduced forward stroke volume. WILL NEED MONITORING ON i/O DUE TO HX OF CHF (4) Pancreatitis Permanent Comment: ? etiology-favor hyperTG (08/09/18 TG 506), +/- gliptin use (was on stevo) 10/23/18 CA-19-9 24 10/23/18 24 08/10/18 lipase 820 Last Edited By: Hari Hoang MD on Oct 23, 2018 17:54 Status: Acute Problem Text: as per abdominal pain ? etiology-favor hyperTG (08/09/18 TG 506), +/- gliptin use (was on stevo) 10/23/18 CA-19-9 24 10/23/18 24 08/10/18 lipase 820 (5) CAD (coronary artery disease) Status: Chronic Problem Text: No active symptoms (6) Depression Status: Chronic (7) DM2 (diabetes mellitus, type 2) Status: Chronic Problem Text: 10/25/18: We are starting TPN with finger sticks q 6 hrs and sliding scale coverage per protocol Metformin on hold. hypoglycemic this am. poor po intake. monitor glucose levels. add in D5 to IVF if hypoglycemia returns/persists. (8) Malnutrition Status: Chronic Problem Text: 10/26/18: TPN 10/25/18: TPN ordered today. We will monitor BGs per protocol 10/24 -- PICC line in place, should initiate TPN tomorrow. Nutritional assessment has been in the chart, but does not make recommendations re: TPN, and a formal consult for TPN recommendations was ordered. Plan/VTE VTE Prophylaxis Ordered?: Yes (Plavix) VS, I&O, 24H, [facility] Vital Signs/I&O Vital Signs Date Time Temp Pulse Resp B/P (MAP) Pulse Ox O2 Delivery O2 Flow Rate FiO2 11/01/18 08:58 90 123/80 11/01/18 08:04 18 11/01/18 08:00 97.8 94 10/31/18 13:30 2.0 I&O- Last 24 Hours up to 6 AM 11/01/18 06:00 Intake Total 3400 ml Output Total 1780 ml Balance 1620 ml Laboratory Data 24H LABS Laboratory Tests 2 10/31/18 09:59: Bedside Glucose (Misc Panel) 180H 10/31/18 10:44: Bedside Glucose (Misc Panel) 147H 10/31/18 11:21: Bedside Glucose (Misc Panel) 134H 10/31/18 14:19: Bedside Glucose (Misc Panel) 195H 10/31/18 17:30: Bedside Glucose (Misc Panel) 248H 10/31/18 23:49: Bedside Glucose (Misc Panel) 244H 11/01/18 05:08: Bedside Glucose (Misc Panel) 209H 11/01/18 05:23: Nucleated Red Blood Cells % (auto) 0.0, Anion Gap 10, Glomerular Filtration Rate > 60.0, Blood Urea Nitrogen 21H, Creatinine 0.82, Sodium Level 138, Potassium Level 4.0, Chloride Level 106, Carbon Dioxide Level 22, Calcium Level 8.4L CBC/BMP Laboratory Tests 11/01/18 05:23 Red Blood Count 3.28 L, Mean Corpuscular Volume 86.3, Mean Corpuscular H emoglobin 26.8 L, Mean Corpuscular Hemoglobin Concent 31.1 L, Red Cell Distribution Width 16.7 H, Calcium Level 8.4 L Microbiology Microbiology 10/29/18 MRSA Screen - Final, Complete Staph.aureus Methicillin Resis Cynthia Singer POUCH MAKER Nov 01, 2018 09:48
[2018-11-01 12:00] VITALS: BP 110/73
[2018-11-01 16:00] VITALS: BP 117/77
[2018-11-01] MEDS ORDERED: AMINO AC/ELECTROLYTE/DEX/CALC 2,000 ML IV SCH (18:00)
[2018-11-01] MEDS ORDERED: FAT EMULSION IV 20% 500 ML IV SCH (18:00)
[2018-11-01 20:00] VITALS: BP 131/84
[2018-11-01] MEDS: CARVedilol 6.25 MG TAB PO SCH (21:00)
[2018-11-02] VITALS (7 sets, daily range): BP systolic 118–139; BP diastolic 76–94
[2018-11-02] MEDS: HumaLOG INSULIN (NovoLOG) PER UNIT SC SCH ×5 (01:19→23:18)
[2018-11-02] MEDS: ONDANSETRON 4MG/2ML VIAL (J2405) IV PRN ×4 (02:33→21:06)
[2018-11-02] MEDS: HYDROMORPHONE HCL 0.5 MG/ 0.5 ML SYRINGE (J1170 PER 1) IV PRN ×4 (03:08→16:29)
[2018-11-02 05:50] LABS: HEMATOCRIT 28.2 % (42.0-52.0); HEMOGLOBIN 8.7 g/dl (13.5-17.5); MEAN CORPUSCULAR HEMOGLOBIN 26.2 pg (27.0-33.0); MEAN CORPUSCULAR HGB CONC 30.9 g/dl (32.0-36.5); MEAN CORPUSCULAR VOLUME 84.9 fl (80.0-96.0); PLATELET COUNT, AUTOMATED 152 10^3/uL (150-450); RED BLOOD COUNT 3.32 10^6/uL (4.30-6.10)
[2018-11-02] MEDS: HYDROmorphone 2 MG TAB PO SCH ×5 (06:00→23:21)
[2018-11-02 06:08] LABS: BLOOD UREA NITROGEN 20 MG/DL (7-18); CALCIUM LEVEL 8.8 MG/DL (8.5-10.1); CARBON DIOXIDE LEVEL 23 MEQ/L (21-32); CHLORIDE LEVEL 106 MEQ/L (98-107); CREATININE FOR GFR 0.67 MG/DL (0.70-1.30); GLOMERULAR FILTRATION RATE > 60.0 (>56); GLUCOSE, FASTING 174 MG/DL (70-100); POTASSIUM SERUM 4.1 MEQ/L (3.5-5.1); SODIUM LEVEL 137 MEQ/L (136-145)
[2018-11-02] MEDS: SODIUM CHLORIDE 0.9% INJ 10 ML SYR IV SCH ×2 (06:22→18:39)
[2018-11-02] MEDS: SUCRALFATE 1 GM TAB PO SCH ×4 (07:30→21:06)
--- NOTE | 2018-11-02 08:32 | IPNPDOC ---
Subjective Date Seen The patient was seen on 11/02/18. Subjective Chief Complaint/HPI Continues to c/o severe abd pain. Dilaudid not controlling his pain long enough. Has a productive cough, but pain limiting his ability to raise sputum adequately. No SOB or CP. Blood coming from ostomy since last pm Constitutional: Denies: Chills, Fever Pulmonary: Reports: Cough; Denies: Dyspnea Cardiovascular: Denies: Chest Pain Gastrointestinal: Reports: Nausea, Abdominal Pain, Other Symptoms (blood from ostomy); Denies: Vomiting, Diarrhea, Constipation Objective Physical Examination General Exam: Positive: Other (Wakes to verbal stimuli, but fell back to sleep. C/O pain when awake) Chest Exam: Positive: Normal air movement, Rhonchi (few Bilateral); Negative: Wheezing Heart Exam: Positive: Rate Normal, Regular Rhythm, Normal S1, Normal S2 Abdomen Exam: Positive: Other (Ostomy with bloody clots. drain in place empty but scant left over blood. Tender diffusely) Extremity Exam: Positive: Edema (trace - 1+ ankle edema) Assessment /Plan Problems (1) Stricture of sigmoid colon Status: Acute Response to Treatment: Stable Problem Text: POD #2 - s/p robotic assisted sigmoid colectomy and diverting colostomy 10/[address] Bedyoa Blood clots in Ostomy. Hgb = 8.7 (down from 8.8 yesterday morning). Monitor closely Last dose of Zosyn given yesterday - Not sure if plan to continue abx post-op - Defer to Surgery Not achieving pain control with Dilaudid - Get pain clinic to see for recomme ndations Still not taking much po - only occasional sips of water On TPN Addendum 11 am: I spoke with R[facility]al [facility]les at [facility] (she discussed with Dr. Charles) and I spoke with Dr. Bedoya. Both suggest trial of single dose of IV Tylenol and IV Toradol for acute post-op pain. Goal is to hopeefully be able to wean the Dilaudid perhaps early next week. (2) Chronic abdominal pain Status: Acute Problem Text: 11/02 - See above - Pain currently related to recent colectomy procedure as well as chronic pancreatitis - 11/01/18: s/p diverting colostomy. Patient with nausea. Encouraged to get OOB and try some sips of clears. Prn medication available. 10/30/18: planned for diverting colostomy tomorrow. 10/29/18: No bed available at [facility]; therefore, proceed with Diverting colostomy with Dr. Bedoya as scheduled for 10/31/18. 10/27- Family wanting transfer for possible evaluation by colorectal surgeon. Will call [facility] as they are familiar with patient and have colorectal surgery on site to see if they will accept. Will also try [facility] and [facility] facilities if the initial attempt fails. 1627 put out call to [facility] transfer center who attempted to connect me with hospitalist to discuss transfer. Senior Telecommunications Technician stated hospitalist busy with patient and would call back within 30 minutes. 1722- Spoke with Dr. Paulino about the patient and the potential transfer. Dr. Paulino will call colorectal surgeon to discuss case and call me back. 1799- call out to hospitalist racing secretary, last she heard Dr. Paulino was reaching out to colorectal surgeon and was unsure when he would be able to reach me. Plan was still to call me back, but unsure when. 1936- Dr. Cardoso called back to inform me he had tried the surgeon a couple times and that the surgeon was still in the OR. He will reach out once he hears back. Was unsure if bed was available and thought best bet may be to try for tomorrow morning, but that he would let the surgeon know either way. If answer is no from [facility], will reach out to other facilities tomorrow morning. Plan pending transfer is discussed in 10/26 note. 10/26/18: Pain persists, nausea persists. Patient is receiving Zofran IV. He has declined compazine prn for his nausea. Plan for sigmoid colectomy unchanged- Mon vs Wed 10/29 vs 10/31 P OR schedule. Cardiology provided surgical clearance. Recommendation is to hold Amiodarone, ASA and Plavix for now. I will stop those medications today and we will need to reassess post-operatively. Also, given patient is unable to tolerate PO meds, the recommendation was to start Metoprolol 5 mg q 6 hs IV with holding parameter for systolic BP <120. Medication was changed this morning. PPI changed to Pantoprazole 40mg IV BID mainly right-midline lower quadrant-constant c nausea/anorexia, favor 2 st ricture 2 colitis (inflammatory vs ischemic) vs malignant 10/25/18: Patient continues to use PRN Dilaudid. He has refused all oral medications. I will defer changing his cardiac meds to from po to IV to Cardiology. Case dw Dr. Garcia-patient cleared for sigmoid colectomy-plan for Mon vs Wed 10/29 vs 10/31 P OR schedule (defer cholecystectomy for future date given high surgical risk at this time) Sigmoidoscopy Findings: A severe stenosis measuring of unknown length x 4 mm (inner diameter) was found at 30 cm proximal to the anus and was non-traversed. 10/23/18: appreciate GI input-planning sigmoid given worse by CT and main source of pain and PICC placed to provide nutrition and pancreatic rest Patient with nausea and vomiting this morning. He was unable to take pain med po. K+ 5.2. Patient was changed to NPO. IV fluids changed to D5 1/2 NS at 60/hr. Hydromorphone 0.6mg IV q 3 hours prn pain only if unable to take PO med. 10/22/[address] Vasquez for opinion +/- colonoscopy/biopsy 10/21/18: CT AP: 1. A catheter is present in the gallbladder. 2. There is increased density in the pancreatic region likely representing edema and residual fluid collections. There is no definite new fluid collection. 3. There is thickening of a wall of a small segment of sigmoid colon with surrounding edema that may represent inflammatory bowel disease. 4. There is a small amount of free fluid in the abdomen. Electronically Signed by David Joel MD 10/21/2018 02:49 P DD: David Joel MD 10/21/18 1313 DT: KAYKAY 10/21/18 1350 DS: BEA 10/21/18 1449 10/21/18 1449 [~ rep ct labl] (3) Pneumonia Status: Acute Response to Treatment: Stable Problem Text: 11/02 - s/p 5 Days Vanco - last dose 10/29, s/p 7 days Zosyn - last dose 10/29 - CXR thought to be more consistent with CHF and showed improvement Now with productive cough and high risk for pneumonia due to poor insp neto and difficulty coughing due to pain - currently sats ok and no SOB or fever As above pain clinic to be contacted in hope of achieving better pain control Will need to encourage IS and OOB to prevent pneumonia CXR : Improved pulmonary edema pattern. Persistent small bilateral effusions. Chest X-ray 10/26: Pulmonary edema pattern bilaterally. Cardiomegaly with pacemaker. Small amounts of bilateral pleural fluid. CHF pattern 10/26/18 + Zosyn/vanco for ? PN, WBC 14.4; although no cough/F/C/hypoxia-? WBC related to colitis vs pancreatitis (4) Systolic and diastolic CHF, acute on chronic Status: Chronic Problem Text: 11/02 - slight ankle edema, but otherwise appears compensated - 11/01/18: appears well compensated. 10/26/18: Patient well compensated this morning. This morning patient had a chest x-ray d/t some chest discomfort. Patient's preliminary chest x-ray appeared to show a right lower lobe pneumonia with increased cephalization of pulmonary vasculature secondary to volume overload and pulmonary edema. Chest xray report deomonstrated Pulmonary edema pattern bilaterally. Cardiomegaly with pacemaker. Small amounts of bilateral pleural fluid. CHF pattern: He was given a one time dose of 40 mg of Lasix IV. IVF were discontinued. Patient was placed on abx to cover for pneumonia. We will continue to monitor 10/25/18: Patient appears well compensated on exam 10/23/18: IVF changed and rate decreased. Patient appears euvolemic on exam Echo 09/03/18: EF 30% Normal sinus rhythm with dual-chamber pacemaker. Appropriate atrial sensing and tracking with consistent ventricular paced. Paced QRS complexes with left bundle branch block QRS configuration. M-mode and two-dimensional echocardiography was performed with pulsed, continuous wave, color flow and tissue Doppler studies. Moderately dilated left ventricle with borderline hypertrophy. Paradoxical septal wall motion and apical akinesis related to right ventricular paced rhythm. Moderate to moderately severe impairment of global resting systolic function. Mildly dilated left atrium with impairment of LV diastolic function and elevated mean left atrial pressure. Right heart chamber sizes upper limits of normal with right ventricular hypokinesis and Doppler evidence of moderate pulmonary hypertension. Mildly dilated IVC with slightly reduced respiratory collapse suggestive of central venous pressure of approximately 10 - 15 mmHg. Slight aortic valvular sclerosis with adequate cusp separation but premature cusp closure in keeping with reduced forward stroke volume. WILL NEED MONITORING ON i/O DUE TO HX OF CHF (5) CAD (coronary artery disease) Status: Chronic Problem Text: 11/02 - No active symptoms Plavix on hold courtney-operatively and with blood from ostomy, would not restart until resolves. Refusing Amiodarone, Coreg, Statin and all other oral meds (6) Pancreatitis Permanent Comment: ? etiology-favor hyperTG (08/09/18 TG 506), +/- gliptin use (was on stevo) 10/23/18 CA-19-9 24 10/23/1808/10/18 lipase 820 Last Edited By: Hari Hoang MD on Oct 23, 2018 17:54 Status: Acute Problem Text: as per abdominal pain ? etiology-favor hyperTG (08/09/18 TG 506), +/- gliptin use (was on stevo) 10/23/18 CA-19-9 24 10/23/18 24 08/10/18 lipase 820 (7) Depression Status: Chronic Problem Text: refusing oral meds currently (8) DM2 (diabetes mellitus, type 2) Status: Chronic Problem Text: 11/02 - Cont SSI coverage - FSBS running 150 low 200s 10/25/18: We are starting TPN with finger sticks q 6 hrs and sliding scale coverage per protocol Metformin on hold. hypoglycemic this am. poor po intake. monitor glucose levels. add in D5 to IVF if hypoglycemia returns/persists. (9) Malnutrition Status: Chronic Problem Text: 10/26/18: TPN 10/25/18: TPN ordered today. We will monitor BGs per protocol 10/24 -- PICC line in place, should initiate TPN tomorrow. Nutritional assessment has been in the chart, but does not make recommendations re: TPN, and a formal consult for TPN recommendations was ordered. Plan/VTE VTE Prophylaxis Ordered?: Yes (SCDs - No anticoag post-op due to current blood from ostomy) VS, I&O, 24H, Fishbone Vital Signs/I&O Vital Signs Date Time Temp Pulse Resp B/P (MAP) Pulse Ox O2 Delivery O2 Flow Rate FiO2 11/02/18 06:24 16 11/02/18 04:00 97.6 87 118/79 (92) 96 10/31/18 13:30 2.0 I&O- Last 24 Hours up to 6 AM 11/02/18 06:00 Intake Total 1080 ml Output Total 1035 ml Balance 45 ml Laboratory Data 24H LABS Laboratory Tests 2 11/01/18 11:48: Bedside Glucose (Misc Panel) 246H 11/01/18 17:26: Bedside Glucose (Misc Panel) 197H 11/02/18 01:15: Bedside Glucose (Misc Panel) 185H 11/02/18 05:10: Nucleated Red Blood Cells % (auto) 0.0, Anion Gap 8, Glomerular Filtration Rate > 60.0, Blood Urea Nitrogen 20H, Creatinine 0.67L, Sodium Level 137, Potassium Level 4.1, Chloride Level 106, Carbon Dioxide Level 23, Calcium Level 8.8 CBC/BMP Laboratory Tests 11/02/18 05:10 Red Blood Count 3.32 L, Mean Corpuscular Volume 84.9, Mean Corpuscular Hemoglobin 26.2 L, Mean Corpuscular Hemoglobin Concent 30.9 L, Red Cell Distribution Width 16.7 H, Calcium Level 8.8 Microbiology Microbiology 10/29/18 MRSA Screen - Final, Complete Staph.aureus Methicillin Resis DANIEL TOUSSAINT PA-C Nov 02, 2018 08:31
--- NOTE | 2018-11-02 08:43 | IPNPDOC ---
Text Note Date of Service The patient was seen on 11/02/18. NOTE No acute events overnight. He is still having the same abd pains. He refuses to attempt PO intake, and is not moving at all. VSSAF NAD abd - soft, non distended, no rebound or guarding, tender to palpation epigastric only, ostomy is pink with sweat in the bag and some clots around the ostomy. Unchanged from yesterday. labs - see below A) 48y/o male with complicated medical history, and a benign appearing sigmoid stricture s/p RA sigmoidectomy with end colostomy recent CO CAD chronic pancreatitis acalculous cholecystitis likely secondary to the pancreatitis with c holecystostomy drain in place. P) clq diet as tolerated monitor ostomy output and labs Recommend pain management to start weaning pain meds PT OOB to chair ambulate Cody Bedoya DO VS,Edmundobongrisel, I+O VS, Fishbone, I+O Laboratory Tests 11/02/18 05:10 Red Blood Count 3.32 L, Mean Corpuscular Volume 84.9, Mean Corpuscular Hemoglobin 26.2 L, Mean Corpuscular Hemoglobin Concent 30.9 L, Red Cell Distribution Width 16.7 H, Calcium Level 8.8 Vital Signs Date Time Temp Pulse Resp B/P (MAP) Pulse Ox O2 Delivery O2 Flow Rate FiO2 11/02/18 08:00 98.9 87 18 122/76 (91) 95 10/31/18 13:30 2.0 I&O- Last 24 Hours up to 6 AM 11/02/18 06:00 Intake Total 1080 ml Output Total 1035 ml Balance 45 ml LAVINIA BEDOYA DO Nov 02, 2018 08:43
[2018-11-02] MEDS: CARVedilol 6.25 MG TAB PO SCH ×2 (09:00→21:06)
[2018-11-02] MEDS: AMIODARONE 200 MG TAB (PACERONE) PO SCH (09:00)
[2018-11-02] MEDS: ROSUVASTATIN 10 MG TAB (CRESTOR) PO SCH (09:00)
[2018-11-02] MEDS: MAGNESIUM OXIDE 400 MG TAB (MAG-OX) PO SCH (09:00)
[2018-11-02] MEDS: FLUoxetine 20 MG CAP PO SCH (09:00)
[2018-11-02] MEDS: PANTOPRAZOLE 40MG INJ (PROTONIX) (C9113) IV SCH ×2 (09:00→21:06)
[2018-11-02] MEDS: MULTIVITAMINS/MINERALS THERAP 1 TAB PO SCH (09:00)
[2018-11-02] MEDS: KETOROLAC 30 MG/ML VIAL (J1885) IV PRN ×2 (11:30→21:14)
[2018-11-02] MEDS ORDERED: ACETAMINOPHEN *IV* 1,000 MG in APPROPRIATE DILUENT 1 EA IV ONE (12:00)
--- NOTE | 2018-11-02 12:17 | CR ---
DATE OF CONSULTATION: 11/02/2018 REFERRING PROVIDER: TIFFANIE Kruger PHONE NOTE: CHIEF COMPLAINT: 1. Acute on chronic abdominal pain. 2. Pancreatitis. We received a phone call for assistance in this gentleman's pain control this morning. I have seen him multiple times during his hospital stay. He had ileostomy yesterday and is postoperative day #1. Has been refusing oral medications, including Dilaudid, cardiac, as well as psychiatric medications over the past few days, per primary nursing staff report today. Currently taking 0.6 mg of IV Dilaudid pretty consistently every 3 hours. Pain is only marginally improved, and he is refusing to move. Spoke with Sissy about help in terms of postoperative day #1 [address]. Spoke with Dr[address] Charles. He has recommended IV Tylenol times one and IV Toradol. I did relate this to Sissy and she has also spoken with Dr. Bedoya. We will be glad to help next week to possibly work on a wean down schedule for his IV pain medication. Please contact us if we can be of further assistance next week.
[2018-11-02 12:57] LABS: HEMATOCRIT 29.8 % (42.0-52.0); HEMOGLOBIN 9.2 g/dl (13.5-17.5); MEAN CORPUSCULAR HEMOGLOBIN 27.1 pg (27.0-33.0); MEAN CORPUSCULAR HGB CONC 30.9 g/dl (32.0-36.5); MEAN CORPUSCULAR VOLUME 87.9 fl (80.0-96.0); PLATELET COUNT, AUTOMATED 162 10^3/uL (150-450); RED BLOOD COUNT 3.39 10^6/uL (4.30-6.10); WHITE BLOOD COUNT 8.6 10^3/uL (4.0-10.0)
[2018-11-02] MEDS ORDERED: AMINO AC/ELECTROLYTE/DEX/CALC 2,000 ML IV SCH (18:00)
[2018-11-02] MEDS ORDERED: FAT EMULSION IV 20% 500 ML IV SCH (18:00)
[2018-11-03] MEDS: ONDANSETRON 4MG/2ML VIAL (J2405) IV PRN ×5 (01:39→21:33)
[2018-11-03 04:00] VITALS: BP 125/84
[2018-11-03] MEDS: HYDROmorphone 2 MG TAB PO SCH ×3 (05:11→17:33)
[2018-11-03] MEDS: KETOROLAC 30 MG/ML VIAL (J1885) IV PRN ×2 (06:00→19:38)
[2018-11-03] MEDS: HumaLOG INSULIN (NovoLOG) PER UNIT SC SCH ×3 (06:01→18:31)
[2018-11-03] MEDS: SODIUM CHLORIDE 0.9% INJ 10 ML SYR IV SCH ×2 (06:01→17:27)
[2018-11-03 07:18] LABS: HEMATOCRIT 27.4 % (42.0-52.0); HEMOGLOBIN 8.4 g/dl (13.5-17.5); MEAN CORPUSCULAR HEMOGLOBIN 26.9 pg (27.0-33.0); MEAN CORPUSCULAR HGB CONC 30.7 g/dl (32.0-36.5); MEAN CORPUSCULAR VOLUME 87.8 fl (80.0-96.0); PLATELET COUNT, AUTOMATED 159 10^3/uL (150-450); RED BLOOD COUNT 3.12 10^6/uL (4.30-6.10); WHITE BLOOD COUNT 7.3 10^3/uL (4.0-10.0)
[2018-11-03] MEDS: SUCRALFATE 1 GM TAB PO SCH ×4 (07:30→21:24)
[2018-11-03] MEDS: MAGNESIUM OXIDE 400 MG TAB (MAG-OX) PO SCH (07:31)
[2018-11-03] MEDS: CARVedilol 6.25 MG TAB PO SCH ×2 (07:31→21:24)
[2018-11-03] MEDS: ROSUVASTATIN 10 MG TAB (CRESTOR) PO SCH (07:31)
[2018-11-03] MEDS: MULTIVITAMINS/MINERALS THERAP 1 TAB PO SCH (07:32)
[2018-11-03] MEDS: AMIODARONE 200 MG TAB (PACERONE) PO SCH (07:32)
[2018-11-03] MEDS: FLUoxetine 20 MG CAP PO SCH (07:32)
[2018-11-03 07:44] LABS: BLOOD UREA NITROGEN 23 MG/DL (7-18); CALCIUM LEVEL 8.7 MG/DL (8.5-10.1); CARBON DIOXIDE LEVEL 22 MEQ/L (21-32); CHLORIDE LEVEL 105 MEQ/L (98-107); CREATININE FOR GFR 0.78 MG/DL (0.70-1.30); GLOMERULAR FILTRATION RATE > 60.0 (>56); GLUCOSE, FASTING 162 MG/DL (70-100); POTASSIUM SERUM 4.3 MEQ/L (3.5-5.1); SODIUM LEVEL 136 MEQ/L (136-145)
[2018-11-03 08:00] VITALS: BP 129/90
[2018-11-03] MEDS: PANTOPRAZOLE 40MG INJ (PROTONIX) (C9113) IV SCH ×2 (09:24→21:33)
--- NOTE | 2018-11-03 10:30 | IPNPDOC ---
Text Note Date of Service The patient was seen on 11/03/18. NOTE No acute events overnight. His abd pain is slightly improved with the toradol. He has been tolerating some small amounts of PO intake, and sat on the side of the bed with PT. VSSAF NAD abd - soft, non distended, no rebound or guarding, tender to palpation epigastric only, ostomy is pink with sweat in the bag and some clots around the ostomy. Unchanged from yesterday. labs - see below A) 48y/o male with complicated medical history, and a benign appearing sigmoid stricture s/p RA sigmoidectomy with end colostomy recent MA CAD chronic pancreatitis acalculous cholecystitis likely secondary to the pancreatitis with cholecystostomy drain in place. P) clq diet as tolerated monitor ostomy output and labs I started to wean his dilaudid IV today down to .4mg from .6mg PT OOB to chair ambulate Cody Bedoya DO VS,Fishbongrisel, I+O VS, Fishlane, I+O Laboratory Tests 11/02/18 12:43 Red Blood Count 3.39 L, Mean Corpuscular Volume 87.9, Mean Corpuscular Hemoglobin 27.1, Mean Corpuscular Hemoglobin Concent 30.9 L, Red Cell Dis tribution Width 16.9 H 11/03/18 07:00 Red Blood Count 3.12 L, Mean Corpuscular Volume 87.8, Mean Corpuscular Hemoglobin 26.9 L, Mean Corpuscular Hemoglobin Concent 30.7 L, Red Cell Distribution Width 16.7 H, Calcium Level 8.7 Vital Signs Date Time Temp Pulse Resp B/P (MAP) Pulse Ox O2 Delivery O2 Flow Rate FiO2 11/03/18 08:00 97.6 85 16 129/90 (103) 99 10/31/18 13:30 2.0 I&O- Last 24 Hours up to 6 AM 11/03/18 06:00 Intake Total 2200 ml Output Total 1750 ml Balance 450 ml LAVINIA BEDOYA DO Nov 03, 2018 10:30
[2018-11-03 12:00] VITALS: BP 127/83
--- NOTE | 2018-11-03 14:57 | IPNPDOC ---
Subjective Date Seen The patient was seen on 11/03/18. Subjective Chief Complaint/HPI No acute events overnight. Patient feels like the IV tylenol did not do much for his pain, but that it may be slightly improved. Objective Physical Examination General Exam: Positive: Cooperative, No Acute Distress, Other (Wakes to verbal stimuli, but fell back to sleep. C/O pain when awake) Chest Exam: Positive: Normal air movement, Rhonchi (few Bilateral); Negative: Wheezing Heart Exam: Positive: Rate Normal, Regular Rhythm, Normal S1, Normal S2 Abdomen Exam: Positive: Other (Ostomy with bloody clots. drain in place empty but scant left over blood. Tender diffusely) Extremity Exam: Positive: Edema (trace - 1+ ankle edema) Assessment /Plan Problems (1) Stricture of sigmoid colon Status: Acute Response to Treatment: Stable Problem Text: 11/03- Post op day 3. GI pathology demonstrating marked mucosal ulceration, transmural inflammation, and marked stenosis. IV toradol and tylenol may have slightly improved his pain. He was gently counseled on taking oral medications and has been tolerating his oral dilaudid adequately so far and is not requiring further narcotic supplementation. He was able to sit up with his legs off the bed in PT yesterday which is already an improvement. 11/02-POD #2 - s/p robotic assisted sigmoid colectomy and diverting colostomy 10/[address] Bedoya Blood clots in Ostomy. Hgb = 8.7 (down from 8.8 yesterday morning). Monitor closely Last dose of Zosyn given yesterday - Not sure if plan to continue abx post-op - Defer to Surgery Not achieving pain control with Dilaudid - Get pain clinic to see for recommendations Still not taking much po - only occasional sips of water On TPN Addendum 11 am: I spoke with Racheal Nobles at [facility] (she discussed with Dr. Charles) and I spoke with Dr. Bedoya. Both suggest trial of single dose of IV Tylenol and IV Toradol for acute post-op pain. Goal is to hopeefully be able to wean the Dilaudid perhaps early next week. (2) Chronic abdominal pain Status: Acute Problem Text: 11/02 - See above - Pain currently related to recent colectomy p rocedure as well as chronic pancreatitis - 11/01/18: s/p diverting colostomy. Patient with nausea. Encouraged to get OOB and try some sips of clears. Prn medication available. 10/30/18: planned for diverting colostomy tomorrow. 10/29/18: No bed available at [facility]; therefore, proceed with Diverting colostomy with Dr. Bedoya as scheduled for 10/31/18. 10/27- Family wanting transfer for possible evaluation by colorectal surgeon. Will call [facility] as they are familiar with patient and have colorectal surgery on site to see if they will accept. [facility] also [facility] if the initial attempt fails. 1627 put out call to [facility] transfer center who attempted to connect me with hospitalist to discuss transfer. [employer] stated hospitalist busy with patient a nd would call back within 30 minutes. 1722- Spoke with Dr. Paulino about the patient and the potential transfer. Dr. Paulino will call colorectal surgeon to discuss case and call me back. 1799- call out to hospitalist assistant secretary, last she heard Dr. Paulino was reaching out to colorectal surgeon and was unsure when he would be able to reach me. Plan was still to call me back, but unsure when. 1936- Dr. Cardoso called back to inform me he had tried the surgeon a couple times and that the surgeon was still in the OR. He will reach out once he hears back. Was unsure if bed was available and thought best bet may be to try for tomorrow morning, but that he would let the surgeon know either way. If answer is no from [facility], will reach out to other facilities tomorrow morning. Plan pending transfer is discussed in 10/26 note. 10/26/18: Pain persists, nausea persists. Patient is receiving Zofran IV. He has declined compazine prn for his nausea. Plan for sigmoid colectomy unchanged- Mon vs 10/29 vs 10/31 P OR schedule. Cardiology provided surgical clearance. Recom mendation is to hold Amiodarone, ASA and Plavix for now. I will stop those medications today and we will need to reassess post-operatively. Also, given patient is unable to tolerate PO meds, the recommendation was to start Metoprolol 5 mg q 6 hs IV with holding parameter for systolic BP <120. Medication was changed this morning. PPI changed to Pantoprazole 40mg IV BID mainly right-midline lower quadrant-constant c nausea/anorexia, favor 2 stricture 2 colitis (inflammatory vs ischemic) vs malignant 10/25/18: Patient continues to use PRN Dilaudid. He has refused all oral medications. I will defer changing his cardiac meds to from po to IV to Cardiology. Case dw Dr. Garcia-patient cleared for sigmoid colectomy-plan for Mon vs 10/29 vs 10/31 P OR schedule (defer cholecystectomy for future date given high surgical risk at this time) Sigmoidoscopy Findings: A severe stenosis measuring of unknown length x 4 mm (inner diameter) was found at 30 cm proximal to the anus and was non-traversed. 10/23/18: appreciate GI input-planning sigmoid given worse by CT and main source of pain and PICC placed to provide nutrition and pancreatic rest Patient with nausea and vomiting this morning. He was unable to take pain med po. K+ 5.2. Patient was changed to NPO. IV fluids changed to D5 1/2 NS at 60/hr. Hydromorphone 0.6mg IV q 3 hours prn pain only if unable to take PO med. 10/22/[address] Vasquez for opinion +/- colonoscopy/biopsy 10/21/18: CT AP: 1. A catheter is present in the gallbladder. 2. There is increased density in the pancreatic region likely representing edema and residual fluid collections. There is no definite new fluid collection. 3. There is thickening of a wall of a small segment of sigmoid colon with surrounding edema that may represent inflammatory bowel disease. 4. There is a small amount of free fluid in the abdomen. Electronically Signed by David Joel MD 10/21/2018 02:49 P DD: David Joel MD 10/21/18 1313 DT: KAYKAY 10/21/18 1350 DS: BEA 10/21/18 1449 10/21/18 1449 [~ rep ct labl] (3) Pneumonia Status: Acute Response to Treatment: Stable Problem Text: 11/02 - s/p 5 Days Vanco - last dose 10/29, s/p 7 days Zosyn - last dose 10/29 - CXR thought to be more consistent with CHF and showed improvement Now with productive cough and high risk for pneumonia due to poor insp neto and difficulty coughing due to pain - currently sats ok and no SOB or fever As above pain clinic to be contacted in hope of achieving better pain control Will need to encourage IS and OOB to prevent pneumonia CXR : Improved pulmonary edema pattern. Persistent small bilateral effusions. Chest X-ray 10/26: Pulmonary edema pattern bilaterally. Cardiomegaly with pacemaker. Small amounts of bilateral pleural fluid. CHF pattern 10/26/18 + Zosyn/vanco for ? PN, WBC 14.4; although no cough/F/C/hypoxia-? WBC related to colitis vs pancreatitis (4) Systolic and diastolic CHF, acute on chronic Status: Chronic Problem Text: 11/02 - slight ankle edema, but otherwise appears compensated - 11/01/18: appears well compensated. 10/26/18: Patient well compensated this morning. This morning patient had a chest x-ray d/t some chest discomfort. Patient's preliminary chest x-ray appeared to show a right lower lobe pneumonia with increased cephalization of pulmonary vasculature secondary to volume overload and pulmonary edema. Chest xray report deomonstrated Pulmonary edema pattern bilaterally. Cardiomegaly with pacemaker. Small amounts of bilateral pleural fluid. CHF pattern: He was given a one time dose of 40 mg of Lasix IV. IVF were discontinued. Patient was placed on abx to cover for pneumonia. We will continue to monitor 10/25/18: Patient appears well compensated on exam 10/23/18: IVF changed and rate decreased. Patient appears euvolemic on exam Echo 09/03/18: EF 30% Normal sinus rhythm with dual-chamber pacemaker. Appropriate atrial sensing and tracking with consistent ventricular paced. Paced QRS complexes with left bundle branch block QRS configuration. M-mode and two-dimensional echocardiography was performed with pulsed, continuous wave, color flow and tissue Doppler studies. Moderately dilated left ventricle with borderline hypertrophy. Paradoxical septal wall motion and apical akinesis related to right ventricular paced rhythm. Moderate to moderately severe impairment of global resting systolic function. Mildly dilated left atrium with impairment of LV diastolic function and elevated mean left atrial pressure. Right heart chamber sizes upper limits of normal with right ventricular hypokinesis and Doppler evidence of moderate pulmonary hypertension. Mildly dilated IVC with slightly reduced respiratory collapse suggestive of central venous pressure of approximately 10 - 15 mmHg. Slight aortic valvular sclerosis with adequate cusp separation but premature cusp closure in keeping with reduced forward stroke volume. WILL NEED MONITORING ON i/O DUE TO HX OF CHF (5) CAD (coronary artery disease) Status: Chronic Problem Text: 11/02 - No active symptoms Plavix on hold courtney-operatively and with blood from ostomy, would not restart until resolves. Refusing Amiodarone, Coreg, Statin and all other oral meds (6) Pancreatitis Permanent Comment: ? etiology-favor hyperTG (08/09/18 TG 506), +/- gliptin use (was on stevo) 10/23/18 CA-19-9 24 10/23/18 24 08/10/18 lipase 820 Last Edited By: Hari Hoang MD on Oct 23, 2018 17:54 Status: Acute Problem Text: as per abdominal pain ? etiology-favor hyperTG (08/09/18 TG 506), +/- gliptin use (was on stevo) 10/23/18 CA-19-9 24 10/23/18 24 08/10/18 lipase 820 (7) Depression Status: Chronic Problem Text: refusing oral meds currently (8) DM2 (diabetes mellitus, type 2) Status: Chronic Problem Text: 11/02 - Cont SSI coverage - FSBS running 150 low 200s 10/25/18: We are starting TPN with finger sticks q 6 hrs and sliding scale coverage per protocol Metformin on hold. hypoglycemic this am. poor po intake. monitor glucose levels. add in D5 to IVF if hypoglycemia returns/persists. (9) Malnutrition Status: Chronic Problem Text: 10/26/18: TPN 10/25/18: TPN ordered today. We will monitor BGs per protocol 10/24 -- PICC line in place, should initiate TPN tomorrow. Nutritional assessment has been in the chart, but does not make recommendations re: TPN, and a formal consult for TPN recommendations was ordered. Plan/VTE VTE Prophylaxis Ordered?: Yes (SCDs - No anticoag post-op due to current blood from ostomy) VS, I&O, 24H, Fishbone Vital Signs/I&O Vital Signs Date Time Temp Pulse Resp B/P (MAP) Pulse Ox O2 Delivery O2 Flow Rate FiO2 11/03/18 12:45 18 11/03/18 12:00 97.2 89 127/83 (98) 100 1.0 I&O- Last 24 Hours up to 6 AM 11/03/18 06:00 Intake Total 2200 ml Output Total 1750 ml Balance 450 ml Laboratory Data 24H LABS Laboratory Tests 2 11/02/18 18:46: Bedside Glucose (Misc Panel) 163H 11/02/18 23:13: Bedside Glucose (Misc Panel) 132H 11/03/18 05:52: Bedside Glucose (Misc Panel) 160H 11/03/18 07:00: Nucleated Red Blood Cells % (auto) 0.0, Anion Gap 9, Glomerular Filtration Rate > 60.0, Blood Urea Nitrogen 23H, Creatinine 0.78, Sodium Level 136, Potassium Level 4.3, Chloride Level 105, Carbon Dioxide Level 22, Calcium Level 8.7 11/03/18 12:17: Bedside Glucose (Misc Panel) 164H CBC/BMP Laboratory Tests 11/03/18 07:00 Red Blood Count 3.12 L, Mean Corpuscular Volume 87.8, Mean Corpuscular Hemoglobin 26.9 L, Mean Corpuscular Hemoglobin Concent 30.7 L, Red Cell Distribution Width 16.7 H, Calcium Level 8.7 Microbiology Microbiology 10/29/18 MRSA Screen - Final, Complete Staph.aureus Methicillin Resis GME ATTESTATION GME ATTESTATION My faculty preceptor for this patient encounter was physically present during the encounter and was fully available. All aspects of the patient interview, examination, medical decision making process, and medical care plan development were reviewed and approved by the faculty preceptor. The faculty preceptor is aware and concurs with the plan as stated in the body of this note and will attest to such by his/her cosignature. USHA SALINAS DO Nov 03, 2018 14:57
[2018-11-03 16:00] VITALS: BP 121/83
[2018-11-03] MEDS ORDERED: AMINO AC/ELECTROLYTE/DEX/CALC 2,000 ML IV SCH (18:00)
[2018-11-03] MEDS ORDERED: FAT EMULSION IV 20% 500 ML IV SCH (18:00)
[2018-11-03] MEDS: PROCHLORPERAZINE 25 MG SUPP PR PRN (18:37)
[2018-11-03] MEDS: SODIUM CHLORIDE 0.9% INJ 10 ML SYR IV PRN ×2 (19:38→21:34)
[2018-11-03 20:00] VITALS: BP 117/76
[2018-11-03] MEDS: HYDROMORPHONE HCL 0.5 MG/ 0.5 ML SYRINGE (J1170 PER 1) IV PRN (21:34)
[2018-11-03 23:59] VITALS: BP 118/71
[2018-11-04] MEDS: HumaLOG INSULIN (NovoLOG) PER UNIT SC SCH ×4 (00:31→18:11)
[2018-11-04] MEDS: SODIUM CHLORIDE 0.9% INJ 10 ML SYR IV PRN ×4 (00:31→21:05)
[2018-11-04] MEDS: HYDROMORPHONE HCL 0.5 MG/ 0.5 ML SYRINGE (J1170 PER 1) IV PRN ×4 (00:32→09:44)
[2018-11-04] MEDS: ONDANSETRON 4MG/2ML VIAL (J2405) IV PRN ×4 (03:34→17:00)
[2018-11-04 04:00] VITALS: BP 117/78
[2018-11-04 05:36] LABS: HEMOGLOBIN 8.5 g/dl (13.5-17.5); MEAN CORPUSCULAR HEMOGLOBIN 26.4 pg (27.0-33.0); MEAN CORPUSCULAR HGB CONC 30.4 g/dl (32.0-36.5); PLATELET COUNT, AUTOMATED 167 10^3/uL (150-450); RED BLOOD COUNT 3.22 10^6/uL (4.30-6.10); WHITE BLOOD COUNT 6.3 10^3/uL (4.0-10.0)
[2018-11-04] MEDS: KETOROLAC 30 MG/ML VIAL (J1885) IV PRN ×2 (05:47→14:32)
[2018-11-04] MEDS: HYDROmorphone 2 MG TAB PO SCH ×4 (05:49→18:12)
[2018-11-04 05:56] LABS: BLOOD UREA NITROGEN 25 MG/DL (7-18); CALCIUM LEVEL 8.7 MG/DL (8.5-10.1); CARBON DIOXIDE LEVEL 22 MEQ/L (21-32); CHLORIDE LEVEL 105 MEQ/L (98-107); GLOMERULAR FILTRATION RATE > 60.0 (>56); GLUCOSE, FASTING 146 MG/DL (70-100); POTASSIUM SERUM 4.5 MEQ/L (3.5-5.1); SODIUM LEVEL 136 MEQ/L (136-145)
[2018-11-04] MEDS: SODIUM CHLORIDE 0.9% INJ 10 ML SYR IV SCH ×2 (06:33→18:00)
--- NOTE | 2018-11-04 07:56 | IPNPDOC ---
Text Note Date of Service The patient was seen on 11/04/18. NOTE No acute events overnight. His abd pain is slightly improved today. He appears to be tolerating the lower dose of dilaudid. He has been tolerating some sips of water only. VSSAF NAD abd - soft, non distended, no rebound or guarding, tender to palpation epigastric only, ostomy is pink with sweat in the bag and some clots around the ostomy. Unchanged from yesterday. labs - see below A) 48y/o male with complicated medical history, and a benign appearing sigmoid stricture s/p RA sigmoidectomy with end colostomy recent [place] CAD chronic pancreatitis acalculous cholecystitis likely secondary to the pancreatitis with cholecystostomy drain in place. P) clq diet as tolerated monitor ostomy output and labs continuing to wean his dilaudid IV today down to .4mg Q4 hours PT OOB to chair ambulate Cody Bedoya DO VS,Kami, I+O VS, Kami, I+O Laboratory Tests 11/04/18 05:13 Red Blood Count 3.22 L, Mean Corpuscular Volume 87.0, Mean Corpuscular Hemoglobin 26.4 L, Mean Corpuscular Hemoglobin Concent 30.4 L, Red Cell Dist ribution Width 16.5 H, Calcium Level 8.7 Vital Signs Date Time Temp Pulse Resp B/P (MAP) Pulse Ox O2 Delivery O2 Flow Rate FiO2 11/04/18 07:28 1.0 11/04/18 06:44 16 11/04/18 04:00 98.1 94 117/78 (91) 98 I&O- Last 24 Hours up to 6 AM 11/04/18 05:59 Intake Total 1140 ml Output Total 1225 ml Balance -85 ml LAVINIA BEDOYA DO Nov 04, 2018 07:56
[2018-11-04 08:00] VITALS: BP 127/89
[2018-11-04] MEDS: SUCRALFATE 1 GM TAB PO SCH ×4 (08:32→21:04)
[2018-11-04] MEDS: ROSUVASTATIN 10 MG TAB (CRESTOR) PO SCH (08:32)
[2018-11-04] MEDS: MAGNESIUM OXIDE 400 MG TAB (MAG-OX) PO SCH (08:32)
[2018-11-04] MEDS: PANTOPRAZOLE 40MG INJ (PROTONIX) (C9113) IV SCH ×2 (08:32→21:05)
[2018-11-04] MEDS: FLUoxetine 20 MG CAP PO SCH (08:33)
[2018-11-04] MEDS: CARVedilol 6.25 MG TAB PO SCH ×2 (08:33→21:04)
[2018-11-04] MEDS: AMIODARONE 200 MG TAB (PACERONE) PO SCH (08:34)
[2018-11-04] MEDS: MULTIVITAMINS/MINERALS THERAP 1 TAB PO SCH (08:38)
[2018-11-04 12:00] VITALS: BP 113/79
[2018-11-04 16:00] VITALS: BP 118/79
[2018-11-04] MEDS ORDERED: AMINO AC/ELECTROLYTE/DEX/CALC 2,000 ML IV SCH (18:00)
[2018-11-04] MEDS ORDERED: FAT EMULSION IV 20% 500 ML IV SCH (18:00)
[2018-11-04 20:00] VITALS: BP 129/83
--- NOTE | 2018-11-04 22:15 | IPNPDOC ---
Subjective Date Seen The patient was seen on 11/04/18. Subjective Chief Complaint/HPI Patient seen and examined. He notes persistent abdominal discomfort, though a bit improved from the day before. He is now taking more medication PO, though he says it makes his stomach hurt more. He expressed concern that he was no longer prescribed Dilaudid, and I told him that though weaning him off was a good idea, it had not been entirely DCed. Constitutional: Denies: Chills, Fever Pulmonary: Denies: Dyspnea, Cough Cardiovascular: Denies: Chest Pain Gastrointestinal: Reports: Nausea, Abdominal Pain; Denies: Vomiting Objective Physical Examination General Exam: Positive: Cooperative, No Acute Distress, Other (Wakes to verbal stimuli, but fell back to sleep. C/O pain when awake) Chest Exam: Positive: Normal air movement; Negative: Rhonchi, Wheezing Heart Exam: Positive: Rate Normal, Regular Rhythm, Normal S1, Normal S2 Abdomen Exam: Positive: Other (Ostomy with bloody clots. drain in place empty but scant left over blood. Tender diffusely) Extremity Exam: Negative: Edema Assessment /Plan Problems (1) Stricture of sigmoid colon Status: Acute Response to Treatment: Stable Problem Text: 11/04 -- postop day 4. General surgery is spacing out his IV dilaudid (he is receiving PO dilaudid as well.) Discussed this with patient. Incisions appear to be healing well. 11/03- Post op day 3. GI pathology demonstrating marked mucosal ulceration, transmural inflammation, and marked stenosis. IV toradol and tylenol may have slightly improved his pain. He was gently counseled on taking oral medications and has been tolerating his oral dilaudid adequately so far and is not requiring further narcotic supplementation. He was able to sit up with his legs off the bed in PT yesterday which is already an improvement. 11/02-POD #2 - s/p robotic assisted sigmoid colectomy and diverting colostomy 10/[address] Bedoya Blood clots in Ostomy. Hgb = 8.7 (down from 8.8 yesterday morning). Monitor closely Last dose of Zosyn given yesterday - Not sure if plan to continue abx post-op - Defer to Surgery Not achieving pain control with Dilaudid - Get pain clinic to see for recommendations Still not taking much po - only occasional sips of water On TPN Addendum 11 am: I spoke with Racheal Nobles at [facility] (she discussed with Dr. Charles) and I spoke with Dr. Bedoya. Both suggest trial of single dose of IV Tylenol and IV Toradol for acute post-op pain. Goal is to hopeefully be able to wean the Dilaudid perhaps early next week. (2) Chronic abdominal pain Status: Acute Problem Text: 11/02 - See above - Pain currently related to recent colectomy procedure as well as chronic pancreatitis - 11/01/18: s/p diverting colostomy. Patient with nausea. Encouraged to get OOB and try some sips of clears. Prn medication available. 10/30/18: planned for diverting colostomy tomorrow. 10/29/18: No bed available at [facility]; therefore, proceed with Diverting colostomy with Dr. Bedoya as scheduled for 10/31/18. 10/27- Family wanting transfer for possible evaluation by colorectal surgeon. Will call [facility] as they are familiar with patient and have colorectal surgery on site to see if they will accept. Will also try [facility] and [facility] if the initial attempt fails. 1627 put out call to [facility] transfer center who attempted to connect me with hospitalist to discuss transfer. Firebrick Layer stated hospitalist busy with patient and would call back within 30 minutes. 1722- Spoke with Dr. Paulino about the patient and the potential transfer. Dr. Paulino will call colorectal surgeon to discuss case and call me back. 1799- call out to hospitalist marketing secretary, last she heard Dr. Paulino was reaching out to colorectal surgeon and was unsure when he would be able to reach me. Plan was still to call me back, but unsure when. 1936- Dr. Cardoso called back to inform me he had tried the surgeon a couple ti mes and that the surgeon was still in the OR. He will reach out once he hears back. Was unsure if bed was available and thought best bet may be to try for tomorrow morning, but that he would let the surgeon know either way. If answer is no from [facility], will reach out to other facilities tomorrow morning. Plan pending transfer is discussed in 10/26 note. 10/26/18: Pain persists, nausea persists. Patient is receiving Zofran IV. He has declined compazine prn for his nausea. Plan for sigmoid colectomy unchanged- Mon vs 10/29 vs 10/31 P OR schedule. Cardiology provided surgical clearance. Recommendation is to hold Amiodarone, ASA and Plavix for now. I will stop those medications today and we will need to reassess post-operatively. Also, given patient is unable to tolerate PO meds, the recommendation was to start Metoprolol 5 mg q 6 hs IV with holding parameter for systolic BP <120. Medication was changed this morning. PPI changed to Pantoprazole 40mg IV BID mainly right-midline lower quadrant-constant c nausea/anorexia, favor 2 stricture 2 colitis (inflammatory vs ischemic) vs malignant 10/25/18: Patient continues to use PRN Dilaudid. He has refused all oral medications. I will defer changing his cardiac meds to from po to IV to Cardiology. Case dw Dr. Garcia-patient cleared for sigmoid colectomy-plan for Mon vs 10/29 vs 10/31 P OR schedule (defer cholecystectomy for future date given high surgical risk at this time) Sigmoidoscopy Findings: A severe stenosis measuring of unknown length x 4 mm (inner diameter) was found at 30 cm proximal to the anus and was non-traversed. 10/23/18: appreciate GI input-planning sigmoid given worse by CT and main source of pain and PICC placed to provide nutrition and pancreatic rest Patient with nausea and vomiting this morning. He was unable to take pain med po. K+ 5.2. Patient was changed to NPO. IV fluids changed to D5 1/2 NS at 60/hr. Hydromorphone 0.6mg IV q 3 hours prn pain only if unable to take PO med. 10/22/18 case tom Vasquez for opinion +/- colonoscopy/biopsy 10/21/18: CT AP: 1. A catheter is present in the gallbladder. 2. There is increased density in the pancreatic region likely representing edema and residual fluid collections. There is no definite new fluid collection. 3. There is thickening of a wall of a small segment of sigmoid colon with surrounding edema that may represent inflammatory bowel disease. 4. There is a small amount of free fluid in the abdomen. Electronically Signed by David Joel MD 10/21/2018 02:49 P DD: David Joel MD 10/21/18 1313 DT: KAYKAY 10/21/18 1350 DS: BEA 10/21/18 1449 10/21/18 1449 [~ rep ct labl] (3) Pneumonia Status: Acute Response to Treatment: Stable Problem Text: 11/02 - s/p 5 Days Vanco - last dose 10/29, s/p 7 days Zosyn - last dose 10/29 - CXR thought to be more consistent with CHF and showed improvement Now with productive cough and high risk for pneumonia due to poor insp neto and difficulty coughing due to pain - currently sats ok and no SOB or fever As above pain clinic to be contacted in hope of achieving better pain control Will need to encourage IS and OOB to prevent pneumonia CXR : Improved pulmonary edema pattern. Persistent small bilateral effusions. Chest X-ray 10/26: Pulmonary edema pattern bilaterally. Cardiomegaly with pacemaker. Small amounts of bilateral pleural fluid. CHF pattern 10/26/18 + Zosyn/vanco for ? PN, WBC 14.4; although no cough/F/C/hypoxia-? WBC related to colitis vs pancreatitis (4) Systolic and diastolic CHF, acute on chronic Status: Chronic Problem Text: 11/04 -- euvolemic today 11/02 - slight ankle edema, but otherwise appears compensated - 11/01/18: appears well compensated. 10/26/18: Patient well compensated this morning. This morning patient had a chest x-ray d/t some chest discomfort. Patient's preliminary chest x-ray appeared to show a right lower lobe pneumonia with increased cephalization of pulmonary vasc ulature secondary to volume overload and pulmonary edema. Chest xray report deomonstrated Pulmonary edema pattern bilaterally. Cardiomegaly with pacemaker. Small amounts of bilateral pleural fluid. CHF pattern: He was given a one time dose of 40 mg of Lasix IV. IVF were discontinued. Patient was placed on abx to cover for pneumonia. We will continue to monitor 10/25/18: Patient appears well compensated on exam 10/23/18: IVF changed and rate decreased. Patient appears euvolemic on exam Echo 09/03/18: EF 30% Normal sinus rhythm with dual-chamber pacemaker. Appropriate atrial sensing and tracking with consistent ventricular paced. Paced QRS complexes with left bundle branch block QRS configuration. M-mode and two-dimensional echocardiography was performed with pulsed, continuous wave, color flow and tissue Doppler studies. Moderately dilated left ventricle with borderline hypertrophy. Paradoxical septal wall motion and apical akinesis related to right ventricular paced rhyt hm. Moderate to moderately severe impairment of global resting systolic function. Mildly dilated left atrium with impairment of LV diastolic function and elevated mean left atrial pressure. Right heart chamber sizes upper limits of normal with right ventricular hypokinesis and Doppler evidence of moderate pulmonary hypertension. Mildly dilated IVC with slightly reduced respiratory collapse suggestive of central venous pressure of approximately 10 - 15 mmHg. Slight aortic valvular sclerosis with adequate cusp separation but premature cusp closure in keeping with reduced forward stroke volume. WILL NEED MONITORING ON i/O DUE TO HX OF CHF (5) CAD (coronary artery disease) Status: Chronic Problem Text: 11/02 - No active symptoms Plavix on hold courtney-operatively and with blood from ostomy, would not restart until resolves. Refusing Amiodarone, Coreg, Statin and all other oral meds (6) Pancreatitis Permanent Comment: ? etiology-favor hyperTG (08/09/18 TG 506), +/- gliptin use (was on stevo) 10/23/18 CA-19-9 24 10/23/18 24 08/10/18 lipase 820 Last Edited By: Hari Hoang MD on Oct 23, 2018 17:54 Status: Acute Problem Text: as per abdominal pain ? etiology-favor hyperTG (08/09/18 TG 506), +/- gliptin use (was on stevo) 10/23/18 CA-19-9 24 10/23/18 24 08/10/18 lipase 820 (7) Depression Status: Chronic Problem Text: refusing oral meds currently (8) DM2 (diabetes mellitus, type 2) Status: Chronic Problem Text: 11/02 - Cont SSI coverage - FSBS running 150 low 200s 10/25/18: We are starting TPN with finger sticks q 6 hrs and sliding scale coverage per protocol Metformin on hold. hypoglycemic this am. poor po intake. monitor glucose levels. add in D5 to IVF if hypoglycemia returns/persists. (9) Malnutrition Status: Chronic Problem Text: 10/26/18: TPN 10/25/18: TPN ordered today. We will monitor BGs per protocol 10/24 -- PICC line in place, should initiate TPN tomorrow. Nutritional assessment has been in the chart, but does not make recommendations re: TPN, and a formal consult for TPN recommendations was ordered. Plan/VTE VTE Prophylaxis Ordered?: Yes (SCDs - No anticoag post-op due to current blood from ostomy) VS, I&O, 24H, Fishbone Vital Signs/I&O Vital Signs Date Time Temp Pulse Resp B/P (MAP) Pulse Ox O2 Delivery O2 Flow Rate FiO2 11/04/18 20:00 97.8 84 16 129/83 (98) 99 1.0 I&O- Last 24 Hours up to 6 AM 11/04/18 06:00 Intake Total 1140 ml Output Total 1220 ml Balance -80 ml Laboratory Data 24H LABS Laboratory Tests 2 11/04/18 00:23: Bedside Glucose (Misc Panel) 144H 11/04/18 05:13: Nucleated Red Blood Cells % (auto) 0.0, Anion Gap 9, Glomerular Filtration Rate > 60.0, Blood Urea Nitrogen 25H, Creatinine 0.80, Sodium Level 136, Potassium Level 4.5, Chloride Level 105, Carbon Dioxide Level 22, Calcium Level 8.7 11/04/18 11:48: Bedside Glucose (Misc Panel) 175H 11/04/18 17:31: Bedside Glucose (Misc Panel) 147H CBC/BMP Laboratory Tests 11/04/18 05:13 Red Blood Count 3.22 L, Mean Corpuscular Volume 87.0, Mean Corpuscular Hemoglobin 26.4 L, Mean Corpuscular Hemoglobin Concent 30.4 L, Red Cell Distribu tion Width 16.5 H, Calcium Level 8.7 Microbiology Microbiology 10/29/18 MRSA Screen - Final, Complete Staph.aureus Methicillin Resis FAUZIA CASTRO DO Nov 04, 2018 22:15
[2018-11-04 23:59] VITALS: BP 119/72
[2018-11-05] MEDS: ONDANSETRON 4MG/2ML VIAL (J2405) IV PRN ×4 (00:06→15:53)
[2018-11-05] MEDS: HYDROmorphone 2 MG TAB PO SCH ×4 (00:07→18:07)
[2018-11-05] MEDS: HumaLOG INSULIN (NovoLOG) PER UNIT SC SCH ×4 (00:08→18:06)
[2018-11-05] MEDS: SODIUM CHLORIDE 0.9% INJ 10 ML SYR IV PRN ×2 (00:08→04:09)
[2018-11-05 04:00] VITALS: BP 126/75
[2018-11-05] MEDS: SODIUM CHLORIDE 0.9% INJ 10 ML SYR IV SCH ×2 (06:34→18:00)
[2018-11-05] MEDS: HYDROMORPHONE HCL 0.5 MG/ 0.5 ML SYRINGE (J1170 PER 1) IV PRN ×3 (06:35→21:59)
[2018-11-05] MEDS: SUCRALFATE 1 GM TAB PO SCH ×4 (07:30→20:26)
[2018-11-05 08:00] VITALS: BP 121/86
--- NOTE | 2018-11-05 08:51 | IPNPDOC ---
Text Note Date of Service The patient was seen on 11/05/18. NOTE No acute events overnight. His abd pain is slightly improved again today. He appears to be tolerating the lower dilaudid IV and is starting to take it PO. He has been tolerating some sips of water only. VSSAF NAD abd - soft, non distended, no rebound or guarding, tender to palpation epigastric only, ostomy is pink with sweat in the bag and some clots around the ostomy. Unchanged from yesterday. labs - see below A) 48y/o male with complicated medical history, and a benign appearing sigmoid stricture s/p RA sigmoidectomy with end colostomy recent VT CAD chronic pancreatitis acalculous cholecystitis likely secondary to the pancreatitis with cholecystostomy drain in place. P) clq diet as tolerated monitor ostomy output and labs continuing to wean his dilaudid IV today down to .4mg Q6 hours PT OOB to chair ambulate I have consulted the ostomy nurse to start talking to him about teaching. Cody Bedoya DO VS,Kami, I+O VS, Kami, I+O Vital Signs Date Time Temp Pulse Resp B/P (MAP) Pulse Ox O2 Delivery O2 Flow Rate FiO2 11/05/18 06:45 18 11/05/18 04:00 98.6 97 126/75 (92) 97 1.0 I&O- Last 24 Hours up to 6 AM 11/05/18 06:00 Intake Total 1060 ml Output Total 970 ml Balance 90 ml LAVINIA BEDOYA DO Nov 05, 2018 08:51
[2018-11-05] MEDS: MAGNESIUM OXIDE 400 MG TAB (MAG-OX) PO SCH (09:00)
[2018-11-05] MEDS: MULTIVITAMINS/MINERALS THERAP 1 TAB PO SCH (09:00)
[2018-11-05] MEDS: ROSUVASTATIN 10 MG TAB (CRESTOR) PO SCH (09:00)
[2018-11-05] MEDS: FLUoxetine 20 MG CAP PO SCH (09:00)
[2018-11-05] MEDS: CARVedilol 6.25 MG TAB PO SCH ×2 (09:00→20:26)
[2018-11-05] MEDS: AMIODARONE 200 MG TAB (PACERONE) PO SCH (09:00)
[2018-11-05] MEDS ORDERED: ENTRESTO 24-26MG TABLET (SACUBITRIL/VALSARTAN) PO SCH (09:00)
[2018-11-05] MEDS: PANTOPRAZOLE 40MG INJ (PROTONIX) (C9113) IV SCH ×2 (09:00→20:26)
--- NOTE | 2018-11-05 11:07 | IPNPDOC ---
Subjective Date Seen The patient was seen on 11/05/18. Subjective Chief Complaint/HPI Pt this morning c/o persistent abd pain, about the same as yesterday. He has no other concerns. General: Denies: Fatigue Constitutional: Denies: Chills, Fever Pulmonary: Denies: Dyspnea, Cough Cardiovascular: Denies: Chest Pain, Palpitations Gastrointestinal: Reports: Abdominal Pain; Denies: Nausea, Vomiting, Diarrhea Neurological: Denies: Weakness Psych: Reports: Mood Normal Objective Physical Examination General Exam: Positive: Cooperative, No Acute Distress Chest Exam: Positive: Normal air movement; Negative: Rhonchi, Wheezing Heart Exam: Positive: Rate Normal, Regular Rhythm, Normal S1, Normal S2 Abdomen Exam: Positive: BS Hypoactive, Soft, Tenderness (diffusely with gentle palpation.), Other (Ostomy with bloody clots.) Extremity Exam: Negative: Edema Assessment /Plan Problems (1) Stricture of sigmoid colon Status: Acute Response to Treatment: Stable Problem Text: 11/05 POD5, GS following. 11/04 -- postop day 4. General surgery is spacing out his IV dilaudid (he is receiving PO dilaudid as well.) Discussed this with patient. Incisions appear to be healing well. 11/03- Post op day 3. GI pathology demonstrating marked mucosal ulceration, transmural inflammation, and marked stenosis. IV toradol and tylenol may have slightly improved his pain. He was gently counseled on taking oral medications and has been tolerating his oral dilaudid adequately so far and is not requiring further narcotic supplementation. He was able to sit up with his legs off the bed in PT yesterday which is already an improvement. 11/02-POD #2 - s/p robotic assisted sigmoid colectomy and diverting colostomy 10/[address] Bedoya Blood clots in Ostomy. Hgb = 8.7 (down from 8.8 yesterday morning). Monitor closely Last dose of Zosyn given yesterday - Not sure if plan to continue abx post-op - Defer to Surgery Not achieving pain control with Dilaudid - Get pain clinic to see for recommendations Still not taking much po - only occasional sips of water On TPN Addendum 11 am: I spoke with Racheal Nobles at [facility] (she discussed with Dr. Charles) and I spoke with Dr. Bedoya. Both suggest trial of single dose of IV Tylenol and IV Toradol for acute post-op pain. Goal is to hopeefully be able to wean the Dilaudid perhaps early next week. (2) Chronic abdominal pain Status: Acute Problem Text: chronic pain 2 chronic pancreatitis +/- colonic stricture remains on TPN via PICC for pancreatic rest/nutrition since 10/23/18 10/25/18: Patient continues to use PRN Dilaudid. He has refused all oral medications. I will defer changing his cardiac meds to from po to IV to Cardiology. Case dw Dr. Garcia-patient cleared for sigmoid colectomy-plan for Mon vs Wed 10/29 vs 10/31 P OR schedule (defer cholecystectomy for future date given high surgical risk at this time) Sigmoidoscopy Findings: A severe stenosis measuring of unknown length x 4 mm (inner diameter) was found at 30 cm proximal to the anus and was non-traversed. 10/22/[address] Vasquez for opinion +/- colonoscopy/biopsy 10/21/18: CT AP: 1. A catheter is present in the gallbladder. 2. There is increased density in the pancreatic region likely representing edema and residual fluid collections. There is no definite new fluid collection. 3. There is thickening of a wall of a small segment of sigmoid colon with surrounding edema that may represent inflammatory bowel disease. 4. There is a small amount of free fluid in the abdomen. Electronically Signed by David Joel MD 10/21/2018 02:49 P DD: David Joel MD 10/21/18 1313 DT: KAYKAY 10/21/18 1350 DS: BEA 10/21/18 1449 10/21/18 1449 [~ rep ct labl] (3) Pneumonia Status: Acute Response to Treatment: Stable Problem Text: 11/02 - s/p 5 Days Vanco - last dose 10/29, s/p 7 days Zosyn - last dose 10/29 - CXR thought to be more consistent with CHF and showed improvement Now with productive cough and high risk for pneumonia due to poor insp neto and difficulty coughing due to pain - currently sats ok and no SOB or fever As above pain clinic to be contacted in hope of achieving better pain control Will need to encourage IS and OOB to prevent pneumonia CXR : Improved pulmonary edema pattern. Persistent small bilateral effusions. Chest X-ray 10/26: Pulmonary edema pattern bilaterally. Cardiomegaly with pacemaker. Small amounts of bilateral pleural fluid. CHF pattern 10/26/18 + Zosyn/vanco for ? PN, WBC 14.4; although no cough/F/C/hypoxia-? WBC related to colitis vs pancreatitis (4) Systolic and diastolic CHF, acute on chronic Status: Chronic Problem Text: 11/04 -- euvolemic today 11/02 - slight ankle edema, but otherwise appears compensated - 11/01/18: appears well compensated. 10/26/18: Patient well compensated this morning. This morning patient had a chest x-ray d/t some chest discomfort. Patient's preliminary chest x-ray appeared to show a right lower lobe pneumonia with increased cephalization of pulmonary vasculature secondary to volume overload and pulmonary edema. Chest xray report deomonstrated Pulmonary edema pattern bilaterally. Cardiomegaly with pacemaker. Small amounts of bilateral pleural fluid. CHF pattern: He was given a one time dose of 40 mg of Lasix IV. IVF were discontinued. Patient was placed on abx to cover for pneumonia. We will continue to monitor 10/25/18: Patient appears well compensated on exam 10/23/18: IVF changed and rate decreased. Patient appears euvolemic on exam Echo 09/03/18: EF 30% Normal sinus rhythm with dual-chamber pacemaker. Appropriate atrial sensing and tracking with consistent ventricular paced. Paced QRS complexes with left bundle branch block QRS configuration. M-mode and two-dimensional echocardiography was performed with pulsed, contin uous wave, color flow and tissue Doppler studies. Moderately dilated left ventricle with borderline hypertrophy. Paradoxical septal wall motion and apical akinesis related to right ventricular paced rhythm. Moderate to moderately severe impairment of global resting systolic function. Mildly dilated left atrium with impairment of LV diastolic function and elevated mean left atrial pressure. Right heart chamber sizes upper limits of normal with right ventricular hypokinesis and Doppler evidence of moderate pulmonary hypertension. Mildly dilated IVC with slightly reduced respiratory collapse suggestive of central venous pressure of approximately 10 - 15 mmHg. Slight aortic valvular sclerosis with adequate cusp separation but premature cusp closure in keeping with reduced forward stroke volume. WILL NEED MONITORING ON i/O DUE TO HX OF CHF (5) CAD (coronary artery disease) Status: Chronic Problem Text: 11/02 - No active symptoms Plavix on hold courtney-operatively and with blood from ostomy, would not restart until resolves. Refusing Amiodarone, Coreg, Statin and all other oral meds (6) Pancreatitis Permanent Comment: ? etiology-favor hyperTG (08/09/18 TG 506), +/- gliptin use (was on stevo) 10/23/18 CA-19-9 24 10/23/18 24 08/10/18 lipase 820 Last Edited By: Hari Hoang MD on Oct 23, 2018 17:54 Status: Acute Problem Text: as per abdominal pain ? etiology-favor hyperTG (08/09/18 TG 506), +/- gliptin use (was on stevo) 10/23/18 CA-19-9 24 10/23/18 24 08/10/18 lipase 820 (7) Depression Status: Chronic Problem Text: refusing oral meds currently (8) DM2 (diabetes mellitus, type 2) Status: Chronic Problem Text: 11/02 - Cont SSI coverage - FSBS running 150 low 200s 10/25/18: We are starting TPN with finger sticks q 6 hrs and sliding scale coverage per protocol Metformin on hold. hypoglycemic this am. poor po intake. monitor glucose levels. add in D5 to IVF if hypoglycemia returns/persists. (9) Malnutrition Status: Chronic Problem Text: 10/26/18: TPN 10/25/18: TPN ordered today. We will monitor BGs per protocol 10/24 -- PICC line in place, should initiate TPN tomorrow. Nutritional assessment has been in the chart, but does not make recommendations re: TPN, and a formal consult for TPN recommendations was ordered. Plan/VTE VTE Prophylaxis Ordered?: Yes (SCDs - No anticoag post-op due to current blood from ostomy) VS, I&O, 24H, Fishbone Vital Signs/I&O Vital Signs Date Time Temp Pulse Resp B/P (MAP) Pulse Ox O2 Delivery O2 Flow Rate FiO2 11/05/18 08:00 97.2 95 18 121/86 (98) 99 1.0 I&O- Last 24 Hours up to 6 AM 11/05/18 06:00 Intake Total 1060 ml Output Total 970 ml Balance 90 ml Laboratory Data 24H LABS Laboratory Tests 2 11/04/18 11:48: Bedside Glucose (Misc Panel) 175H 3/31/19 17:31: Bedside Glucose (Misc Panel) 147H 11/04/18 23:59: Bedside Glucose (Misc Panel) 154H 11/05/18 06:27: Bedside Glucose (Misc Panel) 171H Microbiology Microbiology 10/29/18 MRSA Screen - Final, Complete Staph.aureus Methicillin Resis DESEAN LUQUE PA-C Nov 05, 2018 11:07 Hari Hoang M.D. Nov 05, 2018 15:58
[2018-11-05 12:00] VITALS: BP 130/88
[2018-11-05 16:00] VITALS: BP 129/90
[2018-11-05] MEDS ORDERED: FAT EMULSION IV 20% 500 ML IV SCH (18:00)
[2018-11-05] MEDS ORDERED: MULTIVITAMIN -ADULT INJECTION 10 ML, CR/CU/SE/MN/ZN INJ 1 ML in AMINO AC/ELECTROLYTE/DE... IV SCH (18:00)
[2018-11-05 20:00] VITALS: BP 125/87
[2018-11-06] VITALS: BP 122/76
[2018-11-06] MEDS: HumaLOG INSULIN (NovoLOG) PER UNIT SC SCH ×4 (00:12→17:53)
[2018-11-06] MEDS: HYDROmorphone 2 MG TAB PO SCH ×4 (00:13→17:54)
[2018-11-06 04:00] VITALS: BP 121/82
[2018-11-06] MEDS: ONDANSETRON 4MG/2ML VIAL (J2405) IV PRN (04:59)
[2018-11-06] MEDS: HYDROMORPHONE HCL 0.5 MG/ 0.5 ML SYRINGE (J1170 PER 1) IV PRN ×4 (05:00→23:14)
[2018-11-06] MEDS: SODIUM CHLORIDE 0.9% INJ 10 ML SYR IV SCH ×2 (05:56→17:55)
[2018-11-06 05:57] LABS: BASO % 0.6 % (0.0-1.0); EOS # 0.4 10^3/uL (0.0-0.50); EOS % 5.5 % (0.0-3.0); HEMATOCRIT 25.1 % (42.0-52.0); HEMOGLOBIN 7.8 g/dl (13.5-17.5); LYMPH # 0.8 10^3/uL (1.5-4.5); LYMPH % 11.4 % (24.0-44.0); MEAN CORPUSCULAR HEMOGLOBIN 26.8 pg (27.0-33.0); MEAN CORPUSCULAR HGB CONC 31.1 g/dl (32.0-36.5); MEAN CORPUSCULAR VOLUME 86.3 fl (80.0-96.0); MONO # 0.6 10^3/uL (0.0-0.8); MONO % 9.1 % (0.0-5.0); NEUTROPHILS # 5.2 10^3/uL (1.8-7.7); NEUTROPHILS % 73.1 % (36.0-66.0); PLATELET COUNT, AUTOMATED 188 10^3/uL (150-450); RED BLOOD COUNT 2.91 10^6/uL (4.30-6.10)
[2018-11-06 06:16] LABS: ALBUMIN 1.8 GM/DL (3.2-5.2); ALT/SGPT < 6 U/L (12-78); BILIRUBIN,TOTAL 0.3 MG/DL (0.2-1.0); BLOOD UREA NITROGEN 20 MG/DL (7-18); CALCIUM LEVEL 8.8 MG/DL (8.5-10.1); CARBON DIOXIDE LEVEL 23 MEQ/L (21-32); CHLORIDE LEVEL 104 MEQ/L (98-107); CREATININE FOR GFR 0.67 MG/DL (0.70-1.30); GLOMERULAR FILTRATION RATE > 60.0 (>56); GLUCOSE, FASTING 198 MG/DL (70-100); POTASSIUM SERUM 4.7 MEQ/L (3.5-5.1); SODIUM LEVEL 131 MEQ/L (136-145); TOTAL PROTEIN 6.2 GM/DL (6.4-8.2)
[2018-11-06] MEDS: SUCRALFATE 1 GM TAB PO SCH ×4 (07:30→20:14)
[2018-11-06 08:00] VITALS: BP 136/97
--- NOTE | 2018-11-06 08:48 | IPNPDOC ---
Subjective Date Seen The patient was seen on 11/06/18. Subjective Chief Complaint/HPI pain control better per patient, but c/o nausea so he is not eating. Having blood from ostomy - not sure when this started. Denies CP, but has been feeling SOB chronically since admission. Constitutional: Denies: Chills, Fever Pulmonary: Reports: Dyspnea; Denies: Cough Cardiovascular: Denies: Chest Pain, Palpitations Gastrointestinal: Reports: Nausea, Abdominal Pain, Hematochezia (Dark blood coming from ostomy); Denies: Vomiting, Diarrhea, Constipation Objective Physical Examination General Exam: Positive: Alert, Cooperative, No Acute Distress (resting comfortably) Chest Exam: Positive: Normal air movement; Negative: Rales, Rhonchi, Wheezing Heart Exam: Positive: Rate Normal, Regular Rhythm, Normal S1, Normal S2 Abdomen Exam: Positive: BS Hypoactive, Soft, Other (Dark blood in ostomy) Extremity Exam: Negative: Edema Assessment /Plan Problems (1) GI bleeding Status: Acute Problem Text: 11/06 hgb 7.8; therefore, + 2u I spoke with Dr. Bedoya who examined the ostomy and states the bleeding is not at the ostomy site - He feels the bleeding is further up in the colon itself. He will discuss case with Dr. Vasquez who is in the OR today to decide if he should be scoped today by Dr. Vasquez or tomorrow by Dr. Bedoya. (2) Anorexia Status: Chronic Problem Text: refusing all po meds x Dilaudid 2 to "RLQ abdominal pain" 11/06 EGD planned although favor pain 2 ischemic bowel/pacreatitis (3) Stricture of sigmoid colon Status: Acute Response to Treatment: Stable Problem Text: favoring 2 previous non-occlusive ischemic colitis 10/31: robotic assisted sigmoid colectomy and diverting colostomy pathology: segment of sigmoid colon with a segment of marked mucosal ulceration, transmural inflammation and marked stenosis, no malignancy is identified. (4) Chronic abdominal pain Status: Acute Problem Text: 11/06 - Getting Dilaudid 6 mg po Q6H scheduled and still taking Dilaudid 0.4 mg IV QH - this is prn, but taking it every 6H - plan to wean IV; describes 05/16 RLQ pain-gave ketorolac 30 IV x 1 Change Zofran to scheduled to try to improve chronic nausea. PLan to perform EGD as well as Colonoscopy today or tomorrow as above Cont BID IV PPI chronic pain 2 chronic pancreatitis +/- colonic stricture +/- OUD remains on TPN via PICC for pancreatic rest/nutrition since 10/23/18 10/25/18: Patient continues to use PRN Dilaudid. He has refused all oral medications. I will defer changing his cardiac meds to from po to IV to Cardiology. Case dw Dr. Garcia-patient cleared for sigmoid colectomy-plan for Mon vs Wed 10/29 vs 10/31 P OR schedule (defer cholecystectomy for future date given high surgical risk at this time) Sigmoidoscopy Findings: A severe stenosis measuring of unknown length x 4 mm (inner diameter) was found at 30 cm proximal to the anus and was non-traversed. 10/22/[address] Vasquez for opinion +/- colonoscopy/biopsy 10/21/18: CT AP: 1. A catheter is present in the gallbladder. 2. There is increased density in the pancreatic region likely representing edema and residual fluid collections. There is no definite new fluid collection. 3. There is thickening of a wall of a small segment of sigmoid colon with surrounding edema that may represent inflammatory bowel disease. 4. There is a small amount of free fluid in the abdomen. Electronically Signed by David Joel MD 10/21/2018 02:49 P DD: David Joel MD 10/21/18 1313 DT: KAYKAY 10/21/18 1350 DS: BEA 10/21/18 1449 10/21/18 1449 [~ rep ct labl] (5) CAD (coronary artery disease) Status: Chronic Problem Text: 11/05 - Continues to refuse all oral meds including Amiodarone, Entresto, Coreg, Crestor due to "nausea" Plavix remains on hold due to GI bleeding. change Zofran to scheduled in effort to control Nausea. I would try to get him to take Amiodarone, Coreg and Crestor but hold Entresto for now. 11/02 - No active symptoms Plavix on hold courtney-operatively and with blood from ostomy, would not restart until resolves. Refusing Amiodarone, Coreg, Statin and all other oral meds (6) Pneumonia Status: Acute Response to Treatment: Stable Problem Text: 11/02 - s/p 5 Days Vanco - last dose 10/29, s/p 7 days Zosyn - last dose 10/29 - CXR thought to be more consistent with CHF and showed improvement Now with productive cough and high risk for pneumonia due to poor insp neto and difficulty coughing due to pain - currently sats ok and no SOB or fever As above pain clinic to be contacted in hope of achieving better pain control Will need to encourage IS and OOB to prevent pneumonia CXR : Improved pulmonary edema pattern. Persistent small bilateral effusions. Chest X-ray 10/26: Pulmonary edema pattern bilaterally. Cardiomegaly with pacemaker. Small amounts of bilateral pleural fluid. CHF pattern 10/26/18 + Zosyn/vanco for ? PN, WBC 14.4; although no cough/F/C/hypoxia-? WBC related to colitis vs pancreatitis (7) Systolic and diastolic CHF, acute on chronic Status: Chronic Problem Text: Remains euvolemic on current regimen Echo 09/03/18: EF 30% Normal sinus rhythm with dual-chamber pacemaker. Appropriate atrial sensing and tracking with consistent ventricular paced. Paced QRS complexes with left bundle branch block QRS configuration. M-mode and two-dimensional echocardiography was performed with pulsed, continuous wave, color flow and tissue Doppler studies. Moderately dilated left ventricle with borderline hypertrophy. Paradoxical septal wall motion and apical akinesis related to right ventricular paced rhythm. Moderate to moderately severe impairment of global resting systolic function. Mildly dilated left atrium with impairment of LV diastolic function and elevated mean left atrial pressure. Right heart chamber sizes upper limits of normal with right ventricular hypokinesis and Doppler evidence of moderate pulmonary hypertension. Mildly dilated IVC with slightly reduced respiratory collapse suggestive of central venous pressure of approximately 10 - 15 mmHg. Slight aortic valvular sclerosis with adequate cusp separation but premature cusp closure in keeping with reduced forward stroke volume. (8) Pancreatitis Permanent Comment: ? etiology-favor hyperTG (08/09/18 TG 506), +/- gliptin use (was on stevo) 10/23/18 CA-19-9 24 10/23/18 24 08/10/18 lipase 820 Last Edited By: Hari Hoang MD on Oct 23, 2018 17:54 Status: Acute Problem Text: as per abdominal pain ? etiology-favor hyperTG (08/09/18 TG 506), +/- gliptin use (was on stevo) 10/23/18 CA-19-9 24 10/23/18 24 08/10/18 lipase 820 (9) DM2 (diabetes mellitus, type 2) Status: Chronic Problem Text: 11/02 - Cont SSI coverage - FSBS running 150 low 200s 10/25/18: We are starting TPN with finger sticks q 6 hrs and sliding scale coverage per protocol Metformin on hold. hypoglycemic this am. poor po intake. monitor glucose levels. add in D5 to IVF if hypoglycemia returns/persists. (10) Malnutrition Status: Chronic Problem Text: TPN as per chronic abdominal pain Plan/VTE VTE Prophylaxis Ordered?: Yes (SCDs - No anticoag post-op due to current blood from ostomy) VS, I&O, 24H, Fishbone Vital Signs/I&O Vital Signs Date Time Temp Pulse Resp B/P (MAP) Pulse Ox O2 Delivery O2 Flow Rate FiO2 11/06/18 06:39 16 11/06/18 04:00 1.0 11/06/18 04:00 97.0 102 121/82 (95) 98 I&O- Last 24 Hours up to 6 AM 11/06/18 06:00 Intake Total 960 ml Output Total 1805 ml Balance -845 ml Laboratory Data 24H LABS Laboratory Tests 2 11/05/18 11:47: Bedside Glucose (Misc Panel) 174H 11/05/18 17:30: Bedside Glucose (Misc Panel) 160H 11/06/18 00:11: Bedside Glucose (Misc Panel) 150H 11/06/18 05:31: Immature Granulocyte % (Auto) 0.3, White Blood Count 7.0, Red Blood Count 2.91L, Hemoglobin 7.8L, Hematocrit 25.1L, Mean Corpuscular Volume 86.3, Mean Corpusc ular Hemoglobin 26.8L, Mean Corpuscular Hemoglobin Concent 31.1L, Red Cell Distribution Width 16.4H, Platelet Count 188, Neutrophils (%) (Auto) 73.1H, Lymphocytes (%) (Auto) 11.4L, Monocytes (%) (Auto) 9.1H, Eosinophils (%) (Auto) 5.5H, Basophils (%) (Auto) 0.6, Neutrophils # (Auto) 5.2, Lymphocytes # (Auto) 0.8L, Monocytes # (Auto) 0.6, Eosinophils # (Auto) 0.4, Basophils # (Auto) 0.0, Nucleated Red Blood Cells % (auto) 0.0, Anion Gap 4L, Glomerular Filtration Rate > 60.0, Blood Urea Nitrogen 20H, Creatinine 0.67L, Sodium Level 131L, Potassium Level 4.7, Chloride Level 104, Carbon Dioxide Level 23, Calcium Level 8.8, Aspartate Amino Transf (AST/SGOT) 6L, Alanine Aminotransferase (ALT/SGPT) < 6L, Alkaline Phosphatase 122H, Total Bilirubin 0.3, Total Protein 6.2L, Albumin 1.8L, Albumin/Globulin Ratio 0.41L CBC/BMP Laboratory Tests 11/06/18 05:31 Red Blood Count 2.91 L, Mean Corpuscular Volume 86.3, Mean Corpuscular Hemoglobin 26.8 L, Mean Corpuscular Hemoglobin Concent 31.1 L, Red Cell Distribution Width 16.4 H, Neutrophils (%) (Auto) 73.1 H, Lymphocytes (%) (Auto) 11.4 L, Monocytes (%) (Auto) 9.1 H, Eosinophils (%) (Auto) 5.5 H, Basophils (%) (Auto) 0.6, Neutrophils # (Auto) 5.2, Lymphocytes # (Auto) 0.8 L, Monocytes # (Auto) 0.6, Eosinophils # (Auto) 0.4, Basophils # (Auto) 0.0, Calcium Level 8.8, Aspartate Amino Transf (AST/SGOT) 6 L, Alanine Aminotransferase (ALT/SGPT) < 6 L, Alkaline Phosphatase 122 H, Total Bilirubin 0.3, Total Protein 6.2 L, Albumin 1.8 L Microbiology Microbiology 10/29/18 MRSA Screen - Final, Complete Staph.aureus Methicillin Resis DANIEL TOUSSAINT PA-C Nov 06, 2018 08:48 Hari Hoang M.D. Nov 06, 2018 16:07
--- NOTE | 2018-11-06 08:48 | IPNPDOC ---
Text Note Date of Service The patient was seen on 11/06/18. NOTE No acute events overnight. His abd pain is slightly improved again today. He is working well with PT. VSSAF NAD abd - soft, non distended, no rebound or guarding, tender to palpation epigastric only, ostomy is pink with some maroon output from the ostomy labs - see below A) 48y/o male with complicated medical history, and a benign appearing sigmoid stricture s/p RA sigmoidectomy with end colostomy recent [place] CAD chronic pancreatitis acalculous cholecystitis likely secondary to the pancreatitis with cholecystostomy drain in place. GI bleed with maroon colored stool P) clq diet as tolerated mag citrate today, and fleets enemas plan for EGD and colonoscopy tomorrow AM monitor ostomy output and labs continuing to wean his dilaudid IV PT OOB to chair ambulate Cody Bedoya DO VS,Fishbone, I+O VS, Fishbone, I+O Laboratory Tests 11/06/18 05:31 Red Blood Count 2.91 L, Mean Corpuscular Volume 86.3, Mean Corpuscular Hemo globin 26.8 L, Mean Corpuscular Hemoglobin Concent 31.1 L, Red Cell Distribution Width 16.4 H, Neutrophils (%) (Auto) 73.1 H, Lymphocytes (%) (Auto) 11.4 L, Monocytes (%) (Auto) 9.1 H, Eosinophils (%) (Auto) 5.5 H, Basophils (%) (Auto) 0.6, Neutrophils # (Auto) 5.2, Lymphocytes # (Auto) 0.8 L, Monocytes # (Auto) 0.6, Eosinophils # (Auto) 0.4, Basophils # (Auto) 0.0, Calcium Level 8.8, Aspartate Amino Transf (AST/SGOT) 6 L, Alanine Aminotransferase (ALT/SGPT) < 6 L, Alkaline Phosphatase 122 H, Total Bilirubin 0.3, Total Protein 6.2 L, Albumin 1.8 L Vital Signs Date Time Temp Pulse Resp B/P (MAP) Pulse Ox O2 Delivery O2 Flow Rate FiO2 11/06/18 08:00 97.5 105 18 136/97 (110) 98 1.0 I&O- Last 24 Hours up to 6 AM 11/06/18 06:00 Intake Total 960 ml Output Total 1805 ml Balance -845 ml LAVINIA BEDOYA DO Nov 06, 2018 08:48
[2018-11-06] MEDS ORDERED: LISINOPRIL 5 MG TAB PO SCH (09:00)
[2018-11-06] MEDS: CARVedilol 6.25 MG TAB PO SCH ×2 (09:00→20:14)
[2018-11-06] MEDS: AMIODARONE 200 MG TAB (PACERONE) PO SCH (09:00)
[2018-11-06] MEDS: ROSUVASTATIN 10 MG TAB (CRESTOR) PO SCH (09:00)
[2018-11-06] MEDS: MULTIVITAMINS/MINERALS THERAP 1 TAB PO SCH (09:00)
[2018-11-06 09:07] LABS: MAGNESIUM LEVEL 1.7 MG/DL (1.8-2.4)
[2018-11-06] MEDS: FLEET ENEMA PR PRN (09:59)
[2018-11-06] MEDS: PANTOPRAZOLE 40MG INJ (PROTONIX) (C9113) IV SCH ×2 (09:59→20:14)
[2018-11-06] MEDS ORDERED: MAGNESIUM CITRATE 300 ML BTL PO ONE (10:00)
[2018-11-06 12:00] VITALS: BP 117/86
[2018-11-06 13:03] LABS: HEMATOCRIT 26.3 % (42.0-52.0); HEMOGLOBIN 7.9 g/dl (13.5-17.5); MEAN CORPUSCULAR HEMOGLOBIN 26.8 pg (27.0-33.0); MEAN CORPUSCULAR VOLUME 89.2 fl (80.0-96.0); PLATELET COUNT, AUTOMATED 173 10^3/uL (150-450); RED BLOOD COUNT 2.95 10^6/uL (4.30-6.10); WHITE BLOOD COUNT 6.7 10^3/uL (4.0-10.0)
[2018-11-06] MEDS: ONDANSETRON 4MG/2ML VIAL (J2405) IV SCH ×2 (13:29→20:14)
[2018-11-06 16:00] VITALS: BP 130/85
[2018-11-06] MEDS ORDERED: KETOROLAC 30 MG/ML VIAL (J1885) IV ONE (16:15)
[2018-11-06] MEDS ORDERED: ONDANSETRON 4MG/2ML VIAL (J2405) IV ONE (17:00)
[2018-11-06] MEDS ORDERED: AMINO AC/ELECTROLYTE/DEX/CALC 2,000 ML IV SCH (18:00)
[2018-11-06] MEDS ORDERED: FAT EMULSION IV 20% 500 ML IV SCH (18:00)
[2018-11-06 19:11] LABS: BASO # 0.1 10^3/uL (0.0-0.2); BASO % 0.7 % (0.0-1.0); EOS # 0.4 10^3/uL (0.0-0.50); EOS % 4.8 % (0.0-3.0); HEMATOCRIT 33.4 % (42.0-52.0); HEMOGLOBIN 10.4 g/dl (13.5-17.5); LYMPH % 11.3 % (24.0-44.0); MEAN CORPUSCULAR HEMOGLOBIN 27.2 pg (27.0-33.0); MEAN CORPUSCULAR HGB CONC 31.1 g/dl (32.0-36.5); MEAN CORPUSCULAR VOLUME 87.2 fl (80.0-96.0); MONO # 0.8 10^3/uL (0.0-0.8); MONO % 9.6 % (0.0-5.0); NEUTROPHILS # 6.2 10^3/uL (1.8-7.7); NEUTROPHILS % 73.2 % (36.0-66.0); PLATELET COUNT, AUTOMATED 178 10^3/uL (150-450); RED BLOOD COUNT 3.83 10^6/uL (4.30-6.10); WHITE BLOOD COUNT 8.5 10^3/uL (4.0-10.0)
[2018-11-06 20:00] VITALS: BP 120/88
[2018-11-07] VITALS (7 sets, daily range): BP systolic 104–130; BP diastolic 68–94
[2018-11-07] MEDS: ONDANSETRON 4MG/2ML VIAL (J2405) IV SCH ×4 (01:50→20:25)
[2018-11-07] MEDS ORDERED: ONDANSETRON 4MG/2ML VIAL (J2405) IV ONE (05:15)
[2018-11-07 05:19] LABS: HEMOGLOBIN 10.1 g/dl (13.5-17.5); MEAN CORPUSCULAR HGB CONC 31.6 g/dl (32.0-36.5); MEAN CORPUSCULAR VOLUME 85.6 fl (80.0-96.0); PLATELET COUNT, AUTOMATED 189 10^3/uL (150-450); RED BLOOD COUNT 3.74 10^6/uL (4.30-6.10); WHITE BLOOD COUNT 7.8 10^3/uL (4.0-10.0)
[2018-11-07] MEDS: HYDROmorphone 2 MG TAB PO SCH ×2 (05:28)
[2018-11-07] MEDS: HYDROMORPHONE HCL 0.5 MG/ 0.5 ML SYRINGE (J1170 PER 1) IV PRN (05:32)
[2018-11-07] MEDS: SODIUM CHLORIDE 0.9% INJ 10 ML SYR IV SCH ×2 (05:33→18:21)
[2018-11-07 05:41] LABS: ALT/SGPT 7 U/L (12-78); BILIRUBIN,TOTAL 0.4 MG/DL (0.2-1.0); BLOOD UREA NITROGEN 22 MG/DL (7-18); CALCIUM LEVEL 8.9 MG/DL (8.5-10.1); CARBON DIOXIDE LEVEL 21 MEQ/L (21-32); CHLORIDE LEVEL 105 MEQ/L (98-107); CREATININE FOR GFR 0.68 MG/DL (0.70-1.30); GLOMERULAR FILTRATION RATE > 60.0 (>56); GLUCOSE, FASTING 191 MG/DL (70-100); POTASSIUM SERUM 4.9 MEQ/L (3.5-5.1); SODIUM LEVEL 132 MEQ/L (136-145); TOTAL PROTEIN 6.5 GM/DL (6.4-8.2)
[2018-11-07] MEDS: HumaLOG INSULIN (NovoLOG) PER UNIT SC SCH ×5 (05:56→23:46)
[2018-11-07] MEDS: FLEET ENEMA PR PRN (06:00)
[2018-11-07] MEDS ORDERED: LIDOCAINE 2% INJ 100 MG/5 ML SDV (FOR ANES.) As Ordered ONE (07:05)
[2018-11-07] MEDS ORDERED: PROPOFOL 500 MG/50 ML VIAL As Ordered ONE (07:06)
--- NOTE | 2018-11-07 07:16 | IPNPDOC ---
Text Note Date of Service The patient was seen on 11/07/18. NOTE No acute events overnight. Plan is for OR this am for EGD and colonoscopy due to melanotic stools and drop in Hgb. VSSAF NAD abd - soft, non distended, no rebound or guarding, tender to palpation epigastric only, ostomy is pink with some maroon output from the ostomy labs - see below A) 48y/o male with complicated medical history, and a benign appearing sigmoid stricture s/p RA sigmoidectomy with end colostomy recent [place] CAD chronic pancreatitis acalculous cholecystitis likely secondary to the pancreatitis with cholecystostomy drain in place. GI bleed with maroon colored stool P) OPP for EGD and colonoscopy this am no changes to H+P. Cody Bedoya DO VS,Kami, I+O VS, Kami, I+O Laboratory Tests 11/06/18 12:50 Red Blood Count 2.95 L, Mean Corpuscular Volume 89.2, Mean Corpuscular Hemoglobin 26.8 L, Mean Corpuscular Hemoglobin Concent 30.0 L, Red Cell Distribution Width 16.5 H 11/06/18 19:00 Red Blood Count 3.83 L, Mean Corpuscular Volume 87.2, Mean Corpuscular Hemoglobin 27.2, Mean Corpuscular Hemoglobin Concent 31.1 L, Red Cell Distribution Width 16.3 H, Neutrophils (%) (Auto) 73.2 H, Lymphocytes (%) (Auto) 11.3 L, Monocytes (%) (Auto) 9.6 H, Eosinophils (%) (Auto) 4.8 H, Basophils (%) (Auto) 0.7, Neutrophils # (Auto) 6.2, Lymphocytes # (Auto) 1.0 L, Monocytes # (Auto) 0.8, Eosinophils # (Auto) 0.4, Basophils # (Auto) 0.1 11/07/18 04:56 Red Blood Count 3.74 L, Mean Corpuscular Volume 85.6, Mean Corpuscular Hemoglobin 27.0, Mean Corpuscular Hemoglobin Concent 31.6 L, Red Cell Distribution Width 16.5 H, Calcium Level 8.9, Aspartate Amino Transf (AST/SGOT) 8, Alanine Aminotransferase (ALT/SGPT) 7 L, Alkaline Phosphatase 127 H, Total Bilirubin 0.4, Total Protein 6.5, Albumin 2.0 L Vital Signs Date Time Temp Pulse Resp B/P (MAP) Pulse Ox O2 Delivery O2 Flow Rate FiO2 11/07/18 05:54 16 11/07/18 04:00 1.0 11/07/18 04:00 97.6 85 110/68 (82) 98 I&O- Last 24 Hours up to 6 AM 11/07/18 05:59 Intake Total 1760 ml Output Total 1450 ml Balance 310 ml LAVINIA BEDOYA DO Nov 07, 2018 07:16
[2018-11-07] MEDS: SUCRALFATE 1 GM TAB PO SCH ×4 (07:30→21:00)
[2018-11-07] MEDS: HYDROmorphone (DILAUDID) 4 MG TAB PO SCH ×3 (08:20→20:24)
[2018-11-07] MEDS: CARVedilol 6.25 MG TAB PO SCH ×2 (09:00→20:25)
[2018-11-07] MEDS: ROSUVASTATIN 10 MG TAB (CRESTOR) PO SCH (09:00)
[2018-11-07] MEDS: AMIODARONE 200 MG TAB (PACERONE) PO SCH (09:00)
[2018-11-07] MEDS: PANTOPRAZOLE 40MG INJ (PROTONIX) (C9113) IV SCH ×2 (09:39→20:25)
[2018-11-07] MEDS: PROMETHAZINE 25 MG TAB PO PRN (09:40)
--- NOTE | 2018-11-07 10:16 | IPNPDOC ---
Subjective Date Seen The patient was seen on 11/07/18. Subjective Chief Complaint/HPI Vomiting last night and this am. Constitutional: Denies: Chills, Fever Pulmonary: Reports: Dyspnea (improved today); Denies: Cough Cardiovascular: Denies: Chest Pain Gastrointestinal: Reports: Nausea, Vomiting, Abdominal Pain, Hematochezia (blood in ostomy); Denies: Diarrhea, Constipation Objective Physical Examination General Exam: Positive: Alert (awake and alert and appears comfortable this am), Cooperative, No Acute Distress Chest Exam: Positive: Normal air movement; Negative: Rales, Rhonchi, Wheezing Heart Exam: Positive: Rate Normal, Regular Rhythm, Normal S1, Normal S2 Abdomen Exam: Positive: BS Hypoactive, Soft, Tenderness, Other (brown stool and red blood in ostomy bag) Extremity Exam: Negative: Edema Assessment /Plan Problems (1) GI bleeding Status: Acute Problem Text: 11/07 - Dr. Bedoya saw patient this am and has postponed his EGD/Colonoscopy until Monday due to vomiting and stool in ostomy. He with plan to prep patient slowly over next couple days. before. Hgb improved with 2 units PRBCs 11/06 hgb 7.8; therefore, + 2u I spoke with Dr. Bedoya who examined the ostomy and states the bleeding is not at the ostomy site - He feels the bleeding is further up in the colon itself. He will discuss case with Dr. Vasquez who is in the OR today to decide if he should be scoped today by Dr. Vasquez or tomorrow by Dr. Bedoya. (2) Chronic abdominal pain Status: Acute Problem Text: 11/06 - Getting Dilaudid 6 mg po Q6H scheduled and still taking Dilaudid 0.4 mg IV QH - this is prn, but taking it every 6H I adjusted timing of po Dilaudid today to stagger with IV Dilaudid Still with n/v despite scheduled Zofran Phenergan ordered by Dr. Bedoya Cont BID IV PPI Refusing Carafate that has been ordered chronic pain 2 chronic pancreatitis +/- colonic stricture +/- OUD remains on TPN via PICC for pancreatic rest/nutrition since 10/23/18 10/25/18: Patient continues to use PRN Dilaudid. He has refused all oral medications. I will defer changing his cardiac meds to from po to IV to Cardiology. Case dw Dr. Garcia-patient cleared for sigmoid colectomy-plan for Mon vs Wed 10/29 vs 10/31 P OR schedule (defer cholecystectomy for future date given high surgical risk at this time) Sigmoidoscopy Findings: A severe stenosis measuring of unknown length x 4 mm (inner diameter) was found at 30 cm proximal to the anus and was non-traversed. 10/22/[address] Vasquez for opinion +/- colonoscopy/biopsy 10/21/18: CT AP: 1. A catheter is present in the gallbladder. 2. There is increased density in the pancreatic region likely representing edema and residual fluid collections. There is no definite new fluid collection. 3. There is thickening of a wall of a small segment of sigmoid colon with surrounding edema that may represent inflammatory bowel disease. 4. There is a small amount of free fluid in the abdomen. Electronically Signed by David Joel MD 10/21/2018 02:49 P DD: David Joel MD 10/21/18 1313 DT: KAYKAY 10/21/18 1350 DS: BEA 10/21/18 1449 10/21/18 1449 [~ rep ct labl] (3) CAD (coronary artery disease) Status: Chronic Problem Text: H/O recent [place] 11/07- Continues to refuse all oral meds including Amiodarone, Coreg, Crestor due to "nausea" Plavix remains on hold due to GI bleeding. Entresto d/c'd due to GI bleed to prevent hypotension. Lisinopril given 11/06 but I will hold this as well until proven to remain hemodynamically stable 11/02 - No active symptoms Plavix on hold courtney-operatively and with blood from ostomy, would not restart until resolves. Refusing Amiodarone, Coreg, Statin and all other oral meds (4) Stricture of sigmoid colon Status: Acute Response to Treatment: Stable Problem Text: favoring 2 previous non-occlusive ischemic colitis 10/31: robotic assisted sigmoid colectomy and diverting colostomy pathology: segment of sigmoid colon with a segment of marked mucosal ulceration, transmural inflammation and marked stenosis, no malignancy is identified. (5) Anorexia Status: Chronic Problem Text: refusing all po meds x Dilaudid 2 to "RLQ abdominal pain" 11/06 EGD planned although favor pain 2 ischemic bowel/pacreatitis (6) Pneumonia Status: Acute Response to Treatment: Stable Problem Text: 11/02 - s/p 5 Days Vanco - last dose 10/29, s/p 7 days Zosyn - last dose 10/29 - CXR thought to be more consistent with CHF and showed improvement Now with productive cough and high risk for pneumonia due to poor insp neto and difficulty coughing due to pain - currently sats ok and no SOB or fever As above pain clinic to be contacted in hope of achieving better pain control Will need to encourage IS and OOB to prevent pneumonia CXR : Improved pulmonary edema pattern. Persistent small bilateral effusions. Chest X-ray 10/26: Pulmonary edema pattern bilaterally. Cardiomegaly with pacemaker. Small amounts of bilateral pleural fluid. CHF pattern 10/26/18 + Zosyn/vanco for ? PN, WBC 14.4; although no cough/F/C/hypoxia-? WBC related to colitis vs pancreatitis (7) Systolic and diastolic CHF, acute on chronic Status: Chronic Problem Text: Remains euvolemic on current regimen Echo 09/03/18: EF 30% Normal sinus rhythm with dual-chamber pacemaker. Appropriate atrial sensing and tracking with consistent ventricular paced. Paced QRS complexes with left bundle branch block QRS configuration. M-mode and two-dimensional echocardiography was performed with pulsed, continuous wave, color flow and tissue Doppler studies. Moderately dilated left ventricle with borderline hypertrophy. Paradoxical septal wall motion and apical akinesis related to right ventricular paced rh ythm. Moderate to moderately severe impairment of global resting systolic function. Mildly dilated left atrium with impairment of LV diastolic function and elevated mean left atrial pressure. Right heart chamber sizes upper limits of normal with right ventricular hypokinesis and Doppler evidence of moderate pulmonary hypertension. Mildly dilated IVC with slightly reduced respiratory collapse suggestive of central venous pressure of approximately 10 - 15 mmHg. Slight aortic valvular sclerosis with adequate cusp separation but premature cusp closure in keeping with reduced forward stroke volume. (8) Pancreatitis Permanent Comment: ? etiology-favor hyperTG (08/09/18 TG 506), +/- gliptin use (was on stevo) 10/23/18 CA-19-9 24 10/23/18 24 08/10/18 lipase 820 Last Edited By: Hari Hoang MD on Oct 23, 2018 17:54 Status: Acute Problem Text: as per abdominal pain ? etiology-favor hyperTG (08/09/18 TG 506), +/- gliptin use (was on stevo) 10/23/18 CA-19-9 24 10/23/18 24 08/10/18 lipase 820 (9) DM2 (diabetes mellitus, type 2) Status: Chronic Problem Text: 11/02 - Cont SSI coverage - FSBS running 150 low 200s 10/25/18: We are starting TPN with finger sticks q 6 hrs and sliding scale coverage per protocol Metformin on hold. hypoglycemic this am. poor po intake. monitor glucose levels. add in D5 to IVF if hypoglycemia returns/persists. (10) Malnutrition Status: Chronic Problem Text: TPN as per chronic abdominal pain Plan/VTE VTE Prophylaxis Ordered?: Yes (SCD/TEDS) VTE Exclusion Pharmacological: Active Bleeding VS, I&O, 24H, Fishbone Vital Signs/I&O Vital Signs Date Time Temp Pulse Resp B/P (MAP) Pulse Ox O2 Delivery O2 Flow Rate FiO2 11/07/18 08:20 18 98 1.0 11/07/18 07:50 97.8 109 130/94 (106) I&O- Last 24 Hours up to 6 AM 11/07/18 06:00 Intake Total 1760 ml Output Total 1660 ml Balance 100 ml Laboratory Data 24H LABS Laboratory Tests 2 11/06/18 11:54: Bedside Glucose (Misc Panel) 202H 11/06/18 12:50: Nucleated Red Blood Cells % (auto) 0.0 11/06/18 17:30: Bedside Glucose (Misc Panel) 169H 11/06/18 19:00: Nucleated Red Blood Cells % (auto) 0.0, Immature Granulocyte % (Auto) 0.4, White Blood Count 8.5, Red Blood Count 3.83L, Hemoglobin 10.4#L, Hematocrit 33.4L, Mean Corpuscular Volume 87.2, Mean Corpuscular Hemoglobin 27.2, Mean Corpuscular Hemoglobin Concent 31.1L, Red Cell Distribution Width 16.3H, Platelet Count 178, Neutrophils (%) (Auto) 73.2H, Lymphocytes (%) (Auto) 11.3L, Monocytes (%) (Auto) 9.6H, Eosinophils (%) (Auto) 4.8H, Basophils (%) (Auto) 0.7, Neutrophils # (Auto) 6.2, Lymphocytes # (Auto) 1.0L, Monocytes # (Auto) 0.8, Eosinophils # (Auto) 0.4, Basophils # (Auto) 0.1 11/07/18 01:53: Bedside Glucose (Misc Panel) 164H 11/07/18 04:56: Nucleated Red Blood Cells % (auto) 0.0, Anion Gap 6L, Glomerular Filtration Rate > 60.0, Blood Urea Nitrogen 22H, Creatinine 0.68L, Sodium Level 132L, Potassium Level 4.9, Chloride Level 105, Carbon Dioxide Level 21, Calcium Level 8.9, Aspartate Amino Transf (AST/SGOT) 8, Alanine Aminotransferase (ALT/SGPT) 7L, Alkaline Phosphatase 127H, Total Bilirubin 0.4, Total Protein 6.5, Albumin 2.0L, Albumin/Globulin Ratio 0.44L CBC/BMP Laboratory Tests 11/06/18 12:50 Red Blood Count 2.95 L, Mean Corpuscular Volume 89.2, Mean Corpuscular Hemoglobin 26.8 L, Mean Corpuscular Hemoglobin Concent 30.0 L, Red Cell Distribution Width 16.5 H 11/06/18 19:00 Red Blood Count 3.83 L, Mean Corpuscular Volume 87.2, Mean Corpuscular Hemoglobin 27.2, Mean Corpuscular Hemoglobin Concent 31.1 L, Red Cell Distribution Width 16.3 H, Neutrophils (%) (Auto) 73.2 H, Lymphocytes (%) (Auto) 11.3 L, Monocytes (%) (Auto) 9.6 H, Eosinophils (%) (Auto) 4.8 H, Basophils (%) (Auto) 0.7, Neutrophils # (Auto) 6.2, Lymphocytes # (Auto) 1.0 L, Monocytes # (Auto) 0.8, Eosinophils # (Auto) 0.4, Basophils # (Auto) 0.1 11/07/18 04:56 Red Blood Count 3.74 L, Mean Corpuscular Volume 85.6, Mean Corpuscular Hemoglobin 27.0, Mean Corpuscular Hemoglobin Concent 31.6 L, Red Cell Distribution Width 16.5 H, Calcium Level 8.9, Aspartate Amino Transf (AST/SGOT) 8, Alanine Aminotransferase (ALT/SGPT) 7 L, Alkaline Phosphatase 127 H, Total Bilirubin 0.4, Total Protein 6.5, Albumin 2.0 L Microbiology Microbiology 10/29/18 MRSA Screen - Final, Complete Staph.aureus Methicillin Resis DANIEL TOUSSAINT PA-C Nov 07, 2018 10:16
[2018-11-07] MEDS: FLEET ENEMA PR SCH ×2 (15:04→20:25)
[2018-11-07] MEDS ORDERED: MULTIVITAMIN -ADULT INJECTION 10 ML, CR/CU/SE/MN/ZN INJ 1 ML in AMINO AC/ELECTROLYTE/DE... IV SCH (18:00)
[2018-11-07] MEDS ORDERED: FAT EMULSION IV 20% 500 ML IV SCH (18:00)
[2018-11-07] MEDS ORDERED: PILL CRUSHER/CUTTER 1 EACH XX PRN (20:30)
[2018-11-08] MEDS: HYDROmorphone (DILAUDID) 4 MG TAB PO SCH ×4 (02:22→20:12)
[2018-11-08] MEDS: ONDANSETRON 4MG/2ML VIAL (J2405) IV SCH ×4 (02:22→20:11)
[2018-11-08 04:00] VITALS: BP 105/77
[2018-11-08 05:47] LABS: HEMATOCRIT 29.4 % (42.0-52.0); HEMOGLOBIN 9.3 g/dl (13.5-17.5); MEAN CORPUSCULAR HGB CONC 31.6 g/dl (32.0-36.5); MEAN CORPUSCULAR VOLUME 85.5 fl (80.0-96.0); PLATELET COUNT, AUTOMATED 192 10^3/uL (150-450); RED BLOOD COUNT 3.44 10^6/uL (4.30-6.10); WHITE BLOOD COUNT 7.7 10^3/uL (4.0-10.0)
[2018-11-08 06:00] LABS: ALBUMIN 1.8 GM/DL (3.2-5.2); ALT/SGPT < 6 U/L (12-78); BILIRUBIN,TOTAL 0.4 MG/DL (0.2-1.0); BLOOD UREA NITROGEN 20 MG/DL (7-18); CALCIUM LEVEL 8.5 MG/DL (8.5-10.1); CARBON DIOXIDE LEVEL 20 MEQ/L (21-32); CHLORIDE LEVEL 105 MEQ/L (98-107); CREATININE FOR GFR 0.62 MG/DL (0.70-1.30); GLOMERULAR FILTRATION RATE > 60.0 (>56); GLUCOSE, FASTING 168 MG/DL (70-100); POTASSIUM SERUM 4.6 MEQ/L (3.5-5.1); SODIUM LEVEL 132 MEQ/L (136-145); TOTAL PROTEIN 6.2 GM/DL (6.4-8.2)
[2018-11-08] MEDS: HumaLOG INSULIN (NovoLOG) PER UNIT SC SCH ×4 (06:02→23:57)
[2018-11-08] MEDS: SODIUM CHLORIDE 0.9% INJ 10 ML SYR IV SCH ×2 (06:02→18:01)
[2018-11-08] MEDS: SUCRALFATE 1 GM TAB PO SCH ×4 (07:30→20:12)
[2018-11-08 08:00] VITALS: BP 125/81
[2018-11-08] MEDS: ROSUVASTATIN 10 MG TAB (CRESTOR) PO SCH (09:00)
[2018-11-08] MEDS: CARVedilol 6.25 MG TAB PO SCH ×2 (09:00→20:12)
[2018-11-08] MEDS: AMIODARONE 200 MG TAB (PACERONE) PO SCH (09:00)
[2018-11-08] MEDS: FLEET ENEMA PR SCH ×2 (09:49→21:30)
[2018-11-08] MEDS: PROMETHAZINE 25 MG TAB PO PRN ×2 (10:29→18:00)
[2018-11-08] MEDS: PANTOPRAZOLE 40MG INJ (PROTONIX) (C9113) IV SCH ×2 (11:07→20:10)
[2018-11-08 11:56] VITALS: BP 121/83
--- NOTE | 2018-11-08 12:45 | IPNPDOC ---
Text Note Date of Service The patient was seen on 11/08/18. NOTE No acute events overnight. He is still working with PT, but is not getting out of bed yet. Denies weakness, and the nausea is under control. He is still refusing to take PO meds other than the dilaudid. VSSAF NAD abd - soft, non distended, no rebound or guarding, tender to palpation epigastric only, ostomy is pink with some brown stool from the ostomy labs - see below A) 48y/o male with complicated medical history, and a benign appearing sigmoid stricture s/p RA sigmoidectomy with end colostomy recent [place] CAD chronic pancreatitis acalculous cholecystitis likely secondary to the pancreatitis with cholecystostomy drain in place. GI bleed with maroon colored stool P) continue with the mag citrate today enemas tonight and in the AM clq diet NPO after midnight plan on EGD and colonoscopy tomorrow PT Cody Bedoya DO VS,Fishbone, I+O VS, Fishbone, I+O Laboratory Tests 11/08/18 04:49 Red Blood Count 3.44 L, Mean Corpuscular Volume 85.5, Mean Corpuscular Hemoglobin 27.0, Mean Corpuscular Hemoglobin Concent 31.6 L, Red Cell Distribution Width 16.7 H, Calcium Level 8.5, Aspartate Amino Transf (AST/SGOT) 7, Alanine Aminotransferase (ALT/SGPT) < 6 L, Alkaline Phosphatase 124 H, Total Bilirubin 0.4, Total Protein 6.2 L, Albumin 1.8 L Vital Signs Date Time Temp Pulse Resp B/P (MAP) Pulse Ox O2 Delivery O2 Flow Rate FiO2 11/08/18 11:56 98.1 93 20 121/83 (96) 94 11/08/18 04:00 1.0 I&O- Last 24 Hours up to 6 AM 11/08/18 05:59 Intake Total 3030 ml Output Total 2110 ml Balance 920 ml LAVINIA BEDYOA DO Nov 08, 2018 12:45
[2018-11-08 16:00] VITALS: BP 134/84
--- NOTE | 2018-11-08 17:18 | IPNPDOC ---
Subjective Date Seen The patient was seen on 11/08/18. Subjective Chief Complaint/HPI Still with brown stool and blood in Ostomy Refused oral bowel prep. Nurses giving Fleets, but not much results with this Phenergan given for n/v - he thinks this works better than the Zofran Constitutional: Denies: Chills, Fever Pulmonary: Reports: Dyspnea; Denies: Cough Cardiovascular: Denies: Chest Pain, Palpitations Gastrointestinal: Reports: Nausea, Abdominal Pain; Denies: Vomiting Objective Physical Examination General Exam: Positive: Alert (awake and alert and appears comfortable this am), Cooperative, No Acute Distress Chest Exam: Positive: Normal air movement; Negative: Rales, Rhonchi, Wheezing Heart Exam: Positive: Rate Normal, Regular Rhythm, Normal S1, Normal S2 Abdomen Exam: Positive: BS Hypoactive, Soft, Tenderness, Other (brown stool and red blood in ostomy bag) Extremity Exam: Negative: Edema Assessment /Plan Problems (1) GI bleeding Status: Acute Problem Text: 11/08 - Hgb down slightly today Refused oral prep Nurses trying Fleets PLan for EGD/Colonoscopy tomorrow 11/07 - Dr. Bedoya saw patient this am and has postponed his EGD/Colonoscopy until Monday due to vomiting and stool in ostomy. He with plan to prep patient slowly over next couple days. before. Hgb improved with 2 units PRBCs 11/06 hgb 7.8; therefore, + 2u I spoke with Dr. Bedoya who examined the ostomy and states the bleeding is not at the ostomy site - He feels the bleeding is further up in the colon itself. He will discuss case with Dr. Vasquez who is in the OR today to decide if he should be scoped today by Dr. Vasquez or tomorrow by Dr. Bedoya. (2) Chronic abdominal pain Status: Acute Problem Text: 11/08 - Getting Dilaudid 6 mg po Q6H scheduled and still taking Dilaudid 0.4 mg IV Q6H - this is prn, but taking it every 6H - I will cut down dose of Dilaudid IV as the narcotics are contributing to some gastroparesis and n/v I adjusted timing of po Dilaudid today to stagger with IV Dilaudid Still with n/v despite scheduled Zofran Phenergan ordered by Dr. Bedoya Cont BID IV PPI Refusing Carafate that has been ordered chronic pain 2 chronic pancreatitis +/- colonic stricture +/- OUD remains on TPN via PICC for pancreatic rest/nutrition since 10/23/18 10/25/18: Patient continues to use PRN Dilaudid. He has refused all oral medications. I will defer changing his cardiac meds to from po to IV to Cardiology. Case dw Dr. Garcia-patient cleared for sigmoid colectomy-plan for Mon vs Wed 10/29 vs 10/31 P OR schedule (defer cholecystectomy for future date given high surgical risk at this time) Sigmoidoscopy Findings: A severe stenosis measuring of unknown length x 4 mm (inner diameter) was found at 30 cm proximal to the anus and was non-traversed. 10/22/[address] Vasquez for opinion +/- colonoscopy/biopsy 10/21/18: CT AP: 1. A catheter is present in the gallbladder. 2. There is increased density in the pancreatic region likely representing edema and residual fluid collections. There is no definite new fluid collection. 3. There is thickening of a wall of a small segment of sigmoid colon with surrounding edema that may represent inflammatory bowel disease. 4. There is a small amount of free fluid in the abdomen. Electronically Signed by David Joel MD 10/21/2018 02:49 P DD: David Joel MD 10/21/18 1313 DT: KAYKAY 10/21/18 1350 DS: BEA 10/21/18 1449 10/21/18 1449 [~ rep ct labl] (3) CAD (coronary artery disease) Status: Chronic Problem Text: H/O recent [place] 11/07- Continues to refuse all oral meds including Amiodarone, Coreg, Crestor due to "nausea" Plavix remains on hold due to GI bleeding. Entresto d/c'd due to GI bleed to prevent hypotension. Lisinopril given 11/06 but I will hold this as well until proven to remain hemodynamically stable 11/02 - No active symptoms Plavix on hold courtney-operatively and with blood from ostomy, would not restart until resolves. Refusing Amiodarone, Coreg, Statin and all other oral meds (4) Stricture of sigmoid colon Status: Acute Response to Treatment: Stable Problem Text: favoring 2 previous non-occlusive ischemic colitis 10/31: robotic assisted sigmoid colectomy and diverting colostomy pathology: segment of sigmoid colon with a segment of marked mucosal ulceration, transmural inflammation and marked stenosis, no malignancy is identified. (5) Anorexia Status: Chronic Problem Text: refusing all po meds x Dilaudid 2 to "RLQ abdominal pain" 11/06 EGD planned although favor pain 2 ischemic bowel/pacreatitis (6) Pneumonia Status: Acute Response to Treatment: Stable Problem Text: 11/02 - s/p 5 Days Vanco - last dose 10/29, s/p 7 days Zosyn - last dose 10/29 - CXR thought to be more consistent with CHF and showed improvement Now with productive cough and high risk for pneumonia due to poor insp neto and difficulty coughing due to pain - currently sats ok and no SOB or fever As above pain clinic to be contacted in hope of achieving better pain control Will need to encourage IS and OOB to prevent pneumonia CXR : Improved pulmonary edema pattern. Persistent small bilateral effusions. Chest X-ray 10/26: Pulmonary edema pattern bilaterally. Cardiomegaly with pacemaker. Small amounts of bilateral pleural fluid. CHF pattern 10/26/18 + Zosyn/vanco for ? PN, WBC 14.4; although no cough/F/C/hypoxia-? WBC related to colitis vs pancreatitis (7) Systolic and diastolic CHF, acute on chronic Status: Chronic Problem Text: Remains euvolemic on current regimen Echo 09/03/18: EF 30% Normal sinus rhythm with dual-chamber pacemaker. Appropriate atrial sensing and tracking with consistent ventricular paced. Paced QRS complexes with left bundle branch block QRS configuration. M-mode and two-dimensional echocardiography was performed with pulsed, co ntinuous wave, color flow and tissue Doppler studies. Moderately dilated left ventricle with borderline hypertrophy. Paradoxical septal wall motion and apical akinesis related to right ventricular paced rhythm. Moderate to moderately severe impairment of global resting systolic function. Mildly dilated left atrium with impairment of LV diastolic function and elevated mean left atrial pressure. Right heart chamber sizes upper limits of normal with right ventricular hypokinesis and Doppler evidence of moderate pulmonary hypertension. Mildly dilated IVC with slightly reduced respiratory collapse suggestive of central venous pressure of approximately 10 - 15 mmHg. Slight aortic valvular sclerosis with adequate cusp separation but premature cusp closure in keeping with reduced forward stroke volume. (8) Pancreatitis Permanent Comment: ? etiology-favor hyperTG (08/09/18 TG 506), +/- gliptin use (was on stevo) 10/23/18 CA-19-9 24 10/23/18 24 08/10/18 lipase 820 Last Edited By: Hari Hoang MD on Oct 23, 2018 17:54 Status: Acute Problem Text: as per abdominal pain ? etiology-favor hyperTG (08/09/18 TG 506), +/- gliptin use (was on stevo) 10/23/18 CA-19-9 24 10/23/18 24 08/10/18 lipase 820 (9) DM2 (diabetes mellitus, type 2) Status: Chronic Problem Text: 11/02 - Cont SSI coverage - FSBS running 150 low 200s 10/25/18: We are starting TPN with finger sticks q 6 hrs and sliding scale coverage per protocol Metformin on hold. hypoglycemic this am. poor po intake. monitor glucose levels. add in D5 to IVF if hypoglycemia returns/persists. (10) Malnutrition Status: Chronic Problem Text: TPN as per chronic abdominal pain Plan/VTE VTE Prophylaxis Ordered?: Yes (SCD/TEDS) VTE Exclusion Pharmacological: Active Bleeding VS, I&O, 24H, Fishbone Vital Signs/I&O Vital Signs Date Time Temp Pulse Resp B/P (MAP) Pulse Ox O2 Delivery O2 Flow Rate FiO2 11/08/18 16:00 98.9 98 20 134/84 (101) 97 11/08/18 04:00 1.0 I&O- Last 24 Hours up to 6 AM 11/08/18 06:00 Intake Total 3510 ml Output Total 1670 ml Balance 1840 ml Laboratory Data 24H LABS Laboratory Tests 2 11/07/18 23:41: Bedside Glucose (Misc Panel) 144H 11/08/18 04:49: Nucleated Red Blood Cells % (auto) 0.0, Anion Gap 7L, Glomerular Filtration Rate > 60.0, Blood Urea Nitrogen 20H, Creatinine 0.62L, Sodium Level 132L, Potassium Level 4.6, Chloride Level 105, Carbon Dioxide Level 20L, Calcium Level 8.5, Aspartate Amino Transf (AST/SGOT) 7, Alanine Aminotransferase (ALT/SGPT) < 6L, Alkaline Phosphatase 124H, Total Bilirubin 0.4, Total Protein 6.2L, Albumin 1.8L, Albumin/Globulin Ratio 0.41L 11/08/18 05:52: Bedside Glucose (Misc Panel) 155H 11/08/18 11:57: Bedside Glucose (Misc Panel) 147H CBC/BMP Laboratory Tests 11/08/18 04:49 Red Blood Count 3.44 L, Mean Corpuscular Volume 85.5, Mean Corpuscular Hemoglobin 27.0, Mean Corpuscular Hemoglobin Concent 31.6 L, Red Cell Distribution Width 16.7 H, Calcium Level 8.5, Aspartate Amino Transf (AST/SGOT) 7, Alanine Aminotransferase (ALT/SGPT) < 6 L, Alkaline Phosphatase 124 H, Total Bilirubin 0.4, Total Protein 6.2 L, Albumin 1.8 L Microbiology Microbiology 10/29/18 MRSA Screen - Final, Complete Staph.aureus Methicillin Resis DANIEL TOUSSAINT PA-C Nov 08, 2018 17:18
[2018-11-08] MEDS ORDERED: AMINO AC/ELECTROLYTE/DEX/CALC 2,000 ML IV SCH (18:00)
[2018-11-08] MEDS ORDERED: FAT EMULSION IV 20% 500 ML IV SCH (18:00)
[2018-11-08 18:59] VITALS: BP 141/85
[2018-11-08 20:00] VITALS: BP 127/86
[2018-11-09] VITALS (7 sets, daily range): BP systolic 101–125; BP diastolic 73–81
[2018-11-09] MEDS: ONDANSETRON 4MG/2ML VIAL (J2405) IV SCH ×4 (02:12→21:38)
[2018-11-09] MEDS: HYDROmorphone (DILAUDID) 4 MG TAB PO SCH ×3 (02:13→14:41)
[2018-11-09 05:41] LABS: HEMATOCRIT 32.5 % (42.0-52.0); HEMOGLOBIN 10.2 g/dl (13.5-17.5); MEAN CORPUSCULAR HEMOGLOBIN 27.3 pg (27.0-33.0); MEAN CORPUSCULAR HGB CONC 31.4 g/dl (32.0-36.5); MEAN CORPUSCULAR VOLUME 86.9 fl (80.0-96.0); PLATELET COUNT, AUTOMATED 203 10^3/uL (150-450); RED BLOOD COUNT 3.74 10^6/uL (4.30-6.10); WHITE BLOOD COUNT 8.2 10^3/uL (4.0-10.0)
[2018-11-09] MEDS: SODIUM CHLORIDE 0.9% INJ 10 ML SYR IV SCH ×2 (06:00→18:00)
[2018-11-09 06:03] LABS: ALBUMIN 1.8 GM/DL (3.2-5.2); ALT/SGPT < 6 U/L (12-78); BILIRUBIN,TOTAL 0.4 MG/DL (0.2-1.0); BLOOD UREA NITROGEN 19 MG/DL (7-18); CALCIUM LEVEL 8.9 MG/DL (8.5-10.1); CARBON DIOXIDE LEVEL 22 MEQ/L (21-32); CHLORIDE LEVEL 106 MEQ/L (98-107); CREATININE FOR GFR 0.67 MG/DL (0.70-1.30); GLOMERULAR FILTRATION RATE > 60.0 (>56); GLUCOSE, FASTING 135 MG/DL (70-100); POTASSIUM SERUM 4.4 MEQ/L (3.5-5.1); SODIUM LEVEL 135 MEQ/L (136-145); TOTAL PROTEIN 6.4 GM/DL (6.4-8.2)
[2018-11-09] MEDS: HumaLOG INSULIN (NovoLOG) PER UNIT SC SCH ×3 (06:29→18:24)
[2018-11-09] MEDS: FLEET ENEMA PR SCH ×2 (09:00→21:00)
[2018-11-09] MEDS: ROSUVASTATIN 10 MG TAB (CRESTOR) PO SCH ×2 (09:00→09:03)
[2018-11-09] MEDS: CARVedilol 6.25 MG TAB PO SCH ×3 (09:00→21:00)
[2018-11-09] MEDS: PANTOPRAZOLE 40MG INJ (PROTONIX) (C9113) IV SCH ×2 (09:01→21:38)
[2018-11-09] MEDS: SODIUM CHLORIDE 0.9% INJ 10 ML SYR IV PRN ×2 (09:02→14:41)
[2018-11-09] MEDS: AMIODARONE 200 MG TAB (PACERONE) PO SCH (09:03)
[2018-11-09] MEDS: SUCRALFATE 1 GM TAB PO SCH ×4 (09:03→21:00)
--- NOTE | 2018-11-09 09:27 | IPNPDOC ---
Subjective Date Seen The patient was seen on 11/09/18. Subjective Chief Complaint/HPI took some of the oral prep yesterday Constitutional: Denies: Chills, Fever Pulmonary: Reports: Dyspnea; Denies: Cough Cardiovascular: Denies: Chest Pain, Palpitations Gastrointestinal: Reports: Nausea, Abdominal Pain, Hematochezia (stool appears liquid redish brown - lessw gross blood); Denies: Vomiting, Diarrhea, Constipation Objective Physical Examination General Exam: Positive: Alert, No Acute Distress, Other (Wakes to verbal stimuli, but fell back to sleep. C/O pain when awake) Chest Exam: Positive: Normal air movement; Negative: Rhonchi, Wheezing Heart Exam: Positive: Rate Normal, Regular Rhythm, Normal S1, Normal S2 Abdomen Exam: Positive: Normal bowel sounds, Soft, Tenderness, Other (Ostomy with liquid redish-brown stool No clots) Extremity Exam: Positive: Edema (trace - 1+ ankle edema) Assessment /Plan Problems (1) Nausea Status: Chronic Problem Text: favor 2 diabetic/narcotic gastroparesis/chronic pancreatitis 11/09 HM 6 q6H to 5 q6H, + Marinol 2.5 BID (off IV HM since 11/07/18 530) refusing all po meds x HM really no improvement c TPN/pancreatic rest Continue ondan 4 IV q6H, prometh 25 q prn, panto 40 IV BID 11/09/18 H pylori P 11/09/18 EGD mild gastritis Aureliano (2) GI bleeding Status: Acute Problem Text: 11/09 - Hgb stable at 10.2 since tx 2u on 11/06 11/09 EGD/sigmoidoscopy mild gastritis, superficial colostomy ischemia-Aureliano (3) Chronic abdominal pain Status: Acute Problem Text: chronic pain 2 chronic pancreatitis +/- colonic stricture +/- OUD attempting to wean HM dose remains on TPN via PICC for pancreatic rest/nutrition since 10/23/18 Sigmoidoscopy Findings: A severe stenosis measuring of unknown length x 4 mm (inner diameter) was found at 30 cm proximal to the anus and was non-traversed. 10/22/[address] Vasquez for opinion +/- colonoscopy/biopsy 10/21/18: CT AP: 1. A catheter is present in the gallbladder. 2. There is increased density in the pancreatic region likely representing edema and residual fluid collections. There is no definite new fluid collection. 3. There is thickening of a wall of a small segment of sigmoid colon with surrounding edema that may represent inflammatory bowel disease. 4. There is a small amount of free fluid in the abdomen. Electronically Signed by David Joel MD 10/21/2018 02:49 P DD: David Joel MD 10/21/18 1313 DT: KAYKAY 10/21/18 1350 DS: BEA 10/21/18 1449 10/21/18 1449 [~ rep ct labl] (4) CAD (coronary artery disease) Status: Chronic Problem Text: c ischemic CMP (5) Pancreatitis Permanent Comment: ? etiology-favor hyperTG (08/09/18 TG 506), +/- gliptin use (was on stevo) 10/23/18 CA-19-9 24 10/23/18 24 08/10/18 lipase 820 Last Edited By: Hari Hoang MD on Oct 23, 2018 17:54 Status: Acute Problem Text: as per abdominal pain ? etiology-favor hyperTG (08/09/18 TG 506), +/- gliptin use (was on stevo) 10/23/18 CA-19-9 24 10/23/18 24 08/10/18 lipase 820 (6) Stricture of sigmoid colon Status: Acute Response to Treatment: Stable Problem Text: 10/31: robotic assisted sigmoid colectomy and diverting colostomy pathology: segment of sigmoid colon with a segment of marked mucosal ulceration, transmural inflammation and marked stenosis, no malignancy is identified. (7) Systolic and diastolic CHF, acute on chronic Status: Chronic Problem Text: Remains euvolemic on current regimen Echo 09/03/18: EF 30% Normal sinus rhythm with dual-chamber pacemaker. Appropriate atrial sensing and tracking with consistent ventricular paced. Paced QRS complexes with left b undle branch block QRS configuration. M-mode and two-dimensional echocardiography was performed with pulsed, continuous wave, color flow and tissue Doppler studies. Moderately dilated left ventricle with borderline hypertrophy. Paradoxical septal wall motion and apical akinesis related to right ventricular paced rhythm. Moderate to moderately severe impairment of global resting systolic function. Mildly dilated left atrium with impairment of LV diastolic function and elevated mean left atrial pressure. Right heart chamber sizes upper limits of normal with right ventricular hypokinesis and Doppler evidence of moderate pulmonary hypertension. Mildly dilated IVC with slightly reduced respiratory collapse suggestive of central venous pressure of approximately 10 - 15 mmHg. Slight aortic valvular sclerosis with adequate cusp separation but premature cusp closure in keeping with reduced forward stroke volume. (8) DM2 (diabetes mellitus, type 2) Status: Chronic Problem Text: 11/02 - Cont SSI coverage - FSBS running 150 low 200s 10/25/18: We are starting TPN with finger sticks q 6 hrs and sliding scale coverage per protocol Metformin on hold. hypoglycemic this am. poor po intake. monitor glucose levels. add in D5 to IVF if hypoglycemia returns/persists. (9) Malnutrition Status: Chronic Problem Text: TPN as per chronic abdominal pain (10) Acalculous cholecystitis Status: Chronic Problem Text: sp percutaneous drainage plan lap key in future Plan/VTE VTE Prophylaxis Ordered?: Yes (SCD/TEDS) VTE Exclusion Pharmacological: Active Bleeding Plan Therapy: PT Disposition Encourage PT and OOB. Patient does not want to go back to [facility] VS, I&O, 24H, Fishbone Vital Signs/I&O Vital Signs Date Time Temp Pulse Resp B/P (MAP) Pulse Ox O2 Delivery O2 Flow Rate FiO2 11/09/18 09:03 104 125/74 11/09/18 09:02 18 11/09/18 08:00 97.3 96 11/08/18 04:00 1.0 I&O- Last 24 Hours up to 6 AM 11/09/18 06:00 Intake Total 1320 ml Output Total 2365 ml Balance -1045 ml Laboratory Data 24H LABS Laboratory Tests 2 11/08/18 11:57: Bedside Glucose (Misc Panel) 147H 11/08/18 17:23: Bedside Glucose (Misc Panel) 148H 11/08/18 23:49: Bedside Glucose (Misc Panel) 127H 11/09/18 05:21: Nucleated Red Blood Cells % (auto) 0.0, Anion Gap 7L, Glomerular Filtration Rate > 60.0, Blood Urea Nitrogen 19H, Creatinine 0.67L, Sodium Level 135L, Potassium Level 4.4, Chloride Level 106, Carbon Dioxide Level 22, Calcium Level 8.9, Aspartate Amino Transf (AST/SGOT) 7, Alanine Aminotransferase (ALT/SGPT) < 6L, Alkaline Phosphatase 120H, Total Bilirubin 0.4, Total Protein 6.4, Albumin 1.8L, Albumin/Globulin Ratio 0.39L CBC/BMP Laboratory Tests 11/09/18 05:21 Red Blood Count 3.74 L, Mean Corpuscular Volume 86.9, Mean Corpuscular Hemoglobin 27.3, Mean Corpuscular Hemoglobin Concent 31.4 L, Red Cell Distribution Width 16.6 H, Calcium Level 8.9, Aspartate Amino Transf (AST/SGOT) 7, Alanine Aminotransferase (ALT/SGPT) < 6 L, Alkaline Phosphatase 120 H, Total Bilirubin 0.4, Total Protein 6.4, Albumin 1.8 L DANIEL TOUSSAINT PA-C Nov 09, 2018 09:27 Hari Hoang M.D. Nov 09, 2018 16:41
[2018-11-09] MEDS ORDERED: PROPOFOL 200 MG/20 ML VIAL As Ordered ONE (10:16)
[2018-11-09] MEDS ORDERED: LIDOCAINE 2% INJ 100 MG/5 ML SDV (FOR ANES.) As Ordered ONE (10:16)
--- NOTE | 2018-11-09 10:32 | IPNPDOC ---
Text Note Date of Service The patient was seen on 11/09/18. NOTE No acute events overnight. He is still working with PT, but is not getting out of bed yet. He claims that the nausea is better, and he is tolerating the prep. VSSAF NAD abd - soft, non distended, no rebound or guarding, tender to palpation epigastric only, ostomy is pink with some brown stool from the ostomy labs - see below A) 48y/o male with complicated medical history, and a benign appearing sigmoid stricture s/p RA sigmoidectomy with end colostomy recent [place] CAD chronic pancreatitis acalculous cholecystitis likely secondary to the pancreatitis with cholecystosto my drain in place. GI bleed with maroon colored stool P) plan on EGD and colonoscopy today Cody Bedoya DO VS,Kami, I+O VS, Kami, I+O Laboratory Tests 11/09/18 05:21 Red Blood Count 3.74 L, Mean Corpuscular Volume 86.9, Mean Corpuscular Hemoglob in 27.3, Mean Corpuscular Hemoglobin Concent 31.4 L, Red Cell Distribution Width 16.6 H, Calcium Level 8.9, Aspartate Amino Transf (AST/SGOT) 7, Alanine Aminotransferase (ALT/SGPT) < 6 L, Alkaline Phosphatase 120 H, Total Bilirubin 0.4, Total Protein 6.4, Albumin 1.8 L Vital Signs Date Time Temp Pulse Resp B/P (MAP) Pulse Ox O2 Delivery O2 Flow Rate FiO2 11/09/18 09:02 18 11/09/18 08:00 97.3 103 121/79 (93) 96 11/08/18 04:00 1.0 I&O- Last 24 Hours up to 6 AM 11/09/18 06:00 Intake Total 1320 ml Output Total 2365 ml Balance -1045 ml LAVINIA BEDOYA DO Nov 09, 2018 10:32
--- NOTE | 2018-11-09 13:58 | RO ---
DATE OF PROCEDURE: 11/09/2018 PREOPERATIVE DIAGNOSES: Melena and suspected gastrointestinal bleed. POSTOPERATIVE DIAGNOSES: Mild gastritis and superficial ischemia of his colostomy. PROCEDURES: Esophagogastroduodenoscopy (EGD) and flexible sigmoidoscopy. COMPLICATIONS: Poor bowel prep. SURGEON: Dr. Bedoya. SLEEVE IRONER: None. ANESTHESIA: IV sedation. INDICATIONS FOR PROCEDURE: Patient is a 48-year-old male who has been in the hospital for a couple months with multiple complications of an myocardial infarction, ischemic colitis with stricture and chronic pancreatitis. He developed some lower GI bleeding following his sigmoidectomy and sigmoid colostomy, for that reason the plan was to proceed with upper and lower endoscopy. Risks and benefits of the procedure not limited but including bleeding, infection, perforation, damage surrounding structures, need for further surgery were discussed in detail with the patient, informed was obtained, and procedure was planned. DESCRIPTION OF PROCEDURE: The patient brought back to the procedure room #3. After sufficient sedation, he was placed in the lithotomy decubitus position. Next, the endoscope was passed through the oropharynx, down the esophagus into the stomach and into the second portion of duodenum. Duodenum appeared normal. Scope was retracted back into the prepyloric area. There was some streaking and mild gastritis throughout the pylorus and the body of the stomach. There was also a very small hiatal hernia identified less than 2 cm. The rest of his exam was normal. Scope was then removed. There were no signs of any active bleeding or any recent bleeding. No ulcerations of any kind identified and that ended that portion of the procedure. Next, he was laid flat on his back. The ostomy was cleared off his left lower quadrant. There was some edema of the our ostomy and some superficial ulcerations identified there, nothing actively bleeding currently. The rest of the ostomy was nice and pink. The scope was inserted inside of the ostomy for a few inches. There was nice pink wall everywhere; however, there was a copious amount of thick brown stools, which made it impossible to pass. The scope was then removed. The patient was awakened from anesthesia and sent to the postanesthesia care unit (PACU) in stable condition.
[2018-11-09] MEDS ORDERED: MULTIVITAMIN -ADULT INJECTION 10 ML, CR/CU/SE/MN/ZN INJ 1 ML in AMINO AC/ELECTROLYTE/DE... IV SCH (18:00)
[2018-11-09] MEDS ORDERED: FAT EMULSION IV 20% 500 ML IV SCH (18:00)
[2018-11-09] MEDS: DRONABINOL 2.5 MG CAP (MARINOL) PO SCH (18:24)
[2018-11-09] MEDS: HYDROmorphone 2 MG TAB PO SCH (20:00)
[2018-11-10] MEDS: HumaLOG INSULIN (NovoLOG) PER UNIT SC SCH ×5 (00:40→23:43)
[2018-11-10] MEDS: HYDROmorphone 2 MG TAB PO SCH ×4 (01:35→20:16)
[2018-11-10] MEDS: ONDANSETRON 4MG/2ML VIAL (J2405) IV SCH ×4 (01:35→20:15)
[2018-11-10 04:00] VITALS: BP 107/79
[2018-11-10 05:25] LABS: HEMATOCRIT 29.2 % (42.0-52.0); HEMOGLOBIN 9.2 g/dl (13.5-17.5); MEAN CORPUSCULAR HEMOGLOBIN 27.1 pg (27.0-33.0); MEAN CORPUSCULAR HGB CONC 31.5 g/dl (32.0-36.5); MEAN CORPUSCULAR VOLUME 86.1 fl (80.0-96.0); PLATELET COUNT, AUTOMATED 221 10^3/uL (150-450); RED BLOOD COUNT 3.39 10^6/uL (4.30-6.10); WHITE BLOOD COUNT 8.4 10^3/uL (4.0-10.0)
[2018-11-10 05:48] LABS: ALBUMIN 1.9 GM/DL (3.2-5.2); ALT/SGPT < 6 U/L (12-78); BILIRUBIN,TOTAL 0.4 MG/DL (0.2-1.0); BLOOD UREA NITROGEN 18 MG/DL (7-18); CALCIUM LEVEL 9.1 MG/DL (8.5-10.1); CARBON DIOXIDE LEVEL 20 MEQ/L (21-32); CHLORIDE LEVEL 107 MEQ/L (98-107); GLOMERULAR FILTRATION RATE > 60.0 (>56); GLUCOSE, FASTING 133 MG/DL (70-100); POTASSIUM SERUM 4.2 MEQ/L (3.5-5.1); SODIUM LEVEL 134 MEQ/L (136-145); TOTAL PROTEIN 6.4 GM/DL (6.4-8.2)
[2018-11-10] MEDS: SODIUM CHLORIDE 0.9% INJ 10 ML SYR IV SCH ×2 (05:59→18:44)
[2018-11-10] MEDS: SUCRALFATE 1 GM TAB PO SCH ×4 (07:30→20:20)
[2018-11-10 08:00] VITALS: BP 113/84
[2018-11-10] MEDS: PANTOPRAZOLE 40MG INJ (PROTONIX) (C9113) IV SCH ×2 (08:41→20:15)
[2018-11-10] MEDS: ROSUVASTATIN 10 MG TAB (CRESTOR) PO SCH (09:00)
[2018-11-10] MEDS: CARVedilol 6.25 MG TAB PO SCH ×2 (09:00→20:20)
[2018-11-10] MEDS: AMIODARONE 200 MG TAB (PACERONE) PO SCH (09:00)
[2018-11-10 12:00] VITALS: BP 117/77
[2018-11-10] MEDS: DRONABINOL 2.5 MG CAP (MARINOL) PO SCH ×2 (12:00→17:30)
--- NOTE | 2018-11-10 12:59 | IPNPDOC ---
Subjective Date Seen The patient was seen on 11/10/18. Subjective Chief Complaint/HPI slight improvement of nausea Constitutional: Denies: Chills Eyes: Reports: Pain ENT: Denies: Head Aches Skin: Denies: Rash Pulmonary: Denies: Dyspnea Cardiovascular: Denies: Chest Pain Gastrointestinal: Reports: Nausea Objective Physical Examination General Exam: Positive: Alert, No Acute Distress, Other (Wakes to verbal stimuli, but fell back to sleep. C/O pain when awake) Chest Exam: Positive: Normal air movement; Negative: Rhonchi, Wheezing Heart Exam: Positive: Rate Normal, Regular Rhythm, Normal S1, Normal S2 Abdomen Exam: Positive: Normal bowel sounds, Soft, Tenderness, Other (Ostomy with liquid redish-brown stool No clots) Extremity Exam: Positive: Edema (trace - 1+ ankle edema) Assessment /Plan Problems (1) Chronic abdominal pain Status: Acute Problem Text: favor 2 diabetic/narcotic gastroparesis/chronic pancreatitis +/- depression no real subjective improvement c pancreatic rest nor colostomy for sigmoid stricture 11/09 HM 6 q6H to 5 q6H, + Marinol 2.5 BID (off IV HM since 11/07/18 530)-improved N/abdominal pain, but actually oversedated c urinary incontinence; therefore, 11/10 decreased HM to 2 q6H prn refusing all po meds x HM Continue ondan 4 IV q6H, prometh 25 q prn, panto 40 IV BID 11/09/18 H pylori P 11/09/18 EGD mild gastritis Aureliano remains on TPN via PICC for pancreatic rest/nutrition since 10/23/18 10/21/18: CT AP: 1. A catheter is present in the gallbladder. 2. There is increased density in the pancreatic region likely representing edema and residual fluid collections. There is no definite new fluid collection. 3. There is thickening of a wall of a small segment of sigmoid colon with surrounding edema that may represent inflammatory bowel disease. 4. There is a small amount of free fluid in the abdomen. (2) GI bleeding Status: Acute Problem Text: no further obvious ostomy bleeding 11/09 hgb 9.2-stable since 11/06 2u tx 11/09 EGD/sigmoidoscopy mild gastritis, superficial colostomy ischemia-Aureliano (3) CAD (coronary artery disease) Status: Chronic Problem Text: c ischemic CMP (4) Pancreatitis Permanent Comment: ? etiology-favor hyperTG (08/09/18 TG 506), +/- gliptin use (was on setvo) 10/23/18 CA-19-9 24 10/23/18 24 08/10/18 lipase 820 Last Edited By: Hari Hoang MD on Oct 23, 2018 17:54 Status: Acute Problem Text: as per abdominal pain ? etiology-favor hyperTG (08/09/18 TG 506), +/- gliptin use (was on stevo) 10/23/18 CA-19-9 24 10/23/18 24 08/10/18 lipase 820 (5) Stricture of sigmoid colon Status: Acute Response to Treatment: Stable Problem Text: 10/31: robotic assisted sigmoid colectomy and diverting colostomy pathology: segment of sigmoid colon with a segment of marked mucosal ulceration, transmural inflammation and marked stenosis, no malignancy is identified. (6) Systolic and diastolic CHF, acute on chronic Status: Chronic Problem Text: Remains euvolemic on current regimen Echo 09/03/18: EF 30% Normal sinus rhythm with dual-chamber pacemaker. Appropriate atrial sensing and tracking with consistent ventricular paced. Paced QRS complexes with left bundle branch block QRS configuration. M-mode and two-dimensional echocardiography was performed with pulsed, continuous wave, color flow and tissue Doppler studies. Moderately dilated left ventricle with borderline hypertrophy. Paradoxical septal wall motion and apical akinesis related to right ventricular paced rhythm. Moderate to moderately severe impairment of global resting systolic function. Mildly dilated left atrium with impairment of LV diastolic function and elevated mean left atrial pressure. Right heart chamber sizes upper limits of normal with right ventricular hypokinesis and Doppler evidence of moderate pulmonary hypertension. Mildly dilated IVC with slightly reduced respiratory collapse suggestive of central venous pressure of approximately 10 - 15 mmHg. Slight aortic valvular sclerosis with adequate cusp separation but premature cusp closure in keeping with reduced forward stroke volume. (7) DM2 (diabetes mellitus, type 2) Status: Chronic Problem Text: 11/02 - Cont SSI coverage - FSBS running 150 low 200s 10/25/18: We are starting TPN with finger sticks q 6 hrs and sliding scale coverage per protocol Metformin on hold. hypoglycemic this am. poor po intake. monitor glucose levels. add in D5 to IVF if hypoglycemia returns/persists. (8) Malnutrition Status: Chronic Problem Text: TPN as per chronic abdominal pain favor change to enteral feeding given no real improvement of abdominal pain on TPN 11/10 alb stable at 1.9 (9) Acalculous cholecystitis Status: Chronic Problem Text: sp percutaneous drainage plan lap key in future (10) Physical deconditioning Status: Chronic Problem Text: 11/08 safe for dc per PT Plan/VTE VTE Prophylaxis Ordered?: Yes (SCD/TEDS) VTE Exclusion Pharmacological: Active Bleeding Plan Therapy: PT VS, I&O, 24H, Fishbone Vital Signs/I&O Vital Signs Date Time Temp Pulse Resp B/P (MAP) Pulse Ox O2 Delivery O2 Flow Rate FiO2 11/10/18 12:00 97.9 105 20 117/77 (90) 98 11/09/18 12:28 1.0 I&O- Last 24 Hours up to 6 AM 11/10/18 06:00 Intake Total 100 ml Output Total 1460 ml Balance -1360 ml Laboratory Data 24H LABS Laboratory Tests 2 11/09/18 13:03: Bedside Glucose (Misc Panel) 154H 11/09/18 17:53: Bedside Glucose (Misc Panel) 159H 11/10/18 00:19: Bedside Glucose (Misc Panel) 109H 11/10/18 04:46: Nucleated Red Blood Cells % (auto) 0.0, Anion Gap 7L, Glomerular Filtration Rate > 60.0, Blood Urea Nitrogen 18, Creatinine 0.70, Sodium Level 134L, Potassium Level 4.2, Chloride Level 107, Carbon Dioxide Level 20L, Calcium Level 9.1, Aspartate Amino Transf (AST/SGOT) 7, Alanine Aminotransferase (ALT/SGPT) < 6L, A lkaline Phosphatase 122H, Total Bilirubin 0.4, Total Protein 6.4, Albumin 1.9L, Albumin/Globulin Ratio 0.42L 11/10/18 05:53: Bedside Glucose (Misc Panel) 135H CBC/BMP Laboratory Tests 11/10/18 04:46 Red Blood Count 3.39 L, Mean Corpuscular Volume 86.1, Mean Corpuscular Hemoglobin 27.1, Mean Corpuscular Hemoglobin Concent 31.5 L, Red Cell Distribution Width 16.5 H, Calcium Level 9.1, Aspartate Amino Transf (AST/SGOT) 7, Alanine Aminotransferase (ALT/SGPT) < 6 L, Alkaline Phosphatase 122 H, Total Bilirubin 0.4, Total Protein 6.4, Albumin 1.9 L Hari Hoang M.D. Nov 10, 2018 12:59
[2018-11-10 16:00] VITALS: BP 131/80
--- NOTE | 2018-11-10 17:14 | IPNPDOC ---
Subjective General Date/Time Seen The patient was seen on 11/10/18 at 11:00. Subject Chief Complaint/History Patient was seen this morning. He was asleep and I entered and he was mildly difficult to wake up and will follow closely in between my conversation with him. He looks comfortable. He remains on TPN. No signs of any persistent bleeding on the colostomy bag. Current Medications Current Medications Current Medications Acetaminophen/ Hydrocodone Bitart (Chandler, Anexsia 5/325) 1 tab ASDIRECTED PRN PO MILD/MODERATE PAIN (PS 1-7); Start 10/31/18 at 12:00; Stop 10/31/18 at 13:00; Status DC Amino Ac/Electrol/ Dextrose/Calcium 2,000 ml @ 60 mls/hr ONCE@1800 IV Last administered on 10/25/18at 18:51; Start 10/25/18 at 18:00; Stop 10/26/18 at 17:59; Status DC Amino Ac/Electrol/ Dextrose/Calcium 2,000 ml @ 60 mls/hr ONCE@1800 IV Last administered on 10/27/18at 17:45; Start 10/27/18 at 18:00; Stop 10/28/18 at 17:59; Status DC Amino Ac/Electrol/ Dextrose/Calcium 2,000 ml @ 60 mls/hr ONCE@1800 IV Last administered on 10/28/18at 17:15; Start 10/28/18 at 18:00; Stop 10/29/18 at 17:59; Status DC Amino Ac/Electrol/ Dextrose/Calcium 2,000 ml @ 60 mls/hr ONCE@1800 IV Last administered on 10/30/18at 18:03; Start 10/30/18 at 18:00; Stop 10/31/18 at 17:59; Status DC Amino Ac/Electrol/ Dextrose/Calcium 2,000 ml @ 60 mls/hr ONCE@1800 IV Last administered on 10/31/18at 17:53; Start 10/31/18 at 18:00; Stop 11/01/18 at 17:59; Status DC Amino Ac/Electrol/ Dextrose/Calcium 2,000 ml @ 60 mls/hr ONCE@1800 IV Last administered on 11/01/18at 18:33; Start 11/01/18 at 18:00; Stop 11/02/18 at 17:59; Status DC Amino Ac/Electrol/ Dextrose/Calcium 2,000 ml @ 60 mls/hr ONCE@1800 IV Last administered on 11/02/18at 18:38; Start 11/02/18 at 18:00; Stop 11/03/18 at 17:59; Status DC Amino Ac/Electrol/ Dextrose/Calcium 2,000 ml @ 60 mls/hr ONCE@1800 IV Last a dministered on 11/03/18at 17:34; Start 11/03/18 at 18:00; Stop 11/04/18 at 17:59; Status DC Amino Ac/Electrol/ Dextrose/Calcium 2,000 ml @ 60 mls/hr ONCE@1800 IV Last administered on 11/04/18at 17:54; Start 11/04/18 at 18:00; Stop 11/05/18 at 17:59; Status DC Amino Ac/Electrol/ Dextrose/Calcium 2,000 ml @ 60 mls/hr ONCE@1800 IV Last administered on 11/06/18at 17:54; Start 11/06/18 at 18:00; Stop 11/07/18 at 17:59; Status DC Amino Ac/Electrol/ Dextrose/Calcium 2,000 ml @ 60 mls/hr ONCE@1800 IV Last administered on 11/08/18at 18:01; Start 11/08/18 at 18:00; Stop 11/09/18 at 17:59; Status DC Amino Ac/Electrol/ Dextrose/Calcium 2,000 ml @ 60 mls/hr ONCE@1800 IV ; Start 11/10/18 at 18:00; Stop 11/11/18 at 17:59 Amiodarone HCl (Pacerone, Cordarone) 400 mg DAILY PO Last administered on 10/22/18at 09:25; Start 10/21/18 at 09:00; Stop 10/26/18 at 08:09; Status DC Amiodarone HCl (Pacerone, Cordarone) 400 mg DAILY PO Last administered on 11/09/18at 09:03; Start 11/02/18 at 09:00 Aspirin (Ecotrin) 81 mg BID PO Last administered on 10/22/18at 21:29; Start 10/21/18 at 09:00; Stop 10/26/18 at 08:09; Status DC Bisacodyl (Dulcolax Suppository) 10 mg DAILY PRN DE CONSTIPATION; Start 10/21/18 at 12:30 Carvedilol (COReg) 6.25 mg BID PO Last administered on 10/22/18 21:29; Start 10/21/18 at 09:00; Stop 10/26/18 at 07:48; Status DC Carvedilol (COReg) 6.25 mg BID PO Last administered on 11/07/18 20:25; Start 11/01/18 at 21:00 Clopidogrel Bisulfate (PLAVix) 75 mg DAILY PO Last administered on 10/22/18at 09:26; Start 10/21/18 at 09:00; Stop 10/26/18 at 08:09; Status DC Dextrose (Dextrose 50%) 25 ml ASDIRECTED PRN IV SEE LABEL COMMENTS; Start 10/21/18 at 12:30 Dextrose/Sodium Chloride 1,000 ml @ 60 mls/hr [id number] IV Last administered on 10/25/18at 19:07; Start 10/23/18 at 08:30; Stop 10/26/18 at 11:30; Status DC Dronabinol (Marinol) 2.5 mg BID@12,1730 PO Last administered on 11/09/18at 18:24; Start 11/09/18 at 17:30 Fat Emulsion Intravenous 500 ml @ 20 mls/hr ONCE@1800 IV Last administered on 10/25/18at 18:51; Start 10/25/18 at 18:00; Stop 10/26/18 at 17:59; Status DC Fat Emulsion Intravenous 500 ml @ 20 mls/hr ONCE@1800 IV Last administered on 10/26/18at 17:55; Start 10/26/18 at 18:00; Stop 10/27/18 at 17:59; Status DC Fat Emulsion Intravenous 500 ml @ 20 mls/hr ONCE@1800 IV Last administered on 10/27/18at 17:45; Start 10/27/18 at 18:00; Stop 10/28/18 at 17:59; Status DC Fat Emulsion Intravenous 500 ml @ 20 mls/hr ONCE@1800 IV Last administered on 10/28/18at 17:15; Start 10/28/18 at 18:00; Stop 10/29/18 at 17:59; Status DC Fat Emulsion Intravenous 500 ml @ 20 mls/hr ONCE@1800 IV Last administered on 10/29/18 18:09; Start 10/29/18 at 18:00; Stop 10/30/18 at 17:59; Status DC Fat Emulsion Intravenous 500 ml @ 20 mls/hr ONCE@1800 IV Last administered on 10/30/18at 18:03; Start 10/30/18 at 18:00; Stop 10/31/18 at 17:59; Status DC Fat Emulsion Intravenous 500 ml @ 20 mls/hr ONCE@1800 IV Last administered on 10/31/18at 17:52; Start 10/31/18 at 18:00; Stop 11/01/18 at 17:59; Status DC Fat Emulsion Intravenous 500 ml @ 20 mls/hr ONCE@1800 IV Last administered on 11/01/18at 18:33; Start 11/01/18 at 18:00; Stop 11/02/18 at 17:59; Status DC Fat Emulsion Intravenous 500 ml @ 20 mls/hr ONCE@1800 IV Last administered on 11/02/18at 18:38; Start 11/02/18 at 18:00; Stop 11/03/18 at 17:59; Status DC Fat Emulsion Intravenous 500 ml @ 20 mls/hr ONCE@1800 IV Last administered on 11/03/18at 17:34; Start 11/03/18 at 18:00; Stop 11/04/18 at 17:59; Status DC Fat Emulsion Intravenous 500 ml @ 20 mls/hr ONCE@1800 IV Last administered on 11/04/18at 17:53; Start 11/04/18 at 18:00; Stop 11/05/18 at 17:59; Status DC Fat Emulsion Intravenous 500 ml @ 20 mls/hr ONCE@1800 IV Last administered on 11/05/18at 18:07; Start 11/05/18 at 18:00; Stop 11/06/18 at 17:59; Status DC Fat Emulsion Intravenous 500 ml @ 20 mls/hr ONCE@1800 IV Last administered on 11/06/18at 17:54; Start 11/06/18 at 18:00; Stop 11/07/18 at 17:59; Status DC Fat Emulsion Intravenous 500 ml @ 20 mls/hr ONCE@1800 IV Last administered on 11/07/18at 18:20; Start 11/07/18 at 18:00; Stop 11/08/18 at 17:59; Status DC Fat Emulsion Intravenous 500 ml @ 20 mls/hr ONCE@1800 IV Last administered on 11/08/18at 18:01; Start 11/08/18 at 18:00; Stop 11/09/18 at 17:59; Status DC Fat Emulsion Intravenous 500 ml @ 20 mls/hr ONCE@1800 IV Last administered on 11/09/18at 18:24; Start 11/09/18 at 18:00; Stop 11/10/18 at 17:59 Fat Emulsion Intravenous 500 ml @ 20 mls/hr ONCE@1800 IV ; Start 11/10/18 at 18:00; Stop 11/11/18 at 17:59 Fentanyl Citrate (Sublimaze) 25 mcg Q5MP PRN IV MODERATE PAIN (PS 4-7); Start 10/31/18 at 12:00; Stop 10/31/18 at 13:00; Status DC Fluoxetine HCl (PROzac) 40 mg DAILY PO Last administered on 11/04/18at 08:33; Start 10/21/18 at 09:00; Stop 11/06/18 at 08:46; Status DC Glucagon (Glucagon) 1 mg ASDIRECTED PRN SC SEE LABEL COMMENTS; Start 10/21/18 at 12:30 Glucose (Glucose) 16 GM ASDIRECTED PRN PO SEE LABEL COMMENTS; Start 10/21/18 at 12:30 Heparin Sodium (Heparin (Flush)) 200 units ASDIRECTED PRN IV SEE LABEL COMMENTS Last administered on 11/09/18at 14:41; Start 10/23/18 at 15:30 Heparin Sodium (Heparin (Flush)) 200 units PICC IV Last administered on 11/10/18at 05:58; Start 10/23/18 at 18:00 Home Med (Med Rec Complete!) ASDIRECTED XX ; Start 10/21/18 at 12:15; Stop 10/05 02/22 at 12:15; Status DC Hydromorphone HCl (Dilaudid) 0.4 mg Q3HP PRN IV MILD PAIN (PS 1-4) Last a dministered on 11/04/18at 06:34; Start 11/03/18 at 10:30; Stop 11/04/18 at 07:55; Status DC Hydromorphone HCl (Dilaudid) 0.4 mg Q4HP PRN IV MILD PAIN (PS 1-4) Last administered on 11/05/18at 06:35; Start 11/04/18 at 08:00; Stop 11/05/18 at 08:49; Status DC Hydromorphone HCl (Dilaudid) 0.4 mg Q6HP PRN IV MILD PAIN (PS 1-4) Last administered on 11/07/18at 05:32; Start 11/05/18 at 09:00; Stop 11/08/18 at 11:58; Status DC Hydromorphone HCl (Dilaudid) 0.5 mg Q15MP PRN IV MODERATE/SEVERE PAIN (PS 5-10); Start 10/31/18 at 12:00; Stop 10/31/18 at 13:00; Status DC Hydromorphone HCl (Dilaudid) 0.6 mg Q3HP PRN IV MILD PAIN (PS 1-4) Last administered on 11/02/18at 16:29; Start 10/23/18 at 08:30; Stop 11/03/18 at 10:27; Status DC Hydromorphone HCl (Dilaudid) 2 mg Q6H PO ; Start 11/10/18 at 14:00 Hydromorphone HCl (Dilaudid) 5 mg Q6H PO Last administered on 11/10/18at 08:38; Start 11/09/18 at 20:00; Stop 11/10/18 at 13:07; Status DC Hydromorphone HCl (Dilaudid) 6 mg Q6H PO Last administered on 11/06/18at 17:54; Start 10/21/18 at 12:00; Stop 11/07/18 at 08:06; Status DC Hydromorphone HCl (Dilaudid) 6 mg Q6H PO Last administered on 11/09/18at 14:41; Start 11/07/18 at 08:00; Stop 11/09/18 at 16:57; Status DC Hydroxyzine HCl (Atarax) 10 mg TID PRN PO ANXIETY; Start 10/21/18 at 12:30 Insulin Human Lispro (HumaLOG INSULIN) SEE PROTOCOL TABLE AC SC ; Start 10/21/18 at 17:30; Stop 10/25/18 at 15:19; Status DC Insulin Human Lispro (HumaLOG INSULIN) SEE PROTOCOL TABLE Q6H SC Last administered on 11/10/18at 12:00; Start 11/03/18 at 18:00 Insulin Human Lispro (HumaLOG INSULIN) SEE PROTOCOL TABLE QHS SC ; Start 10/21/18 at 21:00; Stop 10/25/18 at 15:19; Status DC Insulin Human Lispro (HumaLOG INSULIN) See Protocol Table Q6H SC Last administered on 10/26/18at 13:21; Start 10/25/18 at 18:00; Stop 10/26/18 at 12:01; Status DC Insulin Human Lispro (HumaLOG INSULIN) See Protocol Table Q6H SC Last admi nistered on 10/27/18at 12:32; Start 10/26/18 at 18:00; Stop 10/27/18 at 12:01; Status DC Insulin Human Lispro (HumaLOG INSULIN) See Protocol Table Q6H SC Last administered on 10/28/18at 12:00; Start 10/27/18 at 18:00; Stop 10/28/18 at 12:01; Status DC Insulin Human Lispro (HumaLOG INSULIN) See Protocol Table Q6H SC Last administered on 10/29/18at 11:47; Start 10/28/18 at 18:00; Stop 10/29/18 at 1 2:01; Status DC Insulin Human Lispro (HumaLOG INSULIN) See Protocol Table Q6H SC Last administered on 10/30/18at 13:51; Start 10/29/18 at 18:00; Stop 10/30/18 at 12:01; Status DC Insulin Human Lispro (HumaLOG INSULIN) See Protocol Table Q6H SC Last administered on 10/30/18at 23:35; Start 10/30/18 at 18:00; Stop 10/31/18 at 12:01; Status DC Insulin Human Lispro (HumaLOG INSULIN) See Protocol Table Q6H SC Last administered on 11/01/18at 12:02; Start 10/31/18 at 18:00; Stop 11/01/18 at 12:01; Status DC Insulin Human Lispro (HumaLOG INSULIN) See Protocol Table Q6H SC Last administered on 11/02/18at 13:30; Start 11/01/18 at 18:00; Stop 11/02/18 at 12:01; Status DC Insulin Human Lispro (HumaLOG INSULIN) See Protocol Table Q6H SC Last administered on 11/03/18at 12:21; Start 11/02/18 at 18:00; Stop 11/03/18 at 12:01; Status DC Ketorolac Tromethamine (ToRADol) 30 mg Q6H PRN IV PAIN SCALE 6-10 Last administered on 11/04/18at 14:32; Start 11/02/18 at 10:30; Stop 11/05/18 at 16:00; Status DC Lactated Ringer's 1,000 ml @ 50 mls/hr Q20H IV ; Start 10/31/18 at 12:00; Stop 10/31/18 at 13:00; Status DC Lisinopril (Prinivil) 5 mg QAM PO Last administered on 11/06/18at 16:24; Start 11/06/18 at 09:00; Stop 11/07/18 at 10:15; Status DC Magnesium Hydroxide (Milk Of Magnesia) 30 ml DAILY PRN PO CONSTIPATION; Start 10/21/18 at 12:30 Magnesium Oxide (Mag-Ox) 400 mg DAILY PO Last administered on 11/04/18at 08:32; Start 10/21/18 at 09:00; Stop 11/06/18 at 08:46; Status DC Magnesium Sulfate/ Dextrose 1 gm/IV Miscellaneous Supplies 100 ml @ 100 mls/hr Q1H IV Last administered on 10/26/18at 13:21; Start 10/26/18 at 09:00; Stop 10/26/18 at 10:59; Status DC Metoprolol Tartrate (Lopressor) 5 mg Q4H IV Last administered on 11/01/18at 08:58; Start 10/28/18 at 16:00; Stop 11/01/18 at 17:58; Status DC Metoprolol Tartrate (Lopressor) 5 mg Q6H IV Last administered on 10/28/18at 08:54; Start 10/26/18 at 08:00; Stop 10/28/18 at 13:46; Status DC Miscellaneous (Unresolved Clarification Entry) SEE LABEL COMMENTS DAILY XX ; Start 11/01/18 at 09:00; Stop 11/01/18 at 09:00; Status DC Multivitamins (Theragram-M) 1 tab DAILY PO Last administered on 10/22/18at 09:25; Start 10/21/18 at 09:00; Stop 11/07/18 at 10:15; Status DC Multivitamins 10 ml/Chromium/ Copper/Manganese/ Seleni/Zn 1 ml/ Amino Ac/ Electrol/ Dextrose/Calcium 2,011 ml @ 60 mls/hr ONCE@1800 IV Last administered on 10/26/18at 17:55; Start 10/26/18 at 18:00; Stop 10/27/18 at 17:59; Status DC Multivitamins 10 ml/Chromium/ Copper/Manganese/ Seleni/Zn 1 ml/ Amino Ac/Electrol/ Dextrose/Calcium 2,011 ml @ 60 mls/hr ONCE@1800 IV Last administered on 10/29/18at 18:09; Start 10/29/18 at 18:00; Stop 10/30/18 at 17:59; Status DC Multivitamins 10 ml/Chromium/ Copper/Manganese/ Seleni/Zn 1 ml/ Amino Ac/Electrol/ Dextrose/Calcium 2,011 ml @ 60 mls/hr ONCE@1800 IV Last administered on 11/05/18at 18:07; Start 11/05/18 at 18:00; Stop 11/06/18 at 17:59; Status DC Multivitamins 10 ml/Chromium/ Copper/Manganese/ Seleni/Zn 1 ml/ Amino Ac/E lectrol/ Dextrose/Calcium 2,011 ml @ 60 mls/hr ONCE@1800 IV Last administered on 11/07/18at 18:20; Start 11/07/18 at 18:00; Stop 11/08/18 at 17:59; Status DC Multivitamins 10 ml/Chromium/ Copper/Manganese/ Seleni/Zn 1 ml/ Amino Ac/Electrol/ Dextrose/Calcium 2,011 ml @ 60 mls/hr ONCE@1800 IV Last ad ministered on 11/09/18at 18:24; Start 11/09/18 at 18:00; Stop 11/10/18 at 17:59 Non-Formulary Medication ( See Comment Field Below ) VANCO INTERMIT. DOSING ASDIRECTED XX ; Start 10/30/18 at 06:00; Stop 10/30/18 at 06:00; Status DC Ondansetron HCl (ZOFRAN INJection) 4 mg Q4HP PRN IV NAUSEA OR VOMITING Last administered on 11/06/18 04:59; Start 10/21/18 at 12:30; Stop 11/06/18 at 08:46; Status DC Ondansetron HCl (ZOFRAN INJection) 4 mg RQ6H IV Last administered on 11/10/18 08:00; Start 11/06/18 at 14:00 Pantoprazole Sodium (Protonix) 40 mg BID IV Last administered on 11/10/18 08:41; Start 10/26/18 at 09:00 Pantoprazole Sodium (Protonix) 40 mg BID PO Last administered on 10/22/18 21:28; Start 10/22/18 at 21:00; Stop 10/26/18 at 10:24; Status DC Piperacillin Sod/ Tazobactam Sod 3.375 gm/Dextrose 50 ml @ 50 mls/hr Q6H IV Last administered on 11/01/18 05:05; Start 10/26/18 at 05:00; Stop 11/01/18 at 08:16; Status DC Potassium Chloride 10 meq/ IV Miscellaneous Supplies 100 ml @ 100 mls/hr 0600,0800,1000 IV Last administered on 10/29/18at 10:35; Start 10/29/18 at 06:00; Stop 10/29/18 at 12:00; Status DC Potassium Chloride/Sodium Chloride 1,000 ml @ 150 mls/hr Q6H40M IV Last ad ministered on 10/23/18 06:26; Start 10/21/18 at 13:00; Stop 10/23/18 at 08:16; Status DC Prochlorperazine (Compazine) 25 mg Q12H PRN DE NAUSEA Last administered on 11/03/18 18:37; Start 10/21/18 at 12:30 Promethazine HCl (Phenergan) 25 mg Q8HP PRN PO NAUSEA Last administered on 11/08/18 18:00; Start 11/07/18 at 07:45 Rosuvastatin Calcium (Crestor) 20 mg DAILY PO Last administered on 11/04/18 08:32; Start 10/21/18 at 09:00 Sacubitril/ Valsartan (Entresto 24-26 Mg) 1 tab DAILY PO ; Start 11/05/18 at 09:00; Stop 11/06/18 at 08:46; Status DC Sodium Biphosphate/ Sodium Phosphate (Fleet Enema) 1 ea BID DE Last administered on 11/08/18 21:30; Start 11/07/18 at 09:00; Stop 11/09/18 at 23:59; Status DC Sodium Biphosphate/ Sodium Phosphate (Fleet Enema) 1 ea Q12HP PRN DE CONSTIPATION Last administered on 11/07/18 06:00; Start 11/06/18 at 08:45; Stop 11/07/18 at 07:13; Status DC Sodium Chloride (Saline Lock Flush) 10 ML PICC IV Last administered on 11/10/18 05:59; Start 10/23/18 at 18:00 Sodium Chloride (Saline Lock Flush) 10ML ASDIRECTED PRN IV SEE LABEL COMMENTS Last administered on 11/09/18 14:41; Start 10/23/18 at 15:30 Sucralfate (Carafate) 1 gm ACHS PO Last administered on 11/09/18 09:03; Start 10/21/18 at 12:00 Vancomycin HCl 1000 mg/IV Miscellaneous Supplies 1 each/ Dextrose 270 ml @ 270 mls/hr Q8H IV Last administered on 10/29/18 06:26; Start 10/26/18 at 14:00; Stop 10/29/18 at 14:50; Status DC Allergies Coded Allergies: hydralazine (Verified Allergy, Mild, RASH, 10/31/18) Objective Physical Examination Examination GENERAL APPEARANCE: Emaciated, looks chronically I'll. SKIN: Warm and dry. HEENT:. Palpebral conjunctiva, lips dry. LUNGS: [Clear to auscultation bilaterally. No wheezing appreciated]. HEART: [No chest wall abnormalities. Regular rate and rhythm with no murmurs appreciated]. ABDOMEN: Abdomen is relatively flat, soft, nondistended. He has a left-sided colostomy with still moderate swelling but otherwise appears viable and healthy with a lot of gas inside the bag and a few brownish loose stool EXTREMITIES: No lower extremity edema. Vital Signs Vital Signs Date Time Temp Pulse Resp B/P (MAP) Pulse Ox O2 Delivery O2 Flow Rate FiO2 11/10/18 16:00 97.3 102 16 131/80 (97) 98 11/09/18 12:28 1.0 I&Os I&O- Last 24 Hours up to 6 AM 11/10/18 06:00 Intake Total 100 ml Output Total 1460 ml Balance -1360 ml Laboratory Data Labs 24H Laboratory Tests 2 11/09/18 17:53: Bedside Glucose (Misc Panel) 159H 11/10/18 00:19: Bedside Glucose (Misc Panel) 109H 11/10/18 04:46: Nucleated Red Blood Cells % (auto) 0.0, Anion Gap 7L, Glomerular Filtration Rate > 60.0, Blood Urea Nitrogen 18, Creatinine 0.70, Sodium Level 134L, Potassium Level 4.2, Chloride Level 107, Carbon Dioxide Level 20L, Calcium Level 9.1, Aspartate Amino Transf (AST/SGOT) 7, Alanine Aminotransferase (ALT/SGPT) < 6L, Alkaline Phosphatase 122H, Total Bilirubin 0.4, Total Protein 6.4, Albumin 1.9L, Albumin/Globulin Ratio 0.42L 11/10/18 05:53: Bedside Glucose (Misc Panel) 135H 11/10/18 13:00: Bedside Glucose (Misc Panel) 180H CBC/BMP Laboratory Tests 11/10/18 04:46 Red Blood Count 3.39 L, Mean Corpuscular Volume 86.1, Mean Corpuscular Hemoglobin 27.1, Mean Corpuscular Hemoglobin Concent 31.5 L, Red Cell Distribution Width 16.5 H, Calcium Level 9.1, Aspartate Amino Transf (AST/SGOT) 7, Alanine Aminotransferase (ALT/SGPT) < 6 L, Alkaline Phosphatase 122 H, Total Bilirubin 0.4, Total Protein 6.4, Albumin 1.9 L Impression Ischemic colitis status post sigmoid colon resection with colostomy Chronic pancreatitis Gallbladder distention status post percutaneous placement of cholecystostomy tube Spoke to the nurse with regards to the patient as he seems to be very sleepy. He is on scheduled dose of Dilaudid and I asked her to give the medical doctors call for possible adjustment of the pain regimen. Overall abdomen looks benign and he is having bowel function from his colostomy. He be encouraged to take more oral intake to try to wean him off the TPN. No signs of active bleeding on upper endoscopy and flexible sigmoidoscopy through the colostomy yesterday. Plan / VTE VTE Prophylaxis Ordered?: Yes (SCD/TEDS) VTE Exclusion Pharmacological: Active Bleeding JUAN DAVID VANCE MD Nov 10, 2018 17:14
[2018-11-10] MEDS ORDERED: FAT EMULSION IV 20% 500 ML IV SCH (18:00)
[2018-11-10] MEDS ORDERED: AMINO AC/ELECTROLYTE/DEX/CALC 2,000 ML IV SCH (18:00)
[2018-11-10 20:00] VITALS: BP 118/78
[2018-11-10 23:59] VITALS: BP 112/78
[2018-11-11] MEDS: ONDANSETRON 4MG/2ML VIAL (J2405) IV SCH ×4 (01:15→20:27)
[2018-11-11] MEDS: HYDROmorphone 2 MG TAB PO SCH ×4 (01:16→20:00)
[2018-11-11 04:00] VITALS: BP 117/87
[2018-11-11 05:13] LABS: HEMATOCRIT 29.4 % (42.0-52.0); HEMOGLOBIN 9.3 g/dl (13.5-17.5); MEAN CORPUSCULAR HGB CONC 31.6 g/dl (32.0-36.5); MEAN CORPUSCULAR VOLUME 85.2 fl (80.0-96.0); PLATELET COUNT, AUTOMATED 223 10^3/uL (150-450); RED BLOOD COUNT 3.45 10^6/uL (4.30-6.10); WHITE BLOOD COUNT 7.8 10^3/uL (4.0-10.0)
[2018-11-11 05:36] LABS: ALBUMIN 1.8 GM/DL (3.2-5.2); ALT/SGPT 6 U/L (12-78); BILIRUBIN,TOTAL 0.4 MG/DL (0.2-1.0); BLOOD UREA NITROGEN 17 MG/DL (7-18); CALCIUM LEVEL 8.8 MG/DL (8.5-10.1); CARBON DIOXIDE LEVEL 20 MEQ/L (21-32); CHLORIDE LEVEL 107 MEQ/L (98-107); CREATININE FOR GFR 0.72 MG/DL (0.70-1.30); GLOMERULAR FILTRATION RATE > 60.0 (>56); GLUCOSE, FASTING 153 MG/DL (70-100); POTASSIUM SERUM 4.1 MEQ/L (3.5-5.1); SODIUM LEVEL 135 MEQ/L (136-145); TOTAL PROTEIN 6.5 GM/DL (6.4-8.2)
[2018-11-11] MEDS: HumaLOG INSULIN (NovoLOG) PER UNIT SC SCH ×3 (05:59→18:00)
[2018-11-11] MEDS: SODIUM CHLORIDE 0.9% INJ 10 ML SYR IV SCH ×2 (05:59→18:00)
[2018-11-11] MEDS: PANTOPRAZOLE 40MG INJ (PROTONIX) (C9113) IV SCH ×2 (07:48→20:27)
[2018-11-11] MEDS: SODIUM CHLORIDE 0.9% INJ 10 ML SYR IV PRN ×2 (07:49→14:12)
[2018-11-11 08:00] VITALS: BP 117/82
[2018-11-11] MEDS: SUCRALFATE 1 GM TAB PO SCH ×4 (08:01→20:27)
[2018-11-11] MEDS: AMIODARONE 200 MG TAB (PACERONE) PO SCH (08:02)
[2018-11-11] MEDS: ROSUVASTATIN 10 MG TAB (CRESTOR) PO SCH (08:02)
[2018-11-11] MEDS: CARVedilol 6.25 MG TAB PO SCH ×2 (08:02→20:27)
[2018-11-11 12:00] VITALS: BP 116/82
[2018-11-11] MEDS: DRONABINOL 2.5 MG CAP (MARINOL) PO SCH ×2 (12:00→17:26)
--- NOTE | 2018-11-11 15:57 | IPNPDOC ---
Subjective Date Seen The patient was seen on 11/11/18. Subjective Chief Complaint/HPI persistent nausea/anorexia Constitutional: Denies: Chills, Fever Eyes: Denies: Pain ENT: Denies: Head Aches Pulmonary: Denies: Dyspnea Cardiovascular: Denies: Chest Pain, Palpitations Gastrointestinal: Reports: Nausea Genitourinary: Denies: Dysuria Objective Physical Examination General Exam: Positive: Alert, No Acute Distress, Other (Wakes to verbal stimuli, but fell back to sleep. C/O pain when awake) Chest Exam: Positive: Normal air movement; Negative: Rhonchi, Wheezing Heart Exam: Positive: Rate Normal, Regular Rhythm, Normal S1, Normal S2 Abdomen Exam: Positive: Normal bowel sounds, Soft, Tenderness, Other (Ostomy with liquid redish-brown stool No clots) Extremity Exam: Positive: Edema (trace - 1+ ankle edema) Assessment /Plan Problems (1) Chronic abdominal pain Status: Acute Problem Text: favor 2 chronic pancreatitis +/- diabetic/narcotic gastroparesis +/- MDD no real subjective improvement c pancreatic rest nor colostomy for sigmoid stricture Contingency: ? ERCP to decompress possible dilated pancreatic duct vs celiac axis block; obviously poor surgical candidate 11/09 HM 6 q6H to 5 q6H, + Marinol 2.5 BID (off IV HM since 11/07/18 530)-without improvement of N/abdominal pain, but actually oversedated c urinary incontinence; therefore, 11/10 decreased HM to 2 q6H prn refusing all po meds x HM Continue ondan 4 IV q6H, prometh 25 q prn, panto 40 IV BID 11/09/18 H pylori P 11/09/18 EGD mild gastritis Aureliano remains on TPN via PICC for pancreatic rest/nutrition since 10/23/18 10/21/18: CT AP: 1. A catheter is present in the gallbladder. 2. There is increased density in the pancreatic region likely representing edema and residual fluid collections. There is no definite new fluid collection. 3. There is thickening of a wall of a small segment of sigmoid colon with surrounding edema that may represent inflammatory bowel disease. 4. There is a small amount of free fluid in the abdomen. (2) GI bleeding Status: Acute Problem Text: no further obvious ostomy bleeding 11/11 hgb 9.3-stable since 4/2 2u tx 4/5 EGD/sigmoidoscopy mild gastritis, superficial colostomy ischemia-Aureliano (3) CAD (coronary artery disease) Status: Chronic Problem Text: no active angina c ischemic CMP (4) Pancreatitis Permanent Comment: ? etiology-favor hyperTG (08/09/18 TG 506), +/- gliptin use (was on stevo) 10/23/18 CA-19-9 24 10/23/18 24 08/10/18 lipase 820 Last Edited By: Hari Hoang MD on Oct 23, 2018 17:54 Status: Acute Problem Text: as per abdominal pain unable to do MRCP 2 AICD ? etiology-favor hyperTG (08/09/18 TG 506), +/- gliptin use (was on stevo) 10/23/18 CA-19-9 24 10/23/18 24 08/10/18 lipase 820 (5) Stricture of sigmoid colon Status: Acute Response to Treatment: Stable Problem Text: 10/31: robotic assisted sigmoid colectomy and diverting colostomy pathology: segment of sigmoid colon with a segment of marked mucosal ulceration, transmural inflammation and marked stenosis, no malignancy is identified. (6) Systolic and diastolic CHF, acute on chronic Status: Chronic Problem Text: Remains euvolemic on current regimen Echo 09/03/18: EF 30% Normal sinus rhythm with dual-chamber pacemaker. Appropriate atrial sensing and tracking with consistent ventricular paced. Paced QRS complexes with left bundle branch block QRS configuration. M-mode and two-dimensional echocardiography was performed with pulsed, continuous wave, color flow and tissue Doppler studies. Moderately dilated left ventricle with borderline hypertrophy. Paradoxical septal wall motion and apical akinesis related to right ventricular paced rhythm. Moderate to moderately severe impairment of global resting systolic function. Mildly dilated left atrium with impairment of LV diastolic function and elevated mean left atrial pressure. Right heart chamber sizes upper limits of normal with right ventricular hypokinesis and Doppler evidence of moderate pulmonary hypertension. Mildly dilated IVC with slightly reduced respiratory collapse suggestive of central venous pressure of approximately 10 - 15 mmHg. Slight aortic valvular sclerosis with adequate cusp separation but premature cusp closure in keeping with reduced forward stroke volume. (7) DM2 (diabetes mellitus, type 2) Status: Chronic Problem Text: BG mid 100s s hypos on solely SSLI QID (8) Malnutrition Status: Chronic Problem Text: TPN as per chronic abdominal pain favor change to enteral feeding given no real improvement of abdominal pain on TPN 11/10 alb stable at 1.9 (9) Acalculous cholecystitis Status: Chronic Problem Text: sp percutaneous drainage plan lap key in future (10) Physical deconditioning Status: Chronic Problem Text: 11/08 safe for dc per PT Plan/VTE VTE Prophylaxis Ordered?: Yes (SCD/TEDS) VTE Exclusion Pharmacological: Active Bleeding Plan Therapy: PT VS, I&O, 24H, Fishbone Vital Signs/I&O Vital Signs Date Time Temp Pulse Resp B/P (MAP) Pulse Ox O2 Delivery O2 Flow Rate FiO2 11/11/18 14:49 18 11/11/18 12:00 97.5 108 116/82 (93) 95 11/09/18 12:28 1.0 I&O- Last 24 Hours up to 6 AM 11/11/18 06:00 Intake Total 1810 ml Output Total 2250 ml Balance -440 ml Laboratory Data 24H LABS Laboratory Tests 2 11/10/18 18:20: Bedside Glucose (Misc Panel) 95 11/10/18 23:37: Bedside Glucose (Misc Panel) 157H 11/11/18 04:58: Nucleated Red Blood Cells % (auto) 0.0, Anion Gap 8, Glomerular Filtration Rate > 60.0, Blood Urea Nitrogen 17, Creatinine 0.72, Sodium Level 135L, Potassium Level 4.1, Chloride Level 107, Carbon Dioxide Level 20L, Calcium Level 8.8, Aspartate Amino Transf (AST/SGOT) 7, Alanine Aminotransferase (ALT/SGPT) 6L, Alkaline Phosphatase 145H, Total Bilirubin 0.4, Total Protein 6.5, Albumin 1.8L, Albumin/Globulin Ratio 0.38L 11/11/18 11:25: Bedside Glucose (Misc Panel) 170H CBC/BMP Laboratory Tests 11/11/18 04:58 Red Blood Count 3.45 L, Mean Corpuscular Volume 85.2, Mean Corpuscular Hemoglobin 27.0, Mean Corpuscular Hemoglobin Concent 31.6 L, Red Cell Distributi on Width 16.4 H, Calcium Level 8.8, Aspartate Amino Transf (AST/SGOT) 7, Alanine Aminotransferase (ALT/SGPT) 6 L, Alkaline Phosphatase 145 H, Total Bilirubin 0.4, Total Protein 6.5, Albumin 1.8 L Hari Hoang M.D. Nov 11, 2018 15:56
[2018-11-11 16:00] VITALS: BP 118/85
[2018-11-11] MEDS ORDERED: KETOROLAC 30 MG/ML VIAL (J1885) IV ONE (17:00)
[2018-11-11] MEDS ORDERED: AMINO AC/ELECTROLYTE/DEX/CALC 2,000 ML IV SCH (18:00)
[2018-11-11] MEDS ORDERED: FAT EMULSION IV 20% 500 ML IV SCH (18:00)
[2018-11-11 20:00] VITALS: BP 107/74
[2018-11-12] VITALS: BP 121/77
[2018-11-12] MEDS: ONDANSETRON 4MG/2ML VIAL (J2405) IV SCH ×4 (02:17→19:56)
[2018-11-12] MEDS: HYDROmorphone 2 MG TAB PO SCH ×4 (02:17→20:19)
[2018-11-12 04:00] VITALS: BP 122/81
[2018-11-12 05:20] LABS: HEMATOCRIT 29.4 % (42.0-52.0); HEMOGLOBIN 9.3 g/dl (13.5-17.5); MEAN CORPUSCULAR HEMOGLOBIN 26.4 pg (27.0-33.0); MEAN CORPUSCULAR HGB CONC 31.6 g/dl (32.0-36.5); MEAN CORPUSCULAR VOLUME 83.5 fl (80.0-96.0); PLATELET COUNT, AUTOMATED 249 10^3/uL (150-450); RED BLOOD COUNT 3.52 10^6/uL (4.30-6.10); WHITE BLOOD COUNT 8.4 10^3/uL (4.0-10.0)
[2018-11-12 05:45] LABS: ALBUMIN 1.9 GM/DL (3.2-5.2); ALT/SGPT < 6 U/L (12-78); BILIRUBIN,TOTAL 0.4 MG/DL (0.2-1.0); BLOOD UREA NITROGEN 23 MG/DL (7-18); CARBON DIOXIDE LEVEL 20 MEQ/L (21-32); CHLORIDE LEVEL 107 MEQ/L (98-107); CREATININE FOR GFR 0.82 MG/DL (0.70-1.30); GLOMERULAR FILTRATION RATE > 60.0 (>56); GLUCOSE, FASTING 185 MG/DL (70-100); POTASSIUM SERUM 4.3 MEQ/L (3.5-5.1); SODIUM LEVEL 135 MEQ/L (136-145); TOTAL PROTEIN 6.8 GM/DL (6.4-8.2)
[2018-11-12] MEDS: SODIUM CHLORIDE 0.9% INJ 10 ML SYR IV SCH ×2 (06:00→18:30)
[2018-11-12] MEDS: HumaLOG INSULIN (NovoLOG) PER UNIT SC SCH ×5 (06:12→23:56)
[2018-11-12] MEDS: SUCRALFATE 1 GM TAB PO SCH ×4 (07:30→20:20)
[2018-11-12] MEDS: PANTOPRAZOLE 40MG INJ (PROTONIX) (C9113) IV SCH ×2 (07:46→20:19)
[2018-11-12] MEDS: AMIODARONE 200 MG TAB (PACERONE) PO SCH (07:47)
[2018-11-12] MEDS: ROSUVASTATIN 10 MG TAB (CRESTOR) PO SCH (07:47)
[2018-11-12] MEDS: CARVedilol 6.25 MG TAB PO SCH ×2 (07:47→20:20)
[2018-11-12] MEDS: SODIUM CHLORIDE 0.9% INJ 10 ML SYR IV PRN ×2 (07:50→20:22)
[2018-11-12 08:00] VITALS: BP 126/88
--- NOTE | 2018-11-12 09:09 | IPNPDOC ---
Subjective Date Seen The patient was seen on 11/12/18. Subjective Chief Complaint/HPI Pt in bed with GF at bedside. He is agitated this morning. C/o persistent nausea and abd pain. Refusing PO meds d/t nausea. reports taking Dilaudid this morning and then vomiting the water he drank with the medication about 10 minutes later. He states that his pain is no better controlled than it was prior to coming into the [facility]. States that if there is nothing else to be done here, he wants to go to [facility]. Constitutional: Denies: Chills, Fever Pulmonary: Denies: Dyspnea, Cough Cardiovascular: Denies: Chest Pain, Palpitations Gastrointestinal: Reports: Nausea, Vomiting, Abdominal Pain Neurological: Reports: Weakness Psych: Reports: Anxiety, Depression, Anger Objective Physical Examination General Exam: Positive: Alert, No Acute Distress, Other (Agitated) ENT Exam: Positive: Mucous membr. moist/pink Chest Exam: Positive: Normal air movement; Negative: Rhonchi, Wheezing Heart Exam: Positive: Rate Normal, Regular Rhythm, Normal S1, Normal S2 Abdomen Exam: Positive: Normal bowel sounds, Soft, Tenderness, Other (Ostomy with liquid brown stool) Extremity Exam: Positive: Edema (trace - 1+ ankle edema) Assessment /Plan Problems (1) Chronic abdominal pain Status: Acute Problem Text: favor 2 chronic pancreatitis +/- diabetic/narcotic gastroparesis +/- functional no real subjective improvement c pancreatic rest nor colostomy for sigmoid stricture Contingency: colonoscopy to evaluate R colon, ? ERCP to decompress possible dilated pancreatic duct vs celiac axis block; obviously poor surgical candidate 11/12/18 case d/w Dr. Burkett who favored CTA AP to evaluate for possible TN as source of pain and then colon (by himself or Bryden) to evaluate R colon (pain has always seemed to emanate from RLQ); then tc tx for EUS for possible diagnos tic/therapeutic celiac axis block 4/ HM 6 q6H to 5 q6H, + Marinol 2.5 BID (off IV HM since 11/07/18 530)-without improvement of N/abdominal pain, but actually oversedated c urinary incontinence; therefore, 11/10 decreased HM to 2 q6H prn refusing all po meds x HM Continue ondan 4 IV q6H, prometh 25 q prn, panto 40 IV BID 11/09/18 H pylori P 11/09/18 EGD mild gastritis Aureliano remains on TPN via PICC for pancreatic rest/nutrition since 10/23/18 11/12/18 pancreatic US s obvious ductal dilatation 11/12/18 CTA AP celiac and SMA widely patent; JEFFREY not visualized; no pancreatic abscess/fluid collection 10/21/18: CT AP: 1. A catheter is present in the gallbladder. 2. There is increased density in the pancreatic region likely representing edema and residual fluid collections. There is no definite new fluid collection. 3. There is thickening of a wall of a small segment of sigmoid colon with surrounding edema that may represent inflammatory bowel disease. 4. There is a small amount of free fluid in the abdomen. (2) GI bleeding Status: Acute Problem Text: no further obvious ostomy bleeding 11/11 hgb 9.3-stable since 11/06 2u tx 11/09 EGD/sigmoidoscopy mild gastritis, superficial colostomy ischemia-Aureliano (3) CAD (coronary artery disease) Status: Chronic Problem Text: no active angina c ischemic CMP (4) Pancreatitis Permanent Comment: ? etiology-favor hyperTG (08/09/18 TG 506), +/- gliptin use (was on stevo) 10/23/18 CA-19-9 24 10/23/18 24 08/10/18 lipase 820 Last Edited By: Hari Hoang MD on Oct 23, 2018 17:54 Status: Acute Problem Text: as per abdominal pain unable to do MRCP 2 AICD ? etiology-favor hyperTG (08/09/18 TG 506), +/- gliptin use (was on stevo) 10/23/18 CA-19-9 24 10/23/18 24 08/10/18 lipase 820 (5) Stricture of sigmoid colon Status: Acute Response to Treatment: Stable Problem Text: 10/31: robotic assisted sigmoid colectomy and diverting colostomy pathology: segment of sigmoid colon with a segment of marked mucosal ulceration, transmural inflammation and marked stenosis, no malignancy is identified. (6) Systolic and diastolic CHF, acute on chronic Status: Chronic Problem Text: Remains euvolemic on current regimen Echo 09/03/18: EF 30% Normal sinus rhythm with dual-chamber pacemaker. Appropriate atrial sensing and tracking with consistent ventricular paced. Paced QRS complexes with left bundle branch block QRS configuration. M-mode and two-dimensional echocardiography was performed with pulsed, continuous wave, color flow and tissue Doppler studies. Moderately dilated left ventricle with borderline hypertrophy. Paradoxical septal wall motion and apical akinesis related to right ventricular paced rhythm. Moderate to moderately severe impairment of global resting systolic function. Mildly dilated left atrium with impairment of LV diastolic function and elevated mean left atrial pressure. Right heart chamber sizes upper limits of normal with right ventricular hypokinesis and Doppler evidence of moderate pulmonary hypertension. Mildly dilated IVC with slightly reduced respiratory collapse suggestive of central venous pressure of approximately 10 - 15 mmHg. Slight aortic valvular sclerosis with adequate cusp separation but premature cusp closure in keeping with reduced forward stroke volume. (7) DM2 (diabetes mellitus, type 2) Status: Chronic Problem Text: BG mid 100s s hypos on solely SSLI QID (8) Malnutrition Status: Chronic Problem Text: TPN as per chronic abdominal pain favor change to enteral feeding given no real improvement of abdominal pain on TPN 11/10 alb stable at 1.9 (9) Acalculous cholecystitis Status: Chronic Problem Text: sp percutaneous drainage plan lap key in future (10) Physical deconditioning Status: Chronic Problem Text: 11/08 safe for dc per PT Plan/VTE VTE Prophylaxis Ordered?: Yes (SCD/TEDS) VTE Exclusion Pharmacological: Active Bleeding Plan Therapy: PT VS, I&O, 24H, Fishbone Vital Signs/I&O Vital Signs Date Time Temp Pulse Resp B/P (MAP) Pulse Ox O2 Delivery O2 Flow Rate FiO2 11/12/18 08:00 96.7 110 18 126/88 (101) 94 11/09/18 12:28 1.0 I&O- Last 24 Hours up to 6 AM 11/12/18 06:00 Intake Total 20 ml Output Total 1735 ml Balance -1715 ml Laboratory Data 24H LABS Laboratory Tests 2 11/11/18 11:25: Bedside Glucose (Misc Panel) 170H 11/11/18 17:45: Bedside Glucose (Misc Panel) 170H 11/12/18 00:23: Bedside Glucose (Misc Panel) 138H 11/12/18 05:01: Nucleated Red Blood Cells % (auto) 0.0, Anion Gap 8, Glomerular Filtration Rate > 60.0, Blood Urea Nitrogen 23H, Creatinine 0.82, Sodium Level 135L, Potassium Level 4.3, Chloride Level 107, Carbon Dioxide Level 20L, Calcium Level 9.0, Aspartate Amino Transf (AST/SGOT) 7, Alanine Aminotransferase (ALT/SGPT) < 6L, Alkaline Phosphatase 138H, Total Bilirubin 0.4, Total Protein 6.8, Albumin 1.9L, Albumin/Globulin Ratio 0.39L CBC/BMP Laboratory Tests 11/12/18 05:01 Red Blood Count 3.52 L, Mean Corpuscular Volume 83.5, Mean Corpuscular Hemoglobin 26.4 L, Mean Corpuscular Hemoglobin Concent 31.6 L, Red Cell Distribution Width 16.3 H, Calcium Level 9.0, Aspartate Amino Transf (AST/SGOT) 7, Alanine Aminotransferase (ALT/SGPT) < 6 L, Alkaline Phosphatase 138 H, Total Bilirubin 0.4, Total Protein 6.8, Albumin 1.9 L DESEAN LUQUE PA-C Nov 12, 2018 09:09 Hari Hoang M.D. Nov 12, 2018 15:18
[2018-11-12] MEDS ORDERED: ISOVUE-370 76% 100ML VIAL (Q9967) As Ordered ONE (10:54)
[2018-11-12] MEDS: DRONABINOL 2.5 MG CAP (MARINOL) PO SCH ×2 (12:00→14:53)
[2018-11-12 12:07] VITALS: BP 123/89
[2018-11-12 14:00] VITALS: BP 126/89
--- NOTE | 2018-11-12 14:04 | REP ---
CT angiography of the abdomen and pelvis with IV contrast: History: Persistent left lower quadrant pain. History of pancreatitis. History of left colectomy for left colon inflammation. Comparison CT study is from October 21, 2018 CT contrast dose: 100 mL of intravenous Isovue 370. CT findings: Preliminary digital breaker mechanic radiograph demonstrates a left lower quadrant colostomy. A biliary drainage catheter is noted in the right upper quadrant. Pacemaker leads are seen in the heart. Bowel gas pattern shows one or two loops of air-filled small bowel in the central abdomen on the left. Axial CT images demonstrate moderate bilateral pleural effusions. No pericardial effusion is seen. No adrenal lesion is observed. Percutaneous cholecystostomy tube remains in place. Peripancreatic soft tissues show edema. No mature pseudocyst is seen. No evidence of abscess or hemorrhagic change. There is a diffuse edematous pattern to the pancreas. A left lower quadrant colostomy is observed. There is a small quantity of fluid around the colostomy in the subcutaneous fat. No intra-abdominal fluid collection is seen. Prostate, seminal vesicles, and urinary bladder are unremarkable. There is a suture line in the right lower quadrant anteriorly. A normal appendix is again seen. Small and large bowel loops are unremarkable in the abdomen and pelvis on CT images. There is moderate atherosclerotic irregularity of the suprarenal and infrarenal abdominal aorta. No aortic stenosis is seen. There is 50% stenosis at the origin of the common iliac on the left. There is a small accessory renal artery on the right. Does not appear to be patent. There is heavy aortoiliac vascular calcification and femoral vascular calcification bilaterally. Impression: 1. Pancreatitis picture with diffuse peripancreatic and intrapancreatic swelling. No established or mature fluid collection is seen. 2. Percutaneous cholecystostomy tube. 3. Moderate bilateral pleural effusions. 4. Small quantity of fluid is seen partially surrounding the left lower quadrant colostomy. 5. Celiac and superior mesenteric arteries are widely patent. The JEFFREY artery is not seen. Moderate atherosclerotic plaquing and calcification seen. Electronically Signed by Everett Kent MD 11/12/2018 05:35 P
--- NOTE | 2018-11-12 14:32 | REP ---
RIGHT UPPER QUADRANT SONOGRAPHY: HISTORY: Abdomen pain. Evaluate for dilated pancreatic duct. FINDINGS: Exam quality inhibited by patient pain tolerance and multiple postoperative anil still in place in the abdomen. Scanning demonstrates percutaneous cholecystostomy tube. A right pleural effusion is noted. No focal liver lesion is seen. Common bile duct is normal measuring 0.4 cm in greatest diameter. Pancreatic visualization is limited. A small portion of the pancreatic head is seen. Pancreatic duct does not appear dilated in this portion. There is no evidence of diffuse ascites. The right kidney measures 13.8 x 4.3 x 4.8 cm. No right renal abnormality is observed. IMPRESSION: Pancreatic visualization is limited but no pancreatic or biliary ductal dilation is observed. Drainage tube in the gallbladder. Right pleural effusion. Electronically Signed by Everett Kent MD 11/12/2018 05:38 P
[2018-11-12] MEDS ORDERED: MULTIVITAMIN -ADULT INJECTION 10 ML, CR/CU/SE/MN/ZN INJ 1 ML in AMINO AC/ELECTROLYTE/DE... IV SCH (18:00)
[2018-11-12] MEDS ORDERED: FAT EMULSION IV 20% 500 ML IV SCH (18:00)
[2018-11-12 22:00] VITALS: BP 121/86
[2018-11-13] MEDS: ONDANSETRON 4MG/2ML VIAL (J2405) IV SCH ×4 (01:53→21:17)
[2018-11-13] MEDS: HYDROmorphone 2 MG TAB PO SCH ×4 (02:12→21:18)
[2018-11-13] MEDS: SODIUM CHLORIDE 0.9% INJ 10 ML SYR IV SCH ×2 (02:12→18:00)
[2018-11-13 06:00] VITALS: BP 120/84
[2018-11-13 06:10] LABS: BASO # 0.1 10^3/uL (0.0-0.2); BASO % 1.2 % (0.0-1.0); EOS # 0.4 10^3/uL (0.0-0.50); HEMATOCRIT 30.1 % (42.0-52.0); HEMOGLOBIN 9.4 g/dl (13.5-17.5); LYMPH % 11.9 % (24.0-44.0); MEAN CORPUSCULAR HEMOGLOBIN 26.6 pg (27.0-33.0); MEAN CORPUSCULAR HGB CONC 31.2 g/dl (32.0-36.5); MEAN CORPUSCULAR VOLUME 85.3 fl (80.0-96.0); MONO # 0.8 10^3/uL (0.0-0.8); NEUTROPHILS # 6.2 10^3/uL (1.8-7.7); NEUTROPHILS % 71.5 % (36.0-66.0); PLATELET COUNT, AUTOMATED 259 10^3/uL (150-450); RED BLOOD COUNT 3.53 10^6/uL (4.30-6.10); WHITE BLOOD COUNT 8.6 10^3/uL (4.0-10.0)
[2018-11-13 06:34] LABS: ALBUMIN 2.1 GM/DL (3.2-5.2); ALT/SGPT 7 U/L (12-78); BILIRUBIN,TOTAL 0.4 MG/DL (0.2-1.0); BLOOD UREA NITROGEN 22 MG/DL (7-18); CALCIUM LEVEL 8.9 MG/DL (8.5-10.1); CARBON DIOXIDE LEVEL 19 MEQ/L (21-32); CHLORIDE LEVEL 106 MEQ/L (98-107); CREATININE FOR GFR 0.72 MG/DL (0.70-1.30); GLOMERULAR FILTRATION RATE > 60.0 (>56); GLUCOSE, FASTING 177 MG/DL (70-100); PHOSPHORUS LEVEL 3.6 MG/DL (2.5-4.9); POTASSIUM SERUM 4.3 MEQ/L (3.5-5.1); SODIUM LEVEL 133 MEQ/L (136-145); TOTAL PROTEIN 7.1 GM/DL (6.4-8.2)
[2018-11-13] MEDS: HumaLOG INSULIN (NovoLOG) PER UNIT SC SCH ×3 (06:35→18:00)
[2018-11-13] MEDS: SUCRALFATE 1 GM TAB PO SCH ×4 (07:30→21:00)
[2018-11-13] MEDS: PANTOPRAZOLE 40MG INJ (PROTONIX) (C9113) IV SCH ×2 (09:00→21:17)
[2018-11-13] MEDS: CARVedilol 6.25 MG TAB PO SCH ×2 (09:00→21:00)
[2018-11-13] MEDS: ROSUVASTATIN 10 MG TAB (CRESTOR) PO SCH (09:00)
[2018-11-13] MEDS: AMIODARONE 200 MG TAB (PACERONE) PO SCH (09:00)
[2018-11-13 10:00] VITALS: BP 120/80
[2018-11-13] MEDS: DRONABINOL 2.5 MG CAP (MARINOL) PO SCH ×2 (12:00→17:24)
--- NOTE | 2018-11-13 12:05 | IPNPDOC ---
Subjective Date Seen The patient was seen on 11/13/18. Subjective Chief Complaint/HPI Pt c/o persistent abd pain, mostly R sided, unchanged. General: Reports: Fatigue Constitutional: Denies: Chills, Fever Pulmonary: Denies: Dyspnea, Cough Cardiovascular: Denies: Chest Pain, Palpitations Gastrointestinal: Reports: Nausea, Vomiting, Abdominal Pain Neurological: Reports: Weakness Psych: Reports: Depression Objective Physical Examination General Exam: Positive: Alert, No Acute Distress, Other (sleeping soundly when I entered the room, awakens to voice) ENT Exam: Positive: Mucous membr. moist/pink Chest Exam: Positive: Normal air movement; Negative: Rhonchi, Wheezing Heart Exam: Positive: Rate Normal, Regular Rhythm, Normal S1, Normal S2 Abdomen Exam: Positive: Normal bowel sounds, Soft, Tenderness, Other (Ostomy with liquid brown stool) Extremity Exam: Positive: Edema (trace - 1+ ankle edema) Psych Exam: Positive: Mental status NL Assessment /Plan Problems (1) Chronic abdominal pain Status: Acute Problem Text: 11/13 D/w attending, plans to reach out to [facility] for consideration for colonscopy to further assess R sided abd pain favor 2 chronic pancreatitis +/- diabetic/narcotic gastroparesis +/- functional no real subjective improvement c pancreatic rest nor colostomy for sigmoid stricture Contingency: colonoscopy to evaluate R colon, ? ERCP to decompress possible dilated pancreatic duct vs celiac axis block; obviously poor surgical candidate 11/12/18 case d/w Dr. Burkett who favored CTA AP to evaluate for possible MD as source of pain and then colon (by himself or Aureliano) to evaluate R colon (pain has always seemed to emanate from RLQ); then tc tx for EUS for possible diagnostic/therapeutic celiac axis block 11/09 HM 6 q6H to 5 q6H, + Marinol 2.5 BID (off IV HM since 11/07/18 530)-without improvement of N/abdominal pain, but actually oversedated c urinary incontinence; therefore, 11/10 decreased HM to 2 q6H prn refusing all po meds x HM Continue ondan 4 IV q6H, prometh 25 q prn, panto 40 IV BID 11/09/18 H pylori P 11/09/18 EGD mild gastritis Aureliano remains on TPN via PICC for pancreatic rest/nutrition since 10/23/18 11/12/18 pancreatic US s obvious ductal dilatation 11/12/18 CTA AP celiac and SMA widely patent; JEFFREY not visualized; no pancreatic abscess/fluid collection 10/21/18: CT AP: 1. A catheter is present in the gallbladder. 2. There is increased density in the pancreatic region likely representing edema and residual fluid collections. There is no definite new fluid collection. 3. There is thickening of a wall of a small segment of sigmoid colon with surrounding edema that may represent inflammatory bowel disease. 4. There is a small amount of free fluid in the abdomen. (2) GI bleeding Status: Acute Problem Text: no further obvious ostomy bleeding 11/11 hgb 9.3-stable since 11/06 2u tx 11/09 EGD/sigmoidoscopy mild gastritis, superficial colostomy ischemia-Aureliano (3) CAD (coronary artery disease) Status: Chronic Problem Text: no active angina c ischemic CMP (4) Pancreatitis Permanent Comment: ? etiology-favor hyperTG (08/09/18 TG 506), +/- gliptin use (was on stevo) 10/23/18 CA-19-9 24 10/23/18 24 08/10/18 lipase 820 Last Edited By: Hari Hoang MD on Oct 23, 2018 17:54 Status: Acute Problem Text: as per abdominal pain unable to do MRCP 2 AICD ? etiology-favor hyperTG (08/09/18 TG 506), +/- gliptin use (was on stevo) 10/23/18 CA-19-9 24 10/23/18 24 08/10/18 lipase 820 (5) Stricture of sigmoid colon Status: Acute Response to Treatment: Stable Problem Text: 10/31: robotic assisted sigmoid colectomy and diverting colostomy pathology: segment of sigmoid colon with a segment of marked mucosal ulceration, transmural inflammation and marked stenosis, no malignancy is identified. (6) Systolic and diastolic CHF, acute on chronic Status: Chronic Problem Text: Remains euvolemic on current regimen Echo 09/03/18: EF 30% Normal sinus rhythm with dual-chamber pacemaker. Appropriate atrial sensing and tracking with consistent ventricular paced. Paced QRS complexes with left bundle branch block QRS configuration. M-mode and two-dimensional echocardiography was performed with pulsed, continuous wave, color flow and tissue Doppler studies. Moderately dilated left ventricle with borderline hypertrophy. Paradoxical septal wall motion and apical akinesis related to right ventricular paced rhythm. Moderate to moderately severe impairment of global resting systolic function. Mildly dilated left atrium with impairment of LV diastolic function and elevated mean left atrial pressure. Right heart chamber sizes upper limits of normal with right ventricular hypokinesis and Doppler evidence of moderate pulmonary hypertension. Mildly dilated IVC with slightly reduced respiratory collapse suggestive of central venous pressure of approximately 10 - 15 mmHg. Slight aortic valvular sclerosis with adequate cusp separation but premature cusp closure in keeping with reduced forward stroke volume. (7) DM2 (diabetes mellitus, type 2) Status: Chronic Problem Text: BG mid 100s s hypos on solely SSLI QID (8) Malnutrition Status: Chronic Problem Text: TPN as per chronic abdominal pain favor change to enteral feeding given no real improvement of abdominal pain on TPN 11/10 alb stable at 1.9 (9) Acalculous cholecystitis Status: Chronic Problem Text: sp percutaneous drainage plan lap key in future (10) Physical deconditioning Status: Chronic Problem Text: 11/08 safe for dc per PT Plan/VTE VTE Prophylaxis Ordered?: Yes (SCD/TEDS) VTE Exclusion Pharmacological: Active Bleeding Plan Therapy: PT VS, I&O, 24H, Fishbone Vital Signs/I&O Vital Signs Date Time Temp Pulse Resp B/P (MAP) Pulse Ox O2 Delivery O2 Flow Rate FiO2 11/13/18 10:00 97.6 104 17 120/80 (93) 92 11/09/18 12:28 1.0 I&O- Last 24 Hours up to 6 AM 11/13/18 06:00 Intake Total 2100 ml Output Total 1450 ml Balance 650 ml Laboratory Data 24H LABS Laboratory Tests 2 11/12/18 12:39: Bedside Glucose (Misc Panel) 175H 11/12/18 16:36: Bedside Glucose (Misc Panel) 169H 11/12/18 23:52: Bedside Glucose (Misc Panel) 146H 11/13/18 05:43: Immature Granulocyte % (Auto) 1.4, White Blood Count 8.6, Red Blood Count 3.53L, Hemoglobin 9.4L, Hematocrit 30.1L, Mean Corpuscular Volume 85.3, Mean Corpuscular Hemoglobin 26.6L, Mean Corpuscular Hemoglobin Concent 31.2L, Red Cell Distribution Width 16.3H, Platelet Count 259, Neutrophils (%) (Auto) 71.5H, Lymphocytes (%) (Auto) 11.9L, Monocytes (%) (Auto) 9.0H, Eosinophils (%) (Auto) 5.0H, Basophils (%) (Auto) 1.2H, Neutrophils # (Auto) 6.2, Lymphocytes # (Auto) 1.0L, Monocytes # (Auto) 0.8, Eosinophils # (Auto) 0.4, Basophils # (Auto) 0.1, Nucleated Red Blood Cells % (auto) 0.0, Anion Gap 8, Glomerular Filtration Rate > 60.0, Blood Urea Nitrogen 22H, Creatinine 0.72, Sodium Level 133L, Potassium Level 4.3, Chloride Level 106, Carbon Dioxide Level 19L, Calcium Level 8.9, Phosphorus Level 3.6, Aspartate Amino Transf (AST/SGOT) 10, Alanine Aminotransferase (ALT/SGPT) 7L, Alkaline Phosphatase 152H, Total Bilirubin 0.4, Total Protein 7.1, Albumin 2.1L, Albumin/Globulin Ratio 0.42L 11/13/18 06:16: Bedside Glucose (Misc Panel) 171H CBC/BMP Laboratory Tests 11/13/18 05:43 Red Blood Count 3.53 L, Mean Corpuscular Volume 85.3, Mean Corpuscular Hemoglobin 26.6 L, Mean Corpuscular Hemoglobin Concent 31.2 L, Red Cell Distribution Width 16.3 H, Neutrophils (%) (Auto) 71.5 H, Lymphocytes (%) (Auto) 11.9 L, Monocytes (%) (Auto) 9.0 H, Eosinophils (%) (Auto) 5.0 H, Basophils (%) (Auto) 1.2 H, Neutrophils # (Auto) 6.2, Lymphocytes # (Auto) 1.0 L, Monocytes # (Auto) 0.8, Eosinophils # (Auto) 0.4, Basophils # (Auto) 0.1, Calcium Level 8.9, Phosphorus Level 3.6, Aspartate Amino Transf (AST/SGOT) 10, Alanine Aminotransferase (ALT/SGPT) 7 L, Alkaline Phosphatase 152 H, Total Bilirubin 0.4, Total Protein 7.1, Albumin 2.1 L DESEAN LUQUE PA-C Nov 13, 2018 12:05
[2018-11-13 14:00] VITALS: BP 128/89
--- NOTE | 2018-11-13 14:50 | IPN ---
DATE: 11/13/2018 ADDENDUM: Addendum to note from Maricruz Lemus. I spoke with Dr. Bedoya today. Patient has right lower abdominal pain. Dr. Hoang and I discussed the case yesterday, wonders whether the patient would benefit transfer to tertiary care center such as [facility] for endoscopic ultrasound and possible celiac plexus block for the abdominal pain which seems to be pancreatic in origin. However, it seems prudent to pursue a colonoscopy to make sure the right colon is not the cause of the discomfort. He had attempted a colonoscopy earlier but he did not take all the prep and it was not a full procedure so that was on 11/09/2018. Discussed with the patient today and he consents to another colonoscopy. Consents to taking the prep and is willing to proceed with the proposed workup. Will let Dr. Bedoya know this. He has been discussing with Dr. Burkett and they will decide who is going to proceed with the procedure.
[2018-11-13 18:00] VITALS: BP 127/86
[2018-11-13] MEDS ORDERED: AMINO AC/ELECTROLYTE/DEX/CALC 2,000 ML IV SCH (18:00)
[2018-11-13] MEDS ORDERED: FAT EMULSION IV 20% 500 ML IV SCH (18:00)
[2018-11-13 22:00] VITALS: BP 117/86
[2018-11-14] MEDS: HumaLOG INSULIN (NovoLOG) PER UNIT SC SCH ×4 (00:53→17:25)
[2018-11-14 02:00] VITALS: BP 118/77
[2018-11-14] MEDS: HYDROmorphone 2 MG TAB PO SCH ×5 (02:00→19:20)
[2018-11-14] MEDS: ONDANSETRON 4MG/2ML VIAL (J2405) IV SCH ×4 (02:22→21:23)
[2018-11-14 06:00] VITALS: BP 121/84
[2018-11-14] MEDS: SODIUM CHLORIDE 0.9% INJ 10 ML SYR IV SCH ×2 (06:00→17:26)
[2018-11-14 06:17] LABS: BASO # 0.1 10^3/uL (0.0-0.2); BASO % 1.3 % (0.0-1.0); EOS # 0.5 10^3/uL (0.0-0.50); EOS % 5.2 % (0.0-3.0); HEMATOCRIT 31.2 % (42.0-52.0); HEMOGLOBIN 9.7 g/dl (13.5-17.5); LYMPH % 11.9 % (24.0-44.0); MEAN CORPUSCULAR HEMOGLOBIN 26.1 pg (27.0-33.0); MEAN CORPUSCULAR HGB CONC 31.1 g/dl (32.0-36.5); MEAN CORPUSCULAR VOLUME 84.1 fl (80.0-96.0); MONO # 0.9 10^3/uL (0.0-0.8); NEUTROPHILS # 6.1 10^3/uL (1.8-7.7); NEUTROPHILS % 70.7 % (36.0-66.0); PLATELET COUNT, AUTOMATED 268 10^3/uL (150-450); RED BLOOD COUNT 3.71 10^6/uL (4.30-6.10); WHITE BLOOD COUNT 8.6 10^3/uL (4.0-10.0)
[2018-11-14 06:40] LABS: ALBUMIN 2.2 GM/DL (3.2-5.2); BLOOD UREA NITROGEN 20 MG/DL (7-18); CARBON DIOXIDE LEVEL 19 MEQ/L (21-32); CHLORIDE LEVEL 106 MEQ/L (98-107); CREATININE FOR GFR 0.62 MG/DL (0.70-1.30); GLOMERULAR FILTRATION RATE > 60.0 (>56); GLUCOSE, FASTING 123 MG/DL (70-100); PHOSPHORUS LEVEL 3.6 MG/DL (2.5-4.9); POTASSIUM SERUM 4.5 MEQ/L (3.5-5.1); SODIUM LEVEL 134 MEQ/L (136-145)
[2018-11-14] MEDS: SUCRALFATE 1 GM TAB PO SCH ×4 (07:30→21:00)
[2018-11-14] MEDS: AMIODARONE 200 MG TAB (PACERONE) PO SCH (07:33)
[2018-11-14] MEDS: PANTOPRAZOLE 40MG INJ (PROTONIX) (C9113) IV SCH ×2 (07:33→21:00)
[2018-11-14] MEDS: ROSUVASTATIN 10 MG TAB (CRESTOR) PO SCH (07:33)
[2018-11-14] MEDS: CARVedilol 6.25 MG TAB PO SCH ×2 (07:33→21:00)
--- NOTE | 2018-11-14 07:52 | IPNPDOC ---
Subjective Date Seen The patient was seen on 11/14/18. Subjective Chief Complaint/HPI abdominal pain Events since last encounter Nursing staff reports, minimal interaction, vocalization response. Nursing not given pain medications julissa to mental status. Patient unable to wake enough to report c/o. Constitutional: Denies: Fever Objective Physical Examination General Exam: Positive: Alert, No Acute Distress, Other (sleeping soundly when I entered the room, awakens to voice) ENT Exam: Positive: Mucous membr. moist/pink Chest Exam: Positive: Normal air movement; Negative: Rhonchi, Wheezing Heart Exam: Positive: Rate Normal, Regular Rhythm, Normal S1, Normal S2 Abdomen Exam: Positive: Normal bowel sounds, Soft, Tenderness, Other (Ostomy with liquid brown stool) Extremity Exam: Positive: Edema (trace ) Psych Exam: Positive: Mental status NL Assessment /Plan Problems (1) Chronic abdominal pain Status: Acute Problem Text: 11/14/18: pending for colonoscopy. Continue to work with GI/general surgery. poor mentation and nutrition. continue with TPN. 11/13 D/w attending, plans to reach out to [facility] for consideration for colonoscopy to further assess R sided abd pain favor 2 chronic pancreatitis +/- diabetic/narcotic gastroparesis +/- functional no real subjective improvement c pancreatic rest nor colostomy for sigmoid stricture Contingency: colonoscopy to evaluate R colon, ? ERCP to decompress possible dilated pancreatic duct vs celiac axis block; obviously poor surgical candidate 11/12/18 case d/w Dr. Burkett who favored CTA AP to evaluate for possible GA as source of pain and then colon (by himself or Aureliano) to evaluate R colon (pain has always seemed to emanate from RLQ); then tc tx for EUS for possible diagnostic/therapeutic celiac axis block 11/09 HM 6 q6H to 5 q6H, + Marinol 2.5 BID (off IV HM since 11/07/18 530)-without improvement of N/abdominal pain, but actually oversedated c urinary incontinence; therefore, 11/10 decreased HM to 2 q6H prn refusing all po meds x HM Continue ondan 4 IV q6H, prometh 25 q prn, panto 40 IV BID 11/09/18 H pylori P 11/09/18 EGD mild gastritis Aureliano remains on TPN via PICC for pancreatic rest/nutrition since 10/23/18 11/12/18 pancreatic US s obvious ductal dilatation 11/12/18 CTA AP celiac and SMA widely patent; JEFFREY not visualized; no pancreatic abscess/fluid collection 10/21/18: CT AP: 1. A catheter is present in the gallbladder. 2. There is increased density in the pancreatic region likely representing edema and residual fluid collections. There is no definite new fluid collection. 3. There is thickening of a wall of a small segment of sigmoid colon with surrounding edema that may represent inflammatory bowel disease. 4. There is a small amount of free fluid in the abdomen. (2) CAD (coronary artery disease) Status: Chronic Problem Text: no active angina c ischemic CMP (3) Pancreatitis Permanent Comment: ? etiology-favor hyperTG (08/09/18 TG 506), +/- gliptin use (was on stevo) 10/23/18 CA-19-9 24 10/23/18 24 08/10/18 lipase 820 Last Edited By: Hari Hoang MD on Oct 23, 2018 17:54 Status: Acute Problem Text: as per abdominal pain unable to do MRCP 2 AICD ? etiology-favor hyperTG (08/09/18 TG 506), +/- gliptin use (was on stevo) 10/23/18 CA-19-9 24 10/23/18 24 08/10/18 lipase 820 (4) Systolic and diastolic CHF, acute on chronic Status: Chronic Problem Text: Remains euvolemic on current regimen Echo 09/03/18: EF 30% Normal sinus rhythm with dual-chamber pacemaker. Appropriate atrial sensing and tracking with consistent ventricular paced. Paced QRS complexes with left bundle branch block QRS configuration. M-mode and two-dimensional echocardiography was performed with pulsed, continuous wave, color flow and tissue Doppler studies. Moderately dilated left ventricle with borderline hypertrophy. Paradoxical septal wall motion and apical akinesis related to right ventricular paced rhythm. Moderate to moderately severe impairment of global resting systolic function. Mildly dilated left atrium with impairment of LV diastolic function and elevated mean left atrial pressure. Right heart chamber sizes upper limits of normal with right ventricular hypokinesis and Doppler evidence of moderate pulmonary hypertension. Mildly dilated IVC with slightly reduced respiratory collapse suggestive of central venous pressure of approximately 10 - 15 mmHg. Slight aortic valvular sclerosis with adequate cusp separation but premature cusp closure in keeping with reduced forward stroke volume. (5) DM2 (diabetes mellitus, type 2) Status: Chronic Problem Text: BG mid 100s s hypos on solely SSLI QID (6) Malnutrition Status: Chronic Problem Text: TPN as per chronic abdominal pain favor change to enteral feeding given no real improvement of abdominal pain on TPN 11/10 alb stable at 1.9 (7) Acalculous cholecystitis Status: Chronic Problem Text: sp percutaneous drainage plan lap key in future (8) Physical deconditioning Status: Chronic Problem Text: 11/08 safe for dc per PT (9) GI bleeding Status: Acute Problem Text: no further obvious ostomy bleeding 11/11 hgb 9.3-stable since 11/06 2u tx 11/09 EGD/sigmoidoscopy mild gastritis, superficial colostomy ischemia-Aureliano (10) Stricture of sigmoid colon Status: Acute Response to Treatment: Stable Problem Text: 10/31: robotic assisted sigmoid colectomy and diverting colostomy pathology: segment of sigmoid colon with a segment of marked mucosal ulceration, transmural inflammation and marked stenosis, no malignancy is identified. Plan/VTE VTE Prophylaxis Ordered?: Yes (SCD/TEDS) VTE Exclusion Pharmacological: Active Bleeding Plan Therapy: PT VS, I&O, 24H, Fishbone Vital Signs/I&O Vital Signs Date Time Temp Pulse Resp B/P (MAP) Pulse Ox O2 Delivery O2 Flow Rate FiO2 11/14/18 07:32 16 11/14/18 06:00 96.8 108 121/84 (96) 94 11/09/18 12:28 1.0 I&O- Last 24 Hours up to 6 AM 11/14/18 06:00 Intake Total 2260 ml Output Total 1225 ml Balance 1035 ml Laboratory Data 24H LABS Laboratory Tests 2 11/13/18 12:08: Bedside Glucose (Misc Panel) 192H 11/13/18 17:01: Bedside Glucose (Misc Panel) 174H 11/13/18 23:53: Bedside Glucose (Misc Panel) 130H 11/14/18 05:51: Immature Granulocyte % (Auto) 0.9, White Blood Count 8.6, Red Blood Count 3.71L, Hemoglobin 9.7L, Hematocrit 31.2L, Mean Corpuscular Volume 84.1, Mean Corpuscular Hemoglobin 26.1L, Mean Corpuscular Hemoglobin Concent 31.1L, Red Cell Distribution Width 16.1H, Platelet Count 268, Neutrophils (%) (Auto) 70.7H, Lymphocytes (%) (Auto) 11.9L, Monocytes (%) (Auto) 10.0H, Eosinophils (%) (Auto) 5.2H, Basophils (%) (Auto) 1.3H, Neutrophils # (Auto) 6.1, Lymphocytes # (Auto) 1.0L, Monocytes # (Auto) 0.9H, Eosinophils # (Auto) 0.5, Basophils # (Auto) 0.1, Nucleated Red Blood Cells % (auto) 0.0, Blood Urea Nitrogen 20H, Creatinine 0.62L, Sodium Level 134L, Potassium Level 4.5, Chloride Level 106, Carbon Dioxide Level 19L, Anion Gap 9, Glomerular Filtration Rate > 60.0, Calcium Level 9.0, Phosphorus Level 3.6, Albumin 2.2L 11/14/18 05:52: Bedside Glucose (Misc Panel) 119H CBC/BMP Laboratory Tests 11/14/18 05:51 Red Blood Count 3.71 L, Mean Corpuscular Volume 84.1, Mean Corpuscular Hemoglobin 26.1 L, Mean Corpuscular Hemoglobin Concent 31.1 L, Red Cell Distribution Width 16.1 H, Neutrophils (%) (Auto) 70.7 H, Lymphocytes (%) (Auto) 11.9 L, Monocytes (%) (Auto) 10.0 H, Eosinophils (%) (Auto) 5.2 H, Basophils (%) (Auto) 1.3 H, Neutrophils # (Auto) 6.1, Lymphocytes # (Auto) 1.0 L, Monocytes # (Auto) 0.9 H, Eosinophils # (Auto) 0.5, Basophils # (Auto) 0.1, Anion Gap 9 Cynthia Singer [facility] Nov 14, 2018 07:52
[2018-11-14] MEDS ORDERED: GOLYTELY SOLN 4000 ML BTL PO ONE (09:00)
[2018-11-14 10:00] VITALS: BP 112/76
[2018-11-14] MEDS: FLEET ENEMA PR SCH ×2 (10:09→21:00)
[2018-11-14] MEDS: DRONABINOL 2.5 MG CAP (MARINOL) PO SCH ×2 (12:00→17:16)
[2018-11-14 14:00] VITALS: BP 125/85
[2018-11-14 18:00] VITALS: BP 110/79
[2018-11-14] MEDS ORDERED: FAT EMULSION IV 20% 500 ML IV SCH (18:00)
[2018-11-14] MEDS ORDERED: MULTIVITAMIN -ADULT INJECTION 10 ML, CR/CU/SE/MN/ZN INJ 1 ML in AMINO AC/ELECTROLYTE/DE... IV SCH (18:00)
[2018-11-14] MEDS ORDERED: HumaLOG INSULIN (NovoLOG) PER UNIT SC SCH (18:00)
[2018-11-14 22:00] VITALS: BP 112/76
[2018-11-15] MEDS: HumaLOG INSULIN (NovoLOG) PER UNIT SC SCH ×4 (00:41→17:57)
[2018-11-15 02:00] VITALS: BP 118/80
[2018-11-15] MEDS: ONDANSETRON 4MG/2ML VIAL (J2405) IV SCH ×4 (02:04→20:06)
[2018-11-15] MEDS: HYDROmorphone 2 MG TAB PO SCH ×4 (02:05→20:07)
[2018-11-15 06:00] VITALS: BP 132/89
[2018-11-15] MEDS: SODIUM CHLORIDE 0.9% INJ 10 ML SYR IV SCH ×2 (06:06→17:58)
[2018-11-15 06:12] LABS: BASO # 0.1 10^3/uL (0.0-0.2); BASO % 1.5 % (0.0-1.0); EOS # 0.6 10^3/uL (0.0-0.50); EOS % 6.9 % (0.0-3.0); HEMATOCRIT 31.3 % (42.0-52.0); HEMOGLOBIN 9.7 g/dl (13.5-17.5); LYMPH # 0.9 10^3/uL (1.5-4.5); LYMPH % 10.7 % (24.0-44.0); MEAN CORPUSCULAR HEMOGLOBIN 26.4 pg (27.0-33.0); MEAN CORPUSCULAR VOLUME 85.1 fl (80.0-96.0); MONO # 0.7 10^3/uL (0.0-0.8); MONO % 8.4 % (0.0-5.0); NEUTROPHILS # 6.3 10^3/uL (1.8-7.7); NEUTROPHILS % 71.7 % (36.0-66.0); PLATELET COUNT, AUTOMATED 282 10^3/uL (150-450); RED BLOOD COUNT 3.68 10^6/uL (4.30-6.10); WHITE BLOOD COUNT 8.7 10^3/uL (4.0-10.0)
[2018-11-15 06:31] LABS: BLOOD UREA NITROGEN 20 MG/DL (7-18); CARBON DIOXIDE LEVEL 21 MEQ/L (21-32); CHLORIDE LEVEL 106 MEQ/L (98-107); CREATININE FOR GFR 0.69 MG/DL (0.70-1.30); GLOMERULAR FILTRATION RATE > 60.0 (>56); GLUCOSE, FASTING 183 MG/DL (70-100); PHOSPHORUS LEVEL 3.4 MG/DL (2.5-4.9); POTASSIUM SERUM 4.2 MEQ/L (3.5-5.1); SODIUM LEVEL 134 MEQ/L (136-145)
[2018-11-15] MEDS: SUCRALFATE 1 GM TAB PO SCH ×4 (07:30→20:09)
[2018-11-15] MEDS: CARVedilol 6.25 MG TAB PO SCH ×2 (09:00→20:09)
[2018-11-15] MEDS: ROSUVASTATIN 10 MG TAB (CRESTOR) PO SCH (09:00)
[2018-11-15] MEDS: FLEET ENEMA PR SCH ×2 (09:00→20:09)
[2018-11-15] MEDS: AMIODARONE 200 MG TAB (PACERONE) PO SCH (09:00)
[2018-11-15] MEDS: PANTOPRAZOLE 40MG INJ (PROTONIX) (C9113) IV SCH ×2 (09:00→20:09)
--- NOTE | 2018-11-15 09:59 | IPNPDOC ---
Subjective Date Seen The patient was seen on 11/15/18. Subjective Chief Complaint/HPI Pt this morning without new concerns. He hasn't tolerated PO Prep for colo, therefor NG has been placed this morning. General: Reports: Fatigue Constitutional: Denies: Chills, Fever ENT: Denies: Head Aches Pulmonary: Denies: Dyspnea, Cough Cardiovascular: Denies: Chest Pain, Palpitations Gastrointestinal: Reports: Nausea, Abdominal Pain; Denies: Vomiting Neurological: Reports: Weakness Psych: Reports: Depression Objective Physical Examination General Exam: Positive: Alert, No Acute Distress, Other (sleeping soundly when I entered the room, awakens to voice) ENT Exam: Positive: Mucous membr. moist/pink Chest Exam: Positive: Normal air movement; Negative: Rhonchi, Wheezing Heart Exam: Positive: Rate Normal, Regular Rhythm, Normal S1, Normal S2 Abdomen Exam: Positive: Normal bowel sounds, Soft, Tenderness, Other (Ostomy w ith liquid brown stool) Extremity Exam: Negative: Edema Psych Exam: Positive: Mental status NL Assessment /Plan Problems (1) Chronic abdominal pain Status: Acute Problem Text: 11/15 Prep initiated for colonoscopy with Madelaine 11/14/18: pending for colonoscopy. Continue to work with GI/general surgery. poor mentation and nutrition. continue with TPN. 11/13 D/w attending, plans to reach out to [facility] for consideration for colonoscopy to further assess R sided abd pain favor 2 chronic pancreatitis +/- diabetic/narcotic gastroparesis +/- functional no real subjective improvement c pancreatic rest nor colostomy for sigmoid stricture Contingency: colonoscopy to evaluate R colon, ? ERCP to decompress possible dilated pancreatic duct vs celiac axis block; obviously poor surgical candidate 11/12/18 case d/w Dr. Burkett who favored CTA AP to evaluate for possible DC as source of pain and then colon (by himself or Bryangela) to evaluate R colon (pain has always seemed to emanate from RLQ); then tc tx for EUS for possible diagnostic/therapeutic celiac axis block 11/09 HM 6 q6H to 5 q6H, + Marinol 2.5 BID (off IV HM since 11/07/18 530)-without improvement of N/abdominal pain, but actually oversedated c urinary incontinence; therefore, 11/10 decreased HM to 2 q6H prn refusing all po meds x HM Continue ondan 4 IV q6H, prometh 25 q prn, panto 40 IV BID 11/09/18 H pylori P 11/09/18 EGD mild gastritis Aureliano remains on TPN via PICC for pancreatic rest/nutrition since 10/23/18 11/12/18 pancreatic US s obvious ductal dilatation 11/12/18 CTA AP celiac and SMA widely patent; JEFFREY not visualized; no pancreatic abscess/fluid collection 10/21/18: CT AP: 1. A catheter is present in the gallbladder. 2. There is increased density in the pancreatic region likely representing edema and residual fluid collections. There is no definite new fluid collection. 3. There is thickening of a wall of a small segment of sigmoid colon with surrounding edema that may represent inflammatory bowel disease. 4. There is a small amount of free fluid in the abdomen. (2) CAD (coronary artery disease) Status: Chronic Problem Text: no active angina c ischemic CMP (3) Pancreatitis Permanent Comment: ? etiology-favor hyperTG (08/09/18 TG 506), +/- gliptin use (was on stevo) 10/23/18 CA-19-9 24 10/23/18 24 08/10/18 lipase 820 Last Edited By: Hari Hoang MD on Oct 23, 2018 17:54 Status: Chronic Response to Treatment: Uncontrolled Problem Text: as per abdominal pain unable to do MRCP 2 AICD ? etiology-favor hyperTG (08/09/18 TG 506), +/- gliptin use (was on stevo) 10/23/18 CA-19-9 24 10/23/18 24 08/10/18 lipase 820 (4) Systolic and diastolic CHF, acute on chronic Status: Chronic Problem Text: Remains euvolemic on current regimen Echo 09/03/18: EF 30% Normal sinus rhythm with dual-chamber pacemaker. Appropriate atrial sensing and tracking with consistent ventricular paced. Paced QRS complexes with left bundle branch block QRS configuration. M-mode and two-dimensional echocardiography was performed with pulsed, continuous wave, color flow and tissue Doppler studies. Moderately dilated left ventricle with borderline hypertrophy. Paradoxical septal wall motion and apical akinesis related to right ventricular paced rhythm. Moderate to moderately severe impairment of global resting systolic function. Mildly dilated left atrium with impairment of LV diastolic function and elevated mean left atrial pressure. Right heart chamber sizes upper limits of normal with right ventricular hypokinesis and Doppler evidence of moderate pulmonary hypertension. Mildly dilated IVC with slightly reduced respiratory collapse suggestive of central venous pressure of approximately 10 - 15 mmHg. Slight aortic valvular sclerosis with adequate cusp separation but premature cusp closure in keeping with reduced forward stroke volume. (5) DM2 (diabetes mellitus, type 2) Status: Chronic Problem Text: BG mid 100s s hypos on solely SSLI QID (6) Malnutrition Status: Chronic Problem Text: TPN as per chronic abdominal pain favor change to enteral feeding given no real improvement of abdominal pain on TPN 11/10 alb stable at 1.9 (7) Acalculous cholecystitis Status: Chronic Problem Text: sp percutaneous drainage plan lap key in future (8) Physical deconditioning Status: Chronic Problem Text: 11/08 safe for dc per PT (9) GI bleeding Status: Resolved Problem Text: no further obvious ostomy bleeding 11/11 hgb 9.3-stable since 11/06 2u tx 11/09 EGD/sigmoidoscopy mild gastritis, superficial colostomy ischemia-Aureliano (10) Stricture of sigmoid colon Status: Resolved Response to Treatment: Stable Problem Text: 10/31: robotic assisted sigmoid colectomy and diverting colostomy pathology: segment of sigmoid colon with a segment of marked mucosal ulceration, transmural inflammation and marked stenosis, no malignancy is identified. Plan/VTE VTE Prophylaxis Ordered?: Yes (SCD/TEDS) VTE Exclusion Pharmacological: Active Bleeding Plan Therapy: PT VS, I&O, 24H, Fishbone Vital Signs/I&O Vital Signs Date Time Temp Pulse Resp B/P (MAP) Pulse Ox O2 Delivery O2 Flow Rate FiO2 11/15/18 06:00 96.8 99 17 132/89 (103) 94 11/09/18 12:28 1.0 I&O- Last 24 Hours up to 6 AM 11/15/18 05:59 Intake Total 960 ml Output Total 1350 ml Balance -390 ml Laboratory Data 24H LABS Laboratory Tests 2 11/14/18 11:41: Bedside Glucose (Misc Panel) 139H 11/14/18 17:07: Bedside Glucose (Misc Panel) 102 11/15/18 00:23: Bedside Glucose (Misc Panel) 147H 11/15/18 05:47: Immature Granulocyte % (Auto) 0.8, White Blood Count 8.7, Red Blood Count 3.68L, Hemoglobin 9.7L, Hematocrit 31.3L, Mean Corpuscular Volume 85.1, Mean Corpuscular Hemoglobin 26.4L, Mean Corpuscular Hemoglobin Concent 31.0L, Red Cell Distribution Width 16.3H, Platelet Count 282, Neutrophils (%) (Auto) 71.7H, Lymphocytes (%) (Auto) 10.7L, Monocytes (%) (Auto) 8.4H, Eosinophils (%) (Auto) 6.9H, Basophils (%) (Auto) 1.5H, Neutrophils # (Auto) 6.3, Lymphocytes # (Auto) 0.9L, Monocytes # (Auto) 0.7, Eosinophils # (Auto) 0.6H, Basophils # (Auto) 0.1, Nucleated Red Blood Cells % (auto) 0.0 11/15/18 05:48: Blood Urea Nitrogen 20H, Creatinine 0.69L, Sodium Level 134L, Potassium Level 4.2, Chloride Level 106, Carbon Dioxide Level 21, Anion Gap 7L, Glomerular Filtration Rate > 60.0, Calcium Level 9.0, Phosphorus Level 3.4, Albumin 2.0L 11/15/18 06:03: Bedside Glucose (Misc Panel) 183H CBC/BMP Laboratory Tests 11/15/18 05:47 Red Blood Count 3.68 L, Mean Corpuscular Volume 85.1, Mean Corpuscular Hemoglobin 26.4 L, Mean Corpuscular Hemoglobin Concent 31.0 L, Red Cell Distribution Width 16.3 H, Neutrophils (%) (Auto) 71.7 H, Lymphocytes (%) (Auto) 10.7 L, Monocytes (%) (Auto) 8.4 H, Eosinophils (%) (Auto) 6.9 H, Basophils (%) (Auto) 1.5 H, Neutrophils # (Auto) 6.3, Lymphocytes # (Auto) 0.9 L, Monocytes # (Auto) 0.7, Eosinophils # (Auto) 0.6 H, Basophils # (Auto) 0.1 11/15/18 05:48 Anion Gap 7 L DESEAN LUQUE PA-C Nov 15, 2018 09:59
[2018-11-15 10:00] VITALS: BP 120/79
[2018-11-15] MEDS ORDERED: KCL 20MEQ in NS 1000ML 1,000 ML IV SCH (10:00)
[2018-11-15] MEDS: DRONABINOL 2.5 MG CAP (MARINOL) PO SCH ×2 (11:42→17:00)
[2018-11-15 14:00] VITALS: BP 123/78
[2018-11-15 18:00] VITALS: BP 128/78
[2018-11-15] MEDS ORDERED: AMINO AC/ELECTROLYTE/DEX/CALC 2,000 ML IV SCH (18:00)
[2018-11-15] MEDS ORDERED: FAT EMULSION IV 20% 500 ML IV SCH (18:00)
--- NOTE | 2018-11-15 20:51 | IPNPDOC ---
Date Seen The patient was seen on 11/15/18. Progress Note Initial GI consult was done by Dr. Vasquez on 10/22/2018. GI is re-called for evaluation for Colonoscopy though the colostomy site. Interval follow up: Patient is placed on TPN for pancreatic rest for Recovering pancreatitis ( had necrotizing pancreatitis in past), with lack of appetite and persistent abdominal pain. Patient had Cholecystostomy drain placed by IR for acalculous cholecystitis. Patient also noted with Sigmoid stricture in past Colonoscopy ( thought to be benign, post ischemic colitis stricture), and underwent Sigmoidectomy and end colostomy by Dr. Bedoya. Post procedure Colonoscopy was attempted through the Colostomy but was incomplete due to poor prep. Patient has been on different pain medications with TPN ( no separate IV fluids) for ongoing abdominal pain - which reports in right and left lower quadrants ad around the Colostomy site. Patient also reports left upper quadrant pain underneath the ribs as well. GI was recalled to consider Complete colonoscopy to evaluate for colonic/ causes of abdominal pain ( especially in view of prior ischemic colitis). Subjective: Patient is not cooperative and does not give detailed history but appears to cry intermittently while answering questions. Patient reports having abdominal pain as described above. Patient also denies any appetite and not tolerating food due to pain. Patient had few surgical scars in abdomen - which he reports were done in past but does not recall what surgery. Patient denies alcohol use. Objective: Vitals: NO tachycardia, normal BP, tachypnea. General: Appears slightly dehydrated, mild distress from pain. Abdomen: Soft, non-distended, normal bowel sounds, tenderness around the Colosto my site and right and left lower quadrant more than epigastric area. NO rigidity or guarding. Extremities: no Pedal edema. No skin rash. Labs: reviewed. Impression: -- Persistent abdominal pain - more in lower abdomen than epigastric area and also reports pain in left upper quadrant under the ribs. Needs Further evaluation. DDx-- pain from chronic pancreatitis vs rule out ischemic colitis vs Colostomy related. -- Prior h/o of severe pancreatitis now in recovering phase ( thought to be secondary to Hypertriglyceridemia - as per primary team) without identifiable pseudocyst in last abdominal imaging. -- H/o Ischemic colitis with stricture s/p sigmoid resection with end Colostomy in left side of abdomen. -- Acalculous cholecystitis - s/p Cholecystostomy drain Recommendations: -- NG tube with clear liquid diet and advance as tolerated. -- IV hydration - preferably Ringers lactate ( adjust rate depending on urine output and fluid status). -- TPN, Cholecystostomy and Colostomy management as per Surgery team. -- Will schedule for diagnostic Colonoscopy. Patient is educated about the p rocedure, its indications, risks, benefits and alternatives ( including no procedure) and patient verbalized understanding and agreed for the procedure. Informed consent obtained from patient. -- Bowel prep instructions provided to RN team. Plan of care discussed with patient and primary team. All questions by patient were answered. Addendum: 11/16/2018: ( post Colonoscopy). -- Patient tolerated procedure well and no immediate post procedure complications. Detailed procedure finding in separate operative note. Noted with normal Colonic mucosa, noted few tiny hyperplastic appearing descendi ng/ sigmoid polyps. ( not removed). Colostomy is intact with normal mucosa near the Colostomy but visible sutures. Impression: Abdominal pain unlikely from Colonic causes. Mostly likely from pancreatitis and intra- abdominal collections. Recommendations: -- As above, advance diet as tolerated. -- IV hydration. -- Further evaluation for pleural effusions. -- Serial abdominal exams and if no improvement consider transferring to tertiary center for EUS with celiac ganglion block for pain relief. -- PT and OT as tolerated. -- Recall GI if any change in status. Plan of care discussed with patient and primary team. Patient verbalized understanding and agreed with the plan. VS, I&O, 24H, Fishbone Laboratory Data 24H LABS Laboratory Tests 2 11/15/18 00:23: Bedside Glucose (Misc Panel) 147H 11/15/18 05:47: Immature Granulocyte % (Auto) 0.8, White Blood Count 8.7, Red Blood Count 3.68L, Hemoglobin 9.7L, Hematocrit 31.3L, Mean Corpuscular Volume 85.1, Mean Corpuscular Hemoglobin 26.4L, Mean Corpuscular Hemoglobin Concent 31.0L, Red Cell Distribution Width 16.3H, Platelet Count 282, Neutrophils (%) (Auto) 71.7H, Lymphocytes (%) (Auto) 10.7L, Monocytes (%) (Auto) 8.4H, Eosinophils (%) (Auto) 6.9H, Basophils (%) (Auto) 1.5H, Neutrophils # (Auto) 6.3, Lymphocytes # (Auto) 0.9L, Monocytes # (Auto) 0.7, Eosinophils # (Auto) 0.6H, Basophils # (Auto) 0.1, Nucleated Red Blood Cells % (auto) 0.0 11/15/18 05:48: Blood Urea Nitrogen 20H, Creatinine 0.69L, Sodium Level 134L, Potassium Level 4.2, Chloride Level 106, Carbon Dioxide Level 21, Anion Gap 7L, Glomerular Filtration Rate > 60.0, Calcium Level 9.0, Phosphorus Level 3.4, Albumin 2.0L 11/15/18 06:03: Bedside Glucose (Misc Panel) 183H 11/15/18 11:38: Bedside Glucose (Misc Panel) 193H 11/15/18 16:49: Bedside Glucose (Misc Panel) 155H CBC/BMP Laboratory Tests 11/15/18 05:47 Red Blood Count 3.68 L, Mean Corpuscular Volume 85.1, Mean Corpuscular Hemoglobin 26.4 L, Mean Corpuscular Hemoglobin Concent 31.0 L, Red Cell Distribution Width 16.3 H, Neutrophils (%) (Auto) 71.7 H, Lymphocytes (%) (Auto) 10.7 L, Monocytes (%) (Auto) 8.4 H, Eosinophils (%) (Auto) 6.9 H, Basophils (%) (Auto) 1.5 H, Neutrophils # (Auto) 6.3, Lymphocytes # (Auto) 0.9 L, Monocytes # (Auto) 0.7, Eosinophils # (Auto) 0.6 H, Basophils # (Auto) 0.1 11/15/18 05:48 Anion Gap 7 L ANDREINA OCHOA MD Nov 15, 2018 20:51
[2018-11-15 22:00] VITALS: BP 123/83
[2018-11-16] VITALS (9 sets, daily range): BP systolic 111–128; BP diastolic 76–86
[2018-11-16] MEDS: HumaLOG INSULIN (NovoLOG) PER UNIT SC SCH ×4 (00:59→17:39)
[2018-11-16] MEDS: ONDANSETRON 4MG/2ML VIAL (J2405) IV SCH ×4 (02:00→20:00)
[2018-11-16] MEDS: HYDROmorphone 2 MG TAB PO SCH ×4 (02:22→20:00)
[2018-11-16] MEDS ORDERED: GOLYTELY SOLN 4000 ML BTL NG ONE (06:00)
[2018-11-16] MEDS: SODIUM CHLORIDE 0.9% INJ 10 ML SYR IV SCH ×2 (06:18→17:38)
[2018-11-16 06:25] LABS: BASO # 0.1 10^3/uL (0.0-0.2); BASO % 1.5 % (0.0-1.0); EOS # 0.4 10^3/uL (0.0-0.50); EOS % 5.7 % (0.0-3.0); HEMOGLOBIN 9.4 g/dl (13.5-17.5); LYMPH # 1.1 10^3/uL (1.5-4.5); MEAN CORPUSCULAR HEMOGLOBIN 26.8 pg (27.0-33.0); MEAN CORPUSCULAR HGB CONC 31.3 g/dl (32.0-36.5); MEAN CORPUSCULAR VOLUME 85.5 fl (80.0-96.0); MONO # 0.8 10^3/uL (0.0-0.8); MONO % 10.3 % (0.0-5.0); NEUTROPHILS # 4.9 10^3/uL (1.8-7.7); NEUTROPHILS % 66.8 % (36.0-66.0); PLATELET COUNT, AUTOMATED 288 10^3/uL (150-450); RED BLOOD COUNT 3.51 10^6/uL (4.30-6.10); WHITE BLOOD COUNT 7.3 10^3/uL (4.0-10.0)
[2018-11-16 06:48] LABS: BLOOD UREA NITROGEN 17 MG/DL (7-18); CALCIUM LEVEL 8.9 MG/DL (8.5-10.1); CARBON DIOXIDE LEVEL 22 MEQ/L (21-32); CHLORIDE LEVEL 109 MEQ/L (98-107); CREATININE FOR GFR 0.64 MG/DL (0.70-1.30); GLOMERULAR FILTRATION RATE > 60.0 (>56); GLUCOSE, FASTING 133 MG/DL (70-100); PHOSPHORUS LEVEL 3.2 MG/DL (2.5-4.9); POTASSIUM SERUM 4.2 MEQ/L (3.5-5.1); SODIUM LEVEL 137 MEQ/L (136-145)
[2018-11-16] MEDS: ROSUVASTATIN 10 MG TAB (CRESTOR) PO SCH (08:12)
[2018-11-16] MEDS: AMIODARONE 200 MG TAB (PACERONE) PO SCH (08:12)
[2018-11-16] MEDS: PANTOPRAZOLE 40MG INJ (PROTONIX) (C9113) IV SCH ×2 (08:13→19:58)
[2018-11-16] MEDS: CARVedilol 6.25 MG TAB PO SCH ×2 (08:13→19:57)
[2018-11-16] MEDS: SUCRALFATE 1 GM TAB PO SCH ×4 (08:13→19:57)
--- NOTE | 2018-11-16 09:04 | IPNPDOC ---
Subjective Date Seen The patient was seen on 11/16/18. Subjective Chief Complaint/HPI Pt this morning without new concerns. COnts to have nausea and R sided abd pain. General: Reports: Fatigue Constitutional: Denies: Chills, Fever ENT: Denies: Head Aches Pulmonary: Denies: Dyspnea, Cough Cardiovascular: Denies: Chest Pain, Palpitations Gastrointestinal: Reports: Nausea, Abdominal Pain, Diarrhea (watery stool, post bowel prep); Denies: Vomiting Neurological: Reports: Weakness Psych: Reports: Mood Normal Objective Physical Examination General Exam: Positive: Alert, Cooperative, No Acute Distress ENT Exam: Positive: Mucous membr. moist/pink Chest Exam: Positive: Normal air movement; Negative: Rhonchi, Wheezing Heart Exam: Positive: Rate Normal, Regular Rhythm, Normal S1, Normal S2 Abdomen Exam: Positive: Normal bowel sounds, Soft, Tenderness (diffuse, mostly R sided), Other (Ostomy with liquid pale yellow, very watery stool) Extremity Exam: Negative: Edema Neuro Exam: Positive: Normal Speech Psych Exam: Positive: Mental status NL, Mood NL Assessment /Plan Problems (1) Chronic abdominal pain Status: Acute Problem Text: 11/16 Colonoscopy planned for this afternoon. Cont with TPN. 11/15 Prep initiated for colonoscopy with Madelaine 11/14/18: pending for colonoscopy. Continue to work with GI/general surgery. poor mentation and nutrition. continue with TPN. 11/13 D/w attending, plans to reach out to [facility] for consideration for colonoscopy to further assess R sided abd pain favor 2 chronic pancreatitis +/- diabetic/narcotic gastroparesis +/- functional no real subjective improvement c pancreatic rest nor colostomy for sigmoid stric ture Contingency: colonoscopy to evaluate R colon, ? ERCP to decompress possible dilated pancreatic duct vs celiac axis block; obviously poor surgical candidate 11/12/18 case d/w Dr. Burkett who favored CTA AP to evaluate for possible ME as source of pain and then colon (by himself or Bryangela) to evaluate R colon (pain has always seemed to emanate from RLQ); then tc tx for EUS for possible diagno stic/therapeutic celiac axis block / HM 6 q6H to 5 q6H, + Marinol 2.5 BID (off IV HM since 11/07/18 530)-without improvement of N/abdominal pain, but actually oversedated c urinary incontinence; therefore, 11/10 decreased HM to 2 q6H prn refusing all po meds x HM Continue ondan 4 IV q6H, prometh 25 q prn, panto 40 IV BID 11/09/18 H pylori P 11/09/18 EGD mild gastritis Aureliano remains on TPN via PICC for pancreatic rest/nutrition since 10/23/18 11/12/18 pancreatic US s obvious ductal dilatation 11/12/18 CTA AP celiac and SMA widely patent; JEFFREY not visualized; no pancreatic abscess/fluid collection 10/21/18: CT AP: 1. A catheter is present in the gallbladder. 2. There is increased density in the pancreatic region likely representing edema and residual fluid collections. There is no definite new fluid collection. 3. There is thickening of a wall of a small segment of sigmoid colon with surrounding edema that may represent inflammatory bowel disease. 4. There is a small amount of free fluid in the abdomen. (2) CAD (coronary artery disease) Status: Chronic Problem Text: no active angina c ischemic CMP (3) Pancreatitis Permanent Comment: ? etiology-favor hyperTG (08/09/18 TG 506), +/- gliptin use (was on stevo) 10/23/18 CA-19-9 24 10/23/18 24 08/10/18 lipase 820 Last Edited By: Hari Hoang MD on Oct 23, 2018 17:54 Status: Chronic Response to Treatment: Uncontrolled Problem Text: as per abdominal pain unable to do MRCP 2 AICD ? etiology-favor hyperTG (08/09/18 TG 506), +/- gliptin use (was on stevo) 10/23/18 CA-19-9 24 10/23/18 24 08/10/18 lipase 820 (4) Systolic and diastolic CHF, acute on chronic Status: Chronic Problem Text: Remains euvolemic on current regimen Echo 09/03/18: EF 30% Normal sinus rhythm with dual-chamber pacemaker. Appropriate atrial sensing and tracking with consistent ventricular paced. Paced QRS complexes with left bundle branch block QRS configuration. M-mode and two-dimensional echocardiography was performed with pulsed, continuous wave, color flow and tissue Doppler studies. Moderately dilated left ventricle with borderline hypertrophy. Paradoxical septal wall motion and apical akinesis related to right ventricular paced rhythm. Moderate to moderately severe impairment of global resting systolic function. Mildly dilated left atrium with impairment of LV diastolic function and elevated mean left atrial pressure. Right heart chamber sizes upper limits of normal with right ventricular hypokinesis and Doppler evidence of moderate pulmonary hypertension. Mildly dilated IVC with slightly reduced respiratory collapse suggestive of central venous pressure of approximately 10 - 15 mmHg. Slight aortic valvular sclerosis with adequate cusp separation but premature cusp closure in keeping with reduced forward stroke volume. (5) DM2 (diabetes mellitus, type 2) Status: Chronic Problem Text: BG mid 100s s hypos on solely SSLI QID (6) Malnutrition Status: Chronic Problem Text: TPN as per chronic abdominal pain favor change to enteral feeding given no real improvement of abdominal pain on TPN 11/10 alb stable at 1.9 (7) Acalculous cholecystitis Status: Chronic Problem Text: sp percutaneous drainage plan lap key in future (8) Physical deconditioning Status: Chronic Problem Text: 11/08 safe for dc per PT (9) GI bleeding Status: Resolved Problem Text: no further obvious ostomy bleeding 11/11 hgb 9.3-stable since 11/06 2u tx 11/09 EGD/sigmoidoscopy mild gastritis, superficial colostomy ischemia-Aureliano (10) Stricture of sigmoid colon Status: Resolved Response to Treatment: Stable Problem Text: 10/31: robotic assisted sigmoid colectomy and diverting colostomy pathology: segment of sigmoid colon with a segment of marked mucosal ulceration, transmural inflammation and marked stenosis, no malignancy is identified. Plan/VTE VTE Prophylaxis Ordered?: Yes (SCD/TEDS) VTE Exclusion Pharmacological: Active Bleeding Plan Therapy: PT VS, I&O, 24H, Fishbone Vital Signs/I&O Vital Signs Date Time Temp Pulse Resp B/P (MAP) Pulse Ox O2 Delivery O2 Flow Rate FiO2 11/16/18 08:12 18 11/16/18 08:09 97.6 108 124/81 (95) 95 I&O- Last 24 Hours up to 6 AM 11/16/18 06:00 Intake Total 4820 ml Output Total 4175 ml Balance 645 ml Laboratory Data 24H LABS Laboratory Tests 2 11/15/18 11:38: Bedside Glucose (Misc Panel) 193H 11/15/18 16:49: Bedside Glucose (Misc Panel) 155H 11/16/18 00:02: Bedside Glucose (Misc Panel) 194H 11/16/18 05:58: Bedside Glucose (Misc Panel) 119H 11/16/18 06:05: Immature Granulocyte % (Auto) 0.7, White Blood Count 7.3, Red Blood Count 3.51L, Hemoglobin 9.4L, Hematocrit 30.0L, Mean Corpuscular Volume 85.5, Mean Corpuscular Hemoglobin 26.8L, Mean Corpuscular Hemoglobin Concent 31.3L, Red Cell Distribution Width 16.2H, Platelet Count 288, Neutrophils (%) (Auto) 66.8H, Lymphocytes (%) (Auto) 15.0L, Monocytes (%) (Auto) 10.3H, Eosinophils (%) (Auto) 5.7H, Basophils (%) (Auto) 1.5H, Neutrophils # (Auto) 4.9, Lymphocytes # (Auto) 1.1L, Monocytes # (Auto) 0.8, Eosinophils # (Auto) 0.4, Basophils # (Auto) 0.1, Nucleated Red Blood Cells % (auto) 0.0, Blood Urea Nitrogen 17, Creatinine 0.64L, Sodium Level 137, Potassium Level 4.2, Chloride Level 109H, Carbon Dioxide Level 22, Anion Gap 6L, Glomerular Filtration Rate > 60.0, Calcium Level 8.9, Phosphorus Level 3.2, Albumin 2.0L CBC/BMP Laboratory Tests 11/16/18 06:05 Red Blood Count 3.51 L, Mean Corpuscular Volume 85.5, Mean Corpuscular Hemoglobin 26.8 L, Mean Corpuscular Hemoglobin Concent 31.3 L, Red Cell Distribution Width 16.2 H, Neutrophils (%) (Auto) 66.8 H, Lymphocytes (%) (Auto) 15.0 L, Monocytes (%) (Auto) 10.3 H, Eosinophils (%) (Auto) 5.7 H, Basophils (%) (Auto) 1.5 H, Neutrophils # (Auto) 4.9, Lymphocytes # (Auto) 1.1 L, Monocytes # (Auto) 0.8, Eosinophils # (Auto) 0.4, Basophils # (Auto) 0.1, Anion Gap 6 L DESEAN LUQUE PA-C Nov 16, 2018 09:04
[2018-11-16] MEDS: FLEET ENEMA PR SCH ×2 (10:06→19:58)
[2018-11-16] MEDS: DRONABINOL 2.5 MG CAP (MARINOL) PO SCH ×2 (12:00→17:39)
--- NOTE | 2018-11-16 16:47 | ROOR ---
Patient Name: Dae Shipman Procedure Date: 11/16/2018 4:05 PM Date of : 1970 Age: 48 Room: [facility] Gender: Male Note Status: Finalized Procedure: Colonoscopy Indications: Abdominal pain in the left lower quadrant, Constipation, Weight loss Providers: Duke Burkett MD Referring MD: Dae Tyson MD Requesting Provider: Medicines: Monitored Anesthesia Care Complications: No immediate complications. Procedure: Pre-Anesthesia Assessment: - Prior to the procedure, a History and Physical was performed, and patient medications and allergies were reviewed. The patient is competent. The risks and benefits of the procedure and the sedation options and risks were discussed with the patient. All questions were answered and informed consent was obtained. Patient identification and proposed procedure were verified by the physician, the nurse and the anesthesiologist in the procedure room. Mental Status Examination: alert and oriented. Airway Examination: normal oropharyngeal airway and neck mobility. Respiratory Examination: clear to auscultation. CV Examination: normal. Prophylactic Antibiotics: The patient does not require prophylactic antibiotics. Prior Anticoagulants: The patient has taken no previous anticoagulant or antiplatelet agents. ASA Grade Assessment: III - A patient with severe systemic disease. After reviewing the risks and benefits, the patient was deemed in satisfactory condition to undergo the procedure. The anesthesia plan was to use monitored anesthesia care (MAC). Immediately prior to administration of medications, the patient was re-assessed for adequacy to receive sedatives. The heart rate, respiratory rate, oxygen saturations, blood pressure, adequacy of pulmonary ventilation, and response to care were monitored throughout the procedure. The physical status of the patient was re-assessed after the procedure. The Colonoscope was introduced through the anus and advanced to the terminal ileum, with identification of the appendiceal orifice and IC valve. The colonoscopy was performed without difficulty. The patient tolerated the procedure well. The quality of the bowel preparation was good. The terminal ileum, the ileocecal valve and the appendiceal orifice were photographed. Scope insertion time was 3 minutes. Scope withdrawal time was 6 minutes. The total duration of the procedure was 10 minutes. Findings: The perianal and digital rectal examinations were normal. The terminal ileum appeared normal. Normal mucosa was found from descending colon to cecum. A few hyperplastic and sessile polyps were found in the descending colon and transverse colon. The polyps were diminutive in size. Polypectomy was not attempted due to hyperplastic appearing diminutive polyps and not the cause for patient symptoms. There was evidence of a widely patent end colostomy in the proximal sigmoid colon. This was characterized by healthy appearing mucosa, an intact appearance and visible sutures. Impression: - The examined portion of the ileum was normal. - Normal mucosa from descending to cecum. - A few diminutive polyps in the descending colon and in the transverse colon. Resection not attempted. - Widely patent end colostomy with visible sutures, an intact appearance and healthy appearing mucosa in the proximal sigmoid colon. - No specimens collected. Recommendation: - Patient has a contact number available for emergencies. The signs and symptoms of potential delayed complications were discussed with the patient. Return to normal activities tomorrow. Written discharge instructions were provided to the patient. - [facility] to [facility] care. - Advance diet as tolerated. Start with tube feeding and then if tolerating then remove NG tube and start on oral diet. - Continue present medications. Adequate IV hydration ( prefer ringers lactate). - Miralax 1 capful (17 grams) in 8 ounces of water PO daily. - Repeat colonoscopy in 1 year for surveillance. - Return to primary care physician. Duke Burkett MD Duke Burkett MD 11/16/2018 4:47:10 PM Electronically signed by Duke Burkett MD Number of Addenda: 0 Note Initiated On: 11/16/2018 4:05 PM Estimated Blood Loss: Estimated blood loss: none.
[2018-11-16] MEDS ORDERED: HumaLOG INSULIN (NovoLOG) PER UNIT SC SCH (18:00)
[2018-11-16] MEDS ORDERED: MULTIVITAMIN -ADULT INJECTION 10 ML, CR/CU/SE/MN/ZN INJ 1 ML in AMINO AC/ELECTROLYTE/DE... IV SCH (18:00)
[2018-11-16] MEDS ORDERED: FAT EMULSION IV 20% 500 ML IV SCH (18:00)
[2018-11-17] VITALS (7 sets, daily range): BP systolic 108–123; BP diastolic 72–82
[2018-11-17] MEDS: HumaLOG INSULIN (NovoLOG) PER UNIT SC SCH ×4 (00:26→18:08)
[2018-11-17] MEDS: ONDANSETRON 4MG/2ML VIAL (J2405) IV SCH ×4 (01:55→19:48)
[2018-11-17] MEDS: HYDROmorphone 2 MG TAB PO SCH ×4 (01:55→19:49)
[2018-11-17] MEDS: SODIUM CHLORIDE 0.9% INJ 10 ML SYR IV SCH ×2 (06:00→18:09)
[2018-11-17 06:37] LABS: BASO # 0.1 10^3/uL (0.0-0.2); BASO % 0.9 % (0.0-1.0); EOS # 0.4 10^3/uL (0.0-0.50); EOS % 4.6 % (0.0-3.0); HEMATOCRIT 28.8 % (42.0-52.0); LYMPH # 1.3 10^3/uL (1.5-4.5); LYMPH % 14.7 % (24.0-44.0); MEAN CORPUSCULAR HEMOGLOBIN 26.6 pg (27.0-33.0); MEAN CORPUSCULAR HGB CONC 31.3 g/dl (32.0-36.5); MEAN CORPUSCULAR VOLUME 85.2 fl (80.0-96.0); MONO # 0.8 10^3/uL (0.0-0.8); MONO % 8.9 % (0.0-5.0); NEUTROPHILS # 6.1 10^3/uL (1.8-7.7); NEUTROPHILS % 70.4 % (36.0-66.0); PLATELET COUNT, AUTOMATED 270 10^3/uL (150-450); RED BLOOD COUNT 3.38 10^6/uL (4.30-6.10); WHITE BLOOD COUNT 8.6 10^3/uL (4.0-10.0)
[2018-11-17 07:05] LABS: ALBUMIN 2.1 GM/DL (3.2-5.2); BLOOD UREA NITROGEN 19 MG/DL (7-18); CARBON DIOXIDE LEVEL 21 MEQ/L (21-32); CHLORIDE LEVEL 105 MEQ/L (98-107); CREATININE FOR GFR 0.67 MG/DL (0.70-1.30); GLOMERULAR FILTRATION RATE > 60.0 (>56); GLUCOSE, FASTING 178 MG/DL (70-100); PHOSPHORUS LEVEL 3.3 MG/DL (2.5-4.9); POTASSIUM SERUM 4.4 MEQ/L (3.5-5.1); SODIUM LEVEL 135 MEQ/L (136-145)
[2018-11-17] MEDS: SUCRALFATE 1 GM TAB PO SCH ×4 (08:28→21:00)
[2018-11-17] MEDS: PANTOPRAZOLE 40MG INJ (PROTONIX) (C9113) IV SCH ×2 (08:28→21:15)
[2018-11-17] MEDS: ROSUVASTATIN 10 MG TAB (CRESTOR) PO SCH (08:28)
[2018-11-17] MEDS: AMIODARONE 200 MG TAB (PACERONE) PO SCH (08:30)
[2018-11-17] MEDS: CARVedilol 6.25 MG TAB PO SCH ×2 (08:37→21:00)
[2018-11-17] MEDS: FLEET ENEMA PR SCH ×2 (08:42→21:00)
--- NOTE | 2018-11-17 11:11 | IPN ---
DATE: 11/17/2018 Dae is seen [facility]. He pulled his NG tube out earlier this morning. He does not want it reinserted. He thinks he can continue to take oral nutrition. He had a colonoscopy yesterday. He had a few diminutive polyps that were not resected. Colostomy had visible sutures, intact appearance, healthy mucosa. Nothing on the right side that looked as a cause for his pain. Labs: CBC is unremarkable/unchanged. Electrolytes unremarkable/unchanged. Exam: Lungs clear. Heart regular rhythm. Abdomen soft, diffusely tender. Plan: At this point, to contact [facility] and see whether they would consider transfer for endoscopic ultrasound, possible celiac plexus block to reduce his pain. I have a placed a call to transfer later today, though realistically it is unlikely to happen over the weekend.
[2018-11-17] MEDS: DRONABINOL 2.5 MG CAP (MARINOL) PO SCH ×2 (12:19→18:10)
[2018-11-17] MEDS ORDERED: HumaLOG INSULIN (NovoLOG) PER UNIT SC SCH (18:00)
[2018-11-17] MEDS ORDERED: AMINO AC/ELECTROLYTE/DEX/CALC 2,000 ML IV SCH (18:00)
[2018-11-17] MEDS ORDERED: FAT EMULSION IV 20% 500 ML IV SCH (18:00)
[2018-11-18] MEDS: HumaLOG INSULIN (NovoLOG) PER UNIT SC SCH ×4 (00:03→18:34)
[2018-11-18] MEDS: ONDANSETRON 4MG/2ML VIAL (J2405) IV SCH ×4 (01:53→19:04)
[2018-11-18] MEDS: HYDROmorphone 2 MG TAB PO SCH ×4 (01:53→19:40)
[2018-11-18 02:00] VITALS: BP 113/81
[2018-11-18 06:00] VITALS: BP 123/88
[2018-11-18] MEDS: SODIUM CHLORIDE 0.9% INJ 10 ML SYR IV SCH ×2 (06:00→18:36)
[2018-11-18 06:32] LABS: BASO # 0.1 10^3/uL (0.0-0.2); BASO % 1.1 % (0.0-1.0); EOS # 0.5 10^3/uL (0.0-0.50); EOS % 5.2 % (0.0-3.0); HEMATOCRIT 29.1 % (42.0-52.0); HEMOGLOBIN 9.2 g/dl (13.5-17.5); LYMPH # 1.3 10^3/uL (1.5-4.5); LYMPH % 14.7 % (24.0-44.0); MEAN CORPUSCULAR HEMOGLOBIN 26.7 pg (27.0-33.0); MEAN CORPUSCULAR HGB CONC 31.6 g/dl (32.0-36.5); MEAN CORPUSCULAR VOLUME 84.3 fl (80.0-96.0); MONO # 0.9 10^3/uL (0.0-0.8); MONO % 9.9 % (0.0-5.0); NEUTROPHILS # 6.1 10^3/uL (1.8-7.7); NEUTROPHILS % 68.2 % (36.0-66.0); PLATELET COUNT, AUTOMATED 272 10^3/uL (150-450); RED BLOOD COUNT 3.45 10^6/uL (4.30-6.10); WHITE BLOOD COUNT 8.9 10^3/uL (4.0-10.0)
[2018-11-18 07:01] LABS: ALBUMIN 2.2 GM/DL (3.2-5.2); BLOOD UREA NITROGEN 22 MG/DL (7-18); CALCIUM LEVEL 8.8 MG/DL (8.5-10.1); CARBON DIOXIDE LEVEL 20 MEQ/L (21-32); CHLORIDE LEVEL 103 MEQ/L (98-107); CREATININE FOR GFR 0.66 MG/DL (0.70-1.30); GLOMERULAR FILTRATION RATE > 60.0 (>56); GLUCOSE, FASTING 187 MG/DL (70-100); PHOSPHORUS LEVEL 3.7 MG/DL (2.5-4.9); POTASSIUM SERUM 4.7 MEQ/L (3.5-5.1); SODIUM LEVEL 132 MEQ/L (136-145)
[2018-11-18] MEDS: PANTOPRAZOLE 40MG INJ (PROTONIX) (C9113) IV SCH (08:25)
[2018-11-18] MEDS: FLEET ENEMA PR SCH (08:31)
[2018-11-18] MEDS: AMIODARONE 200 MG TAB (PACERONE) PO SCH (08:33)
[2018-11-18] MEDS: CARVedilol 6.25 MG TAB PO SCH (08:33)
[2018-11-18] MEDS: ROSUVASTATIN 10 MG TAB (CRESTOR) PO SCH (08:33)
[2018-11-18] MEDS: SUCRALFATE 1 GM TAB PO SCH ×3 (08:34→18:34)
[2018-11-18 10:00] VITALS: BP 129/89
[2018-11-18] MEDS: DRONABINOL 2.5 MG CAP (MARINOL) PO SCH ×2 (13:39→18:35)
[2018-11-18 14:00] VITALS: BP 130/97
--- NOTE | 2018-11-18 16:17 | IPN ---
DATE: 11/18/2018 Dae is trying to take by mouth, he says he feels nauseated and gets pain but he is taking some. He pulled his nasogastric (NG) tube out a few days ago. Put in a call to [facility], waiting for a call back about a potential transfer for endoscopic ultrasound and perhaps celiac plexus block for his intractable pain probably from his pancreatitis. PHYSICAL EXAMINATION: Blood pressure 130/97, pulse 100, respiratory rate 17, temperature 96.3 degrees. General appearance: He is lying in bed, he looks the same as yesterday, stable appearance. Lungs: Clear. Heart: Regular rhythm. Abdomen: Soft, diffusely mildly tender. No peripheral edema. LABORATORY DATA: White count 8.9, hemoglobin 9.2, platelets 272, sodium 132, potassium 4.7, BUN 22, creatinine 0.6, blood sugar 187, albumin 2.2. Blood sugars have been below 200 (on total parenteral nutrition (TPN)). IMPRESSION: 1. Right-sided abdominal pain. Colonoscopy was unremarkable. Dr. Burkett, gastroenterology (GI) service, has advised that he consider transfer for endoscopic ultrasound and possible celiac plexus block for pain that he feels is related to chronic pancreatitis. Colonoscopy was unremarkable and the colostomy looked unremarkable via endoscopic evaluation also. 2. Malnutrition. He is on total parenteral nutrition (TPN). He is trying to increase the amounts by mouth. Sodium is down to 132. He has followup labs tomorrow. 3. Anemia of chronic disease. This is stable.
[2018-11-18 18:00] VITALS: BP 121/88
[2018-11-18] MEDS ORDERED: FAT EMULSION IV 20% 500 ML IV SCH (18:00)
[2018-11-18] MEDS ORDERED: AMINO AC/ELECTROLYTE/DEX/CALC 2,000 ML IV SCH (18:00)
--- NOTE | 2018-11-18 18:39 | IPN ---
DATE: 11/18/2018 Dae insist on getting something for sleep with his hydromorphone dosing. I am reluctant to give him benzodiazepine with his poor appetite. He would be better served by sedating antidepressants, so I started some Remeron 15 mg at bedtime (q.h.s.) scheduled.
[2018-11-18] MEDS ORDERED: MIRTAZAPINE 15 MG TAB PO SCH (21:00)
--- NOTE | 2018-11-19 06:41 | DSES ---
DATE OF ADMISSION: 10/21/2018 DATE OF DISCHARGE/DATE OF TRANSFER: 11/18/2018 DISCHARGE DIAGNOSIS: Persisting abdominal pain after episode of severe pancreatitis. TRANSFER TO: [facility], Dr. Hirsch accepting physician. INDICATION FOR TRANSFER: Endoscopic ultrasound and consideration for celiac ganglion block. HISTORY: Dae Shipman is a 48-year-old gentleman admitted to [facility] for about three months, the end of July through early August was discharged home for a few days and then readmitted with persistent abdominal pain that was unresponsive to Dilaudid 6 mg every six hours. CT of the abdomen and pelvis did not show pseudocyst but did show some inflammation around the pancreas. PAST MEDICAL HISTORY: 1. Dilated cardiomyopathy. Implantable cardioverter defibrillator (ICD) in place. Last ejection fraction 10 - 15%. He is on amiodarone. 2. History of type 2 diabetes. 3. Coronary disease. 4. Depression. 5. Hyperlipidemia. 6. Recurrent Clostridium difficile colitis but no current episode with this. HOSPITAL COURSE: He was admitted to a medical bed and had long hospitalizations consisting primarily of attempts with pain control, pain clinic saw him and made recommendations for medication. Noted a celiac ganglion block might be useful which is not a procedure that they did. He was seen by Madelaine from the gastrointestinal (GI) service, as well as Dr. Nolasco and Dr. Bedoya from the surgical service. Dr. Burkett did a colonoscopy on him last week. He noted the colostomy had visible sutures intact and appears healthy. He noted no abnormalities in the right side of the colon which is where most of the abdominal pain is. He advised transfer for endoscopic ultrasound. The patient is on total parenteral nutrition (TPN) trying to take an oral diet but has a poor appetite, persistent pain and nausea. His diabetes has been addressed with a sliding scan of insulin. He has been well compensated as far as his congestive heart failure. No evidence of volume overload. On exam there are no coronary symptoms. SIGNIFICANT LABORATORY DATA: Today his sodium is 132, potassium 4.7, BUN 22, creatinine 0.6, glucose 18, white count 8.9, hemoglobin 9.2, platelets 270. He was some antibiotics, on admission Zosyn and vancomycin from 10/26 to 11/01, discontinued when he was no longer felt to have an infectious etiology for his pancreatic pain. IMAGING: Abdominal ultrasound on 11/12 showed no pancreatic or biliary ductal dilatation. Drainage tube in the gallbladder, right pleural effusion. CT angiogram on 11/12 showed a pancreatitis picture with diffuse peripancreatic intrapancreatic swelling. No established mature fluid collection. Percutaneous cholecystostomy tube. Bilateral pleural effusions. Celiac mesenteric arteries are widely patent. The intramesenteric artery is not seen. CURRENT MEDICATIONS: - Dilaudid 2 mg every 6 hours - Humalog on a sliding scale - Zofran 4 mg every 6 hours as needed - Protonix 40 mg IV twice a day - heparin flush total parenteral nutrition (TPN) - Phenergan 25 mg every 8 hours as needed - Compazine 25 mg every 12 hours as needed He is prescribed but the patient has refused to take today due to nausea rosuvastatin 20 mg daily. - Carafate 1 gram every morning and nightly - Coreg 6.25 mg twice a day - amiodarone 400 mg daily - Marinol 2.5 mg twice a day I intended to start mirtazapine 15 mg nightly today to help sleep and maybe stimulate his appetite, help some of his depression but transfer became available today and he has not started this. The patient is being transferred to [facility]. Appreciate the accepting physician, Dr. Hirsch taking this patient for endoscopic ultrasound procedure due to consideration of celiac ganglion block which is not available here. After these procedures are either performed for considered would be in the patient's best interest to transfer back to [facility] as family lives in [place] and it will be a hardship for them to travel to [place] and visit [facility]
== END 2018-11-18 19:50 | disposition short-term general hospital (02) | DRG 329 ==
LOC: M ED 09:48 → M ED INP 12:17 → M MS5PR 14:15 → M PCU 10-25 14:26 → M MSPAV 11-12 12:16
PROVIDERS: ADMIT Family Medicine; ATTEND Family Medicine
PROC: 30233N1 Transfusion of Nonautologous Red Blood Cells into Peripheral Vein, Percutaneous Approach (ICD-10-PCS; 2018-10-23)
PROC: 0DBN7ZX Excision of Sigmoid Colon, Via Natural or Artificial Opening, Diagnostic (ICD-10-PCS; 2018-10-24)
PROC: 0DB Gastrointestinal System, Excision (ICD-10-PCS; 2018-10-31)
PROC: 8E0W4CZ Robotic Assisted Procedure of Trunk Region, Percutaneous Endoscopic Approach (ICD-10-PCS; 2018-10-31)
PROC: 0D1N4Z4 Bypass Sigmoid Colon to Cutaneous, Percutaneous Endoscopic Approach (ICD-10-PCS; principal; 2018-10-31 07:30)
PROC: 30233N1 Transfusion of Nonautologous Red Blood Cells into Peripheral Vein, Percutaneous Approach (ICD-10-PCS; 2018-11-06)
PROC: 0DJ08ZZ Inspection of Upper Intestinal Tract, Via Natural or Artificial Opening Endoscopic (ICD-10-PCS; 2018-11-09)
PROC: 0DJD8ZZ Inspection of Lower Intestinal Tract, Via Natural or Artificial Opening Endoscopic (ICD-10-PCS; 2018-11-09)
PROC: 0DJD8ZZ Inspection of Lower Intestinal Tract, Via Natural or Artificial Opening Endoscopic (ICD-10-PCS; 2018-11-16)
DX: K56.699 Other intestinal obstruction unspecified as to partial versus complete obstruction (principal); J18.9 Pneumonia, unspecified organism; I50.43 Acute on chronic combined systolic (congestive) and diastolic (congestive) heart failure; K85.90 Acute pancreatitis without necrosis or infection, unspecified; E46 Unspecified protein-calorie malnutrition; K92.2 Gastrointestinal hemorrhage, unspecified; K81.0 Acute cholecystitis; E78.5 Hyperlipidemia, unspecified; E11.51 Type 2 diabetes mellitus with diabetic peripheral angiopathy without gangrene; F32.9 Major depressive disorder, single episode, unspecified; I25.10 Atherosclerotic heart disease of native coronary artery without angina pectoris; Z95.2 Presence of prosthetic heart valve; Z95.1 Presence of aortocoronary bypass graft; I25.2 Old myocardial infarction; Z79.899 Other long term (current) drug therapy; F17.200 Nicotine dependence, unspecified, uncomplicated; Z88.8 Allergy status to other drugs, medicaments and biological substances; N40.0 Benign prostatic hyperplasia without lower urinary tract symptoms; Z86.73 Personal history of transient ischemic attack (TIA), and cerebral infarction without residual deficits; I11.0 Hypertensive heart disease with heart failure; J44.9 Chronic obstructive pulmonary disease, unspecified; K21.9 Gastro-esophageal reflux disease without esophagitis; E11.40 Type 2 diabetes mellitus with diabetic neuropathy, unspecified; G43.909 Migraine, unspecified, not intractable, without status migrainosus; Z79.82 Long term (current) use of aspirin; D12.4 Benign neoplasm of descending colon; D12.3 Benign neoplasm of transverse colon

== ENCOUNTER 2019-01-06 10:51 | Emergency (ER) | payer MEDICARE, MEDICAID ==
[~2019-01-06] VITALS: Ht 175.3 cm; Wt 63.6 kg
[~2019-01-06 10:51] MED LIST changes: +DICY10CA13 PO; +FERR325T16 PO; +OXYC-517 PO; +VANC-7 IV; +VANC1CAP6 PO
[2019-01-06] MEDS ORDERED: NS 1,000 ML IV ONE (12:00)
[2019-01-06] MEDS ORDERED: ONDANSETRON 4MG/2ML VIAL (J2405) IV ONE (12:00)
[2019-01-06] MEDS ORDERED: HYDROMORPHONE HCL 0.5 MG/ 0.5 ML SYRINGE (J1170 PER 1) IV ONE ×4 (12:00→15:30)
[2019-01-06 12:01] LABS: BASO # 0.1 10^3/uL (0.0-0.2); BASO % 1.8 % (0.0-1.0); EOS # 0.3 10^3/uL (0.0-0.50); EOS % 4.1 % (0.0-3.0); HEMATOCRIT 28.4 % (42.0-52.0); HEMOGLOBIN 9.2 g/dl (13.5-17.5); LYMPH # 1.6 10^3/uL (1.5-4.5); LYMPH % 20.8 % (24.0-44.0); MEAN CORPUSCULAR HEMOGLOBIN 27.4 pg (27.0-33.0); MEAN CORPUSCULAR HGB CONC 32.4 g/dl (32.0-36.5); MEAN CORPUSCULAR VOLUME 84.5 fl (80.0-96.0); MONO # 0.7 10^3/uL (0.0-0.8); MONO % 9.4 % (0.0-5.0); NEUTROPHILS # 4.9 10^3/uL (1.8-7.7); NEUTROPHILS % 63.5 % (36.0-66.0); PLATELET COUNT, AUTOMATED 310 10^3/uL (150-450); RED BLOOD COUNT 3.36 10^6/uL (4.30-6.10); WHITE BLOOD COUNT 7.8 10^3/uL (4.0-10.0)
--- NOTE | 2019-01-06 12:19 | REP ---
Clinical: Chest pain . Comparison: 01/05/2019 . Findings: The mediastinum and cardiac silhouette are stable and within normal limits for portable technique. The lung patterson are clear without acute consolidation, effusion, or pneumothorax. Skeletal structures are intact. Impression: No acute cardiopulmonary process appreciated. Electronically Signed by Shakeel Ramírez MD 01/06/2019 12:11 P
[2019-01-06 12:26] LABS: ALBUMIN 3.2 GM/DL (3.2-5.2); BILIRUBIN,DIRECT 0.1 MG/DL (0.0-0.2); BILIRUBIN,TOTAL 0.4 MG/DL (0.2-1.0); MB/CK RELATIVE INDEX 9.31 (< OR =4); TOTAL PROTEIN 7.2 GM/DL (6.4-8.2); TROPONIN I 0.08 NG/ML (< 0.10)
[2019-01-06] MEDS ORDERED: diphenhydrAMINE INJ 50MG/ML VIAL (J1200) IV STA ×2 (12:39→14:06)
[2019-01-06 16:18] VITALS: BP 108/58
[2019-01-06] MEDS ORDERED: SODIUM CHLORIDE 0.9% INJ 10 ML SYR IV SCH (18:00)
--- NOTE | 2019-01-06 19:35 | ECGEPIP ---
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
[2019-01-08] MEDS ORDERED: VANC125C3 PO (19:41)
[2019-01-08] MEDS ORDERED: ASPI81TA85 PO (20:41)
[2019-01-08] MEDS ORDERED: DEXI60CA2 PO (20:41)
[2019-01-08] MEDS ORDERED: CLOP75TA2 PO (20:41)
[2019-01-08] MEDS ORDERED: CARV12.5 PO (20:41)
[2019-01-08] MEDS ORDERED: DICY10CA13 PO (20:41)
[2019-01-08] MEDS ORDERED: BISA10SU3 PR (20:41)
[2019-01-08] MEDS ORDERED: PROAAER10 INH (20:41)
[2019-01-08] MEDS ORDERED: HUMA100I5 SC (20:48)
[2019-01-08] MEDS ORDERED: ROSU20TA4 PO (20:48)
[2019-01-08] MEDS ORDERED: QC A650T3 PO (20:48)
[2019-01-08] MEDS ORDERED: HYDR-643 PO (20:48)
[2019-01-08] MEDS ORDERED: MILKSUS3 PO (20:48)
[2019-01-08] MEDS ORDERED: FLOR250C PO (20:48)
[2019-01-08] MEDS ORDERED: MAGN400T2 PO (20:48)
[2019-01-08] MEDS ORDERED: GABA-845 PO (20:48)
[2019-01-08] MEDS ORDERED: SPIR1CAP INH (20:48)
[2019-01-08] MEDS ORDERED: MULTCAP PO (20:48)
[2019-01-08] MEDS ORDERED: IPRA0.00 NEB (20:48)
[2019-01-08] MEDS ORDERED: FLUO40CA PO (20:48)
[2019-01-08] MEDS ORDERED: SENN8.6T28 PO (20:48)
[2019-01-08] MEDS ORDERED: PHARMACY COMMENT (20:52)
[2019-01-17] MEDS ORDERED: MAG400TA PO (10:41)
== END 2019-01-06 19:12 | disposition left against medical advice (07) ==
LOC: M ED 10:51
DX: K86.1 Other chronic pancreatitis (principal); I44.7 Left bundle-branch block, unspecified; E11.9 Type 2 diabetes mellitus without complications; I11.0 Hypertensive heart disease with heart failure; I50.9 Heart failure, unspecified; J44.9 Chronic obstructive pulmonary disease, unspecified; E78.5 Hyperlipidemia, unspecified; N40.0 Benign prostatic hyperplasia without lower urinary tract symptoms; K21.9 Gastro-esophageal reflux disease without esophagitis; F41.9 Anxiety disorder, unspecified; Z95.0 Presence of cardiac pacemaker; Z95.5 Presence of coronary angioplasty implant and graft; Z79.899 Other long term (current) drug therapy; Z79.82 Long term (current) use of aspirin; Z79.4 Long term (current) use of insulin; F17.210 Nicotine dependence, cigarettes, uncomplicated

== ENCOUNTER 2019-01-07 09:34 | Emergency (ER) | payer MEDICARE, MEDICAID ==
[~2019-01-07] VITALS: Ht 175.3 cm; Wt 63.6 kg
[2019-01-07] MEDS ORDERED: NS 1,000 ML IV ONE (10:45)
[2019-01-07] MEDS ORDERED: ONDANSETRON 4MG/2ML VIAL (J2405) IV ONE (10:45)
[2019-01-07 10:55] LABS: BASO # 0.1 10^3/uL (0.0-0.2); BASO % 1.8 % (0.0-1.0); EOS # 0.6 10^3/uL (0.0-0.50); EOS % 7.1 % (0.0-3.0); HEMATOCRIT 27.1 % (42.0-52.0); HEMOGLOBIN 8.6 g/dl (13.5-17.5); LYMPH # 1.5 10^3/uL (1.5-4.5); LYMPH % 19.2 % (24.0-44.0); MEAN CORPUSCULAR HGB CONC 31.7 g/dl (32.0-36.5); MEAN CORPUSCULAR VOLUME 85.2 fl (80.0-96.0); MONO # 0.7 10^3/uL (0.0-0.8); NEUTROPHILS # 4.9 10^3/uL (1.8-7.7); NEUTROPHILS % 62.5 % (36.0-66.0); PLATELET COUNT, AUTOMATED 283 10^3/uL (150-450); RED BLOOD COUNT 3.18 10^6/uL (4.30-6.10); WHITE BLOOD COUNT 7.8 10^3/uL (4.0-10.0)
[2019-01-07] MEDS: HYDROMORPHONE HCL 0.5 MG/ 0.5 ML SYRINGE (J1170 PER 1) IV PRN ×3 (10:57→12:09)
--- NOTE | 2019-01-07 11:21 | REP ---
CHEST, SINGLE VIEW: COMPARISON: 01/06/2019 There is no evidence of acute infiltrate. No pleural effusion is seen. The heart is normal in size. The mediastinal silhouette is unremarkable. The visualized osseous structures are intact. A right arm PICC line is seen with the tip at the junction of the superior vena cava and right atrium. IMPRESSION: No acute pulmonary disease. Electronically Signed by Jude Hamilton MD 01/08/2019 11:54 A
[2019-01-07 11:32] LABS: ALBUMIN 2.9 GM/DL (3.2-5.2); ALT/SGPT 19 U/L (12-78); BILIRUBIN,DIRECT < 0.1 MG/DL (0.0-0.2); BILIRUBIN,TOTAL 0.3 MG/DL (0.2-1.0); BLOOD UREA NITROGEN 21 MG/DL (7-18); CALCIUM LEVEL 9.2 MG/DL (8.5-10.1); CARBON DIOXIDE LEVEL 23 MEQ/L (21-32); CHLORIDE LEVEL 109 MEQ/L (98-107); CPK CREATINE PHOSPHOKINASE 26 U/L (39-308); CREATININE FOR GFR 1.26 MG/DL (0.70-1.30); GLOMERULAR FILTRATION RATE > 60.0 (>56); GLUCOSE, FASTING 107 MG/DL (70-100); LIPASE 132 U/L (73-393); MB/CK RELATIVE INDEX 6.92 (< OR =4); SODIUM LEVEL 140 MEQ/L (136-145); TOTAL PROTEIN 6.8 GM/DL (6.4-8.2); TROPONIN I 0.07 NG/ML (< 0.10)
[2019-01-07] MEDS ORDERED: diphenhydrAMINE INJ 50MG/ML VIAL (J1200) IV ONE (11:45)
[2019-01-07] MEDS ORDERED: HYDROMORPHONE HCL 0.5 MG/ 0.5 ML SYRINGE (J1170 PER 1) As Ordered ONE (12:08)
[2019-01-07] MEDS ORDERED: ISOVUE-370 76% 100ML VIAL (Q9967) As Ordered ONE (12:09)
[2019-01-07] MEDS ORDERED: hydrOXYzine 25 MG TAB PO STA (12:35)
--- NOTE | 2019-01-07 13:23 | REP ---
REASON: Chest pain. COMPARISON: 01/05/2019. CONTRAST: 100 mL Isovue 370. An older chest CT 07/31/2018 was also reviewed. The prior exam of 01/05/2019 showed no evidence of acute disease. There is excellent visualization of the pulmonary arterial vasculature. There are no focal filling defects present that would be considered consistent with pulmonary emboli. There are no pleural or pericardial effusions. There is no mediastinal or hilar adenopathy. The imaged upper abdomen and imaged osseous structures are unchanged from the prior exam. Evaluation of the lung patterson show no acute abnormal nodules, masses, or opacities. Note is again made of bilateral subsegmental dependent atelectatic change. IMPRESSION: No acute disease. No significant change from the prior exam. Electronically Signed by Wesley Raymond DO 01/07/2019 01:58 P
--- NOTE | 2019-01-07 13:31 | REP ---
REASON: History of pancreatitis. COMPARISON: 01/05/2019 the latest prior and 12/02/2018 with other older priors also reviewed. CONTRAST: 100 mL Isovue 370. The liver, gallbladder, spleen, pancreas, adrenal glands, and kidneys are unchanged. Note is again made of a cholecystostomy tube in place and there is a left lower quadrant ileostomy. Once again, note is made of numerable low density areas within and surrounding pancreatic tissue consistent with pseudocyst formation. The appearance of this is unchanged from 01/05/2019, but with evidence of maturation of the pseudocyst when compared to the 11/12/2018 exam. Once again, there is thickening of the left lateroconal fascia with mild peripancreatic fatty infiltration. This is unchanged from the latest prior. No acute free fluid has developed. There is no evidence of free intraperitoneal air. There is no change in the appearance of the abdominal aorta or periaortic regions. There is no significant change in the appearance of the bowel loops or their mesenteries. CT PELVIS: There is no evidence of free fluid or free air. There is no evidence of mass or adenopathy. There is no significant change in the appearance of the bowel loops or their mesenteries. Bone window technique throughout the examination shows no change in the osseous structures. IMPRESSION: History of pancreatis with mature pseudocyst formation status quo from 01/05/2019. Cholecystostomy tube unchanged. Ileostomy site unchanged. Other findings as described above. Electronically Signed by Wesley Raymond DO 01/07/2019 01:58 P
[2019-01-07] MEDS ORDERED: HYDROMORPHONE HCL 0.5 MG/ 0.5 ML SYRINGE (J1170 PER 1) IV ONE (14:00)
--- NOTE | 2019-01-07 14:04 | REP ---
REASON: Right upper quadrant pain. COMPARISON: 11/12/2018 which showed a cholecystotomy tube and a right pleural effusion. Today's exam again shows the gallbladder to be contracted with a cholecystotomy tube in place. There is no change in appearance of the gallbladder. The common bile duct measures between 4 and 5 mm status quo. The imaged portion of the pancreas and right kidney are normal although the pancreas is seen in a very limited view due to the patient's intestinal gas pattern. IMPRESSION: No significant change from the prior exam. Electronically Signed by Wesley Raymond DO 01/07/2019 02:51 P
[2019-01-07] MEDS ORDERED: MORPHINE 4 MG/ML 1ML VIAL/SYRINGE (J2270) IV ONE ×2 (14:30→15:15)
[2019-01-07] MEDS ORDERED: diphenhydrAMINE INJ 50MG/ML VIAL (J1200) IV STA (15:05)
[2019-01-07 15:52] VITALS: BP 126/65
[2019-01-08] MEDS ORDERED: VANC125C3 PO (19:41)
[2019-01-08] MEDS ORDERED: DICY10CA13 PO (20:41)
[2019-01-08] MEDS ORDERED: CARV12.5 PO (20:41)
[2019-01-08] MEDS ORDERED: CLOP75TA2 PO (20:41)
[2019-01-08] MEDS ORDERED: PROAAER10 INH (20:41)
[2019-01-08] MEDS ORDERED: BISA10SU3 PR (20:41)
[2019-01-08] MEDS ORDERED: DEXI60CA2 PO (20:41)
[2019-01-08] MEDS ORDERED: ASPI81TA85 PO (20:41)
[2019-01-08] MEDS ORDERED: ROSU20TA4 PO (20:48)
[2019-01-08] MEDS ORDERED: HYDR-643 PO (20:48)
[2019-01-08] MEDS ORDERED: MAGN400T2 PO (20:48)
[2019-01-08] MEDS ORDERED: HUMA100I5 SC (20:48)
[2019-01-08] MEDS ORDERED: MULTCAP PO (20:48)
[2019-01-08] MEDS ORDERED: IPRA0.00 NEB (20:48)
[2019-01-08] MEDS ORDERED: FLOR250C PO (20:48)
[2019-01-08] MEDS ORDERED: SENN8.6T28 PO (20:48)
[2019-01-08] MEDS ORDERED: MILKSUS3 PO (20:48)
[2019-01-08] MEDS ORDERED: FLUO40CA PO (20:48)
[2019-01-08] MEDS ORDERED: QC A650T3 PO (20:48)
[2019-01-08] MEDS ORDERED: GABA-845 PO (20:48)
[2019-01-08] MEDS ORDERED: SPIR1CAP INH (20:48)
[2019-01-08] MEDS ORDERED: PHARMACY COMMENT (20:52)
[2019-01-17] MEDS ORDERED: MAG400TA PO (10:41)
== END 2019-01-07 15:55 | disposition home or self-care (01) ==
LOC: M ED 09:34
DX: K85.90 Acute pancreatitis without necrosis or infection, unspecified (principal); R10.9 Unspecified abdominal pain; I50.9 Heart failure, unspecified; I25.10 Atherosclerotic heart disease of native coronary artery without angina pectoris; E11.9 Type 2 diabetes mellitus without complications; I10 Essential (primary) hypertension; K27.9 Peptic ulcer, site unspecified, unspecified as acute or chronic, without hemorrhage or perforation; E78.5 Hyperlipidemia, unspecified; Z95.1 Presence of aortocoronary bypass graft; Z72.0 Tobacco use; Z93.2 Ileostomy status

== ENCOUNTER → 2019-01-21 | Outpatient (REF) | payer MEDICARE, MEDICAID ==
[~2019-01-21] MED LIST changes: +BISA10SU3 PR; +ELIQ5TAB PO; +FLOR250C PO; +GABA-845 PO; +HUMA100I5 SC; +IPRA0.00 NEB; +MAG400TA PO; +MILKSUS3 PO; +MULTCAP PO; +PHARMACY COMMENT; +PROAAER10 INH; +QC A650T3 PO; +SENN8.6T28 PO; +VANC125C3 PO
[2019-01-21 16:17] LABS: BASO # 0.1 10^3/uL (0.0-0.2); BASO % 1.5 % (0.0-1.0); EOS # 0.7 10^3/uL (0.0-0.50); EOS % 8.9 % (0.0-3.0); HEMATOCRIT 34.8 % (42.0-52.0); HEMOGLOBIN 10.7 g/dl (13.5-17.5); LYMPH # 1.7 10^3/uL (1.5-4.5); MEAN CORPUSCULAR HEMOGLOBIN 28.2 pg (27.0-33.0); MEAN CORPUSCULAR HGB CONC 30.7 g/dl (32.0-36.5); MEAN CORPUSCULAR VOLUME 91.8 fl (80.0-96.0); MONO # 0.8 10^3/uL (0.0-0.8); MONO % 10.3 % (0.0-5.0); NEUTROPHILS # 4.7 10^3/uL (1.8-7.7); NEUTROPHILS % 57.9 % (36.0-66.0); PLATELET COUNT, AUTOMATED 239 10^3/uL (150-450); RED BLOOD COUNT 3.79 10^6/uL (4.30-6.10); WHITE BLOOD COUNT 8.1 10^3/uL (4.0-10.0)
[2019-01-21 16:27] LABS: ALBUMIN 2.6 GM/DL (3.2-5.2); ALT/SGPT 30 U/L (12-78); BILIRUBIN,TOTAL 0.1 MG/DL (0.2-1.0); BLOOD UREA NITROGEN 9 MG/DL (7-18); CALCIUM LEVEL 8.7 MG/DL (8.5-10.1); CARBON DIOXIDE LEVEL 26 MEQ/L (21-32); CHLORIDE LEVEL 107 MEQ/L (98-107); CREATININE FOR GFR 1.18 MG/DL (0.70-1.30); GLOMERULAR FILTRATION RATE > 60.0 (>56); GLUCOSE, FASTING 207 MG/DL (70-100); POTASSIUM SERUM 4.5 MEQ/L (3.5-5.1); SODIUM LEVEL 140 MEQ/L (136-145); TOTAL PROTEIN 6.1 GM/DL (6.4-8.2); VANCOMYCIN LEVEL TROUGH 12.9 UG/ML (10.0-20.0)
[2019-01-21 17:28] LABS: ERYTHROCYTE SEDIMENTATION RATE 37 mm/hr (0-20)
== END ==
LOC: M LAB REF 15:15 → M SHH 15:15
PROVIDERS: ATTEND Family Medicine
DX: R78.81 Bacteremia (principal); B95.62 Methicillin resistant Staphylococcus aureus infection as the cause of diseases classified elsewhere; K86.1 Other chronic pancreatitis

== ENCOUNTER 2019-01-23 10:55 | Emergency (ER) | payer MEDICARE, MEDICAID ==
[~2019-01-23] VITALS: Ht 175.3 cm; Wt 62.7 kg
[~2019-01-23 10:55] MED LIST changes: -BISA10SU3 PR; -ELIQ5TAB PO; -ROSU20TA4 PO; +ROSU20TA5 PO; -ROSU40TA3 PO; +ROSU40TA4 PO; +[UNRECOGNIZED DRUG - CODE] PR
[2019-01-23 11:28] LABS: BASO # 0.2 10^3/uL (0.0-0.2); BASO % 1.5 % (0.0-1.0); EOS # 0.8 10^3/uL (0.0-0.50); EOS % 7.4 % (0.0-3.0); HEMATOCRIT 34.9 % (42.0-52.0); HEMOGLOBIN 10.8 g/dl (13.5-17.5); LYMPH % 18.1 % (24.0-44.0); MEAN CORPUSCULAR HEMOGLOBIN 27.5 pg (27.0-33.0); MEAN CORPUSCULAR HGB CONC 30.9 g/dl (32.0-36.5); MEAN CORPUSCULAR VOLUME 88.8 fl (80.0-96.0); MONO # 1.2 10^3/uL (0.0-0.8); MONO % 10.6 % (0.0-5.0); NEUTROPHILS # 6.9 10^3/uL (1.8-7.7); NEUTROPHILS % 61.9 % (36.0-66.0); PLATELET COUNT, AUTOMATED 230 10^3/uL (150-450); RED BLOOD COUNT 3.93 10^6/uL (4.30-6.10); WHITE BLOOD COUNT 11.1 10^3/uL (4.0-10.0)
[2019-01-23] MEDS ORDERED: NS 500 ML IV SCH (11:30)
[2019-01-23] MEDS ORDERED: NS 500 ML IV ONE (11:30)
[2019-01-23 11:55] LABS: BLOOD UREA NITROGEN 9 MG/DL (7-18); CALCIUM LEVEL 9.3 MG/DL (8.5-10.1); CARBON DIOXIDE LEVEL 25 MEQ/L (21-32); CHLORIDE LEVEL 107 MEQ/L (98-107); CK-MB VALUE MASS 1.6 NG/ML (<3.6); CPK CREATINE PHOSPHOKINASE 30 U/L (39-308); CREATININE FOR GFR 1.17 MG/DL (0.70-1.30); GLOMERULAR FILTRATION RATE > 60.0 (>56); GLUCOSE, FASTING 114 MG/DL (70-100); MB/CK RELATIVE INDEX 5.33 (< OR =4); POTASSIUM SERUM 4.6 MEQ/L (3.5-5.1); SODIUM LEVEL 138 MEQ/L (136-145); TROPONIN I 0.05 NG/ML (< 0.10)
--- NOTE | 2019-01-23 11:55 | REP ---
PORTABLE CHEST X-RAY: Single view. HISTORY: Chest pain. COMPARISON CHEST X-RAY: January 08, 2019. FINDINGS: A right-sided PICC line is seen in place with its tip in the expected location of the superior vena cava. This is unchanged. Multiple wire leads from what appears to be a telemetry monitor/defibrillator device overlie the chest. Heart is not enlarged. No infiltrate is seen. Pulmonary vasculature is not increased. Pleural angles are sharp. IMPRESSION: No acute disease seen. Right-sided PICC line and telemetry monitor/defibrillator device overlies the chest. Electronically Signed by Everett Kent MD 01/23/2019 02:30 P
[2019-01-23] MEDS ORDERED: HYDROMORPHONE HCL 0.5 MG/ 0.5 ML SYRINGE (J1170 PER 1) IV PRN (12:30)
[2019-01-23 12:51] LABS: ALBUMIN 2.7 GM/DL (3.2-5.2); ALT/SGPT 25 U/L (12-78); BILIRUBIN,TOTAL 0.3 MG/DL (0.2-1.0); LIPASE 73 U/L (73-393); TOTAL PROTEIN 6.2 GM/DL (6.4-8.2)
[2019-01-23] MEDS ORDERED: ISOVUE-370 76% 100ML VIAL (Q9967) As Ordered ONE (19:22)
--- NOTE | 2019-01-23 19:34 | ECGEPIP ---
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
[2019-01-23 19:47] LABS: CK-MB VALUE MASS 1.4 NG/ML (<3.6); MB/CK RELATIVE INDEX 4.83 (< OR =4); TROPONIN I 0.04 NG/ML (< 0.10)
[2019-01-23 20:34] LABS: INR 1.21
[2019-01-23 20:35] LABS: PARTIAL THROMBOPLASTIN TIME 30.8 SECONDS (25.0-38.4)
--- NOTE | 2019-01-23 21:38 | REPVR ---
EXAM: CT Angiography Chest With Contrast EXAM DATE/TIME: 01/23/2019 8:02 PM CLINICAL HISTORY: 48 years old, male; Chest pain; Type not specified; Additional info: Dvt with cp TECHNIQUE: Imaging protocol: Axial computed tomographic angiography images of the chest with intravenous contrast using CT angiography protocol. Coronal and sagittal reformatted images were created and reviewed. 3D rendering: MIP reconstructed images were created and reviewed. Radiation optimization: All CT scans at this facility use at least one of these dose optimization techniques: automated exposure control; mA and/or kV adjustment per patient size (includes targeted exams where dose is matched to clinical indication); or iterative reconstruction. Contrast material: ISOVUE 370; Contrast volume: 75 ml; Contrast route: IV; COMPARISON: CT ANGIO CHEST 01/07/2019 12:42 PM FINDINGS: Significant beam hardening artifact related to metallic devices the patient is laying on, limit resolution of the lung bases. Pulmonary arteries: Normal. No pulmonary emboli. Aorta: Unremarkable. No aortic aneurysm. No aortic dissection. Lungs: Paraseptal type emphysema noted at the right lung apex. A thin reticular pleural based opacity in the left upper lobe anteriorly suggests scarring. Subpleural atelectasis in the dependent portion of the right lung base. Thickening of the bronchovascular bundles centrally in the right lung likely a reflection of mild volume loss in the dependent portion of the right lower lobe Pleural space: Small bilateral pleural effusions. obscured by beam hardening artifact. Heart: Unremarkable. No cardiomegaly. No pericardial effusion. Lymph nodes: Unremarkable. No enlarged lymph nodes. Bones/joints: Unremarkable. No acute fracture. Soft tissues: Unremarkable. IMPRESSION: 1. No pulmonary embolism. 2. Small bilateral pleural effusions with subpleural atelectasis in the dependent portion of the right lung. Electronically signed by: Adele Beltran On 01/23/2019 21:38:17 PM
[2019-01-23] MEDS ORDERED: ELIQ5TAB PO (22:25)
[2019-01-23] MEDS ORDERED: APIXABAN 5 MG TAB (ELIQUIS) PO ONE (22:30)
[2019-01-23 22:43] VITALS: BP 132/82
--- NOTE | 2019-01-24 07:09 | REP ---
RIGHT LOWER EXTREMITY DUPLEX DOPPLER VENOUS ULTRASOUND: Real-time sonographic evaluation and duplex Doppler interrogation of right lower extremity deep venous system is performed. Right common femoral and superficial femoral veins are fully compressible with transducer pressure and demonstrate normal spontaneous and phasic flow without evidence of deep venous thrombosis. There is partial thrombosis of the left popliteal vein and tibioperoneal trunk. IMPRESSION: Partial thrombosis left popliteal vein and tibioperoneal trunk. Electronically Signed by Jude Hamilton MD 01/24/2019 09:13 A
--- NOTE | 2019-01-24 08:29 | ED PDOC ---
Post-Departure Follow-Up raymundo francisco faxed formal report of cta chest for fu August Morales MD Jan 24, 2019 08:29
--- NOTE | 2019-01-24 10:26 | ECGEPIP ---
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
== END 2019-01-23 22:46 | disposition home or self-care (01) ==
LOC: EDBD 10:55 → M ED 10:55
DX: I82.431 Acute embolism and thrombosis of right popliteal vein (principal); R07.9 Chest pain, unspecified; I44.7 Left bundle-branch block, unspecified; E11.9 Type 2 diabetes mellitus without complications; I50.9 Heart failure, unspecified; J44.9 Chronic obstructive pulmonary disease, unspecified; I27.20 Pulmonary hypertension, unspecified; Z95.1 Presence of aortocoronary bypass graft; Z95.5 Presence of coronary angioplasty implant and graft; Z86.73 Personal history of transient ischemic attack (TIA), and cerebral infarction without residual deficits; Z79.899 Other long term (current) drug therapy; Z79.82 Long term (current) use of aspirin; Z79.4 Long term (current) use of insulin; Z79.01 Long term (current) use of anticoagulants
CPT/HCPCS: 36415; 71045; 71275; 80053; 82550; 82553; 83690; 84484; 85025; 85610; 85730; 87040; 93005; 93041; 93971; 94760; 96361; 96374; 99285; 99496; G0463; J1170; Q9967

== ENCOUNTER → 2019-01-29 | Outpatient (CLI) | payer MEDICARE, MEDICAID ==
[~2019-01-29] MED LIST changes: +BISA10SU3 PR; +ELIQ5TAB PO; +ROSU20TA4 PO; -ROSU20TA5 PO; +ROSU40TA3 PO; -ROSU40TA4 PO; -[UNRECOGNIZED DRUG - CODE] PR
[2019-01-29 17:25] LABS: BASO # 0.2 10^3/uL (0.0-0.2); BASO % 1.7 % (0.0-1.0); EOS # 0.6 10^3/uL (0.0-0.50); EOS % 7.1 % (0.0-3.0); HEMATOCRIT 37.7 % (42.0-52.0); HEMOGLOBIN 11.7 g/dl (13.5-17.5); LYMPH # 2.1 10^3/uL (1.5-4.5); LYMPH % 23.5 % (24.0-44.0); MEAN CORPUSCULAR HEMOGLOBIN 27.9 pg (27.0-33.0); MONO # 0.8 10^3/uL (0.0-0.8); MONO % 9.2 % (0.0-5.0); NEUTROPHILS # 5.2 10^3/uL (1.8-7.7); NEUTROPHILS % 58.3 % (36.0-66.0); PLATELET COUNT, AUTOMATED 275 10^3/uL (150-450); RED BLOOD COUNT 4.19 10^6/uL (4.30-6.10); WHITE BLOOD COUNT 8.9 10^3/uL (4.0-10.0)
== END ==
LOC: M LAB 15:34
PROVIDERS: ATTEND Physician Assistant
DX: I25.5 Ischemic cardiomyopathy (principal); T82.7XXA Infection and inflammatory reaction due to other cardiac and vascular devices, implants and grafts, initial encounter; X58.XXXA Exposure to other specified factors, initial encounter

== ENCOUNTER → 2019-02-11 | Outpatient (REF) | payer MEDICARE, MEDICAID ==
[~2019-02-11] MED LIST changes: -BISA10SU3 PR; +ONDA4TAB5; +PANT40TA3; +PRED20TA; -ROSU20TA4 PO; +ROSU20TA5 PO; -ROSU40TA3 PO; +ROSU40TA4 PO; +[UNRECOGNIZED DRUG - CODE] PR
[2019-02-21 00:09] LABS: FATS NEUTRAL Normal (.); FATS TOTAL Normal (.); PANCREATIC ELASTASE STOOL >500 (>200)
== END ==
LOC: M LAB REF 17:03
PROVIDERS: ATTEND Internal Medicine Gastroenterology
DX: K86.1 Other chronic pancreatitis (principal)

== ENCOUNTER → 2019-02-12 | Outpatient (CLI) | payer MEDICARE, MEDICAID | LOC: M LAB 15:59 | PROVIDERS: ATTEND Physician Assistant | DX: T82.7XXA Infection and inflammatory reaction due to other cardiac and vascular devices, implants and grafts, initial encounter (principal); X58.XXXA Exposure to other specified factors, initial encounter; Y92.89 Other specified places as the place of occurrence of the external cause ==

== ENCOUNTER → 2019-02-13 | Outpatient (CLI) | payer MEDICARE, MEDICAID | LOC: M LAB 16:53 | PROVIDERS: ATTEND Physician Assistant | DX: T82.7XXA Infection and inflammatory reaction due to other cardiac and vascular devices, implants and grafts, initial encounter (principal); Y83.1 Surgical operation with implant of artificial internal device as the cause of abnormal reaction of the patient, or of later complication, without mention of misadventure at the time of the procedure ==

== ENCOUNTER 2019-02-15 10:42 | Emergency (ER) | payer MEDICARE, MEDICAID ==
[~2019-02-15] VITALS: Ht 175.3 cm; Wt 61.4 kg
[~2019-02-15 10:42] MED LIST changes: -ONDA4TAB5; -PANT40TA3; -PRED20TA
[2019-02-15] MEDS ORDERED: PANT40TA3 (11:12)
[2019-02-15] MEDS ORDERED: PRED20TA (11:12)
[2019-02-15] MEDS ORDERED: ONDA4TAB5 (11:12)
[2019-02-15 11:37] LABS: BASO # 0.1 10^3/uL (0.0-0.2); BASO % 0.5 % (0.0-1.0); EOS # 0.3 10^3/uL (0.0-0.50); EOS % 1.5 % (0.0-3.0); HEMATOCRIT 38.8 % (42.0-52.0); HEMOGLOBIN 12.9 g/dl (13.5-17.5); LYMPH % 5.4 % (24.0-44.0); MEAN CORPUSCULAR HGB CONC 33.2 g/dl (32.0-36.5); MEAN CORPUSCULAR VOLUME 87.2 fl (80.0-96.0); MONO # 1.9 10^3/uL (0.0-0.8); MONO % 10.5 % (0.0-5.0); NEUTROPHILS # 14.5 10^3/uL (1.8-7.7); NEUTROPHILS % 81.7 % (36.0-66.0); PLATELET COUNT, AUTOMATED 219 10^3/uL (150-450); RED BLOOD COUNT 4.45 10^6/uL (4.30-6.10); WHITE BLOOD COUNT 17.7 10^3/uL (4.0-10.0)
[2019-02-15] MEDS ORDERED: NS 500 ML IV ONE ×2 (12:00→14:30)
[2019-02-15] MEDS ORDERED: HYDROMORPHONE HCL 0.5 MG/ 0.5 ML SYRINGE (J1170 PER 1) IV PRN (12:00)
[2019-02-15 12:02] LABS: ALBUMIN 3.1 GM/DL (3.2-5.2); ALT/SGPT 10 U/L (12-78); BILIRUBIN,DIRECT 0.2 MG/DL (0.0-0.2); BILIRUBIN,TOTAL 0.5 MG/DL (0.2-1.0); CK-MB VALUE MASS < 1.0 NG/ML (<3.6); CPK CREATINE PHOSPHOKINASE 11 U/L (39-308); LIPASE 106 U/L (73-393); MB/CK RELATIVE INDEX 9.09 (< OR =4); TROPONIN I < 0.02 NG/ML (< 0.10)
--- NOTE | 2019-02-15 12:15 | REP ---
PORTABLE CHEST: COMPARISON: 01/23/2019 There is no evidence of acute infiltrate. No pleural effusion is seen. The heart is normal in size. The mediastinal silhouette is unremarkable. The visualized osseous structures are intact. IMPRESSION: No acute pulmonary disease. Electronically Signed by Jude Hamilton MD 02/18/2019 12:59 P
[2019-02-15] MEDS ORDERED: ISOVUE-370 76% 100ML VIAL (Q9967) As Ordered ONE (12:53)
[2019-02-15 12:58] LABS: INR 1.35; PARTIAL THROMBOPLASTIN TIME 35.9 SECONDS (25.0-38.4); PROTHROMBIN TIME 16.4 SECONDS (11.8-14.0)
--- NOTE | 2019-02-15 13:58 | REP ---
CT ANGIOGRAM CHEST: TECHNIQUE: Axial contrast enhanced images from the thoracic inlet to the upper abdomen using 100 mL Isovue 370 intravenous contrast material with multiplanar reformations. There is no CT evidence of pulmonary embolism. There is no thoracic aortic aneurysm or dissection. Scattered atherosclerotic calcifications are seen of the thoracic aorta. There is no evidence of mediastinal, hilar, or chest wall lymphadenopathy. The heart is normal in size. There is no pleural or pericardial effusion. Calcified granuloma is seen in the right upper lobe. There are mild scattered fibroatelectatic changes in both lungs. There are mild degenerative changes of the spine. IMPRESSION: No CT evidence of pulmonary embolism or aortic dissection. Electronically Signed by Jude Hamilton MD 02/18/2019 01:03 P
--- NOTE | 2019-02-15 14:01 | REP ---
CT abdomen and pelvis with IV but without oral contrast: History: Right lower chest pain, right upper quadrant abdomen pain. Comparison CT study January 07, 2019. History of pancreatitis with pseudocyst formation. CT contrast dose: 100 mL of intravenous Isovue 370 is administered. Findings: Preliminary digital scout professional sports radiograph demonstrates an unremarkable bowel gas pattern. The lung bases are intact. The liver is normal in size and homogeneous in texture. The spleen is at the upper range of normal in size measuring 13 cm in greatest dimension. It has a mottled texture due to early postcontrast acquisition timing. No definite splenic mass lesion is seen. No adrenal lesion is observed on either side. The kidneys enhance symmetrically and are morphologically intact. Vascular calcification is seen. Normal caliber aorta. There is a small noncalcified nodular opacity in the dependent portion of the fundus of the gallbladder which may be a gallstone. The previous study showed a percutaneous cholecystostomy tube in the gallbladder. This has been removed in the interval. The gallbladder is mildly prominent in size. There are multiple loculated appearing pseudocysts in the peripancreatic and retrogastric region of the upper abdomen. There are pseudocysts in the upper paracolic gutter as well. These appear larger than on the January 07, 2019 prior study although they are not new. Adjacent to the pancreatic head there is a cystic lesion which measures 3.1 cm in anteroposterior by 4.8 cm in right to left by 5.0 cm craniocaudal. The next largest cystic component is just anterior along the pancreatic tail which measures 3.5 x 4.3 x 3.8 cm. Previously this measured 2.8 x 3.5 x 2.7 cm. No new pseudocyst is appreciated. There is no visible ascites. Small and large intestinal bowel loops are unremarkable. Left lower quadrant colostomy is seen. No evidence of obstruction. Urinary bladder, seminal vesicles, and prostate are unremarkable. Impression: Increase in the size although not the number of the multiple peripancreatic pseudocysts in the upper abdomen in the interval since the prior study. Mildly prominent size gallbladder today with one possible intraluminal gallstone. Electronically Signed by Everett Kent MD 02/15/2019 08:11 P
[2019-02-15] MEDS ORDERED: HYDROMORPHONE HCL 0.5 MG/ 0.5 ML SYRINGE (J1170 PER 1) IV ONE (14:30)
[2019-02-15] MEDS ORDERED: LIDOCAINE 2% 5ML JELLY UROJET TOP ONE (15:00)
[2019-02-15 16:40] VITALS: BP 98/61
--- NOTE | 2019-02-15 20:37 | ECGEPIP ---
[facility] - ED Test Date: 2019-02-15 Pat Name: SERENITY RIVER Department: Room: - Gender: Male Ethologist: : 1970 Requested By: August Palacios Order Number: [id number] Reading MD: August Palacios Measurements Intervals [place] Rate: 80 P: 47 ND: 153 QRS: 6 QRSD: 170 T: 187 QT: 447 QTc: 518 Interpretive Statements SINUS RHYTHM POSSIBLE LEFT ATRIAL ENLARGEMENT LEFT BUNDLE BRANCH BLOCK CW 01/23/19 RATE DECREASED SIMILAR MORPHOLOGY Electronically Signed on 02-15-2019 20:36:42 EDT by August Palacios
--- NOTE | 2019-02-15 21:15 | ED PDOC ---
Post-Departure Follow-Up raymundo francisco faxed formal report of ct abd/p for fu August Morales MD Feb 15, 2019 21:15
== END 2019-02-15 16:41 | disposition home or self-care (01) ==
LOC: M ED 10:42
DX: K86.2 Cyst of pancreas (principal); D72.829 Elevated white blood cell count, unspecified; R10.9 Unspecified abdominal pain; R11.2 Nausea with vomiting, unspecified; I44.7 Left bundle-branch block, unspecified; E11.9 Type 2 diabetes mellitus without complications; I10 Essential (primary) hypertension; J44.9 Chronic obstructive pulmonary disease, unspecified; J45.909 Unspecified asthma, uncomplicated; E78.00 Pure hypercholesterolemia, unspecified; K21.9 Gastro-esophageal reflux disease without esophagitis; N40.0 Benign prostatic hyperplasia without lower urinary tract symptoms; N48.6 Induration penis plastica; F33.9 Major depressive disorder, recurrent, unspecified; F41.9 Anxiety disorder, unspecified; F43.10 Post-traumatic stress disorder, unspecified; M41.9 Scoliosis, unspecified; Z95.0 Presence of cardiac pacemaker; Z95.1 Presence of aortocoronary bypass graft; Z95.5 Presence of coronary angioplasty implant and graft; Z79.899 Other long term (current) drug therapy; Z79.01 Long term (current) use of anticoagulants; F17.210 Nicotine dependence, cigarettes, uncomplicated
CPT/HCPCS: 71045; 71275; 74177; 80047; 80076; 81001; 82550; 82553; 83605; 83690; 84484; 85025; 85610; 85730; 87040; 93005; 93041; 96361; 96374; 96376; 99285; J1170; Q9967

== ENCOUNTER 2019-05-09 18:40 | Inpatient (IN) | payer MEDICARE, MEDICAID ==
[~2019-05-09] VITALS: Ht 172.7 cm; Wt 60.8 kg
[~2019-05-09 18:40] MED LIST changes: +BISA10SU PR; -MORP-38 PO; +MORP-69 PO; +ONDA4TAB5; -OXYB10TA PO; +OXYB10TA2 PO; +PANT40TA3; +PRED20TA; -[UNRECOGNIZED DRUG - CODE] PR
[2019-05-09] MEDS ORDERED: FENT50DI5 (19:14)
[2019-05-09] MEDS ORDERED: NITR0.4S14 (19:14)
[2019-05-09] MEDS ORDERED: TAB-TAB3 (19:14)
[2019-05-09] MEDS ORDERED: NS 500 ML IV ONE (20:15)
[2019-05-09 20:37] LABS: BASO # 0.1 10^3/uL (0.0-0.2); EOS # 0.7 10^3/uL (0.0-0.5); EOS % 6.1 % (0.0-3.0); HEMATOCRIT 28.9 % (42.0-52.0); HEMOGLOBIN 8.9 g/dl (13.5-17.5); LYMPH # 2.3 10^3/uL (1.5-5.0); LYMPH % 19.9 % (24.0-44.0); MEAN CORPUSCULAR HEMOGLOBIN 28.8 pg (27.0-33.0); MEAN CORPUSCULAR HGB CONC 30.8 g/dl (32.0-36.5); MEAN CORPUSCULAR VOLUME 93.5 fl (80.0-96.0); MONO # 1.6 10^3/uL (0.0-0.8); MONO % 13.2 % (0.0-5.0); NEUTROPHILS % 59.5 % (36.0-66.0); PLATELET COUNT, AUTOMATED 499 10^3/uL (150-450); RED BLOOD COUNT 3.09 10^6/uL (4.30-6.10); WHITE BLOOD COUNT 11.7 10^3/uL (4.0-10.0)
--- NOTE | 2019-05-09 20:43 | REPVR ---
PROCEDURE INFORMATION: Exam: CT Head without contrast Exam date and time: 05/09/2019 8:32 PM Clinical history: 48 years old, male; Altered mental status/memory loss TECHNIQUE: Imaging protocol: Computed tomography of the head without contrast. Radiation optimization: All CT scans at this facility use at least one of these dose optimization techniques: automated exposure control; mA and/or kV adjustment per patient size (includes targeted exams where dose is matched to clinical indication); or iterative reconstruction. COMPARISON: CT Head without contrast 12/24/2017 1:50 PM FINDINGS: Brain: The lower plascencia-white differentiation in the left frontal lobe representing acute to subacute infarct. Ventricles: Normal. No ventriculomegaly. Bones/joints: Unremarkable. No acute fracture. Sinuses: Visualized sinuses are unremarkable. No fluid levels. Mastoid air cells: Visualized mastoid air cells are well aerated. Soft tissues: Unremarkable. Other findings: No hemorrhage. IMPRESSION: Acute to subacute infarct in the left frontal lobe. No hemorrhage. Electronically signed by: Arvin Churchill On 05/09/2019 20:42:54 PM
[2019-05-09 21:08] LABS: ALBUMIN 3.1 GM/DL (3.2-5.2); ALT/SGPT 12 U/L (12-78); BILIRUBIN,DIRECT 0.1 MG/DL (0.0-0.2); BILIRUBIN,TOTAL 0.3 MG/DL (0.2-1.0); BLOOD UREA NITROGEN 15 MG/DL (7-18); CALCIUM LEVEL 10.3 MG/DL (8.5-10.1); CARBON DIOXIDE LEVEL 31 MEQ/L (21-32); CHLORIDE LEVEL 103 MEQ/L (98-107); CK-MB VALUE MASS 2.1 NG/ML (<3.6); CPK CREATINE PHOSPHOKINASE 57 U/L (39-308); CREATININE FOR GFR 1.15 MG/DL (0.70-1.30); ETHYL ALCOHOL (ETHANOL) < 0.003 % (0.000-0.010); GLOMERULAR FILTRATION RATE > 60.0 (>56); GLUCOSE, FASTING 118 MG/DL (70-100); MB/CK RELATIVE INDEX 3.68 (< OR =4); POTASSIUM SERUM 4.1 MEQ/L (3.5-5.1); SODIUM LEVEL 138 MEQ/L (136-145); TOTAL PROTEIN 7.4 GM/DL (6.4-8.2); TROPONIN I 0.04 NG/ML (< 0.10)
--- NOTE | 2019-05-09 23:29 | HPEPDOC ---
[facility] Medical History & Physical Date of Admission May 09, 2019 Date of Service: May 09, 2019 Primary Care Physician: Ilana Garner Attending Physician: Dae Tyson MD History and Physical TIME OF SERVICE: 11:40 PM CHIEF COMPLAINT: Confusion HISTORY OF PRESENT ILLNESS: This is a 48-year-old male who was brought to the hospital by his who noted that he's been more confused and drowsy all day, sleeping a lot, and having twitching motions of his body. She also noticed that his feeding tube seems to be coming out. The patient was discharged from [facility] 2 days ago where he was treated for a hemorrhagic pancreatic cyst and splenic infarct. The patient admits to having falls 2 days ago, feeling weaker, dropping objects, and having a headache. At his baseline he walks with a walker but today his has had to help him stand up. He denies having fevers, denies having chills, denies having chest pain, denies having abdominal pain. The patient's commented that his feeding tube won't flush. REVIEW OF SYSTEMS: 12 point review of systems negative except as listed in HPI PAST MEDICAL/ SURGICAL HISTORY: CAD status post CABG and stenting COPD CVA Pulmonary hypertension. FROILAN. Chronic hypertension. Dilated cardiomyopathy with EF of 30%. Chronic migraines. The patient Dyslipidemia Depression Diabetes GERD Unsteady gait Chronic pancreatitis with pseudocysts / IgG4 related disease / Severe protein calorie malnutrition History of C. difficile colitis History of osteomyelitis Status post cholecystectomy tube exchange Status post vasectomy. Status post ICD placement and removal Status post partial sternum resection Status post sigmoid colectomy with end sigmoid colostomy. Status post feeding tube placement. SOCIAL HISTORY: Quit smoking Does not drink alcohol FAMILY HISTORY: Father secondary to suicide ALLERGIES: Please see below. HOME MEDICATIONS: Please see below. PHYSICAL EXAMINATION: VITAL SIGNS: Please see below. GENERAL APPEARANCE: Slim build, appears chronically ill, not in apparent distress HEENT: Normocephalic, atraumatic, mucous membranes moist and pink CARDIOVASCULAR: . Post sternotomy scar Regular rate and rhythm LUNGS: Clear to auscultation bilaterally on room air ABDOMEN: Has post laparoscopy scar at the mid abdomen/has a colostomy at the right lower abdomen, and a drain draining hemorrhagic fluid from the left flank MUSCULOSKELETAL: . Range of motion intact in all 4 extremities. Strength 5 out of 5 NEUROLOGICAL: Cranial nerves II 12 are grossly intact. Speech is not dysarthric. Stroke was most questions us: He appears to be having myoclonic episodes during exam PSYCHIATRIC: Alert and oriented, able to understand and follow most commands after frequent repetition LABORATORY DATA: See below. IMAGING: KUB " IMPRESSION: 1. Mild/moderate air distention of the stomach. 2. Pigtail dr alexis catheters as described. 3. Percutaneous feeding tube position in the anterior aspect of likely air distended stomach although confirmation of gastric positioning cannot be made on the basis of images submitted. 4. Linear atelectasis or scarring left infrahilar lung. 5. Parenchymal opacity of right lower lung which could indicate small infiltrate or atelectasis. 6. Accentuation of hilar airways which may indicate an element of bronchitis. " CT of the head " IMPRESSION: Acute to subacute infarct in the left frontal lobe. No hemorrhage." KUB there. The air-fluid levels but the final read is pending MICROBIOLOGY: Please see below. ASSESSMENT: Mr. Shipman is a 48-year-old male with a past medical history of CAD, COPD, chronic pancreatitis, CVA. FROILAN. Chronic hypertension, chronic systolic congestive heart failure, migraines, depression, diabetes GERD and depression will be admitted for evaluation of a left frontal stroke PLAN: 1. Acute to subacute left frontal infarct. He has a remote history of CVA in the past The patient was discharged from hospital 2 days ago is not clear if he had this stroke during that admission or if this occurred within the last few days Plan: admit to PCU / telemetry /fall precautions / f/u lipid panel for ACVD risk score & A1C, TSH, MRI brain, carotid US, f/u Echo / PT/OT consult /neurology consult / Permissive hypertension for 24 hours with target blood pressure less than 220/120/labetalol 5 mg IV when necessary for blood pressure greater than 220/120 / Post stroke target glycemic range between 140 and 180 2. Confusion Possibly due to subacute stroke vs seizures vs other cause to be determined BMP, UA and chest x-ray unrevealing Plan: Frequent neuro checks 3. Myoclonic episodes. Plan: Follow-up EEG/Ativan PRN seizures 4. Leukocytosis. UA and chest x-ray are unremarkable Plan: Follow-up flu panel 5.Clogged Feeding Tube KUB could not confirm feeding tube's position The patient's says the tube won't flush Plan: hold tube feeds pending CT of abdomen & pelvis/ pending results IR consult may be warranted to replace the tube 6. Splenic infarct. Drain is still in place Plan: Obtain records from [place]'s / f/u CT abd 7. Normocytic anemia. Likely multifactorial nature TSH is within normal limits Hg has dropped from baseline Plan: Follow-up CBC, iron studies, B12, folate 8. CAD s/p CABG Plan: c/w home meds 9.Stable COPD Plan: c/w home meds 10. FROILAN Plan: Home CPAP machine 11. Chronic HTN Plan: c/w home meds in 24 hours after permissive hypertension 12. Dilated cardiomyopathy with an LVEF 30% Plan: resume home meds except antihypertensives 13. Complicated migraine Plan: c/w home meds 14. BPH Plan: c/w home meds 15. DLP Plan: c/w home meds 16. Depression Plan: c/w home meds 17. DM A1c 7.5 in February Plan: diabetic diet / f/u accuchecks / hypoglycemia protocol / sliding scale insulin 18. GERD Plan: c/w home meds 18. Severe protein calorie malnutrition. BMI 19.0 Plan: follow-up prealbumin / pe manager consult to up titrate tube feeds DVT prophylaxis with apixaban Disposition pending clinical course Vital Signs Vital Signs Date Time Temp Pulse Resp B/P (MAP) Pulse Ox O2 Delivery O2 Flow Rate FiO2 05/09/19 23:00 88 18 127/61 (83) 95 Room Air 05/09/19 18:40 98.5 Laboratory Data Labs 24H Laboratory Tests 2 05/09/19 20:11: Immature Granulocyte % (Auto) 0.3, White Blood Count 11.7H, Red Blood Count 3.09L, Hemoglobin 8.9L, Hematocrit 28.9L, Mean Corpuscular Volume 93.5, Mean Corpuscular Hemoglobin 28.8, Mean Corpuscular Hemoglobin Concent 30.8L, Red Cell Distribution Width 18.2H, Platelet Count 499H, Neutrophils (%) (Auto) 59.5, Lymphocytes (%) (Auto) 19.9L, Monocytes (%) (Auto) 13.2H, Eosinophils (%) (Auto) 6.1H, Basophils (%) (Auto) 1.0, Neutrophils # (Auto) 7.0, Lymphocytes # (Auto) 2.3, Monocytes # (Auto) 1.6H, Eosinophils # (Auto) 0.7H, Basophils # (Auto) 0.1, Nucleated Red Blood Cells % (auto) 0.0, Urine Color YELLOW, Urine Appearance CLEAR, Urine pH 6.0, Urine Specific [place] 1.009, Urine Protein NEGATIVE, Urine Glucose (UA) NEGATIVE, Urine Ketones NEGATIVE, Urine Blood NEGATIVE, Urine Nitrite NEGATIVE, Urine Bilirubin NEGATIVE, Urine Urobilinogen 0.2, Urine Leukocyte Esterase NEGATIVE, Urine WBC (Auto) 0, Urine RBC (Auto) 2, Urine Hyaline Casts (Auto) 0, Urine Bacteria (Auto) NEGATIVE, Urine Squamous Epithelial Cells 0, Urine Sperm (Auto) , Anion Gap 4L, Glomerular Filtration Rate > 60.0, Lactic Acid Level 1.0, Calcium Level 10.3H, Aspartate Amino Transf (AST/SGOT) 15, Alanine Aminotransferase (ALT/SGPT) 12, Alkaline Phosphatase 133H, Total Bilirubin 0.3, Direct Bilirubin 0.1, Ammonia 17, Total Creatine Kinase 57, Creatine Kinase MB 2.1, Creatine Kinase MB Relative Index 3.68, Troponin I 0.04, Total Protein 7.4, Albumin 3.1L, Albumin/Globulin Ratio 0.72L, Thyroid Stimulating Hormone (TSH) 1.200, Ethyl Alcohol Level < 0.003 05/09/19 20:15: Bedside Glucose (Misc Panel) 129H CBC/BMP Laboratory Tests 05/09/19 20:11 Red Blood Count 3.09 L, Mean Corpuscular Volume 93.5, Mean Corpuscular Hemoglobin 28.8, Mean Corpuscular Hemoglobin Concent 30.8 L, Red Cell Distribution Width 18.2 H, Neutrophils (%) (Auto) 59.5, Lymphocytes (%) (Auto) 19.9 L, Monocytes (%) (Auto) 13.2 H, Eosinophils (%) (Auto) 6.1 H, Basophils (%) (Auto) 1.0, Neutrophils # (Auto) 7.0, Lymphocytes # (Auto) 2.3, Monocytes # (Auto) 1.6 H, Eosinophils # (Auto) 0.7 H, Basophils # (Auto) 0.1 Microbiology Microbiology 05/09/19 Blood Culture, Received Pending 05/09/19 Blood Culture, Received Pending Home Medications Scheduled Apixaban (Eliquis) 5 Mg Tablet, 5 MG PO BID Carvedilol (Carvedilol) 12.5 Mg Tablet, 12.5 MG PO BID Clopidogrel Bisulfate (Clopidogrel) 75 Mg Tablet, 75 MG PO QHS Ferrous Gluconate (Ferrous Gluconate) 324 Mg Tablet, 324 MG PO ASDIRECTED TAKES 1 TABLET TWICE A DAY (MORNING AND SUPPER) EVERY OTHER DAY Fluoxetine Hcl (Fluoxetine HCl) 40 Mg Capsule, 40 MG PO DAILY Gabapentin (Gabapentin) 400 Mg Capsule, 400 MG PO TID MORNING, LUNCH AND DINNER Insulin Human Lispro (Humalog) 100 Unit/1 Ml Vial, 1 DOSE SC ACHS Magnesium Oxide (Magnesium Oxide) 400 Mg Tablet, 400 MG PO DAILY Multivitamin (Tab-A-Claudia) 1 Each Tablet, 1 TAB PO DAILY Pantoprazole Sodium (Pantoprazole Sodium) 40 Mg Tablet.dr, 40 MG PO DAILY Rosuvastatin Calcium (Rosuvastatin Calcium) 20 Mg Tablet, 20 MG PO QHS [[place] 1.5 C/Ml] , 1 DOSE FT QPM 720 ML BAG RUNNING AT 60MLS/HR FOR 12 HOURS FROM [id number] fentaNYL (fentaNYL) 50 Mcg Patch.td72, 50 MCG TD Q3RD Scheduled PRN Albuterol Sulf (Albuterol Sulfate) 2.5 Mg/3 Ml Vial.neb, 2.5 MG INH Q6H PRN for SHORTNESS OF BREATH Albuterol Sulfate (Proair Hfa) 8.5 Gm Hfa.aer.ad, 2 PUFF INH Q4H PRN for SHORTNESS OF BREATH Glucagon,Human Recombinant (Glucagon Emergency Kit) 1 Mg Vial, 1 MG IM ASDIRECTED PRN for LOW BLOOD SUGAR Hydroxyzine HCl (Hydroxyzine HCl) 10 Mg Tablet, 10 MG PO TID PRN for ANXIETY Ipratropium/Albuterol Sulfate (Iprat-Albut 0.5-3(2.5) mg/3 ml) 3 Ml Ampul.neb, 3 ML NEB Q4H PRN for SHORTNESS OF BREATH Nitroglycerin (Nitrostat) 0.4 Mg Tab.subl, 0.4 MG SL NITRO PRN for CHEST PAIN Ondansetron HCl (Ondansetron HCl) 4 Mg Tablet, 4 MG PO Q8H PRN for NAUSEA Oxycodone HCl (Oxycodone HCl) 5 Mg Tablet, 5 MG PO Q6HP PRN for PAIN Sennosides (Senna) 8.6 Mg Tablet, 8.6 MG PO DAILY PRN for CONSTIPATION Allergies Coded Allergies: No Known Drug Allergies (Verified Allergy, Unknown, 01/06/19) A-FIB/CHADSVASC A-FIB History Current/History of A-Fib/PAF?: No Current PO Anticoag Therapy: No MARZENA DAMON MD May 09, 2019 23:29
[2019-05-09] MEDS ORDERED: ASPIRIN 325 MG TAB PO ONE (23:30)
[2019-05-09] MEDS ORDERED: LABETALOL HCL 100 MG/20 ML VIAL IV PRN (23:30)
[2019-05-09] MEDS ORDERED: NITR4TASL SL (23:53)
[2019-05-09] MEDS ORDERED: INSUHUMDS SC (23:53)
[2019-05-09] MEDS ORDERED: TAB-TAB PO (23:53)
[2019-05-09] MEDS ORDERED: FENT50DI5 TD (23:53)
[2019-05-09] MEDS ORDERED: ALBU83IN INH (23:53)
[2019-05-09] MEDS ORDERED: MAGN400T PO (23:53)
[2019-05-09] MEDS ORDERED: ONDA4TAB5 PO (23:53)
[2019-05-09] MEDS ORDERED: PANT40TA3 PO (23:53)
[2019-05-09] MEDS ORDERED: ELIQ5TAB PO (23:53)
[2019-05-09] MEDS ORDERED: SENN1TAB8 PO (23:56)
[2019-05-09] MEDS ORDERED: [UNRECOGNIZED DRUG - OTHER] FT (23:56)
[2019-05-09] MEDS ORDERED: GLUC1KIT IM (23:56)
[2019-05-10] VITALS (9 sets, daily range): BP systolic 108–133; BP diastolic 51–68
[2019-05-10] MEDS: NS 1,000 ML IV SCH (02:29)
[2019-05-10] MEDS ORDERED: LORazepam 2 MG/ML VIAL (J2060) IV PRN (02:30)
[2019-05-10] MEDS ORDERED: ALBUTEROL 90 MCG/ACT 8GM HFA INHALER INH PRN (02:30)
[2019-05-10] MEDS ORDERED: oxyCODONE 5MG TAB PO PRN (02:30)
[2019-05-10] MEDS ORDERED: IPRATROPIUM 0.5MG/ALBUTEROL 2.5MG INH SOL UD 3ML (DUONEB)(J7620) NEB PRN (02:30)
[2019-05-10] MEDS ORDERED: GLUCAGON FOR INJ 1 MG VIAL (J1610) SC PRN ×2 (02:30→04:30)
[2019-05-10] MEDS ORDERED: SENNA 8.6 MG TAB (SENOKOT) PO PRN (02:30)
[2019-05-10] MEDS ORDERED: DEXTROSE 50% 50 ML SYRINGE IV PRN ×2 (02:30→04:30)
[2019-05-10] MEDS ORDERED: GLUCOSE 4 GM CHEW TABLET PO PRN ×2 (02:30→04:30)
[2019-05-10 03:15] LABS: PREALBUMIN 18.2 MG/DL (20.0-40.0)
[2019-05-10 04:54] LABS: HEMOGLOBIN 7.4 g/dl (13.5-17.5); MEAN CORPUSCULAR HEMOGLOBIN 28.4 pg (27.0-33.0); MEAN CORPUSCULAR HGB CONC 30.8 g/dl (32.0-36.5); PLATELET COUNT, AUTOMATED 450 10^3/uL (150-450); RED BLOOD COUNT 2.61 10^6/uL (4.30-6.10); WHITE BLOOD COUNT 10.1 10^3/uL (4.0-10.0)
[2019-05-10 05:07] LABS: INR 1.51
[2019-05-10 05:08] LABS: PARTIAL THROMBOPLASTIN TIME 39.6 SECONDS (25.0-38.4)
--- NOTE | 2019-05-10 05:09 | REPVR ---
PROCEDURE INFORMATION: Exam: XR Complete Acute Abdomen Series Exam date and time: 05/09/2019 8:02 PM Clinical history: 48 years old, male; Device placement; Non-vascular device; Other: Feeding tube won't flush; Additional info: AMS, feeding tube won't flush TECHNIQUE: Imaging protocol: XR complete acute abdomen series, including 2 or more views of the abdomen and a single view chest. COMPARISON: CR Chest, 1 view 02/15/2019 11:47 AM FINDINGS: Tubes, catheters and devices: A pigtail catheter overlies the central abdomen anteriorly. An additional pigtail catheter overlies the junction of the lower left chest and upper abdomen. A percutaneous feeding tube balloon resides within the abdomen anteriorly seen on the lateral view. Feeding tube is not included on day supine images. Feeding tube balloon projects at the lumen of the air distended stomach although confirmation of definite gastric positioning could not be made on the basis of images submitted. Lungs: Left infrahilar linear atelectasis or scarring. Minor parenchymal opacity a right lower lung. Pleural space: Normal. No pneumothorax. Heart/Mediastinum: Accentuated hilar bronchial margins. Gastrointestinal tract: Air distention of the stomach. Moderate colonic fecal expansion in the right abdomen. Air fluid levels likely within the stomach. Intraperitoneal space: Multiple surgical clips within the upper abdomen. Bones/joints: Normal. No acute fracture. Soft tissues: Numerous surgical clips overlie the mid chest. IMPRESSION: 1. Mild/moderate air distention of the stomach. 2. Pigtail drainage catheters as described. 3. Percutaneous feeding tube position in the anterior aspect of likely air distended stomach although confirmation of gastric positioning cannot be made on the basis of images submitted. 4. Linear atelectasis or scarring left infrahilar lung. 5. Parenchymal opacity of right lower lung which could indicate small infiltrate or atelectasis. 6. Accentuation of hilar airways which may indicate an element of bronchitis. Electronically signed by: Miriam Pierre On 05/10/2019 05:09:15 AM
[2019-05-10 05:15] LABS: BLOOD UREA NITROGEN 14 MG/DL (7-18); CALCIUM LEVEL 9.7 MG/DL (8.5-10.1); CARBON DIOXIDE LEVEL 25 MEQ/L (21-32); CHLORIDE LEVEL 107 MEQ/L (98-107); CHOLESTEROL LEVEL 109 MG/DL (<200); CHOLESTEROL RISK RATIO 3.406 (<5); CREATININE FOR GFR 1.01 MG/DL (0.70-1.30); FERRITIN 351 NG/ML (26-388); GLOMERULAR FILTRATION RATE > 60.0 (>56); GLUCOSE, FASTING 111 MG/DL (70-100); HDL CHOLESTEROL 32 MG/DL (>40); IRON (FE) 33 UG/DL (65-175); LDL CHOLESTEROL 36 MG/DL (<100); NON-HDL-C 77 MG/DL; PERCENT SATURATION 14.1 % (19.7-50.0); POTASSIUM SERUM 4.1 MEQ/L (3.5-5.1); SODIUM LEVEL 141 MEQ/L (136-145); TOTAL IRON BINDING CAPACITY 234 UG/DL (250-450); TRIGLYCERIDES LEVEL 205 MG/DL (<150)
[2019-05-10 05:22] LABS: HEMOGLOBIN A1c 5.6 %
[2019-05-10] MEDS: HumaLOG INSULIN (NovoLOG) PER UNIT SC SCH ×3 (06:00→18:00)
[2019-05-10] MEDS: GASTROGRAFIN SOLUTION 30ML PO SCH ×2 (06:00→06:40)
[2019-05-10] MEDS ORDERED: HumaLOG INSULIN (NovoLOG) PER UNIT SC SCH ×2 (07:30→21:00)
--- NOTE | 2019-05-10 07:30 | ECGEPIP ---
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
[2019-05-10] MEDS ORDERED: ISOVUE-370 76% 100ML VIAL (Q9967) As Ordered ONE (07:34)
[2019-05-10] MEDS: MAGNESIUM OXIDE 400 MG TAB (MAG-OX) PO SCH (09:12)
[2019-05-10] MEDS: FLUoxetine 20 MG CAP PO SCH (09:12)
[2019-05-10] MEDS: GABAPENTIN 400 MG CAP PO SCH ×3 (09:12→20:30)
[2019-05-10] MEDS: APIXABAN 5 MG TAB (ELIQUIS) PO SCH ×2 (09:12→20:30)
[2019-05-10] MEDS: PANTOPRAZOLE 40MG TAB (PROTONIX) PO SCH (09:12)
--- NOTE | 2019-05-10 09:57 | REP ---
CT ABDOMEN AND PELVIS WITH IV AND ORAL CONTRAST: HISTORY: Suspect a displaced feeding tube. Followup of splenic infarct. Comparison CT study February 15, 2019. CT CONTRAST DOSE: 100 mL of intravenous Isovue 370. CT FINDINGS: Digital preliminary fur finisher tailor radiograph demonstrates a feeding gastrostomy tube overlying the antrum. There is a drainage catheter in the left upper quadrant and another in the periumbilical region. The bowel gas pattern is normal. The lung bases show plate-like atelectasis bilaterally in the lower lobes on axial CT images. There is a very small quantity of bilateral pleural fluid, left a little larger than right. There is coronary artery vascular calcification. The liver is normal in size homogeneous in texture. There are multiple parenchymal infarcts in the spleen with low density areas. There is a drainage catheter looped within an intrasplenic fluid and air cavity. This cavity is consistent with an intrasplenic abscess and measures 7.9 cm anteroposterior x 5.5 cm medial to lateral x 3.7 cm cranial to caudal. This should probably be aspirated and/or irrigated. There is a small quantity of perisplenic fluid superior and medial aspect of the spleen which may well communicate with the drainage cavity. The patient's feeding gastrostomy tube appears to be in good position in the anterior wall of the gastric body. There is no evidence of free intraperitoneal air or other evidence to suggest catheter dislodgement. Pancreatic duct is mildly prominent. No intrapancreatic pseudocyst or fluid collection is appreciated. The gallbladder is unremarkable. There is an area of focal scarring in the upper pole right kidney which is new from February 15, 2019. This may reflect an interval renal infarction versus post inflammatory scarring. Vascular calcification is noted. No other upper abdominal fluid collection is seen. In the periumbilical region, there is a percutaneous pigtail catheter and a small air containing cavity along the anterior surface of the peritoneum. No fluid is visible within this cavity. No other abdominal or pelvic fluid collection is appreciated. Small and large intestinal bowel loops are unremarkable. A normal appendix is seen in the right lower quadrant. IMPRESSION: 1. The patient's feeding gastrostomy tube appears to be in good position by CT. 2. There are multiple splenic infarcts and changes consistent with renal cortical infarct in the upper pole right kidney are seen. 3. There is evidence of an intrasplenic abscess with a percutaneously placed drainage catheter within it. There is significant fluid surrounding the drainage catheter and this catheter should be aspirated and/or irrigated. The catheter appears to be in good position. 4. The pancreas is much improved from its appearance from February 15, 2019. 5. There is a right lower quadrant colostomy and a mid abdominal peritoneal drainage catheter is seen anteriorly within a small air containing cavity. Electronically Signed by Everett Kent MD 05/10/2019 10:50 A
[2019-05-10 10:02] LABS: FOLATE 21.2 NG/ML (>5.4); VITAMIN B12 LEVEL 451 PG/ML (247-911)
--- NOTE | 2019-05-10 10:29 | IPNPDOC ---
Subjective Date Seen The patient was seen on 05/10/19. Subjective Chief Complaint/HPI Pt this morning denies pain, completed ST eval this morning, recommending soft mechanical. GF at bedside, reports pt more awake and alert today. She reports that his symptoms changed about 2 h after she changed his fentanyl patch which the dose had been increased from d/c from [facility]. She is concerned that this is the cause of his change in mentation. General: Reports: Fatigue Constitutional: Denies: Chills, Fever ENT: Denies: Head Aches Pulmonary: Denies: Dyspnea, Cough Cardiovascular: Denies: Chest Pain Gastrointestinal: Denies: Nausea, Vomiting, Abdominal Pain Neurological: Reports: Weakness Psych: Reports: Mood Normal Objective Physical Examination General Exam: Positive: No Acute Distress; Negative: Alert (drowsy) ENT Exam: Positive: Mucous membr. moist/pink Chest Exam: Positive: Clear to auscultation, Normal air movement Heart Exam: Positive: Rate Normal, Normal S1, Normal S2 Abdomen Exam: Positive: Normal bowel sounds, Soft; Negative: Tenderness (+ colostomy, drain coming from old ostomy site. + PIERRE drain, + PEG, wounds appear clean and dry.) Neuro Exam: Negative: Normal Speech (+ expressive dysphasia) Psych Exam: Negative: Mental status NL, Mood NL Assessment /Plan Problems (1) CVA (cerebral vascular accident) Status: Acute Response to Treatment: Stable Discussed With: Nurse, Patient, Family with Pt Consent Problem Specific Plan: Consult Specialist, Monitor Clinically Problem Text: Likely subacute as pt with R hemiparesis, expressive aphasia, R facial droop documented 03/27 at [facility] while inpt. Pt with Neuro consult placed on admission. Await input from Neuro. EEG ordered. Given GF concerns with symptoms becoming more pronounced just a couple hours after his Fentanyl patch was changed, this has been DC'd, reassess his pain and dosage later today once effects of medication have diminished. (2) Anemia Status: Acute Response to Treatment: Worse Discussed With: Nurse, Patient, Family with Pt Consent Problem Specific Plan: Repeat Labs Problem Text: Hgb has dropped from 8.9 to 7.4 since admission/overnight, will order 1 unit pRBCs for transfusion. (3) Dilated cardiomyopathy Status: Chronic Response to Treatment: Stable Problem Specific Plan: Monitor Clinically Problem Text: Asymptomatic, wears lifevest as an outpt. (4) General weakness Status: Acute (5) CAD (coronary artery disease) Status: Chronic Response to Treatment: Stable Problem Specific Plan: Monitor Clinically Problem Text: Stable. Cont with Labetolol, Eliquis, Plavix, Crestor. (6) Splenic abscess Status: Acute Response to Treatment: Stable Discussed With: Nurse, Patient Problem Specific Plan: Monitor Clinically, Repeat Labs Problem Text: Pt with percutaneous drain placed within abscess, this was placed at [facility]. Plan/VTE VTE Prophylaxis Ordered?: Yes VS, I&O, 24H, Fishbone Vital Signs/I&O Vital Signs Date Time Temp Pulse Resp B/P (MAP) Pulse Ox O2 Delivery O2 Flow Rate FiO2 05/10/19 08:00 98.7 73 12 123/68 (86) 98 05/10/19 01:30 Room Air I&O- Last 24 Hours up to 6 AM 05/10/19 06:00 Intake Total 990 ml Output Total 130 ml Balance 860 ml Laboratory Data 24H LABS Laboratory Tests 2 05/09/19 20:11: Immature Granulocyte % (Auto) 0.3, White Blood Count 11.7H, Red Blood Count 3.09L, Hemoglobin 8.9L, Hematocrit 28.9L, Mean Corpuscular Volume 93.5, Mean Corpuscular Hemoglobin 28.8, Mean Corpuscular Hemoglobin Concent 30.8L, Red Cell Distribution Width 18.2H, Platelet Count 499H, Neutrophils (%) (Auto) 59.5, Lymphocytes (%) (Auto) 19.9L, Monocytes (%) (Auto) 13.2H, Eosinophils (%) (Auto) 6.1H, Basophils (%) (Auto) 1.0, Neutrophils # (Auto) 7.0, Lymphocytes # (Auto) 2.3, Monocytes # (Auto) 1.6H, Eosinophils # (Auto) 0.7H, Basophils # (Auto) 0.1, Nucleated Red Blood Cells % (auto) 0.0, Urine Color YELLOW, Urine Appearance CLEAR, Urine pH 6.0, Urine Specific [place] 1.009, Urine Protein NEGATIVE, Urine Glucose (UA) NEGATIVE, Urine Ketones NEGATIVE, Urine Blood NEGATIVE, Urine Nitrite NEGATIVE, Urine Bilirubin NEGATIVE, Urine Urobilinogen 0.2, Urine Leukocyte Esterase NEGATIVE, Urine WBC (Auto) 0, Urine RBC (Auto) 2, Urine Hyaline Casts (Auto) 0, Urine Bacteria (Auto) NEGATIVE, Urine Squamous Epithelial Cells 0, Urine Sperm (Auto) , Anion Gap 4L, Glomerular Filtration Rate > 60.0, Lactic Acid Level 1.0, Calcium Level 10.3H, Aspartate Amino Transf (AST/SGOT) 15, Alanine Aminotransferase (ALT/SGPT) 12, Alkaline Phosphatase 133H, Total Bilirubin 0.3, Direct Bilirubin 0.1, Ammonia 17, Total Creatine Kinase 57, Creatine Kinase MB 2.1, Creatine Kinase MB Relative Index 3.68, Troponin I 0.04, Total Protein 7.4, Albumin 3.1L, Albumin/Globulin Ratio 0.72L, Prealbumin 18.2L, Thyroid Stimulating Hormone (TSH) 1.200, Ethyl Alcohol Level < 0.003 05/09/19 20:15: Bedside Glucose (Misc Panel) 129H 05/10/19 04:38: Nucleated Red Blood Cells % (auto) 0.0, Anion Gap 9, Glomerular Filtration Rate > 60.0, Calcium Level 9.7, Estimated Mean Plasma Glucose 114H, Hemoglobin A1c 5.6, Iron Level 33L, Total Iron Binding Capacity 234L, Transferrin % Saturation 14.1L, Ferritin 351, Triglycerides Level 205H, LDL Cholesterol 36, Total Cholesterol 109, Non-HDL Cholesterol (LDL + VLDL) 77, Total HDL Cholesterol 32L, Cholesterol/HDL Ratio 3.406, Vitamin B12 Level 451, Folate 21.2 05/10/19 04:41: Prothrombin Time 18.0H, Prothromb Time International Ratio 1.51, Activated Partial Thromboplast Time 39.6H CBC/BMP Laboratory Tests 05/09/19 20:11 Red Blood Count 3.09 L, Mean Corpuscular Volume 93.5, Mean Corpuscular Hemoglobin 28.8, Mean Corpuscular Hemoglobin Concent 30.8 L, Red Cell Distr ibution Width 18.2 H, Neutrophils (%) (Auto) 59.5, Lymphocytes (%) (Auto) 19.9 L, Monocytes (%) (Auto) 13.2 H, Eosinophils (%) (Auto) 6.1 H, Basophils (%) (Auto) 1.0, Neutrophils # (Auto) 7.0, Lymphocytes # (Auto) 2.3, Monocytes # (Auto) 1.6 H, Eosinophils # (Auto) 0.7 H, Basophils # (Auto) 0.1 05/10/19 04:38 Red Blood Count 2.61 L, Mean Corpuscular Volume 92.0, Mean Corpuscular Hemoglobin 28.4, Mean Corpuscular Hemoglobin Concent 30.8 L, Red Cell Distribution Width 17.9 H Microbiology Microbiology 05/09/19 Blood Culture, Received Pending 05/09/19 Blood Culture, Received Pending DESEAN LUQUE PA-C May 10, 2019 10:29
[2019-05-10] MEDS: ONDANSETRON 4 MG TAB (S0181) PO PRN (16:25)
--- NOTE | 2019-05-10 17:32 | REP ---
Bilateral carotid artery duplex ultrasound: Peak flow velocity analysis: RIGHT LEFT ICA Peak flow velocity cm/sec 118 144 ICA Diastolic flow velocity cm/sec 20.6 28.7 ICA/CCA Ratio 0.91 1.15 ECA Peak flow velocity cm/sec 143 141 CCA Peak flow velocity cm/sec 129 125 The there is diffuse shallow atheromatous plaque bilaterally. The peak flow velocities are normal. The findings indicate there is less than 50% luminal narrowing bilaterally. There is no significant stenosis on the right or the left. There is antegrade flow in the vertebral arteries bilaterally. Electronically Signed by Jude Castañeda MD 05/10/2019 05:24 P
--- NOTE | 2019-05-10 18:20 | REP ---
MRI brain without contrast: History: CVA. No comparison brain imaging Comparison CT study of the brain is from May 09, 2019. Technique: Axial and sagittal imaging planes are utilized for T1 and T2-weighted scans. Sequences include spin-echo, fast spin echo, FLAIR, and diffusion weighted sequences. CT findings: No bony calvarial defect is seen. Craniocervical junction and upper cervical cord are intact. Tortuous but normal caliber distal vertebral arteries and basilar artery appear to be posteriorly displacing the spinal medullary junction. There is no evidence of compression however as the foramen magnum is fairly wide. No tonsillar ectopia seen. There is evidence of a subacute infarction in the left parietal lobe and left posterior temporal lobe with increased T2 and low T1 signal intensity involving the plascencia matter and subcortical white matter in this distribution. This corresponds to the CT findings except a tight feel it is parietal lobe and not frontal lobe which is involved as was reported on CT. There is some linear gyral hemosiderin staining on gradient echo and T2-weighted scans in the parietal lower lobe infarct consistent with low-level petechial hemorrhage. Diffusion weighted scans show some hyperintensity but there is no decreased signal on ADC to suggest restricted diffusion. There is a tiny old lacunar infarct in the body of the caudate nucleus on the left. No extra-axial fluid collection or midline shift is seen. Study is otherwise unremarkable. Impression: Subacute cortical infarct involving the left posterior temporal and left parietal lobes. This corresponds with the CT findings. However, I feel it is the parietal lobe not the frontal lobe which is involved. There is some hemosiderin staining in the involved gyri in the left parietal lobe on gradient echo images suggesting some degree of petechial hemorrhagic change. Electronically Signed by Everett Kent MD 05/13/2019 11:23 A
[2019-05-10] MEDS: ROSUVASTATIN 10 MG TAB (CRESTOR) PO SCH (20:30)
[2019-05-10] MEDS: CLOPIDOGREL 75 MG TAB PO SCH (20:30)
--- NOTE | 2019-05-10 21:28 | ECHO ---
DATE OF PROCEDURE: 05/10/2019 REFERRING PHYSICIAN: Ellie Oleary MD INDICATION: Cerebrovascular accident. HEIGHT: 173 cm WEIGHT: 57 kg DIMENSIONS: IVS: 1.1 LV: 6.2 LVPW: 1.1 LA: 4.5 Aorta: 3.2 RV: 2.3 IVC: 2.3 Mitral E wave velocity: 87, A wave: 69 E prime septal: 3.5 E prime lateral: 10.2 FINDINGS The study is of acceptable technical quality. The patient is in sinus rhythm with ventricular rate approximately 90-100 beats per minute and wide QRS complex. Left ventricle is moderately dilated and severely globally hypokinetic. Septum appears dyskinetic. Overall left ventricular ejection fraction (LVEF) estimated around 20%. Right ventricle does not appear grossly enlarged. Left atrium is at least moderately enlarged. Right atrium was poorly seen but grossly appears normal. Aortic, mitral and tricuspid valves appear normal. Pulmonic valve was poorly visualized but also appears grossly normal. No pericardial effusion is noted. Inferior vena cava is dilated and only partially collapses with respiration indicative of elevated central venous pressure. Aortic root and aortic arch appear normal. Abdominal aorta was not well seen. Doppler interrogation of aortic valve reveals no stenosis or insufficiency. There is probably trace mitral insufficiency and only trace tricuspid insufficiency. Calculated pulmonary artery pressure is at the minimum in high 30s corresponding to mild pulmonary hypertension, but I suspect that the true pulmonary artery pressure is actually higher. Pulmonic valve exhibits trace insufficiency. Mitral inflow pattern and tissue Doppler imaging of mitral annulus reveals pseudo normal filling pattern indicative of grade 2 diastolic dysfunction. CONCLUSION 1. Study is of acceptable technical quality. 2. Dilated left ventricle with global hypokinesis, septal dyskinesis and estimated EF around 20%. Grade 2 diastolic dysfunction. 3. Only trace mitral and tricuspid insufficiency. 4. Elevated central venous pressure. 5. At least mild and probably more severe pulmonary hypertension. COMMENT Subacute bacterial endocarditis (SBE) prophylaxis is not recommended. Even though no obvious thrombus was seen, presence of severe LV systolic dysfunction certainly increases the risk of cardioembolic stroke. MTDD
[2019-05-11] VITALS: BP 124/57
[2019-05-11] MEDS: NS 1,000 ML IV SCH (02:41)
[2019-05-11] MEDS: HumaLOG INSULIN (NovoLOG) PER UNIT SC SCH ×4 (02:41→18:00)
[2019-05-11 04:00] VITALS: BP 116/55
[2019-05-11 05:24] LABS: BASO # 0.1 10^3/uL (0.0-0.2); BASO % 1.4 % (0.0-1.0); EOS # 0.6 10^3/uL (0.0-0.5); EOS % 6.1 % (0.0-3.0); HEMATOCRIT 28.3 % (42.0-52.0); HEMOGLOBIN 8.8 g/dl (13.5-17.5); LYMPH # 2.6 10^3/uL (1.5-5.0); LYMPH % 26.8 % (24.0-44.0); MEAN CORPUSCULAR HEMOGLOBIN 28.6 pg (27.0-33.0); MEAN CORPUSCULAR HGB CONC 31.1 g/dl (32.0-36.5); MEAN CORPUSCULAR VOLUME 91.9 fl (80.0-96.0); MONO # 1.6 10^3/uL (0.0-0.8); MONO % 16.3 % (0.0-5.0); NEUTROPHILS # 4.7 10^3/uL (1.5-8.5); NEUTROPHILS % 49.2 % (36.0-66.0); PLATELET COUNT, AUTOMATED 448 10^3/uL (150-450); RED BLOOD COUNT 3.08 10^6/uL (4.30-6.10); WHITE BLOOD COUNT 9.6 10^3/uL (4.0-10.0)
[2019-05-11 05:47] LABS: ALBUMIN 2.6 GM/DL (3.2-5.2); ALT/SGPT 12 U/L (12-78); BILIRUBIN,TOTAL 0.3 MG/DL (0.2-1.0); BLOOD UREA NITROGEN 10 MG/DL (7-18); CARBON DIOXIDE LEVEL 28 MEQ/L (21-32); CHLORIDE LEVEL 108 MEQ/L (98-107); CREATININE FOR GFR 1.09 MG/DL (0.70-1.30); GLOMERULAR FILTRATION RATE > 60.0 (>56); GLUCOSE, FASTING 158 MG/DL (70-100); POTASSIUM SERUM 3.6 MEQ/L (3.5-5.1); SODIUM LEVEL 142 MEQ/L (136-145)
[2019-05-11 08:00] VITALS: BP 116/59
[2019-05-11] MEDS ORDERED: FENTANYL REMOVAL DOCUMENTATION MISC XX SCH (09:00)
[2019-05-11] MEDS ORDERED: fentaNYL 50 MCG/HR PATCH TD SCH (09:00)
[2019-05-11] MEDS ORDERED: FERROUS GLUCONATE 324 MG TAB PO SCH (09:00)
[2019-05-11] MEDS: PANTOPRAZOLE 40MG TAB (PROTONIX) PO SCH (09:36)
[2019-05-11] MEDS: FLUoxetine 20 MG CAP PO SCH (09:36)
[2019-05-11] MEDS: GABAPENTIN 400 MG CAP PO SCH (09:37)
[2019-05-11] MEDS: APIXABAN 5 MG TAB (ELIQUIS) PO SCH ×2 (09:37→20:04)
[2019-05-11] MEDS: MAGNESIUM OXIDE 400 MG TAB (MAG-OX) PO SCH (09:37)
--- NOTE | 2019-05-11 10:11 | CR ---
DATE OF CONSULTATION: 05/10/2019 REFERRING PHYSICIAN: Dr. Ellie Oleary. REASON FOR CONSULTATION: Stroke. HISTORY OF PRESENT ILLNESS: Dae Shipman is a 48-year-old man who had a prolonged hospitalization at [facility]. He was hospitalized for 2 months between March 14, 2019 till May 06, 2019. He was admitted there with necrotic lesion of pancreas. The patient has been on Plavix for many years. He had AICD which was later removed. He has history of cardiomyopathy with ejection fraction 30%. He had DVT and started taking Eliquis in January 2019. When he was hospitalized at [facility], his Plavix and Eliquis were stopped for 4-5 days for surgery of necrotic tissue of pancreas according to the patient's . He suffered a subphrenic infarct and his colostomy was also redone due to issues with his old colostomy. Surgery was performed on March 18, 2019. The patient was moved from ICU to PCU at [facility] and was noted to have altered mental status and MRI scan of brain on March 21, 2019 showed a large posterior division of left middle cerebral artery ischemic stroke affecting left parietal and posterior temporal lobes. The patient has had trouble with his speech and mixed aphasia since then. He was discharged home on May 06, 2019. A day before his discharge, his fentanyl patch dose was increased to 50 mcg every 3 days. His noted that the patient was drowsy at home. She was sleeping all the time and acting strange. He was acting as if he was drunk. He appeared to have more difficulty speaking. She drove him to [facility] on May 09, 2019. The patient himself denies any headaches, neck or back pain. His fentanyl patch was removed in this morning and according to the patient's , he is more awake. He denies any numbness, weakness of his arms and legs. PAST MEDICAL HISTORY: Coronary artery disease status post coronary artery bypass graft (CABG) and stenting Chronic obstructive pulmonary disease (COPD). Stroke. Pulmonary hypertension. Sleep apnea. Hypertension. Dilated cardiomyopathy. Migraines. Dyslipidemia. Depression. Diabetes. Acid reflux. Chronic pancreatitis with pseudocyst. Protein calorie malnutrition. Clostridium difficile colitis. Osteomyelitis. Cholecystectomy. Vasectomy. Automated implantable cardioverter defibrillator (AUCD) placement which was removed later. Sigmoid colectomy and colostomy. SOCIAL HISTORY: He quit smoking few years ago. He denies alcohol or illicit drugs. FAMILY HISTORY: Father committed suicide. REVIEW OF SYSTEMS: All systems were reviewed and found to be noncontributory except as mentioned in history of present illness. ALLERGIES: No known drug allergies. HOME MEDICATIONS: - Eliquis 5 mg by mouth twice daily - carvedilol 12.5 mg by mouth twice daily - Plavix 75 mg by mouth daily - ferrous gluconate 324 mg by mouth daily - Prozac 40 mg by mouth daily - gabapentin 400 mg by mouth three times daily - Protonix 40 mg by mouth daily - Crestor 20 mg by mouth daily - fentanyl 50 mcg patch every 3 days which was removed yesterday - albuterol inhaler four times daily as needed - Combivent inhaler every 4 hours as needed - oxiconazole 5 mg by mouth every 6 hours as needed PHYSICAL EXAMINATION: Temperature 98.7, pulse 69, blood pressure 133/63, 97% saturation on room air. Heart: Regular rate and rhythm. Lungs: Clear to auscultation. Abdomen: Soft, nontender, nondistended. No pedal edema. No musculoskeletal abnormalities. No rash. No signs of meningeal irritation. No dysmetria. The patient is drowsy but arousable. He has mixed aphasia affecting expressive and receptive parts of his speech. He is unable to read or write. He has right-left confusion. He had difficulty understanding two-step commands. He was unable to write his own name and was unable to tell me his own last name. He is oriented to self. Extraocular muscles are intact. No facial weakness. Tongue and uvula are midline. No facial weakness. No nystagmus. 5/5 strength in all four extremities. Deep tendon flexes are 1+ throughout. Normal sensation throughout. Gait could not be tested. DIAGNOSTIC STUDIES: MRI scan of brain was reviewed and showed a large ischemic stroke affecting entire posterior division of left middle cerebral artery. ASSESSMENT: 1. Left middle cerebral artery ischemic stroke affecting entire posterior division. 2. Mixed aphasia. 3. Drowsiness and confusion aggravated by fentanyl and gabapentin and other sedatives. 4. Left middle cerebral artery stroke, likely happened on March 21, 2019 when he was at [facility] and he had complete workup here. 5. History of deep venous thrombosis (DVT), dilated cardiomyopathy, coronary artery disease. PLAN: 1. Get MRI and MRA brain and neck records from [facility] for comparison. This stroke is likely subacute and happened in March 2019 as described above. 2. Echocardiogram and carotid ultrasound. 3. Continue Plavix 75 mg by mouth daily and Eliquis 5 mg by mouth daily. 4. Avoid fentanyl. 5. Decrease gabapentin and possible taper off as it may be affecting him more than usual due to his stroke. 6. Avoid sedatives and narcotic pain medicines except when extremely necessary. 7. Follow with our office in 1 month after hospital discharge.
[2019-05-11 12:00] VITALS: BP 171/74
[2019-05-11] MEDS: ONDANSETRON 4 MG TAB (S0181) PO PRN (12:31)
[2019-05-11 16:00] VITALS: BP 120/57
--- NOTE | 2019-05-11 16:58 | IPNPDOC ---
Subjective Date Seen The patient was seen on 05/11/19. Subjective Chief Complaint/HPI Mr. Shipman has been pretty sleepy today per nursing, but he is a little more awake than he was the last couple of day. His reports that he is nearing his baseline. I spoke with Dr. Smith about him and he feels that most of the mentation changes were related to fentayl patch and gabapentin. He encouraged me to totally discontinue it in the next 1-2 days. The fentanyl patch was stopped yesterday. ENT: Denies: Head Aches Pulmonary: Denies: Dyspnea, Cough Cardiovascular: Denies: Chest Pain, Palpitations Neurological: Reports: Weakness, Change in speech (improving but still present) Objective Physical Examination General Exam: Positive: Alert, Cooperative, No Acute Distress Eye Exam: Negative: Sclera icteric ENT Exam: Positive: Mucous membr. moist/pink Chest Exam: Positive: Clear to auscultation, Normal air movement Heart Exam: Positive: Rate Normal, Normal S1, Normal S2 Abdomen Exam: Positive: Normal bowel sounds, Soft; Negative: Tenderness (+ colostomy, drain coming from old ostomy site. + PIERRE drain, + PEG, wounds appear clean and dry.) Extremity Exam: Negative: Edema Neuro Exam: Positive: Strength at 5/5 X4 ext; Negative: Normal Speech (+ expressive dysphasia, but this is reportedly improved from the last couple of day) Psych Exam: Negative: Mental status NL, Mood NL, Oriented x 3 (place and first name only) Assessment /Plan Problems (1) CVA (cerebral vascular accident) Status: Acute Response to Treatment: Stable Discussed With: Nurse, Patient, Family with Pt Consent Problem Specific Plan: Consult Specialist, Monitor Clinically Problem Text: Likely subacute as pt with R hemiparesis, expressive aphasia, R facial droop documented 03/27 at [facility] while inpt. He is improving off of fentanyl and with a decreased dose of gabapentin today per Neuro. We will taper him totally off of the gabapentin in the next 1-2 days. EEG ordered. (2) Anemia Status: Acute Response to Treatment: Worse Discussed With: Nurse, Patient, Family with Pt Consent Problem Specific Plan: Repeat Labs Problem Text: He is back up to 8.8 after his 1 unit transfusion. Will continue to monitor. (3) Dilated cardiomyopathy Status: Chronic Response to Treatment: Stable Problem Specific Plan: Monitor Clinically Problem Text: Asymptomatic, wears lifevest as an outpt. (4) General weakness Status: Acute (5) CAD (coronary artery disease) Status: Chronic Response to Treatment: Stable Problem Specific Plan: Monitor Clinically Problem Text: Stable. Cont with Labetolol, Eliquis, Plavix, Crestor. (6) Splenic abscess Status: Acute Response to Treatment: Stable Discussed With: Nurse, Patient Problem Specific Plan: Monitor Clinically, Repeat Labs Problem Text: Pt with percutaneous drain placed within abscess, this was placed at [facility]. Plan/VTE VTE Prophylaxis Ordered?: Yes Plan Therapy: PT, OT, Speech (will need all three services when he is discharge) Anticipated Discharge: Sub Acute Rehab (may be a reasonably consideration for him, but not sure what the official plan is yet) VS, I&O, 24H, Fishbone Vital Signs/I&O Vital Signs Date Time Temp Pulse Resp B/P (MAP) Pulse Ox O2 Delivery O2 Flow Rate FiO2 05/11/19 12:00 99.1 84 20 171/74 (106) 97 05/10/19 01:30 Room Air I&O- Last 24 Hours up to 6 AM 05/11/19 05:59 Intake Total 1930 ml Output Total 1540 ml Balance 390 ml Laboratory Data 24H LABS Laboratory Tests 2 05/10/19 17:45: Bedside Glucose (Misc Panel) 93 05/11/19 02:36: Bedside Glucose (Misc Panel) 132H 05/11/19 04:59: Immature Granulocyte % (Auto) 0.2, White Blood Count 9.6, Red Blood Count 3.08L, Hemoglobin 8.8L, Hematocrit 28.3L, Mean Corpuscular Volume 91.9, Mean Corpuscular Hemoglobin 28.6, Mean Corpuscular Hemoglobin Concent 31.1L, Red Cell Distribution Width 17.7H, Platelet Count 448, Neutrophils (%) (Auto) 49.2, Ly mphocytes (%) (Auto) 26.8, Monocytes (%) (Auto) 16.3H, Eosinophils (%) (Auto) 6.1H, Basophils (%) (Auto) 1.4H, Neutrophils # (Auto) 4.7, Lymphocytes # (Auto) 2.6, Monocytes # (Auto) 1.6H, Eosinophils # (Auto) 0.6H, Basophils # (Auto) 0.1, Nucleated Red Blood Cells % (auto) 0.0, Anion Gap 6L, Glomerular Filtration Rate > 60.0, Blood Urea Nitrogen 10, Creatinine 1.09, Sodium Level 142, Potassium Lev el 3.6, Chloride Level 108H, Carbon Dioxide Level 28, Calcium Level 10.0, Aspartate Amino Transf (AST/SGOT) 15, Alanine Aminotransferase (ALT/SGPT) 12, Alkaline Phosphatase 105, Total Bilirubin 0.3, Total Protein 7.0, Albumin 2.6L, Albumin/Globulin Ratio 0.59L 05/11/19 09:43: Methicillin-Resist S.aureus DNA PCR NOT DETECTED 05/11/19 11:55: Bedside Glucose (Misc Panel) 107H CBC/BMP Laboratory Tests 05/11/19 04:59 Red Blood Count 3.08 L, Mean Corpuscular Volume 91.9, Mean Corpuscular Hemoglobin 28.6, Mean Corpuscular Hemoglobin Concent 31.1 L, Red Cell Distribution Width 17.7 H, Neutrophils (%) (Auto) 49.2, Lymphocytes (%) (Auto) 26.8, Monocytes (%) (Auto) 16.3 H, Eosinophils (%) (Auto) 6.1 H, Basophils (%) (Auto) 1.4 H, Neutrophils # (Auto) 4.7, Lymphocytes # (Auto) 2.6, Monocytes # (Auto) 1.6 H, Eosinophils # (Auto) 0.6 H, Basophils # (Auto) 0.1, Calcium Level 10.0, Aspartate Amino Transf (AST/SGOT) 15, Alanine Aminotransferase (ALT/SGPT) 12, Alkaline Phosphatase 105, Total Bilirubin 0.3, Total Protein 7.0, Albumin 2.6 L Microbiology Microbiology 05/09/19 Blood Culture - Preliminary, Resulted No growth after 24 hours . All specim... 05/09/19 Blood Culture - Preliminary, Resulted No growth after 24 hours . All specim... Benton Stratton MD May 11, 2019 16:58
[2019-05-11 20:00] VITALS: BP 116/63
[2019-05-11] MEDS: FERROUS GLUCONATE 324 MG TAB PO SCH (20:04)
[2019-05-11] MEDS: ROSUVASTATIN 10 MG TAB (CRESTOR) PO SCH (20:04)
[2019-05-11] MEDS: GABAPENTIN 100 MG CAP PO SCH (20:05)
[2019-05-11] MEDS: CLOPIDOGREL 75 MG TAB PO SCH (20:05)
[2019-05-12] VITALS: BP 121/65
[2019-05-12] MEDS: HumaLOG INSULIN (NovoLOG) PER UNIT SC SCH ×5 (00:38→23:32)
[2019-05-12] MEDS: NS 1,000 ML IV SCH ×3 (03:29→21:45)
[2019-05-12 04:00] VITALS: BP 130/70
[2019-05-12 05:01] LABS: HEMATOCRIT 28.2 % (42.0-52.0); HEMOGLOBIN 8.8 g/dl (13.5-17.5); MEAN CORPUSCULAR HEMOGLOBIN 28.8 pg (27.0-33.0); MEAN CORPUSCULAR HGB CONC 31.2 g/dl (32.0-36.5); MEAN CORPUSCULAR VOLUME 92.2 fl (80.0-96.0); PLATELET COUNT, AUTOMATED 470 10^3/uL (150-450); RED BLOOD COUNT 3.06 10^6/uL (4.30-6.10); WHITE BLOOD COUNT 12.7 10^3/uL (4.0-10.0)
[2019-05-12 05:27] LABS: ALBUMIN 2.5 GM/DL (3.2-5.2); ALT/SGPT 9 U/L (12-78); BILIRUBIN,TOTAL 0.2 MG/DL (0.2-1.0); BLOOD UREA NITROGEN 10 MG/DL (7-18); CALCIUM LEVEL 9.3 MG/DL (8.5-10.1); CARBON DIOXIDE LEVEL 24 MEQ/L (21-32); CHLORIDE LEVEL 110 MEQ/L (98-107); CREATININE FOR GFR 0.98 MG/DL (0.70-1.30); GLOMERULAR FILTRATION RATE > 60.0 (>56); GLUCOSE, FASTING 140 MG/DL (70-100); POTASSIUM SERUM 3.9 MEQ/L (3.5-5.1); SODIUM LEVEL 142 MEQ/L (136-145); TOTAL PROTEIN 6.7 GM/DL (6.4-8.2)
[2019-05-12 08:00] VITALS: BP 138/85
[2019-05-12] MEDS: ONDANSETRON 4 MG TAB (S0181) PO PRN ×3 (08:05→20:07)
[2019-05-12] MEDS: FLUoxetine 20 MG CAP PO SCH (09:50)
[2019-05-12] MEDS: MAGNESIUM OXIDE 400 MG TAB (MAG-OX) PO SCH (09:50)
[2019-05-12] MEDS: PANTOPRAZOLE 40MG TAB (PROTONIX) PO SCH (09:50)
[2019-05-12] MEDS: APIXABAN 5 MG TAB (ELIQUIS) PO SCH ×2 (09:50→20:07)
[2019-05-12] MEDS: GABAPENTIN 100 MG CAP PO SCH ×2 (09:50→20:07)
[2019-05-12 12:00] VITALS: BP 138/84
--- NOTE | 2019-05-12 13:41 | IPNPDOC ---
Subjective Date Seen The patient was seen on 05/12/19. Subjective Chief Complaint/HPI Mr. Shipman is doing better today by every one's account. Nursing reported that he has more energy and was up to the chair. They think he will do well with therapy tomorrow. His reports that he is talking more and the content of his speech makes more sense. Dae states that he generally feels "fine" today. He has been having more nausea and nursing requested an increase in the frequency of his Zofran. I suspect that this is related to withdraw from opioids and his fentnyl patch was abruptly discontinued two days ago because of his decreased mentation and we know he has a long history of dependence on opioids. Fortunately, he is not complaining of pain at this time, just nausea. Hopefully his withdraw won't be too terrible. Pulmonary: Denies: Dyspnea, Cough Cardiovascular: Denies: Chest Pain, Palpitations Gastrointestinal: Reports: Nausea, Vomiting Neurological: Reports: Weakness (improving), Change in speech (improvment from even yesterday) Objective Physical Examination General Exam: Positive: Alert, Cooperative, No Acute Distress Eye Exam: Negative: Sclera icteric ENT Exam: Positive: Mucous membr. moist/pink Neck Exam: Positive: Supple; Negative: Lymphadenopathy Chest Exam: Positive: Clear to auscultation, Normal air movement Heart Exam: Positive: Rate Normal, Normal S1, Normal S2 Abdomen Exam: Positive: Normal bowel sounds, Soft; Negative: Tenderness (+ colostomy, drain coming from old ostomy site. + PIERRE drain, + PEG, wounds appear clean and dry.) Extremity Exam: Negative: Edema Neuro Exam: Positive: Strength at 5/5 X4 ext; Negative: Normal Speech (+ expressive dysphasia, but improved he still has significant word finding difficulty, but he CAN eventually get out what he wants to say) Psych Exam: Positive: Mood NL, Oriented x 3 (Oriented to person, place, and season. He couldn't say "monday" but reported he knows what day of the week it is he just can't make the word come out) Assessment /Plan Problems (1) CVA (cerebral vascular accident) Status: Acute Response to Treatment: Stable, Improving Discussed With: Nurse, Patient, Family with Pt Consent Problem Specific Plan: Consult Specialist, Monitor Clinically Problem Text: Likely subacute as pt with R hemiparesis, expressive aphasia, R facial droop documented 03/27 at [facility] while inpt. He is improving off of fentanyl and with a decreased dose of gabapentin today per Neuro. I discussed totally discontinuing the gabapentin today vs tomorrow and his prefers tomorrow. The rationale is that he is experiencing some withdraw side effects already. Additionally his mentation is much clearer already. Maybe giving his brain/system more time to adjust is a vivas idea. In reviewing the order history it appears that the EEG has not actually been ordered. I will defer to neurology to see if it is needed at this time. (2) Opioid withdrawal Status: Acute Problem Specific Plan: Monitor Clinically Problem Text: He has a long history of being on opioid pain medications. His fentanyl patch was removed about 48h ago because of decreased mentation. He seems to be doing ok without it, but is having increased nausea today. I increased his Zofran frequency. Will monitor carefully. I think that while we have him inpatient, this is a great time to wean him completely off of the opioids. (3) Anemia Status: Acute Response to Treatment: Worse Discussed With: Nurse, Patient, Family with Pt Consent Problem Specific Plan: Repeat Labs Problem Text: Stable at 8.8 after his 1 unit transfusion. Will continue to monitor. (4) Dilated cardiomyopathy Status: Chronic Response to Treatment: Stable Problem Specific Plan: Monitor Clinically Problem Text: Asymptomatic, wears lifevest as an outpt. Needs to be on a child monitor here if he is going to have it off. (5) Splenic abscess Status: Acute Response to Treatment: Stable Discussed With: Nurse, Patient Problem Specific Plan: Monitor Clinically, Repeat Labs Problem Text: Pt with percutaneous drain placed within abscess, this was placed at [facility]. (6) General weakness Status: Acute Problem Text: He has therapy orders. (7) CAD (coronary artery disease) Status: Chronic Response to Treatment: Stable Problem Specific Plan: Monitor Clinically Problem Text: Stable. Cont with Labetolol, Eliquis, Plavix, Crestor. Plan/VTE VTE Prophylaxis Ordered?: Yes Plan Therapy: PT, OT, Speech (will need all three services when he is discharge) Anticipated Discharge: Sub Acute Rehab (may be a reasonably consideration for him, but not sure what the official plan is yet) VS, I&O, 24H, Fishbone Vital Signs/I&O Vital Signs Date Time Temp Pulse Resp B/P (MAP) Pulse Ox O2 Delivery O2 Flow Rate FiO2 05/12/19 04:00 99.0 91 20 130/70 (90) 97 05/10/19 01:30 Room Air I&O- Last 24 Hours up to 6 AM 05/12/19 06:00 Intake Total 1060 ml Output Total 1180 ml Balance -120 ml Laboratory Data 24H LABS Laboratory Tests 2 05/11/19 17:52: Bedside Glucose (Misc Panel) 190H 05/11/19 23:24: Bedside Glucose (Misc Panel) 153H 05/12/19 04:37: Nucleated Red Blood Cells % (auto) 0.0, Anion Gap 8, Glomerular Filtration Rate > 60.0, Blood Urea Nitrogen 10, Creatinine 0.98, Sodium Level 142, Potassium Level 3.9, Chloride Level 110H, Carbon Dioxide Level 24, Calcium Level 9.3, A spartate Amino Transf (AST/SGOT) 11, Alanine Aminotransferase (ALT/SGPT) 9L, Alkaline Phosphatase 97, Total Bilirubin 0.2, Total Protein 6.7, Albumin 2.5L, Albumin/Globulin Ratio 0.60L 05/12/19 05:55: Bedside Glucose (Misc Panel) 171H CBC/BMP Laboratory Tests 05/12/19 04:37 Red Blood Count 3.06 L, Mean Corpuscular Volume 92.2, Mean Corpuscular Hemoglobin 28.8, Mean Corpuscular Hemoglobin Concent 31.2 L, Red Cell Distribution Width 17.7 H, Calcium Level 9.3, Aspartate Amino Transf (AST/SGOT) 11, Alanine Aminotransferase (ALT/SGPT) 9 L, Alkaline Phosphatase 97, Total Bilirubin 0.2, Total Protein 6.7, Albumin 2.5 L Microbiology Microbiology 05/09/19 Blood Culture - Preliminary, Resulted No Growth after 48 hours. All Specime... 05/09/19 Blood Culture - Preliminary, Resulted No Growth after 48 hours. All Specime... Benton Stratton MD May 12, 2019 13:41
[2019-05-12 16:00] VITALS: BP 131/73
[2019-05-12 20:00] VITALS: BP 136/73
[2019-05-12] MEDS: CLOPIDOGREL 75 MG TAB PO SCH (20:07)
[2019-05-12] MEDS: ROSUVASTATIN 10 MG TAB (CRESTOR) PO SCH (20:08)
[2019-05-13] VITALS (30 sets, daily range): BP systolic 90–157; BP diastolic 54–89
[2019-05-13] MEDS: NITROGLYCERIN 0.4 MG SUBL TABLET SL PRN ×4 (01:20→02:09)
[2019-05-13 02:16] LABS: CK-MB VALUE MASS 1.4 NG/ML (<3.6); MB/CK RELATIVE INDEX 3.59 (< OR =4); TROPONIN I 0.08 NG/ML (< 0.10)
--- NOTE | 2019-05-13 02:59 | REPVR ---
PROCEDURE INFORMATION: Exam: XR Chest, 1 View Exam date and time: 05/13/2019 2:30 AM Clinical history: 48 years old, male; Chest pain; Type not specified TECHNIQUE: Imaging protocol: XR of the chest Views: 1 view. COMPARISON: CR Abdomen,Flat Upright,PA CHEST 05/09/2019 8:32 PM FINDINGS: Tubes, catheters and devices: G-tube in the stomach. Lungs: Increased vascular congestion and patchy bilateral pulmonary infiltrates which may reflect early pulmonary edema. Pleural space: Unremarkable. No pleural effusion. No pneumothorax. Heart/Mediastinum: The heart and mediastinum are unchanged. Bones/joints: Unremarkable. IMPRESSION: Increased patchy bilateral pulmonary infiltrates since 05/09/2019 suggesting early pulmonary edema. Electronically signed by: Trevor Cooper On 05/13/2019 02:58:52 AM
[2019-05-13] MEDS ORDERED: methylPREDNISolone INJ 125 MG/2 ML VIAL (J2930) IV SCH (03:00)
[2019-05-13] MEDS ORDERED: cefTRIAXone SOD 1 GM VIAL (J0696) IM SCH (03:15)
[2019-05-13] MEDS ORDERED: VANCOMYCIN HCL 1,000 MG, VIAL MATE ADAPTER 1 EACH in D5W 250 ML IV ONE (03:25)
[2019-05-13] MEDS: cefTRIAXone SOD 1 GM in D5W MINI-BAG PLUS 50 ML IV SCH (03:44)
[2019-05-13] MEDS ORDERED: FUROSEMIDE 40 MG/4 ML VIAL (J1940) As Ordered ONE (05:38)
[2019-05-13] MEDS ORDERED: LEVALBUTEROL 1.25 MG/0.5 ML CONCENTRATE NEB INH PRN (05:45)
[2019-05-13] MEDS ORDERED: FUROSEMIDE 40 MG/4 ML VIAL (J1940) IV ONE ×2 (05:45→09:45)
[2019-05-13] MEDS ORDERED: fentaNYL CITRATE 1,000 MCG in NS 80 ML IV SCH (05:56)
[2019-05-13 05:57] LABS: HEMATOCRIT 34.6 % (42.0-52.0); HEMOGLOBIN 10.5 g/dl (13.5-17.5); MEAN CORPUSCULAR HEMOGLOBIN 28.8 pg (27.0-33.0); MEAN CORPUSCULAR HGB CONC 30.3 g/dl (32.0-36.5); MEAN CORPUSCULAR VOLUME 95.1 fl (80.0-96.0); PLATELET COUNT, AUTOMATED 664 10^3/uL (150-450); RED BLOOD COUNT 3.64 10^6/uL (4.30-6.10)
[2019-05-13 06:00] LABS: WHITE BLOOD COUNT 31.4 10^3/uL (4.0-10.0)
[2019-05-13] MEDS ORDERED: REFRIGERATOR IV KEYS XX PRN (06:00)
[2019-05-13] MEDS ORDERED: MIDAZOLAM INJ 2 MG/2 ML VIAL (J2250) IV PRN ×2 (06:00→07:45)
[2019-05-13] MEDS ORDERED: fentaNYL 100 MCG/2 ML INJECTION (J3010) IV PRN (06:00)
[2019-05-13 06:02] LABS: ABG BASE EXCESS -12.8 (-2.0-2.0); ABG HCO3 16.9 MEQ/L (22.0-26.0); ABG O2 SATURATION 97.4 % (95.0-99.0); ABG PARTIAL PRESSURE O2 131.2 mmHg (75.0-100.0); ABG STANDARD HCO3 14.5 MEQ/L (22.0-26.0); ABG TOTAL CO2 18.6 MEQ/L (22.0-29.0)
[2019-05-13] MEDS ORDERED: SODIUM BICARBONATE 8.4% INJ 50 ML SYRINGE IV STA (06:02)
[2019-05-13 06:03] LABS: ABG pH (ARTERIAL) 7.097 UNITS (7.350-7.450)
--- NOTE | 2019-05-13 06:05 | IPNPDOC ---
Text Note Date of Service The patient was seen on 05/13/19. NOTE Called by RN at 528 AM because the patient was c/o chest pain and labored coretta athing; a few hourse prior he had a chest xray that showed bilataral effusions and infiltrates at the bases and was started on abx & IVF for possible PNA. On initial evaluation the patient was unable to speak full sentences but confirmed that he had chest pain. HR 140-160 / RR 30s / O2 sats 90s GEN anxious/ vent mask in place CVS: tachycardic LUNGS: unable to speak full sentences / decreased air entry / using accessory muscles/ coarse rhonchi bilaterally Assessment & Plan: #Acute hypercarbic respiratory failure possibly due to pulm edema he has gained weight over the last few days he has CHF w an EF <30 at baseline ABG showed elevated PCO2 Plan: lasix IV 40mg/ ABG / call anesthesiology to intubate / vent support / pulm toilet training/ versed and fentanyl / switch from PO PPI to IV PPI / place mcpherson to monitor Is and Os / repeat chest xray and ABG post intubation #Tachycardia Cause TBD EKG reviewed recent trop and TSH wnl Plan: labetalol / switch from albuterol to levalbuterol #Primary Respiratory Acidosis with secondary metabolic acidosis and non AG metabolic acidosis ABG reviewed Plan: bicarb push 50meq / f/u foot roentgenologist prior to ordering bicarb drip completed assessment and orders at 613AM total CC time 41 min VS,Fishbone, I+O VS, Fishbone, I+O Laboratory Tests 05/13/19 05:47 Red Blood Count 3.64 L, Mean Corpuscular Volume 95.1, Mean Corpuscular Hemoglobin 28.8, Mean Corpuscular Hemoglobin Concent 30.3 L, Red Cell Dis tribution Width 17.7 H, Lymphocytes # (Auto) , Monocytes # (Auto) Vital Signs Date Time Temp Pulse Resp B/P (MAP) Pulse Ox O2 Delivery O2 Flow Rate FiO2 05/13/19 05:43 161 164/106 05/13/19 04:00 97.9 20 96 3.0 05/13/19 02:00 05/10/19 01:30 Room Air I&O- Last 24 Hours up to 6 AM 05/13/19 06:00 Intake Total 1550 ml Output Total 580 ml Balance 970 ml MARZENA DAMON MD May 13, 2019 06:05
[2019-05-13] MEDS ORDERED: PROPOFOL 1,000 MG/100 ML VIAL As Ordered ONE (06:09)
[2019-05-13] MEDS ORDERED: ETOMIDATE INJ 20MG/10ML VIAL IV STA (06:25)
[2019-05-13] MEDS ORDERED: SUCCINYLCHOLINE INJ 200 MG/10 ML VIAL (J0330) IV STA (06:25)
--- NOTE | 2019-05-13 06:27 | IPNPDOC ---
Text Note Date of Service The patient was seen on 05/13/19. NOTE Interim note: Mr. Shipman had had several episodes of sinus tachycardia over night in to the 130-140s. He was also beginning to complain of some chest pain and his oxygen saturations were dropping down. He responded to increased oxygen supplementation with a mask and the tachycardia was not sustained. An EKG was done and was reported to me as showing no significant change from the admission on. I ordered a cardiac injury profile that was negative initially. When he had another episode I ordered a CXR. This showed new bilateral patchy infiltrates. His urine output had been poor, so I opted to leave him on his IVF at 60cc/hr, but entertained the idea of a nosocomial pneumonia. I ordered sputum gram stain and cx and started him on Rocephin and Vancomycin. I ordered a BNP and procalcitonin to be done with the Am labs. He was maintaining his oxygen saturations in the mid-90s and his heart rate was also down in the 90s. At around 5:30am, nursing reported that his heart rate jumped to 150 and then started going higher. He became acutely dyspenic and diaphoretic. The night hospitalist was called to the bedside and I came in from home. When I arrived he was tachypenic in the high 30s or 40s, his level of alertness was suppressed and fluctuating, and he was very diaphoretic. It became clear that he was going to tire out quickly and anesthesia was called for assistance with intubating him. I also spoke to Dr. Whitney and asked for urgent assistance with managing him. He was successfully intubated and is ventilated. I asked for sedation with propofol. His initial ABG drawn from just before his intubation was 7.09/56.0/131.2. Dr. Whitney will be managing his vent. I appreciate both Dr. Sullivan and Dr. Whitney's assistance. I spoke with his fiancee. His MOLST form notes that he wants a trial of intubation and ventilation, but not long-term ventilation. Unfortunately, he does not have an active Health Care Proxy so it isn't clear who will help us to determine when the trial is over if he doesn't improve. I will ask PFS for assistance in determining this now, so we don't get stuck wondering when a decision must be made. VS,Fishbone, I+O VS, Fishbone, I+O Laboratory Tests 05/13/19 05:47 Red Blood Count 3.64 L, Mean Corpuscular Volume 95.1, Mean Corpuscular Hemoglobin 28.8, Mean Corpuscular Hemoglobin Concent 30.3 L, Red Cell Distribution Width 17.7 H, Lymphocytes # (Auto) , Monocytes # (Auto) Vital Signs Date Time Temp Pulse Resp B/P (MAP) Pulse Ox O2 Delivery O2 Flow Rate FiO2 05/13/19 06:10 115 18 99 50 05/13/19 05:43 164/106 05/13/19 04:00 97.9 3.0 05/10/19 01:30 Room Air I&O- Last 24 Hours up to 6 AM 05/13/19 06:00 Intake Total 1550 ml Output Total 580 ml Balance 970 ml Benton Stratton MD May 13, 2019 06:27
[2019-05-13] MEDS ORDERED: MIDAZOLAM HCL 100 MG in D5W 80 ML IV SCH (06:30)
--- NOTE | 2019-05-13 06:37 | PHACANCOPD ---
PHARMACY VANCOMYCIN DOSING Pt Demographics Demographics Patient Age:48 , Weight:63.200 , Gender: male Adjusted Body Weight Date: 05/13/19, Adjusted Body Weight: Kg Vancomycin Vancomycin indication: PNA Vancomycin Target Ranges: 10-20 mcg/ml Vancomycin Load Y/N: No Load Dose Date Time Vancomycin Load Dose: Date: Time: Vancomycin Dose Date: 05/13/19. Current Vancomycin Dose: [1 GM@05,THEN Q18H@17] Intermittent Dosing?: No Labs Micro Microbiology 05/13/19 Gram Stain, Received Pending 05/13/19 Sputum Culture, Received Pending 05/09/19 Blood Culture - Preliminary, Resulted No Growth after 72 hours. All specime... 05/09/19 Blood Culture - Preliminary, Resulted No Growth after 72 hours. All specime... Creatinine Clearance Date:05/13/19. Creatinine Clearance: [80.6].CALCULATED Assessment and Plan Maintaining Current Dose?: Yes Reason for dose change: No Dose Change Pharmacist Note Pharmacist Note Date: 05/13/19. Pharmacist note:48 yom SCR=0.98,CRCL=80.6(CALCULATED) Begun on Ceftriaxone 1 gm IV Q24H and Vancomycin for possible Pneumonia,MRSA screen done 05/11,Patient tends to accumulate Vancomycin quickly as noted in past consults. Will begin with 1 gram IV today@0500,then will begin 1 gram IV [id number] regimen@1700. The first trough is scheduled for 05/14 @1000. will continue to follow [facility] May 13, 2019 06:37
[2019-05-13 06:42] LABS: ALBUMIN 2.9 GM/DL (3.2-5.2); BLOOD UREA NITROGEN 10 MG/DL (7-18); CALCIUM LEVEL 9.5 MG/DL (8.5-10.1); CARBON DIOXIDE LEVEL 19 MEQ/L (21-32); CHLORIDE LEVEL 105 MEQ/L (98-107); CK-MB VALUE MASS 11.4 NG/ML (<3.6); CPK CREATINE PHOSPHOKINASE 144 U/L (39-308); CREATININE FOR GFR 1.13 MG/DL (0.70-1.30); GLOMERULAR FILTRATION RATE > 60.0 (>56); GLUCOSE, FASTING 361 MG/DL (70-100); MAGNESIUM LEVEL 1.7 MG/DL (1.8-2.4); MB/CK RELATIVE INDEX 7.92 (< OR =4); NT-PRO BNP 34909 PG/ML (<125); PHOSPHORUS LEVEL 3.7 MG/DL (2.5-4.9); POTASSIUM SERUM 5.3 MEQ/L (3.5-5.1); SODIUM LEVEL 136 MEQ/L (136-145); TROPONIN I 0.29 NG/ML (< 0.10)
[2019-05-13] MEDS: PROPOFOL 1,000 MG in IV 1 EA IV SCH ×5 (06:45→22:22)
[2019-05-13] MEDS: HumaLOG INSULIN (NovoLOG) PER UNIT SC SCH ×3 (06:48→18:03)
[2019-05-13 07:03] LABS: ABG BASE EXCESS -5.8 (-2.0-2.0); ABG HCO3 18.8 MEQ/L (22.0-26.0); ABG O2 SATURATION 96.8 % (95.0-99.0); ABG PARTIAL PRESSURE CO2 33.9 mmHg (35.0-45.0); ABG PARTIAL PRESSURE O2 95.3 mmHg (75.0-100.0); ABG STANDARD HCO3 19.6 MEQ/L (22.0-26.0); ABG TOTAL CO2 19.8 MEQ/L (22.0-29.0); ABG pH (ARTERIAL) 7.362 UNITS (7.350-7.450)
[2019-05-13 07:10] LABS: ANISOCYTOSIS 1+; BASOPHILS 2 % (0-1); LYMPHOCYTES 19 % (16-44); MONOCYTES 9 % (0-5); NEUTROPHILS 70 % (28-66); PLATELET ESTIMATE INCREASED (NORMAL)
[2019-05-13] MEDS ORDERED: ALBUTEROL SULFATE 2.5 MG/0.5 ML INH NEB SOLN NEB PRN (07:45)
[2019-05-13] MEDS ORDERED: MORPHINE 4 MG/ML 1ML VIAL/SYRINGE (J2270) IV PRN (07:45)
[2019-05-13] MEDS: MAGNESIUM OXIDE 400 MG TAB (MAG-OX) PO SCH (08:42)
[2019-05-13] MEDS: FLUoxetine 20 MG CAP PO SCH (08:42)
[2019-05-13] MEDS: GABAPENTIN 100 MG CAP PO SCH ×2 (08:42→21:29)
[2019-05-13] MEDS: APIXABAN 5 MG TAB (ELIQUIS) PO SCH (08:43)
[2019-05-13] MEDS ORDERED: PANTOPRAZOLE 40MG INJ (PROTONIX) (C9113) IV SCH (09:00)
[2019-05-13] MEDS ORDERED: CHLORHEXIDINE GLUCONATE 0.12 % 15ML UDC (PERIDEX ORAL RINSE) MT SCH (09:00)
[2019-05-13 09:04] LABS: CK-MB VALUE MASS 25.3 NG/ML (<3.6); MB/CK RELATIVE INDEX 12.28 (< OR =4); TROPONIN I 0.82 NG/ML (< 0.10)
--- NOTE | 2019-05-13 09:32 | IPNPDOC ---
Subjective Date Seen The patient was seen on 05/13/19. Subjective Chief Complaint/HPI intubated, looks comfortable. General: Reports: ROS Unobtainable Objective Physical Examination General Exam: Positive: No Acute Distress; Negative: Alert, Cooperative Eye Exam: Negative: Sclera icteric ENT Exam: Positive: Mucous membr. moist/pink Neck Exam: Positive: Supple; Negative: thyromegaly, Lymphadenopathy Chest Exam: Positive: Normal air movement, Rales (bibasilar); Negative: Wheezing Heart Exam: Positive: Rate Normal, Tachycardic (intermittently tachcardic.), Normal S1, Normal S2 Abdomen Exam: Positive: BS Hypoactive, Soft; Negative: Normal bowel sounds, Tenderness (+ colostomy, drain coming from old ostomy site. + PIERRE drain, + PEG, wounds appear clean and dry.) Extremity Exam: Negative: Edema Skin Exam: Positive: Nl turgor and temperature Neuro Exam: Positive: Strength at 5/5 X4 ext; Negative: Normal Speech (+ expressive dysphasia, but improved he still has significant word finding difficulty, but he CAN eventually get out what he wants to say) Psych Exam: Positive: Other (intubated and unresponsive with Propafol infusin g.) Assessment /Plan Problems (1) Systolic and diastolic CHF, acute on chronic Status: Acute Response to Treatment: Improving Problem Text: intubated and improving since positive pressure ventilation. troponin is up a little, will trend. certainly new SD is possible. (2) Dilated cardiomyopathy Status: Chronic Response to Treatment: Stable Problem Specific Plan: Monitor Clinically Problem Text: Asymptomatic, wears lifevest as an outpt. Needs to be on a threat monitoring analyst here if he is going to have it off. (3) CVA (cerebral vascular accident) Status: Acute Response to Treatment: Stable, Improving Discussed With: Nurse, Patient, Family with Pt Consent Problem Specific Plan: Consult Specialist, Monitor Clinically Problem Text: 05/13: overnight intubated due to acutely increasing dyspnea. on propafol at this time. Likely subacute as pt with R hemiparesis, expressive aphasia, R facial droop documented 03/27 at [facility] while inpt. He is improving off of fentanyl and with a decreased dose of gabapentin today per Neuro. I discussed totally discontinuing the gabapentin today vs tomorrow and his prefers tomorrow. The rationale is that he is experiencing some withdraw side effects already. Additionally his mentation is much clearer already. Maybe giving his brain/system more time to adjust is a vivas idea. In reviewing the order history it appears that the EEG has not actually been ordered. I will defer to neurology to see if it is needed at this time. (4) Opioid withdrawal Status: Acute Problem Specific Plan: Monitor Clinically Problem Text: He has a long history of being on opioid pain medications. His fentanyl patch was removed about 48h ago because of decreased mentation. He seems to be doing ok without it, but is having increased nausea today. I increased his Zofran frequency. Will monitor carefully. I think that while we have him inpatient, this is a great time to wean him completely off of the opioids. (5) Anemia Status: Acute Response to Treatment: Worse Discussed With: Nurse, Patient, Family with Pt Consent Problem Specific Plan: Repeat Labs Problem Text: Stable at 8.8 after his 1 unit transfusion. Will continue to monitor. (6) Splenic abscess Status: Acute Response to Treatment: Stable Discussed With: Nurse, Patient Problem Specific Plan: Monitor Clinically, Repeat Labs Problem Text: Pt with percutaneous drain placed within abscess, this was placed at [facility]. (7) General weakness Status: Acute Problem Text: He has therapy orders. (8) CAD (coronary artery disease) Status: Chronic Response to Treatment: Stable Problem Specific Plan: Monitor Clinically Problem Text: Stable. Cont with Labetolol, Eliquis, Plavix, Crestor. Plan/VTE VTE Prophylaxis Ordered?: Yes Plan Therapy: PT, OT, Speech (will need all three services when he is discharge) Anticipated Discharge: Sub Acute Rehab (may be a reasonably consideration for him, but not sure what the official plan is yet) VS, I&O, 24H, Fishbone Vital Signs/I&O Vital Signs Date Time Temp Pulse Resp B/P (MAP) Pulse Ox O2 Delivery O2 Flow Rate FiO2 05/13/19 08:20 26 96 40 05/13/19 06:55 95 Ventilator 05/13/19 06:45 137/89 05/13/19 04:00 97.9 3.0 I&O- Last 24 Hours up to 6 AM 05/13/19 06:00 Intake Total 1550 ml Output Total 580 ml Balance 970 ml Laboratory Data 24H LABS Laboratory Tests 2 05/12/19 16:59: Bedside Glucose (Misc Panel) 136H 05/12/19 23:18: Bedside Glucose (Misc Panel) 119H 05/13/19 01:44: Total Creatine Kinase 39, Creatine Kinase MB 1.4, Creatine Kinase MB Relative I ndex 3.59, Troponin I 0.08 05/13/19 05:47: Total Creatine Kinase 144#, Creatine Kinase MB 11.4H, Creatine Kinase MB Relative Index 7.92H, Troponin I 0.29#H, White Blood Count 31.4*H, Red Blood Count 3.64L, Hemoglobin 10.5L, Hematocrit 34.6L, Mean Corpuscular Volume 95.1, Mean Corpuscular Hemoglobin 28.8, Mean Corpuscular Hemoglobin Concent 30.3L, Red Cell Distribution Width 17.7H, Platelet Count 664H, Lymphocytes # (Auto) , Monocytes # (Auto) , Nucleated Red Blood Cells % (auto) 0.0, Neutrophils 70H, Lymphocytes (Manual) 19, Monocytes (Manual) 9H, Basophils (Manual) 2H, Platelet Estimate INCREASED, Anisocytosis 1+, Blood Urea Nitrogen 10, Creatinine 1.13, Sodium Level 136, Potassium Level 5.3H, Chloride Level 105, Carbon Dioxide Level 19L, Anion Gap 12, Glomerular Filtration Rate > 60.0, Calcium Level 9.5, Phosphorus Level 3.7, Magnesium Level 1.7L, OG-Pzz-P-Type Natriuretic Peptide 54761L, Albumin 2.9L 05/13/19 05:51: Bedside Glucose (Misc Panel) 343H 05/13/19 05:54: Blood Gas Bicarbonate Standard 14.5L, Arterial Blood pH 7.097*L, Arterial Blood Partial Pressure CO2 56.0H, Arterial Blood Partial Pressure O2 131.2H, Arterial Blood Total CO2 18.6L, Arterial Blood HCO3 16.9L, Arterial Blood Base Excess - 12.8L, Arterial Blood Oxygen Saturation 97.4 05/13/19 06:43: Bedside Glucose (Misc Panel) 412H 05/13/19 06:45: Blood Gas Bicarbonate Standard 19.6L, Arterial Blood pH 7.362, Arterial Blood Partial Pressure CO2 33.9L, Arterial Blood Partial Pressure O2 95.3, Arterial Blood Total CO2 19.8L, Arterial Blood HCO3 18.8L, Arterial Blood Base Excess - 5.8L, Arterial Blood Oxygen Saturation 96.8 05/13/19 08:02: Total Creatine Kinase 206, Creatine Kinase MB 25.3H, Creatine Kinase MB Relative Index 12.28H, Troponin I 0.82#H CBC/BMP Laboratory Tests 05/13/19 05:47 Red Blood Count 3.64 L, Mean Corpuscular Volume 95.1, Mean Corpuscular Hemo globin 28.8, Mean Corpuscular Hemoglobin Concent 30.3 L, Red Cell Distribution Width 17.7 H, Lymphocytes # (Auto) , Monocytes # (Auto) , Anion Gap 12 Microbiology Microbiology 05/13/19 Gram Stain, Received Pending 05/13/19 Sputum Culture, Received Pending 05/09/19 Blood Culture - Preliminary, Resulted No Growth after 72 hours. All specime... 05/09/19 Blood Culture - Preliminary, Resulted No Growth after 72 hours. All specime... Zane Alexander MD May 13, 2019 09:32
[2019-05-13] MEDS: IPRATROPIUM 0.5MG/ALBUTEROL 2.5MG INH SOL UD 3ML (DUONEB)(J7620) NEB SCH ×3 (12:00→20:26)
--- NOTE | 2019-05-13 12:41 | REP ---
Portable chest, 06:16 a.m., single AP view with the patient supine, post intubation: Comparison is from through 32 a earlier today. There is an endotracheal tube with the tip at the aortic arch in satisfactory position, above the nishant. There are diffuse bilateral interstitial and alveolar infiltrates that appear worsened from the study earlier today. I suspect there is a right pleural effusion as an interval change. Cardiac size is enlarged, unchanged. There is tubing superimposed over the left upper abdomen, unchanged. Impression: ET tube is in satisfactory position. Worsening bilateral infiltrates. Cardiomegaly. Left upper abdomen tubing. Electronically Signed by Jude Castañeda MD 05/13/2019 12:32 P
[2019-05-13] MEDS ORDERED: SUCCINYLCHOLINE 100 MG/5 ML SYRINGE (J0330) ONE (14:37)
[2019-05-13] MEDS ORDERED: ETOMIDATE INJ 20MG/10ML VIAL ONE (14:37)
[2019-05-13 14:41] LABS: CK-MB VALUE MASS 37.9 NG/ML (<3.6); MB/CK RELATIVE INDEX 11.96 (< OR =4); TROPONIN I 4.46 NG/ML (< 0.10)
[2019-05-13] MEDS: PANTOPRAZOLE 40MG INJ (PROTONIX) (C9113) IV SCH (14:51)
--- NOTE | 2019-05-13 16:06 | CR ---
DATE OF CONSULTATION: 05/13/2019 I was asked by Dr. Stratton to emergently consult on Mr. Shipman of a consult emergently was consulted Mr. Shipman for acute hypercapnic respiratory failure leading to mechanical ventilation. HISTORY OF PRESENT ILLNESS: Mr. Shipman is a 48-year-old male with a complicated past medical history that will be detailed below who presented to [facility] on 05/09/2019 with increased confusion and drowsiness. He had recently been discharged from [facility] 2 days prior where he had been treated for hemorrhagic pancreatic cysts in splenic quynh infarct and the admission had been complicated by a CVA. His fiancee notes that just prior to discharge his fentanyl increased from 25 mcg to 50 mcg. It was thought that some of his difficulties may have bee related to his narcotics and those were discontinued. Neurology had seen and felt that he had experienced a large posterior division of the left middle cerebral artery ischemic stroke in mid March and that leading to aphasia but his drowsiness and confusion were aggravated with fentanyl and gabapentin and other sedatives. It was their recommendation to discontinue these narcotics and gradually decrease gabapentin. He was being watched closely for withdrawal symptoms. Apparently, he was doing well until this past evening when he started having intermittent sinus tachycardia with his rate in the 130s-140s. He complained of some chest pain and his oxygen saturations dropped. This episode resolved. He had a second episode in which a chest x-ray was done, which showed new bilateral patchy infiltrates. His urine output was also noted to be poor, so it was thought that perhaps he had nosocomial pneumonia and he was started on Rocephin and vancomycin. Additionally, BMP and calcitonin were done. His heart rate again jumped earlier this morning going when even higher in the 150s-160s, and he was very dyspneic and diaphoretic. He was tachypneic and his level of alertness was felt to be decreased and he was intubated. His arterial blood gas before intubation was 7.09/56/131, and it was completely reversed after being on the ventilator for less than an hour. PAST MEDICAL HISTORY: 1. Status post left middle cerebral large posterior division of left middle cerebral artery ischemic stroke 03/21/2019. a. Left parietal and posterior temporal lobes effective. b. Mixed aphasia. 2. CAD. a. Status post coronary artery bypass graft (CABG). b. Status post stents. 3. Dilated cardiomyopathy with an ejection fraction approximately 20% on recent echocardiogram this admission. 4. Hypertension. 5. Pulmonary hypertension, at least mild. 6. Obstructive sleep apnea. 7. History of prior CVA as well as recent CVA. 8. Chronic obstructive pulmonary disease (COPD) per chart. 9. Chronic migraines. 10. Dyslipidemia. 11. Depression. 12. Diabetes mellitus. 13. Gastroesophageal reflux disease (GERD). 14. Chronic pancreatitis with pseudocyst/IgG for related disease/severe protein calorie malnutrition. 15. Status post hemorrhagic pancreatic cysts for which he had two drains with one recently discontinued. 16. Splenic infarct with drain still in place. 17. History of Clostridium (C) difficile colitis. 18. History of osteomyelitis. 19. Status post implantable cardioverter defibrillator (ICD) placement with removal secondary to infection. a. Wearing vest as outpatient. 20. Status post cholecystectomy, tube exchange. 21. Status post vasectomy. 22. Status post partial sternal resection. 23. Status post sigmoid colectomy with end sigmoid colostomy, recent redo of colostomy. 24. Feeding tube. 25. History of tobacco usage, cessation 2 months ago. FAMILY HISTORY: His father secondary to suicide. His mother is ; no major illness. He has two bothers and one sister of unknown age or medical history. SOCIAL HISTORY: Mr. Shipman lives with his fiancee. He uses a walker and wheelchair for mobility. He has been disabled for over 10 years. He has two biologic children, one son and one daughter who are reportedly healthy. He was a previous smoker of two packs per day giving him a greater than 70 pack-year history. He quit 2 months ago. He does not drink alcohol or use illicit drugs. REVIEW OF SYSTEMS: What is noticed is obtained in the history of present illness (HPI). Otherwise, unattainable secondary to intubation. PHYSICAL EXAMINATION: General: Mr. Shipman is lying in bed synchronous with the ventilator. Vital Signs: Temperature 98.9, pulse in the 70s, respiratory rate 18. Blood pressure 120s/60s with a mean arterial pressure (MAP) in the 80s. SpO2 100% on the ventilator and FiO2 0.4. HEENT: Anicteric, pupils 2-3 mm and sluggish. Nares: Patent bilaterally. Moist mucosa. Oropharynx: Endoscopic gastrostomy (EG) tube and orogastric (OG) tube in place. Neck: Difficult to assess. Soft, supple. There appeared to be elevated jugular venous pulse (JVP). No cervical or supraclavicular lymphadenopathy. Chest: Normal shape. Lungs: Symmetric excursion, generalized diminished air entry, bilateral crackles approximately half the way up. No wheeze or rhonchi. Normal I:E. No accessory muscle usage or retractions. Cardiovascular: Regular rate and rhythm with a normal S1. S2. No murmur, rub or gallop appreciated. Abdomen: Diminished but present bowel sounds, soft, nondistended. No hepatosplenomegaly or masses appreciated. Extremities: Warm, well-perfused, without clubbing, cyanosis, or significant edema. Positive pedal pulses bilaterally. LABORATORY DATA: CBC from this morning showed a hemoglobin 10.5, hematocrit 34.6, platelet count 664,000, white blood cell count 31,400 with a differential of 70% neutrophils, 19% lymphocytes, 9% monocytes. Chemistry showed a sodium 136, potassium 5.3, chloride 105 with bicarbonate 19, anion gap 12, BUN 10, creatinine 1.1, glucose 361, calcium 9.5, phosphorus 3.7, magnesium 1.7, CK 11.4, troponin I of 0.29, BNP 34,909, albumin 2.9. Initial arterial blood gas was 7.10/56/131 with a measured saturation of 97% and a base excess of -12.8. A followup arterial blood gas approximately 45 minutes after intubation was 7.36/34/95 with a measured saturation of 96.8% and a base excess of -5.8. In reviewing his intake and output since admission, he is 1200 mL. Thus far today, he has 530 in and 500 out making him positive 39 mL. I reviewed his chest x-ray as well as the report. The initial x-ray taken around 2 o'clock in the morning showed enlarged cardiac silhouette and normal appearing pulmonary vascular shadows. Normal-appearing mediastinal region. There were bilateral increased markings. I reviewed his chest x-ray report following intubation. That x-ray showed marked increase in interstitial infiltrates as well as alveolar infiltrates compared to the study earlier in the morning. Cardiac silhouette remains enlarged. No consolidated regions. 1. Acute hypercapnic respiratory failure. Based on the findings, I suspect that this is secondary to pulmonary edema. Given the tachycardia in his family, his cardiac history I would be concerned about further insult. He does have risk factors for sepsis, though I suspect this is predominantly cardiac in nature. 2. Pulmonary edema. 3. Mildly elevated troponin. This could be stress but it also could represent a second cardiac event. His EKG taken acutely did not show any significant changes, so it is a difficult EKG to interpret. 4. CAD. 5. Status post hemorrhagic pancreatic cysts for which he has a drain. 6. Status post recent splenic infarct for which is drained. 7. Recent large posterior middle cerebral artery CVA leaving him with mixed aphasia. 8. Cardiomyopathy with ejection fraction of 20%. 9. Pulmonary hypertension at least mild. 10. Chronic hypertension. 11 obstructive sleep apnea. 12. Diabetes mellitus, type 2. 13. History of previous implantable cardioverter defibrillator placement with removal for infection; wears a vest as outpatient. 14. History of tobacco usage, recent cessation. 15. Chronic opioid usage. RECOMMENDATIONS: 1. Would begin gentle diuresis. 2. Agree with staying on antibiotics awaiting prolactin results and response to diuretics, so we do not feel this is infective in nature. 3. Will add lactate, but again that could be elevated from perfusion. 4. Would changes her to sliding scale insulin. 5. Will hold tube feeds for today but he has his feeding tube and will start this tomorrow. 6. Given his chronic history of opioid usage, we will need to monitor him for withdrawal. 7. Add proton pump inhibitor (PPI) for stress ulcer prophylaxis as well as make certain that he is on DVT prophylaxis. CRITICAL CARE TIME: 50 minutes not including procedure time.
[2019-05-13 16:33] LABS: HEMOGLOBIN 9.9 g/dl (13.5-17.5); MEAN CORPUSCULAR HEMOGLOBIN 29.7 pg (27.0-33.0); MEAN CORPUSCULAR VOLUME 90.1 fl (80.0-96.0); PLATELET COUNT, AUTOMATED 483 10^3/uL (150-450); RED BLOOD COUNT 3.33 10^6/uL (4.30-6.10); WHITE BLOOD COUNT 20.2 10^3/uL (4.0-10.0)
[2019-05-13] MEDS ORDERED: VANCOMYCIN HCL 1,000 MG, VIAL MATE ADAPTER 1 EACH in D5W 250 ML IV SCH (17:00)
[2019-05-13 17:15] LABS: BLOOD UREA NITROGEN 14 MG/DL (7-18); CALCIUM LEVEL 9.3 MG/DL (8.5-10.1); CARBON DIOXIDE LEVEL 25 MEQ/L (21-32); CHLORIDE LEVEL 106 MEQ/L (98-107); CREATININE FOR GFR 1.11 MG/DL (0.70-1.30); GLOMERULAR FILTRATION RATE > 60.0 (>56); GLUCOSE, FASTING 121 MG/DL (70-100); MAGNESIUM LEVEL 1.4 MG/DL (1.8-2.4); SODIUM LEVEL 139 MEQ/L (136-145)
[2019-05-13] MEDS: MAG SULF 1GM/100ML (MAG RUN) 1 GM in IV 1 EA IV SCH ×2 (18:18→19:49)
[2019-05-13 20:32] LABS: CK-MB VALUE MASS 25.7 NG/ML (<3.6); MB/CK RELATIVE INDEX 10.84 (< OR =4); TROPONIN I 8.99 NG/ML (< 0.10)
[2019-05-13] MEDS: FERROUS GLUCONATE 324 MG TAB PO SCH (21:00)
[2019-05-13] MEDS: ROSUVASTATIN 10 MG TAB (CRESTOR) PO SCH (21:29)
[2019-05-13] MEDS: ENTRESTO 24-26MG TABLET (SACUBITRIL/VALSARTAN) PO SCH (21:29)
[2019-05-13] MEDS: AMIODARONE HCL 150 MG in IV 1 EA IV SCH (21:30)
[2019-05-13] MEDS: ENOXAPARIN 60 MG/0.6 ML SYR (J1650) SC SCH (21:30)
[2019-05-13] MEDS: CLOPIDOGREL 75 MG TAB PO SCH (21:30)
[2019-05-14] VITALS (13 sets, daily range): BP systolic 97–139; BP diastolic 53–79; O2SAT 100
[2019-05-14] MEDS: IPRATROPIUM 0.5MG/ALBUTEROL 2.5MG INH SOL UD 3ML (DUONEB)(J7620) NEB SCH ×3 (00:32→08:14)
[2019-05-14] MEDS: PROPOFOL 1,000 MG in IV 1 EA IV SCH (02:41)
[2019-05-14] MEDS: cefTRIAXone SOD 1 GM in D5W MINI-BAG PLUS 50 ML IV SCH (04:02)
[2019-05-14 05:37] LABS: BASO # 0.1 10^3/uL (0.0-0.2); BASO % 0.5 % (0.0-1.0); EOS % 0.3 % (0.0-3.0); HEMATOCRIT 27.6 % (42.0-52.0); HEMOGLOBIN 8.8 g/dl (13.5-17.5); LYMPH % 19.7 % (24.0-44.0); MEAN CORPUSCULAR HEMOGLOBIN 28.7 pg (27.0-33.0); MEAN CORPUSCULAR HGB CONC 31.9 g/dl (32.0-36.5); MEAN CORPUSCULAR VOLUME 89.9 fl (80.0-96.0); MONO % 14.6 % (0.0-5.0); NEUTROPHILS % 64.6 % (36.0-66.0); PLATELET COUNT, AUTOMATED 472 10^3/uL (150-450); RED BLOOD COUNT 3.07 10^6/uL (4.30-6.10); WHITE BLOOD COUNT 15.4 10^3/uL (4.0-10.0)
[2019-05-14 05:47] LABS: ALBUMIN 2.6 GM/DL (3.2-5.2); ALT/SGPT 14 U/L (12-78); BILIRUBIN,TOTAL 0.3 MG/DL (0.2-1.0); BLOOD UREA NITROGEN 14 MG/DL (7-18); CARBON DIOXIDE LEVEL 26 MEQ/L (21-32); CHLORIDE LEVEL 104 MEQ/L (98-107); CHOLESTEROL LEVEL 118 MG/DL (< 200); CPK CREATINE PHOSPHOKINASE 126 U/L (39-308); CREATININE FOR GFR 1.07 MG/DL (0.70-1.30); GLOMERULAR FILTRATION RATE > 60.0 (>56); GLUCOSE, FASTING 120 MG/DL (70-100); LDH LACTATE DEHYDROGENASE 227 U/L (87-241); MAGNESIUM LEVEL 1.6 MG/DL (1.8-2.4); PHOSPHORUS LEVEL 3.2 MG/DL (2.5-4.9); SODIUM LEVEL 139 MEQ/L (136-145); TOTAL PROTEIN 6.3 GM/DL (6.4-8.2); TRIGLYCERIDES LEVEL 268 MG/DL (<150)
[2019-05-14 05:55] LABS: MONO # 2.3 10^3/uL (0.0-0.8)
[2019-05-14] MEDS: HumaLOG INSULIN (NovoLOG) PER UNIT SC SCH ×5 (05:55→21:00)
[2019-05-14 06:09] LABS: CK-MB VALUE MASS 11.6 NG/ML (<3.6); MB/CK RELATIVE INDEX 9.21 (< OR =4); TROPONIN I 8.42 NG/ML (< 0.10)
[2019-05-14] MEDS: KCL 10MEQ/100ML SWI (KRUN) 10 MEQ in IV 1 EA IV SCH ×2 (08:19→09:20)
[2019-05-14] MEDS: AMIODARONE HCL 150 MG in IV 1 EA IV SCH (08:21)
[2019-05-14] MEDS: ENOXAPARIN 60 MG/0.6 ML SYR (J1650) SC SCH (08:22)
[2019-05-14] MEDS: ENTRESTO 24-26MG TABLET (SACUBITRIL/VALSARTAN) PO SCH ×2 (08:26→21:30)
[2019-05-14] MEDS: GABAPENTIN 100 MG CAP PO SCH ×2 (08:26→21:28)
[2019-05-14] MEDS: FLUoxetine 20 MG CAP PO SCH (08:26)
[2019-05-14] MEDS: MAGNESIUM OXIDE 400 MG TAB (MAG-OX) PO SCH ×2 (08:29→21:29)
[2019-05-14] MEDS ORDERED: POTASSIUM CHLORIDE 10% LIQ 20 MEQ/15 ML UDC FT ONE (09:00)
--- NOTE | 2019-05-14 09:09 | CR ---
CARDIOLOGY CONSULTATION DATE OF CONSULTATION: 05/13/2019 REFERRING PHYSICIAN: Dr. Zane Alexander. INDICATION: Acute on chronic respiratory distress/respiratory failure/coronary artery disease (CAD) with acute troponin I elevation. HISTORY: This 48-year-old father of two, disabled resident of [place], lives with a girlfriend. He has an extremely complicated medical history including ischemic, hypertensive, and mitral valvular heart disease with abnormal EKG - left bundle branch block, heart failure (systolic and diastolic dysfunction) and prior ventricular tachycardia/ventricular fibrillation. Coronary artery bypass graft (CABG) times four in 2000 complicated by sternal osteomyelitis 2010. Has undergone left main and circumflex stenting February 2011 RCA stenting times four October 2015 with last cardiac catheterization October 21, 2015 performed [facility] because of recurrent chest pain and abnormal EKG with indeterminate troponin I showed occluded left anterior descending (LAD), mild disease, IM, patent circumflex stents, patent RCA stents, patent left internal mammary artery ([place]) to LAD, but occluded saphenous vein graft (SVG) to RCA and SVG to CX. Medical therapy was advised at that time. Underwent biventricular implantable cardioverter defibrillator (ICD) implant June 2016, [facility] Dr. Hernández for CHF left bundle branch block ([facility] [employer] [facility] [id number]). Required device extraction December 2018 due to MRSA infection. Last seen in our office January 29, 2019 following emergency room (ER) visit documenting deep venous thrombosis started on Eliquis at that time. Was reporting ease of fatigue very sedentary, but had been free of any chest pain, shortness of breath, palpitations or dizziness. Home blood pressures were ranging 90-100/60-70. At that time, medications included amiodarone 400 mg daily, carvedilol 6.25 mg twice a day, Entresto 24-26 mg tablets one tablet daily, Crestor 40 mg nightly and Plavix 75 mg daily with Eliquis 5 mg twice a day. Presented to the emergency room May 09, 2019 3 days following discharge from [facility] for hemorrhagic pancreatic cysts and splenic infarct (had been hospitalized for 2 months). Since his biventricular ICD was extracted, he has been wearing a LifeVest with the ultimate intend to having a new device implanted. At the time of his laparotomy in and pancreatic debridement in [facility], was found to have multiple abscesses intra-abdominally and has been on chronic antibiotic therapy. Has a feeding jejunostomy tube. May 09, 2019 was transported to the emergency room by his girlfriend because of significant change in mental status. He is on chronic fentanyl patch analgesic therapy for abdominal pain with ongoing abdominal drains. ER evaluation led to CT scan which showed evidence of acute to subacute infarct of the temporal and parietal lobe on the left side without hemorrhage. MRI of the brain without contrast May 10, 2019 showed subacute cortical infarct involving the left posterior temporal and left parietal lobes with some hemosiderin staining suggesting a degree of petechial hemorrhagic change. He was seen in consultation by neurology and felt that his cerebrovascular accident was last March and that his acute confusion and drowsiness likely was related to the combination of fentanyl, gabapentin and other sedatives. Continue Plavix and Eliquis was advised with discontinuing his fentanyl, sedatives and other narcotics and decrease in his gabapentin. Echocardiogram was requested May 10, 2019 and showed a moderately dilated, globally hypokinetic left ventricle with paradoxical septal motion and estimated left ventricular ejection fraction (LVEF) of 20%. Left atrium was at least moderately dilated with impairment of LV diastolic function and elevated estimated mean left atrial pressure. Right heart chambers did not appear to be grossly enlarged but was believed to be at least mild if not higher pulmonary hypertension with a dilated inferior vena cava (IVC) with reduced respiratory collapse. Valvular structures were believed to be normal with only trace to mild mitral insufficiency. No intracardiac mass was detected but felt to be certainly at increased risk of cardioembolic phenomenon. Had been receiving IV fluid with G-tube feeding. In hospital weights had increased from 56.8 kg to 63 kg yesterday. Pulse oximetry has had been monitored and normal on room air. At 5:28 a.m. this morning he apparently was complaining of chest pain and labored breathing. Chest x-ray showed gross cardiomegaly with bilateral infiltrates and pleural effusion. Examination showed sinus tachycardia with cachexia, respiratory rate in the 30s with O2 saturation in the 90s on supplemental oxygen by face mask. Arterial blood gas showed hypercapnia. He was given IV Lasix and intubated and placed on mechanical ventilator. Transferred to the intensive care unit. During the course the day, he has put out 2 liters generating a negative fluid balance of close to 1300 mL with improvement in oxygenation but remains intubated and on mechanical ventilator. A Pro-BNP level was obtained and showed a value of 34,909. Serial cardiac enzymes were obtained and these showed an elevation in CPK to peak so far of 317 with positive MB fraction and Troponin I level has reached a maximum of 8 this evening. Cardiology consultation was placed. Currently, the patient is intubated on mechanical ventilator with IV sedation (propofol IV infusion). No meaningful history can be obtained from the patient at this time. Appears comfortable on the ventilator. CORONARY RISK FACTORS: Male gender, age, history of hypertension, hypercholesterolemia, type 2 diabetes mellitus insulin dependent, hypercholesterolemia, former heavy smoker since age of 12 one pack per day until the recent past. Family history of premature coronary heart disease. OTHER PAST MEDICAL/SURGICAL HISTORY: History of interstitial lung disease. Cerebrovascular accident November 2016 and March 2019. Peptic ulcer disease with prior gastritis/duodenitis. Prior aspiration pneumonia with acute respiratory failure August 2018 requiring intubation and mechanical ventilation. Chronic pancreatitis. Recent laparotomy with debridement of necrotic pancreatic cyst and partial colectomy with ongoing intra-abdominal abscesses with abdominal drains and chronic antibiotic therapy. Deep venous thrombosis January 2019. History of renal insufficiency followed by Dr. Jean. Vasectomy 1994. Wrist surgery 1991. Colonoscopy July 2015 for gastrointestinal (GI) bleeding due to internal hemorrhoids with prolapse. Upper endoscopy July 2015 showing gastritis and patchy inflammation of the proximal duodenum. REVIEW OF SYSTEMS: Unable to obtain from the patient but has been quite sedentary and confused since his hospital discharge from [facility]. History of cough intermittently productive of whitish sputum. Effort intolerance/dyspnea but no orthopnea. Wearing LifeVest following removal of his biventricular ICD December 2018 because of sepsis. Has been unaware of any rhythm disturbance wearing a LifeVest but no discharges. Abdominal pain G-tube in situ. Nocturia. Abdominal pain. Intermittent headaches and lightheadedness and numbness of his feet. History of depression. Environmental allergies. All other systems review is negative. MEDICATIONS: At the time of his admission medications included: - carvedilol 12.5 mg twice a day - Eliquis 5 mg twice a day - Crestor 20 mg daily - Plavix 75 mg daily - ferrous gluconate 324 mg twice a day - oxycodone 5 mg every 6 hours as needed for pain - gabapentin 400 mg by mouth three times a day - fluoxetine 40 mg daily - hydroxyzine 10 mg three times a day - fentanyl patch 50 mcg topically every third day - Zofran 4 mg every 8 hours as needed nausea - Protonix 40 mg daily - senna 8.6 mg daily as needed as needed constipation - Nasogastric (NG) feeding 60 mL /hour for 12 hours daily - multivitamin one tablet daily - nitroglycerin 0.4 mg sublingual every 5 minutes as needed - Humalog insulin according to sliding scale before meals and bedtime - DuoNebs every 4 hours as needed dyspnea - magnesium oxide 400 mg by mouth daily - glucagon emergency vial 1 mg intramuscular (IM) as needed hypoglycemia ALLERGIES: None known. PHYSICAL EXAMINATION: CONSTITUTIONAL: Slim ill-looking, middle-aged male currently intubated and on mechanical ventilator. VITAL SIGNS: Heart rate 85 beats per minute and regular with occasional to frequent isolated preventricular contractions (PVCs). Blood pressure 107/65, respiratory rate 20 on ventilator with FiO2 of 04. Bedside oximetry was 100%. Afebrile. Weight this morning, 61 kg down from 63.2 kg yesterday. Height 60 inches, body mass index (BMI) 20.4. EYES: Slightly pale but nonicteric. No xanthelasma. ENT/MOUTH: Endotracheal tube in situ and normal oral moisture. No central cyanosis. NECK: Trachea midline. Neck veins currently did not appear to be elevated. No thyromegaly. RESPIRATORY: Symmetrical chest expansion with ventilator. Fairly symmetrical air entry with clear upper lobes but some scattered inspiratory rales both lower lobes. No expiratory wheezes. CARDIOVASCULAR: Apical impulse displaced lateral to the midclavicular line. Heart sounds are somewhat distant but obvious S3 gallop. No audible murmur or rub. Normal carotid upstrokes with reduced volume but no bruits. Upper extremity pulses and femoral pulses were symmetrical normal. Pedal pulses were slightly reduced to bilaterally. No current dependent edema. No varicose veins. EXTREMITIES: No clubbing peripheral cyanosis or splinter hemorrhages. GI: NG tube and abdominal drains in situ. Currently has normal bowel sounds. No apparent hepatosplenomegaly. MUSCULOSKELETAL: Sedated as mentioned. No obvious joint deformities. Some proximal muscle wasting. Normal tone. SKIN: Slight pallor. Healing surgical incisions, prior ICD incision left subclavian region. NEURO/PSYCH: Not possible to evaluate at this time. INVESTIGATIONS: Blood work this morning showed a hemoglobin of 9.9 up from the level of 7.4 May. White blood cell count 20,000 down from 31,000 earlier this morning. Platelet count is elevated at 483 three. Admission PT/INR was 18/1.5 with PTT 39.6. Last arterial blood gas this morning is 645. Intubated on mechanical ventilator showed a pH of 7.36, pCO2 of 33.9 (down from 56 an hour earlier), pO2 of 95. Last electrolytes at 4:20 p.m. showed electrolyte balance. BUN was 14, creatinine 1.1, random glucose 121, magnesium level was low at 1.4. Serum calcium 9.3. Last albumin this morning measured 2.9. Last liver function yesterday showed normal. SGOT, SGPT and alkaline phosphatase. Serum ferritin on admission was 351. Ultra sensitive TSH on admission was normal at 1.2. Urinalysis on admission was benign showing no glucosuria or proteinuria. Chest x-ray this morning reviewed independently shows obvious cardiomegaly with increased interstitial markings and pulmonary vascular congestion. Endotracheal (ET) tube in proper position. Right pleural effusion. Feeding tube left upper abdomen. EKGs: EKG on admission May 09, 2019 showed sinus rhythm at 73 bpm. Left atrial conduction disturbance, left bundle branch block and was unchanged from February 15, 2019. Tracing taken earlier this morning shows sinus tachycardia at 137 bpm, left bundle branch block and more prominent repolarization abnormalities rate related. IMPRESSION/PLAN: 1. Acute on chronic respiratory distress: Longstanding smoker with the previous interstitial fibrosis. Could not rule out a pneumonitis but has not positive fluid balance since admission and radiographic features of an acute pulmonary congestion. Has diuresed well with IV Lasix. Improved respiratory status from earlier today. Remains intubated on a mechanical ventilator. 2. Heart failure (systolic and diastolic dysfunction/acute on chronic): Longstanding history of heart failure and left ventricular dysfunction with last left ventricular ejection fraction prior to extraction of his biventricular ICD was 26 - 30% earlier this year. Echocardiogram read by Dr. Bundy earlier this admission again shows a significantly dilated and globally hypokinetic left ventricle with paradoxical septal motion due to left bundle branch block and again severe impairment of global resting systolic function. At least moderately dilated left atrium with Doppler findings in keeping with an elevated mean left atrial pressure and likely severe pulmonary hypertension. Currently not receiving IV fluid beyond IV antibiotic therapy (ceftriaxone and vancomycin). Chemistry today shows electrolyte balance except for hypomagnesemia with normal renal function. I would recommend withholding further IV Lasix in an attempt to resume his Entresto vasodilator therapy. Currently, not receiving his carvedilol, but will consider reintroducing this agent once we prove he tolerates his Entresto. Has received supplemental magnesium IV. 3. Ventricular tachycardia/ventricular fibrillation/prior biventricular ICD in situ/LifeVest: Currently not wearing his life vest and curiously his amiodarone had been discontinued. Presently having occasional frequent isolated unifocal PVCs but no complex ventricular arrhythmia. I have reordered amiodarone planning to use 150 mg IV infusion every 12 hours until he is extubated and can take medications orally. Continues on close EKG monitoring. 4. Abnormal EKG/left bundle branch block: As documented even prior to extraction of his biventricular device, the ejection fraction had been deteriorating since original implant in 2016. It is hard to believe he was able to tolerate the recent laparotomy and pancreatic cyst debridement. At this point, I believe it is doubtful that he will have a new biventricular/cardiac resynchronization device implanted in light of his complicated intra-abdominal abscesses and risk of recurrent device infection. 5. Coronary artery disease ([place] vessel/status post CABG/status post multiple coronary stent placements/acutely elevated troponin I level: On his presentation earlier today he apparently had been complaining of chest pain with his shortness of breath. His EKG showed more marked repolarization abnormalities likely related to his rapid rate. I do not believe an acute ischemic event was the trigger for his decompensation. I suspect his Troponin I elevation is related to "demand ischemia" rather than acute coronary thrombosis. At this point, I have not resumed his beta-renita therapy but with him intubated will switch his Eliquis to Lovenox 60 mg subcu every 12 hours temporarily but continue his Plavix and Crestor therapies. Followup EKG and Troponin I level will be obtained in the morning. Remarkably he still wishes aggressive intervention despite his very complicated medical history and very guarded prognosis. I will plan on following him temporarily with you here in hospital. Appreciate the opportunity to participate in his care.
--- NOTE | 2019-05-14 09:15 | REP ---
Portable chest x-ray: Single view. History: Intubated. Comparison study: May 13, 2019. Findings: Monitoring electrodes are seen. Endotracheal tube is noted in good position at the level of proximal clavicles. There is a drainage catheter looped inferiorly on the left projecting below the diaphragm unchanged. This was seen on recent CT study to be within the spleen. This is unchanged. There is some residual blunting of the right lateral pleural angle but pleuroparenchymal changes are improved. Pulmonary vascular congestion and interstitial edema pattern has improved. Electronically Signed by Everett Kent MD 05/14/2019 09:27 A
--- NOTE | 2019-05-14 09:16 | IPNPDOC ---
Subjective Date Seen The patient was seen on 05/14/19. Subjective Chief Complaint/HPI alert, denies discomfort still intubated but looks comfortable. General: Denies: Chills Cardiovascular: Denies: Chest Pain Gastrointestinal: Denies: Nausea, Abdominal Pain Psych: Reports: Mood Normal Objective Physical Examination General Exam: Positive: No Acute Distress; Negative: Alert, Cooperative Eye Exam: Positive: PERRLA; Negative: Sclera icteric ENT Exam: Positive: Mucous membr. moist/pink Neck Exam: Positive: Supple; Negative: thyromegaly, Lymphadenopathy Chest Exam: Positive: Normal air movement, Rales (fairly clear.); Negative: Wheezing Heart Exam: Positive: Rate Normal, Normal S1, Normal S2; Negative: Murmurs Abdomen Exam: Positive: Normal bowel sounds, Soft; Negative: Tenderness (+ colostomy, drain coming from old ostomy site. + PIERRE drain, + PEG, wounds appear clean and dry.) Extremity Exam: Negative: Edema Skin Exam: Positive: Nl turgor and temperature Neuro Exam: Positive: Strength at 5/5 X4 ext; Negative: Normal Speech (+ expressive dysphasia, but improved he still has significant word finding difficulty, but he CAN eventually get out what he wants to say) Psych Exam: Positive: Mental status NL (as well as can be inferred while intubated), Other (intubated and unresponsive with Propafol infusing.) Assessment /Plan Problems (1) Systolic and diastolic CHF, acute on chronic Status: Acute Response to Treatment: Improving Problem Text: 05/14: tolerated intubation well. no sedation now and looks comfortable. Troponin did go up c/w with CO or demand ischemia. Was seen in consultation by Dr. Garcia last night. intubated and improving since positive pressure ventilation. troponin is up a little, will trend. certainly new CO is possible. (2) Dilated cardiomyopathy Status: Chronic Response to Treatment: Stable Problem Specific Plan: Monitor Clinically Problem Text: 05/14: CHF improving. No significant tachyarrhythmias since yesterday Asymptomatic, wears lifevest as an outpt. 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 (3) CVA (cerebral vascular accident) Status: Acute Response to Treatment: Stable, Improving Discussed With: Nurse, Patient, Family with Pt Consent Problem Specific Plan: Consult Specialist, Monitor Clinically Problem Text: 05/14: alert, regards examiner, communicates effectively with gestures. 05/13: overnight intubated due to acutely increasing dyspnea. on propofol at this time. Likely subacute as pt with R hemiparesis, expressive aphasia, R facial droop documented 03/27 at [facility] while inpt. He is improving off of fentanyl and with a decreased dose of gabapentin today per Neuro. I discussed totally discontinuing the gabapentin today vs tomorrow and his prefers tomorrow. The rationale is that he is experiencing some withdraw side effects already. Additionally his mentation is much clearer already. Maybe giving his brain/system more time to adjust is a vivas idea. In reviewing the order history it appears that the EEG has not actually been ordered. I will defer to neurology to see if it is needed at this time. (4) Opioid withdrawal Status: Acute Problem Specific Plan: Monitor Clinically Problem Text: He has a long history of being on opioid pain medications. His fentanyl patch was removed about 48h ago because of decreased mentation. He seems to be doing ok without it, but is having increased nausea today. I increased his Zofran frequency. Will monitor carefully. I think that while we have him inpatient, this is a great time to wean him completely off of the opioids. (5) Anemia Status: Acute Response to Treatment: Worse Discussed With: Nurse, Patient, Family with Pt Consent Problem Specific Plan: Repeat Labs Problem Text: Stable at 8.8 after his 1 unit transfusion. Will continue to monitor. (6) Splenic abscess Status: Acute Response to Treatment: Stable Discussed With: Nurse, Patient Problem Specific Plan: Monitor Clinically, Repeat Labs Problem Text: 05/14: colostomy functioning. also has drain from pancreas and spleen. Once acute CHF/respiratory failure process is resolved consider surgical consult re drains and when to remove. Pt with percutaneous drain placed within abscess, this was placed at [facility]. (7) General weakness Status: Acute Problem Text: 05/14: will resume rehab services when ready. Inturrupted due to intubation/respiratory failure. He has therapy orders. (8) CAD (coronary artery disease) Status: Chronic Response to Treatment: Stable, Worse Problem Specific Plan: Monitor Clinically Problem Text: 05/14: elevation in Troponin c/w cardiac injury Acute CO vs demand ischemia. Cardiology consulted. Will be able to resume po meds when extubated and as blood pressure allows. Plan/VTE VTE Prophylaxis Ordered?: Yes Plan Therapy: PT, OT, Speech (will need all three services when he is discharge) Anticipated Discharge: Sub Acute Rehab (may be a reasonably consideration for him, but not sure what the official plan is yet) VS, I&O, 24H, Fishbone Vital Signs/I&O Vital Signs Date Time Temp Pulse Resp B/P (MAP) Pulse Ox O2 Delivery O2 Flow Rate FiO2 05/14/19 08:15 87 17 98 40 05/14/19 08:00 99.8 108/68 (81) 05/14/19 02:41 Ventilator 05/13/19 04:00 3.0 I&O- Last 24 Hours up to 6 AM 05/14/19 06:00 Intake Total 1051.6 ml Output Total 3075 ml Balance -2023.4 ml Laboratory Data 24H LABS Laboratory Tests 2 05/13/19 12:42: Bedside Glucose (Misc Panel) 179H 05/13/19 13:58: Lactic Acid Level 1.7, Total Creatine Kinase 317H, Creatine Kinase MB 37.9H, Creatine Kinase MB Relative Index 11.96H, Troponin I 4.46#*H 05/13/19 16:21: Anion Gap 8, Glomerular Filtration Rate > 60.0, Blood Urea Nitrogen 14, Creatinine 1.11, Sodium Level 139, Potassium Level 4.0#, Chloride Level 106, Carbon Dioxide Level 25, Calcium Level 9.3, Magnesium Level 1.4L 05/13/19 16:22: Nucleated Red Blood Cells % (auto) 0.0 05/13/19 17:57: Bedside Glucose (Misc Panel) 158H 05/13/19 19:52: Total Creatine Kinase 237, Creatine Kinase MB 25.7H, Creatine Kinase MB Relative Index 10.84H, Troponin I 8.99#*H 05/13/19 23:55: Bedside Glucose (Misc Panel) 118H 05/14/19 05:02: Total Creatine Kinase 126, Creatine Kinase MB 11.6H, Creatine Kinase MB Relative Index 9.21H, Troponin I 8.42*H, Immature Granulocyte % (Auto) 0.3, White Blood Count 15.4H, Red Blood Count 3.07L, Hemoglobin 8.8L, Hematocrit 27.6L, Mean Corpuscular Volume 89.9, Mean Corpuscular Hemoglobin 28.7, Mean Corpuscular Hemoglobin Concent 31.9L, Red Cell Distribution Width 17.7H, Platelet Count 472H, Neutrophils (%) (Auto) 64.6, Lymphocytes (%) (Auto) 19.7L, Monocytes (%) (Auto) 14.6H, Eosinophils (%) (Auto) 0.3, Basophils (%) (Auto) 0.5, Neutrophils # (Auto) 10.0H, Lymphocytes # (Auto) 3.0, Monocytes # (Auto) 2.3H, Eosinophils # (Auto) 0.0, Basophils # (Auto) 0.1, Nucleated Red Blood Cells % (auto) 0.0, Anion Gap 9, Glomerular Filtration Rate > 60.0, Blood Urea Nitrogen 14, Creatinine 1.07, Sodium Level 139, Potassium Level 3.0#L, Chloride Level 104, Carbon Dioxide Level 26, Calcium Level 9.0, Phosphorus Level 3.2, Aspartate Amino Transf (AST/SGOT) 45H, Alanine Aminotransferase (ALT/SGPT) 14, Lactate Dehydrogenase 227, Alkaline Phosphatase 76, Total Bilirubin 0.3, Triglycerides Level 268H, Cholesterol Level 118, Total Protein 6.3L, Albumin 2.6L, Magnesium Level 1.6L, Albumin/Globulin Ratio 0.70L CBC/BMP Laboratory Tests 05/13/19 16:21 Calcium Level 9.3 05/13/19 16:22 Red Blood Count 3.33 L, Mean Corpuscular Volume 90.1, Mean Corpuscular Hemoglobin 29.7, Mean Corpuscular Hemoglobin Concent 33.0, Red Cell Distribution Width 17.3 H 05/14/19 05:02 Calcium Level 9.0, Red Blood Count 3.07 L, Mean Corpuscular Volume 89.9, Mean Corpuscular Hemoglobin 28.7, Mean Corpuscular Hemoglobin Concent 31.9 L, Red Cell Distribution Width 17.7 H, Neutrophils (%) (Auto) 64.6, Lymphocytes (%) (Auto) 19.7 L, Monocytes (%) (Auto) 14.6 H, Eosinophils (%) (Auto) 0.3, Basophils (%) (Auto) 0.5, Neutrophils # (Auto) 10.0 H, Lymphocytes # (Auto) 3.0, Monocytes # (Auto) 2.3 H, Eosinophils # (Auto) 0.0, Basophils # (Auto) 0.1, Phosphorus Level 3.2, Aspartate Amino Transf (AST/SGOT) 45 H, Alanine Aminotransferase (ALT/SGPT) 14, Lactate Dehydrogenase 227, Total Creatine Kinase 126, Alkaline Phosphatase 76, Total Bilirubin 0.3, Triglycerides Level 268 H, Cholesterol Level 118, Total Protein 6.3 L, Albumin 2.6 L Microbiology Microbiology 05/13/19 Gram Stain - Final, Complete 05/13/19 Sputum Culture - Final, Complete 05/09/19 Blood Culture - Preliminary, Resulted No Growth after 72 hours. All specime... 05/09/19 Blood Culture - Preliminary, Resulted No Growth after 72 hours. All specime... Zane Alexander MD May 14, 2019 09:16
[2019-05-14 09:49] LABS: ABG BASE EXCESS 0.6 (-2.0-2.0); ABG O2 SATURATION 98.6 % (95.0-99.0); ABG PARTIAL PRESSURE O2 119.1 mmHg (75.0-100.0); ABG TOTAL CO2 25.1 MEQ/L (22.0-29.0); ABG pH (ARTERIAL) 7.467 UNITS (7.350-7.450)
[2019-05-14] MEDS ORDERED: MAG SULF 1GM/100ML (MAG RUN) 1 GM in IV 1 EA IV ONE (10:00)
--- NOTE | 2019-05-14 16:28 | CCN ---
DATE:05/14/2019 CRITICAL CARE NOTE Mr. Shipman remains critically ill with acute hypercapnic respiratory failure leading to mechanical ventilation. This appeared to be secondary to pulmonary edema. He also had increasing troponins. He has been evaluated by the cardiology service who made adjustments in some of his medications. This morning it was clarified with Dr. Giordano that he does not have any indication, at this time, for a transesophageal echocardiogram (TE echo). On his sedation holiday, Mr. Shipman is following commands and indicates that he would like to be extubated. OBJECTIVE: PHYSICAL EXAMINATION: General: Mr. Shipman is lying in bed in no acute distress synchronous with the ventilator. He is following commands. Vital signs: Temperature 99.8, which is his maximum temperature (T max), pulse 87, respiratory rate 17, blood pressure 108/60 with a mean arterial pressure (MAP) of 81, SpO2 98% on an FiO2 of 0.4. HEENT: Anicteric, pupils equal, round, and reactive to light and accommodation. Nares: Patent bilaterally. Oropharynx: Endotracheal (ET) tube and orogastric (OG) tube in place. Neck: Supple, without thyromegaly or masses. Trachea is midline. Without jugular venous distention (JVD). Lymph: Cervical or supraclavicular lymphadenopathy. Lungs:. Good air entry. No wheeze, rhonchi or significant crackle on tidal excursion. Normal I:E. No accessory muscle usage or retractions. Cardiovascular: Regular rate and rhythm with a normal S1, S2. No murmur, rub or gallop appreciated. Abdomen: Positive bowel sounds, soft, nondistended, no hepatosplenomegaly or masses appreciated. Intact ostomy. Extremities: Warm and perfused. Palpable pedal pulses bilaterally, though faint. No cyanosis or clubbing. LABORATORY DATA: CBC from this morning showed a hemoglobin of 8.8, hematocrit 27.6, platelet count 472,000, white blood cell count 15,400 with a differential of 65% neutrophils, 20% lymphocytes, and 15% monocytes. Chemistry shows sodium 139, potassium 3.0, chloride 104, bicarbonate 26, anion gap 9, BUN 14, creatinine 1.1, glucose 120, calcium 9.0, phosphorus 3.2, magnesium 1.6, total bilirubin 0.3, AST 45, ALT 14, alkaline phosphatase 76, LDH 227, CK 126, total protein 6.3, albumin 2.3. CK-MB this morning was 11.6 and troponin was 8.42. Peak CK was 233 with a CK-MB of 25.7 and troponin I of 8.99 at 1952 hours yesterday. Yesterday's intake and output (I and O) showed 1582 in and 2575 out, making him negative 993. Thus far today 425 in and 1200 out, making him negative 775. Weight 62.6 kg. I reviewed his chest x-ray as well as the report this morning. That x-ray showed normal cardiac silhouette, which is a decrease from previous films. Normal appearing mediastinum and hilar regions. No acute infiltrate. Markedly decreased interstitial and alveolar infiltrates. Endotracheal tube is in good position. IMPRESSION: 1. Acute hypercapnic respiratory failure secondary to pulmonary edema. 2. Pulmonary edema secondary to acute on chronic congestive heart failure (systolic/diastolic). 3. Elevated troponin, cardiology following. 4. Coronary artery disease. 5. Recent large posterior middle cerebral artery CVA leaving him with mixed aphasia. 6. Cardiomyopathy with ejection fraction of 20%. 7. Pulmonary hypertension, at least mild. 8. Chronic hypertension. 9. History of obstructive sleep apnea. 10. Diabetes mellitus, type 2. 11. Chronic opioid . 12. Stress ulcer prophylaxis in place with proton pump inhibitor. 13. Deep vein thrombosis (DVT) prophylaxis: Fully anticoagulated with Lovenox. RECOMMENDATIONS: 1. Will assess for extubation. 2. If his procalcitonin is normal today, would discontinue antibiotics. 3. Appreciate cardiology input. 4. At this time, cardiology does not feel that a TE echo is indicated and therefore, as noted above, will proceed with extubation. If procedure had been planned today, we would have kept him intubated until the procedure was over. ADDENDUM: Mr. Shipman was placed on a weaning trial with a pressure support of 5 and a PEEP of 5. On this trial, he did very well with a rapid shallow breathing index in the 20s, which predicts success. An arterial blood gas on these settings was 7.48/34/119 with a measured saturation of 97%. Because of his cardiac history and recent history of pulmonary edema and elevated troponins, I felt it was best to completely unload the chest, and, therefore, he was placed on a T-piece trial. His oxygen was kept on the same level as it had been on his pressure support trial, which was 0.4. He was on this trial for 15 minutes. He had no evidence of desaturation. His examination remained normal without evidence of crackles. No returns to the ET tube. He was then extubated. After extubation, he indicates that he is comfortable. His examination again shows no crackles. It did show a few rhonchi that cleared with cough. CRITICAL CARE TIME: 40 minutes not including procedure time.
[2019-05-14] MEDS: PANTOPRAZOLE 40MG INJ (PROTONIX) (C9113) IV SCH (17:11)
--- NOTE | 2019-05-14 20:01 | IPN ---
DATE: 05/14/2019 CARDIOLOGY PROGRESS NOTE SUBJECTIVE: Has had a remarkable day, extubated and actually ambulated with physical therapy around the [place] without chest pain, shortness of breath or dizziness. Currently wanting to go home. OBJECTIVE: Slim, somewhat ill-looking middle-aged male lay comfortably. Current heart rate 110 beats per minute, blood pressure 136/76 supine, respiratory rate 18 per minute, oxygen (O2) saturation 99% on supplemental oxygen by nasal prongs. Afebrile. Curiously, though his fluid balance was negative, recorded weight is actually up a kilogram from yesterday, questionable. Normal oral moisture. No central cyanosis. Trachea midline. Neck veins were approximately 6 cm above the sternal angle. Significantly improved air entry over both lung patterson with few inspiratory rales over the right lower lobe posteriorly. No dependent edema at this time. hat block maker: This shows sinus tachycardia with isolated premature ventricular contractions (PVCs). Chest x-ray: Portable upright study taken earlier today, reviewed independently, shows significant clearing of interstitial infiltrates and reduction in pulmonary venous congestion. Even his heart size appears to be smaller. LABORATORY DATA: Hemoglobin today 8.8. White blood cell count is down to 15.4 thousand from 20,000 yesterday. Platelet count is essentially stable at 472,000. Arterial blood gas this morning showed a pH of 7.47, pCO2 of 34, O2 of 119. Electrolytes this morning showed an impressive hypokalemia of 3.0, magnesium level was slightly low at 1.6, BUN stable at 14, creatinine stable at 1.07, fasting glucose 120. Albumin 2.6. Troponin I level was 8.4 with CPK down to 126. IMPRESSION/PLAN: 1. Heart failure (systolic and diastolic dysfunction/acute on chronic): Had a remarkable response to diuretic therapy yesterday and appears to be tolerating Entresto quite well. Magnesium and potassium supplements have been ordered. I have increased his magnesium oxide to 400 mg twice a day and temporarily have given him KCl 20 mEq by mouth four times a day. We will monitor his electrolytes closely. With his somewhat rapid heart rate, I have also introduced low dose metoprolol succinate 25 mg daily with first dose to be given tonight. No change has been made to his current Entresto 24-26 mg by mouth twice a day. 2. Ventricular tachycardia/ventricular fibrillation/prior biventricular implantable cardioverter defibrillator (bi-v ICD) in situ: Despite his impressive electrolyte imbalance, has had no more than isolated PVCs. Now he is currently extubated, our plan is to order his amiodarone by mouth. We have also given additional potassium and magnesium supplement for the time being and introduced low dose metoprolol succinate. 3. 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 Should tolerate the combination of metoprolol and amiodarone without problem but remains on monitor for the time being. 4. Coronary artery disease ([place] vessel)/status post CABG/status post multiple coronary stents/acutely elevated troponin I level: As mentioned, his Troponin I elevation was believed to be related to "demand ischemia" rather than acute coronary thrombosis. Now he is extubated, his Lovenox will be discontinued and he will be started back on his Eliquis 5 mg twice a day along with his Plavix. Will also be on protective Entresto and his Crestor therapies. I have tried to explain to both he and his girlfriend the crucial importance of at least temporarily staying in hospital due to his multiple serious medical problems and present positive response to aggressive measures. I am not convinced he or his girlfriend understand the severity of his current condition.
[2019-05-14] MEDS: APIXABAN 5 MG TAB (ELIQUIS) PO SCH (21:28)
[2019-05-14] MEDS: AMIODARONE 200 MG TAB (PACERONE) PO SCH (21:29)
[2019-05-14] MEDS: CLOPIDOGREL 75 MG TAB PO SCH (21:29)
[2019-05-14] MEDS: POTASSIUM CHLORIDE 10 MEQ SR TABLET PO SCH (21:30)
[2019-05-14] MEDS: ROSUVASTATIN 10 MG TAB (CRESTOR) PO SCH (21:30)
[2019-05-14] MEDS: METOPROLOL SUCC *XL* 25MG TAB (TopROL *XL*) PO SCH (21:31)
[2019-05-15] VITALS (8 sets, daily range): BP systolic 117–137; BP diastolic 69–87
[2019-05-15] MEDS: cefTRIAXone SOD 1 GM in D5W MINI-BAG PLUS 50 ML IV SCH (03:59)
[2019-05-15 05:10] LABS: BASO # 0.1 10^3/uL (0.0-0.2); EOS # 0.4 10^3/uL (0.0-0.5); EOS % 2.8 % (0.0-3.0); HEMATOCRIT 30.1 % (42.0-52.0); HEMOGLOBIN 9.6 g/dl (13.5-17.5); LYMPH # 2.4 10^3/uL (1.5-5.0); LYMPH % 17.6 % (24.0-44.0); MEAN CORPUSCULAR HEMOGLOBIN 28.8 pg (27.0-33.0); MEAN CORPUSCULAR HGB CONC 31.9 g/dl (32.0-36.5); MEAN CORPUSCULAR VOLUME 90.4 fl (80.0-96.0); MONO % 17.7 % (0.0-5.0); NEUTROPHILS # 8.1 10^3/uL (1.5-8.5); NEUTROPHILS % 60.5 % (36.0-66.0); PLATELET COUNT, AUTOMATED 450 10^3/uL (150-450); RED BLOOD COUNT 3.33 10^6/uL (4.30-6.10); WHITE BLOOD COUNT 13.4 10^3/uL (4.0-10.0)
[2019-05-15 05:13] LABS: MONO # 2.4 10^3/uL (0.0-0.8)
[2019-05-15 05:38] LABS: ALBUMIN 2.7 GM/DL (3.2-5.2); ALT/SGPT 14 U/L (12-78); BILIRUBIN,TOTAL 0.3 MG/DL (0.2-1.0); BLOOD UREA NITROGEN 7 MG/DL (7-18); CALCIUM LEVEL 9.3 MG/DL (8.5-10.1); CARBON DIOXIDE LEVEL 24 MEQ/L (21-32); CHLORIDE LEVEL 108 MEQ/L (98-107); CHOLESTEROL LEVEL 122 MG/DL (< 200); CK-MB VALUE MASS 2.4 NG/ML (<3.6); CPK CREATINE PHOSPHOKINASE 69 U/L (39-308); CREATININE FOR GFR 0.88 MG/DL (0.70-1.30); GLOMERULAR FILTRATION RATE > 60.0 (>56); GLUCOSE, FASTING 179 MG/DL (70-100); LDH LACTATE DEHYDROGENASE 208 U/L (87-241); MAGNESIUM LEVEL 1.6 MG/DL (1.8-2.4); MB/CK RELATIVE INDEX 3.48 (< OR =4); PHOSPHORUS LEVEL 1.6 MG/DL (2.5-4.9); POTASSIUM SERUM 3.4 MEQ/L (3.5-5.1); SODIUM LEVEL 139 MEQ/L (136-145); TOTAL PROTEIN 6.6 GM/DL (6.4-8.2); TRIGLYCERIDES LEVEL 220 MG/DL (<150); TROPONIN I 4.39 NG/ML (< 0.10)
[2019-05-15] MEDS: HumaLOG INSULIN (NovoLOG) PER UNIT SC SCH ×4 (07:39→21:00)
--- NOTE | 2019-05-15 08:08 | ECGEPIP ---
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
--- NOTE | 2019-05-15 08:09 | ECGEPIP ---
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
--- NOTE | 2019-05-15 08:21 | ECGEPIP ---
[facility] Test Date: 2019-05-14 Pat Name: SERENITY RIVER Department: Room: [place] [address] Gender: Male Oncology Rn: KRIS : 1970 Requested By: iVkas Garcia Order Number: [id number] Reading MD: Kun Bundy Measurements Intervals [place] Rate: 88 P: 70 [place]: 150 QRS: 7 QRSD: 181 T: 36 QT: 462 QTc: 561 Interpretive Statements SINUS RHYTHM POSSIBLE LEFT ATRIAL ENLARGEMENT LEFT BUNDLE BRANCH BLOCK HR IS MUCH SLOWER SINCE 05/13/19, PATIENT IS BACK IN Normal sinus rhythm Electronically Signed on 05-15-2019 8:20:53 EDT by Kun Bundy
[2019-05-15] MEDS: METOPROLOL SUCC *XL* 25MG TAB (TopROL *XL*) PO SCH (08:35)
[2019-05-15] MEDS: PANTOPRAZOLE 40MG TAB (PROTONIX) PO SCH (08:35)
[2019-05-15] MEDS: APIXABAN 5 MG TAB (ELIQUIS) PO SCH ×2 (08:35→21:22)
[2019-05-15] MEDS: FLUoxetine 20 MG CAP PO SCH (08:35)
[2019-05-15] MEDS: MAGNESIUM OXIDE 400 MG TAB (MAG-OX) PO SCH ×2 (08:35→21:21)
[2019-05-15] MEDS: POTASSIUM CHLORIDE 10 MEQ SR TABLET PO SCH ×4 (08:35→21:21)
[2019-05-15] MEDS: ENTRESTO 24-26MG TABLET (SACUBITRIL/VALSARTAN) PO SCH ×2 (08:36→21:20)
[2019-05-15] MEDS: GABAPENTIN 100 MG CAP PO SCH ×2 (08:36→21:22)
[2019-05-15] MEDS: AMIODARONE 200 MG TAB (PACERONE) PO SCH ×2 (08:36→21:22)
[2019-05-15] MEDS ORDERED: ENTR1TAB PO (10:38)
--- NOTE | 2019-05-15 10:44 | IPNPDOC ---
Subjective Date Seen The patient was seen on 05/15/19. Subjective Chief Complaint/HPI no pain, no dyspnea. Constitutional: Denies: Chills, Night Sweats ENT: Denies: Head Aches Pulmonary: Denies: Cough Cardiovascular: Denies: Chest Pain, Orthopnea Gastrointestinal: Denies: Nausea, Abdominal Pain Genitourinary: Denies: Dysuria Hematologic: Denies: Bruising Psych: Reports: Mood Normal Objective Physical Examination General Exam: Positive: No Acute Distress; Negative: Alert, Cooperative Eye Exam: Positive: PERRLA; Negative: Sclera icteric ENT Exam: Positive: Mucous membr. moist/pink Neck Exam: Positive: Supple; Negative: thyromegaly, Lymphadenopathy Chest Exam: Positive: Normal air movement, Rales (fairly clear.); Negative: Wheezing Heart Exam: Positive: Rate Normal, Normal S1, Normal S2; Negative: Murmurs Telemetry: Positive: No significant arrhythmia Abdomen Exam: Positive: Normal bowel sounds, Soft; Negative: Tenderness (+ colostomy, drain coming from old ostomy site. + PIERRE drain, + PEG, wounds appear clean and dry.) Extremity Exam: Negative: Edema Skin Exam: Positive: Nl turgor and temperature Neuro Exam: Positive: Strength at 5/5 X4 ext; Negative: Normal Speech (+ expressive dysphasia, but improved he still has significant word finding difficulty, but he CAN eventually get out what he wants to say) Psych Exam: Positive: Mental status NL (as well as can be inferred while intubated), Other (intubated and unresponsive with Propafol infusing.) Assessment /Plan Problems (1) Systolic and diastolic CHF, acute on chronic Status: Acute Response to Treatment: Improving Problem Text: 05/15: tolerating Entresto well at this point. no dyspnea or cp. still weak but significant improvment. 05/14: tolerated intubation well. no sedation now and looks comfortable. Troponin did go up c/w with AZ or demand ischemia. Was seen in consultation by Dr. Garcia last night. intubated and improving since positive pressure ventilation. troponin is up a little, will trend. certainly new AZ is possible. (2) Dilated cardiomyopathy Status: Chronic Response to Treatment: Stable Problem Specific Plan: Monitor Clinically Problem Text: 05/15 clinically much improved. 05/14: CHF improving. No significant tachyarrhythmias since yesterday Asymptomatic, wears lifevest as an outpt. Needs to be on a ekg monitor here if he is going to have it off. (3) CVA (cerebral vascular accident) Status: Acute Response to Treatment: Stable, Improving Discussed With: Nurse, Patient, Family with Pt Consent Problem Specific Plan: Consult Specialist, Monitor Clinically Problem Text: 05/15 conversant passed pt/ot goals, speech with minimal word finding difficulty. no obvious field cuts and mildy weak with no focal deficit. 05/14: alert, regards examiner, communicates effectively with gestures. 05/13: overnight intubated due to acutely increasing dyspnea. on propofol at this time. Likely subacute as pt with R hemiparesis, expressive aphasia, R facial droop documented 03/27 at [facility] while inpt. He is improving off of fentanyl and with a decreased dose of gabapentin today per Neuro. I discussed totally discontinuing the gabapentin today vs tomorrow and his prefers tomorrow. The rationale is that he is experiencing some withdraw side effects already. Additionally his mentation is much clearer already. Maybe giving his brain/system more time to adjust is a vivas idea. In reviewing the order history it appears that the EEG has not actually been ordered. I will defer to neurology to see if it is needed at this time. (4) Opioid withdrawal Status: Resolved Response to Treatment: Stable Problem Specific Plan: Monitor Clinically Problem Text: He has a long history of being on opioid pain medications. His fentanyl patch was removed about 48h ago because of decreased mentation. He seems to be doing ok without it, but is having increased nausea today. I increased his Zofran frequency. Will monitor carefully. I think that while we have him inpatient, this is a great time to wean him completely off of the opioids. (5) Anemia Status: Acute Response to Treatment: Worse Discussed With: Nurse, Patient, Family with Pt Consent Problem Specific Plan: Repeat Labs Problem Text: 05/15: Hgb better this am. Stable at 8.8 after his 1 unit transfusion. Will continue to monitor. (6) Splenic abscess Status: Acute Response to Treatment: Stable Discussed With: Nurse, Patient Problem Specific Plan: Monitor Clinically, Repeat Labs Problem Text: 05/15 will follow up with gen surgery in [place] after discharge. 05/14: colostomy functioning. also has drain from pancreas and spleen. Once acute CHF/respiratory failure process is resolved consider surgical consult re drains and when to remove. Pt with percutaneous drain placed within abscess, this was placed at [facility]. (7) General weakness Status: Acute Response to Treatment: Improving Problem Text: 05/15 rehab resumed, passed ot/pt goals 05/14: will resume rehab services when ready. Inturrupted due to intubation/respiratory failure. He has therapy orders. (8) CAD (coronary artery disease) Status: Chronic Response to Treatment: Stable, Worse Problem Specific Plan: Monitor Clinically Problem Text: 05/14: elevation in Troponin c/w cardiac injury Acute AZ vs demand ischemia. Cardiology consulted. Will be able to resume po meds when extubated and as blood pressure allows. Plan/VTE VTE Prophylaxis Ordered?: Yes Plan Therapy: PT, OT, Speech (will need all three services when he is discharge) Anticipated Discharge: Sub Acute Rehab (may be a reasonably consideration for him, but not sure what the official plan is yet) Advance Directives: Other Advance Directive (will designate proxy) VS, I&O, 24H, Fishbone Vital Signs/I&O Vital Signs Date Time Temp Pulse Resp B/P (MAP) Pulse Ox O2 Delivery O2 Flow Rate FiO2 05/15/19 08:35 105 129/87 05/15/19 08:00 99.1 18 98 05/14/19 10:00 40 05/14/19 09:45 T-piece 10.0 I&O- Last 24 Hours up to 6 AM 05/15/19 05:59 Intake Total 855 ml Output Total 2320 ml Balance -1465 ml Laboratory Data 24H LABS Laboratory Tests 2 05/14/19 11:28: Bedside Glucose (Misc Panel) 182H 05/14/19 17:03: Bedside Glucose (Misc Panel) 139H 05/14/19 21:25: Bedside Glucose (Misc Panel) 152H 05/15/19 05:00: Immature Granulocyte % (Auto) 0.4, White Blood Count 13.4H, Red Blood Count 3.33L, Hemoglobin 9.6L, Hematocrit 30.1L, Mean Corpuscular Volume 90.4, Mean Corpuscular Hemoglobin 28.8, Mean Corpuscular Hemoglobin Concent 31.9L, Red Cell Distribution Width 17.5H, Platelet Count 450, Neutrophils (%) (Auto) 60.5, Lymphocytes (%) (Auto) 17.6L, Monocytes (%) (Auto) 17.7H, Eosinophils (%) (Auto) 2.8, Basophils (%) (Auto) 1.0, Neutrophils # (Auto) 8.1, Lymphocytes # (Auto) 2.4, Monocytes # (Auto) 2.4H, Eosinophils # (Auto) 0.4, Basophils # (Auto) 0.1, Nucleated Red Blood Cells % (auto) 0.0, Anion Gap 7L, Glomerular Filtration Rate > 60.0, Blood Urea Nitrogen 7, Creatinine 0.88, Sodium Level 139, Potassium Level 3.4L, Chloride Level 108H, Carbon Dioxide Level 24, Calcium Level 9.3, Phosphorus Level 1.6#L, Aspartate Amino Transf (AST/SGOT) 18, Alanine Aminotransferase (ALT/SGPT) 14, Lactate Dehydrogenase 208, Total Creatine Kinase 69, Alkaline Phosphatase 88, Total Bilirubin 0.3, Triglycerides Level 220H, Cholesterol Level 122, Total Protein 6.6, Albumin 2.7L, Magnesium Level 1.6L, Creatine Kinase MB 2.4, Creatine Kinase MB Relative Index 3.48, Troponin I 4.39#*H, Albumin/Globulin Ratio 0.69L 05/15/19 07:35: Bedside Glucose (Misc Panel) 158H CBC/BMP Laboratory Tests 05/15/19 05:00 Red Blood Count 3.33 L, Mean Corpuscular Volume 90.4, Mean Corpuscular Hemoglobin 28.8, Mean Corpuscular Hemoglobin Concent 31.9 L, Red Cell Distribution Width 17.5 H, Neutrophils (%) (Auto) 60.5, Lymphocytes (%) (Auto) 17.6 L, Monocytes (%) (Auto) 17.7 H, Eosinophils (%) (Auto) 2.8, Basophils (%) (Auto) 1.0, Neutrophils # (Auto) 8.1, Lymphocytes # (Auto) 2.4, Monocytes # (Auto) 2.4 H, Eosinophils # (Auto) 0.4, Basophils # (Auto) 0.1, Calcium Level 9.3, Phosphorus Level 1.6 #L, Aspartate Amino Transf (AST/SGOT) 18, Alanine Aminotransferase (ALT/SGPT) 14, Lactate Dehydrogenase 208, Total Creatine Kinase 69, Alkaline Phosphatase 88, Total Bilirubin 0.3, Triglycerides Level 220 H, Cholesterol Level 122, Total Protein 6.6, Albumin 2.7 L Microbiology Microbiology 05/13/19 Gram Stain - Final, Complete 05/13/19 Sputum Culture - Final, Complete 05/09/19 Blood Culture - Final, Complete NO GROWTH AFTER 5 DAYS 05/09/19 Blood Culture - Final, Complete NO GROWTH AFTER 5 DAYS Zane Alexander MD May 15, 2019 10:44
--- NOTE | 2019-05-15 11:58 | IPN ---
DATE OF SERVICE: 05/15/2019 Mr. Shipman is doing well status post extubation yesterday. He has been out of bed and walking. He denies any chest pain or pressure. He notes a cough and is able to expectorate. He has some shortness of breath with ambulation but not dissimilar from what he was previously. He notes a sore throat from where the endotracheal tube is. No nausea or emesis. He is anxious for discharge. No other concerns are expressed. OBJECTIVE: PHYSICAL EXAMINATION: Mr. Shipman is sitting in a chair in no acute distress. He can complete full sentences. No cough at evaluation. Vital signs: Temperature 99.1 which is his maximum temperature (Tmax), pulse 95, respiratory rate 18, blood pressure 129/87 with a mean arterial pressure (MAP) of 101. SpO2 98% on room air. HEENT: Anicteric. Nares: Patent bilaterally. Moist mucosa. Oropharynx clear. No lesions. Neck: Supple, without thyromegaly or masses, trachea is midline. Lungs: Symmetric excursion, good air entry. There are residual bibasilar crackles, slightly greater on the left. No wheeze or rhonchi. Normal I:D. No accessory muscle usage or retractions. Cardiovascular: Regular rate and rhythm with a normal S1 and S2, no murmur, rub, or gallop appreciated. Abdomen: Positive bowel sounds, soft, nondistended, nontender. Extremities: Without clubbing, cyanosis, or significant edema. LABORATORY DATA: Complete blood count (CBC) from this morning showed a hemoglobin of 9.6, hematocrit 30.1, platelet count 450,000, white blood cell count 13,400 with a differential of 61% neutrophils, 18% lymphocytes, and 18% monocytes. Chemistries show sodium 139, potassium 3.4, chloride 108, bicarbonate 24, anion gap, BUN 7, creatinine 0.9, glucose 179, calcium 9.3, phosphorus 1.6, magnesium 1.6, total bilirubin 0.3, AST 18, ALT 14, alkaline phosphatase 88, LDH 208, CK 69, troponin I 4.39 (decrease from 8.42), total protein 6.6, albumin 2.7. Procalcitonin from 05/13/2019 was negative at 0.07. IMPRESSION: 1. Acute hypercapnic respiratory failure leading to intubation secondary to pulmonary edema, resolving. He is doing well 24 hours after extubation. 2. Pulmonary edema secondary to acute on chronic congestive heart failure. 3. Elevated troponin felt secondary to demand ischemia. Cardiology following. 4. Coronary artery disease (CAD). 5. Recent large posterior middle cerebral artery cerebrovascular accident (CVA), leaving him with mixed aphasia. 6. Cardiomyopathy with ejection fraction of 20%. 7. Pulmonary hypertension, at least mild. 8. Chronic hypertension. 9. Diabetes mellitus, type 2. 10. History of obstructive sleep apnea. 11. Chronic opioid usage. RECOMMENDATIONS: 1. I spoke to the primary team regarding discontinuing Rocephin as his procalcitonin is negative and his intubation was secondary to pulmonary edema. 2. At this point, there is nothing further for the critical care team to offer him. We will sign off for now. Please reconsult the service for further problems/questions.
--- NOTE | 2019-05-15 16:40 | IPN ---
DATE: 05/15/2019 SUBJECTIVE Has been up ambulating with his walker. Admits to having some positional unsteadiness with change but has been able to ambulate short distances without chest pain, shortness of breath or awareness of his heart action. Appears to be tolerating his medications without adverse effect. Had a productive cough earlier today of clear sputum; not purulent. OBJECTIVE Slim somewhat wasted middle-aged man lying comfortably. Heart rate 78 beats per minute and regular. Blood pressure 128/78 supine, 122/80 sitting with legs dependent; 128/72 standing. Respiratory rate 18, O2 saturation 98% on room air. Afebrile. His weight today appears to be down slightly from yesterday without diuretic therapy. No pallor. No cyanosis. Normal oral moisture. Trachea midline. Neck veins still visible just at the level of the clavicle with him sitting. Improved air entry over both lung patterson with considerable reduction in inspiratory rales right lower lobe. Remains free of dependent edema. 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 BLOOD WORK: Hemoglobin today was 9.6, actually up from yesterday. White blood cell count down to 13.4 thousand. Normal platelet count. Potassium has improved, but remains slightly low at 3.4. Magnesium also slightly low at 1.9. Other electrolytes were normal. BUN has actually dropped and creatinine has improved as well on his current Entresto therapy. Fasting glucose this morning 179. Albumin slightly improved at 2.7. Troponin I level has decreased from 8.4 yesterday to 4.39 this morning. IMPRESSION AND PLAN: 1. Heart failure (sytolic on diastolic dysfunction / acute on chronic): Continues to do well on his combination Entresto and metoprolol succinate therapy. Does not appear to need diuretic therapy at this time. Improving electrolyte disturbance with magnesium and potassium supplements. We anticipate he will not require more than magnesium oxide 400 mg daily at the time of his discharge. I have spoken with his regarding the use of Lasix 40 mg tablets she has at home should he develop increasing weight gain with shortness of breath or dependent edema. They will contact us should he require this therapy and we will order potassium supplement. 2. Ventricular tachycardia / ventricular fibrillation / prior biventricular implantable cardioverter defibrillator in situ: With his improving electrolyte disturbance, metoprolol succinate and amiodarone his low grade ventricular ectopic activity has significantly decreased. As discussed with the patient, Entresto has also been shown to reduce his risk of malignant ventricular arrhythmia. Will be sent home with his Life Vest. As mentioned in light of his recurrent sepsis and intra-abdominal problems, he is unlikely to be a candidate for reimplantation of a defibrillator. 3. Abnormal EKG - left bundle branch block: Tolerating his metoprolol and amiodarone without bradyarrhythmia. 4. Coronary disease (king salmon vessel) / status post CABG / status post multiple coronary stenting procedures / acutely elevated troponin I level: Has remained free of symptomatic myocardial ischemia even with ambulation on the ferrara. His Troponin I level is decreasing. At this point he will be on protective combination metoprolol succinate, Entresto, Crestor, Eliquis and Plavix. I anticipate he will be able to be discharged home tomorrow and we will arrange for a followup office visit with us in 7-10 days.
[2019-05-15] MEDS: CLOPIDOGREL 75 MG TAB PO SCH (21:20)
[2019-05-15] MEDS: ROSUVASTATIN 10 MG TAB (CRESTOR) PO SCH (21:21)
[2019-05-15] MEDS: FERROUS GLUCONATE 324 MG TAB PO SCH (21:22)
[2019-05-16] MEDS: ACETAMINOPHEN 325 MG/10.15 ML UDC GT PRN ×2 (00:16→08:23)
[2019-05-16 04:00] VITALS: BP 122/69
[2019-05-16 05:43] LABS: BASO # 0.1 10^3/uL (0.0-0.2); BASO % 0.7 % (0.0-1.0); EOS # 0.4 10^3/uL (0.0-0.5); EOS % 2.3 % (0.0-3.0); HEMATOCRIT 34.9 % (42.0-52.0); HEMOGLOBIN 11.2 g/dl (13.5-17.5); LYMPH # 2.2 10^3/uL (1.5-5.0); LYMPH % 11.9 % (24.0-44.0); MEAN CORPUSCULAR HEMOGLOBIN 29.2 pg (27.0-33.0); MEAN CORPUSCULAR HGB CONC 32.1 g/dl (32.0-36.5); MEAN CORPUSCULAR VOLUME 91.1 fl (80.0-96.0); MONO % 12.3 % (0.0-5.0); NEUTROPHILS # 13.6 10^3/uL (1.5-8.5); NEUTROPHILS % 72.3 % (36.0-66.0); PLATELET COUNT, AUTOMATED 518 10^3/uL (150-450); RED BLOOD COUNT 3.83 10^6/uL (4.30-6.10); WHITE BLOOD COUNT 18.9 10^3/uL (4.0-10.0)
[2019-05-16 06:12] LABS: MONO # 2.3 10^3/uL (0.0-0.8)
[2019-05-16 06:13] LABS: ALBUMIN 2.8 GM/DL (3.2-5.2); ALT/SGPT 14 U/L (12-78); BILIRUBIN,TOTAL 0.3 MG/DL (0.2-1.0); BLOOD UREA NITROGEN 11 MG/DL (7-18); CALCIUM LEVEL 9.1 MG/DL (8.5-10.1); CARBON DIOXIDE LEVEL 23 MEQ/L (21-32); CHLORIDE LEVEL 109 MEQ/L (98-107); CHOLESTEROL LEVEL 148 MG/DL (< 200); CK-MB VALUE MASS 2.2 NG/ML (<3.6); CPK CREATINE PHOSPHOKINASE 41 U/L (39-308); CREATININE FOR GFR 0.91 MG/DL (0.70-1.30); GLOMERULAR FILTRATION RATE > 60.0 (>56); GLUCOSE, FASTING 210 MG/DL (70-100); LDH LACTATE DEHYDROGENASE 195 U/L (87-241); MAGNESIUM LEVEL 1.6 MG/DL (1.8-2.4); MB/CK RELATIVE INDEX 5.37 (< OR =4); PHOSPHORUS LEVEL 1.1 MG/DL (2.5-4.9); POTASSIUM SERUM 4.6 MEQ/L (3.5-5.1); SODIUM LEVEL 138 MEQ/L (136-145); TOTAL PROTEIN 7.1 GM/DL (6.4-8.2); TRIGLYCERIDES LEVEL 220 MG/DL (<150); TROPONIN I 2.62 NG/ML (< 0.10)
[2019-05-16 08:00] VITALS: BP 131/83
[2019-05-16] MEDS: AMIODARONE 200 MG TAB (PACERONE) PO SCH (08:09)
[2019-05-16] MEDS: FLUoxetine 20 MG CAP PO SCH (08:09)
[2019-05-16] MEDS: ENTRESTO 24-26MG TABLET (SACUBITRIL/VALSARTAN) PO SCH (08:09)
[2019-05-16] MEDS: GABAPENTIN 100 MG CAP PO SCH (08:09)
[2019-05-16] MEDS: PANTOPRAZOLE 40MG TAB (PROTONIX) PO SCH (08:09)
[2019-05-16] MEDS: MAGNESIUM OXIDE 400 MG TAB (MAG-OX) PO SCH (08:10)
[2019-05-16] MEDS: APIXABAN 5 MG TAB (ELIQUIS) PO SCH (08:10)
[2019-05-16 08:11] VITALS: BP 131/83
[2019-05-16] MEDS: METOPROLOL SUCC *XL* 25MG TAB (TopROL *XL*) PO SCH (08:11)
[2019-05-16] MEDS: HumaLOG INSULIN (NovoLOG) PER UNIT SC SCH ×2 (08:12→12:00)
[2019-05-16] MEDS ORDERED: AMIO200T PO (10:33)
[2019-05-16] MEDS ORDERED: CARV3.12 PO (10:33)
[2019-05-16] MEDS ORDERED: GABA-1171 PO (10:35)
--- NOTE | 2019-05-16 15:40 | DSES ---
DATE OF ADMISSION: 05/09/2019 DATE OF DISCHARGE: 05/16/2019 REASON FOR ADMISSION: Mr. Shipman was admitted from emergency department (ED) on 05/09/2019 with confusion and drowsiness, twitching motions. Imaging showed that he had, had a new stroke involving left posterior temporal and left parietal lobe, primarily left parietal based on imaging study that date. He initially seemed to be stable but then very quickly developed signs of increasing ventilatory respiratory difficulty and developed acute congestive heart failure and required intubation and management in the intensive care unit (ICU). He was seen in consultation by Dr. Whitney of the pulmonary/critical care service and by Dr. Garcia of cardiology service. His troponin level went up traumatically to peak of 8.99 on 05/13/2019 after being intubated pegger on 05/13/2019. He had acute hypercarbic respiratory failure associated with acute systolic congestive failure by imaging based on known history of low ejection fraction (EF) and chest x-ray appearance consistent with congestive failure. He rapidly improved and was extubated the following day. Seen in consultation by Dr. Garcia and started on the Entresto at a dose of 24-26 mg twice a day, which has tolerated well so far. His carvedilol he had been taking 12.5 twice a day was interrupted and at discharge he will resume 3.125 mg twice a day. Other medication that is new includes amiodarone 200 mg by mouth twice a day. He will continue at discharge with Protonix 40 mg daily, sliding scale insulin Humalog, Prozac 40. Gabapentin was reduced to 100 mg by mouth twice a day. Clopidogrel 75 mg daily to continue, rosuvastatin 20 mg daily to continue. Senna 1 tablet daily as needed - constipation, nitroglycerin as needed - chest pain to continue. Stopped were oxycodone and transdermal fentanyl. The patient is doing well from a pain standpoint. He still has in place a drain from his spleen and a drain from his pancreas. Outputs from these drains have been fairly modest, essentially zero to 20 mL a day from the left lateral abdomen drain that drains the area of his spleen and left anterior abdomen drain has had no output now for several days. He still has a colostomy bag in place that seems to be well-controlled. Overnight he has been receiving 60 mL/h of Jevity 1.56 essentially for 12 hours starting at 6 p.m. and ending at 6 a.m. to support his nutritional state. This was an intervention started during his recent hospital stay as CHARLIE. Plan at discharge will be medications as noted, activity as tolerated, 2 gram sodium diet. He will followup with general surgery at [facility]. He was supposed to see them yesterday but was in hospital and could not make the appointment. Related to his drains anticipate that the drain from his pancreas in the anterior abdomen can be pulled and the one from his spleen soon thereafter. Long-term there may be a plan to take out and reverse his ostomy but considering his poor ejection fraction and he seems to be an unlikely candidate for elective colon surgery. Activity will be as tolerated. He will followup with his primary care provider within a week. Followup with Dr. Garcia/Giuliana by that office's directions and followup with general surgery at [facility] per their direction as well. DISCHARGE DIAGNOSIS: Stroke involving left parietal area, very little residual deficit this time, acute congestive failure resulting in hypercarbic respiratory failure requiring intubation, low ejection fraction, systolic failure. He will resume use of his LifeVest at discharge. Prognosis obviously is guarded considering his low EF heart failure problem but we are pleased that he was able to turn around his congestive failure so quickly and discharged today with what appears to be good mental state and very supportive significant other.
--- NOTE | 2019-05-18 09:36 | ECGEPIP ---
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
--- NOTE | 2019-05-18 09:49 | ECGEPIP ---
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
== END 2019-05-16 13:18 | disposition home health service (06) | DRG 64 ==
LOC: M ED 18:40 → M ED INP 23:27 → EEVIPCON 23:27 → M ICU 05-10 02:01 → M PCU 05-15 16:58
PROVIDERS: ADMIT Internal Medicine; ATTEND Family Medicine
PROC: 30233N1 Transfusion of Nonautologous Red Blood Cells into Peripheral Vein, Percutaneous Approach (ICD-10-PCS; 2019-05-10)
PROC: 5A1945Z Respiratory Ventilation, 24-96 Consecutive Hours (ICD-10-PCS; principal; 2019-05-13)
DX: I63.9 Cerebral infarction, unspecified (principal); E43 Unspecified severe protein-calorie malnutrition; I50.43 Acute on chronic combined systolic (congestive) and diastolic (congestive) heart failure; J96.02 Acute respiratory failure with hypercapnia; I49.01 Ventricular fibrillation; K94.23 Gastrostomy malfunction; I69.351 Hemiplegia and hemiparesis following cerebral infarction affecting right dominant side; I24.8 Other forms of acute ischemic heart disease; K86.1 Other chronic pancreatitis; E87.2 Acidosis; I47.2 Ventricular tachycardia; D73.5 Infarction of spleen; G25.3 Myoclonus; D73.3 Abscess of spleen; J44.9 Chronic obstructive pulmonary disease, unspecified; G47.33 Obstructive sleep apnea (adult) (pediatric); G43.909 Migraine, unspecified, not intractable, without status migrainosus; E78.5 Hyperlipidemia, unspecified; I25.10 Atherosclerotic heart disease of native coronary artery without angina pectoris; Z95.1 Presence of aortocoronary bypass graft; Z95.2 Presence of prosthetic heart valve; I27.20 Pulmonary hypertension, unspecified; F32.9 Major depressive disorder, single episode, unspecified; Z87.891 Personal history of nicotine dependence; D72.829 Elevated white blood cell count, unspecified; D64.9 Anemia, unspecified; N40.0 Benign prostatic hyperplasia without lower urinary tract symptoms; E11.9 Type 2 diabetes mellitus without complications; Z79.899 Other long term (current) drug therapy; Z79.4 Long term (current) use of insulin; K21.9 Gastro-esophageal reflux disease without esophagitis; I44.7 Left bundle-branch block, unspecified

== ENCOUNTER 2019-05-18 12:53 | Emergency (ER) | payer MEDICARE, MEDICAID ==
[~2019-05-18] VITALS: Ht 170.2 cm; Wt 59.1 kg
[~2019-05-18 12:53] MED LIST changes: +ALBU83IN INH; +CARV3.12 PO; +FENT50DI5; +FENT50DI5 TD; +GABA-1171 PO; +GLUC1KIT IM; +MAGN400T3 PO; +NITR0.4S14; +ONDA4TAB5 PO; +PANT40TA3 PO; +SENN1TAB8 PO; +TAB-TAB PO; +TAB-TAB3; +[UNRECOGNIZED DRUG - OTHER] FT
[2019-05-18] MEDS ORDERED: PERCOCET 5MG/325MG TAB PO ONE (14:00)
[2019-05-18] MEDS ORDERED: PERC5TAB12 PO (15:59)
[2019-05-18 16:13] VITALS: BP 105/61
--- NOTE | 2019-05-19 07:23 | REP ---
REASON: Splenic drainage. There are no priors for comparison. Prior CT 05/10/2019 showed a drain tube adjacent to an intrasplenic abscess. Multiple ultrasonographic images of the spleen shows the spleen to measures 12.3 x 7.7 x 1.4 cm. There is an area of complex echoes seen adjacent to the spleen in a fashion like the abnormality seen on prior CT today measuring approximately 9.3 x 2.9 x 6.4 cm. Within this suspected complex region, there is a specular reflection consistent with a CT finding of a parasplenic drainage tube. IMPRESSION: Findings, as described above, or consistent with a CT finding of 05/10/2019 where a perisplenic abscess is being drained by the drainage tube. Electronically Signed by Wesley Raymond DO 05/19/2019 08:57 A
== END 2019-05-18 16:44 | disposition home or self-care (01) ==
LOC: M ED 12:53
DX: Z48.03 Encounter for change or removal of drains (principal); D73.3 Abscess of spleen; I51.9 Heart disease, unspecified; E11.9 Type 2 diabetes mellitus without complications; I10 Essential (primary) hypertension; Z95.1 Presence of aortocoronary bypass graft; Z87.891 Personal history of nicotine dependence; Z79.01 Long term (current) use of anticoagulants; Z79.4 Long term (current) use of insulin; Z79.899 Other long term (current) drug therapy

== ENCOUNTER → 2019-05-29 | Outpatient (REF) | payer MEDICARE, MEDICAID ==
[~2019-05-29] MED LIST changes: +PERC5TAB12 PO
[2019-05-29 17:42] LABS: BASO # 0.1 10^3/uL (0.0-0.2); EOS # 0.4 10^3/uL (0.0-0.5); EOS % 3.2 % (0.0-3.0); HEMATOCRIT 30.2 % (42.0-52.0); HEMOGLOBIN 9.1 g/dl (13.5-17.5); LYMPH # 2.1 10^3/uL (1.5-5.0); LYMPH % 15.5 % (24.0-44.0); MEAN CORPUSCULAR HEMOGLOBIN 28.4 pg (27.0-33.0); MEAN CORPUSCULAR HGB CONC 30.1 g/dl (32.0-36.5); MEAN CORPUSCULAR VOLUME 94.4 fl (80.0-96.0); MONO # 1.4 10^3/uL (0.0-0.8); MONO % 10.3 % (0.0-5.0); NEUTROPHILS # 9.5 10^3/uL (1.5-8.5); NEUTROPHILS % 69.6 % (36.0-66.0); PLATELET COUNT, AUTOMATED 410 10^3/uL (150-450); WHITE BLOOD COUNT 13.6 10^3/uL (4.0-10.0)
[2019-05-29 18:06] LABS: ALBUMIN 2.9 GM/DL (3.2-5.2); ALT/SGPT 13 U/L (12-78); BILIRUBIN,TOTAL 0.6 MG/DL (0.2-1.0); BLOOD UREA NITROGEN 21 MG/DL (7-18); CALCIUM LEVEL 9.4 MG/DL (8.5-10.1); CARBON DIOXIDE LEVEL 24 MEQ/L (21-32); CHLORIDE LEVEL 105 MEQ/L (98-107); CREATININE FOR GFR 1.13 MG/DL (0.70-1.30); ERYTHROCYTE SEDIMENTATION RATE > 140 mm/hr (0-20); GLOMERULAR FILTRATION RATE > 60.0 (>56); GLUCOSE, FASTING 140 MG/DL (70-100); LIPASE 86 U/L (73-393); POTASSIUM SERUM 4.8 MEQ/L (3.5-5.1); SODIUM LEVEL 136 MEQ/L (136-145); TOTAL PROTEIN 6.9 GM/DL (6.4-8.2)
== END ==
LOC: M SFHCPLAZ 15:25
PROVIDERS: ATTEND Physician Assistant Medical
DX: M51.36 Other intervertebral disc degeneration, lumbar region (principal); E11.69 Type 2 diabetes mellitus with other specified complication; Z86.14 Personal history of Methicillin resistant Staphylococcus aureus infection
CPT/HCPCS: 36415; 80053; 82784; 83519; 83690; 85025; 85652; 86140; 87040; 99495; G0463

== ENCOUNTER 2019-06-03 11:32 | Emergency (ER) | payer MEDICARE, MEDICAID ==
[2019-06-03] MEDS ORDERED: ONDANSETRON 4MG/2ML VIAL (J2405) IV ONE ×2 (13:00→16:30)
--- NOTE | 2019-06-03 13:12 | REP ---
Clinical: Chest and abdominal pain . Comparison: 05/14/2019 . Findings: The mediastinum and cardiac silhouette are stable and within normal limits for portable technique. The lung patterson demonstrate chronic changes without acute consolidation, effusion, or pneumothorax. Previous right lower lobe effusion/atelectasis resolved. Skeletal structures are intact. Impression: No acute cardiopulmonary process appreciated. Electronically Signed by Shakeel Ramírez MD 06/03/2019 01:04 P
[2019-06-03] MEDS: HYDROMORPHONE HCL 0.5 MG/ 0.5 ML SYRINGE (J1170 PER 1) IV PRN ×2 (13:34→15:07)
[2019-06-03 13:45] LABS: BASO # 0.2 10^3/uL (0.0-0.2); BASO % 1.3 % (0.0-1.0); EOS # 0.6 10^3/uL (0.0-0.5); EOS % 5.2 % (0.0-3.0); HEMATOCRIT 34.7 % (42.0-52.0); HEMOGLOBIN 10.9 g/dl (13.5-17.5); LYMPH # 2.1 10^3/uL (1.5-5.0); LYMPH % 17.5 % (24.0-44.0); MEAN CORPUSCULAR HEMOGLOBIN 29.3 pg (27.0-33.0); MEAN CORPUSCULAR HGB CONC 31.4 g/dl (32.0-36.5); MEAN CORPUSCULAR VOLUME 93.3 fl (80.0-96.0); MONO # 0.9 10^3/uL (0.0-0.8); MONO % 7.8 % (0.0-5.0); NEUTROPHILS # 8.1 10^3/uL (1.5-8.5); NEUTROPHILS % 67.5 % (36.0-66.0); PLATELET COUNT, AUTOMATED 529 10^3/uL (150-450); RED BLOOD COUNT 3.72 10^6/uL (4.30-6.10)
[2019-06-03 13:55] LABS: INR 1.33; PROTHROMBIN TIME 16.2 SECONDS (11.8-14.0)
[2019-06-03 13:56] LABS: PARTIAL THROMBOPLASTIN TIME 36.5 SECONDS (25.0-38.4)
[2019-06-03 14:05] LABS: ALBUMIN 3.2 GM/DL (3.2-5.2); ALT/SGPT 11 U/L (12-78); AMYLASE 36 U/L (25-115); BILIRUBIN,DIRECT < 0.1 MG/DL (0.0-0.2); BILIRUBIN,TOTAL 0.2 MG/DL (0.2-1.0); CK-MB VALUE MASS 1.8 NG/ML (<3.6); CPK CREATINE PHOSPHOKINASE 30 U/L (39-308); LIPASE 88 U/L (73-393); TOTAL PROTEIN 7.6 GM/DL (6.4-8.2); TROPONIN I < 0.02 NG/ML (< 0.10)
[2019-06-03] MEDS ORDERED: ISOVUE-370 76% 100ML VIAL (Q9967) As Ordered ONE (14:12)
[2019-06-03] MEDS ORDERED: GASTROGRAFIN SOLUTION 30ML PO SCH (14:25)
[2019-06-03] MEDS ORDERED: NS 500 ML IV ONE (14:30)
--- NOTE | 2019-06-03 14:48 | REP ---
Clinical: Abdominal pain history of abscess with drainage catheter. Technique: Axial contrast enhanced images from the lung bases to the pubic symphysis with coronal and sagittal re-formations using 100 ml Isovue 370 intravenous contrast material. Comparison: 05/10/2019 Findings: The pigtail catheter identified in the largest complex splenic collection has been subsequently removed, but significant multiloculated complex splenic collections remain only minimally decreased in size from prior examination. Liver, pancreas, gallbladder, bilateral adrenal glands and kidneys are relatively normal / stable. Low density changes involving the right kidney suggesting chronic cortical scarring again identified and unchanged. Percutaneous Gastrostomy tube remains in stable satisfactory position. Evidence for prior left hemicolectomy with colostomy via the right anterior abdominal wall is again noted. There is no evidence for bowel obstruction or acute enteric process identified. Pelvis demonstrates normal bladder and age appropriate prostate/seminal vesicles. No ascites. No free air. No obvious adenopathy. Atherosclerotic changes of the aorta and vasculature again noted without aneurysm or dissection. Osseous structures remain stable. Bibasilar atelectasis (right greater than left) noted. Impression: 1. Complex multiloculated splenic collections are again identified and only minimally decreased in size when compared to the prior examination. The previous pigtail catheter has been removed. 2. No new abdominopelvic fluid or collections are appreciated. 3. Postsurgical changes as noted above remains stable. 4. Bibasilar atelectasis (right greater than left). Electronically Signed by Shakeel Ramírez MD 06/03/2019 02:40 P
[2019-06-03] MEDS ORDERED: PIPERACILLIN/TAZOBACTAM SOD 4.5 GM in D5W MINI-BAG PLUS 50 ML IV ONE (16:00)
[2019-06-03 17:16] VITALS: BP 110/67
--- NOTE | 2019-06-03 20:35 | ECGEPIP ---
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
== END 2019-06-03 17:20 | disposition short-term general hospital (02) ==
LOC: M ED 11:32
DX: K68.11 Postprocedural retroperitoneal abscess (principal); Z93.4 Other artificial openings of gastrointestinal tract status; Z90.49 Acquired absence of other specified parts of digestive tract; J98.11 Atelectasis; D73.89 Other diseases of spleen; I44.7 Left bundle-branch block, unspecified; I11.0 Hypertensive heart disease with heart failure; I50.9 Heart failure, unspecified; E11.9 Type 2 diabetes mellitus without complications; Z95.5 Presence of coronary angioplasty implant and graft; F17.210 Nicotine dependence, cigarettes, uncomplicated; Z79.4 Long term (current) use of insulin; Z79.51 Long term (current) use of inhaled steroids; Z79.811 Long term (current) use of aromatase inhibitors; Z79.899 Other long term (current) drug therapy
CPT/HCPCS: 36415; 71045; 74177; 80047; 80076; 81001; 82150; 82550; 82553; 83605; 83690; 84484; 85025; 85610; 85730; 86850; 86900; 86901; 87040; 87070; 87077; 87186; 93005; 93041; 96361; 96365; 96375; 96376; 99285; J1170; J2405; J2543; Q9967

== ENCOUNTER 2019-06-16 20:01 | Emergency (ER) | payer MEDICARE, MEDICAID ==
[~2019-06-16] VITALS: Ht 170.2 cm; Wt 63.6 kg
[2019-06-16] MEDS ORDERED: GABA-843 PO (20:39)
[2019-06-16] MEDS ORDERED: KETOROLAC 30 MG/ML VIAL (J1885) IV ONE (20:45)
[2019-06-16] MEDS ORDERED: ONDANSETRON 4MG/2ML VIAL (J2405) IV ONE (20:45)
[2019-06-16] MEDS ORDERED: AMIT10TA PO (20:48)
[2019-06-16 21:28] LABS: BASO # 0.2 10^3/uL (0.0-0.2); BASO % 1.7 % (0.0-1.0); EOS # 0.6 10^3/uL (0.0-0.5); EOS % 5.7 % (0.0-3.0); HEMATOCRIT 33.2 % (42.0-52.0); HEMOGLOBIN 10.1 g/dl (13.5-17.5); LYMPH # 2.9 10^3/uL (1.5-5.0); LYMPH % 27.5 % (24.0-44.0); MEAN CORPUSCULAR HEMOGLOBIN 28.9 pg (27.0-33.0); MEAN CORPUSCULAR HGB CONC 30.4 g/dl (32.0-36.5); MEAN CORPUSCULAR VOLUME 94.9 fl (80.0-96.0); MONO # 1.3 10^3/uL (0.0-0.8); MONO % 12.6 % (0.0-5.0); NEUTROPHILS # 5.4 10^3/uL (1.5-8.5); PLATELET COUNT, AUTOMATED 388 10^3/uL (150-450); WHITE BLOOD COUNT 10.4 10^3/uL (4.0-10.0)
[2019-06-16 21:39] LABS: INR 1.42; PROTHROMBIN TIME 17.1 SECONDS (11.8-14.0)
[2019-06-16 21:57] LABS: ALBUMIN 3.1 GM/DL (3.2-5.2); ALT/SGPT 18 U/L (12-78); BILIRUBIN,DIRECT < 0.1 MG/DL (0.0-0.2); BILIRUBIN,TOTAL 0.2 MG/DL (0.2-1.0); BLOOD UREA NITROGEN 25 MG/DL (7-18); CALCIUM LEVEL 9.2 MG/DL (8.5-10.1); CARBON DIOXIDE LEVEL 22 MEQ/L (21-32); CHLORIDE LEVEL 109 MEQ/L (98-107); GLOMERULAR FILTRATION RATE 57.1 (>56); GLUCOSE, FASTING 231 MG/DL (70-100); LIPASE 108 U/L (73-393); POTASSIUM SERUM 5.1 MEQ/L (3.5-5.1); SODIUM LEVEL 138 MEQ/L (136-145)
[2019-06-16] MEDS ORDERED: OXYC1TAB15 PO (22:00)
--- NOTE | 2019-06-16 23:22 | REPVR ---
PROCEDURE INFORMATION: Exam: CT Abdomen And Pelvis Without Contrast Exam date and time: 06/16/2019 8:55 PM Clinical history: 48 years old, male; Abdominal pain; Flank; Other: Bilat; Additional info: Flank pain TECHNIQUE: Imaging protocol: Computed tomography of the abdomen and pelvis without contrast. Radiation optimization: All CT scans at this facility use at least one of these dose optimization techniques: automated exposure control; mA and/or kV adjustment per patient size (includes targeted exams where dose is matched to clinical indication); or iterative reconstruction. COMPARISON: CT ABD/PEL W/IV CONTRAST ONLY 2019-06-03 14:23 FINDINGS: Limitations: Study is limited by the absence of contrast. Tubes, catheters and devices: Gastrostomy tube. Lungs: Dependent subsegmental pulmonary atelectasis. Heart: Low dense blood pool in the heart indicating anemia. Liver: Normal. No mass. Gallbladder and bile ducts: Normal. No calcified stones. No ductal dilation. Pancreas: Unchanged pancreatic duct dilatation. Spleen: Complex left splenic and perisplenic fluid collections, one of which has gas foci. Regions are smaller than comparison but the largest measuring 6 x 3 cm, previously 6.4 x 4.7 cm. Adrenals: Normal. No mass. Kidneys and ureters: Normal. No hydronephrosis. Stomach and bowel: Excessive material in the stomach, suspect proximal small bowel obstruction related to the left upper abdominal abnormalities, strictures, scarring, or inflammation. Left abdominal mild proximal small bowel wall thickening. Gastric wall thickening. Right abdominal colostomy. Left hemicolectomy. Appendix: No evidence of appendicitis. Intraperitoneal space: Clips in the upper left abdomen. Vasculature: Mild to moderate aortic and iliac artery atherosclerotic calcification. Vascular calcifications. Lymph nodes: Unremarkable. No enlarged lymph nodes. Bladder: Unremarkable as visualized. Reproductive: Unremarkable as visualized. Bones/joints: Unremarkable. No acute fracture. Soft tissues: Unremarkable. IMPRESSION: 1. Complex left splenic and perisplenic fluid collections, one of which has gas foci are smaller than comparison, the largest measuring 6 x 3 cm, previously 6.4 x 4.7 cm. 2. Excessive material in the stomach, suspect proximal small bowel obstruction related to the left upper abdominal abnormalities, strictures, scarring, or inflammation. Electronically signed by: Vj Haro On 06/16/2019 23:22:03 PM
[2019-06-16] MEDS ORDERED: MORPHINE 4 MG/ML 1ML VIAL/SYRINGE (J2270) IV ONE (23:45)
[2019-06-17] MEDS ORDERED: fentaNYL 100 MCG/2 ML INJECTION (J3010) IV ONE
[2019-06-17 00:14] VITALS: BP 127/74
== END 2019-06-17 00:23 | disposition short-term general hospital (02) ==
LOC: M ED 20:01
DX: D73.5 Infarction of spleen (principal); J44.9 Chronic obstructive pulmonary disease, unspecified; I11.9 Hypertensive heart disease without heart failure; Z95.818 Presence of other cardiac implants and grafts; Z87.891 Personal history of nicotine dependence; Z79.899 Other long term (current) drug therapy; Z79.51 Long term (current) use of inhaled steroids
CPT/HCPCS: 36415; 74176; 80048; 80076; 81001; 83690; 85025; 85610; 87040; 87070; 87077; 87186; 96374; 96375; 99285; J1885; J2405; J3010

== ENCOUNTER → 2019-06-25 | Outpatient (CLI) | payer MEDICARE, MEDICAID ==
[~2019-06-25] MED LIST changes: +ISOVUE-370 76% 100ML VIAL (Q9967) As Ordered ONE; +OXYC1TAB15 PO
--- NOTE | 2019-06-25 20:21 | REP ---
CT ABDOMEN AND PELVIS WITH IV CONTRAST: TECHNIQUE: Axial contrast enhanced images from the lung bases to the pubic symphysis using 100 mL Isovue 370 intravenous contrast material with multiplanar reformations. COMPARISON: 06/03/2019. Fibroatelectatic changes again seen in the right lung base. In the left lung base there is a small left effusion which is new with adjacent mild left lower lobe infiltrate. The liver is unremarkable. There is a splenic abscess again seen containing tiny foci of air predominantly located superiorly and laterally, but also extending to a mild extent medially and inferiorly. This has mildly decreased since the study of 06/03/2019. Adrenals, pancreas and left kidney are unremarkable. There is right renal atrophy. There is no hydronephrosis. There is diffuse atherosclerotic calcification of the abdominal aorta without aneurysm. There is no adenopathy. There is no free air or free fluid. Gastrostomy tube is noted. Ostomy is seen in the right lower quadrant. There is no bowel wall thickening. The appendix is normal. No pelvic mass is seen. Urinary bladder is mildly distended and grossly unremarkable. There are degenerative changes of the spine. IMPRESSION: Persistent splenic abscess has mildly decreased in size since 06/03/2019. There is a new small left pleural effusion with adjacent left lower lobe atelectasis/infiltrate. No other acute findings. Electronically Signed by Jude Hamilton MD 06/26/2019 03:41 P
== END ==
LOC: M RAD 16:10
PROVIDERS: ATTEND Physician Assistant Medical
DX: D73.3 Abscess of spleen (principal); J90 Pleural effusion, not elsewhere classified; R91.8 Other nonspecific abnormal finding of lung field
CPT/HCPCS: 36415; 74177; 80053; 85025; 85652; 86140; G0463; Q9967

== ENCOUNTER → 2019-06-25 | Outpatient (REF) | payer MEDICARE, MEDICAID ==
[~2019-06-25] MED LIST changes: -ISOVUE-370 76% 100ML VIAL (Q9967) As Ordered ONE
[2019-06-25 19:23] LABS: BASO # 0.2 10^3/uL (0.0-0.2); BASO % 1.4 % (0.0-1.0); EOS # 0.5 10^3/uL (0.0-0.5); EOS % 4.3 % (0.0-3.0); HEMATOCRIT 34.8 % (42.0-52.0); HEMOGLOBIN 10.9 g/dl (13.5-17.5); LYMPH # 2.8 10^3/uL (1.5-5.0); LYMPH % 25.5 % (24.0-44.0); MEAN CORPUSCULAR HEMOGLOBIN 29.1 pg (27.0-33.0); MEAN CORPUSCULAR HGB CONC 31.3 g/dl (32.0-36.5); MEAN CORPUSCULAR VOLUME 92.8 fl (80.0-96.0); MONO # 1.4 10^3/uL (0.0-0.8); MONO % 12.6 % (0.0-5.0); NEUTROPHILS # 6.1 10^3/uL (1.5-8.5); NEUTROPHILS % 55.8 % (36.0-66.0); PLATELET COUNT, AUTOMATED 364 10^3/uL (150-450); RED BLOOD COUNT 3.75 10^6/uL (4.30-6.10); WHITE BLOOD COUNT 10.9 10^3/uL (4.0-10.0)
[2019-06-25 19:28] LABS: ALBUMIN 3.4 GM/DL (3.2-5.2); ALT/SGPT 20 U/L (12-78); BILIRUBIN,TOTAL 0.2 MG/DL (0.2-1.0); BLOOD UREA NITROGEN 25 MG/DL (7-18); C REACTIVE PROTEIN QUANTITATIV < 0.30 MG/DL (0.00-0.30); CALCIUM LEVEL 9.4 MG/DL (8.5-10.1); CARBON DIOXIDE LEVEL 24 MEQ/L (21-32); CHLORIDE LEVEL 105 MEQ/L (98-107); CREATININE FOR GFR 1.26 MG/DL (0.70-1.30); GLOMERULAR FILTRATION RATE > 60.0 (>56); GLUCOSE, FASTING 160 MG/DL (70-100); POTASSIUM SERUM 4.2 MEQ/L (3.5-5.1); SODIUM LEVEL 137 MEQ/L (136-145); TOTAL PROTEIN 7.2 GM/DL (6.4-8.2)
[2019-06-25 19:52] LABS: ERYTHROCYTE SEDIMENTATION RATE 48 mm/hr (0-20)
== END ==
LOC: M SFHCPLAZ 15:25
PROVIDERS: ATTEND Physician Assistant Medical
DX: D73.3 Abscess of spleen (principal)

== ENCOUNTER 2019-07-03 12:46 | Outpatient (RCR) | payer MEDICARE, MEDICAID | END 2019-07-06 | LOC: M ST 12:46 | PROVIDERS: ATTEND Physician Assistant Medical | DX: I63.332 Cerebral infarction due to thrombosis of left posterior cerebral artery (principal) | CPT/HCPCS: 92507; 92523; 96125; 97110; 97112; 97163; 97165; G0515 ==

== ENCOUNTER 2019-07-08 11:14 | Emergency (ER) | payer MEDICARE, MEDICAID ==
[~2019-07-08] VITALS: Ht 175.3 cm; Wt 65.9 kg
[2019-07-08] MEDS ORDERED: NS 1,000 ML IV SCH (11:59)
[2019-07-08] MEDS ORDERED: ONDANSETRON 4MG/2ML VIAL (J2405) IV ONE (12:00)
[2019-07-08] MEDS: HYDROMORPHONE HCL 0.5 MG/ 0.5 ML SYRINGE (J1170 PER 1) IV PRN ×2 (12:39→13:28)
[2019-07-08 12:47] LABS: BASO # 0.2 10^3/uL (0.0-0.2); BASO % 1.4 % (0.0-1.0); EOS # 0.7 10^3/uL (0.0-0.5); EOS % 5.5 % (0.0-3.0); HEMATOCRIT 34.7 % (42.0-52.0); HEMOGLOBIN 11.1 g/dl (13.5-17.5); LYMPH # 2.3 10^3/uL (1.5-5.0); LYMPH % 19.2 % (24.0-44.0); MEAN CORPUSCULAR HEMOGLOBIN 29.4 pg (27.0-33.0); MONO # 1.3 10^3/uL (0.0-0.8); MONO % 10.8 % (0.0-5.0); NEUTROPHILS # 7.4 10^3/uL (1.5-8.5); NEUTROPHILS % 62.9 % (36.0-66.0); PLATELET COUNT, AUTOMATED 339 10^3/uL (150-450); RED BLOOD COUNT 3.77 10^6/uL (4.30-6.10); WHITE BLOOD COUNT 11.8 10^3/uL (4.0-10.0)
[2019-07-08 12:58] LABS: INR 1.45; PROTHROMBIN TIME 17.4 SECONDS (11.8-14.0)
[2019-07-08 13:27] LABS: ALBUMIN 3.2 GM/DL (3.2-5.2); ALT/SGPT 18 U/L (12-78); BILIRUBIN,DIRECT < 0.1 MG/DL (0.0-0.2); BILIRUBIN,TOTAL 0.2 MG/DL (0.2-1.0); BLOOD UREA NITROGEN 22 MG/DL (7-18); CALCIUM LEVEL 9.3 MG/DL (8.5-10.1); CARBON DIOXIDE LEVEL 25 MEQ/L (21-32); CHLORIDE LEVEL 107 MEQ/L (98-107); CPK CREATINE PHOSPHOKINASE 50 U/L (39-308); CREATININE FOR GFR 1.63 MG/DL (0.70-1.30); GLOMERULAR FILTRATION RATE 47.9 (>56); GLUCOSE, FASTING 182 MG/DL (70-100); LIPASE 52 U/L (73-393); POTASSIUM SERUM 4.2 MEQ/L (3.5-5.1); SODIUM LEVEL 137 MEQ/L (136-145); TOTAL PROTEIN 7.1 GM/DL (6.4-8.2); TROPONIN I < 0.02 NG/ML (< 0.10)
--- NOTE | 2019-07-08 14:29 | REP ---
Clinical: Generalized abdominal pain. Technique: Axial noncontrast images from the lung bases to the pubic symphysis with coronal and sagittal re-formations. Comparison: 06/03/2019, 06/25/2019. Findings: Mild/moderate bibasilar atelectasis and small pleural effusions are similar to prior examination. Heterogeneous appearance of the spleen with underlying low density areas are consistent with known splenic abscess sees and subcapsular collection which are decreased/improved when compared to prior examination. Liver, pancreas, gallbladder, bilateral adrenal glands and kidneys are normal / stable. Percutaneous gastrostomy tube again noted in stable position. Colostomy via the right anterior abdominal wall again noted. No evidence for bowel obstruction or obvious acute inflammatory process. Pelvis demonstrates normal bladder and age appropriate prostate/seminal vesicles. No ascites. No free air. No obvious adenopathy. Atherosclerotic changes of the aorta and vasculature without aneurysm. Musculoskeletal structures demonstrate degenerative changes. Impression: 1. Mild/moderate bibasilar atelectasis and small pleural effusions similar to prior examination. 2. Splenic abscess sees and subcapsular collection appear improved. 3. Further stable chronic and postsurgical changes as noted above. 4. No obvious new acute process identified. No ascites. No free air. Electronically Signed by Shakeel Ramírez MD 07/08/2019 02:20 P
[2019-07-08 14:30] VITALS: BP 130/75
[2019-07-08] MEDS ORDERED: diphenhydrAMINE INJ 50MG/ML VIAL (J1200) IV STA (14:32)
--- NOTE | 2019-07-08 17:36 | ECGEPIP ---
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
--- NOTE | 2019-07-09 11:23 | ED PDOC ---
Post-Departure Follow-Up ct abd/p faxed tp raymundo francisco for fu August Morales MD Jul 09, 2019 11:23
== END 2019-07-08 15:20 | disposition home or self-care (01) ==
LOC: M ED 11:14
DX: R10.9 Unspecified abdominal pain (principal); R00.1 Bradycardia, unspecified; I44.7 Left bundle-branch block, unspecified; J98.11 Atelectasis; J90 Pleural effusion, not elsewhere classified; D73.3 Abscess of spleen; E11.9 Type 2 diabetes mellitus without complications; I25.10 Atherosclerotic heart disease of native coronary artery without angina pectoris; G62.9 Polyneuropathy, unspecified; J44.9 Chronic obstructive pulmonary disease, unspecified; I63.9 Cerebral infarction, unspecified; D73.5 Infarction of spleen; B18.2 Chronic viral hepatitis C; Z86.14 Personal history of Methicillin resistant Staphylococcus aureus infection; F33.9 Major depressive disorder, recurrent, unspecified; Z95.5 Presence of coronary angioplasty implant and graft; Z87.891 Personal history of nicotine dependence; Z79.4 Long term (current) use of insulin; Z79.51 Long term (current) use of inhaled steroids; Z79.891 Long term (current) use of opiate analgesic; Z79.899 Other long term (current) drug therapy
CPT/HCPCS: 74176; 80048; 80076; 81001; 82550; 82553; 83605; 83690; 84484; 85025; 85610; 86850; 86900; 86901; 87040; 93005; 93041; 96361; 96374; 96375; 99285; J1170; J1200; J2405

== ENCOUNTER → 2019-07-09 | Outpatient (CLI) | payer MEDICARE, MEDICAID ==
--- NOTE | 2019-07-09 14:53 | REPPI ---
Clinical: Chest pain. Technique: PA and lateral. Comparison: 06/03/2019. Findings: Mild cardiomegaly. Increased interstitial markings with cephalization and prominent pulmonary vasculature as well as subtle bibasilar atelectasis and small pleural effusions highly suggestive of early CHF/pulmonary edema. Differential diagnosis would include pneumonia / atelectasis. No pneumothorax. Skeletal structures intact. Impression: Findings most suggestive of early CHF/pulmonary edema. Electronically Signed by Shakeel Ramírez MD 07/09/2019 02:45 P
[2019-07-09 17:07] LABS: BASO # 0.2 10^3/uL (0.0-0.2); BASO % 1.4 % (0.0-1.0); EOS # 0.5 10^3/uL (0.0-0.5); HEMATOCRIT 38.5 % (42.0-52.0); HEMOGLOBIN 11.7 g/dl (13.5-17.5); LYMPH # 1.9 10^3/uL (1.5-5.0); LYMPH % 15.5 % (24.0-44.0); MEAN CORPUSCULAR HGB CONC 30.4 g/dl (32.0-36.5); MEAN CORPUSCULAR VOLUME 95.3 fl (80.0-96.0); MONO # 1.3 10^3/uL (0.0-0.8); NEUTROPHILS # 8.5 10^3/uL (1.5-8.5); NEUTROPHILS % 68.7 % (36.0-66.0); PLATELET COUNT, AUTOMATED 397 10^3/uL (150-450); RED BLOOD COUNT 4.04 10^6/uL (4.30-6.10); WHITE BLOOD COUNT 12.5 10^3/uL (4.0-10.0)
[2019-07-09 17:30] LABS: ERYTHROCYTE SEDIMENTATION RATE 1 mm/hr (0-20)
== END ==
LOC: M PLAIMG 14:08 → M PLALAB 14:08
PROVIDERS: ATTEND Physician Assistant Medical
DX: I51.7 Cardiomegaly (principal); R07.81 Pleurodynia

== ENCOUNTER → 2019-07-16 | Outpatient (POV) | payer MEDICARE, MEDICAID ==
[~2019-07-16] VITALS: Ht 175.3 cm; Wt 70.5 kg
[2019-07-16 13:15] VITALS: BP 122/75
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
== END ==
LOC: M IRPOV 13:14
PROVIDERS: ATTEND Radiology Diagnostic Radiology
DX: D73.3 Abscess of spleen (principal); J98.11 Atelectasis; K86.1 Other chronic pancreatitis; I25.2 Old myocardial infarction; I73.9 Peripheral vascular disease, unspecified; I63.9 Cerebral infarction, unspecified; I69.998 Other sequelae following unspecified cerebrovascular disease; E11.40 Type 2 diabetes mellitus with diabetic neuropathy, unspecified; E78.5 Hyperlipidemia, unspecified; I25.10 Atherosclerotic heart disease of native coronary artery without angina pectoris; N40.0 Benign prostatic hyperplasia without lower urinary tract symptoms; F32.9 Major depressive disorder, single episode, unspecified; F43.10 Post-traumatic stress disorder, unspecified; K21.9 Gastro-esophageal reflux disease without esophagitis; N52.9 Male erectile dysfunction, unspecified; G47.33 Obstructive sleep apnea (adult) (pediatric); G43.909 Migraine, unspecified, not intractable, without status migrainosus; I25.5 Ischemic cardiomyopathy; M19.90 Unspecified osteoarthritis, unspecified site; J44.9 Chronic obstructive pulmonary disease, unspecified; Z86.14 Personal history of Methicillin resistant Staphylococcus aureus infection; Z93.3 Colostomy status; Z95.828 Presence of other vascular implants and grafts; Z86.718 Personal history of other venous thrombosis and embolism; Z79.891 Long term (current) use of opiate analgesic

== ENCOUNTER 2019-07-26 12:45 | Outpatient (RCR) | payer MEDICARE, MEDICAID ==
[2019-07-31] MEDS ORDERED: GABA-1171 PO (16:02)
[2019-07-31] MEDS ORDERED: PACE200T PO (16:02)
[2019-07-31] MEDS ORDERED: CARV3.12 PO (16:02)
[2019-07-31] MEDS ORDERED: ENTR1TAB PO (16:02)
[2019-08-18] MEDS ORDERED: URSO300C3 (08:27)
[2019-08-18] MEDS ORDERED: ENTR1TAB PO (08:27)
[2019-08-18] MEDS ORDERED: SENN-83 (08:27)
== END 2019-08-06 ==
LOC: M ST 12:45
PROVIDERS: ATTEND Physician Assistant Medical
DX: I63.332 Cerebral infarction due to thrombosis of left posterior cerebral artery (principal)
CPT/HCPCS: 92507; 97110; 97112; G0515

== ENCOUNTER 2019-07-31 12:05 | Emergency (ER) | payer MEDICARE, MEDICAID ==
[~2019-07-31] VITALS: Ht 175.3 cm; Wt 69.5 kg
[2019-07-31 12:45] LABS: BASO # 0.1 10^3/uL (0.0-0.2); BASO % 0.9 % (0.0-1.0); EOS # 0.3 10^3/uL (0.0-0.5); EOS % 2.2 % (0.0-3.0); HEMATOCRIT 36.7 % (42.0-52.0); HEMOGLOBIN 11.3 g/dl (13.5-17.5); LYMPH # 1.4 10^3/uL (1.5-5.0); LYMPH % 8.9 % (24.0-44.0); MEAN CORPUSCULAR HEMOGLOBIN 28.8 pg (27.0-33.0); MEAN CORPUSCULAR HGB CONC 30.8 g/dl (32.0-36.5); MEAN CORPUSCULAR VOLUME 93.6 fl (80.0-96.0); MONO # 1.2 10^3/uL (0.0-0.8); MONO % 7.8 % (0.0-5.0); NEUTROPHILS # 12.1 10^3/uL (1.5-8.5); NEUTROPHILS % 79.8 % (36.0-66.0); PLATELET COUNT, AUTOMATED 406 10^3/uL (150-450); RED BLOOD COUNT 3.92 10^6/uL (4.30-6.10); WHITE BLOOD COUNT 15.1 10^3/uL (4.0-10.0)
[2019-07-31] MEDS ORDERED: ISOVUE-370 76% 100ML VIAL (Q9967) As Ordered ONE (12:52)
[2019-07-31] MEDS ORDERED: ONDANSETRON 4MG/2ML VIAL (J2405) IV ONE (13:00)
[2019-07-31] MEDS ORDERED: HALOPERIDOL 5 MG/ML VIAL (J1630) IV ONE (13:00)
[2019-07-31 13:10] LABS: ALBUMIN 3.6 GM/DL (3.2-5.2); ALT/SGPT 12 U/L (12-78); BILIRUBIN,DIRECT 0.1 MG/DL (0.0-0.2); BILIRUBIN,TOTAL 0.5 MG/DL (0.2-1.0); CPK CREATINE PHOSPHOKINASE 42 U/L (39-308); LIPASE 43 U/L (73-393); MB/CK RELATIVE INDEX 4.76 (< OR =4); TOTAL PROTEIN 8.1 GM/DL (6.4-8.2); TROPONIN I < 0.02 NG/ML (< 0.10)
--- NOTE | 2019-07-31 13:41 | REP ---
Clinical: Abdominal and flank pain. Technique: Axial contrast enhanced images from the lung bases to the pubic symphysis using 100 ml Isovue 370 intravenous contrast material with coronal and sagittal re-formations. Comparison: 07/08/2019, 06/25/2019. Findings: Small/moderate bilateral pleural effusions and bibasilar atelectasis slightly increased when compared to 07/08/2019. Multiloculated partially subcapsular splenic fluid collections with adjacent perisplenic stranding again noted and minimally improved as compared with prior examinations. Fatty infiltration to the liver without focal hepatic lesion. Spleen, gallbladder, bilateral adrenal glands and kidneys are stable and without new/acute process. Cortical scarring involving the right kidney is again noted. Evaluation of the enteric system demonstrates a percutaneous gastrostomy tube and right-sided colostomy without evidence for bowel obstruction or obvious acute inflammatory process. Evidence for prior left hemicolectomy with Paul's pouch again noted. Pelvis demonstrates normal bladder and mild stable prostatomegaly. No ascites. No free air. No adenopathy. Atherosclerotic changes to the aorta and vasculature noted without aneurysm or dissection. Intraluminal low density area with in the portal vein may represent portal vein thrombosis. Impression: 1. Bilateral pleural effusions and bibasilar atelectasis increased from 07/26/2019. 2. Portal vein thrombosis cannot be excluded and ultrasound may be warranted for further investigation. 3. Multiloculated fluid collections involving the spleen are minimally improved. 4. Further chronic nonacute findings as described above. Electronically Signed by Shakeel Ramírez MD 07/31/2019 01:32 P
[2019-07-31] MEDS ORDERED: NS 1,000 ML IV ONE (14:00)
--- NOTE | 2019-07-31 15:49 | REP ---
Clinical: Possible portal vein thrombosis. Technique: Real time plascencia scale and color evaluation using curved array transducer. Findings: Liver is enlarged and echogenic suggesting hepatomegaly and fatty infiltration without focal hepatic lesion identified. Visualized portions of the portal vein measures 15.6 mm maximal diameter and demonstrates normal patency and flow direction. Main portal vein velocity at 15 cm/sec. The gallbladder demonstrates gallstones and mild gallbladder wall thickening without biliary ductal dilatation. The common bile duct measures 3.4 mm diameter. Pancreas is incompletely evaluated due to interposed bowel gas but visualized portions appear normal. The right kidney demonstrates cortical thinning/scarring without hydronephrosis and measures 11.1 x 4.6 x 4.4 cm. Small amount of right upper quadrant ascites is appreciated along with small right pleural effusion. Impression: 1. Hepatomegaly and hepatosteatosis. 2. Main portal vein is upper limits of normal in diameter but demonstrates normal flow without obvious thrombosis. 3. Cholelithiasis 4. Small amount of right upper quadrant ascites and small right pleural effusion. Electronically Signed by Shakeel Ramírez MD 07/31/2019 03:41 P
[2019-07-31] MEDS ORDERED: ENTR1TAB PO (16:02)
[2019-07-31] MEDS ORDERED: GABA-1171 PO (16:02)
[2019-07-31] MEDS ORDERED: PACE200T PO (16:02)
[2019-07-31] MEDS ORDERED: CARV3.12 PO (16:02)
[2019-07-31 17:31] VITALS: BP 173/102
--- NOTE | 2019-07-31 19:41 | ECGEPIP ---
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
== END 2019-07-31 17:50 | disposition home or self-care (01) ==
LOC: M ED 12:05
DX: E86.0 Dehydration (principal); G89.29 Other chronic pain; R10.9 Unspecified abdominal pain; R11.2 Nausea with vomiting, unspecified; R94.31 Abnormal electrocardiogram [ECG] [EKG]; J90 Pleural effusion, not elsewhere classified; J98.11 Atelectasis; K76.0 Fatty (change of) liver, not elsewhere classified; R16.0 Hepatomegaly, not elsewhere classified; K80.20 Calculus of gallbladder without cholecystitis without obstruction; E11.9 Type 2 diabetes mellitus without complications; G47.33 Obstructive sleep apnea (adult) (pediatric); D73.5 Infarction of spleen; F43.10 Post-traumatic stress disorder, unspecified; F41.9 Anxiety disorder, unspecified; F17.210 Nicotine dependence, cigarettes, uncomplicated; Z79.51 Long term (current) use of inhaled steroids; Z79.84 Long term (current) use of oral hypoglycemic drugs; Z79.899 Other long term (current) drug therapy
CPT/HCPCS: 74177; 76705; 80047; 80076; 81001; 82550; 82553; 83605; 83690; 84484; 85025; 93005; 93041; 96374; 96375; 99285; J1630; J2405; Q9967

== ENCOUNTER → 2019-08-27 | Outpatient (REF) | payer MEDICARE, MEDICAID ==
[~2019-08-27] MED LIST changes: -FENO145T13 PO; +FENO145T7 PO; +ONDA-83; +ONDA-83 PO; -ONDA4TAB5; -ONDA4TAB5 PO; -OXYB10TA2 PO; +OXYB10TA23 PO; +PACE200T PO; +SENN-83; +URSO300C3; +ZONI25CA13 PO; -ZONI25CA2 PO
[2019-08-27 13:30] LABS: BASO # 0.2 10^3/uL (0.0-0.2); BASO % 1.3 % (0.0-1.0); EOS # 0.3 10^3/uL (0.0-0.5); EOS % 2.7 % (0.0-3.0); HEMATOCRIT 37.2 % (42.0-52.0); HEMOGLOBIN 11.3 g/dl (13.5-17.5); LYMPH # 1.5 10^3/uL (1.5-5.0); LYMPH % 13.5 % (24.0-44.0); MEAN CORPUSCULAR HEMOGLOBIN 27.7 pg (27.0-33.0); MEAN CORPUSCULAR HGB CONC 30.4 g/dl (32.0-36.5); MEAN CORPUSCULAR VOLUME 91.2 fl (80.0-96.0); MONO # 1.1 10^3/uL (0.0-0.8); NEUTROPHILS # 8.2 10^3/uL (1.5-8.5); NEUTROPHILS % 72.1 % (36.0-66.0); PLATELET COUNT, AUTOMATED 429 10^3/uL (150-450); RED BLOOD COUNT 4.08 10^6/uL (4.30-6.10); WHITE BLOOD COUNT 11.4 10^3/uL (4.0-10.0)
[2019-08-27 14:12] LABS: ALBUMIN 3.1 GM/DL (3.2-5.2); BILIRUBIN,TOTAL 0.5 MG/DL (0.2-1.0); CALCIUM LEVEL 9.3 MG/DL (8.5-10.1); CREATININE FOR GFR 1.53 MG/DL (0.70-1.30); GLOMERULAR FILTRATION RATE 51.5 (>56); POTASSIUM SERUM 4.5 MEQ/L (3.5-5.1); TOTAL PROTEIN 7.2 GM/DL (6.4-8.2)
== END ==
LOC: M SFHCPLAZ 11:14
PROVIDERS: ATTEND Physician Assistant Medical
DX: I50.33 Acute on chronic diastolic (congestive) heart failure (principal); R06.02 Shortness of breath; D63.8 Anemia in other chronic diseases classified elsewhere

== ENCOUNTER → 2019-08-27 | Outpatient (CLI) | payer MEDICARE, MEDICAID ==
--- NOTE | 2019-08-27 12:25 | REP ---
Chest x-ray: Two views. History: Shortness of breath. Comparison study: June 03, 2019. Findings: There is blunting of the pleural angles indicating small bilateral effusions. Heart is mildly enlarged probably unchanged from prior study. Post thoracotomy changes are noted with mediastinal clips bilaterally. There is discoid atelectasis in the right base. There is diffusely prominent pulmonary interstitial lung marking pattern which may reflect interstitial edema. Vasculature appears somewhat indistinct. Impression: Small bilateral effusions. Diffusely prominent interstitial markings and blunting of the pleural angles suggest CHF pattern with pulmonary edema. There is discoid atelectasis in the right base. Electronically Signed by Everett Kent MD 08/27/2019 12:17 P
--- NOTE | 2019-08-27 12:48 | REP ---
Right lower extremity deep vein duplex ultrasound: The deep veins demonstrate normal compression, normal Doppler color flow and normal Doppler waveforms with respiration and augmentation from the popliteal vein to the common femoral vein. Impression: There is no deep vein thrombus. Electronically Signed by Jude Castañeda MD 08/27/2019 12:40 P
== END ==
LOC: M RAD 11:49
PROVIDERS: ATTEND Physician Assistant Medical
DX: J98.11 Atelectasis (principal); R06.02 Shortness of breath; I82.409 Acute embolism and thrombosis of unspecified deep veins of unspecified lower extremity
CPT/HCPCS: 36415; 71046; 80053; 83880; 85025; 85046; 85379; 93971; G0463

== ENCOUNTER → 2019-09-09 | Outpatient (REF) | payer MEDICARE, MEDICAID ==
[2019-09-10 05:37] LABS: PERCENT SATURATION 19.5 % (19.7-50.0)
== END ==
LOC: M LAB REF 13:55
PROVIDERS: ATTEND Internal Medicine Nephrology
DX: D64.9 Anemia, unspecified (principal)

== ENCOUNTER 2019-10-15 12:38 | Emergency (ER) | payer MEDICARE, MEDICAID ==
[~2019-10-15] VITALS: Ht 175.3 cm; Wt 71.8 kg
[2019-10-15] MEDS ORDERED: POTA1TAB14 (14:14)
[2019-10-15] MEDS ORDERED: FURO40TA2 (14:14)
[2019-10-15 16:03] LABS: CREATININE FOR GFR 1.59 MG/DL (0.70-1.30); GLOMERULAR FILTRATION RATE 49.1 (>56); MAGNESIUM LEVEL 1.9 MG/DL (1.8-2.4); POTASSIUM SERUM 5.9 MEQ/L (3.5-5.1)
[2019-10-15] MEDS ORDERED: CYCLOBENZAPRINE 5MG TABLET PO ONE (16:15)
[2019-10-15] MEDS ORDERED: ENTR1TAB PO (17:05)
[2019-10-15 17:15] VITALS: BP 134/72
[2019-10-15] MEDS ORDERED: CYCL5TAB PO (17:27)
--- NOTE | 2019-10-16 20:48 | ECGEPIP ---
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
== END 2019-10-15 17:50 | disposition home or self-care (01) ==
LOC: M ED 12:38
DX: S46.811A Strain of other muscles, fascia and tendons at shoulder and upper arm level, right arm, initial encounter (principal); X58.XXXA Exposure to other specified factors, initial encounter; E87.5 Hyperkalemia; E11.9 Type 2 diabetes mellitus without complications; I42.9 Cardiomyopathy, unspecified; I10 Essential (primary) hypertension; J44.9 Chronic obstructive pulmonary disease, unspecified; N48.6 Induration penis plastica; K55.059 Acute (reversible) ischemia of intestine, part and extent unspecified; Z95.810 Presence of automatic (implantable) cardiac defibrillator; Z86.718 Personal history of other venous thrombosis and embolism; Z79.01 Long term (current) use of anticoagulants; Z79.51 Long term (current) use of inhaled steroids; Z79.4 Long term (current) use of insulin; Z79.899 Other long term (current) drug therapy

== ENCOUNTER 2019-10-17 14:20 | Outpatient (RCR) | payer MEDICARE, MEDICAID ==
[~2019-10-17 14:20] MED LIST changes: +CYCL5TAB PO; +FURO40TA2; +POTA1TAB14
== END 2019-11-05 ==
LOC: M ST 14:20
PROVIDERS: ATTEND Physician Assistant Medical
DX: I63.332 Cerebral infarction due to thrombosis of left posterior cerebral artery (principal); Z51.89 Encounter for other specified aftercare; I25.5 Ischemic cardiomyopathy; M51.36 Other intervertebral disc degeneration, lumbar region; R27.0 Ataxia, unspecified; Z86.14 Personal history of Methicillin resistant Staphylococcus aureus infection; I25.10 Atherosclerotic heart disease of native coronary artery without angina pectoris; R53.81 Other malaise

== ENCOUNTER → 2019-10-18 | Outpatient (REF) | payer MEDICARE, MEDICAID ==
[2019-10-18 17:48] LABS: CALCIUM LEVEL 9.8 MG/DL (8.5-10.1); CREATININE FOR GFR 1.65 MG/DL (0.70-1.30); GLOMERULAR FILTRATION RATE 47.1 (>56); POTASSIUM SERUM 4.9 MEQ/L (3.5-5.1)
== END ==
LOC: M SFHCPLAZ 13:55
PROVIDERS: ATTEND Nurse Practitioner Adult Health
DX: E87.5 Hyperkalemia (principal); Z87.19 Personal history of other diseases of the digestive system
CPT/HCPCS: 36415; 80048; 82150; 83690; G0463

== ENCOUNTER 2019-12-06 15:47 | Emergency (ER) | payer MEDICARE, MEDICAID ==
[~2019-12-06] VITALS: Ht 175.3 cm; Wt 75.7 kg
[~2019-12-06 15:47] MED LIST changes: -FURO40TA2; +FURO40TA2 PO; -LISI-1046 PO; +LISI2.5T2 PO; +SENN-80 PO; -SENN-83; +SENN-83 PO; -SENN1TAB8 PO; -URSO300C3; +URSO300C3 PO
[2019-12-06] MEDS ORDERED: ONDANSETRON 4MG/2ML VIAL IV ONE (16:45)
[2019-12-06 17:16] LABS: BASO # 0.1 10^3/uL (0.0-0.2); BASO % 0.6 % (0.0-1.0); EOS # 0.1 10^3/uL (0.0-0.5); EOS % 0.9 % (0.0-3.0); HEMATOCRIT 40.4 % (42.0-52.0); HEMOGLOBIN 12.8 g/dl (13.5-17.5); LYMPH # 1.4 10^3/uL (1.5-5.0); LYMPH % 10.1 % (24.0-44.0); MEAN CORPUSCULAR HEMOGLOBIN 28.8 pg (27.0-33.0); MEAN CORPUSCULAR HGB CONC 31.7 g/dl (32.0-36.5); MEAN CORPUSCULAR VOLUME 90.8 fl (80.0-96.0); NEUTROPHILS # 10.3 10^3/uL (1.5-8.5); NEUTROPHILS % 73.8 % (36.0-66.0); PLATELET COUNT, AUTOMATED 362 10^3/uL (150-450); RED BLOOD COUNT 4.45 10^6/uL (4.30-6.10); WHITE BLOOD COUNT 13.9 10^3/uL (4.0-10.0)
[2019-12-06 17:32] LABS: ALBUMIN 3.1 GM/DL (3.2-5.2); BILIRUBIN,DIRECT 0.3 MG/DL (0.0-0.2); BILIRUBIN,TOTAL 0.7 MG/DL (0.2-1.0); CALCIUM LEVEL 9.6 MG/DL (8.5-10.1); CREATININE FOR GFR 2.63 MG/DL (0.70-1.30); GLOMERULAR FILTRATION RATE 27.5 (>56); POTASSIUM SERUM 4.9 MEQ/L (3.5-5.1); TOTAL PROTEIN 6.8 GM/DL (6.4-8.2)
[2019-12-06 17:34] LABS: INR 2.82; PROTHROMBIN TIME 29.6 SECONDS (11.8-14.0)
[2019-12-06 17:35] LABS: PARTIAL THROMBOPLASTIN TIME 40.2 SECONDS (25.0-38.4)
--- NOTE | 2019-12-06 17:37 | REP ---
Clinical: Abdominal pain. Technique: Upright view of the chest with supine and upright views of the abdomen and pelvis. Findings: Frontal upright view of the chest demonstrates cardiomegaly, along with indistinct pulmonary vasculature, cephalization, and increased markings extending from the jaswinder. Stable mid to lower lobe pleuroparenchymal changes are also noted and superimposed basilar atelectasis or small pleural effusion cannot be excluded. Percutaneous gastrostomy tube is identified. Bowel gas pattern is nonspecific. Large homogeneous rounded densities in the right mid abdomen possibly related to material in the patient's ostomy. Skeletal structures demonstrate scoliosis and age-related changes. Impression: 1. Frontal view of the chest cannot exclude pulmonary vascular congestion as well as acute/chronic basilar atelectasis and small pleural effusions. 2. Bowel gas pattern is nonspecific with evidence for prior percutaneous gastrostomy and right lower lobe ostomy. Rounded densities overlying the right mid abdomen may reflect material within the ostomy and less likely large calcifications. Electronically Signed by Shakeel Ramírez MD 12/06/2019 05:28 P
[2019-12-06] MEDS ORDERED: NS 1,000 ML IV ONE (17:45)
[2019-12-06] MEDS ORDERED: PEG1POW PO (18:17)
--- NOTE | 2019-12-06 18:44 | REPVR ---
PROCEDURE INFORMATION: Exam: CT Abdomen And Pelvis Without Contrast Exam date and time: 12/06/2019 5:48 PM Age: 49 years old Clinical indication: Abdominal pain; Localized; Left lower quadrant (llq); Additional info: Llq pain, n/v TECHNIQUE: Imaging protocol: Computed tomography of the abdomen and pelvis without contrast. Radiation optimization: All CT scans at this facility use at least one of these dose optimization techniques: automated exposure control; mA and/or kV adjustment per patient size (includes targeted exams where dose is matched to clinical indication); or iterative reconstruction. COMPARISON: CT ABD/PEL W/PO CONTRAST ONLY 08/18/2019 11:35 AM FINDINGS: Tubes, catheters and devices: Peg tube noted within the stomach. Heart: Pacemaker electrodes noted within the heart. Moderate cardiomegaly. Pleural space: Very small bilateral pleural effusions. Lungs: Mosaic perfusion abnormality at both lung bases may be related to areas of air trapping. Hypoventilatory changes present. Liver: Liver measures 20 cm in craniocaudal span. Gallbladder and bile ducts: Hyperdense fluid noted within the gallbladder. Pancreas: Pancreatic calcifications present in the head of the pancreas. Spleen: Surgical clips noted anterior to the splenic hilum. Hyperdensity noted along the superior margin of the spleen and extending laterally in subcapsular region of the spleen. Adrenals: Normal. No mass. Kidneys and ureters: Cortical atrophy in the upper pole the right kidney. Nonobstructing punctate calcification in the left renal pelvis measuring less than 2 mm. Stomach and bowel: There has been a left hemicolectomy.. No obstruction. No mucosal thickening. Appendix: No evidence of appendicitis. Intraperitoneal space: Small amount of perihepatic ascites. Small amount of pelvic and intra-abdominal ascites. Right inguinal hernia containing ascites fluid. An ostomy noted in the right upper quadrant of the abdomen. Vasculature: Unremarkable. No abdominal aortic aneurysm. Lymph nodes: Unremarkable. No enlarged lymph nodes. Bladder: Unremarkable as visualized. Reproductive: Unremarkable as visualized. Bones/joints: Unremarkable. No acute fracture. Soft tissues: Unremarkable. IMPRESSION: 1. No acute findings in the left lower quadrant. Patient has had a left hemicolectomy. 2. Small amount of intra-abdominal ascites which has decreased since previous. 3. Hyperdensity noted within the gallbladder could represent sludge or milk of calcium. 4. Interval development of all linear subcapsular and intraparenchymal hyperdensity within the spleen. Amount of pericapsular in intraparenchymal fluid/low-density in the spleen is unchanged. The hyperdensity suggests the presence of developing calcification 5. Right inguinal hernia containing ascites fluid. No change. Six. Hepatomegaly. 7. Nonobstructing punctate calcification left kidney. Focal cortical atrophy upper pole right kidney. No change. Electronically signed by: Adele Beltran On 12/06/2019 18:44:00 PM
[2019-12-06 19:10] VITALS: BP 154/88
--- NOTE | 2019-12-07 08:11 | ED PDOC ---
Post-Departure Follow-Up raymundo francisco faxed formal report of abdl series and ct abd/p for fu August Morales MD December 07, 2019 08:11
== END 2019-12-06 19:48 | disposition left against medical advice (07) ==
LOC: M ED 15:47
DX: K85.90 Acute pancreatitis without necrosis or infection, unspecified (principal); N17.9 Acute kidney failure, unspecified; E86.0 Dehydration; R11.2 Nausea with vomiting, unspecified; R10.9 Unspecified abdominal pain; J90 Pleural effusion, not elsewhere classified; I11.9 Hypertensive heart disease without heart failure; I25.2 Old myocardial infarction; E11.9 Type 2 diabetes mellitus without complications; Z87.19 Personal history of other diseases of the digestive system; Z93.3 Colostomy status; Z93.1 Gastrostomy status; G47.33 Obstructive sleep apnea (adult) (pediatric); F41.9 Anxiety disorder, unspecified; F32.9 Major depressive disorder, single episode, unspecified; Z86.718 Personal history of other venous thrombosis and embolism; Z86.73 Personal history of transient ischemic attack (TIA), and cerebral infarction without residual deficits; F43.10 Post-traumatic stress disorder, unspecified; Z87.891 Personal history of nicotine dependence; Z79.899 Other long term (current) drug therapy; Z79.02 Long term (current) use of antithrombotics/antiplatelets; Z79.01 Long term (current) use of anticoagulants; Z79.4 Long term (current) use of insulin
CPT/HCPCS: 74021; 74176; 80048; 80076; 83605; 83690; 85025; 85610; 85730; 96361; 96374; 99284; J2405

== ENCOUNTER → 2019-12-10 | Outpatient (REF) | payer MEDICARE, MEDICAID ==
[~2019-12-10] MED LIST changes: +PEG1POW PO
[2019-12-10 14:31] LABS: BASO # 0.1 10^3/uL (0.0-0.2); BASO % 0.7 % (0.0-1.0); EOS # 0.4 10^3/uL (0.0-0.5); EOS % 3.3 % (0.0-3.0); HEMATOCRIT 42.5 % (42.0-52.0); HEMOGLOBIN 13.2 g/dl (13.5-17.5); LYMPH # 0.8 10^3/uL (1.5-5.0); LYMPH % 6.7 % (24.0-44.0); MEAN CORPUSCULAR HEMOGLOBIN 29.1 pg (27.0-33.0); MEAN CORPUSCULAR HGB CONC 31.1 g/dl (32.0-36.5); MEAN CORPUSCULAR VOLUME 93.8 fl (80.0-96.0); MONO # 1.4 10^3/uL (0.0-0.8); MONO % 10.8 % (0.0-5.0); NEUTROPHILS # 9.8 10^3/uL (1.5-8.5); NEUTROPHILS % 78.2 % (36.0-66.0); PLATELET COUNT, AUTOMATED 290 10^3/uL (150-450); RED BLOOD COUNT 4.53 10^6/uL (4.30-6.10); WHITE BLOOD COUNT 12.5 10^3/uL (4.0-10.0)
[2019-12-10 14:54] LABS: ALBUMIN 2.9 GM/DL (3.2-5.2); BILIRUBIN,TOTAL 0.6 MG/DL (0.2-1.0); CREATININE FOR GFR 2.21 MG/DL (0.70-1.30); GLOMERULAR FILTRATION RATE 33.6 (>56); MAGNESIUM LEVEL 2.1 MG/DL (1.8-2.4); POTASSIUM SERUM 3.9 MEQ/L (3.5-5.1); TOTAL PROTEIN 6.6 GM/DL (6.4-8.2)
[2019-12-10 15:04] LABS: HEMOGLOBIN A1c 8.5 %
== END ==
LOC: M SFHCPLAZ 13:30
PROVIDERS: ATTEND Physician Assistant Medical
DX: E86.0 Dehydration (principal); E11.69 Type 2 diabetes mellitus with other specified complication; K85.02 Idiopathic acute pancreatitis with infected necrosis; N17.0 Acute kidney failure with tubular necrosis

== ENCOUNTER → 2019-12-17 | Outpatient (REF) | payer MEDICARE, MEDICAID ==
[2019-12-17 17:39] LABS: ALBUMIN 2.7 GM/DL (3.2-5.2); BILIRUBIN,TOTAL 0.4 MG/DL (0.2-1.0); CALCIUM LEVEL 8.6 MG/DL (8.5-10.1); CREATININE FOR GFR 1.98 MG/DL (0.70-1.30); GLOMERULAR FILTRATION RATE 38.1 (>56); TOTAL PROTEIN 6.5 GM/DL (6.4-8.2)
== END ==
LOC: M SFHCPLAZ 15:05
PROVIDERS: ATTEND Physician Assistant Medical
DX: I25.5 Ischemic cardiomyopathy (principal); N18.3 Chronic kidney disease, stage 3 (moderate); K85.02 Idiopathic acute pancreatitis with infected necrosis
CPT/HCPCS: 36415; 80053; 83690; 83880; G0463

== ENCOUNTER → 2020-01-17 | Outpatient (REF) | payer MEDICARE, MEDICAID ==
[2020-01-17 17:08] LABS: ALBUMIN 2.9 GM/DL (3.2-5.2); BILIRUBIN,TOTAL 0.4 MG/DL (0.2-1.0); CREATININE FOR GFR 2.28 MG/DL (0.70-1.30); GLOMERULAR FILTRATION RATE 32.4 (>56); POTASSIUM SERUM 4.7 MEQ/L (3.5-5.1); TOTAL PROTEIN 7.1 GM/DL (6.4-8.2)
== END ==
LOC: M PLALAB 13:09
PROVIDERS: ATTEND Physician Assistant Medical
DX: I25.5 Ischemic cardiomyopathy (principal); N18.3 Chronic kidney disease, stage 3 (moderate)

== ENCOUNTER → 2020-03-12 | Outpatient (REF) | payer MEDICARE, MEDICAID ==
[~2020-03-12] MED LIST changes: +ACET-683 PO; -AMIO200T PO; +AMIO200T3 PO; -ASPI81TA85 PO; +ASPI81TA86 PO; +CIPR500T3 PO; +FERR240T PO; +FLAG500T PO; +PANT40TA29; +PANT40TA29 PO; -PANT40TA3; -PANT40TA3 PO; +SODI325T9 PO; -TAB-TAB PO; +TAB-TAB2 PO; +TIGA300C2 PO
[2020-04-26 11:42] LABS: ALBUMIN 2.1 GM/DL (3.2-5.2); BILIRUBIN,TOTAL 0.6 MG/DL (0.2-1.0); C REACTIVE PROTEIN QUANTITATIV 6.45 MG/DL (0.00-0.30); CALCIUM LEVEL 8.2 MG/DL (8.5-10.1); CREATININE FOR GFR 2.63 MG/DL (0.70-1.30); GLOMERULAR FILTRATION RATE 27.5 (>56); MAGNESIUM LEVEL 1.5 MG/DL (1.8-2.4); POTASSIUM SERUM 3.7 MEQ/L (3.5-5.1); TOTAL PROTEIN 6.5 GM/DL (6.4-8.2)
[2020-05-08 02:34] LABS: BASO # 0.1 10^3/uL (0.0-0.2); BASO % 0.5 % (0.0-1.0); EOS # 0.2 10^3/uL (0.0-0.5); EOS % 1.6 % (0.0-3.0); HEMATOCRIT 33.9 % (42.0-52.0); HEMOGLOBIN 10.8 g/dl (13.5-17.5); LYMPH % 8.7 % (24.0-44.0); MEAN CORPUSCULAR HEMOGLOBIN 26.9 pg (27.0-33.0); MEAN CORPUSCULAR HGB CONC 31.9 g/dl (32.0-36.5); MEAN CORPUSCULAR VOLUME 84.3 fl (80.0-96.0); MONO % 9.4 % (0.0-5.0); NEUTROPHILS # 8.8 10^3/uL (1.5-8.5); NEUTROPHILS % 79.3 % (36.0-66.0); PLATELET COUNT, AUTOMATED 292 10^3/uL (150-450); RED BLOOD COUNT 4.02 10^6/uL (4.30-6.10); WHITE BLOOD COUNT 11.1 10^3/uL (4.0-10.0)
== END ==
LOC: M LAB REF 14:41
PROVIDERS: ATTEND Physician Assistant
DX: I25.5 Ischemic cardiomyopathy (principal)

== ENCOUNTER 2020-03-14 13:20 | Inpatient (IN) | payer MEDICARE, MEDICAID ==
[~2020-03-14 13:20] MED LIST changes: -ACET-683 PO; -CIPR500T3 PO; -FERR240T PO; -FLAG500T PO; -SODI325T9 PO; -TIGA300C2 PO
[2020-03-14] MEDS ORDERED: MORPHINE 2 MG/ML 1ML VIAL (J2270) As Ordered ONE ×2 (15:26→17:37)
[2020-03-14] MEDS ORDERED: ONDANSETRON 4MG/2ML VIAL As Ordered ONE (15:26)
[2020-03-14] MEDS ORDERED: MORPHINE 2 MG/ML 1ML VIAL (J2270) ONE ×2 (15:26→17:37)
[2020-03-14] MEDS ORDERED: ONDANSETRON 4MG/2ML VIAL ONE (15:26)
[2020-03-14] MEDS ORDERED: MAGNESIUM SULFATE 1GM/100ML D5W BAG (10MG/ML) As Ordered ONE (17:37)
[2020-03-14] MEDS ORDERED: MAGNESIUM SULFATE 1GM/100ML D5W BAG (10MG/ML) ONE (17:37)
[2020-03-14] MEDS ORDERED: FUROSEMIDE 40MG/4ML VIAL (J1940) As Ordered ONE (18:53)
[2020-03-14] MEDS ORDERED: FUROSEMIDE 40MG/4ML VIAL (J1940) ONE (18:53)
[2020-03-14] MEDS ORDERED: ACETAMINOPHEN TAB 650MG DOSE (2X325MG) As Ordered ONE (23:22)
[2020-03-14] MEDS ORDERED: LIDOCAINE 5% (LIDODERM) PATCH As Ordered ONE (23:23)
[2020-03-14] MEDS ORDERED: LIDOCAINE 5% (LIDODERM) PATCH ONE (23:23)
[2020-03-15] MEDS ORDERED: ACETAMINOPHEN 325 MG TAB As Ordered ONE (06:16)
[2020-03-15] MEDS ORDERED: ACETAMINOPHEN 325 MG TAB ONE (06:16)
[2020-03-15] MEDS ORDERED: TRIMETHOBENZAMIDE 300 MG CAP ONE (09:00)
[2020-03-15] MEDS ORDERED: APIXABAN 5 MG TAB (ELIQUIS) ONE (09:57)
[2020-03-15] MEDS ORDERED: FLUoxetine 20 MG CAP As Ordered ONE (09:57)
[2020-03-15] MEDS ORDERED: CLOPIDOGREL 75 MG TAB As Ordered ONE (09:57)
[2020-03-15] MEDS ORDERED: metroNIDAZOLE (FLAGYL) 500MG TABLET ONE ×2 (09:57→17:25)
[2020-03-15] MEDS ORDERED: CARVedilol 3.125 MG TAB ONE (09:57)
[2020-03-15] MEDS ORDERED: FLUoxetine 20 MG CAP ONE (09:57)
[2020-03-15] MEDS ORDERED: AMIODARONE 200 MG TAB (PACERONE) ONE (09:57)
[2020-03-15] MEDS ORDERED: FUROSEMIDE 40MG/4ML VIAL (J1940) ONE (09:57)
[2020-03-15] MEDS ORDERED: FUROSEMIDE 40MG/4ML VIAL (J1940) As Ordered ONE (09:57)
[2020-03-15] MEDS ORDERED: CLOPIDOGREL 75 MG TAB ONE (09:57)
[2020-03-15] MEDS ORDERED: APIXABAN 5 MG TAB (ELIQUIS) As Ordered ONE (09:57)
[2020-03-15] MEDS ORDERED: PANTOPRAZOLE 40MG TAB (PROTONIX) ONE (09:57)
[2020-03-15] MEDS ORDERED: CIPROFLOXACIN 500MG TABLET ONE (09:57)
[2020-03-15] MEDS ORDERED: CARVedilol 3.125 MG TAB As Ordered ONE (09:58)
[2020-03-15] MEDS ORDERED: PANTOPRAZOLE 40MG TAB (PROTONIX) As Ordered ONE (09:58)
[2020-03-15] MEDS ORDERED: metroNIDAZOLE (FLAGYL) 500MG TABLET As Ordered ONE ×2 (09:58→17:25)
[2020-03-15] MEDS ORDERED: AMIODARONE 200 MG TAB (PACERONE) As Ordered ONE (09:58)
[2020-03-15] MEDS ORDERED: CIPROFLOXACIN 500MG TABLET As Ordered ONE (09:58)
[2020-03-15] MEDS ORDERED: HumaLOG INSULIN (NovoLOG) PER UNIT ONE ×2 (14:48→18:40)
[2020-03-15] MEDS ORDERED: HumaLOG INSULIN (NovoLOG) PER UNIT As Ordered ONE ×2 (14:48→18:40)
[2020-03-16] MEDS ORDERED: APIXABAN 5 MG TAB (ELIQUIS) As Ordered ONE ×2 (09:26→20:55)
[2020-03-16] MEDS ORDERED: FLUoxetine 20 MG CAP As Ordered ONE (09:26)
[2020-03-16] MEDS ORDERED: FUROSEMIDE 40MG/4ML VIAL (J1940) As Ordered ONE (09:26)
[2020-03-16] MEDS ORDERED: CARVedilol 3.125 MG TAB ONE ×2 (09:26→20:55)
[2020-03-16] MEDS ORDERED: AMIODARONE 200 MG TAB (PACERONE) ONE ×2 (09:26→20:55)
[2020-03-16] MEDS ORDERED: PANTOPRAZOLE 40MG TAB (PROTONIX) ONE (09:26)
[2020-03-16] MEDS ORDERED: CLOPIDOGREL 75 MG TAB ONE (09:26)
[2020-03-16] MEDS ORDERED: CLOPIDOGREL 75 MG TAB As Ordered ONE (09:26)
[2020-03-16] MEDS ORDERED: APIXABAN 5 MG TAB (ELIQUIS) ONE ×2 (09:26→20:55)
[2020-03-16] MEDS ORDERED: metroNIDAZOLE (FLAGYL) 500MG TABLET ONE ×3 (09:26→20:55)
[2020-03-16] MEDS ORDERED: FLUoxetine 20 MG CAP ONE (09:26)
[2020-03-16] MEDS ORDERED: CIPROFLOXACIN 500MG TABLET ONE (09:26)
[2020-03-16] MEDS ORDERED: FUROSEMIDE 40MG/4ML VIAL (J1940) ONE (09:26)
[2020-03-16] MEDS ORDERED: PANTOPRAZOLE 40MG TAB (PROTONIX) As Ordered ONE (09:27)
[2020-03-16] MEDS ORDERED: CIPROFLOXACIN 500MG TABLET As Ordered ONE (09:27)
[2020-03-16] MEDS ORDERED: metroNIDAZOLE (FLAGYL) 500MG TABLET As Ordered ONE ×3 (09:27→20:55)
[2020-03-16] MEDS ORDERED: AMIODARONE 200 MG TAB (PACERONE) As Ordered ONE ×2 (09:27→20:55)
[2020-03-16] MEDS ORDERED: CARVedilol 3.125 MG TAB As Ordered ONE ×2 (09:28→20:55)
[2020-03-16] MEDS ORDERED: HumaLOG INSULIN (NovoLOG) PER UNIT As Ordered ONE ×2 (11:48→17:25)
[2020-03-16] MEDS ORDERED: HumaLOG INSULIN (NovoLOG) PER UNIT ONE ×2 (11:48→17:23)
[2020-03-16] MEDS ORDERED: ursodioL 300 MG CAP ONE (13:00)
[2020-03-16] MEDS ORDERED: ONDANSETRON 4MG/2ML VIAL As Ordered ONE ×2 (17:23→20:55)
[2020-03-16] MEDS ORDERED: ONDANSETRON 4MG/2ML VIAL ONE ×2 (17:23→20:55)
[2020-03-16] MEDS ORDERED: PERCOCET 5MG/325MG TAB ONE (17:45)
[2020-03-16] MEDS ORDERED: PERCOCET 5MG/325MG TAB As Ordered ONE (17:45)
[2020-03-17] MEDS ORDERED: FLUoxetine 20 MG CAP As Ordered ONE (10:15)
[2020-03-17] MEDS ORDERED: metroNIDAZOLE (FLAGYL) 500MG TABLET ONE ×3 (10:15→21:31)
[2020-03-17] MEDS ORDERED: CLOPIDOGREL 75 MG TAB ONE (10:15)
[2020-03-17] MEDS ORDERED: CARVedilol 3.125 MG TAB ONE ×2 (10:15→21:31)
[2020-03-17] MEDS ORDERED: APIXABAN 5 MG TAB (ELIQUIS) ONE ×2 (10:15→21:31)
[2020-03-17] MEDS ORDERED: PANTOPRAZOLE 40MG TAB (PROTONIX) ONE (10:15)
[2020-03-17] MEDS ORDERED: FLUoxetine 20 MG CAP ONE (10:15)
[2020-03-17] MEDS ORDERED: AMIODARONE 200 MG TAB (PACERONE) ONE ×2 (10:15→21:31)
[2020-03-17] MEDS ORDERED: CLOPIDOGREL 75 MG TAB As Ordered ONE (10:16)
[2020-03-17] MEDS ORDERED: PANTOPRAZOLE 40MG TAB (PROTONIX) As Ordered ONE (10:16)
[2020-03-17] MEDS ORDERED: APIXABAN 5 MG TAB (ELIQUIS) As Ordered ONE ×2 (10:16→21:31)
[2020-03-17] MEDS ORDERED: CARVedilol 3.125 MG TAB As Ordered ONE ×2 (10:17→21:32)
[2020-03-17] MEDS ORDERED: metroNIDAZOLE (FLAGYL) 500MG TABLET As Ordered ONE ×3 (10:17→21:31)
[2020-03-17] MEDS ORDERED: AMIODARONE 200 MG TAB (PACERONE) As Ordered ONE ×2 (10:17→21:32)
[2020-03-17] MEDS ORDERED: CIPROFLOXACIN 500MG TABLET ONE (11:56)
[2020-03-17] MEDS ORDERED: HumaLOG INSULIN (NovoLOG) PER UNIT As Ordered ONE ×2 (11:56→17:14)
[2020-03-17] MEDS ORDERED: HumaLOG INSULIN (NovoLOG) PER UNIT ONE ×2 (11:56→17:14)
[2020-03-17] MEDS ORDERED: CIPROFLOXACIN 500MG TABLET As Ordered ONE (11:56)
[2020-03-17] MEDS ORDERED: ONDANSETRON 4MG/2ML VIAL ONE (17:20)
[2020-03-17] MEDS ORDERED: ONDANSETRON 4MG/2ML VIAL As Ordered ONE (17:20)
[2020-03-18] MEDS ORDERED: CLOPIDOGREL 75 MG TAB As Ordered ONE (08:01)
[2020-03-18] MEDS ORDERED: FLUoxetine 20 MG CAP ONE (08:01)
[2020-03-18] MEDS ORDERED: CLOPIDOGREL 75 MG TAB ONE (08:01)
[2020-03-18] MEDS ORDERED: PERCOCET 5MG/325MG TAB ONE ×3 (08:01→19:24)
[2020-03-18] MEDS ORDERED: PANTOPRAZOLE 40MG TAB (PROTONIX) As Ordered ONE (08:01)
[2020-03-18] MEDS ORDERED: FLUoxetine 20 MG CAP As Ordered ONE (08:01)
[2020-03-18] MEDS ORDERED: AMIODARONE 200 MG TAB (PACERONE) ONE ×2 (08:01→21:36)
[2020-03-18] MEDS ORDERED: HumaLOG INSULIN (NovoLOG) PER UNIT ONE ×2 (08:01→12:18)
[2020-03-18] MEDS ORDERED: APIXABAN 5 MG TAB (ELIQUIS) As Ordered ONE ×2 (08:01→21:36)
[2020-03-18] MEDS ORDERED: PANTOPRAZOLE 40MG TAB (PROTONIX) ONE (08:01)
[2020-03-18] MEDS ORDERED: metroNIDAZOLE (FLAGYL) 500MG TABLET ONE ×3 (08:01→21:36)
[2020-03-18] MEDS ORDERED: APIXABAN 5 MG TAB (ELIQUIS) ONE ×2 (08:01→21:36)
[2020-03-18] MEDS ORDERED: CARVedilol 3.125 MG TAB ONE ×2 (08:01→21:36)
[2020-03-18] MEDS ORDERED: HumaLOG INSULIN (NovoLOG) PER UNIT As Ordered ONE (08:02)
[2020-03-18] MEDS ORDERED: metroNIDAZOLE (FLAGYL) 500MG TABLET As Ordered ONE ×2 (08:02→21:36)
[2020-03-18] MEDS ORDERED: CARVedilol 3.125 MG TAB As Ordered ONE ×2 (08:03→21:37)
[2020-03-18] MEDS ORDERED: PERCOCET 5MG/325MG TAB As Ordered ONE (08:03)
[2020-03-18] MEDS ORDERED: AMIODARONE 200 MG TAB (PACERONE) As Ordered ONE ×2 (08:03→21:37)
[2020-03-18] MEDS ORDERED: NYSTATIN 100,000 UNITS/GM TOPICAL PWD 15 GM ONE (09:00)
[2020-03-18] MEDS ORDERED: CIPROFLOXACIN 500MG TABLET ONE ×2 (12:37→13:00)
[2020-03-18] MEDS ORDERED: ursodioL 300 MG CAP ONE (13:00)
[2020-03-18] MEDS ORDERED: ONDANSETRON 4MG/2ML VIAL ONE (15:48)
[2020-03-18] MEDS ORDERED: GLUCOSE 4GM CHEW TABLET ONE (16:24)
[2020-03-18] MEDS ORDERED: TAMSULOSIN 0.4 MG CAP As Ordered ONE (16:49)
[2020-03-18] MEDS ORDERED: TAMSULOSIN 0.4 MG CAP ONE (16:49)
[2020-03-19] MEDS ORDERED: FLUoxetine 20 MG CAP ONE (08:53)
[2020-03-19] MEDS ORDERED: PANTOPRAZOLE 40MG TAB (PROTONIX) ONE (08:53)
[2020-03-19] MEDS ORDERED: HumaLOG INSULIN (NovoLOG) PER UNIT ONE ×2 (08:53→17:09)
[2020-03-19] MEDS ORDERED: metroNIDAZOLE (FLAGYL) 500MG TABLET ONE ×3 (08:53→21:57)
[2020-03-19] MEDS ORDERED: CARVedilol 3.125 MG TAB ONE ×2 (08:53→21:57)
[2020-03-19] MEDS ORDERED: APIXABAN 5 MG TAB (ELIQUIS) ONE ×2 (08:53→21:57)
[2020-03-19] MEDS ORDERED: FLUoxetine 20 MG CAP As Ordered ONE (08:53)
[2020-03-19] MEDS ORDERED: CLOPIDOGREL 75 MG TAB ONE (08:53)
[2020-03-19] MEDS ORDERED: AMIODARONE 200 MG TAB (PACERONE) ONE ×2 (08:53→21:57)
[2020-03-19] MEDS ORDERED: TAMSULOSIN 0.4 MG CAP ONE (08:53)
[2020-03-19] MEDS ORDERED: PANTOPRAZOLE 40MG TAB (PROTONIX) As Ordered ONE (08:54)
[2020-03-19] MEDS ORDERED: CLOPIDOGREL 75 MG TAB As Ordered ONE (08:54)
[2020-03-19] MEDS ORDERED: APIXABAN 5 MG TAB (ELIQUIS) As Ordered ONE ×2 (08:54→21:57)
[2020-03-19] MEDS ORDERED: TAMSULOSIN 0.4 MG CAP As Ordered ONE (08:54)
[2020-03-19] MEDS ORDERED: HumaLOG INSULIN (NovoLOG) PER UNIT As Ordered ONE ×2 (08:55→17:09)
[2020-03-19] MEDS ORDERED: metroNIDAZOLE (FLAGYL) 500MG TABLET As Ordered ONE ×3 (08:55→21:57)
[2020-03-19] MEDS ORDERED: CARVedilol 3.125 MG TAB As Ordered ONE ×2 (08:56→21:58)
[2020-03-19] MEDS ORDERED: AMIODARONE 200 MG TAB (PACERONE) As Ordered ONE ×2 (08:56→21:58)
[2020-03-19] MEDS ORDERED: FUROSEMIDE 40 MG TAB As Ordered ONE ×2 (12:17→21:57)
[2020-03-19] MEDS ORDERED: FUROSEMIDE 40 MG TAB ONE ×2 (12:17→21:57)
[2020-03-20] MEDS ORDERED: HumaLOG INSULIN (NovoLOG) PER UNIT ONE (08:24)
[2020-03-20] MEDS ORDERED: CARVedilol 3.125 MG TAB ONE (08:24)
[2020-03-20] MEDS ORDERED: CIPROFLOXACIN 500MG TABLET ONE (08:24)
[2020-03-20] MEDS ORDERED: FLUoxetine 20 MG CAP ONE (08:24)
[2020-03-20] MEDS ORDERED: FUROSEMIDE 40 MG TAB ONE (08:24)
[2020-03-20] MEDS ORDERED: PANTOPRAZOLE 40MG TAB (PROTONIX) ONE (08:24)
[2020-03-20] MEDS ORDERED: APIXABAN 5 MG TAB (ELIQUIS) ONE (08:24)
[2020-03-20] MEDS ORDERED: TAMSULOSIN 0.4 MG CAP ONE (08:24)
[2020-03-20] MEDS ORDERED: AMIODARONE 200 MG TAB (PACERONE) ONE (08:24)
[2020-03-20] MEDS ORDERED: metroNIDAZOLE (FLAGYL) 500MG TABLET ONE ×2 (08:24→15:35)
[2020-03-20] MEDS ORDERED: CLOPIDOGREL 75 MG TAB ONE (08:24)
[2020-03-20] MEDS ORDERED: ONDANSETRON 4MG/2ML VIAL ONE (08:45)
[2020-03-20] MEDS ORDERED: metroNIDAZOLE (FLAGYL) 500MG TABLET As Ordered ONE (15:35)
--- NOTE | 2020-04-23 10:29 | ECGEPIP ---
ELECTRONIC VENTRICULAR PACEMAKER ABNORMAL RHYTHM ECG SEE SCANNED DOWNTIME REPORT MTDD
[2020-04-30 11:54] LABS: INR 2.91; PROTHROMBIN TIME 31.1 SECONDS (12.5-14.3)
[2020-04-30 12:11] LABS: APPEARANCE, URINE HAZY (CLEAR); BACTERIA, URINE AUTO NEGATIVE (NEGATIVE); BILIRUBIN, URINE AUTO NEGATIVE (NEGATIVE); BLOOD, URINE BLOOD 3+ (NEGATIVE); COLOR, URINE AMBER (YELLOW); GLUCOSE, URINE (UA) AUTO NEGATIVE (NEGATIVE); KETONE, URINE AUTO NEGATIVE (NEGATIVE); LEUKOCYTE ESTERASE, URINE AUTO TRACE (NEGATIVE); NITRITE, URINE AUTO NEGATIVE (NEGATIVE); PROTEIN, URINE AUTO 2+ mg/dL (NEGATIVE); RBC, URINE AUTO 31 /HPF (0-3); SPECIFIC GRAVITY URINE AUTO 1.018 (1.002-1.035); SQUAMOUS EPITHELIAL CELL UR AU 0 /HPF (0-6); UROBILINOGEN, URINE AUTO 0.2 mg/dL (0.0-2.0); WBC, URINE AUTO 12 /HPF (0-3)
[2020-04-30 17:18] LABS: BASO # 0.1 10^3/uL (0.0-0.2); BASO % 0.6 % (0.0-1.0); EOS # 0.2 10^3/uL (0.0-0.5); EOS % 1.5 % (0.0-3.0); HEMATOCRIT 35.9 % (42.0-52.0); HEMOGLOBIN 11.3 g/dl (13.5-17.5); LYMPH # 1.2 10^3/uL (1.5-5.0); LYMPH % 12.5 % (24.0-44.0); MEAN CORPUSCULAR HEMOGLOBIN 26.8 pg (27.0-33.0); MEAN CORPUSCULAR HGB CONC 31.5 g/dl (32.0-36.5); MEAN CORPUSCULAR VOLUME 85.1 fl (80.0-96.0); MONO # 0.9 10^3/uL (0.0-0.8); MONO % 9.4 % (0.0-5.0); NEUTROPHILS # 7.4 10^3/uL (1.5-8.5); NEUTROPHILS % 75.5 % (36.0-66.0); PLATELET COUNT, AUTOMATED 350 10^3/uL (150-450); RED BLOOD COUNT 4.22 10^6/uL (4.30-6.10); WHITE BLOOD COUNT 9.8 10^3/uL (4.0-10.0)
[2020-04-30 18:06] LABS: ERYTHROCYTE SEDIMENTATION RATE 44 mm/hr (0-20)
[2020-05-01 18:42] LABS: BASO # 0.1 10^3/uL (0.0-0.2); EOS # 0.1 10^3/uL (0.0-0.5); EOS % 1.5 % (0.0-3.0); HEMATOCRIT 35.9 % (42.0-52.0); HEMOGLOBIN 11.4 g/dl (13.5-17.5); LYMPH # 1.1 10^3/uL (1.5-5.0); LYMPH % 12.4 % (24.0-44.0); MEAN CORPUSCULAR HEMOGLOBIN 27.3 pg (27.0-33.0); MEAN CORPUSCULAR HGB CONC 31.8 g/dl (32.0-36.5); MEAN CORPUSCULAR VOLUME 85.9 fl (80.0-96.0); MONO # 1.1 10^3/uL (0.0-0.8); MONO % 13.1 % (0.0-5.0); NEUTROPHILS # 6.3 10^3/uL (1.5-8.5); NEUTROPHILS % 71.5 % (36.0-66.0); PLATELET COUNT, AUTOMATED 359 10^3/uL (150-450); RED BLOOD COUNT 4.18 10^6/uL (4.30-6.10); WHITE BLOOD COUNT 8.7 10^3/uL (4.0-10.0)
[2020-05-06 11:21] LABS: HEMATOCRIT 34.9 % (42.0-52.0); HEMOGLOBIN 11.1 g/dl (13.5-17.5); MEAN CORPUSCULAR HEMOGLOBIN 26.9 pg (27.0-33.0); MEAN CORPUSCULAR HGB CONC 31.8 g/dl (32.0-36.5); MEAN CORPUSCULAR VOLUME 84.7 fl (80.0-96.0); PLATELET COUNT, AUTOMATED 357 10^3/uL (150-450); RED BLOOD COUNT 4.12 10^6/uL (4.30-6.10); WHITE BLOOD COUNT 8.5 10^3/uL (4.0-10.0)
[2020-05-07 09:35] LABS: HEMATOCRIT 35.1 % (42.0-52.0); HEMOGLOBIN 11.1 g/dl (13.5-17.5); MEAN CORPUSCULAR HEMOGLOBIN 27.3 pg (27.0-33.0); MEAN CORPUSCULAR HGB CONC 31.6 g/dl (32.0-36.5); MEAN CORPUSCULAR VOLUME 86.5 fl (80.0-96.0); PLATELET COUNT, AUTOMATED 323 10^3/uL (150-450); RED BLOOD COUNT 4.06 10^6/uL (4.30-6.10); WHITE BLOOD COUNT 9.8 10^3/uL (4.0-10.0)
[2020-05-10 01:01] LABS: HEMOGLOBIN 10.7 g/dl (13.5-17.5); MEAN CORPUSCULAR HEMOGLOBIN 27.5 pg (27.0-33.0); MEAN CORPUSCULAR HGB CONC 31.5 g/dl (32.0-36.5); MEAN CORPUSCULAR VOLUME 87.4 fl (80.0-96.0); PLATELET COUNT, AUTOMATED 282 10^3/uL (150-450); RED BLOOD COUNT 3.89 10^6/uL (4.30-6.10); WHITE BLOOD COUNT 8.4 10^3/uL (4.0-10.0)
[2020-05-10 02:32] LABS: APPEARANCE, URINE HAZY (CLEAR); BACTERIA, URINE AUTO NEGATIVE (NEGATIVE); BILIRUBIN, URINE AUTO NEGATIVE (NEGATIVE); BLOOD, URINE BLOOD 3+ (NEGATIVE); COLOR, URINE AMBER (YELLOW); GLUCOSE, URINE (UA) AUTO NEGATIVE (NEGATIVE); KETONE, URINE AUTO NEGATIVE (NEGATIVE); LEUKOCYTE ESTERASE, URINE AUTO NEGATIVE (NEGATIVE); NITRITE, URINE AUTO NEGATIVE (NEGATIVE); PROTEIN, URINE AUTO 2+ mg/dL (NEGATIVE); RBC, URINE AUTO 182 /HPF (0-3); SPECIFIC GRAVITY URINE AUTO 1.016 (1.002-1.035); SQUAMOUS EPITHELIAL CELL UR AU 0 /HPF (0-6); UROBILINOGEN, URINE AUTO 0.2 mg/dL (0.0-2.0); WBC, URINE AUTO 7 /HPF (0-3)
[2020-05-10 16:42] LABS: HEMATOCRIT 33.1 % (42.0-52.0); HEMOGLOBIN 10.5 g/dl (13.5-17.5); MEAN CORPUSCULAR HEMOGLOBIN 27.7 pg (27.0-33.0); MEAN CORPUSCULAR HGB CONC 31.7 g/dl (32.0-36.5); MEAN CORPUSCULAR VOLUME 87.3 fl (80.0-96.0); PLATELET COUNT, AUTOMATED 263 10^3/uL (150-450); RED BLOOD COUNT 3.79 10^6/uL (4.30-6.10)
[2020-05-16 19:12] LABS: HEMATOCRIT 34.5 % (42.0-52.0); HEMOGLOBIN 10.8 g/dl (13.5-17.5); MEAN CORPUSCULAR HEMOGLOBIN 27.6 pg (27.0-33.0); MEAN CORPUSCULAR HGB CONC 31.3 g/dl (32.0-36.5); MEAN CORPUSCULAR VOLUME 88.2 fl (80.0-96.0); PLATELET COUNT, AUTOMATED 288 10^3/uL (150-450); RED BLOOD COUNT 3.91 10^6/uL (4.30-6.10); WHITE BLOOD COUNT 10.1 10^3/uL (4.0-10.0)
[2020-06-02 20:37] LABS: ALBUMIN 2.1 GM/DL (3.2-5.2); BILIRUBIN,DIRECT 0.4 MG/DL (0.0-0.2); BILIRUBIN,TOTAL 0.7 MG/DL (0.2-1.0); C REACTIVE PROTEIN QUANTITATIV 4.99 MG/DL (0.00-0.30); CK-MB VALUE MASS 1.8 NG/ML (<3.6); CREATININE FOR GFR 2.58 MG/DL (0.70-1.30); GLOMERULAR FILTRATION RATE 28.1 (>56); MAGNESIUM LEVEL 1.5 MG/DL (1.8-2.4); MB/CK RELATIVE INDEX 5.81 (< OR =4); POTASSIUM SERUM 4.1 MEQ/L (3.5-5.1); THYROID STIMULATING HORMONE 5.3 uIU/ML (0.358-3.740); TOTAL PROTEIN 6.4 GM/DL (6.4-8.2); TROPONIN I 0.04 NG/ML (< 0.10)
[2020-06-08 23:12] LABS: ALBUMIN 2.1 GM/DL (3.2-5.2); BILIRUBIN,TOTAL 0.8 MG/DL (0.2-1.0); CALCIUM LEVEL 8.3 MG/DL (8.5-10.1); CREATININE FOR GFR 2.91 MG/DL (0.70-1.30); GLOMERULAR FILTRATION RATE 24.4 (>56); MAGNESIUM LEVEL 1.8 MG/DL (1.8-2.4); MB/CK RELATIVE INDEX 5.88 (< OR =4); POTASSIUM SERUM 4.2 MEQ/L (3.5-5.1); TOTAL PROTEIN 6.4 GM/DL (6.4-8.2); TROPONIN I 0.04 NG/ML (< 0.10)
[2020-06-08 23:12] LABS: CK-MB VALUE MASS 2.2 NG/ML (<3.6); MB/CK RELATIVE INDEX 5.5 (< OR =4); TROPONIN I 0.03 NG/ML (< 0.10)
[2020-06-08 23:12] LABS: CK-MB VALUE MASS 1.8 NG/ML (<3.6); MB/CK RELATIVE INDEX 4.86 (< OR =4); TROPONIN I 0.05 NG/ML (< 0.10)
[2020-06-09 04:12] LABS: ALBUMIN 2.1 GM/DL (3.2-5.2); BILIRUBIN,TOTAL 0.7 MG/DL (0.2-1.0); CALCIUM LEVEL 8.7 MG/DL (8.5-10.1); CREATININE FOR GFR 3.34 MG/DL (0.70-1.30); GLOMERULAR FILTRATION RATE 20.9 (>56); MAGNESIUM LEVEL 1.8 MG/DL (1.8-2.4); POTASSIUM SERUM 4.3 MEQ/L (3.5-5.1); TOTAL PROTEIN 6.4 GM/DL (6.4-8.2)
[2020-06-10 04:02] LABS: BILIRUBIN,TOTAL 0.5 MG/DL (0.2-1.0); CALCIUM LEVEL 8.4 MG/DL (8.5-10.1); CREATININE FOR GFR 3.46 MG/DL (0.70-1.30); MAGNESIUM LEVEL 1.7 MG/DL (1.8-2.4); POTASSIUM SERUM 3.7 MEQ/L (3.5-5.1); TOTAL PROTEIN 6.2 GM/DL (6.4-8.2)
[2020-06-10 15:15] LABS: CREATININE FOR GFR 3.32 MG/DL (0.70-1.30); POTASSIUM SERUM 3.8 MEQ/L (3.5-5.1)
[2020-06-10 15:16] LABS: CALCIUM LEVEL 7.9 MG/DL (8.5-10.1); MAGNESIUM LEVEL 1.8 MG/DL (1.8-2.4); PHOSPHORUS LEVEL 3.6 MG/DL (2.5-4.9)
[2020-06-10 15:17] LABS: CALCIUM LEVEL 8.2 MG/DL (8.5-10.1); CREATININE FOR GFR 3.42 MG/DL (0.70-1.30); GLOMERULAR FILTRATION RATE 20.3 (>56); PHOSPHORUS LEVEL 3.6 MG/DL (2.5-4.9); POTASSIUM SERUM 3.9 MEQ/L (3.5-5.1)
[2020-06-10 15:18] LABS: ALBUMIN 2.1 GM/DL (3.2-5.2)
[2020-06-10 22:34] LABS: CREATININE FOR GFR 3.09 MG/DL (0.70-1.30); GLOMERULAR FILTRATION RATE 22.8 (>56); POTASSIUM SERUM 3.9 MEQ/L (3.5-5.1)
[2020-06-10 22:35] LABS: CALCIUM LEVEL 7.8 MG/DL (8.5-10.1); MAGNESIUM LEVEL 1.7 MG/DL (1.8-2.4); PHOSPHORUS LEVEL 3.5 MG/DL (2.5-4.9)
[2020-06-14 05:27] LABS: CALCIUM LEVEL 8.2 MG/DL (8.5-10.1); CREATININE FOR GFR 3.06 MG/DL (0.70-1.30); GLOMERULAR FILTRATION RATE 23.1 (>56); MAGNESIUM LEVEL 1.5 MG/DL (1.8-2.4); PHOSPHORUS LEVEL 3.2 MG/DL (2.5-4.9); POTASSIUM SERUM 4.2 MEQ/L (3.5-5.1)
== END 2020-03-20 18:15 | disposition home health service (06) | DRG 292 ==
LOC: M ED 13:20 → M PCU 22:00
PROVIDERS: ADMIT Internal Medicine; ATTEND Internal Medicine
DX: I50.21 Acute systolic (congestive) heart failure (principal); N17.9 Acute kidney failure, unspecified; E46 Unspecified protein-calorie malnutrition; N18.4 Chronic kidney disease, stage 4 (severe); N20.1 Calculus of ureter; K86.1 Other chronic pancreatitis; I25.10 Atherosclerotic heart disease of native coronary artery without angina pectoris; Z79.899 Other long term (current) drug therapy; Z79.01 Long term (current) use of anticoagulants; Z86.711 Personal history of pulmonary embolism; Z86.718 Personal history of other venous thrombosis and embolism; F32.9 Major depressive disorder, single episode, unspecified; Z86.73 Personal history of transient ischemic attack (TIA), and cerebral infarction without residual deficits; E11.9 Type 2 diabetes mellitus without complications; J44.9 Chronic obstructive pulmonary disease, unspecified; K21.9 Gastro-esophageal reflux disease without esophagitis; I25.5 Ischemic cardiomyopathy; D64.9 Anemia, unspecified

== ENCOUNTER 2020-03-24 17:20 | Inpatient (IN) | payer MEDICARE, MEDICAID ==
[~2020-03-24] VITALS: Ht 175.3 cm; Wt 73.5 kg
[2020-03-24] MEDS ORDERED: MORPHINE 4 MG/ML 1ML VIAL/SYRINGE (J2270) As Ordered ONE ×2 (17:43→19:39)
[2020-03-24] MEDS ORDERED: ONDANSETRON 4MG/2ML VIAL As Ordered ONE (17:43)
[2020-03-24] MEDS ORDERED: FLAG500T PO (20:48)
[2020-03-24] MEDS ORDERED: TIGA300C2 PO (20:48)
[2020-03-24] MEDS ORDERED: CIPR500T3 PO (20:48)
[2020-03-24] MEDS ORDERED: FERR240T PO (20:48)
[2020-03-24] MEDS ORDERED: ACET-683 PO (20:48)
[2020-03-24] MEDS ORDERED: SODI325T9 PO (20:48)
[2020-03-24] MEDS ORDERED: SPIR1CAP INH (20:51)
[2020-03-24] MEDS ORDERED: ACETAMINOPHEN TAB 650MG DOSE (2X325MG) PO PRN (21:30)
[2020-03-24] MEDS ORDERED: DEXTROSE 50% 50 ML SYRINGE IV PRN (21:30)
[2020-03-24] MEDS ORDERED: GLUCOSE 4GM CHEW TABLET PO PRN (21:30)
[2020-03-24] MEDS ORDERED: GLUCAGON INJ 1MG VIAL SC PRN (21:30)
[2020-03-24 23:55] VITALS: BP 129/84
[2020-03-25] MEDS: HumaLOG INSULIN (NovoLOG) PER UNIT SC SCH ×4 (00:56→18:00)
[2020-03-25] MEDS: D5W/0.9% SODIUM CHLORIDE 1,000 ML IV SCH ×2 (00:56→12:53)
[2020-03-25] MEDS ORDERED: ONDANSETRON 4 MG TAB PO PRN (01:30)
[2020-03-25] MEDS ORDERED: NITROGLYCERIN 0.4 MG SUBL TABLET SL PRN (01:30)
[2020-03-25] MEDS ORDERED: ALBUTEROL 90 MCG/ACT 8GM HFA INHALER INH PRN (01:30)
--- NOTE | 2020-03-25 01:33 | HPEPDOC ---
[facility] Medical History & Physical Date of Admission Mar 24, 2020 Date of Service: Mar 24, 2020 History and Physical Patient is a 49 year old male with PMH CAD s/p CABG and stenting, dilated cardiomyopathy (previously documented 30% but patient reports 20%), Afib, IDDM, HTN, CVA, COPD, FROILAN not on CPAP, HLD, Depression, IgG4 related disease, chronic pancreatitis with pseudocyst, has feeding tube and colostomy presented to the ER with complaints of abdominal pain. Patient states that his pain is chronic and this time recurred about 2 days ago and described as initially intermittent but now chronic, sharp, localized to the L. flank without noticeable radiating and 9/10 in intensity. Of note, patient was reportedly admitted here 2 weeks ago for splenic infection and was on on abx at that time? Presumably on paper chart and cannot see on computer at this time. Patient stated that he was treated for pancreatitis at that time but somehow later found to have splenic infarction. He has had dark output from his feeding tube since then. In addition, further review of note from last admission in August that patient was admitted at [facility] earlier in the year for hemorrhagic pancreatic cyst and splenic infarct at that time as well. In ER, he was found to have elevated Lipase of [address] abdomen/pelvis shows fluid around spleen/pancreatic but otherwise no clear evidence of infection. Patient has been afebrile, no leukocytosis were noted on todays bloodwork. Apart from the abdominal pain, he also reports subjective fever/chills with nausea. Poor historian, most history obtained from previous admission documentation. PMH- Refer to HPI PSH- Vasectomy, Cholecystectomy, ICD placement and removal, sigmoid colectomy with end sigmoid colostomy, feeding tube placement. SH- currently smokes 2 cigs/day, previously smokes much more. Denies alcohol or drug use. FH- Mother: COPD and cancer of unknown type ALLERGIES: Please see below. REVIEW OF SYSTEMS: 10 point ROS negative except as above HOME MEDICATIONS: Please see below. PHYSICAL EXAMINATION: - General: Lying in bed comfortably, Speaking in full sentences, AAOx3 - HEENT: Atraumatic, PERRLA - CVS: +S1S2 - Lungs: Good air entry bilaterally, No appreciable wheezing / rales / rhonchi - Abdomen: Soft, Non-distended, Mild generalized L. sided tenderness - Extremities: No extremity swelling, limbs intact - Skin: Warm and dry - Neuro: No focal motor or sensory deficit LABORATORY DATA: See below. Assessment and Plan: 1.Abdominal pain likely 2/2 Acute on chronic pancreatitis - Lipase 900s, recurrent pain. Unknown etiology, denies alcohol use, patient unsure if it was due to cholecystitis in the past or not but nonetheless was s/p cholecystectomy. - Pain control. IVF with D5NS at slower rate given severe cardiomyopathy/CHF in setting of diabetes. - NPO at this time. - Given recent splenic problems, would keep a close watch on potential problems with the spleen as well. No evidence of sepsis or infection at this time. - patient on prolong course of cipro and flagyl at home, resume. - Should try to obtain records in AM from previous admission to see what was done at that time including with spleen, feeding tubes, pancreatitis, etc. 2.CAD s/p CABG and stent placement - resume home medications. 3. Stable COPD - Resume home meds. PRN duoneb for SOB. 4. FROILAN - reports that he is not using CPAP at this time. 5. dilated cardiomyopathy with EF 20-30% - resume home meds. - Unsure if patient is on Eliquis because of this? 6. chronic HTN - Resume oral home meds within 24 if possible with early PO intake if improvement in abdominal pain. 7. HLD - Resume home med. 8. DM - Consistent carbohydrate diet. - Insulin sliding scale plus home medications. - D5 drip at low rate to prevent hypoglycemia. DVT ppx: On eliquis and SCD Code status: Full code Home Medications Scheduled Amiodarone Hcl (Pacerone) 200 Mg Tablet, 200 MG PO BID Apixaban (Eliquis) 5 Mg Tablet, 5 MG PO BID Carvedilol (Carvedilol) 3.125 Mg Tablet, 3.125 MG PO BID Ciprofloxacin HCl (Ciprofloxacin HCl) 500 Mg Tablet, 500 MG PO DAILY Clopidogrel Bisulfate (Clopidogrel) 75 Mg Tablet, 75 MG PO DAILY Ferrous Gluconate (Ferrous Gluconate) 240 Mg Tablet, 240 MG PO BID Fluoxetine Hcl (Fluoxetine HCl) 40 Mg Capsule, 40 MG PO DAILY Furosemide (Furosemide) 40 Mg Tablet, 40 MG PO BID Insulin Human Lispro (Humalog) 100 Unit/1 Ml Vial, 1 DOSE SC ACHS SLIDING SCALE Metronidazole (Flagyl) 500 Mg Tablet, 500 MG PO Q8H Multivitamin (Tab-A-Claudia) 1 Each Tablet, 1 TAB PO DAILY Pantoprazole Sodium (Pantoprazole Sodium) 40 Mg Tablet.dr, 40 MG PO DAILY Sodium Bicarbonate (Sodium Bicarbonate) 325 Mg Tablet, 1,300 MG PO DAILY Tiotropium [place] (Spiriva) 18 Mcg Cap.w.dev, 1 INHALATION INH DAILY Trimethobenzamide HCl (Tigan) 300 Mg Capsule, 300 MG PO TID Ursodiol (Ursodiol) 300 Mg Capsule, 300 MG PO BID Scheduled PRN Acetaminophen (Acetaminophen) 500 Mg Tablet, 1,000 MG PO TID PRN for PAIN Albuterol Sulf (Albuterol Sulfate) 2.5 Mg/3 Ml Vial.neb, 2.5 MG INH Q6H PRN for SHORTNESS OF BREATH Albuterol Sulfate (Proair Hfa) 8.5 Gm Hfa.aer.ad, 2 PUFF INH Q4H PRN for SHORTNESS OF BREATH Nitroglycerin (Nitrostat) 0.4 Mg Tab.subl, 0.4 MG SL NITRO PRN for CHEST PAIN Ondansetron HCl (Ondansetron HCl) 4 Mg Tablet, 4 MG PO Q8H PRN for NAUSEA Allergies Coded Allergies: No Known Drug Allergies (Verified Allergy, Unknown, 01/06/19) A-FIB/CHADSVASC A-FIB History Current/History of A-Fib/PAF?: No JEFF PAREDES MD Mar 25, 2020 01:33
[2020-03-25] MEDS: traMADol 50 MG TAB PO PRN (01:52)
[2020-03-25 06:00] VITALS: BP 127/84
[2020-03-25] MEDS: metroNIDAZOLE (FLAGYL) 500MG TABLET PO SCH ×3 (06:00→20:35)
[2020-03-25] MEDS ORDERED: TRIMETHOBENZAMIDE 300 MG CAP PO PRN (06:00)
[2020-03-25] MEDS ORDERED: IPRATROPIUM 0.5MG/ALBUTEROL 2.5MG INH SOL UD 3ML (DUONEB) NEB PRN (06:30)
[2020-03-25] MEDS: TIOTROPIUM INHALER/CAPSULE (SPIRIVA) INH SCH (07:32)
[2020-03-25] MEDS: FLUoxetine 20 MG CAP PO SCH (08:43)
[2020-03-25] MEDS: ursodioL 300 MG CAP PO SCH ×2 (08:44→20:35)
[2020-03-25] MEDS: CLOPIDOGREL 75 MG TAB PO SCH (08:44)
[2020-03-25] MEDS: SODIUM BICARBONATE 325 MG TAB PO SCH (08:44)
[2020-03-25] MEDS: APIXABAN 5 MG TAB (ELIQUIS) PO SCH ×2 (08:44→20:35)
[2020-03-25] MEDS: AMIODARONE 200 MG TAB (PACERONE) PO SCH ×2 (08:44→20:35)
[2020-03-25] MEDS: CIPROFLOXACIN 500MG TABLET PO SCH (08:45)
[2020-03-25] MEDS: CARVedilol 3.125 MG TAB PO SCH ×2 (08:45→20:36)
[2020-03-25] MEDS ORDERED: FUROSEMIDE 40 MG TAB PO SCH (09:00)
[2020-03-25] MEDS ORDERED: PANTOPRAZOLE 40MG TAB (PROTONIX) PO SCH (09:00)
--- NOTE | 2020-03-25 11:05 | IPNPDOC ---
Subjective Date Seen The patient was seen on 03/25/20. Subjective Chief Complaint/HPI left upper quadrant pain. Events since last encounter admission note reviewed. Patient is a poor historian. mostly just shrugged when I asked him questions. He is laying in bed, not in any distress. still having left sided pain, 04/16 he said, dll aching, nausea noted, no vomiting. No diarrhea. He is coughing, chronic cough, smoker. No epigastric pain. No fever, no chills. He eats by mouth, but has a feeding tube, and colostomy bag -- he is unsure how and when and why he has theses. He does not drink, or do any illicit drugs. No recent travel. No recent new medications. Objective Physical Examination General Exam: Positive: Alert, Cooperative, No Acute Distress Eye Exam: Positive: PERRLA, Conjunctiva & lids normal, EOMI, Sclera icteric ENT Exam: Positive: Atraumatic, Mucous membr. moist/pink Neck Exam: Positive: JVD, thyromegaly Chest Exam: Positive: Clear to auscultation, Normal air movement; Negative: Rales, Rhonchi, Wheezing Heart Exam: Positive: Rate Normal, Regular Rhythm, Normal S1, Normal S2; Negative: Murmurs, Rubs Abdomen Exam: Positive: Normal bowel sounds, Soft, Tenderness (tenderness on the left upper quadrant ), Other (positive feeding tube , not used.Colostomy bag ) Skin Exam: Positive: Nl turgor and temperature; Negative: Rash, Breakdown, Lesion Neuro Exam: Positive: Normal Speech, Strength at 5/5 X4 ext, Normal Tone, Sensation Intact Psych Exam: Positive: Mental status NL, Mood NL, Memory Intact, Oriented x 3; Negative: Anxiety Assessment /Plan Assessment reviewed admission labs -- Showed BUn 48, creatinine 3.16. wbc 10.92,hgb 11.5 plate 331. Lipase 829 normal Lfts, tbili 0.5 Urinalysis done showed pyuria, negative bacteria,or nitrite, also has hematuria RBC 117 Reviewed admission chest xray showed increased markings mid to lower lung, atelectasis, small bilateral pleural effusion, CT abdomen: midl cardiomegaly, small amount free air. gallstones noted. No cholecystitis abnormal contour spleen -- possible abscess versus seroma 5.7 x 2.5 x 4.6 cm pancreas also calcifications noted in the region, nonobstructing renal caluclin, anasarca thick walled loops of small bowel -- enteritis ASSESSMENT 1. Acute left sided abdominal pain, with elevated lipase on 829, acute pancreatitis, etiology unclear 2. Suspected MARTY on Chronic kidney disease stage III, 3. Splenic collection, seroma and possibly abscess 4. ischemic cardiomyopathy, CABG, s/p AICD 5. Chronic systolic congestive heart failure 6. Diabetes Mellitus type II 7. Colostomy, sigmoid colectomy, ? 8. Peg tube placement, not used. PLANS: chart reviewed. Hold off lasix for now, continue fluids, unable to increase fluid rate due to poor EF. Pain control, IV morphine. Will check ESR, CPK, and procal. his wbc is normal, thus ? abscess on the spleen. He has been on antibiotics even on prior discharge, and cipro/flagyl, chart reviewed on pior CT, no splenic collection noted at that time. He does have prior history of cholecystostomy. Will obtain US abdomen as well. NPO. IV fluids. We may need to consult IR for possible IR drain on splenic collection. continue cipro and flagyl until able to verify this history and prior chart. Which I will review. will call his Fiance, Tram, to get more of his history. Very poor historian FULL CODE. DVT; on eliquis Plan/VTE VTE Prophylaxis Ordered?: Yes VS, I&O, 24H, Fishbone Vital Signs/I&O Vital Signs Date Time Temp Pulse Resp B/P (MAP) Pulse Ox O2 Delivery O2 Flow Rate FiO2 03/25/20 08:45 67 126/82 03/25/20 06:00 97.6 18 97 Room Air I&O- Last 24 Hours up to 6 AM 03/25/20 06:00 Intake Total 60 ml Output Total 500 ml Balance -440 ml QUIRINO CANSECO MD Mar 25, 2020 10:49
[2020-03-25 12:35] LABS: HEMATOCRIT 34.5 % (42.0-52.0); HEMOGLOBIN 10.8 g/dl (13.5-17.5); MEAN CORPUSCULAR HEMOGLOBIN 27.8 pg (27.0-33.0); MEAN CORPUSCULAR HGB CONC 31.3 g/dl (32.0-36.5); MEAN CORPUSCULAR VOLUME 88.9 fl (80.0-96.0); PLATELET COUNT, AUTOMATED 301 10^3/uL (150-450); RED BLOOD COUNT 3.88 10^6/uL (4.30-6.10); WHITE BLOOD COUNT 8.8 10^3/uL (4.0-10.0)
[2020-03-25 13:26] LABS: BILIRUBIN,TOTAL 0.5 MG/DL (0.2-1.0); CALCIUM LEVEL 8.6 MG/DL (8.5-10.1); CREATININE FOR GFR 2.93 MG/DL (0.70-1.30); GLOMERULAR FILTRATION RATE 24.3 (>56); POTASSIUM SERUM 4.8 MEQ/L (3.5-5.1); TOTAL PROTEIN 6.1 GM/DL (6.4-8.2)
[2020-03-25] MEDS: MORPHINE 2 MG/ML 1ML VIAL (J2270) IV PRN ×2 (16:43→20:35)
[2020-03-25] MEDS: ONDANSETRON 4MG/2ML VIAL IV PRN (16:43)
[2020-03-25 22:00] VITALS: BP 126/84
[2020-03-26] MEDS: D5W/0.9% SODIUM CHLORIDE 1,000 ML IV SCH ×2 (00:11→15:20)
[2020-03-26] MEDS: HumaLOG INSULIN (NovoLOG) PER UNIT SC SCH ×4 (00:11→18:00)
[2020-03-26] MEDS: ONDANSETRON 4MG/2ML VIAL IV PRN (05:12)
[2020-03-26] MEDS: metroNIDAZOLE (FLAGYL) 500MG TABLET PO SCH ×3 (05:13→22:11)
[2020-03-26] MEDS: MORPHINE 2 MG/ML 1ML VIAL (J2270) IV PRN ×4 (05:13→22:27)
[2020-03-26 06:00] VITALS: BP 130/87
[2020-03-26 06:55] LABS: HEMATOCRIT 36.9 % (42.0-52.0); HEMOGLOBIN 11.3 g/dl (13.5-17.5); MEAN CORPUSCULAR HEMOGLOBIN 27.4 pg (27.0-33.0); MEAN CORPUSCULAR HGB CONC 30.6 g/dl (32.0-36.5); MEAN CORPUSCULAR VOLUME 89.3 fl (80.0-96.0); PLATELET COUNT, AUTOMATED 341 10^3/uL (150-450); RED BLOOD COUNT 4.13 10^6/uL (4.30-6.10); WHITE BLOOD COUNT 11.2 10^3/uL (4.0-10.0)
[2020-03-26 07:28] LABS: ALBUMIN 2.1 GM/DL (3.2-5.2); BILIRUBIN,TOTAL 0.7 MG/DL (0.2-1.0); CALCIUM LEVEL 8.4 MG/DL (8.5-10.1); CREATININE FOR GFR 3.02 MG/DL (0.70-1.30); GLOMERULAR FILTRATION RATE 23.4 (>56); POTASSIUM SERUM 4.7 MEQ/L (3.5-5.1); TOTAL PROTEIN 6.4 GM/DL (6.4-8.2)
[2020-03-26 07:33] LABS: ERYTHROCYTE SEDIMENTATION RATE 41 mm/hr (0-20)
[2020-03-26] MEDS: TIOTROPIUM INHALER/CAPSULE (SPIRIVA) INH SCH (08:00)
[2020-03-26] MEDS: CLOPIDOGREL 75 MG TAB PO SCH (08:57)
[2020-03-26] MEDS: SODIUM BICARBONATE 325 MG TAB PO SCH (08:57)
[2020-03-26] MEDS: PANTOPRAZOLE 40MG VIAL (C9113 PER 1) IV SCH (08:57)
[2020-03-26] MEDS: APIXABAN 5 MG TAB (ELIQUIS) PO SCH ×2 (08:57→22:11)
[2020-03-26] MEDS: AMIODARONE 200 MG TAB (PACERONE) PO SCH ×2 (08:57→22:14)
[2020-03-26] MEDS: CIPROFLOXACIN 500MG TABLET PO SCH (08:57)
[2020-03-26] MEDS: FLUoxetine 20 MG CAP PO SCH (08:57)
[2020-03-26] MEDS: ursodioL 300 MG CAP PO SCH ×2 (08:57→22:11)
[2020-03-26] MEDS: traMADol 50 MG TAB PO PRN (08:59)
[2020-03-26] MEDS: CARVedilol 3.125 MG TAB PO SCH ×2 (08:59→22:14)
[2020-03-26 14:00] VITALS: BP 133/77
--- NOTE | 2020-03-26 19:15 | IPNPDOC ---
Subjective Date Seen The patient was seen on 03/26/20. Subjective Chief Complaint/HPI patient is still complaining of left sided abdominal pain, appears comfortable. again, not able to get much history, he mostly just shrugs. He is forgetful, had history of stroke. No vomiting. felt nauseated. been having ice chips. No vomiting. no diarrhea. no fever. No chills. Objective Physical Examination General Exam: Positive: Alert, Cooperative, No Acute Distress Eye Exam: Positive: PERRLA, Conjunctiva & lids normal, EOMI, Sclera icteric ENT Exam: Positive: Atraumatic, Mucous membr. moist/pink Neck Exam: Positive: JVD, thyromegaly Chest Exam: Positive: Clear to auscultation, Normal air movement; Negative: Rales, Rhonchi, Wheezing Heart Exam: Positive: Rate Normal, Regular Rhythm, Normal S1, Normal S2; Negative: Murmurs, Rubs Abdomen Exam: Positive: Normal bowel sounds, Soft, Tenderness (tenderness on the left upper quadrant ), Other (positive feeding tube , not used.Colostomy bag ) Skin Exam: Positive: Nl turgor and temperature; Negative: Rash, Breakdown, Lesion Neuro Exam: Positive: Normal Speech, Strength at 5/5 X4 ext, Normal Tone, Sensation Intact Psych Exam: Positive: Mental status NL, Mood NL, Memory Intact, Oriented x 3; Negative: Anxiety Other physical findings General: awake, alert, oriented x 3 not in acute respiratory distress, appears as stated age, frail appearing man HEENT: anicteric sclerae, no nasal discharges, no throat exudates, no oral lesions, PERRL, EOM intact, NECK: supple, no cervical tenderness, no bruit noted, no rigidity noted CHEST: clear breath sounds, equal chest expansion, no rales or wheezing CVS; s1 and s2 distinct, no murmurs audible note, no rubs, or thrills, ABDOMEN: soft, positive normoactive bowel sounds, no tenderness, no rigidity , no guarding noted -- left upper quadrant tenderness - positive feeding tube, not used EXTREMITIES: no limitation of ROM, no leg edema, no joint swelling, no calf tenderness, no atrophy [employer]; awake, alert, oriented x 3 CN II-XII grossly intact, no focal sensory or motor deficits Psych, no anxiety, comfortable, no hallucinations or delusions Assessment /Plan Assessment 03/26/20 05:40: Nucleated Red Blood Cells % (auto) 0.0, Erythrocyte Sedimentation Rate 41H, Anion Gap 4L, Glomerular Filtration Rate 23.4L, Calcium Level 8.4L, Total Bilirubin 0.7, Aspartate Amino Transf (AST/SGOT) 9, Alanine Aminotransferase (ALT/SGPT) 6L, Alkaline Phosphatase 91, Total Protein 6.4, Albumin 2.1L, Albumin/Globulin Ratio 0.5, Lipase 522H ASSESSMENT: CT abdomen: midl cardiomegaly, small amount free air. gallstones noted. No cholecystitis abnormal contour spleen -- possible abscess versus seroma 5.7 x 2.5 x 4.6 cm pancreas also calcifications noted in the region, nonobstructing renal caluclin, anasarca thick walled loops of small bowel -- enteritis ASSESSMENT 1. Acute left sided abdominal pain, with elevated lipase on 829, acute pancreati tis, etiology unclear 2. Suspected MARTY on Chronic kidney disease stage III, 3. Splenic collection, seroma and possibly abscess 4. ischemic cardiomyopathy, CABG, s/p AICD 5. Chronic systolic congestive heart failure 6. Diabetes Mellitus type II 7. Colostomy, sigmoid colectomy, ? 8. Peg tube placement, not used. PLANS: initially patient states he was admitted here recently. I went to medical records but he has no record here at least no recent admission. His last visit was [facility] on 12/2019. Our director of casework informed me that patient was admitted at [facility]. Finally got to review record today, it appears he was initially admitted there for CHF exacerbation,, and hypotension, thought cardiogenic shock, underwent right sided cath - normal. Patient developed fever - work-up revealed perisplenic collection - and IR drainage was done, cultures showed enterobacter and thus transitioned from Ertapenem to cipro/flagyl. supposed to follow up with ID. He also was noted to have renal failure there, nephro consulted as patient had history of IgG4 related disease, no dialysis was done. Patient's entresto was d/c due to renal failure. On work-up there, also noted pancreatitis, cholelithiasis, with necrosis, IR drain was on 02/23, base on dischareg summary there, patient's CT post IR drain showed improvement of collection, No ct images to review, unclear of the size. * we may need to obtain CT images in [facility] to determine if this splenic collection noted on our current CT abdomen here is similar, worsening, or unchange. He does not appear septic, currently on ciprof and flagyl. * He likely has chronic pancreatitis, and chronic pain. * Noted elevation of creatinine, increase fluid, with caution, if no improvement, will obtain nephrology consult in AM. * CHRISTI, ESR, ASMA, CMP, in AM * check urine electroltyes, eosinophil. * Extensive chart review done. * NPO but may have ice chips * high risk Plan/VTE VTE Prophylaxis Ordered?: Yes VS, I&O, 24H, Fishbone Vital Signs/I&O Vital Signs Date Time Temp Pulse Resp B/P (MAP) Pulse Ox O2 Delivery O2 Flow Rate FiO2 03/26/20 17:00 16 Room Air 03/26/20 14:00 97.8 69 133/77 (95) 94 I&O- Last 24 Hours up to 6 AM 03/26/20 06:00 Intake Total 900 ml Output Total 1150 ml Balance -250 ml Laboratory Data 24H LABS Laboratory Tests 2 03/26/20 05:40: Nucleated Red Blood Cells % (auto) 0.0, Erythrocyte Sedimentation Rate 41H, Anion Gap 4L, Glomerular Filtration Rate 23.4L, Calcium Level 8.4L, Total Bilirubin 0.7, Aspartate Amino Transf (AST/SGOT) 9, Alanine Aminotransferase (ALT/SGPT) 6L, Alkaline Phosphatase 91, Total Protein 6.4, Albumin 2.1L, Albumin/Globulin Ratio 0.5, Lipase 522H CBC/BMP Laboratory Tests 03/26/20 05:40 Microbiology Microbiology 03/24/20 Urine Culture - Final, Complete TE,QUIRINO Willard MD Mar 26, 2020 19:15
[2020-03-26 22:00] VITALS: BP 138/89
[2020-03-27] MEDS: HumaLOG INSULIN (NovoLOG) PER UNIT SC SCH ×5 (00:47→21:00)
[2020-03-27] MEDS: D5W/0.9% SODIUM CHLORIDE 1,000 ML IV SCH ×2 (03:24→11:09)
[2020-03-27] MEDS: MORPHINE 2 MG/ML 1ML VIAL (J2270) IV PRN ×3 (03:25→16:40)
[2020-03-27] MEDS: ONDANSETRON 4MG/2ML VIAL IV PRN ×3 (03:36→18:55)
[2020-03-27] MEDS: metroNIDAZOLE (FLAGYL) 500MG TABLET PO SCH ×3 (05:47→20:22)
[2020-03-27 06:00] VITALS: BP 126/84
[2020-03-27 06:57] LABS: HEMATOCRIT 36.6 % (42.0-52.0); HEMOGLOBIN 11.3 g/dl (13.5-17.5); MEAN CORPUSCULAR HEMOGLOBIN 27.7 pg (27.0-33.0); MEAN CORPUSCULAR HGB CONC 30.9 g/dl (32.0-36.5); MEAN CORPUSCULAR VOLUME 89.7 fl (80.0-96.0); PLATELET COUNT, AUTOMATED 337 10^3/uL (150-450); RED BLOOD COUNT 4.08 10^6/uL (4.30-6.10); WHITE BLOOD COUNT 9.5 10^3/uL (4.0-10.0)
[2020-03-27] MEDS: TIOTROPIUM INHALER/CAPSULE (SPIRIVA) INH SCH (07:39)
[2020-03-27 07:43] LABS: ERYTHROCYTE SEDIMENTATION RATE 39 mm/hr (0-20)
[2020-03-27] MEDS: CIPROFLOXACIN 500MG TABLET PO SCH (09:25)
[2020-03-27] MEDS: FLUoxetine 20 MG CAP PO SCH (09:25)
[2020-03-27] MEDS: PANTOPRAZOLE 40MG VIAL (C9113 PER 1) IV SCH (09:25)
[2020-03-27] MEDS: ursodioL 300 MG CAP PO SCH ×2 (09:25→20:21)
[2020-03-27] MEDS: SODIUM BICARBONATE 325 MG TAB PO SCH (09:26)
[2020-03-27] MEDS: APIXABAN 5 MG TAB (ELIQUIS) PO SCH ×2 (09:26→20:22)
[2020-03-27] MEDS: CARVedilol 3.125 MG TAB PO SCH ×2 (09:26→20:22)
[2020-03-27] MEDS: CLOPIDOGREL 75 MG TAB PO SCH (09:26)
[2020-03-27] MEDS: AMIODARONE 200 MG TAB (PACERONE) PO SCH ×2 (09:26→20:22)
--- NOTE | 2020-03-27 11:33 | IPNPDOC ---
Text Note Date of Service The patient was seen on 03/27/20. NOTE patient seen this morning, comfortable, not in any distress. His pain seems improved. Not wanting to eat, mostly just ice chips. No fever. no chills. No vomiting. No diarrhea. Vital Sign - Last 24 Hours 03/26/20 03/26/20 03/26/20 03/26/20 12:00 14:00 16:40 17:00 Temp 97.8 Pulse 69 Resp 16 18 17 16 B/P (MAP) 133/77 (95) Pulse Ox 94 O2 Delivery Room Air Room Air Room Air Room Air 03/26/20 03/26/20 03/26/20 03/26/20 22:00 22:14 22:27 23:37 Temp 97.9 Pulse 73 78 Resp 18 18 18 B/P (MAP) 138/89 (105) 133/87 Pulse Ox 93 O2 Delivery Room Air 03/27/20 03/27/20 03/27/20 03/27/20 03:25 03:35 06:00 09:26 Temp 97.9 Pulse 72 77 Resp 19 18 18 B/P (MAP) 126/84 (98) 124/83 Pulse Ox 90 O2 Delivery Room Air 03/27/20 03/27/20 09:31 09:41 Resp 18 18 General: awake, alert, oriented x 3 not in acute respiratory distress, appears as stated age, frail appearing man HEENT: anicteric sclerae, no nasal discharges, no throat exudates, no oral lesions, PERRL, EOM intact, NECK: supple, no cervical tenderness, no bruit noted, no rigidity noted CHEST: clear breath sounds, equal chest expansion, no rales or wheezing CVS; s1 and s2 distinct, no murmurs audible note, no rubs, or thrills, ABDOMEN: soft, positive normoactive bowel sounds, no tenderness, no rigidity , no guarding noted -- left upper quadrant tenderness - positive feeding tube, not used EXTREMITIES: no limitation of ROM, no leg edema, no joint swelling, no calf tenderness, no atrophy INS[employer] GLASS [employer] MIRROR; awake, alert, oriented x 3 CN II-XII grossly intact, no focal sensory or motor deficits Psych, no anxiety, comfortable, no hallucinations or delusions I&O- Last 24 Hours up to 6 AM 03/27/20 06:00 Intake Total 2100 ml Output Total 625 ml Balance 1475 ml Assessment /Plan Assessment 03/26/20 05:40: Nucleated Red Blood Cells % (auto) 0.0, Erythrocyte Sedimentation Rate 41H, Anion Gap 4L, Glomerular Filtration Rate 23.4L, Calcium Level 8.4L, Total Bilirubin 0.7, Aspartate Amino Transf (AST/SGOT) 9, Alanine Aminotransferase (ALT/SGPT) 6L, Alkaline Phosphatase 91, Total Protein 6.4, Albumin 2.1L, Albumin/Globulin Ratio 0.5, Lipase 522H CT abdomen: mild cardiomegaly, small amount free air. gallstones noted. No cholecystitis abnormal contour spleen -- possible abscess versus seroma 5.7 x 2.5 x 4.6 cm pancreas also calcifications noted in the region, nonobstructing renal calculi, anasarca thick walled loops of small bowel -- enteritis ASSESSMENT: 1. Acute left sided abdominal pain, with elevated lipase on 829, acute on chronic pancreatitis, per chart review, has history of autoimmune pancreatitis 2. Suspected MARTY on Chronic kidney disease stage III, 3. Splenic collection, seroma and possibly abscess 4. Ischemic cardiomyopathy, CABG, s/p AICD 5. Chronic systolic congestive heart failure 6. Diabetes Mellitus type II 7. Colostomy, sigmoid colectomy, ? 8. Peg tube placement, not used. 9. chronic anticoagulation with eliquis, history of pe/dvt PLANS: * I have spoken with Tram, patient's fiance. she is aware of patient's history of splenic abscess. Informed her of CT scan abdomen findings. about the size. Unclear if this is smaller or bigger. Will need to obtain CT images/Ct report from [place]. If size is bigger, then will consult IR. * I called ID in [facility] [phone] Dr Calle. he is currently not in the office at this time. * He is still on cipro and flagyl,which will continue. * ff-up on lab work today, to make sure there is improvement of renal function * CODE status discussed with patient: FULL CODE. Tram also verified this. * Moderate risk. * Will start with liquid diet. VS,Fishbone, I+O VS, Fishbone, I+O Laboratory Tests 03/27/20 06:00 Vital Signs Date Time Temp Pulse Resp B/P (MAP) Pulse Ox O2 Delivery O2 Flow Rate FiO2 03/27/20 09:41 18 03/27/20 09:26 77 124/83 03/27/20 06:00 97.9 90 Room Air I&O- Last 24 Hours up to 6 AM 03/27/20 06:00 Intake Total 2100 ml Output Total 625 ml Balance 1475 ml QUIRINO CANSECO MD Mar 27, 2020 11:18
[2020-03-27 14:00] VITALS: BP 124/83
[2020-03-27 14:11] LABS: ALBUMIN 2.1 GM/DL (3.2-5.2); ALT/SGPT < 6 U/L (12-78); BILIRUBIN,TOTAL 0.9 MG/DL (0.2-1.0); BLOOD UREA NITROGEN 39 MG/DL (7-18); CALCIUM LEVEL 8.7 MG/DL (8.5-10.1); CARBON DIOXIDE LEVEL 22 MEQ/L (21-32); CHLORIDE LEVEL 111 MEQ/L (98-107); CREATININE FOR GFR 2.91 MG/DL (0.70-1.30); GLOMERULAR FILTRATION RATE 24.4 (>56); GLUCOSE, FASTING 137 MG/DL (70-100); LIPASE 454 U/L (73-393); POTASSIUM SERUM 4.8 MEQ/L (3.5-5.1); SODIUM LEVEL 139 MEQ/L (136-145); TOTAL PROTEIN 6.5 GM/DL (6.4-8.2)
[2020-03-27] MEDS ORDERED: GLUCAGON INJ 1MG VIAL SC PRN (16:00)
[2020-03-27] MEDS ORDERED: DEXTROSE 50% 50 ML SYRINGE IV PRN (16:00)
[2020-03-27] MEDS ORDERED: GLUCOSE 4GM CHEW TABLET PO PRN (16:00)
[2020-03-27 22:00] VITALS: BP 125/83
[2020-03-27] MEDS: traMADol 50 MG TAB PO PRN (23:59)
[2020-03-28] MEDS: metroNIDAZOLE (FLAGYL) 500MG TABLET PO SCH ×3 (05:02→21:43)
[2020-03-28 06:00] VITALS: BP 126/83
[2020-03-28] MEDS: traMADol 50 MG TAB PO PRN (06:07)
[2020-03-28] MEDS: ONDANSETRON 4MG/2ML VIAL IV PRN (06:12)
[2020-03-28] MEDS: MORPHINE 2 MG/ML 1ML VIAL (J2270) IV PRN (06:18)
[2020-03-28 07:15] LABS: HEMATOCRIT 38.4 % (42.0-52.0); HEMOGLOBIN 11.8 g/dl (13.5-17.5); MEAN CORPUSCULAR HEMOGLOBIN 27.8 pg (27.0-33.0); MEAN CORPUSCULAR HGB CONC 30.7 g/dl (32.0-36.5); MEAN CORPUSCULAR VOLUME 90.4 fl (80.0-96.0); PLATELET COUNT, AUTOMATED 358 10^3/uL (150-450); RED BLOOD COUNT 4.25 10^6/uL (4.30-6.10); WHITE BLOOD COUNT 10.9 10^3/uL (4.0-10.0)
[2020-03-28 07:26] LABS: ALBUMIN 2.2 GM/DL (3.2-5.2); ALT/SGPT < 6 U/L (12-78); BLOOD UREA NITROGEN 43 MG/DL (7-18); CALCIUM LEVEL 8.9 MG/DL (8.5-10.1); CARBON DIOXIDE LEVEL 20 MEQ/L (21-32); CHLORIDE LEVEL 111 MEQ/L (98-107); CREATININE FOR GFR 3.33 MG/DL (0.70-1.30); GLOMERULAR FILTRATION RATE 20.9 (>56); GLUCOSE, FASTING 134 MG/DL (70-100); POTASSIUM SERUM 5.2 MEQ/L (3.5-5.1); SODIUM LEVEL 139 MEQ/L (136-145); TOTAL PROTEIN 6.6 GM/DL (6.4-8.2)
[2020-03-28] MEDS: HumaLOG INSULIN (NovoLOG) PER UNIT SC SCH ×4 (07:30→21:00)
[2020-03-28] MEDS: TIOTROPIUM INHALER/CAPSULE (SPIRIVA) INH SCH (07:31)
[2020-03-28 07:44] LABS: ERYTHROCYTE SEDIMENTATION RATE 52 mm/hr (0-20)
[2020-03-28] MEDS: PANTOPRAZOLE 40MG VIAL (C9113 PER 1) IV SCH (09:35)
[2020-03-28] MEDS: AMIODARONE 200 MG TAB (PACERONE) PO SCH ×2 (09:36→21:44)
[2020-03-28] MEDS: SODIUM BICARBONATE 325 MG TAB PO SCH (09:36)
[2020-03-28] MEDS: CARVedilol 3.125 MG TAB PO SCH ×2 (09:37→21:44)
[2020-03-28] MEDS: CIPROFLOXACIN 500MG TABLET PO SCH (09:37)
[2020-03-28] MEDS: FLUoxetine 20 MG CAP PO SCH (09:37)
[2020-03-28] MEDS: APIXABAN 5 MG TAB (ELIQUIS) PO SCH (09:37)
[2020-03-28] MEDS: CLOPIDOGREL 75 MG TAB PO SCH (09:37)
[2020-03-28] MEDS: ursodioL 300 MG CAP PO SCH ×2 (09:37→21:43)
[2020-03-28] MEDS: PERCOCET 5MG/325MG TAB PO PRN ×2 (09:39→17:19)
--- NOTE | 2020-03-28 10:03 | REPVR ---
PROCEDURE INFORMATION: Exam: US Retroperitoneal Limited, Kidneys Exam date and time: 03/28/2020 8:34 AM Age: 49 years old Clinical indication: Other: Renal failure; Prior surgery; Surgery date: 6+ months; Surgery type: Pigtail cath at spleen area for fluid collection TECHNIQUE: Imaging protocol: Real-time ultrasound of the retroperitoneum with image documentation. Examination was focused on the kidneys. COMPARISON: LIVER US 07/31/2019 3:14 PM FINDINGS: Pleural space: Small left pleural effusion. Right kidney: No stones. No hydronephrosis. Left kidney: No stones. No hydronephrosis. Spleen: Complex subcapsular collection in spleen measuring 6.4 x 2.6 x 3 cm. Intraperitoneal space: Ascites. Bladder: Debris in urinary bladder. IMPRESSION: No hydronephrosis bilaterally. Debris in urinary bladder. Complex subcapsular collection in spleen measuring 6.4 x 2.6 x 3 cm. Ascites. Electronically signed by: Alejandro Power On 03/28/2020 10:03:22 AM
--- NOTE | 2020-03-28 14:13 | IPNPDOC ---
Text Note Date of Service The patient was seen on 03/28/20. NOTE Subjective: patient states he is feeling much better today, not in any distress. He did felt nauseated after a pain pill. He is laying in bed, comfortable. slept ok No diarrhea noted. Vital Sign - Last 24 Hours 03/27/20 03/27/20 03/27/20 03/27/20 09:26 09:31 09:41 14:00 Temp 97.4 Pulse 77 66 Resp 18 18 18 B/P (MAP) 124/83 124/83 (97) Pulse Ox 91 O2 Delivery Room Air 03/27/20 03/27/20 03/27/20 03/27/20 16:40 16:50 20:22 22:00 Temp 98.1 Pulse 76 77 Resp 18 17 18 B/P (MAP) 123/85 125/83 (97) Pulse Ox 100 88 O2 Delivery Room Air 03/27/20 03/28/20 03/28/20 03/28/20 23:59 00:29 06:00 06:07 Temp 97.9 Pulse 75 Resp 16 16 16 17 B/P (MAP) 126/83 (97) Pulse Ox 90 O2 Delivery Room Air 03/28/20 03/28/20 03/28/20 06:18 06:28 06:37 Resp 17 17 16 General: awake, alert, oriented x 3 not in acute respiratory distress, appears as stated age, frail appearing man HEENT: anicteric sclerae, no nasal discharges, no throat exudates, no oral lesions, PERRL, EOM intact, NECK: supple, no cervical tenderness, no bruit noted, no rigidity noted CHEST: clear breath sounds, equal chest expansion, no rales or wheezing CVS; s1 and s2 distinct, no murmurs audible note, no rubs, or thrills, ABDOMEN: soft, positive normoactive bowel sounds,left upper quadrant tenderness, positive peg tube (old not used), the tubing has now gone to black; no rigidity , no guarding noted -- left upper quadrant tenderness - positive feeding tube, not used EXTREMITIES: no limitation of ROM, no leg edema, no joint swelling, no calf tenderness, no atrophy 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; 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, 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, oriented x 3 CN II-XII grossly intact, no focal sensory or motor deficits Psych, no anxiety, comfortable, no hallucinations or delusions Laboratory Tests 03/28/20 06:25 Vital Signs Date Time Temp Pulse Resp B/P (MAP) Pulse Ox O2 Delivery O2 Flow Rate FiO2 03/28/20 06:37 16 03/28/20 06:28 17 03/28/20 06:18 17 03/28/20 06:07 17 03/28/20 06:00 97.9 75 16 126/83 (97) 90 Room Air 03/28/20 00:29 16 03/27/20 23:59 16 03/27/20 22:00 98.1 77 18 125/83 (97) 88 Room Air 03/27/20 20:22 76 123/85 03/27/20 16:50 17 100 03/27/20 16:40 18 03/27/20 14:00 97.4 66 18 124/83 (97) 91 Room Air 03/27/20 09:41 18 03/27/20 09:31 18 03/27/20 09:26 77 124/83 Intake & Output 03/28/20 06:00 Intake Total 1340 ml Output Total 555 ml Balance 785 ml Laboratory Tests 03/27/20 06:00 03/28/20 06:25 Current Medications Medications (Trade) Dose Ordered Sig/Harish Route PRN Reason Start Time Stop Time Status Last Admin Dose Admin Amiodarone HCl (Pacerone, Cordarone) 200 mg BID PO 03/25/20 09:00 03/27/20 20:22 200 MG Apixaban (Eliquis) 5 mg BID PO 03/25/20 09:00 03/27/20 20:22 5 MG Carvedilol (COReg) 3.125 mg BID PO 03/25/20 09:00 03/27/20 20:22 3.125 MG Ciprofloxacin (Cipro) 500 mg DAILY PO 03/25/20 09:00 04/06/20 09:01 03/27/20 09:25 500 MG Clopidogrel Bisulfate (PLAVix) 75 mg DAILY PO 03/25/20 09:00 03/27/20 09:26 75 MG Fluoxetine HCl (PROzac) 40 mg DAILY PO 03/25/20 09:00 03/27/20 09:25 40 MG Metronidazole (Flagyl) 500 mg Q8H PO 03/25/20 06:00 04/06/20 22:01 03/28/20 05:02 500 MG Morphine Sulfate (Morphine Sulfate Inj) 2 mg Q3H PRN IV SEVERE PAIN (PS 8-10) 03/25/20 10:45 03/28/20 06:18 2 MG Ondansetron HCl (ZOFRAN INJection) 4 mg Q6HP PRN IV NAUSEA OR VOMITING 03/25/20 16:30 03/28/20 06:12 4 MG Pantoprazole Sodium (Protonix) 40 mg Q24H IV 03/26/20 09:00 03/27/20 09:25 40 MG Sodium Bicarbonate (Sodium Bicarbonate) 1,300 mg DAILY PO 03/25/20 09:00 03/27/20 09:26 1,300 MG Tiotropium [place] (Spiriva Handihaler) 1 inhalation DAILY@0800 INH 03/25/20 08:00 03/27/20 07:39 1 INHALATION Tramadol HCl (Ultram) 50 mg Q6HP PRN PO MODERATE TO SEVERE PAIN 03/25/20 01:45 03/28/20 06:07 50 MG Ursodiol (Actigall) 300 mg BID PO 03/25/20 09:00 03/27/20 20:21 300 MG Done on admission CT abdomen: mild cardiomegaly, small amount free air. gallstones noted. No cholecystitis abnormal contour spleen -- possible abscess versus seroma 5.7 x 2.5 x 4.6 cm \ pancreas also calcifications noted in the region, nonobstructing renal calculi, anasarca thick walled loops of small bowel -- enteritis I&O- Last 24 Hours up to 6 AM 03/28/20 06:00 Intake Total 1340 ml Output Total 555 ml Balance 785 ml [facility] NAME: [facility] DATE OF : 1970 BUSINESS NUMBER: [id number] AGE: 49 SEX: M REPORT #: [id number] ROOM: [facility] TECHNOLOGIST: [facility] DOCTOR: QUIRINO CANSECO MD Ordered for Date&Time: 03/28/20 0758 cc: [~ rep ct ivnm] Service Date&Time: 03/28/20 0818 This report is in Signed status. Interpretation performed by [facility]. Thank you for having your radiology procedures performed at [facility] RADIOLOGY REPORT Date&Time printed: [~ rep prt dt last] [~ rep prt tm last] Page [address] of [address] [id number] RADIOLOGY REPORT This report is in Signed status. Interpretation performed by [facility]. Thank you for having your radiology procedures performed at [facility] RADIOLOGY REPORT Date&Time printed: [~ rep prt dt last] [~ rep prt tm last] Page 1 of 1 Ultrasound COMPARISON: LIVER US 07/31/2019 3:14 PM FINDINGS: Pleural space: Small left pleural effusion. Right kidney: No stones. No hydronephrosis. Left kidney: No stones. No hydronephrosis. Spleen: Complex subcapsular collection in spleen measuring 6.4 x 2.6 x 3 cm. Intraperitoneal space: Ascites. Bladder: Debris in urinary bladder. IMPRESSION: No hydronephrosis bilaterally. Debris in urinary bladder. Complex subcapsular collection in spleen measuring 6.4 x 2.6 x 3 cm. Ascites. ASSESSMENT: 1. Acute left sided abdominal pain, with elevated lipase on 829, acute on chronic pancreatitis, per chart review, has history of autoimmune pancreatitis 2. Suspected MARTY on Chronic kidney disease stage III, 3. Splenic collection, seroma and possibly abscess, history of perisplenic/splenic abscess 02/2020, underwent IR drain in [facility] on 02/23, with history of enterobacter species, on cipro and flagyl 4. Ischemic cardiomyopathy, CABG, s/p AICD 5. Chronic systolic congestive heart failure 6. Diabetes Mellitus type II 7. Colostomy, sigmoid colectomy, 8. Peg tube placement, not used. 9. chronic anticoagulation with eliquis, history of pe/dvt PLANS: * Noted worsening creatinine, urine electrolytes pending still, not collected * Will consult Nephrology - spoke with Dr. Hansen * . I'll review [facility] records again, with last known creatinine. He was previously on entresto, lasix, aldactone but has been withheld when he was discharged from [facility]. * Noted on prior records, that he has history of IgG4 related disease.On chart review he has abnormal creatinine, in the range of 2-2.5, no prior history of kidney biopsy, that he can recall. Will obtain info from his fiance. * Willl stop eliquis, in anticipation of possible IR drainage on splenic collection, base on [facility] record - the last CT there showed it was decreasing in size from 7 cm to 4 cm prior to discharge. Noted US finding today. Due to his worsening pain, ? if due to splenic collection * He is a high risk cardiac patient, will keep on plavix. Will discuss with IR. I called on monday, unable to reach. * FULL CODE. VS,Fishbone, I+O VS, Fishbone, I+O Laboratory Tests 03/28/20 06:25 Vital Signs Date Time Temp Pulse Resp B/P (MAP) Pulse Ox O2 Delivery O2 Flow Rate FiO2 03/28/20 06:37 16 03/28/20 06:00 97.9 75 126/83 (97) 90 Room Air I&O- Last 24 Hours up to 6 AM 03/28/20 06:00 Intake Total 1340 ml Output Total 555 ml Balance 785 ml QUIRINO CANSECO MD Mar 28, 2020 08:05
[2020-03-28 16:19] LABS: ANTI-MITOCHONDRIAL ANTIBODY <20.0 Units (0.0-20.0); ANTI-SMOOTH MUSCLE ANTIBODY 9 Units (0-19); ANTINUCLEAR ANTIBODIES DIRECT Negative (Negative)
[2020-03-28 19:59] LABS: ALBUMIN 2.2 GM/DL (3.2-5.2); BILIRUBIN,DIRECT 0.3 MG/DL (0.0-0.2); BILIRUBIN,TOTAL 0.5 MG/DL (0.2-1.0); CALCIUM LEVEL 8.5 MG/DL (8.5-10.1); CREATININE FOR GFR 3.16 MG/DL (0.70-1.30); GLOMERULAR FILTRATION RATE 22.2 (>56); MB/CK RELATIVE INDEX 5.41 (< OR =4); POTASSIUM SERUM 4.9 MEQ/L (3.5-5.1); TOTAL PROTEIN 6.8 GM/DL (6.4-8.2); TROPONIN I 0.05 NG/ML (< 0.10)
[2020-03-28] MEDS: FUROSEMIDE 100MG/10ML VIAL (J1940) IV SCH (20:51)
[2020-03-28 22:00] VITALS: BP 103/66
[2020-03-29] MEDS: MORPHINE 2 MG/ML 1ML VIAL (J2270) IV PRN ×3 (02:51→22:09)
[2020-03-29 04:01] VITALS: BP 112/75
[2020-03-29] MEDS: FUROSEMIDE 100MG/10ML VIAL (J1940) IV SCH ×3 (04:50→20:30)
[2020-03-29] MEDS: metroNIDAZOLE (FLAGYL) 500MG TABLET PO SCH ×3 (05:00→22:09)
[2020-03-29 06:00] VITALS: BP 111/73
[2020-03-29] MEDS: HumaLOG INSULIN (NovoLOG) PER UNIT SC SCH ×4 (07:30→20:31)
[2020-03-29] MEDS: TIOTROPIUM INHALER/CAPSULE (SPIRIVA) INH SCH (07:43)
[2020-03-29] MEDS: PANTOPRAZOLE 40MG VIAL (C9113 PER 1) IV SCH (08:56)
[2020-03-29] MEDS: ursodioL 300 MG CAP PO SCH ×2 (08:57→20:30)
[2020-03-29] MEDS: FLUoxetine 20 MG CAP PO SCH (08:57)
[2020-03-29] MEDS: SODIUM BICARBONATE 325 MG TAB PO SCH (08:57)
[2020-03-29] MEDS: CIPROFLOXACIN 500MG TABLET PO SCH (08:58)
[2020-03-29] MEDS: PERCOCET 5MG/325MG TAB PO PRN (08:58)
[2020-03-29] MEDS: CLOPIDOGREL 75 MG TAB PO SCH (08:58)
[2020-03-29] MEDS: CARVedilol 3.125 MG TAB PO SCH ×2 (08:58→20:31)
[2020-03-29] MEDS: AMIODARONE 200 MG TAB (PACERONE) PO SCH ×2 (08:59→20:30)
[2020-03-29 09:18] LABS: HEMATOCRIT 38.8 % (42.0-52.0); MEAN CORPUSCULAR HEMOGLOBIN 27.8 pg (27.0-33.0); MEAN CORPUSCULAR HGB CONC 30.9 g/dl (32.0-36.5); PLATELET COUNT, AUTOMATED 334 10^3/uL (150-450); RED BLOOD COUNT 4.31 10^6/uL (4.30-6.10)
[2020-03-29 09:30] LABS: INR 4.15; PROTHROMBIN TIME 41.1 SECONDS (11.8-14.0)
[2020-03-29 09:35] LABS: CALCIUM LEVEL 8.7 MG/DL (8.5-10.1); CREATININE FOR GFR 3.5 MG/DL (0.70-1.30); GLOMERULAR FILTRATION RATE 19.8 (>56); POTASSIUM SERUM 6.2 MEQ/L (3.5-5.1)
[2020-03-29] MEDS ORDERED: DEXTROSE 50% 50 ML SYRINGE IV STA (09:38)
[2020-03-29] MEDS ORDERED: HumuLIN R (REGULAR) INSULIN (NovoLIN R) **100U/ML** PER UNIT IV STA (09:38)
[2020-03-29] MEDS ORDERED: CALCIUM GLUCONATE 1,000 MG in D5W MINI-BAG PLUS 100 ML IV ONE (10:00)
[2020-03-29 10:11] LABS: ERYTHROCYTE SEDIMENTATION RATE 40 mm/hr (0-20)
[2020-03-29] MEDS ORDERED: SOD POLYSTYRENE SULFONATE SUSP 15 GM/60 ML UD PO ONE (11:00)
[2020-03-29] MEDS: ONDANSETRON 4MG/2ML VIAL IV PRN (13:47)
[2020-03-29 14:00] VITALS: BP 136/71
[2020-03-29 14:31] LABS: CALCIUM LEVEL 8.8 MG/DL (8.5-10.1); CREATININE FOR GFR 3.63 MG/DL (0.70-1.30); GLOMERULAR FILTRATION RATE 18.9 (>56); POTASSIUM SERUM 4.8 MEQ/L (3.5-5.1)
--- NOTE | 2020-03-29 15:16 | IPNPDOC ---
Text Note Date of Service The patient was seen on 03/29/20. NOTE patient seen in the recliner today, seems t be doing better, some pain and na usea, not eating much, no vomiting. No diarrhea. Nurse assisted him to get out of bed. very weak and unsteady. Vital Sign - Last 24 Hours 03/28/20 03/28/20 03/28/20 03/28/20 17:19 17:49 21:44 22:00 Temp 98.1 Pulse 71 66 Resp 18 19 17 B/P (MAP) 127/83 103/66 (78) Pulse Ox 92 O2 Delivery Room Air 03/29/20 03/29/20 03/29/20 03/29/20 02:51 04:01 06:00 08:58 Temp 97.9 Pulse 71 70 76 Resp 16 20 B/P (MAP) 112/75 (87) 111/73 (86) 135/60 Pulse Ox 91 91 O2 Delivery Room Air Room Air 03/29/20 03/29/20 03/29/20 03/29/20 08:58 09:28 13:48 13:58 Resp 17 17 19 17 O2 Delivery Room Air General: awake, alert, oriented x 3 not in acute respiratory distress, appears as stated age, frail appearing man HEENT: anicteric sclerae, no nasal discharges, no throat exudates, no oral lesions, PERRL, EOM intact, NECK: supple, no cervical tenderness, no bruit noted, no rigidity noted CHEST: clear breath sounds, equal chest expansion, no rales or wheezing CVS; s1 and s2 distinct, no murmurs audible note, no rubs, or thrills, ABDOMEN: soft, positive normoactive bowel sounds,left upper quadrant tenderness, positive peg tube (old not used), the tubing has now gone to black; no rigidity , no guarding noted -- left upper quadrant tenderness - positive feeding tube, not used EXTREMITIES: no limitation of ROM, no leg edema, no joint swelling, no calf tenderness, no atrophy -- 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; 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, 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, 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 x 3 CN II-XII grossly intact, no focal sensory or motor deficits Psych, no anxiety, comfortable, no hallucinations or delusions Laboratory Tests 03/28/20 06:25 Vital Signs Date Time Temp Pulse Resp B/P (MAP) Pulse Ox O2 Delivery O2 Flow Rate FiO2 8/22/20 06:37 16 03/28/20 06:28 17 03/28/20 06:18 17 03/28/20 06:07 17 03/28/20 06:00 97.9 75 16 126/83 (97) 90 Room Air 03/28/20 00:29 16 03/27/20 23:59 16 03/27/20 22:00 98.1 77 18 125/83 (97) 88 Room Air 03/27/20 20:22 76 123/85 03/27/20 16:50 17 100 03/27/20 16:40 18 03/27/20 14:00 97.4 66 18 124/83 (97) 91 Room Air 03/27/20 09:41 18 03/27/20 09:31 18 03/27/20 09:26 77 124/83 Intake & Output 03/28/20 06:00 Intake Total 1340 ml Output Total 555 ml Balance 785 ml Laboratory Tests 03/27/20 06:00 03/28/20 06:[address] abdomen: mild cardiomegaly, small amount free air. gallstones noted. No cholecystitis abnormal contour spleen -- possible abscess versus seroma 5.7 x 2.5 x 4.6 cm pancreas also calcifications noted in the region, nonobstructing renal calculi, anasarca thick walled loops of small bowel -- enteritis Ultrasound COMPARISON: LIVER US 07/31/2019 3:14 PM FINDINGS: Pleural space: Small left pleural effusion. Right kidney: No stones. No hydronephrosis. Left kidney: No stones. No hydronephrosis. Spleen: Complex subcapsular collection in spleen measuring 6.4 x 2.6 x 3 cm. Intraperitoneal space: Ascites. Bladder: Debris in urinary bladder. IMPRESSION: No hydronephrosis bilaterally. Debris in urinary bladder. Complex subcapsular collection in spleen measuring 6.4 x 2.6 x 3 cm. Ascites. ASSESSMENT: 1. Acute left sided abdominal pain, with elevated lipase on 829, acute on chronic pancreatitis, per chart review, has history of autoimmune pancreatitis 2. Suspected MARTY on Chronic kidney disease stage III, 3. Splenic collection, seroma and possibly abscess, history of perisplenic/splenic abscess 02/2020, underwent IR drain in [facility] on 02/23, with history of enterobacter species, on cipro and flagyl 4. Ischemic cardiomyopathy, CABG, s/p AICD 5. Chronic systolic congestive heart failure 6. Diabetes Mellitus type II 7. Colostomy, sigmoid colectomy, 8. Peg tube placement, not used. 9. chronic anticoagulation with eliquis, history of pe/dvt PLANS: * diet advanced. will add megace. Spoke to patient and Tram. Patient's nausea was improved by tomethobenzamide before, will resume. 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 note that patient did have history of dial ysis before, when he had acute kidney injury * poor oral intake. * INR noted at 4 ? will recheck. eliquis on hold since * will consult IR and discussed of possible drainage, in setting of plavix, if not feasible, will hold off plavix. * Hyperkalemia noted, and corrected now. * overall prognosis guarded. * extremely wieak, likely will need inpatient rehab. * SCD: off eliquis for anticipated procedure VS,Kami, I+O VS, Kami, I+O Laboratory Tests 03/29/20 08:57 03/29/20 13:20 Vital Signs Date Time Temp Pulse Resp B/P (MAP) Pulse Ox O2 Delivery O2 Flow Rate FiO2 03/29/20 13:58 17 03/29/20 09:28 Room Air 03/29/20 08:58 76 135/60 03/29/20 06:00 97.9 91 I&O- Last 24 Hours up to 6 AM 03/29/20 06:00 Intake Total 940 ml Output Total 400 ml Balance 540 ml QUIRINO CANSECO MD Mar 29, 2020 15:16
[2020-03-29 15:38] LABS: INR 3.14
[2020-03-29] MEDS: TRIMETHOBENZAMIDE 300 MG CAP PO PRN (17:29)
[2020-03-29] MEDS ORDERED: PHYTONADIONE 5 MG TAB PO ONE (19:00)
[2020-03-29 22:00] VITALS: BP 117/74
[2020-03-30] MEDS: FUROSEMIDE 100MG/10ML VIAL (J1940) IV SCH ×3 (04:22→20:00)
[2020-03-30] MEDS: PERCOCET 5MG/325MG TAB PO PRN ×2 (04:23→16:52)
[2020-03-30] MEDS: metroNIDAZOLE (FLAGYL) 500MG TABLET PO SCH ×3 (05:39→20:58)
[2020-03-30 06:00] VITALS: BP 121/75
[2020-03-30] MEDS: TIOTROPIUM INHALER/CAPSULE (SPIRIVA) INH SCH (08:00)
[2020-03-30 08:11] LABS: HEMATOCRIT 36.7 % (42.0-52.0); HEMOGLOBIN 11.5 g/dl (13.5-17.5); MEAN CORPUSCULAR HEMOGLOBIN 28.4 pg (27.0-33.0); MEAN CORPUSCULAR HGB CONC 31.3 g/dl (32.0-36.5); MEAN CORPUSCULAR VOLUME 90.6 fl (80.0-96.0); PLATELET COUNT, AUTOMATED 299 10^3/uL (150-450); RED BLOOD COUNT 4.05 10^6/uL (4.30-6.10)
[2020-03-30 08:23] LABS: INR 2.74; PROTHROMBIN TIME 29.6 SECONDS (11.8-14.0)
[2020-03-30 08:54] LABS: ALBUMIN 2.2 GM/DL (3.2-5.2); BILIRUBIN,TOTAL 0.9 MG/DL (0.2-1.0); CALCIUM LEVEL 8.8 MG/DL (8.5-10.1); CREATININE FOR GFR 3.72 MG/DL (0.70-1.30); GLOMERULAR FILTRATION RATE 18.4 (>56); POTASSIUM SERUM 4.4 MEQ/L (3.5-5.1); TOTAL PROTEIN 6.4 GM/DL (6.4-8.2)
[2020-03-30] MEDS: PANTOPRAZOLE 40MG VIAL (C9113 PER 1) IV SCH (09:43)
[2020-03-30] MEDS: CLOPIDOGREL 75 MG TAB PO SCH (09:44)
[2020-03-30] MEDS: FLUoxetine 20 MG CAP PO SCH (09:44)
[2020-03-30] MEDS: HumaLOG INSULIN (NovoLOG) PER UNIT SC SCH ×4 (09:44→21:00)
[2020-03-30] MEDS: CIPROFLOXACIN 500MG TABLET PO SCH (09:44)
[2020-03-30] MEDS: AMIODARONE 200 MG TAB (PACERONE) PO SCH ×2 (09:47→20:58)
[2020-03-30] MEDS: CARVedilol 3.125 MG TAB PO SCH ×2 (09:47→21:00)
[2020-03-30] MEDS: ursodioL 300 MG CAP PO SCH ×2 (11:05→21:11)
[2020-03-30] MEDS: SODIUM BICARBONATE 325 MG TAB PO SCH (11:05)
[2020-03-30 14:00] VITALS: BP 96/57
--- NOTE | 2020-03-30 15:58 | IPNPDOC ---
Text Note Date of Service The patient was seen on 03/30/20. NOTE Hospital course: Mr. Shipman, CAD, CHF, AICD, high cardiac risk, on plavix and eliquis (for dvt), afib CHF. Admitted due to abdominal pain, noted pancreatitis, acute on chronic CT showed on admission, splenic collection, seroma, possible abscess, although not septic. He has been on cipro and flagyl before admission. Upon obtaining chart in [place], he had splenic abscess there, enterobacter, IR drainage. Noted on 03/05 it appears it was 7cm largest diameter and s/p IR down to 4 cm. However, took awhile to get this info, initially he stated he was admitted here, trying to obtain his paper chart, it appears he came from [facility]. He continued to have abdominal pain, although not reliable patient, seems to have chronic pain due to chronic pancreatitis. Thus, not rushed to repeat IR drain. He is a high cardiac risk, on plavix and eliquis. Eliquis not on hold 48 Hours, INR >3. Plavix on board, to discuss with IR. Nephrology also on board: due to worsening creatinine. And also that base on [facility] record, patient has history fo autoimmune pancreatitis (diagnosed likely 2018 at [facility])and Igg4 related disease. No prior kidney biopsy. But had prior dialysis 2019 for MARTY, not on chronic dialysis. Subjective: patient's pain is controlled, slowly eating again. still weak, needs help. no vomiting. no diarrhea. NO fever. Vital Sign - Last 24 Hours 03/29/20 03/29/20 03/29/20 03/29/20 20:31 22:00 22:09 22:19 Temp 97.7 Pulse 71 71 Resp 16 18 18 B/P (MAP) 117/74 117/74 (88) Pulse Ox 90 O2 Delivery Room Air 03/30/20 03/30/20 03/30/20 03/30/20 04:23 04:53 06:00 09:47 Temp 97.4 Pulse 74 68 Resp 18 18 18 B/P (MAP) 121/75 (90) 121/75 Pulse Ox 90 O2 Delivery Room Air 03/30/20 14:00 Temp 97.3 Pulse 63 Resp 16 B/P (MAP) 96/57 (70) Pulse Ox 89 O2 Delivery Room Air General: awake, alert, oriented x 3 not in acute respiratory distress, appears as stated age, frail appearing man HEENT: anicteric sclerae, no nasal discharges, no throat exudates, no oral lesions, PERRL, EOM intact, NECK: supple, no cervical tenderness, no bruit noted, no rigidity noted CHEST: clear breath sounds, equal chest expansion, no rales or wheezing CVS; s1 and s2 distinct, no murmurs audible note, no rubs, or thrills, ABDOMEN: soft, positive normoactive bowel sounds,left upper quadrant tenderness, positive peg tube (old not used), the tubing has now gone to black; no rigidity , no guarding noted -- left upper quadrant tenderness - positive feeding tube, not used EXTREMITIES: no limitation of ROM, no leg edema, no joint swelling, no calf tenderness, no atrophy -- 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 gallstones noted. No cholecystitis abnormal contour spleen -- possible abscess versus seroma 5.7 x 2.5 x 4.6 cm pancreas also calcifications noted in the region, nonobstructing renal calculi, anasarca thick walled loops of small bowel -- enteritis Ultrasound COMPARISON: LIVER US 07/31/2019 3:14 PM FINDINGS: Pleural space: Small left pleural effusion. Right kidney: No stones. No hydronephrosis. Left kidney: No stones. No hydronephrosis. Spleen: Complex subcapsular collection in spleen measuring 6.4 x 2.6 x 3 cm. Intraperitoneal space: Ascites. Bladder: Debris in urinary bladder. IMPRESSION: No hydronephrosis bilaterally. Debris in urinary bladder. Complex subcapsular collection in spleen measuring 6.4 x 2.6 x 3 cm. Ascites. Laboratory Tests 03/30/20 07:05 ASSESSMENT: 1. Acute left sided abdominal pain, with elevated lipase on 829, acute on chronic pancreatitis, per chart review, has history of autoimmune pancreatitis 2. Suspected MARTY on Chronic kidney disease stage III, 3. Splenic collection, seroma and possibly abscess, history of perisplenic/splenic abscess 02/2020, underwent IR drain in [facility] on 02/23, with history of enterobacter species, on cipro and flagyl 4. Ischemic cardiomyopathy, CABG, s/p AICD 5. Chronic systolic congestive heart failure 6. Diabetes Mellitus type II 7. Colostomy, sigmoid colectomy, 8. Peg tube placement, not used. 9. chronic anticoagulation with eliquis, history of pe/dvt PLANS: * discussed with Dr. Kent, IR, INR is still elevated today, off eliquis x 3 days now. Plavix is still on board. due to patient's significant CAD, as per patient's fiance, he had another cardiac event when off blood thinner. Will reviewe [facility] records again. * I spoke with Dr. Calle's ID in [facility], and we do have the same record that the splenic collection was 7 cm largest diameter, and then 4 cm post IR drain there, and noted that on recent US it is 6.5cm, slightly larger. Agreed to have another IR drain. Due to elevated INR, will hold off on ultrasound drainage for now. * Currently on cipro and flagyl prior to admission due to enterobacter. He follows up with in [facility]. * Overall, pain better. Not clinically supsecting abscess, more likely seroma, however, unclear if his recurrent pain is due to chronic pancreatitis, or due to enlarging subcapsular splenic collection. * Nephrology on board - due to concern that his kidney disease is related to IgG4 - he had no prior renal biopsy. Nephrology had increase his lasix at this time. * patient has history of stroke and has poor memory. Discussion on his health is via his fiance, Tram, who is well aware of all his condition. * Moderate risk * repeat IN, vitamin K now. VS,Fishbone, I+O VS, Fishbone, I+O Laboratory Tests 03/30/20 07:05 Vital Signs Date Time Temp Pulse Resp B/P (MAP) Pulse Ox O2 Delivery O2 Flow Rate FiO2 03/30/20 14:00 97.3 63 16 96/57 (70) 89 Room Air I&O- Last 24 Hours up to 6 AM 03/30/20 06:00 Intake Total 790 ml Output Total 2300 ml Balance -1510 ml QUIRINO CANSECO MD Mar 30, 2020 15:58
[2020-03-30] MEDS ORDERED: PHYTONADIONE 5 MG TAB PO ONE (16:15)
[2020-03-30] MEDS: MORPHINE 2 MG/ML 1ML VIAL (J2270) IV PRN (20:58)
[2020-03-30 22:00] VITALS: BP 106/61
[2020-03-30 23:45] LABS: APPEARANCE, URINE CLEAR (CLEAR); BACTERIA, URINE AUTO NEGATIVE (NEGATIVE); BILIRUBIN, URINE AUTO NEGATIVE (NEGATIVE); BLOOD, URINE BLOOD 2+ (NEGATIVE); COLOR, URINE YELLOW (YELLOW); GLUCOSE, URINE (UA) AUTO NEGATIVE (NEGATIVE); KETONE, URINE AUTO NEGATIVE (NEGATIVE); LEUKOCYTE ESTERASE, URINE AUTO 2+ (NEGATIVE); MUCUS, URINE SMALL (NEGATIVE); NITRITE, URINE AUTO NEGATIVE (NEGATIVE); PROTEIN, URINE AUTO NEGATIVE (NEGATIVE); RBC, URINE AUTO 19 /HPF (0-3); SPECIFIC GRAVITY URINE AUTO 1.005 (1.002-1.035); SQUAMOUS EPITHELIAL CELL UR AU 0 /HPF (0-6); UROBILINOGEN, URINE AUTO 0.2 mg/dL (0.0-2.0); WBC, URINE AUTO 53 /HPF (0-3)
[2020-03-31] MEDS: FUROSEMIDE 100MG/10ML VIAL (J1940) IV SCH ×3 (04:10→20:00)
[2020-03-31] MEDS: metroNIDAZOLE (FLAGYL) 500MG TABLET PO SCH ×2 (05:26→15:17)
[2020-03-31 06:00] VITALS: BP 116/68
[2020-03-31 06:40] LABS: HEMATOCRIT 34.5 % (42.0-52.0); HEMOGLOBIN 11.3 g/dl (13.5-17.5); MEAN CORPUSCULAR HEMOGLOBIN 28.8 pg (27.0-33.0); MEAN CORPUSCULAR HGB CONC 32.8 g/dl (32.0-36.5); MEAN CORPUSCULAR VOLUME 87.8 fl (80.0-96.0); PLATELET COUNT, AUTOMATED 259 10^3/uL (150-450); RED BLOOD COUNT 3.93 10^6/uL (4.30-6.10); WHITE BLOOD COUNT 12.4 10^3/uL (4.0-10.0)
[2020-03-31 07:07] LABS: CALCIUM LEVEL 8.5 MG/DL (8.5-10.1); CREATININE FOR GFR 3.7 MG/DL (0.70-1.30); GLOMERULAR FILTRATION RATE 18.5 (>56); POTASSIUM SERUM 3.8 MEQ/L (3.5-5.1)
[2020-03-31] MEDS: TIOTROPIUM INHALER/CAPSULE (SPIRIVA) INH SCH (07:14)
[2020-03-31] MEDS: HumaLOG INSULIN (NovoLOG) PER UNIT SC SCH ×4 (08:59→21:00)
[2020-03-31] MEDS: ursodioL 300 MG CAP PO SCH ×2 (09:49→20:25)
[2020-03-31] MEDS: FLUoxetine 20 MG CAP PO SCH (09:49)
[2020-03-31] MEDS: PANTOPRAZOLE 40MG VIAL (C9113 PER 1) IV SCH (09:49)
[2020-03-31] MEDS: CIPROFLOXACIN 500MG TABLET PO SCH (09:50)
[2020-03-31] MEDS: CARVedilol 3.125 MG TAB PO SCH ×2 (09:50→20:19)
[2020-03-31] MEDS: AMIODARONE 200 MG TAB (PACERONE) PO SCH ×2 (09:50→20:20)
[2020-03-31 10:21] LABS: INR 2.05; PROTHROMBIN TIME 23.6 SECONDS (11.8-14.0)
[2020-03-31] MEDS: MORPHINE 2 MG/ML 1ML VIAL (J2270) IV PRN (13:38)
[2020-03-31 14:00] VITALS: BP 117/69
--- NOTE | 2020-03-31 16:24 | IPNPDOC ---
Date Seen The patient was seen on 03/31/20. Progress Note SUBJECTIVE: Tolerating diet well, INR still slightly elevated so will hold off on IR drainage again today. Pain improving slowly. Admits to some nausea. Denies chest pain, fevers, chills. OBJECTIVE: PHYSICAL EXAMINATION: VITAL SIGNS: Please see below. General: awake, alert, oriented x 3 not in acute respiratory distress, appears as stated age, frail appearing man HEENT: anicteric sclerae, no nasal discharges, no throat exudates, no oral lesions, PERRL, EOM intact, NECK: supple, no cervical tenderness, no bruit noted, no rigidity noted CHEST: clear breath sounds, equal chest expansion, no rales or wheezing CVS; s1 and s2 distinct, no murmurs audible note, no rubs, or thrills, GI: soft, positive normoactive bowel sounds,left upper quadrant tenderness, positive peg tube (old not used); no rigidity , no guarding noted. left upper quadrant tenderness. 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 ASSESSMENT: 49 y/o M PMH of autoimmune pancreatitis admitted for acute on chronic pancreatitis, splenic collection (abscess? vs. seroma with hx of abscess 02/2020 s/p drainage). PLAN: 1. Acute on chronic pancreatitis. Hx of autoimmune pancreatitis. Abdominal pain improving; however, still requiring some morphine. Tolerating diet. Lipase improved at 380. 2. Suspected MARTY on Chronic kidney disease stage III. 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 Hx of MARTY requiring dialysis in 2019. Cr 3.70, nephrology following. Avoid nephrotoxic medications aside from lasix, daily labs. 3. Splenic collection, seroma and possibly abscess, history of perisplenic/splenic abscess 02/2020, underwent IR drain in [facility] on 02/23, with history of enterobacter species, on cipro and flagyl. Per prior physician here, she had spoke with Dr. Calle's ID in [facility], and we do have the same record that the splenic collection was 7 cm largest diameter, and then 4 cm post IR drain there, and noted that on recent US it is 6.5cm, slightly larger. Agreed to have another IR drain. Likely for IR guided biopsy, drainage and cultures on 04/01/20 if INR <2 in AM. S/p Vitamin K admin istered by prior provider. Plavix has been held x 4 days now, heparin to be held after midnight. WBC 12.4, afebrile. IR consulted. 4. Chronic systolic CHF, cardiomyopathy, CABG, s/p AICD. C/w lasix, other cardiac meds. Stable. 5. Diabetes Mellitus type II. Stable. BS wnl. C/w ISS, AC/HS finger sticks, consistent carb diet. 6. Hx of CVA. holding Plavix, not on home statin. 7. Hx of PE/DVT, DVT px. Stop heparin after midnight, resume after IR bx. DISPOSITION: Possible IR drainage of abscess 04/01/20, left message for IR to return call. Discharge plan not yet decided. VS, I&O, 24H, Fishbone Vital Signs/I&O Vital Signs Date Time Temp Pulse Resp B/P (MAP) Pulse Ox O2 Delivery O2 Flow Rate FiO2 03/31/20 14:00 97.6 78 18 117/69 (85) 90 Room Air 03/30/20 21:08 2.0 I&O- Last 24 Hours up to 6 AM 03/31/20 06:00 Intake Total 980 ml Output Total 2315 ml Balance -1335 ml Laboratory Data 24H LABS Laboratory Tests 2 03/30/20 23:15: Urine Color YELLOW, Urine Appearance CLEAR, Urine pH 5.0, Urine Specific [place] 1.005, Urine Protein NEGATIVE, Urine Glucose (Auto)(UA) NEGATIVE, Urine Ketones (Auto) NEGATIVE, Urine Blood 2+H, Urine Nitrite NEGATIVE, Urine Bilirubin NEGATIVE, Urine Urobilinogen 0.2, Urine Leukocyte Esterase (Auto) 2+H, Urine WBC (Auto) 53H, Urine RBC (Auto) 19H, Urine Hyaline Casts (Auto) 0, Urine Bacteria (Auto) NEGATIVE, Urine Squamous Epithelial Cells 0, Urine Mucus (Auto) SMALL, Urine Sperm (Auto) 03/31/20 05:20: Nucleated Red Blood Cells % (auto) 0.0 03/31/20 05:27: Anion Gap 9, Glomerular Filtration Rate 18.5L, Calcium Level 8.5, Total Bilirubin 1.0, Aspartate Amino Transf (AST/SGOT) 22, Alanine Aminotransferase (ALT/SGPT) 7L, Alkaline Phosphatase 113, Total Protein 6.0L, Albumin 2.0L, Albumin/Globulin Ratio 0.5, Lipase 380 03/31/20 09:29: Prothrombin Time 23.6H, Prothromb Time International Ratio 2.05 CBC/BMP Laboratory Tests 03/31/20 05:20 03/31/20 05:27 Microbiology Microbiology 03/24/20 Urine Culture - Final, Complete Current Medications Current Medications Medications (Trade) Dose Ordered Sig/Harish Route PRN Reason Start Time Stop Time Status Last Admin Dose Admin Acetaminophen (Tylenol Tab) 650 mg Q4H PRN PO PAIN OR FEVER 03/24/20 21:30 03/25/20 01:32 DC Acetaminophen (Tylenol Tab) 1,000 mg TID PRN PO mild pain 03/25/20 01:45 Albuterol Sulfate (Proventil, Ventolin Hfa) 2 puff Q4HP PRN INH SHORTNESS OF BREATH 03/25/20 01:30 Albuterol/ Ipratropium (Duoneb (Ipr 0.5mg/Alb 2.5mg)) 3 ml Q2HP PRN NEB SOB/WHEEZING 03/25/20 06:30 Amiodarone HCl (Pacerone, Cordarone) 200 mg BID PO 03/25/20 09:00 03/31/20 09:50 Apixaban (Eliquis) 5 mg BID PO 03/25/20 09:00 03/28/20 13:54 DC 03/28/20 09:37 Carvedilol (COReg) 3.125 mg BID PO 03/25/20 09:00 03/31/20 09:50 Ciprofloxacin (Cipro) 500 mg DAILY PO 03/25/20 09:00 04/06/20 09:01 03/31/20 09:50 Clopidogrel Bisulfate (PLAVix) 75 mg DAILY PO 03/25/20 09:00 Hold 03/30/20 09:44 Dextrose (Dextrose 50%) 25 ml ASDIRECTED PRN IV SEE LABEL COMMENTS 03/24/20 21:30 03/27/20 16:04 DC Dextrose (Dextrose 50%) 25 ml ASDIRECTED PRN IV SEE LABEL COMMENTS 03/27/20 16:00 Dextrose (Dextrose 50%) 25 ml STAT STAT IV 03/29/20 09:38 03/29/20 09:40 DC 03/29/20 09:56 Dextrose/Sodium Chloride 1,000 ml @ 100 mls/hr Q10H IV 03/24/20 21:30 03/27/20 11:33 DC 03/27/20 11:09 Fluoxetine HCl (PROzac) 40 mg DAILY PO 03/25/20 09:00 03/31/20 09:49 Furosemide (LASIX injection) 60 mg Q8H IV 03/28/20 20:00 03/29/20 10:57 DC 03/29/20 04:50 Furosemide (LASIX injection) 80 mg Q8H IV 03/29/20 12:00 03/31/20 12:52 Furosemide (Lasix) 40 mg BID PO 03/25/20 09:00 03/25/20 10:49 DC 03/25/20 08:45 Glucagon (Glucagon) 1 mg ASDIRECTED PRN SC SEE LABEL COMMENTS 03/24/20 21:30 03/27/20 16:04 DC Glucagon (Glucagon) 1 mg ASDIRECTED PRN SC SEE LABEL COMMENTS 03/27/20 16:00 Glucose (Glucose) 16 GM ASDIRECTED PRN PO SEE LABEL COMMENTS 03/24/20 21:30 03/27/20 16:04 DC Glucose (Glucose) 16 GM ASDIRECTED PRN PO SEE LABEL COMMENTS 03/27/20 16:00 Home Med (Med Rec Complete!) ASDIRECTED XX 03/24/20 21:00 03/24/20 21:01 DC Insulin Human Lispro (HumaLOG INSULIN) SEE PROTOCOL TABLE Q6H SC 03/25/20 00:00 03/27/20 14:06 DC 03/27/20 05:48 Insulin Human Lispro (HumaLOG INSULIN) See Protocol Table AC SC 03/27/20 17:30 03/31/20 12:52 Insulin Human Lispro (HumaLOG INSULIN) See Protocol Table QHS SC 03/27/20 21:00 Insulin Human Regular (HumuLIN R INSULIN) 10 units STAT STAT IV 03/29/20 09:38 03/29/20 09:40 DC 03/29/20 09:57 Metronidazole (Flagyl) 500 mg Q8H PO 03/25/20 06:00 04/06/20 22:01 03/31/20 15:17 Morphine Sulfate (Morphine Sulfate Inj) 2 mg Q3H PRN IV SEVERE PAIN (PS 8-10) 03/25/20 10:45 03/31/20 13:38 Nitroglycerin (Nitrostat (1/ 150)) 0.4 mg Q5MP PRN SL CHEST PAIN 03/25/20 01:30 Ondansetron HCl (ZOFRAN INJection) 4 mg Q6HP PRN IV NAUSEA OR VOMITING 03/25/20 16:30 03/29/20 13:47 Ondansetron HCl (Zofran) 4 mg Q8H PRN PO NAUSEA 03/25/20 01:30 03/25/20 06:26 DC Oxycodone/ Acetaminophen (Percocet 5mg/ 325mg Tablet) 1 tab Q6HP PRN PO MILD/MODERATE PAIN (PS 1-7) 03/28/20 08:00 03/30/20 16:52 Pantoprazole Sodium (Protonix) 40 mg DAILY PO 03/25/20 09:00 03/25/20 16:25 DC 03/25/20 08:44 Pantoprazole Sodium (Protonix) 40 mg Q24H IV 03/26/20 09:00 03/31/20 09:49 Sodium Bicarbonate (Sodium Bicarbonate) 1,300 mg DAILY PO 03/25/20 09:00 03/30/20 11:41 DC 03/30/20 11:05 Tiotropium [place] (Spiriva Handihaler) 1 inhalation DAILY@0800 INH 03/25/20 08:00 03/27/20 07:39 Tramadol HCl (Ultram) 50 mg Q6HP PRN PO MODERATE TO SEVERE PAIN 03/25/20 01:45 03/28/20 07:59 DC 03/28/20 06:07 Trimethobenzamide HCl (Tigan) 300 mg Q6HP PRN PO NAUSEA OR VOMITING 03/29/20 15:00 03/29/20 17:29 Trimethobenzamide HCl (Tigan) 300 mg Q8HP PRN PO NAUSEA 03/25/20 06:00 03/25/20 10:47 DC Ursodiol (Actigall) 300 mg BID PO 03/25/20 09:00 03/31/20 09:49 Allergies Coded Allergies: No Known Drug Allergies (Verified Allergy, Unknown, 6/2/19) Caterina Meek MD Mar 31, 2020 16:24
[2020-03-31] MEDS ORDERED: HEPARIN SOD (PORCINE) 5000UNITS/ML 1ML VIAL/SYRINGE SQ SCH (16:30)
[2020-03-31] MEDS: ONDANSETRON 4MG/2ML VIAL IV PRN (16:52)
[2020-03-31 22:00] VITALS: BP 105/64
[2020-04-01] MEDS: metroNIDAZOLE (FLAGYL) 500MG TABLET PO SCH ×4 (00:39→21:22)
[2020-04-01] MEDS: MORPHINE 2 MG/ML 1ML VIAL (J2270) IV PRN ×3 (05:35→23:33)
[2020-04-01 06:00] VITALS: BP 120/73
[2020-04-01 07:06] LABS: HEMATOCRIT 32.9 % (42.0-52.0); HEMOGLOBIN 10.7 g/dl (13.5-17.5); MEAN CORPUSCULAR HEMOGLOBIN 28.5 pg (27.0-33.0); MEAN CORPUSCULAR HGB CONC 32.5 g/dl (32.0-36.5); MEAN CORPUSCULAR VOLUME 87.5 fl (80.0-96.0); PLATELET COUNT, AUTOMATED 230 10^3/uL (150-450); RED BLOOD COUNT 3.76 10^6/uL (4.30-6.10); WHITE BLOOD COUNT 11.7 10^3/uL (4.0-10.0)
[2020-04-01 07:22] LABS: BILIRUBIN,TOTAL 1.1 MG/DL (0.2-1.0); CALCIUM LEVEL 8.4 MG/DL (8.5-10.1); CREATININE FOR GFR 3.75 MG/DL (0.70-1.30); GLOMERULAR FILTRATION RATE 18.2 (>56); POTASSIUM SERUM 3.7 MEQ/L (3.5-5.1); TOTAL PROTEIN 6.1 GM/DL (6.4-8.2)
[2020-04-01] MEDS: HumaLOG INSULIN (NovoLOG) PER UNIT SC SCH ×4 (07:30→21:00)
[2020-04-01 07:31] LABS: INR 1.86; PROTHROMBIN TIME 21.8 SECONDS (11.8-14.0)
[2020-04-01] MEDS: TIOTROPIUM INHALER/CAPSULE (SPIRIVA) INH SCH (07:41)
[2020-04-01] MEDS ORDERED: LIDOCAINE 1% MDV 20ML VIAL As Ordered ONE (09:43)
[2020-04-01] MEDS: ursodioL 300 MG CAP PO SCH ×2 (10:40→21:22)
[2020-04-01] MEDS: PANTOPRAZOLE 40MG VIAL (C9113 PER 1) IV SCH (10:41)
[2020-04-01] MEDS: FLUoxetine 20 MG CAP PO SCH (10:41)
[2020-04-01] MEDS: CIPROFLOXACIN 500MG TABLET PO SCH (10:41)
[2020-04-01] MEDS: CARVedilol 3.125 MG TAB PO SCH ×2 (10:41→21:23)
[2020-04-01] MEDS: AMIODARONE 200 MG TAB (PACERONE) PO SCH ×2 (10:41→21:22)
[2020-04-01 14:00] VITALS: BP 122/72
[2020-04-01] MEDS: TRIMETHOBENZAMIDE 300 MG CAP PO PRN (17:11)
--- NOTE | 2020-04-01 17:11 | IPNPDOC ---
Date Seen The patient was seen on 04/01/20. Progress Note SUBJECTIVE: Poor PO intake, will ask nutrition to see again to make suggestions on needing to use feeding tube or not? Patient refused IR drainage today when he heard the procedure would be high risk with needing to pass needle through pleural space. INR <2, restarting anticoagulation today. Has nausea and feels this is 2/2 to PO antibiotics. Denies chest pain, fevers, chills. OBJECTIVE: PHYSICAL EXAMINATION: VITAL SIGNS: Please see below. General: awake, alert, oriented x 3 not in acute respiratory distress, appears as stated age, emaciated HEENT: anicteric sclerae, no nasal discharges, no throat exudates, no oral lesions, PERRL, EOM intact, NECK: supple, no cervical tenderness, no bruit noted, no rigidity noted CHEST: clear breath sounds, equal chest expansion, no rales or wheezing CVS; s1 and s2 distinct, no murmurs audible note, no rubs, or thrills, GI: soft, positive normoactive bowel sounds,left upper quadrant tenderness, positive peg tube (old not used); no rigidity , no guarding noted. left upper quadrant tenderness. 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 ASSESSMENT: 49 y/o M PMH of autoimmune pancreatitis admitted for acute on chronic pancreatitis, splenic collection (abscess? vs. seroma with hx of abscess 02/2020 s/p drainage). PLAN: 1. Splenic collection, seroma and possibly abscess, history of perisplenic/splenic abscess 02/2020, underwent IR drain in [facility] on 02/23, with history of enterobacter species, on cipro and flagyl. Per prior physician here, she had spoke with Dr. Calle (ID) at [facility], and we do have the same record that the splenic collection was 7 cm largest diameter, and then 4 cm post IR drain there, and noted that on recent US it is 6.5cm, slightly larger. Agreed to have another IR drain previously; however, today refused drainage due to it being high risk with them needing to pass needle through pleural space. Per Dr. Kent (radiologist), this would put him at increased risk for empyema, pneumothorax. Patient would like to hold off if possible on this. Options would be maybe reimaging next week to see if it is bigger and more accessible vs. going through the pleural space. Would need to touch base with ID when returns next week to get suggestions on plan of treatment. WBC 11.7, afebrile. C/w current PO metronidazole, ciprofloxacin- duration of abx unknown so need to clarify. Consider ID consult here or touch base with Dr. Calle again before weekend. 2. MARTY on Chronic kidney disease stage III. 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 Hx of MARTY requiring dialysis in 2019. Cr 3.75, nephrology following. Avoid nephrotoxic medications aside from lasix, daily labs. 3. Nausea likely 2/2 to poor intake, oral abx. These suggestions for abx were based on ID recommendations from [facility]. Would recommend administration of zofran or phenergan prior to administration. Asked nutrition to reassess to see if feeding tube will need to be resumed. He has feeding tube that has been in place for 1 year, may need surgery to assess functionality if resume tube feeds. F/u recommendations. 4. Acute on chronic pancreatitis. Hx of autoimmune pancreatitis. Abdominal pain improving; however, still requiring some morphine. Tolerating diet but poor intake overall. Lipase improved at 380. 5. Chronic systolic CHF, cardiomyopathy, CABG, s/p AICD. C/w lasix, other cardiac meds. Stable. 6. Diabetes Mellitus type II. Stable. BS wnl. C/w ISS, AC/HS finger sticks, consistent carb diet. 7. Hx of CVA. C/w plavix, not on statin. 8. Hx of PE/DVT, DVT px. Resuming eliquis BID DISPOSITION: Discuss with ID next week upon return or call ID at [facility] to discuss current issue. Discussed with geovanni today about poor PO intake with current illness, will reconsult nutrition to see if feeding tube will be needing to be used again until patient has better appetite. Discharge plan not yet decided. I believe palliative care discussion may be appropriate if patient does not improve going forward. VS, I&O, 24H, Fishbone Vital Signs/I&O Vital Signs Date Time Temp Pulse Resp B/P (MAP) Pulse Ox O2 Delivery O2 Flow Rate FiO2 04/01/20 14:00 98.8 82 17 122/72 (89) 92 Nasal Cannula 3.0 I&O- Last 24 Hours up to 6 AM 04/01/20 06:00 Intake Total 1110 ml Output Total 1750 ml Balance -640 ml Laboratory Data 24H LABS Laboratory Tests 2 04/01/20 06:10: Nucleated Red Blood Cells % (auto) 0.0, Prothrombin Time 21.8H, Prothromb Time International Ratio 1.86, Anion Gap 10, Glomerular Filtration Rate 18.2L, Calcium Level 8.4L, Total Bilirubin 1.1H, Aspartate Amino Transf (AST/SGOT) 16, Alanine Aminotransferase (ALT/SGPT) 6L, Alkaline Phosphatase 119H, Total Protein 6.1L, Albumin 2.0L, Albumin/Globulin Ratio 0.5, Lipase 308 CBC/BMP Laboratory Tests 04/01/20 06:10 Microbiology Microbiology 03/24/20 Urine Culture - Final, Complete Current Medications Current Medications Medications (Trade) Dose Ordered Sig/Harish Route PRN Reason Start Time Stop Time Status Last Admin Dose Admin Acetaminophen (Tylenol Tab) 650 mg Q4H PRN PO PAIN OR FEVER 03/24/20 21:30 03/25/20 01:32 DC Acetaminophen (Tylenol Tab) 1,000 mg TID PRN PO mild pain 03/25/20 01:45 Albuterol Sulfate (Proventil, Ventolin Hfa) 2 puff Q4HP PRN INH SHORTNESS OF BREATH 03/25/20 01:30 Albuterol/ Ipratropium (Duoneb (Ipr 0.5mg/Alb 2.5mg)) 3 ml Q2HP PRN NEB SOB/WHEEZING 03/25/20 06:30 Amiodarone HCl (Pacerone, Cordarone) 200 mg BID PO 03/25/20 09:00 04/01/20 10:41 Apixaban (Eliquis) 5 mg BID PO 03/25/20 09:00 03/28/20 13:54 DC 03/28/20 09:37 Carvedilol (COReg) 3.125 mg BID PO 03/25/20 09:00 04/01/20 10:41 Ciprofloxacin (Cipro) 500 mg DAILY PO 03/25/20 09:00 04/06/20 09:01 04/01/20 10:41 Clopidogrel Bisulfate (PLAVix) 75 mg DAILY PO 03/25/20 09:00 Hold 03/30/20 09:44 Dextrose (Dextrose 50%) 25 ml ASDIRECTED PRN IV SEE LABEL COMMENTS 03/24/20 21:30 03/27/20 16:04 DC Dextrose (Dextrose 50%) 25 ml ASDIRECTED PRN IV SEE LABEL COMMENTS 03/27/20 16:00 Dextrose (Dextrose 50%) 25 ml STAT STAT IV 03/29/20 09:38 03/29/20 09:40 DC 03/29/20 09:56 Dextrose/Sodium Chloride 1,000 ml @ 100 mls/hr Q10H IV 03/24/20 21:30 03/27/20 11:33 DC 03/27/20 11:09 Fluoxetine HCl (PROzac) 40 mg DAILY PO 03/25/20 09:00 04/01/20 10:41 Furosemide (LASIX injection) 60 mg Q8H IV 03/28/20 20:00 03/29/20 10:57 DC 03/29/20 04:50 Furosemide (LASIX injection) 80 mg Q8H IV 03/29/20 12:00 03/31/20 21:12 DC 03/31/20 12:52 Furosemide (Lasix) 40 mg BID PO 03/25/20 09:00 03/25/20 10:49 DC 03/25/20 08:45 Glucagon (Glucagon) 1 mg ASDIRECTED PRN SC SEE LABEL COMMENTS 03/24/20 21:30 03/27/20 16:04 DC Glucagon (Glucagon) 1 mg ASDIRECTED PRN SC SEE LABEL COMMENTS 03/27/20 16:00 Glucose (Glucose) 16 GM ASDIRECTED PRN PO SEE LABEL COMMENTS 03/24/20 21:30 03/27/20 16:04 DC Glucose (Glucose) 16 GM ASDIRECTED PRN PO SEE LABEL COMMENTS 03/27/20 16:00 Heparin Sodium (Porcine) (Heparin) 5,000 units Q8H SQ 03/31/20 16:30 04/01/20 00:00 DC 03/31/20 16:53 Home Med (Med Rec Complete!) ASDIRECTED XX 03/24/20 21:00 03/24/20 21:01 DC Insulin Human Lispro (HumaLOG INSULIN) SEE PROTOCOL TABLE Q6H SC 03/25/20 00:00 03/27/20 14:06 DC 03/27/20 05:48 Insulin Human Lispro (HumaLOG INSULIN) See Protocol Table AC SC 03/27/20 17:30 04/01/20 12:27 Insulin Human Lispro (HumaLOG INSULIN) See Protocol Table QHS SC 03/27/20 21:00 Insulin Human Regular (HumuLIN R INSULIN) 10 units STAT STAT IV 03/29/20 09:38 03/29/20 09:40 DC 03/29/20 09:57 Metronidazole (Flagyl) 500 mg Q8H PO 03/25/20 06:00 04/06/20 22:01 04/01/20 13:39 Morphine Sulfate (Morphine Sulfate Inj) 1 mg Q6H PRN IV SEVERE PAIN (PS 8-10) 03/31/20 16:15 04/01/20 12:45 Morphine Sulfate (Morphine Sulfate Inj) 2 mg Q3H PRN IV SEVERE PAIN (PS 8-10) 03/25/20 10:45 03/31/20 16:18 DC 03/31/20 13:38 Nitroglycerin (Nitrostat (1/ 150)) 0.4 mg Q5MP PRN SL CHEST PAIN 03/25/20 01:30 Ondansetron HCl (ZOFRAN INJection) 4 mg Q6HP PRN IV NAUSEA OR VOMITING 03/25/20 16:30 03/31/20 16:52 Ondansetron HCl (Zofran) 4 mg Q8H PRN PO NAUSEA 03/25/20 01:30 03/25/20 06:26 DC Oxycodone/ Acetaminophen (Percocet 5mg/ 325mg Tablet) 1 tab Q6HP PRN PO MILD/MODERATE PAIN (PS 1-7) 03/28/20 08:00 03/30/20 16:52 Pantoprazole Sodium (Protonix) 40 mg DAILY PO 03/25/20 09:00 03/25/20 16:25 DC 03/25/20 08:44 Pantoprazole Sodium (Protonix) 40 mg Q24H IV 03/26/20 09:00 04/01/20 10:41 Sodium Bicarbonate (Sodium Bicarbonate) 1,300 mg DAILY PO 03/25/20 09:00 03/30/20 11:41 DC 03/30/20 11:05 Tiotropium [place] (Spiriva Handihaler) 1 inhalation DAILY@0800 INH 03/25/20 08:00 03/27/20 07:39 Tramadol HCl (Ultram) 50 mg Q6HP PRN PO MODERATE TO SEVERE PAIN 03/25/20 01:45 03/28/20 07:59 DC 03/28/20 06:07 Trimethobenzamide HCl (Tigan) 300 mg Q6HP PRN PO NAUSEA OR VOMITING 03/29/20 15:00 04/01/20 17:11 Trimethobenzamide HCl (Tigan) 300 mg Q8HP PRN PO NAUSEA 03/25/20 06:00 03/25/20 10:47 DC Ursodiol (Actigall) 300 mg BID PO 03/25/20 09:00 04/01/20 10:40 Allergies Coded Allergies: No Known Drug Allergies (Verified Allergy, Unknown, 01/06/19) Caterina Meek MD Apr 01, 2020 17:11
[2020-04-01] MEDS: LACTOBACILLUS ACIDOPHILUS CAP (BACID) PO SCH (17:47)
[2020-04-01] MEDS: CLOPIDOGREL 75 MG TAB PO SCH (17:47)
[2020-04-01] MEDS: APIXABAN 5 MG TAB (ELIQUIS) PO SCH (21:22)
[2020-04-01 22:00] VITALS: BP 120/76
[2020-04-01] MEDS: PERCOCET 5MG/325MG TAB PO PRN (22:58)
[2020-04-02] MEDS: metroNIDAZOLE (FLAGYL) 500MG TABLET PO SCH ×2 (05:42→14:10)
[2020-04-02 06:00] VITALS: BP 120/76
[2020-04-02 07:08] LABS: INR 2.58; PROTHROMBIN TIME 28.3 SECONDS (11.8-14.0)
[2020-04-02] MEDS: TIOTROPIUM INHALER/CAPSULE (SPIRIVA) INH SCH (07:58)
[2020-04-02] MEDS: HumaLOG INSULIN (NovoLOG) PER UNIT SC SCH ×4 (08:48→20:33)
[2020-04-02] MEDS: PANTOPRAZOLE 40MG VIAL (C9113 PER 1) IV SCH (08:49)
[2020-04-02] MEDS: FLUoxetine 20 MG CAP PO SCH (08:49)
[2020-04-02] MEDS: LACTOBACILLUS ACIDOPHILUS CAP (BACID) PO SCH ×2 (08:49→17:00)
[2020-04-02] MEDS: APIXABAN 5 MG TAB (ELIQUIS) PO SCH ×2 (08:49→20:32)
[2020-04-02] MEDS: ursodioL 300 MG CAP PO SCH ×2 (08:49→20:32)
[2020-04-02] MEDS: CIPROFLOXACIN 500MG TABLET PO SCH (08:49)
[2020-04-02] MEDS: CLOPIDOGREL 75 MG TAB PO SCH (08:49)
[2020-04-02] MEDS: AMIODARONE 200 MG TAB (PACERONE) PO SCH ×2 (08:50→20:32)
[2020-04-02] MEDS: CARVedilol 3.125 MG TAB PO SCH ×2 (08:52→20:32)
[2020-04-02] MEDS: MORPHINE 2 MG/ML 1ML VIAL (J2270) IV PRN ×3 (09:14→23:48)
[2020-04-02] MEDS: ONDANSETRON 4MG/2ML VIAL IV PRN (10:51)
[2020-04-02] MEDS: PERCOCET 5MG/325MG TAB PO PRN (10:52)
[2020-04-02 14:00] VITALS: BP 120/70
--- NOTE | 2020-04-02 14:16 | IPNPDOC ---
Date Seen The patient was seen on 04/02/20. Progress Note SUBJECTIVE: Poor PO intake, nutrition recommending to restart enteral nutrition in addition to diet. Surgery consulted to evaluate feeding tube to see if able to use vs. needing to be replaced. Discussed with [facility] ID clinic (Aubree Rendon PA-C) who recommended if patient cannot tolerate PO abx to change back to Ertapenem IV and repeat imaging next week to see if abscess/seroma has increased in size. If has increased in size, consider IR consult again at that time to see if can access it differently vs. going through pleural space. Scheduled zofran today due to increased nausea. Denies chest pain, fevers, chills. OBJECTIVE: PHYSICAL EXAMINATION: VITAL SIGNS: Please see below. General: awake, alert, oriented x 3 not in acute respiratory distress, emaciated, appears uncomfortable from pain in left leg HEENT: anicteric sclerae, no nasal discharges, no throat exudates, no oral lesions, PERRL, EOM intact, dentures in place NECK: supple, no cervical tenderness, no bruit noted, no rigidity noted CHEST: clear breath sounds, equal chest expansion, no rales or wheezing CVS; s1 and s2 distinct, no murmurs audible note, no rubs, or thrills, GI: soft, positive normoactive bowel sounds,left upper quadrant tenderness, positive peg tube (old not used); no rigidity , no guarding noted. left upper quadrant tenderness. 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 ASSESSMENT: 49 y/o M PMH of autoimmune pancreatitis admitted for acute on chronic pancreatitis, splenic collection (abscess? vs. seroma with hx of abscess 02/2020 s/p drainage). PLAN: 1. Splenic collection, seroma and possibly abscess, history of courtney splenic/splenic abscess 02/2020, underwent IR drain in [facility] on 02/23, with history of enterobacter species, on cipro and flagyl. Currently afebrile, WBC wnl. Prior hospitalist before me she had spoke with Dr. Palmer (ID) at [facility], and we do have the same record that the splenic collection was 7 cm largest diameter, and then 4 cm post IR drain there, and noted that on recent US it is 6.5cm, slightly larger. Agreed to have another IR drain previously; however, 04/01/20 refused drainage due to it being high risk with them needing to pass needle through pleural space. Per Dr. Kent (radiologist), this would put him at increased risk for empyema, pneumothorax. Discussed inability to proceed forward with drainaging with ID PA today at [facility] as mentioned under "Subjective". Plan is to d/c ciprofloxacin and flagyl due to nausea, restart Ertapenem IV (what Enterobacter isolated previously was sensitive to in 02/2020), reimaging next week to see if splenic collection bigger and more accessible vs. going through the pleural space. When nausea has improved, can consider transitioning back to PO abx. Patient will have to remain on abx until splenic collection is resolved per ID. 2. Poor oral intake, nausea likely 2/2 to acute infection/illness above. Per dietary, advisable to restart enteral nutrition, as PO intake has been inadequate. Concerns for continued wt loss. Recommendin. Changing diet to Low fat, pancreatic enzymes with meals, Jevity 1.5 @ 60 mL/HR and free water flushes 160 mL Q4 hr through feeding tube. Will have surgery evaluate structure and ability to use current tube. May require to be changed out. Changing abx to IV as this was less harsh on stomach previously. 3. MARTY on Chronic kidney disease stage III. 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 Hx of MARTY requiring dialysis in 2019. Cr 3.75, nephrology following. Avoid nephrotoxic medications aside from lasix, daily labs. 4. Acute on chronic pancreatitis. Hx of autoimmune pancreatitis. lipase, CMP improved. Abdominal pain improving; however, still requiring some morphine PRN. Poor intake, changing to low fat diet with pancreatic enzymes with meals. 5. Chronic systolic CHF, cardiomyopathy, CABG, s/p AICD. C/w lasix, other cardiac meds. Stable. 6. Diabetes Mellitus type II. Stable. BS wnl. C/w ISS, AC/HS finger sticks, consistent carb diet. 7. Hx of CVA. C/w plavix, not on statin. 8. Hx of PE/DVT, DVT px. Eliquis BID DISPOSITION: For further questions concerning infection, splenic collection/abscess? can call ID clinic at [facility] as we do not have ID here this week. F/u surgery opinion on feeding tube and start enteral feedings as soon as possible. VS, I&O, 24H, Fishbone Vital Signs/I&O Vital Signs Date Time Temp Pulse Resp B/P (MAP) Pulse Ox O2 Delivery O2 Flow Rate FiO2 04/02/20 11:30 18 04/02/20 09:00 3.0 04/02/20 08:52 79 121/77 04/02/20 06:00 98.1 91 Nasal Cannula I&O- Last 24 Hours up to 6 AM 04/02/20 06:00 Intake Total 740 ml Output Total 300 ml Balance 440 ml Laboratory Data 24H LABS Laboratory Tests 2 04/02/20 05:50: Prothrombin Time 28.3H, Prothromb Time International Ratio 2.58 Microbiology Microbiology 03/24/20 Urine Culture - Final, Complete Current Medications Current Medications Medications (Trade) Dose Ordered Sig/Harish Route PRN Reason Start Time Stop Time Status Last Admin Dose Admin Acetaminophen (Tylenol Tab) 650 mg Q4H PRN PO PAIN OR FEVER 03/24/20 21:30 03/25/20 01:32 DC Acetaminophen (Tylenol Tab) 1,000 mg TID PRN PO mild pain 03/25/20 01:45 Albuterol Sulfate (Proventil, Ventolin Hfa) 2 puff Q4HP PRN INH SHORTNESS OF BREATH 03/25/20 01:30 Albuterol/ Ipratropium (Duoneb (Ipr 0.5mg/Alb 2.5mg)) 3 ml Q2HP PRN NEB SOB/WHEEZING 03/25/20 06:30 Amiodarone HCl (Pacerone, Cordarone) 200 mg BID PO 03/25/20 09:00 04/02/20 08:50 Apixaban (Eliquis) 5 mg BID PO 03/25/20 09:00 03/28/20 13:54 DC 03/28/20 09:37 Apixaban (Eliquis) 5 mg BID PO 04/01/20 21:00 04/02/20 08:49 Artificial Tears (Akwa Tears) 2 drop Q4HP PRN OU DRY EYES 04/02/20 13:45 Carvedilol (COReg) 3.125 mg BID PO 03/25/20 09:00 04/02/20 08:52 Ciprofloxacin (Cipro) 500 mg DAILY PO 03/25/20 09:00 04/02/20 14:20 DC 04/02/20 08:49 Clopidogrel Bisulfate (PLAVix) 75 mg DAILY PO 03/25/20 09:00 04/01/20 17:17 DC 03/30/20 09:44 Clopidogrel Bisulfate (PLAVix) 75 mg DAILY PO 04/01/20 17:30 04/02/20 08:49 Dextrose (Dextrose 50%) 25 ml ASDIRECTED PRN IV SEE LABEL COMMENTS 03/24/20 21:30 03/27/20 16:04 DC Dextrose (Dextrose 50%) 25 ml ASDIRECTED PRN IV SEE LABEL COMMENTS 03/27/20 16:00 Dextrose (Dextrose 50%) 25 ml STAT STAT IV 03/29/20 09:38 03/29/20 09:40 DC 03/29/20 09:56 Dextrose/Sodium Chloride 1,000 ml @ 100 mls/hr Q10H IV 03/24/20 21:30 03/27/20 11:33 DC 03/27/20 11:09 Ertapenem 0.5 gm/ Sodium Chloride 50 ml @ 100 mls/hr Q24H IV 04/02/20 16:00 04/02/20 14:28 DC Ertapenem 0.5 gm/ Sodium Chloride 50 ml @ 100 mls/hr Q24H IV 04/02/20 16:00 Fluoxetine HCl (PROzac) 40 mg DAILY PO 03/25/20 09:00 04/02/20 08:49 Furosemide (LASIX injection) 60 mg Q8H IV 03/28/20 20:00 03/29/20 10:57 DC 03/29/20 04:50 Furosemide (LASIX injection) 80 mg Q8H IV 03/29/20 12:00 03/31/20 21:12 DC 03/31/20 12:52 Furosemide (Lasix) 40 mg BID PO 03/25/20 09:00 03/25/20 10:49 DC 03/25/20 08:45 Glucagon (Glucagon) 1 mg ASDIRECTED PRN SC SEE LABEL COMMENTS 03/24/20 21:30 03/27/20 16:04 DC Glucagon (Glucagon) 1 mg ASDIRECTED PRN SC SEE LABEL COMMENTS 03/27/20 16:00 Glucose (Glucose) 16 GM ASDIRECTED PRN PO SEE LABEL COMMENTS 03/24/20 21:30 03/27/20 16:04 DC Glucose (Glucose) 16 GM ASDIRECTED PRN PO SEE LABEL COMMENTS 03/27/20 16:00 Heparin Sodium (Porcine) (Heparin) 5,000 units Q8H SQ 03/31/20 16:30 04/01/20 00:00 DC 03/31/20 16:53 Home Med (Med Rec Complete!) ASDIRECTED XX 03/24/20 21:00 03/24/20 21:01 DC Insulin Human Lispro (HumaLOG INSULIN) SEE PROTOCOL TABLE Q6H SC 03/25/20 00:00 03/27/20 14:06 DC 03/27/20 05:48 Insulin Human Lispro (HumaLOG INSULIN) See Protocol Table AC SC 03/27/20 17:30 04/02/20 12:48 Insulin Human Lispro (HumaLOG INSULIN) See Protocol Table QHS SC 03/27/20 21:00 Insulin Human Regular (HumuLIN R INSULIN) 10 units STAT STAT IV 03/29/20 09:38 03/29/20 09:40 DC 03/29/20 09:57 Lactobacillus Acidophilus (Bacid) 1 ea BIDWM PO 04/01/20 18:00 04/02/20 08:49 Metronidazole (Flagyl) 500 mg Q8H PO 03/25/20 06:00 04/02/20 14:20 DC 04/02/20 05:42 Morphine Sulfate (Morphine Sulfate Inj) 1 mg Q6H PRN IV SEVERE PAIN (PS 8-10) 03/31/20 16:15 04/02/20 09:14 Morphine Sulfate (Morphine Sulfate Inj) 2 mg Q3H PRN IV SEVERE PAIN (PS 8-10) 03/25/20 10:45 03/31/20 16:18 DC 03/31/20 13:38 Nitroglycerin (Nitrostat (1/ 150)) 0.4 mg Q5MP PRN SL CHEST PAIN 03/25/20 01:30 Ondansetron HCl (ZOFRAN INJection) 4 mg Q6HP PRN IV NAUSEA OR VOMITING 03/25/20 16:30 04/02/20 11:04 DC 04/02/20 10:51 Ondansetron HCl (Zofran Odt) 4 mg Q6H PO 04/02/20 17:00 Ondansetron HCl (Zofran) 4 mg Q8H PRN PO NAUSEA 03/25/20 01:30 03/25/20 06:26 DC Oxycodone/ Acetaminophen (Percocet 5mg/ 325mg Tablet) 1 tab Q4HP PRN PO MILD/MODERATE PAIN (PS 1-7) 04/02/20 15:00 Oxycodone/ Acetaminophen (Percocet 5mg/ 325mg Tablet) 1 tab Q6HP PRN PO MILD/MODERATE PAIN (PS 1-7) 03/28/20 08:00 04/02/20 11:04 DC 04/02/20 10:52 Pantoprazole Sodium (Protonix) 40 mg DAILY PO 03/25/20 09:00 03/25/20 16:25 DC 03/25/20 08:44 Pantoprazole Sodium (Protonix) 40 mg Q24H IV 03/26/20 09:00 04/02/20 08:49 Sodium Bicarbonate (Sodium Bicarbonate) 1,300 mg DAILY PO 03/25/20 09:00 03/30/20 11:41 DC 03/30/20 11:05 Tiotropium Decherd (Spiriva Handihaler) 1 inhalation DAILY@0800 INH 03/25/20 08:00 03/27/20 07:39 Tramadol HCl (Ultram) 50 mg Q6HP PRN PO MODERATE TO SEVERE PAIN 03/25/20 01:45 03/28/20 07:59 DC 03/28/20 06:07 Trimethobenzamide HCl (Tigan) 300 mg Q6HP PRN PO NAUSEA OR VOMITING 03/29/20 15:00 04/01/20 17:11 Trimethobenzamide HCl (Tigan) 300 mg Q8HP PRN PO NAUSEA 03/25/20 06:00 03/25/20 10:47 DC Ursodiol (Actigall) 300 mg BID PO 03/25/20 09:00 04/02/20 08:49 Allergies Coded Allergies: No Known Drug Allergies (Verified Allergy, Unknown, 01/06/19) Caterina Meek MD Apr 02, 2020 14:16
[2020-04-02 15:27] LABS: HEMATOCRIT 35.1 % (42.0-52.0); HEMOGLOBIN 11.1 g/dl (13.5-17.5); MEAN CORPUSCULAR HEMOGLOBIN 28.2 pg (27.0-33.0); MEAN CORPUSCULAR HGB CONC 31.6 g/dl (32.0-36.5); MEAN CORPUSCULAR VOLUME 89.1 fl (80.0-96.0); PLATELET COUNT, AUTOMATED 231 10^3/uL (150-450); RED BLOOD COUNT 3.94 10^6/uL (4.30-6.10); WHITE BLOOD COUNT 12.4 10^3/uL (4.0-10.0)
[2020-04-02 15:50] LABS: CALCIUM LEVEL 8.6 MG/DL (8.5-10.1); CREATININE FOR GFR 3.88 MG/DL (0.70-1.30); GLOMERULAR FILTRATION RATE 17.5 (>56); POTASSIUM SERUM 3.8 MEQ/L (3.5-5.1)
[2020-04-02] MEDS ORDERED: ERTAPENEM SODIUM 0.5 GM in NS 50 ML IV SCH (16:00)
[2020-04-02] MEDS: ERTAPENEM SODIUM 0.5 GM in NS 50 ML IV SCH (16:04)
[2020-04-02] MEDS: ONDANSETRON 4 MG ORAL DISINTEGRATING TAB PO SCH ×2 (16:04→23:48)
[2020-04-02] MEDS: POLYVINYL ALCOHOL OPHTH SOLN 15 ML(LIQUITEARS) OU PRN (16:08)
[2020-04-02 22:00] VITALS: BP 118/77
[2020-04-03] MEDS: ONDANSETRON 4 MG ORAL DISINTEGRATING TAB PO SCH ×5 (05:00→23:33)
[2020-04-03] MEDS: POLYVINYL ALCOHOL OPHTH SOLN 15 ML(LIQUITEARS) OU PRN (05:47)
[2020-04-03] MEDS: MORPHINE 2 MG/ML 1ML VIAL (J2270) IV PRN ×2 (05:48→12:21)
[2020-04-03 06:00] VITALS: BP 123/79
[2020-04-03 07:15] LABS: INR 2.57; PROTHROMBIN TIME 28.2 SECONDS (11.8-14.0)
[2020-04-03] MEDS: CREON-12 CAPSULE PO SCH ×3 (08:00→17:27)
[2020-04-03] MEDS: TIOTROPIUM INHALER/CAPSULE (SPIRIVA) INH SCH (08:00)
[2020-04-03] MEDS: HumaLOG INSULIN (NovoLOG) PER UNIT SC SCH ×4 (08:47→20:44)
[2020-04-03] MEDS: PANTOPRAZOLE 40MG VIAL (C9113 PER 1) IV SCH (08:48)
[2020-04-03] MEDS: ursodioL 300 MG CAP PO SCH ×2 (08:48→21:34)
[2020-04-03] MEDS: APIXABAN 5 MG TAB (ELIQUIS) PO SCH ×2 (08:48→21:35)
[2020-04-03] MEDS: LACTOBACILLUS ACIDOPHILUS CAP (BACID) PO SCH ×2 (08:49→17:27)
[2020-04-03] MEDS: FLUoxetine 20 MG CAP PO SCH (08:49)
[2020-04-03] MEDS: AMIODARONE 200 MG TAB (PACERONE) PO SCH ×2 (08:49→21:35)
[2020-04-03] MEDS: CLOPIDOGREL 75 MG TAB PO SCH (08:49)
[2020-04-03] MEDS: CARVedilol 3.125 MG TAB PO SCH ×2 (08:50→21:00)
[2020-04-03 14:00] VITALS: BP 107/74
[2020-04-03] MEDS: ERTAPENEM SODIUM 0.5 GM in NS 50 ML IV SCH (16:31)
--- NOTE | 2020-04-03 19:23 | IPNPDOC ---
Date Seen The patient was seen on 04/03/20. Progress Note SUBJECTIVE: Poor PO intake, enteral feedings started with diet change. Brought up palliative care with patient, he wanted to discuss with geovanni. Denies chest pain, fevers, chills. OBJECTIVE: PHYSICAL EXAMINATION: VITAL SIGNS: Please see below. General: awake, alert, oriented x 3 not in acute respiratory distress, emaciated, appears ill HEENT: anicteric sclerae, no nasal discharges, no throat exudates, no oral lesions, PERRL, EOM intact, dentures in place NECK: supple, no cervical tenderness, no bruit noted, no rigidity noted CHEST: clear breath sounds, equal chest expansion, no rales or wheezing CVS; s1 and s2 distinct, no murmurs audible note, no rubs, or thrills, GI: soft, positive normoactive bowel sounds,left upper quadrant tenderness, peg tube ; no rigidity , no guarding noted. left upper quadrant tenderness. 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 ASSESSMENT: 49 y/o M PMH of autoimmune pancreatitis admitted for acute on chronic pancreatitis, splenic collection (abscess? vs. seroma with hx of abscess 02/2020 s/p drainage). PLAN: 1. Splenic collection, seroma and possibly abscess, history of perisplenic/splenic abscess 02/2020, underwent IR drain in [facility] on 02/23, with history of enterobacter species, on cipro and flagyl. Currently afebrile, WBC wnl. Prior hospitalist before me she had spoke with Dr. Palmer (ID) at [facility], and we do have the same record that the splenic collection was 7 cm largest diameter, and then 4 cm post IR drain there, and noted that on recent US it is 6.5cm, slightly larger. Agreed to have another IR drain previously; however, 04/01/20 refused drainage due to it being high risk with them needing to pass needle through pleural space. Per Dr. Kent (radiologist), this would put him at increased risk for empyema, pneumothorax. Discussed inability to proceed forward with drainaging with ID PA today at [facility]. C/w Ertapenem IV (what Enterobacter isolated previously was sensitive to in 02/2020), reimaging next week to see if splenic collection bigger and more accessible vs. going through the pleural space. When nausea has improved, can consider transitioning back to PO abx. Patient will have to remain on abx until splenic collection is resolved per ID. 2. Poor oral intake, nausea likely 2/2 to acute infection/illness above. REsuming enteral feeding today, feeding tube ok per surgery to use. Also start on different PO diet, pancreatic enzymes with meals, free water flushes 160 mL Q4 hr through feeding tube. zofran ATC. Palliative care brought up with patient due to health decline, multiple hospitalizations and chronic pain. 3. MARTY on Chronic kidney disease stage III. 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 Hx of MARTY requiring dialysis in 2019. Cr 3.75, nephrology following. Avoid nephrotoxic medications aside from lasix, daily labs. 4. Acute on chronic pancreatitis. Hx of autoimmune pancreatitis. lipase, CMP improved. Abdominal pain improving; however, still requiring some morphine PRN. Poor intake, changing to low fat diet with pancreatic enzymes with meals. 5. Chronic systolic CHF, cardiomyopathy, CABG, s/p AICD. C/w lasix, other cardiac meds. Stable. 6. Diabetes Mellitus type II. Stable. BS wnl. C/w ISS, AC/HS finger sticks, consistent carb diet. 7. Hx of CVA. C/w plavix, not on statin. 8. Hx of PE/DVT, DVT px. Eliquis BID DISPOSITION: For further questions concerning infection, splenic co llection/abscess? can call ID clinic at [facility] as we do not have ID here this week. Will tb with patient and fiance about palliative care option. VS, I&O, 24H, Fishbone Vital Signs/I&O Vital Signs Date Time Temp Pulse Resp B/P (MAP) Pulse Ox O2 Delivery O2 Flow Rate FiO2 04/03/20 14:00 97.9 77 16 107/74 (85) 96 Nasal Cannula 3.0 I&O- Last 24 Hours up to 6 AM 04/03/20 06:00 Intake Total 1597 ml Output Total 700 ml Balance 897 ml Laboratory Data 24H LABS Laboratory Tests 2 04/03/20 06:39: Prothrombin Time 28.2H, Prothromb Time International Ratio 2.57 Microbiology Microbiology 03/24/20 Urine Culture - Final, Complete Current Medications Current Medications Medications (Trade) Dose Ordered Sig/Harish Route PRN Reason Start Time Stop Time Status Last Admin Dose Admin Acetaminophen (Tylenol Tab) 650 mg Q4H PRN PO PAIN OR FEVER 03/24/20 21:30 03/25/20 01:32 DC Acetaminophen (Tylenol Tab) 1,000 mg TID PRN PO mild pain 03/25/20 01:45 Albuterol Sulfate (Proventil, Ventolin Hfa) 2 puff Q4HP PRN INH SHORTNESS OF BREATH 03/25/20 01:30 Albuterol/ Ipratropium (Duoneb (Ipr 0.5mg/Alb 2.5mg)) 3 ml Q2HP PRN NEB SOB/WHEEZING 03/25/20 06:30 Amiodarone HCl (Pacerone, Cordarone) 200 mg BID PO 03/25/20 09:00 04/03/20 08:49 Apixaban (Eliquis) 5 mg BID PO 03/25/20 09:00 03/28/20 13:54 DC 03/28/20 09:37 Apixaban (Eliquis) 5 mg BID PO 04/01/20 21:00 04/03/20 08:48 Artificial Tears (Akwa Tears) 2 drop Q4HP PRN OU DRY EYES 04/02/20 13:45 04/03/20 05:47 Carvedilol (COReg) 3.125 mg BID PO 03/25/20 09:00 04/03/20 08:50 Ciprofloxacin (Cipro) 500 mg DAILY PO 03/25/20 09:00 04/02/20 14:20 DC 04/02/20 08:49 Clopidogrel Bisulfate (PLAVix) 75 mg DAILY PO 03/25/20 09:00 04/01/20 17:17 DC 03/30/20 09:44 Clopidogrel Bisulfate (PLAVix) 75 mg DAILY PO 04/01/20 17:30 04/03/20 08:49 Dextrose (Dextrose 50%) 25 ml ASDIRECTED PRN IV SEE LABEL COMMENTS 03/24/20 21:30 03/27/20 16:04 DC Dextrose (Dextrose 50%) 25 ml ASDIRECTED PRN IV SEE LABEL COMMENTS 03/27/20 16:00 Dextrose (Dextrose 50%) 25 ml STAT STAT IV 03/29/20 09:38 03/29/20 09:40 DC 03/29/20 09:56 Dextrose/Sodium Chloride 1,000 ml @ 100 mls/hr Q10H IV 03/24/20 21:30 03/27/20 11:33 DC 03/27/20 11:09 Ertapenem 0.5 gm/ Sodium Chloride 50 ml @ 100 mls/hr Q24H IV 04/02/20 16:00 04/03/20 16:31 Ertapenem 0.5 gm/ Sodium Chloride 50 ml @ 100 mls/hr Q24H IV 04/02/20 16:00 Cancel Fluoxetine HCl (PROzac) 40 mg DAILY PO 03/25/20 09:00 04/03/20 08:49 Furosemide (LASIX injection) 60 mg Q8H IV 03/28/20 20:00 03/29/20 10:57 DC 03/29/20 04:50 Furosemide (LASIX injection) 80 mg Q8H IV 03/29/20 12:00 03/31/20 21:12 DC 03/31/20 12:52 Furosemide (Lasix) 40 mg BID PO 03/25/20 09:00 03/25/20 10:49 DC 03/25/20 08:45 Glucagon (Glucagon) 1 mg ASDIRECTED PRN SC SEE LABEL COMMENTS 03/24/20 21:30 03/27/20 16:04 DC Glucagon (Glucagon) 1 mg ASDIRECTED PRN SC SEE LABEL COMMENTS 03/27/20 16:00 Glucose (Glucose) 16 GM ASDIRECTED PRN PO SEE LABEL COMMENTS 03/24/20 21:30 03/27/20 16:04 DC Glucose (Glucose) 16 GM ASDIRECTED PRN PO SEE LABEL COMMENTS 03/27/20 16:00 Heparin Sodium (Porcine) (Heparin) 5,000 units Q8H SQ 03/31/20 16:30 04/01/20 00:00 DC 03/31/20 16:53 Home Med (Med Rec Complete!) ASDIRECTED XX 03/24/20 21:00 03/24/20 21:01 DC Insulin Human Lispro (HumaLOG INSULIN) SEE PROTOCOL TABLE Q6H SC 03/25/20 00:00 03/27/20 14:06 DC 03/27/20 05:48 Insulin Human Lispro (HumaLOG INSULIN) See Protocol Table AC SC 03/27/20 17:30 04/03/20 17:27 Insulin Human Lispro (HumaLOG INSULIN) See Protocol Table QHS SC 03/27/20 21:00 Insulin Human Regular (HumuLIN R INSULIN) 10 units STAT STAT IV 03/29/20 09:38 03/29/20 09:40 DC 03/29/20 09:57 Lactobacillus Acidophilus (Bacid) 1 ea BIDWM PO 04/01/20 18:00 04/03/20 17:27 Metronidazole (Flagyl) 500 mg Q8H PO 03/25/20 06:00 04/02/20 14:20 DC 04/02/20 14:10 Morphine Sulfate (Morphine Sulfate Inj) 1 mg Q6H PRN IV SEVERE PAIN (PS 8-10) 03/31/20 16:15 04/03/20 12:21 Morphine Sulfate (Morphine Sulfate Inj) 2 mg Q3H PRN IV SEVERE PAIN (PS 8-10) 03/25/20 10:45 03/31/20 16:18 DC 03/31/20 13:38 Nitroglycerin (Nitrostat (1/ 150)) 0.4 mg Q5MP PRN SL CHEST PAIN 03/25/20 01:30 Ondansetron HCl (ZOFRAN INJection) 4 mg Q6HP PRN IV NAUSEA OR VOMITING 03/25/20 16:30 04/02/20 11:04 DC 04/02/20 10:51 Ondansetron HCl (Zofran Odt) 4 mg Q6H PO 04/02/20 17:00 04/03/20 16:30 Ondansetron HCl (Zofran) 4 mg Q8H PRN PO NAUSEA 03/25/20 01:30 03/25/20 06:26 DC Oxycodone/ Acetaminophen (Percocet 5mg/ 325mg Tablet) 1 tab Q4HP PRN PO MILD/MODERATE PAIN (PS 1-7) 04/02/20 15:00 Oxycodone/ Acetaminophen (Percocet 5mg/ 325mg Tablet) 1 tab Q6HP PRN PO MILD/MODERATE PAIN (PS 1-7) 03/28/20 08:00 04/02/20 11:04 DC 04/02/20 10:52 Pancrelipase (Creon-12) 1 ea WM PO 04/03/20 08:00 04/03/20 17:27 Pantoprazole Sodium (Protonix) 40 mg DAILY PO 03/25/20 09:00 03/25/20 16:25 DC 03/25/20 08:44 Pantoprazole Sodium (Protonix) 40 mg Q24H IV 03/26/20 09:00 04/03/20 08:48 Sodium Bicarbonate (Sodium Bicarbonate) 1,300 mg DAILY PO 03/25/20 09:00 03/30/20 11:41 DC 03/30/20 11:05 Tiotropium Thomas (Spiriva Handihaler) 1 inhalation DAILY@0800 INH 03/25/20 08:00 03/27/20 07:39 Tramadol HCl (Ultram) 50 mg Q6HP PRN PO MODERATE TO SEVERE PAIN 03/25/20 01:45 03/28/20 07:59 DC 03/28/20 06:07 Trimethobenzamide HCl (Tigan) 300 mg Q6HP PRN PO NAUSEA OR VOMITING 03/29/20 15:00 04/01/20 17:11 Trimethobenzamide HCl (Tigan) 300 mg Q8HP PRN PO NAUSEA 03/25/20 06:00 03/25/20 10:47 DC Ursodiol (Actigall) 300 mg BID PO 03/25/20 09:00 04/03/20 08:48 Allergies Coded Allergies: No Known Drug Allergies (Verified Allergy, Unknown, 01/06/19) Caterina Meek MD Apr 03, 2020 19:23
[2020-04-03 22:00] VITALS: BP 107/74
[2020-04-04] MEDS: MORPHINE 2 MG/ML 1ML VIAL (J2270) IV PRN ×3 (04:21→18:56)
[2020-04-04] MEDS: ONDANSETRON 4 MG ORAL DISINTEGRATING TAB PO SCH ×4 (05:41→22:50)
[2020-04-04 06:00] VITALS: BP 108/74
[2020-04-04 06:36] LABS: HEMOGLOBIN 11.7 g/dl (13.5-17.5); MEAN CORPUSCULAR HEMOGLOBIN 27.9 pg (27.0-33.0); MEAN CORPUSCULAR HGB CONC 31.6 g/dl (32.0-36.5); MEAN CORPUSCULAR VOLUME 88.3 fl (80.0-96.0); PLATELET COUNT, AUTOMATED 248 10^3/uL (150-450); RED BLOOD COUNT 4.19 10^6/uL (4.30-6.10); WHITE BLOOD COUNT 10.5 10^3/uL (4.0-10.0)
[2020-04-04 06:37] LABS: INR 2.42; PROTHROMBIN TIME 26.9 SECONDS (11.8-14.0)
[2020-04-04 06:57] LABS: ALBUMIN 1.9 GM/DL (3.2-5.2); ALT/SGPT < 6 U/L (12-78); BILIRUBIN,TOTAL 0.9 MG/DL (0.2-1.0); BLOOD UREA NITROGEN 63 MG/DL (7-18); CALCIUM LEVEL 8.5 MG/DL (8.5-10.1); CARBON DIOXIDE LEVEL 25 MEQ/L (21-32); CHLORIDE LEVEL 104 MEQ/L (98-107); CREATININE FOR GFR 3.62 MG/DL (0.70-1.30); GLUCOSE, FASTING 263 MG/DL (70-100); POTASSIUM SERUM 3.8 MEQ/L (3.5-5.1); SODIUM LEVEL 139 MEQ/L (136-145); TOTAL PROTEIN 6.1 GM/DL (6.4-8.2)
[2020-04-04] MEDS: TIOTROPIUM INHALER/CAPSULE (SPIRIVA) INH SCH (08:00)
[2020-04-04] MEDS: ursodioL 300 MG CAP PO SCH ×2 (08:49→22:53)
[2020-04-04] MEDS: CLOPIDOGREL 75 MG TAB PO SCH (08:49)
[2020-04-04] MEDS: CREON-12 CAPSULE PO SCH ×3 (08:49→17:16)
[2020-04-04] MEDS: LACTOBACILLUS ACIDOPHILUS CAP (BACID) PO SCH ×2 (08:49→17:16)
[2020-04-04] MEDS: HumaLOG INSULIN (NovoLOG) PER UNIT SC SCH ×4 (08:49→21:00)
[2020-04-04] MEDS: APIXABAN 5 MG TAB (ELIQUIS) PO SCH ×2 (08:50→22:50)
[2020-04-04] MEDS: FLUoxetine 20 MG CAP PO SCH (08:50)
[2020-04-04] MEDS: AMIODARONE 200 MG TAB (PACERONE) PO SCH ×2 (08:51→22:50)
[2020-04-04] MEDS: PANTOPRAZOLE 40MG VIAL (C9113 PER 1) IV SCH (08:51)
[2020-04-04] MEDS: CARVedilol 3.125 MG TAB PO SCH ×2 (08:51→22:51)
[2020-04-04 09:25] VITALS: BP 118/75
[2020-04-04 14:00] VITALS: BP 119/78
[2020-04-04 16:44] LABS: ABG BASE EXCESS 0.7 (-2.0-2.0); ABG O2 SATURATION 92.1 % (95.0-99.0); ABG PARTIAL PRESSURE CO2 38.9 mmHg (35.0-45.0); ABG TOTAL CO2 26.1 MEQ/L (22.0-29.0); ABG pH (ARTERIAL) 7.425 UNITS (7.350-7.450)
[2020-04-04] MEDS: ERTAPENEM SODIUM 0.5 GM in NS 50 ML IV SCH (17:14)
[2020-04-04] MEDS: POLYTRIM OPTH DROPS 10ML OU SCH ×2 (17:15→22:51)
[2020-04-04] MEDS: CHLORHEXIDINE GLUCONATE 0.12 % 15ML UDC (PERIDEX ORAL RINSE) SSP SCH ×2 (17:16→22:51)
--- NOTE | 2020-04-04 17:18 | IPNPDOC ---
Date Seen The patient was seen on 04/04/20. Progress Note SUBJECTIVE: Complains of "buring in eyes", + conjunctivitis. Starting abx eye drops today. Residuals up to >400; however, tube feedings restarted later. Confused today, ABG ordered. Discussed with him and fiance about palliative care due to poor PO intake, decline this admission and chronic pain- they agreed to discuss their services with a respresentative after the weekend. ABG, compensated but pO2 low, CXR ordered. He complains of chronic leg pain but denies chest pain, fevers, chills. OBJECTIVE: PHYSICAL EXAMINATION: VITAL SIGNS: Please see below. General: lethargic today, confused at times but oriented and alert at other. Not opening eyes talking to me. NAD, resting in bed, emaciated, appears ill HEENT: conjuntivitis bilaterally with yellow crust, anicteric sclerae, no nasal discharges, no throat exudates, no oral lesions, PERRL, EOM intact, dentures in place NECK: supple, no cervical tenderness, no bruit noted, no rigidity noted CHEST: clear breath sounds, equal chest expansion, no rales or wheezing CVS; s1 and s2 distinct, no murmurs audible note, no rubs, or thrills, GI: soft, positive normoactive bowel sounds,left upper quadrant tenderness, peg tube ; no rigidity , no guarding noted. left upper quadrant tenderness. colostomy bag RLQ EXTREMITIES: no limitation of ROM, left leg pain on palpation. no leg edema, no joint swelling, no calf tenderness, no atrophy [employer]; awake, alert, oriented x 3 CN II-XII grossly intact, no focal sensory or motor deficits PSYCH: no anxiety, comfortable, no hallucinations or delusions LABORATORY DATA, IMAGING STUDIES, MICROBIOLOGY: Please see below. CXR pending to be done. ASSESSMENT: 49 y/o M PMH of autoimmune pancreatitis admitted for acute on chronic pancreatitis, splenic collection (abscess? vs. seroma with hx of abscess 02/2020 s/p drainage). PLAN: 1. Altered mental status, intermittent possibly 2/2 to overall decline, failure to thrive vs. other etiology (possibly lung). More lethargic today, afebrile, WBC minimally elevated at 10.5, increased amount of O2 overtime since admission. Also on morphine so perhaps this is too strong for him? F/u CXR, ABG showed only hypoxia. Remains on abx for splenic collection. 2. Conjunctivitis with vision changes. Patient states his eyes started "burning" after addition of eye lubricant drops. Will start polymixin B/trimethoprim 6x/day starting today. If vision changes continue, consider ophthalmology consult. 3. Splenic collection, seroma and possibly abscess, history of perisplenic/splenic abscess 02/2020, underwent IR drain in [facility] on 02/23, with history of enterobacter species, on cipro and flagyl. Currently afebrile, WBC wnl. Prior hospitalist before me she had spoke with Dr. Palmer (ID) at [facility], and we do have the same record that the splenic collection was 7 cm largest diameter, and then 4 cm post IR drain there, and noted that on recent US it is 6.5cm, slightly larger. Agreed to have another IR drain previously; however, 04/01/20 refused drainage due to it being high risk with them needing to pass needle through pleural space. Per Dr. Kent (radiologist), this would put him at increased risk for empyema, pneumothorax. Discussed inability to proceed forward with drainaging with ID PA today at [facility]. C/w Ertapenem IV (what Enterobacter isolated previously was sensitive to in 02/2020), reimaging next week to see if splenic collection bigger and more accessible vs. going through the pleural space. When nausea has improved, can consider transitioning back to PO abx. Patient will have to remain on abx until splenic collection is resolved per ID. 4. Failure to thrive 2/2 to several acute on chronic issues, multiple recent hospitalizations. Decline this hospital stay. Family agreed to meet with palliative care after weekend. Poor oral intake, nausea likely 2/2 to acute infection/illness above. Residuals high today; however, later improved and resumed enteral feeding . Not eating from his diet ordered today but will c/w low fat diet, pancreatic enzymes with meals, free water flushes 160 mL Q4 hr through feeding tube if he can . zully ATC. Palliative care brought up with patient due to health decline, multiple hospitalizations and chronic pain and will consult after weekend. 4. MARTY on Chronic kidney disease stage III. 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 Hx of MARTY requiring dialysis in 2019. nephrology following. Avoid nephrotoxic medications aside from lasix, daily labs. 5. Acute on chronic pancreatitis. Hx of autoimmune pancreatitis. lipase, CMP improved. Abdominal pain improving; however, still requiring some morphine PRN. Poor intake, changing to low fat diet with pancreatic enzymes with meals. 6. Chronic systolic CHF, cardiomyopathy, CABG, s/p AICD. C/w lasix, other c ardiac meds. Stable. 7. Diabetes Mellitus type II. Stable. BS wnl. C/w ISS, AC/HS finger sticks, c onsistent carb diet. 8. Hx of CVA. C/w plavix, not on statin. 9. Hx of PE/DVT, DVT px. Eliquis BID DISPOSITION: For further questions concerning infection, splenic collection/abscess? can call ID clinic at [facility] as we do not have ID here this week. Discussed with fiance and patient about palliative care, consult placed. VS, I&O, 24H, Fishbone Vital Signs/I&O Vital Signs Date Time Temp Pulse Resp B/P (MAP) Pulse Ox O2 Delivery O2 Flow Rate FiO2 04/04/20 14:00 97.1 80 16 119/78 (92) 91 Nasal Cannula 3.0 I&O- Last 24 Hours up to 6 AM 04/04/20 06:00 Intake Total 1910 ml Output Total 1325 ml Balance 585 ml Laboratory Data 24H LABS Laboratory Tests 2 04/04/20 05:26: Nucleated Red Blood Cells % (auto) 0.2H, Prothrombin Time 26.9H, Prothromb Time International Ratio 2.42, Anion Gap 10, Glomerular Filtration Rate 19.0L, Calcium Level 8.5, Total Bilirubin 0.9, Aspartate Amino Transf (AST/SGOT) 11, Alanine Aminotransferase (ALT/SGPT) < 6L, Alkaline Phosphatase 123H, Total Protein 6.1L, Albumin 1.9L, Albumin/Globulin Ratio 0.5 04/04/20 16:27: Blood Gas Bicarbonate Standard 25.0, Arterial Blood pH 7.425, Arterial Blood Partial Pressure CO2 38.9, Arterial Blood Partial Pressure O2 64.0L, Arterial Blood Total CO2 26.1, Arterial Blood HCO3 25.0, Arterial Blood Base Excess 0.7, Arterial Blood Oxygen Saturation 92.1L CBC/BMP Laboratory Tests 04/04/20 05:26 Current Medications Current Medications Medications (Trade) Dose Ordered Sig/Harish Route PRN Reason Start Time Stop Time Status Last Admin Dose Admin Acetaminophen (Tylenol Tab) 650 mg Q4H PRN PO PAIN OR FEVER 03/24/20 21:30 03/25/20 01:32 DC Acetaminophen (Tylenol Tab) 1,000 mg TID PRN PO mild pain 03/25/20 01:45 Albuterol Sulfate (Proventil, Ventolin Hfa) 2 puff Q4HP PRN INH SHORTNESS OF BREATH 03/25/20 01:30 Albuterol/ Ipratropium (Duoneb (Ipr 0.5mg/Alb 2.5mg)) 3 ml Q2HP PRN NEB SOB/WHEEZING 03/25/20 06:30 Amiodarone HCl (Pacerone, Cordarone) 200 mg BID PO 03/25/20 09:00 04/04/20 08:51 Apixaban (Eliquis) 5 mg BID PO 03/25/20 09:00 03/28/20 13:54 DC 03/28/20 09:37 Apixaban (Eliquis) 5 mg BID PO 04/01/20 21:00 04/04/20 08:50 Artificial Tears (Akwa Tears) 2 drop Q4HP PRN OU DRY EYES 04/02/20 13:45 04/04/20 16:19 DC 04/03/20 05:47 Carvedilol (COReg) 3.125 mg BID PO 03/25/20 09:00 04/04/20 08:51 Chlorhexidine Gluconate (Peridex Oral Rinse) 15 ml TID SSP 04/04/20 16:00 Ciprofloxacin (Cipro) 500 mg DAILY PO 03/25/20 09:00 04/02/20 14:20 DC 04/02/20 08:49 Clopidogrel Bisulfate (PLAVix) 75 mg DAILY PO 03/25/20 09:00 04/01/20 17:17 DC 03/30/20 09:44 Clopidogrel Bisulfate (PLAVix) 75 mg DAILY PO 04/01/20 17:30 04/04/20 08:49 Dextrose (Dextrose 50%) 25 ml ASDIRECTED PRN IV SEE LABEL COMMENTS 03/24/20 21:30 03/27/20 16:04 DC Dextrose (Dextrose 50%) 25 ml ASDIRECTED PRN IV SEE LABEL COMMENTS 03/27/20 16:00 Dextrose (Dextrose 50%) 25 ml STAT STAT IV 03/29/20 09:38 03/29/20 09:40 DC 03/29/20 09:56 Dextrose/Sodium Chloride 1,000 ml @ 100 mls/hr Q10H IV 03/24/20 21:30 03/27/20 11:33 DC 03/27/20 11:09 Ertapenem 0.5 gm/ Sodium Chloride 50 ml @ 100 mls/hr Q24H IV 04/02/20 16:00 04/03/20 16:31 Ertapenem 0.5 gm/ Sodium Chloride 50 ml @ 100 mls/hr Q24H IV 04/02/20 16:00 Cancel Fluoxetine HCl (PROzac) 40 mg DAILY PO 03/25/20 09:00 04/04/20 08:50 Furosemide (LASIX injection) 60 mg Q8H IV 03/28/20 20:00 03/29/20 10:57 DC 03/29/20 04:50 Furosemide (LASIX injection) 80 mg Q8H IV 03/29/20 12:00 03/31/20 21:12 DC 03/31/20 12:52 Furosemide (Lasix) 40 mg BID PO 03/25/20 09:00 03/25/20 10:49 DC 03/25/20 08:45 Glucagon (Glucagon) 1 mg ASDIRECTED PRN SC SEE LABEL COMMENTS 03/24/20 21:30 03/27/20 16:04 DC Glucagon (Glucagon) 1 mg ASDIRECTED PRN SC SEE LABEL COMMENTS 03/27/20 16:00 Glucose (Glucose) 16 GM ASDIRECTED PRN PO SEE LABEL COMMENTS 03/24/20 21:30 03/27/20 16:04 DC Glucose (Glucose) 16 GM ASDIRECTED PRN PO SEE LABEL COMMENTS 03/27/20 16:00 Heparin Sodium (Porcine) (Heparin) 5,000 units Q8H SQ 03/31/20 16:30 04/01/20 00:00 DC 03/31/20 16:53 Home Med (Med Rec Complete!) ASDIRECTED XX 03/24/20 21:00 03/24/20 21:01 DC Insulin Human Lispro (HumaLOG INSULIN) SEE PROTOCOL TABLE Q6H SC 03/25/20 00:00 03/27/20 14:06 DC 03/27/20 05:48 Insulin Human Lispro (HumaLOG INSULIN) See Protocol Table AC SC 03/27/20 17:30 04/04/20 12:02 Insulin Human Lispro (HumaLOG INSULIN) See Protocol Table QHS CO 03/27/20 21:00 Insulin Human Regular (HumuLIN R INSULIN) 10 units STAT STAT IV 03/29/20 09:38 03/29/20 09:40 DC 03/29/20 09:57 Lactobacillus Acidophilus (Bacid) 1 ea BIDWM PO 04/01/20 18:00 04/04/20 08:49 Metronidazole (Flagyl) 500 mg Q8H PO 03/25/20 06:00 04/02/20 14:20 DC 04/02/20 14:10 Morphine Sulfate (Morphine Sulfate Inj) 1 mg Q6H PRN IV SEVERE PAIN (PS 8-10) 03/31/20 16:15 04/04/20 12:01 Morphine Sulfate (Morphine Sulfate Inj) 2 mg Q3H PRN IV SEVERE PAIN (PS 8-10) 03/25/20 10:45 03/31/20 16:18 DC 03/31/20 13:38 Nitroglycerin (Nitrostat (1/ 150)) 0.4 mg Q5MP PRN SL CHEST PAIN 03/25/20 01:30 Ondansetron HCl (ZOFRAN INJection) 4 mg Q6HP PRN IV NAUSEA OR VOMITING 03/25/20 16:30 04/02/20 11:04 DC 04/02/20 10:51 Ondansetron HCl (Zofran Odt) 4 mg Q6H PO 04/02/20 17:00 04/04/20 11:59 Ondansetron HCl (Zofran) 4 mg Q8H PRN PO NAUSEA 03/25/20 01:30 03/25/20 06:26 DC Oxycodone/ Acetaminophen (Percocet 5mg/ 325mg Tablet) 1 tab Q4HP PRN PO MILD/MODERATE PAIN (PS 1-7) 04/02/20 15:00 Oxycodone/ Acetaminophen (Percocet 5mg/ 325mg Tablet) 1 tab Q6HP PRN PO MILD/MODERATE PAIN (PS 1-7) 03/28/20 08:00 04/02/20 11:04 DC 04/02/20 10:52 Pancrelipase (Creon-12) 1 ea WM PO 04/03/20 08:00 04/04/20 12:00 Pantoprazole Sodium (Protonix) 40 mg DAILY PO 03/25/20 09:00 03/25/20 16:25 DC 03/25/20 08:44 Pantoprazole Sodium (Protonix) 40 mg Q24H IV 03/26/20 09:00 04/04/20 08:51 Polymyxin/ Trimethoprim Sulfate (Polytrim Ophth Drops) 1 drop 6XD OU 04/04/20 18:00 04/13/20 17:59 Sodium Bicarbonate (Sodium Bicarbonate) 1,300 mg DAILY PO 03/25/20 09:00 03/30/20 11:41 DC 03/30/20 11:05 Tiotropium Presto (Spiriva Handihaler) 1 inhalation DAILY@0800 INH 03/25/20 08:00 03/27/20 07:39 Tramadol HCl (Ultram) 50 mg Q6HP PRN PO MODERATE TO SEVERE PAIN 03/25/20 01:45 03/28/20 07:59 DC 03/28/20 06:07 Trimethobenzamide HCl (Tigan) 300 mg Q6HP PRN PO NAUSEA OR VOMITING 03/29/20 15:00 04/01/20 17:11 Trimethobenzamide HCl (Tigan) 300 mg Q8HP PRN PO NAUSEA 03/25/20 06:00 03/25/20 10:47 DC Ursodiol (Actigall) 300 mg BID PO 03/25/20 09:00 04/04/20 08:49 Allergies Coded Allergies: No Known Drug Allergies (Verified Allergy, Unknown, 01/06/19) Caterina Meek MD Apr 04, 2020 17:18
[2020-04-04 22:00] VITALS: BP 121/79
[2020-04-05] MEDS: POLYTRIM OPTH DROPS 10ML OU SCH ×6 (05:54→20:46)
[2020-04-05] MEDS: ONDANSETRON 4 MG ORAL DISINTEGRATING TAB PO SCH ×4 (05:54→23:00)
[2020-04-05 06:00] VITALS: BP 123/81
[2020-04-05 07:29] LABS: HEMATOCRIT 38.2 % (42.0-52.0); HEMOGLOBIN 12.2 g/dl (13.5-17.5); MEAN CORPUSCULAR HEMOGLOBIN 28.3 pg (27.0-33.0); MEAN CORPUSCULAR HGB CONC 31.9 g/dl (32.0-36.5); MEAN CORPUSCULAR VOLUME 88.6 fl (80.0-96.0); PLATELET COUNT, AUTOMATED 264 10^3/uL (150-450); RED BLOOD COUNT 4.31 10^6/uL (4.30-6.10); WHITE BLOOD COUNT 10.9 10^3/uL (4.0-10.0)
[2020-04-05 07:40] LABS: INR 2.03; PROTHROMBIN TIME 23.4 SECONDS (11.8-14.0)
[2020-04-05 07:51] LABS: ALBUMIN 1.9 GM/DL (3.2-5.2); ALT/SGPT < 6 U/L (12-78); BILIRUBIN,TOTAL 0.8 MG/DL (0.2-1.0); BLOOD UREA NITROGEN 64 MG/DL (7-18); CALCIUM LEVEL 8.6 MG/DL (8.5-10.1); CARBON DIOXIDE LEVEL 25 MEQ/L (21-32); CHLORIDE LEVEL 105 MEQ/L (98-107); GLOMERULAR FILTRATION RATE 20.4 (>56); GLUCOSE, FASTING 192 MG/DL (70-100); POTASSIUM SERUM 3.7 MEQ/L (3.5-5.1); SODIUM LEVEL 140 MEQ/L (136-145); TOTAL PROTEIN 6.4 GM/DL (6.4-8.2)
[2020-04-05] MEDS: TIOTROPIUM INHALER/CAPSULE (SPIRIVA) INH SCH (07:55)
[2020-04-05] MEDS: LACTOBACILLUS ACIDOPHILUS CAP (BACID) PO SCH ×2 (10:16→17:26)
[2020-04-05] MEDS: CHLORHEXIDINE GLUCONATE 0.12 % 15ML UDC (PERIDEX ORAL RINSE) SSP SCH ×3 (10:16→20:45)
[2020-04-05] MEDS: ursodioL 300 MG CAP PO SCH ×2 (10:17→20:45)
[2020-04-05] MEDS: CREON-12 CAPSULE PO SCH ×3 (10:17→17:26)
[2020-04-05] MEDS: CARVedilol 3.125 MG TAB PO SCH ×2 (10:17→20:46)
[2020-04-05] MEDS: CLOPIDOGREL 75 MG TAB PO SCH (10:18)
[2020-04-05] MEDS: PANTOPRAZOLE 40MG VIAL (C9113 PER 1) IV SCH (10:18)
[2020-04-05] MEDS: AMIODARONE 200 MG TAB (PACERONE) PO SCH ×2 (10:18→20:45)
[2020-04-05] MEDS: FLUoxetine 20 MG CAP PO SCH (10:18)
[2020-04-05] MEDS: APIXABAN 5 MG TAB (ELIQUIS) PO SCH ×2 (10:18→20:45)
[2020-04-05] MEDS: HumaLOG INSULIN (NovoLOG) PER UNIT SC SCH ×4 (10:28→20:46)
[2020-04-05] MEDS ORDERED: D5W/0.45% SODIUM CHLORIDE 1,000 ML IV SCH (12:30)
[2020-04-05 14:00] VITALS: BP 120/79
[2020-04-05] MEDS: MORPHINE 2 MG/ML 1ML VIAL (J2270) IV PRN ×2 (14:40→23:50)
[2020-04-05] MEDS: ERTAPENEM SODIUM 0.5 GM in NS 50 ML IV SCH (16:12)
--- NOTE | 2020-04-05 17:20 | IPNPDOC ---
Date Seen The patient was seen on 04/05/20. Progress Note SUBJECTIVE: States that "buring in eyes" is a bit better today, lethargic. CXR: b/l PNA, opacities, CT chest: CM with significant CHF, b/l infiltrates, GG opacities and effusion, L>R, upper abdominal ascities, mesenteric stranding, small known splenic abscess. Residuals up to >400, discussed with general surgery who suggested consulting IR for G to J conversion- consult is in and will discuss with Dr. Doherty in the AM. Tube feedings stopped. Abx broadened to include levofloxacin, ordering STAT lactic acid, sputum culture, blood cultures, troponin, BNP. Again he complains of occasional cough, chronic leg pain but denies chest pain, fevers, chills. OBJECTIVE: PHYSICAL EXAMINATION: VITAL SIGNS: Please see below. General: lethargic, following commands this AM and opening eyes for me. NAD, resting in bed, emaciated, appears ill HEENT: conjuntivitis bilaterally with yellow crust, anicteric sclerae, no nasal discharges, no throat exudates, no oral lesions, PERRL, EOM intact, dentures in place NECK: supple, no cervical tenderness, no bruit noted, no rigidity noted CHEST: crackles bilateral lower lung patterson, no rhonchi or rales CVS; s1 and s2 distinct, no murmurs audible note, no rubs, or thrills, GI: soft, positive normoactive bowel sounds,left upper quadrant tenderness, peg tube ; no rigidity , no guarding noted. left upper quadrant tenderness. colostomy bag RLQ EXTREMITIES: no limitation of ROM, left leg pain on palpation. 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 CXR: b/l PNA, opacities, CT chest: CM with significant CHF, b/l infiltrates, GG opacities and effusion, L>R, upper abdominal ascites, mesenteric stranding, small known splenic abscess ASSESSMENT: 49 y/o M PMH of autoimmune pancreatitis admitted for acute on c hronic pancreatitis, splenic collection (abscess? vs. seroma with hx of abscess 02/2020 s/p drainage). PLAN: 1. Altered mental status, intermittent possibly 2/2 to overall decline, failure to thrive and health care associated PNA. lethargic still today, afebrile, WBC minimally elevated at 10.9, increased amount of O2 overtime since admission. Unlikely morphine being too strong. See individual treatment plans for issues below. 2. Bilateral health care associated pneumonia. Could be responsible for decline we have been seening, increased lethargy. WBC 10.9, afebrile, cough with increasing O2 demand. CT chest, CXR above. On ertapenem, adding levofloxacin. If MRSA +, add Vancomycin also. F/u MRSA culture, sputum culture, blood cultures x 2, acapella Q2 hrs while awake 3. Cardiomegaly with CHF seen on CT chest above. PMH of chronic systolic CHF, cardiomyopathy, CABG, s/p AICD. No significant signs of fluid overload;however, . F/u BNP, troponin. He denies chest pain currently. He was on furosemide BID before admission here; however has not been on this medication since admission due to worsening renal failure. If BNP markedly elevated, will discuss with nephrology what needs to occur for diuresis. For now, c/w BB, other cardiac meds. 4. Conjunctivitis with vision changes. Patient states his eyes started "burning" after addition of eye lubricant drops, slightly improved since yesterday per patient. Day 2 of polymixin B/trimethoprim 6x/day starting today. F/u eye culture. Ophthalmology not available 5. Splenic collection, seroma and possibly abscess, history of perispleni c/splenic abscess 02/2020, underwent IR drain in [facility] on 02/23, with history of enterobacter species, on cipro and flagyl. Currently afebrile, WBC wnl. Prior hospitalist before me she had spoke with Dr. Palmer (ID) at [facility], and we do have the same record that the splenic collection was 7 cm largest diameter, and then 4 cm post IR drain there, and noted that on recent US it is 6.5cm, slightly larger. Agreed to have another IR drain previously; however, 04/01/20 refused drainage due to it being high risk with them needing to pass needle through pleural space. Per Dr. Kent (radiologist), this would put him at increased risk for empyema, pneumothorax. Discussed inability to proceed forward with drainaging with ID PA today at [facility]. C/w Ertapenem IV (what Enterobacter isolated previously was sensitive to in 02/2020), reimaging next week to see if splenic collection bigger and more accessible vs. going through the pleural space. When nausea has improved, can consider transitioning back to PO abx. Patient will have to remain on abx until splenic collection is resolved per ID. 6. Failure to thrive 2/2 to several acute on chronic issues, multiple recent hospitalizations. Decline this hospital stay. Family agreed to meet with palliative care after weekend. Poor oral intake, nausea likely 2/2 to acute infection/illness above. Residuals high today, had to stop tube feedings. Discussed with surgery and suggested IR to do G to J tube conversion. IR co nsulted and will discuss with IR in AM. Not eating from his diet ordered today but will c/w low fat diet, pancreatic enzymes with meals. Encouraging fluids Q2 hrs. Zofran ATC. Palliative care brought up with patient due to health decline, multiple hospitalizations and chronic pain and will consult after weekend. 7. MARTY on Chronic kidney disease stage III. 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 Hx of MARTY requiring dialysis in 2019. nephrology following. Avoid nephrotoxic medications aside from lasix, daily labs. 8. Acute on chronic pancreatitis. Hx of autoimmune pancreatitis. lipase, CMP improved. Abdominal pain improving; however, still requiring some morphine PRN. Poor intake, changing to low fat diet with pancreatic enzymes with meals. 9. Diabetes Mellitus type II. Stable. BS wnl. C/w ISS, AC/HS finger sticks, consistent carb diet. 10. Hx of CVA. C/w plavix, not on statin. 11. Hx of PE/DVT, DVT px. Eliquis BID DISPOSITION: For further questions concerning infection, splenic co llection/abscess? can call ID clinic at [facility] as we do not have ID here this week. TB with IR about G to J tube conversion and possible nephrology in the AM. Palliative care care consulted. VS, I&O, 24H, Fishbone Vital Signs/I&O Vital Signs Date Time Temp Pulse Resp B/P (MAP) Pulse Ox O2 Delivery O2 Flow Rate FiO2 04/05/20 14:50 18 94 Nasal Cannula 04/05/20 14:00 97.7 76 120/79 (93) 2.0 I&O- Last 24 Hours up to 6 AM 04/05/20 06:00 Intake Total 2210 ml Output Total 1350 ml Balance 860 ml Laboratory Data 24H LABS Laboratory Tests 2 04/05/20 05:50: Nucleated Red Blood Cells % (auto) 0.0, Prothrombin Time 23.4H, Prothromb Time International Ratio 2.03, Anion Gap 10, Glomerular Filtration Rate 20.4L, Calcium Level 8.6, Total Bilirubin 0.8, Aspartate Amino Transf (AST/SGOT) 12, Alanine Aminotransferase (ALT/SGPT) < 6L, Alkaline Phosphatase 141H, Total Protein 6.4, Albumin 1.9L, Albumin/Globulin Ratio 0.4 CBC/BMP Laboratory Tests 04/05/20 05:50 Current Medications Current Medications Medications (Trade) Dose Ordered Sig/Harish Route PRN Reason Start Time Stop Time Status Last Admin Dose Admin Acetaminophen (Tylenol Tab) 650 mg Q4H PRN PO PAIN OR FEVER 03/24/20 21:30 03/25/20 01:32 DC Acetaminophen (Tylenol Tab) 1,000 mg TID PRN PO mild pain 03/25/20 01:45 Albuterol Sulfate (Proventil, Ventolin Hfa) 2 puff Q4HP PRN INH SHORTNESS OF BREATH 03/25/20 01:30 Albuterol/ Ipratropium (Duoneb (Ipr 0.5mg/Alb 2.5mg)) 3 ml Q2HP PRN NEB SOB/WHEEZING 03/25/20 06:30 Amiodarone HCl (Pacerone, Cordarone) 200 mg BID PO 03/25/20 09:00 04/05/20 10:18 Apixaban (Eliquis) 5 mg BID PO 03/25/20 09:00 03/28/20 13:54 DC 03/28/20 09:37 Apixaban (Eliquis) 5 mg BID PO 04/01/20 21:00 04/05/20 10:18 Artificial Tears (Akwa Tears) 2 drop Q4HP PRN OU DRY EYES 04/02/20 13:45 04/04/20 16:19 DC 04/03/20 05:47 Carvedilol (COReg) 3.125 mg BID PO 03/25/20 09:00 04/05/20 10:17 Chlorhexidine Gluconate (Peridex Oral Rinse) 15 ml TID SSP 04/04/20 16:00 04/05/20 16:12 Ciprofloxacin (Cipro) 500 mg DAILY PO 03/25/20 09:00 04/02/20 14:20 DC 04/02/20 08:49 Clopidogrel Bisulfate (PLAVix) 75 mg DAILY PO 03/25/20 09:00 04/01/20 17:17 DC 03/30/20 09:44 Clopidogrel Bisulfate (PLAVix) 75 mg DAILY PO 04/01/20 17:30 04/05/20 10:18 Dextrose (Dextrose 50%) 25 ml ASDIRECTED PRN IV SEE LABEL COMMENTS 03/24/20 21:30 03/27/20 16:04 DC Dextrose (Dextrose 50%) 25 ml ASDIRECTED PRN IV SEE LABEL COMMENTS 03/27/20 16:00 Dextrose (Dextrose 50%) 25 ml STAT STAT IV 03/29/20 09:38 03/29/20 09:40 DC 03/29/20 09:56 Dextrose/Sodium Chloride 1,000 ml @ 50 mls/hr Q20H IV 04/05/20 12:30 04/07/20 04:29 04/05/20 12:49 Dextrose/Sodium Chloride 1,000 ml @ 100 mls/hr Q10H IV 03/24/20 21:30 03/27/20 11:33 DC 03/27/20 11:09 Ertapenem 0.5 gm/ Sodium Chloride 50 ml @ 100 mls/hr Q24H IV 04/02/20 16:00 04/05/20 16:12 Ertapenem 0.5 gm/ Sodium Chloride 50 ml @ 100 mls/hr Q24H IV 04/02/20 16:00 Cancel Fluoxetine HCl (PROzac) 40 mg DAILY PO 03/25/20 09:00 04/05/20 10:18 Furosemide (LASIX injection) 60 mg Q8H IV 03/28/20 20:00 03/29/20 10:57 DC 03/29/20 04:50 Furosemide (LASIX injection) 80 mg Q8H IV 03/29/20 12:00 03/31/20 21:12 DC 03/31/20 12:52 Furosemide (Lasix) 40 mg BID PO 03/25/20 09:00 03/25/20 10:49 DC 03/25/20 08:45 Glucagon (Glucagon) 1 mg ASDIRECTED PRN SC SEE LABEL COMMENTS 03/24/20 21:30 03/27/20 16:04 DC Glucagon (Glucagon) 1 mg ASDIRECTED PRN SC SEE LABEL COMMENTS 03/27/20 16:00 Glucose (Glucose) 16 GM ASDIRECTED PRN PO SEE LABEL COMMENTS 03/24/20 21:30 03/27/20 16:04 DC Glucose (Glucose) 16 GM ASDIRECTED PRN PO SEE LABEL COMMENTS 03/27/20 16:00 Heparin Sodium (Porcine) (Heparin) 5,000 units Q8H SQ 03/31/20 16:30 04/01/20 00:00 DC 03/31/20 16:53 Home Med (Med Rec Complete!) ASDIRECTED XX 03/24/20 21:00 03/24/20 21:01 DC Insulin Human Lispro (HumaLOG INSULIN) SEE PROTOCOL TABLE Q6H SC 03/25/20 00:00 03/27/20 14:06 DC 03/27/20 05:48 Insulin Human Lispro (HumaLOG INSULIN) See Protocol Table AC SC 03/27/20 17:30 04/05/20 12:48 Insulin Human Lispro (HumaLOG INSULIN) See Protocol Table QHS SC 03/27/20 21:00 Insulin Human Regular (HumuLIN R INSULIN) 10 units STAT STAT IV 03/29/20 09:38 03/29/20 09:40 DC 03/29/20 09:57 Lactobacillus Acidophilus (Bacid) 1 ea BIDWM PO 04/01/20 18:00 04/05/20 10:16 Metronidazole (Flagyl) 500 mg Q8H PO 03/25/20 06:00 04/02/20 14:20 DC 04/02/20 14:10 Morphine Sulfate (Morphine Sulfate Inj) 1 mg Q6H PRN IV SEVERE PAIN (PS 8-10) 03/31/20 16:15 04/05/20 14:40 Morphine Sulfate (Morphine Sulfate Inj) 2 mg Q3H PRN IV SEVERE PAIN (PS 8-10) 03/25/20 10:45 03/31/20 16:18 DC 03/31/20 13:38 Nitroglycerin (Nitrostat (1/ 150)) 0.4 mg Q5MP PRN SL CHEST PAIN 03/25/20 01:30 Ondansetron HCl (ZOFRAN INJection) 4 mg Q6HP PRN IV NAUSEA OR VOMITING 03/25/20 16:30 04/02/20 11:04 DC 04/02/20 10:51 Ondansetron HCl (Zofran Odt) 4 mg Q6H PO 04/02/20 17:00 04/05/20 10:17 Ondansetron HCl (Zofran) 4 mg Q8H PRN PO NAUSEA 03/25/20 01:30 03/25/20 06:26 DC Oxycodone/ Acetaminophen (Percocet 5mg/ 325mg Tablet) 1 tab Q4HP PRN PO MILD/MODERATE PAIN (PS 1-7) 04/02/20 15:00 Oxycodone/ Acetaminophen (Percocet 5mg/ 325mg Tablet) 1 tab Q6HP PRN PO MILD/MODERATE PAIN (PS 1-7) 03/28/20 08:00 04/02/20 11:04 DC 04/02/20 10:52 Pancrelipase (Creon-12) 1 ea WM PO 04/03/20 08:00 04/05/20 12:48 Pantoprazole Sodium (Protonix) 40 mg DAILY PO 03/25/20 09:00 03/25/20 16:25 DC 03/25/20 08:44 Pantoprazole Sodium (Protonix) 40 mg Q24H IV 03/26/20 09:00 04/05/20 10:18 Polymyxin/ Trimethoprim Sulfate (Polytrim Ophth Drops) 1 drop 6XD OU 04/04/20 18:00 04/13/20 17:59 04/05/20 14:40 Sodium Bicarbonate (Sodium Bicarbonate) 1,300 mg DAILY PO 03/25/20 09:00 03/30/20 11:41 DC 03/30/20 11:05 Tiotropium Hensley (Spiriva Handihaler) 1 inhalation DAILY@0800 INH 03/25/20 08:00 03/27/20 07:39 Tramadol HCl (Ultram) 50 mg Q6HP PRN PO MODERATE TO SEVERE PAIN 03/25/20 01:45 03/28/20 07:59 DC 03/28/20 06:07 Trimethobenzamide HCl (Tigan) 300 mg Q6HP PRN PO NAUSEA OR VOMITING 03/29/20 15:00 04/01/20 17:11 Trimethobenzamide HCl (Tigan) 300 mg Q8HP PRN PO NAUSEA 03/25/20 06:00 03/25/20 10:47 DC Ursodiol (Actigall) 300 mg BID PO 03/25/20 09:00 04/05/20 10:17 Allergies Coded Allergies: No Known Drug Allergies (Verified Allergy, Unknown, 01/06/19) Caterina Meek MD Apr 05, 2020 17:20
[2020-04-05] MEDS ORDERED: LevoFLOXacin IV 500 MG in IV 1 EA IV ONE (18:00)
[2020-04-05 18:15] LABS: NT-PRO BNP 158759 PG/ML (<125); TROPONIN I < 0.02 NG/ML (< 0.10)
--- NOTE | 2020-04-05 19:29 | REPVR ---
PROCEDURE INFORMATION: Exam: CT Abdomen And Pelvis Without Contrast Exam date and time: 04/05/2020 6:46 PM Age: 49 years old Clinical indication: Bloating; Abdominal pain; Generalized; Additional info: Abdominal distention TECHNIQUE: Imaging protocol: Computed tomography of the abdomen and pelvis without contrast. Radiation optimization: All CT scans at this facility use at least one of these dose optimization techniques: automated exposure control; mA and/or kV adjustment per patient size (includes targeted exams where dose is matched to clinical indication); or iterative reconstruction. COMPARISON: CT SCAN CHEST WITHOUT CONTRAST 04/05/2020 9:22 A.M.; CT ABD/PELVIS W/O CONTRAST 12/06/2019 5:45 PM FINDINGS: Tubes, catheters and devices: Percutaneous gastrostomy tube present with balloon tip in the gastric cavity. Lungs: Multifocal patchy and ground-glass opacities within both lung bases with prominent reticular markings, unchanged. Right lower lobe consolidation and left lower lobe atelectasis/consolidation, similar to the previous study. Pleural space: Moderate left pleural effusion. Small right pleural effusion. Heart: Mild cardiomegaly. Dual lead cardiac pacer/IACD with lead tips in the right atrium and right ventricle. Liver: Unremarkable. No mass. Gallbladder and bile ducts: Findings suspicious for calcified stone and sludge within the gallbladder. Pancreas: Unremarkable. No ductal dilation. Spleen: Low-density collection (likely splenic subcapsular collection) measuring approximately 5 cm by 3.5 cm x 2.0 cm within the left upper quadrant, unchanged compared to the previous CT scan of the chest. Adrenals: Normal. No mass. Kidneys and ureters: Nonobstructing punctate stones in the left kidney midpole. No left hydronephrosis. Unremarkable right kidney and right ureter. Stomach and bowel: Status post partial colectomy with right colostomy, unchanged. No parastomal hernia or bowel obstruction. Appendix: No evidence of appendicitis. Intraperitoneal space: Small abdominal and pelvic ascites. Vasculature: Moderate atherosclerosis of the abdominal aorta and branch vessels. No abdominal aortic aneurysm. Lymph nodes: No enlarged lymph nodes. Bladder: Unremarkable as visualized. Reproductive: Unremarkable as visualized. Bones/joints: No acute fracture. Soft tissues: Anasarca. IMPRESSION: 1. Extensive bilateral lung disease, unchanged. 2. Bilateral pleural effusions, unchanged. 3. Left upper quadrant/splenic subcapsular low-density collection, unchanged. 4. Small abdominal and pelvic ascites. 5. Gastrostomy tube present with tip in the gastric cavity. Electronically signed by: Speedy Carter On 04/05/2020 19:28:29 PM
[2020-04-05 22:00] VITALS: BP 121/81
[2020-04-06] MEDS: ONDANSETRON 4 MG ORAL DISINTEGRATING TAB PO SCH ×4 (05:00→23:00)
[2020-04-06] MEDS: POLYTRIM OPTH DROPS 10ML OU SCH ×6 (05:14→20:05)
[2020-04-06 06:00] VITALS: BP 121/81
[2020-04-06 06:08] LABS: HEMATOCRIT 37.6 % (42.0-52.0); HEMOGLOBIN 11.8 g/dl (13.5-17.5); MEAN CORPUSCULAR HEMOGLOBIN 27.9 pg (27.0-33.0); MEAN CORPUSCULAR HGB CONC 31.4 g/dl (32.0-36.5); MEAN CORPUSCULAR VOLUME 88.9 fl (80.0-96.0); PLATELET COUNT, AUTOMATED 254 10^3/uL (150-450); RED BLOOD COUNT 4.23 10^6/uL (4.30-6.10); WHITE BLOOD COUNT 10.6 10^3/uL (4.0-10.0)
[2020-04-06 06:26] LABS: ALBUMIN 1.8 GM/DL (3.2-5.2); ALT/SGPT < 6 U/L (12-78); BLOOD UREA NITROGEN 63 MG/DL (7-18); CALCIUM LEVEL 8.5 MG/DL (8.5-10.1); CARBON DIOXIDE LEVEL 24 MEQ/L (21-32); CHLORIDE LEVEL 107 MEQ/L (98-107); CREATININE FOR GFR 3.03 MG/DL (0.70-1.30); GLOMERULAR FILTRATION RATE 23.3 (>56); GLUCOSE, FASTING 132 MG/DL (70-100); POTASSIUM SERUM 3.8 MEQ/L (3.5-5.1); SODIUM LEVEL 140 MEQ/L (136-145); TOTAL PROTEIN 6.2 GM/DL (6.4-8.2)
[2020-04-06] MEDS: MORPHINE 2 MG/ML 1ML VIAL (J2270) IV PRN ×2 (06:49→17:13)
[2020-04-06] MEDS: TIOTROPIUM INHALER/CAPSULE (SPIRIVA) INH SCH (07:42)
[2020-04-06] MEDS ORDERED: FUROSEMIDE 40MG/4ML VIAL (J1940) IV ONE (08:00)
[2020-04-06] MEDS: PANTOPRAZOLE 40MG VIAL (C9113 PER 1) IV SCH (09:55)
[2020-04-06] MEDS: CLOPIDOGREL 75 MG TAB PO SCH (09:56)
[2020-04-06] MEDS: ursodioL 300 MG CAP PO SCH ×2 (09:56→20:05)
[2020-04-06] MEDS: AMIODARONE 200 MG TAB (PACERONE) PO SCH ×2 (09:56→20:05)
[2020-04-06] MEDS: CREON-12 CAPSULE PO SCH ×3 (09:57→18:22)
[2020-04-06] MEDS: APIXABAN 5 MG TAB (ELIQUIS) PO SCH ×2 (09:57→20:05)
[2020-04-06] MEDS: LACTOBACILLUS ACIDOPHILUS CAP (BACID) PO SCH ×2 (09:57→18:22)
[2020-04-06] MEDS: FLUoxetine 20 MG CAP PO SCH (09:57)
[2020-04-06] MEDS: CARVedilol 3.125 MG TAB PO SCH ×2 (09:57→20:07)
[2020-04-06] MEDS: HumaLOG INSULIN (NovoLOG) PER UNIT SC SCH ×4 (10:10→21:00)
[2020-04-06] MEDS: CHLORHEXIDINE GLUCONATE 0.12 % 15ML UDC (PERIDEX ORAL RINSE) SSP SCH ×3 (10:11→20:05)
[2020-04-06] MEDS ORDERED: VANCOMYCIN HCL 500 MG in D5W MINI-BAG PLUS 100 ML IV ONE (13:00)
[2020-04-06] MEDS: VANCOMYCIN HCL 1,000 MG, VIAL MATE ADAPTER 1 EACH in D5W 250 ML IV SCH (13:06)
[2020-04-06 14:00] VITALS: BP 113/71
--- NOTE | 2020-04-06 16:17 | CR.PDOC ---
General Date of Consultation: Apr 06, 2020 Referring Provider: Caterina Meek MD Primary Care Physician: Ilana Garner Consultation REASON FOR CONSULTATION/CHIEF COMPLAINT: 49 year old male with left sided pain related to splenic abcess and pancreatitis. He has comorbid cardiomyopathy, systolic CHF, CKD stage 3. I was asked to see him for recommendations regarding pain management and clarification of goals of caer. HISTORY OF PRESENT ILLNESS: His fiance Tram gave most of the details of Trever's medical history. She reported he was admitted here in 2017 and actually coded in the ICU; was revived. He has had CVA and has some difficulty with aphasia. He had a pacemaker defibrillator that had to be removed December 2018 after he developed infection (? 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 Jorge at [facility] and they were told the pathology was negative for any malignancy. Prior to this admission, Tram stated he needed help rising from a seated position but was able to ambulate using his rollator. He came to the hospital most recently due to left sided abdominal pain and was found to have bilateral pneumonia. He has a G tube which was used to give him tube feedings however these have had to be stopped due to high residuals. He has an ileostomy which was done during an admission at [facility] in [place] when they drained a splenic abcess and it was found the tissue around his colostomy was infected according to Tram. Trever is currently a full code, his HCP is Tram's sister, Chrissy Cousins. Tram stated Trever ios "a fighter" and stated she has talked with him before about making the focus of his care comfort rather than aggressive treatment but he has declined this stating he wants to fight to live. His goal at this point is to get well enough to go home to be with Tram and their dog. ALLERGIES: Please see below. HOME MEDICATIONS: Please see below. PAST MEDICAL HISTORY: 1. pancreatitis 2. splenic abcess 3. pressure wound left foot 4. stricture in colon? s/p ostomy 5. sysolic heart failure 6. cardiomyopathy 7. history of CVA 8. CKD stage 3 9. failure to thrive 8. pneumonia 9. DM 10. chronic nausea/emesis PAST SURGICAL HISTORY: 1. pacemaker/defibrillator, removed 12/2018 replaced 09/2019 2. colostomy 3. ileostomy 4. drain to spleen 5. gastrostomy SOCIAL HISTORY: Marital status and/or living arrangements: single, lives with SO of past 12 years Children: Employment: Tobacco use:former ETOH:former use Illicit drug use: no IV drug use: no REVIEW OF SYSTEMS: CONSTITUTIONAL: extreme faitgue and weakness. Denies fevers, chills HEENT: conjunctivitis CARDIOVASCULAR: pacemaker, history of chest pain RESPIRATORY: +dyspnea, denies wheezing GENITOURINARY: denies dysuria MUSCULOSKELETAL: pain left heel from pressure ulcer GASTROINTESTINAL: iliostomy, functioning well SKIN: pressure ulcers left heel NEUROLOGICAL: aphasia but able to make needs known and answer questions. Sedated PSYCHIATRIC: denies SI/HI, denies depression or anxiety ENDOCRINE: DM on insulin SS. HEMATOLOGIC/LYMPHATIC: easy bruising ALLERGIC/IMMUNOLOGIC: question of autoimmune pancreatitis PHYSICAL EXAMINATION: VITAL SIGNS: Please see below. GENERAL APPEARANCE: cachectic, sedated, laying in bed in no distress, able to answer my questions with some effort HEENT: mucous membranes tacky, dentures RESPIRATORY: poor air movement in bilateral bases CARDIOVASCULAR: [paced beats with occasional PVC ABDOMEN: scaphoid. Hypoactive BS. Ileostomy functioning, liquid brown stool EXTREMITIES: no C/C/E. Dressing intact left heel NEUROLOGICAL: sedated, arousable, appears to understand questions, takes some time to respond PSYCHIATRIC: blunted affect LABORATORY DATA: Please see below. ASSESSMENT/PLAN: 1. Goals of care: Tram stated at this point she feels his comfort is the main issue, however, in the next breath makes it clear he wants everything done should his heart stop beating and if he stops breathing, he would want to go on a ventilator. I gave her "5 Wishes" to review with Dae when he is more alert and to share with her sister who is his HCP. 2. Pain: he has pain on his left abdomen and also has pain on his left heel. I discussed with Tram given his renal disease, there are some limitations on what could be used to manage his pain. He is currently receiving morphine 1 mg IV prn and has Percoet 5/325 mg po q4hr prn. She expressed that she feels he would be better with the IV opiate since he has so much trouble with nausea. I explained that side effects like nausea, constipation, sedation, etc would exist whether he received his pain medication via IV or orally, but the nice thing about oral medication is although the onset is slower, it typically will last longer than IV medication. She appeared to understand this. I told her my recommendation would be to either optimize his Percoet dose to 7.5 or 10 mg po q4 hr prn, or change him to hydromorphone 1-2 mg po q4hr prn. His morphine IV dose could also be changed to hydromorphone, and I would suggest the IV dose of hydromorphone would be 0.3 to 0.5 mg q4hr prn breakthrough pain. 3. failure to thrive: I do not think Dae has long to live. I am hoping to help Tram understand if it is important for him to be home with her and their dog, perhaps the time has come for them to consider hospice as an option. I did not discuss this with her today as she was quite focused on his previously expressed desire to continue to fight for his life. Vital Signs/I&O Vital Signs Date Time Temp Pulse Resp B/P (MAP) Pulse Ox O2 Delivery O2 Flow Rate FiO2 04/06/20 09:57 81 121/81 04/06/20 07:00 18 04/06/20 06:00 98.1 96 Nasal Cannula 3.0 I&O- Last 24 Hours up to 6 AM 04/06/20 06:00 Intake Total 1200 ml Output Total 800 ml Balance 400 ml Laboratory Data Labs 24H Laboratory Tests 2 04/05/20 17:13: Lactic Acid Level 1.0, Troponin I < 0.02, AA-Vvw-X-Type Natriuretic Peptide [id number] 04/05/20 17:36: Methicillin-Resist S.aureus DNA PCR DETECTEDA 04/06/20 05:34: Nucleated Red Blood Cells % (auto) 0.0, Anion Gap 9, Glomerular Filtration Rate 23.3L, Calcium Level 8.5, Total Bilirubin 1.0, Aspartate Amino Transf (AST/SGOT) 12, Alanine Aminotransferase (ALT/SGPT) < 6L, Alkaline Phosphatase 111, Total Protein 6.2L, Albumin 1.8L, Albumin/Globulin Ratio 0.4 CBC/BMP Laboratory Tests 04/06/20 05:34 Microbiology Microbiology 04/05/20 Blood Culture, Received Pending 04/05/20 Eye/Ear/Nose/Throat Culture, Received Pending 04/05/20 Blood Culture, Received Pending Allergies Coded Allergies: No Known Drug Allergies (Verified Allergy, Unknown, 01/06/19) Home Medications Scheduled Amiodarone Hcl (Pacerone) 200 Mg Tablet, 200 MG PO BID, (Reported) Apixaban (Eliquis) 5 Mg Tablet, 5 MG PO BID, (Reported) Carvedilol (Carvedilol) 3.125 Mg Tablet, 3.125 MG PO BID, (Reported) Ciprofloxacin HCl (Ciprofloxacin HCl) 500 Mg Tablet, 500 MG PO DAILY, (Reported) Clopidogrel Bisulfate (Clopidogrel) 75 Mg Tablet, 75 MG PO DAILY, (Reported) Ferrous Gluconate (Ferrous Gluconate) 240 Mg Tablet, 240 MG PO BID, (Reported) Fluoxetine Hcl (Fluoxetine HCl) 40 Mg Capsule, 40 MG PO DAILY, (Reported) Furosemide (Furosemide) 40 Mg Tablet, 40 MG PO BID, (Reported) Insulin Human Lispro (Humalog) 100 Unit/1 Ml Vial, 1 DOSE SC ACHS, (Reported) SLIDING SCALE Metronidazole (Flagyl) 500 Mg Tablet, 500 MG PO Q8H, (Reported) Multivitamin (Tab-A-Claudia) 1 Each Tablet, 1 TAB PO DAILY, (Reported) Pantoprazole Sodium (Pantoprazole Sodium) 40 Mg Tablet.dr, 40 MG PO DAILY, (Reported) Sodium Bicarbonate (Sodium Bicarbonate) 325 Mg Tablet, 1,300 MG PO DAILY, (Reported) Tiotropium [place] (Spiriva) 18 Mcg Cap.w.dev, 1 INHALATION INH DAILY, (Reported) Trimethobenzamide HCl (Tigan) 300 Mg Capsule, 300 MG PO TID, (Reported) Ursodiol (Ursodiol) 300 Mg Capsule, 300 MG PO BID, (Reported) Scheduled PRN Acetaminophen (Acetaminophen) 500 Mg Tablet, 1,000 MG PO TID PRN for PAIN, (Reported) Albuterol Sulf (Albuterol Sulfate) 2.5 Mg/3 Ml Vial.neb, 2.5 MG INH Q6H PRN for SHORTNESS OF BREATH, (Reported) Albuterol Sulfate (Proair Hfa) 8.5 Gm Hfa.aer.ad, 2 PUFF INH Q4H PRN for SHORTNESS OF BREATH, (Reported) Nitroglycerin (Nitrostat) 0.4 Mg Tab.subl, 0.4 MG SL NITRO PRN for CHEST PAIN, (Reported) Ondansetron HCl (Ondansetron HCl) 4 Mg Tablet, 4 MG PO Q8H PRN for NAUSEA, (Reported) Tram [employer] Apr 06, 2020 16:17
[2020-04-06] MEDS: ERTAPENEM SODIUM 0.5 GM in NS 50 ML IV SCH (16:33)
--- NOTE | 2020-04-06 18:18 | IPNPDOC ---
Date Seen The patient was seen on 04/06/20. Progress Note SUBJECTIVE: Vision is slightly improved, eye culture still pending. Discussed case with Dr. Giordano due to BNP 158,759. Due to renal failure, it is difficult to say how much of this elevation is 2/2 to renal disease vs. heart failure. Patient is well known to their service, is often noncompliant and has systolic CHF that has biventricular PM. Aside from lasix, they have no additional recommendations to make. Given 40 mg IV lasix, nephrology to see today and make further recommendations. Discussed with IR, patient to have G to J tube conversion on 04/08/20. Had a level of care meeting with patient today, at this time patient would like to stay a FULL CODE, wants everything done and to be on a ventilator for at least 6 months before he is taken off. Palliative care was consulted, as family said they would be open to discussing their involvement in care with his chronic pain, failure to thrive. Denies increased cough, chest pain, shortness of breath. OBJECTIVE: PHYSICAL EXAMINATION: VITAL SIGNS: Please see below. General: more alert today, not as confused (can wax and wane at baseline) following commands this AM and opening eyes for me. NAD, resting in bed, emaciated HEENT: less conjuntivitis bilaterally with yellow crust, anicteric sclerae, no nasal discharges, no throat exudates, no oral lesions, PERRL, EOM intact, dentures in place NECK: supple, no cervical tenderness, no bruit noted, no rigidity noted CHEST: crackles bilateral lower lung patterson, no rhonchi or rales CVS; s1 and s2 distinct, no murmurs audible note, no rubs, or thrills, GI: soft, positive normoactive bowel sounds,left upper quadrant tenderness, peg tube ; no rigidity , no guarding noted. left upper quadrant tenderness. colostomy bag RLQ EXTREMITIES: no limitation of ROM, left leg pain on palpation. 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 CXR: b/l PNA, opacities, CT chest: CM with significant CHF, b/l infiltrates, GG opacities and effusion, L>R, upper abdominal ascites, mesenteric stranding, small known splenic abscess CT abd/pelvis 04/05/20: 1. Extensive bilateral lung disease, unchanged. 2. Bilateral pleural effusions, unchanged. 3. Left upper quadrant/splenic subcapsular low-density collection, unchanged. 4. Small abdominal and pelvic ascites. 5. Gastrostomy tube present with tip in the gastric cavity ASSESSMENT: 49 y/o M PMH of autoimmune pancreatitis admitted for acute on chronic pancreatitis, splenic collection (abscess? vs. seroma with hx of abscess 02/2020 s/p drainage), bilateral HCAP, systolic CHF exacerbation. PLAN: 1. Altered mental status, intermittent. Hx of CVA with intermittent confusion but also possibly 2/2 to overall decline, failure to thrive and health care associated PNA. Lethargic still today but not as confused. WBC minimally improved to 10.6. Still requiring 3 L NC (not on home O2). See individual t reatment plans for issues below. 2. Bilateral health care associated pneumonia. Imaging above. Could be responsible for decline we have been seeing, increased lethargy. WBC 10.9, afebrile, cough with increasing O2 demand. CT chest, CXR above. On ertapenem, added levofloxacin 04/05 and Vancomycin 04/06 due to MRSA +. F/u sputum culture, blood cultures x 2, daily CBC. Acapella Q2 hrs while awake 3. Acute on chronic systolic CHF with exacerbation. Hx of cardiomyopathy, CABG, s/p AICD and biventricular PM- follows with Dr. Giordano. BNP 158,759, trop neg, no chest pain. He was on furosemide BID before admission here; however, has not been on this medication since admission due to worsening renal failure. Discussed with cardiology (not officially consulted) and nephrology, given If BNP markedly elevated, will discuss with nephrology what needs to occur for diuresis. For now, c/w BB, other cardiac meds. 4. Conjunctivitis with "burning" when opens eyes. Improving slowly on polymixin B/trimethoprim eye drops. F/u eye culture. Ophthalmology not available 5. Splenic collection, seroma and possibly abscess, history of perisplenic/splenic abscess 02/2020, underwent IR drain in [facility] on 02/23, with history of enterobacter species, on cipro and flagyl. Currently afebrile, WBC wnl. Prior hospitalist before me she had spoke with Dr. Palmer (ID) at [facility], and we do have the same record that the splenic collection was 7 cm largest diameter, and then 4 cm post IR drain there, and noted that on recent US it is 6.5cm, slightly larger. Agreed to have another IR drain previously; however, 04/01/20 refused drainage due to it being high risk with them needing to pass needle through pleural space. Per Dr. Kent (radiologist), this would put him at increased risk for empyema, pneumothorax. Discussed inability to proceed forward with drainaging with ID PA today at [facility]. C/w Ertapenem IV (what Enterobacter isolated previously was sensitive to in 02/2020), reimaging next week to see if splenic collection bigger and more accessible vs. going through the pleural space. When nausea has improved, can consider transitioning back to PO abx. Patient will have to remain on abx until splenic collection is resolved per ID. 6. Failure to thrive 2/2 to several acute on chronic issues, multiple recent hospitalizations. Decline this hospital stay. Family agreed to meet with palliative care after weekend. Poor oral intake, nausea likely 2/2 to acute infection/illness above. Residuals high , stopped tube feedings. Discussed with surgery and suggested IR to do G to J tube conversion which will occur on 04/08/20. IR consulted. Not eating from his diet well but will c/w low fat diet, pancreatic enzymes with meals. Encouraging fluids Q2 hrs. Zofran ATC. Palliative care brought up with patient due to health decline, multiple hospitalizations and chronic pain and they are to see today. 7. MARTY on Chronic kidney disease stage III. 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 Hx of MARTY requiring dialysis in 2019. nephrology following. Avoid nephrotoxic medications aside from lasix, daily labs. 8. Acute on chronic pancreatitis. Hx of autoimmune pancreatitis. lipase, CMP improved. Abdominal pain improving; however, still requiring some morphine PRN. Poor intake, changing to low fat diet with pancreatic enzymes with meals. 9. Diabetes Mellitus type II. Stable. BS wnl. C/w ISS, AC/HS finger sticks, consistent carb diet. 10. Hx of CVA. C/w plavix, not on statin. 11. Hx of PE/DVT, DVT px. Eliquis BID DISPOSITION: For further questions concerning infection, splenic collection/abscess? can call ID clinic at [facility]. Services consulted on this patient: Nephrology, Interventional Radiology, General Surgery, Palliative Care. VS, I&O, 24H, Fishbone Vital Signs/I&O Vital Signs Date Time Temp Pulse Resp B/P (MAP) Pulse Ox O2 Delivery O2 Flow Rate FiO2 04/06/20 17:13 18 04/06/20 14:00 97.5 67 113/71 (85) 91 Nasal Cannula 3.0 I&O- Last 24 Hours up to 6 AM 04/06/20 06:00 Intake Total 1200 ml Output Total 800 ml Balance 400 ml Laboratory Data 24H LABS Laboratory Tests 2 04/06/20 05:34: Nucleated Red Blood Cells % (auto) 0.0, Anion Gap 9, Glomerular Filtration Rate 23.3L, Calcium Level 8.5, Total Bilirubin 1.0, Aspartate Amino Transf (AST/SGOT) 12, Alanine Aminotransferase (ALT/SGPT) < 6L, Alkaline Phosphatase 111, Total Protein 6.2L, Albumin 1.8L, Albumin/Globulin Ratio 0.4 CBC/BMP Laboratory Tests 04/06/20 05:34 Microbiology Microbiology 04/05/20 Blood Culture, Received Pending 04/05/20 Eye/Ear/Nose/Throat Culture, Received Pending 04/05/20 Blood Culture - Preliminary, Resulted No growth after 24 hours . All specim... Current Medications Current Medications Medications (Trade) Dose Ordered Sig/Harish Route PRN Reason Start Time Stop Time Status Last Admin Dose Admin Acetaminophen (Tylenol Tab) 650 mg Q4H PRN PO PAIN OR FEVER 03/24/20 21:30 03/25/20 01:32 DC Acetaminophen (Tylenol Tab) 1,000 mg TID PRN PO mild pain 03/25/20 01:45 Albuterol Sulfate (Proventil, Ventolin Hfa) 2 puff Q4HP PRN INH SHORTNESS OF BREATH 03/25/20 01:30 Albuterol/ Ipratropium (Duoneb (Ipr 0.5mg/Alb 2.5mg)) 3 ml Q2HP PRN NEB SOB/WHEEZING 03/25/20 06:30 Amiodarone HCl (Pacerone, Cordarone) 200 mg BID PO 03/25/20 09:00 04/06/20 09:56 Apixaban (Eliquis) 5 mg BID PO 03/25/20 09:00 03/28/20 13:54 DC 03/28/20 09:37 Apixaban (Eliquis) 5 mg BID PO 04/01/20 21:00 04/06/20 09:57 Artificial Tears (Akwa Tears) 2 drop Q4HP PRN OU DRY EYES 04/02/20 13:45 04/04/20 16:19 DC 04/03/20 05:47 Carvedilol (COReg) 3.125 mg BID PO 03/25/20 09:00 04/06/20 09:57 Chlorhexidine Gluconate (Peridex Oral Rinse) 15 ml TID SSP 04/04/20 16:00 04/06/20 16:33 Ciprofloxacin (Cipro) 500 mg DAILY PO 03/25/20 09:00 04/02/20 14:20 DC 04/02/20 08:49 Clopidogrel Bisulfate (PLAVix) 75 mg DAILY PO 03/25/20 09:00 04/01/20 17:17 DC 03/30/20 09:44 Clopidogrel Bisulfate (PLAVix) 75 mg DAILY PO 04/01/20 17:30 04/06/20 09:56 Dextrose (Dextrose 50%) 25 ml ASDIRECTED PRN IV SEE LABEL COMMENTS 03/24/20 21:30 03/27/20 16:04 DC Dextrose (Dextrose 50%) 25 ml ASDIRECTED PRN IV SEE LABEL COMMENTS 03/27/20 16:00 Dextrose (Dextrose 50%) 25 ml STAT STAT IV 03/29/20 09:38 03/29/20 09:40 DC 03/29/20 09:56 Dextrose/Sodium Chloride 1,000 ml @ 50 mls/hr Q20H IV 04/05/20 12:30 04/06/20 07:45 DC 04/05/20 12:49 Dextrose/Sodium Chloride 1,000 ml @ 100 mls/hr Q10H IV 03/24/20 21:30 03/27/20 11:33 DC 03/27/20 11:09 Ertapenem 0.5 gm/ Sodium Chloride 50 ml @ 100 mls/hr Q24H IV 04/02/20 16:00 04/06/20 16:33 Ertapenem 0.5 gm/ Sodium Chloride 50 ml @ 100 mls/hr Q24H IV 04/02/20 16:00 Cancel Fluoxetine HCl (PROzac) 40 mg DAILY PO 03/25/20 09:00 04/06/20 09:57 Furosemide (LASIX injection) 60 mg Q8H IV 03/28/20 20:00 03/29/20 10:57 DC 03/29/20 04:50 Furosemide (LASIX injection) 80 mg Q8H IV 03/29/20 12:00 03/31/20 21:12 DC 03/31/20 12:52 Furosemide (Lasix) 40 mg BID PO 03/25/20 09:00 03/25/20 10:49 DC 03/25/20 08:45 Glucagon (Glucagon) 1 mg ASDIRECTED PRN SC SEE LABEL COMMENTS 03/24/20 21:30 03/27/20 16:04 DC Glucagon (Glucagon) 1 mg ASDIRECTED PRN SC SEE LABEL COMMENTS 03/27/20 16:00 Glucose (Glucose) 16 GM ASDIRECTED PRN PO SEE LABEL COMMENTS 03/24/20 21:30 03/27/20 16:04 DC Glucose (Glucose) 16 GM ASDIRECTED PRN PO SEE LABEL COMMENTS 03/27/20 16:00 Heparin Sodium (Porcine) (Heparin) 5,000 units Q8H SQ 03/31/20 16:30 04/01/20 00:00 DC 03/31/20 16:53 Home Med (Med Rec Complete!) ASDIRECTED XX 03/24/20 21:00 03/24/20 21:01 DC Insulin Human Lispro (HumaLOG INSULIN) SEE PROTOCOL TABLE Q6H SC 03/25/20 00:00 03/27/20 14:06 DC 03/27/20 05:48 Insulin Human Lispro (HumaLOG INSULIN) See Protocol Table AC SC 03/27/20 17:30 04/06/20 17:12 Insulin Human Lispro (HumaLOG INSULIN) See Protocol Table QHS SC 03/27/20 21:00 Insulin Human Regular (HumuLIN R INSULIN) 10 units STAT STAT IV 03/29/20 09:38 03/29/20 09:40 DC 03/29/20 09:57 Lactobacillus Acidophilus (Bacid) 1 ea BIDWM PO 04/01/20 18:00 04/06/20 09:57 Levofloxacin 250 mg/IV Miscellaneous Supplies 50 ml @ 50 mls/hr Q24H IV 04/06/20 18:00 Metronidazole (Flagyl) 500 mg Q8H PO 03/25/20 06:00 04/02/20 14:20 DC 04/02/20 14:10 Morphine Sulfate (Morphine Sulfate Inj) 1 mg Q6H PRN IV SEVERE PAIN (PS 8-10) 03/31/20 16:15 04/06/20 17:13 Morphine Sulfate (Morphine Sulfate Inj) 2 mg Q3H PRN IV SEVERE PAIN (PS 8-10) 03/25/20 10:45 03/31/20 16:18 DC 03/31/20 13:38 Nitroglycerin (Nitrostat (1/ 150)) 0.4 mg Q5MP PRN SL CHEST PAIN 03/25/20 01:30 Ondansetron HCl (ZOFRAN INJection) 4 mg Q6HP PRN IV NAUSEA OR VOMITING 03/25/20 16:30 04/02/20 11:04 DC 04/02/20 10:51 Ondansetron HCl (Zofran Odt) 4 mg Q6H PO 04/02/20 17:00 04/06/20 17:11 Ondansetron HCl (Zofran) 4 mg Q8H PRN PO NAUSEA 03/25/20 01:30 03/25/20 06:26 DC Oxycodone/ Acetaminophen (Percocet 5mg/ 325mg Tablet) 1 tab Q4HP PRN PO MILD/MODERATE PAIN (PS 1-7) 04/02/20 15:00 Oxycodone/ Acetaminophen (Percocet 5mg/ 325mg Tablet) 1 tab Q6HP PRN PO MILD/MODERATE PAIN (PS 1-7) 03/28/20 08:00 04/02/20 11:04 DC 04/02/20 10:52 Pancrelipase (Creon-12) 1 ea WM PO 04/03/20 08:00 04/06/20 13:05 Pantoprazole Sodium (Protonix) 40 mg DAILY PO 03/25/20 09:00 03/25/20 16:25 DC 03/25/20 08:44 Pantoprazole Sodium (Protonix) 40 mg Q24H IV 03/26/20 09:00 04/06/20 09:55 Polymyxin/ Trimethoprim Sulfate (Polytrim Ophth Drops) 1 drop 6XD OU 04/04/20 18:00 04/13/20 17:59 04/06/20 14:12 Sodium Bicarbonate (Sodium Bicarbonate) 1,300 mg DAILY PO 03/25/20 09:00 03/30/20 11:41 DC 03/30/20 11:05 Tiotropium [place] (Spiriva Handihaler) 1 inhalation DAILY@0800 INH 03/25/20 08:00 03/27/20 07:39 Tramadol HCl (Ultram) 50 mg Q6HP PRN PO MODERATE TO SEVERE PAIN 03/25/20 01:45 03/28/20 07:59 DC 03/28/20 06:07 Trimethobenzamide HCl (Tigan) 300 mg Q6HP PRN PO NAUSEA OR VOMITING 03/29/20 15:00 04/01/20 17:11 Trimethobenzamide HCl (Tigan) 300 mg Q8HP PRN PO NAUSEA 03/25/20 06:00 03/25/20 10:47 DC Ursodiol (Actigall) 300 mg BID PO 03/25/20 09:00 04/06/20 09:56 Vancomycin HCl 1000 mg/IV Miscellaneous Supplies 1 each/ Dextrose 270 ml @ 270 mls/hr Q24H IV 04/06/20 12:00 04/06/20 13:06 Allergies Coded Allergies: No Known Drug Allergies (Verified Allergy, Unknown, 01/06/19) Caterina Meek MD Apr 06, 2020 18:18
[2020-04-06] MEDS: LevoFLOXacin IV 250 MG in IV 1 EA IV SCH (18:23)
[2020-04-06 22:00] VITALS: BP 112/72
[2020-04-07] MEDS: ONDANSETRON 4 MG ORAL DISINTEGRATING TAB PO SCH ×4 (05:00→23:00)
[2020-04-07] MEDS: POLYTRIM OPTH DROPS 10ML OU SCH ×8 (05:44→20:21)
[2020-04-07 06:00] VITALS: BP 113/70
[2020-04-07 06:27] LABS: HEMATOCRIT 37.5 % (42.0-52.0); HEMOGLOBIN 11.8 g/dl (13.5-17.5); MEAN CORPUSCULAR HEMOGLOBIN 28.2 pg (27.0-33.0); MEAN CORPUSCULAR HGB CONC 31.5 g/dl (32.0-36.5); MEAN CORPUSCULAR VOLUME 89.7 fl (80.0-96.0); PLATELET COUNT, AUTOMATED 281 10^3/uL (150-450); RED BLOOD COUNT 4.18 10^6/uL (4.30-6.10); WHITE BLOOD COUNT 10.5 10^3/uL (4.0-10.0)
[2020-04-07 06:47] LABS: ALBUMIN 1.8 GM/DL (3.2-5.2); ALT/SGPT < 6 U/L (12-78); BILIRUBIN,TOTAL 0.9 MG/DL (0.2-1.0); BLOOD UREA NITROGEN 61 MG/DL (7-18); CALCIUM LEVEL 8.7 MG/DL (8.5-10.1); CARBON DIOXIDE LEVEL 24 MEQ/L (21-32); CHLORIDE LEVEL 106 MEQ/L (98-107); CREATININE FOR GFR 2.97 MG/DL (0.70-1.30); GLOMERULAR FILTRATION RATE 23.9 (>56); GLUCOSE, FASTING 98 MG/DL (70-100); SODIUM LEVEL 140 MEQ/L (136-145); TOTAL PROTEIN 5.9 GM/DL (6.4-8.2)
[2020-04-07] MEDS: TIOTROPIUM INHALER/CAPSULE (SPIRIVA) INH SCH (07:11)
[2020-04-07] MEDS: HumaLOG INSULIN (NovoLOG) PER UNIT SC SCH ×4 (07:30→20:46)
[2020-04-07] MEDS: CHLORHEXIDINE GLUCONATE 0.12 % 15ML UDC (PERIDEX ORAL RINSE) SSP SCH ×5 (09:00→20:20)
[2020-04-07] MEDS: CLOPIDOGREL 75 MG TAB PO SCH (09:20)
[2020-04-07] MEDS: CARVedilol 3.125 MG TAB PO SCH ×2 (09:20→20:15)
[2020-04-07] MEDS: AMIODARONE 200 MG TAB (PACERONE) PO SCH ×2 (09:20→20:13)
[2020-04-07] MEDS: ursodioL 300 MG CAP PO SCH ×2 (09:20→20:12)
[2020-04-07] MEDS: LACTOBACILLUS ACIDOPHILUS CAP (BACID) PO SCH ×2 (09:21→17:51)
[2020-04-07] MEDS: PANTOPRAZOLE 40MG VIAL (C9113 PER 1) IV SCH (09:21)
[2020-04-07] MEDS: CREON-12 CAPSULE PO SCH ×3 (09:21→17:50)
[2020-04-07] MEDS: FLUoxetine 20 MG CAP PO SCH (09:21)
[2020-04-07] MEDS: APIXABAN 5 MG TAB (ELIQUIS) PO SCH ×2 (09:21→20:13)
[2020-04-07] MEDS: MORPHINE 2 MG/ML 1ML VIAL (J2270) IV PRN ×2 (10:04→17:23)
[2020-04-07] MEDS: VANCOMYCIN HCL 1,000 MG, VIAL MATE ADAPTER 1 EACH in D5W 250 ML IV SCH (12:12)
[2020-04-07 14:00] VITALS: BP 115/71
--- NOTE | 2020-04-07 15:01 | IPN ---
DATE: 04/06/2020 SUBJECTIVE: Patient was seen and examined at the bedside today morning. Patient is afebrile, but clinically he is deteriorating. He was lying in the bed. He was given gentle I.V. fluid hydration. Creatinine is better today with that, but because of severely elevated BNP levels and history of systolic congestive heart failure, primary team stopped the I.V. fluid and gave him a dose of Lasix 40 mg I.V. Patient is not interested in talking. He answers few questions. His eyes are closed. OBJECTIVE: Vital signs: Temperature 98.1 degrees Fahrenheit, blood pressure 121/81, pulse 81, respiratory rate 18, saturating 96% on nasal cannula at 3 liters. Intake and output: Urine output recorded as 350 mL, stool output is 100 mL. Weight in the bed scale is not available. PHYSICAL EXAMINATION: GENERAL: Patient is lying in the bed, eyes are closed. Minimally responsive. HEAD AND NECK: Patient has bitemporal wasting. Mucous membranes are moist. Neck is supple. There is no significant JVD. CARDIOVASCULAR: S1, S2, regular rate. 1+ edema of the bilateral ankles. RESPIRATORY: Mildly decreased breath sounds at the bases. Otherwise no rales or rhonchi. ABDOMEN: Soft, moderately tender to deep palpation in the left upper quadrant. He has a PEG tube in the epigastrium and right lower quadrant ileostomy. MUSCULOSKELETAL: Patient has severe muscle wasting. No clubbing or cyanosis. FELTER TENNIS BALLS: Patient's eyes are closed. He follows commands, but not really interested in talking. PSYCHIATRIC: He has a depressed mood. LABORATORY REVIEWS: CBC showed WBC 10.6, hemoglobin 11.8, platelets 254,000. BMP showed sodium 140, potassium 3.8, chloride 107, bicarb 24, BUN 63, creatinine 3; it was 3.4 yesterday. Albumin 1.8. IMAGING STUDIES: A CAT scan of the abdomen and pelvis was done yesterday; it shows extensive bilateral lung disease, bilateral pleural effusions. Left upper quadrant splenic subcapsular lobe density collection, small abdominal and pelvis ascites, gastrostomy tube with air present in the gastric cavity. CURRENT INPATIENT MEDICATIONS: Patient's medications were all reviewed by myself. His I.V. fluids have been stopped. He continues to be on I.V. Levaquin and Ertapenem along with Vancomycin. He was given one dose of Lasix 40 mg I.V. today morning. No other significant change in the medications today. ASSESSMENT & PLAN: 1. Acute renal failure superimposed on chronic kidney disease: His creatinine is close to baseline with a creatinine of 3. He was given gentle I.V. fluid hydration, however because of severe systolic heart failure, I.V. fluids have been stopped. No urgent need of hemodialysis. 2. Chronic systolic congestive heart failure: Patient was given one dose of Lasix 40 mg. He will be monitored on a daily basis for any need of diuretic. 3. Protein calorie malnutrition: Patient is having high residues through the PEG tube. Medical team is talking to IR for possible advancement of the tube into the jejunum. 4. Bilateral healthcare associated pneumonia: Patient is already on broad spectrum I.V. antibiotic coverage. 5. Splenic abscess: Patient is on I.V. Ertapenem and Vancomycin. 6. Acute on chronic pancreatitis: Patient continues to be on pancreatic enzymes. Pain is optimized with the medications. He has poor oral intake and I.V. fluids have been stopped because of systolic heart failure. DISPOSITION: Patient overall has a poor prognosis given multiple comorbidities including severe systolic heart failure, acute on chronic kidney disease, bilateral pneumonia, subcapsular splenic abscesses and recurrent admissions to the hospital. The patient is pending evaluation by palliative care. TYRONED
[2020-04-07 15:54] LABS: C REACTIVE PROTEIN QUANTITATIV 4.84 MG/DL (0.00-0.30)
[2020-04-07] MEDS: ERTAPENEM SODIUM 0.5 GM in NS 50 ML IV SCH (16:24)
[2020-04-07] MEDS: NYSTATIN 500,000 U/5 ML SUSP UDC SS SCH ×2 (17:50→20:12)
[2020-04-07] MEDS: LevoFLOXacin IV 250 MG in IV 1 EA IV SCH (17:51)
--- NOTE | 2020-04-07 18:16 | IPNPDOC ---
Text Note Date of Service The patient was seen on 04/07/20. NOTE SUBJECTIVE: -No changes, feels weak, tired, no specific complaints today -Officially consulted ID PHYSICAL EXAMINATION: General: NAD, chronically ill appearing HEENT: PERRLA, EOMI, dentures in place, no noted erythema or eye discharge NECK: supple, no cervical tenderness CHEST: crackles bilateral lower lung patterson, otherwise with poor effort CVS; RRR, no mrg GI: soft, positive normoactive bowel sounds, left upper quadrant tenderness, peg tube in place, no guarding noted. 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 Please see below. CT abd/pelvis 04/05/20: 1. Extensive bilateral lung disease, unchanged. 2. Bilateral pleural effusions, unchanged. 3. Left upper quadrant/splenic subcapsular low-density collection, unchanged. 4. Small abdominal and pelvic ascites. 5. Gastrostomy tube present with tip in the gastric cavity ASSESSMENT: 49 y/o M PMH of a history of pancreatitis c/b necrotic pseudocyst s/p drainage, as well as a history of a splenic abscess s/p drainage and abx, admitted for abdominal pain and found to have a stably persistent splenic col lection, as well as suspicion for PNA and systolic CHF exacerbation. PLAN: 1. Altered mental status, intermittent. Hx of CVA with intermittent confusion but also possibly 2/2 to overall decline, failure to thrive and health care associated PNA. Lethargic still today but not confused. Still requiring 3 L NC (not on home O2), likely 2/2 debility and atelectasis in combination with CHF, unlikely to have PNA 2. Hypoxemic respiratory failure: WBC without acute impressive leukocytosis, afebrile, cough with increasing O2 demand.. Could possibly have PNA. So will continue levofloxacin 04/05 but will dc ertapenem and vanc. -F/u sputum culture, blood cultures x 2, daily CBC. -Acapella Q2 hrs while awake -supplemental O2 3. Acute on chronic systolic CHF with exacerbation. Hx of cardiomyopathy, CABG, s/p AICD and biventricular PM- follows with Dr. Antecol. BNP 158,759, trop neg, no chest pain. He was on furosemide BID before admission here; however, has not been on this medication since admission due to worsening renal failure. -will discuss diuresis plan with nephrology 4. Conjunctivitis: continue polymixin B/trimethoprim eye drops. 5. Persistent splenic abscess, history of perisplenic/splenic abscess 02/2020, underwent IR drain in [facility] on 02/23, with history of enterobacter species, and placed on cipro and flagyl for weeks. Currently afebrile, WBC wnl. Prior hospitalist before me she had spoke with Dr. Palmer (ID) at [facility], and we do have the same record that the splenic collection was 7 cm largest diameter, and then 4 cm post IR drain there, and noted that on recent US it is 6.5cm, slightly larger. Agreed to have another IR drain previously; however, 04/01/20 refused drainage due to it being high risk with them needing to pass needle through pleural space. Per Dr. Kent (radiologist), this would put him at increased risk for empyema, pneumothorax. -consulted Dr. Hector, recommended placing back on levaquin/flagyl for enterbacter and discontinuing with vanc and ertapenem, noting that the levaquin is sufficient to cover PNA 6. Failure to thrive 2/2 to several acute on chronic issues, multiple recent hospitalizations. Decline this hospital stay. Family met with palliative care. Poor oral intake, nausea likely 2/2 to acute infection/illness above. Residuals high , stopped tube feedings. Discussed with surgery and suggested IR to do G to J tube conversion which will occur on 04/08/20. IR consulted. Not eating from his diet well but will c/w low fat diet, pancreatic enzymes with meals. Encouraging fluids Q2 hrs. Zofran ATC. Palliative care brought up with patient due to health decline, multiple hospitalizations and chronic pain. -G to J tube place is for 04/08 -Remains FULL CODE 7. MARTY on Chronic kidney disease stage III. 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 Hx of MARTY requiring dialysis in 2019. nephrology following. -Avoid nephrotoxic medications, daily labs. 8. History of chronic pancreatitis. Chart mention of autoimmune pancreatitis. lipase, CMP improved. Abdominal pain improving; however, still requiring some morphine PRN. Poor intake, now changed to low fat diet with pancreatic enzymes with meals. 9. Diabetes Mellitus type II. Stable. BS wnl. C/w ISS, AC/HS finger sticks, consistent carb diet. 10. Hx of CVA. C/w plavix, not on statin. 11. Hx of PE/DVT, DVT px. Eliquis BID DISPOSITION: Services consulted on this patient: Nephrology, Interventional Radiology, General Surgery, Palliative Care, ID. VS,Fishbone, I+O VS, Fishbone, I+O Laboratory Tests 04/07/20 05:40 Vital Signs Date Time Temp Pulse Resp B/P (MAP) Pulse Ox O2 Delivery O2 Flow Rate FiO2 04/07/20 10:19 16 04/07/20 09:20 75 113/69 04/07/20 09:00 1.0 04/07/20 06:00 98.0 94 Nasal Cannula I&O- Last 24 Hours up to 6 AM 04/07/20 06:00 Intake Total 120 ml Output Total 1225 ml Balance -1105 ml DEREK RUANO MD Apr 07, 2020 18:16
[2020-04-07] MEDS: metroNIDAZOLE 500 MG in IV 1 EA IV SCH (20:12)
[2020-04-07 22:00] VITALS: BP 108/75
[2020-04-08] MEDS: metroNIDAZOLE 500 MG in IV 1 EA IV SCH ×3 (04:13→20:32)
[2020-04-08] MEDS: ONDANSETRON 4 MG ORAL DISINTEGRATING TAB PO SCH ×4 (04:21→23:12)
[2020-04-08] MEDS: POLYTRIM OPTH DROPS 10ML OU SCH ×6 (05:06→20:32)
[2020-04-08 06:00] VITALS: BP 113/72
[2020-04-08 06:11] LABS: HEMATOCRIT 37.7 % (42.0-52.0); HEMOGLOBIN 11.8 g/dl (13.5-17.5); MEAN CORPUSCULAR HGB CONC 31.3 g/dl (32.0-36.5); MEAN CORPUSCULAR VOLUME 89.5 fl (80.0-96.0); PLATELET COUNT, AUTOMATED 312 10^3/uL (150-450); RED BLOOD COUNT 4.21 10^6/uL (4.30-6.10); WHITE BLOOD COUNT 9.3 10^3/uL (4.0-10.0)
[2020-04-08 06:36] LABS: ALBUMIN 1.8 GM/DL (3.2-5.2); ALT/SGPT < 6 U/L (12-78); BILIRUBIN,TOTAL 0.8 MG/DL (0.2-1.0); BLOOD UREA NITROGEN 62 MG/DL (7-18); CALCIUM LEVEL 8.8 MG/DL (8.5-10.1); CARBON DIOXIDE LEVEL 23 MEQ/L (21-32); CHLORIDE LEVEL 106 MEQ/L (98-107); CREATININE FOR GFR 2.93 MG/DL (0.70-1.30); GLOMERULAR FILTRATION RATE 24.3 (>56); GLUCOSE, FASTING 129 MG/DL (70-100); POTASSIUM SERUM 4.2 MEQ/L (3.5-5.1); SODIUM LEVEL 139 MEQ/L (136-145); TOTAL PROTEIN 6.6 GM/DL (6.4-8.2)
[2020-04-08] MEDS: HumaLOG INSULIN (NovoLOG) PER UNIT SC SCH ×4 (07:30→20:19)
[2020-04-08] MEDS: CREON-12 CAPSULE PO SCH ×3 (08:00→17:27)
[2020-04-08] MEDS: TIOTROPIUM INHALER/CAPSULE (SPIRIVA) INH SCH (08:00)
[2020-04-08] MEDS: FLUoxetine 20 MG CAP PO SCH (08:27)
[2020-04-08] MEDS: PANTOPRAZOLE 40MG VIAL (C9113 PER 1) IV SCH (08:27)
[2020-04-08] MEDS: LACTOBACILLUS ACIDOPHILUS CAP (BACID) PO SCH ×2 (08:28→17:27)
[2020-04-08] MEDS: APIXABAN 5 MG TAB (ELIQUIS) PO SCH (08:28)
[2020-04-08] MEDS: CLOPIDOGREL 75 MG TAB PO SCH (08:28)
[2020-04-08] MEDS: AMIODARONE 200 MG TAB (PACERONE) PO SCH ×2 (08:33→20:32)
[2020-04-08] MEDS: CARVedilol 3.125 MG TAB PO SCH ×2 (08:33→20:18)
[2020-04-08] MEDS: ursodioL 300 MG CAP PO SCH ×2 (08:33→20:32)
[2020-04-08] MEDS: NYSTATIN 500,000 U/5 ML SUSP UDC SS SCH ×3 (08:41→20:31)
[2020-04-08] MEDS: CHLORHEXIDINE GLUCONATE 0.12 % 15ML UDC (PERIDEX ORAL RINSE) SSP SCH ×3 (08:41→20:31)
--- NOTE | 2020-04-08 08:58 | IPN ---
DATE: 04/07/2020 SUBJECTIVE: Patient was seen and examined at the bedside today morning. Patient's renal function is better today, however, he is getting weaker day by day. He is not eating much. Tube feeds are not even successful because the tube needs to be advanced to jejunum. He is not on any I.V. fluid hydration. He was seen by palliative care and his family members are discussing the goals of care with the medical team. OBJECTIVE: Vital signs: Temperature 98 degrees Fahrenheit, blood pressure 113/69, pulse 75, respiratory rate 16, saturating 94% on nasal cannula at 2 liters. Intake and output: Urine output recorded as 1 liter yesterday, and 200 mL so far today since overnight. Weight in the bed scale is not available. PHYSICAL EXAMINATION: GENERAL: Patient is lying in the bed, weak and cachectic. HEAD AND NECK: He has bitemporal wasting, sunken eyes. Mucous membranes are moist. Neck is supple. There is no JVD. CARDIOVASCULAR: S1, S2, regular rate, and no edema of the bilateral lower extremities. RESPIRATORY: Chest is clear to auscultation bilaterally. Currently no rales or rhonchi. ABDOMEN: Soft. He has a PEG tube in the epigastrium and right lower quadrant ileostomy. A moderate amount of tenderness in the left upper quadrant. MUSCULOSKELETAL: He is skin and bone. He has severe muscle wasting. HAND EDGER: Patient is lying in the bed, follows commands, moves extremities, but extremely depressed and does not open eyes and does not communicate well. LABORATORY REVIEWS: CBC showed WBC 10.5, hemoglobin 11.8, platelets 281,000. INR 2. BMP showed sodium 140, potassium 4, chloride 106, bicarb 24, BUN 61, creatinine 2.9, glucose 98. Albumin 1.8. IMAGING STUDIES: A CAT scan of the abdomen and pelvis was done yesterday; it shows extensive bilateral lung disease, bilateral pleural effusions. Left upper quadrant splenic subcapsular lobe density collection, small abdominal and pelvis ascites, gastrostomy tube with air present in the gastric cavity. CURRENT INPATIENT MEDICATIONS: Patient's medications were all reviewed by myself. He continues to be on I.V. Ertapenem and Levaquin along with Vancomycin. No other significant change in the medications today as compared with yesterday. ASSESSMENT & PLAN: 1. Acute renal failure superimposed on chronic kidney disease: Patient's creatinine is trending down, it has come down to 2.9. His electrolytes and acid base status is within the acceptable range. Continue to monitor for now. No urgent need of hemodialysis at this time. 2. Chronic systolic congestive heart failure: Patient is not eating or drinking much. He is requiring Lasix only on a p.r.n. basis. Volume status is optimal at this time. 3. Sepsis secondary to pneumonia and subcapsular splenic abscess: Patient continues to be on Vancomycin, Levaquin and Ertapenem. Dose is adequate according to renal function. Duration of antibiotics is as per medical team or recommendations by infectious disease. 4. Protein calorie malnutrition: Patient has acute pancreatitis, subcapsular abscess in the spleen. He is not eating much. If we have to continue full care, then we need to advance the feeding tube into his jejunum. Patient has minimal oral intake at this time. DISPOSITION: Patient overall has a poor prognosis, clinically he is deteriorating at this time. MTDD
[2020-04-08] MEDS ORDERED: MIDAZOLAM INJ 2MG/2ML VIAL (J2250 PER 1MG) As Ordered ONE ×2 (09:32→10:53)
[2020-04-08] MEDS ORDERED: ISOVUE-300 61% 50ML VIAL As Ordered ONE (09:32)
[2020-04-08] MEDS ORDERED: fentaNYL 100 MCG/2 ML INJECTION (J3010) As Ordered ONE ×2 (09:32→10:53)
[2020-04-08] MEDS ORDERED: diphenhydrAMINE 50MG/ML VIAL (J1200) As Ordered ONE (09:33)
[2020-04-08] MEDS ORDERED: LIDOCAINE 1% MDV 20ML VIAL As Ordered ONE (09:33)
[2020-04-08] MEDS ORDERED: ceFAZolin 1GM VIAL (J0690 PER 500MG) As Ordered ONE (10:00)
[2020-04-08] MEDS ORDERED: PROMETHAZINE INJ 25 MG/ML VIAL (J2550) As Ordered ONE (10:58)
--- NOTE | 2020-04-08 12:23 | IPNPDOC ---
Text Note Date of Service The patient was seen on 04/08/20. NOTE SUBJECTIVE: -Feels exhausted, no specific complaints today PHYSICAL EXAMINATION: General: NAD, chronically ill appearing HEENT: PERRLA, EOMI, dentures in place, no noted erythema or eye discharge NECK: supple, no cervical tenderness CHEST: crackles bilateral lower lung patterson, otherwise with poor effort CVS; RRR, no mrg GI: soft, positive normoactive bowel sounds, left upper quadrant tenderness, peg tube in place, no guarding noted. EXTREMITIES: no limitation of ROM, no leg edema, no joint swelling, no calf tenderness, no atrophy CUSTOMER CARE MANAGER; awake, alert, oriented x 3 CN II-XII grossly intact, no focal sensory or motor deficits LABORATORY DATA, IMAGING STUDIES, MICROBIOLOGY: Reviewed. Please see below. WBC 9.3 hgb 11.8 platelets 312 na 139 [address] abd/pelvis 04/05/20: 1. Extensive bilateral lung disease, unchanged. 2. Bilateral pleural effusions, unchanged. 3. Left upper quadrant/splenic subcapsular low-density collection, unchanged. 4. Small abdominal and pelvic ascites. 5. Gastrostomy tube present with tip in the gastric cavity ASSESSMENT: 49 y/o M PMH of a history of pancreatitis c/b necrotic pseudocyst s/p drainage, as well as a history of a splenic abscess s/p drainage and abx, admitted for abdominal pain and found to have a stably persistent splenic collection, as well as suspicion for PNA and systolic CHF exacerbation. PLAN: 1. Altered mental status, intermittent. Hx of CVA with intermittent confusion but also possibly 2/2 to overall decline, failure to thrive and health care associated PNA. Lethargic still today but not confused. Still requiring 3 L NC (not on home O2), likely 2/2 debility and atelectasis in combination with CHF, unlikely to have PNA. 2. Hypoxemic respiratory failure: WBC without acute impressive leukocytosis, afebrile, cough with increasing O2 demand.. Could possibly have PNA. So will continue levofloxacin started on 04/05 but will dc ertapenem and vanc. -F/u sputum culture, blood cultures x 2, daily CBC. -Acapella Q2 hrs while awake -supplemental O2 -f/u procalcitonin -covered with levaquin for potential PNA, day 4 3. Acute on chronic systolic CHF with exacerbation. Hx of cardiomyopathy, CABG, s/p AICD and biventricular PM- follows with Dr. Giordano. BNP 158,759, trop neg, no chest pain. He was on furosemide BID before admission here; however, has not been on this medication since admission due to worsening renal failure. -will discuss diuresis plan with nephrology 4. Conjunctivitis: continue polymixin B/trimethoprim eye drops. 5. Persistent splenic abscess, history of perisplenic/splenic abscess 02/2020, underwent IR drain in [facility] on 02/23, with history of entero bacter species, and placed on cipro and flagyl for weeks. Currently afebrile, WBC wnl. Prior hospitalist before me she had spoke with Dr. Palmer (ID) at [facility], and we do have the same record that the splenic collection was 7 cm largest diameter, and then 4 cm post IR drain there, and noted that on recent US it is 6.5cm, slightly larger. Agreed to have another IR drain previously; however, 04/01/20 refused drainage due to it being high risk with them needing to pass needle through pleural space. Per Dr. Kent (radiologist), this would put him at increased risk for empyema, pneumothorax. -consulted Dr. Hector, recommended placing back on levaquin/flagyl for enterbacter and discontinuing with vanc and ertapenem, noting that the levaquin is sufficient to cover PNA. -day 4 levaquin, day 2 of flagyl 6. Failure to thrive 2/2 to several acute on chronic issues, multiple recent hospitalizations. Decline this hospital stay. Family met with palliative care. Poor oral intake, nausea likely 2/2 to acute infection/illness above. Residuals high , stopped tube feedings. Discussed with surgery and suggested IR to do G to J tube conversion which will occur on 04/08/20. IR consulted. Not eating from his diet well but will c/w low fat diet, pancreatic enzymes with meals. Encouraging fluids Q2 hrs. Zofran ATC. Palliative care brought up with patient due to health decline, multiple hospitalizations and chronic pain. -G to J tube change today by IR -Remains FULL CODE 7. MARTY on Chronic kidney disease stage III. 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 Hx of MARTY requiring dialysis in 2019. nephrology following. -Avoid nephrotoxic medications, daily labs. 8. History of chronic pancreatitis. Chart mention of autoimmune pancreatitis. lipase, CMP improved. Abdominal pain improving; however, still requiring some morphine PRN. Poor intake, now changed to low fat diet with pancreatic enzymes with meals. 9. Diabetes Mellitus type II. Stable. BS wnl. C/w ISS, AC/HS finger sticks, consistent carb diet. 10. Hx of CVA. C/w plavix, not on statin. 11. Hx of PE/DVT, DVT px. Eliquis BID DISPOSITION: Services consulted on this patient: Nephrology, Interventional Radiology, General Surgery, Palliative Care, ID. VS,Fishbone, I+O VS, Fishbone, I+O Laboratory Tests 04/08/20 05:41 Vital Signs Date Time Temp Pulse Resp B/P (MAP) Pulse Ox O2 Delivery O2 Flow Rate FiO2 04/08/20 08:33 75 113/76 04/08/20 06:00 98.9 18 93 04/07/20 22:00 Room Air 04/07/20 14:00 2.0 I&O- Last 24 Hours up to 6 AM 04/08/20 06:00 Intake Total 1130 ml Output Total 650 ml Balance 480 ml DEREK RUANO MD Apr 08, 2020 09:04
--- NOTE | 2020-04-08 12:39 | REP ---
LIMITED ABDOMINAL ULTRASOUND CLINICAL: Splenic abscess for drainage. TECHNIQUE: Real-time plascencia scale ultrasound examination using curved array transducer. FINDINGS: Directed ultrasound examination demonstrates a left upper quadrant subdiaphragmatic complex collection measuring roughly 4.6 x 2.4 x 4.5 cm, indenting the spleen suggesting the possibility of splenic abscess as per history. Drainage could not be performed due to the lack of appropriate access. IMPRESSION: Complex collection in the left upper quadrant consistent with the given history of splenic abscess. Drainage could not be performed due to inadequate access. MTDD
--- NOTE | 2020-04-08 12:42 | REP ---
CHEST X-RAY TECHNIQUE: AP and lateral. COMPARISON: 03/27/2020. CLINICAL: Congestive heart failure (CHF). FINDINGS: Cardiomegaly is again noted along with stable pacemaker and evidence for prior CABG. The lung patterson demonstrate diffusely increased pulmonary vasculature and interstitial markings with superimposed bilateral lower lobe airspace disease and findings to suggest layering pleural effusions. Differential diagnosis includes CHF/pulmonary edema, as well as multifocal pneumonia. IMPRESSION: Findings as described above suggesting congestive heart failure (CHF)/pulmonary edema. Differential diagnosis includes multifocal pneumonia. MTDD
--- NOTE | 2020-04-08 12:45 | REP ---
PORTABLE CHEST X-RAY CLINICAL: Hypoxia. TECHNIQUE: AP and lateral views of the chest. COMPARISON: 04/01/2020. FINDINGS: Cardiomegaly with diffuse increased interstitial and alveolar infiltrates as well as indistinct pulmonary vasculature and increased interstitial markings. Differential diagnosis includes increasing CHF as well as multifocal pneumonia. Small effusions cannot be excluded. No pneumothorax. Skeletal structures intact. Pacemaker stable. IMPRESSION: Cardiomegaly and increased interstitial markings and bilateral infiltrates. Differential diagnosis includes worsening CHF and multifocal pneumonia. MTDD
--- NOTE | 2020-04-08 12:47 | REP ---
NONCONTRAST CT OF THE CHEST CLINICAL: Shortness of breath. TECHNIQUE: Axial noncontrast images from the thoracic inlet to the upper abdomen with coronal and sagittal reformations. FINDINGS: Marked cardiomegaly, diffuse pulmonary vasculature congestion, bilateral interstitial prominence, ground glass opacities, small scattered consolidations, and moderate pleural effusions (left greater than right) most compatible with advanced CHF. No pneumothorax. Tracheobronchial tree is patent. Atherosclerotic changes to the thoracic aortic and coronary arteries noted. Pacemaker leads identified. No pericardial effusion. Reactive mediastinal and hilar lymph nodes are noted. Musculoskeletal structures demonstrate age-related changes. Limited upper abdomen demonstrates ascites and mesenteric stranding. There appears to be a small encapsulated fluid collection just lateral to the spleen measuring approximately 3.8 x 2.0 x 3.0 cm (images 90-110). Cholelithiasis is also appreciated. IMPRESSION: 1. Cardiomegaly and significant CHF. 2. Upper abdomen demonstrates ascites and mesenteric stranding as well as perisplenic encapsulated fluid collection possibly representing abscess and confirmed by recent ultrasound dated 04/01/2020. [facility]
[2020-04-08 14:00] VITALS: BP 117/77
[2020-04-08] MEDS: LevoFLOXacin IV 250 MG in IV 1 EA IV SCH (17:26)
[2020-04-08 22:00] VITALS: BP 107/67
[2020-04-09] MEDS: metroNIDAZOLE 500 MG in IV 1 EA IV SCH ×2 (04:31→12:03)
[2020-04-09] MEDS: ONDANSETRON 4 MG ORAL DISINTEGRATING TAB PO SCH ×4 (04:31→22:24)
[2020-04-09] MEDS: POLYTRIM OPTH DROPS 10ML OU SCH ×6 (05:42→22:24)
[2020-04-09 06:00] VITALS: BP 108/70
[2020-04-09] MEDS: TIOTROPIUM INHALER/CAPSULE (SPIRIVA) INH SCH (08:00)
[2020-04-09] MEDS: LACTOBACILLUS ACIDOPHILUS CAP (BACID) PO SCH ×2 (08:44→17:40)
[2020-04-09] MEDS: PERCOCET 5MG/325MG TAB PO PRN (08:44)
[2020-04-09] MEDS: ursodioL 300 MG CAP PO SCH ×2 (08:44→22:23)
[2020-04-09] MEDS: CLOPIDOGREL 75 MG TAB PO SCH (08:44)
[2020-04-09] MEDS: AMIODARONE 200 MG TAB (PACERONE) PO SCH ×2 (08:45→22:23)
[2020-04-09] MEDS: FLUoxetine 20 MG CAP PO SCH (08:45)
[2020-04-09] MEDS: CREON-12 CAPSULE PO SCH ×3 (08:45→17:40)
[2020-04-09] MEDS: PANTOPRAZOLE 40MG VIAL (C9113 PER 1) IV SCH (08:45)
[2020-04-09] MEDS: CARVedilol 3.125 MG TAB PO SCH ×2 (08:45→22:24)
[2020-04-09] MEDS: HumaLOG INSULIN (NovoLOG) PER UNIT SC SCH ×4 (08:46→20:43)
[2020-04-09] MEDS: CHLORHEXIDINE GLUCONATE 0.12 % 15ML UDC (PERIDEX ORAL RINSE) SSP SCH ×3 (08:47→22:22)
[2020-04-09] MEDS: NYSTATIN 500,000 U/5 ML SUSP UDC SS SCH ×2 (08:47→16:00)
--- NOTE | 2020-04-09 09:11 | CR ---
DATE OF CONSULTATION: 04/07/2020 Dictated by Bruno Hernández, PGY-3 in conjunction with attending physician, Zahraa Hector M.D. REFERRING PHYSICIAN: Dr. Meek HISTORY OF PRESENT ILLNESS: Mr. Shipman is a 49-year-old male with a past medical history of coronary artery disease status post CABG and stenting, dilated cardiomyopathy with a left ventricular ejection fraction of 20% to 25%, atrial fibrillation, diabetes type 2, hypertension, history CVA, COPD, FROILAN not on CPAP, and chronic pancreatitis possibly related to IgG disease with pseudocyst and colostomy due to multiple surgeries and feeding tube placement. The patient presented to [facility] originally for increased left- sided abdominal pain. The patient was previously hospitalized at [facility] for similar issue, at which point he was identified to have multiple splenic abscesses; the largest one was on the left side measuring 7 x 3.7. The patient has had CT guided drainage of the abscess on February 28 and February 23. The abscess was approximately 4.8 x 3.1 in size. At that time, the patient was seen by infectious disease at [facility]. He was started on Cipro and Flagyl and discharged. The patient was intended to have repeat imaging, as well as follow- up with infectious disease; however, he has since been hospitalized at [facility] for this increased pain on his left side. Repeat imaging demonstrated splenic abscess was essentially unchanged, which measured 5 x 3.5 x 2.0. Initially the patient was noted to have some bilateral patchy opacities in the lung patterson; however, review of the imaging he had at [facility], suggests similar findings. Additionally, the patient is not really complaining of any cough or shortness of breath. He was started on antibiotics for possible healthcare-associated pneumonia including vancomycin, levofloxacin, and ertapenem. Today the patient states that he feels tired. He denies any shortness of breath. He does have a slight cough. He complains of continued pain, which is chronic and no different than his baseline. The patient is accompanied by his fiance who helps provide portions of the history. PAST MEDICAL HISTORY: 1. Coronary artery disease status post CABG and stenting. 2. History of DVT and pulmonary embolism resulting in PEA arrest. 3. Dilated cardiomyopathy with left ventricular ejection fraction 20% to 25%. 4. Atrial fibrillation. 5. Independent diabetes mellitus. 6. Hypertension. 7. Cerebrovascular accident. 8. COPD. 9. FROILAN noncompliant with CPAP. 10. Hyperlipidemia. 11. Depression. 12. 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 PAST SURGICAL HISTORY: 1. Diverting colostomy. 2. PEG tube placement. 3. CT guided splenic abscess drainage. FAMILY HISTORY: Patient denies any family history of autoimmune pancreatitis. SOCIAL HISTORY: Patient denies any alcohol use. He denies any tobacco use, as well as denies any illegal or illicit drugs. P lives at home with his fiance. She helps care for him. He is able to walk; however, most of his ADLs are assisted by his fiance. INPATIENT ANTIBIOTICS: - Levofloxacin 250 mg IV. - Vancomycin 1 gram IV. - Ertapenem 0.5 grams IV. REVIEW OF SYSTEMS: CONSTITUTIONAL: Patient denies any fevers, chills, unintentional weight loss or weight gain. HEENT: Patient admits to a sore throat and mouth. He admits to occasional dysphagia. Admits to occasional cough. CARDIOVASCULAR: Patient denies any chest pain, palpitations, or feelings of heart racing. PULMONARY: Patient denies any shortness of breath. He admits to a chronic cough. He denies any sputum production. Denies any hemoptysis. ABDOMEN: Patient admits to chronic abdominal pain mostly located in the left lower quadrant. He denies any diarrhea or constipation. EXTREMITIES: Patient denies any lower extremity swelling. He admits to a left heel pain. NEUROLOGIC: Patient denies any changes in gait or speech. PSYCHIATRIC: Patient denies any depression or anxiety. HEMATOLOGIC/LYMPHATIC: Patient admits to a history of DVT with pulmonary embolism. ENDOCRINE: Patient denies any heat intolerance or cold intolerance. PHYSICAL EXAMINATION: VITAL SIGNS: Temperature 98.0, pulse 71, respiratory rate 18, blood pressure 115/71, pulse oximetry 96% on 1 liter nasal cannula. GENERAL: Patient appears tired, although he is arousable. He does participate in conversation. He is ill-appearing and quite cachectic appearing as well. HEENT: Atraumatic, normocephalic. Patients eyes are nonicteric. Conjunctivae slightly injected. He has some white patchy areas on his tongue and on his palate consistent with thrush. CARDIOVASCULAR: Normal S1, S2. There is a regular rate and rhythm. No clicks, rubs, or murmurs. No JVD. PULMONARY: Patient has decreased breath sounds overall. There are some scattered rhonchi. There is no wheezing. There are no rales. He has symmetric chest expansion and otherwise good respiratory effort. ABDOMEN: Soft and nondistended. He has a colostomy bag in place with the colostomy site clean. He has a PEG tube in place as well. The PEG tube itself has some black residue throughout the tube. The tube is clamped and not currently in use. There is some slight left lower quadrant tenderness. No rebound tenderness. No guarding. No masses or organomegaly. EXTREMITIES: There is no lower extremity swelling. Patient has a left-sided calcaneal ulcer approximately stage 1 that is currently covered with a bandage. There are no areas of erythema surrounding. NEUROLOGIC: No focal neurological deficits. PSYCHIATRIC: Mood and affect appear appropriate. LABORATORY DATA: Hematology with white blood cell count 0.5, hemoglobin 11.8, hematocrit 37.5, platelet count 281,000. Chemistry with sodium 140, potassium 4.0, chloride 106, carbon dioxide 24, BUN 61, creatinine 2.97, fasting glucose 98, calcium 8.7, total bilirubin 0.9, AST 10, ALT 6, alkaline phosphatase 97. C- reactive protein 4.84, total protein 5.9, albumin 1.8. Microbiology: Blood cultures negative x2. IMAGING: CT abdomen and pelvis demonstrating extensive bilateral lung disease unchanged from previous imaging. Bilateral pleural effusions unchanged. Left upper quadrant splenic subcapsular density collection as previously noted with a splenic abscess measuring 5.0 x 3.5 x 2.0. There is small abdominopelvic ascites and a gastrostomy tube in place with the tip in the gastric cavity. ASSESSMENT AND PLAN: 1. Splenic abscess. Originally the patient had a splenic abscess diagnosed on 12/06/2019. At that time, he had a CT guided abscess drainage and culture, which demonstrated Enterobacter cloacae. The patient was placed on both Cipro and Flagyl on February 13 with an anticipated end treatment date of April 03. Today, the patients abscess is measuring 5.0 x 3.5 x 2.0. The original measurement was 7.0 x 3.7. The patients abscess has essentially been unchanged since his visit to [facility] at which time, it was 4.8 x 3.1. Currently the patient is afebrile. He does not have an elevated white count. There was an attempt at drainage by interventional radiology (IR) today for his splenic abscess; however, they were unsuccessful with being able to successfully drain the abscess. At this time, we would recommend continuing Levofloxacin and Flagyl. Recommend stopping vancomycin and ertapenem. 2. Questionable pneumonia. The patient was presumed to have a healthcare- associated pneumonia; however, it appears that imaging from [facility] in February is unchanged to imaging today. He is not hypoxic and he is not having increased cough from his baseline. It appears his imaging finding of his CT of the chest and chest x-ray is likely secondary to heart failure and atelectasis. Given that he does not appear clinically ill in regards to the pneumonia, we would recommend discontinuing his intravenous (IV) vancomycin and ertapenem. Patient may benefit from incentive spirometry for lung expansion. He does appear deconditioned and likely has atelectasis as well. 3. Oral thrush. Patient has what appears to be oral thrush. We will order swish and swallow. We recommend the patient remove his dentures before using the swish and swallow. [facility]
[2020-04-09 10:57] LABS: HEMATOCRIT 37.7 % (42.0-52.0); HEMOGLOBIN 11.8 g/dl (13.5-17.5); MEAN CORPUSCULAR HEMOGLOBIN 28.6 pg (27.0-33.0); MEAN CORPUSCULAR HGB CONC 31.3 g/dl (32.0-36.5); MEAN CORPUSCULAR VOLUME 91.3 fl (80.0-96.0); PLATELET COUNT, AUTOMATED 322 10^3/uL (150-450); RED BLOOD COUNT 4.13 10^6/uL (4.30-6.10); WHITE BLOOD COUNT 10.6 10^3/uL (4.0-10.0)
--- NOTE | 2020-04-09 11:17 | IPNPDOC ---
Date Seen The patient was seen on 04/09/20. Progress Note SUBJECTIVE: -No changes, continues to feel tired. PHYSICAL EXAMINATION: General: NAD, chronically ill appearing HEENT: PERRLA, EOMI, dentures in place, no noted erythema or eye discharge NECK: supple, no cervical tenderness CHEST: crackles bilateral lower lung patterson, otherwise with poor effort CVS; RRR, no mrg GI: soft, positive normoactive bowel sounds, left upper quadrant tenderness, peg tube in place, no guarding noted. 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 AM labs still pending. Please see below. CT abd/pelvis 04/05/20: 1. Extensive bilateral lung disease, unchanged. 2. Bilateral pleural effusions, unchanged. 3. Left upper quadrant/splenic subcapsular low-density collection, unchanged. 4. Small abdominal and pelvic ascites. 5. Gastrostomy tube present with tip in the gastric cavity ASSESSMENT: 49 y/o M PMH of a history of pancreatitis c/b necrotic pseudocyst s/p drainage, as well as a history of a splenic abscess s/p drainage and abx, ad mitted for abdominal pain and found to have a stably persistent splenic collection, as well as suspicion for PNA and systolic CHF exacerbation. PLAN: 1. Altered mental status, intermittent. Hx of CVA with intermittent confusion but also possibly 2/2 to overall decline, failure to thrive and health care associated PNA. Lethargic still today but not confused. Still requiring 3 L NC (not on home O2), likely 2/2 debility and atelectasis in combination with CHF, unlikely to have PNA. 2. Hypoxemic respiratory failure: WBC without acute impressive leukocytosis, afebrile, cough with increasing O2 demand.. Could possibly have PNA. So will continue levofloxacin started on 04/05 but will dc ertapenem and vanc. -blood cultures x 2 were negative, no sufficient sputum collected, daily CBC downtrending. -Acapella Q2 hrs while awake -supplemental O2 -f/u procalcitonin -covered with levaquin for potential PNA, day 5 3. Acute on chronic systolic CHF with exacerbation. Hx of cardiomyopathy, CABG, s/p AICD and biventricular PM- follows with Dr. Giordano. BNP 158,759, trop neg, no chest pain. He was on furosemide BID before admission here; however, has not been on this medication since admission due to worsening renal failure. -holding off diuresis at this time 4. Conjunctivitis: continue polymixin B/trimethoprim eye drops. 5. Persistent splenic abscess, history of perisplenic/splenic abscess 02/2020, underwent IR drain in [facility] on 02/23, with history of enterobacter species, and placed on cipro and flagyl for weeks. Currently afebrile, WBC wnl. Prior hospitalist before me she had spoke with Dr. Palmer (ID) at [facility], and we do have the same record that the splenic collection was 7 cm largest diameter, and then 4 cm post IR drain there, and noted that on recent US it is 6.5cm, slightly larger. Agreed to have another IR drain previously; however, 04/01/20 refused drainage due to it being high risk with them needing to pass needle through pleural space. Per Dr. Kent (radiologist), this would put him at increased risk for empyema, pneumothorax. -consulted Dr. Hector, recommended placing back on levaquin/flagyl for enterbacter and discontinuing with vanc and ertapenem, noting that the levaquin is sufficient to cover PNA. -day 5 levaquin, day 3 of flagyl 6. Failure to thrive 2/2 to several acute on chronic issues, multiple recent hospitalizations. Decline this hospital stay. Family met with palliative care. Poor oral intake, nausea likely 2/2 to acute infection/illness above. Residuals high , stopped tube feedings. Discussed with surgery and suggested IR to do G to J tube conversion which will occur on 04/08/20. IR consulted. Not eating from his diet well but will c/w low fat diet, pancreatic enzymes with meals. Encouraging fluids Q2 hrs. Zofran ATC. Palliative care brought up with patient due to health decline, multiple hospitalizations and chronic pain. -IR was to convert G to J tube yesterday but noted that his G was surgically/endoscopically placed and actually has a mushroom cap that makes it difficult for IR to remove not being a deflatable balloon. So IR requested I contact surgery to remove the mushroom cap for her to replace G to J. So tube feeds continue to be on hold -Remains FULL CODE 7. MARTY on Chronic kidney disease stage III. 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 Hx of MARTY requiring dialysis in 2019. nephrology following. -Avoid nephrotoxic medications, daily labs. 8. History of chronic pancreatitis. Chart mention of autoimmune pancreatitis. lipase, CMP improved. Abdominal pain improving; however, still requiring some morphine PRN. Poor intake, now changed to low fat diet with pancreatic enzymes with meals. 9. Diabetes Mellitus type II. Stable. BS wnl. C/w ISS, AC/HS finger sticks, consistent carb diet. 10. Hx of CVA. C/w plavix, not on statin. 11. Hx of PE/DVT, DVT px. Eliquis BID DISPOSITION: Services consulted on this patient: Nephrology, Interventional Radiology, General Surgery, Palliative Care, ID. VS, I&O, 24H, Fishbone Vital Signs/I&O Vital Signs Date Time Temp Pulse Resp B/P (MAP) Pulse Ox O2 Delivery O2 Flow Rate FiO2 04/09/20 08:45 84 114/76 04/09/20 08:44 16 94 Nasal Cannula 1.0 04/09/20 06:00 98.0 I&O- Last 24 Hours up to 6 AM 04/09/20 06:00 Intake Total 990 ml Output Total 550 ml Balance 440 ml Laboratory Data Microbiology Microbiology 04/05/20 Blood Culture - Preliminary, Resulted No Growth after 72 hours. All specime... 04/05/20 Eye/Ear/Nose/Throat Culture - Final, Complete 04/05/20 Blood Culture - Preliminary, Resulted No Growth after 72 hours. All specime... DEREK RUANO MD Apr 09, 2020 09:40
[2020-04-09 11:20] LABS: CALCIUM LEVEL 8.3 MG/DL (8.5-10.1); CREATININE FOR GFR 2.99 MG/DL (0.70-1.30); GLOMERULAR FILTRATION RATE 23.7 (>56)
[2020-04-09 14:00] VITALS: BP 111/69
[2020-04-09] MEDS: MORPHINE 2 MG/ML 1ML VIAL (J2270) IV PRN (14:11)
[2020-04-09] MEDS: FLUCONAZOLE 100 MG TAB PO SCH (17:40)
[2020-04-09] MEDS: MEROPENEM INJ 1 GM in IV 1 EA IV SCH (17:40)
[2020-04-09 22:00] VITALS: BP 119/71
[2020-04-09] MEDS: APIXABAN 5 MG TAB (ELIQUIS) PO SCH (22:23)
[2020-04-10] MEDS: ONDANSETRON 4 MG ORAL DISINTEGRATING TAB PO SCH ×4 (05:51→23:00)
[2020-04-10] MEDS: POLYTRIM OPTH DROPS 10ML OU SCH ×6 (05:52→21:39)
[2020-04-10 06:00] VITALS: BP 116/72
[2020-04-10 06:06] LABS: HEMATOCRIT 39.6 % (42.0-52.0); HEMOGLOBIN 12.2 g/dl (13.5-17.5); MEAN CORPUSCULAR HGB CONC 30.8 g/dl (32.0-36.5); PLATELET COUNT, AUTOMATED 322 10^3/uL (150-450); RED BLOOD COUNT 4.35 10^6/uL (4.30-6.10)
[2020-04-10 06:32] LABS: CREATININE FOR GFR 2.89 MG/DL (0.70-1.30)
[2020-04-10 06:33] LABS: C REACTIVE PROTEIN QUANTITATIV 2.58 MG/DL (0.00-0.30); CALCIUM LEVEL 8.5 MG/DL (8.5-10.1); GLOMERULAR FILTRATION RATE 24.6 (>56); POTASSIUM SERUM 4.2 MEQ/L (3.5-5.1)
[2020-04-10] MEDS: TIOTROPIUM INHALER/CAPSULE (SPIRIVA) INH SCH (07:08)
[2020-04-10] MEDS: HumaLOG INSULIN (NovoLOG) PER UNIT SC SCH ×4 (07:30→20:47)
[2020-04-10] MEDS: PANTOPRAZOLE 40MG VIAL (C9113 PER 1) IV SCH (09:10)
[2020-04-10] MEDS: CHLORHEXIDINE GLUCONATE 0.12 % 15ML UDC (PERIDEX ORAL RINSE) SSP SCH ×3 (09:10→21:00)
[2020-04-10] MEDS: FLUoxetine 20 MG CAP PO SCH (09:11)
[2020-04-10] MEDS: CLOPIDOGREL 75 MG TAB PO SCH (09:11)
[2020-04-10] MEDS: LACTOBACILLUS ACIDOPHILUS CAP (BACID) PO SCH ×2 (09:11→18:27)
[2020-04-10] MEDS: FLUCONAZOLE 100 MG TAB PO SCH (09:11)
[2020-04-10] MEDS: CREON-12 CAPSULE PO SCH ×3 (09:11→18:27)
[2020-04-10] MEDS: APIXABAN 5 MG TAB (ELIQUIS) PO SCH ×2 (09:12→21:38)
[2020-04-10] MEDS: AMIODARONE 200 MG TAB (PACERONE) PO SCH ×2 (09:12→21:39)
[2020-04-10] MEDS: CARVedilol 3.125 MG TAB PO SCH ×2 (09:12→21:38)
[2020-04-10] MEDS: ursodioL 300 MG CAP PO SCH ×2 (09:12→21:38)
[2020-04-10] MEDS: PERCOCET 5MG/325MG TAB PO PRN (10:47)
[2020-04-10] MEDS: MORPHINE 2 MG/ML 1ML VIAL (J2270) IV PRN (12:22)
--- NOTE | 2020-04-10 13:05 | IPNPDOC ---
Text Note Date of Service The patient was seen on 04/10/20. NOTE SUBJECTIVE: -No changes, continues to feel tired. -On speaking with ID, she reviewed scan with radiology and it remains risky to drain the abscess, therefore for now she decided to broaden antibiotics and not pursue drainage PHYSICAL EXAMINATION: General: NAD, chronically ill appearing, cachectic HEENT: PERRLA, EOMI, dentures in place, no noted erythema or eye discharge, dry MM NECK: supple, no cervical tenderness CHEST: crackles bilateral lower lung patterson, otherwise with poor effort CVS; RRR, no mrg GI: soft, positive normoactive bowel sounds, left upper quadrant tenderness, peg tube in place, no guarding noted. 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 Please see below. WBC 11 Hgb 12.2 platelets 322 na 138 [address] 4[address] abd/pelvis 04/05/20: 1. Extensive bilateral lung disease, unchanged. 2. Bilateral pleural effusions, unchanged. 3. Left upper quadrant/splenic subcapsular low-density collection, unchanged. 4. Small abdominal and pelvic ascites. 5. Gastrostomy tube present with tip in the gastric cavity ASSESSMENT: 49 y/o M PMH of a history of pancreatitis c/b necrotic pseudocyst s/p drainage, as well as a history of a splenic abscess s/p drainage and abx, admitted for abdominal pain and found to have a persistent splenic collection, as well as suspicion for PNA and systolic CHF exacerbation. PLAN: 1. Altered mental status, intermittent. Hx of CVA with intermittent confusion but also possibly 2/2 to overall decline, failure to thrive and health care associated PNA. Lethargic still today but not confused. Still requiring 3 L NC (not on home O2), likely 2/2 debility and atelectasis in combination with CHF, unlikely to have PNA. 2. Hypoxemic respiratory failure: WBC without acute impressive leukocytosis, afebrile, cough with increasing O2 demand.. Could possibly have PNA. So will continue levofloxacin started on 04/05 but will dc ertapenem and vanc. -blood cultures x 2 were negative, no sufficient sputum for collection, daily CBC downtrending. -Acapella Q2 hrs while awake -supplemental O2 -has been on antibiotics for 6 days now that cover PNA while covering his splenic abscess 3. Acute on chronic systolic CHF with exacerbation. Hx of cardiomyopathy, CABG, s/p AICD and biventricular PM- follows with Dr. Giordano. BNP 158,759, trop neg, no chest pain. He was on furosemide BID before admission here; however, has not been on this medication since admission due to worsening renal failure. -holding off diuresis at this time, poor PO, does not appear overloaded, likely proBNP is a consequent of dilated CM 4. Conjunctivitis: continue polymixin B/trimethoprim eye drops. -continue eye drops until 04/13 as planned 5. Persistent splenic abscess, history of perisplenic/splenic abscess 02/2020, underwent IR drain in [facility] on 02/23, with history of enterobacter species, and placed on cipro and flagyl for weeks. Currently afebrile, WBC wnl. Prior hospitalist before me she had spoke with Dr. Palmer (ID) at [facility], and we do have the same record that the splenic collection was 7 cm largest diameter, and then 4 cm post IR drain there, and noted that on recent US it is 6.5cm, slightly larger. Agreed to have another IR drain previously; however, 04/01/20 refused drainage due to it being high risk with them needing to pass needle through pleural space. Per Dr. Kent (radiologist), this would put him at increased risk for empyema, pneumothorax. -consulted Dr. Hector -ID, dc'd levaquin flagyl and broadened to meropenem and also giving fluconazole for thrush. Day 2 of meropenem 6. Failure to thrive 2/2 to several acute on chronic issues, multiple recent hospitalizations. Decline this hospital stay. Family met with palliative care. Poor oral intake, nausea likely 2/2 to acute infection/illness above. Residuals high , stopped tube feedings. Discussed with surgery and suggested IR to do G to J tube conversion which will occur on 04/08/20. IR consulted. Not eating from his diet well but will c/w low fat diet, pancreatic enzymes with meals. Encouraging fluids Q2 hrs. Zofran ATC. Palliative care brought up with patient due to health decline, multiple hospitalizations and chronic pain. -IR was to convert G to J tube yesterday but noted that his G was surgically/endoscopically placed and actually has a mushroom cap that makes it difficult for IR to remove not being a deflatable balloon. So IR requested I contact surgery to remove the mushroom cap for her to replace G to J. So tube feeds continue to be on hold -Remains FULL CODE -Will pursue PICC line for TPN given prolonged anorexia 7. MARTY on Chronic kidney disease stage III. 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 Hx of MARTY requiring dialysis in 2019. nephrology following. -Avoid nephrotoxic medications, daily labs. 8. History of chronic pancreatitis. Chart mention of autoimmune pancreatitis. lipase, CMP improved. Abdominal pain improving; however, still requiring some morphine PRN. Poor intake, now changed to low fat diet with pancreatic enzymes with meals. 9. Diabetes Mellitus type II. Stable. BS wnl. C/w ISS, AC/HS finger sticks, consistent carb diet. 10. Hx of CVA. C/w plavix, not on statin. 11. Hx of PE/DVT, DVT px. Eliquis BID DISPOSITION: Services consulted on this patient: Nephrology, Interventional Radiology, General Surgery, Palliative Care, ID. VS,Fishbone, I+O VS, Fishbone, I+O Laboratory Tests 04/09/20 10:21 04/10/20 05:34 Vital Signs Date Time Temp Pulse Resp B/P (MAP) Pulse Ox O2 Delivery O2 Flow Rate FiO2 04/10/20 09:12 77 120/78 04/10/20 06:00 98.1 15 90 Nasal Cannula 1.0 I&O- Last 24 Hours up to 6 AM 04/10/20 06:00 Intake Total 420 ml Output Total 475 ml Balance -55 ml DEREK RUANO MD Apr 10, 2020 09:43
[2020-04-10] MEDS ORDERED: LIDOCAINE 1% MDV 20ML VIAL As Ordered ONE (13:07)
[2020-04-10 14:00] VITALS: BP 117/73
--- NOTE | 2020-04-10 16:11 | IPN ---
DATE: 04/09/2020 Dae is laying in bed complaining of left upper quadrant pain mostly in the flank area. He had an attempt to change the gastrostomy (G) tube but the tube that we had in interventional radiology (IR) was not compatible with what he has and I think he needs to have surgery done to change his gastrostomy tube to a gastrojejunostomy (GJ) tube. He has had no fever or chills. He has a cough. He is slightly hypoxic on room air with oxygen saturation at 91%. Temperature is 97.7, pulse 69, respirations 16, blood pressure 111/69, oxygen saturation 91-94% on room air. LABORATORY DATA: Sodium 137, potassium 4, chloride 106, bicarbonate 23, BUN 57, creatinine 2.9, glucose 210, calcium 8.3, CRP 4.84, white count 10.6, hemoglobin 11.8, hematocrit 37.7, platelets 322. ANCA was negative, CHRISTI negative, anti-Smooth muscle antibody negative. MRSA PCR detected. Blood cultures from 04/05/2020, two sets, are no growth. Eye culture was negative. CT abdomen and pelvis was done on 04/05/2020 and was reviewed with Dr. Hamilton. There is extensive bilateral lung disease, bilateral pleural effusions, there are unchanged. There is a left upper quadrant splenic subcapsular collection which according to Dr. Hamilton has decreased in size from a CT that was done 2 weeks prior. MEDICADTIONS: - levofloxacin 250 mg IV every 24 hours - Flagyl 500 mg IV every 8 hours - nystatin 5 mL three times a day, the patient is refusing, he does not like the taste PHYSICAL EXAMINATION: Heart: Normal S1, S2, systolic ejection murmur 2/6. Lungs: Diffuse, few crackles bilaterally at the bases. Oropharynx with thrush. Abdomen: Tender in the left upper quadrant. Gastrostomy tube in place, nontender, the tube has black drainage. Extremities: +1 pitting edema bilaterally. IMPRESSION: Splenic abscess status post drainage procedure at [facility] in February. Culture was positive for Enterobacter. The patient has been on Levaquin, quinolones, and Flagyl for the past 7 weeks. The patient has a persistent abscess. I did discuss the case with Dr. Hamilton whether another procedure could be done to see if there is resistant pathogens or possibly fungal elements. It is very risky as he will need to have to go through the pleural space and increase the risk of pneumothorax. PLAN: Will try to broaden antibiotics to meropenem 1 gram at bedtime along with fluconazole 200 mg by mouth daily to cover for possible fungal bonita infection of the spleen plus also for his thrush as he has been refusing nystatin. Black discoloration of gastrostomy (G) tube, I suspect this is related more to the metronidazole and staining of the tubing than any other problem. He is being scheduled for a change to gastrojejunostomy tube. Case has been discussed with Dr. Cooney as well as with Dr. Hamilton and CT has been reviewed. Continue to monitor complete blood count (CBC), C-reactive protein (CRP), erythrocyte sedimentation rate (ESR) every couple days. MTDD
[2020-04-10] MEDS ORDERED: FAT EMULSION IV 20% 500 ML IV SCH (18:00)
[2020-04-10] MEDS ORDERED: MULTIVITAMIN -ADULT INJECTION 10 ML, CR/CU/SE/MN/ZN INJ 1 ML in AMINO AC/ELECTROLYTE/DE... IV SCH (18:00)
[2020-04-10] MEDS: MEROPENEM INJ 1 GM in IV 1 EA IV SCH (21:38)
[2020-04-10 22:00] VITALS: BP 118/75
[2020-04-11] MEDS: MORPHINE 2 MG/ML 1ML VIAL (J2270) IV PRN ×2 (03:07→09:50)
[2020-04-11] MEDS: ONDANSETRON 4 MG ORAL DISINTEGRATING TAB PO SCH ×4 (04:53→21:51)
[2020-04-11] MEDS: PERCOCET 5MG/325MG TAB PO PRN ×2 (05:53→12:24)
[2020-04-11] MEDS: SODIUM CHLORIDE 0.9% INJ 10 ML SYR IV SCH ×2 (05:54→17:50)
[2020-04-11] MEDS: POLYTRIM OPTH DROPS 10ML OU SCH ×6 (05:55→21:52)
[2020-04-11 06:00] VITALS: BP 114/77
[2020-04-11 07:09] LABS: HEMATOCRIT 41.4 % (42.0-52.0); MEAN CORPUSCULAR HGB CONC 31.4 g/dl (32.0-36.5); MEAN CORPUSCULAR VOLUME 92.2 fl (80.0-96.0); PLATELET COUNT, AUTOMATED 374 10^3/uL (150-450); RED BLOOD COUNT 4.49 10^6/uL (4.30-6.10); WHITE BLOOD COUNT 12.6 10^3/uL (4.0-10.0)
[2020-04-11 07:47] LABS: CALCIUM LEVEL 8.4 MG/DL (8.5-10.1); CREATININE FOR GFR 3.09 MG/DL (0.70-1.30); GLOMERULAR FILTRATION RATE 22.8 (>56); POTASSIUM SERUM 5.5 MEQ/L (3.5-5.1)
[2020-04-11] MEDS: TIOTROPIUM INHALER/CAPSULE (SPIRIVA) INH SCH (07:59)
[2020-04-11] MEDS: SODIUM CHLORIDE 0.9% INJ 10 ML SYR IV PRN ×3 (08:16→16:27)
[2020-04-11] MEDS: PANTOPRAZOLE 40MG VIAL (C9113 PER 1) IV SCH (08:16)
[2020-04-11] MEDS: HumaLOG INSULIN (NovoLOG) PER UNIT SC SCH ×4 (08:16→21:00)
[2020-04-11] MEDS: FLUCONAZOLE 100 MG TAB PO SCH (08:17)
[2020-04-11] MEDS: FLUoxetine 20 MG CAP PO SCH (08:17)
[2020-04-11] MEDS: AMIODARONE 200 MG TAB (PACERONE) PO SCH ×2 (08:17→21:51)
[2020-04-11] MEDS: ursodioL 300 MG CAP PO SCH ×2 (08:17→21:51)
[2020-04-11] MEDS: CREON-12 CAPSULE PO SCH ×3 (08:17→17:49)
[2020-04-11] MEDS: CLOPIDOGREL 75 MG TAB PO SCH (08:17)
[2020-04-11] MEDS: LACTOBACILLUS ACIDOPHILUS CAP (BACID) PO SCH ×2 (08:17→17:49)
[2020-04-11] MEDS: APIXABAN 5 MG TAB (ELIQUIS) PO SCH ×2 (08:17→21:51)
[2020-04-11] MEDS: CHLORHEXIDINE GLUCONATE 0.12 % 15ML UDC (PERIDEX ORAL RINSE) SSP SCH ×3 (08:22→21:00)
[2020-04-11] MEDS: CARVedilol 3.125 MG TAB PO SCH ×2 (08:22→21:52)
[2020-04-11 14:00] VITALS: BP 124/86
--- NOTE | 2020-04-11 15:47 | REPVR ---
PROCEDURE INFORMATION: Exam: CT Abdomen And Pelvis Without Contrast Exam date and time: 04/11/2020 2:55 PM Age: 49 years old Clinical indication: Abdominal pain; Localized; Lower; Additional info: Worsening L abd pain TECHNIQUE: Imaging protocol: Computed tomography of the abdomen and pelvis without contrast. Radiation optimization: All CT scans at this facility use at least one of these dose optimization techniques: automated exposure control; mA and/or kV adjustment per patient size (includes targeted exams where dose is matched to clinical indication); or iterative reconstruction. COMPARISON: CT ABD PELVIS W/O CONTRAST 04/05/2020 6:37 PM FINDINGS: Tubes, catheters and devices: There is a gastrostomy tube in place. Lungs: There is been interval increase in right basilar consolidation. There is airspace disease through the remaining pulmonary parenchyma. Pleural space: There are bilateral pleural effusions left greater than right. Liver: Normal. No mass. Gallbladder and bile ducts: Gallstone and sludge. No ductal dilation. Pancreas: There is poor definition of the pancreatic head and tail. A pancreatic mass cannot be excluded. Spleen: There is a stable 3.5 cm region of fluid adjacent to the left hemidiaphragm and spleen seen best on image 42 of series 201. Adrenals: Normal. No mass. Kidneys and ureters: Normal. No hydronephrosis. Stomach and bowel: There is a right lower quadrant ostomy. Appendix: No evidence of appendicitis. Intraperitoneal space: There is stable ascites. Vasculature: There are coronary artery calcifications. There is athrosclerotic disease involving the abdominal aorta and pelvis vessels without an aneurysm. Lymph nodes: No enlarged lymph nodes. Bladder: Unremarkable as visualized. Reproductive: Unremarkable as visualized. Bones/joints: No acute fracture. Soft tissues: Unremarkable. Other findings: There is partial visualization of pacing wires. IMPRESSION: 1. Interval increase in bibasilar consolidation. 2. No change in the abdomen or pelvis. Multiple abnormalities as previously noted. Electronically signed by: Dl Castro On 04/11/2020 15:47:19 PM
[2020-04-11] MEDS ORDERED: FUROSEMIDE 20MG/2ML VIAL (J1940) IV ONE (17:00)
--- NOTE | 2020-04-11 17:30 | IPNPDOC ---
Text Note Date of Service The patient was seen on 04/11/20. NOTE SUBJECTIVE: -Started him on TPN yesterday -This afternoon is lethargic, with increasing hypoxemia and reporting worsening LUQ pain PHYSICAL EXAMINATION: General: NAD, chronically ill appearing, cachectic, lethargic HEENT: PERRLA, EOMI, dentures in place, no noted erythema or eye discharge, dry MM NECK: supple, no cervical tenderness CHEST: crackles bilateral lower lung patterson, otherwise with poor effort CVS; RRR, no mrg GI: soft, positive normoactive bowel sounds, left upper quadrant tenderness, peg tube in place, no guarding noted. EXTREMITIES: no limitation of ROM, no leg edema, no joint swelling, no calf tenderness, no atrophy SPOUT TENDER; awake, alert, oriented x 3 CN II-XII grossly intact, no focal sensory or motor deficits LABORATORY DATA, IMAGING STUDIES, MICROBIOLOGY: Reviewed. Please see below. WBC 11 Hgb 12.2 platelets 322 na 138 K 4[address] abd/pelvis 04/05/20: 1. Extensive bilateral lung disease, unchanged. 2. Bilateral pleural effusions, unchanged. 3. Left upper quadrant/splenic subcapsular low-density collection, unchanged. 4. Small abdominal and pelvic ascites. 5. Gastrostomy tube present with tip in the gastric cavity CT A/P : 1. Interval increase in bibasilar consolidation 2. No change in the abdomen or pelvis. Multiple abnormalities as previously noted ASSESSMENT: 49 y/o M PMH of a history of pancreatitis c/b necrotic pseudocyst s/p drainage, as well as a history of a splenic abscess s/p drainage and abx, admitted for abdominal pain and found to have a persistent splenic collection, as well as suspicion for PNA and systolic CHF exacerbation with course c/b hypoxemic respiratory failure, anorexia with inability to tolerate much PO or tube feeds, recently started on TPN c/b worsening hypoxemia likely from the volume. PLAN: 1. Altered mental status, intermittent. Hx of CVA with intermittent confusion but also possibly 2/2 to overall decline, failure to thrive and health care associated PNA. Lethargic still today, mildly confused, redirectable. - likely 2/2 debility and atelectasis in combination with CHF 2. Hypoxemic respiratory failure: WBC with mildly worsening leukocytosis, however afebrile with increasing O2 demand since being started on TPN -blood cultures x 2 were negative, no sufficient sputum for collection, daily CBC -Acapella Q2 hrs while awake -supplemental O2 -has been on antibiotics for 7 days now that cover PNA while covering his splenic abscess -lasix 20 IV this morning. Will giev lasix 40 IV this evening 3. Acute on chronic systolic CHF with exacerbation. Hx of cardiomyopathy, CABG, s/p AICD and biventricular PM- follows with Dr. Giordano. BNP 158,759, trop neg, no chest pain. He was on furosemide BID before admission here; however, has not been on this medication since admission due to worsening renal failure. -lasix 40 IV x 1 4. Conjunctivitis: continue polymixin B/trimethoprim eye drops. -continue eye drops until 04/13 as planned 5. Persistent splenic abscess, history of perisplenic/splenic abscess 02/2020, underwent IR drain in [facility] on 02/23, with history of enterobacter species, and placed on cipro and flagyl for weeks. Currently afebrile, WBC wnl. Prior hospitalist before me she had spoke with Dr. Palmer (ID) at [facility], and we do have the same record that the splenic collection was 7 cm largest diameter, and then 4 cm post IR drain there, and noted that on recent US it is 6.5cm, slightly larger. Agreed to have another IR drain previously; however, 04/01/20 refused drainage due to it being high risk with them needing to pass needle through pleural space. Per Dr. Kent (radiologist), this would put him at increased risk for empyema, pneumothorax. -consulted Dr. Hector -ID broadened to meropenem and also giving fluconazole for thrush. Day 3 of meropenem 6. Failure to thrive 2/2 to several acute on chronic issues, multiple recent hospitalizations. Decline this hospital stay. Family met with palliative care. Poor oral intake, nausea likely 2/2 to acute infection/illness above. Residuals high , stopped tube feedings. Discussed with surgery and suggested IR to do G to J tube conversion which will occur on 04/08/20. IR consulted. Not eating from his diet well but will c/w low fat diet, pancreatic enzymes with meals. Encouraging fluids Q2 hrs. Zofran ATC. Palliative care brought up with patient due to health decline, multiple hospitalizations and chronic pain. -IR was to convert G to J tube yesterday but noted that his G was surgically/endoscopically placed and actually has a mushroom cap that makes it difficult for IR to remove not being a deflatable balloon. So IR requested I contact surgery to remove the mushroom cap for her to replace G to J. He is incredibly weak and debilitated. So tube feeds continue to be on hold -Remains FULL CODE -s/p PICC line for TPN given prolonged anorexia, however TPN now on hold given lethargy, AMS and worsening hypoxemia. 7. MARTY on Chronic kidney disease stage III. 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 Hx of MARTY requiring dialysis in 2019. nephrology signed off. -Avoid nephrotoxic medications, daily labs. 8. History of chronic pancreatitis. Chart mention of autoimmune pancreatitis. lipase, CMP improved. Abdominal pain improving; however, still requiring some morphine PRN. Poor intake, now changed to low fat diet with pancreatic enzymes with meals. 9. Diabetes Mellitus type II. Stable. BS wnl. C/w ISS, AC/HS finger sticks, consistent carb diet. 10. Hx of CVA. C/w plavix, not on statin. 11. Hx of PE/DVT, DVT px. Eliquis BID DISPOSITION: Services consulted on this patient: Nephrology, Interventional Radiology, General Surgery, Palliative Care, ID. VS,Kami, I+O VS, Kami, I+O Laboratory Tests 04/11/20 06:54 Vital Signs Date Time Temp Pulse Resp B/P (MAP) Pulse Ox O2 Delivery O2 Flow Rate FiO2 04/11/20 13:00 16 Nasal Cannula 1.0 04/11/20 09:50 90 04/11/20 08:22 85 113/60 04/11/20 06:00 97.9 I&O- Last 24 Hours up to 6 AM 04/11/20 06:00 Intake Total 2295 ml Output Total 500 ml Balance 1795 ml DEREK RUANO MD Apr 11, 2020 17:30
[2020-04-11] MEDS ORDERED: FAT EMULSION IV 20% 500 ML IV SCH (18:00)
[2020-04-11] MEDS ORDERED: AMINO AC/ELECTROLYTE/DEX/CALC 2,000 ML IV SCH (18:00)
[2020-04-11 18:50] VITALS: O2SAT 93
[2020-04-11 21:00] VITALS: O2SAT 91
[2020-04-11] MEDS: MEROPENEM INJ 1 GM in IV 1 EA IV SCH (21:51)
[2020-04-11 22:00] VITALS: BP 122/86
[2020-04-12] VITALS (12 sets, daily range): BP systolic 101–124; BP diastolic 57–83; O2SAT 92
[2020-04-12] MEDS ORDERED: FUROSEMIDE 20MG/2ML VIAL (J1940) IV ONE (00:30)
[2020-04-12] MEDS: ONDANSETRON 4 MG ORAL DISINTEGRATING TAB PO SCH ×3 (04:43→17:04)
[2020-04-12] MEDS: POLYTRIM OPTH DROPS 10ML OU SCH ×6 (06:12→21:01)
[2020-04-12] MEDS: SODIUM CHLORIDE 0.9% INJ 10 ML SYR IV SCH ×2 (06:12→17:05)
[2020-04-12 07:01] LABS: HEMATOCRIT 39.5 % (42.0-52.0); HEMOGLOBIN 12.6 g/dl (13.5-17.5); MEAN CORPUSCULAR HEMOGLOBIN 28.7 pg (27.0-33.0); MEAN CORPUSCULAR HGB CONC 31.9 g/dl (32.0-36.5); PLATELET COUNT, AUTOMATED 345 10^3/uL (150-450); RED BLOOD COUNT 4.39 10^6/uL (4.30-6.10); WHITE BLOOD COUNT 19.9 10^3/uL (4.0-10.0)
[2020-04-12 07:27] LABS: CREATININE FOR GFR 3.03 MG/DL (0.70-1.30); GLOMERULAR FILTRATION RATE 23.3 (>56); POTASSIUM SERUM 4.8 MEQ/L (3.5-5.1)
[2020-04-12 07:28] LABS: CALCIUM LEVEL 8.7 MG/DL (8.5-10.1)
[2020-04-12] MEDS: HumaLOG INSULIN (NovoLOG) PER UNIT SC SCH ×4 (07:30→21:00)
[2020-04-12] MEDS: IPRATROPIUM 0.5MG/ALBUTEROL 2.5MG INH SOL UD 3ML (DUONEB) NEB SCH ×2 (07:54→19:36)
[2020-04-12] MEDS: TIOTROPIUM INHALER/CAPSULE (SPIRIVA) INH SCH (07:55)
[2020-04-12] MEDS: CHLORHEXIDINE GLUCONATE 0.12 % 15ML UDC (PERIDEX ORAL RINSE) SSP SCH ×3 (09:00→21:00)
[2020-04-12] MEDS: PANTOPRAZOLE 40MG VIAL (C9113 PER 1) IV SCH (09:19)
[2020-04-12] MEDS: SODIUM CHLORIDE 0.9% INJ 10 ML SYR IV PRN ×2 (09:19→10:58)
[2020-04-12] MEDS: AMIODARONE 200 MG TAB (PACERONE) PO SCH ×2 (09:19→21:01)
[2020-04-12] MEDS: CREON-12 CAPSULE PO SCH ×3 (09:20→17:14)
[2020-04-12] MEDS: FLUoxetine 20 MG CAP PO SCH (09:20)
[2020-04-12] MEDS: CARVedilol 3.125 MG TAB PO SCH ×2 (09:20→21:01)
[2020-04-12] MEDS: LACTOBACILLUS ACIDOPHILUS CAP (BACID) PO SCH ×2 (09:20→17:14)
[2020-04-12] MEDS: FLUCONAZOLE 100 MG TAB PO SCH (09:20)
[2020-04-12] MEDS: ursodioL 300 MG CAP PO SCH ×2 (09:20→21:00)
[2020-04-12] MEDS: CLOPIDOGREL 75 MG TAB PO SCH (09:20)
[2020-04-12] MEDS: APIXABAN 5 MG TAB (ELIQUIS) PO SCH ×2 (09:21→21:01)
[2020-04-12] MEDS: PERCOCET 5MG/325MG TAB PO PRN (09:22)
[2020-04-12] MEDS ORDERED: VANCOMYCIN HCL 1,000 MG in IV FLUID PLACE HOLDER 1 EA IV SCH (10:30)
[2020-04-12] MEDS ORDERED: FUROSEMIDE 40MG/4ML VIAL (J1940) IV ONE (11:00)
[2020-04-12] MEDS ORDERED: VANCOMYCIN HCL 1,000 MG, VIAL MATE ADAPTER 1 EACH in D5W 250 ML IV ONE (12:00)
[2020-04-12 13:35] LABS: ABG BASE EXCESS -4.1 (-2.0-2.0); ABG HCO3 20.1 MEQ/L (22.0-26.0); ABG O2 SATURATION 94.2 % (95.0-99.0); ABG PARTIAL PRESSURE O2 73.6 mmHg (75.0-100.0); ABG TOTAL CO2 21.1 MEQ/L (22.0-29.0); ABG pH (ARTERIAL) 7.389 UNITS (7.350-7.450)
--- NOTE | 2020-04-12 14:27 | IPNPDOC ---
Text Note Date of Service The patient was seen on 04/12/20. NOTE SUBJECTIVE: -Worsening hypoxemia since starting TPN, now stopped, and diuresing PHYSICAL EXAMINATION: General: NAD, chronically ill appearing, cachectic, lethargic HEENT: PERRLA, EOMI, dentures in place, no noted erythema or eye discharge, dry MM NECK: supple, no cervical tenderness CHEST: crackles bilateral lower lung patterson, otherwise with poor effort CVS; RRR, no mrg GI: soft, positive normoactive bowel sounds, left upper quadrant tenderness, peg tube in place, no guarding noted. 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 Please see below. WBC 19.9 Hgb 12.6 platelets 345 na 138 K 4[address] abd/pelvis 04/05/20: 1. Extensive bilateral lung disease, unchanged. 2. Bilateral pleural effusions, unchanged. 3. Left upper quadrant/splenic subcapsular low-density collection, unchanged. 4. Small abdominal and pelvic ascites. 5. Gastrostomy tube present with tip in the gastric cavity CT A/P : 1. Interval increase in bibasilar consolidation 2. No change in the abdomen or pelvis. Multiple abnormalities as previously noted ASSESSMENT: 49 y/o M PMH of a history of pancreatitis c/b necrotic pseudocyst s/p drainage, as well as a history of a splenic abscess s/p drainage and abx, admitted for abdominal pain and found to have a persistent splenic collection, as well as suspicion for PNA and systolic CHF exacerbation with course c/b hypoxemic respiratory failure, anorexia with inability to tolerate much PO or tube feeds, recently started on TPN c/b worsening hypoxemia and worsening bibasilar opacities and worsening leukocytosis. PLAN: 1. Altered mental status, intermittent. Hx of CVA with intermittent confusion but also possibly 2/2 to overall decline, failure to thrive and health care associated PNA. Lethargic still today, mildly confused, redirectable. - likely 2/2 debility and atelectasis in combination with CHF and sepsis -ABG 2. Hypoxemic respiratory failure: Leukocytosis with increasing O2 demand since being started on TPN and worsening bibasilar opacities, concern for HCAP, possibly MRSA. -blood cultures x 2 were negative, no sufficient sputum for collection, daily CBC -Acapella Q2 hrs while awake -supplemental O2 -has been on antibiotics for 8 days now, however without MRSA coverage and is MRSA+. So will add vancomycin to meropenem. day 1 of vanc, day 5 of king -lasix 40 IV this morning. -transfer to ICU for worsening hypoxemia, consulted pulm for potential worsening hypoxemic respiratory failure that may end up requiring invasive methods of ventilation 3. Acute on chronic systolic CHF with exacerbation. Hx of cardiomyopathy, CABG, s/p AICD and biventricular PM- follows with Dr. Giordano. BNP 158,759, trop neg, no chest pain. He was on furosemide BID before admission here; however, has not been on this medication since admission due to worsening renal failure. -lasix 40 IV 4. Conjunctivitis: continue polymixin B/trimethoprim eye drops. -continue eye drops until 04/13 as planned 5. Persistent splenic abscess, history of perisplenic/splenic abscess 02/2020, underwent IR drain in [facility] on 02/23, with history of enterobacter species, and placed on cipro and flagyl for weeks. Currently afebrile, WBC wnl. Prior hospitalist before me she had spoke with Dr. Palmer (ID) at [facility], and we do have the same record that the splenic collection was 7 cm largest diameter, and then 4 cm post IR drain there, and noted that on recent US it is 6.5cm, slightly larger. Agreed to have another IR drain previously; however, 04/01/20 refused drainage due to it being high risk with them needing to pass needle through pleural space. Per Dr. Kent (radiologist), this would put him at increased risk for empyema, pneumothorax. -consulted Dr. Hector -ID broadened to meropenem and also giving fluconazole for thrush. Day 5 of meropenem 6. Failure to thrive 2/2 to several acute on chronic issues, multiple recent hospitalizations. Decline this hospital stay. Family met with palliative care. Poor oral intake, nausea likely 2/2 to acute infection/illness above. Residuals high , stopped tube feedings. Discussed with surgery and suggested IR to do G to J tube conversion which will occur on 04/08/20. IR consulted. Not eating from his diet well but will c/w low fat diet, pancreatic enzymes with meals. Encouraging fluids Q2 hrs. Tello ATC. Palliative care brought up with patient due to health decline, multiple hospitalizations and chronic pain. -IR was to convert G to J tube yesterday but noted that his G was surgically/endoscopically placed and actually has a mushroom cap that makes it d ifficult for IR to remove not being a deflatable balloon. So IR requested I contact surgery to remove the mushroom cap for her to replace G to J. He is incredibly weak and debilitated. So tube feeds continue to be on hold -Remains FULL CODE. I keep having daily GOC discussions with Mr. Shipman and his fiance and he does not participate actively frankly and she has been leading the decision to continue FULL CODE at this time. Will attempt to have another discussion this afternoon. -s/p PICC line for TPN given prolonged anorexia, however TPN now on hold given lethargy, AMS and worsening hypoxemia. 7. MARTY on Chronic kidney disease stage III. 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 Hx of MARTY requiring dialysis in 2019. nephrology signed off. -Avoid nephrotoxic medications, daily labs. 8. History of chronic pancreatitis. Chart mention of autoimmune pancreatitis. lipase, CMP improved. Abdominal pain improving; however, still requiring some morphine PRN. Poor intake, now changed to low fat diet with pancreatic enzymes with meals. 9. Diabetes Mellitus type II. Stable. BS wnl. C/w ISS, AC/HS finger sticks, consistent carb diet. 10. Hx of CVA. C/w plavix, not on statin. 11. Hx of PE/DVT, DVT px. Eliquis BID DISPOSITION: Services consulted on this patient: Nephrology, Interventional Radiology, General Surgery, Palliative Care, ID. VS,Fishbone, I+O VS, Fishbone, I+O Laboratory Tests 04/12/20 06:38 Vital Signs Date Time Temp Pulse Resp B/P (MAP) Pulse Ox O2 Delivery O2 Flow Rate FiO2 04/12/20 10:00 17 90 High Flow Cannula 6.0 04/12/20 09:35 97.6 74 04/12/20 09:20 120/82 I&O- Last 24 Hours up to 6 AM 04/12/20 06:00 Intake Total 380 ml Output Total 1075 ml Balance -695 ml DEREK RUANO MD Apr 12, 2020 10:30
--- NOTE | 2020-04-12 16:33 | IPN ---
DATE: 04/10/2020 ATTENDING PHYSICIAN: Zahraa Hector MD SUBJECTIVE: Patient is seen and examined this morning. There is no adverse events reported overnight. The patient continues to complain of feeling tired as well as having left-sided pain. The patients imaging was reviewed with radiology who suggest that the size of the abscess is actually smaller than it was in previous imaging. Currently, he is receiving meropenem. He had fluconazole added as he has oral thrush which he was unable to tolerate swish and swallow due to the taste. However, the fluconazole may also cover possible fungal infections as well in the sake of an abscess. OBJECTIVE: Vital signs: Temperature 98.1, pulse 74, respiratory rate 15, blood pressure 1116/72, pulse oximetry 90% on one liter nasal cannula. General: Patient is awake, he is alert, does not appear in any acute distress. He does appear frail and tired. HEENT: Atraumatic, normocephalic. Patients eyes are nonicteric. His trachea is midline. He does have white plaques with thrush on the palate and tongue. Cardiovascular: Normal S1, S2, regular rate and rhythm. No clicks, rubs, or murmurs. Pulmonary: Patient has decreased breath sounds throughout. No wheezes, rhonchi, or rales. Good respiratory effort. Abdominal: Soft, nondistended. He has tenderness in the left lower quadrant and flank area. He has a percutaneous gastrostomy tube (PEG) tube in place. The PEG tube has some black residue in it. Patient also has a colostomy bag with a colostomy site that appears clean. Extremities: No edema. Full and equal pulses bilaterally. Patient has a left- sided stage 1-2 pressure ulcer currently bandaged. Neurologic: No focal neurological deficits. Psychiatric: Mood and affect appear appropriate. LABORATORY DATA: Hematology: White blood cell 11.0, hemoglobin 12.2, hematocrit 39.6, platelet count 322. Chemistry: Sodium 138, potassium 4.2, chloride 107, carbon dioxide 23, creatinine 2.89, calcium 8.5. C-reactive protein 2.58. INPATIENT ANTIBIOTICS: - meropenem 1 gram every night - fluconazole 200 mg by mouth daily ASSESSMENT AND PLAN: 1. Splenic abscess. Patient has a history of a splenic abscess dating back to 12/06/2019. The original size of the abscess was 7 x 3.7. The most recent imaging demonstrated the size as 4.8 x 3.1. He had previously been on Cipro/Flagyl for this and was planned to have re-imaging, however was re- hospitalized. Patient had attempted interventional radiology (IR) drainage for this, however was unable to have the abscess drained due to its location and risk of having a pneumothorax. However, the abscess does not appear to be any larger than before. The patient has previously been on Levaquin and Flagyl and is currently placed on meropenem. 2. Questionable of pneumonia. Patient was presumed to have healthcare- associated pneumonia, however his imaging was not consistent with this either were his symptoms. He does require one liter nasal cannula, however he does not have any increased cough from his baseline. His hypoxia is likely secondary to combination of his heart failure as well as atelectasis. He is on meropenem which will cover for his splenic abscess. Patient would benefit from incentive spirometry and lung expansion. He also appears deconditioned. Would recommend incentive spirometry 3. Oral thrush. Patient has oral thrush. He was given swish and swallow, he was unable to tolerate because he did not like the taste of the nystatin. He has been placed on fluconazole 200 mg by mouth daily. Will continue for now. MTDD
[2020-04-12] MEDS ORDERED: FUROSEMIDE 100MG/10ML VIAL (J1940) IV ONE (17:00)
[2020-04-12] MEDS: MEROPENEM INJ 1 GM in IV 1 EA IV SCH (21:00)
[2020-04-13] VITALS (9 sets, daily range): BP systolic 105–125; BP diastolic 64–77
[2020-04-13] MEDS: ONDANSETRON 4 MG ORAL DISINTEGRATING TAB PO SCH ×4 (00:17→16:02)
[2020-04-13] MEDS: SODIUM CHLORIDE 0.9% INJ 10 ML SYR IV SCH ×2 (05:15→17:26)
[2020-04-13] MEDS: PERCOCET 5MG/325MG TAB PO PRN ×2 (05:16→14:45)
[2020-04-13 05:37] LABS: BASO % 0.1 % (0.0-1.0); EOS % 0.2 % (0.0-3.0); HEMATOCRIT 38.2 % (42.0-52.0); HEMOGLOBIN 12.2 g/dl (13.5-17.5); LYMPH # 0.7 10^3/uL (1.5-5.0); LYMPH % 4.3 % (24.0-44.0); MEAN CORPUSCULAR HEMOGLOBIN 29.1 pg (27.0-33.0); MEAN CORPUSCULAR HGB CONC 31.9 g/dl (32.0-36.5); MEAN CORPUSCULAR VOLUME 91.2 fl (80.0-96.0); MONO # 0.9 10^3/uL (0.0-0.8); MONO % 5.2 % (0.0-5.0); NEUTROPHILS % 89.6 % (36.0-66.0); PLATELET COUNT, AUTOMATED 339 10^3/uL (150-450); RED BLOOD COUNT 4.19 10^6/uL (4.30-6.10); WHITE BLOOD COUNT 16.7 10^3/uL (4.0-10.0)
[2020-04-13 06:07] LABS: ALBUMIN 1.8 GM/DL (3.2-5.2); CALCIUM LEVEL 8.8 MG/DL (8.5-10.1); CREATININE FOR GFR 3.24 MG/DL (0.70-1.30); GLOMERULAR FILTRATION RATE 21.6 (>56); PHOSPHORUS LEVEL 5.5 MG/DL (2.5-4.9); POTASSIUM SERUM 4.8 MEQ/L (3.5-5.1); TOTAL PROTEIN 6.7 GM/DL (6.4-8.2)
[2020-04-13] MEDS: POLYTRIM OPTH DROPS 10ML OU SCH ×4 (06:10→14:44)
[2020-04-13] MEDS: HumaLOG INSULIN (NovoLOG) PER UNIT SC SCH ×4 (07:30→21:00)
[2020-04-13] MEDS: TIOTROPIUM INHALER/CAPSULE (SPIRIVA) INH SCH (07:51)
[2020-04-13] MEDS: IPRATROPIUM 0.5MG/ALBUTEROL 2.5MG INH SOL UD 3ML (DUONEB) NEB SCH ×2 (07:51→19:43)
[2020-04-13] MEDS ORDERED: VANCOMYCIN HCL 1,000 MG, VIAL MATE ADAPTER 1 EACH in D5W 250 ML IV SCH (08:00)
[2020-04-13] MEDS: FLUoxetine 20 MG CAP PO SCH (08:23)
[2020-04-13] MEDS: CREON-12 CAPSULE PO SCH ×3 (08:23→17:27)
[2020-04-13] MEDS: CHLORHEXIDINE GLUCONATE 0.12 % 15ML UDC (PERIDEX ORAL RINSE) SSP SCH ×3 (08:23→21:53)
[2020-04-13] MEDS: ursodioL 300 MG CAP PO SCH ×2 (08:23→22:35)
[2020-04-13] MEDS: PANTOPRAZOLE 40MG VIAL (C9113 PER 1) IV SCH (08:23)
[2020-04-13] MEDS: CARVedilol 3.125 MG TAB PO SCH ×2 (08:24→21:53)
[2020-04-13] MEDS: LACTOBACILLUS ACIDOPHILUS CAP (BACID) PO SCH ×2 (08:24→17:27)
[2020-04-13] MEDS: AMIODARONE 200 MG TAB (PACERONE) PO SCH ×2 (08:24→21:52)
[2020-04-13] MEDS: CLOPIDOGREL 75 MG TAB PO SCH (08:24)
[2020-04-13] MEDS: APIXABAN 5 MG TAB (ELIQUIS) PO SCH ×2 (08:24→21:52)
[2020-04-13] MEDS: FLUCONAZOLE 100 MG TAB PO SCH (08:24)
--- NOTE | 2020-04-13 09:56 | CCN ---
DATE: 04/12/2020 SUBJECTIVE: I was called to the Intensive Care Unit to evaluate this 49-year-old male with hypoxemia. Admitted on March 24 with abdominal pain he has a very extensive past medical history, has recently been dealing with splenic abscesses, pancreatitis. He has severe coronary artery disease, post bypass grafting surgery and stenting greater than 5 years ago. He has a dilated cardiomyopathy, atrial fibrillation for which he has a pacemaker/defibrillator in place. He has insulin-dependent diabetes, hypertension, suffered a cerebrovascular accident in the past. He is felt to have chronic obstructive pulmonary disease based on 40 year smoking history 2 packs per day, continues to actively smoke and was diagnosed with obstructive sleep apnea syndrome in 2017 based on home testing revealing respiratory event index of 8.8, he is not receiving therapy. 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 Since his admission he has been being treated for infection with broad spectrum antibiotics. Attempts to drain his splenic abscesses were unsuccessful. His blood cultures so far during this hospitalization have been negative. Previous blood cultures from [facility] were reported in the chart as showing Enterobacter cloacae. He is transferred now to the Intensive Care Unit this afternoon in light of increasing oxygen need. PHYSICAL EXAMINATION: Vital signs: At bedside his temperature is 97.4, pulse rate 71, respirations 18, blood pressure 124/81, oxygen saturation 93% on 10 liters. HEENT: His oral mucosa is pink. Neck: Supple, jugular veins are 2 cm above sternal angle at 30 degrees. There is positive hepatojugular reflux, no adenopathy is palpable. Heart: Sounds are irregularly irregular. He does have pacemaker/defibrillator in place in the chest wall. Lungs: Breath sounds are diminished bilaterally with crepitant rales in the left greater than the right and dullness in the right base. Chest : Symmetric. There is no accessory muscle use at rest. Abdomen: Soft with intact bowel sounds and G-tube in place. Extremities: Show muscle wasting. DIAGNOSTIC STUDIES: White cell count is up to 19.9 from 12.6 yesterday, hemoglobin 12.6, hematocrit 39.5, platelet count 345,000. Electrolytes: Sodium 138, potassium 4.8, chloride 107, CO2 24, BUN 67, creatinine 3.03, glucose 94. Arterial blood gases showed pH 7.38, pCO2 34, pO2 73, on 10 liters of oxygen via nasal cannula. MEDICATIONS: - Albuterol. - Amiodarone. - Carvedilol. - Prozac. - Sublingual Nitro. - Spiriva. - Actigall. - Protonix. - Tigan. - Morphine PRN. - Apixaban. - Plavix. - Zofran. - Pancrelipase. - Meropenem. - Fluconazole. - Insulin. - Vancomycin. IMAGING STUDIES: CT of abdomen and pelvis has shown the development of effusions on the uppercuts. I obtained a stat chest x-ray and there is bilateral effusion and interstitial edema on the left more than right. ASSESSMENT: The primary problem requiring critical attention is acute hypoxic respiratory failure. RECOMMENDATIONS AND PLAN: 1. Will continue with high flow oxygen to attempt to maintain saturation of 90% plus. 2. The patient has pulmonary edema. Will increase the dose of Lasix given his reduced creatine clearance. 3. Splenic abscess. He is receiving Vancomycin and Meropenem. Will check CBC with differential tomorrow. 4. [id number] kidney failure. Will continue to track creatinine as it is moving in the unfavorable direction. 5. Cardiomyopathy with low ejection fracture portends a poor prognosis. 6. Tobacco-related lung disease. The patient has a 40 year history of smoking 2 packs per day and was still smoking prior to admission according to his finance. This will need to be addressed. 7. Obstructive sleep apnea syndrome. The patient had a home study in 2017 showing mild to moderate disease. Pending the outcome of this hospitalization this will also need to be readdressed. 1 hour 45 minutes was spent in the provision of bedside critical care and coordination exclusive of any procedure time. KENDELL
--- NOTE | 2020-04-13 10:36 | IPNPDOC ---
Text Note Date of Service The patient was seen on 04/13/20. NOTE SUBJECTIVE: -Improved hypoxemia of the last 24h now on 4L HFNC from max reached of 15L -Pulm consulted, appreciate recs, gave more diuretics 80 IV lasix yesterday afternoon PHYSICAL EXAMINATION: General: NAD, chronically ill appearing, cachectic, lethargic HEENT: PERRLA, EOMI, dentures in place, no noted erythema or eye discharge, dry MM NECK: supple, no cervical tenderness CHEST: crackles bilateral lower lung patterson, otherwise with poor effort CVS; RRR, no mrg GI: soft, positive normoactive bowel sounds, left upper quadrant tenderness, peg tube in place, no guarding noted. 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 Please see below. WBC 16.7 Hgb 12.2 na 137 [address] abd/pelvis 04/05/20: 1. Extensive bilateral lung disease, unchanged. 2. Bilateral pleural effusions, unchanged. 3. Left upper quadrant/splenic subcapsular low-density collection, unchanged. 4. Small abdominal and pelvic ascites. 5. Gastrostomy tube present with tip in the gastric cavity CT A/P : 1. Interval increase in bibasilar consolidation 2. No change in the abdomen or pelvis. Multiple abnormalities as previously noted ASSESSMENT: 49 y/o M PMH of a history of pancreatitis c/b necrotic pseudocyst s/p drainage, as well as a history of a splenic abscess s/p drainage and abx, admitted for abdominal pain and found to have a persistent splenic collection, as well as suspicion for PNA and systolic CHF exacerbation with course c/b hypoxemic respiratory failure, anorexia with inability to tolerate much PO or tube feeds, recently started on TPN c/b worsening hypoxemia and worsening bibasilar opacities and worsening leukocytosis. PLAN: 1. Altered mental status, intermittent. Hx of CVA with intermittent confusion but also possibly 2/2 to overall decline, failure to thrive and health care associated PNA. Lethargic still today, mildly confused, redirectable. - likely 2/2 debility and atelectasis in combination with CHF and sepsis -ABG wnl, no hypercarbia and pH was wnl 2. Hypoxemic respiratory failure: Leukocytosis with increasing O2 demand since being started on TPN and worsening bibasilar opacities, concern for HCAP, possibly MRSA. -blood cultures x 2 were negative, no sufficient sputum for collection, daily CBC -Acapella Q2 hrs while awake -supplemental O2 -has been on antibiotics for 9 days now, however MRSA coverage was added on 04/12. day 2 of vanc, day 6 of king -Improving hypoxemia, consulted pulm, appreciated recs -will discuss today's diuretic plan with pulm 3. Acute on chronic systolic CHF with exacerbation. Hx of cardiomyopathy, CABG, s/p AICD and biventricular PM- follows with Dr. Giordano. BNP 158,759, trop neg, no chest pain. He was on furosemide BID before admission here; however, has not been on this medication since admission due to worsening renal failure. -will assess and likely give lasix 80IV once today 4. Conjunctivitis: continue polymixin B/trimethoprim eye drops. -continue eye drops until 04/13 as planned. DC today 5. Persistent splenic abscess, history of perisplenic/splenic abscess 02/2020, underwent IR drain in [facility] on 02/23, with history of enterobacter species, and placed on cipro and flagyl for weeks. Currently afebrile, WBC wnl. Prior hospitalist before me she had spoke with Dr. Palmer (ID) at [facility], and we do have the same record that the splenic collection was 7 cm largest diameter, and then 4 cm post IR drain there, and noted that on recent US it is 6.5cm, slightly larger. Agreed to have another IR drain previously; however, 04/01/20 refused drainage due to it being high risk with them needing to pass needle through pleural space. Per Dr. Kent (radiologist), this would put him at increased risk for empyema, pneumothorax. -consulted Dr. Hector -ID broadened to meropenem and also giving fluconazole for thrush. Day 5 of meropenem 6. Failure to thrive 2/2 to several acute on chronic issues, multiple recent hospitalizations. Decline this hospital stay. Family met with palliative care. Poor oral intake, nausea likely 2/2 to acute infection/illness above. Residuals high , stopped tube feedings. Discussed with surgery and suggested IR to do G to J tube conversion which will occur on 04/08/20. IR consulted. Not eating from his diet well but will c/w low fat diet, pancreatic enzymes with meals. Encouraging fluids Q2 hrs. Tello ATC. Palliative care brought up with patient due to health decline, multiple hospitalizations and chronic pain. -IR was to convert G to J tube yesterday but noted that his G was surgically/endoscopically placed and actually has a mushroom cap that makes it difficult for IR to remove not being a deflatable balloon. So IR requested I contact surgery to remove the mushroom cap for her to replace G to J. He is incredibly weak and debilitated. So tube feeds continue to be on hold -Remains FULL CODE. I keep having daily GOC discussions with Mr. Shipman and his fiance and he does not participate actively frankly and she has been leading the decision to continue FULL CODE at this time. -s/p PICC line for TPN given prolonged anorexia, however TPN now on hold given lethargy, AMS and worsening hypoxemia. 7. MARTY on Chronic kidney disease stage III. 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 Hx of MARTY requiring dialysis in 2019. nephrology signed off. -Avoid nephrotoxic medications, daily labs. 8. History of chronic pancreatitis. Chart mention of autoimmune pancreatitis. lipase, CMP improved. Abdominal pain improving; however, still requiring some morphine PRN. Poor intake, now changed to low fat diet with pancreatic enzymes with meals. 9. Diabetes Mellitus type II. Stable. BS wnl. C/w ISS, AC/HS finger sticks, consistent carb diet. 10. Hx of CVA. C/w plavix, not on statin. 11. Hx of PE/DVT, DVT px. Eliquis BID DISPOSITION: Services consulted on this patient: Nephrology, Interventional Radiology, General Surgery, Palliative Care, ID, pulmonology. VS,Fishbone, I+O VS, Fishbone, I+O Laboratory Tests 04/13/20 05:17 Vital Signs Date Time Temp Pulse Resp B/P (MAP) Pulse Ox O2 Delivery O2 Flow Rate FiO2 04/13/20 08:24 75 118/75 04/13/20 08:00 97.6 20 91 High Flow Cannula 4.0 I&O- Last 24 Hours up to 6 AM 04/13/20 06:00 Intake Total 530 ml Output Total 1100 ml Balance -570 ml DEREK RUANO MD Apr 13, 2020 09:28
[2020-04-13] MEDS ORDERED: FUROSEMIDE 100MG/10ML VIAL (J1940) IV ONE ×2 (13:15)
[2020-04-13] MEDS: MORPHINE 2 MG/ML 1ML VIAL (J2270) IV PRN (16:02)
[2020-04-13] MEDS: MEROPENEM INJ 1 GM in IV 1 EA IV SCH (21:52)
[2020-04-14] VITALS: BP 113/70
[2020-04-14] MEDS: ONDANSETRON 4 MG ORAL DISINTEGRATING TAB PO SCH ×5 (01:01→22:26)
[2020-04-14 04:00] VITALS: BP 128/81
[2020-04-14] MEDS: SODIUM CHLORIDE 0.9% INJ 10 ML SYR IV SCH ×2 (06:43→18:10)
[2020-04-14 06:52] LABS: BASO % 0.3 % (0.0-1.0); EOS # 0.2 10^3/uL (0.0-0.5); HEMOGLOBIN 12.1 g/dl (13.5-17.5); LYMPH # 0.8 10^3/uL (1.5-5.0); LYMPH % 7.1 % (24.0-44.0); MEAN CORPUSCULAR HEMOGLOBIN 28.6 pg (27.0-33.0); MEAN CORPUSCULAR VOLUME 92.2 fl (80.0-96.0); MONO # 0.7 10^3/uL (0.0-0.8); MONO % 5.8 % (0.0-5.0); NEUTROPHILS # 9.9 10^3/uL (1.5-8.5); NEUTROPHILS % 84.3 % (36.0-66.0); PLATELET COUNT, AUTOMATED 327 10^3/uL (150-450); RED BLOOD COUNT 4.23 10^6/uL (4.30-6.10); WHITE BLOOD COUNT 11.7 10^3/uL (4.0-10.0)
[2020-04-14] MEDS: IPRATROPIUM 0.5MG/ALBUTEROL 2.5MG INH SOL UD 3ML (DUONEB) NEB SCH ×2 (07:10→19:54)
[2020-04-14 07:22] LABS: ALBUMIN 1.8 GM/DL (3.2-5.2); ALT/SGPT < 6 U/L (12-78); BILIRUBIN,TOTAL 0.9 MG/DL (0.2-1.0); BLOOD UREA NITROGEN 79 MG/DL (7-18); CALCIUM LEVEL 8.4 MG/DL (8.5-10.1); CARBON DIOXIDE LEVEL 26 MEQ/L (21-32); CHLORIDE LEVEL 106 MEQ/L (98-107); CHOLESTEROL LEVEL 78 MG/DL (< 200); CPK CREATINE PHOSPHOKINASE 11 U/L (39-308); CREATININE FOR GFR 3.26 MG/DL (0.70-1.30); GLOMERULAR FILTRATION RATE 21.4 (>56); GLUCOSE, FASTING 142 MG/DL (70-100); LDH LACTATE DEHYDROGENASE 268 U/L (87-241); PHOSPHORUS LEVEL 5.3 MG/DL (2.5-4.9); POTASSIUM SERUM 4.3 MEQ/L (3.5-5.1); SODIUM LEVEL 138 MEQ/L (136-145); TOTAL PROTEIN 6.1 GM/DL (6.4-8.2); TRIGLYCERIDES LEVEL 153 MG/DL (<150); VANCOMYCIN LEVEL TROUGH 24.6 UG/ML (10.0-20.0)
[2020-04-14] MEDS: HumaLOG INSULIN (NovoLOG) PER UNIT SC SCH ×4 (07:30→21:00)
[2020-04-14 08:00] VITALS: BP 114/79
[2020-04-14] MEDS: LACTOBACILLUS ACIDOPHILUS CAP (BACID) PO SCH ×2 (08:00→17:05)
[2020-04-14] MEDS: TIOTROPIUM INHALER/CAPSULE (SPIRIVA) INH SCH (08:00)
[2020-04-14] MEDS: CREON-12 CAPSULE PO SCH ×3 (08:00→17:05)
[2020-04-14] MEDS: CHLORHEXIDINE GLUCONATE 0.12 % 15ML UDC (PERIDEX ORAL RINSE) SSP SCH ×3 (09:00→21:31)
[2020-04-14] MEDS: APIXABAN 5 MG TAB (ELIQUIS) PO SCH ×2 (09:00→21:31)
[2020-04-14] MEDS: CARVedilol 3.125 MG TAB PO SCH ×2 (09:00→21:31)
[2020-04-14] MEDS: CLOPIDOGREL 75 MG TAB PO SCH (09:00)
[2020-04-14] MEDS: PANTOPRAZOLE 40MG VIAL (C9113 PER 1) IV SCH (09:00)
[2020-04-14] MEDS: FLUCONAZOLE 100 MG TAB PO SCH (09:00)
[2020-04-14] MEDS: AMIODARONE 200 MG TAB (PACERONE) PO SCH ×2 (09:00→21:31)
[2020-04-14] MEDS: FLUoxetine 20 MG CAP PO SCH (09:00)
[2020-04-14] MEDS: ursodioL 300 MG CAP PO SCH ×2 (09:00→21:31)
--- NOTE | 2020-04-14 11:54 | IPNPDOC ---
Text Note Date of Service The patient was seen on 04/14/20. NOTE SUBJECTIVE: -Improved hypoxemia on 2L NC, back in PCU PHYSICAL EXAMINATION: General: NAD, critically ill appearing, cachectic, emaciated HEENT: PERRLA, EOMI, dentures in place, no noted erythema or eye discharge, dry MM NECK: supple, no cervical tenderness CHEST: crackles bilateral lower lung patterson, otherwise with poor effort CVS; RRR, no mrg GI: soft, positive normoactive bowel sounds, left upper quadrant tenderness, peg tube in place, no guarding noted. 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 Please see below. WBC 11.7 Hgb 12.1 na 138 K 4[address] abd/pelvis 04/05/20: 1. Extensive bilateral lung disease, unchanged. 2. Bilateral pleural effusions, unchanged. 3. Left upper quadrant/splenic subcapsular low-density collection, unchanged. 4. Small abdominal and pelvic ascites. 5. Gastrostomy tube present with tip in the gastric cavity CT A/P : 1. Interval increase in bibasilar consolidation 2. No change in the abdomen or pelvis. Multiple abnormalities as previously noted ASSESSMENT: 49 y/o M PMH of a history of pancreatitis c/b necrotic pseudocyst s/p drainage, as well as a history of a splenic abscess s/p drainage and abx, admitted for abdominal pain and found to have a persistent splenic collection, as well as suspicion for PNA and systolic CHF exacerbation with course c/b hypoxemic respiratory failure, anorexia with inability to tolerate much PO or tube feeds, recently started on TPN c/b worsening hypoxemia and worsening bi basilar opacities and worsening leukocytosis. PLAN: 1. Altered mental status, intermittent. Hx of CVA with intermittent confusion but also possibly 2/2 to overall decline, failure to thrive and health care associated PNA. Lethargic still today, mildly confused, redirectable. - likely 2/2 debility and atelectasis in combination with CHF and sepsis -ABG wnl, no hypercarbia and pH was wnl 2. Hypoxemic respiratory failure: Leukocytosis with increasing O2 demand since being started on TPN and worsening bibasilar opacities, concern for HCAP, possibly MRSA. -blood cultures x 2 were negative, no sufficient sputum for collection, daily CBC -Acapella Q2 hrs while awake -supplemental O2 -has been on antibiotics for 10 days now, however MRSA coverage was added on 04/12. day 3 of vanc, day 7 of king -Improving hypoxemia, consulted pulm, appreciated recs 3. Acute on chronic systolic CHF with exacerbation. Hx of cardiomyopathy, CABG, s/p AICD and biventricular PM- follows with Dr. Giordano. BNP 158,759, trop neg, no chest pain. He was on furosemide BID before admission here; however, has not been on this medication since admission due to worsening renal failure. -Nephrology signed off. Will diurese PRN 4. Conjunctivitis: continue polymixin B/trimethoprim eye drops. -s/p eye drops 5. Persistent splenic abscess, history of perisplenic/splenic abscess 02/2020, underwent IR drain in [facility] on 02/23, with history of enterobacter species, and placed on cipro and flagyl for weeks. Currently afebrile, WBC wnl. Prior hospitalist before me she had spoke with Dr. Palmer (ID) at [facility], and we do have the same record that the splenic collection was 7 cm largest diameter, and then 4 cm post IR drain there, and noted that on recent US it is 6.5cm, slightly larger. Agreed to have another IR drain previously; however, 04/01/20 refused drainage due to it being high risk with them needing to pass needle through pleural space. Per Dr. Kent (radiologist), this would put him at increased risk for empyema, pneumothorax. -consulted Dr. Hector -ID broadened to meropenem and also given fluconazole for thrush. Day 6 of meropenem 6. Failure to thrive 2/2 to several acute on chronic issues, multiple recent hospitalizations. Decline this hospital stay. Family met with palliative care. Poor oral intake, nausea likely 2/2 to acute infection/illness above. Residuals high , stopped tube feedings. Discussed with surgery and suggested IR to do G to J tube conversion which will occur on 04/08/20. IR consulted. Not eating from his diet well but will c/w low fat diet, pancreatic enzymes with meals. Encouraging fluids Q2 hrs. Zofran ATC. Palliative care brought up with patient due to health decline, multiple hospitalizations and chronic pain. -IR was to convert G to J tube yesterday but noted that his G was surgically/endoscopically placed and actually has a mushroom cap that makes it difficult for IR to remove not being a deflatable balloon. So IR requested I contact surgery to remove the mushroom cap for her to replace G to J. He is incredibly weak and debilitated. So tube feeds continue to be on hold -Remains FULL CODE. I keep having daily GOC discussions with Mr. Shipman and his fiance and he does not participate actively frankly and she has been leading the decision to continue FULL CODE at this time. -s/p PICC line for TPN given prolonged anorexia, however TPN now on hold given lethargy, AMS and worsening hypoxemia. 7. MARTY on Chronic kidney disease stage III. 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 Hx of MARTY requiring dialysis in 2019. nephrology signed off. -Avoid nephrotoxic medications, daily labs. 8. History of chronic pancreatitis. Chart mention of autoimmune pancreatitis. lipase, CMP improved. Abdominal pain improving; however, still requiring some morphine PRN. Poor intake, now changed to low fat diet with pancreatic enzymes with meals. 9. Diabetes Mellitus type II. Stable. BS wnl. C/w ISS, AC/HS finger sticks, consistent carb diet. 10. Hx of CVA. C/w plavix, not on statin. 11. Hx of PE/DVT, DVT px. Eliquis BID DISPOSITION: Services consulted on this patient: Nephrology, Interventional Radiology, General Surgery, Palliative Care, ID, pulmonology. VS,Fishbone, I+O VS, Fishbone, I+O Laboratory Tests 04/14/20 06:41 Vital Signs Date Time Temp Pulse Resp B/P (MAP) Pulse Ox O2 Delivery O2 Flow Rate FiO2 04/14/20 09:00 68 114/79 04/14/20 08:00 96.4 20 98 Nasal Cannula 3.0 I&O- Last 24 Hours up to 6 AM 04/14/20 06:00 Intake Total 560 ml Output Total 650 ml Balance -90 ml DEREK RUANO MD Apr 14, 2020 11:54
[2020-04-14 12:00] VITALS: BP 107/71
[2020-04-14 16:00] VITALS: BP 110/68
--- NOTE | 2020-04-14 16:03 | CR ---
DATE: 03/28/2020 CONSULTATION FOR: Sujatha Rollins MD REASON FOR CONSULTATION: Acute renal failure superimposed on chronic kidney disease and congestive heart failure. HISTORY OF PRESENT ILLNESS: Mr. Shipman is a 49-year-old gentleman with complicated medical problems and multiple hospitalizations. He was admitted to [facility] with pancreatitis and had a complicated hospitalization, where he had partial colectomy and a colostomy done and also has a percutaneous endoscopic gastrostomy (PEG) tube placed. He was then admitted to [facility] in [place], where he had further workup in February. His perisplenic fluid collation was drained, and he was treated with antibiotics. A couple of weeks ago he was admitted to [facility] with congestive heart failure and acute renal failure and required diuresis. He was discharged to home just 3 or 4 days prior to this admission after his condition improved. He is now admitted with worsening abdominal pain and edema. He also has developed worsening kidney function since admission, and a nephrology consultation was requested today. PAST MEDICAL HISTORY: Significant for: 1. Coronary artery disease, status post coronary artery bypass graft (CABG) and stenting. 2. Dilated cardiomyopathy with ejection fraction of about 30%. 3. History of insulin-dependent diabetes mellitus (IDDM). 4. Hypertension. 5. Prior history of stroke. 6. Chronic obstructive pulmonary disease (COPD). 7. History of obstructive sleep apnea. 8. Hyperlipidemia. 9. Depression. 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 11. Chronic recurrent pancreatitis with pseudocysts. 12. History of a gastrostomy (G) tube placement. 13. History of perisplenic fluid collection drainage by interventional radiology (IR). 14. History of chronic kidney disease. 15. History of deep venous thrombosis (DVT), on chronic anticoagulation. 16. History of Methicillin-resistant Staphylococcus aureus (MRSA) infection of his sternum following CABG. 17. History of splenic infarct. 18. Stroke with left middle cerebral artery stenosis. PAST SURGICAL HISTORY: Significant for: 1. Coronary artery bypass surgery. 2. History of vasectomy. 3. Cholecystectomy. 4. Implantable cardioverter-defibrillator (ICD) placement and removal and then again placement. 5. Sigmoid colectomy and colostomy. 6. Feeding tube placement. 7. Perisplenic fluid collection drainage. FAMILY HISTORY: There is history of COPD and cancer in his family. HOME MEDICATIONS: - amiodarone 200 mg twice a day - Eliquis 5 mg twice a day - carvedilol 3.125 mg twice a day - Plavix 75 mg daily - ferrous gluconate 324 mg twice a day - fluoxetine 40 mg daily - furosemide 40 mg twice a day - Humalog insulin per sliding scale - multivitamin one tablet daily - pantoprazole 40 mg daily - sodium bicarbonate 325 mg four tablets daily - Spiriva inhaler 18 mcg daily - Isordil 300 mg twice a day - albuterol inhaler as needed for shortness of breath - nitroglycerin 0.4 mg as needed for chest pain - He also uses Zofran 4 mg tablet every 8 hours as needed for nausea ALLERGIES: Patient has no known drug allergies. REVIEW OF SYSTEMS: Patient has not been feeling well for several days. He reports poor appetite but has been drinking liquids okay. He had left-sided abdominal pain prior to admission. Denies any fever or chills. Ears, nose, and throat are unremarkable. Cardiovascular system is significant for history of atrial fibrillation and dilated cardiomyopathy. He is short of breath and reports increased edema on right upper and lower extremities. Respiratory system is negative for hemoptysis or pleuritic-type of chest pain. Gastrointestinal (GI) system significant for recurrent pancreatitis, history of PEG tube placement and a colostomy. His colostomy has been functioning, but his appetite has been decreased. Genitourinary () system negative for dysuria or hematuria. Endocrine system is significant for type 2 diabetes, currently on insulin. Hematological system is significant for chronic anticoagulation and prior history of DVT. Neurological system significant for prior stroke. He denies any seizures at this point. He does have some headache. Psychosocial system is significant for depression. Skin is negative for rash or ulcers. Musculoskeletal system is significant for generalized weakness and inability to ambulate. He reports increased edema on his right upper and lower extremities. PHYSICAL EXAMINATION: Temperature 97.9 degrees Fahrenheit, heart rate 76 per minute, respiratory rate 18 per minute, blood pressure 127/83 mm of mercury, and oxygen saturation 97% on room air. His head is atraumatic. Neck supple and jugular venous distention (JVD) is difficult to be assessed. Pupils are equal and reactive to light. Sclerae are anicteric. There is no oral thrush or ulcers. Heart sounds are regular, and lungs have diminished breath sounds at lower one- third bilaterally with few basilar rales. He has an ICD on right upper chest without any signs of infection. Abdomen has a PEG tube in place and right lower abdomen ostomy with some fluid stool in the bag. There is tenderness in left upper quadrant, and bowel sounds are present. Extremities have no cyanosis or clubbing. He has 1+ edema on right upper extremity and 2+ edema on right lower extremity. There is no edema on the left side. Neurologically, he is awake, alert, and at his baseline mentation. Skin has no rash or ulcers. LABORATORY DATA: On admission march 25, hemoglobin was 10.8 and hematocrit 34.5, platelets 301. BUN was 44 and creatinine 2.93. Today his sodium is 139, potassium 5.2, CO2 of 20, BUN 43, and creatinine 3.33. Glucose 134 and calcium 8.9. Total protein 6.6 and albumin 2.2. Lipase level was 454 yesterday. Urine sodium was 21 and potassium 57.0. CHRISTI screen was negative. A renal ultrasound done today: No hydronephrosis and some debris in the urinary bladder. Complex subcapsular collection in spleen, measuring about 6.4/2.6/3 cm. He also has some ascites. PROBLEMS: 1. Acute kidney injury superimposed on chronic kidney disease. Most likely this is related to decompensated congestive heart failure. He is grossly volume overloaded with significant edema on the right side. He has been lying mostly on the right side due to left upper quadrant pain with perisplenic collection. His oral intake has been mostly fluids due to decreased appetite. He did not take diuretic properly at home. I will start with intravenous Lasix and diurese him aggressively and see how he does. 2. Acute on chronic systolic congestive heart failure. He has known history of cardiomyopathy with ejection fraction about 25%-35%. At this point, his volume status is decompensated, and he needs to be diuresed. I am going to start with IV Lasix 60 mg every 8 hours and see how he does. Renal profile should be monitored on daily basis. 3. Hyperkalemia. Mild hyperkalemia is related to acute kidney injury and chronic kidney disease. This will be corrected with diuresis. 4. Chronic kidney disease. Etiology of his chronic kidney disease is uncertain at this point. He does have a known history of IgG-related disease and also has history of diabetes. His chronic kidney disease could be related to multiple factors, including diabetic nephropathy, congestive heart failure related chronic kidney disease, and chronic interstitial nephritis. He is currently not on any nephrotoxic medications. At this point, there is no emergent indication for dialysis, and we will continue to monitor him closely. Renal ultrasound was negative for any hydronephrosis. Thank you for involving me in the care of Mr. Shipman. I will follow him along with you. KENDELL
[2020-04-14] MEDS: PERCOCET 5MG/325MG TAB PO PRN (16:35)
[2020-04-14 20:00] VITALS: BP 121/74
[2020-04-14] MEDS: MEROPENEM INJ 1 GM in IV 1 EA IV SCH (21:31)
[2020-04-15] VITALS: BP 117/73
[2020-04-15] MEDS: MORPHINE 2 MG/ML 1ML VIAL (J2270) IV PRN ×2 (00:48→12:50)
[2020-04-15 04:00] VITALS: BP 111/71
[2020-04-15] MEDS: PERCOCET 5MG/325MG TAB PO PRN ×2 (05:15→14:56)
[2020-04-15 05:52] LABS: BASO % 0.3 % (0.0-1.0); EOS # 0.2 10^3/uL (0.0-0.5); EOS % 2.2 % (0.0-3.0); HEMOGLOBIN 11.6 g/dl (13.5-17.5); LYMPH # 0.8 10^3/uL (1.5-5.0); LYMPH % 7.4 % (24.0-44.0); MEAN CORPUSCULAR HEMOGLOBIN 28.4 pg (27.0-33.0); MEAN CORPUSCULAR HGB CONC 30.5 g/dl (32.0-36.5); MEAN CORPUSCULAR VOLUME 93.1 fl (80.0-96.0); MONO # 0.8 10^3/uL (0.0-0.8); MONO % 7.2 % (0.0-5.0); NEUTROPHILS # 9.1 10^3/uL (1.5-8.5); NEUTROPHILS % 82.4 % (36.0-66.0); PLATELET COUNT, AUTOMATED 305 10^3/uL (150-450); RED BLOOD COUNT 4.08 10^6/uL (4.30-6.10); WHITE BLOOD COUNT 11.1 10^3/uL (4.0-10.0)
[2020-04-15] MEDS: ONDANSETRON 4 MG ORAL DISINTEGRATING TAB PO SCH ×4 (05:59→23:20)
[2020-04-15] MEDS: SODIUM CHLORIDE 0.9% INJ 10 ML SYR IV SCH ×2 (06:00→17:54)
[2020-04-15 06:25] LABS: ALBUMIN 1.7 GM/DL (3.2-5.2); ALT/SGPT < 6 U/L (12-78); BILIRUBIN,TOTAL 0.7 MG/DL (0.2-1.0); BLOOD UREA NITROGEN 74 MG/DL (7-18); CALCIUM LEVEL 8.2 MG/DL (8.5-10.1); CARBON DIOXIDE LEVEL 25 MEQ/L (21-32); CHLORIDE LEVEL 108 MEQ/L (98-107); CHOLESTEROL LEVEL 86 MG/DL (< 200); CPK CREATINE PHOSPHOKINASE 16 U/L (39-308); CREATININE FOR GFR 3.19 MG/DL (0.70-1.30); GLUCOSE, FASTING 164 MG/DL (70-100); LDH LACTATE DEHYDROGENASE 246 U/L (87-241); PHOSPHORUS LEVEL 4.8 MG/DL (2.5-4.9); POTASSIUM SERUM 4.3 MEQ/L (3.5-5.1); SODIUM LEVEL 140 MEQ/L (136-145); TOTAL PROTEIN 6.1 GM/DL (6.4-8.2); TRIGLYCERIDES LEVEL 193 MG/DL (<150); VANCOMYCIN RANDOM 20.5 UG/ML
[2020-04-15] MEDS: IPRATROPIUM 0.5MG/ALBUTEROL 2.5MG INH SOL UD 3ML (DUONEB) NEB SCH ×2 (07:11→20:01)
[2020-04-15] MEDS: TIOTROPIUM INHALER/CAPSULE (SPIRIVA) INH SCH (07:12)
[2020-04-15] MEDS: HumaLOG INSULIN (NovoLOG) PER UNIT SC SCH ×4 (07:30→20:27)
[2020-04-15 08:00] VITALS: BP 114/79
[2020-04-15] MEDS: CREON-12 CAPSULE PO SCH ×3 (08:00→17:53)
[2020-04-15] MEDS: LACTOBACILLUS ACIDOPHILUS CAP (BACID) PO SCH ×2 (08:00→17:53)
[2020-04-15] MEDS: ursodioL 300 MG CAP PO SCH ×2 (10:14→20:36)
[2020-04-15] MEDS: PANTOPRAZOLE 40MG VIAL (C9113 PER 1) IV SCH (10:14)
[2020-04-15] MEDS: FLUoxetine 20 MG CAP PO SCH (10:15)
[2020-04-15] MEDS: CLOPIDOGREL 75 MG TAB PO SCH (10:15)
[2020-04-15] MEDS: AMIODARONE 200 MG TAB (PACERONE) PO SCH ×2 (10:15→20:36)
[2020-04-15] MEDS: CARVedilol 3.125 MG TAB PO SCH ×2 (10:16→20:26)
[2020-04-15] MEDS: APIXABAN 5 MG TAB (ELIQUIS) PO SCH ×2 (10:17→20:36)
[2020-04-15] MEDS: FLUCONAZOLE 100 MG TAB PO SCH (10:18)
[2020-04-15] MEDS: CHLORHEXIDINE GLUCONATE 0.12 % 15ML UDC (PERIDEX ORAL RINSE) SSP SCH ×3 (10:36→20:37)
--- NOTE | 2020-04-15 11:19 | IPNPDOC ---
Text Note Date of Service The patient was seen on 04/15/20. NOTE SUBJECTIVE: -Stable hypoxemia on 2L NC, back in PCU -No PO, or other nutrition, low UOP PHYSICAL EXAMINATION: General: NAD, critically ill appearing, cachectic, emaciated HEENT: PERRLA, EOMI, dentures in place, no noted erythema or eye discharge, dry MM NECK: supple, no cervical tenderness CHEST: crackles bilateral lower lung patterson, otherwise with poor effort CVS; RRR, no mrg GI: soft, positive normoactive bowel sounds, left upper quadrant tenderness, peg tube in place, no guarding noted. 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 Please see below. WBC 11.1 Hgb 11[address] abd/pelvis 04/05/20: 1. Extensive bilateral lung disease, unchanged. 2. Bilateral pleural effusions, unchanged. 3. Left upper quadrant/splenic subcapsular low-density collection, unchanged. 4. Small abdominal and pelvic ascites. 5. Gastrostomy tube present with tip in the gastric cavity CT A/P : 1. Interval increase in bibasilar consolidation 2. No change in the abdomen or pelvis. Multiple abnormalities as previously noted ASSESSMENT: 49 y/o M PMH of a history of pancreatitis c/b necrotic pseudocyst s/p drainage, as well as a history of a splenic abscess s/p drainage and abx, admitted for abdominal pain and found to have a persistent splenic collection, as well as suspicion for PNA and systolic CHF exacerbation with course c/b hypoxemic respiratory failure, anorexia with inability to tolerate much PO or tube feeds, recently started on TPN c/b worsening hypoxemia and worsening bibasilar opacities and worsening leukocytosis that has improved after stopping TPN, diuresis and addition of Vancomycin. PLAN: 1. Altered mental status, intermittent. Hx of CVA with intermittent confusion but also possibly 2/2 to overall decline, failure to thrive and health care associated PNA. Lethargic still today, mildly confused, redirectable. - likely 2/2 debility and atelectasis in combination with CHF and sepsis -ABG wnl, no hypercarbia and pH was wnl 2. Hypoxemic respiratory failure: Leukocytosis with increasing O2 demand since being started on TPN and worsening bibasilar opacities, concern for HCAP, possibly MRSA. -blood cultures x 2 were negative, no sufficient sputum for collection, daily CBC -Acapella Q2 hrs while awake -supplemental O2 -has been on antibiotics for 11 days now, however MRSA coverage was added on 04/12. day 4 of vanc, day 8 of king -Improving hypoxemia, consulted pulm, appreciated recs 3. Acute on chronic systolic CHF with exacerbation. Hx of cardiomyopathy, CABG, s/p AICD and biventricular PM- follows with Dr. Giordano. BNP 158,759, trop neg, no chest pain. He was on furosemide BID before admission here; however, has not been on this medication since admission due to worsening renal failure. -Nephrology signed off. Will diurese PRN 4. Conjunctivitis: continue polymixin B/trimethoprim eye drops. -s/p eye drops 5. Persistent splenic abscess, history of perisplenic/splenic abscess 02/2020, underwent IR drain in [facility] on 02/23, with history of enterobacter species, and placed on cipro and flagyl for weeks. Currently afebrile, WBC wnl. Prior hospitalist before me she had spoke with Dr. Palmer (ID) at [facility], and we do have the same record that the splenic collection was 7 cm largest diameter, and then 4 cm post IR drain there, and noted that on recent US it is 6.5cm, slightly larger. Agreed to have another IR drain previously; however, 04/01/20 refused drainage due to it being high risk wi th them needing to pass needle through pleural space. Per Dr. Kent (radiologist), this would put him at increased risk for empyema, pneumothorax. -consulted Dr. Hector -ID broadened to meropenem and also given fluconazole for thrush. Day 7 of meropenem 6. Failure to thrive 2/2 to several acute on chronic issues, multiple recent hospitalizations. Decline this hospital stay. Family met with palliative care. Poor oral intake, nausea likely 2/2 to acute infection/illness above. Residuals high , stopped tube feedings. Discussed with surgery and suggested IR to do G to J tube conversion which will occur on 04/08/20. IR consulted. Not eating from his diet well but will c/w low fat diet, pancreatic enzymes with meals. Encouraging fluids Q2 hrs. Tello ATC. Palliative care brought up with patient due to health decline, multiple hospitalizations and chronic pain. -IR was to convert G to J tube yesterday but noted that his G was surgically/endoscopically placed and actually has a mushroom cap that makes it difficult for IR to remove not being a deflatable balloon. So IR requested I contact surgery to remove the mushroom cap for her to replace G to J. He is incredibly weak and debilitated. So tube feeds continue to be on hold -Remains FULL CODE. I have daily GOC discussions with Mr. Shipman and his fiance and he does not participate actively frankly and she has been leading the decision to continue FULL CODE at this time. -s/p PICC line for TPN given prolonged anorexia, however TPN now on hold given lethargy, AMS and worsening hypoxemia. 7. MARTY on Chronic kidney disease stage III. 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 Hx of MARTY requiring dialysis in 2019. nephrology signed off. -Avoid nephrotoxic medications, daily labs. 8. History of chronic pancreatitis. Chart mention of autoimmune pancreatitis. lipase, CMP improved. Abdominal pain improving; however, still requiring some morphine PRN. Poor intake, now changed to low fat diet with pancreatic enzymes with meals. 9. Diabetes Mellitus type II. Stable. BS wnl. C/w ISS, AC/HS finger sticks, consistent carb diet. 10. Hx of CVA. C/w plavix, not on statin. 11. Hx of PE/DVT, DVT px. Eliquis BID DISPOSITION: Services consulted on this patient: Nephrology, Interventional Radiology, General Surgery, Palliative Care, ID, pulmonology. VS,Fishbone, I+O VS, Fishbone, I+O Laboratory Tests 04/15/20 05:15 Vital Signs Date Time Temp Pulse Resp B/P (MAP) Pulse Ox O2 Delivery O2 Flow Rate FiO2 04/15/20 05:45 16 Nasal Cannula 04/15/20 04:00 96.6 74 111/71 (84) 95 3.0 I&O- Last 24 Hours up to 6 AM 04/15/20 06:00 Intake Total 650 ml Output Total 1205 ml Balance -555 ml DEREK RUANO MD Apr 15, 2020 08:49
[2020-04-15 12:00] VITALS: BP 115/78
--- NOTE | 2020-04-15 15:48 | CR ---
DATE: 04/02/2020 REASON FOR CONSULTATION: Evaluation of feeding tube. HISTORY OF PRESENT ILLNESS: The patient is a 49-year-old man with a complicated medical history. He has significant coronary disease and has undergone coronary artery bypass and stenting. He apparently has cardiomyopathy with a decreased ejection fraction. He has diabetes and hypertension and has suffered from a stroke. He has chronic pancreatitis. He has undergone a colectomy, apparently a left hemicolectomy, for unclear reasons. He was admitted at this time for some abdominal pain. His oral intake has been impaired. He was noted to have a small fluid collection adjacent to the spleen, high on the left upper quadrant, suggestive of an abscess. He has a feeding tube in place in the left upper quadrant and the hospitalist, Dr. Meke, asked me if I could evaluate this to see if this needs to be replaced or if it would be possible to begin tube feeds through this tube. ALLERGIES: The hospital record suggests no known drug allergies. MEDICATIONS: As listed in the medical record. His list of preadmission medications is also noted. SURGICAL HISTORY: Includes his coronary artery bypass grafting. He has undergone placement and then replacement of a pacemaker with a cardioverter defibrillator. He has undergone a left hemicolectomy, which is likely related to diagnosis of ischemic colitis back in early 2018. PHYSICAL EXAMINATION: Patient is a thin man lying quietly on the hospital bed with his eyes closed. His significant other is apparently present at the bedside. As I started speaking with her, thinking he was asleep, he responded and apparently he is alert and appropriate responsive. He does not appear in obvious discomfort. Examination of the abdomen shows that he has a colostomy in the right upper quadrant. He has a midline scar. He has a silicone single lumen feeding tube in the left upper quadrant. This appears to be an approximately 16 to 18 [place] tube. There is a flush port, but no balloon. Abdomen is generally non-distended and soft, and he has a few bowel sounds present. LABORATORY STUDIES: Today show white count 12, hemoglobin 11, hematocrit 35 and platelet count 231,000. His chemistry profile shows normal electrolytes with BUN 55, creatinine 3.9 and glucose 188. Most recent total protein and albumin were yesterday, when they were 6.1 and 2.0 respectively. Lipase 308 yesterday. IMAGING STUDIES: CT scan of the abdomen and pelvis had been done on the 24 of March. I reviewed these images. At the time on the , he had bilateral pleural effusions; left greater than right. His gallbladder appears to be present, possibly with a stone within the gallbladder. He has a lot of free intraabdominal fluid, but no evidence of free air. He has a colostomy apparently from his transverse colon. His rectum appears to remain in place, but is discontinuous near the top of the sacrum. There is a small fluid collection adjacent to the upper lateral aspect of the spleen, which could be consistent with an abscess. His tube is clearly a gastrostomy tube and this appears to be appropriately placed in his mid to distal stomach. It has the standard retention disk without a balloon. IMPRESSION: Patients G tube reportedly was placed somewhere between a year and two years ago in [place]. The tube has not been used this year for feedings, but the reports that she has been flushing this occasionally with some water. The tube itself is somewhat stained on its inner aspect, but the tube is otherwise in good condition. RECOMMENDATIONS: I believe it would be reasonable to use the tube as is if it is needed for feedings. It certainly is possibly nearing the end of its useful life and this could certainly be replaced at any time if we desired to do so. For now, I will leave the tube as is and if there are any problems with its use, it could be changed at any time. KENDELL
[2020-04-15 16:00] VITALS: BP 120/75
--- NOTE | 2020-04-15 16:03 | ECGEPIP ---
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
[2020-04-15] MEDS: MEROPENEM INJ 1 GM in IV 1 EA IV SCH (20:37)
[2020-04-16] VITALS: BP 104/71
[2020-04-16 04:00] VITALS: BP 112/76
[2020-04-16] MEDS: ONDANSETRON 4 MG ORAL DISINTEGRATING TAB PO SCH ×4 (06:11→23:25)
[2020-04-16] MEDS: IPRATROPIUM 0.5MG/ALBUTEROL 2.5MG INH SOL UD 3ML (DUONEB) NEB PRN (06:13)
[2020-04-16] MEDS: SODIUM CHLORIDE 0.9% INJ 10 ML SYR IV SCH ×2 (06:14→17:16)
[2020-04-16 06:42] LABS: BASO # 0.1 10^3/uL (0.0-0.2); BASO % 0.4 % (0.0-1.0); EOS # 0.3 10^3/uL (0.0-0.5); EOS % 2.6 % (0.0-3.0); HEMOGLOBIN 12.1 g/dl (13.5-17.5); LYMPH # 1.1 10^3/uL (1.5-5.0); LYMPH % 9.3 % (24.0-44.0); MEAN CORPUSCULAR HEMOGLOBIN 28.8 pg (27.0-33.0); MEAN CORPUSCULAR VOLUME 92.9 fl (80.0-96.0); MONO % 8.9 % (0.0-5.0); NEUTROPHILS # 8.9 10^3/uL (1.5-8.5); NEUTROPHILS % 78.2 % (36.0-66.0); PLATELET COUNT, AUTOMATED 306 10^3/uL (150-450); WHITE BLOOD COUNT 11.4 10^3/uL (4.0-10.0)
[2020-04-16 07:19] LABS: ALBUMIN 1.8 GM/DL (3.2-5.2); BILIRUBIN,TOTAL 0.8 MG/DL (0.2-1.0); CALCIUM LEVEL 8.5 MG/DL (8.5-10.1); CREATININE FOR GFR 3.05 MG/DL (0.70-1.30); GLOMERULAR FILTRATION RATE 23.2 (>56); PHOSPHORUS LEVEL 4.5 MG/DL (2.5-4.9); POTASSIUM SERUM 4.6 MEQ/L (3.5-5.1); TOTAL PROTEIN 6.9 GM/DL (6.4-8.2)
[2020-04-16] MEDS: HumaLOG INSULIN (NovoLOG) PER UNIT SC SCH ×4 (07:30→19:59)
[2020-04-16 08:00] VITALS: BP 118/79
[2020-04-16 08:01] LABS: VANCOMYCIN RANDOM 18.4 UG/ML
[2020-04-16] MEDS ORDERED: VANCOMYCIN INTERMITTENT/PULSE DOSING BY CLINICAL PHARMACIST PER DOSING PROTOCOL XX SCH (08:30)
[2020-04-16] MEDS ORDERED: VANCOMYCIN HCL 500 MG in D5W MINI-BAG PLUS 100 ML IV ONE (09:00)
[2020-04-16] MEDS: IPRATROPIUM 0.5MG/ALBUTEROL 2.5MG INH SOL UD 3ML (DUONEB) NEB SCH ×2 (09:30→20:00)
[2020-04-16] MEDS: TIOTROPIUM INHALER/CAPSULE (SPIRIVA) INH SCH (09:30)
[2020-04-16] MEDS: CHLORHEXIDINE GLUCONATE 0.12 % 15ML UDC (PERIDEX ORAL RINSE) SSP SCH ×4 (09:42→20:33)
[2020-04-16] MEDS: LACTOBACILLUS ACIDOPHILUS CAP (BACID) PO SCH ×2 (09:43→17:16)
[2020-04-16] MEDS: PANTOPRAZOLE 40MG VIAL (C9113 PER 1) IV SCH (09:43)
[2020-04-16] MEDS: FLUoxetine 20 MG CAP PO SCH (09:43)
[2020-04-16] MEDS: APIXABAN 5 MG TAB (ELIQUIS) PO SCH ×2 (09:44→20:28)
[2020-04-16] MEDS: CLOPIDOGREL 75 MG TAB PO SCH (09:44)
[2020-04-16] MEDS: CARVedilol 3.125 MG TAB PO SCH ×2 (09:44→20:29)
[2020-04-16] MEDS: CREON-12 CAPSULE PO SCH ×3 (09:44→17:16)
[2020-04-16] MEDS: TRIMETHOBENZAMIDE 300 MG CAP PO PRN (09:44)
[2020-04-16] MEDS: FLUCONAZOLE 100 MG TAB PO SCH (09:45)
[2020-04-16] MEDS: ursodioL 300 MG CAP PO SCH ×2 (09:55→20:28)
[2020-04-16] MEDS: PERCOCET 5MG/325MG TAB PO PRN ×2 (09:56→23:25)
[2020-04-16] MEDS: AMIODARONE 200 MG TAB (PACERONE) PO SCH ×2 (09:57→20:28)
--- NOTE | 2020-04-16 10:41 | IPN ---
DATE: 04/13/2020 NOTE ON BEHALF OF: Dr. Haynes. SUBJECTIVE: Patient was seen and examined at the bedside this morning. He has no complaints. There were no issues reported overnight. He continues to struggle with nutrition. Otherwise, he denies any pain, shortness of breath, cough or dyspnea at this time. OBJECTIVE: VITAL SIGNS: Temperature 97.6, pulse 75, respiratory rate 20, blood pressure 118/75, pulse oximetry 91% on 4 liters nasal cannula. INS AND OUTS: In the past 24 hours, he has had 560 cc in and 1175 cc out for a net negative of 615 cc. His current weight is 69.8 kg. GENERAL: He is lying in bed. He is calm in no acute distress. Cooperative. Very pleasant. Chronically ill-appearing, cachectic and lethargic. HEENT: His extraocular movements are intact. Normocephalic, atraumatic. Pupils are equal, round and reactive to light. He has dry mucous membranes. NECK: Supple with no lymphadenopathy and no thyromegaly. LUNGS: He has crackles at the bases bilaterally, otherwise no other adventitious breath sounds. CARDIOVASCULAR: Regular rate and rhythm with no obvious murmurs, rubs or gallops. ABDOMEN: Soft and nontender, positive bowel sounds with a PEG tube in place in the left lower quadrant, but no guarding appreciated. EXTREMITIES: No clubbing, cyanosis or edema. No calf tenderness. NEUROLOGIC: Awake, alert and oriented x3 with no obvious focal deficit. PSYCHOLOGIC: Normal mood and normal affect. LABORATORY DATA TODAY: White blood cell count 16.7, hemoglobin 12.2, hematocrit 38.2 and platelet count 339,000. Chemistries show sodium 137, potassium 4.8, chloride 106, carbon dioxide 23, BUN 71 and creatinine 3.24 from 3.03 yesterday with a fasting glucose of 162. Phosphorus was high at 5.5. AST and ALT were 38 and 7 respectively, alkaline phosphatase 128 and LDH 327. BNP went down from 158,759 to 24,504 and albumin 1.8. IMAGING STUDIES: No new imaging. ASSESSMENT: A 49-year-old male with a necrotic pancreatic pseudocyst, a splenic abscess; status post drainage, found to have hypoxemic respiratory failure secondary to hypervolemia. Continue with diuresis. We will continue his Lasix 80 mg once daily as he has had good urine output over the past few days. In addition, continue his vancomycin for MRSA positive and Meropenem, but he has had negative cultures thus far. Would recommend to continue enteral nutrition as tolerated. Otherwise, no other changes to the management at this time. Dr. Haynes: I participated in the winslow elements of this evaluation and in the medical decision making reflected in the note. KENDELL
[2020-04-16 12:00] VITALS: BP 119/75
[2020-04-16 16:00] VITALS: BP 102/63
--- NOTE | 2020-04-16 17:13 | IPNPDOC ---
Text Note Date of Service The patient was seen on 04/16/20. NOTE Subjective: No any acute events overnight. Patient mental status improved pat ient was alert and oriented Patient was able to eat. Patient denies fever, chills, nausea, diarrhea PHYSICAL EXAMINATION: General: NAD, critically ill appearing, cachectic HEENT: PERRLA, EOMI NECK: supple, no cervical tenderness CHEST: crackles bilateral lower lung patterson, otherwise with poor effort CVS; RRR, no mrg GI: soft, positive normoactive bowel sounds, left upper quadrant tenderness, peg tube in place, no guarding noted. 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 CN II-XII grossly intact, no focal sensory or motor deficits ASSESSMENT: 49 y/o M PMH of a history of pancreatitis c/b necrotic pseudocyst s/p drainage, as well as a history of a splenic abscess s/p drainage and abx, admitted for abdominal pain and found to have a persistent splenic collection, as well as suspicion for PNA and systolic CHF exacerbation with course c/b hypoxemic respiratory failure, anorexia with inability to tolerate much PO or tube feeds, recently started on TPN c/b worsening hypoxemia and worsening bibasilar opacities and worsening leukocytosis that has improved after stopping TPN, diuresis and addition of Vancomycin. Altered mental status Improved In the morning patient was alert and oriented Acute hypoxemic respiratory failure Most likely secondary to acute CHF, atelectasis and pulmonary edema Blood culture negative Continue incentive spirometry Acute on chronic systolic CHF with exacerbation. Hx of cardiomyopathy, CABG, s/p AICD and biventricular PM- follows with Dr. Giordano has not been on this medication since admission due to worsening renal failure -Nephrology signed off. Will diurese PRN Conjunctivitis: continue polymixin B/trimethoprim eye drops. -s/p eye drops Persistent splenic abscess history of perisplenic/splenic abscess 02/2020, underwent IR drain in [facility] on 02/23, with history of Enterobacter species, and placed on Cipro and Flagyl for weeks. Currently afebrile, WBC wnl. Prior hospitalist before me she had spoke with Dr. Palmer (ID) at [facility], and we do have the same record that the splenic collection was 7 cm largest diameter, and then 4 cm post IR drain there, and noted that on recent US it is 6.5cm, slightly larger. Agreed to have another IR drain previously; however, 04/01/20 refused drainage due to it being high risk with them needing to pass needle through pleural space. Per Dr. Kent (radiologist), this would put him at increased risk for empyema, pneumothorax. -consulted Dr. Hector -ID broadened to meropenem and also given fluconazole for thrush. Day 8 of meropenem Failure to thrive 2/2 to several acute on chronic issues, multiple recent hospitalizations. Decline this hospital stay. Family met with palliative care. Poor oral intake, nausea likely 2/2 to acute infection/illness above. Residuals high , stopped tube feedings. Discussed with surgery and suggested IR to do G to J tube conversion which will occur on 04/08/20. IR consulted. Not eating from his diet well but will c/w low fat diet, pancreatic enzymes with meals. Encouraging fluids Q2 hrs. Zofran ATC. Palliative care brought up with patient due to health decline, multiple hospitalizations and chronic pain. -IR was to convert G to J tube but noted that his G was surgically/endoscopically placed and actually has a mushroom cap that makes it difficult for IR to remove not being a deflatable balloon. -Remains FULL CODE. Multiple discussions with Mr. Shipman and his fiance and he does not participate actively frankly and she has been leading the decision to continue FULL CODE at this time. MARTY on Chronic kidney disease stage III Slight improvement today History of chronic pancreatitis. Chart mention of autoimmune pancreatitis. lipase, CMP improved. Abdominal pain improving; however, still requiring some morphine PRN. Poor intake, now changed to low fat diet with pancreatic enzymes with meals. Hx of CVA. C/w plavix, not on statin. Hx of PE/DVT, DVT px. Eliquis BID VS,Fishbone, I+O VS, Fishbone, I+O Laboratory Tests 04/16/20 06:16 Vital Signs Date Time Temp Pulse Resp B/P (MAP) Pulse Ox O2 Delivery O2 Flow Rate FiO2 04/16/20 16:00 97.2 74 17 102/63 (76) 96 Nasal Cannula 3.0 I&O- Last 24 Hours up to 6 AM 04/16/20 06:00 Intake Total 900 ml Output Total 0 ml Balance 900 ml JENNIFER ROMERO DO Apr 16, 2020 17:13
[2020-04-16 20:00] VITALS: BP 110/77
[2020-04-16] MEDS: MEROPENEM INJ 1 GM in IV 1 EA IV SCH (20:27)
[2020-04-17] VITALS (7 sets, daily range): BP systolic 101–127; BP diastolic 64–91
[2020-04-17] MEDS: ONDANSETRON 4 MG ORAL DISINTEGRATING TAB PO SCH ×4 (05:38→23:44)
[2020-04-17] MEDS: SODIUM CHLORIDE 0.9% INJ 10 ML SYR IV SCH ×2 (05:38→17:47)
[2020-04-17] MEDS: TIOTROPIUM INHALER/CAPSULE (SPIRIVA) INH SCH (07:24)
[2020-04-17] MEDS: IPRATROPIUM 0.5MG/ALBUTEROL 2.5MG INH SOL UD 3ML (DUONEB) NEB SCH ×2 (07:25→20:00)
[2020-04-17] MEDS: PANTOPRAZOLE 40MG VIAL (C9113 PER 1) IV SCH (08:43)
[2020-04-17] MEDS: APIXABAN 5 MG TAB (ELIQUIS) PO SCH ×2 (08:44→21:37)
[2020-04-17] MEDS: CARVedilol 3.125 MG TAB PO SCH ×2 (08:44→21:00)
[2020-04-17] MEDS: AMIODARONE 200 MG TAB (PACERONE) PO SCH ×2 (08:44→21:37)
[2020-04-17] MEDS: CREON-12 CAPSULE PO SCH ×3 (08:44→16:06)
[2020-04-17] MEDS: LACTOBACILLUS ACIDOPHILUS CAP (BACID) PO SCH ×2 (08:44→16:06)
[2020-04-17] MEDS: CLOPIDOGREL 75 MG TAB PO SCH (08:44)
[2020-04-17] MEDS: FLUoxetine 20 MG CAP PO SCH (08:44)
[2020-04-17] MEDS: CHLORHEXIDINE GLUCONATE 0.12 % 15ML UDC (PERIDEX ORAL RINSE) SSP SCH ×3 (08:45→21:37)
[2020-04-17] MEDS: FLUCONAZOLE 100 MG TAB PO SCH (08:45)
[2020-04-17] MEDS ORDERED: VANCOMYCIN HCL 500 MG in D5W MINI-BAG PLUS 100 ML IV ONE (09:00)
[2020-04-17] MEDS: ursodioL 300 MG CAP PO SCH ×2 (09:14→21:37)
[2020-04-17] MEDS: HumaLOG INSULIN (NovoLOG) PER UNIT SC SCH ×4 (09:14→21:00)
[2020-04-17 10:40] LABS: BASO # 0.1 10^3/uL (0.0-0.2); BASO % 0.6 % (0.0-1.0); EOS # 0.2 10^3/uL (0.0-0.5); HEMOGLOBIN 11.7 g/dl (13.5-17.5); LYMPH # 1.2 10^3/uL (1.5-5.0); LYMPH % 11.8 % (24.0-44.0); MEAN CORPUSCULAR HEMOGLOBIN 28.2 pg (27.0-33.0); MONO % 9.2 % (0.0-5.0); NEUTROPHILS # 7.9 10^3/uL (1.5-8.5); NEUTROPHILS % 75.9 % (36.0-66.0); PLATELET COUNT, AUTOMATED 273 10^3/uL (150-450); RED BLOOD COUNT 4.15 10^6/uL (4.30-6.10); WHITE BLOOD COUNT 10.5 10^3/uL (4.0-10.0)
[2020-04-17 11:36] LABS: ALBUMIN 1.7 GM/DL (3.2-5.2); ALT/SGPT < 6 U/L (12-78); BILIRUBIN,TOTAL 0.7 MG/DL (0.2-1.0); BLOOD UREA NITROGEN 73 MG/DL (7-18); C REACTIVE PROTEIN QUANTITATIV 9.91 MG/DL (0.00-0.30); CALCIUM LEVEL 8.3 MG/DL (8.5-10.1); CARBON DIOXIDE LEVEL 23 MEQ/L (21-32); CHLORIDE LEVEL 108 MEQ/L (98-107); CREATININE FOR GFR 3.02 MG/DL (0.70-1.30); GLOMERULAR FILTRATION RATE 23.4 (>56); GLUCOSE, FASTING 161 MG/DL (70-100); MAGNESIUM LEVEL 2.1 MG/DL (1.8-2.4); POTASSIUM SERUM 4.8 MEQ/L (3.5-5.1); SODIUM LEVEL 141 MEQ/L (136-145); TOTAL PROTEIN 6.1 GM/DL (6.4-8.2)
--- NOTE | 2020-04-17 13:22 | IPNPDOC ---
Text Note Date of Service The patient was seen on 04/17/20. NOTE Subjective: No any acute events overnight. Patient was able to tolerate oral intake Patient denies fever, chills, nausea, diarrhea PHYSICAL EXAMINATION: General: NAD, critically ill appearing, cachectic HEENT: PERRLA, EOMI NECK: supple, no cervical tenderness CHEST: crackles bilateral lower lung patterson, otherwise with poor effort CVS; RRR, no mrg GI: soft, positive normoactive bowel sounds, left upper quadrant tenderness, peg tube in place, no guarding noted. 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 CN II-XII grossly intact, no focal sensory or motor deficits ASSESSMENT: 49 y/o M PMH of a history of pancreatitis c/b necrotic pseudocyst s/p drainage, as well as a history of a splenic abscess s/p drainage and abx, admitted for abdominal pain and found to have a persistent splenic collection, as well as suspicion for PNA and systolic CHF exacerbation with course c/b hypoxemic respiratory failure, anorexia with inability to tolerate much PO or tube feeds, recently started on TPN c/b worsening hypoxemia and worsening bibas ilar opacities and worsening leukocytosis that has improved after stopping TPN, diuresis and addition of Vancomycin. Altered mental status Improved In the morning patient was alert and oriented Acute hypoxemic respiratory failure Most likely secondary to acute CHF, atelectasis and pulmonary edema Blood culture negative Continue incentive spirometry Acute on chronic systolic CHF with exacerbation. Hx of cardiomyopathy, CABG, s/p AICD and biventricular PM- follows with Dr. Giordano has not been on this medication since admission due to worsening renal failure -Nephrology signed off. Will diurese PRN Conjunctivitis: continue polymixin B/trimethoprim eye drops. -s/p eye drops Persistent splenic abscess history of perisplenic/splenic abscess 02/2020, underwent IR drain in [facility] on 02/23, with history of Enterobacter species, and placed on Cipro and Flagyl for weeks. Currently afebrile, WBC wnl. Prior hospitalist before me she had spoke with Dr. Palmer (ID) at [facility], and we do have the same record that the splenic collection was 7 cm largest diameter, and then 4 cm post IR drain there, and noted that on recent US it is 6.5cm, slightly larger. Agreed to have another IR drain previously; however, 04/01/20 refused drainage due to it being high risk with them needing to pass needle through pleural space. Per Dr. Kent (radiologist), this would put him at increased risk for empyema, pneumothorax. -consulted Dr. Hector -ID broadened to meropenem and also given fluconazole for thrush. Day 9 of meropenem Failure to thrive 2/2 to several acute on chronic issues, multiple recent hospitalizations. Decline this hospital stay. Family met with palliative care. Poor oral intake, nausea likely 2/2 to acute infection/illness above. Residuals high , stopped t ube feedings. Discussed with surgery and suggested IR to do G to J tube conversion which will occur on 04/08/20. IR consulted. Not eating from his diet well but will c/w low fat diet, pancreatic enzymes with meals. Encouraging fluids Q2 hrs. Zofran ATC. Palliative care brought up with patient due to health decline, multiple hospitalizations and chronic pain. -IR was to convert G to J tube but noted that his G was surgically/endoscopically placed and actually has a mushroom cap that makes it difficult for IR to remove not being a deflatable balloon. -Remains FULL CODE. Multiple discussions with Mr. Shipman and his fiance and he does not participate actively frankly and she has been leading the decision to continue FULL CODE at this time. MARTY on Chronic kidney disease stage III Slight improvement today History of chronic pancreatitis. Chart mention of autoimmune pancreatitis. lipase, CMP improved. Abdominal pain improving; however, still requiring some morphine PRN. Poor intake, now changed to low fat diet with pancreatic enzymes with meals. Will add Ensure Hx of CVA. C/w plavix, not on statin. Hx of PE/DVT, DVT px. Eliquis BID VS,Fishbone, I+O VS, Fishbone, I+O Laboratory Tests 04/17/20 10:15 Vital Signs Date Time Temp Pulse Resp B/P (MAP) Pulse Ox O2 Delivery O2 Flow Rate FiO2 04/17/20 12:00 97.4 66 20 108/78 (88) 93 Nasal Cannula 3.0 I&O- Last 24 Hours up to 6 AM 04/17/20 06:00 Intake Total 425 ml Output Total 300 ml Balance 125 ml JENNIFER ROMERO DO Apr 17, 2020 13:22
[2020-04-17] MEDS: PERCOCET 5MG/325MG TAB PO PRN (16:07)
[2020-04-17] MEDS: MEROPENEM INJ 1 GM in IV 1 EA IV SCH (21:37)
[2020-04-18] VITALS (7 sets, daily range): BP systolic 100–128; BP diastolic 56–88
[2020-04-18] MEDS: ONDANSETRON 4 MG ORAL DISINTEGRATING TAB PO SCH ×4 (05:23→23:00)
[2020-04-18] MEDS: SODIUM CHLORIDE 0.9% INJ 10 ML SYR IV SCH ×2 (05:24→17:43)
[2020-04-18 05:54] LABS: BASO # 0.1 10^3/uL (0.0-0.2); BASO % 0.6 % (0.0-1.0); EOS # 0.3 10^3/uL (0.0-0.5); EOS % 2.7 % (0.0-3.0); HEMATOCRIT 38.6 % (42.0-52.0); HEMOGLOBIN 11.9 g/dl (13.5-17.5); LYMPH # 1.2 10^3/uL (1.5-5.0); LYMPH % 12.8 % (24.0-44.0); MEAN CORPUSCULAR HEMOGLOBIN 28.9 pg (27.0-33.0); MEAN CORPUSCULAR HGB CONC 30.8 g/dl (32.0-36.5); MEAN CORPUSCULAR VOLUME 93.7 fl (80.0-96.0); MONO % 10.2 % (0.0-5.0); NEUTROPHILS # 6.8 10^3/uL (1.5-8.5); NEUTROPHILS % 72.8 % (36.0-66.0); PLATELET COUNT, AUTOMATED 284 10^3/uL (150-450); RED BLOOD COUNT 4.12 10^6/uL (4.30-6.10); WHITE BLOOD COUNT 9.4 10^3/uL (4.0-10.0)
[2020-04-18 06:25] LABS: ALBUMIN 1.8 GM/DL (3.2-5.2); BILIRUBIN,TOTAL 0.7 MG/DL (0.2-1.0); CALCIUM LEVEL 8.4 MG/DL (8.5-10.1); CREATININE FOR GFR 3.12 MG/DL (0.70-1.30); GLOMERULAR FILTRATION RATE 22.6 (>56); MAGNESIUM LEVEL 2.1 MG/DL (1.8-2.4); POTASSIUM SERUM 4.9 MEQ/L (3.5-5.1); TOTAL PROTEIN 6.4 GM/DL (6.4-8.2); VANCOMYCIN RANDOM 19.6 UG/ML
[2020-04-18] MEDS: HumaLOG INSULIN (NovoLOG) PER UNIT SC SCH ×4 (07:30→21:00)
[2020-04-18] MEDS: CREON-12 CAPSULE PO SCH ×3 (08:00→17:42)
[2020-04-18] MEDS: TIOTROPIUM INHALER/CAPSULE (SPIRIVA) INH SCH (08:00)
[2020-04-18] MEDS: IPRATROPIUM 0.5MG/ALBUTEROL 2.5MG INH SOL UD 3ML (DUONEB) NEB SCH ×2 (08:00→20:33)
[2020-04-18] MEDS: CHLORHEXIDINE GLUCONATE 0.12 % 15ML UDC (PERIDEX ORAL RINSE) SSP SCH ×5 (09:00→22:31)
[2020-04-18] MEDS ORDERED: VANCOMYCIN HCL 500 MG in D5W MINI-BAG PLUS 100 ML IV ONE (09:00)
[2020-04-18] MEDS: MORPHINE 2 MG/ML 1ML VIAL (J2270) IV PRN ×2 (10:02→17:41)
[2020-04-18] MEDS: PANTOPRAZOLE 40MG VIAL (C9113 PER 1) IV SCH (10:09)
[2020-04-18] MEDS: LACTOBACILLUS ACIDOPHILUS CAP (BACID) PO SCH ×2 (10:10→17:42)
[2020-04-18] MEDS: FLUoxetine 20 MG CAP PO SCH (10:10)
[2020-04-18] MEDS: AMIODARONE 200 MG TAB (PACERONE) PO SCH ×2 (10:10→22:31)
[2020-04-18] MEDS: FLUCONAZOLE 100 MG TAB PO SCH (10:10)
[2020-04-18] MEDS: APIXABAN 5 MG TAB (ELIQUIS) PO SCH ×2 (10:11→22:30)
[2020-04-18] MEDS: CARVedilol 3.125 MG TAB PO SCH ×2 (10:11→22:31)
[2020-04-18] MEDS: CLOPIDOGREL 75 MG TAB PO SCH (10:12)
[2020-04-18] MEDS: ursodioL 300 MG CAP PO SCH ×2 (10:12→22:31)
--- NOTE | 2020-04-18 11:48 | IPNPDOC ---
Text Note Date of Service The patient was seen on 04/18/20. NOTE Subjective: No any acute events overnight. Patient was able to tolerate oral intake, he did not eat the breakfast. Patient denies fever, chills, nausea, diarrhea PHYSICAL EXAMINATION: General: NAD, critically ill appearing, cachectic HEENT: PERRLA, EOMI NECK: supple, no cervical tenderness CHEST: crackles bilateral lower lung patterson, otherwise with poor effort CVS; RRR, no mrg GI: soft, positive normoactive bowel sounds, left upper quadrant tenderness, peg tube in place, no guarding noted. EXTREMITIES: no limitation of ROM, no leg edema CEO NA: CN II-XII grossly intact, no focal sensory or motor deficits ASSESSMENT: 49 y/o M PMH of a history of pancreatitis c/b necrotic pseudocyst s/p drainage, as well as a history of a splenic abscess s/p drainage and abx, admitted for abdominal pain and found to have a persistent splenic collection, as well as suspicion for PNA and systolic CHF exacerbation with course c/b hypoxemic respiratory failure, anorexia with inability to tolerate much PO or tube feeds, recently started on TPN c/b worsening hypoxemia and worsening bi basilar opacities and worsening leukocytosis that has improved after stopping TPN, diuresis and addition of Vancomycin. Altered mental status Resolved In the morning patient was alert and oriented Acute hypoxemic respiratory failure Most likely secondary to acute CHF, atelectasis and pulmonary edema Blood culture negative Continue incentive spirometry Acute on chronic systolic CHF with exacerbation. Hx of cardiomyopathy, CABG, s/p AICD and biventricular PM- follows with Dr. Giordano has not been on this medication since admission due to worsening renal failure -Nephrology signed off. Will diurese PRN Conjunctivitis: continue polymixin B/trimethoprim eye drops. -s/p eye drops Persistent splenic abscess history of perisplenic/splenic abscess 02/2020, underwent IR drain in [facility] on 02/23, with history of Enterobacter species, and placed on Cipro and Flagyl for weeks. Currently afebrile, WBC wnl. Prior hospitalist before me she had spoke with Dr. Palmer (ID) at [facility], and we do have the same record that the splenic collection was 7 cm largest diameter, and then 4 cm post IR drain there, and noted that on recent US it is 6.5cm, slightly larger. Agreed to have another IR drain previously; however, 04/01/20 refused drainage due to it being high risk with them needing to pass needle through pleural space. Per Dr. Kent (radiologist), this would put him at increased risk for empyema, pneumothorax. -consulted Dr. Hector Failure to thrive 2/2 to several acute on chronic issues, multiple recent hospitalizations. Decline this hospital stay. Family met with palliative care. Poor oral intake, nausea likely 2/2 to acute infection/illness above. Residuals high , stopped tube feedings. Discussed with surgery and suggested IR to do G to J tube conversion which will occur on 04/08/20. IR consulted. Not eating from his diet well but will c/w low fat diet, pancreatic enzymes with meals. Encouraging fluids Q2 hrs. Zofran ATC. Palliative care brought up with patient due to health decline, multiple hospitalizations and chronic pain. -IR was to convert G to J tube but noted that his G was surgically/endoscopically placed and actually has a mushroom cap that makes it difficult for IR to remove not being a deflatable balloon. -Remains FULL CODE. Multiple discussions with Mr. Shipman and his fiance and he does not participate actively frankly and she has been leading the decision to continue FULL CODE at this time. MARTY on Chronic kidney disease stage III Stable today History of chronic pancreatitis. Chart mention of autoimmune pancreatitis. l ipase, CMP improved. Abdominal pain improving; however, still requiring some morphine PRN. Poor intake, now changed to low fat diet with pancreatic enzymes with meals. Will add Ensure Hx of CVA. C/w plavix, not on statin. Hx of PE/DVT, DVT px. Eliquis BID VS,Fishbone, I+O VS, Fishbone, I+O Laboratory Tests 04/18/20 05:33 Vital Signs Date Time Temp Pulse Resp B/P (MAP) Pulse Ox O2 Delivery O2 Flow Rate FiO2 04/18/20 10:12 18 98 Nasal Cannula 04/18/20 10:11 70 119/87 04/18/20 10:02 98.0 04/18/20 08:00 96.8 I&O- Last 24 Hours up to 6 AM 04/18/20 06:00 Intake Total 720 ml Output Total 350 ml Balance 370 ml JENNIFER ROMERO DO Apr 18, 2020 11:48
[2020-04-18] MEDS: PERCOCET 5MG/325MG TAB PO PRN (22:30)
[2020-04-18] MEDS: MEROPENEM INJ 1 GM in IV 1 EA IV SCH (22:32)
[2020-04-18] MEDS: SODIUM CHLORIDE 0.9% INJ 10 ML SYR IV PRN (23:15)
[2020-04-19] MEDS: ONDANSETRON 4 MG ORAL DISINTEGRATING TAB PO SCH ×4 (05:00→23:00)
[2020-04-19] MEDS: SODIUM CHLORIDE 0.9% INJ 10 ML SYR IV SCH ×2 (05:23→17:35)
[2020-04-19 06:00] VITALS: BP 122/84
[2020-04-19 06:03] LABS: BASO # 0.1 10^3/uL (0.0-0.2); BASO % 0.7 % (0.0-1.0); EOS # 0.2 10^3/uL (0.0-0.5); HEMATOCRIT 39.7 % (42.0-52.0); HEMOGLOBIN 12.4 g/dl (13.5-17.5); LYMPH # 1.2 10^3/uL (1.5-5.0); LYMPH % 14.4 % (24.0-44.0); MEAN CORPUSCULAR HEMOGLOBIN 28.9 pg (27.0-33.0); MEAN CORPUSCULAR HGB CONC 31.2 g/dl (32.0-36.5); MEAN CORPUSCULAR VOLUME 92.5 fl (80.0-96.0); MONO % 11.2 % (0.0-5.0); PLATELET COUNT, AUTOMATED 286 10^3/uL (150-450); RED BLOOD COUNT 4.29 10^6/uL (4.30-6.10); WHITE BLOOD COUNT 8.5 10^3/uL (4.0-10.0)
[2020-04-19 06:16] LABS: ALBUMIN 1.8 GM/DL (3.2-5.2); BILIRUBIN,TOTAL 0.7 MG/DL (0.2-1.0); CALCIUM LEVEL 8.5 MG/DL (8.5-10.1); CREATININE FOR GFR 3.09 MG/DL (0.70-1.30); GLOMERULAR FILTRATION RATE 22.8 (>56); MAGNESIUM LEVEL 2.2 MG/DL (1.8-2.4); TOTAL PROTEIN 6.3 GM/DL (6.4-8.2); VANCOMYCIN RANDOM 17.4 UG/ML
[2020-04-19] MEDS: HumaLOG INSULIN (NovoLOG) PER UNIT SC SCH ×4 (07:45→20:39)
[2020-04-19] MEDS: IPRATROPIUM 0.5MG/ALBUTEROL 2.5MG INH SOL UD 3ML (DUONEB) NEB SCH ×2 (08:00→19:48)
[2020-04-19] MEDS: TIOTROPIUM INHALER/CAPSULE (SPIRIVA) INH SCH (08:00)
[2020-04-19] MEDS ORDERED: VANCOMYCIN HCL 500 MG in D5W MINI-BAG PLUS 100 ML IV ONE (09:00)
[2020-04-19] MEDS: FLUoxetine 20 MG CAP PO SCH (10:05)
[2020-04-19] MEDS: CLOPIDOGREL 75 MG TAB PO SCH (10:05)
[2020-04-19] MEDS: CREON-12 CAPSULE PO SCH ×3 (10:05→17:34)
[2020-04-19] MEDS: FLUCONAZOLE 100 MG TAB PO SCH (10:06)
[2020-04-19] MEDS: ursodioL 300 MG CAP PO SCH ×2 (10:06→20:39)
[2020-04-19] MEDS: AMIODARONE 200 MG TAB (PACERONE) PO SCH ×2 (10:06→20:37)
[2020-04-19] MEDS: LACTOBACILLUS ACIDOPHILUS CAP (BACID) PO SCH ×2 (10:06→17:34)
[2020-04-19] MEDS: APIXABAN 5 MG TAB (ELIQUIS) PO SCH ×2 (10:07→20:39)
[2020-04-19] MEDS: PANTOPRAZOLE 40MG VIAL (C9113 PER 1) IV SCH (10:07)
[2020-04-19] MEDS: CARVedilol 3.125 MG TAB PO SCH ×2 (10:12→20:37)
[2020-04-19] MEDS: CHLORHEXIDINE GLUCONATE 0.12 % 15ML UDC (PERIDEX ORAL RINSE) SSP SCH ×4 (10:13→20:43)
--- NOTE | 2020-04-19 11:39 | IPNPDOC ---
Text Note Date of Service The patient was seen on 04/19/20. NOTE Subjective: No any acute events overnight. Patient continues to have poor zoila etite. Patient complains of insomnia Patient denies fever, chills, nausea, diarrhea PHYSICAL EXAMINATION: General: NAD, critically ill appearing, cachectic HEENT: PERRLA, EOMI NECK: supple, no cervical tenderness CHEST: crackles bilateral lower lung patterson, otherwise with poor effort CVS; RRR, no mrg GI: soft, positive normoactive bowel sounds, left upper quadrant tenderness, peg tube in place, no guarding noted. EXTREMITIES: no limitation of ROM, no leg edema ANIMATOR: CN II-XII grossly intact, no focal sensory or motor deficits ASSESSMENT: 49 y/o M PMH of a history of pancreatitis c/b necrotic pseudocyst s/p drainage, as well as a history of a splenic abscess s/p drainage and abx, admitted for abdominal pain and found to have a persistent splenic collection, as well as suspicion for PNA and systolic CHF exacerbation with course c/b hypoxemic respiratory failure, anorexia with inability to tolerate much PO or tube feeds, recently started on TPN c/b worsening hypoxemia and worsening bib asilar opacities and worsening leukocytosis that has improved after stopping TPN, diuresis and addition of Vancomycin. Altered mental status Resolved In the morning patient was alert and oriented Acute hypoxemic respiratory failure Most likely secondary to acute CHF, atelectasis and pulmonary edema Blood culture negative Continue incentive spirometry Acute on chronic systolic CHF with exacerbation. Hx of cardiomyopathy, CABG, s/p AICD and biventricular PM- follows with Dr. Giordano has not been on this medication since admission due to worsening renal failure -Nephrology signed off. Will diurese PRN Conjunctivitis: continue polymixin B/trimethoprim eye drops. -s/p eye drops Persistent splenic abscess history of perisplenic/splenic abscess 02/2020, underwent IR drain in [facility] on 02/23, with history of Enterobacter species, and placed on Cipro and Flagyl for weeks. Currently afebrile, WBC wnl. Prior hospitalist before me she had spoke with Dr. Palmer (ID) at [facility], and we do have the same record that the splenic collection was 7 cm largest diameter, and then 4 cm post IR drain there, and noted that on recent US it is 6.5cm, slightly larger. Agreed to have another IR drain previously; however, 04/01/20 refused drainage due to it being high risk with them needing to pass needle through pleural space. Per Dr. Kent (radiologist), this would put him at increased risk for empyema, pneumothorax. -consulted Dr. Hector Failure to thrive 2/2 to several acute on chronic issues, multiple recent hospitalizations. Decline this hospital stay. Family met with palliative care. Poor oral intake, nausea likely 2/2 to acute infection/illness above. Residuals high , stopped tube feedings. Discussed with surgery and suggested IR to do G to J tube conversion which will occur on 04/08/20. IR consulted. Not eating from his diet well but will c/w low fat diet, pancreatic enzymes with meals. Encouraging fluids Q2 hrs. Zofran ATC. Palliative care brought up with patient due to health decline, multiple hospitalizations and chronic pain. -IR was to convert G to J tube but noted that his G was surgically/endoscopically placed and actually has a mushroom cap that makes it difficult for IR to remove not being a deflatable balloon. -Remains FULL CODE. Multiple discussions with Mr. Shipman and his fiance and he does not participate actively frankly and she has been leading the decision to continue FULL CODE at this time. MARTY on Chronic kidney disease stage III Stable today History of chronic pancreatitis. Chart mention of autoimmune pancreatitis. l ipase, CMP improved. Abdominal pain improving; however, still requiring some morphine PRN. Poor intake, now changed to low fat diet with pancreatic enzymes with meals. Will add Ensure Hx of CVA. C/w plavix, not on statin. Hx of PE/DVT, DVT px. Eliquis BID Deconditioning Secondary to multiple comorbidities PT/OT Insomnia Rozerem daily at bedtime VS,Fishbone, I+O VS, Fishbone, I+O Laboratory Tests 04/19/20 05:33 Vital Signs Date Time Temp Pulse Resp B/P (MAP) Pulse Ox O2 Delivery O2 Flow Rate FiO2 04/19/20 10:12 70 122/74 04/19/20 06:00 97.4 16 94 04/18/20 23:00 Room Air 04/18/20 12:00 I&O- Last 24 Hours up to 6 AM 04/19/20 06:00 Intake Total 500 ml Output Total 0 ml Balance 500 ml DROZHZHIN,JENNIFER DO Apr 19, 2020 11:39
[2020-04-19] MEDS: SODIUM CHLORIDE 0.9% INJ 10 ML SYR IV PRN ×3 (12:29→22:29)
[2020-04-19 14:00] VITALS: BP 125/84
--- NOTE | 2020-04-19 14:19 | IPN ---
DATE: 04/17/2020 SUBJECTIVE: Trever seems to be doing a little better. He did eat some peaches today. He has no nausea or vomiting. He is tolerating some tube feeds as well. He drinks a milkshake when his girlfriend brings him, he drinks about a half a cup. He still has left upper quadrant abdominal pain, which is unchanged. He has a cough and O2 sat is about 93% on 2 liters. Denies any other complaints except generalized weakness. He is not working with PT or OT, and has not been out of bed. MEDICATIONS: - Vancomycin I.V. - Meropenem 1 gram I.V. every 8 hours; started on 04/09/2020. - Fluconazole 200 mg p.o. q.h.s.; started on 04/09/2020. - Nystatin swish Rinse; patient is refusing. LABORATORY DATA: White count 10.5, hemoglobin 11.7, hematocrit 39, platelets 273,000, 76% neutrophils, 12% lymphocytes, 9% monocytes. Sodium 141, potassium 4.8, chloride 108, bicarb 23, BUN 73, creatinine 3.02, glucose 161, calcium 8.3. Magnesium 2.1, bilirubin 0.7, AST 18, ALT 6, alkaline phosphatase 155. CRP 9.91. PHYSICAL EXAMINATION: GENERAL: A frail gentleman in no acute distress, lying in bed with his eyes closed. His girlfriend, Tram, is at the bedside. VITALS: Temp 97.4, pulse 76, respirations 20, blood pressure 108/78, O2 sat 93% on 3 liters nasal cannula. HEART: Normal S1, S2. No murmurs appreciated. LUNGS: A few crackles at the bases bilaterally. ABDOMEN: Soft, tenderness in the left upper quadrant. G tube in place with no purulence. Ileostomy in right lower quadrant with some soft stools. EXTREMITIES: Trace edema bilaterally. He has healed decubitus ulcer on the left side. IMPRESSION: 1. Splenic abscess: Patient has been on treatment for Enterobacter infection for the past two months. There is a persistent collection on his CT that has not changed in site. I am not sure if this is a sterile collection or still infected. I have discussed the case with radiology and the collection cannot be accessed safely without going through the lungs. 2. Bilateral consolidations, pulmonary consolidation: The patient has been treated for presumptive hospital acquired pneumonia, although that could also be congestive heart failure. He is currently on Meropenem and Vancomycin. 3. Oral thrush on Fluconazole: Has resolved. PLAN: Discontinue Meropenem and Fluconazole after 10 days of therapy as well as Vancomycin on 04/19/2020. The patient will be monitored off antibiotics. Obtaining CT abdomen and pelvis as a follow-up. If patient worsens or has a fever or worsening abdominal pain, then a CT could be obtained and splenic lesion could be reassessed. PT, OT has been ordered. Encouraged to get out of bed to the chair. Patient was encouraged to drink Ensure and if he is not getting enough intake, the G tube could be used as well. Case has been discussed with Dr. Mauricio RDZ
[2020-04-19] MEDS: MORPHINE 2 MG/ML 1ML VIAL (J2270) IV PRN ×2 (16:24→22:28)
[2020-04-19] MEDS: FUROSEMIDE 40 MG TAB PO SCH (17:34)
[2020-04-19] MEDS: RAMELTEON 8 MG TAB (ROZEREM) PO SCH (20:36)
[2020-04-19] MEDS: ENTRESTO 24-26MG TABLET (SACUBITRIL/VALSARTAN) PO SCH (20:39)
[2020-04-19] MEDS: PERCOCET 5MG/325MG TAB PO PRN (20:39)
[2020-04-19 22:00] VITALS: BP 120/81
[2020-04-20] MEDS: ONDANSETRON 4 MG ORAL DISINTEGRATING TAB PO SCH ×4 (04:11→23:00)
[2020-04-20] MEDS: SODIUM CHLORIDE 0.9% INJ 10 ML SYR IV SCH ×2 (05:56→17:23)
[2020-04-20 06:00] VITALS: BP_SYST 111; BP_SYST 124; BP_DIAS 72; BP_DIAS 75
[2020-04-20 06:28] LABS: BASO # 0.1 10^3/uL (0.0-0.2); BASO % 0.7 % (0.0-1.0); EOS # 0.3 10^3/uL (0.0-0.5); EOS % 3.4 % (0.0-3.0); HEMATOCRIT 39.1 % (42.0-52.0); HEMOGLOBIN 12.3 g/dl (13.5-17.5); LYMPH # 1.2 10^3/uL (1.5-5.0); LYMPH % 13.6 % (24.0-44.0); MEAN CORPUSCULAR HEMOGLOBIN 28.9 pg (27.0-33.0); MEAN CORPUSCULAR HGB CONC 31.5 g/dl (32.0-36.5); MEAN CORPUSCULAR VOLUME 91.8 fl (80.0-96.0); MONO % 10.8 % (0.0-5.0); NEUTROPHILS # 6.2 10^3/uL (1.5-8.5); NEUTROPHILS % 70.8 % (36.0-66.0); PLATELET COUNT, AUTOMATED 275 10^3/uL (150-450); RED BLOOD COUNT 4.26 10^6/uL (4.30-6.10); WHITE BLOOD COUNT 8.8 10^3/uL (4.0-10.0)
[2020-04-20] MEDS: TIOTROPIUM INHALER/CAPSULE (SPIRIVA) INH SCH (07:54)
[2020-04-20] MEDS: IPRATROPIUM 0.5MG/ALBUTEROL 2.5MG INH SOL UD 3ML (DUONEB) NEB SCH ×2 (07:54→19:25)
[2020-04-20 08:04] LABS: ALBUMIN 1.6 GM/DL (3.2-5.2); BILIRUBIN,TOTAL 0.6 MG/DL (0.2-1.0); CALCIUM LEVEL 8.4 MG/DL (8.5-10.1); CREATININE FOR GFR 3.01 MG/DL (0.70-1.30); GLOMERULAR FILTRATION RATE 23.5 (>56); MAGNESIUM LEVEL 2.2 MG/DL (1.8-2.4); POTASSIUM SERUM 4.8 MEQ/L (3.5-5.1); TOTAL PROTEIN 5.9 GM/DL (6.4-8.2); VANCOMYCIN RANDOM 17.6 UG/ML
[2020-04-20] MEDS: CHLORHEXIDINE GLUCONATE 0.12 % 15ML UDC (PERIDEX ORAL RINSE) SSP SCH ×4 (08:59→20:32)
[2020-04-20] MEDS: CREON-12 CAPSULE PO SCH ×3 (08:59→17:22)
[2020-04-20] MEDS: ENTRESTO 24-26MG TABLET (SACUBITRIL/VALSARTAN) PO SCH ×2 (09:00→20:32)
[2020-04-20] MEDS: CARVedilol 3.125 MG TAB PO SCH ×2 (09:00→20:32)
[2020-04-20] MEDS: LACTOBACILLUS ACIDOPHILUS CAP (BACID) PO SCH ×2 (09:00→17:22)
[2020-04-20] MEDS: APIXABAN 5 MG TAB (ELIQUIS) PO SCH ×2 (09:00→20:32)
[2020-04-20] MEDS: FUROSEMIDE 40 MG TAB PO SCH (09:01)
[2020-04-20] MEDS: ursodioL 300 MG CAP PO SCH ×2 (09:02→20:32)
[2020-04-20] MEDS: FLUoxetine 20 MG CAP PO SCH (09:02)
[2020-04-20] MEDS: AMIODARONE 200 MG TAB (PACERONE) PO SCH ×2 (09:03→20:32)
[2020-04-20] MEDS: CLOPIDOGREL 75 MG TAB PO SCH (09:06)
[2020-04-20] MEDS: HumaLOG INSULIN (NovoLOG) PER UNIT SC SCH ×4 (09:07→20:03)
[2020-04-20] MEDS: PANTOPRAZOLE 40MG VIAL (C9113 PER 1) IV SCH (09:08)
[2020-04-20] MEDS: PERCOCET 5MG/325MG TAB PO PRN ×3 (09:49→18:49)
[2020-04-20 09:57] VITALS: BP 119/79
[2020-04-20 14:00] VITALS: BP 118/75
--- NOTE | 2020-04-20 14:00 | IPNPDOC ---
Text Note Date of Service The patient was seen on 04/20/20. NOTE Subjective: No any acute events overnight. Patient continues to have poor zoila etite. Patient stated he slept better today Patient denies fever, chills, nausea, diarrhea PHYSICAL EXAMINATION: General: NAD, critically ill appearing, cachectic HEENT: PERRLA, EOMI NECK: supple, no cervical tenderness CHEST: crackles bilateral lower lung patterson, otherwise with poor effort CVS; RRR, no mrg GI: soft, positive normoactive bowel sounds, left upper quadrant tenderness, peg tube in place, no guarding noted. EXTREMITIES: no limitation of ROM, no leg edema SOLE LEVELER MACHINE: CN II-XII grossly intact, no focal sensory or motor deficits ASSESSMENT: 49 y/o M PMH of a history of pancreatitis c/b necrotic pseudocyst s/p drainage, as well as a history of a splenic abscess s/p drainage and abx, ad mitted for abdominal pain and found to have a persistent splenic collection, as well as suspicion for PNA and systolic CHF exacerbation with course c/b hypoxemic respiratory failure, anorexia with inability to tolerate much PO or tube feeds, recently started on TPN c/b worsening hypoxemia and worsening bibasilar opacities and worsening leukocytosis that has improved after stopping TPN, diuresis and addition of Vancomycin. Altered mental status Resolved In the morning patient was alert and oriented Acute hypoxemic respiratory failure Most likely secondary to acute CHF, atelectasis and pulmonary edema Blood culture negative Continue incentive spirometry Acute on chronic systolic CHF with exacerbation. Hx of cardiomyopathy, CABG, s/p AICD and biventricular PM- follows with Dr. Giordano has not been on this medication since admission due to worsening renal failure -Nephrology signed off. Will diurese PRN Conjunctivitis: continue polymixin B/trimethoprim eye drops. -s/p eye drops Persistent splenic abscess history of perisplenic/splenic abscess 02/2020, underwent IR drain in [facility] on 02/23, with history of Enterobacter species, and placed on Cipro and Flagyl for weeks. Currently afebrile, WBC wnl. Prior hospitalist before me she had spoke with Dr. Palmer (ID) at [facility], and we do have the same record that the splenic collection was 7 cm largest diameter, and then 4 cm post IR drain there, and noted that on recent US it is 6.5cm, slightly larger. Agreed to have another IR drain previously; however, 04/01/20 refused drainage due to it being high risk with them needing to pass needle through pleural space. Per Dr. Kent (radiologist), this would put him at increased risk for empyema, pneumothorax. Completed course of antibiotic therapy Failure to thrive 2/2 to several acute on chronic issues, multiple recent hospitalizations. Decline this hospital stay. Family met with palliative care. Poor oral intake, nausea likely 2/2 to acute infection/illness above. Residuals high , stopped tube feedings. Discussed with surgery and suggested IR to do G to J tube conversion which will occur on 04/08/20. IR consulted. Not eating from his diet well but will c/w low fat diet, pancreatic enzymes with meals. Encouraging fluids Q2 hrs. Zofran ATC. Palliative care brought up with patient due to health decline, multiple hospitalizations and chronic pain. -IR was to convert G to J tube but noted that his G was surgically/endoscopically placed and actually has a mushroom cap that makes it difficult for IR to remove not being a deflatable balloon. -Remains FULL CODE. Multiple discussions with Mr. Shipman and his fiance and he does not participate actively frankly and she has been leading the decision to continue FULL CODE at this time. MARYT on Chronic kidney disease stage III Stable today History of chronic pancreatitis. Chart mention of autoimmune pancreatitis. lipase, CMP improved. Abdominal pain improving; however, still requiring some morphine PRN. Poor intake, now changed to low fat diet with pancreatic enzymes with meals. Will add Ensure Hx of CVA. C/w plavix, not on statin. Hx of PE/DVT, DVT px. Eliquis BID Deconditioning Secondary to multiple comorbidities PT/OT Insomnia Rozerem daily at bedtime VS,Fishbone, I+O VS, Fishbone, I+O Laboratory Tests 04/20/20 06:15 Vital Signs Date Time Temp Pulse Resp B/P (MAP) Pulse Ox O2 Delivery O2 Flow Rate FiO2 04/20/20 12:05 86 Room Air 04/20/20 10:19 17 04/20/20 09:57 61 119/79 (92) 04/20/20 06:00 96.3 04/18/20 12:00 I&O- Last 24 Hours up to 6 AM 04/20/20 05:59 Intake Total 790 ml Output Total 100 ml Balance 690 ml JENNIFER ROMERO DO Apr 20, 2020 14:00
[2020-04-20] MEDS: RAMELTEON 8 MG TAB (ROZEREM) PO SCH (20:32)
[2020-04-20 22:00] VITALS: BP 112/64
[2020-04-21] MEDS: ONDANSETRON 4 MG ORAL DISINTEGRATING TAB PO SCH ×3 (05:00→17:17)
[2020-04-21 05:39] LABS: BASO # 0.1 10^3/uL (0.0-0.2); BASO % 0.7 % (0.0-1.0); EOS # 0.4 10^3/uL (0.0-0.5); EOS % 4.1 % (0.0-3.0); HEMOGLOBIN 11.8 g/dl (13.5-17.5); LYMPH # 0.9 10^3/uL (1.5-5.0); LYMPH % 9.1 % (24.0-44.0); MEAN CORPUSCULAR HEMOGLOBIN 29.2 pg (27.0-33.0); MEAN CORPUSCULAR HGB CONC 31.1 g/dl (32.0-36.5); MEAN CORPUSCULAR VOLUME 94.1 fl (80.0-96.0); MONO % 9.8 % (0.0-5.0); NEUTROPHILS # 7.5 10^3/uL (1.5-8.5); NEUTROPHILS % 75.8 % (36.0-66.0); PLATELET COUNT, AUTOMATED 238 10^3/uL (150-450); RED BLOOD COUNT 4.04 10^6/uL (4.30-6.10)
[2020-04-21] MEDS: SODIUM CHLORIDE 0.9% INJ 10 ML SYR IV SCH ×2 (05:42→17:17)
[2020-04-21 06:00] VITALS: BP 114/74
[2020-04-21 06:03] LABS: ERYTHROCYTE SEDIMENTATION RATE 39 mm/hr (0-20)
[2020-04-21 06:11] LABS: ALBUMIN 1.6 GM/DL (3.2-5.2); BILIRUBIN,TOTAL 0.5 MG/DL (0.2-1.0); C REACTIVE PROTEIN QUANTITATIV 8.78 MG/DL (0.00-0.30); CALCIUM LEVEL 7.9 MG/DL (8.5-10.1); CREATININE FOR GFR 2.79 MG/DL (0.70-1.30); GLOMERULAR FILTRATION RATE 25.7 (>56); POTASSIUM SERUM 4.7 MEQ/L (3.5-5.1); TOTAL PROTEIN 5.8 GM/DL (6.4-8.2)
[2020-04-21] MEDS: IPRATROPIUM 0.5MG/ALBUTEROL 2.5MG INH SOL UD 3ML (DUONEB) NEB SCH ×2 (07:24→19:51)
[2020-04-21] MEDS: TIOTROPIUM INHALER/CAPSULE (SPIRIVA) INH SCH (07:25)
[2020-04-21] MEDS: CARVedilol 3.125 MG TAB PO SCH ×2 (08:03→21:00)
[2020-04-21] MEDS: FUROSEMIDE 40 MG TAB PO SCH (08:04)
[2020-04-21] MEDS: AMIODARONE 200 MG TAB (PACERONE) PO SCH ×2 (08:04→21:31)
[2020-04-21] MEDS: APIXABAN 5 MG TAB (ELIQUIS) PO SCH ×2 (08:04→21:31)
[2020-04-21] MEDS: CLOPIDOGREL 75 MG TAB PO SCH (08:04)
[2020-04-21] MEDS: PANTOPRAZOLE 40MG VIAL (C9113 PER 1) IV SCH (08:04)
[2020-04-21] MEDS: FLUoxetine 20 MG CAP PO SCH (08:04)
[2020-04-21] MEDS: CHLORHEXIDINE GLUCONATE 0.12 % 15ML UDC (PERIDEX ORAL RINSE) SSP SCH ×3 (08:04→21:31)
[2020-04-21] MEDS: LACTOBACILLUS ACIDOPHILUS CAP (BACID) PO SCH ×2 (08:04→17:17)
[2020-04-21] MEDS: ursodioL 300 MG CAP PO SCH ×2 (08:04→21:31)
[2020-04-21] MEDS: CREON-12 CAPSULE PO SCH ×3 (08:05→17:17)
[2020-04-21] MEDS: HumaLOG INSULIN (NovoLOG) PER UNIT SC SCH ×3 (08:05→17:45)
[2020-04-21] MEDS: ENTRESTO 24-26MG TABLET (SACUBITRIL/VALSARTAN) PO SCH ×2 (08:05→21:31)
[2020-04-21] MEDS ORDERED: DEXTROSE 50% 50 ML SYRINGE IV PRN (11:30)
[2020-04-21] MEDS ORDERED: GLUCAGON INJ 1MG VIAL SC PRN (11:30)
[2020-04-21] MEDS ORDERED: GLUCOSE 4GM CHEW TABLET PO PRN (11:30)
[2020-04-21 14:00] VITALS: BP 108/72
[2020-04-21] MEDS: PERCOCET 5MG/325MG TAB PO PRN (14:54)
--- NOTE | 2020-04-21 16:43 | IPNPDOC ---
Text Note Date of Service The patient was seen on 04/21/20. NOTE Subjective: No any acute events overnight. Patient continues to have poor zoila etite, but tolerate PEG tube feeding. I talked to the cardiac team at [facility] about transfer. Transfer was declined due to no indications for cardiac transplant for now. PHYSICAL EXAMINATION: General: NAD, critically ill appearing, cachectic HEENT: PERRLA, EOMI NECK: supple, no cervical tenderness CHEST: crackles bilateral lower lung patterson, otherwise with poor effort CVS; RRR, no mrg GI: soft, positive normoactive bowel sounds, left upper quadrant tenderness, peg tube in place, no guarding noted. EXTREMITIES: no limitation of ROM, no leg edema DISASTER RECOVERY ANALYST: CN II-XII grossly intact, no focal sensory or motor deficits ASSESSMENT: 49 y/o M PMH of a history of pancreatitis c/b necrotic pseudocyst s/p drainage, as well as a history of a splenic abscess s/p drainage and abx, admitted for abdominal pain and found to have a persistent splenic collection, as well as suspicion for PNA and systolic CHF exacerbation with course c/b hypoxemic respiratory failure, anorexia with inability to tolerate much PO or tube feeds, recently started on TPN c/b worsening hypoxemia and worsening bibasilar opacities and worsening leukocytosis that has improved after stopping TPN, diuresis and addition of Vancomycin. Altered mental status Resolved In the morning patient was alert and oriented Acute hypoxemic respiratory failure Most likely secondary to acute CHF, atelectasis and pulmonary edema Blood culture negative Continue incentive spirometry Acute on chronic systolic CHF with exacerbation. Hx of cardiomyopathy, CABG, s/p AICD and biventricular PM- follows with Dr. Giordano has not been on this medication since admission due to worsening renal failure -Nephrology signed off. Will diurese PRN Conjunctivitis: continue polymixin B/trimethoprim eye drops. -s/p eye drops Persistent splenic abscess history of perisplenic/splenic abscess 02/2020, underwent IR drain in [facility] on 02/23, with history of Enterobacter species, and placed on Cipro and Flagyl for weeks. Currently afebrile, WBC wnl. Prior hospitalist before dc she had spoke with Dr. Palmer (ID) at [facility], and we do have the same record that the splenic collection was 7 cm largest diameter, and then 4 cm post IR drain there, and noted that on recent US it is 6.5cm, slightly larger. Agreed to have another IR drain previously; however, 04/01/20 refused drainage due to it being high risk with them needing to pass needle through pleural space. Per Dr. Kent (radiologist), this would put him at increased risk for empyema, pneumothorax. -consulted Dr. Hector Completed course of antibiotic therapy Failure to thrive 2/2 to several acute on chronic issues, multiple recent hospitalizations. Decline this hospital stay. Family met with palliative care. Poor oral intake, nausea likely 2/2 to acute infection/illness above. Residuals high , stopped tube feedings. Discussed with surgery and suggested IR to do G to J tube conversion which will occur on 04/08/20. IR consulted. Not eating from his diet well but will c/w low fat diet, pancreatic enzymes with meals. Encouraging fluids Q2 hrs. Zofran ATC. Palliative care brought up with patient due to health decline, multiple hospitalizations and chronic pain. -IR was to convert G to J tube but noted that his G was surgically/endoscopical ly placed and actually has a mushroom cap that makes it difficult for IR to remove not being a deflatable balloon. -Remains FULL CODE. Multiple discussions with Mr. Shipman and his fiance and he does not participate actively frankly and she has been leading the decision to continue FULL CODE at this time. MARTY on Chronic kidney disease stage III Stable today History of chronic pancreatitis. Chart mention of autoimmune pancreatitis. lipase, CMP improved. Abdominal pain improving; however, still requiring some morphine PRN. Poor intake, now changed to low fat diet with pancreatic enzymes with meals. Will add Ensure Hx of CVA. C/w plavix, not on statin. Hx of PE/DVT, DVT px. Eliquis BID Deconditioning Secondary to multiple comorbidities PT/OT Insomnia Rozerem daily at bedtime VS,Fishbone, I+O VS, Fishbone, I+O Laboratory Tests 04/21/20 05:22 Vital Signs Date Time Temp Pulse Resp B/P (MAP) Pulse Ox O2 Delivery O2 Flow Rate FiO2 04/21/20 15:24 16 04/21/20 08:03 62 109/71 04/21/20 06:00 96.5 90 Nasal Cannula 2.0 I&O- Last 24 Hours up to 6 AM 04/21/20 06:00 Intake Total 420 ml Output Total 450 ml Balance -30 ml JENNIFER ROMERO DO Apr 21, 2020 16:43
[2020-04-21] MEDS: RAMELTEON 8 MG TAB (ROZEREM) PO SCH (21:31)
[2020-04-21] MEDS: ACETAMINOPHEN 500 MG TAB PO PRN (21:32)
[2020-04-21 22:00] VITALS: BP 107/70
[2020-04-22] MEDS: ONDANSETRON 4 MG ORAL DISINTEGRATING TAB PO SCH ×4 (00:05→18:50)
[2020-04-22] MEDS: HumaLOG INSULIN (NovoLOG) PER UNIT SC SCH ×3 (00:06→18:50)
[2020-04-22] MEDS: SODIUM CHLORIDE 0.9% INJ 10 ML SYR IV SCH ×2 (05:36→18:50)
[2020-04-22 06:00] VITALS: BP 104/77
[2020-04-22 06:11] LABS: BASO # 0.1 10^3/uL (0.0-0.2); BASO % 0.5 % (0.0-1.0); EOS # 0.4 10^3/uL (0.0-0.5); EOS % 3.7 % (0.0-3.0); HEMATOCRIT 39.3 % (42.0-52.0); LYMPH % 8.9 % (24.0-44.0); MEAN CORPUSCULAR HEMOGLOBIN 28.7 pg (27.0-33.0); MEAN CORPUSCULAR HGB CONC 30.5 g/dl (32.0-36.5); MONO # 0.8 10^3/uL (0.0-0.8); MONO % 7.7 % (0.0-5.0); NEUTROPHILS # 8.6 10^3/uL (1.5-8.5); NEUTROPHILS % 78.8 % (36.0-66.0); PLATELET COUNT, AUTOMATED 224 10^3/uL (150-450); RED BLOOD COUNT 4.18 10^6/uL (4.30-6.10); WHITE BLOOD COUNT 10.9 10^3/uL (4.0-10.0)
[2020-04-22 06:43] LABS: ALBUMIN 1.7 GM/DL (3.2-5.2); BILIRUBIN,TOTAL 0.6 MG/DL (0.2-1.0); CREATININE FOR GFR 2.6 MG/DL (0.70-1.30); GLOMERULAR FILTRATION RATE 27.8 (>56); POTASSIUM SERUM 4.9 MEQ/L (3.5-5.1); TOTAL PROTEIN 6.1 GM/DL (6.4-8.2)
[2020-04-22] MEDS: TIOTROPIUM INHALER/CAPSULE (SPIRIVA) INH SCH (07:13)
[2020-04-22] MEDS: IPRATROPIUM 0.5MG/ALBUTEROL 2.5MG INH SOL UD 3ML (DUONEB) NEB SCH ×2 (07:13→20:00)
[2020-04-22] MEDS: CREON-12 CAPSULE PO SCH ×3 (08:00→18:50)
[2020-04-22] MEDS: CARVedilol 3.125 MG TAB PO SCH ×2 (09:00→21:00)
[2020-04-22] MEDS: CHLORHEXIDINE GLUCONATE 0.12 % 15ML UDC (PERIDEX ORAL RINSE) SSP SCH ×3 (10:17→22:01)
[2020-04-22] MEDS: ursodioL 300 MG CAP PO SCH ×2 (10:18→22:01)
[2020-04-22] MEDS: AMIODARONE 200 MG TAB (PACERONE) PO SCH ×2 (10:18→22:01)
[2020-04-22] MEDS: PANTOPRAZOLE 40MG VIAL (C9113 PER 1) IV SCH (10:18)
[2020-04-22] MEDS: ENTRESTO 24-26MG TABLET (SACUBITRIL/VALSARTAN) PO SCH ×2 (10:19→22:01)
[2020-04-22] MEDS: FLUoxetine 20 MG CAP PO SCH (10:19)
[2020-04-22] MEDS: FUROSEMIDE 40 MG TAB PO SCH (10:19)
[2020-04-22] MEDS: CLOPIDOGREL 75 MG TAB PO SCH (10:19)
[2020-04-22] MEDS: APIXABAN 5 MG TAB (ELIQUIS) PO SCH ×2 (10:20→22:02)
[2020-04-22] MEDS: LACTOBACILLUS ACIDOPHILUS CAP (BACID) PO SCH ×2 (10:26→18:50)
[2020-04-22] MEDS: SODIUM CHLORIDE 0.9% INJ 10 ML SYR IV PRN (10:27)
[2020-04-22] MEDS ORDERED: DEXTROSE 50% 50 ML SYRINGE IV PRN ×2 (11:15→17:30)
[2020-04-22] MEDS ORDERED: GLUCOSE 4GM CHEW TABLET PO PRN ×2 (11:15→17:30)
[2020-04-22] MEDS ORDERED: GLUCAGON INJ 1MG VIAL SC PRN ×2 (11:15→17:30)
[2020-04-22] MEDS ORDERED: HumaLOG INSULIN (NovoLOG) PER UNIT SC SCH ×2 (12:00→21:00)
--- NOTE | 2020-04-22 12:33 | IPN ---
DATE: 04/20/2020 SUBJECTIVE: Trever is still laying in bed with his eyes closed. He got some pain medication, and he is not able to get out of the bed to the chair, although on the weekend, Monday, he sat in his chair and was feeling better. His antibiotics were all discontinued yesterday including Fluconazole, Meropenem and Vancomycin. He remains afebrile and continues complaining of chronic abdominal pain. LABORATORY DATA: White count 8.8, hemoglobin 12.3, hematocrit 39._, platelet count 275,000, 70% neutrophils, 14% lymphocytes, 10% monocytes. ESR on 03/29/2020 was 40. Sodium 142, potassium 4.8, chloride 111, bicarb 22, BUN 78, creatinine 3, glucose 161, calcium 8.4. Magnesium 2.2, bilirubin 0.6, AST 31, ALT 6, alkaline phosphatase 160, total protein 5.9, albumin 1.6. Procalcitonin 0.7. VITAL SIGNS: Temperature 96.3, pulse 60, respirations 18, blood pressure 118/75, O2 sat 90% on 2 liters nasal cannula, 86% on room air. IMPRESSION: 1. Splenic abscess: Finished six weeks of Cipro and Flagyl, followed by ten days of Meropenem, Vancomycin and Fluconazole. Patient has been off antibiotics for 24 hours. He still had the collection, that is not able to be drained except through the lung. I am not sure if this is a sterile abscess. His ESR is around 40. 2. Bilateral lower lobe consolidations; status post a ten day course of broad spectrum antibiotic with Meropenem and Vancomycin. 3. Oral thrush: Resolved with Fluconazole. PLAN: Continue to monitor the splenic abscess, which is about 3.5 cm. If the inflammatory markers increase or the site of the lesion or abdominal pain gets worse, repeat CT of the abdomen and pelvis. If patient continues to deteriorate, he may benefit from transfer to tertiary care center to [facility] where his previous care was. For protein calorie malnutrition, patient would probably benefit from getting tube feeds since he is too tired to feed himself and has a poor appetite. MTDD
--- NOTE | 2020-04-22 13:56 | IPNPDOC ---
Text Note Date of Service The patient was seen on 04/22/20. NOTE Subjective: No any acute events overnight. PEG tube nonfunctioning, irrigation was unsuccessful PHYSICAL EXAMINATION: General: NAD, critically ill appearing, cachectic HEENT: PERRLA, EOMI NECK: supple, no cervical tenderness CHEST: crackles bilateral lower lung patterson, otherwise with poor effort CVS; RRR, no mrg GI: soft, positive normoactive bowel sounds, left upper quadrant tenderness, peg tube in place, no guarding noted. EXTREMITIES: no limitation of ROM, no leg edema RESIDENT MANAGER: CN II-XII grossly intact, no focal sensory or motor deficits ASSESSMENT: 49 y/o M PMH of a history of pancreatitis c/b necrotic pseudocyst s/p drainage, as well as a history of a splenic abscess s/p drainage and abx, admitted for abdominal pain and found to have a persistent splenic collection, as well as suspicion for PNA and systolic CHF exacerbation with course c/b hypoxemic respiratory failure, anorexia with inability to tolerate much PO or tube feeds, recently started on TPN c/b worsening hypoxemia and worsening bibasilar opacities and worsening leukocytosis that has improved after stopping TPN, diuresis and addition of Vancomycin. Altered mental status Resolved In the morning patient was alert and oriented Acute hypoxemic respiratory failure Most likely secondary to acute CHF, atelectasis and pulmonary edema Blood culture negative Continue incentive spirometry Acute on chronic systolic CHF with exacerbation. Hx of cardiomyopathy, CABG, s/p AICD and biventricular PM- follows with Dr. Giordano has not been on this medication since admission due to worsening renal failure -Nephrology signed off. Will diurese PRN Conjunctivitis: continue polymixin B/trimethoprim eye drops. -s/p eye drops Persistent splenic abscess history of perisplenic/splenic abscess 02/2020, underwent IR drain in [facility] on 02/23, with history of Enterobacter species, and placed on Cipro and Flagyl for weeks. Currently afebrile, WBC wnl. Prior hospitalist before me she had spoke with Dr. Palmer (ID) at [facility], and we do have the same record that the splenic collection was 7 cm largest diameter, and then 4 cm post IR drain there, and noted that on recent US it is 6.5cm, slightly larger. Agreed to have another IR drain previously; however, 04/01/[address] aelxis due to it being high risk with them needing to pass needle through pleural space. Per Dr. Kent (radiologist), this would put him at increased risk for empyema, pneumothorax. -consulted Dr. Hector -Completed course of antibiotic therapy Failure to thrive 2/2 to several acute on chronic issues, multiple recent hospitalizations. Decline this hospital stay. Family met with palliative care. Poor oral intake, nausea likely 2/2 to acute infection/illness above. Residuals high , stopped tube feedings. Discussed with surgery and suggested IR to do G to J tube conversion which will occur on 04/08/20. IR consulted. Not eating from his diet well but will c/w low fat diet, pancreatic enzymes with meals. Encouraging fluids Q2 hrs. Zofran ATC. Palliative care brought up with patient due to health decline, multiple hospitalizations and chronic pain. -IR was to convert G to J tube but noted that his G was surgically/endoscopically placed and actually has a mushroom cap that makes it difficult for IR to remove not being a deflatable balloon. -Remains FULL CODE. Multiple discussions with Mr. Shipman and his fiance and he does not participate actively frankly and she has been leading the decision to continue FULL CODE at this time. I talked to Dr. Iniguez, he will do revision of PEG tube today MARTY on Chronic kidney disease stage III Stable today History of chronic pancreatitis. Chart mention of autoimmune pancreatitis. lipase, CMP improved. Abdominal pain improving; however, still requiring some morphine PRN. Poor intake, now changed to low fat diet with pancreatic enzymes with meals. Will add Ensure Hx of CVA. C/w plavix, not on statin. Hx of PE/DVT, DVT px. Eliquis BID Deconditioning Secondary to multiple comorbidities PT/OT Insomnia Rozerem daily at bedtime VS,Fishbone, I+O VS, Fishbone, I+O Laboratory Tests 04/22/20 05:35 Vital Signs Date Time Temp Pulse Resp B/P (MAP) Pulse Ox O2 Delivery O2 Flow Rate FiO2 04/22/20 09:00 63 106/73 04/22/20 06:00 97.5 19 96 Nasal Cannula 2.0 I&O- Last 24 Hours up to 6 AM 04/22/20 06:00 Intake Total 390 ml Balance 390 ml JENNIFER ROMERO DO Apr 22, 2020 13:55
[2020-04-22 14:00] VITALS: BP 108/73
[2020-04-22 22:00] VITALS: BP 107/73
[2020-04-22] MEDS: RAMELTEON 8 MG TAB (ROZEREM) PO SCH (22:01)
[2020-04-22] MEDS: ACETAMINOPHEN 500 MG TAB PO PRN (22:02)
[2020-04-23] MEDS: ONDANSETRON 4 MG ORAL DISINTEGRATING TAB PO SCH ×5 (00:42→22:48)
[2020-04-23] MEDS: HumaLOG INSULIN (NovoLOG) PER UNIT SC SCH ×4 (00:43→17:56)
[2020-04-23 06:00] VITALS: BP 106/52
[2020-04-23] MEDS: SODIUM CHLORIDE 0.9% INJ 10 ML SYR IV SCH ×2 (06:26→17:55)
[2020-04-23 07:04] LABS: BASO # 0.1 10^3/uL (0.0-0.2); BASO % 0.5 % (0.0-1.0); EOS # 0.4 10^3/uL (0.0-0.5); EOS % 3.8 % (0.0-3.0); HEMATOCRIT 35.6 % (42.0-52.0); HEMOGLOBIN 10.9 g/dl (13.5-17.5); LYMPH # 1.1 10^3/uL (1.5-5.0); LYMPH % 9.6 % (24.0-44.0); MEAN CORPUSCULAR HEMOGLOBIN 28.8 pg (27.0-33.0); MEAN CORPUSCULAR HGB CONC 30.6 g/dl (32.0-36.5); MEAN CORPUSCULAR VOLUME 94.2 fl (80.0-96.0); MONO # 0.9 10^3/uL (0.0-0.8); MONO % 7.9 % (0.0-5.0); NEUTROPHILS # 8.6 10^3/uL (1.5-8.5); NEUTROPHILS % 77.7 % (36.0-66.0); PLATELET COUNT, AUTOMATED 204 10^3/uL (150-450); RED BLOOD COUNT 3.78 10^6/uL (4.30-6.10)
[2020-04-23 07:24] LABS: ALBUMIN 1.5 GM/DL (3.2-5.2); ALT/SGPT < 6 U/L (12-78); BILIRUBIN,TOTAL 0.6 MG/DL (0.2-1.0); BLOOD UREA NITROGEN 68 MG/DL (7-18); CALCIUM LEVEL 7.8 MG/DL (8.5-10.1); CARBON DIOXIDE LEVEL 26 MEQ/L (21-32); CHLORIDE LEVEL 109 MEQ/L (98-107); CREATININE FOR GFR 2.48 MG/DL (0.70-1.30); GLOMERULAR FILTRATION RATE 29.4 (>56); GLUCOSE, FASTING 181 MG/DL (70-100); MAGNESIUM LEVEL 2.1 MG/DL (1.8-2.4); SODIUM LEVEL 141 MEQ/L (136-145)
[2020-04-23] MEDS: IPRATROPIUM 0.5MG/ALBUTEROL 2.5MG INH SOL UD 3ML (DUONEB) NEB SCH ×2 (08:00→19:23)
[2020-04-23] MEDS: TIOTROPIUM INHALER/CAPSULE (SPIRIVA) INH SCH (08:00)
[2020-04-23] MEDS: SODIUM CHLORIDE 0.9% INJ 10 ML SYR IV PRN ×3 (08:50→23:51)
[2020-04-23] MEDS: PANTOPRAZOLE 40MG VIAL (C9113 PER 1) IV SCH (08:50)
[2020-04-23] MEDS: LACTOBACILLUS ACIDOPHILUS CAP (BACID) PO SCH ×2 (08:51→17:56)
[2020-04-23] MEDS: ursodioL 300 MG CAP PO SCH ×2 (08:51→21:35)
[2020-04-23] MEDS: APIXABAN 5 MG TAB (ELIQUIS) PO SCH ×2 (08:51→21:35)
[2020-04-23] MEDS: CREON-12 CAPSULE PO SCH ×3 (08:51→17:56)
[2020-04-23] MEDS: FUROSEMIDE 40 MG TAB PO SCH (08:51)
[2020-04-23] MEDS: AMIODARONE 200 MG TAB (PACERONE) PO SCH ×2 (08:51→21:36)
[2020-04-23] MEDS: ENTRESTO 24-26MG TABLET (SACUBITRIL/VALSARTAN) PO SCH ×2 (08:51→21:36)
[2020-04-23] MEDS: FLUoxetine 20 MG CAP PO SCH (08:51)
[2020-04-23] MEDS: CHLORHEXIDINE GLUCONATE 0.12 % 15ML UDC (PERIDEX ORAL RINSE) SSP SCH ×4 (08:52→21:37)
[2020-04-23] MEDS: CLOPIDOGREL 75 MG TAB PO SCH (08:52)
[2020-04-23] MEDS: CARVedilol 3.125 MG TAB PO SCH ×2 (08:53→21:37)
[2020-04-23] MEDS: MORPHINE 2 MG/ML 1ML VIAL (J2270) IV PRN ×2 (12:37→23:50)
--- NOTE | 2020-04-23 13:42 | IPNPDOC ---
Text Note Date of Service The patient was seen on 04/23/20. NOTE Subjective: No any acute events overnight. PEG tube functioning. PHYSICAL EXAMINATION: General: NAD, critically ill appearing, cachectic HEENT: PERRLA, EOMI NECK: supple, no cervical tenderness CHEST: crackles bilateral lower lung patterson, otherwise with poor effort CVS; RRR, no mrg GI: soft, positive normoactive bowel sounds, left upper quadrant tenderness, peg tube in place, no guarding noted. EXTREMITIES: no limitation of ROM, no leg edema PIPE FITTER GAS PIPE: CN II-XII grossly intact, no focal sensory or motor deficits ASSESSMENT: 49 y/o M PMH of a history of pancreatitis c/b necrotic pseudocyst s/p drainage, as well as a history of a splenic abscess s/p drainage and abx, admitted for abdominal pain and found to have a persistent splenic collection, as well as suspicion for PNA and systolic CHF exacerbation with course c/b hypoxemic respiratory failure, anorexia with inability to tolerate much PO or tube feeds, recently started on TPN c/b worsening hypoxemia and worsening bibasilar opacities and worsening leukocytosis that has improved after stopping TPN, diuresis and addition of Vancomycin. Altered mental status Resolved In the morning patient was alert and oriented Acute hypoxemic respiratory failure Resolved Most likely secondary to acute CHF, atelectasis and pulmonary edema Blood culture negative Continue incentive spirometry Acute on chronic systolic CHF with exacerbation. Hx of cardiomyopathy, CABG, s/p AICD and biventricular PM- follows with Dr. Giordano has not been on this medication since admission due to worsening renal failure -Nephrology signed off. Will diurese PRN Conjunctivitis: continue polymixin B/trimethoprim eye drops. -s/p eye drops Persistent splenic abscess history of perisplenic/splenic abscess 02/2020, underwent IR drain in [facility] on 02/23, with history of Enterobacter species, and placed on Cipro and Flagyl for weeks. Currently afebrile, WBC wnl. Prior hospitalist before me she had spoke with Dr. Palmer (ID) at [facility], and we do have the same record that the splenic collection was 7 cm largest diameter, and then 4 cm post IR drain there, and noted that on recent US it is 6.5cm, slightly la rger. Agreed to have another IR drain previously; however, 04/01/20 refused drainage due to it being high risk with them needing to pass needle through pleural space. Per Dr. Kent (radiologist), this would put him at increased risk for empyema, pneumothorax. -consulted Dr. Hector -Completed course of antibiotic therapy Failure to thrive 2/2 to several acute on chronic issues, multiple recent hospit alizations. Decline this hospital stay. Family met with palliative care. Poor oral intake, nausea likely 2/2 to acute infection/illness above. Residuals high , stopped tube feedings. Discussed with surgery and suggested IR to do G to J tube conversion which will occur on 04/08/20. IR consulted. Not eating from his diet well but will c/w low fat diet, pancreatic enzymes with meals. Encouraging flui ds Q2 hrs. Starrfran ATC. Palliative care brought up with patient due to health decline, multiple hospitalizations and chronic pain. -IR was to convert G to J tube but noted that his G was surgically/en doscopically placed and actually has a mushroom cap that makes it difficult for IR to remove not being a deflatable balloon. -Remains FULL CODE. Multiple discussions with Mr. Shipman and his fiance and he does not participate actively frankly and she has been leading the decision to continue FULL CODE at this time. I talked to Dr. Iniguez, he will do revision of PEG tube today MARTY on Chronic kidney disease stage III Stable today History of chronic pancreatitis. Chart mention of autoimmune pancreatitis. lipase, CMP improved. Abdominal pain improving; however, still requiring some morphine PRN. Poor intake, now changed to low fat diet with pancreatic enzymes with meals. Will add Ensure Hx of CVA. C/w plavix, not on statin. Hx of PE/DVT, DVT px. Eliquis BID Deconditioning Secondary to multiple comorbidities PT/OT Insomnia Rozerem daily at bedtime VS,Fishbone, I+O VS, Fishbone, I+O Laboratory Tests 04/23/20 06:23 Vital Signs Date Time Temp Pulse Resp B/P (MAP) Pulse Ox O2 Delivery O2 Flow Rate FiO2 04/23/20 12:47 16 Room Air 04/23/20 08:53 65 109/74 04/23/20 06:00 97.2 95 2.0 I&O- Last 24 Hours up to 6 AM 04/23/20 06:00 Intake Total 840 ml Output Total 450 ml Balance 390 ml DROZHZHIN,JENNIFER DO Apr 23, 2020 13:42
[2020-04-23 14:00] VITALS: BP 119/78
[2020-04-23] MEDS: PERCOCET 5MG/325MG TAB PO PRN ×2 (17:22→21:38)
[2020-04-23] MEDS: RAMELTEON 8 MG TAB (ROZEREM) PO SCH (21:36)
[2020-04-23 22:00] VITALS: BP 126/76
[2020-04-24] MEDS: PERCOCET 5MG/325MG TAB PO PRN (04:09)
[2020-04-24] MEDS: HumaLOG INSULIN (NovoLOG) PER UNIT SC SCH ×4 (05:48→17:47)
[2020-04-24] MEDS: SODIUM CHLORIDE 0.9% INJ 10 ML SYR IV PRN ×2 (05:58→14:39)
[2020-04-24] MEDS: ONDANSETRON 4 MG ORAL DISINTEGRATING TAB PO SCH ×4 (05:58→21:00)
[2020-04-24] MEDS: SODIUM CHLORIDE 0.9% INJ 10 ML SYR IV SCH ×2 (05:58→17:48)
[2020-04-24 06:00] VITALS: BP 124/78
[2020-04-24 06:25] LABS: BASO # 0.1 10^3/uL (0.0-0.2); BASO % 0.5 % (0.0-1.0); EOS # 0.5 10^3/uL (0.0-0.5); HEMATOCRIT 37.3 % (42.0-52.0); HEMOGLOBIN 11.4 g/dl (13.5-17.5); LYMPH % 8.6 % (24.0-44.0); MEAN CORPUSCULAR HEMOGLOBIN 28.8 pg (27.0-33.0); MEAN CORPUSCULAR HGB CONC 30.6 g/dl (32.0-36.5); MEAN CORPUSCULAR VOLUME 94.2 fl (80.0-96.0); MONO # 0.9 10^3/uL (0.0-0.8); MONO % 7.2 % (0.0-5.0); NEUTROPHILS # 9.5 10^3/uL (1.5-8.5); NEUTROPHILS % 79.3 % (36.0-66.0); PLATELET COUNT, AUTOMATED 200 10^3/uL (150-450); RED BLOOD COUNT 3.96 10^6/uL (4.30-6.10)
[2020-04-24 06:45] LABS: ALBUMIN 1.6 GM/DL (3.2-5.2); BILIRUBIN,TOTAL 0.6 MG/DL (0.2-1.0); CALCIUM LEVEL 8.1 MG/DL (8.5-10.1); CREATININE FOR GFR 2.46 MG/DL (0.70-1.30); GLOMERULAR FILTRATION RATE 29.7 (>56); MAGNESIUM LEVEL 2.1 MG/DL (1.8-2.4); TOTAL PROTEIN 6.2 GM/DL (6.4-8.2)
[2020-04-24] MEDS: TIOTROPIUM INHALER/CAPSULE (SPIRIVA) INH SCH (07:41)
[2020-04-24] MEDS: IPRATROPIUM 0.5MG/ALBUTEROL 2.5MG INH SOL UD 3ML (DUONEB) NEB SCH ×2 (07:42→20:00)
--- NOTE | 2020-04-24 07:46 | CR ---
DATE OF CONSULTATION: 04/22/2020 REASON FOR CONSULTATION: Malfunctioning G tube. BRIEF HISTORY OF PRESENT ILLNESS: Patient is a 49-year-old male, who was admitted with a complicated medical history, who essentially had suffered from a stroke, has had chronic pancreatitis issues, colectomy, etc., coronary artery disease and has had a splenic abscess, essentially is having a poor p.o. intake and I was asked to adjust his gastrostomy tube which was nonfunctioning/plugged. PAST MEDICAL HISTORY: Significant for history of coronary artery disease, history of pacemaker, history of defibrillator, history of hemicolectomy, history of ischemic colitis, history of stroke, history of chronic pancreatitis, history of dilated cardiomyopathy, insulin-dependent diabetes mellitus, hypertension, stroke, COPD, sleep apnea, hyperlipidemia, depression. MEDICATIONS ON ADMISSION: Amiodarone, Eliquis, Carvedilol, Plavix, Iron, Fluoxetine, Furosemide, insulin, multivitamin, Pantoprazole, sodium bicarb, Spiriva, Isordil, Albuterol, Nitroglycerin, Zofran. PHYSICAL EXAMINATION: The patient is partially unresponsive and sedated. Lungs are clear anteriorly. Heart is regular with multiple irregular beats. Abdomen is soft, nontender, non-distended. His G tube is very discolored and has some tube feeds within it. I used a central line wire to probe the tube itself and it really was plugged right before it went into the abdominal cavity. Thus I cut it shorter and was able to probe through this area with a Q-tip and was able to dislodge the impacted food/pills within the tube itself and when it was cut to the shorter distant, reapplied the adapter and flushed easily at this time. IMPRESSION/PLAN: G tube was nonfunctioning now it is functioning well. Unfortunately, it is a little bit shorter at this time, but I would recommend continuing with local care as previously done and it is okay to use for feeds as previously used. KENDELL
[2020-04-24] MEDS: FLUoxetine 20 MG CAP PO SCH (08:47)
[2020-04-24] MEDS: CREON-12 CAPSULE PO SCH ×3 (08:47→17:47)
[2020-04-24] MEDS: CLOPIDOGREL 75 MG TAB PO SCH (08:47)
[2020-04-24] MEDS: CHLORHEXIDINE GLUCONATE 0.12 % 15ML UDC (PERIDEX ORAL RINSE) SSP SCH ×3 (08:47→20:57)
[2020-04-24] MEDS: APIXABAN 5 MG TAB (ELIQUIS) PO SCH ×2 (08:47→21:00)
[2020-04-24] MEDS: FUROSEMIDE 40 MG TAB PO SCH (08:47)
[2020-04-24] MEDS: ursodioL 300 MG CAP PO SCH ×2 (08:47→21:01)
[2020-04-24] MEDS: ENTRESTO 24-26MG TABLET (SACUBITRIL/VALSARTAN) PO SCH ×2 (08:48→21:00)
[2020-04-24] MEDS: LACTOBACILLUS ACIDOPHILUS CAP (BACID) PO SCH ×2 (08:48→17:47)
[2020-04-24] MEDS: AMIODARONE 200 MG TAB (PACERONE) PO SCH ×2 (08:48→21:00)
[2020-04-24] MEDS: PANTOPRAZOLE 40MG VIAL (C9113 PER 1) IV SCH (08:51)
[2020-04-24] MEDS: CARVedilol 3.125 MG TAB PO SCH ×2 (08:51→21:00)
[2020-04-24 14:00] VITALS: BP 123/79
[2020-04-24] MEDS: MORPHINE 2 MG/ML 1ML VIAL (J2270) IV PRN (14:39)
[2020-04-24] MEDS: RAMELTEON 8 MG TAB (ROZEREM) PO SCH (21:01)
[2020-04-24 22:00] VITALS: BP 117/78
[2020-04-25] MEDS: MORPHINE 2 MG/ML 1ML VIAL (J2270) IV PRN ×4 (00:06→20:16)
[2020-04-25] MEDS: HumaLOG INSULIN (NovoLOG) PER UNIT SC SCH ×4 (00:07→17:51)
[2020-04-25] MEDS: ONDANSETRON 4 MG ORAL DISINTEGRATING TAB PO SCH ×3 (04:48→17:50)
[2020-04-25 06:00] VITALS: BP 116/78
[2020-04-25] MEDS: SODIUM CHLORIDE 0.9% INJ 10 ML SYR IV SCH ×2 (06:25→17:51)
[2020-04-25] MEDS: TIOTROPIUM INHALER/CAPSULE (SPIRIVA) INH SCH (07:47)
[2020-04-25] MEDS: IPRATROPIUM 0.5MG/ALBUTEROL 2.5MG INH SOL UD 3ML (DUONEB) NEB SCH ×2 (07:47→20:00)
[2020-04-25] MEDS: CHLORHEXIDINE GLUCONATE 0.12 % 15ML UDC (PERIDEX ORAL RINSE) SSP SCH ×3 (09:30→20:18)
[2020-04-25] MEDS: PANTOPRAZOLE 40MG VIAL (C9113 PER 1) IV SCH (09:30)
[2020-04-25] MEDS: CREON-12 CAPSULE PO SCH ×3 (09:32→17:50)
[2020-04-25] MEDS: APIXABAN 5 MG TAB (ELIQUIS) PO SCH ×2 (09:32→20:09)
[2020-04-25] MEDS: AMIODARONE 200 MG TAB (PACERONE) PO SCH ×2 (09:32→20:09)
[2020-04-25] MEDS: FLUoxetine 20 MG CAP PO SCH (09:32)
[2020-04-25] MEDS: FUROSEMIDE 40 MG TAB PO SCH (09:32)
[2020-04-25] MEDS: ursodioL 300 MG CAP PO SCH ×2 (09:32→20:09)
[2020-04-25] MEDS: ENTRESTO 24-26MG TABLET (SACUBITRIL/VALSARTAN) PO SCH ×2 (09:33→20:09)
[2020-04-25] MEDS: LACTOBACILLUS ACIDOPHILUS CAP (BACID) PO SCH ×2 (09:33→17:50)
[2020-04-25] MEDS: CARVedilol 3.125 MG TAB PO SCH ×2 (09:33→20:09)
[2020-04-25] MEDS: CLOPIDOGREL 75 MG TAB PO SCH (09:33)
[2020-04-25] MEDS: SODIUM CHLORIDE 0.9% INJ 10 ML SYR IV PRN (15:36)
[2020-04-25] MEDS ORDERED: TRIMETHOBENZAMIDE 300 MG CAP PO PRN (19:00)
[2020-04-25] MEDS ORDERED: ONDANSETRON 4 MG ORAL DISINTEGRATING TAB PO PRN (20:00)
[2020-04-25] MEDS: RAMELTEON 8 MG TAB (ROZEREM) PO SCH (20:09)
[2020-04-26] MEDS: HumaLOG INSULIN (NovoLOG) PER UNIT SC SCH ×5 (00:22→23:53)
[2020-04-26] MEDS: SODIUM CHLORIDE 0.9% INJ 10 ML SYR IV SCH ×2 (05:36→17:43)
[2020-04-26] MEDS: MORPHINE 2 MG/ML 1ML VIAL (J2270) IV PRN ×3 (05:36→18:53)
[2020-04-26 06:00] VITALS: BP 116/76
[2020-04-26] MEDS: TIOTROPIUM INHALER/CAPSULE (SPIRIVA) INH SCH (07:37)
[2020-04-26] MEDS: IPRATROPIUM 0.5MG/ALBUTEROL 2.5MG INH SOL UD 3ML (DUONEB) NEB SCH ×2 (07:38→19:33)
[2020-04-26] MEDS: CHLORHEXIDINE GLUCONATE 0.12 % 15ML UDC (PERIDEX ORAL RINSE) SSP SCH ×3 (09:00→20:09)
[2020-04-26] MEDS: FLUoxetine 20 MG CAP PO SCH (09:43)
[2020-04-26] MEDS: ENTRESTO 24-26MG TABLET (SACUBITRIL/VALSARTAN) PO SCH ×2 (09:43→20:08)
[2020-04-26] MEDS: LACTOBACILLUS ACIDOPHILUS CAP (BACID) PO SCH ×2 (09:43→17:42)
[2020-04-26] MEDS: CREON-12 CAPSULE PO SCH ×3 (09:43→17:42)
[2020-04-26] MEDS: PANTOPRAZOLE 40MG VIAL (C9113 PER 1) IV SCH (09:43)
[2020-04-26] MEDS: APIXABAN 5 MG TAB (ELIQUIS) PO SCH ×2 (09:43→20:08)
[2020-04-26] MEDS: FUROSEMIDE 40 MG TAB PO SCH (09:44)
[2020-04-26] MEDS: ursodioL 300 MG CAP PO SCH ×2 (09:44→20:08)
[2020-04-26] MEDS: CLOPIDOGREL 75 MG TAB PO SCH (09:44)
[2020-04-26] MEDS: CARVedilol 3.125 MG TAB PO SCH ×2 (09:44→20:09)
[2020-04-26] MEDS: AMIODARONE 200 MG TAB (PACERONE) PO SCH ×2 (09:44→20:09)
[2020-04-26] MEDS ORDERED: MORPHINE 2 MG/ML 1ML VIAL (J2270) IV ONE (12:30)
[2020-04-26] MEDS: TRIMETHOBENZAMIDE 300 MG CAP PO PRN ×2 (17:42→21:39)
[2020-04-26] MEDS: RAMELTEON 8 MG TAB (ROZEREM) PO SCH (20:08)
[2020-04-27] MEDS: MORPHINE 2 MG/ML 1ML VIAL (J2270) IV PRN ×4 (05:14→23:59)
[2020-04-27 06:00] VITALS: BP 114/75
[2020-04-27] MEDS: SODIUM CHLORIDE 0.9% INJ 10 ML SYR IV SCH ×2 (06:09→17:37)
[2020-04-27] MEDS: HumaLOG INSULIN (NovoLOG) PER UNIT SC SCH ×3 (06:10→17:38)
[2020-04-27] MEDS: TIOTROPIUM INHALER/CAPSULE (SPIRIVA) INH SCH (07:19)
[2020-04-27] MEDS: IPRATROPIUM 0.5MG/ALBUTEROL 2.5MG INH SOL UD 3ML (DUONEB) NEB SCH ×2 (07:19→16:43)
[2020-04-27] MEDS: ENTRESTO 24-26MG TABLET (SACUBITRIL/VALSARTAN) PO SCH ×2 (08:49→22:21)
[2020-04-27] MEDS: FUROSEMIDE 40 MG TAB PO SCH (08:50)
[2020-04-27] MEDS: CHLORHEXIDINE GLUCONATE 0.12 % 15ML UDC (PERIDEX ORAL RINSE) SSP SCH ×3 (08:50→21:00)
[2020-04-27] MEDS: CARVedilol 3.125 MG TAB PO SCH ×2 (08:52→22:22)
[2020-04-27] MEDS: PANTOPRAZOLE 40MG VIAL (C9113 PER 1) IV SCH (08:52)
[2020-04-27] MEDS: FLUoxetine 20 MG CAP PO SCH (08:53)
[2020-04-27] MEDS: ursodioL 300 MG CAP PO SCH ×2 (08:53→22:21)
[2020-04-27] MEDS: LACTOBACILLUS ACIDOPHILUS CAP (BACID) PO SCH ×2 (08:53→18:36)
[2020-04-27] MEDS: CLOPIDOGREL 75 MG TAB PO SCH (08:54)
[2020-04-27] MEDS: APIXABAN 5 MG TAB (ELIQUIS) PO SCH ×2 (08:54→22:21)
[2020-04-27] MEDS: AMIODARONE 200 MG TAB (PACERONE) PO SCH ×2 (08:54→22:21)
[2020-04-27] MEDS: CREON-12 CAPSULE PO SCH ×3 (08:55→17:37)
[2020-04-27 09:00] VITALS: BP 113/75
[2020-04-27 14:00] VITALS: BP 117/79
[2020-04-27] MEDS: TRIMETHOBENZAMIDE 300 MG CAP PO PRN (17:37)
[2020-04-27] MEDS ORDERED: MORPHINE 2 MG/ML 1ML VIAL (J2270) IV ONE (18:15)
--- NOTE | 2020-04-27 19:44 | REPVR ---
PROCEDURE INFORMATION: Exam: CT Abdomen And Pelvis Without Contrast Exam date and time: 04/27/2020 6:53 PM Age: 49 years old Clinical indication: Abdominal pain; Generalized TECHNIQUE: Imaging protocol: Computed tomography of the abdomen and pelvis without contrast. Radiation optimization: All CT scans at this facility use at least one of these dose optimization techniques: automated exposure control; mA and/or kV adjustment per patient size (includes targeted exams where dose is matched to clinical indication); or iterative reconstruction. COMPARISON: CT ABD PELVIS W/O CONTRAST 04/11/2020 2:51 PM FINDINGS: Tubes, catheters and devices: Pacemaker leads. Pleural space: Small bilateral pleural effusions. Consolidations at bilateral lung bases, likely representing pneumonia. Redemonstration of a small pleural fluid collection adjacent to the spleen measuring 3.3 cm unchanged from prior study. Heart: Cardiomegaly. Liver: Normal. No mass. Gallbladder and bile ducts: Gallbladder stone and sludge. Pancreas: Poor definition of the pancreatic head and tail. The pancreatic mass cannot be excluded. Spleen: Normal. No splenomegaly. Adrenals: Normal. No mass. Kidneys and ureters: Normal. No hydronephrosis. Stomach and bowel: Right lower quadrant colostomy. Appendix: No evidence of appendicitis. Intraperitoneal space: Moderate ascites in the abdomen and pelvis. Vasculature: Atherosclerotic calcification of the abdominal aorta and bilateral iliac vessels. Lymph nodes: Unremarkable. No enlarged lymph nodes. Bladder: Unremarkable as visualized. Reproductive: Unremarkable as visualized. Bones/joints: Unremarkable. No acute fracture. Soft tissues: Unremarkable. IMPRESSION: 1. Bilateral small pleural effusions with the atelectasis at bilateral lung bases. Pneumonia at visualized lung bases. Findings more prominent than prior examination. 2. Interval increase in the abdominal and pelvic ascites. Electronically signed by: Arvin Churchill On 04/27/2020 19:44:33 PM
[2020-04-27] MEDS: RAMELTEON 8 MG TAB (ROZEREM) PO SCH (22:21)
[2020-04-28] MEDS: SODIUM CHLORIDE 0.9% INJ 10 ML SYR IV PRN ×2 (00:20→10:09)
[2020-04-28 06:00] VITALS: BP 116/78
[2020-04-28] MEDS: MORPHINE 2 MG/ML 1ML VIAL (J2270) IV PRN ×3 (06:12→18:50)
[2020-04-28] MEDS: SODIUM CHLORIDE 0.9% INJ 10 ML SYR IV SCH ×2 (06:13→18:49)
[2020-04-28] MEDS: HumaLOG INSULIN (NovoLOG) PER UNIT SC SCH ×4 (06:22→18:49)
[2020-04-28] MEDS: IPRATROPIUM 0.5MG/ALBUTEROL 2.5MG INH SOL UD 3ML (DUONEB) NEB SCH ×2 (08:00→20:00)
[2020-04-28] MEDS: LACTOBACILLUS ACIDOPHILUS CAP (BACID) PO SCH ×2 (08:00→18:49)
[2020-04-28] MEDS: CREON-12 CAPSULE PO SCH ×3 (08:00→18:49)
[2020-04-28] MEDS: TIOTROPIUM INHALER/CAPSULE (SPIRIVA) INH SCH (08:00)
[2020-04-28] MEDS: CARVedilol 3.125 MG TAB PO SCH ×2 (09:00→20:36)
[2020-04-28] MEDS: CHLORHEXIDINE GLUCONATE 0.12 % 15ML UDC (PERIDEX ORAL RINSE) SSP SCH ×3 (09:00→20:36)
[2020-04-28] MEDS: CLOPIDOGREL 75 MG TAB PO SCH (10:09)
[2020-04-28] MEDS: ursodioL 300 MG CAP PO SCH ×2 (10:09→20:36)
[2020-04-28] MEDS: PANTOPRAZOLE 40MG VIAL (C9113 PER 1) IV SCH (10:09)
[2020-04-28] MEDS: AMIODARONE 200 MG TAB (PACERONE) PO SCH ×2 (10:10→20:36)
[2020-04-28] MEDS: APIXABAN 5 MG TAB (ELIQUIS) PO SCH ×2 (10:10→20:35)
[2020-04-28] MEDS: FLUoxetine 20 MG CAP PO SCH (10:10)
[2020-04-28] MEDS: ACETAMINOPHEN 500 MG TAB PO PRN ×2 (10:10→20:35)
[2020-04-28] MEDS: FUROSEMIDE 40 MG TAB PO SCH (10:10)
[2020-04-28] MEDS: ENTRESTO 24-26MG TABLET (SACUBITRIL/VALSARTAN) PO SCH ×2 (10:11→20:35)
[2020-04-28] MEDS: RAMELTEON 8 MG TAB (ROZEREM) PO SCH (20:35)
[2020-04-28 20:36] VITALS: BP 115/77
[2020-04-28] MEDS: IPRATROPIUM 0.5MG/ALBUTEROL 2.5MG INH SOL UD 3ML (DUONEB) NEB PRN (20:40)
[2020-04-29] VITALS (108 sets, daily range): BP systolic 83–153; BP diastolic 50–81
[2020-04-29] MEDS: HumaLOG INSULIN (NovoLOG) PER UNIT SC SCH ×4 (00:33→18:54)
[2020-04-29] MEDS: MORPHINE 2 MG/ML 1ML VIAL (J2270) IV PRN ×2 (01:59→10:52)
[2020-04-29] MEDS: SODIUM CHLORIDE 0.9% INJ 10 ML SYR IV PRN ×2 (01:59→10:52)
[2020-04-29] MEDS: SODIUM CHLORIDE 0.9% INJ 10 ML SYR IV SCH ×2 (05:50→09:01)
[2020-04-29] MEDS: IPRATROPIUM 0.5MG/ALBUTEROL 2.5MG INH SOL UD 3ML (DUONEB) NEB SCH ×2 (07:45→19:37)
[2020-04-29] MEDS: TIOTROPIUM INHALER/CAPSULE (SPIRIVA) INH SCH (08:00)
[2020-04-29] MEDS: LACTOBACILLUS ACIDOPHILUS CAP (BACID) PO SCH ×2 (08:58→18:31)
[2020-04-29] MEDS: FLUoxetine 20 MG CAP PO SCH (08:58)
[2020-04-29] MEDS: ursodioL 300 MG CAP PO SCH ×2 (08:58→19:49)
[2020-04-29] MEDS: CHLORHEXIDINE GLUCONATE 0.12 % 15ML UDC (PERIDEX ORAL RINSE) SSP SCH (08:58)
[2020-04-29] MEDS: FUROSEMIDE 40 MG TAB PO SCH (08:59)
[2020-04-29] MEDS: AMIODARONE 200 MG TAB (PACERONE) PO SCH ×2 (08:59→19:49)
[2020-04-29] MEDS: ENTRESTO 24-26MG TABLET (SACUBITRIL/VALSARTAN) PO SCH (08:59)
[2020-04-29] MEDS: CREON-12 CAPSULE PO SCH ×3 (08:59→18:00)
[2020-04-29] MEDS: CLOPIDOGREL 75 MG TAB PO SCH (08:59)
[2020-04-29] MEDS: PANTOPRAZOLE 40MG VIAL (C9113 PER 1) IV SCH (08:59)
[2020-04-29] MEDS: APIXABAN 5 MG TAB (ELIQUIS) PO SCH (08:59)
[2020-04-29] MEDS: CARVedilol 3.125 MG TAB PO SCH (09:00)
[2020-04-29] MEDS ORDERED: IPRATROPIUM 0.5MG/ALBUTEROL 2.5MG INH SOL UD 3ML (DUONEB) NEB ONE (12:00)
[2020-04-29] MEDS ORDERED: FUROSEMIDE 40MG/4ML VIAL (J1940) IV ONE (12:00)
--- NOTE | 2020-04-29 12:17 | REPVR ---
PROCEDURE INFORMATION: Exam: XR Chest, 1 View Exam date and time: 04/29/2020 12:07 PM Age: 49 years old Clinical indication: Tachypnea TECHNIQUE: Imaging protocol: XR of the chest Views: 1 view. COMPARISON: CR PORTABLE CHEST X-RAY 04/12/2020 4:19 PM FINDINGS: Tubes, catheters and devices: AICD. Left upper extremity PICC line tip projects over the lower SVC. Lungs: Diffuse reticular pulmonary opacities and patchy consolidation, similar to prior exam. Although, there is slightly improved aeration of the right lung base. Pleural space: Small left pleural effusion. Heart/Mediastinum: Mediastinal surgical clips. Stable prominence of the cardiac silhouette. Bones/joints: Degenerative change of the spine. IMPRESSION: Bilateral pneumonia and small left pleural effusion. Electronically signed by: Suzan Medeiros On 04/29/2020 12:16:52 PM
--- NOTE | 2020-04-29 12:21 | IPNPDOC ---
Text Note Date of Service The patient was seen on 04/29/20. NOTE S Patient seen and examined this afternoon. Patient was answering questions appropriately this morning however he was short of breath and only able to speak 2-3 words at a time. He was in moderate respiratory distress and occasionally using accessory muscles for breathing. Nurse tells me that over time she has seen him exhibit this behavior on and off on previous occasions. O Patient was sitting upright in bed and answering questions appropriately. Lungs showed crackles bilaterally. Occasionally I saw him use accessory muscles. He was on 2 L nasal cannula and saturating 93%. General: NAD, critically ill appearing, cachectic HEENT: PERRLA NECK: supple Cardiovascular: RRR S1 and S2 are normal, no murmur Gastrointestinal: Abdomen is soft, non distended, non tender, BS present. peg tube in place, no guarding noted. EXTREMITIES: trace pedal edema ASP NET C DEVELOPER: No focal neurological deficit. Vital Signs Date Time Temp Pulse Resp B/P (MAP) Pulse Ox O2 Delivery O2 Flow Rate FiO2 04/29/20 11:21 4.0 04/29/20 10:52 22 Nasal Cannula 04/29/20 09:33 2.0 04/29/20 06:00 97.7 60 16 113/77 (89) 93 Nasal Cannula 2.0 04/29/20 02:09 60 18 93 Nasal Cannula 2.0 04/29/20 01:59 60 19 93 Nasal Cannula 2.0 04/28/20 20:36 65 115/77 04/28/20 20:30 2.0 04/28/20 19:54 63 19 94 Nasal Cannula 2.0 04/28/20 18:50 19 Intake & Output 04/29/20 06:00 Intake Total 620 ml Output Total 500 ml Balance 120 ml Laboratory Tests 04/28/20 16:33: Bedside Glucose (Misc Panel) 145H 04/29/20 00:10: Bedside Glucose (Misc Panel) 171H 04/29/20 05:42: Bedside Glucose (Misc Panel) 86 04/29/20 12:10: Bedside Glucose (Misc Panel) 145H Current Medications Medications (Trade) Dose Ordered Sig/Harish Route PRN Reason Start Time Stop Time Status Last Admin Dose Admin Acetaminophen (Tylenol Tab) 1,000 mg TID PRN PO mild pain 03/25/20 01:45 04/28/20 20:35 1,000 MG Albuterol/ Ipratropium (Duoneb (Ipr 0.5mg/Alb 2.5mg)) 3 ml Q2HP PRN NEB SOB/WHEEZING 04/12/20 12:00 04/28/20 20:40 3 ML Amiodarone HCl (Pacerone, Cordarone) 200 mg BID PO 03/25/20 09:00 04/29/20 08:59 200 MG Apixaban (Eliquis) 5 mg BID PO 04/01/20 21:00 04/29/20 08:59 5 MG Carvedilol (COReg) 3.125 mg BID PO 03/25/20 09:00 04/28/20 20:36 3.125 MG Chlorhexidine Gluconate (Peridex Oral Rinse) 15 ml TID SSP 04/04/20 16:00 04/29/20 08:58 15 ML Clopidogrel Bisulfate (PLAVix) 75 mg DAILY PO 04/01/20 17:30 04/29/20 08:59 75 MG Fluoxetine HCl (PROzac) 40 mg DAILY PO 03/25/20 09:00 04/29/20 08:58 40 MG Furosemide (Lasix) 40 mg DAILY PO 04/19/20 09:00 04/29/20 08:59 40 MG Heparin Sodium (Heparin (Flush)) 200 units ASDIRECTED PRN IV SEE LABEL COMMENTS 04/10/20 18:45 04/29/20 10:52 200 UNITS Insulin Human Lispro (HumaLOG INSULIN) SEE PROTOCOL TABLE Q6H SC 04/22/20 18:00 04/29/20 00:33 4 UNITS Lactobacillus Acidophilus (Bacid) 1 ea BIDWM PO 04/01/20 18:00 04/29/20 08:58 1 EA Morphine Sulfate (Morphine Sulfate Inj) 1 mg Q6H PRN IV SEVERE PAIN (PS 8-10) 03/31/20 16:15 04/29/20 10:52 1 MG Pancrelipase (Creon-12) 1 ea WM PO 04/03/20 08:00 04/29/20 08:59 1 EA Pantoprazole Sodium (Protonix) 40 mg Q24H IV 03/26/20 09:00 04/29/20 08:59 40 MG Ramelteon (Rozerem) 8 mg QHS PO 04/19/20 21:00 04/28/20 20:35 8 MG Sacubitril/ Valsartan (Entresto 24-26 Mg) 1 tab BID PO 04/19/20 21:00 04/29/20 08:59 1 TAB Sodium Chloride (Saline Lock Flush) 10 ml ASDIRECTED PRN IV SEE LABEL COMMENTS 04/10/20 18:45 04/29/20 10:52 10 ML Tiotropium Lawrence (Spiriva Handihaler) 1 inhalation DAILY@0800 INH 03/25/20 08:00 04/29/20 08:00 1 INHALATION Trimethobenzamide HCl (Tigan) 300 mg Q6HP PRN PO NAUSEA OR VOMITING 03/29/20 15:00 04/27/20 17:37 300 MG Ursodiol (Actigall) 300 mg BID PO 03/25/20 09:00 04/29/20 08:58 300 MG A/P 49 y/o M PMH of a history of pancreatitis c/b necrotic pseudocyst s/p drainage, as well as a history of a splenic abscess s/p drainage and abx, admitted for abdominal pain and found to have a persistent splenic collection, as well as suspicion for PNA and systolic CHF exacerbation with course c/b hypoxemic respiratory failure, anorexia with inability to tolerate much PO or tube feeds, recently started on TPN c/b worsening hypoxemia and worsening bibasilar opacities and worsening leukocytosis that has improved after stopping TPN, diuresis and addition of Vancomycin. # Tachypnea: Stat; ABG, BNP, CBC, BMP, CXR, Duoneb, 1x IV lasix 40, Pulm consult - discussed case with Dr Bradford. Vitals reviewed, found to be hypothermic. Has a Hx of PE/DVT and is on eliquis 5 BID. CXR shows pulmonary congestion likely 2/2 CHF -Chest x-ray most consistent with CHF. Will need better diuresis. We'll switch his daily Lasix to 40 PO BID. Monitor I/Os # Hypothermia: bear adener check labs. # Acute on chronic systolic CHF exacerbation. - guarded use of dieuretic due to worsening renal failure. Nephrology signed off. Extra diurese PRN - Switch Lasix to 40 BID daily # CVD: Hx of cardiomyopathy, CABG, s/p AICD and biventricular PM- follows with Dr. Giordano # History of chronic pancreatitis: Chart mention of autoimmune pancreatitis. lipase, CMP improved. Abdominal pain improving; however, still requiring some morphine PRN. Poor intake, now changed to low fat diet with pancreatic enzymes with meals.Ensure #Persistent splenic abscess: encapsulated. Monitor OP over time. - History of perisplenic/splenic abscess 02/2020, underwent IR drain in [facility] on 02/23, with history of Enterobacter species, and placed on Cipro and Flagyl for weeks. Currently afebrile, WBC wnl. Prior hospitalists before me spoke with Dr. Palmer (ID) at [facility], and we do have the same record that the splenic collection was 7 cm largest diameter, and then 4 cm post IR drain there, and noted that on recent US it is 6.5cm, slightly larger. Agreed to have another IR drain previously; however, 04/01/20 refused drainage due to it being high risk with them needing to pass needle through pleural space. Per Dr. Kent (radiologist), this would put him at increased risk for empyema, pneumothorax. -consulted Dr. Hector -Completed course of antibiotic therapy # Failure to thrive 2/2 to several acute on chronic issues, multiple recent hospitalizations. On tube feeds. Decline this hospital stay. Family met with palliative care. Poor oral intake, nausea likely 2/2 to acute infection/illness above. Residuals high , stopped tube feedings. Discussed with surgery and suggested IR to do G to J tube conversion on 04/08/20. IR consulted. Not eating from his diet well but will c/w low fat diet, pancreatic enzymes with meals. Encouraging fluids Q2 hrs. Zofran ATC. Palliative care brought up with patient due to health decline, multiple hospitalizations and chronic pain. # MARTY vs worsening CKD. Nephro consulted # Deconditioning: PT/OT # Insomnia hold Rozerem QHS # Hx of CVA. C/w plavix, not on statin. # Hx of PE/DVT, DVT px. Eliquis 5 BID # DVT prophylaxis: eliquis A Juliannaf Hospitalist VS,Fishbone, I+O VS, Fishbone, I+O Vital Signs Date Time Temp Pulse Resp B/P (MAP) Pulse Ox O2 Delivery O2 Flow Rate FiO2 04/29/20 10:52 22 Nasal Cannula 04/29/20 09:33 2.0 9/23/20 06:00 97.7 60 113/77 (73) 90 I&O- Last 24 Hours up to 6 AM 04/29/20 05:59 Intake Total 570 ml Output Total 600 ml Balance -30 ml FRANCOIS JACOB MD Apr 29, 2020 12:08
[2020-04-29 13:27] LABS: ABG BASE EXCESS -2.2 (-2.0-2.0); ABG HCO3 23.1 MEQ/L (22.0-26.0); ABG O2 SATURATION 89.2 % (95.0-99.0); ABG PARTIAL PRESSURE CO2 41.5 mmHg (35.0-45.0); ABG PARTIAL PRESSURE O2 60.4 mmHg (75.0-100.0); ABG STANDARD HCO3 22.5 MEQ/L (22.0-26.0); ABG TOTAL CO2 24.4 MEQ/L (22.0-29.0); ABG pH (ARTERIAL) 7.363 UNITS (7.350-7.450)
[2020-04-29] MEDS ORDERED: NOREPINEPHRINE 4 MG/4 ML AMP As Ordered ONE (13:50)
[2020-04-29 13:54] LABS: HEMATOCRIT 38.1 % (42.0-52.0); HEMOGLOBIN 11.5 g/dl (13.5-17.5); MEAN CORPUSCULAR HEMOGLOBIN 28.2 pg (27.0-33.0); MEAN CORPUSCULAR HGB CONC 30.2 g/dl (32.0-36.5); MEAN CORPUSCULAR VOLUME 93.4 fl (80.0-96.0); PLATELET COUNT, AUTOMATED 203 10^3/uL (150-450); RED BLOOD COUNT 4.08 10^6/uL (4.30-6.10); WHITE BLOOD COUNT 9.4 10^3/uL (4.0-10.0)
[2020-04-29 14:21] LABS: APPEARANCE, URINE TURBID (CLEAR); BACTERIA, URINE AUTO 3+ (NEGATIVE); BILIRUBIN, URINE AUTO NEGATIVE (NEGATIVE); BLOOD, URINE BLOOD 3+ (NEGATIVE); COLOR, URINE YELLOW (YELLOW); GLUCOSE, URINE (UA) AUTO NEGATIVE (NEGATIVE); KETONE, URINE AUTO NEGATIVE (NEGATIVE); LEUKOCYTE ESTERASE, URINE AUTO 2+ (NEGATIVE); MUCUS, URINE LARGE (NEGATIVE); NITRITE, URINE AUTO NEGATIVE (NEGATIVE); PROTEIN, URINE AUTO 3+ mg/dL (NEGATIVE); RBC, URINE AUTO 97 /HPF (0-3); SPECIFIC GRAVITY URINE AUTO 1.012 (1.002-1.035); SQUAMOUS EPITHELIAL CELL UR AU 0 /HPF (0-6); UROBILINOGEN, URINE AUTO 0.2 mg/dL (0.0-2.0); WBC, URINE AUTO TNTC /HPF (0-3)
[2020-04-29] MEDS ORDERED: NOREPINEPHRINE BITARTRATE 8 MG in D5W 492 ML IV SCH (14:30)
[2020-04-29 14:46] LABS: BLOOD UREA NITROGEN 76 MG/DL (7-18); CALCIUM LEVEL 8.7 MG/DL (8.5-10.1); CARBON DIOXIDE LEVEL 26 MEQ/L (21-32); CHLORIDE LEVEL 105 MEQ/L (98-107); CREATININE FOR GFR 2.57 MG/DL (0.70-1.30); GLOMERULAR FILTRATION RATE 28.2 (>56); GLUCOSE, FASTING 155 MG/DL (70-100); NT-PRO BNP 31445 PG/ML (<125); POTASSIUM SERUM 6.4 MEQ/L (3.5-5.1); SODIUM LEVEL 135 MEQ/L (136-145); TROPONIN I < 0.02 NG/ML (< 0.10)
[2020-04-29] MEDS ORDERED: CALCIUM GLUCONATE 1,000 MG in D5W MINI-BAG PLUS 100 ML IV ONE (15:00)
[2020-04-29] MEDS ORDERED: DEXTROSE 50% 50 ML SYRINGE IV STA (15:14)
[2020-04-29] MEDS ORDERED: ETOMIDATE INJ 20MG/10ML VIAL IV ONE (15:15)
[2020-04-29] MEDS ORDERED: HumuLIN R (REGULAR) INSULIN (NovoLIN R) **100U/ML** PER UNIT SC ONE (15:15)
[2020-04-29] MEDS ORDERED: MEROPENEM INJ 500 MG in IV 1 EA IV SCH (15:15)
[2020-04-29] MEDS ORDERED: MIDAZOLAM INJ 2MG/2ML VIAL (J2250 PER 1MG) IV STA (15:15)
--- NOTE | 2020-04-29 15:15 | REPVR ---
PROCEDURE INFORMATION: Exam: XR Chest, 1 View Exam date and time: 04/29/2020 3:04 PM Age: 49 years old Clinical indication: Other vascular access device placement or adjustment; Central line, non-tunnelled; Additional info: Central line insertion TECHNIQUE: Imaging protocol: XR of the chest Views: 1 view. COMPARISON: CR Chest, 1 view 04/29/2020 11:59 AM FINDINGS: Tubes, catheters and devices: AICD. Left upper extremity PICC line tip projects over the SVC. Left internal jugular catheter tip projects over the SVC. Lungs: Diffuse reticular pulmonary opacities, slightly improved. Patchy consolidation in the lung bases, slightly improved. Pleural space: Small left pleural effusion. Heart/Mediastinum: Stable prominence of the cardiac silhouette. Mediastinal surgical clips. Bones/joints: Unremarkable. IMPRESSION: 1. Left internal jugular catheter appears appropriately positioned. 2. Slight interval improvement in pulmonary consolidation. 3. Small left pleural effusion. Electronically signed by: Suzan Medeiros On 04/29/2020 15:15:36 PM
[2020-04-29] MEDS ORDERED: VANCOMYCIN INTERMITTENT/PULSE DOSING BY CLINICAL PHARMACIST PER DOSING PROTOCOL XX SCH (15:45)
[2020-04-29] MEDS ORDERED: VANCOMYCIN HCL 1,000 MG, VIAL MATE ADAPTER 1 EACH in D5W 250 ML IV ONE ×2 (16:00→17:00)
[2020-04-29] MEDS ORDERED: PROPOFOL 1,000 MG/100 ML VIAL As Ordered ONE (16:08)
[2020-04-29] MEDS ORDERED: fentaNYL 100 MCG/2 ML INJECTION (J3010) IV PRN (16:15)
[2020-04-29] MEDS: propofoL 1,000 MG in IV 1 EA IV SCH (16:30)
[2020-04-29] MEDS: MEROPENEM INJ 1 GM in IV 1 EA IV SCH (16:30)
--- NOTE | 2020-04-29 16:36 | REPVR ---
PROCEDURE INFORMATION: Exam: XR Chest, 1 View Exam date and time: 04/29/2020 4:27 PM Age: 49 years old Clinical indication: Device placement; Ett placement (vent status); Additional info: Intubation TECHNIQUE: Imaging protocol: XR of the chest Views: 1 view. COMPARISON: CR PORTABLE CHEST X-RAY 04/29/2020 3:00 PM FINDINGS: Tubes, catheters and devices: AICD. Endotracheal tube terminates 3.8 cm above the nishnat. Left internal jugular catheter tip projects over the SVC. Left upper extremity PICC line tip projects over the SVC. Lungs: Diffuse reticular pulmonary opacities. Mild consolidation in the lung bases. Pleural space: Small left pleural effusion. Heart/Mediastinum: Mediastinal surgical clips. Stable prominence of the cardiac silhouette. Bones/joints: Unremarkable. IMPRESSION: 1. Endotracheal tube appears appropriately positioned. 2. Remaining findings are essentially unchanged. Electronically signed by: Suzan Medeiros On 04/29/2020 16:36:06 PM
[2020-04-29] MEDS ORDERED: SILVER NITRATE APPLICATOR TOP ONE (17:15)
[2020-04-29 17:54] LABS: INR 2.76; PROTHROMBIN TIME 29.8 SECONDS (12.5-14.3)
[2020-04-29 17:55] LABS: PARTIAL THROMBOPLASTIN TIME 59.4 SECONDS (24.2-38.5)
[2020-04-29] MEDS: CHLORHEXIDINE GLUCONATE 0.12 % 15ML UDC (PERIDEX ORAL RINSE) MT SCH (19:49)
[2020-04-29] MEDS ORDERED: DESMOPRESSIN ACETATE 20 MCG in NS 50 ML IV ONE (21:00)
[2020-04-29 21:06] LABS: CALCIUM LEVEL 8.3 MG/DL (8.5-10.1); CREATININE FOR GFR 2.61 MG/DL (0.70-1.30); GLOMERULAR FILTRATION RATE 27.7 (>56); POTASSIUM SERUM 5.8 MEQ/L (3.5-5.1)
[2020-04-29] MEDS ORDERED: FUROSEMIDE 100MG/10ML VIAL (J1940) IV ONE (21:15)
[2020-04-29] MEDS ORDERED: SOD POLYSTYRENE SULFONATE SUSP 15 GM/60 ML UD PO ONE (23:45)
[2020-04-30] VITALS (76 sets, daily range): BP systolic 74–106; BP diastolic 43–61; O2SAT 94
[2020-04-30] MEDS: propofoL 1,000 MG in IV 1 EA IV SCH ×3 (01:30→16:12)
[2020-04-30] MEDS: NOREPINEPHRINE BITARTRATE 8 MG in D5W 492 ML IV SCH ×2 (02:00→10:52)
[2020-04-30] MEDS: MEROPENEM INJ 1 GM in IV 1 EA IV SCH ×2 (03:46→16:32)
[2020-04-30 04:36] LABS: HEMATOCRIT 31.3 % (42.0-52.0); HEMOGLOBIN 9.7 g/dl (13.5-17.5); MEAN CORPUSCULAR HEMOGLOBIN 28.6 pg (27.0-33.0); MEAN CORPUSCULAR VOLUME 92.3 fl (80.0-96.0); PLATELET COUNT, AUTOMATED 214 10^3/uL (150-450); RED BLOOD COUNT 3.39 10^6/uL (4.30-6.10); WHITE BLOOD COUNT 9.7 10^3/uL (4.0-10.0)
[2020-04-30 04:51] LABS: PARTIAL THROMBOPLASTIN TIME 57.7 SECONDS (24.2-38.5)
[2020-04-30 04:54] LABS: INR 2.41; PROTHROMBIN TIME 26.8 SECONDS (12.5-14.3)
[2020-04-30 05:03] LABS: ALBUMIN 1.3 GM/DL (3.2-5.2); BILIRUBIN,TOTAL 0.5 MG/DL (0.2-1.0); CALCIUM LEVEL 8.5 MG/DL (8.5-10.1); CREATININE FOR GFR 2.55 MG/DL (0.70-1.30); GLOMERULAR FILTRATION RATE 28.5 (>56); POTASSIUM SERUM 5.6 MEQ/L (3.5-5.1); TOTAL PROTEIN 5.8 GM/DL (6.4-8.2)
[2020-04-30] MEDS: HumaLOG INSULIN (NovoLOG) PER UNIT SC SCH ×6 (05:16→23:59)
[2020-04-30] MEDS: SODIUM CHLORIDE 0.9% INJ 10 ML SYR IV SCH ×2 (05:23→17:54)
[2020-04-30 05:59] LABS: ABG BASE EXCESS -0.1 (-2.0-2.0); ABG HCO3 23.2 MEQ/L (22.0-26.0); ABG O2 SATURATION 95.1 % (95.0-99.0); ABG PARTIAL PRESSURE CO2 33.1 mmHg (35.0-45.0); ABG STANDARD HCO3 24.4 MEQ/L (22.0-26.0); ABG TOTAL CO2 24.2 MEQ/L (22.0-29.0); ABG pH (ARTERIAL) 7.464 UNITS (7.350-7.450)
[2020-04-30] MEDS ORDERED: VANCOMYCIN HCL 1,000 MG, VIAL MATE ADAPTER 1 EACH in D5W 250 ML IV ONE (06:00)
[2020-04-30] MEDS: IPRATROPIUM 0.5MG/ALBUTEROL 2.5MG INH SOL UD 3ML (DUONEB) NEB SCH ×2 (07:54→19:31)
[2020-04-30] MEDS: TIOTROPIUM INHALER/CAPSULE (SPIRIVA) INH SCH (07:54)
[2020-04-30] MEDS ORDERED: SOD POLYSTYRENE SULFONATE SUSP 15 GM/60 ML UD PO ONE (08:00)
--- NOTE | 2020-04-30 08:15 | REP ---
PORTABLE CHEST: SINGLE AP VIEW WITH PATIENT SEMI-UPRIGHT Maci in reporting results from hospital computer system malfunction from malware/ ransomware. COMPARISON: 03/18/2020. FINDINGS: The bilateral pleural effusions on the comparison study have improved. There is bilateral interstitial coarsening within indistinctness of the interstitial markings, worsened from the prior study compatible with worsening interstitial infiltrates. Cardiac size is enlarged, unchanged. There is a triple lead biventricular pacemaker, unchanged. IMPRESSION: Worsening interstitial infiltrates. Improved bilateral pleural effusions. MTDD
[2020-04-30] MEDS: AMIODARONE 200 MG TAB (PACERONE) PO SCH (09:00)
[2020-04-30] MEDS: LACTOBACILLUS ACIDOPHILUS CAP (BACID) PO SCH ×2 (09:32→17:46)
[2020-04-30] MEDS: ursodioL 300 MG CAP PO SCH ×2 (09:33→20:25)
[2020-04-30] MEDS: CREON-12 CAPSULE PO SCH ×3 (09:33→18:03)
[2020-04-30] MEDS: CHLORHEXIDINE GLUCONATE 0.12 % 15ML UDC (PERIDEX ORAL RINSE) MT SCH ×2 (09:33→20:25)
[2020-04-30] MEDS: CLOPIDOGREL 75 MG TAB PO SCH (09:33)
[2020-04-30] MEDS: PANTOPRAZOLE 40MG VIAL (C9113 PER 1) IV SCH (09:33)
[2020-04-30] MEDS ORDERED: LIDOCAINE 1% MDV 20ML VIAL As Ordered ONE (09:53)
--- NOTE | 2020-04-30 11:58 | IPNPDOC ---
Date Seen The patient was seen on 04/30/20. Progress Note SUBJECTIVE: Patient was seen and examined this morning during bedside rounds. Patient was started on tube feeds over night, however had high residuals and so they were placed on hold. He has continued to require levophed for blood pressure support. He is also hypothermic still requiring orion hugger. Patient is sedated on propofol but does move extremities spontaneously although appears weaker on right arm compared to left. Patient's pupil OBJECTIVE PHYSICAL EXAMINATION: VITAL SIGNS: Please see below. GENERAL: Pt is sedated and on ventilator. Appears cachectic. He occasionally spontaneously lifts his left arm, but is not verbally responsive. He grimaces when in pain. HEENT: left pupil is slightly smaller than the right pupil, pupils reactive to light, temporal wasting. CARDIOVASCULAR: RRR, no murmurs, rubs, gallops. Central venous catheter insertion site is oozing and erythematous. RESPIRATORY: bibasilar crackles with coarse bronchophony. Pt is ventilated on mode: PRVC FiO2: 21%. Tidal volume: 440mL, RR: 16, PEEP: 5 ABDOMINAL: Colostomy bag, PEG tube has black staining of the inner lining. EXTREMITIES: spontaneous movement of left arm, movement of right arm noted only as response to pain, nursing staff denies seeing spontaneous right arm. Radial and Pedal pulses +3/4, normal. +2 sacral pitting edema. NEUROLOGICAL: pt is ventilated with new-onset, absence of movement of right- sided extremity. LABORATORY DATA, IMAGING STUDIES, MICROBIOLOGY: Please see below. Echocardiogram: pending. Chest X-ray: 04/30/20- ETT in good position. Right sided AICD. LIJ triple lumen in place with tip in SVC. Left sided PICC line in place. Improved bilateral patchy opacities compared to yesterday CXR, still PVC and small bilateral effusions and atelectasis/consolidation in left base/retrocardiac. DVT prophylaxis ordered: on Eliquis. ASSESSMENT AND PLAN: This is a 49-year-old Male with an extensive cardiac and gastroenterologic history presents to the ICU for management of shock. This is hospital day 36 and ICU day 1. Patient was admitted to the hospital due to abdominal pain and splenic abscess. The splenic abscess was drained on 02/23, a repeat drain from the abscess was not done, reconsideration by Dr. Kent on 04/01/2020 due to increased risk of pneumothorax and empyema. Pt is being evaluated and managed in the ICU due to shock of unknown etiology (possibly cardiogenic or septic). PROBLEMS: 1. Neurology: Prior history of CVA. Patient is ventilated currently and on sedation with propofol. Will titrate for Braun of 2-3. Fentanyl and Versed are to be administered PRN. Pt has a prior history of stroke. Movement of his right arm is only in response to pain and is limited. Left arm has spontaneous movements. The pupils are uneven. Follow up on head CT to rule out embolic CVA due to vegetations seen on echocardiogram (note pending, however verbal commu nication by copier repair technician elicited this information). 2. Cardiology: History of coronary artery disease, ischemic cardiomyopathy, history of cardiac arrest. Patient is in shock, requiring vasopressors, possibly sepsis or cardiogenic. Echocardiography was done yesterday 04/29/2020, verbal communication elicited information of 5% ejection fraction and vegetations of the cardiac valves. Discontinued Entresto and beta blockers due to shock and cardiovascular heart failure. Continue levophed for vasopressor and will add low dose dobutamine for ionotropic support. Will check central venous saturation g iven concern of cardiogenic shock. Patient with decompensated heart failure, CVP and BNP elevated. Will start lasix 60mg IV BID. Continue Plavix. Decreased Eliquis dose to 2.5 mg twice a day renally adjusted. 3. Pulmonology: Hypoxemic respiratory failure from pulmonary edema, possible aspiration pneumonia. Patient required intubation and mechanical ventilation. On PRVC with settings are tidal volume 440, respiratory rate 16, FiO2 21, PEEP 5. Continue daily ABG, chest x-ray, elevate head of the bed, chlorhexidine mouthwash. Schedule trial of weaning off ventilator tomorrow but may be difficult due to history of decreasing cardiac function, would likely require extubation to NIPPV. 4. ID: Patient's Mcpherson catheter had purulent discharge, urinalysis was positive, urine culture is pending. Blood cultures have been ordered. Continue vancomycin and meropenem, consider possible endocarditis. 5.Renal: History of CKD, history of MARTY. Patient is hyperkalemic. Was given insulin/D50 yesterday and calcium. Will give Lasix and monitor hyperkalemia. cont monitoring I/O via mcpherson. 6. GI: Hx of IgG4 disease causing autoimmune pancreatitis, history of splenic abscess, continue antibiotics. Continue tube feeds while following residuals, try trickle tube feeds. If tube feeds stops working consult surgery to replace PEG tube. 7. Hematology: Patient is on anticoagulation. Continue Eliquis with renally adjusted dosing of 2.5 mg BID. Continue Plavix. Left central venous catheter insertion site elicited bleeding controlled with pressure. U-stitches x [address] Austin, first, then Dr. Barba. Insertion site is no longer bleeding. Hemoglobin has understandably dropped. Continue to monitor Hgb. Type and screen order has been placed. Transfuse if hemoglobin is less than 7. DISPOSITION: Full Code Status. VS, I&O, 24H, Fishbone Vital Signs/I&O Vital Signs Date Time Temp Pulse Resp B/P (MAP) Pulse Ox O2 Delivery O2 Flow Rate FiO2 04/30/20 10:52 96.6 60 16 101/55 99 Ventilator 21 04/29/20 15:10 4.0 I&O- Last 24 Hours up to 6 AM 04/30/20 05:59 Intake Total 1448.4 ml Output Total 1950 ml Balance -501.6 ml Laboratory Data 24H LABS Laboratory Tests 2 04/29/20 12:10: Bedside Glucose (Misc Panel) 145H 04/29/20 13:15: Blood Gas Bicarbonate Standard 22.5, Arterial Blood pH 7.363, Arterial Blood Partial Pressure CO2 41.5, Arterial Blood Partial Pressure O2 60.4L, Arterial Blood Total CO2 24.4, Arterial Blood HCO3 23.1, Arterial Blood Base Excess - 2.2L, Arterial Blood Oxygen Saturation 89.2L 04/29/20 13:37: Nucleated Red Blood Cells % (auto) 0.0, Anion Gap 4L, Glomerular Filtration Rate 28.2L, Calcium Level 8.7, Troponin I < 0.02, RV-[id number] Natriuretic Peptide 3 1445H 04/29/20 13:56: Urine Color YELLOW, Urine Appearance TURBIDH, Urine pH 6.0, Urine Specific Flasher 1.012, Urine Protein 3+H, Urine Glucose (Auto)(UA) NEGATIVE, Urine Ketones (Auto) NEGATIVE, Urine Blood 3+H, Urine Nitrite NEGATIVE, Urine Bilirubin NEGATIVE, Urine Urobilinogen 0.2, Urine Leukocyte Esterase (Auto) 2+H, Urine WBC (Auto) TNTCH, Urine RBC (Auto) 97H, Urine Hyaline Casts (Auto) 0, Urine Bacteria (Auto) 3+H, Urine Squamous Epithelial Cells 0, Urine Mucus (Auto) LARGE, Urine Sperm (Auto) 04/29/20 16:35: Bedside Glucose (Misc Panel) 147H 04/29/20 17:19: Prothrombin Time 29.8H, Prothromb Time International Ratio 2.76, Activated Partial Thromboplast Time 59.4H, Lactic Acid Level 1.3 04/29/20 18:50: Bedside Glucose (Misc Panel) 211H 04/29/20 20:30: Anion Gap 5L, Glomerular Filtration Rate 27.7L, Calcium Level 8.3L 04/30/20 04:15: Nucleated Red Blood Cells % (auto) 0.0, Prothrombin Time 26.8H, Prothromb Time International Ratio 2.41, Activated Partial Thromboplast Time 57.7H, Anion Gap 6L, Glomerular Filtration Rate 28.5L, Calcium Level 8.5, Total Bilirubin 0.5, Aspartate Amino Transf (AST/SGOT) 24, Alanine Aminotransferase (ALT/SGPT) 10L, Alkaline Phosphatase 181H, Total Protein 5.8L, Albumin 1.3L, Albumin/Globulin Ratio 0.3, Random Vancomycin Level 18.0 04/30/20 05:44: Blood Gas Bicarbonate Standard 24.4, Arterial Blood pH 7.464H, Arterial Blood Partial Pressure CO2 33.1L, Arterial Blood Partial Pressure O2 78.0, Arterial Blood Total CO2 24.2, Arterial Blood HCO3 23.2, Arterial Blood Base Excess -0.1, Arterial Blood Oxygen Saturation 95.1 CBC/BMP Laboratory Tests 04/29/20 13:37 04/29/20 20:30 04/30/20 04:15 Microbiology Microbiology 04/29/20 Blood Culture, Received Pending 04/29/20 Urine Culture - Final, Resulted GME ATTESTATION My faculty preceptor for this patient encounter was physically present during the encounter and was fully available. All aspects of the patient interview, examination, medical decision making process, and medical care plan development were reviewed and approved by the faculty preceptor. The faculty preceptor is aware and concurs with the plan as stated in the body of this note and will attest to such by his/her cosignature. ATTENDING NOTE Total critical care time spent not including procedure approx 50 mins I, Dinora Barba, have conducted an independent history of the patient and agree with the plan as detailed above by the resident and discussed durning rounds. Mason Abdalla DO Apr 30, 2020 11:58 DINORA BARBA MD Apr 30, 2020 13:16
--- NOTE | 2020-04-30 12:35 | REPVR ---
PROCEDURE INFORMATION: Exam: CT Head Without Contrast Exam date and time: 04/30/2020 12:15 PM Age: 49 years old Clinical indication: Altered mental status/memory loss; Confusion or disorientation; Additional info: AMS TECHNIQUE: Imaging protocol: Computed tomography of the head without contrast. Radiation optimization: All CT scans at this facility use at least one of these dose optimization techniques: automated exposure control; mA and/or kV adjustment per patient size (includes targeted exams where dose is matched to clinical indication); or iterative reconstruction. COMPARISON: CT Head without contrast 05/09/2019 8:30 PM FINDINGS: Brain: There is no acute intracranial hemorrhage or mass effect. Mild diffuse volume loss is within the range of normal for patient age. There are small vessel ischemic changes within the periventricular and subcortical white matter, but the normal plascencia/white matter delineation is maintained. There is left parietal encephalomalacia. There is focal right occipital encephalomalacia. Cerebral ventricles: No ventriculomegaly. Bones/joints: Unremarkable. No acute fracture. Paranasal sinuses: Visualized sinuses are unremarkable. No fluid levels. Mastoid air cells: Visualized mastoid air cells are well aerated. Soft tissues: Unremarkable. IMPRESSION: No acute hemorrhage or edema. Electronically signed by: Eli Keith On 04/30/2020 12:35:25 PM
[2020-04-30] MEDS: FUROSEMIDE 100MG/10ML VIAL (J1940) IV SCH ×2 (13:34→17:46)
[2020-04-30] MEDS: DOBUTamine HCL 500,000 MCG in IV 1 EA IV SCH (13:37)
[2020-04-30 14:54] LABS: CALCIUM LEVEL 8.5 MG/DL (8.5-10.1); CREATININE FOR GFR 2.72 MG/DL (0.70-1.30); GLOMERULAR FILTRATION RATE 26.4 (>56)
--- NOTE | 2020-04-30 15:06 | ECHO ---
DATE OF PROCEDURE: 04/29/2020 Age: 49 Gender: Male Height: 69 inches Weight: 154 pounds Body surface area: 1.85 m2 PATIENT LOCATION: Inpatient intensive care unit (ICU), Room 3209. REFERRING PHYSICIAN: Makenzie Bradford MD. INDICATION: Heart failure (systolic and diastolic). MEASUREMENTS: 2D Measurements: RV 5.2 cm LV 6.0 cm Septum 1.1 cm Posterior wall 1.1 cm Aortic Root 3.1 cm LA 4.6 cm LVEF 5-10% Doppler Measurements: AV 0.87 m/s LVOT 0.53 m/s LVOT diameter 2.0 cm MV-E 53, A 40, E/A ratio 1.3 Early mitral deceleration time 197 m/s E prime medial 3.3, A prime medial 2.7, E prime lateral 5.3 Average E/E prime ratio 12.3/PCWP 17.2 mmHg PV 0.65 m/s Pulmonary artery acceleration time 106 m/s RVSP 37-42 mmHg IVC not visualized COMMENTS: Consistent atrioventricular A-V sequentially paced rhythm with left ventricular volume (LVV) configuration. M-mode and two-dimensional echocardiography was performed with pulsed, continuous wave, color flow, and tissue Doppler studies. Markedly dilated left ventricular with akinesis of the apex and septum, but other andino were markedly hypokinetic. Moderately dilated left atrium with grade 2 left ventricular diastolic dysfunction and current estimated mean left atrial pressure borderline increased. Moderately dilated right heart chambers with right ventricular free wall marked hypokinesis and Doppler evidence of at least moderate pulmonary hypertension. Inferior vena cava (IVC) size could not be visualized to further estimate central venous pressure. Normal aortic dimensions. Mild aortic valvular sclerosis with very mild insufficiency. Mild degenerative changes of his mitral valvular apparatus with low flow appearance to leaflet excursion and at least moderate to moderately severe mitral insufficiency. Normal appearing tricuspid valve with at least moderate insufficiency. Pacing leads could be visualized traversing right heart structures with multiple vegetations attached to these leads. Within the atrium, vegetation measures 1.3 cm x 0.4 cm. Subtle pericardial effusion. A preliminary report of this study was relayed to the patients floor the same day the study was performed. [facility] SQUARE HOSPITALAnanya
--- NOTE | 2020-04-30 15:13 | IPNPDOC ---
Text Note Date of Service The patient was seen on 04/30/20. NOTE S Patient seen and examined at bedside this morning. On full vent support central line in place. Nurse tells me there was no significant overnight events. Patient still on the orion hugger. O A/P 49 y/o M PMH of a history of pancreatitis c/b necrotic pseudocyst s/p drainage, as well as a history of a splenic abscess s/p drainage and abx, admitted for abdominal pain and found to have a persistent splenic collection, as well as suspicion for PNA and systolic CHF exacerbation with course c/b hypoxemic respiratory failure, anorexia with inability to tolerate much PO or tube feeds, recently started on TPN c/b worsening hypoxemia and worsening bibasilar opacit ies and worsening leukocytosis that has improved after stopping TPN, diuresis and addition of Vancomycin. Patient was awaiting placement when on April 29 he was found to be tachypneic and became hypotensive. At this time patient was transferred to the ICU and intubated. Echocardiogram shows vegetations patient was placed on vancomycin and meropenem for likely endocarditis. Echo verbal read shows an ejection fraction close to 5%. Head CT shows no acute infarct. Care transferred 04/[address] hernandez for complicated vent management. Hospitalist team will resume care as primary once patient is extuabted. # Acute hypoxic respiratory faliure: full vent support. versed, propofol. Echo pending read. CHF vs PNA. Pressure-support on levofed # Suspected endocarditis: Bedside echocardiogram shows vegetations. On IV meropenem and vancomycin. Blood cultures ordered. # PNA/UTI: on Meropenem, Vanc, UCx, BCx. # Hypothermia: orion hugger # Hyperk: protocol # Acute on chronic systolic CHF exacerbation. Obtain echo. # CVD: Hx of cardiomyopathy, CABG, s/p AICD and biventricular PM- follows with Dr. Giordano. # History of chronic pancreatitis: Chart mention of autoimmune pancreatitis. lipase, CMP improved. pancreatic enzymes with meals and able to tolerate PO. # Failure to thrive 2/2 to several acute on chronic issues. On tube feeds which will be on hold while he is on vasopressors. # MARTY vs worsening CKD. Nephro consulted #Persistent splenic abscess: encapsulated. Monitor OP over time. History of perisplenic/splenic abscess 02/2020, underwent IR drain in [facility] on 02/23, with history of Enterobacter species, and placed on Cipro and Flagyl for weeks. Currently afebrile, WBC wnl. Prior hospitalists before me spoke with Dr. Palmer (ID) at [facility], and we do have the same record that the splenic collection was 7 cm largest diameter, and then 4 cm post IR drain there, and noted that on recent US it is 6.5cm, slightly larger. Agreed to have another IR drain previously; however, 04/01/20 refused drainage due to it being high risk with them needing to pass needle through pleural space. Per Dr. Kent (radiologist), this would put him at increased risk for empyema, pneumothorax. # Deconditioning: PT/OT # Insomnia hold Rozerem QHS # Hx of CVA. C/w plavix, not on statin. # Hx of PE/DVT, DVT px. Eliquis BID # DVT prophylaxis: hardik Gilman Hospitalist VS,Kami, I+O VS, Kami, I+O Laboratory Tests 04/29/20 13:37 04/29/20 20:30 04/30/20 04:15 Vital Signs Date Time Temp Pulse Resp B/P (MAP) Pulse Ox O2 Delivery O2 Flow Rate FiO2 04/30/20 06:00 16 45 04/30/20 05:44 60 97 04/30/20 04:00 95.6 88/52 (64) Ventilator 04/29/20 15:10 4.0 I&O- Last 24 Hours up to 6 AM 04/30/20 06:00 Intake Total 1058.4 ml Output Total 1950 ml Balance -891.6 ml FRANCOIS GILMAN MD Apr 30, 2020 07:34
[2020-04-30] MEDS ORDERED: HumuLIN R (REGULAR) INSULIN (NovoLIN R) **100U/ML** PER UNIT IV STA (17:00)
[2020-04-30] MEDS ORDERED: CALCIUM GLUCONATE 1,000 MG in D5W MINI-BAG PLUS 100 ML IV ONE ×2 (17:00→18:00)
[2020-04-30] MEDS ORDERED: DEXTROSE 50% 50 ML SYRINGE IV STA (17:00)
[2020-04-30] MEDS ORDERED: FUROSEMIDE 100MG/10ML VIAL (J1940) IV ONE (17:00)
[2020-04-30] MEDS: APIXABAN 2.5 MG TAB (ELIQUIS) PO SCH (20:25)
[2020-04-30] MEDS: MIDAZOLAM INJ 2MG/2ML VIAL (J2250 PER 1MG) IV PRN (20:25)
[2020-04-30] MEDS: AMIODARONE 100MG TABLET (PACERONE) PO SCH (20:26)
[2020-04-30 20:28] LABS: CALCIUM LEVEL 8.4 MG/DL (8.5-10.1); CREATININE FOR GFR 2.82 MG/DL (0.70-1.30); GLOMERULAR FILTRATION RATE 25.4 (>56); POTASSIUM SERUM 5.6 MEQ/L (3.5-5.1)
[2020-05-01] VITALS (79 sets, daily range): BP systolic 86–108; BP diastolic 50–61; O2SAT 95–98
[2020-05-01] MEDS: MEROPENEM INJ 1 GM in IV 1 EA IV SCH ×2 (03:37→16:15)
[2020-05-01] MEDS: propofoL 1,000 MG in IV 1 EA IV SCH (03:38)
[2020-05-01 04:43] LABS: ALBUMIN 1.3 GM/DL (3.2-5.2); BILIRUBIN,TOTAL 0.5 MG/DL (0.2-1.0); CALCIUM LEVEL 8.1 MG/DL (8.5-10.1); CREATININE FOR GFR 2.9 MG/DL (0.70-1.30); GLOMERULAR FILTRATION RATE 24.5 (>56); POTASSIUM SERUM 5.4 MEQ/L (3.5-5.1); TOTAL PROTEIN 5.7 GM/DL (6.4-8.2); VANCOMYCIN RANDOM 27.8 UG/ML
[2020-05-01 05:11] LABS: HEMATOCRIT 25.8 % (42.0-52.0); HEMOGLOBIN 8.1 g/dl (13.5-17.5); MEAN CORPUSCULAR HEMOGLOBIN 28.6 pg (27.0-33.0); MEAN CORPUSCULAR HGB CONC 31.4 g/dl (32.0-36.5); MEAN CORPUSCULAR VOLUME 91.2 fl (80.0-96.0); PLATELET COUNT, AUTOMATED 217 10^3/uL (150-450); RED BLOOD COUNT 2.83 10^6/uL (4.30-6.10); WHITE BLOOD COUNT 12.4 10^3/uL (4.0-10.0)
[2020-05-01] MEDS: SODIUM CHLORIDE 0.9% INJ 10 ML SYR IV SCH ×2 (05:33→18:03)
[2020-05-01] MEDS: HumaLOG INSULIN (NovoLOG) PER UNIT SC SCH ×4 (05:33→23:27)
[2020-05-01 05:51] LABS: ABG BASE EXCESS 0.3 (-2.0-2.0); ABG HCO3 23.7 MEQ/L (22.0-26.0); ABG O2 SATURATION 97.3 % (95.0-99.0); ABG PARTIAL PRESSURE CO2 33.4 mmHg (35.0-45.0); ABG PARTIAL PRESSURE O2 91.9 mmHg (75.0-100.0); ABG STANDARD HCO3 24.8 MEQ/L (22.0-26.0); ABG TOTAL CO2 24.7 MEQ/L (22.0-29.0); ABG pH (ARTERIAL) 7.469 UNITS (7.350-7.450)
[2020-05-01] MEDS: IPRATROPIUM 0.5MG/ALBUTEROL 2.5MG INH SOL UD 3ML (DUONEB) NEB SCH ×2 (07:53→18:12)
[2020-05-01] MEDS: CREON-12 CAPSULE PO SCH ×3 (08:00→18:03)
[2020-05-01] MEDS: TIOTROPIUM INHALER/CAPSULE (SPIRIVA) INH SCH (08:00)
--- NOTE | 2020-05-01 08:05 | REPVR ---
PROCEDURE INFORMATION: Exam: XR Chest, 1 View Exam date and time: 05/01/2020 7:45 AM Age: 49 years old Clinical indication: Other: Intubated TECHNIQUE: Imaging protocol: XR of the chest Views: 1 view. COMPARISON: CR PORTABLE CHEST X-RAY 04/30/2020 5:58 AM FINDINGS: Tubes, catheters and devices: Endotracheal tube is 3.2 cm above the nishant. Left jugular central venous catheter and left-sided PICC line are stable in position with their tips in the SVC. Internal pacemaker/ICD. Overlying EKG leads. Lungs: The degree of pulmonary vascular congestion and interstitial prominence appears unchanged. Improved aeration of the left base with decreasing atelectasis. Pleural space: Stable small bilateral pleural effusions. No pneumothorax. Heart/Mediastinum: Cardiomediastinal silhouette is stable. Bones/joints: Bones are stable. IMPRESSION: 1. Tubes and lines are stable in position. 2. Improved aeration of the left base with decreasing atelectasis. Stable pulmonary vascular congestion and interstitial prominence which may represent edema or pneumonitis. 3. Stable small bilateral pleural effusions. Electronically signed by: Shakeel Rankin On 05/01/2020 08:05:27 AM
[2020-05-01] MEDS: APIXABAN 2.5 MG TAB (ELIQUIS) PO SCH ×2 (08:25→20:17)
[2020-05-01] MEDS: CHLORHEXIDINE GLUCONATE 0.12 % 15ML UDC (PERIDEX ORAL RINSE) MT SCH ×2 (08:26→20:16)
[2020-05-01] MEDS: ursodioL 300 MG CAP PO SCH ×2 (08:26→20:17)
[2020-05-01] MEDS: CLOPIDOGREL 75 MG TAB PO SCH (08:26)
[2020-05-01] MEDS: AMIODARONE 100MG TABLET (PACERONE) PO SCH ×2 (08:26→20:17)
[2020-05-01] MEDS: LACTOBACILLUS ACIDOPHILUS CAP (BACID) PO SCH ×2 (08:26→18:03)
[2020-05-01] MEDS: FUROSEMIDE 100MG/10ML VIAL (J1940) IV SCH ×2 (08:27→18:02)
[2020-05-01] MEDS: PANTOPRAZOLE 40MG VIAL (C9113 PER 1) IV SCH (08:27)
[2020-05-01] MEDS: METOCLOPRAMIDE INJ 10MG/2ML VIAL (J2765 PER 1) IV SCH ×3 (10:19→21:12)
--- NOTE | 2020-05-01 11:20 | IPNPDOC ---
Date Seen The patient was seen on 05/01/20. Progress Note SUBJECTIVE: Patient was seen and examined this morning during bedside rounds for ICU day 2, Hospital day 37. Patient's tube feeds were decreased to 15 units due to high residuals yesterday 04/30/20. He has continued to require levophed for blood pressure support. He is also hypothermic still requiring orion hugger. Patient is sedated on propofol but does move extremities spontaneously although appears weaker on right arm compared to left. Patient's pupils are uneven, the left pupil appears smaller than the right. He continues to respond to noxious stimuli. OBJECTIVE PHYSICAL EXAMINATION: VITAL SIGNS: Please see below. GENERAL: Pt is sedated and on ventilator. Appears cachectic. He occasionally spontaneously lifts his left arm, but is not verbally responsive. He grimaces when in pain. No changes from yesterday. HEENT: left pupil is slightly smaller than the right pupil, pupils reactive to light, temporal wasting. No changes from yesterday. CARDIOVASCULAR: RRR, no murmurs, rubs, gallops. Central venous catheter insertion site is clean and there is no oozing from site after sutures were placed yesterday on 04/30/20. RESPIRATORY: bibasilar crackles with coarse bronchophony. Pt is ventilated on mode: PRVC FiO2: 21%. Tidal volume: 440mL, RR: 16, PEEP: 5. Unchanged from 04/30/20, yesterday. ABDOMINAL: Colostomy bag, PEG tube has black staining of the inner lining. EXTREMITIES: spontaneous movement of left arm, movement of right arm noted only as response to pain, nursing staff denies seeing spontaneous right arm. Radial and Pedal pulses +3/4, normal. +2 sacral pitting edema. NEUROLOGICAL: pt is ventilated with new-onset, absence of movement of right- sided extremity. LABORATORY DATA, IMAGING STUDIES, MICROBIOLOGY: Please see below. Echocardiogram: DATE OF PROCEDURE: 04/29/2020 LVEF 5-10% Pacing leads could be visualized traversing right heart structures with multiplevegetations attached to these leads. Within the atrium, vegetation measures 1.3 cm x 0.4 cm. Subtle pericardial effusion. Markedly dilated left ventricular with akinesis of the apex and septum, but o ther andino were markedly hypokinetic. Moderately dilated left atrium with grade 2 left ventricular diastolic dysfunction and current estimated mean left atrial pressure borderline increased. Moderately dilated right heart chambers with right ventricular free wall marked hypokinesis and Doppler evidence of at least moderate pulmonary hypertension. Consistent atrioventricular A-V sequentially paced rhythm with left ventricular volume (LVV) configuration. M-mode and two-dimensional echocardiography was performed with pulsed, continuous wave, color flow, and tissue Doppler studies. Inferior vena cava (IVC) size could not be visualized to further estimate central venous pressure. Vikas Garcia MD, [facility] 04/29/[address] Head: Exam date and time: 04/30/2020 12:15 PM IMPRESSION: No acute hemorrhage or edema. Electronically signed by: Eli Keith On 04/30/2020 12:35:25 PM Exam date and time: 04/30/2020 12:15 PM Chest X-ray: Exam date and time: 05/01/2020 7:45 AM IMPRESSION: 1. Tubes and lines are stable in position. 2. Improved aeration of the left base with decreasing atelectasis. Stable pulmonary vascular congestion and interstitial prominence which may represent edema or pneumonitis. 3. Stable small bilateral pleural effusions. Electronically signed by: Shakeel Rankin On 05/01/2020 08:05:27 AM DVT prophylaxis ordered: on Eliquis. ASSESSMENT AND PLAN: This is a 49-year-old Male with an extensive cardiac and gastroenterologic history is seen today 05/01/20 on hospital day 37 and ICU day 2. Patient was admitted to the hospital due to abdominal pain and splenic abscess. The splenic abscess was drained on 02/23, a repeat drain from the abscess was not done, reconsideration by Dr. Kent on 04/01/2020 due to increased risk of pneumothorax and empyema. Pt is being evaluated and managed in the ICU due to shock of unknown etiology (possibly cardiogenic or septic). PROBLEMS: 1. Neurology: Prior history of CVA. Patient is ventilated currently and on sedation with propofol. Nursing orders were placed today to wean him off the p ropofol to assess mental status. Fentanyl and Versed are to be administered PRN. Pt has a prior history of stroke. Movement of his right arm is only in response to pain and is limited. Left arm has spontaneous movements. The pupils are uneven. Follow-up CT Head rules out embolic CVA. 2. Cardiology: History of coronary artery disease, ischemic cardiomyopathy, history of cardiac arrest. Patient is in shock, requiring vasopressors, possibly sepsis or cardiogenic. Echocardiography was done 04/29/2020, elicits LVEF of 5- 10%. Continue levophed for blood pressure support, dobutamine for ionotropic s upport. Central venous saturation is 96.3%. Patient with decompensated heart failure, CVP and BNP elevated. Continue Lasix. Continue Plavix. Continue Eliquis dose to 2.5 mg twice a day renally adjusted. 3. Pulmonology: Hypoxemic respiratory failure from pulmonary edema, possible aspiration pneumonia. Central venous saturation is 96.3%. Continue on PRVC with settings are tidal volume 440, respiratory rate 16, FiO2 21, PEEP 5. Continue daily ABG, chest x-ray, elevate head of the bed, chlorhexidine mouthwash. Reconsidered trial wean off of ventilator and transition to NIPPV because pt ABG elicited mild respiratory alkalosis. Continue on current ventilator settings. Instead, pt is weaned off of propofol to assess mental status. 4. ID: Patient's Mcpherson catheter had purulent discharge 04/28/20, urinalysis was positive, urine culture collected on 04/29/20, displayed no bacterial growth after 48 hours. Blood cultures are pending. Continue vancomycin and meropenem, consider possible endocarditis. 5.Renal: History of CKD, history of MARTY. Patient is hyperkalemic, potassium is trending down after Lasix was started yesterday 04/29/20. Continue monitoring I/O via mcpherson. 6. GI: Hx of IgG4 disease causing autoimmune pancreatitis, history of splenic abscess, continue antibiotics. Continue tube feeds while following residuals, try trickle tube feeds. A trial of Reglan, was ordered today 05/01/20 for 10mg IV Q6H for one day. Please monitor GI motility response. The dose will be considered for renal adjustment if there is a positive response to this dose of Reglan. If tube feeds stops working, consult surgery to replace PEG tube. 7. Hematology: Patient is on anticoagulation. Continue Eliquis with renally- adjusted dosing of 2.5 mg BID. Continue Plavix. Insertion site is no longer bleeding today. Hemoglobin has understandably dropped. Continue to monitor Hgb. Type and screen ordered 04/30/20 reports O+ blood with a negative antibody screen. Transfuse if hemoglobin is less than 7. DISPOSITION: Full Code Status. VS, I&O, 24H, Fishbone Vital Signs/I&O Vital Signs Date Time Temp Pulse Resp B/P (MAP) Pulse Ox O2 Delivery O2 Flow Rate FiO2 05/01/20 10:00 21 05/01/20 09:00 67 86/52 (63) 96 Ventilator 05/01/20 08:00 97.5 16 04/29/20 15:10 4.0 I&O- Last 24 Hours up to 6 AM 05/01/20 05:59 Intake Total 1027.2 ml Output Total 2200 ml Balance -1172.8 ml Laboratory Data 24H LABS Laboratory Tests 2 04/30/20 11:37: Central Line Venous O2 Saturation 96.3, Lactic Acid Level 1.3 04/30/20 11:48: Bedside Glucose (Misc Panel) 193H 04/30/20 14:13: Anion Gap 7L, Glomerular Filtration Rate 26.4L, Calcium Level 8.5 04/30/20 17:22: Bedside Glucose (Misc Panel) 197H 04/30/20 19:50: Anion Gap 7L, Glomerular Filtration Rate 25.4L, Calcium Level 8.4L 05/01/20 04:00: Nucleated Red Blood Cells % (auto) 0.0 05/01/20 04:03: Anion Gap 7L, Glomerular Filtration Rate 24.5L, Calcium Level 8.1L, Total Bilirubin 0.5, Aspartate Amino Transf (AST/SGOT) 16, Alanine Aminotransferase (ALT/SGPT) 9L, Alkaline Phosphatase 168H, Total Protein 5.7L, Albumin 1.3L, Albumin/Globulin Ratio 0.3, Random Vancomycin Level 27.8 05/01/20 05:43: Blood Gas Bicarbonate Standard 24.8, Arterial Blood pH 7.469H, Arterial Blood Partial Pressure CO2 33.4L, Arterial Blood Partial Pressure O2 91.9, Arterial Blood Total CO2 24.7, Arterial Blood HCO3 23.7, Arterial Blood Base Excess 0.3, Arterial Blood Oxygen Saturation 97.3 CBC/BMP Laboratory Tests 04/30/20 14:13 04/30/20 19:50 05/01/20 04:00 05/01/20 04:03 Microbiology Microbiology 04/29/20 Blood Culture - Preliminary, Resulted No growth after 24 hours . All specim... 04/29/20 Urine Culture - Final, Resulted GME ATTESTATION My faculty preceptor for this patient encounter was physically present during the encounter and was fully available. All aspects of the patient interview, examination, medical decision making process, and medical care plan development were reviewed and approved by the faculty preceptor. The faculty preceptor is aware and concurs with the plan as stated in the body of this note and will attest to such by his/her cosignature. I was physically present for the entire interview and exam. I agree with the assessment and plan as documented above based on my independent exam. Mason Abdalla DO May 01, 2020 11:20 Triston Castaneda May 01, 2020 18:14
[2020-05-01] MEDS: MIDAZOLAM INJ 2MG/2ML VIAL (J2250 PER 1MG) IV PRN ×2 (11:24→21:12)
[2020-05-01] MEDS: NOREPINEPHRINE BITARTRATE 8 MG in D5W 492 ML IV SCH ×3 (11:24→11:33)
[2020-05-01] MEDS ORDERED: DOBUTamine HCL 500,000 MCG in IV 1 EA IV SCH (18:00)
--- NOTE | 2020-05-01 18:15 | IPN ---
DATE: 04/21/2020 ATTENDING PHYSICIAN: Zahraa Hector MD SUBJECTIVE: Mr. Shipman was seen and examined today. He continues to not participate in physical therapy. He has been receiving tube feeds today and, according to the patients fianc, seems to be doing somewhat better. However, the patient himself continues to lie in bed and has abdominal pain mostly located in the midepigastric region. He denies any shortness of breath, but does admit to just overall generalized weakness and feeling tired. Once again, he is continuing to not work with physical therapy (PT) due to his pain. OBJECTIVE: Vital signs: Temperature 97.0, pulse 52, respiratory rate 17, blood pressure 108/72, pulse oximetry 90% on 2 liters nasal cannular. General: Patient is awake and alert although appears tired. He is cachectic appearing. Otherwise, no acute distress. HEENT: Atraumatic. He has some temporal wasting. He has no teeth. His dentures are not currently in place but his oral mucosa is pink and moist. Trachea is midline. Cardiovascular: He has a normal S1, S2. He has a regular rhythm with a somewhat bradycardic rate. There is no clicks, rubs, or murmurs. Respiratory: Patient has overall decreased breath sounds throughout with some bibasilar crackles. There is no wheezes or rhonchi. There is good respiratory effort. Abdominal: Abdomen is soft, it is nondistended. He has a colostomy in place with formed stool present. He has a percutaneous gastrostomy (PEG) tube in place as well with continuous tube feeds currently going. He has some midepigastric tenderness. No rebound tenderness or guarding. There is some left lower quadrant tenderness as well. Extremities: Patient has no edema. His lower extremities are somewhat atrophic appearing. He has full and equal pulses in bilateral upper and lower extremities. Neurologic: No focal neurological deficits. Psychiatric: Patient appears depressed and sad. LABORATORY DATA: Hematology: White blood cells 10.0, hemoglobin 11.8, hematocrit 38, platelet count 238. Chemistries: Sodium 139, potassium 4.7, chloride 110, CO2 25, BUN 71, creatinine 2.79, fasting glucose 234, calcium 7.9, magnesium 2.0.. ESR 39, C-reactive protein 8.78. ASSESSMENT AND PLAN: 1. Splenic abscess. As stated previously, the patient had been treated for Enterobacter infection for approximately 2 months as he had a collection demonstrated on CT. He has completed his treatment for this. The collection is noted on the CT, however it is decreased, if anything, from his beginning of treatment and has not changed since. The collection could be sterile or still infected. At this point, antibiotics have been discontinued. Plan is to followup with a CT in 3-4 months to see if the collection is growing. Additionally, if the patient has worsening fever or abdominal pain then a CT should be obtained to evaluate the abscess to see if it is growing. 2. Protein calorie malnutrition. This is likely multifactorial. The patient has multiple chronic illnesses and comorbidities which contribute to this. He has acute on chronic systolic congestive heart failure (CHF) and history of cardiomyopathy, which is likely the most pressing issue causing chronic cachexia and protein calorie malnutrition. The patient had been started on tube feeds by the primary team. He has Jevity 1.5 Onel added for nutrition. The patient is refusing to work with physical therapy (PT), stating he is in too much pain. The idea of hospice palliative care has been discussed with the patient at bedside, however he and his fianc refuse. He states that he continues to want to be FULL CODE as well. RECOMMENDATIONS: In regard to the patients splenic abscess, patient is currently not on antibiotics and will remain off them. Would recommend obtaining a CT of the abdomen and pelvis 3 months after his discharge. Additionally, if he does develop a fever or worsening abdominal pain, then obtain a CT abdomen and pelvis sooner to evaluate his splenic abscess. Otherwise, currently we are signing off on the patient. Thank you for the consultation. KENDELL
[2020-05-01] MEDS: DOBUTamine HCL 500,000 MCG in IV 1 EA IV SCH (18:18)
--- NOTE | 2020-05-01 18:21 | CR ---
DATE OF CONSULTATION: 04/29/2020 CHIEF COMPLAINT: Respiratory distress. HISTORY OF PRESENT ILLNESS: History was obtained from the chart and from other collateral information, as patient is somewhat lethargic and a poor historian. Patient is a 49-year-old male with an extensive past medical history of coronary artery disease (CAD), history of coronary artery bypass graft (CABG), and ischemic cardiomyopathy with prior history of cardiac arrest, history of deep venous thrombosis (DVT) and pulmonary embolism (PE), atrial fibrillation, hypertension, insulin dependent diabetes, cerebrovascular accident (CVA), chronic obstructive pulmonary disease (COPD), obstructive sleep apnea (FROILAN), noncompliant with continuous positive airway pressure (CPAP), hyperlipidemia, history of IgG-4 related disease with chronic pancreatitis as well as previous pseudocyst formation and history of colostomy, who presented with complaints initially of increased abdominal pain in March. He has a previous history of splenic abscesses, which have been drained in the past and was being followed by infectious disease at an outside hospital. Patient was admitted and started on intravenous (IV) antibiotics during this admission. He has had somewhat of a prolonged hospitalization with decompensated heart failure and hypoxemia as well as failure to thrive with anorexia and poor oral intake. Patient had also been on total parenteral nutrition (TPN) during his admission due to his malnutrition. Patient also has a history of acute kidney injury (MARTY) on chronic kidney disease (CKD) and has been on dialysis in the past. Patient was noted to have increasing work of breathing today with tachypnea and using accessory muscles of respiration with abdominal breathing. He also intermittently has been drowsy at times and lethargic. Patient also had required increased nasal cannula oxygen supplementation. He was initially given additional 40 intravenous (IV) Lasix; however, subsequent blood pressures had shown hypotension, and he was then given 250 mL normal saline bolus. Given his hypotension and his respiratory distress. Patient was transferred to the intensive care unit (ICU) for further evaluation and management. Patient did have a Sahni catheter placed, which had shown almost pus-like urine output. He also had a chest x-ray done, which showed evidence of bilateral diffuse patchy opacities with slightly increased opacities, particularly in the left base, and suspected small left pleural effusion. There was also suggestion of pulmonary vascular congestion. The previous right lower lobe atelectasis appears improved. In the ICU, patient had a left internal jugular (IJ) triple lumen placed for venous access, as he is difficult for IVs and also for possible vasopressor administration. Given his increased work of breathing as well as his mental status, there was discussion with patient's fiance, who is his healthcare proxy, about his code status and goals of care. After discussion, patient was determined to be full code, and so he was intubated and placed on mechanical ventilation. PAST MEDICAL AND SURGICAL HISTORY: 1. CAD. 2. History of CABG and stenting. 3. History of DVT and PE with cardiac arrest. 4. Ischemic dilated cardiomyopathy with previous ejection fraction (EF) of 20%. 5. Atrial fibrillation, on anticoagulation. 6. Insulin dependent diabetes. 7. Hypertension. 8. CVA. 9. COPD. 10. FROILAN, noncompliant with CPAP. 11. Hyperlipidemia. 12. Depression. 13. Chronic kidney disease (CKD). 14. IgG-4 related disease with history of chronic pancreatitis and pseudocyst as well as history of splenic abscess. 15. History of diverting colostomy and percutaneous endoscopic gastrostomy (PEG) tube placement. SOCIAL HISTORY: Patient is a former smoker. Was two packs a day for 40 years and was smoking up to his recent hospitalization. Denies any history of alcohol use or illicit drug use. FAMILY HISTORY: Noncontributory. INPATIENT MEDICATIONS: - Entresto 24/26 mg - Tylenol as needed - DuoNeb every 12 hours - amiodarone 200 mg twice a day - Eliquis 5 mg twice a day - carvedilol 3.125 mg by mouth twice a day - chlorhexidine - Plavix 75 mg by mouth daily - Lasix 40 mg by mouth daily - Prozac 40 mg by mouth daily - insulin sliding scale - Bacid - morphine 1 mg every 6 hours as needed - Zofran as needed - pancreatic enzymes - Protonix - Rozerem 8 mg every night - Spiriva - Tigan as needed - Urodiol 300 mg twice a day ALLERGIES: No known drug allergies. PHYSICAL EXAMINATION: VITAL SIGNS: Temperature 94.7 rectally, pulse 60, respirations 30, blood pressure 88/60, oxygen saturation 90% on 4 liters nasal cannula. Patient is incontinent. He does have a colostomy tube draining stool. GENERAL: Patient is cachectic. He is lying in bed using some accessory muscles for respiration with labored and abdominal breathing. HEENT: Normocephalic, atraumatic. Pupils are reactive to light bilaterally. There is some dry oral mucosa. Patient is edentulous. NECK: Supple. Trachea is midline. No palpable cervical adenopathy. CARDIOVASCULAR: Regular rate and rhythm. Normal S1 and S2. No significant murmurs appreciated. Point of maximal impulse (PMI) is displaced laterally. PULMONARY: There are crackles bilaterally and some generalized diminished breath sounds. There are more distant breath sounds on the left base. ABDOMEN: Patient has a percutaneous endoscopic gastrostomy (PEG) tube in place that has dark material in it, reportedly chronic. There is no tenderness to palpation, and his abdomen does not appear distended. He has a colostomy in placed as well on the right side draining stool with no melena. EXTREMITIES: There is no lower extremity edema in his bilateral lower extremities. He does have pitting sacral edema, however. LABORATORY DATA: WBC 9.4, hemoglobin 11.5, platelets 203. Chemistry: Sodium 135, potassium 6.4, chloride 105, bicarbonate 26, BUN 76, creatinine 2.57, glucose 155, calcium 8.7. Troponin 0.02. BNP 31,445. Albumin yesterday was 1.6. ABG: A pH was 7.363, pCO2 of 41.5, pO2 of 60.4. Urinalysis (UA) was positive for WBC as well as 3+ bacteria and appeared turbid. There was also blood noted and protein as well. IMAGING: Chest x-ray showed bilateral patchy opacities and pulmonary vascular congestion with some increased opacities in the left base as well as small left pleural effusion. There was previously noted atelectasis in the right lower lobe, appears improved. There is a PICC line in place from the lower extremity with the tip in the SVC. There is cardiomegaly, and there is an automatic implantable cardioverter defibrillator (AICD) in place. ASSESSMENT AND PLAN: 1. Mr. Shipman is a 49-year-old male with an extensive medical history, including coronary artery disease (CAD) with history of coronary artery bypass graft (CABG) and ischemic cardiomyopathy with reduced ejection fraction (EF), previous history of deep venous thrombosis (DVT), pulmonary embolism (PE), and cardiac arrest, history of chronic kidney disease (CKD), diabetes, cerebrovascular accident (CVA), and history of splenic abscess and pancreatic pseudocyst with history of malnutrition and failure to thrive. Patient has been hospitalized for prolonged course, initially presenting in on March 24 with complaints of abdominal pain requiring IV antibiotics for his splenic abscess. His course was complicated by decompensated heart failure and acute hypoxemic respiratory failure also. He also had acute kidney injury (MARTY) on chronic kidney disease (CKD) and has been on dialysis in the past. During his hospitalization, patient also had worsening anorexia and difficulty with oral intake as well as with tolerating tube feeds. He was on total parenteral nutrition (TPN) at one point as well for his malnutrition. Patient now with increasing respiratory distress with tachypnea and more labored breathing with use of accessory muscles. He also has been having more waxing and waning mental status with periods of lethargy. 2. Neurologic. Previous history of CVA. Is on anticoagulation as well as Plavix. He appears to have somewhat waxing and waning mental status currently, likely metabolic encephalopathy in the setting of some renal disease as well as likely urinary tract infection (UTI) with his positive UA. - Patient has a history of chronic pain and has been on opioids. He does have morphine ordered as needed. Now that he is intubated and is sedated, he will continue with fentanyl as needed for analgesia and will be on propofol for sedation with Versed as needed. - Will continue to monitor his neurologic status and will perform sedation vacation and weaning trials daily as tolerated. 3. Cardiovascular. Extensive cardiac history, including CAD with CABG and ischemic cardiomyopathy, status post AICD. Patient also with recent history of decompensated heart failure. He does have elevated brain natriuretic peptic (BNP) on labs, and his imaging shows findings which may be consistent with increased pulmonary vascular congestion, although underlying pneumonia is also possible. He does have central line now in place in the left internal jugular (IJ), and his central venous pressure (CVP) was elevated at 19, suggesting more component of pulmonary edema. - Will continue to monitor blood pressures. Patient may need vasopressors, such as Levophed, to maintain a mean arterial pressure (MAP) above 65. - Patient was given 40 mg IV Lasix earlier today in addition to his by mouth Lasix. With his hypotension, he was then given additional 250 mL of normal saline. Patient likely does have urinary tract infection (UTI), although unclear if he is septic. Will check a lactic and will hold off on further fluids at this time given his heart failure and elevated CVP. - Patient is on Entresto, which we will hold given his borderline blood pressure as well as with his MARTY on CKD. - Will also hold patient's beta renita for now. Will continue with amiodarone for his history of atrial fibrillation. - Will continue to trend troponins. Initial troponins were negative. Will also get an echocardiogram. 4. Pulmonary. Patient has a history of COPD. He has been on 2 liters nasal cannula oxygen supplement and today had required increasing oxygen and was noted to have increasing work of breathing and tachypnea. His ABG did not show any significant respiratory acidosis; however, given his work of breathing and with his mental status, the decision was made for intubation and mechanical ventilation. - Will continue patient on mechanical ventilator with pressure-regulated volume control (PRVC) with settings of 440/16/45 and 5. Will followup ABG 1 hour after intubation. - Continue with daily ABGs and chest x-rays while intubated. - Continue with ventilator bundle care with head of bed elevation and chlorhexidine mouthwash. - Patient has a history of PE and is on Eliquis for anticoagulation. He is on 5 mg twice a day, which given his renal dysfunction and his weight may be overdosed. He does appear to have oozing from his central line and some mild petechiae. Will hold his Eliquis today and check INR and PTT. He likely would need a lower dose once we restart his anticoagulation, depending on his coagulations, at 2.5 twice a day. 5. Infectious disease (ID). Patient has a history of splenic abscess. Had been drained in the past by interventional radiology (IR). On his recent admission, the fluid collection appeared larger; however, due to high risk procedure with CT-guided drainage, patient was placed instead on prolonged course of antibiotics. He had since completed the course of antibiotics as per ID and has been off of antibiotics. He did have UA done today, which does show a UTI. His x-ray continues to show bilateral patchy opacities, some of which are likely fluid, although there is possibility of aspiration given his history and pneumonia as well. - Will check blood cultures and followup urine culture. - Will start patient on vancomycin and meropenem. He does have a history of Methicillin-resistant Staphylococcus aureus (MRSA). Will de-escalate depending on his culture results. - Gastrointestinal (GI). Patient has a history of IgG-4 related disease with chronic pancreatitis and pseudocyst formation. He also has a history of a chronic splenic abscess that has been drained in the past. Patient also has a diverting colostomy and a percutaneous endoscopic gastrostomy (PEG) tube placement. There have been issues with his PEG tube in terms of functioning; however, as it was surgically/endoscopically paced, IR was unable to convert his PEG tube to a gastrostomy (G) tube. His PEG tube currently appears to be functioning at this time, although it does appear to have some chronic black coating within it. - Will continue patient with tube feeds as tolerated with monitoring or residuals. - Patient has protein malnutrition and failure to thrive with hypoalbuminemia. Will start protein supplements as well through his PEG tube. - Continue with his pancreatic supplements. - Continue with Protonix. If patient is having more difficulty with his PEG tube, he may need revision by surgery. 6. Renal. Patient has a history of CKD. Appears to have some mild MARTY on CKD. Has been on dialysis in the past. He also is noted to have hyperkalemia on his recent labs. - Will give patient 1 gram of calcium and also insulin/D50 for his hyperkalemia. Will followup with repeat chemistry and continue to monitor his renal function. - Patient had a Sahni catheter placed and will monitor intake and output. He had been on Lasix but was having minimal urine output noted. He may need additional diuretics but will hold for now and monitor his blood pressures. - Will continue to renally dose medications and avoid nephrotoxins if possible. 7. DVT prophylaxis, on Eliquis. 8. Gastrointestinal (BI) prophylaxis, Protonix. CODE STATUS: Full code. Discussed with patient's fiance, who is the healthcare proxy, about his code status and goals of care. She states that patient would want all measures done, and that includes possible tracheostomy placed if he is unable to be weaned from the ventilator. Total critical are time spent, not including any procedures is approximately 1 hour and 50 minutes. MTDD
--- NOTE | 2020-05-01 18:37 | RO ---
DATE OF OPERATION: 04/29/2020. PREPROCEDURE DIAGNOSIS: Respiratory distress and hypotension. POSTPROCEDURE DIAGNOSIS: Respiratory distress and hypotension. PROCEDURE: Internal jugular central line. INDICATION: Venous access. ATTENDING PHYSICIAN: Makenzie Bradford M.D. CONSENT: The procedure was performed emergently and permission was implied due to the emergent nature of the procedure. PROCEDURE SUMMARY: Central line insertion practices, forms completed by independent observer. A timeout was performed. Full sterile technique was maintained throughout the procedure including surgical cap, mask, protective eyewear, full gown and sterile gloves. Patient was placed in the Trendelenburg position. The left neck region was prepped using chlorhexidine swab and draped in sterile fashion using a full drape and a sterile probe cover employed. The left internal jugular vein was identified using ultrasound. Anesthesia was achieved over the vein using 1% Lidocaine. Using real time ultrasound guidance, the introducer needle was inserted into the internal jugular vein under direct ultrasound visualization. Venous blood was withdrawn. The syringe was removed and a guidewire was advanced into the introducing needle. The introduced needle was removed over the guidewire and the guidewire was visualized in the internal jugular vein by ultrasound. A small incision was made at the skin surface with a scalpel and the dilator was exchanged over the guidewire. After appropriate dilation was obtained, the dilator was exchanged over the wire for a triple lumen central venous catheter. The wire was removed and the catheter was sutured in place at 20 cm. A sterile Chlorhexidine/impregnated dressing was placed over the catheter at the insertion site. The patient tolerated the procedure without any hemodynamic compromise. At time of procedure completion, all ports aspirated and flushed properly. Post procedure chest x-ray showed the line in satisfactory position and no pneumothorax. ESTIMATED BLOOD LOSS: Less than 5 mL. MTDD
--- NOTE | 2020-05-01 18:39 | REP ---
PICC LINE INSERTION WITH NELLA The procedure was performed under the direct supervision of Dr. Hamilton. The risks and benefits of the procedure were explained to the patient and informed consent was obtained. The left basilic vein was localized using ultrasound guidance. The skin was prepped and draped in a sterile fashion. A 1% Lidocaine was used as a local anesthetic. Using ultrasound guidance, the basilic vein was cannulated and a 0.018 guidewire was inserted and advanced to the SVC using fluoroscopic guidance. The needle was removed and a 5.5 Tajik dilator and Peel-Away sheath was inserted over the guidewire. A 5.5 Tajik dual-lumen catheter was cut to a length of 45 cm. The dilator was removed and the catheter was inserted over the guidewire with the tip ending in the SVC. The Peel-Away sheath was removed, and the catheter was flushed with heparinized saline as per hospital protocol. The catheter was affixed to the skin and a sterile dressing was applied. The patient tolerated the procedure well and there were no immediate complications. 0.4 minutes of fluoroscopy time was utilized for this procedure. KENDELL
--- NOTE | 2020-05-01 18:41 | REP ---
PORTABLE CHEST X-RAY CLINICAL: Pulmonary edema. Effusions. COMPARISON: 04/04/2020. FINDINGS: Bilateral mid to lower lobe infiltrates (left greater than right) and lower lobe opacities suggesting areas of atelectasis/consolidation and pleural fluid appears essentially unchanged. Mediastinum and cardiac silhouette stable including cardiomegaly and pacemaker. Skeletal structures are intact. IMPRESSION: No significant change from prior examination, although mild improvement on the right side cannot definitively be excluded. MTDD
[2020-05-02] VITALS (13 sets, daily range): BP systolic 94–105; BP diastolic 50–57; O2SAT 93
[2020-05-02] MEDS: METOCLOPRAMIDE INJ 10MG/2ML VIAL (J2765 PER 1) IV SCH (03:52)
[2020-05-02] MEDS: MIDAZOLAM INJ 2MG/2ML VIAL (J2250 PER 1MG) IV PRN (03:52)
[2020-05-02] MEDS: MEROPENEM INJ 1 GM in IV 1 EA IV SCH (03:52)
[2020-05-02 04:13] LABS: BASO # 0.1 10^3/uL (0.0-0.2); BASO % 0.5 % (0.0-1.0); EOS # 0.2 10^3/uL (0.0-0.5); EOS % 1.5 % (0.0-3.0); HEMATOCRIT 25.6 % (42.0-52.0); HEMOGLOBIN 8.1 g/dl (13.5-17.5); LYMPH # 0.9 10^3/uL (1.5-5.0); LYMPH % 8.8 % (24.0-44.0); MEAN CORPUSCULAR HEMOGLOBIN 28.7 pg (27.0-33.0); MEAN CORPUSCULAR HGB CONC 31.6 g/dl (32.0-36.5); MEAN CORPUSCULAR VOLUME 90.8 fl (80.0-96.0); MONO # 1.3 10^3/uL (0.0-0.8); MONO % 12.7 % (0.0-5.0); NEUTROPHILS # 7.5 10^3/uL (1.5-8.5); NEUTROPHILS % 76.2 % (36.0-66.0); PLATELET COUNT, AUTOMATED 207 10^3/uL (150-450); RED BLOOD COUNT 2.82 10^6/uL (4.30-6.10); WHITE BLOOD COUNT 9.9 10^3/uL (4.0-10.0)
[2020-05-02 04:45] LABS: CREATININE FOR GFR 3.01 MG/DL (0.70-1.30); GLOMERULAR FILTRATION RATE 23.5 (>56); PERCENT SATURATION 31.9 % (19.7-50.0)
[2020-05-02] MEDS: SODIUM CHLORIDE 0.9% INJ 10 ML SYR IV SCH (05:39)
[2020-05-02] MEDS: HumaLOG INSULIN (NovoLOG) PER UNIT SC SCH ×2 (05:39→12:04)
[2020-05-02 05:44] LABS: ABG BASE EXCESS -0.1 (-2.0-2.0); ABG HCO3 23.8 MEQ/L (22.0-26.0); ABG PARTIAL PRESSURE CO2 35.9 mmHg (35.0-45.0); ABG PARTIAL PRESSURE O2 67.8 mmHg (75.0-100.0); ABG STANDARD HCO3 24.3 MEQ/L (22.0-26.0); ABG TOTAL CO2 24.9 MEQ/L (22.0-29.0)
[2020-05-02] MEDS: LACTOBACILLUS ACIDOPHILUS CAP (BACID) PO SCH (07:55)
[2020-05-02] MEDS: CREON-12 CAPSULE PO SCH (07:55)
[2020-05-02] MEDS: IPRATROPIUM 0.5MG/ALBUTEROL 2.5MG INH SOL UD 3ML (DUONEB) NEB SCH (08:00)
[2020-05-02] MEDS: TIOTROPIUM INHALER/CAPSULE (SPIRIVA) INH SCH (08:00)
[2020-05-02] MEDS: APIXABAN 2.5 MG TAB (ELIQUIS) PO SCH (08:12)
[2020-05-02] MEDS: PANTOPRAZOLE 40MG VIAL (C9113 PER 1) IV SCH (08:13)
[2020-05-02] MEDS: CLOPIDOGREL 75 MG TAB PO SCH (08:13)
[2020-05-02] MEDS: CHLORHEXIDINE GLUCONATE 0.12 % 15ML UDC (PERIDEX ORAL RINSE) MT SCH (08:13)
[2020-05-02] MEDS: AMIODARONE 100MG TABLET (PACERONE) PO SCH (08:13)
[2020-05-02] MEDS: ursodioL 300 MG CAP PO SCH (08:15)
--- NOTE | 2020-05-02 09:26 | ECGEPIP ---
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
[2020-05-02] MEDS: NOREPINEPHRINE BITARTRATE 8 MG in D5W 492 ML IV SCH (11:00)
[2020-05-02] MEDS: FUROSEMIDE 100MG/10ML VIAL (J1940) IV SCH (11:04)
[2020-05-02] MEDS ORDERED: METOCLOPRAMIDE INJ 10MG/2ML VIAL (J2765 PER 1) IV SCH (12:00)
[2020-05-04 08:34] LABS: BASO # 0.1 10^3/uL (0.0-0.2); EOS # 0.2 10^3/uL (0.0-0.5); HEMATOCRIT 37.4 % (42.0-52.0); HEMOGLOBIN 11.5 g/dl (13.5-17.5); LYMPH # 1.2 10^3/uL (1.5-5.0); LYMPH % 11.1 % (24.0-44.0); MEAN CORPUSCULAR HEMOGLOBIN 27.4 pg (27.0-33.0); MEAN CORPUSCULAR HGB CONC 30.7 g/dl (32.0-36.5); MEAN CORPUSCULAR VOLUME 89.3 fl (80.0-96.0); MONO # 1.4 10^3/uL (0.0-0.8); MONO % 12.5 % (0.0-5.0); NEUTROPHILS % 72.9 % (36.0-66.0); PLATELET COUNT, AUTOMATED 331 10^3/uL (150-450); RED BLOOD COUNT 4.19 10^6/uL (4.30-6.10); WHITE BLOOD COUNT 10.9 10^3/uL (4.0-10.0)
[2020-05-04 09:28] LABS: APPEARANCE, URINE HAZY (CLEAR); BACTERIA, URINE AUTO NEGATIVE (NEGATIVE); BILIRUBIN, URINE AUTO NEGATIVE (NEGATIVE); BLOOD, URINE BLOOD 3+ (NEGATIVE); COLOR, URINE YELLOW (YELLOW); GLUCOSE, URINE (UA) AUTO 1+ mg/dL (NEGATIVE); KETONE, URINE AUTO NEGATIVE (NEGATIVE); LEUKOCYTE ESTERASE, URINE AUTO 2+ (NEGATIVE); MUCUS, URINE SMALL (NEGATIVE); NITRITE, URINE AUTO NEGATIVE (NEGATIVE); PROTEIN, URINE AUTO 2+ mg/dL (NEGATIVE); RBC, URINE AUTO 117 /HPF (0-3); SPECIFIC GRAVITY URINE AUTO 1.009 (1.002-1.035); SQUAMOUS EPITHELIAL CELL UR AU 0 /HPF (0-6); UROBILINOGEN, URINE AUTO 0.2 mg/dL (0.0-2.0); WBC, URINE AUTO 63 /HPF (0-3)
[2020-05-04 09:31] LABS: INR 2.2; PARTIAL THROMBOPLASTIN TIME 40.9 SECONDS (24.2-38.5); PROTHROMBIN TIME 24.9 SECONDS (12.5-14.3)
--- NOTE | 2020-05-04 17:37 | CCN ---
DATE: 05/02/2020 Start Time: 949 stop time 1032 SUBJECTIVE: I then attended Dae Shipman here in intensive care. The patient has been examined and chart reviewed. T-max overnight 98.2, blood pressure 94/101 systolic and he remains on 1 mcg of Levophed. He remains on low-dose dobutamine. Heart rate generally in the 60s, respiratory rate 16 to 18 and he is now on room air on his FiO2. Chest x-ray shows lines and tubes in good position. Cardiomegaly, borderline edema, but no other new findings. Laboratory examination shows white blood cell count of 9.9, hemoglobin 8.1, platelet count 207,000, 76% segments, no bands. Sodium 136, potassium 5.0, chloride 102, Co2 27, BUN 65, creatinine 3.01 today, essentially unchanged from 2.9 yesterday. Blood gas done this morning on PRVC, tidal volume 440, respiratory rate is 16. PEEP of 500, FiO2 of 21%, pH 7.440, PCO2 of 35.0, pO2 of 67.8. He remains on vancomycin and meropenem. Cultures have remained negative. PHYSICAL EXAMINATION: He is easily arousable, awake, alert and appropriate and follows all commands this morning, having been weaned from propofol. Pupils do react. Sclerae are clear. He remains somewhat emaciated. Trachea is in the midline. Chest: Diminished, but symmetric expansion. Mildly diminished at the bases with some faint opening crackles dependently, but no focal adventitious breath sounds anteriorly. Cardiac examination is regular. Peripheral pulses palpable, trace edema. Abdomen shows his colostomy to be pink and functioning well. Otherwise, abdomen is soft with no obvious organomegaly or masses. Extremities: Shows no cyanosis or clubbing. Neurologically, he is globally weak, but does move his extremities. Neurologically, as outlined above. Most pressing problems requiring my presence at the bedside: 1. Respiratory failure, multifactorial. 2. Cardiomyopathy with markedly diminished EF 5 to 10%. 3. Automatic implantable cardioverter defibrillator (AICD) with vegetations by echocardiogram. 4. Renal failure. 5. Splenic abscesses. 6. Longstanding previous tobacco abuse. 7. Previously longstanding anticoagulation. 8. Insulin dependent diabetes mellitus. 9. Anticoagulation on Eliquis. 10. Underlying coronary artery disease. 11. History of coronary artery bypass grafting and stenting. 12. Previous deep venous thrombosis (DVT), pulmonary embolus (PE) with history of cardiac arrest. I had a long discussion with the patient, as well as his healthcare proxy this morning. Given the fact that he has had significant improvement in his mental status and has a decline in his cardiac function with what we have found with echocardiogram, I believe it imperative that he be transferred to a higher level of care if we are able to offer him the best chance of survival. They are both in agreement with that. I spoke with [facility] who does not feel that they have the capabilities for automatic implantable cardioverter defibrillator (AICD) explantation. They suggested [facility] or [facility] and I will make those phone calls this morning. At this point, however, we will wean the ventilator as able; but in view of the above, I am not anxious for extubation as he will need transfer. He was placed on Reglan yesterday and he is tolerating tube feeds much better with markedly diminished residuals. We will continue his current broad-spectrum antimicrobials in view of the above. He remains on anticoagulation. Sugars have been under reasonable control at this point. I will stop his dobutamine as he has been on it for several days and will monitor his urine output. I will leave his Lasix dose as it is for now as his creatinine is essentially unchanged and he has reasonable urine output. In view of his multiorgan dysfunction and the findings we have addressed above, he has a very high likelihood of not surviving this hospitalization, but I will continue to explore transfer if we are going to give him the best chance for survival. I left the bedside at 1032 hours. 42 minutes of critical care time at bedside, not including procedures. KENDELL
--- NOTE | 2020-05-04 17:40 | REP ---
PORTABLE CHEST X-RAY CLINICAL: Status post intubation. COMPARISON: 04/29/2020. FINDINGS: Endotracheal tube 3 cm above the nishant. Left internal jugular (IJ) line with tip in the superior vena cava (SVC). Pacemaker in stable position. The cardiac silhouette is within normal limits. Perihilar and left lower lobe consolidations along with suspected bilateral layering effusions and basilar atelectasis again noted and relatively similar to prior examination, although mild improvement to the left hemithorax is suggested. No pneumothorax. Skeletal structures are intact. IMPRESSION: Perihilar and lower lobe atelectasis/consolidations along with suspected small pleural effusions similar to prior examination; although mild left-sided improvement is suspected. MTDD
--- NOTE | 2020-05-06 13:03 | POST-OPPD ---
Postoperative Procedure Note Date Of Procedure: Apr 08, 2020 Time Of Procedure: 16:00 Gastrostomy to Gastrojejunostomy conversion Clinical Information:Pancreatitis. Malnourished. Not tolerating gastric feeds. Physician: Dr. Doherty. Procedure: The patient was advised of the benefits, risks, and alternatives of the procedure and informed consent was obtained. A time out was performed with verification of the patient's name, MRN, site of procedure, and type of procedure to be performed. The patient was positioned in the supine position on the angiographic table. The site was prepped and draped in the usual sterile fashion. Moderate sedation was performed by the physician including the presence of an independent trained observer who assisted in monitoring the patient's level of consciousness and physiological status. Following the administration of fentanyl and Versed the physician spent 60 minutes of continuous [id number] time with the patient. A strickler attendant radiograph reveals an endoscopically placed, mushroom cap Gastrostomy catheter in the stomach. The skin and subcutaneous tissues surrounding the existing catheter were anesthetized with lidocaine. Contrast was injected through the catheter confirming the catheter to be appropriately positioned within the stomach. A stiff Glidewire advanced through the catheter into the stomach but the catheter could not be removed over the wire. Patient is on blood thinners and attempts to percutaneously remove this endoscopically placed mushroom Gastrostomy catheter resulted in excessive bleeding. Therefore the catheter was left in place. A Kumpe catheter in conjunction with a wire was advanced adjacent to the existing gastrostomy catheter into the stomach. The Kumpe catheter in conjunction with a wire, was used under fluoroscopy guidance to try to cannulate the pylorus and duodenum. After multiple attempts, the existing gastrostomy catheter proved obtrusive. The existing gastrostomy catheter was flushed. The patient tolerated the procedure well and was returned to the PRU in stable condition. EBL:Less than 5 mL Complications:None. Conclusion: 1. Unable to remove mushroom cap style, endoscopically placed gastrostomy catheter for G to GJ conversion. 2. Patient would need to stop Eliquis for 48 hours and repeat attempt at gastrostomy removal and conversion to GJ. Thank you for this referral YEYO DOHERTY MD May 06, 2020 13:03
--- NOTE | 2020-05-11 12:53 | DS ---
DATE OF ADMISSION: 03/25/2020 DATE OF DISCHARGE/TRANSFER: 05/02/2020 DISCHARGE DIAGNOSES: * Cardiomyopathy with vegetations on indwelling hardware. * Chronic renal failure. SECONDARY DIAGNOSES: * Coronary artery disease. * Respiratory failure, multifactorial. * Splenic abscesses. DISCHARGE MEDICATIONS: - Albuterol as needed - Coreg 3.125 mg twice a day - Spiriva - Actigall - Tylenol - Protonix - Plavix 75 mg daily - Creon 12 one as needed daily - Insulin on a sliding scale - Levophed running at 1 mcg per minute - Meropenem 1 gm IV daily - Vancomycin, dosing adjusted per levels - Versed p.r.n. - Fentanyl 25 mcg p.r.n. - Lasix 60 mg IV twice a day - Reglan 10 mg IV every 6 hours HISTORY: Mr. Shipman was admitted on 03/24/2020 with increasing pain secondary to chronic pancreatitis. He is known to have chronic splenic abscesses. He also has the above diagnoses. He was admitted and treated with intravenous antibiotics and was able to be progressed to alternate level of care (ALC) status. On 04/29/2020 he was noticed to have a change in mental status. He was transferred to the ICU for increasing work of breathing. On repeat echocardiogram done at that point he was noticed to have a markedly diminished ejection fraction compared to priors, now with an ejection fraction of 5%. Multiple vegetations were noted on his AICD leads. At that point he was on IV dobutamine, increased Lasix and sedation as needed. He was continued on his broad spectrum antimicrobials. Over several days, he had improved oxygenation. Renal function remained stable with a creatinine of about 3. We were able to wean his sedation. Given the fact that he had marked improvement in his mental status but now with concern over the vegetations on his AICD, I spoke with the patient's health care proxy and it was agreed that he would benefit from a transfer to a higher level of care. I spoke with [facility] and he has been accepted on the service of Dr. Roldan in their cardiac unit. Arrangements will be made for transfer today. COVID-19 testing is pending at the time of this dictation. Please refer to the hospital record for appropriate laboratories. [facility]
--- NOTE | 2020-05-16 08:45 | IPN ---
DATE: 04/02/2020 Mr. Shipman is seen this morning on his bedside. He is feeling about the same and remains weak. His Lasix has been on hold after good diuresis due to risk for dehydration and worsening acute renal failure. Drainage of his left abdominal parasplenic abscess is currently on hold as interventional radiology at [facility] felt it was high risk for drainage due to need for entry through the pleural space. Hospitalist service has discussed with interventional radiology and infectious disease at [facility] where he had prior drainage done. The plan at this time is to continue with IV antibiotics and repeat imaging to see if size of the fluid collection increases or decreases and then further plans will be made. At this point, patient denies any fever or chills. On physical exam, temperature 98 degrees Fahrenheit, heart rate 70 per minute, and respiratory rate 18 per minute. Blood pressure 120/70 mmHg and oxygen saturation 94%. His head is atraumatic. Neck is supple and jugular venous distention (JVD) is not abnormally elevated. Heart sounds are regular are lungs with occasional basilar rales. Good breath sounds are audible bilaterally. Abdomen is soft with left upper quadrant tenderness and bowel sounds are present. Extremities have minimal edema on the right lower extremity. Neurologically he is awake, alert, and oriented times three. Todays labs show sodium level 140, potassium 3.8, BUN 55, and creatinine 3.88. Glucose 188 and calcium 8.6. WBC count is 12.4, hemoglobin 11.1, and hematocrit 35.1. PROBLEMS: 1. Acute renal failure superimposed on chronic kidney disease. Patient has slight worsening of kidney function over the last few years. Currently, diuretics are on hold. There is no emergent indication for dialysis, however he is likely to require dialysis if his kidney function does not improve. 2. Acute on chronic systolic congestive heart failure. Patient has known history of cardiomyopathy with severely decreased left ventricular ejection fraction. We diuresed him with intravenous Lasix and volume status has improved significantly. At present, his diuretic is on hold. We did have a chest x-ray done yesterday and the results are still pending at this time. 3. Anemia. His anemia is stable at present and does not need any urgent intervention. [facility]ENTER[facility]anya
--- NOTE | 2020-05-16 08:46 | IPN ---
DATE: 04/01/2020 SUBJECTIVE: Mr. Shipman is seen this morning at his bedside. He is still feeling very weak. He denies any nausea or vomiting. He reports that he does not usually eat breakfast. PHYSICAL EXAMINATION: Temperature 97.5 degrees Fahrenheit, heart rate 80 per minute, respiratory rate 16 per minute, blood pressure 120/73 mmHg and oxygen saturation 91% on 3 liters of oxygen. Head is atraumatic. Neck supple and JVD not abnormally elevated. There is no oral thrush or ulcers. Heart sounds are regular. Lungs have basilar rales on the right side, left side sounds much clearer. Abdomen is soft and tenderness in the left upper quadrant is present. Extremities have no cyanosis or clubbing. Right lower and upper extremity edema is much improved, but not completely resolved. There is no edema on the left side. Neurologically, he is awake and at his baseline mentation. LABORATORY DATA: Todays labs: WBC 11.7, hemoglobin 10.7 and hematocrit 32.9. Sodium 142, potassium 3.7, CO2 26, BUN 48, and creatinine 3.75. PROBLEMS: 1. Acute kidney injury superimposed on chronic kidney disease: No significant change in kidney function over the last couple of days. Patient seems to have advancing disease and at this point, there is no emergent need for dialysis. 2. Congestive heart failure: Patient is known to have systolic congestive heart failure with ejection fraction about 25%. He has been on I.V. Lasix with good response, however, I stopped the diuretic last evening due to risk for over-diuresis. A chest x-ray has been ordered this morning to evaluate for congestive heart failure and then we can adjust the dose of diuretic. 3. Intraabdominal fluid collection: Patient is known to have perisplenic fluid collection, for which drainage will need to be done. He is waiting for his INR to come down. 4. Anemia: At present, his anemia is stable and we will continue to monitor closely. KENDELL
--- NOTE | 2020-05-16 08:47 | IPN ---
DATE: 03/31/2020 SUBJECTIVE: Mr. Shipman is seen this morning at his bedside. He is feeling slightly better today and reports that his abdominal pain is improved to a certain extent. He did not get procedure done yesterday due to elevated INR. He denies any dyspnea or chest pain. Peripheral edema has improved over the last 24 hours. PHYSICAL EXAMINATION: Temperature 97.6 degrees Fahrenheit, heart rate 78 per minute, respiratory rate 16 per minute, blood pressure 117/69 mmHg and oxygen saturation 90% on 2 liters of oxygen. Head is atraumatic. Lips are dry and there is no oral thrush or ulcers. Neck veins do not seem to be abnormally distended. Heart sounds are regular. Lungs have bilateral diminished breath sounds. I do not hear any wheezing. Abdomen is soft with tenderness in the left upper extremity and bowel sounds are normal. Extremities without any cyanosis or clubbing. Right lower extremity edema is significantly improved since admission. Right upper extremity remains also much better, but still present around the elbow area. Neurologically he is awake, alert and oriented x3. LABORATORY DATA: Todays labs: INR 2.0. Sodium 140, potassium 3.8, CO2 25, BUN 49, creatinine 3.70, glucose 99 and calcium 8.5. Total protein 6.0 and albumin 2.0. WBC 12.4, hemoglobin 11.3, hematocrit 34.5 and platelets 259,000. PROBLEMS: 1. Acute kidney injury superimposed on chronic kidney disease: No significant bladder changer the last couple of days with diuresis. At present, he has no uremic symptoms and we will continue to monitor his kidney function. 2. Congestive heart failure/peripheral edema: Volume status has improved with I.V. Lasix, however, he is still hypoxic. I am going to get a chest x-ray today to assess for possible pleural effusion or infiltrates. His diuretic will be stopped after dose today and we will reassess him again tomorrow for further diuresis needs. 3. Abdominal pain with perisplenic fluid collection: Patient is going to need drainage of his perisplenic fluid, however, his INR is still elevated. His Coumadin has been on hold. It remains to be seen if this fluid is infected. He remains on Cipro 500 mg daily at this time. I will defer any antibiotic changes to hospitalist service. KENDELL
--- NOTE | 2020-05-16 08:48 | IPN ---
DATE: 03/30/2020 SUBJECTIVE: Mr. Shipman is seen this morning at his bedside. He is diuresing very well with intravenous Lasix. He denies any shortness of breath this morning. His edema on the right lower extremity and right upper extremity is slightly better. Patient denies any nausea or vomiting. He did not eat this morning as he has been NPO for possible drainage of his parasplenic fluid collection. PHYSICAL EXAMINATION: VITAL SIGNS: Temperature 97.4 degrees Fahrenheit, heart rate 74 per minute, respiratory rate 18 per minute. Blood pressure 141/75 mmHg. Oxygen saturation 90% on room air. Intake and output records from yesterday showed total intake 820 and output 2000 mL. HEENT: Head is atraumatic. His oral mucosa is somewhat dry today and lips are very dry. NECK: Neck veins are not abnormally distended. HEART: His heart sounds are regular. LUNGS: Diminished breath sounds, particularly on the right lower one-third and also left base. He has bibasilar rales. ABDOMEN: Soft and tender in the left upper quadrant. His colostomy is functioning but a small amount of stool is present in the bag. EXTREMITIES: No cyanosis or clubbing. There is edema on the right upper and lower extremities. There is no edema on the left leg. NEUROLOGIC: He is awake, alert and oriented x3. LABORATORY DATA: Todays labs showed a WBC of 12.0, hemoglobin 11.5 and hematocrit 36.7, platelets 299,000. Sodium 143, potassium 4.4, CO2 25, BUN 51 and creatinine 3.72. Glucose 123 and calcium is 8.8. Total protein 6.4 and albumin 2.2. PROBLEMS: 1. Acute renal failure superimposed on chronic kidney disease. Slight worsening of kidney function is noticed since yesterday. This is related to diuresis. He had acute renal failure even on admission. At present, he does not have any overt uremic symptoms and will continue to monitor kidney function closely. 2. Congestive heart failure, acute on chronic systolic with peripheral edema. His volume status decompensated and he is receiving intravenous Lasix 80 mg every 8 hours. I am going to continue with the same for today. 3. Metabolic acidosis. His acidosis has improved and I am going to stop his sodium bicarbonate. 4. Intraabdominal fluid collection. Patient is likely to get his fluid drained today, however his INR is still elevated and I am concerned about that. I will leave it up to IR. 5. Anemia, his anemia is stable at this point and we will continue to monitor closely. 6. Hyperkalemia. Yesterday, his potassium level was 6.2 which has corrected now and we will continue to monitor his electrolytes on a daily basis. MTDD
--- NOTE | 2020-05-16 08:49 | IPN ---
DATE: 03/29/2020 SUBJECTIVE: Mr. Shipman is seen this morning at his bedside. He reports feeling slightly better today. Yesterday I started I.V. Lasix because of significant volume overload. His left upper quadrant abdominal pain still persists. Patient denies any fever or chills. He reports he did not sleep well last night. PHYSICAL EXAMINATION: Temperature 97.9 degrees Fahrenheit, heart rate 76 per minute, respiratory rate 17 per minute, blood pressure 135/60 mmHg and oxygen saturation 91% on room air. Head is atraumatic. Neck supple and without any obvious JVD. There is no oral thrush or ulcers. Heart sounds are regular. Lungs with a few basilar rales bilaterally. Abdomen is soft with tenderness on the left side. Feeding tube is in place. His colostomy is putting out only small amount of liquid stool. Extremities have no cyanosis or clubbing. He has significant edema on right lower extremity all the way up to waist. There is some edema on the right upper extremity also, no edema on the left side noted. LABORATORY DATA: Todays labs: WBC 11.0, hemoglobin 12.0, hematocrit 38.8, platelets 334,000. Sodium 138, potassium 6.2, CO2 19, BUN 52, creatinine 3.5, glucose 122 and calcium 8.7. PROBLEMS: 1. Acute renal failure superimposed on chronic kidney disease: Kidney function continues to worsen. He still has urine output and responding to Lasix. At this time, there is no emergent need for dialysis, however, it is quite likely that he will end up needing dialysis if his kidney function does not improve. 2. Hyperkalemia: Potassium level has worsening significantly. I think this is partly related to dietary indiscretion and partly related to acute kidney injury. Yesterday he was drinking quite a bit of milk. I have advised him to avoid any orange juice, bananas or milk. I will change his diet to 2 gram potassium diet. He has already been ordered one dose of Kayexalate 15 grams today and electrolytes will be checked again at 1:00 p.m. I am also increasing his diuretic, which will also help to correct his hyperkalemia. 3. Congestive heart failure and hypervolemia: His volume status remains decompensated. I am increasing the dose of Lasix to 80 mg every 8 hours. 4. Congestive heart failure with decreased ejection fraction: His volume status remains decompensated. I.V. Lasix has been started since yesterday, however, he did not respond very well. I am increasing the dose to 80 mg every 8 hours and we will see how he does. 5. Abdominal pain and perisplenic fluid collection: Most likely this is through the cyst. Patient is likely to require drainage. This is being managed by hospitalist service. KENDELL
--- NOTE | 2020-05-20 12:09 | REP ---
DATE: 05/02/2020 PORTABLE CHEST HISTORY: Intubated. REPORTS: Single frontal portable view of the chest is performed and compared to prior study of 05/01/2020. Bilateral interstitial prominence and vascular congestion appears mildly improved. Heart and mediastinum are unchanged. Right dual lead pacemaker is unchanged. Endotracheal tube and left central venous catheter are unchanged in position. MTDD
== END 2020-05-02 12:47 | disposition short-term general hospital (02) | DRG 814 ==
LOC: M ED 17:20 → M ED INP 21:21 → EEVIPCON 21:21 → M MSPAV 23:55 → M ICU 04-12 12:33 → M PCU 04-13 17:10 → M MSPAV 04-18 18:27 → M ICU 04-29 14:20
PROVIDERS: ADMIT Student in an Organized Health Care Education/Training Program; ATTEND Internal Medicine Pulmonary Disease
PROC: 0WJ Anatomical Regions, General, Inspection (ICD-10-PCS; 2020-04-08)
PROC: 3E0436Z Introduction of Nutritional Substance into Central Vein, Percutaneous Approach (ICD-10-PCS; 2020-04-10)
PROC: 02HV33Z Insertion of Infusion Device into Superior Vena Cava, Percutaneous Approach (ICD-10-PCS; principal; 2020-04-10 14:00)
PROC: 02HV33Z Insertion of Infusion Device into Superior Vena Cava, Percutaneous Approach (ICD-10-PCS; 2020-04-29)
PROC: 5A1945Z Respiratory Ventilation, 24-96 Consecutive Hours (ICD-10-PCS; 2020-04-29)
PROC: 0BH17EZ Insertion of Endotracheal Airway into Trachea, Via Natural or Artificial Opening (ICD-10-PCS; 2020-04-29)
DX: D73.3 Abscess of spleen (principal); I50.23 Acute on chronic systolic (congestive) heart failure; J96.01 Acute respiratory failure with hypoxia; G93.41 Metabolic encephalopathy; I42.0 Dilated cardiomyopathy; K86.2 Cyst of pancreas; N17.9 Acute kidney failure, unspecified; I13.0 Hypertensive heart and chronic kidney disease with heart failure and stage 1 through stage 4 chronic kidney disease, or unspecified chronic kidney disease; K86.1 Other chronic pancreatitis; N11.9 Chronic tubulo-interstitial nephritis, unspecified; J98.11 Atelectasis; B37.0 Candidal stomatitis; N39.0 Urinary tract infection, site not specified; J81.1 Chronic pulmonary edema; I25.10 Atherosclerotic heart disease of native coronary artery without angina pectoris; I48.91 Unspecified atrial fibrillation; E11.22 Type 2 diabetes mellitus with diabetic chronic kidney disease; J44.9 Chronic obstructive pulmonary disease, unspecified; G47.33 Obstructive sleep apnea (adult) (pediatric); G47.00 Insomnia, unspecified; E87.5 Hyperkalemia; N18.3 Chronic kidney disease, stage 3 (moderate); H10.9 Unspecified conjunctivitis; R53.81 Other malaise; E78.5 Hyperlipidemia, unspecified; F32.9 Major depressive disorder, single episode, unspecified; F17.210 Nicotine dependence, cigarettes, uncomplicated; I69.320 Aphasia following cerebral infarction; R62.7 Adult failure to thrive; Z53.09 Procedure and treatment not carried out because of other contraindication; Z93.3 Colostomy status; Z93.1 Gastrostomy status; Z95.5 Presence of coronary angioplasty implant and graft; Z90.49 Acquired absence of other specified parts of digestive tract; Z79.01 Long term (current) use of anticoagulants; Z79.4 Long term (current) use of insulin; Z79.899 Other long term (current) drug therapy; Z95.810 Presence of automatic (implantable) cardiac defibrillator; Z86.74 Personal history of sudden cardiac arrest; Z87.891 Personal history of nicotine dependence

== ENCOUNTER → 2020-03-27 | Outpatient (CLI) | payer MEDICARE, MEDICAID ==
[~2020-03-27] MED LIST changes: +ACET-683 PO; +CIPR500T3 PO; +FERR240T PO; +FLAG500T PO; +SODI325T9 PO; +TIGA300C2 PO
--- NOTE | 2020-04-10 15:30 | IPNPDOC ---
Text Note Date of Service The patient was seen on 04/10/20. He was resting in bed, his SO, Tram was present. He appeared gaunt, exhausted and making conversation was an effort. Tram reported he has a PICC line for TPN as new feeding tube could not be placed due to "mushroom shaped mass". Tram stated she is trying to encourage him to eat and drink. She stated Trever has expressed he wants the feeding tube out and she has told him that can only happen if he eats and drinks. Her impression is that he will improve on TPN and regain strength. Trever voided about 50 cc tea colored urine via urinal and reported he felt as though he still has urine in his bladder. He does have some suprapubic fullness on exam. He appears cachectic, is sedated. Tram stated he has not been complaining about pain. I asked Tram if she and Trever had reviewed [facility] yet; she stated they had not "but we plan to". I will try to see Trever and Tram again Next Monday or Monday. Tram [employer] Apr 10, 2020 15:30
== END ==
LOC: M RAD 09:00 → EEVIPCON 16:30
DX: K65.1 Peritoneal abscess (principal)